=== PATIENT | female | born 1975 | race Caucasian/White ===

== ENCOUNTER 2018-07-02 19:15 | Emergency (ER) | payer MEDICAID, SELFPAY ==
[2018-07-02 19:15] VITALS: BP 89/65; PULSE 103; RESP 16; TEMP 36.8; O2SAT 99; BMI 27.4
[2018-07-02] MEDS: Ondansetron 4 MG/2 ML Vial IV (19:43)
[2018-07-02] MEDS: 0.9% Normal Saline 1,000 ML 1000 ML IV (19:43)
[2018-07-02] MEDS: Ketorolac 30 MG/ML Syringe IV (19:44)
[2018-07-02] MEDS: Dicyclomine 10 MG Capsule 20 MG PO (19:45)
[2018-07-02] MEDS: Fluconazole 100 MG Tablet 150 MG PO (19:46)
[2018-07-02 19:48] LABS: Absolute Lymphocyte Count 2.18 X10^3/ul (0.83-4.51); Absolute Neutrophil Count 13.1 X10^3/uL (2.0-7.7); Basophil# 0.05 X10^3/uL; Basophil% 0.3 % (0-1); Eosinophil# 0.97 X10^3/uL; Eosinophils% 5.5 % (0-5); Hemoglobin 12.2 g/dl (12.0-15.0); Lymphocyte # 2.18 X10^3/ul (4.0); Lymphocyte % 12.3 % (19-41); Mean Corp Hgb Conc 32.1 g/gl (32-36); Mean Corpuscular Hgb 29.7 pg (27.0-32.0); Mean Corpuscular Volume 92.5 fL (81-99); Mean Platelet Vol. 9.8 fl (6.2-12.0); Monocyte# 1.43 X10^3/uL; Monocyte% 8.1 % (0-10); Neutrophil # 13.09 X10^3/uL (2.7-7.7); Neutrophil % 73.6 % (47-70); POSITIVE COUNT NO; POSITIVE DIFFERENTIAL NO; POSITIVE MORPHOLOGY NO; Platelet Count 401 K/mm3 (150-450); RBC Distribution Width CV 14.9 % (11.6-14.6); RBC Distribution Width SD 50.6 fl (35.1-43.9); Red Blood Count 4.11 M/mm3 (4.2-5.4); White Blood Count 17.8 K/mm3 (4.4-11.0)
[2018-07-02 20:00] LABS: AST(SGOT) 16 U/L (15-37); Alanine Aminotransfer ALT/SGPT 25 U/L (13-56); Albumin, Serum 3.5 g/dL (3.2-5.0); Alkaline Phosphatase 103 U/L (45-117); Anion Gap 13 (5-15); BUN 8 mg/dL (7-18); BUN/Creat Ratio 8.2 RATIO (10-20); Bilirubin, Direct 0.12 mg/dL (0.00-0.30); Calcium,Total 8.5 mg/dL (8.5-10.1); Chloride 98 mmol/L (98-107); Creatinine, Serum 0.97 mg/dL (0.55-1.02); EST Glomerular Filtration Rate 67 mL/min (>60); Est Glom Filt Rate - Afr Amer 81 mL/min (>60); Globulin 3.6 g/dL (2.2-4.2); Glucose 85 mg/dL (74-106); Lipase 70 U/L (73-393); Potassium 3.5 mmol/L (3.5-5.1); Protein, Total 7.1 g/dL (6.4-8.2); Sodium Level 133 mmol/L (136-145)
[2018-07-02 20:20] LABS: Pregnancy, Serum, hCG Quali. NEGATIVE Negative (0-9 Nonpreg)
[2018-07-02 20:27] VITALS: BP 91/55; PULSE 86; RESP 18; O2SAT 99
[2018-07-02 20:41] VITALS: BP 108/85; PULSE 75; RESP 17; O2SAT 99
--- NOTE | 2018-07-02 20:48 | ED.VISSUMM ---
- ER Visit Summary Date of Service: 07/02/18 Chief Complaint: Abdominal pain History of Present Illness: The patient is a [address] Cohen and Vimal Tarango for pain management. She reports that she has had epigastric abdominal pain for approximately 1 year. States that it increased a week ago and is much worse since yesterday. Is a sharp pain is 10 out of 10 at worst a 10 currently. Is worsened by movement relieved by remaining still. She taken ibuprofen without relief. She has had nausea without vomiting. No diarrhea. Last bowel was yesterday. She has had no melena or hematochezia. No dysuria or frequency. Her last menstrual period was 1 week ago. Patient also reports that she has vaginal itching and believes that she has a yeast infection. She has not been on antibiotics recently. She does not douche. She denies any discharge. States that she has had these multiple times in the past. Physical Examination: Vitals: Stable. Afebrile. General: Well-nourished and well-developed. Head: Normocephalic atraumatic. Neck: Supple, no lymphadenopathy. No JVD. Nontender. Cardiovascular: Regular rate and rhythm. No murmurs. Respiratory: No respiratory distress. Clear to auscultation bilaterally. Abdominal: Soft, nontender, nondistended, normal bowel sounds. No guarding, rebound, or peritoneal signs. Back: Nontender. Extremities: Nontender, no edema. Skin: Normal color, no rash. Neurologic: Alert and oriented ?3. Cranial nerves II through XII are intact. Normal strength and sensation. Psych: Normal affect. Test Results: CBC is marked for a white count of 17.8 with 74 segmented neutrophils and 12 lymphocytes. Reviewing her labs she often has an elevated white count. Chem-7 is more for sodium 133. LFTs normal. Lipase negative. test is negative. Emergency Department Course and Treatment: Patient was treated with Bentyl, Toradol, Zofran, and Diflucan. She is resting comfortably. Treatment Plan: Patient be discharged instructions to follow-up with her primary care physician 1-2 days not improving. She believes that this is due to the mesh from a ventral hernia repair approximately 10 years ago. Return to the emergency department for any worsening symptoms. Disposition: To home in improved and stable condition. Impression: 1. Abdominal pain, uncertain cause. This note was generated with [employer] dictation software. It may contain incorrect words, spelling, and punctuation that were not noted in review of the chart prior to signing ED Disposition - Plan for ED Patient: Disposition: Home or Assisted Living Chief Complaint: Abd Pain Instructions: ED Abdominal Pain Unkn Cause Prescriptions: Ondansetron [Zofran Odt] 4 mg PO Q8H PRN PRN #10 tablet PRN Reason: Nausea Dicyclomine HCl [Bentyl] 20 mg PO TIDAC #20 capsule Referrals: Martinez Cohen MD [Primary Care Provider] - 1-2 Days if not improving
[2018-07-02 21:05] VITALS: BP 108/85; PULSE 75; RESP 17; O2SAT 99
== END 2018-07-02 21:06 | disposition home or self-care (01) ==
LOC: ED 19:46
PROVIDERS: Emergency Provider Emergency Medicine; Family Provider Family Medicine; PCP Family Medicine
DX: R10.13 Epigastric pain (principal); R11.0 Nausea; J44.9 Chronic obstructive pulmonary disease, unspecified; I10 Essential (primary) hypertension; E78.00 Pure hypercholesterolemia, unspecified; M54.9 Dorsalgia, unspecified; G89.29 Other chronic pain; F17.210 Nicotine dependence, cigarettes, uncomplicated; F32.9 Major depressive disorder, single episode, unspecified
CPT/HCPCS: 80048; 80076; 83690; 84703; 85025; 96361; 96374; 96375; 99284; J7030; A4216; J2405

== ENCOUNTER 2018-07-04 18:58 | Emergency (ER) | payer MEDICAID, SELFPAY ==
[2018-07-04 18:58] VITALS: BP 122/58; PULSE 100; RESP 16; TEMP 36.7; O2SAT 100; BMI 28.7
[2018-07-04 19:54] LABS: Bacteria 0 SEEN /hpf (None Seen); Mucous, Urine 0 SEEN /hpf (<or=2+)
[2018-07-04 19:57] LABS: Color, Urine Yellow (Yellow); Glucose, Dipstick Normal (Normal); Ketone-Dipstick Negative (Negative); Leukocyte Esterase-Dipstick 500 /ul (Negative); Nitrite-Dipstick Negative (Negative); Occult Blood-Urine 25 /ul (Negative); Protein-Dipstick Negative (Negative); Urine Bilirubin Dipstick Negative (Negative); Urine Urobilinogen Normal (Normal); Urine pH 6.5 (5.0 - 8.0)
[2018-07-04 20:02] LABS: Internal QC Validated? YES +Cl - CLEAR BKGD; Pregnancy, Urine Negative Negative
[2018-07-04 20:12] LABS: Red Blood Cells-Urine 0-5 SEEN /hpf (0-5); Squamous Epithelial Cells - UA 0-5 SEEN /hpf (5-10); White Blood Cells 5-10 SEEN /hpf (0-5)
[2018-07-04 20:13] LABS: Urine Clarity Sl Cldy (Clear)
[2018-07-04 21:24] LABS: Chlamydia Trachomatis by PCR Negative (Negative); Neisserai gonorrhoeae by PCR Negative (Negative); Probe Check PASS; Sample Adequacy Control PASS; Specimen Processing Control PASS
--- NOTE | 2018-07-04 21:33 | ED.RN ---
RESULT OF POSITIVE TRICHOMONAS REPORTED TO . VERBALIZED UNDERSTANDING
--- NOTE | 2018-07-04 21:35 | ED.VISSUMM ---
- ER Visit Summary Date of Service: 07/04/18 Chief Complaint: Vaginal discharge History of Present Illness: The patient is a 43 F who presents for vaginal discharge. She was seen in this emergency department several days ago and treated for presumed yeast infection. She said she has been taking topical medication and recently took Diflucan. Her symptoms have persisted. She is concerned for a sexually transmitted infection. She has a history of chlamydia. She also reports some abdominal cramping. Denies fever or systemic symptoms. Physical Examination: Patient is afebrile and vital signs are unremarkable. Nontoxic and in no acute distress. Abdomen soft and nontender. No guarding or rebound. Pelvic exam was chaperoned by the RN. She had a scant thin vaginal discharge. No bleeding or lesions noted. Test Results: Urinalysis showed elevated leukocytes and 5-10 white cells. No bacteria. test was negative. Urine culture pending. Gonorrhea and chlamydia pending. Patient did test positive for trichomonas. Emergency Department Course and Treatment: Patient will be treated with Flagyl to cover trichomonas. She also received Macrobid to cover for urinary tract infections. She has multiple antibiotic allergies including penicillins, cephalosporins, macrolides, and doxycycline. We will wait for the cultures to come back before adding additional antibiotic therapy. Patient voiced understanding and agreement with this plan. Safe sex practices discussed. Patient's partner will be treated as well. Treatment Plan: Above Disposition: Discharged Impression: 1. Vaginal discharge 2. Trichomoniasis This note was generated with [employer] dictation software. It may contain incorrect words, spelling, and punctuation that were not noted in review of the chart prior to signing ED Disposition - Plan for ED Patient: Chief Complaint: Complaint Referrals: Martinez Cohen MD [Primary Care Provider] -
[2018-07-04] MEDS: metroNIDAZOLE 500 MG Tablet 2000 MG PO (21:39)
[2018-07-04] MEDS: Nitrofurantoin Macrocrystals 100 MG Capsule PO (21:39)
--- NOTE | 2018-07-04 21:39 | ED.DEP ---
ED Disposition - Plan for ED Patient: Chief Complaint: Complaint Instructions: Vaginal Infection: Trichomoniasis Prescriptions: Nitrofurantoin Macrocrystals [Macrobid] 100 mg PO Q12 #10 cap Referrals: Martinez Cohen MD [Primary Care Provider] -
[2018-07-04 21:42] VITALS: RESP 16
== END 2018-07-04 21:42 | disposition home or self-care (01) ==
PROVIDERS: Emergency Provider Emergency Medicine; Family Provider Family Medicine; PCP Family Medicine
DX: N89.8 Other specified noninflammatory disorders of vagina (principal); A59.9 Trichomoniasis, unspecified; R30.0 Dysuria; Z72.0 Tobacco use
CPT/HCPCS: 81001; 81025; 87086; 87210; 87491; 87591; 99283

== ENCOUNTER 2018-11-20 18:27 | Emergency (ER) | payer MEDICAID, SELFPAY ==
[2018-11-20 18:28] VITALS: BP 104/72; PULSE 108; RESP 17; TEMP 36.8; O2SAT 98; BMI 25.4
[2018-11-20] MEDS: Acetaminophen 500 MG Tablet 1000 MG PO (20:11)
--- NOTE | 2018-11-20 20:24 | RAD_ITS ---
STUDY: X-RAY - LUMBAR SPINE REASON FOR EXAM: Female, 43 years old. Low back pain. TECHNIQUE: 2 view(s) of the lumbar spine were obtained. COMPARISON: 03/12/2015. FINDINGS: Normal lumbar lordosis. There is no substantial scoliosis. There is a normal alignment of the vertebrae. Normal vertebral bodies and endplates. Normal disc space heights. The soft tissue structures are unremarkable. RAD/Lumbar Spine 2 or 3 Views IMPRESSION: Normal x-ray examination of the lumbar spine. Electronically Signed: Camila Pineda MD at 21:20 EST Tel , Service support ,
--- NOTE | 2018-11-20 21:29 | ED.VISSUMM ---
- ER Visit Summary Date of Service: 11/20/18 Chief Complaint: Back pain History of Present Illness: The patient is a 43 F who presents with back pain that began yesterday. Patient states she had a fall recently and landed on her back. Patient states the pain is gradually gotten worse. Patient describes the pain as sharp, stabbing, and burning. Patient states the pain is worse with coughing. Patient states the pain does radiate to her right lower abdomen. Patient denies any nausea or vomiting. Patient denies any bowel or bladder changes. Patient denies any saddle anesthesia. Physical Examination: Vital signs are stable. Patient is afebrile. Patient is in no acute distress. Musculoskeletal exam reveals tenderness over the lumbar spine and paraspinal muscles. Range of motion was limited secondary to pain. Strength is 5/5 bilaterally upper and lower extremities. There are no sensory deficits noted. Deep tendon reflexes are 2+/4 bilaterally. Heart was regular rate and rhythm. Lungs are clear and equal bilateral. Abdomen is soft. Bowel sounds are normal. There is no tenderness. There is no guarding noted. Test Results: X-rays of the lumbar spine were obtained. There is no acute fracture or spondylolisthesis. Emergency Department Course and Treatment: Patient was given a dose of Flexeril here. She was given prescriptions for Naprosyn and Flexeril. Patient was instructed to follow-up with her primary care physician in 5-7 days. Patient understood and was agreeable with the plan. All questions were answered. Disposition: Discharge home Impression: Lumbar strain This note was generated with [employer] dictation software. It may contain incorrect words, spelling, and punctuation that were not noted in review of the chart prior to signing ED Disposition - Plan for ED Patient: Disposition: Home or Assisted Living Chief Complaint: Back Diagnosis: Lumbar strain Instructions: ED Sprain Strain Lumbar Prescriptions: Cyclobenzaprine [Flexeril] 10 mg PO QHS PRN PRN #10 tab PRN Reason: Muscle Spasm Naproxen [Naprosyn] 500 mg PO BID PRN #20 tab Referrals: Martinez Cohen MD [Primary Care Provider] -
[2018-11-20 22:08] VITALS: BP 120/88; PULSE 75; RESP 18; O2SAT 98
== END 2018-11-20 22:08 | disposition home or self-care (01) ==
PROVIDERS: Emergency Provider Emergency Medicine; Family Provider Family Medicine; PCP Family Medicine
DX: S39.012A Strain of muscle, fascia and tendon of lower back, initial encounter (principal); W19.XXXA Unspecified fall, initial encounter; Y93.9 Activity, unspecified; Y92.89 Other specified places as the place of occurrence of the external cause; Y99.9 Unspecified external cause status; I25.10 Atherosclerotic heart disease of native coronary artery without angina pectoris; F32.9 Major depressive disorder, single episode, unspecified; F17.210 Nicotine dependence, cigarettes, uncomplicated
CPT/HCPCS: 72100; 99283

== ENCOUNTER 2019-03-28 20:36 | Emergency (ER) | payer MEDICAID, SELFPAY ==
[2019-03-28 20:37] VITALS: BP 134/79; PULSE 80; RESP 16; TEMP 37.4; O2SAT 98; BMI 24.7
--- NOTE | 2019-03-28 20:42 | EKG12_ITS ---
Test Reason : CP Blood Pressure : / mmHG Vent. Rate : 087 BPM Atrial Rate : 087 BPM P-R Int : 132 ms QRS Dur : 090 ms QT Int : 368 ms P-R-T Axes : 050 026 051 degrees QTc Int : 442 ms Normal sinus rhythm Normal ECG Confirmed by RAJANI GREEN ([id number]), food editor SAMANTHA STORY ([id number]) on 04/05/2019 8:56:18 AM Referred By: ROCHELLE Confirmed By:RAJANI GREEN
--- NOTE | 2019-03-28 20:42 | RAD_ITS ---
STUDY: X-RAY CHEST REASON FOR EXAM: Female, 44 years old. Chest pain TECHNIQUE: Single AP portable view of the chest. COMPARISON: October 27, 2017 FINDINGS: The lungs are clear and expanded. There is no demonstrated pleural abnormality. Normal size heart. Normal mediastinum and filomena. Normal visualized pulmonary arteries. Normal visualized aortic arch and descending thoracic aorta. Normal visualized thoracic spine. Normal visualized ribs, clavicles, and shoulders. There is no demonstrated abnormality of the visualized soft tissue structures of the upper abdomen. RAD/Chest 1 View (Portable) IMPRESSION: Normal x-ray examination of the chest. Electronically Signed: Angel Luis Daley MD at 21:21 EDT , Service support ,
[2019-03-28 20:52] VITALS: O2SAT 100
[2019-03-28 21:08] LABS: Absolute Lymphocyte Count 4.11 X10^3/ul (0.83-4.51); Absolute Neutrophil Count 6.7 X10^3/uL (2.0-7.7); Basophil# 0.06 X10^3/uL; Basophil% 0.5 % (0-1); Eosinophil# 0.27 X10^3/uL; Eosinophils% 2.2 % (0-5); Hematocrit 37.9 % (37-47); Hemoglobin 12.4 g/dl (12.0-15.0); Lymphocyte # 4.11 X10^3/ul (4.0); Lymphocyte % 33.9 % (19-41); Mean Corp Hgb Conc 32.7 g/gl (32-36); Mean Corpuscular Hgb 27.7 pg (27.0-32.0); Mean Corpuscular Volume 84.6 fL (81-99); Mean Platelet Vol. 9.7 fl (6.2-12.0); Monocyte# 0.92 X10^3/uL; Monocyte% 7.6 % (0-10); Neutrophil # 6.74 X10^3/uL (2.7-7.7); Neutrophil % 55.6 % (47-70); Platelet Count 405 K/mm3 (150-450); RBC Distribution Width CV 16.1 % (11.6-14.6); RBC Distribution Width SD 49.6 fl (35.1-43.9); Red Blood Count 4.48 M/mm3 (4.2-5.4); White Blood Count 12.1 K/mm3 (4.4-11.0)
[2019-03-28 21:09] LABS: POSITIVE COUNT NO; POSITIVE DIFFERENTIAL NO; POSITIVE MORPHOLOGY NO
[2019-03-28 21:19] LABS: Anion Gap 5 (5-15); BUN 6 mg/dL (7-18); BUN/Creat Ratio 7.2 RATIO (10-20); Chloride 108 mmol/L (98-107); Creatinine, Serum 0.83 mg/dL (0.55-1.02); EST Glomerular Filtration Rate 80 mL/min (>60); Est Glom Filt Rate - Afr Amer 96 mL/min (>60); Estimated Creatinine Clearance 69.12 ml/min; Glucose 84 mg/dL (74-106); Potassium 3.6 mmol/L (3.5-5.1); Sodium Level 139 mmol/L (136-145)
[2019-03-28 21:40] VITALS: BP 145/117; PULSE 73; RESP 13; O2SAT 100
[2019-03-28 21:43] VITALS: BP 127/80
--- NOTE | 2019-03-28 21:43 | ED.VISSUMM ---
- ER Visit Summary Date of Service: 03/28/19 Chief Complaint: Chest pain History of Present Illness: The patient is a 44 F who presents with chest pain that began yesterday. Patient states the pain waxes and wanes. Patient states the pain radiates to the left side of her neck and into her left shoulder and to her left wrist. Patient states she has some shortness of breath with exertion. Patient admits to some palpitations and some nausea. Patient denies any vomiting. Patient denies any diaphoresis. Patient denies any fevers or chills. Patient has a history of hypertension, hypercholesterolemia, and a family history of coronary artery disease. Patient is a smoker. Patient has a history of pre-cervical cancer. Physical Examination: Vital signs are stable. Patient is afebrile. Patient is in no acute distress. Oral mucosa is pink and moist. Neck is supple. Trachea is midline. There is no JVD noted. Heart was regular rate and rhythm. Lungs are clear and equal bilateral. Abdomen is soft. Bowel sounds are normal. There is no tenderness. There is no guarding noted. Skin is warm dry. Cranial nerves II through XII are intact. There are no focal motor or sensory deficits noted. The remaining physical exam is within normal limits. Test Results: EKG showed normal sinus rhythm with a rate of 87. There are no acute ST or T wave changes. This is unchanged compared to previous EKG dated 10/27/2017. Portable chest x-ray does not show any acute cardiopulmonary process. CBC shows a mild leukocytosis of 12.1. Basic metabolic profile was normal. Troponin was normal. D-dimer was obtained and was normal. Emergency Department Course and Treatment: Patient was given aspirin. Patient has a HEART score of 3. Patient was advised that this is low risk for acute cardiac event. Patient was instructed to follow-up with her primary care physician in 5 to 7 days for further evaluation. Patient understood and was agreeable with the plan. All questions were answered. Disposition: Discharge home Impression: Chest pain This note was generated with [employer] dictation software. It may contain incorrect words, spelling, and punctuation that were not noted in review of the chart prior to signing ED Disposition - Plan for ED Patient: Disposition: Home or Assisted Living Diagnosis: Chest pain of uncertain etiology Instructions: ED Chest Pain Atypical Unkn Cause Referrals: Martinez Cohen MD [Primary Care Provider] - 5-7 Days
[2019-03-28 21:44] VITALS: BP 96/78; PULSE 82; RESP 16; O2SAT 100
[2019-03-28] MEDS: Aspirin 81 MG TAB.CHEW 324 MG PO (21:59)
[2019-03-28 22:16] LABS: D-Dimer Quantitative (DVT/PE) < 0.27 FEU/ug/m (0.27-0.49)
[2019-03-28 23:25] VITALS: BP 126/86; PULSE 80; RESP 12; O2SAT 99
== END 2019-03-28 23:27 | disposition home or self-care (01) ==
PROVIDERS: Emergency Provider Emergency Medicine; Family Provider Family Medicine; PCP Family Medicine
DX: R07.9 Chest pain, unspecified (principal); R51 Headache; M54.2 Cervicalgia; R05 Cough; R06.00 Dyspnea, unspecified; I10 Essential (primary) hypertension; E78.00 Pure hypercholesterolemia, unspecified; F17.210 Nicotine dependence, cigarettes, uncomplicated; Z82.49 Family history of ischemic heart disease and other diseases of the circulatory system
CPT/HCPCS: 71045; 80048; 84484; 85025; 85379; 93005; 99284; A4216

== ENCOUNTER 2019-04-12 06:53 | Day surgery (SDC) | payer MEDICAID, SELFPAY ==
--- NOTE | 2019-03-28 10:43 | HP.PCM_ITS ---
Problem List (1) Abnormal uterine bleeding (AUB) Status: Acute (2) Endometrium, polyp Status: Acute History and Physical Date of Admission: 04/12/19 Carla Win Physician [employer]ITOR H&P Signed Encounter Date: 03/28/2019 Expand All Collapse All Hide copied text Dinesh for details Bev Webb is a 44 year old female who presents for AUB. Pt was seen by Dr. Celis- w/u done for AUB- bleeding/spotting consistently. Found to have two large endometrial polyps. Pt would like to proceed with removal of polyps with Hysteroscopy, D&C with polypectomy using Symphion. Pt denies concerns today- denies CP, SOB, Dizziness. ? PAST?MEDICAL?HISTORY PAST MEDICAL HISTORY Diagnosis Date ? Abnormal mammogram, unspecified ? ? LEFT BREAST ? Abnormal Pap smear and cervical HPV (human papillomavirus) ? ? CAD (coronary artery disease) 2103 ? diffuse moderate CAD in the left main and RCA-40-50%, seeing Dr. Chase ? Chronic cholecystitis 08/24/07 ? Chronic depressive personality disorder ? ? Chronic gastric ulcer without mention of hemorrhage, perforation, without mention of obstruction ? ? Generalized anxiety disorder ? ? HTN (hypertension) ? ? Hyperlipidemia ? ? Incisional hernia without mention of obstruction or gangrene ? ? Irritable bowel syndrome ? ? Lumbago ? ? PONV (postoperative nausea and vomiting) ? ? Tobacco abuse ? ? PAST?SURGICAL?HISTORY PAST SURGICAL HISTORY Procedure Laterality Date ? APPENDECTOMY ? ? ? EGD W/O OR W/BRUSH/WASH ? 09/26/12 ? EGD ? ENDOMETRIAL BIOPSY ? 01/01/2009 ? Menorrhagia ? EXCIS BREAST LES W XRAY MARKER ? 08-29-09 ? left breast ? HEART CATHETERIZATION ? 2013 ? LAP CHOLECYSTECT/CHOLANGIOGRAPHY ? 08/24/07 ? LAPAROSCOPY, SURGICAL, APPENDECTOMY ? ? ? LIGATE FALLOPIAN TUBE ? ? ? PREOP PLACEMENT NEEDLE LOC ? 08-29-09 ? left breast ? REPAIR INCIS HERNIA W MESH ? 07/01/08 ? REPAIR INCISIONAL HERNIA,REDUCIBLE ? 07/01/08 ? REPAIR OF NASAL SEPTUM ? 2001 +/- ? Akhil ? STEREOTACTIC CORE BIOPSY ? 07/09/09 ? LEFT BREAST ? FAMILY?HISTORY FAMILY HISTORY Problem Relation Age of Onset ? Hypertension Mother ? ? Diabetes Mother ? ? Alcohol/Drug Father ? ? (cardiac issues from this) ? Diabetes Father ? ? Allergies Father ? ? Coronary Artery Disease Maternal Grandmother ? ? Diabetes Sister ? ? Diabetes Brother ? ? Colon Cancer Other ? ? mom with polyps ? SOCIAL?HISTORY Social History Socioeconomic History Marital status: Spouse name: Dariel Number of children: Stew Years of education: 12 Highest education level: Not on file Social Needs Financial resource strain: Not on file Food insecurity - worry: Not on file Food insecurity - inability: Not on file Transportation needs - medical: Not on file Transportation needs - non-medical: Not on file Occupational History Occupation: not employed Tobacco Use Smoking status: Current Every Day Smoker Packs/day: 1.00 Years: 15.00 Pack years: 15 Types: Cigarettes Smokeless tobacco: Never Used Tobacco comment: started age 16 Substance and Sexual Activity Alcohol use: No Drug use: Yes Types: Marijuana Sexual activity: Yes Partners: Male control/protection: Tubal Ligation Other Topics Concerns: Not on file Social History Narrative Not on file ? CURRENT?MEDICATIONS ? Current Outpatient Medications: norethindrone (AYGESTIN) 5 mg tablet Take 1 tablet by mouth three times daily. cyclobenzaprine (FLEXERIL) 10 mg tablet Take 1 tablet by mouth three times daily as needed. venlafaxine (EFFEXOR) 75 mg tablet TAKE ONE (1) TABLET IN THE MORNING AND TWO (2) TABLETS AT NIGHT potassium chloride ER (KLOR-CON M20) 20 mEq tablet Take 1 tablet by mouth once daily. amLODIPine (NORVASC) 5 mg tablet Take 1 tablet by mouth once daily. atorvastatin (LIPITOR) 40 mg tablet Take 1 tablet by mouth once daily. aspirin, enteric coated (ASPIRIN, ENTERIC COATED) 81 mg EC tablet Take 1 tablet by mouth once daily. nitroglycerin sublingual (NITROQUICK) 0.4 mg SL tablet Dissolve 1 tablet under the tongue every 5 minutes as needed for Chest Pain. albuterol HFA (VENTOLIN HFA) 90 mcg/actuation inhaler Inhale 2 Puffs as instructed every 4 hours as needed. For wheezing/shortness of breath. pantoprazole DR (PROTONIX) 40 mg tablet TAKE 1 TABLET BY MOUTH ON AN EMPTY STOMACH 1/2 HOUR BEFORE A MEAL TWICE DAILY cetirizine hcl(ZYRTEC 10 MG TAB) Take one(1) tablet daily. ibuprofen (MOTRIN) 600 mg tablet Take 1 tablet by mouth every 6 hours as needed. FOR PAIN. nicotine polacrilex (NICORETTE) 2 mg gum Take 1 Each by mouth every 2 hours as needed. 10-12 per day, max 24 / day busPIRone (BUSPAR) 10 mg tablet TAKE 1 TABLET BY MOUTH TWICE DAILY. ? No current facility-administered medications for this visit. Allergies As of Date: 03/28/2019 Allergen Noted Reaction DOXYCYCLINE 08/16/2006 ENTEX [PHENYLEPHRINE-GUAIFENESIN] 10/20/2006 ERYTHROMYCIN 08/16/2006 Shortness of Breath FLEXERIL [CYCLOBENZAPRINE HCL] 10/08/2011 Cough OMNICEF [CEFDINIR] 07/11/2014 GI Upset PENICILLIN G 08/16/2006 Intolerance RISPERDAL [RISPERIDONE] 08/16/2006 Swelling ULTRAM [TRAMADOL HCL] 08/16/2006 Swelling VALTREX [VALACYCLOVIR HCL] 08/16/2006 Rash ? Fully Assessed 03/28/2019 ? ? REVIEW OF SYSTEMS Abdomen: no pain Bladder: no dysuria.. Expanded ROS: GENERAL: Negative for fever Allergies and current medication updated:Yes ? EXAM: BP 100/60 Ht 5' 2.5 (1.59m) Wt 135 lb (61.2kg) LMP 03/23/2019 BMI 24.28 kg/(m^2). ? GENERAL: pleasant, female in no apparent distress HEENT: Normocephalic, atraumatic, mucus membranes moist and no lesions NECK: full range of motion DERMATOLOGY: Normal, without lesions, non-icteric and non-hirsute CARDIAC: regular rate and rhythm CHEST: Clear to auscultation Normal inspiratory effort NEURO: alert and oriented x3,exam grossly non-focal EXTREMITIES: normal ? Report Summary: Overall impression: uterus normal size. two small fibroids appreciated- 2.7 in greatest dimension appears to be posterior and subserosal, the other appears fundal and intramural measuring 3.2cm in greatest dimension. There are two endometrial polyps noted but appear at fundal aspect The endometrial thickness is 13.6mm. Right ovary has a simple cyst measuring 4.7mm in greatest dimension. Left ovary appears normal No free fluid in CDS. Recommendations / therapy: Consider hysteroscopic resection of polyps Simple cyst <5cm - unless she is symptomatic follow up is not necessary. Follow- up: F/u as clinically indicated. Indication: Abnormal Uterine Bleeding. History: Last menstrual period: 03/02/2019. 15th day of cycle. Gynecological Ultrasonography: Uterus: normal, anteverted. Size: Longitudinal 78 mm. Anterio- posterior 50 mm. Transverse 67 mm. Volume: 136.8 ml. Fibroids: Fibroid 1: Size: 32 mm x 26 mm x 27 mm. Type: anterior. Position: right fundus. Fibroid 2: Size: 27 mm x 21 mm x 24 mm. Type: posterior. Position: fundus. Endometrium: endometrium clearly visualized. Endometrium thickness total: 13.6 mm. Endometrial polyps: 2 polyps visualized. Polyp 1: 11 mm x 9 mm x 14 mm. Fundal. Polyp 2: 11 mm x 9 mm x 12 mm. Fundal. Right Ovary: normal. Visible. Morphology: normal morphology. Right Ovary size: 40 mm x 30 mm x 25 mm. Volume: 15.7 ml. Cysts Right Ovary: Cyst 1: Mean value: 29 mm. D1: 47 mm. D2: 20 mm. D3: 21 mm. Volume: 10 ml. Simple cyst. Left Ovary: normal. Visible. Morphology: normal morphology. Left Ovary size: 40 mm x 17 mm x 19 mm. Volume: 6.8 ml. Method: transvaginal ultrasound, color Doppler, 2 D, 3 D. Performed by:Krista Davila RDMS Read by:Carla Lacey MD ? ASSESSMENT AND PLAN: Encounter Diagnosis ? ? ICD-10-CM ? 1. Abnormal uterine bleeding (AUB) N93.9 ? 2. Endometrial polyp N84.0 ? ? 3. Consent obtained today for hysteroscopy, D&C, polypectomy with Symphion. Pt has been counseled on risks/benefits and alternatives of surgery including but not limited to anesthesia, bleeding, infection, injury to pelvic structures including bowel, bladder, ureters and vessels. Pt wishes to proceed with surgery at this time. 4. Motrin given for pain post op ? Carla Blanchard MD ?
[2019-04-12] VITALS (7 sets, daily range): BP systolic 120–134; BP diastolic 7–84; PULSE 60–71; RESP 14–18; TEMP 36.4–36.6; O2SAT 95–98; BMI 24.3
[2019-04-12 07:12] LABS: Internal QC Validated? YES +Cl - CLEAR BKGD; Pregnancy, Urine Negative Negative
--- NOTE | 2019-04-12 08:30 | EMB_PTH ---
PATIENT: IVAN JUDD LOC: [facility] U#:[id number] AGE/SX: 44/F ROOM: RE04/12/[address]: Dr. Carla Blanchard, MDDOB: 1975 BED: DIS: 04/12/2019 SPEC #: [id number] RECD: 04/12/19 10:48 STATUS: CLARK ANGEL #: [id number] HERIBERTO: 04/12/19 08:[address]: Carla Blanchard DEPT: SURGICAL PATHOLOGY RECD BY: Pablito Lindquist ENTERED: 04/12/19 13:33 SP TYPE: ENDOM BX/C OTHR DR: Dr. Martinez Cohen MD Tissues: Endometrium, NOS Procedures: Surgery Specimen Level IV HEADER OPERATION: Hysteroscopy, D&C Symphion, polypectomy PRE-OP DIAGNOSIS: Abnormal uterine bleeding, endometrial polyp TISSUE SUBMITTED: Endometrial curettings and polyp MICROSCOPIC DIAGNOSIS Endometrial curettings and polyp: Simple endometrial hyperplasia without atypia with focal glandular and stromal breakdown. RAFI:joo 04/13/19 MICROSCOPIC DESCRIPTION Slides are reviewed. GROSS DESCRIPTION Received in fixative is one container labeled with the patient's name and designated endometrial curettings and polyp. The specimen consists of multiple irregular fragments of light mo soft tissue that in aggregate measure 2.6 x 2.2 x 0.1 cm. The specimen is totally submitted in one cassette. / AM:joo 04/12/19 TC:5 CPT: 44013
--- NOTE | 2019-04-12 09:31 | PCM.OPRPT ---
Problem List (1) Abnormal uterine bleeding (AUB) Status: Acute (2) Endometrium, polyp Status: Acute Report of Operation Date of Procedure: 04/12/19 Pre-Operative Diagnosis: AUB, endometrial polyp Post-Operative Diagnosis: same Surgery/Procedure Performed:: Hysteroscopy, D&C, Polypectomy with Symphion Description of Surgical Findings:: Multiple small endometrial polyps noted. No other gross abnormalities of cavity. bilatera Tubal ostia visualized. Type of Anesthesia:: MAC Special Medications: none Specimen's removed: endometrial curettage, endometrial polyps Drains: none Estimated Blood Loss (mL): <5cc Fluids Replaced: 700 Description of Procedure: pt taken to OR - placed in supine positions. prepped and draped in normal sterile fashion. bladder drained 100cc urine expelled. weighted speculum placed in posterior fornix of vagina. anterior lip of cervix grasped with tenaculum. Uterus sounded to approximately 8cm. Gentle dilation was performed. was adequate dilatation was achieved the hysteroscope placed using normal saline as distention medium. upon inspection multiple small polyps noted- one at each aspect of cornua near ostia and one on left lateral aspect of uterine side wall. Gentle curettage performed using symhion device. No complications. procedure deemed complete and successful. cavity has no other gross abnormalities. Instrument and lap and count were correct x 2. no complications. I anticipate normal post op course. Grafts/Implants Used: none - Complications none - Admit VTE Documentation VTE Present on Admission: Yes VTE Mechan Device Prophylaxis: SCD's VTE Pharm Prophylaxis ordered?: No
--- NOTE | 2019-04-12 09:39 | DCINST_ITS ---
Discharge Diet: No Restrictions Discharge Activity: Return to Normal Activity, May Shower, May Take a Tub Bath - in 2 weeks. Allergies/Adverse Reactions: Allergies doxycycline Allergy (Verified 04/06/19 10:55) Unknown erythromycin base [Erythromycin Base] Allergy (Verified 04/06/19 10:55) Chest tightness Penicillins Allergy (Verified 04/06/19 10:55) Unknown tramadol HCl [From Ultram] Allergy (Verified 04/06/19 10:55) Swelling cefdinir [From Omnicef] Adverse Reaction (Verified 04/06/19 10:55) Other risperidone [From Risperdal] Adverse Reaction (Verified 04/06/19 10:55) Unknown valacyclovir HCl [From Valtrex] Adverse Reaction (Verified 04/06/19 10:55) Nausea Medications to take at Discharge Pantoprazole Sodium [Protonix] 40 mg PO BID 04/09/14 Venlafaxine HCl [Effexor] 75 mg PO TID 04/09/14 Aspirin [Aspirin EC] 81 mg PO DAILY 09/12/14 Potassium Cloride Effervescent [Potassium Cl 25 Meq Tab Eff] 25 meq PO DAILY #30 tablet.eff 03/06/17 cycloBENZAPRine HCl [Flexeril] 10 mg PO QHS PRN PRN #10 tab 11/20/18 Atorvastatin Calcium 40 mg PO QHS 03/28/19 Norethindrone Acetate 5 mg PO BID 03/28/19 Albuterol IH (ProAir) [Proair Hfa (SP)Vent Pts] 1 - 2 puff INHALATION Q6H PRN PRN 04/06/19 Amlodipine [Norvasc] 5 mg PO QHS 04/06/19 Naproxen [Naprosyn] 500 mg PO BID PRN PRN 04/06/19 Primary Care Physician: Martinez Cohen MD [Primary Care Provider] - Test Results: Test results from this visit will be discussed in further detail at your follow- up appointment, if applicable.
[2019-04-12] MEDS: HYDROcodone Bitartrate/Apap 5/325 Tablet PO (10:42)
== END 2019-04-12 11:10 | disposition home or self-care (01) ==
LOC: SDC 06:53 → AC 06:54
PROVIDERS: Anesthesiology; Family Provider Family Medicine; PCP Family Medicine; Referring Provider Obstetrics & Gynecology; Visit Provider Obstetrics & Gynecology
PROC: 0UB98ZZ Excision of Uterus, Via Natural or Artificial Opening Endoscopic (ICD-10-PCS; CPT 58558; principal; 2019-04-12 08:15)
DX: N85.01 Benign endometrial hyperplasia (principal); N93.9 Abnormal uterine and vaginal bleeding, unspecified; N84.0 Polyp of corpus uteri; F17.210 Nicotine dependence, cigarettes, uncomplicated; I10 Essential (primary) hypertension; E78.5 Hyperlipidemia, unspecified; I25.10 Atherosclerotic heart disease of native coronary artery without angina pectoris; F41.1 Generalized anxiety disorder; K58.9 Irritable bowel syndrome, unspecified; J44.9 Chronic obstructive pulmonary disease, unspecified
CPT/HCPCS: 58558; 81025; 88305; J7120

== ENCOUNTER 2019-09-05 11:39 | Emergency (ER) | payer OTHER, MEDICAID, SELFPAY ==
[2019-04-12 07:18] VITALS: BMI 24.3
[2019-09-05 11:39] VITALS: BP 145/79; PULSE 86; RESP 16; TEMP 36.6; O2SAT 98; BMI 25.0
--- NOTE | 2019-09-05 12:09 | ED.VISSUMM ---
- ER Visit Summary Date of Service: 09/05/19 Chief Complaint: Left small finger laceration History of Present Illness: The patient is a 44 F medical history of MIs and depression. Patient is right-hand dominant. She was using a box spring frame builder and lacerated the end of her left small finger on the palmar aspect within the last hour. Unsure of her last tetanus shot she thinks it may be up-to-date wants to check with her primary care physician's office. Denies other injuries. Physical Examination: Middle-aged female no acute distress. Vital signs are stable afebrile. H EENT exam unremarkable. Lungs clear to auscultation. Heart regular rhythm no murmur. Abdomen soft. Extremities moves all 4. Neurovascular intact. Palmar aspect distal end her left small finger there is a 2 and half centimeter laceration that needs repaired. It does gape. There is oozing of blood. No foreign body. No signs of infection. She has full flexion extension of left small finger. Normal touch sensation. No motor or sensory deficits. No bony deformity. Test Results: None Emergency Department Course and Treatment: Procedure note: Left small finger laceration with ER repair. Local anesthetic with lidocaine. Wound explored. Washed and irrigated. Closed using simple interrupted 5-0 Ethilon sutures. Proper hemostasis wound closure was obtained. Patient tolerated procedure well. I placed 4 simple interrupted 5-0 Ethilon sutures. Digital block was performed with good anesthesia. Treatment Plan: Wound care. Suture removal 7 to 10 days. Disposition: Discharge Impression: Left small finger laceration ER repair 2.5 cm. Worker's comp injury This note was generated with [employer] dictation software. It may contain incorrect words, spelling, and punctuation that were not noted in review of the chart prior to signing ED Disposition - Plan for ED Patient: Disposition: Home or Assisted Living Instructions: LACERATION, Hand Referrals: Martinez Cohen MD [Primary Care Provider] - 10 Day for suture removal Additional Instructions: Keep wound clean and dry. Apply antibiotic ointment daily. Watch for any signs of infection such as redness, streaks, swelling or pus. Is seen return. Suture removal in no less than 7 up to 10 days. Tylenol for pain.
--- NOTE | 2019-09-05 12:11 | ED.DEP ---
ED Disposition - Plan for ED Patient: Disposition: Home or Assisted Living Instructions: LACERATION, Hand Referrals: Martinez Cohen MD [Primary Care Provider] - 10 Day for suture removal Additional Instructions: Keep wound clean and dry. Apply antibiotic ointment daily. Watch for any signs of infection such as redness, streaks, swelling or pus. Is seen return. Suture removal in no less than 7 up to 10 days. Tylenol for pain.
[2019-09-05 12:41] VITALS: PULSE 84; RESP 17; O2SAT 97
== END 2019-09-05 12:52 | disposition home or self-care (01) ==
LOC: ED 12:50
PROVIDERS: Emergency Provider Emergency Medicine; Family Provider Family Medicine; PCP Family Medicine
DX: S61.217A Laceration without foreign body of left little finger without damage to nail, initial encounter (principal); W26.8XXA Contact with other sharp object(s), not elsewhere classified, initial encounter; Y93.9 Activity, unspecified; Y92.89 Other specified places as the place of occurrence of the external cause; Y99.0 Civilian activity done for income or pay; Z72.0 Tobacco use; I25.2 Old myocardial infarction; F32.9 Major depressive disorder, single episode, unspecified
CPT/HCPCS: 12001; 99284

== ENCOUNTER 2019-12-04 12:36 | Emergency (ER) | payer MEDICAID, SELFPAY ==
[2019-09-14 16:38] VITALS: BMI 25.0
[2019-12-04 12:37] VITALS: BP 173/105; PULSE 77; RESP 20; TEMP 36.6; O2SAT 100; BMI 25.6
--- NOTE | 2019-12-04 13:01 | CT_ITS ---
STUDY: CT ABDOMEN AND PELVIS WITHOUT CONTRAST REASON FOR EXAM: Female, 44 years old. RT SIDE ABD PAIN RADIATES INTO FLANK. H/O APPY, LUKE RADIATION DOSAGE (If Supplied By Facility): CTDIvol = ( 6.09 ) mGy, DLP = ( 290.73 ) mGycm TECHNIQUE: Transaxial images were obtained from the dome of the diaphragm to the symphysis pubis without oral contrast, and without intravenous contrast. Sagittal and coronal images were reconstructed. Individualized dose optimization techniques were used for this CT. COMPARISON: Comparison is made with prior study dated August 13, 2012. FINDINGS: The visualized lung bases are unremarkable. The visualized portions of the heart are within normal limits. Normal liver. The patient is status post cholecystectomy. Normal spleen. Normal pancreas. Normal bilateral adrenal glands. Normal right kidney. Normal left kidney. Normal visualized stomach. Normal small intestine. Normal colon. The patient is status post appendectomy. There is scattered atherosclerotic calcification of the abdominal aorta, without a demonstrated aneurysm. Normal inferior vena cava. Normal retroperitoneum. Normal urinary bladder. IUD is seen within the uterus. Bilateral tubal ligation clips are once again seen. Normal abdominal wall. Normal osseous structures. CT/Abdomen/Pelvis without Cont IMPRESSION: No acute abnormality is present. Electronically Signed: Vijay Varma, at 14:30 EST , Service support ,
[2019-12-04 13:12] LABS: Absolute Lymphocyte Count 2.65 X10^3/uL (0.83-4.51); Absolute Neutrophil Count 4.1 X10^3/uL (2.0-7.7); Basophil# 0.05 X10^3/uL; Basophil% 0.7 % (0-1); Eosinophil# 0.28 X10^3/uL; Eosinophils% 3.7 % (0-5); Hemoglobin 12.3 g/dL (12.0-15.0); Lymphocyte # 2.65 X10^3/ul (4.0); Lymphocyte % 34.8 % (19-41); Mean Corp Hgb Conc 31.5 g/dL (32-36); Mean Corpuscular Hgb 28.6 pg (27.0-32.0); Mean Corpuscular Volume 90.7 fL (81-99); Mean Platelet Vol. 8.9 fl (6.2-12.0); Monocyte% 6.6 % (0-10); NRBC Flagged by Analyzer 0 % (0-5); Neutrophil % 53.8 % (47-70); Platelet Count 440 K/mm3 (150-450); RBC Distribution Width CV 17.8 % (11.6-14.6); RBC Distribution Width SD 59.3 fl (35.1-43.9); White Blood Count 7.6 K/mm3 (4.4-11.0)
[2019-12-04 13:16] VITALS: BP 151/102; PULSE 71; RESP 16; O2SAT 99
[2019-12-04] MEDS: Ketorolac 30 MG/ML Syringe IV (13:20)
[2019-12-04] MEDS: Morphine 4 MG/ML Syringe IV (13:20)
[2019-12-04] MEDS: Ondansetron 4 MG/2 ML Vial IV (13:20)
[2019-12-04] MEDS: 0.9% Normal Saline 1,000 ML 999 ML IV (13:23)
[2019-12-04 13:29] LABS: ALB/GLOB Ratio 0.9 RATIO (0.9-2.4); AST(SGOT) 11 U/L (15-37); Alanine Aminotransfer ALT/SGPT 16 U/L (13-56); Albumin, Serum 3.1 g/dL (3.2-5.0); Alkaline Phosphatase 112 U/L (45-117); Anion Gap 5 (5-15); BUN 5 mg/dL (7-18); BUN/Creat Ratio 6.6 RATIO (10-20); Calcium,Total 8.7 mg/dL (8.5-10.1); Chloride 108 mmol/L (98-107); Creatinine, Serum 0.76 mg/dL (0.55-1.02); EST Glomerular Filtration Rate 89 mL/min (>60); Est Glom Filt Rate - Afr Amer 107 mL/min (>60); Estimated Creatinine Clearance 75.49 ml/min; Globulin 3.4 g/dL (2.2-4.2); Glucose 85 mg/dL (74-106); Potassium 3.6 mmol/L (3.5-5.1); Protein, Total 6.5 g/dL (6.4-8.2); Sodium Level 140 mmol/L (136-145); Total Bilirubin < 0.10 mg/dL (0.20-1.00)
[2019-12-04 13:58] LABS: Internal QC Validated? YES +Cl - CLEAR BKGD; Pregnancy, Serum, hCG Quali. NEGATIVE Negative
--- NOTE | 2019-12-04 16:15 | ED.VIS.GEN ---
History of Present Illness Chief Complaint: Abd Pain Informant: Patient Onset: Yesterday Timing: Continuous Narrative: Patient presents with right-sided abdominal pain it is pelvic. She has no vaginal bleeding no dyspareunia. She has no vaginal discharge. She has some flank pain associated with this. She has no dysuria or hematuria. Pain is mild to moderate. Past Medical History - Allergies and Home Meds Allergies/Adverse Reactions: Allergies doxycycline Allergy (Verified 12/04/19 12:40) Unknown erythromycin base [Erythromycin Base] Allergy (Verified 12/04/19 12:40) Chest tightness Penicillins Allergy (Verified 12/04/19 12:40) Unknown tramadol HCl [From Ultram] Allergy (Verified 12/04/19 12:40) Swelling cefdinir [From Omnicef] Adverse Reaction (Verified 12/04/19 12:40) Other risperidone [From Risperdal] Adverse Reaction (Verified 12/04/19 12:40) Unknown valacyclovir HCl [From Valtrex] Adverse Reaction (Verified 12/04/19 12:40) Nausea Primary Care Physician: Martinez Cohen MD [Primary Care Provider] - Prior records reviewed: No Surgical History: cholecystectomy, - Smoking Status: Current every day smoker Review of Systems All systems negative except as indicated General: Denies: Fever Cardiovascular: Denies: Chest pain Respiratory: Denies: Dyspnea, Cough Gastrointestinal: Reports: Abdominal pain. Denies: Nausea, Vomiting, Diarrhea, Constipation Genitourinary: Denies: Dysuria Musculoskeletal: Reports: Back pain. Denies: Myalgias Skin: Denies: Rash, Wounds Neurological: Denies: Weakness Psych: Denies: Depression Hematologic: Denies: Easy bruising Physical Exam Vital Signs/Narrative: Vital Signs Temp Pulse Resp BP Pulse Ox 12/04/19 13:16 71 16 151/102 H 99 12/04/19 12:37 97.8 F 77 20 H 173/105 H 100 General: Well nourished, Well developed, - - She appears in slight distress ENT: Moist mucous membranes, No rhinorrhea Neck: Supple, Nontender Cardiovascular: Regular rate, Regular rhythm Respiratory: No distress, CTA bilaterally, Chest nontender Abdomen: Soft, - - There is some flank pain, there is also some right lower abdominal pain. There is no guarding or rebound. Rectal: Deferred Back: Normal Inspection, CVA tenderness Extremities: Nontender, No edema Skin: Normal color Neurological: Alert, Oriented x3, Normal Sensation Psychological: Normal affect Diagnostic/Tx/Re-eval - Medical Decision Making CT of the abdomen pelvis, normal blood work, this may be pelvic in etiology she is to follow-up with her [employer] doctor. ED Disposition - Plan for ED Patient: Disposition: Home or Assisted Living Instructions: ABDOMINAL PAIN, Unknown Cause, (Female) Prescriptions: Naproxen [Naprosyn] 500 mg PO BID PRN #20 tab Prescription Printed Referrals: Martinez Cohen MD [Primary Care Provider] - 3-5 Days
[2019-12-04 16:16] LABS: Bacteria 0 SEEN /hpf (None Seen); Mucous, Urine 0 SEEN /hpf (<or=2+); White Blood Cells 0 SEEN /hpf (0-5)
[2019-12-04 16:20] LABS: Color, Urine Yellow (Yellow); Glucose, Dipstick Normal (Normal); Ketone-Dipstick Negative (Negative); Leukocyte Esterase-Dipstick Negative /ul (Negative); Nitrite-Dipstick Negative (Negative); Occult Blood-Urine 250 /ul (Negative); Protein-Dipstick Negative (Negative); Urine Bilirubin Dipstick Negative (Negative); Urine Clarity Sl. Cloudy (Clear); Urine Urobilinogen Normal (Normal)
[2019-12-04 16:29] LABS: Red Blood Cells-Urine 5-10 SEEN /hpf (0-5)
[2019-12-04 16:30] LABS: Squamous Epithelial Cells - UA 0-5 SEEN /hpf (5-10)
--- NOTE | 2019-12-04 16:35 | ED.DEP ---
ED Disposition - Plan for ED Patient: Disposition: Home or Assisted Living Instructions: ABDOMINAL PAIN, Unknown Cause, (Female) Prescriptions: Naproxen [Naprosyn] 500 mg PO BID PRN #20 tab Prescription Printed Hydrocodone Bitart/Apap 5-325 [[place] 5MG-325MG] 1 tab PO Q4H PRN PRN 2 Days #10 tab PRN Reason: Pain Prescription Printed Referrals: Martinez Cohen MD [Primary Care Provider] - 3-5 Days
[2019-12-04 16:54] VITALS: BP 154/84; PULSE 74; RESP 16; O2SAT 99
== END 2019-12-04 16:56 | disposition home or self-care (01) ==
PROVIDERS: Emergency Provider Emergency Medicine; PCP Family Medicine
DX: R10.9 Unspecified abdominal pain (principal); F17.200 Nicotine dependence, unspecified, uncomplicated; Z88.0 Allergy status to penicillin; Z88.1 Allergy status to other antibiotic agents; Z88.8 Allergy status to other drugs, medicaments and biological substances; Z90.49 Acquired absence of other specified parts of digestive tract
CPT/HCPCS: 74176; 80053; 81001; 84703; 85025; 96361; 96374; 96375; 99283; J7030; A4216; J2405

== ENCOUNTER 2020-04-14 13:13 | Emergency (ER) | payer MEDICAID, SELFPAY ==
[2020-04-14 13:13] VITALS: BP 154/109; PULSE 92; RESP 18; TEMP 36.7; O2SAT 97; BMI 23.6
[2020-04-14 13:39] VITALS: PULSE 78; RESP 15; O2SAT 99
--- NOTE | 2020-04-14 13:48 | EKG12_ITS ---
Test Reason : CP Blood Pressure : / mmHG Vent. Rate : 079 BPM Atrial Rate : 079 BPM P-R Int : 132 ms QRS Dur : 090 ms QT Int : 408 ms P-R-T Axes : 049 029 052 degrees QTc Int : 467 ms Normal sinus rhythm Normal ECG Confirmed by MIKE FERNANDO MD ([id number]), video effects editor AZEEM BRADLEY ([id number]) on 04/15/2020 10:03:44 AM Referred By: ROCHELLE Confirmed By:MIKE FERNANDO MD
[2020-04-14] MEDS: Acetaminophen 500 MG Tablet 1000 MG PO (14:00)
[2020-04-14] MEDS: Aspirin 81 MG TAB.CHEW 324 MG PO (14:00)
[2020-04-14] MEDS: hydrOXYzine PAM 25 MG Capsule PO (14:01)
[2020-04-14 14:05] LABS: Absolute Lymphocyte Count 2.83 X10^3/uL (0.83-4.51); Absolute Neutrophil Count 6.6 X10^3/uL (2.0-7.7); Basophil# 0.06 X10^3/uL; Basophil% 0.6 % (0-1); Eosinophil# 0.18 X10^3/uL; Eosinophils% 1.7 % (0-5); Hematocrit 42.5 % (37-47); Hemoglobin 13.6 g/dL (12.0-15.0); Lymphocyte # 2.83 X10^3/ul (4.0); Lymphocyte % 26.6 % (19-41); Mean Corpuscular Hgb 30.2 pg (27.0-32.0); Mean Corpuscular Volume 94.2 fL (81-99); Mean Platelet Vol. 9.1 fl (6.2-12.0); Monocyte# 0.94 X10^3/uL; Monocyte% 8.8 % (0-10); NRBC Flagged by Analyzer 0 % (0-5); Neutrophil # 6.57 X10^3/uL (2.7-7.7); Neutrophil % 61.8 % (47-70); POSITIVE MORPHOLOGY YES; Platelet Count 365 K/mm3 (150-450); RBC Distribution Width CV 19.1 % (11.6-14.6); RBC Distribution Width SD 65.4 fl (35.1-43.9); Red Blood Count 4.51 M/mm3 (4.2-5.4); White Blood Count 10.6 K/mm3 (4.4-11.0)
--- NOTE | 2020-04-14 14:10 | RAD_ITS ---
STUDY: X-RAY CHEST REASON FOR EXAM: Female, 45 years old. Chest pain x 2 weeks, Hx smoker TECHNIQUE: Single AP portable view of the chest. COMPARISON: Comparison is made with prior examination dated March 28, 2019. FINDINGS: EKG electrodes are seen. The lungs are clear and expanded. There is no demonstrated pleural abnormality. Normal size heart. Normal mediastinum and filomena. Normal visualized pulmonary arteries. Normal visualized aortic arch and descending thoracic aorta. Normal visualized thoracic spine. Normal visualized ribs, clavicles, and shoulders. There is no demonstrated abnormality of the visualized soft tissue structures of the upper abdomen. RAD/Chest 1 View (Portable) IMPRESSION: Normal x-ray examination of the chest. Electronically Signed: Vijay Varma, at 14:22 EDT , Service support ,
--- NOTE | 2020-04-14 14:14 | ED.VISSUMM ---
- ER Visit Summary Date of Service: 04/14/20 Chief Complaint: Chest pain History of Present Illness: The patient is a 45 F who presents with chest pain that is been intermittent over the past 2 weeks. Patient states the pain only last for a few seconds. Patient states the pain starts in her substernal area and radiates to her left upper chest and into her left arm. Patient states nothing makes it better or worse. Patient admits to some nausea but denies any vomiting. Patient admits to some reflux symptoms. Patient also admits to some palpitations. Patient denies any diaphoresis or shortness of breath. Patient denies any cough or fever. Patient denies any lightheadedness or dizziness. Patient also admits to some pain over her left ear and anterior to her left ear. Physical Examination: Vital signs are stable. Patient is afebrile. Patient is in no acute distress. Oral mucosa is pink and moist. Neck is supple. Trachea is midline. There is no JVD noted. Heart was regular rate and rhythm. Lungs are clear and equal bilaterally. Abdomen is soft. Bowel sounds are normal. There is no tenderness. There is no rebound or guarding noted. Skin is warm dry. Cranial nerves II through XII are intact. There are no focal motor or sensory deficits noted. Extremities are intact. There is no calf tenderness or edema. Test Results: EKG showed normal sinus rhythm with a rate of 79. There are no acute ST or T wave changes. Portable chest x-ray was obtained. There is no acute cardiopulmonary process. This was interpreted by the radiologist and myself. CBC was normal. Comprehensive metabolic profile showed a potassium of 2.8. Troponin was normal. Serum hCG was negative. Emergency Department Course and Treatment: Patient was given aspirin here. Patient was given potassium replacement both oral and IV. Patient was also given a dose of Vistaril and Tylenol. Patient was feeling better on reevaluation. Patient has a HEART score of 2. Patient was advised that this is low risk for acute cardiac event. Patient believes that her chest pain is all anxiety related. Patient was instructed to follow-up with her primary care physician in 5 to 7 days. Patient was instructed return if worse in any way. Patient understood and was agreeable with the plan. All questions were answered. Disposition: Discharge home Impression: 1. Chest pain This note was generated with [employer] software. It may contain incorrect words, spelling, and punctuation that were not noted in review of the chart prior to signing ED Disposition - Plan for ED Patient: Disposition: Home or Assisted Living Diagnosis: Chest pain Instructions: ED Chest Pain Atypical Unkn Cause Referrals: Martinez Cohen MD [Primary Care Provider] - 5-7 Days
[2020-04-14 14:20] LABS: AST(SGOT) 12 U/L (15-37); Alanine Aminotransfer ALT/SGPT 17 U/L (13-56); Albumin, Serum 3.5 g/dL (3.2-5.0); Alkaline Phosphatase 108 U/L (45-117); Anion Gap 4 (5-15); BUN 5 mg/dL (7-18); BUN/Creat Ratio 7.1 RATIO (10-20); Calcium,Total 8.8 mg/dL (8.5-10.1); Chloride 108 mmol/L (98-107); EST Glomerular Filtration Rate 96 mL/min (>60); Est Glom Filt Rate - Afr Amer 116 mL/min (>60); Estimated Creatinine Clearance 81.11 ml/min; Globulin 3.5 g/dL (2.2-4.2); Glucose 91 mg/dL (74-106); Potassium 2.8 mmol/L (3.5-5.1); Sodium Level 143 mmol/L (136-145)
[2020-04-14 14:27] LABS: Differential Indicated SCAN CRITERIA MET
[2020-04-14 14:30] LABS: Internal QC Validated? YES +Cl - CLEAR BKGD; Pregnancy, Serum, hCG Quali. NEGATIVE Negative
[2020-04-14] MEDS: Potassium Chloride 10mEq/100mL 10 MEQ/100 ML IV.SOLN. 100 MEQ IV BOLUS (14:38)
[2020-04-14 15:09] LABS: Anisocytosis 1+; Red Cell Morphology N CHROM NORMAL (NORM C&C)
[2020-04-14 15:51] VITALS: BP 164/99; PULSE 64; RESP 20; O2SAT 97
[2020-04-14 15:54] VITALS: BP 164/99; PULSE 64; RESP 20; O2SAT 97
== END 2020-04-14 16:00 | disposition home or self-care (01) ==
PROVIDERS: Emergency Provider Emergency Medicine; PCP Family Medicine
DX: R07.9 Chest pain, unspecified (principal); I10 Essential (primary) hypertension; E78.00 Pure hypercholesterolemia, unspecified; F32.9 Major depressive disorder, single episode, unspecified; Z72.0 Tobacco use; Z79.899 Other long term (current) drug therapy
CPT/HCPCS: 71045; 80053; 84484; 84703; 85025; 93005; 96360; 99285; J7030; A4216

== ENCOUNTER 2020-05-23 13:49 | Emergency (ER) | payer MEDICAID, SELFPAY ==
[2020-05-23 13:50] VITALS: BP 137/93; PULSE 80; RESP 16; TEMP 36.6; O2SAT 98; BMI 23.3
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
[2020-05-23] MEDS: Ketorolac 60 MG/2 ML Vial IM (14:17)
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
== END 2020-05-23 15:00 | disposition home or self-care (01) ==
LOC: ED 14:46
PROVIDERS: Emergency Provider Emergency Medicine; PCP Family Medicine
DX: M25.522 Pain in left elbow (principal); J44.9 Chronic obstructive pulmonary disease, unspecified; E78.00 Pure hypercholesterolemia, unspecified; F17.210 Nicotine dependence, cigarettes, uncomplicated; F32.9 Major depressive disorder, single episode, unspecified
CPT/HCPCS: 73080; 99283

== ENCOUNTER 2020-06-17 14:53 | Observation (INO) | payer MEDICAID, SELFPAY ==
[2020-06-17 14:54] VITALS: BP 147/85; PULSE 82; RESP 18; TEMP 37.2; O2SAT 98; BMI 24.5
--- NOTE | 2020-06-17 15:11 | ED.DCSUM_ITS ---
- ER Visit Summary Date of Service: 06/17/20 Chief Complaint: Weakness and fatigue History of Present Illness: The patient is a 45 F who presents with weakness and fatigue that began yesterday. Patient states she started having diarrhea yesterday. Patient states she woke up yesterday and was feeling weak and achy all over. Patient states it became worse today. Patient states this feels similar to prior episodes of dehydration and hypokalemia. Patient admits to muscle aches and body aches. Patient admits to subjective chills but denies any fevers. Patient denies any nausea or vomiting. Patient denies any melena or hematochezia. Patient admits to a cough but states she is a smoker. Physical Examination: Vital signs are stable. Patient is afebrile. Patient is in no acute distress. Oral mucosa is pink and moist. Neck is supple. Trachea is midline. There is no JVD noted. Heart was regular rate and rhythm. Lungs are clear and equal bilaterally. Abdomen is soft. Bowel sounds are normal. There is no tenderness. There is no rebound or guarding noted. Skin is warm dry. Cranial nerves II through XII are intact. There are no focal motor or sensory deficits noted. Extremities are intact. There is no calf tenderness or edema. Test Results: CBC shows a leukocytosis of 22.2. Comprehensive metabolic profile showed a potassium of 2.9. Lactate was normal. Lipase was normal. hCG was negative. Chest x-ray shows a left lower lobe infiltrate. This was interpreted by the radiologist and reviewed by myself. COVID swab was obtained and is negative. Cultures were obtained and are pending. Emergency Department Course and Treatment: Patient was given a dose of Toradol initially. Patient was given a dose of oral potassium. Patient was also given a dose of IV potassium. Patient was started on Levaquin due to her allergies to penicillin and cephalosporins. Patient was given a dose of Tylenol. Case was discussed with the hospitalist, Dr. Woodall. She will admit the patient to the C OVID unit. Disposition: Admit to hospital Impression: 1. Pneumonia 2. Sepsis 3. Hypokalemia 4. Leukocytosis This note was generated with [employer] software. It may contain incorrect words, spelling, and punctuation that were not noted in review of the chart prior to signing ED Disposition - Plan for ED Patient: Disposition: Acute Care Hospital [facility] Diagnosis: Pneumonia, Sepsis, Hypokalemia, Leukocytosis
[2020-06-17] MEDS: 0.9% Normal Saline 1,000 ML 1000 ML IV (15:30)
[2020-06-17 15:47] LABS: Absolute Lymphocyte Count 2.16 X10^3/uL (0.83-4.51); Absolute Neutrophil Count 18.6 X10^3/uL (2.0-7.7); Basophil# 0.07 X10^3/uL; Basophil% 0.3 % (0-1); Eosinophil# 0.23 X10^3/uL; Hematocrit 37.8 % (37-47); Hemoglobin 12.3 g/dL (12.0-15.0); Lymphocyte # 2.16 X10^3/ul (4.0); Lymphocyte % 9.7 % (19-41); Mean Corp Hgb Conc 32.5 g/dL (32-36); Mean Corpuscular Hgb 31.8 pg (27.0-32.0); Mean Corpuscular Volume 97.7 fL (81-99); Mean Platelet Vol. 9.7 fl (6.2-12.0); Monocyte# 1.01 X10^3/uL; Monocyte% 4.5 % (0-10); NRBC Flagged by Analyzer 0 % (0-5); Neutrophil # 18.59 X10^3/uL (2.7-7.7); Neutrophil % 83.9 % (47-70); Platelet Count 389 K/mm3 (150-450); RBC Distribution Width CV 16.9 % (11.6-14.6); Red Blood Count 3.87 M/mm3 (4.2-5.4); White Blood Count 22.2 K/mm3 (4.4-11.0)
[2020-06-17 16:01] LABS: ALB/GLOB Ratio 0.8 RATIO (0.9-2.4); AST(SGOT) 13 U/L (15-37); Alanine Aminotransfer ALT/SGPT 13 U/L (13-56); Albumin, Serum 2.9 g/dL (3.2-5.0); Alkaline Phosphatase 102 U/L (45-117); Anion Gap 5 (5-15); BUN 5 mg/dL (7-18); BUN/Creat Ratio 7.2 RATIO (10-20); Calcium,Total 8.7 mg/dL (8.5-10.1); Chloride 107 mmol/L (98-107); EST Glomerular Filtration Rate 97 mL/min (>60); Est Glom Filt Rate - Afr Amer 117 mL/min (>60); Estimated Creatinine Clearance 81.11 ml/min; Globulin 3.5 g/dL (2.2-4.2); Glucose 110 mg/dL (74-106); Lipase 35 U/L (73-393); Potassium 2.9 mmol/L (3.5-5.1); Protein, Total 6.4 g/dL (6.4-8.2); Sodium Level 141 mmol/L (136-145)
[2020-06-17 16:12] VITALS: BP 139/85; PULSE 88; RESP 20; TEMP 37.7; O2SAT 99
[2020-06-17 17:00] LABS: Internal QC Validated? YES +Cl - CLEAR BKGD; Pregnancy, Serum, hCG Quali. NEGATIVE Negative
--- NOTE | 2020-06-17 17:30 | RAD_ITS ---
STUDY: X-RAY CHEST REASON FOR EXAM: Female, 45 years old. WEAKNESS, ACHY TECHNIQUE: 2 AP portable view of the chest. COMPARISON: APRIL 14, 2020 FINDINGS: Mild consolidation is present in the left lower lobe. The remaining bilateral lung arshad are clear.. There is no demonstrated pleural abnormality. Normal size heart. Normal mediastinum and filomena. Normal visualized pulmonary arteries. Normal visualized aortic arch and descending thoracic aorta. Normal visualized thoracic spine. Normal visualized ribs, clavicles, and shoulders. There is no demonstrated abnormality of the visualized soft tissue structures of the upper abdomen. RAD/Chest 1 View (Portable) IMPRESSION: Mild left lower lobe pneumonic infiltrate Electronically Signed: Tramaine Dukes MD at 18:01 EDT , Service support ,
[2020-06-17] MEDS: Potassium Chloride 10mEq/100mL 10 MEQ/100 ML IV.SOLN. 100 MEQ IV BOLUS (18:23)
[2020-06-17 18:55] VITALS: BP 131/86; PULSE 69; RESP 14; O2SAT 98
[2020-06-17] MEDS: levoFLOXacin IV 750 MG/150 ML BAG 100 MG IV (18:57)
[2020-06-17] MEDS: Ketorolac 30 MG/ML Syringe IV (19:00)
[2020-06-17 19:46] LABS: Lactic Acid 0.9 mmol/L (0.4-1.9)
[2020-06-17] MEDS: Loperamide 2 MG Capsule PO (19:57)
[2020-06-17 20:00] VITALS: BP 176/88; PULSE 78; RESP 13; O2SAT 100
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
[2020-06-17] MEDS: Acetaminophen 500 MG Tablet 1000 MG PO (21:24)
[2020-06-17 22:00] VITALS: BP 145/89; PULSE 81; RESP 14; O2SAT 97
[2020-06-18] VITALS (10 sets, daily range): BP systolic 131–149; BP diastolic 66–93; PULSE 61–76; RESP 12–18; TEMP 36.4–36.9; O2SAT 97–100; BMI 24.3
[2020-06-18] MEDS: 0.9% Normal Saline 1,000 ML 999 ML IV (03:52)
[2020-06-18 04:00] LABS: Absolute Lymphocyte Count 3.37 X10^3/uL (0.83-4.51); Absolute Neutrophil Count 10.4 X10^3/uL (2.0-7.7); Basophil# 0.05 X10^3/uL; Basophil% 0.3 % (0-1); Eosinophil# 0.26 X10^3/uL; Eosinophils% 1.7 % (0-5); Hematocrit 36.2 % (37-47); Hemoglobin 11.6 g/dL (12.0-15.0); Lymphocyte # 3.37 X10^3/ul (4.0); Lymphocyte % 22.3 % (19-41); Mean Corpuscular Hgb 31.2 pg (27.0-32.0); Mean Corpuscular Volume 97.3 fL (81-99); Mean Platelet Vol. 9.6 fl (6.2-12.0); Monocyte# 0.95 X10^3/uL; Monocyte% 6.3 % (0-10); NRBC Flagged by Analyzer 0 % (0-5); Neutrophil # 10.42 X10^3/uL (2.7-7.7); Neutrophil % 68.9 % (47-70); Platelet Count 366 K/mm3 (150-450); RBC Distribution Width CV 16.9 % (11.6-14.6); RBC Distribution Width SD 61.2 fl (35.1-43.9); Red Blood Count 3.72 M/mm3 (4.2-5.4); White Blood Count 15.1 K/mm3 (4.4-11.0)
[2020-06-18 04:15] LABS: D-Dimer Quantitative (DVT/PE) 0.57 FEU/ug/m (0.27-0.49)
[2020-06-18 04:18] LABS: ALB/GLOB Ratio 0.7 RATIO (0.9-2.4); AST(SGOT) 11 U/L (15-37); Alanine Aminotransfer ALT/SGPT 13 U/L (13-56); Albumin, Serum 2.6 g/dL (3.2-5.0); Alkaline Phosphatase 97 U/L (45-117); Anion Gap 5 (5-15); BUN 5 mg/dL (7-18); BUN/Creat Ratio 8.6 RATIO (10-20); Calcium,Total 7.9 mg/dL (8.5-10.1); Chloride 110 mmol/L (98-107); Creatinine, Serum 0.58 mg/dL (0.55-1.02); EST Glomerular Filtration Rate 119 mL/min (>60); Est Glom Filt Rate - Afr Amer 144 mL/min (>60); Globulin 3.5 g/dL (2.2-4.2); Glucose 87 mg/dL (74-106); Potassium 3.6 mmol/L (3.5-5.1); Protein, Total 6.1 g/dL (6.4-8.2); Sodium Level 141 mmol/L (136-145)
[2020-06-18 04:19] LABS: Ferritin 39 ng/mL (8-252); LDH 189 U/L (84-246); Magnesium 1.8 mg/dL (1.6-2.6)
[2020-06-18 04:24] LABS: Procalcitonin 0.08 ng/mL (0.00-0.09)
[2020-06-18] MEDS: Gabapentin 400 MG Capsule PO ×3 (04:47→21:55)
[2020-06-18] MEDS: Ibuprofen 400 MG Tablet PO ×4 (04:47→22:22)
[2020-06-18] MEDS: busPIRone 15 MG TABLET PO ×3 (04:48→21:55)
[2020-06-18] MEDS: Pantoprazole Sodium 40 MG Tablet PO ×3 (04:48→21:55)
[2020-06-18] MEDS: 0.9% Normal Saline 1,000 ML 125 ML IV (04:50)
--- NOTE | 2020-06-18 04:57 | CT_ITS ---
STUDY: CTA CHEST REASON FOR EXAM: Female, 45 years old. DYSPNEA, SEPSIS, PNEUMONIA, DRY COUGH RADIATION DOSAGE (If Supplied By Facility): CTDIvol = ( 4.05 ) mGy, DLP = ( 170.22 ) mGycm TECHNIQUE: The examination was performed with the intravenous administration of IV 100mL Isovue-370. Post-processing of the angiographic images was performed, with multiplanar reformation and 3D reconstruction. Individualized dose optimization techniques were used for this CT. COMPARISON: None. FINDINGS: Normal enhancement of the main pulmonary artery and right and left pulmonary arteries. Normal enhancement of the bilateral peripheral pulmonary arteries. There is no demonstrated pulmonary embolism. Normal thoracic aorta and visualized great vessels. There is no demonstrated aortic dissection. Normal heart and pericardium. Normal mediastinum. Normal hilar regions. Normal visualized trachea and bronchi. The lungs are well expanded. Emphysematous changes. Focal groundglass appearance in the posterior aspect of the left upper lobe abutting the left major fissure. Mild degree of a groundglass appearance is also seen in the lingular segment of the left upper lobe as well is in the lower lobes slightly more prominent at the left lung base. No focal consolidation or mass lesion is seen. Normal pleura. Normal chest wall structures. Normal osseous structures. Normal visualized upper abdomen. CT/CTA Chest W/WO Contrast IMPRESSION: Mild degree of the groundglass appearance in the posterior aspect of left upper lobe as well as the lingular segment of the left upper lobe and bilateral lower lobes slightly worse on the left lung base. Radiographic follow-up is recommended. Electronically Signed: Vijay Varma, at 9:39 EDT , Service support ,
--- NOTE | 2020-06-18 07:17 | PN_ITS ---
Patient Problems: Active and Suspected Problems (Last Updated 09/14/19 @ 16:37 by Shannan Carson) Pneumonia (Acute) Sepsis (Acute) Hypokalemia (Acute) Leukocytosis (Acute) Suspected 2018 novel coronavirus infection (Acute) Subjective: Still with cough, SOB, diarrhea and general malaise. Upset that we are having to repeat her COVID tomorrow as she doesn't like the test. Transport here for CTA chest. Vitals/I&O's: Vital Signs Temp Pulse Resp BP Pulse Ox 98.4 F 61 18 131/66 H 99 06/18/20 03:35 06/18/20 03:35 06/18/20 03:35 06/18/20 03:35 06/18/20 03:35 Oxygen Delivery Method Room Air Weight: 60.2 kg Body Mass Index (BMI) 24.3 Intake and Output for Last 24 Hours 06/16/20 06/17/20 06/18/20 23:59 23:59 23:59 Intake Total 1100 / 1100 1345.7 / 1345.7 Balance 1100 / 1100 1345.7 / 1345.7 General: Alert, Oriented x3, Cooperative, No apparent distress, Well developed, Well nourished, - - WF, lying in bed, appears comfortable, non-toxic appearing HEENT: Atraumatic, PERRLA, EOMI, Normocephalic, EAC Clear Oral: Moist Mucosa, No Gingival or Mucosal Lesions/ Ulcerations, - - fair nutrition Neck: Supple, No JVD, No Nodes, No Nuchal Rigidity, Trachea Midline, Thyroid Normal Size and Texture Lungs: No rhonchi, No wheeze, No rales, Diminished - diffusely but worse at R, - - + cough Cardiovascular: Regular rate, Regular Rhythm, Normal S1, Normal S2, No murmurs, No Ectopic Activity, No rub noted, No Gallop Abdomen: Bowel Sounds Present, Soft, Non Tender, Non-Distended, No hernias noted Extremities: No clubbing, No cyanosis, No edema, Capillary Refill Less than 3 Seconds Skin: No rashes, No breakdown Musculoskeletal: No Tenderness to Palpation of Joints or Extremities, No Muscle Wasting Lymphatic: No Cervical, Supraclavicular, or Inguinal Adenopathy Neurological: Cranial nerves II-XII grossly intact, Neuro grossly intact, Muscle tone normal, Coordination normal Psych/Mental Status: Normal Affect, Appropriate, - - slightly agitated, Alert and oriented to time, place, person, mood and affect Microbiology Past 72 Hours 06/18/20 04:05 Stool C. difficile DNA Amplification - Final 06/18/20 03:21 Urine, Clean Catch Streptococcus pneumoniae Antigen (M - Final 06/18/20 03:21 Urine, Clean Catch Legionella Antigen - Final 06/17/20 19:26 Mucosa - Nasopharyngeal Respiratory Panel (PCR) - Final Laboratory Results 06/17/20 15:00: WBC 22.2 H, RBC 3.87 L, Hgb 12.3, Hct 37.8, MCV 97.7, MCH 31.8, MCHC 32.5, RDW Std Deviation 61.0 H, RDW Coeff of Clark 16.9 H, Plt Count 389, MPV 9.7, Immature Gran % (Auto) 0.600, Neut % (Auto) 83.9 H, Lymph % (Auto) 9.7 L, [place] % (Auto) 4.5, Eos % (Auto) 1.0, Baso % (Auto) 0.3, Absolute Neuts (auto) 18.6 H, Absolute Lymphs (auto) 2.16, Nucleated RBC % 0 06/17/20 15:00: Sodium 141, Potassium 2.9 L, Chloride 107, Carbon Dioxide 29.0, Anion Gap 5, BUN 5 L, Creatinine 0.70, Estim Creat Clear Calc 81.11, Est GFR (MDRD) Af Amer 117, Est GFR (MDRD) Non-Af 97, BUN/Creatinine Ratio 7.2 L, Glucose 110 H, Calcium 8.7, Total Bilirubin 0.30, AST 13 L, ALT 13, Alkaline Phosphatase 102, Total Protein 6.4, Albumin 2.9 L, Globulin 3.5, Albumin/Globulin Ratio 0.8 L, Lipase 35 L 06/17/20 15:00: Serum , Qual NEGATIVE 06/17/20 19:00: Lactic Acid 0.9 06/17/20 19:26: COVID-19 (ARNOLDO) Negative 06/18/20 03:21: D-Dimer Quant (PE/DVT) 0.57 H* 06/18/20 03:21: Magnesium 1.8, Ferritin 39, Lactate Dehydrogenase 189, C-React Prot Ext Range 74.70 H 06/18/20 03:21: Procalcitonin 0.08 06/18/20 03:21: WBC 15.1 H, RBC 3.72 L, Hgb 11.6 L, Hct 36.2 L, MCV 97.3, MCH 31.2, MCHC 32.0, RDW Std Deviation 61.2 H, RDW Coeff of Clark 16.9 H, Plt Count 366, MPV 9.6, Immature Gran % (Auto) 0.500, Neut % (Auto) 68.9, Lymph % (Auto) 22.3, [place] % (Auto) 6.3, Eos % (Auto) 1.7, Baso % (Auto) 0.3, Absolute Neuts (auto) 10.4 H, Absolute Lymphs (auto) 3.37, Nucleated RBC % 0 06/18/20 03:21: Sodium 141, Potassium 3.6, Chloride 110 H, Carbon Dioxide 26.0, Anion Gap 5, BUN 5 L, Creatinine 0.58, Estim Creat Clear Calc 97.90, Est GFR (MDRD) Af Amer 144, Est GFR (MDRD) Non-Af 119, BUN/Creatinine Ratio 8.6 L, Glucose 87, Calcium 7.9 L, Total Bilirubin 0.50, AST 11 L, ALT 13, Alkaline Phosphatase 97, Total Protein 6.1 L, Albumin 2.6 L, Globulin 3.5, Albumin/Globulin Ratio 0.7 L Current Medications Acetaminophen (Tylenol) 650 mg PO Q6H PRN PRN PRN Reason: Pain Score 1-10/Temp > 100.7 F Al Hydroxide/Mg Hydroxide (Mylanta Ii) 30 ml PO Q6H PRN PRN PRN Reason: Gastric Burning Albuterol Sulfate (Ventolin Aerosols) 2.5 mg INHALATION Q2H PRN PRN PRN Reason: Dyspnea, wheezing Albuterol/Ipratropium (Duoneb) 3 ml INHALATION Q4HWA.RT JOSE LUIS Atorvastatin Calcium (Lipitor) 40 mg PO DAILY@2200 [facility] Buspirone HCl (Buspar) [address] [facility] Last Admin: 06/18/20 04:48 Dose: 15 mg Documented by: Clonazepam (Klonopin) 0.5 mg PO BID PRN PRN PRN Reason: ANXIETY Enoxaparin Sodium (Lovenox) [address] [facility] Gabapentin (Neurontin) [address] [facility] Last Admin: 06/18/20 04:47 Dose: 400 mg Documented by: Guaifenesin (Robitussin) 20 ml PO Q4H PRN PRN PRN Reason: COUGH Hydralazine HCl (Apresoline Iv) 10 mg IV Q4H PRN PRN PRN Reason: SBP > 160 Sodium Chloride () 1,000 mls @ 125 mls/hr IV .Q8H [facility] Last Admin: 06/18/20 04:50 Dose: 125 mls/hr Documented by: Levofloxacin (Levaquin Iv) 750 mg in 150 mls @ 100 mls/hr IV Q24@2200 [facility] Sodium Chloride () 250 mls @ 15 mls/hr IV .[id number] PRN PRN Reason: Saline Flush Sodium Chloride () 250 mls @ 15 mls/hr IV .[id number] PRN PRN Reason: Additional IVPB Infusion Ibuprofen (Motrin) 400 mg PO Q4H PRN PRN PRN Reason: Pain Score 1-10/Temp > 100.7 F Last Admin: 06/18/20 04:47 Dose: 400 mg Documented by: Loratadine (Claritin) [address] [facility] Nutritional Formula (Lactose Free) (Ensure Enlive) 120 ml PO 4X/DAY [facility] Ondansetron HCl (Zofran) 4 mg IV Q8H PRN PRN PRN Reason: NAUSEA/VOMITING Pantoprazole Sodium (Protonix) [address] [facility] Last Admin: 06/18/20 04:48 Dose: 40 mg Documented by: Prochlorperazine Edisylate (Compazine Iv) 5 mg IV Q4H PRN PRN PRN Reason: Breakthrough nausea/vomiting Sodium Chloride () 10 - 40 ml IV UD PRN PRN Reason: SALINE FLUSH Temazepam (Restoril) 15 mg PO QHS PRN PRN PRN Reason: INSOMNIA Throat Lozenges (Cepacol Sore Throat Lozenge) 1 lozenge MUCOUS MEM Q2H PRN PRN PRN Reason: SORE THROAT Venlafaxine HCl (Effexor Xr) [address] [facility] STROKE Vital Signs/Narrative: Vital Signs Temp Pulse Resp BP Pulse Ox 06/18/20 03:35 98.4 F 61 18 131/66 H 99 Medical Necessity - Tobacco Use Smoking Status: Current every day smoker Tobacco Use: Cigarettes Assessment/Plan All Active Problems (Last Updated 09/14/19 @ 16:37 by Shannan Carson) Pneumonia (Acute) Sepsis (Acute) Hypokalemia (Acute) Leukocytosis (Acute) Suspected 2018 novel coronavirus infection (Acute) Laceration without foreign body of left little finger without damage to nail, initial encounter (Acute) Abnormal uterine bleeding (AUB) (Acute) Endometrium, polyp (Acute) Acute Sepsis 2/2 PNA/? Acute Viral Syndrome -sx are very concerning for COVID- -will repeat COVID in am initial collected at about 730 pm on 06/17 -repeat in am -pt remains on RA at this time -legionella and S.pneumo neg -Resp Viral panel is neg -Blood cx are pending -sputum ordered but no sputum produced -slight d-dimer elevation -CTA pending -will fully anticoagulate for now with elevated d-dimer until repeat COVID is done and neg -Continue Levaquin for now -white count has trended down -d/c IVF and monitor I&O -pulmonary toilet Hypokalemia -replaced and now WNL Diarrhea -c-diff neg -enteric panel pending -imodium prn HTN/HPL -statin -prn BP meds for SBP > 160 (hydralazine) Chronic Asthma/COPD -O2 as needed -prn nebs GERD -PPI Depression/Anxiety -continue BUspar/Klonopin/Effexor Tobacco Abuse -Cessation -nicotine patch ordered DVT prophylaxis -Lovenox -SCD's Code Status -Full Dispo -repeat COVID in am, if Blood cx neg pt may be able to d/c in am Inpatient E&M: 59114 Subs Hosp L2
[2020-06-18] MEDS: Ipratropium/Albuterol Sulfate 3 ML AMPUL.NEB INHALATION ×3 (07:52→19:20)
[2020-06-18] MEDS: Venlafaxine XR 150 MG Capsule PO (08:59)
[2020-06-18] MEDS: Loratadine 10 MG Tablet PO (08:59)
[2020-06-18] MEDS: Enoxaparin 60 MG/0.6 ML Syringe SC ×2 (08:59→21:55)
[2020-06-18] MEDS: 0.9% Saline Lock 10 ML Syringe IV ×2 (08:59→16:01)
--- NOTE | 2020-06-18 10:39 | CASEMGMT ---
RN CM Note. Attempted call to patient in room. No answer. Patient is in isolation currently. Isaac SALMERONN RN ACM
[2020-06-18] MEDS: Acetaminophen 325 MG Tablet 650 MG PO (11:40)
--- NOTE | 2020-06-18 12:12 | CASEMGMT ---
RN CM Assessment Note Chart reviewed. Patient did not answer phone and is not feeling well per nursing. Presentation: malaise, generalized body aches, diarrhea, headache. Temp Diagnosis: Pneumonia, sepsis, hx of COPD PCP: Dr. Cohen Insurance: [employer]iel[employer] monettbhargav Preferred Pharmacy: [facility] Prescription Benefit: yes LNOK: Mother, Caitlyn Alexander Living Arrangements: Lives independently. DME: none Patient DC Goals: Home DC Plan: anticipate Home. Pt is currently on room air, and nursing states pt is independent in room. Contact CM for any concerns/needs that may arise. Isaac SIMMONS RN ACM
[2020-06-18] MEDS: Ketorolac 15 MG/ML Vial IV (15:56)
[2020-06-18] MEDS: Atorvastatin Calcium 40 MG Tablet PO (21:55)
[2020-06-18] MEDS: levoFLOXacin IV 750 MG/150 ML BAG 100 MG IV (21:58)
[2020-06-18] MEDS: clonazePAM 0.5 MG Tablet PO (22:22)
[2020-06-19 02:00] VITALS: BP 136/91; PULSE 61; RESP 16; TEMP 36.3; O2SAT 98
[2020-06-19 04:00] VITALS: PULSE 61; RESP 16; O2SAT 98
[2020-06-19] MEDS: busPIRone 15 MG TABLET PO (05:31)
[2020-06-19] MEDS: Gabapentin 400 MG Capsule PO (05:31)
[2020-06-19 05:38] LABS: Absolute Lymphocyte Count 2.96 X10^3/uL (0.83-4.51); Absolute Neutrophil Count 6.4 X10^3/uL (2.0-7.7); Basophil# 0.05 X10^3/uL; Basophil% 0.5 % (0-1); Eosinophil# 0.27 X10^3/uL; Eosinophils% 2.6 % (0-5); Hematocrit 37.3 % (37-47); Hemoglobin 11.9 g/dL (12.0-15.0); Lymphocyte # 2.96 X10^3/ul (4.0); Lymphocyte % 28.4 % (19-41); Mean Corp Hgb Conc 31.9 g/dL (32-36); Mean Corpuscular Hgb 31.1 pg (27.0-32.0); Mean Corpuscular Volume 97.4 fL (81-99); Mean Platelet Vol. 9.6 fl (6.2-12.0); Monocyte% 6.7 % (0-10); NRBC Flagged by Analyzer 0 % (0-5); Neutrophil # 6.41 X10^3/uL (2.7-7.7); Neutrophil % 61.4 % (47-70); Platelet Count 420 K/mm3 (150-450); RBC Distribution Width SD 60.8 fl (35.1-43.9); Red Blood Count 3.83 M/mm3 (4.2-5.4); White Blood Count 10.4 K/mm3 (4.4-11.0)
[2020-06-19 05:55] LABS: Anion Gap 5 (5-15); BUN 7 mg/dL (7-18); BUN/Creat Ratio 11.5 RATIO (10-20); Calcium,Total 8.5 mg/dL (8.5-10.1); Chloride 107 mmol/L (98-107); Creatinine, Serum 0.61 mg/dL (0.55-1.02); EST Glomerular Filtration Rate 114 mL/min (>60); Est Glom Filt Rate - Afr Amer 138 mL/min (>60); Estimated Creatinine Clearance 93.08 ml/min; Glucose 89 mg/dL (74-106); Potassium 3.7 mmol/L (3.5-5.1); Sodium Level 140 mmol/L (136-145)
[2020-06-19] MEDS: Ipratropium/Albuterol Sulfate 3 ML AMPUL.NEB INHALATION (07:15)
[2020-06-19 07:16] VITALS: RESP 18
--- NOTE | 2020-06-19 07:18 | PN_ITS ---
Patient Problems: Active and Suspected Problems (Last Updated 09/14/19 @ 16:37 by Shannan Carson) Pneumonia (Acute) Sepsis (Acute) Hypokalemia (Acute) Leukocytosis (Acute) Suspected 2019 novel coronavirus infection (Acute) Vitals/I&O's: Vital Signs Temp Pulse Resp BP Pulse Ox 97.4 F L 61 18 136/91 H 98 06/19/20 02:00 06/19/20 04:00 06/19/20 07:16 06/19/20 02:00 06/19/20 04:00 Oxygen Delivery Method Room Air Weight: 60.2 kg Body Mass Index (BMI) 24.3 Intake and Output for Last 24 Hours 06/17/20 06/18/20 06/19/20 23:59 23:59 23:59 Intake Total 1100 / 1100 2221.53 / 2221.53 150 / 150 Output Total 750 / 750 Balance 1100 / 1100 2221.53 / 1871.53 -600 / -600 Microbiology Past 72 Hours 06/18/20 18:00 Sputum, Expectorated/Coughed Gram Stain - Preliminary 06/18/20 04:05 Stool Enteric Bacteriology - Final 06/18/20 04:05 Stool C. difficile DNA Amplification - Final 06/18/20 03:21 Urine, Clean Catch Streptococcus pneumoniae Antigen (M - Final 06/18/20 03:21 Urine, Clean Catch Legionella Antigen - Final 06/17/20 19:26 Mucosa - Nasopharyngeal Respiratory Panel (PCR) - Final Laboratory Results 06/19/20 05:20: COVID-19 (ARNOLDO) Pending 06/19/20 05:25: WBC 10.4, RBC 3.83 L, Hgb 11.9 L, Hct 37.3, MCV 97.4, MCH 31.1, MCHC 31.9 L, RDW Std Deviation 60.8 H, RDW Coeff of Clark 17.0 H, Plt Count 420, MPV 9.6, Immature Gran % (Auto) 0.400, Neut % (Auto) 61.4, Lymph % (Auto) 28.4, [place] % (Auto) 6.7, Eos % (Auto) 2.6, Baso % (Auto) 0.5, Absolute Neuts (auto) 6.4, Absolute Lymphs (auto) 2.96, Nucleated RBC % 0 06/19/20 05:25: Sodium 140, Potassium 3.7, Chloride 107, Carbon Dioxide 28.0, Anion Gap 5, BUN 7, Creatinine 0.61, Estim Creat Clear Calc 93.08, Est GFR (MDRD) Af Amer 138, Est GFR (MDRD) Non-Af 114, BUN/Creatinine Ratio 11.5, Glucose 89, Calcium 8.5 Current Medications Acetaminophen (Tylenol) 650 mg PO Q6H PRN PRN PRN Reason: Pain Score 1-10/Temp > 100.7 F Last Admin: 06/18/20 11:40 Dose: 650 mg Documented by: Al Hydroxide/Mg Hydroxide (Mylanta Ii) 30 ml PO Q6H PRN PRN PRN Reason: Gastric Burning Albuterol Sulfate (Ventolin Aerosols) 2.5 mg INHALATION Q2H PRN PRN PRN Reason: Dyspnea, wheezing Albuterol/Ipratropium (Duoneb) 3 ml INHALATION Q4HWA.RT [facility] Last Admin: 06/19/20 07:15 Dose: 3 ml Documented by: Atorvastatin Calcium (Lipitor) 40 mg PO DAILY@2200 [facility] Last Admin: 06/18/20 21:55 Dose: 40 mg Documented by: Buspirone HCl (Buspar) 15 mg PO TID [facility] Last Admin: 06/19/20 05:31 Dose: 15 mg Documented by: Clonazepam (Klonopin) 0.5 mg PO BID PRN PRN PRN Reason: ANXIETY Last Admin: 06/18/20 22:22 Dose: 0.5 mg Documented by: Enoxaparin Sodium (Lovenox) 60 mg SC Q12 [facility] Last Admin: 06/18/20 21:55 Dose: 60 mg Documented by: Gabapentin (Neurontin) 400 mg PO TID [facility] Last Admin: 06/19/20 05:31 Dose: 400 mg Documented by: Guaifenesin (Robitussin) 20 ml PO Q4H PRN PRN PRN Reason: COUGH Hydralazine HCl (Apresoline Iv) 10 mg IV Q4H PRN PRN PRN Reason: SBP > 160 Levofloxacin (Levaquin Iv) 750 mg in 150 mls @ 100 mls/hr IV Q24@2200 [facility] Last Infusion: 06/19/20 01:08 Dose: Infused Documented by: Sodium Chloride () 250 mls @ 15 mls/hr IV .[id number] PRN PRN Reason: Saline Flush Sodium Chloride () 250 mls @ 15 mls/hr IV .[id number] PRN PRN Reason: Additional IVPB Infusion Ibuprofen (Motrin) 400 mg PO Q4H PRN PRN PRN Reason: Pain Score 1-10/Temp > 100.7 F Last Admin: 06/18/20 22:22 Dose: 400 mg Documented by: Loperamide HCl (Imodium) 2 mg PO Q4H PRN PRN PRN Reason: Diarrhea Loratadine (Claritin) 10 mg PO DAILY [facility] Last Admin: 06/18/20 08:59 Dose: 10 mg Documented by: Nicotine (Nicoderm Cq (Pbkc)) 14 mg TRANSDERM. DAILY [facility] Last Admin: 06/18/20 09:00 Dose: Not Given Documented by: Nutritional Formula (Lactose Free) (Ensure Enlive) 120 ml PO 4X/DAY [facility] Last Admin: 06/18/20 21:55 Dose: 120 ml Documented by: Ondansetron HCl (Zofran) 4 mg IV Q8H PRN PRN PRN Reason: NAUSEA/VOMITING Pantoprazole Sodium (Protonix) 40 mg PO BID [facility] Last Admin: 06/18/20 21:55 Dose: 40 mg Documented by: Prochlorperazine Edisylate (Compazine Iv) 5 mg IV Q4H PRN PRN PRN Reason: Breakthrough nausea/vomiting Sodium Chloride () 10 - 40 ml IV UD PRN PRN Reason: SALINE FLUSH Last Admin: 06/18/20 16:01 Dose: 10 ml Documented by: Temazepam (Restoril) 15 mg PO QHS PRN PRN PRN Reason: INSOMNIA Throat Lozenges (Cepacol Sore Throat Lozenge) 1 lozenge MUCOUS MEM Q2H PRN PRN PRN Reason: SORE THROAT Venlafaxine HCl (Effexor Xr) 150 mg PO DAILY [facility] Last Admin: 06/18/20 08:59 Dose: 150 mg Documented by: STROKE Vital Signs/Narrative: Vital Signs Pulse Resp Pulse Ox 06/19/20 07:16 18 06/19/20 04:00 61 16 98 Medical Necessity - Tobacco Use Smoking Status: Current every day smoker Tobacco Use: Cigarettes Assessment/Plan All Active Problems (Last Updated 09/14/19 @ 16:37 by Shannan Carson) Pneumonia (Acute) Sepsis (Acute) Hypokalemia (Acute) Leukocytosis (Acute) Suspected 2019 novel coronavirus infection (Acute) Laceration without foreign body of left little finger without damage to nail, initial encounter (Acute) Abnormal uterine bleeding (AUB) (Acute) Endometrium, polyp (Acute)
[2020-06-19 08:00] VITALS: BP 144/98; PULSE 70; RESP 16; TEMP 36.4; O2SAT 100
--- NOTE | 2020-06-19 08:12 | DCINST_ITS ---
- Discharge Diagnoses Current Active Problems: Current Active and Chronic Problems (Last Updated 09/14/19 @ 16:37 by Shannan Carson) Pneumonia (Acute) Sepsis (Acute) Hypokalemia (Acute) Leukocytosis (Acute) Suspected 2019 novel coronavirus infection (Acute) Anxiety and depression (Chronic) COPD with asthma (Chronic) You will use the following diet at home:: No restrictions Discharge Activity: Return to Normal Activity Allergies/Adverse Reactions: Allergies doxycycline Allergy (Verified 06/17/20 15:31) Unknown erythromycin base [Erythromycin Base] Allergy (Verified 06/17/20 15:31) Chest tightness Penicillins Allergy (Verified 06/17/20 15:31) Unknown tramadol HCl [From Ultram] Allergy (Verified 06/17/20 15:31) Swelling cefdinir [From Omnicef] Adverse Reaction (Verified 06/17/20 15:31) Other risperidone [From Risperdal] Adverse Reaction (Verified 06/17/20 15:31) Unknown valacyclovir HCl [From Valtrex] Adverse Reaction (Verified 06/17/20 15:31) Nausea Medications to take at Discharge Pantoprazole Sodium [Protonix] 40 mg PO BID 04/09/14 Atorvastatin Calcium 40 mg PO DAILY 03/28/19 Albuterol IH (ProAir) [Proair Hfa] 1 - 2 puff INHALATION Q6H PRN PRN 04/06/19 Cetirizine HCl [Zyrtec] 10 mg PO DAILY 04/14/20 Acetaminophen [Tylenol] 1,000 mg PO DAILY PRN 06/17/20 Buspirone HCl 15 mg PO TID 06/17/20 Clonazepam [Klonopin] 0.5 mg PO BID PRN PRN 06/17/20 Gabapentin [Neurontin] 400 mg PO TID 06/17/20 Venlafaxine HCl [Venlafaxine HCl ER] 150 mg PO DAILY 06/17/20 Dexamethasone [Decadron] 6 mg PO DAILY 5 Days #5 tab 06/19/20 Guaifenesin [Mucinex] 1,200 mg PO BID #14 tbmp.12hr 06/19/20 Ibuprofen [Motrin] 400 mg PO Q4H PRN PRN tablet 06/19/20 levoFLOXacin tablet [Levaquin tablet] 750 mg PO DAILY #5 tab 06/19/20 The following prescriptions were given: Dexamethasone [Decadron] 6 mg PO DAILY 5 Days #5 tab Transmission Status: Pending to [facility]/pharmacy #[id number] levoFLOXacin tablet [Levaquin tablet] 750 mg PO DAILY #5 tab Transmission Status: Pending to [facility]/pharmacy #[id number] Guaifenesin [Mucinex] 1,200 mg PO BID #14 tbmp.12hr Transmission Status: Pending to [facility]/pharmacy #[id number] Primary Care Physician: Martinez Cohen MD [Primary Care Provider] - Please follow up with your Primary Care Physician in: IN 5 DAYS Test Results: Test results from this visit will be discussed in further detail at your follow- up appointment, if applicable. Proposed Discharge Date: 06/19/20
--- NOTE | 2020-06-19 08:14 | DS.PCM_ITS ---
Discharge Date and Diagnosis - Problem List Patient Problems: Active and Suspected Problems (Last Updated 09/14/19 @ 16:37 by Shannan Carson) Pneumonia (Acute) Sepsis (Acute) Hypokalemia (Acute) Leukocytosis (Acute) Suspected 2019 novel coronavirus infection (Acute) Date of Admission: 06/17/20 Date of Discharge: 06/19/20 - Primary Discharge Diagnosis Acute Problems: Active Problems (Last Updated 09/14/19 @ 16:37 by Shannan Carson) Pneumonia (Acute) Sepsis (Acute) Hypokalemia (Acute) Leukocytosis (Acute) Suspected 2019 novel coronavirus infection (Acute) - Secondary Discharge Diagnosis Chronic Problems: Chronic Problems (Last Updated 09/14/19 @ 16:37 by Shannan Carson) Anxiety and depression (Chronic) COPD with asthma (Chronic) HTN (hypertension) (Chronic) Tobacco abuse (Chronic) Hospital Course and Treatment Imaging Results: Clinical Impression(s) from Imaging Studies Chest X-Ray 06/17/20 17:30 IMPRESSION: Mild left lower lobe pneumonic infiltrate Electronically Signed: Tramaine Dukes MD at 18:01 EDT , Service support , Chest CTA 06/18/20 04:57 IMPRESSION: Mild degree of the groundglass appearance in the posterior aspect of left upper lobe as well as the lingular segment of the left upper lobe and bilateral lower lobes slightly worse on the left lung base. Radiographic follow-up is recommended. Electronically Signed: Vijay Varma, at 9:39 EDT , Service support , Operations: None Summary of Care Provided: The patient is a 45 year old F needed with shortness of breath 1, Sepsis secondary to pneumonia ?With suspected streptococcal pneumonia patient admitted to regular nursing floor placed in isolation whilst COVID-19 was ruled out. Cultures came back negative. Patient was placed on Levaquin did respond to treatment 2. COPD ?Managed with aerosol treatments as needed 3. GERD -patient on PPI 4. Tobacco dependence?counseled on cessation 5. Depression with anxiety ?Patient is on BuSpar Klonopin and Effexor did continue 6. DVT prophylaxis ?Lovenox Patient Problems: Active and Suspected Problems (Last Updated 09/14/19 @ 16:37 by Shannan Carson) Pneumonia (Acute) Sepsis (Acute) Hypokalemia (Acute) Leukocytosis (Acute) Suspected 2019 novel coronavirus infection (Acute) Objective: GENERAL: cooperative HEENT: Atraumatic; EYES; Anicteric, Normal Conjunctiva NECK; supple, normal thyroid, RESPIRATORY: Diminished to auscultation CARDIOVASCULAR: Regular S1 S2, GI: soft, normoactive bowel sounds, NEURO: Awake; no lateralizing signs. SKIN: No Rash PSYCH; Flat affect - Physical Exam Vitals/I&O's: Vital Signs Temp Pulse Resp BP Pulse Ox 97.4 F L 61 18 136/91 H 98 06/19/20 02:00 06/19/20 04:00 06/19/20 07:16 06/19/20 02:00 06/19/20 04:00 Oxygen Delivery Method Room Air Weight: 60.2 kg Body Mass Index (BMI) 24.3 Intake and Output for Last 24 Hours 06/17/20 06/18/20 06/19/20 23:59 23:59 23:59 Intake Total 1100 / 1100 2221.53 / 2221.53 150 / 150 Output Total 750 / 750 Balance 1100 / 1100 2221.53 / 1871.53 -600 / -600 Microbiology Past 72 Hours 06/18/20 18:00 Sputum, Expectorated/Coughed Gram Stain - Preliminary 06/18/20 04:05 Stool Enteric Bacteriology - Final 06/18/20 04:05 Stool C. difficile DNA Amplification - Final 06/18/20 03:21 Urine, Clean Catch Streptococcus pneumoniae Antigen (M - Final 06/18/20 03:21 Urine, Clean Catch Legionella Antigen - Final 06/17/20 19:26 Mucosa - Nasopharyngeal Respiratory Panel (PCR) - Final Laboratory Results 06/19/20 05:20: COVID-19 (ARNOLDO) Not Detected 06/19/20 05:25: WBC 10.4, RBC 3.83 L, Hgb 11.9 L, Hct 37.3, MCV 97.4, MCH 31.1, MCHC 31.9 L, RDW Std Deviation 60.8 H, RDW Coeff of Clark 17.0 H, Plt Count 420, MPV 9.6, Immature Gran % (Auto) 0.400, Neut % (Auto) 61.4, Lymph % (Auto) 28.4, [place] % (Auto) 6.7, Eos % (Auto) 2.6, Baso % (Auto) 0.5, Absolute Neuts (auto) 6.4, Absolute Lymphs (auto) 2.96, Nucleated RBC % 0 06/19/20 05:25: Sodium 140, Potassium 3.7, Chloride 107, Carbon Dioxide 28.0, Anion Gap 5, BUN 7, Creatinine 0.61, Estim Creat Clear Calc 93.08, Est GFR (MDRD) Af Amer 138, Est GFR (MDRD) Non-Af 114, BUN/Creatinine Ratio 11.5, Glucose 89, Calcium 8.5 Current Medications Acetaminophen (Tylenol) 650 mg PO Q6H PRN PRN PRN Reason: Pain Score 1-10/Temp > 100.7 F Last Admin: 06/18/20 11:40 Dose: 650 mg Documented by: Al Hydroxide/Mg Hydroxide (Mylanta Ii) 30 ml PO Q6H PRN PRN PRN Reason: Gastric Burning Albuterol Sulfate (Ventolin Aerosols) 2.5 mg INHALATION Q2H PRN PRN PRN Reason: Dyspnea, wheezing Albuterol/Ipratropium (Duoneb) 3 ml INHALATION Q4HWA.RT [facility] Last Admin: 06/19/20 07:15 Dose: 3 ml Documented by: Atorvastatin Calcium (Lipitor) 40 mg PO DAILY@2200 [facility] Last Admin: 06/18/20 21:55 Dose: 40 mg Documented by: Buspirone HCl (Buspar) 15 mg PO TID [facility] Last Admin: 06/19/20 05:31 Dose: 15 mg Documented by: Clonazepam (Klonopin) 0.5 mg PO BID PRN PRN PRN Reason: ANXIETY Last Admin: 06/18/20 22:22 Dose: 0.5 mg Documented by: Enoxaparin Sodium (Lovenox) 60 mg SC Q12 [facility] Last Admin: 06/18/20 21:55 Dose: 60 mg Documented by: Gabapentin (Neurontin) 400 mg PO TID [facility] Last Admin: 06/19/20 05:31 Dose: 400 mg Documented by: Guaifenesin (Robitussin) 20 ml PO Q4H PRN PRN PRN Reason: COUGH Hydralazine HCl (Apresoline Iv) 10 mg IV Q4H PRN PRN PRN Reason: SBP > 160 Levofloxacin (Levaquin Iv) 750 mg in 150 mls @ 100 mls/hr IV Q24@2200 [facility] Last Infusion: 06/19/20 01:08 Dose: Infused Documented by: Sodium Chloride () 250 mls @ 15 mls/hr IV .[id number] PRN PRN Reason: Saline Flush Sodium Chloride () 250 mls @ 15 mls/hr IV .[id number] PRN PRN Reason: Additional IVPB Infusion Ibuprofen (Motrin) 400 mg PO Q4H PRN PRN PRN Reason: Pain Score 1-10/Temp > 100.7 F Last Admin: 06/18/20 22:22 Dose: 400 mg Documented by: Loperamide HCl (Imodium) 2 mg PO Q4H PRN PRN PRN Reason: Diarrhea Loratadine (Claritin) 10 mg PO DAILY [facility] Last Admin: 06/18/20 08:59 Dose: 10 mg Documented by: Nicotine (Nicoderm Cq (Pbkc)) 14 mg TRANSDERM. DAILY [facility] Last Admin: 06/18/20 09:00 Dose: Not Given Documented by: Nutritional Formula (Lactose Free) (Ensure Enlive) 120 ml PO 4X/DAY [facility] Last Admin: 06/18/20 21:55 Dose: 120 ml Documented by: Ondansetron HCl (Zofran) 4 mg IV Q8H PRN PRN PRN Reason: NAUSEA/VOMITING Pantoprazole Sodium (Protonix) 40 mg PO BID [facility] Last Admin: 06/18/20 21:55 Dose: 40 mg Documented by: Prochlorperazine Edisylate (Compazine Iv) 5 mg IV Q4H PRN PRN PRN Reason: Breakthrough nausea/vomiting Sodium Chloride () 10 - 40 ml IV UD PRN PRN Reason: SALINE FLUSH Last Admin: 06/18/20 16:01 Dose: 10 ml Documented by: Temazepam (Restoril) 15 mg PO QHS PRN PRN PRN Reason: INSOMNIA Throat Lozenges (Cepacol Sore Throat Lozenge) 1 lozenge MUCOUS MEM Q2H PRN PRN PRN Reason: SORE THROAT Venlafaxine HCl (Effexor Xr) 150 mg PO DAILY [facility] Last Admin: 06/18/20 08:59 Dose: 150 mg Documented by: Discharge Diet: No Restrictions Discharge Activity: Return to Normal Activity Home Medications: Medications to take at Discharge Pantoprazole Sodium [Protonix] 40 mg PO BID 04/09/14 Atorvastatin Calcium 40 mg PO DAILY 03/28/19 Albuterol IH (ProAir) [Proair Hfa] 1 - 2 puff INHALATION Q6H PRN PRN 04/06/19 Cetirizine HCl [Zyrtec] 10 mg PO DAILY 04/14/20 Acetaminophen [Tylenol] 1,000 mg PO DAILY PRN 06/17/20 Buspirone HCl 15 mg PO TID 06/17/20 Clonazepam [Klonopin] 0.5 mg PO BID PRN PRN 06/17/20 Gabapentin [Neurontin] 400 mg PO TID 06/17/20 Venlafaxine HCl [Venlafaxine HCl ER] 150 mg PO DAILY 06/17/20 Dexamethasone [Decadron] 6 mg PO DAILY 5 Days #5 tab 06/19/20 Guaifenesin [Mucinex] 1,200 mg PO BID #14 tbmp.12hr 06/19/20 Ibuprofen [Motrin] 400 mg PO Q4H PRN PRN tablet 06/19/20 levoFLOXacin tablet [Levaquin tablet] 750 mg PO DAILY #5 tab 06/19/20 Following Prescriptions Were Given to Patient: Dexamethasone [Decadron] 6 mg PO DAILY 5 Days #5 tab Transmission Status: Pending to [facility]/pharmacy #[id number] levoFLOXacin tablet [Levaquin tablet] 750 mg PO DAILY #5 tab Transmission Status: Pending to [facility]/pharmacy #[id number] Guaifenesin [Mucinex] 1,200 mg PO BID #14 tbmp.12hr Transmission Status: Pending to [facility]/pharmacy #[id number] Primary Care Physician: Martinez Cohen MD [Primary Care Provider] - Please follow up with your Primary Care Physician in: IN 5 DAYS Disposition: Home Minutes spent on discharge:: 35 Patient Condition:: Stable Medical Necessity - Tobacco Use Smoking Status: Current every day smoker Tobacco Use: Cigarettes Meaningful Use Info Meaningful Use Diagnoses (Choose all that apply): None applicable Inpatient E&M: 33618 [facility]
[2020-06-19] MEDS: Venlafaxine XR 150 MG Capsule PO (09:09)
[2020-06-19] MEDS: Pantoprazole Sodium 40 MG Tablet PO (09:09)
--- NOTE | 2020-06-20 15:01 | CASEMGMT ---
DULCE SOTELO Discharge Follow-Up Phone Call. Irene: Elfego Strata: 3 Discharge Date: 06/19/20 Adm Dx: Sepsis, pneumonia. Call to pt to inquire about how she has been doing since being discharged from the hospital. Pt states, I'm still weak, but I'm getting better slowly. 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 She has made an appt w/[facility] for Dr Cohen for next Tue. She denies having any questions about the discharge instructions and denies needs or questions. DULCE SOTELO thanked pt for choosing [facility]. Carmine SIMMONS RN, CM
== END 2020-06-19 09:15 | disposition home or self-care (01) | DRG 720 ==
LOC: ED 21:42 → ICU 06-18 04:17
PROVIDERS: Internal Medicine; Admitting Provider Family Medicine; Emergency Provider Emergency Medicine; PCP Family Medicine; Visit Provider Internal Medicine
DX: A41.9 Sepsis, unspecified organism (principal); E87.6 Hypokalemia; J18.9 Pneumonia, unspecified organism; I10 Essential (primary) hypertension; J44.0 Chronic obstructive pulmonary disease with (acute) lower respiratory infection; R19.7 Diarrhea, unspecified; E78.5 Hyperlipidemia, unspecified; K21.9 Gastro-esophageal reflux disease without esophagitis; F41.8 Other specified anxiety disorders; M54.9 Dorsalgia, unspecified; G89.29 Other chronic pain; F17.210 Nicotine dependence, cigarettes, uncomplicated; Z90.49 Acquired absence of other specified parts of digestive tract; Z82.49 Family history of ischemic heart disease and other diseases of the circulatory system; Z83.3 Family history of diabetes mellitus; Z87.11 Personal history of peptic ulcer disease; Z88.0 Allergy status to penicillin; Z88.1 Allergy status to other antibiotic agents
CPT/HCPCS: 71045; 71275; 80048; 80053; 82728; 83605; 83615; 83690; 83735; 84145; 84703; 85025; 85379; 86140; 87040; 87070; 87205; 87449; 87493; 87506; 87633; 87635; 94640; 94799; 99218; 99251; 99283; 99406; J7030; Q9967; A4216; G0378; G0463; U0003

== ENCOUNTER 2020-10-14 19:17 | Emergency (ER) | payer MEDICAID, SELFPAY ==
[2020-06-18 03:25] VITALS: BMI 24.3
[2020-10-14 19:18] VITALS: BP 128/96; PULSE 97; RESP 20; TEMP 36.3; BMI 24.2
== END 2020-10-14 22:00 ==
LOC: ED 21:04
PROVIDERS: Emergency Provider Student in an Organized Health Care Education/Training Program; PCP Family Medicine
DX: R10.9 Unspecified abdominal pain (principal)

== ENCOUNTER → 2020-10-15 12:47 | Outpatient (CLI) | payer MEDICAID, SELFPAY ==
[2020-10-14 19:18] VITALS: BMI 24.2
[2020-10-15 13:04] LABS: Lipase 48 U/L (73-393)
== END ==
PROVIDERS: PCP Family Medicine; Referring Provider Nurse Practitioner Primary Care; Visit Provider Nurse Practitioner Primary Care
DX: R10.13 Epigastric pain (principal)
CPT/HCPCS: 83690

== ENCOUNTER → 2020-11-26 13:22 | Outpatient (CLI) | payer MEDICAID, SELFPAY ==
--- NOTE | 2020-11-26 13:25 | STEWCON_ITS ---
Reason For Study: CAD, history of angina. pre-op Stress Results Protocol: Ivan Protocol WITH DEFINITY Maximum Predicted HR: 176 bpm Target HR: 150 bpm % Maximum Predicted HR: 94 % DurationHeart Rate Stage (mm:ss) (bpm) BP Comment baseline 89 118/62no chest pain stage 1 3:00 120 134/70no chest pain stage 2 3:00 151 158/70no chest pain stage 3 3:00 166 174/90no chest pain. 4ml definity given total recovery 102 126/80no chest pain Stress Duration: 9:00 mm:ss Maximum Stress HR: 166 bpm METS: 10 Baseline Echocardiogram Findings Stress Echo Wall motion Data Resting WM Intermediate WM Stress WM Resting Wall Motion Wall Motion Stress All segments Normal. All segments Hyperkinetic. Ejection Fraction 60 %. Ejection Fraction 70 %. Stress Results Heart rate response: Appropriate Blood pressure: Normal resting blood pressure-appropriate response Arrhythmias: None Functional capacity: Good Stopped secondary to: Dyspnea. EKG Data Baseline ECG: Normal sinus rhythm. Exercise ECG: Somatic motion/artifact with no obvious ECG changes. Symptoms with Stress No complaint of chest discomfort during exercise or recovery. Interpretation Summary 1. Contrast injection performed 2. Negative (adequate) stress echocardiogram Ordering Physician: Delores Chowdhury Referring Physician: Devin Jolly MD Performed By: Grecia Hull, RDCS, RVT
== END ==
PROVIDERS: PCP Family Medicine; Referring Provider Physician Assistant; Visit Provider Physician Assistant
DX: I25.10 Atherosclerotic heart disease of native coronary artery without angina pectoris (principal); Z86.79 Personal history of other diseases of the circulatory system
CPT/HCPCS: 93017; 93350; Q9957; A4216; C8928

== ENCOUNTER 2021-03-15 18:07 | Observation (INO) | payer MEDICAID, SELFPAY ==
[2021-03-15] VITALS (8 sets, daily range): BP systolic 144–154; BP diastolic 85–105; PULSE 64–89; RESP 18–22; TEMP 36.1–37.1; O2SAT 95–100; BMI 24.3; BMI 23.8
--- NOTE | 2021-03-15 18:20 | EKG12_ITS ---
Test Reason : CP Blood Pressure : / mmHG Vent. Rate : 065 BPM Atrial Rate : 065 BPM P-R Int : 136 ms QRS Dur : 090 ms QT Int : 414 ms P-R-T Axes : 042 021 031 degrees QTc Int : 430 ms Normal sinus rhythm Normal ECG Confirmed by KASSIE MORENO, MIKE ([id number]), editor school photograph SAMANTHA STORY ([id number]) on 03/16/2021 1:06:54 PM Referred By: Confirmed By:MIKE FERNANDO MD
[2021-03-15] MEDS: Aspirin 81 MG TAB.CHEW 324 MG PO (18:33)
[2021-03-15] MEDS: Nitroglycerin SL (ED/IMG/CATH) 0.4 MG TABLET SL (18:45)
[2021-03-15 18:47] LABS: Absolute Lymphocyte Count 3.64 X10^3/uL (0.83-4.51); Absolute Neutrophil Count 6.2 X10^3/uL (2.0-7.7); Basophil# 0.12 X10^3/uL; Basophil% 1.1 % (0-1); Eosinophil# 0.27 X10^3/uL; Eosinophils% 2.4 % (0-5); Lymphocyte # 3.64 X10^3/ul (0.83-4.51); Lymphocyte % 32.5 % (19-41); Mean Corp Hgb Conc 31.6 g/dL (32-36); Mean Corpuscular Hgb 28.4 pg (27.0-32.0); Mean Corpuscular Volume 89.8 fL (81-99); Mean Platelet Vol. 9.4 fl (6.2-12.0); Monocyte# 0.98 X10^3/uL; Monocyte% 8.7 % (0-10); NRBC Flagged by Analyzer 0 % (0-5); Neutrophil # 6.17 X10^3/uL (2.7-7.7); Platelet Count 433 K/mm3 (150-450); RBC Distribution Width CV 14.6 % (11.6-14.6); RBC Distribution Width SD 48.2 fl (35.1-43.9); Red Blood Count 4.23 M/mm3 (4.2-5.4); White Blood Count 11.2 K/mm3 (4.4-11.0)
--- NOTE | 2021-03-15 18:57 | RAD_ITS ---
STUDY: X-RAY CHEST REASON FOR EXAM: Female, 46 years old. chest pain TECHNIQUE: AP COMPARISON: None. FINDINGS: EKG leads project over the chest. The lungs are clear and expanded. There is no demonstrated pleural abnormality. Normal size heart. Normal mediastinum and filomena. Normal visualized pulmonary arteries. Normal visualized aortic arch and descending thoracic aorta. Normal visualized thoracic spine. Normal visualized ribs, clavicles, and shoulders. There is no demonstrated abnormality of the visualized soft tissue structures of the upper abdomen. RAD/Chest 1 View (Portable) IMPRESSION: Nonacute portable x-ray examination of the chest. Electronically Signed: Bony Mercedes MD ([place]) at 19:24 EDT , Service support ,
--- NOTE | 2021-03-15 19:00 | EDS_ITS ---
HPI History of Present Illness Chief Complaint: Chest Pain Informant: patient Narrative Narrative: 46-year-old female presents with concern for chest pain. States is been present over the past 2 to 3 days. States is been constant but worsens until she takes her nitroglycerin and then resolves. States she does has a past medical history of vasospasm. States he has also been diagnosed with coronary artery disease. Admits to nausea without vomiting. Denies any shortness of breath or diaphoresis. Patient is a current heavy smoker. Denies any history of DVT or pulmonary embolism. Denies any recent long trips or hospitalizations Prior Similar Symptoms: Yes Recent Illness/Hospitalization: No CVD Risk Factors: Positive for Hypercholesterolemia and Smoking [facility] Medical History Arthritis child Heart disease Hemorrhoids HTN (hypertension) Lung disease Shoulder pain Stomach ulcer Home Medications pantoprazole 40 mg PO BID 04/09/14 [History Last Taken 06/17/20] atorvastatin 40 mg PO DAILY 03/28/19 [History Last Taken 06/17/20] cetirizine 10 mg PO DAILY 04/14/20 [History Last Taken 06/17/20] buspirone 15 mg PO TID 06/17/20 [History Last Taken 06/17/20] gabapentin 400 mg PO TID 06/17/20 [History Last Taken 06/17/20] venlafaxine 150 mg PO DAILY 06/17/20 [History Last Taken 06/17/20] Allergy/AdvReac Type Severity Reaction Status Date / Time doxycycline Allergy Unknown Verified 06/17/20 15:31 erythromycin base Allergy Chest Verified 06/17/20 15:31 [Erythromycin Base] tightness Penicillins Allergy Unknown Verified 06/17/20 15:31 tramadol HCl [From Ultram] Allergy Swelling Verified 06/17/20 15:31 cefdinir [From Omnicef] AdvReac Other Verified 06/17/20 15:31 risperidone [From Risperdal] AdvReac Unknown Verified 06/17/20 15:31 valacyclovir HCl AdvReac Nausea Verified 06/17/20 15:31 [From Valtrex] Family History Other Arthritis Cancer Diabetes Heart disease Stomach ulcer Surgical History History of ankle surgery Social History Smoking Status: Current every day smoker ROS ROS ED Constitutional Constitutional ED: Denies chills, fever(s) or sweats Eyes Eyes: Denies blurry vision, change in vision or diplopia ENT ENT ED: Denies rhinorrhea or sore throat Cardiovascular Cardiovascular: Reports chest pain; Denies orthopnea, palpitations or racing heartbeat Respiratory/Chest Respiratory/Chest: Denies cough, dyspnea, dyspnea on exertion, orthopnea or sputum Gastrointestinal Gastrointestinal: Reports nausea; Denies abdominal pain, constipation, diarrhea, melena or vomiting Genitourinary Genitourinary ED: Denies dysuria, hematuria or urinary frequency Musculoskeletal Musculoskeletal: Denies arthralgias, myalgias or neck pain Integumentary Denies rash Neurologic Neurologic: Denies headache(s), paresthesias or weakness Psychiatric Psychiatric: Denies anxiety or depression Hematologic/Lymphatic Hematologic/Lymphatic: Denies easy bleeding or easy bruising Allergic/Immunologic Allergic/Immunologic ED: Denies mouth swelling or tongue swelling EXAM Physical Exam Const Vital Signs: 03/15/21 18:07 03/15/21 18:10 03/15/21 18:38 Temperature 97 F L Temperature Source Temporal Pulse Rate 89 Respiratory Rate 22 H Respiratory Effort Normal Non-Labored Blood Pressure 144/85 H Blood Pressure Mean 104 Pulse Ox 100 100 Oxygen Delivery Method Room Air Room Air 03/15/21 18:45 Temperature Temperature Source Pulse Rate 77 Respiratory Rate Respiratory Effort Blood Pressure 148/95 H Blood Pressure Mean Pulse Ox Oxygen Delivery Method Positive well nourished and well developed General Appearance ED: well developed HEENT Reports TM's clear and moist mucous membranes normocephalic and atraumatic Tympanic Membrane ED: Yes TM's clear Eyes PERRL and EOMs intact bilaterally Neck no lymphadenopathy, supple and no JVD Chest Wall inspection of chest normal Resp normal respiratory effort and clear to auscultation bilaterally Cardio regular rate, S1 normal heart sound, S2 normal heart sound and no murmurs Peripheral Pulses: pulses 2+ throughout GI soft to palpation, non-tender and non-distended Back/Spine no CVA tenderness and no thoracic nor lumbar tenderness Extremity normal to inspection General Extremety ED: Negative for edema or tenderness General Extremity: Negative for edema Neuro oriented x3, CN's II-XII intact bilaterally and no sensory deficits noted Sensorium / Orientation: alert Motor Exam: strength 5/5 throughout Psych mental status grossly normal Skin no rashes or lesions noted Heart Score History: Highly Suspicious ECG: Normal Age: </= 45 years Risk Factors: >/= 3 Risk Factors or History of CAD Troponin: </= Normal Limit Score: 4 MDM MDM MDM Narrative Medical decision making narrative: Patient appears well nontoxic. Vital signs within normal limits. Chest x-ray interpreted by myself shows no acute abnormality. Radiology concurs. EKG nonischemic. Troponin negative. Patient given aspirin and nitroglycerin which did reduce her pain. Was having some continued right-sided shoulder pain and was given morphine as well as Zofran. Given the patient's history of coronary artery disease as well as resolution with nitroglycerin she will be admitted for further treatment and evaluation. Stable at time of admission. Lab Data Attestation: I reviewed the patient's lab results. Labs: Laboratory Results - last 24 hr 03/15/21 03/15/21 18:40 18:40 WBC 11.2 H RBC 4.23 Hgb 12.0 Hct 38.0 MCV 89.8 MCH 28.4 MCHC 31.6 L RDW Std Deviation 48.2 H RDW Coeff of [place] 14.6 Plt Count 433 MPV 9.4 Immature Gran % (Auto) 0.300 Neut % (Auto) 55.0 Lymph % (Auto) 32.5 [place] % (Auto) 8.7 Eos % (Auto) 2.4 Baso % (Auto) 1.1 H Absolute Neuts (auto) 6.2 Absolute Lymphs (auto) 3.64 Nucleated RBC % 0 Sodium 141 Potassium 3.1 L Chloride 103 Carbon Dioxide 29.0 Anion Gap 9 BUN 9 Creatinine 0.86 Estim Creat Clear Calc 65.34 Est GFR (MDRD) Af Amer 92 Est GFR (MDRD) Non-Af 76 BUN/Creatinine Ratio 10.5 Glucose 84 Calcium 8.9 Troponin I < 0.015 Radiography Chest X-Ray - ED: 1 View, Read by ED Physician, Read by Radiologist and Normal Rhythm Strip Rhythm Strip: Sinus Rhythm Rate: 65 Ectopy: None EKG Initial EKG: Attestation: I personally reviewed and interpreted this EKG as follows: Interpretation: Sinus Rhythm and No Acute Injury Pattern Comments: Normal sinus rhythm at 65 bpm. AL interval 136 ms. QTC of 430 ms. Discharge Plan Triage Chief Complaint: Chest Pain ED Provider: Cj Antony Dx/Rx/DC Orders Clinical Impression: Chest pain, Coronary artery disease Prescriptions: No Action pantoprazole 40 MG tablet 40 mg PO BID RF: 0 atorvastatin 40 MG tablet 40 mg PO DAILY RF: 0 cetirizine 10 MG tablet 10 mg PO DAILY RF: 0 gabapentin 400 MG capsule 400 mg PO TID RF: 0 buspirone 15 MG tablet 15 mg PO TID RF: 0 venlafaxine 150 MG tablet extended release 24hr 150 mg PO DAILY RF: 0 Primary Care Provider: Martinez Cohen Referrals: Martinze Cohen MD [Primary Care Provider] - 2 Days Disposition Disposition: Acute Care Hospital [facility]
[2021-03-15 19:06] LABS: Anion Gap 9 (5-15); BUN 9 mg/dL (7-18); BUN/Creat Ratio 10.5 RATIO (10-20); Calcium,Total 8.9 mg/dL (8.5-10.1); Chloride 103 mmol/L (98-107); Creatinine, Serum 0.86 mg/dL (0.55-1.02); EST Glomerular Filtration Rate 76 mL/min (>60); Est Glom Filt Rate - Afr Amer 92 mL/min (>60); Estimated Creatinine Clearance 65.34 ml/min; Glucose 84 mg/dL (74-106); Potassium 3.1 mmol/L (3.5-5.1); Sodium Level 141 mmol/L (136-145)
[2021-03-15] MEDS: Potassium Chloride Oral Tablet 20 MEQ 40 MEQ PO (19:18)
[2021-03-15] MEDS: Ondansetron 4 MG/2 ML Vial IV (20:03)
[2021-03-15] MEDS: Morphine 4 MG/ML Syringe IV ×2 (20:03→23:04)
--- NOTE | 2021-03-15 20:10 | ED.RN ---
THIS RN UNABLE TO CHART DISPO ADMIT. VITAL SIGNS BP 154/105, HR 73, SPO2 100% RA, 18 R. JEN THAYER PRIMARY VISITOR.
--- NOTE | 2021-03-15 20:15 | HP.PCM_ITS ---
Documented by User: SNEHA De Leon 03/15/21 20:34 HPI - General General Date of Admission: 03/15/21 HPI Narrative IVAN JUDD, is a 46 F who presents today with chest pain that has been gradually getting worse over the past 2 to 3 days. Patient states that when she takes nitro at home the pain subsides but always comes back. Patient reports pain is 8 out of 10 in her left midsternal chest and radiates up the left side of her neck into her jaw. Initial troponin is negative and EKG shows normal sinus rhythm. Patient also reports shortness of breath with exertion associated with chest pain. [facility] Medical History Arthritis child Heart disease Hemorrhoids HTN (hypertension) Lung disease Shoulder pain Stomach ulcer Home Medications pantoprazole 40 mg PO BID 04/09/14 [History Last Taken 06/17/20] atorvastatin 40 mg PO DAILY 03/28/19 [History Last Taken 06/17/20] cetirizine 10 mg PO DAILY 04/14/20 [History Last Taken 06/17/20] buspirone 15 mg PO TID 06/17/20 [History Last Taken 06/17/20] gabapentin 400 mg PO TID 06/17/20 [History Last Taken 06/17/20] venlafaxine 150 mg PO DAILY 06/17/20 [History Last Taken 06/17/20] Allergy/AdvReac Type Severity Reaction Status Date / Time doxycycline Allergy Unknown Verified 06/17/20 15:31 erythromycin base Allergy Chest Verified 06/17/20 15:31 [Erythromycin Base] tightness Penicillins Allergy Unknown Verified 06/17/20 15:31 tramadol HCl [From Ultram] Allergy Swelling Verified 06/17/20 15:31 cefdinir [From Omnicef] AdvReac Other Verified 06/17/20 15:31 risperidone [From Risperdal] AdvReac Unknown Verified 06/17/20 15:31 valacyclovir HCl AdvReac Nausea Verified 06/17/20 15:31 [From Valtrex] Family History Other Arthritis Cancer Diabetes Heart disease Stomach ulcer Surgical History History of ankle surgery Social History Smoking Status: Current every day smoker ROS Constitutional Constitutional: Denies chills, fatigue or malaise Cardiovascular Cardiovascular: Reports chest pain, dyspnea on exertion, nausea and radiating jaw, neck or arm pain Respiratory/Chest Respiratory/Chest: Denies cough, hemoptysis or wheezing Gastrointestinal Gastrointestinal: Reports nausea; Denies abdominal pain, constipation, diarrhea or vomiting Genitourinary Genitourinary: Denies dysuria or hematuria Musculoskeletal Musculoskeletal: Denies back pain, extremity pain or joint pain Integumentary Integumentary: Denies dry skin, rash or wounds Neurologic Neurologic: Denies abnormal gait or abnormal speech Psychiatric Psychiatric: Reports anxiety and depression Endocrine Endocrinology: Denies change in body appearance, cold intolerance or heat intolerance Hematologic/Lymphatic Hematologic/Lymphatic: Denies anemia, easy bleeding or easy bruising Vital Signs Vital Signs Vital Signs: 03/15/21 18:07 03/15/21 18:10 03/15/21 18:38 Temperature 97 F L Temperature Source Temporal Pulse Rate 89 Respiratory Rate 22 H Respiratory Effort Normal Non-Labored Blood Pressure 144/85 H Blood Pressure Mean 104 Pulse Ox 100 100 Oxygen Delivery Method Room Air Room Air 03/15/21 18:45 03/15/21 20:00 Temperature 98.7 F Temperature Source Oral Pulse Rate 77 73 Respiratory Rate 18 Respiratory Effort Blood Pressure 148/95 H 154/105 H Blood Pressure Mean 121 Pulse Ox 100 Oxygen Delivery Method Room Air Physical Exam Const alert and oriented x3 General Appearance: cooperative HEENT normocephalic and head/scalp atraumatic Eyes PERRL Neck supple, no JVD and thyroid normal General: trachea midline Lymph Lymphatic: no lymphadenopathy noted Resp normal respiratory effort, normal air movement and clear to auscultation bilaterally Cardio regular rate, regular rhythm, S1 normal heart sound and S2 normal heart sound GI normal to inspection, nondistended, normoactive bowel sounds, soft to palpation and non-tender Extremity normal capillary refill and no clubbing, cyanosis or edema Skin General Skin Exam: no breakdown and turgor normal Lesions: no lesions Rashes: no rashes Neuro CN's II-XII intact bilaterally Psych thought process normal, cooperative and affect normal Appearance: appropriate Lab / Micro Data Result Diagrams: 03/15/21 18:40 03/15/21 18:40 Labs: Laboratory Results - last 24 hr 03/15/21 03/15/21 18:40 18:40 WBC 11.2 H RBC 4.23 Hgb 12.0 Hct 38.0 MCV 89.8 MCH 28.4 MCHC 31.6 L RDW Std Deviation 48.2 H RDW Coeff of [place] 14.6 Plt Count 433 MPV 9.4 Immature Gran % (Auto) 0.300 Neut % (Auto) 55.0 Lymph % (Auto) 32.5 [place] % (Auto) 8.7 Eos % (Auto) 2.4 Baso % (Auto) 1.1 H Absolute Neuts (auto) 6.2 Absolute Lymphs (auto) 3.64 Nucleated RBC % 0 Sodium 141 Potassium 3.1 L Chloride 103 Carbon Dioxide 29.0 Anion Gap 9 BUN 9 Creatinine 0.86 Estim Creat Clear Calc 65.34 Est GFR (MDRD) Af Amer 92 Est GFR (MDRD) Non-Af 76 BUN/Creatinine Ratio 10.5 Glucose 84 Calcium 8.9 Troponin I < 0.015 Rhythm Strip Rhythm Strip: Sinus Rhythm Rate: 65 Ectopy: None Assessment & Plan Assessment/Plan (1) Chest pain: (2) Hypokalemia: (3) Coronary artery disease: (4) HTN (hypertension): QUALIFIERS: Hypertension type: essential hypertension Qualified Code(s): I10 - Essential (primary) hypertension (5) Anxiety and depression: (6) Tobacco abuse: (7) Marijuana use: PLAN: 1. Chest pain -Admit to PCU for cardiac monitoring, HEART4/ROMERO-3 -Trend cardiac enzymes -Patient recently had stress echo on 11/26/2020 which was normal -Consult cardiology due to known CAD, last heart cath 7 years ago -O2 per protocol, currently on room air -CBC CMP and lipid panel in a.m. 2. Hypokalemia -Patient received potassium chloride 40 MEQ in ER -Will repeat CMP in a.m. 3. Coronary artery disease -Patient not currently on antiplatelet therapy. 4. Hypertension -Patient not currently on medication therapy 5. Anxiety and depression -Continue venlafaxine, gabapentin, buspirone. 6. Tobacco abuse -Inpatient tobacco cessation ordered -NicoDerm patch ordered 7. Marijuana use -Smokes daily DVT Prophylaxis-not indicated, observation status This patient was seen by SNEHA De Leon under the supervision of Dr. Orozco. Documented by User: Dr. Rai Orozco MD 03/15/21 21:05 HPI - General General Date of Admission: 03/15/21 [facility] Medical History Arthritis child Heart disease Hemorrhoids HTN (hypertension) Lung disease Shoulder pain Stomach ulcer Home Medications pantoprazole 40 mg PO BID 04/09/14 [History Last Taken 06/17/20] atorvastatin 40 mg PO DAILY 03/28/19 [History Last Taken 06/17/20] cetirizine 10 mg PO DAILY 04/14/20 [History Last Taken 06/17/20] buspirone 15 mg PO TID 06/17/20 [History Last Taken 06/17/20] gabapentin 400 mg PO TID 06/17/20 [History Last Taken 06/17/20] venlafaxine 150 mg PO DAILY 06/17/20 [History Last Taken 06/17/20] Allergy/AdvReac Type Severity Reaction Status Date / Time doxycycline Allergy Unknown Verified 06/17/20 15:31 erythromycin base Allergy Chest Verified 06/17/20 15:31 [Erythromycin Base] tightness Penicillins Allergy Unknown Verified 06/17/20 15:31 tramadol HCl [From Ultram] Allergy Swelling Verified 06/17/20 15:31 cefdinir [From Omnicef] AdvReac Other Verified 06/17/20 15:31 risperidone [From Risperdal] AdvReac Unknown Verified 06/17/20 15:31 valacyclovir HCl AdvReac Nausea Verified 06/17/20 15:31 [From Valtrex] Family History Other Arthritis Cancer Diabetes Heart disease Stomach ulcer Surgical History History of ankle surgery Social History Smoking Status: Current every day smoker Lab / Micro Data Result Diagrams: 03/15/21 18:40 03/15/21 18:40 Addendum Addendum: Patient was independently observed. I agree with assessment and plan by Randi Ang. In summary, patient is a 46-year-old male with a significant history of CAD and Prinzmetal angina who presents emergency department with left-sided chest pain that started 2 days before presentation. The chest pain radiates to her left neck where it is more prominent. It also radiates to her left arm and left jaw. She described her chest pain as heaviness pressure and tightening. Initially the chest pain was intermittent but later on it became persistent. She took nitroglycerin at home and give her some relief. Also she was given morphine and nitroglycerin at the emergency department and it gave her some relief. She denies any aggravating factors to the pain. She reported that 7 years ago she had a coronary cath at our hospital ([facility]) because her vessels could not be very well visualized she was transferred to outside hospital where another cardiac cath was done. Reportedly at another hospital she was found to have a blockage but did not require any intervention. Also she was found to have vasospasms. Alert and oriented x3 Nontraumatic; normocephalic Lung clear to auscultate Heart sounds S1-S2. No murmur, gallop or rubs. Abdomen bowel sounds present soft, nontender nondistended Extremity without edema cyanosis or clubbing. Place on a monitored bed at progressive care unit Actual CXR image was independently visualized. Showed some hyper inflation with mild flattening of the diaphragm. No acute cardiopulmonary process was noted. Actual EKG tracing was independently visualized. EKG tracing showed sinus rhythm. ASA 81 mg p.o. daily ordered SL NTG 0.4 mg prn as needed for chest pain ordered Morphine as needed for pain ordered We will check lipid panel. Statin: High intensity statin continue Initial troponin was negative. Trend troponin. Stat EKG as needed for chest pain Review of records show that patient had cardiac catheterization on 04/09/2014 at our hospital. Discharge summary at that time showed coronary artery di sease?left main and right coronary artery?with preserved ejection fraction. Reportedly obstruction was 40 to 50%. An ejection fraction was 50%. Review of requested the patient had stress echo in May 2021 the stress echo was negative. At this time will consult cardiology. Hypertension As needed hydralazine IV ordered. Trend blood pressure and adjust blood pressure medications. Depression/anxiety Effexor continued. Hypokalemia Replace Trend BMP. Visit Charges OBSV E&M: 12902 Initial observation care L3
--- NOTE | 2021-03-15 20:36 | EKG12_ITS ---
Test Reason : CP ADMIT Blood Pressure : / mmHG Vent. Rate : 064 BPM Atrial Rate : 064 BPM P-R Int : 130 ms QRS Dur : 088 ms QT Int : 450 ms P-R-T Axes : 042 028 034 degrees QTc Int : 464 ms Normal sinus rhythm with sinus arrhythmia Normal ECG When compared with ECG of 15-MAR-2021 18:11, MANUAL COMPARISON REQUIRED, DATA IS UNCONFIRMED Confirmed by KASSIE MORENO, MIKE ([id number]), society editor SAMANTHA STORY ([id number]) on 03/17/2021 8:52:19 AM Referred By: XI Confirmed By:MIKE FERNANDO MD
[2021-03-15 20:41] LABS: Magnesium 1.7 mg/dL (1.6-2.6)
[2021-03-15] MEDS: busPIRone 15 MG TABLET PO (22:18)
[2021-03-15] MEDS: Atorvastatin Calcium 40 MG Tablet PO (22:18)
[2021-03-15] MEDS: Acetaminophen 325 MG Tablet 650 MG PO (22:18)
[2021-03-15] MEDS: Pantoprazole Sodium 40 MG Tablet PO (22:18)
[2021-03-15] MEDS: Gabapentin 400 MG Capsule PO (22:19)
[2021-03-16] VITALS (17 sets, daily range): BP systolic 131–170; BP diastolic 79–116; PULSE 59–74; RESP 12–18; TEMP 36.4–36.7; O2SAT 95–100
[2021-03-16] MEDS: Ondansetron 4 MG/2 ML Vial IV (04:59)
[2021-03-16] MEDS: busPIRone 15 MG TABLET PO ×2 (04:59→14:43)
[2021-03-16] MEDS: Gabapentin 400 MG Capsule PO ×2 (04:59→14:43)
[2021-03-16] MEDS: Morphine 4 MG/ML Syringe IV ×3 (04:59→16:09)
[2021-03-16 06:31] LABS: Absolute Lymphocyte Count 4.08 X10^3/uL (0.83-4.51); Absolute Neutrophil Count 4.5 X10^3/uL (2.0-7.7); Basophil# 0.12 X10^3/uL; Basophil% 1.2 % (0-1); Eosinophil# 0.41 X10^3/uL; Eosinophils% 4.2 % (0-5); Hematocrit 40.8 % (37-47); Hemoglobin 12.8 g/dL (12.0-15.0); Lymphocyte # 4.08 X10^3/ul (0.83-4.51); Lymphocyte % 41.4 % (19-41); Mean Corp Hgb Conc 31.4 g/dL (32-36); Mean Corpuscular Hgb 28.9 pg (27.0-32.0); Mean Corpuscular Volume 92.1 fL (81-99); Mean Platelet Vol. 9.5 fl (6.2-12.0); Monocyte# 0.75 X10^3/uL; Monocyte% 7.6 % (0-10); NRBC Flagged by Analyzer 0 % (0-5); Neutrophil # 4.48 X10^3/uL (2.7-7.7); Neutrophil % 45.4 % (47-70); Platelet Count 442 K/mm3 (150-450); RBC Distribution Width CV 14.5 % (11.6-14.6); RBC Distribution Width SD 49.2 fl (35.1-43.9); Red Blood Count 4.43 M/mm3 (4.2-5.4); White Blood Count 9.9 K/mm3 (4.4-11.0)
[2021-03-16 07:06] LABS: ALB/GLOB Ratio 0.9 RATIO (0.9-2.4); AST(SGOT) 14 U/L (15-37); Alanine Aminotransfer ALT/SGPT 20 U/L (13-56); Albumin, Serum 3.2 g/dL (3.2-5.0); Alkaline Phosphatase 97 U/L (45-117); Anion Gap 4 (5-15); BUN 9 mg/dL (7-18); BUN/Creat Ratio 11.2 RATIO (10-20); Calcium,Total 8.6 mg/dL (8.5-10.1); Chloride 106 mmol/L (98-107); Cholesterol 138 mg/dL (200); Creatinine, Serum 0.81 mg/dL (0.55-1.02); EST Glomerular Filtration Rate 82 mL/min (>60); Est Glom Filt Rate - Afr Amer 99 mL/min (>60); Estimated Creatinine Clearance 69.37 ml/min; Globulin 3.6 g/dL (2.2-4.2); Glucose 91 mg/dL (74-106); High Density Lipoprotein 48 mg/dL; Potassium 3.4 mmol/L (3.5-5.1); Protein, Total 6.8 g/dL (6.4-8.2); Sodium Level 139 mmol/L (136-145); Triglycerides 145 mg/dL; Very Low Density Lipoprotein 29 mg/dL (5-40)
[2021-03-16] MEDS: 0.9% Saline Lock 10 ML Syringe IV ×3 (09:08→16:10)
[2021-03-16 09:12] LABS: Internal QC Validated? YES +Cl - CLEAR BKGD; Pregnancy, Serum, hCG Quali. NEGATIVE Negative
--- NOTE | 2021-03-16 09:31 | PCM.CONS.C ---
Assessment & Plan Assessment/Plan (1) Chest pain: PLAN: The patient presents with recurrent chest discomfort. She did undergo a cardiac catheterization in 2013 which demonstrated nonobstructive coronary disease. She has undergone a stress test earlier this year which did not demonstrate any angina. She continues to present with chest discomfort. I would recommend at this point that we perform a left heart catheterization to definitively exclude obstructive coronary disease. Depending on the findings further recommendations will be made. I have explained the above to her, the risk benefits alternatives she understands and agrees to proceed. Addendum: Cardiac catheterization this afternoon demonstrated the following: Normal left main coronary artery. Left anterior descending artery with no significant disease. First diagonal vessel with 40 to 50% stenosis. Left circumflex artery with no high-grade stenosis. Dominant right coronary artery with 60% mid to distal stenosis. The patient underwent FFR of the above and it was determined to be insignificant. Aggressive medical therapy, smoking cessation, statins, and aspirin will be instituted. (2) HTN (hypertension): QUALIFIERS: Hypertension type: essential hypertension Qualified Code(s): I10 - Essential (primary) hypertension PLAN: BP under control at this particular time and I would not make any changes. Thank you for allowing me to participate in the care of your patient. Please don't hesitate to call if any issues arise. HPI Consult Data Date of Consult: 03/16/21 HPI Narrative HPI Narrative: IVAN JUDD, is a 46 F who presents with chest discomfort. She has presented repeatedly with chest discomfort this year. She underwent a stress echocardiogram which demonstrated no evidence of ischemia. She says that the chest pain is sharp and occasionally dull and radiates to her left side. It does not necessarily occur with exertion. There is no dizziness or diaphoresis no near syncope or syncope. She presented to the emergency room was admitted she ruled out for myocardial infarction. She had undergone a stress test earlier this year. Cardiology was therefore consulted for further evaluation and management. [facility] Medical History Arthritis child Heart disease Hemorrhoids HTN (hypertension) Lung disease Shoulder pain Stomach ulcer Home Medications pantoprazole 40 mg PO BID 04/09/14 [History Last Taken 06/17/20] atorvastatin 40 mg PO DAILY 03/28/19 [History Last Taken 06/17/20] cetirizine 10 mg PO DAILY 04/14/20 [History Last Taken 06/17/20] buspirone 15 mg PO TID 06/17/20 [History Last Taken 06/17/20] gabapentin 400 mg PO TID 06/17/20 [History Last Taken 06/17/20] venlafaxine 150 mg PO DAILY 06/17/20 [History Last Taken 06/17/20] Allergy/AdvReac Type Severity Reaction Status Date / Time doxycycline Allergy Unknown Verified 06/17/20 15:31 erythromycin base Allergy Chest Verified 06/17/20 15:31 [Erythromycin Base] tightness Penicillins Allergy Unknown Verified 06/17/20 15:31 tramadol HCl [From Ultram] Allergy Swelling Verified 06/17/20 15:31 cefdinir [From Omnicef] AdvReac Other Verified 06/17/20 15:31 risperidone [From Risperdal] AdvReac Unknown Verified 06/17/20 15:31 valacyclovir HCl AdvReac Nausea Verified 06/17/20 15:31 [From Valtrex] Family History Other Arthritis Cancer Diabetes Heart disease Stomach ulcer Surgical History History of ankle surgery Social History Smoking Status: Current every day smoker ROS Review of Systems ROS Unobtainable: Denies due to encephalopathy, due to endotracheal tube, due to mental condition, due to mental status or other Constitutional Constitutional: Reports systems reviewed and no addt'l complaints, except as documented Eyes Eyes: Reports as per HPI ENT HEENT: Reports as per HPI Cardiovascular Cardiovascular: Reports chest pain and chest pain at rest Respiratory/Chest Respiratory/Chest: Reports dyspnea Gastrointestinal Gastrointestinal: Reports as per HPI Genitourinary Genitourinary: Reports as per HPI Musculoskeletal Musculoskeletal: Reports as per HPI Integumentary Integumentary: Reports as per HPI Neurologic Neurologic: Reports as per HPI Psychiatric Psychiatric: Reports as per HPI Endocrine Endocrinology: Reports as per HPI Hematologic/Lymphatic Hematologic/Lymphatic: Reports as per HPI Physical Exam Const oriented x3 and healthy appearing Orientation / Consciousness: awake HEENT normocephalic Eyes PERRL and conjunctivae normal Neck supple, no JVD and no carotid bruits Chest inspection of chest normal Resp normal respiratory effort and clear to auscultation bilaterally Cardio Palpation: normal PMI Rate: regular rate Rhythm: regular rhythm Heart Sounds: S1 normal and S2 normal Peripheral Pulses: pulses 2+ throughout GI normal to inspection, nondistended, normoactive bowel sounds Extremity normal to inspection and no clubbing, cyanosis or edema Psych mental status grossly normal
[2021-03-16] MEDS: Potassium Chloride Oral Tablet 20 MEQ 40 MEQ PO (09:59)
[2021-03-16] MEDS: 0.9% Normal Saline 1,000 ML 15 ML IV (10:00)
--- NOTE | 2021-03-16 11:16 | PN.HOSP_ITS ---
Documented by User: Lindsay Casey NP, PERFORMING ARTS ROAD MANAGER-C 03/16/21 11:24 Subjective Subjective: Patient seen and examined. Reports continued mild chest discomfort which goes up into her left jaw. Denies shortness of breath. Plan for heart cath. Objective Data Objective Data Vital Signs: Vital Signs Temp Pulse Resp BP Pulse Ox 97.8 F 68 12 135/79 H 98 03/16/21 08:24 03/16/21 09:05 03/16/21 08:24 03/16/21 09:05 03/16/21 09:05 Oxygen Delivery Method Room Air Weight: 130 lb 8 oz Body Mass Index (BMI) 23.8 Intake & Output: Intake and Output for Last 24 Hours 03/14/21 03/15/21 03/16/21 23:59 23:59 23:59 Intake Total 480 / 480 0 / 0 Balance 480 / 480 0 / 0 Lab / Micro Data Result Diagrams: 03/16/21 06:18 03/16/21 06:18 Labs: Laboratory Results - last 24 hr 03/15/21 03/15/21 03/15/21 18:40 18:40 18:40 WBC 11.2 H RBC 4.23 Hgb 12.0 Hct 38.0 MCV 89.8 MCH 28.4 MCHC 31.6 L RDW Std Deviation 48.2 H RDW Coeff of Clark 14.6 Plt Count 433 MPV 9.4 Immature Gran % (Auto) 0.300 Neut % (Auto) 55.0 Lymph % (Auto) 32.5 [place] % (Auto) 8.7 Eos % (Auto) 2.4 Baso % (Auto) 1.1 H Absolute Neuts (auto) 6.2 Absolute Lymphs (auto) 3.64 Nucleated RBC % 0 Sodium 141 Potassium 3.1 L Chloride 103 Carbon Dioxide 29.0 Anion Gap 9 BUN 9 Creatinine 0.86 Estim Creat Clear Calc 65.34 Est GFR (MDRD) Af Amer 92 Est GFR (MDRD) Non-Af 76 BUN/Creatinine Ratio 10.5 Glucose 84 Calcium 8.9 Phosphorus Magnesium 1.7 Total Bilirubin AST ALT Alkaline Phosphatase Troponin I < 0.015 Total Protein Albumin Globulin Albumin/Globulin Ratio Triglycerides Cholesterol LDL Cholesterol VLDL Cholesterol HDL Cholesterol Serum , Qual 03/15/21 03/15/21 03/16/21 18:40 21:17 00:38 WBC RBC Hgb Hct MCV MCH MCHC RDW Std Deviation RDW Coeff of Clark Plt Count MPV Immature Gran % (Auto) Neut % (Auto) Lymph % (Auto) [place] % (Auto) Eos % (Auto) Baso % (Auto) Absolute Neuts (auto) Absolute Lymphs (auto) Nucleated RBC % Sodium Potassium Chloride Carbon Dioxide Anion Gap BUN Creatinine Estim Creat Clear Calc Est GFR (MDRD) Af Amer Est GFR (MDRD) Non-Af BUN/Creatinine Ratio Glucose Calcium Phosphorus Magnesium Total Bilirubin AST ALT Alkaline Phosphatase Troponin I < 0.015 < 0.015 Total Protein Albumin Globulin Albumin/Globulin Ratio Triglycerides Cholesterol LDL Cholesterol VLDL Cholesterol HDL Cholesterol Serum , Qual NEGATIVE 03/16/21 03/16/21 06:18 06:18 WBC 9.9 RBC 4.43 Hgb 12.8 Hct 40.8 MCV 92.1 MCH 28.9 MCHC 31.4 L RDW Std Deviation 49.2 H RDW Coeff of Clark 14.5 Plt Count 442 MPV 9.5 Immature Gran % (Auto) 0.200 Neut % (Auto) 45.4 L Lymph % (Auto) 41.4 H [place] % (Auto) 7.6 Eos % (Auto) 4.2 Baso % (Auto) 1.2 H Absolute Neuts (auto) 4.5 Absolute Lymphs (auto) 4.08 Nucleated RBC % 0 Sodium 139 Potassium 3.4 L Chloride 106 Carbon Dioxide 29.0 Anion Gap 4 L BUN 9 Creatinine 0.81 Estim Creat Clear Calc 69.37 Est GFR (MDRD) Af Amer 99 Est GFR (MDRD) Non-Af 82 BUN/Creatinine Ratio 11.2 Glucose 91 Calcium 8.6 Phosphorus 3.0 Magnesium Total Bilirubin 0.40 AST 14 L ALT 20 Alkaline Phosphatase 97 Troponin I Total Protein 6.8 Albumin 3.2 Globulin 3.6 Albumin/Globulin Ratio 0.9 Triglycerides 145 Cholesterol 138 LDL Cholesterol 61 VLDL Cholesterol 29 HDL Cholesterol 48 Serum , Qual Rhythm Strip Rhythm Strip: Sinus Rhythm Rate: 65 Ectopy: None Physical Exam Const alert, oriented x3 and no apparent distress Orientation / Consciousness: awake, oriented to person, oriented to place and oriented to time HEENT normocephalic and moist oral mucous membranes Eyes PERRL, EOMs intact bilaterally and conjunctivae normal Neck no lymphadenopathy Resp normal respiratory effort and clear to auscultation bilaterally Cardio regular rate, regular rhythm and no murmurs Peripheral Pulses: pulses 2+ throughout GI normal to inspection, nondistended, normoactive bowel sounds, non-tender and non-distended Extremity normal to inspection Skin no rashes or lesions noted Lesions: no lesions Rashes: no rashes Trauma: no lacerations or abrasions Neuro oriented x3 Sensorium / Orientation: awake and alert Psych affect normal Assessment & Plan Assessment/Plan (1) Chest pain: PLAN: 1. Chest pain-normal stress echo 11/26/2020. Cardiology consulted. Plan for heart cath. Continue aspirin, statin. 2. Hypertension-stable, not on regimen. 3. Hyperlipidemia-continue statin. 4. Anxiety/depression-on venlafaxine, buspirone. 5. Tobacco dependence-encouraged cessation. 6. Chronic COPD/asthma-no exacerbation. DVT prophylaxis-low risk, not indicated This patient was seen by Lindsay Casey NP-C under the supervision of Dr. Aguilera. Documented by User: Dr. Joanie Aguilera MD 03/16/21 21:24 Objective Data Lab / Micro Data Result Diagrams: 03/16/21 06:18 03/16/21 06:18 Addendum Addendum: This patient was seen in conjunction with Lindsay Casey PERFORMING ARTS RO[address] MANAGER. I have independently interviewed and examined the patient and reviewed pertinent historical, laboratory, and other data. Please refer to her note for patient's presentation, findings, and recommendations. Patient was seen and examined. No acute events overnight. See discharge summary.
--- NOTE | 2021-03-16 11:31 | CASEMGMT ---
According to the [facility] website, the following tertiary facilities are in network: [facility], [place], [facility], [facility], [facility], [facility], [facility] and .
--- NOTE | 2021-03-16 11:53 | NURSING ---
Report called to DULCE Slater mobile home laborer.
--- NOTE | 2021-03-16 13:22 | CL.D_ITS ---
Patient Name: IVAN JUDD Study Date: 03/16/2021 Performing: Kemar Chase MD Ht: 61.81 inches 157 cm : 1975 Wt: 130.07 lbs 59 kg Age: 46 Gender: female BSA: 1.59 PROCEDURE(S) PERFORMED [id number]/COR/LV [id number], CORONARY OR GRAFT, INITIAL VESSEL CLINICAL PROFILE AND INDICATIONS Indications: Suspected CAD Heart Failure: None Stress/Imaging Stress/Image Study Performed: No CAD Presentations: Stable angina. CONCLUSIONS Moderate right coronary artery disease noted in the mid to distal segment. Equivocal CAD found not significant by FFR RECOMMENDATIONS Staged for FFR DESCRIPTION OF PROCEDURE The patient arrived to the procedure lab. The risks and benefits of the procedure as well as a full d escription of our services here and current unavailability of surgical backup were fully explained to the patient and/or their significant other prior to the catheterization. The Timeout was completed, verifying the correct patient and procedure. The patient's procedural site was prepped and draped in the usual fashion. Local anesthetic was given subcutaneously to right radial region with Lidocaine 2% . Using a modified Seldinger technique, arterial access was obtained via the right radial artery, a 6 Fr sheath was inserted. Left Coronary Artery selective angiography was performed in multiple views u sing a 5 Fr. 4.0 Burke catheter. Right Coronary Artery selective angiography was then performed in mu ltiple views using a 5 Fr. 4.0 Burke catheter. Left Ventriculography was performed in ESCUDERO projection using a 5 Fr. Pigtail catheter. LV to AO pullback pressures were then recorded.The arterial sheath was pulled and a TR Band was applied for hemostasis w/ 12ml air CORONARY ANGIOGRAPHY DOMINANCE: Right Dominant LEFT HEART ASSESSMENT Left Ventricular Ejection Fraction: by LV Gram 45 % Anterior Hypokinesis - Mild Normal Left Ventricular systolic function LEFT MAIN: Angiographically normal LEFT ANTERIOR DESCENDING ARTERY: Mild luminal irregularities DIAGONAL 1: Ostial - 60 % Stenosis CIRCUMFLEX ARTERY: Mild luminal irregularities RIGHT CORONARY ARTERY: DISTAL RCA: 60 % Stenosis COMPLICATIONS No Complications PROCEDURE MEDICATIONS Versed 1 mg IV Fentanyl 50 mcg IV Versed 1 mg IV Versed 1 mg IV Fentanyl 25 mcg IV Oxygen: 2 L/min via nasal cannula Baby Aspirin (81mg) 1 Tabs PO 03/16/2021 12:14:19 Brilinta 180 mg PO @ 03/16/2021 12:45:11 Heparin diluted in 23cc Heparinized saline. Patient given 10cc IA of this solution. 03/16/2021 12:29: 24 Heparin 6000 unit(s) IV 03/16/2021 12:50:40 Verapamil 2.5mg, Ntg 100mcgs, 2000 units of Heparin diluted in 23cc Heparinized saline. Patient give n 10cc IA of this solution. 03/16/2021 12:29:24 SUMMARY OF HEMODYNAMIC DATA Time AIR REST ECG 12:11:51 AO 134/80 (104) SA 12:31:43 LV 145/0, 11 12:37:24 LV 148/1, 10 12:37:30 LV 145/6, 15 12:38:04 LVp 142/6, 18 12:38:08 AOp 141/76 (104) 12:38:13 Signed By Kemar Chase MD On 03/16/2021 1:21:52 PM Kemar Chase MD
--- NOTE | 2021-03-16 13:33 | PCI.CARDCATH ---
PCI Cardiac Cath Report PCI Report: Procedure: IFR of distal RCA Clinical history: 46-year-old patient underwent cardiac catheterization by primary admitting supervisor Current angiography findings reviewed and discussed, has distal RCA eccentric atherosclerosis of 60% Based on the findings we will proceed with IFR of the distal RCA to determine the significance of the atherosclerosis. Indication: Patient had history of CAD with a distal RCA eccentric atherosclerosis of 60% Stress/imaging: Patient been evaluated with stress test which is negative. CAD presentation: Patient had longstanding history of smoking and was on medical therapy and had symptoms of chest pain. Summary: IFR measured x3 in this case which revealed the following findings ( 0.98?0.99) normal IFR finding. GDMT-guideline directed medical therapy Procedure Details The risks, benefits, complications, treatment options, and expected outcomes were discussed with the patient. The patient and/or family concurred with the proposed plan, giving informed consent. Patient was brought to the laborer cook house after IV hydration . Patient was further sedated with IV conscious sedation. Subject was prepped and draped in the usual manner. Using the modified Seldinger access technique, a 6 Divehi sheath was placed in the right radial artery. Standard diagnostic catheters were used. Exchanges were performed over J-wire. At the end of the procedures, all catheters and sheaths were removed and bleeding was stopped with closure device using TR band Findings: Left ventriculogram: Preserved LV systolic function, please note dictation by Dr. Chase Moderate Sedation: Conscious sedation was administered under my supervision with cardiorespiratory monitoring performed by independent and qualified nursing personnel. Medications and dosages are recorded separately in the electronic medical record. Hemodynamics: LV function preserved Please note finding of cardiac catheterization by Intervention Lesion: Distal RCA eccentric atherosclerosis of 60% Guiding Catheter used JR4 Guide Wire used: IFR wire. Procedure in detail: Risk-benefit procedure explained in detail we will proceed with the guide catheter which is a 6 Divehi JR4 advanced ascending aorta, cannulated the right coronary ostium without difficulty, angiographic views were obtained, will proceed with the IFR wire across the lesion in the distal RCA and measures IFR x3 for accuracy Patient was given Brilinta and aspirin prior to the procedure, as well was given heparin 6000 units. Noted no significant obstructive atherosclerosis of the distal RCA and decision was made to treat with medical therapy Estimated Blood Loss: Less than 5ml Complications: No complication in the Certified Legal Investigator Disposition condition: Patient will be transferred to the PCU Conclusion; nonobstructive atherosclerosis of the distal RCA 60%, very large dominant vessel With measurement by IFR/physiological assessment of the lesion revealed normal IFR 0.9?0.99 Recommendation; GDMT-guideline directed medical therapy. Susanna Mcgee MD,FACC,[facility]
[2021-03-16] MEDS: 0.9% Normal Saline 1,000 ML 75 ML IV (14:41)
[2021-03-16] MEDS: Venlafaxine XR 150 MG Capsule PO (14:42)
[2021-03-16] MEDS: Pantoprazole Sodium 40 MG Tablet PO (14:43)
--- NOTE | 2021-03-16 14:52 | PCM.DC ---
Discharge Instructions Diet Discharge Diet: Low fat / Low cholesterol Activity Discharge Activity: Return to Normal Activity and - (Follow-up postop cath instructions.) Dressing / Incision Call your doctor if you observe: Shortness of breath, Dizziness and Chest pain Follow Up Care Test Results: Test results from this visit will be discussed in further detail at your follow-up appointment, if applicable. Discharge Plan Admission Admit Date/Time: 03/15/21 20:13 Attending Provider: Joanie Aguilera Primary Care Provider: Martinez Cohen Consulting Providers: Nani Whitehead ; Kemar Chase ; Sherif Vuong ; Rajesh Cuellar ; Irving Enrique ; Elier Mar ; Izabel Feliciano ; Devin Jolly ; Alfred Johnson ; Braydon Hull SALES OPERATIONS SPECIALIST ; Lise Mills PA Discharge Orders/Prescriptions Prescriptions: New clopidogrel 75 mg Tablet 75 mg PO DAILY 30 Days Qty: 30 RF: 0 aspirin 81 mg Tablet,Delayed Release (Dr/Ec) 81 mg PO DAILY@0800 Qty: 30 RF: 0 Continued pantoprazole 40 MG tablet 40 mg PO BID RF: 0 atorvastatin 40 MG tablet 40 mg PO DAILY RF: 0 cetirizine 10 MG tablet 10 mg PO DAILY RF: 0 gabapentin 400 MG capsule 400 mg PO TID RF: 0 buspirone 15 MG tablet 15 mg PO TID RF: 0 venlafaxine 150 MG tablet extended release 24hr 150 mg PO DAILY RF: 0 Referrals / Follow Up: Kemar Chase MD [STAFF PHYSICIAN] - Within 2 Weeks (May see SALES OPERATIONS SPECIALIST/PA) Martinez Cohen MD [Primary Care Provider] - In 1 Week Disposition Disposition (needs filled in before D/C Order can be placed): Home, self care
[2021-03-16] MEDS: Acetaminophen 325 MG Tablet 650 MG PO (15:26)
--- NOTE | 2021-03-16 16:08 | PCM.DC.SUM ---
Documented by User: Lindsay Casey NP, DIRECTOR COMMUNICATIONS-C 03/16/21 16:19 Providers Date of Admission: 03/15/21 Primary Care Physician: Dr. Martinez Cohen MD Consultations 03/15/21 20:36 Consult: Cardiology Routine Consulting Provider: [facility] Reason for Consult: Chest pain, HEART 4/ROMERO 3 EMERGENT Consult: No MD Notified: Yes Date Notified:: 03/16/21 Time Notified: 07:47 Method of Notification: Text Method of Consult:: In-Person Reason For Visit: CHEST PAIN Diagnosis Discharge Diagnosis (1) Chest pain: Status: Acute Code(s): R07.9 - Chest pain, unspecified (2) HTN (hypertension): Status: Deleted Code(s): I10 - Essential (primary) hypertension Qualifiers: Hypertension type: essential hypertension Qualified Code(s): I10 - Essential (primary) hypertension Medications at Discharge Home Medications pantoprazole 40 mg PO BID 04/09/14 atorvastatin 40 mg PO DAILY 03/28/19 cetirizine 10 mg PO DAILY 04/14/20 buspirone 15 mg PO TID 06/17/20 gabapentin 400 mg PO TID 06/17/20 venlafaxine 150 mg PO DAILY 06/17/20 aspirin 81 mg PO DAILY@0800 #30 tab 03/16/21 clopidogrel 75 mg PO DAILY 30 Days #30 tab 03/16/21 lisinopril 10 mg PO DAILY #30 tab 03/16/21 Hospital Course Operations None Procedures Cardiac catheterization Summary of Care Provided Minutes Spent on Discharge: 35 Hospital Course: Patient is a 46-year-old female admitted 03/15/2021 due to chest pain. 1. Chest pain, CAD-ACS ruled out. Normal stress echo 11/26/2020. Cardiology consulted during admission. Underwent heart cath 03/16/2021 which demonstrated nonobstructive atherosclerosis of the distal RCA 60%, very large dominant vessel with measurement by IFR. Continue medical management. Continue aspirin, Plavix, statin. Follow-up with PCP in 1 week. Follow-up with cardiology in 2 weeks. 2. Hypertension-elevated during admission, will begin lisinopril 10 mg daily with further outpatient follow-up. 3. Hyperlipidemia-continue statin. 4. Anxiety/depression-on venlafaxine, buspirone. 5. Tobacco dependence-encouraged cessation. 6. Chronic COPD/asthma-no exacerbation. Physical Exam Const alert, oriented x3 and no apparent distress Orientation / Consciousness: awake, oriented to person, oriented to place and oriented to time HEENT normocephalic and moist oral mucous membranes Eyes PERRL, EOMs intact bilaterally and conjunctivae normal Neck no lymphadenopathy Resp normal respiratory effort and clear to auscultation bilaterally Cardio regular rate, regular rhythm and no murmurs Peripheral Pulses: pulses 2+ throughout GI normal to inspection, nondistended, normoactive bowel sounds, non-tender and non-distended Extremity normal to inspection Skin no rashes or lesions noted Lesions: no lesions Rashes: no rashes Trauma: no lacerations or abrasions Neuro oriented x3 Sensorium / Orientation: awake and alert Psych affect normal Patient seen and examined prior to discharge. Physical assessment as noted above. Patient is stable for discharge with follow up recommendations as noted above. This patient was seen by SNEHA West under the supervision of Dr. Aguilera. ABG / Lab / Microbiology Data Result Diagrams: 03/16/21 06:18 03/16/21 06:18 Laboratory: Laboratory Results - last 24 hr 03/15/21 03/15/21 03/15/21 18:40 18:40 18:40 WBC 11.2 H RBC 4.23 Hgb 12.0 Hct 38.0 MCV 89.8 MCH 28.4 MCHC 31.6 L RDW Std Deviation 48.2 H RDW Coeff of Clark 14.6 Plt Count 433 MPV 9.4 Immature Gran % (Auto) 0.300 Neut % (Auto) 55.0 Lymph % (Auto) 32.5 [place] % (Auto) 8.7 Eos % (Auto) 2.4 Baso % (Auto) 1.1 H Absolute Neuts (auto) 6.2 Absolute Lymphs (auto) 3.64 Nucleated RBC % 0 Sodium 141 Potassium 3.1 L Chloride 103 Carbon Dioxide 29.0 Anion Gap 9 BUN 9 Creatinine 0.86 Estim Creat Clear Calc 65.34 Est GFR (MDRD) Af Amer 92 Est GFR (MDRD) Non-Af 76 BUN/Creatinine Ratio 10.5 Glucose 84 Calcium 8.9 Phosphorus Magnesium 1.7 Total Bilirubin AST ALT Alkaline Phosphatase Troponin I < 0.015 Total Protein Albumin Globulin Albumin/Globulin Ratio Triglycerides Cholesterol LDL Cholesterol VLDL Cholesterol HDL Cholesterol Serum , Qual 05/09/21 05/09/21 05/10/21 18:40 21:17 00:38 WBC RBC Hgb Hct MCV MCH MCHC RDW Std Deviation RDW Coeff of Clark Plt Count MPV Immature Gran % (Auto) Neut % (Auto) Lymph % (Auto) [place] % (Auto) Eos % (Auto) Baso % (Auto) Absolute Neuts (auto) Absolute Lymphs (auto) Nucleated RBC % Sodium Potassium Chloride Carbon Dioxide Anion Gap BUN Creatinine Estim Creat Clear Calc Est GFR (MDRD) Af Amer Est GFR (MDRD) Non-Af BUN/Creatinine Ratio Glucose Calcium Phosphorus Magnesium Total Bilirubin AST ALT Alkaline Phosphatase Troponin I < 0.015 < 0.015 Total Protein Albumin Globulin Albumin/Globulin Ratio Triglycerides Cholesterol LDL Cholesterol VLDL Cholesterol HDL Cholesterol Serum , Qual NEGATIVE 03/16/21 03/16/21 06:18 06:18 WBC 9.9 RBC 4.43 Hgb 12.8 Hct 40.8 MCV 92.1 MCH 28.9 MCHC 31.4 L RDW Std Deviation 49.2 H RDW Coeff of Clark 14.5 Plt Count 442 MPV 9.5 Immature Gran % (Auto) 0.200 Neut % (Auto) 45.4 L Lymph % (Auto) 41.4 H [place] % (Auto) 7.6 Eos % (Auto) 4.2 Baso % (Auto) 1.2 H Absolute Neuts (auto) 4.5 Absolute Lymphs (auto) 4.08 Nucleated RBC % 0 Sodium 139 Potassium 3.4 L Chloride 106 Carbon Dioxide 29.0 Anion Gap 4 L BUN 9 Creatinine 0.81 Estim Creat Clear Calc 69.37 Est GFR (MDRD) Af Amer 99 Est GFR (MDRD) Non-Af 82 BUN/Creatinine Ratio 11.2 Glucose 91 Calcium 8.6 Phosphorus 3.0 Magnesium Total Bilirubin 0.40 AST 14 L ALT 20 Alkaline Phosphatase 97 Troponin I Total Protein 6.8 Albumin 3.2 Globulin 3.6 Albumin/Globulin Ratio 0.9 Triglycerides 145 Cholesterol 138 LDL Cholesterol 61 VLDL Cholesterol 29 HDL Cholesterol 48 Serum , Qual D/C Instructions Discharge Diet: Low fat / Low cholesterol Discharge Activity: Return to Normal Activity and - (Follow-up postop cath instructions.) Call your doctor if you observe: Shortness of breath, Dizziness and Chest pain Meaningful Use Info Meaningful Use Diagnoses (Choose all that apply): None applicable Discharge Plan Admission Admit Date/Time: 03/15/21 20:13 Attending Provider: Joanie Aguilera Primary Care Provider: Martinez Cohen Consulting Providers: Nani Whitehead ; Kemar Chase ; Sherif Vuong ; Rajesh Cuellar ; Irving Enrique ; Elier Mar ; Izabel Feliciano ; Devin Jolly ; Alfred Johnson ; Braydon Hull DIRECTOR COMMUNICATIONS ; Lise Mills PA Discharge Orders/Prescriptions Prescriptions: New clopidogrel 75 mg Tablet 75 mg PO DAILY 30 Days Qty: 30 RF: 0 aspirin 81 mg Tablet,Delayed Release (Dr/Ec) 81 mg PO DAILY@0800 Qty: 30 RF: 0 lisinopril 10 mg tablet 10 mg PO DAILY Qty: 30 RF: 0 Continued pantoprazole 40 MG tablet 40 mg PO BID RF: 0 atorvastatin 40 MG tablet 40 mg PO DAILY RF: 0 cetirizine 10 MG tablet 10 mg PO DAILY RF: 0 gabapentin 400 MG capsule 400 mg PO TID RF: 0 buspirone 15 MG tablet 15 mg PO TID RF: 0 venlafaxine 150 MG tablet extended release 24hr 150 mg PO DAILY RF: 0 Referrals / Follow Up: Kemar Chase MD [STAFF PHYSICIAN] - Within 2 Weeks (May see DIRECTOR COMMUNICATIONS/PA) Martinez Cohen MD [Primary Care Provider] - In 1 Week Disposition Disposition (needs filled in before D/C Order can be placed): Home, self care Documented by User: Dr. Joanie Aguilera MD 03/17/21 08:49 Providers Date of Admission: 03/15/21 Reason For Visit: CHEST PAIN Medications at Discharge Home Medications pantoprazole 40 mg PO BID 04/09/14 atorvastatin 40 mg PO DAILY 03/28/19 cetirizine 10 mg PO DAILY 04/14/20 buspirone 15 mg PO TID 06/17/20 gabapentin 400 mg PO TID 06/17/20 venlafaxine 150 mg PO DAILY 06/17/20 aspirin 81 mg PO DAILY@0800 #30 tab 03/16/21 clopidogrel 75 mg PO DAILY 30 Days #30 tab 03/16/21 lisinopril 10 mg PO DAILY #30 tab 03/16/21 ABG / Lab / Microbiology Data Result Diagrams: 03/16/21 06:18 03/16/21 06:18 Discharge Plan Admission Admit Date/Time: 03/15/21 20:13 Attending Provider: Joanie Aguilera Primary Care Provider: Martinez Cohen Consulting Providers: Nani Whitehead ; Kemar Chase ; Sherif Vuong ; Rajesh Cuellar ; Irving Enrique ; Elier Mar ; Izabel Feliciano ; Devin Jolly ; Alfred Johnson ; Braydon Hull DIRECTOR COMMUNICATIONS ; Lise Mills PA Discharge Orders/Prescriptions Prescriptions: New clopidogrel 75 mg Tablet 75 mg PO DAILY 30 Days Qty: 30 RF: 0 aspirin 81 mg Tablet,Delayed Release (Dr/Ec) 81 mg PO DAILY@0800 Qty: 30 RF: 0 lisinopril 10 mg tablet 10 mg PO DAILY Qty: 30 RF: 0 Continued pantoprazole 40 MG tablet 40 mg PO BID RF: 0 atorvastatin 40 MG tablet 40 mg PO DAILY RF: 0 cetirizine 10 MG tablet 10 mg PO DAILY RF: 0 gabapentin 400 MG capsule 400 mg PO TID RF: 0 buspirone 15 MG tablet 15 mg PO TID RF: 0 venlafaxine 150 MG tablet extended release 24hr 150 mg PO DAILY RF: 0 Referrals / Follow Up: Kemar Chase MD [STAFF PHYSICIAN] - Within 2 Weeks (May see DIRECTOR COMMUNICATIONS/PA) Martinez Cohen MD [Primary Care Provider] - In 1 Week Disposition Disposition (needs filled in before D/C Order can be placed): Home, self care Addendum Addendum: This patient was seen in conjunction with Lindsay Casey NP. I have independently interviewed and examined the patient and reviewed pertinent historical, laboratory, and other data. Please refer to her note for patient's presentation, findings, and recommendations. 46-year-old female with multiple comorbidities who presented With complaints of chest pain ongoing for 2 to 3 days that was relieved with nitro. Chest pain was described as midsternal to left sided, radiates to her neck and jaw. Initial troponin and EKG were unremarkable. Patient was admitted to telemetry floor, her troponins were negative. Cardiology was consulted. She underwent cardiac cath On that showed nonobstructive atherosclerosis of the distal RCA, 60%. Medical management was recommended. Patient was continued on aspirin, Plavix and statin. She will follow-up with her PCP in 1 week as well as with her certified medicine aide within 2 weeks. On the day of discharge, there were no new complaints. No acute events overnight. Vitals were reviewed -stable Physical Exam: Gen:Comfortable, not pale, not jaundiced, alert oriented x3 CVS:HS I +II, regular, no murmurs RESP: CTA GI: BS present and normal, nontender, no palpable organs EXT:No edema Visit Charges OBSV E&M: 97822 Observation care discharge
[2021-03-16] MEDS: Lisinopril 10 MG Tablet PO (16:56)
== END 2021-03-16 16:04 | disposition home or self-care (01) ==
LOC: ED 19:55 → PCU 21:04
PROVIDERS: Internal Medicine Cardiovascular Disease; Nurse Practitioner Family; Admitting Provider Hospitalist; Emergency Provider Emergency Medicine; PCP Family Medicine; Visit Provider Internal Medicine
DX: R07.89 Other chest pain (principal); I10 Essential (primary) hypertension; I25.118 Atherosclerotic heart disease of native coronary artery with other forms of angina pectoris; F17.200 Nicotine dependence, unspecified, uncomplicated; M19.90 Unspecified osteoarthritis, unspecified site; Z79.899 Other long term (current) drug therapy; E87.6 Hypokalemia; F32.9 Major depressive disorder, single episode, unspecified; F41.9 Anxiety disorder, unspecified; F12.90 Cannabis use, unspecified, uncomplicated; J44.9 Chronic obstructive pulmonary disease, unspecified; E78.5 Hyperlipidemia, unspecified
CPT/HCPCS: 36415; 71045; 80048; 80053; 80061; 83735; 84100; 84484; 84703; 85025; 93005; 93458; 93571; 96361; 96374; 96375; 96376; 99152; 99153; 99218; 99283; J7030; Q9967; A4216; C1769; C1887; C1894; G0378; J2405

== ENCOUNTER 2022-05-05 00:57 | Emergency (ER) | payer MEDICAID, SELFPAY ==
[2022-05-05 00:58] VITALS: BP 143/95; PULSE 83; RESP 15; TEMP 36.8; O2SAT 99; BMI 27.1
--- NOTE | 2022-05-05 01:22 | CT_ITS ---
STUDY: CT ABDOMEN AND PELVIS WITHOUT CONTRAST REASON FOR EXAM: Female, 47 years old. Right flank pain and hematuria RADIATION DOSAGE (If Supplied By Facility): CTDIvol = ( 6.83 ) mGy, DLP = ( 332.74 ) mGycm TECHNIQUE: Transaxial images were obtained from the dome of the diaphragm to the symphysis pubis without oral contrast, and without intravenous contrast. Sagittal and coronal images were reconstructed. Individualized dose optimization techniques were used for this CT. COMPARISON: 12/04/2019 FINDINGS: Minimal bibasilar dependent atelectasis versus scar formation. The visualized portions of the heart are within normal limits. Normal liver. Gallbladder is absent. Normal biliary ducts. Normal spleen. Normal pancreas. Normal bilateral adrenal glands. Normal right kidney. Normal left kidney. Normal visualized stomach. Normal small intestine. Normal colon. The appendix is visualized and appears normal. Normal abdominal aorta. Normal inferior vena cava. Normal retroperitoneum. No free intraperitoneal air or fluid. Normal reproductive structures. Normal urinary bladder. Normal abdominal wall. Normal osseous structures. CT/Abdomen/Pelvis without Cont IMPRESSION: No acute intra-abdominal abnormality. Electronically Signed: Sunny Pool MD at 3:50 EDT ,
[2022-05-05] MEDS: Ketorolac 15 MG/ML Vial IV (02:10)
[2022-05-05] MEDS: Ondansetron 4 MG/2 ML Vial IV (02:10)
[2022-05-05] MEDS: 0.9% Normal Saline 1,000 ML 250 ML IV (02:10)
[2022-05-05] MEDS: Morphine 4 MG/ML Syringe IV (02:10)
--- NOTE | 2022-05-05 02:16 | EDS_ITS ---
HPI History of Present Illness Chief Complaint: Flank Pain Informant: patient Narrative Narrative: Patient is a 47-year-old female with history of coronary artery disease, anxiety and COPD presenting with right-sided flank pain. Patient states her symptoms started about a week and a half ago. She went to urgent care earlier today where it was told that she had blood in her urine. She was told she might have a kidney stone. She came to the emergency room. She has been taking ibuprofen and Tylenol does not have any recently. States the pain is constant but fluctuates in intensity between sharp and dull. States her kidney area feels swollen. She has nausea but no vomiting. Has had normal bowel movements. Has noticed some blood with wiping after urination. Was given appointment to see urologist on May 11 from the urgent care but does not think she can last that long. Does not have a history of kidney stones. Notes that she does drink a large amount of Pepsi. [facility] Medical History Arthritis Atherosclerotic heart disease of [place] coronary artery without angina pectoris Essential (primary) hypertension Heart disease Hemorrhoids Lung disease Shoulder pain Stomach ulcer Home Medications pantoprazole 40 mg tablet,delayed release 40 mg PO BID gerd 04/09/14 [History Last Taken 06/17/20] atorvastatin 40 mg tablet 40 mg PO DAILY cholesterol 03/28/19 [History Last Taken 06/17/20] cetirizine 10 mg tablet 10 mg PO DAILY allergies 04/14/20 [History Last Taken 06/17/20] buspirone 15 mg tablet 15 mg PO TID anxiety 06/17/20 [History Last Taken 06/17/20] gabapentin 400 mg capsule 400 mg PO TID nerve pain 06/17/20 [History Last Taken 06/17/20] venlafaxine 150 mg tablet,extended release 24 hr 150 mg PO DAILY depression 06/17/20 [History Last Taken 06/17/20] aspirin 81 mg tablet,delayed release 81 mg PO DAILY@0800 #30 tabs 03/16/21 [Rx Last Taken Unknown] lisinopril 10 mg tablet 10 mg PO DAILY #30 tabs 03/16/21 [Rx Last Taken Unknown] ondansetron HCl 4 mg tablet 4 mg PO Q6H PRN nausea and vomiting #14 tabs 05/05/22 [Rx Last Taken Unknown] Allergy/AdvReac Type Severity Reaction Status Date / Time doxycycline Allergy Unknown Verified 05/05/22 01:01 erythromycin base Allergy Chest Verified 05/05/22 01:01 [Erythromycin Base] tightness Penicillins Allergy Unknown Verified 05/05/22 01:01 tramadol HCl [From Ultram] Allergy Swelling Verified 05/05/22 01:01 cefdinir [From Omnicef] AdvReac Other Verified 05/05/22 01:01 risperidone [From Risperdal] AdvReac Unknown Verified 05/05/22 01:01 valacyclovir HCl AdvReac Nausea Verified 05/05/22 01:01 [From Valtrex] Family History Other Arthritis Cancer Diabetes Heart disease Stomach ulcer Surgical History History of ankle surgery History of left heart catheterization (03/16/21) Social History Smoking Status: Current every day smoker tobacco type: cigarettes ROS ROS ED Constitutional Constitutional ED: Reports sweats; Denies chills or fever(s) Eyes Eyes: Denies blurry vision ENT ENT ED: Denies rhinorrhea or sore throat Cardiovascular Cardiovascular: Denies chest pain Respiratory/Chest Respiratory/Chest: Denies cough Gastrointestinal Gastrointestinal: Reports abdominal pain and nausea; Denies constipation, diarrhea or vomiting Genitourinary Genitourinary ED: Reports hematuria; Denies dysuria Musculoskeletal Musculoskeletal: Reports back pain; Denies arthralgias Integumentary Denies rash Neurologic Neurologic: Denies headache(s) Psychiatric Psychiatric: Denies anxiety EXAM Physical Exam Const Vital Signs: 05/05/22 00:58 Temperature 98.2 F Temperature Source Temporal Pulse Rate 83 Respiratory Rate 15 Blood Pressure 143/95 H Blood Pressure Mean 111 Pulse Ox 99 Oxygen Delivery Method Room Air Positive well nourished and well developed General Appearance ED: well developed HEENT Reports moist mucous membranes Neck supple Chest Wall inspection of chest normal Resp normal respiratory effort and clear to auscultation bilaterally Cardio regular rate, regular rhythm and no murmurs GI normal to inspection, nondistended, normoactive bowel sounds, non-tender and non-distended Back/Spine no CVA tenderness Extremity normal to inspection Neuro oriented x3 Motor Exam: Negative for general weakness Skin no rashes or lesions noted and no wounds MDM MDM MDM Narrative Medical decision making narrative: Patient evaluated for a week and a half of right flank pain. She was diagnosed with hematuria at urgent care earlier today. Denies any history of kidney stones but notes she drinks a lot of Pepsi and does not really drink much water. Has associated nausea. Renal colic is high on the differential. Patient has a leukocytosis of 14.6 however chart review shows that patient has had significant leukocytosis in the past and this is nonspecific. She has a mild anemia of 10.9 which is new. Her hemoglobin 1 year ago was 12.8. Kidney function is normal. Urinalysis shows blood but is not really consistent with infection.CT of the abdomen pelvis without contrast obtained is essentially negative. No acute kidney stone is noted. Serum hCG is negative. Patient's had a history of a tubal ligation I do not suspect ectopic as a cause of her symptoms. Patient is given a dose of Toradol, morphine and Zofran as well as IV fluids in the emergency room. On repeat evaluation she is now resting comfortably. Her kidney function is normal. Potassium is mildly low at 3.3. Patient is informed of her anemia as well as her mild hypokalemia. She is informed that CT does not show stone however it is possible that she recently passed 1. She is encouraged to follow-up with her primary care doctor. She will given a prescription for Zofran and instructed alternate ibuprofen and Tylenol as needed for further discomfort. Patient is given return precautions. She is discharged home in improved and stable condition. Lab Data Attestation: I reviewed the patient's lab results. Labs: Laboratory Results - last 24 hr 05/05/22 05/05/22 05/05/22 02:05 02:05 02:05 WBC 14.6 H RBC 3.92 L Hgb 10.9 L Hct 35.2 L MCV 89.8 MCH 27.8 MCHC 31.0 L RDW Std Deviation 51.5 H RDW Coeff of Clark 15.6 H Plt Count 343 MPV 10.2 Immature Gran % (Auto) 0.400 Neut % (Auto) 70.6 H Lymph % (Auto) 18.7 L [place] % (Auto) 8.2 Eos % (Auto) 1.6 Baso % (Auto) 0.5 Absolute Neuts (auto) 10.3 H Absolute Lymphs (auto) 2.73 Nucleated RBC % 0 Sodium 141 Potassium 3.3 L Chloride 109 H Carbon Dioxide 27.0 Anion Gap 5 BUN 6 L Creatinine 0.79 Estim Creat Clear Calc 70.38 Est GFR (MDRD) Af Amer 101 Est GFR (MDRD) Non-Af 84 BUN/Creatinine Ratio 7.6 L Glucose 101 Calcium 8.7 Serum , Qual NEGATIVE Urine Color Urine Clarity Urine pH Ur Specific [place] Urine Protein Urine Glucose (UA) Urine Ketones Urine Occult Blood Urine Nitrite Urine Bilirubin Urine Urobilinogen Ur Leukocyte Esterase Urine RBC Urine WBC Ur Squamous Epith Cells Urine Bacteria Urine Mucus 05/05/22 02:16 WBC RBC Hgb Hct MCV MCH MCHC RDW Std Deviation RDW Coeff of [place] Plt Count MPV Immature Gran % (Auto) Neut % (Auto) Lymph % (Auto) [place] % (Auto) Eos % (Auto) Baso % (Auto) Absolute Neuts (auto) Absolute Lymphs (auto) Nucleated RBC % Sodium Potassium Chloride Carbon Dioxide Anion Gap BUN Creatinine Estim Creat Clear Calc Est GFR (MDRD) Af Amer Est GFR (MDRD) Non-Af BUN/Creatinine Ratio Glucose Calcium Serum , Qual Urine Color Yellow Urine Clarity Clear Urine pH 6.5 Ur Specific [place] 1.005 Urine Protein Negative Urine Glucose (UA) Normal Urine Ketones Negative Urine Occult Blood 25 H Urine Nitrite Negative Urine Bilirubin Negative Urine Urobilinogen Normal Ur Leukocyte Esterase Negative Urine RBC 0-5 SEEN Urine WBC 0 SEEN Ur Squamous Epith Cells 0-5 SEEN Urine Bacteria 1+ Urine Mucus 0 SEEN Radiography Diagnostic Testing: Clinical Impression(s) from Imaging Studies Abdomen/Pelvis CT 05/05/22 01:22 IMPRESSION: No acute intra-abdominal abnormality. Electronically Signed: Sunny Pool MD at 3:50 EDT , Discharge Plan Triage Chief Complaint: Flank Pain ED Provider: Azra Flores Dx/Rx/DC Orders Clinical Impression: Anemia, Hematuria, Acute right flank pain, Acute hypokalemia Instructions: ED Anemia, Type Not Specified (Adult), ED Flank Pain, Uncertain Cause, ED Hematuria, ED Hypokalemia Prescriptions: New ondansetron HCl 4 mg tablet 4 mg PO Q6H PRN (Reason: nausea and vomiting) Qty: 14 0RF No Action pantoprazole 40 MG tablet 40 mg PO BID Label Comments: ACID REFLUX/GERD atorvastatin 40 MG tablet 40 mg PO DAILY cetirizine 10 MG tablet 10 mg PO DAILY gabapentin 400 MG capsule 400 mg PO TID buspirone 15 MG tablet 15 mg PO TID venlafaxine 150 MG tablet extended release 24hr 150 mg PO DAILY aspirin 81 mg Tablet,Delayed Release (Dr/Ec) 81 mg PO DAILY@0800 Qty: 30 0RF lisinopril 10 mg tablet 10 mg PO DAILY Qty: 30 0RF Primary Care Provider: Martinez Cohen Referrals: Martinez Cohen MD [Primary Care Provider] - Activity Restrictions/Additional Instructions: No signs of kidney stone on your CT today. Is possibly already passed 1. Your lab work does show a mild anemia as well as mildly low potassium. Please follow-up with your primary care doctor about your anemia. Eat potassium rich foods to help with your potassium levels. Continue to alternate Tylenol and ibuprofen as needed for your pain. Disposition Disposition: Home, Self Care
[2022-05-05 02:28] LABS: Absolute Lymphocyte Count 2.73 X10^3/uL (0.83-4.51); Absolute Neutrophil Count 10.3 X10^3/uL (2.0-7.7); Basophil# 0.07 X10^3/uL; Basophil% 0.5 % (0-1); Eosinophil# 0.24 X10^3/uL; Eosinophils% 1.6 % (0-5); Hematocrit 35.2 % (37-47); Hemoglobin 10.9 g/dL (12.0-15.0); Lymphocyte # 2.73 X10^3/ul (0.83-4.51); Lymphocyte % 18.7 % (19-41); Mean Corpuscular Hgb 27.8 pg (27.0-32.0); Mean Corpuscular Volume 89.8 fL (81-99); Mean Platelet Vol. 10.2 fl (6.2-12.0); Monocyte# 1.19 X10^3/uL; Monocyte% 8.2 % (0-10); NRBC Flagged by Analyzer 0 % (0-5); Neutrophil % 70.6 % (47-70); Platelet Count 343 K/mm3 (150-450); RBC Distribution Width CV 15.6 % (11.6-14.6); RBC Distribution Width SD 51.5 fl (35.1-43.9); Red Blood Count 3.92 M/mm3 (4.2-5.4); White Blood Count 14.6 K/mm3 (4.4-11.0)
[2022-05-05 02:31] LABS: Mucous, Urine 0 SEEN /hpf (<or=2+); White Blood Cells 0 SEEN /hpf (0-5)
[2022-05-05 02:32] LABS: Color, Urine Yellow (Yellow); Glucose, Dipstick Normal (Normal); Ketone-Dipstick Negative (Negative); Leukocyte Esterase-Dipstick Negative /ul (Negative); Nitrite-Dipstick Negative (Negative); Occult Blood-Urine 25 /ul (Negative); Protein-Dipstick Negative (Negative); Specific Gravity, Urine 1.005 (1.002-1.030); Urine Bilirubin Dipstick Negative (Negative); Urine Clarity Clear (Clear); Urine Urobilinogen Normal (Normal); Urine pH 6.5 (5.0 - 8.0)
[2022-05-05 02:41] LABS: Anion Gap 5 (5-15); BUN 6 mg/dL (7-18); BUN/Creat Ratio 7.6 RATIO (10-20); Calcium,Total 8.7 mg/dL (8.5-10.1); Chloride 109 mmol/L (98-107); Creatinine, Serum 0.79 mg/dL (0.55-1.02); EST Glomerular Filtration Rate 84 mL/min (>60); Est Glom Filt Rate - Afr Amer 101 mL/min (>60); Estimated Creatinine Clearance 70.38 ml/min; Glucose 101 mg/dL (74-106); Internal QC Validated? YES +Cl - CLEAR BKGD; Potassium 3.3 mmol/L (3.5-5.1); Pregnancy, Serum, hCG Quali. NEGATIVE Negative; Sodium Level 141 mmol/L (136-145)
[2022-05-05 02:53] LABS: Bacteria 1+ /hpf (None Seen); Red Blood Cells-Urine 0-5 SEEN /hpf (0-5); Squamous Epithelial Cells - UA 0-5 SEEN /hpf (5-10)
[2022-05-05 05:09] VITALS: BP 130/74; PULSE 72; O2SAT 98
== END 2022-05-05 05:33 | disposition home or self-care (01) ==
PROVIDERS: Emergency Provider Emergency Medicine; PCP Family Medicine; Visit Provider Emergency Medicine
DX: D64.9 Anemia, unspecified (principal); J44.9 Chronic obstructive pulmonary disease, unspecified; E87.6 Hypokalemia; R31.9 Hematuria, unspecified; F41.9 Anxiety disorder, unspecified; F17.210 Nicotine dependence, cigarettes, uncomplicated; I25.10 Atherosclerotic heart disease of native coronary artery without angina pectoris; R11.0 Nausea; I10 Essential (primary) hypertension
CPT/HCPCS: 74176; 80048; 81001; 84703; 85025; 96361; 96374; 96375; 99284; J7030; A4216; J2405

== ENCOUNTER 2022-06-25 08:28 | Emergency (ER) | payer MEDICAID, SELFPAY ==
[2022-06-25 08:29] VITALS: BP 166/111; PULSE 97; RESP 18; TEMP 36.8; O2SAT 96; BMI 27.5
--- NOTE | 2022-06-25 08:50 | ED.VIS.BACK ---
HPI History of Present Illness Chief Complaint: Back Narrative Narrative: Patient presents with her friend because of pain in her lumbar spine and right paraspinal musculature that she has had since 10 PM last evening. She states that after work, her pain began last evening. She had problems with DJD and arthritis in her back previously. Pain is worse with movement and when she bends and twists. She denies any fevers or chills. She is slightly nauseated from the pain but denies any vomiting. No saddle anesthesias, no loss of bowel or bladder. She states that the pain radiates to her right hip and sometimes down her right leg. She has been taking Tylenol and ibuprofen without relief. She denies any injury to the area. No other symptoms. [facility] Medical History Arthritis Atherosclerotic heart disease of [place] coronary artery without angina pectoris Essential (primary) hypertension Heart disease Hemorrhoids Lung disease Shoulder pain Stomach ulcer Home Medications pantoprazole 40 mg tablet,delayed release 40 mg PO BID gerd 04/09/14 [History Last Taken 06/17/20] atorvastatin 40 mg tablet 40 mg PO DAILY cholesterol 03/28/19 [History Last Taken 06/17/20] cetirizine 10 mg tablet 10 mg PO DAILY allergies 04/14/20 [History Last Taken 06/17/20] buspirone 15 mg tablet 15 mg PO TID anxiety 06/17/20 [History Last Taken 06/17/20] gabapentin 400 mg capsule 400 mg PO TID nerve pain 06/17/20 [History Last Taken 06/17/20] venlafaxine 150 mg tablet,extended release 24 hr 150 mg PO DAILY depression 06/17/20 [History Last Taken 06/17/20] aspirin 81 mg tablet,delayed release 81 mg PO DAILY@0800 #30 tabs 03/16/21 [Rx Last Taken Unknown] lisinopril 10 mg tablet 10 mg PO DAILY #30 tabs 03/16/21 [Rx Last Taken Unknown] ondansetron HCl 4 mg tablet 4 mg PO Q6H PRN nausea and vomiting #14 tabs 05/05/22 [Rx Last Taken Unknown] cyclobenzaprine 10 mg tablet 10 mg PO TID PRN muscle spasm #20 tabs 06/25/22 [Rx Last Taken Unknown] naproxen 500 mg tablet (Naprosyn) 500 mg PO BID PRN pain #20 tabs 06/25/22 [Rx Last Taken Unknown] Allergy/AdvReac Type Severity Reaction Status Date / Time doxycycline Allergy Unknown Verified 06/25/22 08:29 erythromycin base Allergy Chest Verified 06/25/22 08:29 [Erythromycin Base] tightness Penicillins Allergy Unknown Verified 06/25/22 08:29 tramadol HCl [From Ultram] Allergy Swelling Verified 06/25/22 08:29 cefdinir [From Omnicef] AdvReac Other Verified 06/25/22 08:29 risperidone [From Risperdal] AdvReac Unknown Verified 06/25/22 08:29 valacyclovir HCl AdvReac Nausea Verified 06/25/22 08:29 [From Valtrex] Family History Other Arthritis Cancer Diabetes Heart disease Stomach ulcer Surgical History History of ankle surgery History of left heart catheterization (03/16/21) Social History Smoking Status: Current every day smoker tobacco type: cigarettes ROS ROS ED ROS Narrative Constitutional: No fever, no chills. HEENT: No sore throat. No neck pain. No loss of vision. No rhinorrhea. Cardiovascular: No chest pain. No palpitations. No pedal edema. Respiratory: No cough, no shortness of breath. Abdominal: No abdominal pain. No nausea. No vomiting. Genitourinary: No dysuria. No hematuria. Musculoskeletal: No myalgias. No arthralgias. Lumbar back pain along with right paraspinal pain worse with movement and transfer. Neurologic: No headaches. No dizziness. No lightheadedness. Skin: No rash. No change in color. Psychiatric: No depression. No anxiety. EXAM Physical Exam Narrative Exam Narrative: Afebrile. Vital signs noted. HEENT: Normocephalic. Atraumatic. PERRL, EOMI. Neck soft and supple. No point tenderness or step off. Cardiovascular: Regular rate and rhythm. No murmurs, rubs, or gallops appreciated. Respiratory: No tachypnea. Lungs clear to auscultation bilaterally. Gastrointestinal: Abdomen soft, nontender, with normoactive bowel sounds. No rebound or guarding. Neurological: Awake. Alert. Nonfocal, nonlateralizing. Skin: No rash. Normal color. No pallor. Musculoskeletal: No pedal edema. Full range of motion extremities. Mild tenderness to palpation right paraspinal musculature. No step-off of lumbar spine. Ambulatory in ED. Const Vital Signs: 06/25/22 08:29 06/25/22 09:31 Temperature 98.2 F Temperature Source Temporal Pulse Rate 97 Respiratory Rate 18 16 Blood Pressure 166/111 H Blood Pressure Mean 129 Pulse Ox 96 Oxygen Delivery Method Room Air MDM MDM MDM Narrative Medical decision making narrative: Patient was administered intramuscular Norflex and Toradol. She has had bilateral tubal ligation. X-rays were obtained of the lumbar spine interpreted by myself. I do see degenerative changes at L1-L2 and L2-L3. No acute fracture. At this point in time she was given a note to be off work today and tomorrow. She was told to introduce back exercises and perform her activities of daily living. I feel she be discharged safely home with follow-up. She will be given prescriptions for Flexeril and naproxen. Disposition is discharged home in stable condition. Return instructions were reviewed. Radiography Diagnostic Testing: Clinical Impression(s) from Imaging Studies Lumbar Spine X-Ray 06/25/22 09:10 IMPRESSION: Degenerative changes of the spine, as detailed above. Electronically Signed: Tramaine Dukes MD at 9:25 EDT Reading Location ID and State: [facility] / [place] , Service support , Discharge Plan Triage Chief Complaint: Back ED Provider: Ej Luther Dx/Rx/DC Orders Clinical Impression: Back pain, Lumbar radiculopathy, right Instructions: ED Back Pain (Acute or Chronic), ED Back Spasm, No Trauma, ED Sciatica Prescriptions: New cyclobenzaprine 10 mg tablet 10 mg PO TID PRN (Reason: muscle spasm) Qty: 20 0RF naproxen [Naprosyn] 500 mg tablet 500 mg PO BID PRN (Reason: pain) Qty: 20 0RF No Action pantoprazole 40 MG tablet 40 mg PO BID Label Comments: ACID REFLUX/GERD atorvastatin 40 MG tablet 40 mg PO DAILY cetirizine 10 MG tablet 10 mg PO DAILY gabapentin 400 MG capsule 400 mg PO TID buspirone 15 MG tablet 15 mg PO TID venlafaxine 150 MG tablet extended release 24hr 150 mg PO DAILY aspirin 81 mg Tablet,Delayed Release (Dr/Ec) 81 mg PO DAILY@0800 Qty: 30 0RF lisinopril 10 mg tablet 10 mg PO DAILY Qty: 30 0RF ondansetron HCl 4 mg tablet 4 mg PO Q6H PRN (Reason: nausea and vomiting) Qty: 14 0RF Stand Alone Forms: ED Work / School Excuse Primary Care Provider: Martinez Cohen Referrals: Martinez Cohen MD [Primary Care Provider] - 3-5 Days if not improving Disposition Disposition: Home, Self Care Discharge Date/Time: 06/25/22 09:44
[2022-06-25] MEDS: Orphenadrine 60 MG/2 ML Ampul IM (08:58)
[2022-06-25] MEDS: Ketorolac 60 MG/2 ML Vial IM (08:58)
--- NOTE | 2022-06-25 09:10 | RAD_ITS ---
STUDY: X-RAY - LUMBAR SPINE REASON FOR EXAM: Female, 47 years old. Pain TECHNIQUE: 2 view(s) of the lumbar spine were obtained. COMPARISON: Lumbar spine x-ray dated November 20, 2018 FINDINGS: There is straightening of the normal lumbar lordosis. There is no substantial scoliosis. There is a normal alignment of the vertebrae. There is multilevel endplate spondylosis of the lumbar vertebrae. Mild disc space narrowing is present at L1-L2 and L2-L3. The remaining disc spaces are preserved. No fracture or compression deformity is present. The soft tissue structures are unremarkable. RAD/Lumbar Spine 2 or 3 Views IMPRESSION: Degenerative changes of the spine, as detailed above. Electronically Signed: Tramaine Dukes MD at 9:25 EDT ,
[2022-06-25 09:31] VITALS: RESP 16
== END 2022-06-25 09:44 | disposition home or self-care (01) ==
PROVIDERS: Emergency Provider Emergency Medicine; PCP Family Medicine; Visit Provider Emergency Medicine
DX: M47.26 Other spondylosis with radiculopathy, lumbar region (principal); I10 Essential (primary) hypertension; I25.10 Atherosclerotic heart disease of native coronary artery without angina pectoris; R11.0 Nausea; F17.210 Nicotine dependence, cigarettes, uncomplicated
CPT/HCPCS: 72100; 96372; 99282

== ENCOUNTER 2022-10-08 11:22 | Emergency (ER) | payer MEDICAID, SELFPAY ==
[2022-10-08 11:23] VITALS: BP 92/64; PULSE 58; RESP 16; TEMP 36.6; O2SAT 100; BMI 26.6
[2022-10-08 11:28] VITALS: BP 92/64; PULSE 58; RESP 16; TEMP 36.6; O2SAT 100
[2022-10-08 11:31] VITALS: BP 108/62
--- NOTE | 2022-10-08 11:50 | EKG12_ITS ---
Test Reason : SYNCOPE Blood Pressure : / mmHG Vent. Rate : 065 BPM Atrial Rate : 065 BPM P-R Int : 144 ms QRS Dur : 088 ms QT Int : 406 ms P-R-T Axes : 057 038 072 degrees QTc Int : 422 ms Normal sinus rhythm Normal ECG Confirmed by KASSIE MORENO, MIKE ([id number]), tape editor SAMANTHA STORY ([id number]) on 10/12/2022 12:11:46 PM Referred By: Confirmed By:MIKE FERNANDO MD
--- NOTE | 2022-10-08 11:50 | EX.ED.DYSGE1 ---
HPI History of Present Illness Chief Complaint: Syncope Narrative Narrative: 47-year-old female presenting with a near syncopal event. She states she has had a cold for the last 4 days and complains of nasal congestion and rhinorrhea as well as a mild cough. She states she thought she had sinusitis and went to the urgent care today and she states she almost fainted. She did not faint. She denies any chest pain or shortness of breath. She does admit to a cough. She states the only medication she takes is something for high cholesterol. She denies having a fever but has had body aches and chills. She states she has been laying in bed for the last couple of days not feeling well. She reports decreased p.o. intake but is not having nausea or vomiting. She does admit to some diarrhea. He does not have abdominal pain. [facility] Medical History Arthritis Atherosclerotic heart disease of [place] coronary artery without angina pectoris Essential (primary) hypertension Heart disease Hemorrhoids Lung disease Shoulder pain Stomach ulcer Home Medications pantoprazole 40 mg tablet,delayed release 40 mg PO BID gerd 04/09/14 [History Last Taken 06/17/20] atorvastatin 40 mg tablet 40 mg PO DAILY cholesterol 03/28/19 [History Last Taken 06/17/20] cetirizine 10 mg tablet 10 mg PO DAILY allergies 04/14/20 [History Last Taken 06/17/20] buspirone 15 mg tablet 15 mg PO TID anxiety 06/17/20 [History Last Taken 06/17/20] gabapentin 400 mg capsule 400 mg PO TID nerve pain 06/17/20 [History Last Taken 06/17/20] venlafaxine 150 mg tablet,extended release 24 hr 150 mg PO DAILY depression 06/17/20 [History Last Taken 06/17/20] aspirin 81 mg tablet,delayed release 81 mg PO DAILY@0800 #30 tabs 03/16/21 [Rx Last Taken Unknown] lisinopril 10 mg tablet 10 mg PO DAILY #30 tabs 03/16/21 [Rx Last Taken Unknown] ondansetron HCl 4 mg tablet 4 mg PO Q6H PRN nausea and vomiting #14 tabs 05/05/22 [Rx Last Taken Unknown] cyclobenzaprine 10 mg tablet 10 mg PO TID PRN muscle spasm #20 tabs 06/25/22 [Rx Last Taken Unknown] naproxen 500 mg tablet (Naprosyn) 500 mg PO BID PRN pain #20 tabs 06/25/22 [Rx Last Taken Unknown] potassium chloride 20 mEq tablet,extended release 40 meq PO DAILY #2 tabs 10/08/22 [Rx Last Taken Unknown] Allergy/AdvReac Type Severity Reaction Status Date / Time doxycycline Allergy Unknown Verified 10/08/22 11:29 erythromycin base Allergy Chest Verified 10/08/22 11:29 [Erythromycin Base] tightness Penicillins Allergy Unknown Verified 10/08/22 11:29 tramadol HCl [From Ultram] Allergy Swelling Verified 10/08/22 11:29 cefdinir [From Omnicef] AdvReac Other Verified 10/08/22 11:29 risperidone [From Risperdal] AdvReac Unknown Verified 10/08/22 11:29 valacyclovir HCl AdvReac Nausea Verified 10/08/22 11:29 [From Valtrex] Family History Other Arthritis Cancer Diabetes Heart disease Stomach ulcer Surgical History History of ankle surgery History of left heart catheterization (03/16/21) Social History Smoking Status: Current every day smoker tobacco type: cigarettes ROS ROS ED Constitutional Constitutional ED: Reports chills and subjective Eyes Eyes: Denies change in vision ENT ENT ED: Reports other Details: Rhinorrhea, nasal congestion ; Denies rhinorrhea or sore throat Cardiovascular Cardiovascular: Denies chest pain or palpitations Respiratory/Chest Respiratory/Chest: Reports cough; Denies dyspnea Gastrointestinal Gastrointestinal: Denies abdominal pain Genitourinary Genitourinary ED: Denies dysuria or hematuria Musculoskeletal Musculoskeletal: Denies arthralgias or back pain Integumentary Denies abscess Neurologic Neurologic: Reports headache(s); Denies paresthesias Psychiatric Psychiatric: Denies anxiety or depression EXAM Physical Exam Const Vital Signs: 10/08/22 11:23 10/08/22 11:28 10/08/22 11:29 Temperature 97.9 F 97.9 F Temperature Source Oral Oral Pulse Rate 58 L 58 L Pulse Rate [Lying] Pulse Rate [Sitting (for 1 minute prior to obtaining)] Pulse Rate [Standing (for 1 minute prior to obtaining)] Respiratory Rate 16 16 Respiratory Effort Normal Non-Labored Respiratory Pattern Normal Blood Pressure 92/64 92/64 Blood Pressure [Lying] Blood Pressure [Sitting (for 1 minute prior to obtaining)] Blood Pressure [Standing (for 1 minute prior to obtaining)] Blood Pressure Mean 73 73 Blood Pressure Mean [Lying] Blood Pressure Mean [Sitting (for 1 minute prior to obtaining)] Blood Pressure Mean [Standing (for 1 minute prior to obtaining)] Pulse Ox 100 100 Oxygen Delivery Method Room Air Room Air 10/08/22 11:31 10/08/22 11:55 10/08/22 11:56 Temperature Temperature Source Pulse Rate Pulse Rate [Lying] 63 Pulse Rate [Sitting (for 1 minute prior to obtaining)] 63 Pulse Rate [Standing (for 1 minute prior to obtaining)] 79 Respiratory Rate Respiratory Effort Respiratory Pattern Blood Pressure 108/62 Blood Pressure [Lying] 105/63 Blood Pressure [Sitting (for 1 minute prior to obtaining)] 116/65 Blood Pressure [Standing (for 1 minute prior to obtaining)] 107/77 Blood Pressure Mean 77 Blood Pressure Mean [Lying] 77 Blood Pressure Mean [Sitting (for 1 minute prior to obtaining)] 82 Blood Pressure Mean [Standing (for 1 minute prior to obtaining)] 87 Pulse Ox Oxygen Delivery Method Room Air Positive well nourished General Appearance ED: NAD; Negative for pallor HEENT Reports moist mucous membranes normocephalic and atraumatic Nose: nasal discharge clear Mouth ED: Yes oral and palatal mucosa normal, Yes lips normal, Yes tongue normal and Yes salivary gland normal Mouth: oral and palatal mucosa normal, lips normal, tongue normal and salivary gland normal Eyes PERRL and EOMs intact bilaterally Resp normal respiratory effort and clear to auscultation bilaterally Auscultation: Negative for rales, rhonchi or wheezes Cardio regular rhythm Rate: bradycardia GI normal to inspection, nondistended, normoactive bowel sounds Neuro oriented x3 and CN's II-XII intact bilaterally Sensorium / Orientation: alert Motor Exam: strength 5/5 throughout Psych mental status grossly normal Skin General Skin Exam: Negative for jaundice or pallor MDM MDM MDM Narrative Medical decision making narrative: Patient with viral symptoms for the last 4 days presenting after an episode of near syncope. She denies any chest pain or shortness of breath. She has a mild cough, rhinorrhea. She has body aches and chills. She does not wish to be tested for any viral sources. Orthostatic vital signs are normal. CBC shows slight leukocytosis at 13.5. Does appear that her white blood cell count has been elevated in the past. Her hemoglobin is near baseline at 10.8. Platelets are normal at 432 renal function is normal. Potassium noted to be 2.8. This will be repleted orally with 40 milliequivalents ts in the ER. She is given another dose of 40 mill equivalents for tomorrow. Chest x-ray on my interpretation shows no acute cardiopulmonary process and the radiologist interprets this and agrees. EKG is sinus rhythm with a ventricular to 65 bpm without sign of ischemic change or dysrhythmia. High sensitive troponin is 7 and again the patient has not had any chest pain. I did not identify a cardiac source for her near syncopal episode. It is likely this could be because her potassium is low. Patient encouraged to follow-up with her PCP for follow-up lab work. Impression: 1. Viral syndrome 2. Hypokalemia 3. Leukocytosis 4. Near syncope 5. Anemia Lab Data Attestation: I reviewed the patient's lab results. Labs: Laboratory Results - last 24 hr 10/08/22 10/08/22 11:55 11:55 WBC 13.5 H RBC 4.01 L Hgb 10.8 L Hct 35.3 L MCV 88.0 MCH 26.9 L MCHC 30.6 L RDW Std Deviation 55.8 H RDW Coeff of [place] 17.4 H Plt Count 432 MPV 9.3 Immature Gran % (Auto) 0.700 Neut % (Auto) 72.8 H Lymph % (Auto) 17.7 L [place] % (Auto) 6.3 Eos % (Auto) 2.0 Baso % (Auto) 0.5 Absolute Neuts (auto) 9.8 H Absolute Lymphs (auto) 2.39 Nucleated RBC % 0 Sodium 141 Potassium 2.8 L Chloride 111 H Carbon Dioxide 26.0 Anion Gap 4 L BUN 9 Creatinine 0.77 Estim Creat Clear Calc 72.20 Est GFR (MDRD) Af Amer 103 Est GFR (MDRD) Non-Af 85 BUN/Creatinine Ratio 11.6 Glucose 112 H Calcium 8.8 Troponin I High Sens 7 Radiography Diagnostic Testing: Clinical Impression(s) from Imaging Studies Chest X-Ray 10/08/22 12:10 IMPRESSION: Normal x-ray examination of the chest. Electronically Signed: Vijay Varma MD at 12:28 EST , Discharge Plan Triage Chief Complaint: Syncope ED Provider: Eduardo Lu Dx/Rx/DC Orders Instructions: ED Hypokalemia, ED Potassium-Rich Foods, ED Near-Fainting, Uncertain Cause, ED Viral Syndrome (Adult) Prescriptions: New potassium chloride 20 mEq tablet extended release 40 meq PO DAILY Qty: 2 0RF No Action pantoprazole 40 MG tablet 40 mg PO BID Label Comments: ACID REFLUX/GERD atorvastatin 40 MG tablet 40 mg PO DAILY cetirizine 10 MG tablet 10 mg PO DAILY gabapentin 400 MG capsule 400 mg PO TID buspirone 15 MG tablet 15 mg PO TID venlafaxine 150 MG tablet extended release 24hr 150 mg PO DAILY aspirin 81 mg Tablet,Delayed Release (Dr/Ec) 81 mg PO DAILY@0800 Qty: 30 0RF lisinopril 10 mg tablet 10 mg PO DAILY Qty: 30 0RF ondansetron HCl 4 mg tablet 4 mg PO Q6H PRN (Reason: nausea and vomiting) Qty: 14 0RF cyclobenzaprine 10 mg tablet 10 mg PO TID PRN (Reason: muscle spasm) Qty: 20 0RF naproxen [Naprosyn] 500 mg tablet 500 mg PO BID PRN (Reason: pain) Qty: 20 0RF Primary Care Provider: Martinez Cohen Referrals: Martinez Cohen MD [Primary Care Provider] - Disposition Disposition: Home, Self Care
[2022-10-08 11:56] VITALS: BP 105/63; BP 107/77; BP 116/65; PULSE 63; PULSE 79
[2022-10-08 12:08] LABS: Absolute Lymphocyte Count 2.39 X10^3/uL (0.83-4.51); Absolute Neutrophil Count 9.8 X10^3/uL (2.0-7.7); Basophil# 0.07 X10^3/uL; Basophil% 0.5 % (0-1); Eosinophil# 0.27 X10^3/uL; Hematocrit 35.3 % (37-47); Hemoglobin 10.8 g/dL (12.0-15.0); Lymphocyte # 2.39 X10^3/ul (0.83-4.51); Lymphocyte % 17.7 % (19-41); Mean Corp Hgb Conc 30.6 g/dL (32-36); Mean Corpuscular Hgb 26.9 pg (27.0-32.0); Mean Platelet Vol. 9.3 fl (6.2-12.0); Monocyte# 0.85 X10^3/uL; Monocyte% 6.3 % (0-10); NRBC Flagged by Analyzer 0 % (0-5); Neutrophil # 9.83 X10^3/uL (2.7-7.7); Neutrophil % 72.8 % (47-70); Platelet Count 432 K/mm3 (150-450); RBC Distribution Width CV 17.4 % (11.6-14.6); RBC Distribution Width SD 55.8 fl (35.1-43.9); Red Blood Count 4.01 M/mm3 (4.2-5.4); White Blood Count 13.5 K/mm3 (4.4-11.0)
--- NOTE | 2022-10-08 12:10 | RAD_ITS ---
STUDY: X-RAY CHEST REASON FOR EXAM: Female, 47 years old. Chest pain TECHNIQUE: Single AP portable view of the chest. COMPARISON: Comparison is made with prior study of 03/15/2021. FINDINGS: EKG electrodes are seen. The lungs are clear and expanded. There is no demonstrated pleural abnormality. Normal size heart. Normal mediastinum and filomena. Normal visualized pulmonary arteries. Normal visualized aortic arch and descending thoracic aorta. Normal visualized thoracic spine. Normal visualized ribs, clavicles, and shoulders. There is no demonstrated abnormality of the visualized soft tissue structures of the upper abdomen. RAD/Chest 1 View (Portable) IMPRESSION: Normal x-ray examination of the chest. Electronically Signed: Vijay Varma MD at 12:28 EST ,
[2022-10-08 12:24] LABS: Anion Gap 4 (5-15); BUN 9 mg/dL (7-18); BUN/Creat Ratio 11.6 RATIO (10-20); Calcium,Total 8.8 mg/dL (8.5-10.1); Chloride 111 mmol/L (98-107); Creatinine, Serum 0.77 mg/dL (0.55-1.02); EST Glomerular Filtration Rate 85 mL/min (>60); Est Glom Filt Rate - Afr Amer 103 mL/min (>60); Glucose 112 mg/dL (74-106); Potassium 2.8 mmol/L (3.5-5.1); Sodium Level 141 mmol/L (136-145); Troponin-I HS (w/2H Reflex) 7 pg/mL (3.0-54.0)
[2022-10-08 13:08] VITALS: BP 115/68; PULSE 85; RESP 19; O2SAT 99
[2022-10-08] MEDS: Potassium Chloride Oral Tablet 20 MEQ 40 MEQ PO (13:09)
[2022-10-08 14:03] LABS: Reflex Troponin-HS? (from REC) Y
== END 2022-10-08 13:14 | disposition home or self-care (01) ==
PROVIDERS: Emergency Provider Student in an Organized Health Care Education/Training Program; PCP Family Medicine; Visit Provider Student in an Organized Health Care Education/Training Program
DX: R55 Syncope and collapse (principal); R19.7 Diarrhea, unspecified; D64.9 Anemia, unspecified; B34.9 Viral infection, unspecified; F17.210 Nicotine dependence, cigarettes, uncomplicated; I25.10 Atherosclerotic heart disease of native coronary artery without angina pectoris; I10 Essential (primary) hypertension; D72.829 Elevated white blood cell count, unspecified; E87.6 Hypokalemia
CPT/HCPCS: 71045; 80048; 84484; 85025; 93005; 99285

== ENCOUNTER 2022-11-24 01:10 | Emergency (ER) | payer MEDICAID, SELFPAY ==
--- NOTE | 2022-11-24 01:10 | EDS_ITS ---
DATE OF SERVICE 11/24/22 CHIEF COMPLAINT [Left hand painful and swelling after recent carpal tunnel surgery.] HISTORY OF PRESENT ILLNESS [47-year-old female recent left carpal tunnel surgery done on 11/10/[address] Gerard Hull. Patient states surgery went well. She had her stitches taken out on Tuesday. And in the last 12 hours she has noticed redness, swelling and pus coming out of the surgical wound where the stitches were removed. Complaining of some discomfort. Denies any fever or chills. She is right-hand dominant.] Past Medical History [COPD history] Social History [Smokes. Does not drink alcohol.] Review of Systems [Denies recent illness. Left hand pain and swelling in the last 12 hours.] PHYSICAL EXAMINATION [Well-appearing middle-aged female. Vital signs are stable and afebrile. H EENT exam unremarkable. Moist mucous membranes. Lungs are clear. Heart regular rhythm no murmur. Abdomen soft nontender. Left palm and wrist are tender and swollen. Significantly compared to the right. Surgical wound over the carpal tunnel has susu pus flowing from the wound. There is no lymphangitic streaking. The proximal forearm and upper arm are nontender. There is no axillary lymphadenopathy. There is redness and tenderness at the site. Hand is neurovascularly intact. This is obviously an infected wound. Other extremities are unremarkable. Neurologically she is awake and alert. She has touch sensation in her fingers.] EMERGENCY DEPARTMENT COURSE AND TREATMENT [Middle-aged female, recent left carpal tunnel surgery. Now has a postop infection with susu pus. I have her orthopedic surgeon Dr. Gerard Hernández on page. Screening labs are being obtained including a CBC and chemistry. Wound cultures. She will be started on IV Unasyn 3 g. Also treated with morphine IV 6 mg for pain and Zofran IV. Patient had some relief with morphine but was still having pain was given a half a milligram IV Dilaudid.] Lab results: CBC shows elevated white count of 21,000. Hemoglobin was 11.9. Hematocrit 37. Platelets 624. Chemistries were unremarkable other than potassium of 3.0. Gap of 7. Glucose 98. Normal BUN and creatinine. Repeat exam at 2:31 AM patient is doing well. Left hand remains neurovascularly intact. Still is attempting to get a hold of her orthopedic surgeon Dr. Gerard Hernández. Dr. Hernández call me back at 5:59 AM. He and I discussed patient's case. He will accept her back to [facility] in the [facility] system. She will go ER to ER. Patient family would prefer to go by private vehicle. If possible we will leave the IV in place. She will remain n.p.o. And when Dr. Hernández becomes available today he will take her to the OR to open this up and washout the postop infection. She will be sent with copies of her lab. Transfer forms been filled out. But [facility] emergency department does not really have space at this time for the patient. Dr. Hernández called me back. I gave the patient the option to wait in the emergency department here or to go home. She preferred to go home wait there. His office will call her he expects to get her in the OR today around 1 or 130. Patient understands the plan and will remain n.p.o. and go up to [facility] around noon to 1230 to be prepped for the OR to have this wound opened up and washed out. Impressions: 1. Postop wound infection at the left wrist and hand 2. status post left carpal tunnel surgery
[2022-11-24 05:48] LABS: Absolute Lymphocyte Count 4.56 X10^3/uL (0.83-4.51); Absolute Neutrophil Count 14.2 X10^3/uL (2.0-7.7); Basophil# 0.13 X10^3/uL; Basophil% 0.6 % (0-1); Eosinophil# 0.46 X10^3/uL; Eosinophils% 2.1 % (0-5); Hematocrit 37.6 % (37-47); Hemoglobin 11.9 g/dL (12.0-15.0); Lymphocyte # 4.56 X10^3/ul (0.83-4.51); Mean Corp Hgb Conc 31.6 g/dL (32-36); Mean Corpuscular Hgb 27.6 pg (27.0-32.0); Mean Corpuscular Volume 87.2 fL (81-99); Mean Platelet Vol. 9.6 fl (6.2-12.0); Monocyte# 2.23 X10^3/uL; Monocyte% 10.3 % (0-10); NRBC Flagged by Analyzer 0 % (0-5); Neutrophil # 14.21 X10^3/uL (2.7-7.7); Neutrophil % 65.6 % (47-70); POSITIVE DIFFERENTIAL YES; Platelet Count 624 K/mm3 (150-450); RBC Distribution Width CV 17.2 % (11.6-14.6); RBC Distribution Width SD 55.2 fl (35.1-43.9); Red Blood Count 4.31 M/mm3 (4.2-5.4); White Blood Count 21.7 K/mm3 (4.4-11.0)
[2022-11-24 05:57] LABS: Differential Indicated SCAN CRITERIA MET
[2022-11-24 06:06] LABS: Differential Comment SCANNED
[2022-11-24 08:03] LABS: Anion Gap 7 (5-15); BUN 14 mg/dL (7-18); BUN/Creat Ratio 18.7 RATIO (10-20); Calcium,Total 9.6 mg/dL (8.5-10.1); Chloride 104 mmol/L (98-107); Creatinine, Serum 0.75 mg/dL (0.55-1.02); EST Glomerular Filtration Rate 88 mL/min (>60); Est Glom Filt Rate - Afr Amer 107 mL/min (>60); Glucose 98 mg/dL (74-106); Sodium Level 138 mmol/L (136-145)
[2022-11-24 10:08] LABS: Pathologist Review Reviewed
== END 2022-11-24 06:40 | disposition home or self-care (01) ==
LOC: ED 04:28
PROVIDERS: Emergency Provider Emergency Medicine; PCP Family Medicine; Visit Provider Emergency Medicine
DX: T81.43XA Infection following a procedure, organ and space surgical site, initial encounter (principal); Y83.8 Other surgical procedures as the cause of abnormal reaction of the patient, or of later complication, without mention of misadventure at the time of the procedure; M79.89 Other specified soft tissue disorders
CPT/HCPCS: 36415; 80048; 85025; 87070; 87077; 87186; 87205; 96365; 96366; 96375; 96376; 99285; J7030; A4216; J0295; J2405

== ENCOUNTER 2023-06-14 21:43 | Emergency (ER) | payer MEDICAID, SELFPAY ==
[2023-06-14 21:44] VITALS: BP 150/101; PULSE 85; RESP 15; TEMP 36.6; O2SAT 98; BMI 26.3
[2023-06-14] MEDS: 0.9% Normal Saline 1,000 ML 999 ML IV (22:29)
[2023-06-14 22:32] LABS: Absolute Lymphocyte Count 3.15 X10^3/uL (0.83-4.51); Absolute Neutrophil Count 5.8 X10^3/uL (2.0-7.7); Basophil# 0.08 X10^3/uL; Basophil% 0.8 % (0-1); Eosinophil# 0.34 X10^3/uL; Eosinophils% 3.3 % (0-5); Hematocrit 35.3 % (37-47); Hemoglobin 10.6 g/dL (12.0-15.0); Lymphocyte # 3.15 X10^3/ul (0.83-4.51); Mean Corpuscular Hgb 25.5 pg (27.0-32.0); Mean Corpuscular Volume 84.9 fL (81-99); Monocyte# 0.79 X10^3/uL; Monocyte% 7.8 % (0-10); NRBC Flagged by Analyzer 0 % (0-5); Neutrophil # 5.78 X10^3/uL (2.7-7.7); Neutrophil % 56.8 % (47-70); Platelet Count 438 K/mm3 (150-450); RBC Distribution Width CV 17.2 % (11.6-14.6); RBC Distribution Width SD 52.9 fl (35.1-43.9); Red Blood Count 4.16 M/mm3 (4.2-5.4); White Blood Count 10.2 K/mm3 (4.4-11.0)
[2023-06-14 22:43] LABS: Partial Thromboplast Time 30.3 Seconds (24.1-36.2)
[2023-06-14 22:44] LABS: Anion Gap 5 (5-15); BUN 5 mg/dL (7-18); BUN/Creat Ratio 6.1 RATIO (10-20); Calcium,Total 8.5 mg/dL (8.5-10.1); Chloride 105 mmol/L (98-107); Creatinine, Serum 0.82 mg/dL (0.55-1.02); EST Glomerular Filtration Rate 79 mL/min (>60); Est Glom Filt Rate - Afr Amer 95 mL/min (>60); Estimated Creatinine Clearance 67.08 ml/min; Glucose 109 mg/dL (74-106); Potassium 3.5 mmol/L (3.5-5.1); Sodium Level 137 mmol/L (136-145)
[2023-06-14 22:56] LABS: Lactic Acid 1.7 mmol/L (0.4-1.9)
--- NOTE | 2023-06-14 23:36 | EDS_ITS ---
HPI History of Present Illness Chief Complaint: GI Bleed Informant: patient Narrative Narrative: Patient is a 48-year-old female with past medical history of anxiety as well as COPD and hypertension. She states that over the last 2 to 3 days she has had bouts of bright red blood with bowel movements. She states she takes a baby aspirin daily but denies any history of bleeding disorder or blood thinner use. She denies any lightheadedness dizziness or syncope but with the recurrent bleeding abdominal she was concerned and therefore comes in for evaluation. [facility] Medical History (Updated 06/15/23 @ 01:[address] Willy Webb, ) Arthritis Atherosclerotic heart disease of [place] coronary artery without angina pectoris Essential (primary) hypertension Heart disease Hemorrhoids Lung disease Shoulder pain Stomach ulcer Home Medications pantoprazole 40 mg tablet,delayed release 40 mg PO BID gerd 04/09/14 [History Last Taken 06/14/23] atorvastatin 40 mg tablet 40 mg PO DAILY cholesterol 03/28/19 [History Last Taken 06/17/20] cetirizine 10 mg tablet 10 mg PO DAILY allergies 04/14/20 [History Last Taken 06/14/23] buspirone 15 mg tablet 15 mg PO TID anxiety 06/17/20 [History Last Taken 06/14/23] gabapentin 400 mg capsule 400 mg PO TID nerve pain 06/17/20 [History Last Taken 06/17/20] venlafaxine 150 mg tablet,extended release 24 hr 150 mg PO DAILY depression 06/17/20 [History Last Taken 06/14/23] aspirin 81 mg tablet,delayed release 81 mg PO DAILY@0800 #30 tabs 03/16/21 [Rx Last Taken 06/13/23 21:56] Allergy/AdvReac Type Severity Reaction Status Date / Time doxycycline Allergy Unknown Verified 06/14/23 21:47 erythromycin base Allergy Chest Verified 06/14/23 21:47 [Erythromycin Base] tightness Penicillins Allergy Unknown Verified 06/14/23 21:47 tramadol HCl [From Ultram] Allergy Swelling Verified 06/14/23 21:47 cefdinir [From Omnicef] AdvReac Other Verified 06/14/23 21:47 risperidone [From Risperdal] AdvReac Unknown Verified 06/14/23 21:47 valacyclovir HCl AdvReac Nausea Verified 06/14/23 21:47 [From Valtrex] Family History Other Arthritis Cancer Diabetes Heart disease Stomach ulcer Surgical History (Updated 06/14/23 @ 21:52 by Stephanie Rueda) History of ankle surgery History of left heart catheterization (03/16/21) Hx of appendectomy Social History Smoking Status: Current every day smoker tobacco type: cigarettes ROS ROS ED Constitutional Constitutional ED: Denies chills or fever(s) Eyes Eyes: Denies change in vision ENT ENT ED: Denies sore throat Cardiovascular Cardiovascular: Denies chest pain Respiratory/Chest Respiratory/Chest: Denies cough or dyspnea Gastrointestinal Gastrointestinal: Reports other Details: Positive bright red blood per rectum ; Denies abdominal pain, diarrhea, nausea or vomiting Genitourinary Genitourinary ED: Denies dysuria or hematuria Musculoskeletal Musculoskeletal: Denies myalgias Integumentary Denies rash Neurologic Neurologic: Denies headache(s) Hematologic/Lymphatic Hematologic/Lymphatic: Denies easy bleeding or easy bruising EXAM Physical Exam Const Vital Signs: 06/14/23 21:44 06/14/23 23:38 Temperature 97.9 F Temperature Source Temporal Pulse Rate 85 88 Respiratory Rate 15 16 Blood Pressure 150/101 H 120/65 Blood Pressure Mean 117 Pulse Ox 98 99 Oxygen Delivery Method Room Air Positive well nourished and well developed General Appearance ED: well developed; Negative for pallor HEENT Reports moist mucous membranes Eyes PERRL and EOMs intact bilaterally General Eye ED: Negative for pale conjunctiva or scleral icterus Neck supple Resp normal respiratory effort and clear to auscultation bilaterally Cardio regular rate and regular rhythm Rate: other Other Details: Radial and carotid pulses are equal and symmetric GI normal to inspection, nondistended, normoactive bowel sounds, non-tender, non- distended and no masses GI Narrative: No voluntary guarding or rigidity no pulsatile mass or fluid wave Auscultation: normoactive bowel sounds Palpation: soft Narrative: External rectal exam shows no bleeding hemorrhoids or anal fissure. Rectal tone is normal. No obvious masses palpated internally. Stool is mucousy brown in color. Extremity normal to inspection Neuro oriented x3 and CN's II-XII intact bilaterally Sensorium / Orientation: alert Psych mental status grossly normal Skin no rashes or lesions noted General Skin Exam: Negative for jaundice or pallor MDM MDM MDM Narrative Medical decision making narrative: Patient presented to the ER complaining of bright red blood with bowel movement. Differential diagnosis is for external hemorrhoid versus anal fissure versus internal hemorrhoid versus diverticulosis versus upper GI bleed. Basic blood work was obtained and shows that the patient's blood volume is at her baseline at 10.6 and there is no need for blood transfusion. Her BUN is normal going against an upper GI bleed. She has normal platelets and bleeding times as well. Rectal exam does not show any type of external hemorrhoid or anal fissure but as the stool present on exam is mucousy brown and not overt blood as patient reported she most likely had intermittent bleeding from a ruptured internal hemorrhoid. At this time his vitals are stable and she is not requiring a blood transfusion I do not feel need for an emergent colonoscopy and therefore patient can be discharged home and follow-up with GI on an outpatient basis. History & Record Review Discussion w/independent historian: Patient Lab Data Attestation: I reviewed the patient's lab results. Labs: Laboratory Results - last 24 hr 06/14/23 22:15 WBC 10.2 RBC 4.16 L Hgb 10.6 L Hct 35.3 L MCV 84.9 MCH 25.5 L MCHC 30.0 L RDW Std Deviation 52.9 H RDW Coeff of [place] 17.2 H Plt Count 438 MPV 10.0 Immature Gran % (Auto) 0.300 Neut % (Auto) 56.8 Lymph % (Auto) 31.0 [place] % (Auto) 7.8 Eos % (Auto) 3.3 Baso % (Auto) 0.8 Absolute Neuts (auto) 5.8 Absolute Lymphs (auto) 3.15 Nucleated RBC % 0 PT 13.0 INR 1.0 APTT 30.3 Sodium 137 Potassium 3.5 Chloride 105 Carbon Dioxide 27.0 Anion Gap 5 BUN 5 L Creatinine 0.82 Estim Creat Clear Calc 67.08 Est GFR (MDRD) Af Amer 95 Est GFR (MDRD) Non-Af 79 BUN/Creatinine Ratio 6.1 L Glucose 109 H Lactic Acid 1.7 Calcium 8.5 Discharge Plan Triage Chief Complaint: GI Bleed ED Provider: Willy Webb Dx/Rx/DC Orders Clinical Impression: Internal hemorrhoid, Lower GI bleed, Essential (primary) hypertension, Tobacco abuse Instructions: ED Hemorrhoids, ED Lower GI Bleeding (Stable) Prescriptions: No Action pantoprazole 40 MG tablet 40 mg PO BID Patient Comments: ACID REFLUX/GERD atorvastatin 40 MG tablet 40 mg PO DAILY cetirizine 10 MG tablet 10 mg PO DAILY gabapentin 400 MG capsule 400 mg PO TID buspirone 15 MG tablet 15 mg PO TID venlafaxine 150 MG tablet extended release 24hr 150 mg PO DAILY aspirin 81 mg Tablet,Delayed Release (Dr/Ec) 81 mg PO DAILY@0800 Qty: 30 0RF Stand Alone Forms: ED Work / School Excuse Primary Care Provider: Martinez Cohen Referrals: Berny Bland DO [Med Staff - Active Staff] - Martinez Cohen MD [Primary Care Provider] - Activity Restrictions/Additional Instructions: Your exam indicates you do not need blood transfusion and that your bleeding was most likely from a ruptured internal hemorrhoid. Follow-up with GI to discuss need for colonoscopy and if you develop bouts of passing out or bleeding is persistent and not only with bowel movements and please return for repeat evaluation Disposition Disposition: Home, Self Care Discharge Date/Time: 06/14/23 23:50
[2023-06-14 23:38] VITALS: BP 120/65; PULSE 88; RESP 16; O2SAT 99
== END 2023-06-14 23:50 | disposition home or self-care (01) ==
PROVIDERS: Emergency Provider Emergency Medicine; PCP Family Medicine; Visit Provider Emergency Medicine
DX: K64.8 Other hemorrhoids (principal); J44.9 Chronic obstructive pulmonary disease, unspecified; K92.2 Gastrointestinal hemorrhage, unspecified; F41.9 Anxiety disorder, unspecified; I25.10 Atherosclerotic heart disease of native coronary artery without angina pectoris; I10 Essential (primary) hypertension; F17.210 Nicotine dependence, cigarettes, uncomplicated; Z79.82 Long term (current) use of aspirin; Z79.899 Other long term (current) drug therapy
CPT/HCPCS: 80048; 82274; 83605; 85025; 85610; 85730; 96360; 99283; J7030; A4216

== ENCOUNTER 2023-08-01 10:05 | Emergency (ER) | payer MEDICAID, SELFPAY ==
[2023-08-01 10:07] VITALS: BP 146/104; PULSE 100; RESP 14; TEMP 36.6; O2SAT 100; BMI 25.2
--- NOTE | 2023-08-01 10:39 | EX.ED.DYSGE1 ---
HPI History of Present Illness Chief Complaint: Dizziness Narrative Narrative: 48-year-old female past medical history of coronary artery disease, hypertension, but not on medication currently presents with generalized weakness and lightheadedness that she has had for the last few days. She had a regular menses over the last few months to a year. She states she had vaginal bleeding starting on Tuesday. The following day she felt lightheaded and near syncopal. She denies vertiginous type symptoms. While her vaginal bleeding has improved, and almost ceased, she still feels lightheaded and weak. She was told by her TRAVEL FREIGHT AND PASSENGER AGENT to come to the emergency department to help rule out ectopic . She denies any pelvic pain however. Her main concern is that she is lightheaded and tired, and she has been passing a large amount of large clots over the last few days. Her lightheadedness is not necessarily worse with standing or walking. She denies any chest pain or shortness of breath. [facility] Medical History Arthritis Atherosclerotic heart disease of [place] coronary artery without angina pectoris Essential (primary) hypertension Heart disease Hemorrhoids Lung disease Shoulder pain Stomach ulcer Home Medications pantoprazole 40 mg tablet,delayed release 40 mg PO BID gerd 04/09/14 [History Last Taken 06/14/23] atorvastatin 40 mg tablet 40 mg PO DAILY cholesterol 03/28/19 [History Last Taken 06/17/20] cetirizine 10 mg tablet 10 mg PO DAILY allergies 04/14/20 [History Last Taken 06/14/23] buspirone 15 mg tablet 15 mg PO TID anxiety 06/17/20 [History Last Taken 06/14/23] gabapentin 400 mg capsule 400 mg PO TID nerve pain 06/17/20 [History Last Taken 06/17/20] venlafaxine 150 mg tablet,extended release 24 hr 150 mg PO DAILY depression 06/17/20 [History Last Taken 06/14/23] aspirin 81 mg tablet,delayed release 81 mg PO DAILY@0800 #30 tabs 03/16/21 [Rx Last Taken 06/13/23 21:56] Allergy/AdvReac Type Severity Reaction Status Date / Time doxycycline Allergy Unknown Verified 08/01/23 10:06 erythromycin base Allergy Chest Verified 08/01/23 10:06 [Erythromycin Base] tightness Penicillins Allergy Unknown Verified 08/01/23 10:06 tramadol HCl [From Ultram] Allergy Swelling Verified 08/01/23 10:06 cefdinir [From Omnicef] AdvReac Other Verified 08/01/23 10:06 risperidone [From Risperdal] AdvReac Unknown Verified 08/01/23 10:06 valacyclovir HCl AdvReac Nausea Verified 08/01/23 10:06 [From Valtrex] Family History Other Arthritis Cancer Diabetes Heart disease Stomach ulcer Surgical History History of ankle surgery History of left heart catheterization (03/16/21) Hx of appendectomy Social History Smoking Status: Current every day smoker tobacco type: cigarettes ROS ROS ED ROS Narrative Constitutional: No fever, no chills. Generalized weakness, fatigue. Feels tired. HEENT: No sore throat. No neck pain. No loss of vision. No rhinorrhea. Cardiovascular: No chest pain. No palpitations. No pedal edema. Respiratory: No cough, no shortness of breath. Abdominal: No abdominal pain. No nausea. No vomiting. Genitourinary: No dysuria. No hematuria. Vaginal bleeding, passing large clots, improved, and essentially finished. Musculoskeletal: No myalgias. No arthralgias. Neurologic: No headaches. No dizziness. Positive lightheadedness and near syncope. Skin: No rash. No change in color. Psychiatric: No depression. No anxiety. EXAM Physical Exam Narrative Exam Narrative: Afebrile. Vital signs noted. HEENT: Normocephalic. Atraumatic. PERRL, EOMI. Neck soft and supple. No point tenderness or step off. Cardiovascular: Regular rate and rhythm. No murmurs, rubs, or gallops appreciated. Respiratory: No tachypnea. Lungs clear to auscultation bilaterally. Gastrointestinal: Abdomen soft, nontender, with normoactive bowel sounds. No rebound or guarding. Neurological: Awake. Alert. Nonfocal, nonlateralizing. Skin: No rash. Normal color. No pallor. Musculoskeletal: No pedal edema. Full range of motion extremities. Const Vital Signs: 08/01/23 10:07 08/01/23 11:09 Temperature 97.9 F Temperature Source Oral Pulse Rate 100 Pulse Rate [Lying] 78 Pulse Rate [Sitting (for 1 minute prior to obtaining)] 78 Pulse Rate [Standing (for 1 minute prior to obtaining)] 83 Respiratory Rate 14 Blood Pressure 146/104 H Blood Pressure [Lying] 135/74 H Blood Pressure [Sitting (for 1 minute prior to obtaining)] 136/84 H Blood Pressure [Standing (for 1 minute prior to obtaining)] 149/80 H Blood Pressure Mean 118 Blood Pressure Mean [Lying] 94 Blood Pressure Mean [Sitting (for 1 minute prior to obtaining)] 101 Blood Pressure Mean [Standing (for 1 minute prior to obtaining)] 103 Pulse Ox 100 Oxygen Delivery Method Room Air MDM MDM MDM Narrative Medical decision making narrative: Patient has not pallor on exam or tachycardic. She is at that borderline. She may be anemic from vaginal bleeding. I will check a CBC to make sure that she does not require transfusion. Also in the differential given her irregular menses and heavy bleeding that was reported, serum will be obtained to rule out ectopic . I do not feel emergent ultrasound is indicated at this time. Does not sound as if she is orthostatic but she will be bolused normal saline 1 L intravenously. I will check a urinalysis and a BMP as well. I do not feel any imaging is indicated right now. Given her history of coronary artery disease, EKG and troponin will be obtained. I reviewed her laboratory work, she has slightly elevated white count 13.1 which I think is nonspecific, hemoglobin stable at 11.3 with hematocrit 36.3, no profound anemia requiring transfusion. Platelet count is normal at 436. Her electrolyte panel shows chloride slightly elevated at 108 but a normal sodium of 139 and potassium normal at 3.8. Glucose is appropriately elevated at 87 with a normal anion gap of 5. Single high-sensitivity troponin is normal at 7. This has been ongoing for days, and I do not feel that she requires a serial enzyme. EKG obtained and interpreted by myself independently as normal sinus rhythm at 80 bpm without ectopy or acute ST changes. No STEMI. Urinalysis is negative for infection, while there is occult blood, I do feel this may be more of a contaminant as she states she is having menstrual cramping and vaginal bleeding. However, there are no WBCs or RBCs/within normal limits on her microscopic analysis. I do not feel antibiotics are indicated. Serum is negative, hence ruling out ectopic . At this point in time, I do feel she can be discharged safely home with follow-up to her TRAVEL [employer] AND PASSENGER AGENT as scheduled. She was given Toradol 15 mg intravenously prior to discharge for her menstrual cramping. I do not feel she requires admission at this time. Return instructions to the emergency department were reviewed. Disposition is discharged home in stable condition. History & Record Review Discussion w/independent historian: Patient Additional record(s) reviewed:: Prior ED visit and Prior labs Lab Data Attestation: I reviewed the patient's lab results. Labs: Laboratory Results - last 24 hr 08/01/23 10:45 WBC 13.1 H RBC 4.33 Hgb 11.3 L Hct 36.3 L MCV 83.8 MCH 26.1 L MCHC 31.1 L RDW Std Deviation 52.3 H RDW Coeff of [place] 17.1 H Plt Count 436 MPV 9.1 Immature Gran % (Auto) 0.200 Neut % (Auto) 65.1 Lymph % (Auto) 21.4 Republic % (Auto) 7.7 Eos % (Auto) 4.5 Baso % (Auto) 1.1 H Absolute Neuts (auto) 8.5 H Absolute Lymphs (auto) 2.80 Nucleated RBC % 0 Sodium 139 Potassium 3.8 Chloride 108 H Carbon Dioxide 26.0 Anion Gap 5 BUN 12 Creatinine 0.78 Estim Creat Clear Calc 73.76 Est GFR (MDRD) Af Amer 102 Est GFR (MDRD) Non-Af 84 BUN/Creatinine Ratio 15.4 Glucose 87 Calcium 8.9 Troponin I High Sens 7 Serum , Qual NEGATIVE Urine Color Yellow Urine Clarity Clear Urine pH 6.5 Ur Specific [place] 1.010 Urine Protein Negative Urine Glucose (UA) Normal Urine Ketones Negative Urine Occult Blood 150 H Urine Nitrite Negative Urine Bilirubin Negative Urine Urobilinogen Normal Ur Leukocyte Esterase Negative Urine RBC 0 SEEN Urine WBC 0 SEEN Ur Squamous Epith Cells 0-5 SEEN Urine Bacteria 0 SEEN Urine Mucus 0 SEEN Discharge Plan Triage Chief Complaint: Dizziness ED Provider: Ej Luther Dx/Rx/DC Orders Clinical Impression: Generalized weakness, Menstrual cramps, Near syncope Instructions: ED MENSTRUAL CRAMPING, ED Near-Fainting, Uncertain Cause, ED Weakness (Uncertain Cause) Prescriptions: No Action pantoprazole 40 MG tablet 40 mg PO BID Patient Comments: ACID REFLUX/GERD atorvastatin 40 MG tablet 40 mg PO DAILY cetirizine 10 MG tablet 10 mg PO DAILY gabapentin 400 MG capsule 400 mg PO TID buspirone 15 MG tablet 15 mg PO TID venlafaxine 150 MG tablet extended release 24hr 150 mg PO DAILY aspirin 81 mg Tablet,Delayed Release (Dr/Ec) 81 mg PO DAILY@0800 Qty: 30 0RF Primary Care Provider: Martinez Cohen Referrals: Martinez Cohen MD [Primary Care Provider] - As soon as possible Activity Restrictions/Additional Instructions: Follow-up with your TRAVEL FREIGHT AND PASSENGER AGENT as scheduled. Disposition Disposition: Home, Self Care
[2023-08-01] MEDS: 0.9% Normal Saline (1000mL) 1,000 ML 999 ML IV (10:52)
[2023-08-01 10:54] LABS: Bacteria 0 SEEN /hpf (None Seen); Mucous, Urine 0 SEEN /hpf (<or=2+); Red Blood Cells-Urine 0 SEEN /hpf (0-5); White Blood Cells 0 SEEN /hpf (0-5)
[2023-08-01 10:57] LABS: Color, Urine Yellow (Yellow); Glucose, Dipstick Normal (Normal); Ketone-Dipstick Negative (Negative); Leukocyte Esterase-Dipstick Negative /ul (Negative); Nitrite-Dipstick Negative (Negative); Occult Blood-Urine 150 /ul (Negative); Protein-Dipstick Negative (Negative); Urine Bilirubin Dipstick Negative (Negative); Urine Clarity Clear (Clear); Urine Urobilinogen Normal (Normal); Urine pH 6.5 (5.0 - 8.0)
[2023-08-01 10:58] LABS: Absolute Neutrophil Count 8.5 X10^3/uL (2.0-7.7); Basophil# 0.15 X10^3/uL; Basophil% 1.1 % (0-1); Eosinophil# 0.59 X10^3/uL; Eosinophils% 4.5 % (0-5); Hematocrit 36.3 % (37-47); Hemoglobin 11.3 g/dL (12.0-15.0); Lymphocyte % 21.4 % (19-41); Mean Corp Hgb Conc 31.1 g/dL (32-36); Mean Corpuscular Hgb 26.1 pg (27.0-32.0); Mean Corpuscular Volume 83.8 fL (81-99); Mean Platelet Vol. 9.1 fl (6.2-12.0); Monocyte# 1.01 X10^3/uL; Monocyte% 7.7 % (0-10); NRBC Flagged by Analyzer 0 % (0-5); Neutrophil # 8.48 X10^3/uL (2.7-7.7); Neutrophil % 65.1 % (47-70); Platelet Count 436 K/mm3 (150-450); RBC Distribution Width CV 17.1 % (11.6-14.6); RBC Distribution Width SD 52.3 fl (35.1-43.9); Red Blood Count 4.33 M/mm3 (4.2-5.4); White Blood Count 13.1 K/mm3 (4.4-11.0)
[2023-08-01 11:02] LABS: Squamous Epithelial Cells - UA 0-5 SEEN /hpf (5-10)
[2023-08-01 11:09] VITALS: BP 135/74; BP 136/84; BP 149/80; PULSE 78; PULSE 83
[2023-08-01 11:09] LABS: Internal QC Validated? YES +Cl - CLEAR BKGD; Pregnancy, Serum, hCG Quali. NEGATIVE Negative
[2023-08-01 11:12] LABS: Anion Gap 5 (5-15); BUN 12 mg/dL (7-18); BUN/Creat Ratio 15.4 RATIO (10-20); Calcium,Total 8.9 mg/dL (8.5-10.1); Chloride 108 mmol/L (98-107); Creatinine, Serum 0.78 mg/dL (0.55-1.02); EST Glomerular Filtration Rate 84 mL/min (>60); Est Glom Filt Rate - Afr Amer 102 mL/min (>60); Estimated Creatinine Clearance 73.76 ml/min; Glucose 87 mg/dL (74-106); Potassium 3.8 mmol/L (3.5-5.1); Sodium Level 139 mmol/L (136-145)
[2023-08-01 11:49] LABS: Troponin-I HS 7 pg/mL (3.0-54.0)
[2023-08-01] MEDS: Ketorolac 15 MG/ML Vial IV (12:17)
[2023-08-01 12:22] VITALS: BP 124/76; PULSE 68; RESP 16; O2SAT 99
[2023-08-01 12:23] VITALS: BP 124/78; PULSE 68; RESP 16; O2SAT 98
== END 2023-08-01 12:23 | disposition home or self-care (01) ==
PROVIDERS: Emergency Provider Emergency Medicine; PCP Family Medicine; Visit Provider Emergency Medicine
DX: R42 Dizziness and giddiness (principal); R53.1 Weakness; R55 Syncope and collapse; I25.10 Atherosclerotic heart disease of native coronary artery without angina pectoris; F17.210 Nicotine dependence, cigarettes, uncomplicated; I10 Essential (primary) hypertension; N94.6 Dysmenorrhea, unspecified; Z90.49 Acquired absence of other specified parts of digestive tract
CPT/HCPCS: 80048; 81001; 84484; 84703; 85025; 93005; 96361; 96374; 99283; J7030; A4216

== ENCOUNTER 2023-11-14 14:20 | Emergency (ER) | payer SELFPAY ==
[2023-11-14 14:21] VITALS: BP 180/116; PULSE 109; RESP 18; TEMP 36.1; O2SAT 98; BMI 24.7
[2023-11-14 15:04] LABS: Color, Urine Yellow (Yellow); Glucose, Dipstick Normal (Normal); Ketone-Dipstick 5 mg/dl (Negative); Leukocyte Esterase-Dipstick 500 /ul (Negative); Nitrite-Dipstick Negative (Negative); Occult Blood-Urine 50 /ul (Negative); Protein-Dipstick 30 mg/dl (Negative); Specific Gravity, Urine 1.025 (1.002-1.030); Urine Bilirubin Dipstick Negative (Negative); Urine Clarity Sl. Cloudy (Clear); Urine Urobilinogen Normal (Normal)
[2023-11-14 15:10] LABS: Bacteria 1+ /hpf (None Seen); Mucous, Urine 2+ /hpf (<or=2+); Red Blood Cells-Urine 0-5 SEEN /hpf (0-5); Squamous Epithelial Cells - UA 0-5 SEEN /hpf (5-10); White Blood Cells 25-50 SEEN /hpf (0-5)
[2023-11-14 15:11] LABS: Internal QC Validated? YES +Cl - CLEAR BKGD; Pregnancy, Urine Negative Negative; Record Kit Lot#,Urine Preg HCG0000667200
[2023-11-14] MEDS: Fluconazole 100 MG Tablet PO (16:00)
--- NOTE | 2023-11-14 16:18 | EDS_ITS ---
HPI HPI - Female History of Present Illness Chief Complaint: Female C/O Narrative Narrative: 48-year-old female presenting with vaginal burning. She states that it started a couple days after [place] when she had sex with her actions. This was the day after she had sex with her ex. She denies any discharge. She tried an [id number] yeast infection treatment without relief. She states she has not seen her PCP or drinking water technician. She denies dysuria or hematuria. She has significant pain she still not have any discharge. She states she is also had sex with somebody else earlier in the month a couple weeks ago and she states that she noticed he had a spot on his penis before they had sex. Patient is still states he did not use protection. She still did not have any symptoms until 2 weeks later. She still has not developed any discharge or pelvic pain. She still has a lot of burning in her vagina. [facility] Medical History Arthritis Atherosclerotic heart disease of [place] coronary artery without angina pectoris Essential (primary) hypertension Heart disease Hemorrhoids Lung disease Shoulder pain Stomach ulcer Home Medications pantoprazole 40 mg tablet,delayed release 40 mg PO BID gerd 04/09/14 [History Last Taken 06/14/23] atorvastatin 40 mg tablet 40 mg PO DAILY cholesterol 03/28/19 [History Last Taken 06/17/20] cetirizine 10 mg tablet 10 mg PO DAILY allergies 04/14/20 [History Last Taken 06/14/23] buspirone 15 mg tablet 15 mg PO TID anxiety 06/17/20 [History Last Taken 06/14/23] gabapentin 400 mg capsule 400 mg PO TID nerve pain 06/17/20 [History Last Taken 06/17/20] venlafaxine 150 mg tablet,extended release 24 hr 150 mg PO DAILY depression 06/17/20 [History Last Taken 06/14/23] aspirin 81 mg tablet,delayed release 81 mg PO DAILY@0800 #30 tabs 03/16/21 [Rx Last Taken 06/13/23 21:56] fluconazole 150 mg tablet 150 mg PO Q3D 1 dose #1 TAB 11/14/23 [Rx Last Taken Unknown] Allergy/AdvReac Type Severity Reaction Status Date / Time doxycycline Allergy Unknown Verified 08/01/23 10:06 erythromycin base Allergy Chest Verified 08/01/23 10:06 [Erythromycin Base] tightness Penicillins Allergy Unknown Verified 08/01/23 10:06 tramadol HCl [From Ultram] Allergy Swelling Verified 08/01/23 10:06 cefdinir [From Omnicef] AdvReac Other Verified 08/01/23 10:06 risperidone [From Risperdal] AdvReac Unknown Verified 08/01/23 10:06 valacyclovir HCl AdvReac Nausea Verified 08/01/23 10:06 [From Valtrex] Family History Other Arthritis Cancer Diabetes Heart disease Stomach ulcer Surgical History History of ankle surgery History of left heart catheterization (03/16/21) Hx of appendectomy Social History Smoking Status: Current every day smoker tobacco type: cigarettes ROS ROS ED Constitutional Constitutional ED: Denies chills, fever(s) or sweats Eyes Eyes: Denies blurry vision or change in vision ENT ENT ED: Denies ear pain or sore throat Cardiovascular Cardiovascular: Denies chest pain, palpitations or racing heartbeat Respiratory/Chest Respiratory/Chest: Denies cough, dyspnea or sputum Gastrointestinal Gastrointestinal: Denies abdominal pain, constipation, diarrhea, nausea or vo miting Genitourinary Genitourinary ED: Reports other Details: Vaginal burning ; Denies dysuria, hematuria or urinary frequency Musculoskeletal Musculoskeletal: Denies arthralgias, myalgias or neck pain Integumentary Denies abscess, Abrasions or rash Neurologic Neurologic: Denies headache(s), paresthesias or weakness Psychiatric Psychiatric: Denies anxiety, depression, suicidal ideation or suicidal thoughts Endocrine Endocrinology: Denies polydipsia or polyuria EXAM Physical Exam Const Vital Signs: 11/14/23 14:21 Temperature 97 F L Temperature Source Temporal Pulse Rate 109 H Respiratory Rate 18 Blood Pressure 180/116 H Blood Pressure Mean 137 Pulse Ox 98 Positive well nourished General Appearance ED: NAD HEENT Reports TM's clear and moist mucous membranes Tympanic Membrane ED: Yes TM's clear Eyes PERRL and EOMs intact bilaterally Cardio regular rate and regular rhythm GI normal to inspection, nondistended, normoactive bowel sounds GI Narrative: Deferred Back/Spine no CVA tenderness Neuro oriented x3 and CN's II-XII intact bilaterally Sensorium / Orientation: alert MDM MDM MDM Narrative Medical decision making narrative: Patient presenting with burning and her vaginal region. Denies dysuria or urinary symptoms. It does sound as if she has a yeast infection but she does have risk factors for STDs. She has not had any vaginal discharge and does not have any pain on examination of her abdomen pelvis. I did offer a pelvic exam and patient declines and states she is okay with being treated for yeast infection. She is given a dose of Diflucan here and a separate dose for 3 days from now. I did have her urine tested for GC and chlamydia which will come back at some point tonight. She was given paperwork on how to sign up for review of her lab work at hospital. Return precautions discussed. Lab work is followed up at 10:27 PM. GC chlamydia were negative. Impression: 1. Candidal vaginitis Lab Data Attestation: I reviewed the patient's lab results. Labs: Laboratory Results - last 24 hr 11/14/23 14:45 Urine Color Yellow Urine Clarity Sl. Cloudy Urine pH 6.0 Ur Specific [place] 1.025 Urine Protein 30 H Urine Glucose (UA) Normal Urine Ketones 5 H Urine Occult Blood 50 H Urine Nitrite Negative Urine Bilirubin Negative Urine Urobilinogen Normal Ur Leukocyte Esterase 500 H Urine RBC 0-5 SEEN Urine WBC 25-50 SEEN Ur Squamous Epith Cells 0-5 SEEN Urine Bacteria 1+ Urine Mucus 2+ Urine Test Negative Discharge Plan Triage Chief Complaint: Female C/O ED Provider: Eduardo Lu Dx/Rx/DC Orders Instructions: Candidiasis Vaginal Prescriptions: New fluconazole 150 mg tablet 150 mg PO Q3D Qty: 1 0RF No Action pantoprazole 40 MG tablet 40 mg PO BID Patient Comments: ACID REFLUX/GERD atorvastatin 40 MG tablet 40 mg PO DAILY cetirizine 10 MG tablet 10 mg PO DAILY gabapentin 400 MG capsule 400 mg PO TID buspirone 15 MG tablet 15 mg PO TID venlafaxine 150 MG tablet extended release 24hr 150 mg PO DAILY aspirin 81 mg Tablet,Delayed Release (Dr/Ec) 81 mg PO DAILY@0800 Qty: 30 0RF Primary Care Provider: Martinez Cohen Referrals: Martinez Cohen MD [Primary Care Provider] - Disposition Disposition: Home, Self Care Discharge Date/Time: 11/14/23 16:19
== END 2023-11-14 16:19 | disposition home or self-care (01) ==
PROVIDERS: Emergency Provider Student in an Organized Health Care Education/Training Program; PCP Family Medicine; Visit Provider Student in an Organized Health Care Education/Training Program
DX: B37.31 Acute candidiasis of vulva and vagina (principal); F17.210 Nicotine dependence, cigarettes, uncomplicated; I25.10 Atherosclerotic heart disease of native coronary artery without angina pectoris; I10 Essential (primary) hypertension; Z90.49 Acquired absence of other specified parts of digestive tract
CPT/HCPCS: 81001; 81025; 87491; 87591; 99283

== ENCOUNTER 2023-12-08 18:30 | Emergency (ER) | payer SELFPAY ==
[2023-12-08 18:31] VITALS: BP 141/96; PULSE 101; RESP 18; TEMP 36.6; O2SAT 100
--- NOTE | 2023-12-08 19:00 | ED.VIS.LOWEX ---
HPI History of Present Illness Chief Complaint: Lower Extremity Injury Informant: patient Narrative Narrative: Patient complains of bilateral knee pain. She went to urgent care who referred her here. Patient states she walked up the hill and then down a hill. It took about [address] Her knees were sore afterwards. Sometimes her knees get sore but no usually this much. She did not fall. She has no fevers or chills. No recent trauma. Patient does have some slight mottling of the skin and purplish discoloration and areas in the front of both knees. She states that is been there for a long time. He gets better and worse. But is not different today. She has no calf pain or thigh pain. No chest pain. No trouble breathing. [facility] Medical History Arthritis Atherosclerotic heart disease of [place] coronary artery without angina pectoris Essential (primary) hypertension Heart disease Hemorrhoids Lung disease Shoulder pain Stomach ulcer Home Medications pantoprazole 40 mg tablet,delayed release 40 mg PO BID gerd 04/09/14 [History Last Taken 06/14/23] atorvastatin 40 mg tablet 40 mg PO DAILY cholesterol 03/28/19 [History Last Taken 06/17/20] cetirizine 10 mg tablet 10 mg PO DAILY allergies 04/14/20 [History Last Taken 06/14/23] buspirone 15 mg tablet 15 mg PO TID anxiety 06/17/20 [History Last Taken 06/14/23] gabapentin 400 mg capsule 400 mg PO TID nerve pain 06/17/20 [History Last Taken 06/17/20] venlafaxine 150 mg tablet,extended release 24 hr 150 mg PO DAILY depression 06/17/20 [History Last Taken 06/14/23] aspirin 81 mg tablet,delayed release 81 mg PO DAILY@0800 #30 tabs 03/16/21 [Rx Last Taken 06/13/23 21:56] fluconazole 150 mg tablet 150 mg PO Q3D 1 dose #1 TAB 11/14/23 [Rx Last Taken Unknown] naproxen 500 mg tablet (Naprosyn) 500 mg PO BID PRN pain #20 tabs 12/08/23 [Rx Last Taken Unknown] Allergy/AdvReac Type Severity Reaction Status Date / Time doxycycline Allergy Unknown Verified 12/08/23 18:31 erythromycin base Allergy Chest Verified 12/08/23 18:31 [Erythromycin Base] tightness Penicillins Allergy Unknown Verified 12/08/23 18:31 tramadol HCl [From Ultram] Allergy Swelling Verified 12/08/23 18:31 cefdinir [From Omnicef] AdvReac Other Verified 12/08/23 18:31 risperidone [From Risperdal] AdvReac Unknown Verified 12/08/23 18:31 valacyclovir HCl AdvReac Nausea Verified 12/08/23 18:31 [From Valtrex] Family History Other Arthritis Cancer Diabetes Heart disease Stomach ulcer Surgical History History of ankle surgery History of left heart catheterization (03/16/21) Hx of appendectomy Social History Smoking Status: Current every day smoker tobacco type: cigarettes ROS ROS ED Constitutional Constitutional ED: Denies chills, fever(s) or sweats Eyes Eyes: Denies change in vision ENT ENT ED: Denies rhinorrhea or sore throat Cardiovascular Cardiovascular: Denies chest pain, palpitations or racing heartbeat Respiratory/Chest Respiratory/Chest: Denies cough or dyspnea Gastrointestinal Gastrointestinal: Denies abdominal pain, nausea or vomiting Musculoskeletal Musculoskeletal: Reports arthralgias; Denies back pain or neck pain Integumentary Reports rash; Denies abscess or Abrasions Neurologic Neurologic: Denies headache(s), paresthesias or weakness Hematologic/Lymphatic Hematologic/Lymphatic: Denies easy bleeding or easy bruising Allergic/Immunologic Allergic/Immunologic ED: Denies urticaria EXAM Physical Exam Narrative Exam Narrative: CONSTITUTIONAL: Patient is nontoxic in appearance. The patient looks comfortable. Work of breathing looks normal. HEENT: No notable trauma. EYES: No pallor. NECK:No JVD. No stridor. CARDIOVASCULAR: Regular rate. Regular rhythm. No notable murmur. No JVD. RESPIRATORY: No respiratory distress. Breathing is unlabored. No wheezes. GASTROINTESTINAL: Not distended. Bowel sounds are normal. No tenderness. GENITOURINARY: No tenderness over the bladder. No CVA tenderness. MUSCULOSKELETAL: Atraumatic. No peripheral edema. No cord. No tenderness along the deep venous system. No asymmetry. No distended veins. 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 But she has excellent distal pulses. Her legs are warm. The knees show no effusion whatsoever. She does have crepitance with motion around the patella consistent with patellofemoral syndrome and likely arthritic changes. There is no clinical indication whatsoever of infection. I think her knees are sore after doing walking up and down a hill and she also states she did a lot more walking today than is normal. I think rest is appropriate. Nonsteroidals are appropriate. NEUROLOGICAL: Patient is alert and appropriate. No focal deficit noted. SKIN: Livedo reticularis over both knees. PSYCHIATRIC: Patient is calm. Mood is appropriate. Const Vital Signs: 12/08/23 18:31 Temperature 98 F Temperature Source Temporal Pulse Rate 101 H Respiratory Rate 18 Blood Pressure 141/96 H Blood Pressure Mean 111 Pulse Ox 100 Oxygen Delivery Method Room Air Discharge Plan Triage Chief Complaint: Lower Extremity Injury ED Provider: José Miguel Arzola Dx/Rx/DC Orders Clinical Impression: Bilateral anterior knee pain, Livedo reticularis Instructions: ED Knee Pain of Uncertain Cause Prescriptions: New naproxen [Naprosyn] 500 mg tablet 500 mg PO BID PRN (Reason: pain) Qty: 20 0RF No Action pantoprazole 40 MG tablet 40 mg PO BID Patient Comments: ACID REFLUX/GERD atorvastatin 40 MG tablet 40 mg PO DAILY cetirizine 10 MG tablet 10 mg PO DAILY gabapentin 400 MG capsule 400 mg PO TID buspirone 15 MG tablet 15 mg PO TID venlafaxine 150 MG tablet extended release 24hr 150 mg PO DAILY aspirin 81 mg Tablet,Delayed Release (Dr/Ec) 81 mg PO DAILY@0800 Qty: 30 0RF fluconazole 150 mg tablet 150 mg PO Q3D Qty: 1 0RF Primary Care Provider: Martinez Cohen Referrals: Martinez Cohen MD [Primary Care Provider] - 3-5 Days Disposition Disposition: Home, Self Care
[2023-12-08] MEDS: Naproxen 500 MG Tablet PO (19:30)
[2023-12-08 19:31] VITALS: BMI 26.1
== END 2023-12-08 19:32 | disposition home or self-care (01) ==
PROVIDERS: Emergency Provider Emergency Medicine; PCP Family Medicine; Visit Provider Emergency Medicine
DX: M25.561 Pain in right knee (principal); F17.210 Nicotine dependence, cigarettes, uncomplicated; M25.562 Pain in left knee; R23.1 Pallor; X50.9XXA Other and unspecified overexertion or strenuous movements or postures, initial encounter; Y93.01 Activity, walking, marching and hiking; Y92.828 Other wilderness area as the place of occurrence of the external cause; I25.10 Atherosclerotic heart disease of native coronary artery without angina pectoris; I10 Essential (primary) hypertension; Z79.82 Long term (current) use of aspirin; Z90.49 Acquired absence of other specified parts of digestive tract
CPT/HCPCS: 99282

== ENCOUNTER 2024-04-11 00:32 | Emergency (ER) | payer SELFPAY ==
[2024-04-11 00:32] VITALS: BP 148/90; PULSE 98; RESP 14; TEMP 35.9; O2SAT 99; BMI 23.8
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
[2024-04-11] MEDS: Fluorescein 1 MG STRIP 1 STRIP LEFT EYE (01:46)
[2024-04-11] MEDS: Tetracaine 0.5% Ophthalmic Bottle 3 DRP LEFT EYE (01:46)
[2024-04-11] MEDS: Neomycin/Bacitracin/Polymyxin Opth. Ointment 1 APPLIC RIGHT EYE (03:46)
[2024-04-11 03:55] VITALS: BP 130/72; PULSE 67; RESP 16; TEMP 36.6; O2SAT 97
== END 2024-04-11 03:56 | disposition home or self-care (01) ==
PROVIDERS: Emergency Provider Emergency Medicine; PCP Family Medicine; Visit Provider Emergency Medicine
DX: S05.01XA Injury of conjunctiva and corneal abrasion without foreign body, right eye, initial encounter (principal); Z97.3 Presence of spectacles and contact lenses; F17.210 Nicotine dependence, cigarettes, uncomplicated; I25.10 Atherosclerotic heart disease of native coronary artery without angina pectoris; I10 Essential (primary) hypertension; X58.XXXA Exposure to other specified factors, initial encounter
CPT/HCPCS: 99284; A4216

== ENCOUNTER 2024-09-12 23:56 | Emergency (ER) | payer MEDICAID, SELFPAY ==
[2024-09-12 23:56] VITALS: BP 160/87; PULSE 93; RESP 16; TEMP 36.1; O2SAT 98; BMI 29.9
[2024-09-13 00:15] LABS: Bacteria 0 SEEN /hpf (None Seen); Mucous, Urine 0 SEEN /hpf (<or=2+)
[2024-09-13 00:17] LABS: Color, Urine Yellow (Yellow); Glucose, Dipstick Normal (Normal); Ketone-Dipstick Negative (Negative); Leukocyte Esterase-Dipstick 100 /ul (Negative); Nitrite-Dipstick Negative (Negative); Occult Blood-Urine 10 /ul (Negative); Protein-Dipstick Negative (Negative); Urine Bilirubin Dipstick Negative (Negative); Urine Clarity Clear (Clear); Urine Urobilinogen Normal (Normal)
[2024-09-13 00:26] LABS: Red Blood Cells-Urine 0-5 SEEN /hpf (0-5); Squamous Epithelial Cells - UA 5-10 SEEN /hpf (5-10); White Blood Cells 0-5 SEEN /hpf (0-5)
[2024-09-13 00:27] LABS: Internal QC Validated? YES +Cl - CLEAR BKGD; Pregnancy, Urine Negative Negative; Record Kit Lot#,Urine Preg 869294; Trichomonas 0-5 SEEN /hpf (None Seen)
[2024-09-13] MEDS: metroNIDAZOLE 500 MG Tablet 2000 MG PO (01:03)
== END 2024-09-13 01:04 | disposition home or self-care (01) ==
PROVIDERS: Emergency Provider Emergency Medicine; PCP Family Medicine; Visit Provider Emergency Medicine
DX: A59.01 Trichomonal vulvovaginitis (principal); I25.10 Atherosclerotic heart disease of native coronary artery without angina pectoris; I10 Essential (primary) hypertension; Z98.51 Tubal ligation status; Z90.49 Acquired absence of other specified parts of digestive tract; F17.210 Nicotine dependence, cigarettes, uncomplicated
CPT/HCPCS: 81001; 81025; 87491; 87591; 99282

== ENCOUNTER 2024-10-02 23:26 | Emergency (ER) | payer MEDICAID, SELFPAY ==
[2024-10-02 23:26] VITALS: BP 128/90; PULSE 85; RESP 17; TEMP 36.4; O2SAT 98; BMI 30.2
--- NOTE | 2024-10-02 23:52 | EDS_ITS ---
HPI History of Present Illness Chief Complaint: Chest Pain Informant: patient and spouse/S.O. Narrative Narrative: 49-year-old female presents with 2-3 episodes over the past 1 or 2 days of chest pressure, pain in her upper mid back, and the episode that she had just prior to arrival today it radiated up into her anterior neck and jaw. These episodes of all lasted few minutes each 1. Associated nausea no vomiting, no palpitations, near-syncope or syncope, diaphoresis, or other associated symptoms although she states she has a headache right now. She states last time this happened a couple years ago she ended up with abnormal troponin, a heart cath, and vasospasm. She has never used cocaine that she knows of then, nor recently. She has not tried taking any medications for the symptoms in the last day or 2 but concern because these are similar symptoms. She is a heavy smoker. [facility] Medical History Essential (primary) hypertension Atherosclerotic heart disease of [place] coronary artery without angina pectoris Stomach ulcer Heart disease Shoulder pain Hemorrhoids Lung disease Arthritis Home Medications ?Medication ?Instructions ?Recorded ?Last Taken ?Type pantoprazole 40 mg tablet,delayed 40 mg PO BID gerd 04/09/06/14/23 History release cetirizine 10 mg tablet 10 mg PO DAILY allergies 04/14/20 06/14/23 History gabapentin 400 mg capsule 400 mg PO TID nerve pain 06/17/20 06/17/20 History venlafaxine 150 mg tablet,extended 150 mg PO DAILY depression 06/17/20 06/14/23 History release 24 hr venlafaxine 37.5 mg 37.5 mg PO DAILY 09/12/24 Unknown History capsule,extended release 24 hr aspirin 81 mg capsule 81 mg PO DAILY #1 cap 10/03/24 Unknown Rx atorvastatin 40 mg tablet 40 mg PO QHS #30 tabs 10/03/24 Unknown Rx isosorbide mononitrate 30 mg 30 mg PO DAILY #30 tabs 10/03/24 Unknown Rx tablet,extended release 24 hr Allergy/AdvReac Type Severity Reaction Status Date / Time doxycycline Allergy Unknown Verified 10/02/24 23:26 erythromycin base Allergy Chest Verified 10/02/24 23:26 (Erythromycin Base) tightness Penicillins Allergy Unknown Verified 11/26/24 23:26 tramadol HCl (From Ultram) Allergy Swelling Verified 10/02/24 23:26 cefdinir (From Omnicef) AdvReac Other Verified 10/02/24 23:26 risperidone (From Risperdal) AdvReac Unknown Verified 10/02/24 23:26 valacyclovir HCl (From AdvReac Nausea Verified 10/02/24 23:26 Valtrex) Family History Other Arthritis Cancer Diabetes Heart disease Stomach ulcer Surgical History Hx of tubal ligation Hx of nasal septoplasty History of herniorrhaphy Hx of appendectomy History of left heart catheterization (03/16/21) History of ankle surgery Social History (Updated 10/02/24 @ 23:[address] Angel Luis Bellamy MD) Smoking Status: Current every day smoker tobacco type: cigarettes substance use type: marijuana and other details: Smokes marijuana, ingests CBD Gummies, but no other substance or IVDU ROS ROS ED Constitutional Constitutional ED: Denies chills or fever(s) Eyes Eyes: Denies change in vision or diplopia ENT ENT ED: Denies rhinorrhea or sore throat Cardiovascular Cardiovascular: Reports as per HPI, chest pain and radiating jaw, neck or arm pain; Denies palpitations Respiratory/Chest Respiratory/Chest: Denies cough or dyspnea Gastrointestinal Gastrointestinal: Reports nausea; Denies abdominal pain, diarrhea or vomiting Genitourinary Genitourinary ED: Denies dysuria or hematuria Musculoskeletal Musculoskeletal: Reports neck pain; Denies back pain Integumentary Denies abscess or rash Neurologic Neurologic: Reports headache(s); Denies paresthesias or weakness EXAM Physical Exam Const Vital Signs: 10/02/24 23:26 10/02/24 23:42 10/02/24 23:44 Temperature 97.6 F L Temperature Source Temporal Pulse Rate 85 Respiratory Rate 17 Respiratory Effort Normal Non-Labored Blood Pressure 128/90 H Blood Pressure Mean 102 Pulse Ox 98 Oxygen Delivery Method Room Air Room Air 10/03/24 00:19 10/03/24 01:00 10/03/24 02:00 Temperature Temperature Source Pulse Rate 90 72 72 Respiratory Rate 16 18 18 Respiratory Effort Blood Pressure 120/84 H 131/82 H 126/85 H Blood Pressure Mean 96 98 98 Pulse Ox 97 97 98 Oxygen Delivery Method Room Air Room Air Room Air Positive well nourished and well developed General Appearance ED: well developed and NAD HEENT Reports moist mucous membranes normocephalic and atraumatic Eyes PERRL and EOMs intact bilaterally Neck full ROM and supple Resp normal respiratory effort and clear to auscultation bilaterally Cardio regular rate, regular rhythm and no murmurs Peripheral Pulses: pulses 2+ throughout GI non-tender and non-distended Auscultation: normoactive bowel sounds Palpation: soft Back/Spine no CVA tenderness General Back: other FROM Extremity normal to inspection General Extremety ED: Negative for edema, pulses abnormal or tenderness General Extremity: Negative for edema or pulses abnormal Neuro oriented x3, CN's II-XII intact bilaterally and no sensory deficits noted Sensorium / Orientation: awake and alert Motor Exam: strength 5/5 throughout Psych mental status grossly normal Skin no rashes or lesions noted and no wounds Heart Score History: Moderately Suspicious ECG: Normal Age: >45 - <65 years Risk Factors: >/= 3 Risk Factors or History of CAD Troponin: </= Normal Limit Score: 4 MDM MDM MDM Narrative Medical decision making narrative: Patient does have a history of coronary disease in the first diagonal in the RCA see below. She states these symptoms were similar. However, her EKG is normal, and she had another episode while waiting for test results in the ED, it only lasted 2 or 3 minutes and the library circulation technician arrived to obtain EKG just after the symptoms stopped spontaneously, and on my interpretation that EKG is also normal and unchanged. She has a leukocytosis which is nonspecific, her initial troponin is normal at 13. 1 view chest x-ray on my interpretation is normal. Patient was observed for a second troponin which returned at 13 for a delta of 0. No further symptoms. Discussed this case with cardiology Dr. Santo. He agrees that esophageal spasm is in the differential diagnosis given all of this, and with the troponin measurements and EKGs, he advises discharging the patient home with close outpatient follow-up and to get scheduled for a stress test, patient advised to call the office tomorrow. Looking at her prior heart cath, medical management was suggested but looking at the patient's medication list, she is on no cardiac medical management right now. Therefore cardiology recommends that for now at least, she take a baby aspirin daily and atorvastatin 40 mg, I am giving her prescriptions for that, as well as Imdur 30 mg, as long as she tolerates it that may help the symptoms even if they are esophageal spasm in nature. She is comfortable with that overall plan. History & Record Review Additional record(s) reviewed:: Other (Prior heart cath 03/2021: Focal first diagonal ostial 60% stenosis and nonobstructive distal RCA 60%) Lab Data Attestation: I reviewed the patient's lab results. Labs: Laboratory Results - last 24 hr 10/02/24 10/03/24 23:38 01:30 WBC 15.4 H RBC 4.40 Hgb 12.4 Hct 38.8 MCV 88.2 MCH 28.2 MCHC 32.0 RDW Std Deviation 52.1 H RDW Coeff of [place] 16.0 H Plt Count 389 MPV 10.0 Immature Gran % (Auto) 0.700 Neut % (Auto) 55.0 Lymph % (Auto) 32.0 [place] % (Auto) 8.3 Eos % (Auto) 3.2 Baso % (Auto) 0.8 Absolute Neuts (auto) 8.5 H Absolute Lymphs (auto) 4.91 H Nucleated RBC % 0 Sodium 136 Potassium 3.8 Chloride 106 Carbon Dioxide 26.0 Anion Gap 5 BUN 13 Creatinine 0.80 Estim Creat Clear Calc 81.59 Est GFR (MDRD) Af Amer 99 Est GFR (MDRD) Non-Af 82 BUN/Creatinine Ratio 16.3 Glucose 113 H Calcium 8.6 Troponin I High Sens 13 13 Radiography Diagnostic Testing: Clinical Impression(s) from Imaging Studies Chest X-Ray 10/02/24 23:55 IMPRESSION: No radiographic evidence of acute cardiopulmonary disease. Electronically Signed: Lisa Worthington MD at 0:17 EST Reading Location ID and State: [facility] / [place] , Service support , Rhythm Strip Rhythm Strip: Sinus Rhythm Rate: 85 Ectopy: None EKG Initial EKG: Attestation: I personally reviewed and interpreted this EKG as follows: Interpretation: Sinus Rhythm and No Acute Injury Pattern Comments: Nml axis & intervals; nml EKG Follow-up EKG: Attestation: I personally reviewed and interpreted this EKG as follows: Interpretation: Sinus Rhythm and No Acute Injury Pattern Comments: Normal EKG, no changes compared with prior Management Discussion w/another healthcare provider: [employer] (Cardiology Dr. Santo) Discharge Plan Triage Chief Complaint: Chest Pain ED Provider: Angel Luis Bellamy Dx/Rx/DC Orders Clinical Impression: Intermittent chest pain, Coronary artery disease Instructions: ED Chest Pain, Uncertain Cause Prescriptions: New aspirin 81 mg capsule 81 mg PO DAILY Qty: 1 0RF atorvastatin 40 mg tablet 40 mg PO QHS Qty: 30 0RF isosorbide mononitrate 30 mg tablet extended release 24 hr 30 mg PO DAILY Qty: 30 0RF Continued pantoprazole 40 MG tablet 40 mg PO BID Patient Comments: ACID REFLUX/GERD cetirizine 10 MG tablet 10 mg PO DAILY gabapentin 400 MG capsule 400 mg PO TID venlafaxine 150 MG tablet extended release 24hr 150 mg PO DAILY venlafaxine 37.5 mg capsule,extended release 24hr 37.5 mg PO DAILY Primary Care Provider: Martinez Cohen Referrals: Sam Santo MD [Med Staff - Active Staff] - As soon as possible (Call in the morning for appointment 1st available brick paving checker) Martinez Cohen MD [Primary Care Provider] - Print Language: Malay Disposition Disposition: Home, Self Care
--- NOTE | 2024-10-02 23:55 | RAD_ITS ---
STUDY: X-RAY CHEST REASON FOR EXAM: Female, 49 years old patient with chest pain. TECHNIQUE: Single AP portable view of the chest. COMPARISON: Chest radiograph dated October 08, 2022. FINDINGS: Cardiac monitoring leads are present. The lungs are clear and expanded. There is no demonstrated pleural abnormality. Normal size heart. Normal mediastinum and filomena. Normal visualized pulmonary arteries. Normal visualized aortic arch and descending thoracic aorta. Normal visualized thoracic spine. Normal visualized ribs, clavicles, and shoulders. There is no demonstrated abnormality of the visualized soft tissue structures of the upper abdomen. RAD/Chest 1 View (Portable) IMPRESSION: No radiographic evidence of acute cardiopulmonary disease. Electronically Signed: Lisa Worthington MD at 0:17 EST ,
[2024-10-03 00:02] LABS: Absolute Lymphocyte Count 4.91 X10^3/uL (0.83-4.51); Absolute Neutrophil Count 8.5 X10^3/uL (2.0-7.7); Basophil# 0.12 X10^3/uL; Basophil% 0.8 % (0-1); Eosinophil# 0.49 X10^3/uL; Eosinophils% 3.2 % (0-5); Hematocrit 38.8 % (37-47); Hemoglobin 12.4 g/dL (12.0-15.0); Lymphocyte # 4.91 X10^3/ul (0.83-4.51); Mean Corpuscular Hgb 28.2 pg (27.0-32.0); Mean Corpuscular Volume 88.2 fL (81-99); Monocyte# 1.27 X10^3/uL; Monocyte% 8.3 % (0-10); NRBC Flagged by Analyzer 0 % (0-5); Neutrophil # 8.45 X10^3/uL (2.7-7.7); Platelet Count 389 K/mm3 (150-450); RBC Distribution Width SD 52.1 fl (35.1-43.9); White Blood Count 15.4 K/mm3 (4.4-11.0)
[2024-10-03] MEDS: Aspirin 81 MG TAB.CHEW 324 MG PO (00:17)
[2024-10-03] MEDS: Ondansetron 4 MG/2 ML Vial IV (00:17)
[2024-10-03 00:19] VITALS: BP 120/84; PULSE 90; RESP 16; O2SAT 97
[2024-10-03 00:37] LABS: Anion Gap 5 (5-15); BUN 13 mg/dL (7-18); BUN/Creat Ratio 16.3 RATIO (10-20); Calcium,Total 8.6 mg/dL (8.5-10.1); Chloride 106 mmol/L (98-107); EST Glomerular Filtration Rate 82 mL/min (>60); Est Glom Filt Rate - Afr Amer 99 mL/min (>60); Estimated Creatinine Clearance 81.59 ml/min; Glucose 113 mg/dL (74-106); Potassium 3.8 mmol/L (3.5-5.1); Sodium Level 136 mmol/L (136-145); Troponin-I HS (w/2H Reflex) 13 pg/mL (3.0-54.0)
[2024-10-03 01:00] VITALS: BP 131/82; PULSE 72; RESP 18; O2SAT 97
[2024-10-03 01:58] LABS: Reflex Troponin-HS? (from REC) Y
[2024-10-03 02:00] VITALS: BP 126/85; PULSE 72; RESP 18; O2SAT 98
[2024-10-03 02:40] LABS: Troponin-I HS 13 pg/mL (3.0-54.0)
[2024-10-03 03:05] VITALS: BP 128/82; PULSE 64; RESP 17; TEMP 36.6; O2SAT 99
== END 2024-10-03 03:05 | disposition home or self-care (01) ==
PROVIDERS: Emergency Provider Emergency Medicine; PCP Family Medicine; Visit Provider Emergency Medicine
DX: R07.9 Chest pain, unspecified (principal); I25.10 Atherosclerotic heart disease of native coronary artery without angina pectoris; R11.0 Nausea; F17.210 Nicotine dependence, cigarettes, uncomplicated; I10 Essential (primary) hypertension; Z79.82 Long term (current) use of aspirin; Z79.899 Other long term (current) drug therapy; R51.9 Headache, unspecified
CPT/HCPCS: 71045; 80048; 84484; 85025; 93005; 96374; 99284; A4216; J2405

== ENCOUNTER 2024-12-26 11:11 | Inpatient (IN) | payer MEDICAID, SELFPAY ==
[2024-12-26] VITALS (7 sets, daily range): BP systolic 107–154; BP diastolic 42–93; PULSE 58–98; RESP 16–20; TEMP 36.2–36.7; O2SAT 97–99; BMI 31.1; BMI 29.4
[2024-12-26 11:32] LABS: Absolute Lymphocyte Count 5.53 X10^3/uL (0.83-4.51); Absolute Neutrophil Count 5.7 X10^3/uL (2.0-7.7); Basophil# 0.07 X10^3/uL; Basophil% 0.5 % (0-1); Eosinophil# 0.42 X10^3/uL; Eosinophils% 3.2 % (0-5); Hematocrit 39.1 % (37-47); Lymphocyte # 5.53 X10^3/ul (0.83-4.51); Lymphocyte % 42.1 % (19-41); Mean Corp Hgb Conc 30.7 g/dL (32-36); Mean Corpuscular Hgb 27.1 pg (27.0-32.0); Mean Corpuscular Volume 88.5 fL (81-99); Mean Platelet Vol. 9.8 fl (6.2-12.0); Monocyte# 1.27 X10^3/uL; Monocyte% 9.7 % (0-10); NRBC Flagged by Analyzer 0 % (0-5); Neutrophil # 5.68 X10^3/uL (2.7-7.7); Neutrophil % 43.3 % (47-70); POSITIVE DIFFERENTIAL YES; Platelet Count 377 K/mm3 (150-450); RBC Distribution Width SD 58.4 fl (35.1-43.9); Red Blood Count 4.42 M/mm3 (4.2-5.4); White Blood Count 13.1 K/mm3 (4.4-11.0)
[2024-12-26 11:36] LABS: Differential Indicated SCAN CRITERIA MET
[2024-12-26] MEDS: Aspirin 81 MG TAB.CHEW 324 MG PO (11:43)
--- NOTE | 2024-12-26 11:43 | EX.ED.DYSGE1 ---
HPI History of Present Illness Chief Complaint: Flank Pain Informant: patient and spouse/S.O. Narrative Narrative: Patient is a 49-year-old female with history of COPD, coronary artery disease, tobacco use and hypertension presenting initially for flulike symptoms, lightheadedness/near syncope and right-sided flank pain. She states she has been having flulike symptoms for couple days and started having this flank pain. This morning she felt she was going to pass out which is what prompted her to come to the emergency room. While patient was being triaged she started to feel like she needed to lay down. The nurses tried to get vital signs and then patient went unresponsive. Initially nurse thought she was maybe having a syncopal episode but she did not feel any palpable pulses and lowered her to the ground and started chest compressions. Patient reportedly had agonal breathing. She had 5 to 10 seconds of chest compressions before waking up. RYANNE OXANA called in the emergency room. Patient come to by the time I arrived. Was taken from triage to ER room. Patient denied any chest pain. Is able to give me full HPI. [facility] Medical History Essential (primary) hypertension Atherosclerotic heart disease of [place] coronary artery without angina pectoris Stomach ulcer Heart disease Shoulder pain Hemorrhoids Lung disease Arthritis Home Medications ?Medication ?Instructions ?Recorded ?Last Taken ?Type pantoprazole 40 mg tablet,delayed 40 mg PO BID gerd 04/09/14 06/14/23 History release cetirizine 10 mg tablet 10 mg PO DAILY allergies 04/14/20 06/14/23 History gabapentin 400 mg capsule 400 mg PO TID nerve pain 06/17/20 06/17/20 History venlafaxine 150 mg tablet,extended 150 mg PO DAILY depression 06/17/20 06/14/23 History release 24 hr venlafaxine 37.5 mg 37.5 mg PO DAILY 09/12/24 Unknown History capsule,extended release 24 hr aspirin 81 mg capsule 81 mg PO DAILY #1 cap 10/03/24 Unknown Rx atorvastatin 40 mg tablet 40 mg PO QHS #30 tabs 10/03/24 Unknown Rx isosorbide mononitrate 30 mg 30 mg PO DAILY #30 tabs 10/03/24 Unknown Rx tablet,extended release 24 hr albuterol sulfate 90 mcg/actuation 2 puff inhalation Q4H PRN PRN 12/26/24 Unknown History aerosol inhaler wheezing Allergy/AdvReac Type Severity Reaction Status Date / Time doxycycline Allergy Unknown Verified 12/26/24 11:21 erythromycin base Allergy Chest Verified 12/26/24 11:21 (Erythromycin Base) tightness Penicillins Allergy Unknown Verified 12/26/24 11:21 tramadol HCl (From Ultram) Allergy Swelling Verified 12/26/24 11:21 cefdinir (From Omnicef) AdvReac Other Verified 12/26/24 11:21 risperidone (From Risperdal) AdvReac Unknown Verified 12/26/24 11:21 valacyclovir HCl (From AdvReac Nausea Verified 12/26/24 11:21 Valtrex) Family History Other Arthritis Cancer Diabetes Heart disease Stomach ulcer Surgical History Hx of tubal ligation Hx of nasal septoplasty History of herniorrhaphy Hx of appendectomy History of left heart catheterization (03/16/21) History of ankle surgery Social History Smoking Status: Current every day smoker tobacco type: cigarettes substance use type: marijuana and other details: Smokes marijuana, ingests CBD Gummies, but no other substance or IVDU ROS ROS ED Constitutional Constitutional ED: Reports chills Eyes Eyes: Denies blurry vision Cardiovascular Cardiovascular: Denies chest pain or palpitations Respiratory/Chest Respiratory/Chest: Reports cough and dyspnea Gastrointestinal Gastrointestinal: Reports abdominal pain Genitourinary Genitourinary ED: Denies dysuria or hematuria Musculoskeletal Musculoskeletal: Reports back pain and other Details: right flank pain Integumentary Denies rash Neurologic Neurologic: Reports weakness; Denies paresthesias EXAM Physical Exam Const Vital Signs: 12/26/24 11:15 12/26/24 11:20 12/26/24 11:46 Temperature 97.5 F L 97.2 F L Temperature Source Temporal Temporal Pulse Rate 58 L 68 Respiratory Rate 16 20 H Respiratory Effort Respiratory Pattern Blood Pressure 154/85 H 154/85 H Blood Pressure Mean 108 108 Pulse Ox 98 98 Oxygen Delivery Method Room Air Room Air Room Air 12/26/24 11:47 12/26/24 13:27 12/26/24 15:00 Temperature 97.8 F Temperature Source Temporal Pulse Rate 63 70 Respiratory Rate 18 18 Respiratory Effort Normal Non-Labored Respiratory Pattern Normal Blood Pressure 144/93 H 115/74 Blood Pressure Mean 110 87 Pulse Ox 98 97 Oxygen Delivery Method Room Air Room Air Positive well nourished and well developed Constitutional Narrative: Patient mildly ill-appearing General Appearance ED: well developed HEENT Reports TM's clear and moist mucous membranes HEENT Narrative: Nasal congestion present Tympanic Membrane ED: Yes TM's clear Neck supple and no JVD Chest Wall inspection of chest normal and palpation of chest normal Resp normal respiratory effort Resp Narrative: Mildly coarse breath sounds throughout Cardio regular rhythm and no murmurs Rate: bradycardia GI non-distended GI Narrative: No palpable mass appreciated. Inspection: Negative for abdominal distention Palpation: soft and tender RLQ and RUQ; Negative for guarding Back/Spine General Back: CVA tenderness right Extremity normal to inspection Extremity Narrative: 2+ radial DP pulses General Extremety ED: Negative for edema or tenderness General Extremity: Negative for edema Neuro oriented x3 Neuro Narrative: No focal deficits appreciated Sensorium / Orientation: alert Motor Exam: general weakness Psych mental status grossly normal Skin no rashes or lesions noted and no wounds MDM MDM MDM Narrative Medical decision making narrative: Patient presented to the ER for worsening left flank pain and flulike symptoms. She has had cough. She started to feel like she was going to pass out today which prompted her to come to the emergency room. In triage patient had an unresponsive episode with no palpable pulse lasting for at least 20 seconds. Chest compressions were started CODE BLUE was called. After a couple seconds of chest compressions patient awoke. Differential includes viral syndrome, vasovagal syncope, myocarditis, pericarditis, pneumonia, sepsis, urinary tract infection, pyelonephritis, aortic dissection, ACS, prolonged sinus pause, cardiac arrhythmia and pneumothorax. EKG shows sinus bradycardia. Patient CBC shows a mild leukocytosis of 13.1 with a left shift. Chart reviewed does show that patient does tend to have an elevated white blood cell count and she is near her baseline. High sensitive troponin normal at 7 and 8. EKG is nonischemic. CMP normal. Urinalysis not consistent with infection. CT of the chest abdomen pelvis obtained which does not show any acute process. Does show nodule at the left lung apex as well as emphysematous changes. On the ER patient is clean of headache. When she went unresponsive and pulseless nursing staff and her boyfriend lowered her from the chair to the ground and had to start chest compressions. The back of her head did strike the ground for about [address] of the brain is added on to ensure that there is an intracranial process. This was negative. Patient given fentanyl, Tylenol and aspirin in the emergency room. She is also given IV fluids. Patient has no further arrhythmia or unresponsive episodes. She remains hemodynamically stable. Given her presentation will be admitted for further cardiac evaluation. Patient is agreeable. Case discussed with hospitalist, Dr. Hernández. Lab Data Attestation: I reviewed the patient's lab results. Labs: Laboratory Results - last 24 hr 12/26/24 12/26/24 12/26/24 11:25 13:05 13:44 WBC 13.1 H RBC 4.42 Hgb 12.0 Hct 39.1 MCV 88.5 MCH 27.1 MCHC 30.7 L RDW Std Deviation 58.4 H RDW Coeff of Clark 18.0 H Plt Count 377 MPV 9.8 Immature Gran % (Auto) 1.200 H Neut % (Auto) 43.3 L Lymph % (Auto) 42.1 H [place] % (Auto) 9.7 Eos % (Auto) 3.2 Baso % (Auto) 0.5 Absolute Neuts (auto) 5.7 Absolute Lymphs (auto) 5.53 H Nucleated RBC % 0 Sodium 138 Potassium 3.5 Chloride 106 Carbon Dioxide 24.0 Anion Gap 8 BUN 12 Creatinine 0.90 Estim Creat Clear Calc 73.54 Est GFR (MDRD) Af Amer 85 Est GFR (MDRD) Non-Af 70 BUN/Creatinine Ratio 13.3 Glucose 116 H Calcium 8.9 Magnesium 1.8 Total Bilirubin 0.10 L Direct Bilirubin 0.07 AST 34 ALT 58 H Alkaline Phosphatase 160 H Troponin I High Sens 7 8 Total Protein 7.0 Albumin 3.0 L Globulin 4.0 TSH 0.738 Urine Color Yellow Urine Clarity Sl. Cloudy Urine pH 6.5 Ur Specific [place] 1.010 Urine Protein 15 H Urine Glucose (UA) Normal Urine Ketones Negative Urine Occult Blood 10 H Urine Nitrite Negative Urine Bilirubin Negative Urine Urobilinogen Normal Ur Leukocyte Esterase Negative Urine RBC 0-5 SEEN Urine WBC 0 SEEN Ur Squamous Epith Cells 0-5 SEEN Urine Bacteria 0 SEEN Urine Mucus 0 SEEN Radiography Diagnostic Testing: Clinical Impression(s) from Imaging Studies Chest/Abdomen/Pelvis CTA 12/26/24 11:51 IMPRESSION: 1.4 cm noncalcified nodule in the lateral aspect of the left lung apex. Emphysema with bullous formation worse in the right hemithorax. Hepatomegaly and diffuse fatty infiltration of the liver. Status post cholecystectomy. One or more dose reduction techniques were used (e.g., Automated exposure control, adjustment of the mA and/or kV according to patient size, use of iterative reconstruction technique). Reading Location: [facility]-[address] 12/26/24 14:47 IMPRESSION: 1. No acute intracranial findings. 2. Ethmoid, bilateral maxillary, and sphenoid sinus inflammation. Reading Location: [facility] Rhythm Strip Rhythm Strip: Sinus Rhythm Rate: 52 Ectopy: None EKG Initial EKG: Attestation: I personally reviewed and interpreted this EKG as follows: Interpretation: Sinus Bradycardia Comments: Sinus bradycardia rate of 52 bpm Normal axis Normal intervals Normal ST segments Prior EKG tracings: available for review Prior: Unchanged Management Discussion w/another healthcare provider: Hospitalist Discharge Plan Triage Chief Complaint: Flank Pain ED Provider: Azra Flores Dx/Rx/DC Orders Clinical Impression: Loss of consciousness, Headache, Acute right flank pain Primary Care Provider: Martinez Cohen Disposition Disposition: Acute Care Hospital [facility]
[2024-12-26] MEDS: 0.9% Normal Saline (1000mL) 1,000 ML 999 ML IV (11:44)
--- NOTE | 2024-12-26 11:51 | CT_ITS ---
PROCEDURE: CTA CHST, ABD, PEL W AND/OR WO REASON FOR EXAM: Flu-like symptoms. Syncopal episodes. CPR performed. TECHNIQUE: Chest, abdomen and pelvis CT with intravenous contrast. No oral contrast. CONTRAST: 100 cc of Isovue 370. COMPARISON: Comparison is made with prior CT scan of the abdomen and pelvis dated May 05, 2022. FINDINGS: CT CHEST: Hardware: None. Lymph nodes: No mediastinal hilar or axillary lymphadenopathy. Heart and Vasculature: Normal heart size. No pericardial effusion. Atherosclerotic calcifications of the thoracic aorta. Pulmonary arteries are unremarkable. Lungs and Airways: There is a 1.4 cm noncalcified nodule in the peripheral lateral aspect of the left lung apex. Bullous formation in both lung apices worse on the right side. Emphysematous changes worse in the right upper lobe. Pleura: No pleural effusion. No pneumothorax. Bones: Unremarkable. CT ABDOMEN/PELVIS: Liver: Diffuse fatty infiltration. Hepatomegaly. Gallbladder: Surgically absent. Spleen: Unremarkable. Pancreas: Unremarkable. Adrenals: Unremarkable. Kidneys: Unremarkable. Bladder: Unremarkable. Reproductive Organs: Unremarkable. Bowel: Unremarkable. Appendix: Normal. Lymph nodes: No suspicious lymph node enlargement. Vasculature: Mild atherosclerotic calcifications are noted. Peritoneum / Retroperitoneum: No ascites. No free air. Bones: Unremarkable. CT/CTA Chst, Abd, Pel W and/or WO IMPRESSION: 1.4 cm noncalcified nodule in the lateral aspect of the left lung apex. Emphys vivien with bullous formation worse in the right hemithorax. Hepatomegaly and diffuse fatty infiltration of the liver. Status post cholecystectomy. One or more dose reduction techniques were used (e.g., Automated exposure contr ol, adjustment of the mA and/or kV according to patient size, use of iterative reconstruction technique). Reading Location: [place] [id number]
[2024-12-26 11:59] LABS: AST(SGOT) 34 U/L (15-37); Alanine Aminotransfer ALT/SGPT 58 U/L (13-56); Alkaline Phosphatase 160 U/L (45-117); Anion Gap 8 (5-15); BUN 12 mg/dL (7-18); BUN/Creat Ratio 13.3 RATIO (10-20); Bilirubin, Direct 0.07 mg/dL (0.00-0.30); Calcium,Total 8.9 mg/dL (8.5-10.1); Chloride 106 mmol/L (98-107); EST Glomerular Filtration Rate 70 mL/min (>60); Est Glom Filt Rate - Afr Amer 85 mL/min (>60); Estimated Creatinine Clearance 73.54 ml/min; Glucose 116 mg/dL (74-106); Magnesium 1.8 mg/dL (1.6-2.6); Potassium 3.5 mmol/L (3.5-5.1); Sodium Level 138 mmol/L (136-145); Thyroid Stim Hormone (TSH) 0.738 uIU/mL (0.358-3.740); Troponin-I HS (w/2H Reflex) 7 pg/mL (3.0-54.0)
[2024-12-26 13:17] LABS: Bacteria 0 SEEN /hpf (None Seen); Mucous, Urine 0 SEEN /hpf (<or=2+); White Blood Cells 0 SEEN /hpf (0-5)
[2024-12-26 13:20] LABS: Color, Urine Yellow (Yellow); Glucose, Dipstick Normal (Normal); Ketone-Dipstick Negative (Negative); Leukocyte Esterase-Dipstick Negative /ul (Negative); Nitrite-Dipstick Negative (Negative); Occult Blood-Urine 10 /ul (Negative); Protein-Dipstick 15 mg/dl (Negative); Urine Bilirubin Dipstick Negative (Negative); Urine Clarity Sl. Cloudy (Clear); Urine Urobilinogen Normal (Normal); Urine pH 6.5 (5.0 - 8.0)
[2024-12-26 13:25] LABS: Red Blood Cells-Urine 0-5 SEEN /hpf (0-5); Squamous Epithelial Cells - UA 0-5 SEEN /hpf (5-10)
[2024-12-26 13:28] LABS: Reflex Troponin-HS? (from REC) Y
[2024-12-26] MEDS: fentaNYL 100 MCG/2 ML Ampul 50 MCG IV (13:28)
[2024-12-26 14:12] LABS: Troponin-I HS 8 pg/mL (3.0-54.0)
--- NOTE | 2024-12-26 14:47 | CT_ITS ---
EXAM: CT BRAIN WITHOUT CONTRAST CLINICAL HISTORY: HEADACHE. COMPARISON: NO RELEVANT PRIOR. TECHNIQUE: Contiguous axial scans of 3.75 mm slice thicknesses with sagittal and coronal reconstruction images. One or more dose reduction techniques were utilized (e.g., automated exposure control, adjustment of mA and/or kv according to patient size, use of iterative reconstruction technique). FINDINGS: No intraparenchymal hemorrhage. No abnormal areas of encephalomalacia. No mass effect or midline shift. [place]-white matter differentiation is normal. Ventricles and cisterns are appropriate size for patient's age. No extra-axial fluid collections. Cerebellum and posterior fossa unremarkable. Mucoperiosteal thickening involving the ethmoid, bilateral maxillary, and right side of the sphenoid sinuses. Mastoid air cells are normal. Calvarium unremarkable. Soft tissues unremarkable. CT/Brain/Head without Contrast IMPRESSION: 1. No acute intracranial findings. 2. Ethmoid, bilateral maxillary, and sphenoid sinus inflammation. Reading Location: [place]
[2024-12-26] MEDS: Acetaminophen 325 MG Tablet 650 MG PO ×2 (14:51→21:07)
--- NOTE | 2024-12-26 15:28 | PCM.HP.STD ---
[facility] - General General Date of Service: 12/26/24 Chief Complaint: flu like symptoms, syncope and collapse HPI Narrative IVAN JUDD, is a 49-year-old female with history of COPD, coronary artery disease, tobacco use, hypertension, GERD, depression who presented [facility] ED 12/26/2024 with flulike symptoms, right flank pain and lightheadedness/near syncope. She has been having flulike symptoms for a couple of days and started to have flank pain earlier. This morning she thought she was going to pass out which prompted her to come to the ED. In triage she started feeling she needed to lay down and when the nurse was attempting it vital she went unresponsive, initially nurse thought she may be having syncopal episode but did not feel a palpable pulse and later on the ground and started chest compressions, she had 5 to 10 seconds of chest compressions before waking up. Patient awoke by the time ED physician arrived and was taken from triage to ED room. Workup in ED unremarkable however given patient's presenting complaints and loss of consciousness, whether syncope or code, hospitalist contacted for admission. Patient evaluated bedside with significant other and reports that for around 3 days or so she has been feeling very ill with cough, fever, sinus congestion, achy with a little bit of increased shortness of breath but mostly just feels unwell, has some nausea but no diarrhea or abdominal pain. Reports that this morning she was lightheaded and has not been up and getting around very much because she just feels unwell. Over the past day or so did develop some right lower back pain that comes and goes and sometimes radiates towards the front but denies any other urinary symptoms at this time, denies any chest pain. Reports when she was in triage notes that she felt like she was get a pass out and then that is all she remembered. Currently has some headache but does report she also had headache before just a little bit worse now with pressure primarily behind her eyes. [facility] Medical History Essential (primary) hypertension Atherosclerotic heart disease of [place] coronary artery without angina pectoris Stomach ulcer Heart disease Shoulder pain Hemorrhoids Lung disease Arthritis Home Medications ?Medication ?Instructions ?Recorded ?Last Taken ?Type pantoprazole 40 mg tablet,delayed 40 mg PO BID gerd 06/03/14 08/08/23 History release cetirizine 10 mg tablet 10 mg PO DAILY allergies 04/14/20 06/14/23 History gabapentin 400 mg capsule 400 mg PO TID nerve pain 06/17/20 06/17/20 History venlafaxine 150 mg tablet,extended 150 mg PO DAILY depression 06/17/20 06/14/23 History release 24 hr venlafaxine 37.5 mg 37.5 mg PO DAILY 09/12/24 Unknown History capsule,extended release 24 hr aspirin 81 mg capsule 81 mg PO DAILY #1 cap 10/03/24 Unknown Rx atorvastatin 40 mg tablet 40 mg PO QHS #30 tabs 10/03/24 Unknown Rx isosorbide mononitrate 30 mg 30 mg PO DAILY #30 tabs 10/03/24 Unknown Rx tablet,extended release 24 hr albuterol sulfate 90 mcg/actuation 2 puff inhalation Q4H PRN PRN 12/26/24 Unknown History aerosol inhaler wheezing Allergy/AdvReac Type Severity Reaction Status Date / Time doxycycline Allergy Unknown Verified 12/26/24 11:21 erythromycin base Allergy Chest Verified 12/26/24 11:21 (Erythromycin Base) tightness Penicillins Allergy Unknown Verified 12/26/24 11:21 tramadol HCl (From Ultram) Allergy Swelling Verified 12/26/24 11:21 cefdinir (From Omnicef) AdvReac Other Verified 12/26/24 11:21 risperidone (From Risperdal) AdvReac Unknown Verified 12/26/24 11:21 valacyclovir HCl (From AdvReac Nausea Verified 12/26/24 11:21 Valtrex) Family History Other Arthritis Cancer Diabetes Heart disease Stomach ulcer Surgical History Hx of tubal ligation Hx of nasal septoplasty History of herniorrhaphy Hx of appendectomy History of left heart catheterization (03/16/21) History of ankle surgery Social History Smoking Status: Current every day smoker tobacco type: cigarettes substance use type: marijuana and other details: Smokes marijuana, ingests CBD Gummies, but no other substance or IVDU ROS ROS Narrative General: Some fevers at home HENT: Nasal congestion and head pressure EYES: Denies changes in vision Resp: Some increased shortness of breath but primarily cough Cardiac: Denies chest pain GI: Denies abdominal pain, denies changes in bowel, some nausea with no vomiting : Denies changes in urination Extremity: Denies swelling MSK: Denies weakness, does have some right lower back pain Neuro: Denies any numbness/tingling Heme: Denies any bleeding or bruising Skin: Denies rashes Psychiatric: No complaints voiced Vital Signs Vital Signs Vital Signs: 12/26/24 11:15 12/26/24 11:20 12/26/24 11:46 Temperature 97.5 F L 97.2 F L Temperature Source Temporal Temporal Pulse Rate 58 L 68 Respiratory Rate 16 20 H Respiratory Effort Respiratory Pattern Blood Pressure 154/85 H 154/85 H Blood Pressure Mean 108 108 Pulse Ox 98 98 Oxygen Delivery Method Room Air Room Air Room Air 12/26/24 11:47 12/26/24 13:27 12/26/24 15:00 Temperature 97.8 F Temperature Source Temporal Pulse Rate 63 70 Respiratory Rate 18 18 Respiratory Effort Normal Non-Labored Respiratory Pattern Normal Blood Pressure 144/93 H 115/74 Blood Pressure Mean 110 87 Pulse Ox 98 97 Oxygen Delivery Method Room Air Room Air Weight Weight: 77.2 kg Body Mass Index (BMI) 31.1 Physical Exam Narrative General: Alert, oriented HEENT: Atraumatic, normocephalic Eyes: Anicteric, normal conjunctiva, extraocular movements grossly intact Neck: Supple Respiratory: No significant wheezes or rhonchi, normal respiratory effort Cardiovascular: Regular rate and rhythm GI: Soft, nontender, nondistended Extremities: No edema Musculoskeletal: Moving all extremities Neuro: No overt focal neurological deficits Skin: No rashes appreciated Psych: Cooperative Results Lab / Micro Data 12/26/24 11:25 12/26/24 11:25 Labs: Laboratory Results - last 24 hr 12/26/24 11:25: WBC 13.1 H, RBC 4.42, Hgb 12.0, Hct 39.1, MCV 88.5, MCH 27.1, MCHC 30.7 L, RDW Std Deviation 58.4 H, RDW Coeff of Clark 18.0 H, Plt Count 377, MPV 9.8, Immature Gran % (Auto) 1.200 H, Neut % (Auto) 43.3 L, Lymph % (Auto) 42.1 H, [place] % (Auto) 9.7, Eos % (Auto) 3.2, Baso % (Auto) 0.5, Absolute Neuts (auto) 5.7, Absolute Lymphs (auto) 5.53 H, Nucleated RBC % 0, Sodium 138, Potassium 3.5, Chloride 106, Carbon Dioxide 24.0, Anion Gap 8, BUN 12, Creatinine 0.90, Estim Creat Clear Calc 73.54, Est GFR (MDRD) Af Amer 85, Est GFR (MDRD) Non-Af 70, BUN/Creatinine Ratio 13.3, Glucose 116 H, Calcium 8.9, Magnesium 1.8, Total Bilirubin 0.10 L, Direct Bilirubin 0.07, AST 34, ALT 58 H, Alkaline Phosphatase 160 H, Troponin I High Sens 7, Total Protein 7.0, Albumin 3.0 L, Globulin 4.0, TSH 0.738 12/26/24 13:05: Urine Color Yellow, Urine Clarity Sl. Cloudy, Urine pH 6.5, Ur Specific [place] 1.010, Urine Protein 15 H, Urine Glucose (UA) Normal, Urine Ketones Negative, Urine Occult Blood 10 H, Urine Nitrite Negative, Urine Bilirubin Negative, Urine Urobilinogen Normal, Ur Leukocyte Esterase Negative, Urine RBC 0-5 SEEN, Urine WBC 0 SEEN, Ur Squamous Epith Cells 0-5 SEEN, Urine Bacteria 0 SEEN, Urine Mucus 0 SEEN 12/26/24 13:44: Troponin I High Sens 8 Micro: Microbiology 12/26/24 11:35 Mucosa - Nose SARS-CoV-2, Influenza & RSV (PCR) - Final Imaging Radiology Impression Chest/Abdomen/Pelvis CTA 12/26/24 11:51 IMPRESSION: 1.4 cm noncalcified nodule in the lateral aspect of the left lung apex. Emphysema with bullous formation worse in the right hemithorax. Hepatomegaly and diffuse fatty infiltration of the liver. Status post cholecystectomy. One or more dose reduction techniques were used (e.g., Automated exposure control, adjustment of the mA and/or kV according to patient size, use of iterative reconstruction technique). Reading Location: [facility]-1 Assessment & Plan Assessment/Plan (1) Loss of consciousness: PLAN: Plan # Loss of consciousness -Patient had been intermittently lightheaded earlier today and has been sick with a flulike illness for several days and in the ED had an episode of loss of consciousness, nurse was unable to palpate pulse so code was called and she started chest compressions, after 10 to 15 seconds of compressions patient woke up, query if this was really vasovagal episode with hypotension making it difficult to palpate pulse, unclear if there was actually cardiac arrest especially given normal troponins x 2 -Will admit to telemetry -Given recent event we will hold off on Ortho stats at this time and give IV fluids -Will check echocardiogram, if any changes in LV would consult cardiology -No history of stents, previously had 60% RCA stenosis in 2020 but without need for stenting at that time -Patient with no chest pain, normal troponins, EKG similar to previous, heart rate 52, on telemetry has not been noted to have any kind of arrhythmias -Additionally CTA of the chest negative #Hx non obstructive CAD -Given aspirin in ED, continue Imdur and atorvastatin -Previously 60% stenosis of RCA in 2020 without any need for stenting -Troponins normal and patient does not nor did she ever have chest pain during any of this -If echo abnormal would consult cardiology, echo ordered -EKG with nonspecific T waves however this was similar to previous EKGs # Viral-like picture -Will obtain respiratory panel -Supportive care # Right sided back pain -May be musculoskeletal in nature as UA not infectious and CT abdomen negative #Depression/anxiety -Continue home medications #GERD -Continue PPI #Tobacco use -Advise cessation -Nicotine replacement available if desired #DVT ppx: SCDs Daphne Hernández MD Charges/Coding Visit Charges Inpatient E&M: 62165 Init Hosp L2
--- NOTE | 2024-12-26 15:44 | ECHOD_ITS ---
Reason For Study Reason For Study: Syncope Procedure This was a 2D Doppler, Color Flow transthoracic echocardiogram. Exam performed portable in ICU/CCU. Left Ventricle Normal LV size. Mild concentric left ventricular hypertrophy. Left ventricular systolic function is normal. The left ventricular ejection fraction is 60 %. Stage 1 diastolic dysfunction. Right Ventricle Normal right ventricle. Atria The left and right atria are normal. Mitral Valve Trivial mitral valve insufficiency. Tricuspid Valve Normal tricuspid valve. Aortic Valve Trisinus/trileaflet aortic valve. Pulmonic Valve The pulmonic valve is not well visualized. Great Vessels Normal sized aortic root. Pericardium/Pleural No pericardial effusion. MMode/2D Measurements & Calculations LVIDd: 4.2 cm IVSd: 1.2 cm Ao root diam: 2.7 cm LVIDs: 2.7 cm LVPWd: 1.2 cm RVDd: 3.3 cm FS: 35.1 % LAV(MOD-bp): 32.1 ml LVAd ap4: 23.8 cm2 LVAd ap2: 28.6 cm2 LAV(MOD-bp) Indexed: 18.0 ml/m2 LVLd ap4: 8.2 cm LVLd ap2: 8.3 cm LAV(MOD-sp2): 30.6 ml EDV(MOD-sp4): 56.6 ml EDV(MOD-sp2): 83.4 ml LAV(MOD-sp4): 33.8 ml EDV(sp4-el): 58.6 ml EDV(sp2-el): 83.4 ml LVAs ap4: 14.1 cm2 LVAs ap2: 17.3 cm2 LVLs ap4: 7.3 cm LVLs ap2: 7.4 cm ESV(MOD-sp4): 23.3 ml ESV(MOD-sp2): 35.2 ml ESV(sp4-el): 23.0 ml ESV(sp2-el): 34.3 ml EF(MOD-sp4): 58.8 % EF(MOD-sp2): 57.8 % EF(sp4-el): 60.7 % SV(MOD-sp4): 33.3 ml SV(MOD-sp2): 48.2 ml SV(sp4-el): 35.5 ml SI(MOD-sp4): 18.7 ml/m2 SI(MOD-sp2): 27.0 ml/m2 LA A4 area: 15.0 cm2 LA dimension(2D): 3.8 cm RA A4 area: 11.5 cm2 TAPSE: 1.8 cm Time Measurements MV dec time: 0.24 sec Doppler Measurements & Calculations MV E max tim: 78.2 cm/sec Lat Peak E' Tim: 11.2 cm/sec Med Peak E' Tim: 7.6 cm/sec MV A max tim: 81.4 cm/sec E/E' lat: 7.0 E/E' med: 10.3 MV E/A: 0.96 Ao V2 max: 139.0 cm/sec LV V1 max: 120.4 cm/sec MV dec slope: 321.2 cm/sec2 Ao max P.7 mmHg LV V1 max P.8 mmHg Ao V2 mean: 88.5 cm/sec LV V1 mean P.9 mmHg Ao mean P.7 mmHg LV V1 mean: 79.9 cm/sec Ao V2 VTI: 27.5 cm LV V1 VTI: 24.0 cm AV (velocity ratio): 0.87 PA V2 max: 85.4 cm/sec ECHO/Echo Complete Interpretation Summary Mild concentric left ventricular hypertrophy. The left ventricular ejection fraction is 60 %. Stage 1 diastolic dysfunction. Ordering Physician: Daphne Hernández Referring Physician: Martinez Cohen Performed By: Sharon Queen RDCS
[2024-12-26 16:35] LABS: Amphetamine Urine NEGATIVE (<1000 ng/mL); Barbiturate Urine VISTA NEGATIVE (< 200 ng/mL); Benzodiazepine Urine VISTA NEGATIVE (< 200 ng/mL); Cocaine Urine VISTA NEGATIVE (< 300 ng/mL); Ecstacy Urine VISTA NEGATIVE (< 500 ng/mL); Methadone Urine VISTA NEGATIVE (< 300 ng/mL); Opiates Urine NEGATIVE (< 300 ng/mL); PCP Urine NEGATIVE (< 25 ng/mL); THC Urine VISTA POSITIVE (< 50 ng/mL); Vista UDS pH Range 6
[2024-12-26] MEDS: 0.9% Normal Saline (1000mL) 1,000 ML 75 ML IV (19:41)
--- NOTE | 2024-12-26 20:22 | CM.ED ---
Social Work Reason for visit: Code Blue SW responded to code blue that was called in triage. Patients fiance was with patient, SW provided emotional support thru response. Patient was quickly revived and taken to ED room. No further needs identified at this time. Gaby Osuna, [employer], INFANTRY OFFICER
[2024-12-26] MEDS: Magnesium Sulfate 4gm/100mL 4 GM/100 ML IV.SOLN. IV (20:28)
[2024-12-26] MEDS: Atorvastatin Calcium 40 MG Tablet PO (21:08)
[2024-12-26] MEDS: Pantoprazole Sodium 40 MG Tablet PO (21:08)
[2024-12-26] MEDS: Gabapentin 400 MG Capsule PO (21:11)
[2024-12-26] MEDS: MELATONIN 3 MG TABLET PO (21:11)
[2024-12-27 00:16] VITALS: BP 129/67; PULSE 66; RESP 18; TEMP 36.6; O2SAT 97
[2024-12-27 00:26] VITALS: BP 131/71; PULSE 67; RESP 18; TEMP 36.8; O2SAT 97
[2024-12-27 04:16] VITALS: BP 134/67; PULSE 62; RESP 16; TEMP 36.6; O2SAT 98
[2024-12-27 04:55] VITALS: BMI 29.4
--- NOTE | 2024-12-27 07:41 | PN.HOSP_ITS ---
Reason for Visit Reason for Visit: Diagnoses Unspecified coma (12/26/24) Objective Data Objective Data Vital Signs: Vital Signs Temp Pulse Resp BP Pulse Ox O2 Del Method 97.9 F 62 16 134/67 H 98 Room Air 12/27/24 04:16 12/27/24 04:16 12/27/24 04:16 12/27/24 04:16 12/27/24 04:16 12/27/24 04:16 Oxygen Delivery Method Room Air Weight: 166 lb 3.657 oz Body Mass Index (BMI) 29.4 Intake & Output: Intake and Output for Last 24 Hours 12/25/24 12/26/24 12/27/24 23:59 23:59 23:59 Intake Total 1000 / 1240 340 / 340 Balance 1000 / 1240 340 / 340 Lab / Micro Data 12/27/24 06:49 12/27/24 06:49 Labs: Laboratory Results - last 24 hr 12/26/24 11:25: WBC 13.1 H, RBC 4.42, Hgb 12.0, Hct 39.1, MCV 88.5, MCH 27.1, M CHC 30.7 L, RDW Std Deviation 58.4 H, RDW Coeff of Clark 18.0 H, Plt Count 377, MPV 9.8, Immature Gran % (Auto) 1.200 H, Neut % (Auto) 43.3 L, Lymph % (Auto) 42.1 H, [place] % (Auto) 9.7, Eos % (Auto) 3.2, Baso % (Auto) 0.5, Absolute Neuts (auto) 5.7, Absolute Lymphs (auto) 5.53 H, Nucleated RBC % 0, Sodium 138, Potassium 3.5, Chloride 106, Carbon Dioxide 24.0, Anion Gap 8, BUN 12, Creatinine 0.90, Estim Creat Clear Calc 73.54, Est GFR (MDRD) Af Amer 85, Est GFR (MDRD) Non-Af 70, BUN/Creatinine Ratio 13.3, Glucose 116 H, Calcium 8.9, Magnesium 1.8, Total Bilirubin 0.10 L, Direct Bilirubin 0.07, AST 34, ALT 58 H, Alkaline Phosphatase 160 H, Troponin I High Sens 7, Total Protein 7.0, Albumin 3.0 L, Globulin 4.0, TSH 0.738 12/26/24 13:05: Urine Color Yellow, Urine Clarity Sl. Cloudy, Urine pH 6.5, Ur Specific [place] 1.010, Urine Protein 15 H, Urine Glucose (UA) Normal, Urine Ketones Negative, Urine Occult Blood 10 H, Urine Nitrite Negative, Urine Bilirubin Negative, Urine Urobilinogen Normal, Ur Leukocyte Esterase Negative, Urine RBC 0-5 SEEN, Urine WBC 0 SEEN, Ur Squamous Epith Cells 0-5 SEEN, Urine Bacteria 0 SEEN, Urine Mucus 0 SEEN 12/26/24 13:44: Troponin I High Sens 8 12/26/24 16:07: Urine Opiates Screen NEGATIVE, Urine Methadone Screen NEGATIVE, Ur Barbiturates Screen NEGATIVE, Ur Phencyclidine Scrn NEGATIVE, Ur Amphetamines Screen NEGATIVE, MDMA (Ecstasy) Screen NEGATIVE, U Benzodiazepines Scrn NEGATIVE, Urine Cocaine Screen NEGATIVE, U Cannabinoids Screen POSITIVE H, Ur Drug Screen Comment Micro: Microbiology 12/26/24 23:15 Mucosa - Nasopharyngeal Respiratory Panel (PCR) - Final 12/26/24 11:35 Mucosa - Nose SARS-CoV-2, Influenza & RSV (PCR) - Final Radiography Diagnostic Testing: Radiology Impression Chest/Abdomen/Pelvis CTA 12/26/24 11:51 IMPRESSION: 1.4 cm noncalcified nodule in the lateral aspect of the left lung apex. Emphysema with bullous formation worse in the right hemithorax. Hepatomegaly and diffuse fatty infiltration of the liver. Status post cholecystectomy. One or more dose reduction techniques were used (e.g., Automated exposure control, adjustment of the mA and/or kV according to patient size, use of iterative reconstruction technique). Reading Location: [facility] 12/26/24 14:47 IMPRESSION: 1. No acute intracranial findings. 2. Ethmoid, bilateral maxillary, and sphenoid sinus inflammation. Reading Location: [facility] Rhythm Strip Rhythm Strip: Sinus Rhythm Rate: 52 Ectopy: None Physical Exam Narrative Seen and examined Patient is stated that she passed out in the past when she was at the age of 16 when she was started on control pills. She also had 3 heart cath last 1 was in March 2021. Was reported distal RCA 60% stenosis, normal LV systolic function with mild anterior hypokinesis, EF 45% by LV gram Mild soreness over chest from chest compression Physical General: Alert, Oriented x3, Cooperative HEENT: Atraumatic, PERRLA, EOMI, Normocephalic Oral: No Gingival or Mucosal Lesions/ Ulcerations Neck: Supple, No JVD, Negative Carotid Bruits Chest wall/Lungs: Air entry diminished in bilateral lung bases. No crepitation/rhonchi Cardiovascular: Normal sinus rhythm, Normal S1, Normal S2, No M/G/R Abdomen: Bowel Sounds Present, Soft, Non Tender, Non-Distended : No dysuria. No renal angle tenderness. No suprapubic tenderness. Extremities: No edema, Capillary Refill Less than 3 Seconds Skin: No rashes, No breakdown Musculoskeletal: No Tenderness to Palpation of Joints or Extremities Neurological: Cranial nerves II-XII grossly intact, DTR 2+/4. No acute focal neurological deficit. Psych/Mental Status: Normal Affect, Appropriate. Assessment & Plan Assessment/Plan (1) Loss of consciousness: PLAN: Plan 49-year-old female was admitted with episode of unconsciousness and unresponsiveness initially. She was having flulike symptoms for couple days, flank pain and felt like lightheaded/going to pass out before coming to ED. When the nurse tried to get vitals in triage, she felt like laying down and then became unresponsive, did not feel pulse therefore started chest compression. She also had agonal breathing. After about 10 to 15 seconds of chest compressions she woke up. CODE BLUE was called. # Loss of consciousness -It is possible patient might have vasovagal episode with hypotension and bradycardia, with normal troponins x 2 -Will admit to telemetry -Given recent event we will hold off on Ortho stats at this time and give IV fluids -Will check echocardiogram, if any changes in LV would consult cardiology -No history of stents, previously had 60% RCA stenosis in 2020 but without need for stenting at that time -Patient with no chest pain, normal troponins, EKG similar to previous, heart rate 52, on telemetry has not been noted to have any kind of arrhythmias -Additionally CTA of the chest negative #Hx non obstructive CAD -Given aspirin in ED, continue Imdur and atorvastatin -Previously 60% stenosis of RCA in 2020 without any need for stenting -Troponins normal and patient does not nor did she ever have chest pain during any of this -If echo abnormal would consult cardiology, echo ordered -EKG with nonspecific T waves however this was similar to previous EKGs # Viral-like picture -Will obtain respiratory panel -Supportive care # Right sided back pain -May be musculoskeletal in nature as UA not infectious and CT abdomen negative #Depression/anxiety -Continue home medications #GERD -Continue PPI #Tobacco use -Advise cessation -Nicotine replacement available if desired #DVT ppx: SCDs Daphne Hernández MD
[2024-12-27 07:46] LABS: Absolute Lymphocyte Count 3.85 X10^3/uL (0.83-4.51); Absolute Neutrophil Count 4.8 X10^3/uL (2.0-7.7); Basophil# 0.07 X10^3/uL; Basophil% 0.7 % (0-1); Eosinophil# 0.39 X10^3/uL; Eosinophils% 3.9 % (0-5); Hematocrit 41.1 % (37-47); Hemoglobin 12.7 g/dL (12.0-15.0); Lymphocyte # 3.85 X10^3/ul (0.83-4.51); Lymphocyte % 38.8 % (19-41); Mean Corp Hgb Conc 30.9 g/dL (32-36); Mean Corpuscular Hgb 27.1 pg (27.0-32.0); Mean Corpuscular Volume 87.8 fL (81-99); Mean Platelet Vol. 10.2 fl (6.2-12.0); Monocyte# 0.74 X10^3/uL; Monocyte% 7.5 % (0-10); NRBC Flagged by Analyzer 0 % (0-5); Neutrophil # 4.76 X10^3/uL (2.7-7.7); Neutrophil % 48.1 % (47-70); Platelet Count 380 K/mm3 (150-450); RBC Distribution Width SD 57.9 fl (35.1-43.9); Red Blood Count 4.68 M/mm3 (4.2-5.4); White Blood Count 9.9 K/mm3 (4.4-11.0)
[2024-12-27 08:38] VITALS: BP 126/69; PULSE 66; RESP 14; TEMP 36.4; O2SAT 98
[2024-12-27 08:38] LABS: Anion Gap 4 (5-15); BUN 12 mg/dL (7-18); BUN/Creat Ratio 17.4 RATIO (10-20); Calcium,Total 8.6 mg/dL (8.5-10.1); Chloride 109 mmol/L (98-107); Creatinine, Serum 0.69 mg/dL (0.55-1.02); EST Glomerular Filtration Rate 96 mL/min (>60); Est Glom Filt Rate - Afr Amer 116 mL/min (>60); Estimated Creatinine Clearance 96.96 ml/min; Glucose 92 mg/dL (74-106); Potassium 4.1 mmol/L (3.5-5.1); Sodium Level 140 mmol/L (136-145); Thyroid Stim Hormone (TSH) 0.828 uIU/mL (0.358-3.740)
[2024-12-27] MEDS: Venlafaxine XR 37.5 MG Capsule PO (08:40)
[2024-12-27] MEDS: Loratadine 10 MG Tablet PO (08:40)
[2024-12-27] MEDS: Venlafaxine XR 150 MG Capsule PO (08:40)
[2024-12-27] MEDS: Aspirin 81 MG TAB.CHEW PO (08:40)
[2024-12-27] MEDS: Isosorbide Mononitrate 30 MG Tablet PO (08:40)
[2024-12-27] MEDS: Pantoprazole Sodium 40 MG Tablet PO (08:40)
[2024-12-27] MEDS: Acetaminophen 325 MG Tablet 650 MG PO (08:40)
--- NOTE | 2024-12-27 10:46 | CASEMGMT ---
DULCE SOTELO Assessment Face to Face with patient for initial transition planning/care coordination assessment. DULCE SOTELO introduced self and role at [facility], pt voices understanding. Pt is A&Ox4 and is resting comfortably in bed and is calm. Care providers, pharmacy, and demographics verified. Admitting dx: Collapse with suspected Syncope. See H&P. BARBARA Strata: 3 PCP: Martinez Cohen Specialists: Denies Preferred Pharmacy: [facility] Insurance: [employer] Prescription Benefit: Yes LNOK: Caitlyn Howard (Mom), Mau Cordero (Son), Pt also has a SO Living Arrangements: Pt states that she is currently living at [facility] in [place] with her SO and that it is on the ground level with a flat entrance ADLs/IADLs: Ind Transportation: Self, mother, denies concerns DME: Access to a cane, knee scooter, and BP Machine HHC/SNF: Denies Hx or needs Pt?s goal: Home Plan: Home with pt SO, no additional needs. 6-Click score is 24. Pt denies the need for OP Tx or CCN and states that she feels safe returning to [facility] with her SO once she is medically ready and denies further questions or concerns at this time. Radha Worthington RN, CM
[2024-12-27] MEDS: 0.9% Normal Saline (1000mL) 1,000 ML 75 ML IV (10:54)
--- NOTE | 2024-12-27 11:52 | PCM.DC ---
Discharge Instructions Diet Discharge Diet: No restrictions DC O2, CPAP, BIPAP needs Home O2 Discharge instructions: No Dressing / Incision Discharge Activity: Return to Normal Activity Weight Bearing Status: Weight bearing as tolerated Dressing / Incision Call your doctor if you observe: Fever of 101 or Higher, Coldness, Increased Pain, Numbness or Tingling, Change in Color, Inability to urinate, Inability to have a bowel movement, Shortness of breath, Dizziness, Fainting spells, Swelling in the ankles, Chest pain, Prolonged hiccupping, Increased palpitations (irregular heartbeat) and Calf discomfort Follow Up Care When: IN 2 WEEKS Test Results: Test results from this visit will be discussed in further detail at your follow-up appointment, if applicable. Discharge Plan Admission Admit Date/Time: 12/26/24 15:28 Primary Reason for Your Visit: Hypotension/syncope. Attending Provider: Singh Tenorio Primary Care Provider: Martinez Cohen Consulting Providers: Daphne Hernández Discharge Orders/Prescriptions Prescriptions: Continued pantoprazole 40 MG tablet 40 mg PO BID Patient Comments: ACID REFLUX/GERD cetirizine 10 MG tablet 10 mg PO DAILY gabapentin 400 MG capsule 400 mg PO TID venlafaxine 150 MG tablet extended release 24hr 150 mg PO DAILY albuterol sulfate 90 mcg/actuation HFA aerosol inhaler 2 puff INHALATION Q4H PRN PRN (Reason: wheezing) isosorbide mononitrate 30 mg tablet extended release 24 hr 30 mg PO DAILY Qty: 30 0RF Patient Comments: has not been taking regularly Rx Instructions: Hold for SBP less than 130 mmHg venlafaxine 37.5 mg capsule,extended release 24hr 37.5 mg PO DAILY aspirin 81 mg capsule 81 mg PO DAILY Qty: 1 0RF atorvastatin 40 mg tablet 40 mg PO QHS Qty: 30 0RF Referrals / Follow Up: Martinez Cohen MD [Primary Care Provider] - Within 2 Weeks Disposition Disposition (needs filled in before D/C Order can be placed): Home, Self Care
[2024-12-27 11:56] VITALS: BP 117/81; BP 121/85; BP 124/77; PULSE 56; PULSE 62; PULSE 64
--- NOTE | 2024-12-27 13:17 | DS.PCM_ITS ---
Providers Date of Admission: 12/26/24 Date of Discharge: 12/27/24 Primary Care Physician: Dr. Martinez Cohen MD Reason For Visit: COLLAPSE WITH SUSPECTED SYNCOMPE Diagnosis Discharge Diagnosis (1) Loss of consciousness: Status: Acute Code(s): R40.20 - Unspecified coma Plan 49-year-old female was admitted with episode of unconsciousness and unresponsiveness initially. She was having flulike symptoms for couple days, flank pain and felt like lightheaded/going to pass out before coming to ED. When the nurse tried to get vitals in triage, she felt like laying down and then became unresponsive, did not feel pulse therefore started chest compression. She also had agonal breathing. After about 10 to 15 seconds of chest compressions she woke up. CODE BLUE was called. # Loss of consciousness most likely due to vasovagal syncope from hypotension and bradycardia: Patient is being admitted in ICU as PCU status. Serial troponins negative therefore ACS ruled out -2D echo was reviewed. Mild concentric LVH, stage I diastolic dysfunction. EF 60%. Trivial MR but no significant valvular abnormality. Discussed with managing broker. Patient is being discharged. Orthostatic vitals were negative. Patient does not have chest pain or shortness of breath. EKG reviewed. No acute ST-T changes -Additionally CTA of the chest negative 2D echo 12/26/2024 Interpretation Summary Mild concentric left ventricular hypertrophy. The left ventricular ejection fraction is 60 %. Stage 1 diastolic dysfunction. #Hx non obstructive CAD -Given aspirin in ED, continue Imdur and atorvastatin -Previously 60% stenosis of RCA in 2020 without any need for stenting -Troponins normal and patient does not nor did she ever have chest pain during any of this -If echo abnormal would consult cardiology, echo ordered -EKG with nonspecific T waves however this was similar to previous EKGs Triple PCR for SARS-CoV-2, flu and RSV are negative. Respiratory panel negative., Common respiratory viral pathogens were ruled out. # Right sided back pain -May be musculoskeletal in nature as UA not infectious and CT abdomen negative #Depression/anxiety -Continue home medications #GERD -Continue PPI #Tobacco use -Advise cessation -Nicotine replacement available if desired #DVT ppx: SCDs Discharge medication reconciliation done. Discharge follow-up instructions completed. Discharge process discussed with the patient and all questions were answered to patient's satisfaction. Follow with PCP in 1 to 2 weeks Total time spent, exact 35 minutes on discharge meds reconciliation, examination, coordination of care with nurses and ancillary staff, review of imaging and blood test and discussion with the patient on follow-up instructions. Medications at Discharge Home Medications pantoprazole 40 mg tablet,delayed release 40 mg PO BID gerd 04/09/14 cetirizine 10 mg tablet 10 mg PO DAILY allergies 04/14/20 gabapentin 400 mg capsule 400 mg PO TID nerve pain 06/17/20 venlafaxine 150 mg tablet,extended release 24 hr 150 mg PO DAILY depression 06/17/20 venlafaxine 37.5 mg capsule,extended release 24 hr 37.5 mg PO DAILY 09/12/24 aspirin 81 mg capsule 81 mg PO DAILY #1 cap 10/03/24 atorvastatin 40 mg tablet 40 mg PO QHS #30 tabs 10/03/24 albuterol sulfate 90 mcg/actuation aerosol inhaler 2 puff inhalation Q4H PRN PRN wheezing 12/26/24 isosorbide mononitrate 30 mg tablet,extended release 24 hr 30 mg PO DAILY #30 tabs 12/27/24 Physical Exam Narrative Seen and examined Patient is stated that she passed out in the past when she was at the age of 16 when she was started on control pills. She also had 3 heart cath last 1 was in March 2021. Was reported distal RCA 60% stenosis, normal LV systolic function with mild anterior hypokinesis, EF 45% by LV gram Mild soreness over chest from chest compression Physical General: Alert, Oriented x3, Cooperative HEENT: Atraumatic, PERRLA, EOMI, Normocephalic Oral: No Gingival or Mucosal Lesions/ Ulcerations Neck: Supple, No JVD, Negative Carotid Bruits Chest wall/Lungs: Air entry diminished in bilateral lung bases. No crepitation/rhonchi Cardiovascular: Normal sinus rhythm, Normal S1, Normal S2, No M/G/R Abdomen: Bowel Sounds Present, Soft, Non Tender, Non-Distended : No dysuria. No renal angle tenderness. No suprapubic tenderness. Extremities: No edema, Capillary Refill Less than 3 Seconds Skin: No rashes, No breakdown Musculoskeletal: No Tenderness to Palpation of Joints or Extremities Neurological: Cranial nerves II-XII grossly intact, DTR 2+/4. No acute focal neurological deficit. Psych/Mental Status: Normal Affect, Appropriate. Weight / BMI Weight Weight: 166 lb 3.657 oz Body Mass Index (BMI) 29.4 ABG / Lab / Microbiology Data 12/27/24 06:49 12/27/24 06:49 Laboratory: Laboratory Results - last 24 hr 12/26/24 13:05: Urine Color Yellow, Urine Clarity Sl. Cloudy, Urine pH 6.5, Ur Specific [place] 1.010, Urine Protein 15 H, Urine Glucose (UA) Normal, Urine Ketones Negative, Urine Occult Blood 10 H, Urine Nitrite Negative, Urine Bilirubin Negative, Urine Urobilinogen Normal, Ur Leukocyte Esterase Negative, Urine RBC 0-5 SEEN, Urine WBC 0 SEEN, Ur Squamous Epith Cells 0-5 SEEN, Urine Bacteria 0 SEEN, Urine Mucus 0 SEEN 12/26/24 13:44: Troponin I High Sens 8 12/26/24 16:07: Urine Opiates Screen NEGATIVE, Urine Methadone Screen NEGATIVE, Ur Barbiturates Screen NEGATIVE, Ur Phencyclidine Scrn NEGATIVE, Ur Amphetamines Screen NEGATIVE, MDMA (Ecstasy) Screen NEGATIVE, U Benzodiazepines Scrn NEGATIVE, Urine Cocaine Screen NEGATIVE, U Cannabinoids Screen POSITIVE H, Ur Drug Screen Comment 12/27/24 06:49: WBC 9.9, RBC 4.68, Hgb 12.7, Hct 41.1, MCV 87.8, MCH 27.1, MCHC 30.9 L, RDW Std Deviation 57.9 H, RDW Coeff of [place] 18.0 H, Plt Count 380, MPV 10.2, Immature Gran % (Auto) 1.000 H, Neut % (Auto) 48.1, Lymph % (Auto) 38.8, [place] % (Auto) 7.5, Eos % (Auto) 3.9, Baso % (Auto) 0.7, Absolute Neuts (auto) 4.8, Absolute Lymphs (auto) 3.85, Nucleated RBC % 0, Sodium 140, Potassium 4.1, Chloride 109 H, Carbon Dioxide 27.0, Anion Gap 4 L, BUN 12, Creatinine 0.69, Estim Creat Clear Calc 96.96, Est GFR (MDRD) Af Amer 116, Est GFR (MDRD) Non-Af 96, BUN/Creatinine Ratio 17.4, Glucose 92, Calcium 8.6, TSH 0.828 Microbiology: Microbiology 12/26/24 23:15 Mucosa - Nasopharyngeal Respiratory Panel (PCR) - Final 12/26/24 11:35 Mucosa - Nose SARS-CoV-2, Influenza & RSV (PCR) - Final Radiography Diagnostic Testing: Radiology Impression Brain CT 12/26/24 14:47 IMPRESSION: 1. No acute intracranial findings. 2. Ethmoid, bilateral maxillary, and sphenoid sinus inflammation. Reading Location: [facility] Echocardiogram 12/26/24 15:44 Interpretation Summary Mild concentric left ventricular hypertrophy. The left ventricular ejection fraction is 60 %. Stage 1 diastolic dysfunction. Ordering Physician: Daphne Hernández Referring Physician: Martinez Cohen Performed By: Sharon Queen RDCS D/C Instructions Discharge Diet: No restrictions Weight Bearing Status: Weight bearing as tolerated Call your doctor if you observe: Fever of 101 or Higher, Coldness, Increased Pain, Numbness or Tingling, Change in Color, Inability to urinate, Inability to have a bowel movement, Shortness of breath, Dizziness, Fainting spells, Swelling in the ankles, Chest pain, Prolonged hiccupping, Increased palpitations (irregular heartbeat) and Calf discomfort DC O2, CPAP, BIPAP Needs Home O2 Discharge instructions: No When: IN 2 WEEKS Meaningful Use Info Meaningful Use Meaningful Use Diagnoses (Choose all that apply): None applicable Ischemic Stroke Statin Dosing Therapy Reference: STATIN DOSE THERAPY REFERENCE: * Patients > 75 years receive moderate or high dose statin therapy. * Patients 75 years or YOUNGER should receive HIGH intensity statin dose unless contraindicated. You will be required to document reason for non-treatment if statin daily dose does not meet guidelines. HIGH DOSE STATIN THERAPY DAILY Atorvastatin > than or = to 40 mg Rosuvastatin > than or = to 20 mg Amlodipine + Atorvastatin > than or = to 2.5/40 mg Ezetimibe + Simvastatin 10/80 mg Simvastatin 80mg Discharge Plan Admission Admit Date/Time: 12/26/24 15:28 Primary Reason for Your Visit: Hypotension/syncope. Attending Provider: Singh Tenorio Primary Care Provider: Martinez Cohen Consulting Providers: Daphne Hernández Discharge Orders/Prescriptions Prescriptions: Continued pantoprazole 40 MG tablet 40 mg PO BID Patient Comments: ACID REFLUX/GERD cetirizine 10 MG tablet 10 mg PO DAILY gabapentin 400 MG capsule 400 mg PO TID venlafaxine 150 MG tablet extended release 24hr 150 mg PO DAILY albuterol sulfate 90 mcg/actuation HFA aerosol inhaler 2 puff INHALATION Q4H PRN PRN (Reason: wheezing) isosorbide mononitrate 30 mg tablet extended release 24 hr 30 mg PO DAILY Qty: 30 0RF Patient Comments: has not been taking regularly Rx Instructions: Hold for SBP less than 130 mmHg venlafaxine 37.5 mg capsule,extended release 24hr 37.5 mg PO DAILY aspirin 81 mg capsule 81 mg PO DAILY Qty: 1 0RF atorvastatin 40 mg tablet 40 mg PO QHS Qty: 30 0RF Referrals / Follow Up: Martinez Cohen MD [Primary Care Provider] - Within 2 Weeks Disposition Disposition (needs filled in before D/C Order can be placed): Home, Self Care
== END 2024-12-27 13:37 | disposition home or self-care (01) | DRG 204 ==
LOC: ED 12:50 → ICU 17:30
PROVIDERS: Admitting Provider Internal Medicine; Emergency Provider Emergency Medicine; PCP Family Medicine; Visit Provider Internal Medicine
DX: R55 Syncope and collapse (principal); F12.90 Cannabis use, unspecified, uncomplicated; J44.9 Chronic obstructive pulmonary disease, unspecified; F32.A Depression, unspecified; I10 Essential (primary) hypertension; F17.210 Nicotine dependence, cigarettes, uncomplicated; I25.10 Atherosclerotic heart disease of native coronary artery without angina pectoris; K21.9 Gastro-esophageal reflux disease without esophagitis; M54.9 Dorsalgia, unspecified; F41.9 Anxiety disorder, unspecified; R00.1 Bradycardia, unspecified; I95.9 Hypotension, unspecified; Z98.51 Tubal ligation status
CPT/HCPCS: 36415; 70450; 71275; 74174; 80048; 80076; 80307; 81001; 83735; 84443; 84484; 85025; 87631; 87633; 93005; 93306; 99283; Q9967; A4216

== ENCOUNTER 2025-06-21 17:07 | Emergency (ER) | payer MEDICAID, SELFPAY ==
[2025-06-21] VITALS (7 sets, daily range): BP systolic 114–142; BP diastolic 59–80; PULSE 71–119; RESP 16–20; TEMP 36.7–37.2; O2SAT 96–100; BMI 29.3
[2025-06-21 18:53] LABS: Hematocrit 44.8 % (37-47); Hemoglobin 14.3 g/dL (12.0-15.0); Immature Granulocytes Count 0.100 X10^3/uL (0.0-0.0); Mean Corp Hgb Conc 31.9 g/dL (32-36); Mean Corpuscular Volume 90.9 fL (81-99); Mean Platelet Vol. 10.0 fl (6.2-12.0); NRBC Flagged by Analyzer 0 % (0-5); Platelet Count 447 K/mm3 (150-450); RBC Distribution Width CV 16.5 % (11.6-14.6); RBC Distribution Width SD 55.2 fl (35.1-43.9); Red Blood Count 4.93 M/mm3 (4.2-5.4); White Blood Count 13.4 K/mm3 (4.4-11.0)
--- NOTE | 2025-06-21 19:02 | CT_ITS ---
PROCEDURE: CT ABDOMEN/PELVIS W IV CONT ONLY 06/21/2025 REASON FOR EXAM: RIGHT-SIDED ABDOMINAL PAIN. PRIOR CHOLECYSTECTOMY TECHNIQUE: CT ABDOMEN/PELVIS W IV CONT ONLY. Coronal and Sagittal reconstruction series were provided. CONTRAST: Isovue 370 VOLUME: 94 mL One or more dose reduction techniques were used (e.g., Automated exposure control, adjustment of the mA and/or kV according to patient size, use of iterative reconstruction technique. RADIATION DOSE SUMMARY: DLP: 842.29 mGycm COMPARISON: Abdominal CT 12/26/2024. FINDINGS: Lung bases: Clear. Liver: No significant abnormality. Gallbladder: Surgically absent. Presumed postoperative prominence of the CBD and intrahepatic biliary ducts, stable from prior exams. No dilatation of the pancreatic duct. Spleen: Normal size and morphology. Small anterior splenule. Pancreas: Unremarkable. Adrenals: Unremarkable. Kidneys: Unremarkable. No urolithiasis or hydronephrosis. Bladder: Unremarkable. Reproductive Organs: Mildly lobulated uterus with multiple small presumed uterine fibroids. Small bilateral ovarian functional follicles/cysts. No adnexal mass. Bowel: No evidence of obstruction or active inflammatory process. Appendix is surgically absent. Lymph nodes: No enlarged abdominopelvic lymph nodes. Vasculature: Normal caliber abdominal aorta and IVC. Mild atherosclerotic calcifications. Peritoneum / Retroperitoneum: No ascites or free air. Bones: Unremarkable. CT/Abdomen/Pelvis W IV Cont ONLY IMPRESSION: 1. No acute or active inflammatory intra-abdominal pathology. 2. Multiple small presumed uterine fibroids. Reading Location: [id number]
[2025-06-21 19:03] LABS: Internal QC Validated? YES +Cl - CLEAR BKGD; Pregnancy, Serum, hCG Quali. NEGATIVE Negative; Record Kit Lot#, Serum Preg. 0000962302
--- NOTE | 2025-06-21 19:03 | ED.VIS.GI ---
HPI HPI - GI History of Present Illness Chief Complaint: Abd Pain Informant: patient Abdominal Pain/Flank Pain Onset: Days Context: Gradual Onset Timing: Intermittent Quality: Aching Location: RUQ and RLQ Current Severity: Moderate Maximum Severity: Moderate Worsened by: Nothing Relieved by: Nothing Nausea/Vomiting/Emesis GI Symptom: Negative for Nausea or Vomiting Diarrhea/Melena/Hematochezia GI Symptom: Positive for Diarrhea (Several days ago resolved.) Stool Quality: Positive for Watery Severity: Mild Associated Symptoms Associated Symptoms: Negative for Dysuria, Frequency, Hematuria or Urgency Narrative Narrative: 50-year-old female complaining of right-sided abdominal pain. States she had significant mount of diarrhea about 4 days ago and developed this pain. She has had a prior appendectomy and cholecystectomy, tubal ligation exploratory laparotomy. CT said pain like this before not quite as bad and never come up with a specific cause. Was seen by her primary care physician this week and has an appointment to see a [facility] general surgeon locally on Tuesday. Denies any fever. No dysuria. Prior similar symptoms: Yes Recent Illness/Hospitalization: No PFSH PFSH Medical History Anxiety Depression Smoker Emphysema lung Essential (primary) hypertension Atherosclerotic heart disease of knik coronary artery without angina pectoris Stomach ulcer Heart disease Shoulder pain Hemorrhoids Lung disease Arthritis Home Medications ?Medication ?Instructions ?Recorded ?Last Taken ?Type pantoprazole 40 mg tablet,delayed 40 mg PO BID gerd 04/09/14 06/14/23 History release cetirizine 10 mg tablet 10 mg PO DAILY allergies 04/14/20 06/14/23 History gabapentin 400 mg capsule 400 mg PO TID nerve pain 06/17/20 06/17/20 History venlafaxine 150 mg tablet,extended 150 mg PO DAILY depression 06/17/20 06/14/23 History release 24 hr venlafaxine 37.5 mg 50 mg PO DAILY 09/12/24 Unknown History capsule,extended release 24 hr albuterol sulfate 90 mcg/actuation 2 puff inhalation Q4H PRN PRN 12/26/24 Unknown History aerosol inhaler wheezing Allergy/AdvReac Type Severity Reaction Status Date / Time doxycycline Allergy Unknown Verified 06/21/25 17:11 erythromycin base Allergy Chest Verified 06/21/25 17:11 (Erythromycin Base) tightness Penicillins Allergy Unknown Verified 06/21/25 17:11 tramadol HCl (From Ultram) Allergy Swelling Verified 06/21/25 17:11 cefdinir (From Omnicef) AdvReac Other Verified 06/21/25 17:11 risperidone (From Risperdal) AdvReac Unknown Verified 06/21/25 17:11 valacyclovir HCl (From AdvReac Nausea Verified 06/21/25 17:11 Valtrex) Family History Other Arthritis Cancer Diabetes Heart disease Stomach ulcer Surgical History History of cholecystectomy Hx of tubal ligation Hx of nasal septoplasty History of herniorrhaphy Hx of appendectomy History of left heart catheterization (03/16/21) History of ankle surgery Social History Smoking Status: Heavy Smoker (>10/day) substance use type: marijuana and other details: Smokes marijuana, ingests CBD Gummies, but no other substance or IVDU ROS ROS ED ROS Narrative Abdominal pain. Recent diarrhea resolved. Constitutional Constitutional ED: Denies chills or fever(s) ENT ENT ED: Denies ear pain Cardiovascular Cardiovascular: Denies chest pain Respiratory/Chest Respiratory/Chest: Denies cough or dyspnea Gastrointestinal Gastrointestinal: Reports abdominal pain and diarrhea; Denies constipation, melena, nausea or vomiting Genitourinary Genitourinary ED: Denies dysuria or hematuria Musculoskeletal Musculoskeletal: Denies arthralgias Integumentary Denies abscess Neurologic Neurologic: Denies headache(s) Psychiatric Psychiatric: Denies anxiety Endocrine Endocrinology: Denies polydipsia Hematologic/Lymphatic Hematologic/Lymphatic: Denies easy bleeding Allergic/Immunologic Allergic/Immunologic ED: Denies mouth swelling, tongue swelling or urticaria EXAM Physical Exam Narrative Exam Narrative: 50-year-old female sitting upright in bed. Vital signs are stable afebrile. Patient does not look septic toxic she is in no acute distress. H EENT exam pupils round react to light. Moist mucous membranes. Neck nontender no lymphadenopathy. Lungs clear to auscultation bilaterally. Heart regular rhythm rate about 90 no murmur. Chest wall ribs nontender. Abdomen soft nondistended normal bowel sounds without peritoneal signs. No pulsatile mass. Right upper and right lower quadrant Tenderness is mild. There is no obstruction. No pulsatile mass. No signs of trauma. Left side of the abdomen upper and lower is nontender. Moving all 4 extremities. Nontender no edema. Back nontender. Neurologically she is awake and alert. Answering questions and following commands. Const Vital Signs: 06/21/25 17:08 06/21/25 17:11 06/21/25 18:56 Temperature 98.3 F 98.3 F 98.9 F Temperature Source Oral Oral Oral Pulse Rate 119 H 119 H 87 Respiratory Rate 18 20 H 18 Blood Pressure 129/72 H 129/72 H 114/80 Blood Pressure Mean 91 91 91 Pulse Ox 98 98 100 Oxygen Delivery Method Room Air Room Air Room Air 06/21/25 19:00 06/21/25 20:00 06/21/25 21:00 Temperature 98.9 F 98.6 F 98.6 F Temperature Source Oral Oral Oral Pulse Rate 71 76 80 Respiratory Rate 18 18 20 H Blood Pressure 134/80 H 142/80 H 117/63 Blood Pressure Mean 98 100 81 Pulse Ox 99 96 98 Oxygen Delivery Method Room Air Room Air Room Air Positive well nourished and well developed; Negative for cachectic, contractures or unkempt General Appearance ED: well developed and NAD; Negative for unkempt, cachectic, contractures or pallor Nutritional Appearance: Negative for cachectic HEENT Reports moist mucous membranes normocephalic and atraumatic Eyes PERRL and EOMs intact bilaterally Neck no lymphadenopathy, supple and no JVD General: Negative for tenderness Resp normal respiratory effort and clear to auscultation bilaterally Cardio regular rate, regular rhythm, S1 normal heart sound, S2 normal heart sound and no murmurs GI non-distended and no masses; Negative for non-tender GI Narrative: Mild tenderness right upper right lower quadrant. No hernia. No mass. No obstruction. No pulsatile mass. No peritoneal signs. Auscultation: normoactive bowel sounds Palpation: soft and tender; Negative for guarding, rigid, hepatomegaly, splenomegaly, hernia, mass, pulsatile mass or rebound tenderness present Back/Spine no CVA tenderness Extremity full ROM General Extremety ED: Negative for edema or tenderness General Extremity: Negative for edema Neuro CN's II-XII intact bilaterally and moves all extremities Sensorium / Orientation: alert, oriented to person, oriented to place and oriented to time; Negative for orientation impaired Motor Exam: strength 5/5 throughout Psych mental status grossly normal and thought process normal Appearance: Negative for unkempt Skin no wounds General Skin Exam: Negative for jaundice or pallor Lesions: no lesions Rashes: no rashes Trauma: Negative for abrasion MDM MDM MDM Narrative Medical decision making narrative: 50-year-old female prior cholecystectomy and appendectomy complaining of right-sided abdominal pain only mild tenderness show received morphine and Zofran and Toradol for pain. CAT scan and labs are pending. Repeat exam patient doing well at 8:45 PM. Abdomen is benign. She requested additional pain medication but she will be given 6 mg more morphine. We are awaiting her CAT scan results. Her labs are unremarkable. She and I went over her lab test. Patient is doing well on repeat exam at 10:04 PM. She will be discharged home with outpatient follow-up. Abdominal pain uncertain etiology. We went over her lab test and CAT scan. History & Record Review Discussion w/independent historian: Patient Additional record(s) reviewed:: Prior inpatient record, Prior outpatient record, Prior ED visit and Prior labs Lab Data Attestation: I reviewed the patient's lab results. Lab results narrative: CBC shows a white count 13.4. H&H 14 and 44. Platelets 447. Serum test negative. UA is negative. No nitrates. No white or red cells. No bacteria. Electrolytes unremarkable gap 12. Normal BUN, creatinine. Glucose 89. Liver enzymes unremarkable. Lipase is normal. Labs: Laboratory Results - last 24 hr 06/21/25 06/21/25 18:41 19:00 WBC 13.4 H RBC 4.93 Hgb 14.3 Hct 44.8 MCV 90.9 MCH 29.0 MCHC 31.9 L RDW Std Deviation 55.2 H RDW Coeff of [place] 16.5 H Plt Count 447 MPV 10.0 Immature Gran % (Auto) 0.700 Neut % (Auto) 59.5 Lymph % (Auto) 28.1 [place] % (Auto) 7.6 Eos % (Auto) 3.3 Baso % (Auto) 0.8 Absolute Neuts (auto) 8.0 H Absolute Lymphs (auto) 3.75 Nucleated RBC % 0 Sodium 137 Potassium 4.3 Chloride 103 Carbon Dioxide 21.8 Anion Gap 12 BUN 8 Creatinine 0.70 Estim Creat Clear Calc 94.45 Est GFR (MDRD) Non-Af 106 BUN/Creatinine Ratio 11.3 Glucose 89 Calcium 9.5 Total Bilirubin < 0.15 AST 15 ALT 13 Alkaline Phosphatase 141 H Total Protein 7.4 Albumin 4.1 Globulin 3.3 Albumin/Globulin Ratio 1.2 Lipase 19 Serum , Qual NEGATIVE Urine Color Straw Urine Clarity Clear Urine pH 6.0 Ur Specific [place] 1.010 Urine Protein Negative Urine Glucose (UA) Normal Urine Ketones Negative Urine Occult Blood 50 H Urine Nitrite Negative Urine Bilirubin Negative Urine Urobilinogen Normal Ur Leukocyte Esterase Negative Urine RBC 0 SEEN Urine WBC 0-5 SEEN Ur Squamous Epith Cells 5-10 SEEN Urine Bacteria 0 SEEN Urine Mucus 0 SEEN Urine Trichomonas 0-5 SEEN Radiography Diagnostic Testing: Clinical Impression(s) from Imaging Studies Abdomen/Pelvis CT 06/21/25 19:02 IMPRESSION: 1. No acute or active inflammatory intra-abdominal pathology. 2. Multiple small presumed uterine fibroids. Reading Location: [id number] Discharge Plan Triage Chief Complaint: Abd Pain ED Provider: Joseph Tomas Dx/Rx/DC Orders Clinical Impression: Abdominal pain Instructions: ED Abdominal Pain Unkn Cause Fem Prescriptions: No Action pantoprazole 40 MG tablet 40 mg PO BID Patient Comments: ACID REFLUX/GERD cetirizine 10 MG tablet 10 mg PO DAILY gabapentin 400 MG capsule 400 mg PO TID venlafaxine 150 MG tablet extended release 24hr 150 mg PO DAILY albuterol sulfate 90 mcg/actuation HFA aerosol inhaler 2 puff INHALATION Q4H PRN PRN (Reason: wheezing) venlafaxine 37.5 mg capsule,extended release 24hr 50 mg PO DAILY Primary Care Provider: Martinez Cohen Referrals: Martinez Cohen MD [Primary Care Provider] - 3-5 Days if not improving Activity Restrictions/Additional Instructions: No specific cause for your abdominal pain. Your labs and CAT scan look good. Follow-up with your doctor if not improving. Motrin and Tylenol for pain. Return if increasing pain or feeling worse. Print Language: Brazilian Disposition Disposition: Home, Self Care
[2025-06-21 19:06] LABS: Mucous, Urine 0 SEEN /hpf (<or=2+); Red Blood Cells-Urine 0 SEEN /hpf (0-5)
[2025-06-21 19:09] LABS: Lipase 19 U/L (13-75)
[2025-06-21] MEDS: Ketorolac 30 MG/ML Syringe IV (19:11)
[2025-06-21 19:35] LABS: Color, Urine Straw (Yellow); Glucose, Dipstick Normal (Normal); Ketone-Dipstick Negative (Negative); Leukocyte Esterase-Dipstick Negative /ul (Negative); Nitrite-Dipstick Negative (Negative); Occult Blood-Urine 50 /ul (Negative); Protein-Dipstick Negative (Negative); Specific Gravity, Urine 1.010 (1.002-1.030); Urine Bilirubin Dipstick Negative (Negative)
[2025-06-21 20:18] LABS: AST(SGOT) 15 U/L (<=31); Alanine Aminotransfer ALT/SGPT 13 U/L (<=34); Albumin, Serum 4.1 g/dL (3.5-5.0); Alkaline Phosphatase 141 U/L (35-104); Anion Gap 12 (5-15); BUN 8 mg/dL (4-19); BUN/Creat Ratio 11.3 RATIO (10-20); Calcium,Total 9.5 mg/dL (7.6-11.0); Carbon Dioxide 21.8 mmol/L (21.0-32.0); Chloride 103 mmol/L (98-108); Estimated Creatinine Clearance 94.45 ml/min (50-250); Globulin 3.3 g/dL (2.2-4.2); Glucose 89 mg/dL (70-99); Potassium 4.3 mmol/L (3.3-5.1)
--- OUTSIDE RECORDS SUMMARY | 2025-06-21 20:19 | XMS RPT_ITS | CCD ---
Author Organization [facility] Care Team Providers [employer] Instructor Name Role Phone PCP, Unknown Unavailable Unavailable Sunny Cha Unavailable Unavailable Afshan Glass Unavailable Unavailabl MARTINEZ Guevara Unavailable Unavailable John Tarango Unavailable Unavailable John Tarango Unavailable Unavailable Martinez Garcia Unavailable Unavailable John Tarango Unavailable Unavailable Martinez Garcia Unavailable Unavailable John Tarango Unavailable Unavailable Martinez Garcia Unavailable Unavailable John Tarango Unavailable Unavailable No Family Physician given Unavailable Lydia Lane Unavailable Unavailable No Family Physician given Unavailable Lydia Lane Unavailable Unavailable No Family Physician given Unavailable Martinez Quintanilla MD Primary Care Provider Martinez Garcia MD Primary Care Provider Martinez Garcia MD Primary Care Provider ANYI BULLOCK Unavailable MARTINEZ GARCIA Primary Care Unavailable PROVIDER, UNKNOWN Admitting Unavailable PROVIDER, UNKNOWN Attending Unavailable PROVIDER, UNKNOWN Attending Unavailable MARTINEZ GARCIA Primary Care Unavailable PROVIDER, UNKNOWN Admitting Unavailable Martinez Garcia MD Primary Care Provider Joana DIRECTOR OF CARDIAC REHABILITATION.Francy COURTNEY Unavailable Suppaicha DIRECTOR OF CARDIAC REHABILITATION.Ravi COURTNEYAmita A Unavailable Suppaicha DIRECTOR OF CARDIAC REHABILITATION.SHERWIN Amita A Unavailable Martinez Garcia Primary Care Unavailable Irving Byers Attending Unavailable Angel Luis Bellamy Attending Unavailable Martinez Garcia Primary Care Unavailable Cam Fitzgerald Attending Unavailable Martinez Garcia Referring Unavailable Martinez Garcia Primary Care Unavailable Daphne Hernández Admitting Unavailable Martinez Garcia Primary Care Unavailable Daphne Hernández Consulting Unavailable Singh Tenorio Attending Unavailable Jona, Singh Consulting Unavailable Edgar, Daphne Attending Unavailable Lisa Marley Attending Unavailable Radha, Martinez Primary Care Unavailable Daphne Hernández Admitting Unavailable Daphne Hernández Consulting Unavailable Singh Tenorio Attending Unavailable Radha, Martinez Primary Care Unavailable Tremont, Martinez Primary Care Unavailable Angel Luis Bellamy Attending Unavailable GI BAILEY Attending Unavailable RADHA, MARTINEZ J Primary Care Unavailable SUPPAN, AMITA A Attending Unavailable RADHA, MARTINEZ J Primary Care Unavailable RADHA, MARTINEZ J Primary Care Unavailable KIM KEBEDE Attending Unavailable SUPPAN, AMITA A Attending Unavailable RADHA, MARTINEZ J Primary Care Unavailable SUPPAN, AMITA A Referring Unavailable RADHA, MARTINEZ J Primary Care Unavailable SUPPAN, AMITA A Referring Unavailable RADHA, MARTINEZ J Primary Care Unavailable RADHA, MARTINEZ J Primary Care Unavailable SUPPAN, AMITA A Attending Unavailable RADHA, MARTINEZ Prosper Primary Care Unavailable SUPPAN, AMITA A Referring Unavailable RADHA, MARTINEZ J Primary Care Unavailable SUPPAN, AMITA A Attending Unavailable RADHA, MARTINEZ J Primary Care Unavailable SUPPAN, AMITA A Referring Unavailable RADHA, MARTINEZ J Primary Care Unavailable DEVIN DONALD Attending Unavailable SUPPAN, AMITA A Referring Unavailable RADHA, MARTINEZ Cheng Primary Care Unavailable DEVIN DONALD Referring Unavailable RADHA, MARTINEZ J Primary Care Unavailable Allergies Allergy Classification Reported Allergen(s) Allergy Type Date of Onset Reaction(s) Facility Cephalosporins (antibiotic) (1 source) cefdinir Drug Allergy 07-11-20 14 [facility] U[facility]et [place] cyclobenzaprine (1 source) cyclobenzaprine Drug Allergy 10-08-20 11 Cough [place] Work Phone: Doxycycline (1 source) Doxycycline Drug Allergy 08-16-20 06 [place] Work Phone: guaiFENesin / Phenylephrine (1 source) guaiFENesin / Phenylephrine Drug Allergy 10-20-20 06 [place] Work Phone: Macrolides (antibiotic) (1 source) Erythromycin Drug Allergy 08-16-20 06 Shortness of Breath [place] Work Phone: Opioid Agonists (1 source) traMADol Drug Allergy 08-16-20 06 Swelling [place] Penicillins (antibiotic) (1 source) Penicillin G Drug Allergy 08-16-20 06 Intolerance [place] Work Phone: risperiDONE (1 source) risperiDONE Drug Allergy 08-16-20 06 Swelling [place] valACYclovir (1 source) valACYclovir Drug Allergy 08-16-20 06 Rash [place] (1 source) azithromycin Drug Allergy 09-29-20 [facility] Rep[facility] (5 sources) doxycycline; Translations: [DOXYCYCLINE] Drug Allergy 08-16-20 [facility] Repository (4 sources) Penicillins Drug allergy (disorder) 09-29-20 [facility], Unknown [facility] Rep[facility] (1 source) traMADol Drug Allergy 09-29-20 [facility] valAC[facility]cl[facility] Drug Allergy 09-29-20 [facility] (20 sources) cefdinir; Translations: [CEFDINIR] Drug Allergy 07-11-20 14 [facility] U[facility]et [place] (20 sources) cyclobenzaprine; Translations: [CYCLOBENZAPRINE HCL] Drug Allergy 10-08-20 11 Cough [place] Work Phone: (20 sources) Doxycycline Drug Allergy 08-16-20 06 Unknown [place] Work Phone: (20 sources) Erythromycin; Translations: [ERYTHROMYCIN] Drug Allergy 08-16-20 06 Shortness of Breath [place] Work Phone: (20 sources) guaiFENesin / Phenylephrine; Translations: [PHENYLEPHRINE-GUA IFENESIN] Drug Allergy 10-20-20 06 [place] Work Phone: (20 sources) Penicillin G; Translations: [PENICILLIN G] Drug Allergy 08-16-20 06 Intolerance [place] Work Phone: (20 sources) risperiDONE; Translations: [RISPERIDONE] Drug Allergy 08-16-20 06 Swelling [place] Work Phone: (20 sources) traMADol; Translations: [TRAMADOL HCL] Drug Allergy 08-16-20 06 Swelling [place] Work Phone: (20 sources) valACYclovir; Translations: [VALACYCLOVIR HCL] Drug Allergy 08-16-20 06 Rash [place] Work Phone: (6 sources) Penicillins Allergy to substance 10-08-20 Unknown [facility] (1 source) cefdinir Drug Allergy 12-26-19 [facility] Repository (1 source) Erythromycin Drug Allergy 12-26-19 [facility] Repository (1 source) risperiDONE Drug Allergy 12-26-19 [facility] Rep[facility] (1 source) traMADol Drug Allergy 12-26-19 [facility] Repository (1 source) valACYclovir Drug Allergy 12-26-19 [facility] Repository Medications Current Medications Medication Drug Class(es) Dates Sig (Normalized) Sig (Original) acetaminophen 500 mg oral tablet (20 sources) Start: 11-29-2022 take 2 tablets by mouth every eight hours as needed acetaminophen (TYLENOL) 500 mg tablet Take 2 tablets by mouth every 8 hours as needed for pain. 50 tablet 11/29/2022 10:14 AM EST 11/29/2022 Active Comment on above: Take 2 tablets by mo [facility] every 8 hours as needed for pain. acetaminophen 325 mg / oxyCODONE hydrochloride 5 mg oral tablet (1 source) Opioid Agonist Start: 12-02-2022 End: 12-09-2022 take 1 tablet by mouth every eight hours as needed oxyCODONE-acetamin ophen (PERCOCET) 5-325 mg tablet Indications: Left hand pain Take 1 tablet by mouth every 8 hours as needed for up to 7 days. 15 tablet 0 12/02/2022 12/09/2022 Active Comment on above: Take 1 tablet [address] [facility] every 8 hours as needed for up to 7 days. [id number] 200 actuat albuterol 0.09 mg/actuat metered dose inhaler (20 sources) beta2-Adrenergic Agonist Start: 10-14-2021 End: 10-26-2024 take 2 puff(s) by inhalation every four hours as needed for wheezing albuterol HFA (VENTOLIN HFA) 90 mcg/actuation inhaler Inhale 2 Puffs as instructed every 4 hours as needed for wheezing/shortness of breath. 1 Each 1 10/26/2024 Active Comment on above: Inhale 2 Puffs as in structed every 4 hours as needed for wheezing/shortness of breath. 120 actuat albuterol 0.1 mg/actuat / ipratropium bromide 0.02 mg/actuat inhalation spray (20 sources) Anticholinergic, beta2-Adrenergic Agonist Start: 10-16-2021 take 20-100 ug by inhalation four times daily as needed COMBIVENT RESPIMAT 20-100 mcg/actuation inhaler INHALE 1 PUFF INSTRUCTED FOUR TIMES DAILY NEEDED. 20 g 5 10/16/2021 Active Comment on above: INHALE 1 PUFF INS TRUCTED FOUR TIMES DAILY NEEDED. atorvastatin 40 mg oral tablet (20 sources) HMG-CoA Reductase Inhibitor Start: 03-28-2019 End: 08-01-2023 take 1 tablet by mouth once daily atorvastatin (LIPITOR) 40 mg tablet Take 1 tablet by mouth once daily. 30 tablet 6 08/01/2023 Active Comment on above: [facility] azith[facility] 250 mg oral tablet (3 sources) Macrolide Antimicrobial Start: 06-07-2025 End: 06-12-2025 take 2 tablets by mouth once daily, then take 1 tablet by mouth once daily azithromycin (ZITHROMAX) 250 mg tablet Indications: URI, acute , Chronic obstructive pulmonary disease with acute exacerbation (HCC) Take 2 tablets by mouth once daily for 1 day, THEN 1 tablet once daily for 4 days. 6 tablet 06/07/2025 06/12/2025 Active Start: 12-17-2024 End: 12-22-2024 azithromycin (ZITHROMAX Z-PA K) 250 mg tablet Take 2 tablets day one, then, 1 tablet daily until gone. 6 tablet 12/17/2024 12/22/2024 Active Start: 08-10-2022 End: 08-15-2022 take 2 tablets by mouth once daily, then take 1 tablet by mouth once daily azithromycin (ZITHROMAX) 250 mg tablet Take 2 tablets by mouth once daily for 1 day, THEN 1 tablet once daily for 4 days. 6 tablet 0 08/10/2022 08/15/2022 Active Comment on above: Take 2 tablets by mo [facility] once daily for 1 day, THEN 1 tablet once daily for 4 days. carvedilol 3.125 mg oral tablet (1 source) alpha-Adrenergic Nette, beta-Adrenergic Nette Start: 2 End: 2 take 1 tablet by mouth twice daily carvedilol (COREG) 3.125 mg tablet TAKE 1 TABLET BY MOUTH TWICE A DAY 180 tablet 3 01/06/2022 01/27/2022 Discontinued (Other) Comment on above: TAKE 1 TABLET BY [facility] TWICE A DAY cetirizine hydrochloride 10 mg oral tablet (20 sources) Histamine-1 Receptor Antagonist Start: 5 take 1 tablet by mouth once daily cetirizine (ZYRTEC) 10 mg tablet Take 1 tablet by mouth once daily. 90 tablet 1 03/26/2025 Active Start: 09-01-2009 End: 10-26-2024 take 1 tablet by mouth once daily cetirizine (ZYRTEC) 10 mg tablet Take 1 tablet by mouth once daily. 90 tablet 1 10/26/2024 Active Comment on above: Take one(1) tablet d aily. ferrous sulfate 325 mg oral tablet (9 sources) Start: End: 5 take 1 tablet by mouth once daily ferrous sulfate 325 mg (65 mg iron) tablet Indications: Other iron deficiency anemia Take 1 tablet by mouth once daily. 90 tablet 1 01/29/2025 07/28/2025 Active fluconazole 100 mg oral tablet (5 sources) Azole Antifungal Start: End: 5 take 1 tablet by mouth once daily fluconazole (DIFLUCAN) 100 mg tablet Indications: Candidiasis , Other acute recurrent sinusitis Take 1 tablet by mouth once daily for 3 days. 3 tablet 01/14/2025 01/17/2025 Active Start: 11-14-2023 Fluconazole Ac tive 150 MG PO Every 3 Days November 14, 2023 12:00am gabapentin 400 mg oral capsule (20 sources) Anti-epileptic Agent Start: 06-17-2020 End: 09-22-2025 take 1 capsule by mouth three times daily gabapentin (NEURONTIN) 400 mg capsule Take 1 capsule by mouth three times a day for 180 days. 270 capsule 03/26/2025 09/22/2025 Active Comment on above: Take 1 capsule by mo [facility] three times daily for 90 days. Take 1 capsule by mo [facility] three times daily for 180 days. Take 1 capsule by mo [facility] three times a day for 180 days. levoFLOXacin 500 mg oral tablet (4 sources) Quinolone Antimicrobial Start: 12-29-2024 End: 01-04-2025 take 1 tablet by mouth once daily levoFLOXacin (LEVAQUIN) 500 mg tablet Take 1 tablet by mouth once daily for 6 days. 6 tablet 12/29/2024 01/04/2025 Active methylPREDNISolone (2 sources) Corticosteroid Start: 01-03-2025 End: 01-09-2025 methylPREDNISolone (MEDROL, ANTONY,) 4 mg Dose-Pack Indications: Respiratory infection Follow dosing instructions, take with food. 21 tablet 01/03/2025 01/09/2025 Active metroNIDAZOLE 0.0075 mg/mg topical gel (3 sources) Nitroimidazole Antimicrobial Start: 06-18-2025 End: 09-16-2025 metroNIDAZOLE (METROGEL) 0.75 % Topical Gel Indications: Rosacea Apply to affected area two times a day. 45 g 2 06/18/2025 09/16/2025 Active Start: 06-18-2025 End: 06-18-2025 metroNIDAZOLE (METROGEL) 1 % Topical Gel Indications: Rosacea Apply 1 application to affected area once daily. avoid contact w/ eyes- to face (0.5 Gm) 60 g 2 06/18/2025 06/18/2025 Discontinued (Clinical Decision) naproxen 500 mg oral tablet (16 sources) Nonsteroidal Anti-inflammatory Drug Start: 12-08-2023 take 1 tablet by mouth twice daily Naproxen (Naprosyn) 500 mg tablet Active 500 MG PO TWICE A DAY December 08, 2023 12:00am Start: 06-25-2022 End: 06-14-2023 take 1 tablet by mouth twice daily Naproxen (Naprosyn) 500 mg tablet Discontinued 500 MG PO TWICE A DAY June 24, 2022 11:00pm June 14, 2023 8:55pm Start: 11-20-2018 End: 04-06-2019 take 500 mg by mouth twice daily as needed Naproxen Discontinued 500 MG PO TWICE DAILY NEEDED November 20, 2018 12:00am April 06, 2019 9:56am nitroglycerin 0.4 mg sublingual tablet (20 sources) Nitrate Vasodilator Start: 08-30-2018 End: 01-25-2025 nitroglycerin sublingual (NITROQUICK) 0.4 mg SL tablet Dissolve 1 tablet under the tongue every 5 minutes as needed for chest pain. 50 tablet 03/27/2024 Active Comment on above: Dissolve 1 tablet un salomon the tongue every 5 minutes as needed for Chest Pain. oxyCODONE hydrochloride 5 mg oral tablet (1 source) Opioid Agonist Start: 11-29-2022 End: 12-04-2022 take 1 tablet by mouth every six hours as needed for pain oxyCODONE IR (ROXICODONE) 5 mg immediate release tablet Indications: Surgical site infection , Abscess of left hand , Post-operative pain Take 1 tablet by mouth every 6 hours as needed for pain for up to 5 days. 20 tablet 0 11/29/2022 12/04/2022 Active Comment on above: Take 1 tablet by harjit th every 6 hours as needed for pain for up to 5 days. pantoprazole 40 mg delayed release oral tablet (20 sources) Proton Pump Inhibitor Start: 04-09-2014 End: 10-26-2024 take 1 tablet by mouth twice daily before mealtime pantoprazole DR (PROTONIX) 40 mg tablet TAKE 1 TABLET BY MOUTH ON AN EMPTY STOMACH 1/2 HOUR BEFORE A MEAL TWICE DAILY 180 tablet 1 10/26/2024 Active Comment on above: TAKE 1 TABLET BY HARJIT TH ON AN EMPTY STOMACH 1/2 HOUR BEFORE A MEAL TWICE DAILY polyethylene glycol 3350 43032 mg powder for oral solution (2 sources) Osmotic Laxative Start: 11-29-2022 End: 12-13-2022 polyethylene glycol 3350 (MIRALAX) 17 gram/dose powder Take 17 g by mouth once daily as needed for constipation for up to 10 days. Dissolve dose in 4 - 8 ounces of liquid and take as directed. 238 g 0 11/29/2022 12/13/2022 Active Comment on above: Take 17 g by mouth o nce daily as needed for constipation for up to 10 days. Dissolve dose in 4 - 8 ounces of liquid and take as directed. predniSONE 20 mg oral tablet (3 sources) Start: 06-07-2025 End: 06-12-2025 take 2 tablets by mouth once daily predniSONE (DELTASONE) 20 mg tablet Indications: URI, acute , Chronic obstructive pulmonary disease with acute exacerbation (HCC) Take 2 tablets by mouth once daily for 5 days. 10 tablet 06/07/2025 06/12/2025 Active Start: 08-10-2022 End: 08-15-2022 take 1 tablet by mouth once daily predniSONE (DELTASONE) 20 mg tablet Take 1 tablet by mouth once daily for 5 days. 5 tablet 0 08/10/2022 08/15/2022 Active Start: 05-04-2022 End: 05-09-2022 take 2 tablets by mouth once daily predniSONE (DELTASONE) 20 mg tablet Take 2 tablets by mouth once daily for 5 days. 10 tablet 0 05/04/2022 05/09/2022 Active Comment on above: Take 2 tablets by mo [facility] once daily for 5 days. [facility] sulfamethoxazole 800 mg / trimethoprim 160 mg oral tablet (5 sources) Dihydrofolate Reductase Inhibitor Antibacterial, Sulfonamide Antimicrobial Start: 01-15-20 End: 01-29-20 take 1 tablet by mouth twice daily sulfamethoxazole-t rimethoprim (BACTRIM DS) 800-160 mg per tablet Indications: Candidiasis , Other acute recurrent sinusitis Take 1 tablet by mouth two times a day for 14 days. 28 tablet 01/14/2025 01/28/2025 Active Start: 11-29-2022 End: 12-03-2022 take 1 tablet by mouth every twelve hours sulfamethoxazole-trimethoprim (BACTRIM DS,SEPTRA DS) 800-160 mg per tablet Take 1 tablet by mouth every 12 hours for 4 days. 8 tablet 0 11/29/2022 12/03/2022 Active Comment on above: Take 1 tablet by [facility] every 12 hours for 4 days. tiZANidine 4 mg oral tablet (8 sources) Central alpha-2 Adrenergic Agonist Start: End: take 1 tablet by mouth every eight hours as needed for muscle spasms tiZANidine (ZANAFLEX) 4 mg tablet Indications: Chronic low back pain with sciatica, sciatica laterality unspecified, unspecified back pain laterality Take 1 tablet by mouth every 8 hours as needed (muscle spasms). 60 tablet 01/03/2025 02/02/2025 Active 24 hr venlafaxine 150 mg extended release oral capsule (20 sources) Serotonin and Norepinephrine Reuptake Inhibitor Start: End: take 1 tablet by mouth once daily venlafaxine (EFFEXOR) 50 mg tablet Take 1 tablet by mouth once daily. 90 tablet 1 01/03/2025 07/02/2025 Active Start: 04-19-2024 End: 04-24-2025 take 1 capsule by mouth once daily venlafaxine ER (EFFEXOR XR) 37.5 mg 24 hr capsule Take 1 capsule by mouth once daily. Add 37.5mg to current 150mg XL daily 90 capsule 1 10/26/2024 01/03/2025 Discontinued Start: 03-27-2024 End: 04-19-2024 take 1 tablet by mouth three times daily venlafaxine (EFFEXOR) 50 mg tablet Indications: Anxiety state Take 1 tablet by mouth three times a day. 30 tablet 2 03/27/2024 04/19/2024 Discontinued Start: 08-17-2022 End: 07-24-2025 take 1 capsule by mouth once daily venlafaxine ER (EFFEXOR XR) 150 mg 24 hr capsule Indications: Adjustment disorder with anxiety , Grief reaction with prolonged bereavement Take 1 capsule by mouth once daily. in addition to Venlafaxine 50 mg tablet daily 90 capsule 04/25/2025 07/24/2025 Active Start: 07-10-2021 End: 02-15-2022 take 1 capsule by mouth once daily venlafaxine ER (EFFEXOR XR) 150 mg 24 hr capsule Indications: Adjustment disorder with anxiety , Grief reaction with prolonged bereavement Take 1 capsule by mouth once daily. 30 capsule 5 07/10/2021 02/15/2022 Discontinued Start: 06-17-2020 take 150 mg by mouth once trish y Venlafaxine Active 150 MG PO DAILY June 16, 2020 11:00pm Comment on above: Take 1 capsule by [facility] once daily. Completed/Discontinued Medications Medication Drug Class(es) Dates Sig (Normalized) Sig (Original) acetaminophen 325 mg / HYDROcodone bitartrate 5 mg oral tablet (8 sources) Opioid Agonist Start: 12-04-2019 End: 12-06-2019 take 1 tablet by mouth every four hours as needed Hydrocodone-Acetam inophen Discontinued 1 TABLET PO EVERY 4 HOURS NEEDED 08 08December 04, 2019 December 06, 2019 12:08am aspirin 81 mg delayed release oral tablet (20 sources) Platelet Aggregation Inhibitor, Nonsteroidal Anti-inflammatory Drug Start: 03-25-2023 End: 01-25-2025 take 1 tablet by mouth once daily aspirin, enteric coated (ASPIRIN, ENTERIC COATED) 81 mg EC tablet TAKE 1 TABLET BY MOUTH EVERY DAY 30 tablet 11 03/25/2023 01/25/2025 Discontinued Start: 03-16-2021 End: 03-10-2022 take 1 tablet by mouth once daily aspirin, enteric coated (ECOTRIN LOW STRENGTH) 81 mg EC tablet Take 1 tablet by mouth once daily. 90 tablet 12/07/2021 03/10/2022 Discontinued Comment on above: Take 1 tablet by harjit th once daily. TAKE 1 TABLET BY HARJIT TH EVERY DAY benzonatate 100 mg oral capsule (10 sources) Non-narcotic Antitussive Start : 12-17 End: 01-25 take 1 capsule by mouth every eight hours as needed benzonatate (TESSALON PERLE) 100 mg capsule Take 1 capsule by mouth three times a day as needed for cough. 21 capsule 12/17/2024 01/25/2025 Discontinued busPIRone hydrochloride 15 mg oral tablet (20 sources) Start : 06-17 End: 03-27 take 1 tablet by mouth three times daily busPIRone (BUSPAR) 15 mg tablet Indications: Adjustment disorder with anxiety , Grief reaction with prolonged bereavement Take 1 tablet by mouth three times daily. 90 tablet 2 10/14/2021 02/25/2022 Discontinued Comment on above: Take 1 tablet by harjit th three times daily. Take 1 tablet by harjit th three times a day. cyclobenzaprine hydrochloride 10 mg oral tablet (7 sources) Muscle Relaxant Start : 06-25 End: 06-14 take 10 mg by mouth three times daily Cyclobenzaprine Discontinued 10 MG PO THREE TIMES A DAY June 24, 2022 11:00pm June 14, 2023 8:55pm docusate sodium 100 mg oral capsule (20 sources) Start : 11-29 End: 01-25 take 1 capsule by mouth every twelve hours as needed docusate sodium (COLACE) 100 mg capsule Take 1 capsule by mouth twice daily as needed for constipation. 60 capsule 11/29/2022 10:14 AM EST 11/29/2022 01/25/2025 Discontinued Comment on above: Take 1 capsule by mo [facility] twice daily as needed for constipation. 12 hr guaiFENesin 600 mg extended release oral tablet (7 sources) Start : 01-03 End: 02-02 take 2 tablets by mouth twice daily as needed guaiFENesin (MUCINEX) 600 mg 12 hr tablet Indications: Respiratory infection Take 2 tablets by mouth two times a day as needed for cold/allergy symptoms. 60 tablet 01/03/2025 01/25/2025 Discontinued hydroCHLOROthiazide 12.5 mg oral capsule (16 sources) Thiazide Diuretic Start : 04-09 End: 02-14 take 12.5 mg by mouth once daily Hydrochlorothiazide Discontinued 12.5 MG PO DAILY February 14, 2018 3:30pm February 14, 2018 3:32pm lisinopril 10 mg oral tablet (8 sources) Angiotensin Converting Enzyme Inhibitor Start : 03-16 End: 06-14 take 10 mg by mouth once daily Lisinopril Discontinued 10 MG PO DAILY March 15, 2021 11:00pm June 14, 2023 8:55pm magnesium oxide 400 mg oral tablet (16 sources) Start : 01-27 End: 11-03 take 1 tablet by mouth twice daily magnesium oxide 400 mg magnesium tab Take 1 tablet by mouth twice daily. 60 tablet 01/27/2022 11/03/2022 Discontinued Comment on above: Take 1 tablet by harjit twice daily. 24 hr metoprolol succinate 25 mg extended release oral tablet (16 sources) beta-Adrenergic Nette Start : 03-29 End: 01-25 take 0.5 tablet by mouth once daily metoprolol succinate ER (TOPROL XL) 25 mg 24 hr tablet Indications: 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) , Primary hypertension , Raynaud's phenomenon without gangrene Take 0.5 tablets by mouth once daily. 30 tablet 2 03/29/2024 01/25/2025 Discontinued omeprazole 20 mg delayed release oral capsule (6 sources) Proton Pump Inhibitor Start : 09-03 End: 03-02 take 1 capsule by mouth once daily before breakfast omeprazole (PRILOSEC) 20 mg capsule Take 1 capsule by mouth daily before breakfast. 1/2 hr before meal. 30 capsule 2 09/03/2021 03/02/2022 Discontinued Comment on above: Take 1 capsule by mo [facility] daily before breakfast. 1/2 hr before meal. ondansetron 4 mg oral tablet (10 sources) Serotonin-3 Receptor Antagonist Start : 05-05 End: 06-14 take 4 mg by mouth every six hours Ondansetron Hcl Discontinued 4 MG PO EVERY 6 HOURS May 04, 2022 11:00pm June 14, 2023 8:55pm Start: 07-06-2021 End: 01-27-2022 take 1 tablet by mouth every six hours as needed for nausea ondansetron orally disintegrating (ZOFRAN ODT) 4 mg disintegrating tablet Indications: Viral syndrome Take 1 tablet by mouth every 6 hours as needed for nausea/vomiting. 15 tablet 07/06/2021 01/27/2022 Discontinued (Other) Comment on above: Take 1 tablet by harjit every 6 hours as needed for nausea/vomiting. perflutren lipid microspheres 1.3 mL in NaCl (PF) 0.9% 10 mL injection (DEFINITY) (6 sources) Start: 11-24-19 End: 02-24-20 perflutren lipid microspheres 1.3 mL in NaCl (PF) 0.9% 10 mL injection (DEFINITY) potassium chloride 20 meq extended release oral tablet (6 sources) Start: 10-08-20 End: 06-14-20 take 40 mEq by mouth once daily Potassium Chloride Discontinued 40 MEQ PO DAILY October 08, 2022 12:00am June 14, 2023 8:55pm 125 ml sodium chloride 9 mg/ml prefilled syringe (6 sources) Start: 11-24-19 End: 02-24-20 sodium chloride 0.9 % (flush) 10 mL (BD POSIFLUSH) Problems Active Problems Problem Classification Problem Date Documented Da te Episodic/Chronic Adjustment disorders (20 sources) Grief finding; Translations: [Adjustment disorder with depressed mood] Onset: 6 05-21-2019 Chronic Anxiety disorders (20 sources) Anxiety state; Translations: [Generalized anxiety disorder] Onset: 6 09-27-2018 Chronic Asthma (20 sources) Mild intermittent asthma; Translations: [Mild intermittent asthma with (acute) exacerbation] Onset: 8 06-20-2018 Chronic Bacterial infection; unspecified site (1 source) Other specified bacterial agents as the cause of diseases classified elsewhere; Translations: [Acute bacterial rhinosinusitis] Onset: 5 Episodic Cardiac dysrhythmias (1 source) Palpitations; Translations: [Palpitations] Episodic Chronic obstructive pulmonary disease and bronchiectasis (20 sources) Emphysematous bronchitis; Translations: [Chronic obstructive pulmonary disease, unspecified] Onset: 5 07-21-2020 Chronic Chronic obstructive pulmonary disease and bronchiectasis (1 source) Chronic obstructive pulmonary disease and bronchiectasis; Translations: [COPD with chronic bronchitis (HCC)] Onset: 3 Coma; stupor; and brain damage (2 sources) Unspecified coma; Translations: [Unspecified coma] Onset: 5 Episodic Complications of surgical procedures or medical care (20 sources) Subcutaneous emphysema resulting from a procedure; Translations: [Emphysema (subcutaneous) resulting from a procedure, initial encounter] Onset: 3 07-21-2020 Episodic Coronary atherosclerosis and other heart disease (20 sources) Coronary arteriosclerosis; Translations: [Atherosclerotic heart disease of [place] coronary artery without angina pectoris] Onset: 4 09-03-2021 Chronic Deficiency and other anemia (9 sources) Anemia; Translations: [Anemia, unspecified] Episodic Deficiency and other anemia (1 source) Normocytic anemia; Translations: [Anemia, unspecified] 03-29-2024 Episodic Deficiency and other anemia (3 sources) Iron deficiency anemia; Translations: [Other iron deficiency anemias] 01-29-2025 Episodic Deficiency and other anemia (1 source) Iron deficiency anemia, unspecified; Translations: [Iron deficiency anemia, unspecified iron deficiency anemia type] Onset: 5 Episodic Diseases of white blood cells (16 sources) Leukocytosis; Translations: [Elevated white blood cell count, unspecified] Onset: 5 Chronic Disorders of lipid metabolism (20 sources) Hyperlipidemia; Translations: [Hyperlipidemia, unspecified] Onset: 4 Chronic Esophageal disorders (20 sources) Gastroesophageal reflux disease; Translations: [Gastro-esophageal reflux disease without esophagitis] Onset: 1 Chronic Essential hypertension (20 sources) Essential hypertension; Translations: [Essential (primary) hypertension] Onset: 8 Chronic Fluid and electrolyte disorders (18 sources) Hypokalemia; Translations: [Hypokalemia] Episodic Gastroduodenal ulcer (except hemorrhage) (20 sources) Peptic ulcer; Translations: [Peptic ulcer, site unspecified, unspecified as acute or chronic, without hemorrhage or perforation] Onset: 1 11-02-2021 Chronic Gastrointestinal hemorrhage (7 sources) Lower gastrointestinal hemorrhage; Translations: [Gastrointestinal hemorrhage, unspecified] Onset: 5 06-14-2023 Episodic Genitourinary symptoms and ill-defined conditions (9 sources) Abnormal urinalysis; Translations: [Unspecified abnormal findings in urine] Episodic Headache; including migraine (1 source) Sinus headache; Translations: [Sinus headache] Onset: 5 Episodic Hemorrhoids (4 sources) Internal hemorrhoids; Translations: [Other hemorrhoids] 06-14-2023 Episodic Immunizations and screening for infectious disease (8 sources) Suspected disease caused by 2019-nCoV; Translations: [Suspected 2019 novel coronavirus infection] 03-16-2021 Episodic Malaise and fatigue (4 sources) Fatigue; Translations: [Other fatigue] Episodic Menopausal disorders (2 sources) Menorrhagia; Translations: [Excessive bleeding in the premenopausal period] 08-04-2023 Chronic Menstrual disorders (7 sources) Menstrual cramp; Translations: [Dysmenorrhea, unspecified] 08-01-2023 Chronic Mood disorders (1 source) Moderate major depression ; Translations: [Major depressive disorder, single episode, moderate] 03-29-2024 Chronic Neoplasms of unspecified nature or uncertain behavior (1 source) Thrombocytosis; Translations: [Thrombocytosis] Onset: 5 Chronic Neoplasms of unspecified nature or uncertain behavior (1 source) Thrombocytosis; Translations: [Thrombocytosis] 01-25-2025 Episodic Open wounds of extremities (8 sources) Laceration of left little finger; Translations: [Laceration without foreign body of left little finger without damage to nail, initial encounter] 03-16-2021 Episodic Other circulatory disease (20 sources) Raynaud's phenomenon; Translations: [Raynaud's syndrome without gangrene] 07-21-2020 Chronic Other connective tissue disease (1 source) Pain in left arm; Translations: [Pain in left arm] Episodic Other connective tissue disease (1 source) Pain in bilateral lower legs; Translations: [Pain in right lower leg] 12-08-2023 Episodic Other connective tissue disease (3 sources) Pain in left thumb; Translations: [Pain in left finger(s)] 06-18-2025 Episodic Other connective tissue disease (1 source) Pain in left finger(s); Translations: [Thumb pain, left] Onset: 5 Episodic Other female genital disorders (20 sources) Simple endometrial glandular hyperplasia without atypia; Translations: [Benign endometrial hyperplasia] Onset: 9 04-27-2019 Chronic Other female genital disorders (8 sources) Abnormal uterine bleeding; Translations: [Abnormal uterine and vaginal bleeding, unspecified] 03-16-2021 Chronic Other female genital disorders (8 sources) Polyp of corpus uteri; Translations: [Polyp of corpus uteri] 03-16-2021 Episodic Other inflammatory condition of skin (1 source) Rosacea; Translations: [Rosacea, unspecified] 06-18-2025 Chronic Other inflammatory condition of skin (1 source) Rosacea, unspecified; Translations: [Rosacea] Onset: 5 Chronic Other lower respiratory disease (1 source) Dyspnea on exertion; Translations: [Other forms of dyspnea] Episodic Other lower respiratory disease (2 sources) Cough; Translations: [Acute cough] Episodic Other lower respiratory disease (2 sources) Respiratory tract infection; Translations: [Other specified respiratory disorders] 01-03-2025 Episodic Other nervous system disorders (4 sources) Carpal tunnel syndrome of left wrist; Translations: [Carpal tunnel syndrome, left upper limb] Chronic Other nervous system disorders (1 source) Carpal tunnel syndrome, left upper limb; Translations: [Carpal tunnel syndrome of left wrist] Onset: 3 Chronic Other nervous system disorders (1 source) Numbness of finger; Translations: [Anesthesia of skin] Episodic Other nervous system disorders (2 sources) Skin sensation disturbance; Translations: [Unspecified disturbances of skin sensation] Episodic Other nervous system disorders (1 source) Other acute postprocedural pain; Translations: [Post-operative pain] Onset: 3 Episodic Other non-traumatic joint disorders (4 sources) Pain in elbow; Translations: [Pain in left elbow] Episodic Other non-traumatic joint disorders (1 source) Anterior knee pain; Translations: [Pain in right knee] 12-08-2023 Episodic Other nutritional; endocrine; and metabolic disorders (2 sources) Hypomagnesemia; Translations: [Hypomagnesemia] Chronic Other nutritional; endocrine; and metabolic disorders (1 source) Hypomagnesemia; Translations: [Hypomagnesemia] Onset: 5 Chronic Other skin disorders (1 source) Finding of color of limb; Translations: [Disorder of pigmentation, unspecified] 12-08-2023 Episodic Other upper respiratory disease (1 source) Congestion of nasal sinus; Translations: [Nasal congestion] Episodic Other upper respiratory infections (4 sources) Acute sinusitis, unspecified; Translations: [Recurrent acute sinusitis] Onset: 5 01-14-2025 Episodic Otitis media and related conditions (1 source) Acute otitis media; Translations: [Otitis media, unspecified, unspecified ear] 12-17-2024 Episodic Pneumonia (except that caused by tuberculosis or sexually transmitted disease) (8 sources) Pneumonia; Translations: [Pneumonia, unspecified organism] 06-18-2020 Episodic Residual codes; unclassified (8 sources) Tobacco user; Translations: [Tobacco use] 04-12-2019 Episodic Residual codes; unclassified (1 source) Livedo reticularis; Translations: [Pallor] 12-08-2023 Episodic Septicemia (except in labor) (8 sources) Sepsis; Translations: [Sepsis, unspecified organism] 03-16-2021 Episodic Sprains and strains (8 sources) Low back strain; Translations: [Strain of muscle, fascia and tendon of lower back, initial encounter] 11-21-2018 Episodic Substance-related disorders (20 sources) Tobacco user; Translations: [Nicotine dependence, unspecified, uncomplicated] Onset: 6 08-30-2018 Chronic Syncope (4 sources) Syncope; Translations: [Syncope and collapse] Episodic Unclassified (1 source) Unknown / UNK(Unknown) Onset: 8 Past or Other Problems Problem Classification Problem Date Documented Da te Episodic/Chronic Abdominal pain (20 sources) Right flank pain; Translations: [Unspecified abdominal pain] Onset: 07-04-2008 Resolved: 08-09-2012 05-13-2022 Episodic Gastritis and duodenitis (20 sources) Gastritis; Translations: [Gastritis, unspecified, without bleeding] Onset: 08-16-2006 Resolved: 04-27-2017 04-27-2017 Episodic Lymphadenitis (20 sources) Lymphadenopathy; Translations: [Generalized enlarged lymph nodes] Onset: 06-06-2014 Resolved: 04-27-2017 04-27-2017 Episodic Mycoses (20 sources) Pityriasis versicolor; Translations: [Pityriasis versicolor] Onset: 01-29-2011 Resolved: 09-24-2014 09-24-2014 Episodic Nausea and vomiting (20 sources) Nausea; Translations: [Nausea] Onset: 10-08-2008 Resolved: 08-09-2012 08-09-2012 Episodic Nonspecific chest pain (20 sources) Chest pain; Translations: [Chest pain, unspecified] Onset: 08-30-2018 Resolved: 08-30-2018 03-29-2019 Episodic Other circulatory disease (3 sources) Elevated blood pressure; Translations: [Elevated blood-pressure reading, without diagnosis of hypertension] Onset: 08-30-2018 11-27-2022 Episodic Other infections; including parasitic (1 source) Trichomonal vulvovaginitis; Translations: [Trichomonal vulvovaginitis] Onset: 10-08-2024 Episodic Other inflammatory condition of skin (20 sources) Pruritus, unspecified; Translations: [Unspecified pruritic disorder] Onset: 01-29-2011 Resolved: 09-24-2014 09-24-2014 Episodic Other lower respiratory disease (1 source) Other specified respiratory disorders; Translations: [Respiratory infection] Onset: 01-03-2025 Episodic Other screening for suspected conditions (not mental disorders or infectious disease) (20 sources) Patient encounter status; Translations: [Encounter for screening mammogram for malignant neoplasm of breast] Onset: 10-08-2008 Resolved: 09-24-2014 Episodic Other skin disorders (20 sources) Post-inflammatory hyperpigmentation; Translations: [Postinflammatory hyperpigmentation] Onset: 01-29-2011 Resolved: 09-24-2014 09-24-2014 Episodic Other upper respiratory disease (20 sources) Allergic rhinitis; Translations: [Allergic rhinitis, unspecified] Onset: 08-16-2006 Resolved: 04-27-2017 04-27-2017 Chronic Residual codes; unclassified (20 sources) Abnormal body temperature; Translations: [Fever and other physiologic disturbances of temperature regulation] Onset: 07-04-2008 Resolved: 08-09-2012 08-09-2012 Episodic Skin and subcutaneous tissue infections (20 sources) Infected hand; Translations: [Local infection of the skin and subcutaneous tissue, unspecified] Onset: 09-17-2009 Resolved: 04-27-2017 Episodic Spondylosis; intervertebral disc disorders; other back problems (20 sources) Low back pain; Translations: [Lumbago] Onset: 08-16-2006 05-08-2018 Episodic Substance-related disorders (20 sources) Marijuana user; Translations: [Cannabis use, unspecified, uncomplicated] Onset: 06-08-2018 06-08-2018 Episodic Superficial injury; contusion (1 source) Injury of conjunctiva and corneal abrasion without foreign body, right eye, initial encounter; Translations: [Injury of conjunctiva and corneal abrasion without foreign body, right eye, initial encounter] Onset: 04-19-2024 Episodic Unclassified (1 source) Patient encounter status 02-12-2025 Viral infection (20 sources) Herpes simplex; Translations: [Herpesviral infection, unspecified] Onset: 03-18-2016 Resolved: 04-27-2017 04-27-2017 Episodic Results Test Name Value Interpretation Reference Range Facility CBC W Auto Differential pane l (Bld)on 06-18-2025 Basophils (Bld) [#/Vol] 0.08 10*3/uL [facility] Basophils/100 WBC (Bld) 0.6 % C [facility] Differential cell count method Nom (Bld) Auto [place] Eosinophils (Bld) [#/Vol] 0.45 10*3/uL [facility] Eosinophils/100 WBC (Bld) 3.4 % [place] Erythrocyte distribution width (RBC) [Ratio] 16.2 % High 11.5 - 15.0 % [place] Hematocrit (Bld) [Volume fraction] 44.7 % 36.0 - 46.0 % [place] Hemoglobin (Bld) [Mass/Vol] 14.0 g/dL 11.5 - 15.5 g/dL [place] Immature granulocytes (Bld) [#/Vol] 0.13 10*3/uL High [facility] Immature granulocytes/100 WBC (Bld) 1.0 % [place] Interpretation and review of laboratory results Abnormal [place] Lymphocytes (Bld) [#/Vol] 3.49 10*3/uL [place] Lymphocytes/100 WBC (Bld) 26.3 % [place] MCH (RBC) [Entitic mass] 28.9 pg 26. 0 - 34.0 pg [place] MCHC (RBC) [Mass/Vol] 31.3 g/dL 30.5 - 36.0 g/dL [place] MCV (RBC) [Entitic vol] 92.4 fL 80.0 - 100.0 fL [place] Monocytes (Bld) [#/Vol] 1.44 10*3/uL High [facility] Monocytes/100 WBC (Bld) 10.9 % C [facility] Neutrophils (Bld) [#/Vol] 7.67 10*3/uL High [place] Neutrophils/100 WBC (Bld) 57.8 % [place] Nucleated RBC (Bld) [#/Vol] [facility] Nucleated RBC/100 WBC (Bld) [Ratio] 0.0 % /100 WBC [place] Platelet mean volume (Bld) [Entitic vol] 11.0 fL 9.0 - 12.7 fL [place] Platelets (Bld) [#/Vol] 418 10*3/uL High [place] RBC (Bld) [#/Vol] 4.84 10*6/uL 3.90 - 5.2 0 m/uL [place] WBC (Bld) [#/Vol] 13.26 10*3/uL High [facility] Basophils (Bld) [#/Vol] 0.08 10*3/uL Normal <0.11 [facility] Comment on above: Order Comment: Speci men Type: BLOOD SPECIMENOrdering Facility: [facility] Address: [address] [place] [address] Performed By: #### 5 7021-8 ####[facility] LABCLIA [id number] [address] OF [facility] Basophils/100 WBC (Bld) 0.6 % Normal C [facility] Comment on above: Order Comment: Speci men Type: BLOOD SPECIMENOrdering Facility: [facility] Address: [address] [place] [address] Performed By: #### 5 7021-8 ####[facility] LABCLIA [id number] [place] [address] [place] Differential cell count method Nom (Bld) Auto Normal [facility] Comment on above: Order Comment: Speci men Type: BLOOD SPECIMENOrdering Facility: [facility] Address: [address] [place] [address] Performed By: #### 5 7021-8 ####[facility] LABCLIA [id number] [place] [address] [place] Eosinophils (Bld) [#/Vol] 0.45 10*3/uL Normal <0.46 [facility] Comment on above: Order Comment: Speci men Type: BLOOD SPECIMENOrdering Facility: [facility] Address: [address] [place] [address] Performed By: #### 5 7021-8 ####[facility] LABCLIA [id number] [place] [address] [place] Eosinophils/100 WBC (Bld) 3.4 % Normal [facility] Comment on above: Order Comment: Speci men Type: BLOOD SPECIMENOrdering Facility: [facility] Address: [address] [place] [address] Performed By: #### 5 7021-8 ####[facility] LABCLIA [id number] [place] [address] [place] Erythrocyte distribution width (RBC) [Ratio] 16.2 % High 11.5-15.0 [facility] Comment on above: Order Comment: Speci men Type: BLOOD SPECIMENOrdering Facility: [facility] Address: [address] [place] [address] Performed By: #### 5 7021-8 ####[facility] LABCLIA [id number] [place] [address] [place] Hematocrit (Bld) [Volume fraction] 44.7 % Normal 36.0-46.0 [facility] Comment on above: Order Comment: Speci men Type: BLOOD SPECIMENOrdering Facility: [facility] Address: [address] [place] [address] Performed By: #### 5 7021-8 ####[facility] LABIA [id number] [place] [address] [place] Hemoglobin (Bld) [Mass/Vol] 14.0 g/dL Normal 11.5-15.5 [facility] Comment on above: Order Comment: Speci men Type: BLOOD SPECIMENOrdering Facility: [facility] Address: [address] [place] [address] Performed By: #### 5 7021-8 ####[facility] LABIA [id number] [place] [address] [place] Immature granulocytes (Bld) [#/Vol] 0.13 10*3/uL High <0.10 [facility] Comment on above: Order Comment: Speci men Type: BLOOD SPECIMENOrdering Facility: [facility] Address: [address] [place] [address] Performed By: #### 5 7021-8 ####[facility] LABIA [id number] [place] [address] [place] Immature granulocytes/100 WBC (Bld) 1.0 % Normal [facility] Comment on above: Order Comment: Speci men Type: BLOOD SPECIMENOrdering Facility: [facility] Address: [address] [place] [address] Performed By: #### 5 7021-8 ####[facility] LABIA [id number] [place] [address] [place] Lymphocytes (Bld) [#/Vol] 3.49 10*3/uL Normal 1.00-4.00 [facility] Comment on above: Order Comment: Speci men Type: BLOOD SPECIMENOrdering Facility: [facility] Address: [address] [place] [address] Performed By: #### 5 7021-8 ####[facility] LABCLIA [id number] [place] [address] [place] Lymphocytes/100 WBC (Bld) 26.3 % Normal [facility] Comment on above: Order Comment: Speci men Type: BLOOD SPECIMENOrdering Facility: [facility] Address: [address] [place] [address] Performed By: #### 5 7021-8 ####[facility] LABIA [id number] [place] [address] [place] MCH (RBC) [Entitic mass] 28.9 pg Normal 26.0-34.0 [facility] Comment on above: Order Comment: Speci men Type: BLOOD SPECIMENOrdering Facility: [facility] Address: [address] [place] [address] Performed By: #### 5 7021-8 ####[facility] LABIA [id number] [place] [address] [place] MCHC (RBC) [Mass/Vol] 31.3 g/dL Normal 30.5-36.0 [facility] Comment on above: Order Comment: Speci men Type: BLOOD SPECIMENOrdering Facility: [facility] Address: [address] [place] [address] Performed By: #### 5 7021-8 ####[facility] LABIA [id number] [place] [address] [place] MCV (RBC) [Entitic vol] 92.4 fL Normal 80.0-100.0 C [facility] Comment on above: Order Comment: Speci men Type: BLOOD SPECIMENOrdering Facility: [facility] Address: [address] [place] [address] Performed By: #### 5 7021-8 ####[facility] LABCLIA [id number] [address] [place] [address] [place] Monocytes (Bld) [#/Vol] 1.44 10*3/uL High <0.87 [facility] Comment on above: Order Comment: Speci men Type: BLOOD SPECIMENOrdering Facility: [facility] Address: [address] [place] [address] Performed By: #### 5 7021-8 ####[facility] LABCLIA [id number] [place] [id number] [place] Monocytes/100 WBC (Bld) 10.9 % Normal [facility] Comment on above: Order Comment: Speci men Type: BLOOD SPECIMENOrdering Facility: [facility] Address: [address] [place] [address] Performed By: #### 5 7021-8 ####[facility] LABCLIA [id number] [place] [address] [place] Neutrophils (Bld) [#/Vol] 7.67 10*3/uL High 1.45-7.50 [facility] Comment on above: Order Comment: Speci men Type: BLOOD SPECIMENOrdering Facility: [facility] Address: [address] [place] [address] Performed By: #### 5 7021-8 ####[facility] LABCLIA [id number] [place] [id number] [place] Neutrophils/100 WBC (Bld) 57.8 % Normal [facility] Comment on above: Order Comment: Speci men Type: BLOOD SPECIMENOrdering Facility: [facility] Address: [address] [place] [address] Performed By: #### 5 7021-8 ####[facility] LABCLIA [id number] [place] [id number] [place] Nucleated RBC (Bld) [#/Vol] 10*3/uL Normal <0.01 [facility] Comment on above: Order Comment: Speci men Type: BLOOD SPECIMENOrdering Facility: [facility] Address: [address] [place] [address] Performed By: #### 5 7021-8 ####[facility] LABCLIA [id number] [place] [address] [place] Nucleated RBC/100 WBC (Bld) [Ratio] 0.0 /100 WBC Normal [facility] Comment on above: Order Comment: Speci men Type: BLOOD SPECIMENOrdering Facility: [facility] Address: [address] [place] [address] Performed By: #### 5 7021-8 ####[facility] LABIA [id number] [place] [address] [place] Platelet mean volume (Bld) [Entitic vol] 11.0 fL Normal 9.0-12.7 [facility] Comment on above: Order Comment: Speci men Type: BLOOD SPECIMENOrdering Facility: [facility] Address: [address] [place] [address] Performed By: #### 5 7021-8 ####[facility] LABIA [id number] [place] [address] [place] Platelets (Bld) [#/Vol] 418 10*3/uL High 150-400 [facility] Comment on above: Order Comment: Speci men Type: BLOOD SPECIMENOrdering Facility: [facility] Address: [address] [place] [address] Performed By: #### 5 7021-8 ####[facility] LABIA [id number] [place] [address] [place] RBC (Bld) [#/Vol] 4.84 10*6/uL Normal 3.90-5.20 [facility] Comment on above: Order Comment: Speci men Type: BLOOD SPECIMENOrdering Facility: [facility] Address: [address] [place] [id number] Performed By: #### 5 7021-8 ####[facility] [id number] [place] [id number] [place] WBC (Bld) [#/Vol] 13.26 10*3/uL High 3.70-11.00 [facility] Comment on above: Order Comment: Speci men Type: BLOOD SPECIMENOrdering Facility: [facility] Address: [address] [place] [id number] Performed By: #### 5 7021-8 ####[facility] [id number] [place] [id number] [facility] [place] CNOVon 06-18-2025 CNOV Office Visit (FAMPWS ) BEV WEBB ([id number]) 1975 F Date Time Provider Department 06/18/25 9:40 AM [facility] During your visit today, we recorded the following information about you: Temperature Pulse Blood pressure Weight 96.7 degrees 83/minute 122/86 74.8 kg Amita Pope APRN.[employer] FURNACE OPERATOR 06/18/2025 10:12 AM Addendum This is a 50 year old female who presents today with: Patient presents with: Rectal Bleeding Hemorrhoids HISTORY OF PRESENT ILLNESS: Bev Webb is a 50 year old female. Patient presents with: Rectal Bleeding Hemorrhoids Bev Webb is a 50-year-old female with a history of emphysema, anemia, IBS, and colitis, presenting for evaluation of hematochezia and abdominal pain. Hematochezia: - Bev noted significant hematochezia yesterday, described as more severe than previous episodes associated with hemorrhoids. - Bev observed a blood clot on toilet paper. - Bev reports rectal pain described as shoving a needle yesterday. - Bev has a known external hemorrhoid. - Bev denies recent dietary changes. Abdominal Pain: - Bev experienced cramping abdominal pain during the episode of hematochezia, described as everything just cramped. - Bev reports chronic right-sided abdominal pain. - Bev's history of exploratory surgery in her 20s revealed bowel adhesions to the stomach lining, which were but not re-evaluated since. - Bev denies current abdominal pain. Dysphagia: - Occasional dysphagia with slow and painful swallowing. - Bev has a history of hernia repair with associated epigastric discomfort. Nausea: - Chronic nausea, no emesis. Emphysema: - Chronic dyspnea, cough, and wheezing; no changes in symptoms. - Bev denies chest pain or palpitations. Anemia: - Bev reports fatigue. - Bev is adherent to iron supplementation. Weight Gain: - Recent weight gain attributed to inactivity. Joint Pain: - Chronic left hip pain x5 years. - Bev denies new joint pain or swelling. Menopause: - Bev is experiencing hot flashes and acne. - Bev reports emotional lability, stating I just like wanted to cry for no reason. Hx of MRSA infection in left carpal tunnel release- [facility] joint pain and swelling since then PAST MEDICAL HISTORY: PAST MEDICAL HISTORY Diagnosis Date Abnormal mammogram, unspecified LEFT BREAST Abnormal Pap smear and cervical HPV (human papillomavirus) CAD (coronary artery disease) 2103 diffuse moderate CAD in the left main and RCA-40-50%, seeing Dr. Chase Centrilobular emphysema (HCC) Chronic cholecystitis 08/24/07 Chronic depressive personality disorder Chronic gastric ulcer without mention of hemorrhage, perforation, without mention of obstruction COPD with chronic bronchitis (HCC) Generalized anxiety disorder HTN (hypertension) Hyperlipidemia Incisional hernia without mention of obstruction or gangrene Irritable bowel syndrome Lumbago PONV (postoperative nausea and vomiting) Raynaud's phenomenon (by history or observed) Tobacco use disorder, continuous Daily smoker since age 16. PAST SURGICAL HISTORY Procedure Laterality Date APPENDECTOMY ENDOMETRIAL BX W/WO ENDOCERVIX BX W/O DILAT SPX 01/01/2009 Menorrhagia ESOPHAGOGASTRODUODENO SCOPY TRANSORAL DIAGNOSTIC 09/26/2012 EGD EXC BREAST LES PREOP PLMT RAD MARKER OPEN 1 LES 08/29/2009 left breast HEART CATHETERIZATION 11/07/2013 IMPLANT MESH OPN HERNIA RPR/DEBRIDEMENT CLOSURE 07/01/2008 LAPAROSCOPIC APPENDECTOMY LAPS SURG CHOLECYSTECTOMY W/CHOLANGIOGRAPHY 08/24/2007 LIG/TRNSXJ FLP TUBE ABDL/VAG APPR UNI/BI PREOP PLACEMENT NEEDLE LOC 08/29/2009 left breast REP INIT INCI/ VENTRAL HERNIA 11/27/2020 REPAIR FIRST ABDOMINAL WALL HERNIA 07/01/2008 REVISE MEDIAN N/CARPAL TUNNEL SURG Left 11/10/2022 Left CTR SEPTOPLASTY/SUBMUCOUS RESECJ W/WO CARTILAGE GRF 2001 +/- TimAndre STEREOTACTIC CORE BIOPSY 07/09/2009 LEFT BREAST ALLERGIES Doxycycline, Entex [Phenylephrine-Guaife nesin], Erythromycin, Flexeril [Cyclobenzaprine Hcl], Omnicef [Cefdinir], Penicillin G, Risperdal [Risperidone], Ultram [Tramadol Hcl], and Valtrex [Valacyclovir Hcl] MEDICATIONS Current Outpatient Medications Medication Sig venlafaxine ER (EFFEXOR XR) 150 mg 24 hr capsule Take 1 capsule by mouth once daily. in addition to Venlafaxine 50 mg tablet daily cetirizine (ZYRTEC) 10 mg tablet Take 1 tablet by mouth once daily. gabapentin (NEURONTIN) 400 mg capsule Take 1 capsule by mouth three times a day for 180 days. ferrous sulfate 325 mg (65 mg iron) tablet Take 1 tablet by mouth once daily. venlafaxine (EFFEXOR) 50 mg tablet Take 1 tablet by mouth once daily. pantoprazole DR (PROTONIX) 40 mg tablet TAKE 1 TABLET BY MOUTH ON AN EMPTY STOMACH 1/2 HOUR BEFORE A MEAL TWICE DAILY albuterol HFA (VENTOLIN HFA) 90 mcg/actuation inhaler Inhale 2 Puffs as instructed (more content not included)... Normal [facility] Comprehensive metabolic 2000 panelon 06-18-2025 Albumin [Mass/Vol] 4.0 g/dL Normal 3.9-4.9 [facility] Comment on above: Order Comment: Speci men Type: BLOOD SPECIMENOrdering Facility: [facility] Address: [address] [place] [address] Performed By: #### 5 0190-8, 3016-3, LIPAMALIA, 38503-7 ####[facility] LABCLIA [id number] [place] [id number] [place] ALP [Catalytic activity/Vol] 117 U/L Normal 34-123 [facility] Comment on above: Order Comment: Speci men Type: BLOOD SPECIMENOrdering Facility: [facility] Address: [address] [place] [address] Performed By: #### 5 0190-8, 3016-3, LIPNF, 66130-1 ####[facility] LABCLIA [id number] [place] [address] [place] ALT [Catalytic activity/Vol] 16 U/L Normal 7-38 [facility] Comment on above: Order Comment: Speci men Type: BLOOD SPECIMENOrdering Facility: [facility] Address: [address] [place] [address] Performed By: #### 5 0190-8, 3016-3, LIPNF, 40984-1 ####[facility] LABIA [id number] [place] [address] [place] Anion gap [Moles/Vol] 14 mmol/L Normal 8-15 [facility] Comment on above: Order Comment: Speci men Type: BLOOD SPECIMENOrdering Facility: [facility] Address: [address] [place] [address] Performed By: #### 5 0190-8, 3016-3, LIPNF, 83392-3 ####[facility] LABCLIA [id number] [place] [address] [place] AST [Catalytic activity/Vol] 15 U/L Normal 13-35 [facility] Comment on above: Order Comment: Speci men Type: BLOOD SPECIMENOrdering Facility: [facility] Address: [address] [place] [address] Performed By: #### 5 0190-8, 3016-3, LIPNF, 45817-1 ####[facility] LABCLIA [id number] [address] [address] [place] Bilirubin [Mass/Vol] 0.2 mg/dL Normal 0.2-1.3 [facility] Comment on above: Order Comment: Speci men Type: BLOOD SPECIMENOrdering Facility: [facility] Address: [address] [place] [address] Performed By: #### 5 0190-8, 3016-3, LIPNF, 13715-3 ####[facility] LABCLIA [id number] [place] [address] [place] Calcium [Mass/Vol] 9.3 mg/dL Normal 8.5-10.2 [facility] Comment on above: Order Comment: Speci men Type: BLOOD SPECIMENOrdering Facility: [facility] Address: [address] [place] [address] Performed By: #### 5 0190-8, 6-3, LIPNF, 36270-7 ####[facility] LABCLIA [id number] [place] [address] [place] Chloride [Moles/Vol] 103 mmol/L Normal 98-107 [facility] Comment on above: Order Comment: Speci men Type: BLOOD SPECIMENOrdering Facility: [facility] Address: [address] [place] [address] Performed By: #### 5 0190-8, 301-3, LIPNF, 07014-0 ####[facility] LABCLIA [id number] [place] [address] [place] CO2 [Moles/Vol] 20 mmol/L Low 22-30 [facility] Comment on above: Order Comment: Speci men Type: BLOOD SPECIMENOrdering Facility: [facility] Address: [address] [place] [address] Performed By: #### 5 0190-8, 3016-3, LIPNF, 34119-1 ####[facility] LABCLIA [id number] [place] [address] [place] Creatinine [Mass/Vol] 0.76 mg/dL Normal 0.58-0.96 [facility] Comment on above: Order Comment: Samson morrow Type: BLOOD SPECIMENOrdering Facility: [facility] Address: [address] [place] [address] Performed By: #### 5 0190-8, 3016-3, [place], 75680-4 ####[facility] LABCLIA [id number] [place] [address] [place] eGFRcr SerPlBld CKD-EPI 2020 96 mL/min/1.73m??? Normal >=60 [facility] Comment on above: Order Comment: Samson morrow Type: BLOOD SPECIMENOrdering Facility: [facility] Address: [address] [place] [address] Result Comment: Betty mated Glomerular Filtration Rate (eGFR) is calculated using the 2020 CKD-EPI creatinine equation. This equation utilizes serum creatinine, sex, and age as parameters. The creatinine assay has traceable calibration to isotope dilution-mass spectrometry. Refer to KDIGO guidelines for clinical interpretation. In patients with unstable renal function, e.g. those with acute kidney injury, the eGFR may not accurately reflect actual GFR. Performed By: #### 5 0190-8, 3016-3, [place], 80045-8 ####[facility] LABCLIA [id number] [place] [id number] [place] Glucose [Mass/Vol] 65 mg/dL Low 74-99 [facility] Comment on above: Order Comment: Samson morrow Type: BLOOD SPECIMENOrdering Facility: [facility] Address: [address] [place] [address] Result Comment: The [place] Diabetes Association (ADA) provides guidance for cutoff values for fasting glucose and random glucose. The ADA defines fasting as no caloric intake for at least 8 hours. Fasting plasma glucose results between 100 to 125 mg/dL indicate increased risk for diabetes (prediabetes). Fasting plasma glucose results greater than or equal to 126 mg/dL meet the criteria for diagnosis of diabetes. In the absence of unequivocal hyperglycemia, results should be confirmed by repeat testing. In a patient with classic symptoms of hyperglycemia or hyperglycemic crisis, random plasma glucose results greater than or equal to 200 mg/dL meet the criteria for diagnosis of diabetes. Reference: Standards of Medical Care in Diabetes 2016, [place] Diabetes Association. Diabetes Care. 2016.39(Suppl 1). Performed By: #### 5 0190-8, 6-3, LIPNF, ####[facility] LABCLIA [id number] [address] [address] [place] Potassium [Moles/Vol] 4.4 mmol/L Normal 3.7-5.1 [facility] Comment on above: Order Comment: Speci men Type: BLOOD SPECIMENOrdering Facility: [facility] Address: [address] [place] [address] Performed By: #### 5 0190-8, 3015-3, LIPNF, ####[facility] LABCLIA [id number] [place] [id number] [place] Protein [Mass/Vol] 6.7 g/dL Normal 6.3-8.0 [facility] Comment on above: Order Comment: Speci men Type: BLOOD SPECIMENOrdering Facility: [facility] Address: [address] [place] [address] Performed By: #### 5 0190-8, 3015-3, LIPNF, ####[facility] LABCLIA [id number] [place] [id number] [place] Sodium [Moles/Vol] 137 mmol/L Normal 136-144 [facility] Comment on above: Order Comment: Speci men Type: BLOOD SPECIMENOrdering Facility: [facility] Address: [address] [place] [address] Performed By: #### 5 0190-8, 3015-3, LIPNF, 81682-3 ####[facility] LABCLIA [id number] [address] [address] [place] Urea nitrogen [Mass/Vol] 8 mg/dL Normal 7-21 [facility] Comment on above: Order Comment: Samson morrow Type: BLOOD SPECIMENOrdering Facility: [facility] Address: [address] [place] [address] Performed By: #### 5 0190-8, 3016-3, LIPNF, 70932-1 ####[facility] LABCLIA [id number] [place] [address] [place] HbA1c (Bld)on 06-18-2025 Average glucose Estimated from glycated hemoglobin (Bld) [Mass/Vol] 103 mg/dL [place] Comment on above: eAG: (Estimated aver age glucose) is a calculated value from HgbA1c and is environmental marketing representative of the average blood glucose level in the last 2-3 month period. HbA1c (Bld) [Mass fraction] 5.2 % 4.3 - 5.6 % [place] Comment on above: [place] Diabetes As sociation guidelines indicate that patients with HgbA1c in the range 5.7-6.4% are at increased risk for development of diabetes, and intervention by lifestyle modification may be beneficial. HgbA1c greater or equal to 6.5% is considered diagnostic of diabetes. [place] Average glucose Estimated from glycated hemoglobin (Bld) [Mass/Vol] 103 mg/dL Normal [facility] Comment on above: Order Comment: Samson morrow Type: BLOOD SPECIMENOrdering Facility: [facility] Address: [address] [place] [address] Result Comment: eAG: (Estimated average glucose) is a calculated value from HgbA1c and is environmental marketing representative of the average blood glucose level in the last 2-3 month period. Performed By: #### 5 5454-3 ####[facility] LABCLIA [id number] [facility] [place] [address] [place] HbA1c (Bld) [Mass fraction] 5.2 % Normal 4.3-5.6 [facility] Comment on above: Order Comment: Samson morrow Type: BLOOD SPECIMENOrdering Facility: [facility] Address: [address] [place] [address] Result Comment: [place] Diabetes Association guidelines indicate that patients with HgbA1c in the range 5.7-6.4% are at increased risk for development of diabetes, and intervention by lifestyle modification may be beneficial. HgbA1c greater or equal to 6.5% is considered diagnostic of diabetes. Performed By: #### 5 5454-3 ####[facility] LABCLIA [id number] [address] [address] [place] Iron and Iron binding capaci ty panelon 06-18-2025 Iron [Mass/Vol] 40 ug/dL Low 41-186 [facility] Comment on above: Order Comment: Speci men Type: BLOOD SPECIMENOrdering Facility: [facility] Address: [address] [place] [address] Performed By: #### 5 0190-8, 6-3, LIPAMALIA, 02434-2 ####[facility] LABIA [id number] [place] [address] [place] [facility] Iron binding capacity [Mass/Vol] 373 ug/dL Normal 232-386 [facility] Comment on above: Order Comment: Speci men Type: BLOOD SPECIMENOrdering Facility: [facility] Address: [address] [place] [address] Performed By: #### 5 0190-8, 6-3, LIPAMALIA, 11639-2 ####[facility] LABIA [id number] [place] [id number] [place] Iron/TIBC [Molar ratio] 10.7 % Low 15.0-57.0 C [facility] Comment on above: Order Comment: Speci men Type: BLOOD SPECIMENOrdering Facility: [facility] Address: [address] [place] [address] Performed By: #### 5 0190-8, 3015-3, LIPNF, ####[facility] LABIA [id number] [address] [address] [place] LIPID PANEL, NONFASTINGon Cholesterol [Mass/Vol] 276 mg/dL High <200 [facility] Comment on above: Order Comment: Speci men Type: BLOOD SPECIMENOrdering Facility: [facility] Address: [address] [place] [address] Result Comment: <200 mg/dL, Desirable 200-239 mg/dL, Borderline high >239 mg/dL, High Performed By: #### 5 0190-8, 3016-3, LIPNF, 53313-1 ####[facility] LABCLIA [id number] [facility] [id number] [place] [address] [place] HDL CHOLESTEROL, NF 42 mg/dL Normal >39 [facility] Comment on above: Order Comment: Speci men Type: BLOOD SPECIMENOrdering Facility: [facility] Address: [address] [place] [address] Result Comment: 40-5 9 mg/dL, Acceptable >59 mg/dL, High: Negative risk factor for coronary heart disease <40 mg/dL, Low: Positive risk factor for coronary heart disease Performed By: #### 5 0190-8, 6-3, LIPNF, ####[facility] LABCLIA [id number] [facility] [id number] [place] [address] [place] LDL CHOLESTEROL CALCULATED, NF 185 mg/dL High <100 [facility] Comment on above: Order Comment: Speci men Type: BLOOD SPECIMENOrdering Facility: [facility] Address: [address] [place] [address] Result Comment: <100 mg/dL, Optimal 100-129 mg/dL, Near optimal/above optimal 130-159 mg/dL, Borderline high 160-189 mg/dL, High >189 mg/dL, Very high Secondary prevention optimal LDL Cholesterol levels are recommended to be <70 mg/dL LDL cholesterol is calculated using the Quiñones-NIH equation. Performed By: #### 5 0190-8, 3016-3, LIPNF, 26169-7 ####[facility] LABCLIA [id number] [facility] [id number] [address] [place] LDL/HDL RATIO, NF 4.40 mg/dL High <2.54 [facility] Comment on above: Order Comment: Speci men Type: BLOOD SPECIMENOrdering Facility: [facility] Address: [address] [place] [address] Result Comment: Iris spann: 1. National Cholesterol Education Program ATP III Guideline At-A-Glance Quick Desk Reference: National Heart, Lung, and Blood [place]. National Institutes of Health. 2001: NIH Publication No. 01-3305. 2. An International Atherosclerosis Society position paper: global recommendations for the management of dyslipidemia: executive summary, Atherosclerosis. 2014: 232(2):410-413. Performed By: #### 5 0190-8, 3016-3, LIPNF, 26092-3 ####[facility] LABCLIA [id number] [address] [place] NON HDL CHOL, NF 234 mg/dL High <130 [facility] Comment on above: Order Comment: Tarani cristhian Type: BLOOD SPECIMENOrdering Facility: [facility] Address: [address] [place] [address] Result Comment: <130 mg/dL, Optimal 130-159 mg/dL, Near optimal/above optimal 160-189 mg/dL, Borderline high 190-219 mg/dL, High >219 mg/dL, Very high Secondary prevention optimal non HDL Cholesterol levels are recommended to be <100 mg/dL Performed By: #### 5 0190-8, 3016-3, LIPNF, 57300-0 ####[facility] LABCLIA [id number] [place] [address] [place] T CHOL/HDL RATIO NF 6.57 mg/dL High <5.10 [facility] Comment on above: Order Comment: Tarani cristhian Type: BLOOD SPECIMENOrdering Facility: [facility] Address: [address] [place] [address] Performed By: #### 5 0190-8, 3016-3, LIPNF, 27392-2 ####[facility] LABCLIA [id number] [place] [address] [place] TRIGLYCERIDES, NF 254 mg/dL High <150 [facility] Comment on above: Order Comment: Speci men Type: BLOOD SPECIMENOrdering Facility: [facility] Address: [address] [place] [address] Result Comment: <150 mg/dL, Normal 150-199 mg/dL, Borderline high 200-499 mg/dL, High >499 mg/dL, Very high Performed By: #### 5 0190-8, 3016-3, LIPNF, 68332-9 ####[facility] LABCLIA [id number] [place] [address] [place] VLDL CHOLESTEROL, NF 52 mg/dL High <30 [facility] Comment on above: Order Comment: Speci men Type: BLOOD SPECIMENOrdering Facility: [facility] Address: [address] [place] [address] Performed By: #### 5 0190-8, 3016-3, LIPNF, 62619-2 ####[facility] LABCLIA [id number] [place] [address] [place] TSH SerPl-aCncon 06-18-2025 TSH Qn 0.318 m[IU]/L Normal 0.270-4.200 [facility] Comment on above: Order Comment: Samson morrow Type: BLOOD SPECIMENOrdering Facility: [facility] Address: [address] [place] [address] Result Comment: If t he patient is , TSH reference range varies by gestational period: First Trimester (weeks 9-12): 0.180-2.990 mIU/L Second Trimester: 0.110-3.980 mIU/L Third Trimester: 0.480-4.710 mIU/L Mango Bernard et al. A Practical Approach for the Verifications and Determination of Site- and Trimester-Specific Reference Intervals for Thyroid Function tests in . Thyroid, 2019:29:3:412-420. Ernst Gerardo, et al. 2017 Guidelines of the [place] Thyroid Association for the Diagnosis and Management of Thyroid Disease during and the . Thyroid, 2017:27:3:315-389. Performed By: #### 5 0190-8, 3016-3, LIPNF, 75203-8 ####[facility] LABCLIA [id number] [place] [address] [place] Vit B12 SerPl-mCncon 12-2 025 Cobalamin (Vitamin B12) [Mass/Vol] 173 pg/mL Low 232-1245 [facility] Comment on above: Order Comment: Speci men Type: BLOOD SPECIMENOrdering Facility: [facility] Address: [address] [place] [address] Performed By: #### 2 132-9 ####[facility] LABCLIA [id number] [address] [place] CNOVon 06-07-2025 CNOV Office Visit ([facility]) CALLBEV ([id number]) 1975 F Date Time Provider Department 06/07/25 4:30 PM KIM KEBEDE During your visit today, we recorded the following information about you: Temperature Pulse Respiration Blood pressure 97.9 degrees 95/minute 18/minute 122/78 Weight 74 kg Kim Kebede MD 06/07/2025 4:42 PM Signed Cough You have been seen for your cough. There are many possible causes of cough. Most are not dangerous. Your doctor has determined that it is OK for you to go home today. Your doctor believes your cough was caused by bacteria. Your doctor prescribed an antibiotic that will fight the bacteria. The doctor may have prescribed some medicine to help with your cough. Use the medicine as directed. YOU SHOULD SEEK MEDICAL ATTENTION IMMEDIATELY, EITHER HERE OR AT THE NEAREST EMERGENCY DEPARTMENT, IF ANY OF THE FOLLOWING OCCURS: You wheeze or have trouble breathing. You cough up mucous or lose weight for no reason. You have a fever (temperature higher than 100.4?F / 38?C) that lasts more than 5 days. You have chest pain. Your symptoms get worse or do not get better in 2 or 3 days. You have any new problems or concerns. Kim Kebede MD 06/07/2025 4:47 PM Signed [facility] Vicente Webb is a 50 year old female. Patient presents with: Ear Pain: Bilateral ear pain, fever, cough, ST, and chest congestion x 2 days Pt is a current smoker and a hx of COPD now lasrt few days uri sx cough getting worse also c/o nasal congestion ear pain and a sT and bodyaches and fever and chills declines any form of testing here for a Z antony and prednisone Ear Pain Associated symptoms include chills, congestion, coughing, fatigue, a fever and a sore throat. Pertinent negatives include no headaches. Review of Systems Constitutional: Positive for chills, fatigue and fever. HENT: Positive for congestion, ear pain, rhinorrhea and sore throat. Respiratory: Positive for cough and wheezing. Negative for shortness of breath and stridor. Neurological: Negative for dizziness and headaches. Objective BP 122/78 Pulse 95 Temp 36.6 ?C (97.9 ?F) (Tympanic) Resp 18 Wt 74 kg (163 lb 2.3 oz) LMP 07/21/2023 (Within Days) SpO2 98% BMI 29.36 kg/m? Physical Exam Vitals and nursing note reviewed. Constitutional: Appearance: Normal appearance. She is not ill-appearing. HENT: Right Ear: Tympanic membrane and ear canal normal. Left Ear: Tympanic membrane and ear canal normal. Nose: Congestion and rhinorrhea present. Mouth/Throat: Mouth: Mucous membranes are moist. Pharynx: No oropharyngeal exudate or posterior oropharyngeal erythema. Cardiovascular: Rate and Rhythm: Normal rate and regular rhythm. Heart sounds: Normal heart sounds. Pulmonary: Effort: Pulmonary effort is normal. Breath sounds: Normal breath sounds. No stridor. No wheezing, rhonchi or rales. Musculoskeletal: Cervical back: Normal range of motion and neck supple. Lymphadenopathy: Cervical: No cervical adenopathy. Neurological: Mental Status: She is alert and oriented to person, place, and time. Psychiatric: Mood and Affect: Mood normal. Behavior: Behavior normal. {ASSESSMENT/PLAN: 1. URI, acute - ICD9: 465.9, ICD10: J06.9 (primary diagnosis) Discussed with pt chances are high of a viral uri but advised to hold z antony and start prednisone for now return here as needed - AZITHROMYCIN 250 MG TABLET - PREDNISONE 20 MG TABLET 2. Chronic obstructive pulmonary disease with acute exacerbation (HCC) - ICD9: 491.21, ICD10: J44.1 Advised pt to follow up with pulmonology since no visit recently in chart - AZITHROMYCIN 250 MG TABLET - PREDNISONE 20 MG TABLET Kim Kebede MD History and Record Review External record(s) reviewed: prior outpatient record. Systemic symptoms present included: Fever chills bodyaches Differential Diagnoses - uri is more likely for the following reason(s): suggested by HANDP - pneumonia is less likely for the following reason(s): noraml exam o2 sAT normal, HANDP not suggestive Disposition The patient was discharged. Procedures Allergies As of Date: 06/07/2025 Noted Allergy Reaction DOXYCYCLINE 08/16/2006 ENTEX (PHENYLEPHRINE-GUAIFE NESIN) 10/20/2006 ERYTHROMYCIN 08/16/2006 12 - Shortness of Breath Comments: Can take zpak FLEXERIL (CYCLOBENZAPRINE HCL) 10/08/2011 3 - Cough Comments: denies OMNICEF (CEFDINIR) 07/11/2014 8 - GI Upset PENICILLIN G 08/16/2006 5 - Intolerance Comments: unknown reaction during childhood RISPERDAL (RISPERIDONE) 08/16/2006 7 - Swelling ULTRAM (TRAMADOL HCL) 08/16/2006 7 - Swelling VALTREX (VALACYCLOVIR HCL) 08/16/2006 2 - Rash Date Reviewed: 06/07/2025 Reviewed by: Maria R Long LPN - Fully Assessed Reason for Visit: Ear Pain [817] Cmt: Bilateral ear pain, fever, cough, ST, and chest conge (more content not included)... Normal [facility] Stanley 02-04-2025 BRET Telephone (CURTIS) CALL,BEV Gerardo ([id number]) 1975 F Date Time Provider Department 02/04/25 DEVIN DONALD HEMAWS During your visit today, we recorded the following information about you: Devin Donald DO 02/04/2025 1:16 PM Signed Can let her know all the molecular testing was negative for any chronic form of leukemia or myeloproliferative disorder. Iron low. Recommend a trial of OTC ferrous sulfate 325 mg one tablet every other day. Since she is over the age of 45, recommend screening colonoscopy. She can follow-up with PCPs team in a couple months for a recheck of iron and CBC. DO Thuy Florez Melanie, LPN 02/04/2025 1:29 PM Signed Patient is aware of all information/instructi ons. She is aware to begin OTC ferrous sulfate 325 mg 1 tablet every other day. She will follow up with her PCP for labs and colonoscopy. Anne Olsen LPN Allergies As of Date: 02/04/2025 Noted Allergy Reaction DOXYCYCLINE 08/16/2006 ENTEX (PHENYLEPHRINE-GUAIFE NESIN) 10/20/2006 ERYTHROMYCIN 08/16/2006 12 - Shortness of Breath Comments: Can take zpak FLEXERIL (CYCLOBENZAPRINE HCL) 10/08/2011 3 - Cough Comments: denies OMNICEF (CEFDINIR) 07/11/2014 8 - GI Upset PENICILLIN G 08/16/2006 5 - Intolerance Comments: unknown reaction during childhood RISPERDAL (RISPERIDONE) 08/16/2006 7 - Swelling ULTRAM (TRAMADOL HCL) 08/16/2006 7 - Swelling VALTREX (VALACYCLOVIR HCL) 08/16/2006 2 - Rash Date Reviewed: 01/29/2025 Reviewed by: Amita Pope APRN.OXYGEN FURNACE OPERATOR - Fully Assessed Reason for Visit: Results [95] Prescriptions as of 02/04/2025 - ferrous sulfate 325 mg (65 mg iron) tablet Take 1 tablet by mouth once daily. - venlafaxine (EFFEXOR) 50 mg tablet Take 1 tablet by mouth once daily. - gabapentin (NEURONTIN) 400 mg capsule Take 1 capsule by mouth three times a day for 180 days. - venlafaxine ER (EFFEXOR XR) 150 mg 24 hr capsule Take 1 capsule by mouth once daily. - pantoprazole DR (PROTONIX) 40 mg tablet TAKE 1 TABLET BY MOUTH ON AN EMPTY STOMACH 1/2 HOUR BEFORE A MEAL TWICE DAILY - albuterol HFA (VENTOLIN HFA) 90 mcg/actuation inhaler Inhale 2 Puffs as instructed every 4 hours as needed for wheezing/shortness of breath. - cetirizine (ZYRTEC) 10 mg tablet Take 1 tablet by mouth once daily. - nitroglycerin sublingual (NITROQUICK) 0.4 mg SL tablet Dissolve 1 tablet under the tongue every 5 minutes as needed for chest pain. - atorvastatin (LIPITOR) 40 mg tablet Take 1 tablet by mouth once daily. - acetaminophen (TYLENOL) 500 mg tablet Take 2 tablets by mouth every 8 hours as needed for pain. - COMBIVENT RESPIMAT 20-100 mcg/actuation inhaler INHALE 1 PUFF INSTRUCTED FOUR TIMES DAILY NEEDED. Problem List As Of Date 02/04/2025 Noted Resolved Grief reaction [F43.21] 08/16/2006 Anxiety state [F41.1] 08/16/2006 Unspecified gastritis and gastroduodenitis with*08/16/2006 04/27/2017 Allergic rhinitis, cause unspecified [J30.9] 08/16/2006 04/27/2017 Lumbago [M54.50] 08/16/2006 Tobacco use disorder [F17.200] 08/16/2006 Fever and other physiologic disturbances of tem*07/04/2008 08/09/2012 PAIN ABDOMEN( Epigastric) [R10.13] 07/04/2008 08/09/2012 ABNORMAL XRAY ABDOMINAL [R93.5] 10/08/2008 09/24/2014 NAUSEA [R11.0] 10/08/2008 08/09/2012 ABDOMINAL PAIN( Periumbilical) [R10.33] 10/08/2008 08/09/2012 Cellulitis [L03.90] 09/17/2009 04/27/2017 Routine general medical examination at [facility]*01/15/2011 08/09/2012 Class: Chronic Routine gynecological examination [Z01.419] 01/15/2011 08/09/2012 Class: Chronic GERD (gastroesophageal reflux disease) [K21.9] 01/15/2011 PUD (peptic ulcer disease) [K27.9] 01/15/2011 Tinea versicolor [B36.0] 01/29/2011 09/24/2014 Post-inflammatory hyperpigmentation [L81.0] 01/29/2011 09/24/2014 Pruritus [L29.9] 01/29/2011 09/24/2014 Hyperlipidemia [E78.5] 05/22/2014 Coronary artery disease involving lower [place]*06/06/2014 Lymphadenopathy [R59.1] 06/06/2014 04/27/2017 Herpes simplex infection [B00.9] 03/18/2016 04/27/2017 Marijuana use [F12.90] 06/08/2018 Mild intermittent asthma with acute exacerbatio* 8 Chest pain [R07.9] 08/30/2018 08/30/2018 Polysubstance abuse (HCC) [F19.10] 08/30/2018 Primary hypertension [I10] 08/30/2018 Simple endometrial hyperplasia without atypia [*04/27/2019 Raynaud's phenomenon (by history or observed) [* COPD with chronic bronchitis (HCC) [J44.89] Emphysema (subcutaneous) (surgical) resulting f* Centrilobular emphysema (HCC) [J43.2] Tobacco use disorder, continuous [F17.209] Abscess of left hand [L02.512] 11/24/2022 Encounter Status:Closed by ANNE OLSEN on 02/04/[address] [facility] CNOVon 01-29-2025 CNOV Office Visit (FAMPWS ) CALLBEV ([id number]) 1975 F Date Time Provider Department 01/29/25 1:20 PM AMITA POPE FAMPWS During your visit today, we recorded the following information about you: Temperature Pulse Blood pressure Weight 97 degrees 90/minute 134/82 75.3 kg Amita Pope, DIRECTOR OF CARDIAC REHABILITATION.OXYGEN FURNACE OPERATOR 01/29/2025 1:25 PM Signed This is a 50 year old female who presents today with: Patient presents with: Follow Up HISTORY OF PRESENT ILLNESS: Bev Webb is a 50 year old female. Patient presents with: Follow Up Feeling a little better Some iron deficiency- saw Dr. Donald who is doing some further testing PAST MEDICAL HISTORY: PAST MEDICAL HISTORY Diagnosis Date Abnormal mammogram, unspecified LEFT BREAST Abnormal Pap smear and cervical HPV (human papillomavirus) CAD (coronary artery disease) 2103 diffuse moderate CAD in the left main and RCA-40-50%, seeing Dr. Chase Centrilobular emphysema (HCC) Chronic cholecystitis 08/24/07 Chronic depressive personality disorder Chronic gastric ulcer without mention of hemorrhage, perforation, without mention of obstruction COPD with chronic bronchitis (HCC) Generalized anxiety disorder HTN (hypertension) Hyperlipidemia Incisional hernia without mention of obstruction or gangrene Irritable bowel syndrome Lumbago PONV (postoperative nausea and vomiting) Raynaud's phenomenon (by history or observed) Tobacco use disorder, continuous Daily smoker since age 16. PAST SURGICAL HISTORY Procedure Laterality Date APPENDECTOMY ENDOMETRIAL BX W/WO ENDOCERVIX BX W/O DILAT SPX 01/01/2009 Menorrhagia ESOPHAGOGASTRODUODENO SCOPY TRANSORAL DIAGNOSTIC 09/26/2012 EGD EXC BREAST LES PREOP PLMT RAD MARKER OPEN 1 LES 08/29/2009 left breast HEART CATHETERIZATION 11/07/2013 IMPLANT MESH OPN HERNIA RPR/DEBRIDEMENT CLOSURE 07/01/2008 LAPAROSCOPIC APPENDECTOMY LAPS SURG CHOLECYSTECTOMY W/CHOLANGIOGRAPHY 08/24/2007 LIG/TRNSXJ FLP TUBE ABDL/VAG APPR UNI/BI PREOP PLACEMENT NEEDLE LOC 08/29/2009 left breast REP INIT INCI/ VENTRAL HERNIA 11/27/2020 REPAIR FIRST ABDOMINAL WALL HERNIA 07/01/2008 REVISE MEDIAN N/CARPAL TUNNEL SURG Left 11/10/2022 Left CTR SEPTOPLASTY/SUBMUCOUS RESECJ W/WO CARTILAGE GRF 2001 +/- Akhil STEREOTACTIC CORE BIOPSY 07/09/2009 LEFT BREAST ALLERGIES Doxycycline, Entex [Phenylephrine-Guaife nesin], Erythromycin, Flexeril [Cyclobenzaprine Hcl], Omnicef [Cefdinir], Penicillin G, Risperdal [Risperidone], Ultram [Tramadol Hcl], and Valtrex [Valacyclovir Hcl] MEDICATIONS Current Outpatient Medications Medication Sig tiZANidine (ZANAFLEX) 4 mg tablet Take 1 tablet by mouth every 8 hours as needed (muscle spasms). venlafaxine (EFFEXOR) 50 mg tablet Take 1 tablet by mouth once daily. gabapentin (NEURONTIN) 400 mg capsule Take 1 capsule by mouth three times a day for 180 days. venlafaxine ER (EFFEXOR XR) 150 mg 24 hr capsule Take 1 capsule by mouth once daily. pantoprazole DR (PROTONIX) 40 mg tablet TAKE 1 TABLET BY MOUTH ON AN EMPTY STOMACH 1/2 HOUR BEFORE A MEAL TWICE DAILY albuterol HFA (VENTOLIN HFA) 90 mcg/actuation inhaler Inhale 2 Puffs as instructed every 4 hours as needed for wheezing/shortness of breath. cetirizine (ZYRTEC) 10 mg tablet Take 1 tablet by mouth once daily. nitroglycerin sublingual (NITROQUICK) 0.4 mg SL tablet Dissolve 1 tablet under the tongue every 5 minutes as needed for chest pain. atorvastatin (LIPITOR) 40 mg tablet Take 1 tablet by mouth once daily. acetaminophen (TYLENOL) 500 mg tablet Take 2 tablets by mouth every 8 hours as needed for pain. COMBIVENT RESPIMAT 20-100 mcg/actuation inhaler INHALE 1 PUFF INSTRUCTED FOUR TIMES DAILY NEEDED. No current facility-administered medications for this visit. FAMILY HISTORY Problem Relation Age of Onset Hypertension Mother Diabetes Mother Systemic Lupus Erythematosus Mother Alcohol/Drug Father (cardiac issues from this) Diabetes Father Allergies Father Cancer Father Esophageal Diabetes Sister Diabetes Brother Coronary Artery Disease Maternal Grandmother Emphysema Paternal Grandfather Asthma Son Cancer Other All through my father's family. Social History Tobacco Use Smoking status: Every Day Current packs/day: 1.00 Average packs/day: 1 pack/day for 34.0 years (34.0 ttl pk-yrs) Types: Cigarettes Start date: 01/20/1991 Smokeless tobacco: Never Tobacco comments: Father smoked in childhood home, currently lives with a smoker who is willing to quit with patient. Vaping Use Vaping status: Never Used Substance Use Topics Alcohol use: No Drug use: Yes Types: Marijuana Comment: Smokes 2-3 times a week Tongue feeling better Sinus better No fever or chills Some body aches No headaches Ear pain is better EXAM: BP 144/80 Pulse 90 Temp 36.1 ?C (97 ?F) (Left Tympanic) (more content not included)... Normal [facility] BCR/ABL1 P190 NCN P210 % IS MR BLOODon 01-25-2025 BCR/ABL1 P190 NCN(%BCR/ABL1:ABL1) N/A Normal [facility] Comment on above: Order Comment: Speci men Type: BLOOD SPECIMENOrdering Facility: [facility] Address: [address] [place] [address] Performed By: #### I SMRNCNPB ####[facility] LABCLIA [id number] [facility] [place] [address] [place]#### [id number] ####[facility] LIMSCLIA [id number] [place] [address] [place] BCR/ABL1 P210 %IS N/A Normal [facility] Comment on above: Order Comment: Speci men Type: BLOOD SPECIMENOrdering Facility: [facility] Address: [address] [place] [address] Performed By: #### I SMRNCNPB ####[facility] LABCLIA [id number] [place] [address] [place]#### [id number] ####[facility] LIMSCLIA [id number] [place] [address] [place] BCR/ABL1 P210 MR N/A Normal [facility] Comment on above: Order Comment: Speci men Type: BLOOD SPECIMENOrdering Facility: [facility] Address: [address] [place] [address] Performed By: #### I SMRNCNPB ####[facility] LABCLIA [id number] [place] [address] [place]#### [id number] ####[facility] LIMSCLIA [id number] [place] [id number] [place] BCR/ABL1 P210 AND P190 DIAGN OSTIC PCR BLOODon 01-25-2025 BCR/ABL1 P210 AND P190 DIAGNOSTIC PCR BLOOD RESULT Normal [facility] Comment on above: Order Comment: Speci men Type: BLOOD SPECIMENOrdering Facility: [facility] Address: [address] [place] [address] Result Comment: BCR/ ABL1 p210 and p190 Diagnostic PCR Laboratory Accession Number: [id number] Sample Type: Peripheral Blood Result: NOT DETECTED; negative for BCR/ABL1 p210 and p190 fusion transcripts. P190 NCN: N/A P210 MR: N/A %IS: N/A Interpretation: RT-PCR studies are negative for BCR/ABL1 p210 and p190 fusion transcripts. Very rare fusion transcripts, such as those involving exon 3 of ABL1 and alternate BCR fusion sites including the micro- breakpoint cluster region (p230 transcript), are not detected by this test. If clinical suspicion persists despite a negative test, the possibility of these very rare fusions can be further evaluated. In these cases, a bone marrow biopsy with cytogenetic karyotyping may be performed, followed by other more specific testing as clinically warranted and in consultation with the case hematopathologist and/or Molecular Pathology sign-out Staff. Limitations: This test detects the most common fusion transcripts, p210 (e13a2, e14a2) and p190 (e1a2, e1a3), which combined account for about 98-99 percent of BCR/ABL1 positive chronic myeloid leukemia and B-acute lymphoblastic leukemia/lymphoma cases. Other very rare fusion transcripts, such as those involving exon 3 of ABL1 and alternate BCR fusion sites including the micro-breakpoint cluster region (p230 transcript), are not detected by this test. Methodology: RNA was extracted from this sample, and cDNA prepared by reverse dairy lab technician. Real time PCR was performed in two separate reactions, using primers for e13a2 and/or e14a2 BCR/ABL1 fusion transcripts and ABL1 transcripts for p210 detection and primers for e1a2 BCR/ABL1 fusion transcripts and ABL1 transcripts for p190 detection (QuantideX BCR/ABL IS assay, [employer], [place], [place]). This assay has a limit of quantification and limit of detection of 0.002 percent IS or MR4.7 for p210 fusion transcripts, and a limit of quantification of 0.0036 percent (LR4.4) and limit of detection of 0.0025 percent (LR4.6) for p190 transcripts. Levels detected above or below the assays' limits of quantitation are resulted as DETECTED and quantitation indicated as greater than or less than the limits of quantitation for the IS percent, MR level and NCN, respectively. Disclaimer: This test was developed and its performance characteristics determined by [facility]. It has not been cleared or approved by the FDA. [facility] is regulated under CLIA as certified to perform high-complexity testing. This test is used for clinical purposes. It should not be regarded as investigational or for research. Testing and interpretation performed at [facility], [address] [place] [address]. CLIA Number: [id number] As reviewed by Magnolia Christopher MD, PhD Performed By: #### I SMRNCNPB ####[facility] LABCLIA [id number] [place] [address] [place]#### BCRPB1 ####[facility] LIMSCLIA [id number] [address] [place] CBC W Ordered Manual Differe ntial panel (Bld)on 01-25-2025 Basophils (Bld) [#/Vol] 0.13 10*3/uL High <0.11 [facility] Comment on above: Order Comment: Speci men Type: BLOOD SPECIMENOrdering Facility: [facility] Address: [address] [place] [address] Performed By: #### S TFREV ####[facility] LABCLIA [id number] [place] [address] [place]#### 84910-6 ####[facility] [id number] [place] [address] [place] [facility] LABCLIA [id number] [address] Basophils/100 WBC (Bld) 1.1 % Normal C [facility] Comment on above: Order Comment: Speci men Type: BLOOD SPECIMENOrdering Facility: [facility] Address: [address] [place] [address] Performed By: #### S TFREV ####[facility] LABCLIA [id number] [place] [address] [place]#### 92177-2 ####[facility] [id number] [place] [address] [place] [facility] LABCLIA [id number] [place] [address] [place] Differential cell count method Nom (Bld) Auto Normal [facility] Comment on above: Order Comment: Speci men Type: BLOOD SPECIMENOrdering Facility: [facility] Address: [address] [place] [address] Performed By: #### S TFREV ####[facility] LABCLIA [id number] [place] [address] [place]#### 66341-2 ####[facility] [id number] [place] [address] [place] [facility] LABCLIA [id number] [place] [address] [place] Eosinophils (Bld) [#/Vol] 0.49 10*3/uL High <0.46 [facility] Comment on above: Order Comment: Speci men Type: BLOOD SPECIMENOrdering Facility: [facility] Address: [address] [place] [address] Performed By: #### S TFREV ####[facility] LABCLIA [id number] [place] [address] [place]#### 96555-7 ####[facility] MILLTOWNCLIA [id number] [place] [address] [place] [facility] LABCLIA [id number] [address] [address] [place] Eosinophils/100 WBC (Bld) 4.3 % Normal [facility] Comment on above: Order Comment: Speci men Type: BLOOD SPECIMENOrdering Facility: [facility] Address: [address] [place] [address] Performed By: #### S TFREV ####[facility] LABCLIA [id number] [place] [id number] [place]#### 98956-5 ####[facility] [id number] [address] STATES [facility] LABCLIA [id number] [place] [address] [place] Erythrocyte distribution width (RBC) [Ratio] 17.0 % High 11.5-15.0 [facility] Comment on above: Order Comment: Speci men Type: BLOOD SPECIMENOrdering Facility: [facility] Address: [address] [place] [address] Performed By: #### S TFREV ####[facility] LABCLIA [id number] [place] [address] [place]#### 90611-2 ####[facility] [id number] [address] STATES OF [facility] LABCLIA [id number] [address] [address] [place] Hematocrit (Bld) [Volume fraction] 42.4 % Normal 36.0-46.0 [facility] Comment on above: Order Comment: Speci men Type: BLOOD SPECIMENOrdering Facility: [facility] Address: [address] [place] [address] Performed By: #### S TFREV ####[facility] LABCLIA [id number] [facility] [address], [facility] [place]#### 12303-3 ####[facility]CL[facility] [id number] [address] STATES OF [facility] LABCLIA [id number] [facility] [address] [place] [address] [place] Hemoglobin (Bld) [Mass/Vol] 13.3 g/dL Normal 11.5-15.5 [facility] Comment on above: Order Comment: Speci men Type: BLOOD SPECIMENOrdering Facility: [facility] Address: [address] [place] [address] Performed By: #### S TFREV ####[facility] LABCLIA [id number] [place] [address] [place]#### 10181-3 ####[facility] [id number] [address] STATES [facility] LABCLIA [id number] [place] [address] [place] Immature granulocytes (Bld) [#/Vol] 0.05 10*3/uL Normal <0.10 [facility] Comment on above: Order Comment: Speci men Type: BLOOD SPECIMENOrdering Facility: [facility] Address: [address] [place] [address] Performed By: #### S TFREV ####[facility] LABCLIA [id number] [place] [id number] [place]#### 64580-2 ####[facility] [id number] [address] STATES OF [facility] LABCLIA [id number] [facility] [place] [address] [place] Immature granulocytes/100 WBC (Bld) 0.4 % Normal [facility] Comment on above: Order Comment: Speci men Type: BLOOD SPECIMENOrdering Facility: [facility] Address: [address] [place] [address] Performed By: #### S TFREV ####[facility] LABCLIA [id number] [place] [address] [place]#### 04937-2 ####[facility] [id number] [address] STATES [facility] LABCLIA [id number] [place] [address] [place] Lymphocytes (Bld) [#/Vol] 3.29 10*3/uL Normal 1.00-4.00 [facility] Comment on above: Order Comment: Speci men Type: BLOOD SPECIMENOrdering Facility: [facility] Address: [address] [place] [address] Performed By: #### S TFREV ####[facility] LABCLIA [id number] [place] [address] [place]#### 16743-8 ####[facility] [id number] [address] STATES OF [facility] LABCLIA [id number] [place] [address] [place] Lymphocytes/100 WBC (Bld) 28.7 % Normal [facility] Comment on above: Order Comment: Speci men Type: BLOOD SPECIMENOrdering Facility: [facility] Address: [address] [place] [address] Performed By: #### S TFREV ####[facility] LABCLIA [id number] [place] [address] [place]#### 35241-9 ####[facility] [id number] [address] STATES [facility] LABCLIA [id number] [place] [address] [place] MCH (RBC) [Entitic mass] 27.5 pg Normal 26.0-34.0 [facility] Comment on above: Order Comment: Speci men Type: BLOOD SPECIMENOrdering Facility: [facility] Address: [address] [place] [address] Performed By: #### S TFREV ####[facility] LABIA [id number] [place] [address] [place]#### 22250-8 ####[facility] [id number] [address] STATES [facility] LABIA [id number] [place] [address] [place] MCHC (RBC) [Mass/Vol] 31.4 g/dL Normal 30.5-36.0 [facility] Comment on above: Order Comment: Speci men Type: BLOOD SPECIMENOrdering Facility: [facility] Address: [address] [place] [address] Performed By: #### S TFREV ####[facility] LABIA [id number] [place] [address] [place]#### 05987-8 ####[facility] [id number] [address] STATES OF [facility] LABIA [id number] [place] [address] [place] MCV (RBC) [Entitic vol] 87.8 fL Normal 80.0-100.0 C [facility] Comment on above: Order Comment: Speci men Type: BLOOD SPECIMENOrdering Facility: [facility] Address: [address] [place] [address] Performed By: #### S TFREV ####[facility] LABCLIA [id number] [address], [place] [address] [place]#### 71070-5 ####[facility] [id number] [place] [address] [place] [facility] LABCLIA [id number] [place] [address] [place] Monocytes (Bld) [#/Vol] 0.81 10*3/uL Normal <0.87 [facility] Comment on above: Order Comment: Speci men Type: BLOOD SPECIMENOrdering Facility: [facility] Address: [address] [place] [address] Performed By: #### S TFREV ####[facility] LABCLIA [id number] [place] [address] [place]#### 60033-3 ####[facility] [id number] [address] LABCLIA [id number] [place] [address] [place] Monocytes/100 WBC (Bld) 7.1 % Normal C [facility] Comment on above: Order Comment: Speci men Type: BLOOD SPECIMENOrdering Facility: [facility] HOSPITAL Address: [address] [place] [address] Performed By: #### S TFREV ####[facility] LABCLIA [id number] [place] [address] [place]#### 03027-8 ####[facility] [id number] [place] [address] [place] [facility] LABCLIA [id number] [address] [address] [place] Neutrophils (Bld) [#/Vol] 6.69 10*3/uL Normal 1.45-7.50 [facility] Comment on above: Order Comment: Speci men Type: BLOOD SPECIMENOrdering Facility: [facility] Address: [address] [place] [address] Performed By: #### S TFREV ####[facility] LABCLIA [id number] [place] [address] [place]#### 21123-7 ####[facility] [id number] [address] LABCLIA [id number] [place] [address] [place] Neutrophils/100 WBC (Bld) 58.4 % Normal [facility] Comment on above: Order Comment: Speci men Type: BLOOD SPECIMENOrdering Facility: [facility] Address: [address] [place] [address] Performed By: #### S TFREV ####[facility] LABCLIA [id number] [place] [address] [place]#### 81696-4 ####[facility] [id number] [address] STATES OF [facility] LABCLIA [id number] [place] [address] [place] Nucleated RBC (Bld) [#/Vol] 10*3/uL Normal <0.01 [facility] Comment on above: Order Comment: Speci men Type: BLOOD SPECIMENOrdering Facility: [facility] Address: [address] [place] [address] Performed By: #### S TFREV ####[facility] LABCLIA [id number] [place] [address] [place]#### 56270-2 ####[facility] [id number] [place] [address] [place] [facility] LABCLIA [id number] [place] [address] [place] Nucleated RBC/100 WBC (Bld) [Ratio] 0.0 /100 WBC Normal [facility] Comment on above: Order Comment: Speci men Type: BLOOD SPECIMENOrdering Facility: [facility] Address: [address] [place] [address] Performed By: #### S TFREV ####[facility] LABCLIA [id number] [place] [address] [place]#### 19339-5 ####[facility] [id number] [address] STATES OF [facility] LABCLIA [id number] [place] [address] [place] Platelet mean volume (Bld) [Entitic vol] 9.4 fL Normal 9.0-12.7 [facility] Comment on above: Order Comment: Speci men Type: BLOOD SPECIMENOrdering Facility: [facility] Address: [address] [place] [address] Performed By: #### S TFREV ####[facility] LABCLIA [id number] [place] [address] [place]#### 08623-3 ####[facility] [id number] [place] [address] [place] [facility] LAB[facility] [id number] [place] [address] [place] Platelets (Bld) [#/Vol] 388 10*3/uL Normal 150-400 [facility] Comment on above: Order Comment: Speci men Type: BLOOD SPECIMENOrdering Facility: [facility] Address: [address] [place] [address] Performed By: #### S TFREV ####[facility] LABCLIA [id number] [place] [address] [place]#### 01122-6 ####[facility] [id number] [place] [address] [place] [facility] LABCLIA [id number] [place] [address] [place] RBC (Bld) [#/Vol] 4.83 10*6/uL Normal 3.90-5.20 [facility] Comment on above: Order Comment: Speci men Type: BLOOD SPECIMENOrdering Facility: [facility] Address: [address] [place] [address] Performed By: #### S TFREV ####[facility] LABCLIA [id number] [place] [address] [place]#### 82534-2 ####[facility] [id number] [place] [address] [place] [facility] LABCLIA [id number] [place] [address] [place] WBC (Bld) [#/Vol] 11.46 10*3/uL High 3.70-11.00 [facility] Comment on above: Order Comment: Speci men Type: BLOOD SPECIMENOrdering Facility: [facility] Address: [address] [place] [address] Performed By: #### S TFREV ####[facility] LABCLIA [id number] [place] [address] [place]#### 82472-0 ####[facility] [id number] [place] [id number] [place] [address] OF [facility] LABCLIA [id number] REJI [place] [id number] [facility] CNOVSPon 01-25-2025 CNOVSP Visit (SP) Office (HEMYANICK) CALL,BEV Gerardo ([id number]) 1975 F Date Time Provider Department 01/25/25 1:30 PM DEVIN DONALD During your visit today, we recorded the following information about you: Temperature Pulse Blood pressure Weight 98.5 degrees 119/minute 167/93 77.1 kg Height 1.588 m Devin Donald DO 01/25/2025 2:13 PM Signed Patient referred by Amita Pope APRN.CNP for leukocytosis. HPI: The patient is a 50-year-old female with a past medical history as outlined below. Chronic mild leukocytosis with neutrophilia and mild absolute monocytosis as well as thrombocytosis. Labs were reviewed dating back to at least October 2022. Fatigued quite a bit. No menses since 11/2024. Used to have heavy periods. Passed clots. No h/o blood donation. One child. One miscarriage. Smokes about 1 ppd. Occasional wheezing. Lives with mom--hears her snoring--patient can wake herself snoring. Upper and lower plates. Recent sinusitis. Several recent courses of antibiotics. Currently on Bactrim. Symptoms better. PAST MEDICAL HISTORY Diagnosis Date Abnormal mammogram, unspecified LEFT BREAST Abnormal Pap smear and cervical HPV (human papillomavirus) CAD (coronary artery disease) 2103 diffuse moderate CAD in the left main and RCA-40-50%, seeing Dr. Chase Centrilobular emphysema (HCC) Chronic cholecystitis 08/24/07 Chronic depressive personality disorder Chronic gastric ulcer without mention of hemorrhage, perforation, without mention of obstruction COPD with chronic bronchitis (HCC) Generalized anxiety disorder HTN (hypertension) Hyperlipidemia Incisional hernia without mention of obstruction or gangrene Irritable bowel syndrome Lumbago PONV (postoperative nausea and vomiting) Raynaud's phenomenon (by history or observed) Tobacco use disorder, continuous Daily smoker since age 16. PAST SURGICAL HISTORY Procedure Laterality Date APPENDECTOMY ENDOMETRIAL BX W/WO ENDOCERVIX BX W/O DILAT SPX 01/01/2009 Menorrhagia ESOPHAGOGASTRODUODENO SCOPY TRANSORAL DIAGNOSTIC 09/26/2012 EGD EXC BREAST LES PREOP PLMT RAD MARKER OPEN 1 LES 08/29/2009 left breast HEART CATHETERIZATION 11/07/2013 IMPLANT MESH OPN HERNIA RPR/DEBRIDEMENT CLOSURE 07/01/2008 LAPAROSCOPIC APPENDECTOMY LAPS SURG CHOLECYSTECTOMY W/CHOLANGIOGRAPHY 08/24/2007 LIG/TRNSXJ FLP TUBE ABDL/VAG APPR UNI/BI PREOP PLACEMENT NEEDLE LOC 08/29/2009 left breast REP INIT INCI/ VENTRAL HERNIA 11/27/2020 REPAIR FIRST ABDOMINAL WALL HERNIA 07/01/2008 REVISE MEDIAN N/CARPAL TUNNEL SURG Left 11/10/2022 Left CTR SEPTOPLASTY/SUBMUCOUS RESECJ W/WO CARTILAGE GRF 2001 +/- Akhil STEREOTACTIC CORE BIOPSY 07/09/2009 LEFT BREAST ALLERGIES Allergen Reactions Doxycycline Entex [Phenylephrin* Erythromycin Shortness of Breath Can take zpak Flexeril [Cyclobenz* Cough denies Omnicef [Cefdinir] GI Upset Penicillin G Intolerance unknown reaction during childhood Risperdal [Risperid* Swelling Ultram [Tramadol Hc* Swelling Valtrex [Valacyclov* Rash Social History Tobacco Use Smoking status: Every Day Current packs/day: 1.00 Average packs/day: 1 pack/day for 34.0 years (34.0 ttl pk-yrs) Types: Cigarettes Start date: 01/20/1991 Smokeless tobacco: Never Tobacco comments: Father smoked in childhood home, currently lives with a smoker who is willing to quit with patient. Vaping Use Vaping status: Never Used Substance Use Topics Alcohol use: No Drug use: Yes Types: Marijuana Comment: Smokes 2-3 times a week FAMILY HISTORY Problem Relation Age of Onset Hypertension Mother Diabetes Mother Systemic Lupus Erythematosus Mother Alcohol/Drug Father (cardiac issues from this) Diabetes Father Allergies Father Cancer Father Esophageal Coronary Artery Disease Maternal Grandmother Emphysema Paternal Grandfather Asthma Son Diabetes Sister Diabetes Brother Cancer Other All through my father's family. REVIEW OF SYSTEMS: Constitutional: No episodes of fever and night sweats. Normal appetite. Neuro: No BHAKTA, vertigo, dizziness and imbalance. No symptoms of neuropathy. HEENT: No recent change in voice, vision or hearing. Resp: No hemoptysis. No shortness of breath at rest. CVS: No exertional chest pain, PND, orthopnea and LE edema. GI: No reflux, n/v, change in bowel habits or abdominal pain. : No dysuria or gross hematuria. Endo: No hot flashes. No polyuria and polydipsia. No heat and cold intolerance. Musculoskeletal: No bone, back, joint and muscular pain. Derm: No current rash. No history of jaundice or diffuse pruritis. Heme: No unusual bleeding and unexplained bruising. Psych: Normal mood. PHYSICAL EXAM: Vitals: Blood pressure 167/93, pulse 119, temperature 36.9 ?C (98.5 ?F), temperature source Temporal, height 158.8 cm (5' 2.5), weight 77.1 (more content not included)... Normal [facility] Ferritin SerPl-mCncon 2024 Ferritin [Mass/Vol] 20.8 ng/mL Normal 14.7-205.1 [facility] Comment on above: Order Comment: Samson morrow Type: BLOOD SPECIMENOrdering Facility: [facility] Address: [address] [place] [address] Performed By: #### 2 276-4, 50121-5 ####[facility] LABCLIA [id number] [place] [address] [place] Iron and Iron binding capaci ty panelon 01-25-2025 Iron [Mass/Vol] 37 ug/dL Low 41-186 [facility] Comment on above: Order Comment: Tarani men Type: BLOOD SPECIMENOrdering Facility: [facility] Address: [address] [place] [address] Performed By: #### 2 276-4, 15005-4 ####[facility] LABCLIA [id number] [place] [id number] [place] Iron binding capacity [Mass/Vol] 477 ug/dL High 232-386 [facility] Comment on above: Order Comment: Specjuancarlos morrow Type: BLOOD SPECIMENOrdering Facility: [facility] Address: [address] [place] [address] Performed By: #### 2 276-4, 05782-5 ####[facility] LABIA [id number] [place] [id number] [place] Iron/TIBC [Molar ratio] 7.8 % Low 15.0-57.0 [facility] Comment on above: Order Comment: Samson morrow Type: BLOOD SPECIMENOrdering Facility: [facility] Address: [address] [place] [address] Performed By: #### 2 276-4, 31624-6 ####[facility] [id number] [address] OF [facility] MYELOPROLIFERATIVE NEOPLASM PANEL BLOODon 01-25-2025 MYELOPROLIFERATIVE NEOPLASM PNL PERIPHERAL BLOOD Normal [facility] Comment on above: Order Comment: Samson morrow Type: BLOOD SPECIMENOrdering Facility: [facility] Address: [address] [place] [address] Result Comment: Myel oproliferative Neoplasm Panel Laboratory Accession Number: [id number] Sample Type: Peripheral Blood Result: CALR - No variant detected (Reference sequence: [id number]). JAK2 - No variant detected (Reference sequence: [id number]). MPL - No variant detected (Reference sequence: [id number]). Interpretation: No variants were identified in CALR exon 9, JAK2 exons 12-16 or MPL exons 10 and 11. This result does not exclude the possibility of a myeloproliferative neoplasm. If clinically indicated, additional testing for a broader panel of myeloid neoplasm-associated mutations (i.e., Hematologic Neoplasms NGS panel) may be helpful to further assess for clonal hematopoiesis. Methodology: Genomic DNA extracted from blood or bone marrow was subject to an amplicon based method to enrich for CALR exon 9, JAK2 exons 12-16 and MPL exons 10 and 11, including the flanking canonical splicing sites. Pair-end DNA sequencing was performed on the Illumina instrument ([place], [place]). A customized bioinformatic pipeline was used to align the sequencing reads to the reference human genome (GRCh37/hg19). Benign common polymorphisms are not reported. Limitations: Sequence changes outside the analyzed regions, including intronic, noncoding, and splice-site variants, will not be identified by this test. The lower limit of detection of this assay is approximately 1% allele proportion for the JAK2 V617F, JAK2 exon 12, CALR Type 1 (p.M774Tyk87, c.1099_1150del) and Type 2 (p.R722Lba95, c.1154_1155insTTGTC), MPL W515 variants and approximately 5% allele proportion for all other variants. Variants below these limits of detection may be reported at the discretion of the molecular pathology professional staff if the technical quality of the sequencing is sufficient at that location and the call is unequivocal. Common germline polymorphisms are considered to represent wild type sequence and are not included in this report. The presence of nucleotide polymorphisms or variants at the annealing sites of the primers used in amplification and sequencing may cause allele drop-outs, hence a false negative result is possible. Disclaimer: This test was developed and its performance characteristics determined by [facility]. It has not been cleared or approved by the FDA. [facility] is regulated under CLIA as certified to perform high-complexity testing. This test is used for clinical purposes. It should not be regarded as investigational or for research. Testing and interpretation performed at [facility], [address] [place] [address]. CLIA Number: [id number] References: 1) Maria DA, Saman A, aHven R, Joon J, Heath MJ, Mary Siu MM, et al. The 2016 revision to the World Health Organization (WHO) classification of myeloid neoplasms and acute leukemia. Blood 2016;127: 2391-405. 2) NCCN Guidelines, Myeloproliferative Neoplasms, Version 2.2018. 3) Mariam K, Krishna WRIGHT. Genomics of Myeloproliferative Neoplasms. J Clin Oncol. 2017 Jan 20;35(9):947-954. As reviewed by Adrianna Soni, PhD, FACMG Performed By: #### M PNP ####[facility] LIMSCLIA [id number] [address] PATHOLOGIST INTERPRETATION C BC/DIFFon 01-25-2025 Floor Manager review Corey (Unsp spec) [Interp] No review performed. Normal [facility] Comment on above: Order Comment: Speci men Type: BLOOD SPECIMENOrdering Facility: [facility] Address: [address] [place] [address] Performed By: #### S TFREV ####[facility] LABCLIA [id number] [address] STATES [facility]#### 31084-1 ####[facility] [id number] [address] LABCLIA [id number] [address] STAFF REVIEW, CBCDIF Normal [facility] Comment on above: Order Comment: Speci men Type: BLOOD SPECIMENOrdering Facility: [facility] Address: [address] [place] [address] Result Comment: The Pathologist Interpretation on this sample was cancelled because the hematology analyzer did not flag any parameters as requiring manual review. If there is a specific clinical concern for which you would like a pathologist to review the blood smear, please call Lab Client Services within 28 days. Account Credited Performed By: #### S TFREV ####[facility] LABCLIA [id number] [place] [address] [place]#### 17026-3 ####[facility] [id number] [address] LABCLIA [id number] [address] [place] Stanley 01-15-2025 CNPN Telephone (HEMAWS) CALL,BEV Gerardo ([id number]) 1975 F Date Time Provider Department 01/15/25 JOSÉ PRESSLEY During your visit today, we recorded the following information about you: Abigail Horner Bety 01/15/2025 8:38 AM Signed Please review and advise CONSULT TO HEMATOLOGY Status: Needs Scheduling Requested appt date: Authorizing: Amita Pope APRN.OXYGEN FURNACE OPERATOR in [facility] Referral: [id number] (Authorized) Expires: 01/15/2026 Priority: Routine Diagnosis: Leukocytosis, unspecified type [D72.829] Comments Chronic leukocytosis. This has been going on for 2 years. Patient is returning with frequent viral infections. Maritza Ron LPN 01/15/2025 9:06 AM Signed Offer apt with first available. Printed recent ER, admission note, ct reports from [facility]. REZA Arcos Naomi 01/15/2025 9:33 AM Signed Spoke w pt and she is scheduled 01/25 available new pt. Elmira Paulino Allergies As of Date: 01/15/2025 Noted Allergy Reaction DOXYCYCLINE 08/16/2006 ENTEX (PHENYLEPHRINE-GUAIFE NESIN) 10/20/2006 ERYTHROMYCIN 08/16/2006 12 - Shortness of Breath Comments: Can take zpak FLEXERIL (CYCLOBENZAPRINE HCL) 10/08/2011 3 - Cough Comments: denies OMNICEF (CEFDINIR) 07/11/2014 8 - GI Upset PENICILLIN G 08/16/2006 5 - Intolerance Comments: unknown reaction during childhood RISPERDAL (RISPERIDONE) 08/16/2006 7 - Swelling ULTRAM (TRAMADOL HCL) 08/16/2006 7 - Swelling VALTREX (VALACYCLOVIR HCL) 08/16/2006 2 - Rash Date Reviewed: 01/14/2025 Reviewed by: Debbie Nichols MA - Fully Assessed Reason for Visit: New Patient [172] Prescriptions as of 01/15/2025 - fluconazole (DIFLUCAN) 100 mg tablet Take 1 tablet by mouth once daily for 3 days. - sulfamethoxazole-trim ethoprim (BACTRIM DS) 800-160 mg per tablet Take 1 tablet by mouth two times a day for 14 days. - tiZANidine (ZANAFLEX) 4 mg tablet Take 1 tablet by mouth every 8 hours as needed (muscle spasms). - venlafaxine (EFFEXOR) 50 mg tablet Take 1 tablet by mouth once daily. - guaiFENesin (MUCINEX) 600 mg 12 hr tablet Take 2 tablets by mouth two times a day as needed for cold/allergy symptoms. - gabapentin (NEURONTIN) 400 mg capsule Take 1 capsule by mouth three times a day for 180 days. - benzonatate (TESSALON PERLE) 100 mg capsule Take 1 capsule by mouth three times a day as needed for cough. - venlafaxine ER (EFFEXOR XR) 150 mg 24 hr capsule Take 1 capsule by mouth once daily. - pantoprazole DR (PROTONIX) 40 mg tablet TAKE 1 TABLET BY MOUTH ON AN EMPTY STOMACH 1/2 HOUR BEFORE A MEAL TWICE DAILY - albuterol HFA (VENTOLIN HFA) 90 mcg/actuation inhaler Inhale 2 Puffs as instructed every 4 hours as needed for wheezing/shortness of breath. - cetirizine (ZYRTEC) 10 mg tablet Take 1 tablet by mouth once daily. - metoprolol succinate ER (TOPROL XL) 25 mg 24 hr tablet Take 0.5 tablets by mouth once daily. - nitroglycerin sublingual (NITROQUICK) 0.4 mg SL tablet Dissolve 1 tablet under the tongue every 5 minutes as needed for chest pain. - atorvastatin (LIPITOR) 40 mg tablet Take 1 tablet by mouth once daily. - aspirin, enteric coated (ASPIRIN, ENTERIC COATED) 81 mg EC tablet TAKE 1 TABLET BY MOUTH EVERY DAY - docusate sodium (COLACE) 100 mg capsule Take 1 capsule by mouth twice daily as needed for constipation. - acetaminophen (TYLENOL) 500 mg tablet Take 2 tablets by mouth every 8 hours as needed for pain. - COMBIVENT RESPIMAT 20-100 mcg/actuation inhaler INHALE 1 PUFF INSTRUCTED FOUR TIMES DAILY NEEDED. - nitroglycerin sublingual (NITROQUICK) 0.4 mg SL tablet Dissolve 1 tablet under the tongue every 5 minutes as needed for Chest Pain. Problem List As Of Date 01/15/2025 Noted Resolved Grief reaction [F43.21] 08/16/2006 Anxiety state [F41.1] 08/16/2006 Unspecified gastritis and gastroduodenitis with*08/16/2006 04/27/2017 Allergic rhinitis, cause unspecified [J30.9] 08/16/2006 04/27/2017 Lumbago [M54.50] 08/16/2006 Tobacco use disorder [F17.200] 08/16/2006 Fever and other physiologic disturbances of tem*07/04/2008 08/09/2012 PAIN ABDOMEN( Epigastric) [R10.13] 07/04/2008 08/09/2012 ABNORMAL XRAY ABDOMINAL [R93.5] 10/08/2008 09/24/2014 NAUSEA [R11.0] 10/08/2008 08/09/2012 ABDOMINAL PAIN( Periumbilical) [R10.33] 10/08/2008 08/09/2012 Cellulitis [L03.90] 09/17/2009 04/27/2017 Routine general medical examination at [facility]*01/15/2011 08/09/2012 Class: Chronic Routine gynecological examination [Z01.419] 01/15/2011 08/09/2012 Class: Chronic GERD (gastroesophageal reflux disease) [K21.9] 01/15/2011 PUD (peptic ulcer disease) [K27.9] 01/15/2011 Tinea versicolor [B36.0] 01/29/2011 09/24/2014 Post-inflammatory hyperpigmentation [L81.0] 01/29/2011 09/24/2014 Pruritus [L29.9] 01/29/2011 09/24/2014 Hyperlipidemia [E78.5] 05/22/2014 Coronary artery disease involving lower [place]*06/06/2014 Lymphadenopath (more content not included)... Normal [facility] CBC W Auto Differential pane l (Bld)on 01-14-2025 Basophils (Bld) [#/Vol] 0.08 10*3/uL Normal <0.11 [facility] Comment on above: Order Comment: Speci men Type: BLOOD SPECIMENOrdering Facility: [facility] Address: [address] [place] [address] Performed By: #### 5 7021-8 ####[facility] LABCLIA [id number] [place] [address] [place] Basophils/100 WBC (Bld) 0.5 % Normal [facility] Comment on above: Order Comment: Speci men Type: BLOOD SPECIMENOrdering Facility: [facility] Address: [address] [place] [address] Performed By: #### 5 7021-8 ####[facility] LABCLIA [id number] [place] [address] [place] Differential cell count method Nom (Bld) Auto Normal [facility] Comment on above: Order Comment: Speci men Type: BLOOD SPECIMENOrdering Facility: [facility] Address: [address] [place] [address] Performed By: #### 5 7021-8 ####[facility] LABCLIA [id number] [place] [address] [place] Eosinophils (Bld) [#/Vol] 0.41 10*3/uL Normal <0.46 [facility] Comment on above: Order Comment: Speci men Type: BLOOD SPECIMENOrdering Facility: [facility] Address: [address] [place] [address] Performed By: #### 5 7021-8 ####[facility] LABCLIA [id number] [place] [address] [place] Eosinophils/100 WBC (Bld) 2.5 % Normal [facility] Comment on above: Order Comment: Speci men Type: BLOOD SPECIMENOrdering Facility: [facility] Address: [address] [place] [address] Performed By: #### 5 7021-8 ####[facility] LABCLIA [id number] [place] [address] [place] Erythrocyte distribution width (RBC) [Ratio] 17.9 % High 11.5-15.0 [facility] Comment on above: Order Comment: Speci men Type: BLOOD SPECIMENOrdering Facility: [facility] Address: [address] [place] [address] Performed By: #### 5 7021-8 ####[facility] LABCLIA [id number] [place] [address] [place] Hematocrit (Bld) [Volume fraction] 44.3 % Normal 36.0-46.0 [facility] Comment on above: Order Comment: Speci men Type: BLOOD SPECIMENOrdering Facility: [facility] Address: [address] [place] [address] Performed By: #### 5 7021-8 ####[facility] LABCLIA [id number] [place] [address] [place] Hemoglobin (Bld) [Mass/Vol] 13.8 g/dL Normal 11.5-15.5 [facility] Comment on above: Order Comment: Speci men Type: BLOOD SPECIMENOrdering Facility: [facility] Address: [address] [place] [address] Performed By: #### 5 7021-8 ####[facility] LABCLIA [id number] [place] [address] [place] Immature granulocytes (Bld) [#/Vol] 0.10 10*3/uL High <0.10 [facility] Comment on above: Order Comment: Speci men Type: BLOOD SPECIMENOrdering Facility: [facility] Address: [address] [place] [address] Performed By: #### 5 7021-8 ####[facility] LABCLIA [id number] [place] [place] [id number] [place] Immature granulocytes/100 WBC (Bld) 0.6 % Normal [facility] Comment on above: Order Comment: Speci men Type: BLOOD SPECIMENOrdering Facility: [facility] Address: [address] [place] [address] Performed By: #### 5 7021-8 ####[facility] LABCLIA [id number] [place] [address] [place] Lymphocytes (Bld) [#/Vol] 3.72 10*3/uL Normal 1.00-4.00 [facility] Comment on above: Order Comment: Speci men Type: BLOOD SPECIMENOrdering Facility: [facility] Address: [address] [place] [address] Performed By: #### 5 7021-8 ####[facility] LABIA [id number] [place] [address] [place] Lymphocytes/100 WBC (Bld) 23.0 % Normal [facility] Comment on above: Order Comment: Speci men Type: BLOOD SPECIMENOrdering Facility: [facility] Address: [address] [place] [address] Performed By: #### 5 7021-8 ####[facility] LABIA [id number] [place] [address] [place] MCH (RBC) [Entitic mass] 27.9 pg Normal 26.0-34.0 [facility] Comment on above: Order Comment: Speci men Type: BLOOD SPECIMENOrdering Facility: [facility] Address: [address] [place] [address] Performed By: #### 5 7021-8 ####[facility] LABIA [id number] [place] [id number] [place] MCHC (RBC) [Mass/Vol] 31.2 g/dL Normal 30.5-36.0 [facility] Comment on above: Order Comment: Speci men Type: BLOOD SPECIMENOrdering Facility: [facility] Address: [address] [place] [address] Performed By: #### 5 7021-8 ####[facility] LABCLIA [id number] [address] [place] [address] [place] MCV (RBC) [Entitic vol] 89.7 fL Normal 80.0-100.0 C [facility] Comment on above: Order Comment: Speci men Type: BLOOD SPECIMENOrdering Facility: [facility] Address: [address] [place] [address] Performed By: #### 5 7021-8 ####[facility] LABCLIA [id number] [address], [place] [address] [place] Monocytes (Bld) [#/Vol] 1.47 10*3/uL High <0.87 [facility] Comment on above: Order Comment: Speci men Type: BLOOD SPECIMENOrdering Facility: [facility] Address: [address] [place] [address] Performed By: #### 5 7021-8 ####[facility] LABCLIA [id number] [place] [address] [place] Monocytes/100 WBC (Bld) 9.1 % Normal C [facility] Comment on above: Order Comment: Speci men Type: BLOOD SPECIMENOrdering Facility: [facility] Address: [address] [place] [address] Performed By: #### 5 7021-8 ####[facility] LABCLIA [id number] [place] [address] [place] Neutrophils (Bld) [#/Vol] 10.36 10*3/uL High 1.45-7.50 [facility] Comment on above: Order Comment: Speci men Type: BLOOD SPECIMENOrdering Facility: [facility] Address: [address] [place] [address] Performed By: #### 5 7021-8 ####[facility] LABCLIA [id number] [place] [id number] [place] Neutrophils/100 WBC (Bld) 64.3 % Normal [facility] Comment on above: Order Comment: Speci men Type: BLOOD SPECIMENOrdering Facility: [facility] Address: [address] [place] [address] Performed By: #### 5 7021-8 ####[facility] LABCLIA [id number] [address] [place] [address] [place] Nucleated RBC (Bld) [#/Vol] 10*3/uL Normal <0.01 [facility] Comment on above: Order Comment: Speci men Type: BLOOD SPECIMENOrdering Facility: [facility] Address: [address] [place] [address] Performed By: #### 5 7021-8 ####[facility] LABIA [id number] [address], [facility] [place] Nucleated RBC/100 WBC (Bld) [Ratio] 0.0 /100 WBC Normal [facility] Comment on above: Order Comment: Speci men Type: BLOOD SPECIMENOrdering Facility: [facility] Address: [address] [place] [address] Performed By: #### 5 7021-8 ####[facility] LABIA [id number] [place] [id number] [place] Platelet mean volume (Bld) [Entitic vol] 10.7 fL Normal 9.0-12.7 [facility] Comment on above: Order Comment: Speci men Type: BLOOD SPECIMENOrdering Facility: [facility] Address: [address] [place] [address] Performed By: #### 5 7021-8 ####[facility] LABIA [id number] [place] [id number] [place] Platelets (Bld) [#/Vol] 441 10*3/uL High 150-400 [facility] Comment on above: Order Comment: Speci men Type: BLOOD SPECIMENOrdering Facility: [facility] Address: [address] [place] [address] Performed By: #### 5 7021-8 ####[facility] LABIA [id number] [place] [id number] [place] RBC (Bld) [#/Vol] 4.94 10*6/uL Normal 3.90-5.20 [facility] Comment on above: Order Comment: Speci men Type: BLOOD SPECIMENOrdering Facility: [facility] Address: [address] [place] [address] Performed By: #### 5 7021-8 ####[facility] LABIA [id number] [place] [id number] [place] WBC (Bld) [#/Vol] 16.14 10*3/uL High 3.70-11.00 [facility] Comment on above: Order Comment: Speci men Type: BLOOD SPECIMENOrdering Facility: [facility] Address: [address] [place] [address] Performed By: #### 5 7021-8 ####[facility] LABIA [id number] [place] [id number] [facility] CNOVon 01-14-2025 CNOV Office Visit (FAMPWS ) CALL,BEV Gerardo ([id number]) 1975 F Date Time Provider Department 01/14/25 2:40 PM AMITA POPE FAMPWS During your visit today, we recorded the following information about you: Temperature Pulse Blood pressure Weight 99.4 degrees 94/minute 138/92 76.2 kg Amita Pope APRN.OXYGEN FURNACE OPERATOR 01/14/2025 2:51 PM Signed This is a 49 year old female who presents today with: Patient presents with: Mouth/Lip Problem: Thrush Sinusitis HISTORY OF PRESENT ILLNESS: Bev Webb is a 49 year old female. Patient presents with: Mouth/Lip Problem: Thrush Sinusitis Sore tongue with white plaque. Sinusitis returning and feels bad. Whole body hurts Headache is back Eating taiwanese yogurt- doesn't like it but it helped Vaginal drainage- white curd-like vaginal drainage Coughing a little EAR PAIN Sore throat Headache PAST MEDICAL HISTORY: PAST MEDICAL HISTORY Diagnosis Date Abnormal mammogram, unspecified LEFT BREAST Abnormal Pap smear and cervical HPV (human papillomavirus) CAD (coronary artery disease) 2103 diffuse moderate CAD in the left main and RCA-40-50%, seeing Dr. Chase Centrilobular emphysema (HCC) Chronic cholecystitis 08/24/07 Chronic depressive personality disorder Chronic gastric ulcer without mention of hemorrhage, perforation, without mention of obstruction COPD with chronic bronchitis (HCC) Generalized anxiety disorder HTN (hypertension) Hyperlipidemia Incisional hernia without mention of obstruction or gangrene Irritable bowel syndrome Lumbago PONV (postoperative nausea and vomiting) Raynaud's phenomenon (by history or observed) Tobacco use disorder, continuous Daily smoker since age 16. PAST SURGICAL HISTORY Procedure Laterality Date APPENDECTOMY ENDOMETRIAL BX W/WO ENDOCERVIX BX W/O DILAT SPX 01/01/2009 Menorrhagia ESOPHAGOGASTRODUODENO SCOPY TRANSORAL DIAGNOSTIC 09/26/2012 EGD EXC BREAST LES PREOP PLMT RAD MARKER OPEN 1 LES 08/29/2009 left breast HEART CATHETERIZATION 11/07/2013 IMPLANT MESH OPN HERNIA RPR/DEBRIDEMENT CLOSURE 07/01/2008 LAPAROSCOPIC APPENDECTOMY LAPS SURG CHOLECYSTECTOMY W/CHOLANGIOGRAPHY 08/24/2007 LIG/TRNSXJ FLP TUBE ABDL/VAG APPR UNI/BI PREOP PLACEMENT NEEDLE LOC 08/29/2009 left breast REP INIT INCI/ VENTRAL HERNIA 11/27/2020 REPAIR FIRST ABDOMINAL WALL HERNIA 07/01/2008 REVISE MEDIAN N/CARPAL TUNNEL SURG Left 11/10/2022 Left CTR SEPTOPLASTY/SUBMUCOUS RESECJ W/WO CARTILAGE GRF 2001 +/- Akhil STEREOTACTIC CORE BIOPSY 07/09/2009 LEFT BREAST ALLERGIES Doxycycline, Entex [Phenylephrine-Guaife nesin], Erythromycin, Flexeril [Cyclobenzaprine Hcl], Omnicef [Cefdinir], Penicillin G, Risperdal [Risperidone], Ultram [Tramadol Hcl], and Valtrex [Valacyclovir Hcl] MEDICATIONS Current Outpatient Medications Medication Sig tiZANidine (ZANAFLEX) 4 mg tablet Take 1 tablet by mouth every 8 hours as needed (muscle spasms). venlafaxine (EFFEXOR) 50 mg tablet Take 1 tablet by mouth once daily. guaiFENesin (MUCINEX) 600 mg 12 hr tablet Take 2 tablets by mouth two times a day as needed for cold/allergy symptoms. gabapentin (NEURONTIN) 400 mg capsule Take 1 capsule by mouth three times a day for 180 days. benzonatate (TESSALON PERLE) 100 mg capsule Take 1 capsule by mouth three times a day as needed for cough. venlafaxine ER (EFFEXOR XR) 150 mg 24 hr capsule Take 1 capsule by mouth once daily. pantoprazole DR (PROTONIX) 40 mg tablet TAKE 1 TABLET BY MOUTH ON AN EMPTY STOMACH 1/2 HOUR BEFORE A MEAL TWICE DAILY albuterol HFA (VENTOLIN HFA) 90 mcg/actuation inhaler Inhale 2 Puffs as instructed every 4 hours as needed for wheezing/shortness of breath. cetirizine (ZYRTEC) 10 mg tablet Take 1 tablet by mouth once daily. metoprolol succinate ER (TOPROL XL) 25 mg 24 hr tablet Take 0.5 tablets by mouth once daily. atorvastatin (LIPITOR) 40 mg tablet Take 1 tablet by mouth once daily. aspirin, enteric coated (ASPIRIN, ENTERIC COATED) 81 mg EC tablet TAKE 1 TABLET BY MOUTH EVERY DAY docusate sodium (COLACE) 100 mg capsule Take 1 capsule by mouth twice daily as needed for constipation. acetaminophen (TYLENOL) 500 mg tablet Take 2 tablets by mouth every 8 hours as needed for pain. COMBIVENT RESPIMAT 20-100 mcg/actuation inhaler INHALE 1 PUFF INSTRUCTED FOUR TIMES DAILY NEEDED. nitroglycerin sublingual (NITROQUICK) 0.4 mg SL tablet Dissolve 1 tablet under the tongue every 5 minutes as needed for chest pain. nitroglycerin sublingual (NITROQUICK) 0.4 mg SL tablet Dissolve 1 tablet under the tongue every 5 minutes as needed for Chest Pain. No current facility-administered medications for this visit. FAMILY HISTORY Problem Relation Age of Onset Hypertension Mother Diabetes Mother Systemic Lupus Erythematosus Mother Alcohol/Drug Father (cardiac issues from this) Diabetes Father A (more content not included)... Normal [facility] CNPNon 01-14-2025 CNPN Telephone (FAMPWS) CALL,BEV Gerardo ([id number]) 1975 F Date Time Provider Department 01/14/25 AMITA POPEWS During your visit today, we recorded the following information about you: Monique Leong, RN 01/14/2025 8:20 AM Signed Pt called in and reports she saw Izabel Pope MARK UP DESIGNER on 01/03/25. She said she told her to come back if symptoms got worse. Pt reports she has thrush, her tongue is completely coated in white. Pt also reports her sinus infection symptoms are coming back. Pt scheduled today with Izabel Pope at 240 pm. Allergies As of Date: 01/14/2025 Noted Allergy Reaction DOXYCYCLINE 08/16/2006 ENTEX (PHENYLEPHRINE-GUAIFE NESIN) 10/20/2006 ERYTHROMYCIN 08/16/2006 12 - Shortness of Breath Comments: Can take zpak FLEXERIL (CYCLOBENZAPRINE HCL) 10/08/2011 3 - Cough Comments: denies OMNICEF (CEFDINIR) 07/11/2014 8 - GI Upset PENICILLIN G 08/16/2006 5 - Intolerance Comments: unknown reaction during childhood RISPERDAL (RISPERIDONE) 08/16/2006 7 - Swelling ULTRAM (TRAMADOL HCL) 08/16/2006 7 - Swelling VALTREX (VALACYCLOVIR HCL) 08/16/2006 2 - Rash Date Reviewed: 01/03/2025 Reviewed by: Debbie Nichols MA - Fully Assessed Reason for Visit: Patient Update [1234] Appointment [186] Prescriptions as of 01/14/2025 - tiZANidine (ZANAFLEX) 4 mg tablet Take 1 tablet by mouth every 8 hours as needed (muscle spasms). - venlafaxine (EFFEXOR) 50 mg tablet Take 1 tablet by mouth once daily. - guaiFENesin (MUCINEX) 600 mg 12 hr tablet Take 2 tablets by mouth two times a day as needed for cold/allergy symptoms. - gabapentin (NEURONTIN) 400 mg capsule Take 1 capsule by mouth three times a day for 180 days. - benzonatate (TESSALON PERLE) 100 mg capsule Take 1 capsule by mouth three times a day as needed for cough. - venlafaxine ER (EFFEXOR XR) 150 mg 24 hr capsule Take 1 capsule by mouth once daily. - pantoprazole DR (PROTONIX) 40 mg tablet TAKE 1 TABLET BY MOUTH ON AN EMPTY STOMACH 1/2 HOUR BEFORE A MEAL TWICE DAILY - albuterol HFA (VENTOLIN HFA) 90 mcg/actuation inhaler Inhale 2 Puffs as instructed every 4 hours as needed for wheezing/shortness of breath. - cetirizine (ZYRTEC) 10 mg tablet Take 1 tablet by mouth once daily. - metoprolol succinate ER (TOPROL XL) 25 mg 24 hr tablet Take 0.5 tablets by mouth once daily. - nitroglycerin sublingual (NITROQUICK) 0.4 mg SL tablet Dissolve 1 tablet under the tongue every 5 minutes as needed for chest pain. - atorvastatin (LIPITOR) 40 mg tablet Take 1 tablet by mouth once daily. - aspirin, enteric coated (ASPIRIN, ENTERIC COATED) 81 mg EC tablet TAKE 1 TABLET BY MOUTH EVERY DAY - docusate sodium (COLACE) 100 mg capsule Take 1 capsule by mouth twice daily as needed for constipation. - acetaminophen (TYLENOL) 500 mg tablet Take 2 tablets by mouth every 8 hours as needed for pain. - COMBIVENT RESPIMAT 20-100 mcg/actuation inhaler INHALE 1 PUFF INSTRUCTED FOUR TIMES DAILY NEEDED. - nitroglycerin sublingual (NITROQUICK) 0.4 mg SL tablet Dissolve 1 tablet under the tongue every 5 minutes as needed for Chest Pain. Problem List As Of Date 01/14/2025 Noted Resolved Grief reaction [F43.21] 08/16/2006 Anxiety state [F41.1] 08/16/2006 Unspecified gastritis and gastroduodenitis with*08/16/2006 04/27/2017 Allergic rhinitis, cause unspecified [J30.9] 08/16/2006 04/27/2017 Lumbago [M54.50] 08/16/2006 Tobacco use disorder [F17.200] 08/16/2006 Fever and other physiologic disturbances of tem*07/04/2008 08/09/2012 PAIN ABDOMEN( Epigastric) [R10.13] 07/04/2008 08/09/2012 ABNORMAL XRAY ABDOMINAL [R93.5] 10/08/2008 09/24/2014 NAUSEA [R11.0] 10/08/2008 08/09/2012 ABDOMINAL PAIN( Periumbilical) [R10.33] 10/08/2008 08/09/2012 Cellulitis [L03.90] 09/17/2009 04/27/2017 Routine general medical examination at [facility]*01/15/2011 08/09/2012 Class: Chronic Routine gynecological examination [Z01.419] 01/15/2011 08/09/2012 Class: Chronic GERD (gastroesophageal reflux disease) [K21.9] 01/15/2011 PUD (peptic ulcer disease) [K27.9] 01/15/2011 Tinea versicolor [B36.0] 01/29/2011 09/24/2014 Post-inflammatory hyperpigmentation [L81.0] 01/29/2011 09/24/2014 Pruritus [L29.9] 01/29/2011 09/24/2014 Hyperlipidemia [E78.5] 05/22/2014 Coronary artery disease involving [place]*06/06/2014 Lymphadenopathy [R59.1] 06/06/2014 04/27/2017 Herpes simplex infection [B00.9] 03/18/2016 04/27/2017 Marijuana use [F12.90] 06/08/2018 Mild intermittent asthma with acute exacerbatio* 8 Chest pain [R07.9] 08/30/2018 08/30/2018 Polysubstance abuse (HCC) [F19.10] 08/30/2018 Primary hypertension [I10] 08/30/2018 Simple endometrial hyperplasia without atypia [*04/27/2019 Raynaud's phenomenon (by history or observed) [* COPD with chronic bronchitis (HCC) [J44.89] Emphysema (subcutaneous) (surgical) resulting f* Centrilobular emphysema (HCC) [J43.2] (more content not included)... Normal [facility] Basic metabolic 2000 panelOr dered By: Nisa Lord on 01-03-2025 Anion gap [Moles/Vol] 13 mmol/L 8 - 15 mmol/L [place] Calcium [Mass/Vol] 9.1 mg/dL 8.5 - 10. 2 mg/dL [place] Chloride [Moles/Vol] 104 mmol/L 98 - 10 7 mmol/L [place] CO2 [Moles/Vol] 22 mmol/L 22 - 30 mmol/L [place] Creatinine [Mass/Vol] 1.26 mg/dL High 0.58 - 0.96 mg/dL [place] GFR/1.73 sq M.predicted among non-blacks MDRD (S/P/Bld) [Vol rate/Area] 53 mL/min/{1.73_m2} Low - PINF [place] Comment on above: Estimated Glomerular Filtration Rate (eGFR) is calculated using the 2020 CKD-EPI creatinine equation. This equation utilizes serum creatinine, sex, and age as parameters. The creatinine assay has traceable calibration to isotope dilution-mass spectrometry. Refer to KDIGO guidelines for clinical interpretation. In patients with unstable renal function, e.g. those with acute kidney injury, the eGFR may not accurately reflect actual GFR. Glucose [Mass/Vol] 93 mg/dL 74 - 99 mg/dL [place] Comment on above: The [place] Diab[employer] [place] Association (ADA) provides guidance for cutoff values for fasting glucose and random glucose. The ADA defines fasting as no caloric intake for at least 8 hours. Fasting plasma glucose results between 100 to 125 mg/dL indicate increased risk for diabetes (prediabetes). Fasting plasma glucose results greater than or equal to 126 mg/dL meet the criteria for diagnosis of diabetes. In the absence of unequivocal hyperglycemia, results should be confirmed by repeat testing. In a patient with classic symptoms of hyperglycemia or hyperglycemic crisis, random plasma glucose results greater than or equal to 200 mg/dL meet the criteria for diagnosis of diabetes. Reference: Standards of Medical Care in Diabetes 2016, [place] [employer] Association. Diabetes Care. 2016.39(Suppl 1). Interpretation and review of laboratory results Abnormal [place] Potassium [Moles/Vol] 4.2 mmol/L 3.7 - 5.1 mmol/L [place] Sodium [Moles/Vol] 139 mmol/L 136 - 144 mmol/L [place] Urea nitrogen [Mass/Vol] 9 mg/dL 7 - 21 mg/d [facility] Basic metabolic 2000 panelon 01-03-2025 Anion gap [Moles/Vol] 13 mmol/L Normal 8-15 [facility] Comment on above: Order Comment: Speci men Type: BLOOD SPECIMENOrdering Facility: [facility] Address: [address] [place] [address] Performed By: #### 1 9123-9, 07974-5 ####[facility] TONYA MILLJUANAWKYLELIA [id number] [place] [address] [place] Calcium [Mass/Vol] 9.1 mg/dL Normal 8.5-10.2 [facility] Comment on above: Order Comment: Speci men Type: BLOOD SPECIMENOrdering Facility: [facility] Address: [address] [place] [address] Performed By: #### 1 9123-9, 50541-1 ####[facility] H[facility]PITALDAVID [id number] [place] [address] [place] Chloride [Moles/Vol] 104 mmol/L Normal 98-107 [facility] Comment on above: Order Comment: Speci men Type: BLOOD SPECIMENOrdering Facility: [facility] Address: [address] [place] [address] Performed By: #### 1 9123-9, 61039-3 ####[facility] HOSPITALWKYLELIA [id number] [place] [address] [place] CO2 [Moles/Vol] 22 mmol/L Normal 22-30 [facility] Comment on above: Order Comment: Speci men Type: BLOOD SPECIMENOrdering Facility: [facility] Address: [address] [place] [address] Performed By: #### 1 9123-9, 20216-6 ####[facility] MILLGOSHENKYLELIA [id number] [place] [address] [place] Creatinine [Mass/Vol] 1.26 mg/dL High 0.58-0.96 [facility] Comment on above: Order Comment: Samson morrow Type: BLOOD SPECIMENOrdering Facility: [facility] Address: [address] [place] [address] Performed By: #### 1 9123-9, 14333-8 ####[facility] [id number] [place] [address] [place] Creatinine and Glomerular filtration rate.predicted panel (S/P/Bld) 53 mL/min/1.73m??? Low >=60 [facility] Comment on above: Order Comment: Samson morrow Type: BLOOD SPECIMENOrdering Facility: [facility] Address: [address] [place] [address] Result Comment: Betty mated Glomerular Filtration Rate (eGFR) is calculated using the 2020 CKD-EPI creatinine equation. This equation utilizes serum creatinine, sex, and age as parameters. The creatinine assay has traceable calibration to isotope dilution-mass spectrometry. Refer to KDIGO guidelines for clinical interpretation. In patients with unstable renal function, e.g. those with acute kidney injury, the eGFR may not accurately reflect actual GFR. Performed By: #### 1 9123-9, 55139-3 ####[facility] [id number] [place] [address] [place] Glucose [Mass/Vol] 93 mg/dL Normal 74-99 [facility] Comment on above: Order Comment: Samson morrow Type: BLOOD SPECIMENOrdering Facility: [facility] Address: [address] [place] [address] Result Comment: The [place] Diabetes Association (ADA) provides guidance for cutoff values for fasting glucose and random glucose. The ADA defines fasting as no caloric intake for at least 8 hours. Fasting plasma glucose results between 100 to 125 mg/dL indicate increased risk for diabetes (prediabetes). Fasting plasma glucose results greater than or equal to 126 mg/dL meet the criteria for diagnosis of diabetes. In the absence of unequivocal hyperglycemia, results should be confirmed by repeat testing. In a patient with classic symptoms of hyperglycemia or hyperglycemic crisis, random plasma glucose results greater than or equal to 200 mg/dL meet the criteria for diagnosis of diabetes. Reference: Standards of Medical Care in Diabetes 2016, [place] Diabetes Association. Diabetes Care. 2016.39(Suppl 1). Performed By: #### 1 9123-9, 95058-6 ####[facility] TONYA CORNELLJUANAEnedeliaKYLECASEY [id number] [place] [address] [place] Potassium [Moles/Vol] 4.2 mmol/L Normal 3.7-5.1 [facility] Comment on above: Order Comment: Speci men Type: BLOOD SPECIMENOrdering Facility: [facility] Address: [address] [place] [address] Performed By: #### 1 9123-9, 53734-4 ####[facility] CENTERDANIEA [id number] [place] [address] [place] Sodium [Moles/Vol] 139 mmol/L Normal 136-144 [facility] Comment on above: Order Comment: Speci cristhian Type: BLOOD SPECIMENOrdering Facility: [facility] Address: [address] [place] [address] Performed By: #### 1 9123-9, 73340-0 ####[facility] CENTERDANIEA [id number] [place] [address] [place] Urea nitrogen [Mass/Vol] 9 mg/dL Normal 7-21 [facility] Comment on above: Order Comment: Speci men Type: BLOOD SPECIMENOrdering Facility: [facility] Address: [address] [place] [address] Performed By: #### 1 9123-9, 84561-7 ####[facility] CENTERKYLELIA [id number] [place] [address] [place] CBC W Auto Differential pane l (Bld)on 01-03-2025 Basophils (Bld) [#/Vol] 0.09 10*3/uL [facility] Basophils/100 WBC (Bld) 0.6 % [facility] Differential cell count method Nom (Bld) Auto [place] Eosinophils (Bld) [#/Vol] 0.45 10*3/uL [facility] Eosinophils/100 WBC (Bld) 2.8 % [place] Erythrocyte distribution width (RBC) [Ratio] 17.8 % High 11.5 - 15.0 % [place] Hematocrit (Bld) [Volume fraction] 40.4 % 36.0 - 46.0 % [place] Hemoglobin (Bld) [Mass/Vol] 12.5 g/dL 11.5 - 15.5 g/dL [place] Immature granulocytes (Bld) [#/Vol] 0.08 10*3/uL [facility] Immature granulocytes/100 WBC (Bld) 0.5 % [place] Interpretation and review of laboratory results Abnormal [place] Lymphocytes (Bld) [#/Vol] 3.94 10*3/uL [place] Lymphocytes/100 WBC (Bld) 24.1 % [place] MCH (RBC) [Entitic mass] 27.4 pg 26. 0 - 34.0 pg [place] MCHC (RBC) [Mass/Vol] 30.9 g/dL 30.5 - 36.0 g/dL [place] MCV (RBC) [Entitic vol] 88.6 fL 80.0 - 100.0 fL [place] Monocytes (Bld) [#/Vol] 1.54 10*3/uL High [facility] Monocytes/100 WBC (Bld) 9.4 % C [facility] Neutrophils (Bld) [#/Vol] 10.24 10*3/uL High [place] Neutrophils/100 WBC (Bld) 62.6 % [place] Nucleated RBC (Bld) [#/Vol] [facility] Nucleated RBC/100 WBC (Bld) [Ratio] 0 % /100 WBC [place] Platelet mean volume (Bld) [Entitic vol] 10.3 fL 9.0 - 12.7 fL [place] Platelets (Bld) [#/Vol] 525 10*3/uL High [place] RBC (Bld) [#/Vol] 4.56 10*6/uL 3.90 - 5.2 0 m/uL [place] WBC (Bld) [#/Vol] 16.34 10*3/uL High [facility] Basophils (Bld) [#/Vol] 0.09 10*3/uL Normal <0.11 [facility] Comment on above: Order Comment: Speci men Type: BLOOD SPECIMENOrdering Facility: [facility] Address: [address] [place] [address] Performed By: #### 5 7021-8 ####[facility] TONYA MILLTOWNCLIA [id number] [place] [address] [place] Basophils/100 WBC (Bld) 0.6 % Normal [facility] Comment on above: Order Comment: Speci men Type: BLOOD SPECIMENOrdering Facility: [facility] Address: [address] [place] [address] Performed By: #### 5 7021-8 ####[facility] [id number] [place] [address] [place] Differential cell count method Nom (Bld) Auto Normal [facility] Comment on above: Order Comment: Speci men Type: BLOOD SPECIMENOrdering Facility: [facility] Address: [address] [place] [address] Performed By: #### 5 7021-8 ####[facility]IT[facility] [id number] [place] [address] [place] Eosinophils (Bld) [#/Vol] 0.45 10*3/uL Normal <0.46 [facility] Comment on above: Order Comment: Speci men Type: BLOOD SPECIMENOrdering Facility: [facility] Address: [address] [place] [address] Performed By: #### 5 7021-8 ####[facility] [id number] [place] [address] [place] Eosinophils/100 WBC (Bld) 2.8 % Normal [facility] Comment on above: Order Comment: Speci men Type: BLOOD SPECIMENOrdering Facility: [facility] Address: [address] [place] [address] Performed By: #### 5 7021-8 ####[facility] KRAIGGOSHENSVEN [id number] [place] [address] [place] Erythrocyte distribution width (RBC) [Ratio] 17.8 % High 11.5-15.0 [facility] Comment on above: Order Comment: Speci men Type: BLOOD SPECIMENOrdering Facility: [facility] Address: [address] [place] [address] Performed By: #### 5 7021-8 ####[facility] [id number] [place] [address] [place] Hematocrit (Bld) [Volume fraction] 40.4 % Normal 36.0-46.0 [facility] Comment on above: Order Comment: Speci men Type: BLOOD SPECIMENOrdering Facility: [facility] Address: [address] [place] [address] Performed By: #### 5 7021-8 ####[facility] [id number] [place] [address] [place] Hemoglobin (Bld) [Mass/Vol] 12.5 g/dL Normal 11.5-15.5 [facility] Comment on above: Order Comment: Speci men Type: BLOOD SPECIMENOrdering Facility: [facility] Address: [address] [place] [address] Performed By: #### 5 7021-8 ####[facility]CL[facility] [id number] [place] [address] [place] Immature granulocytes (Bld) [#/Vol] 0.08 10*3/uL Normal <0.10 [facility] Comment on above: Order Comment: Speci men Type: BLOOD SPECIMENOrdering Facility: [facility] Address: [address] [place] [address] Performed By: #### 5 7021-8 ####[facility] KRAIGGOSHENNCLIA [id number] [place] [address] [place] Immature granulocytes/100 WBC (Bld) 0.5 % Normal [facility] Comment on above: Order Comment: Speci men Type: BLOOD SPECIMENOrdering Facility: [facility] Address: [address] [place] [address] Performed By: #### 5 7021-8 ####[facility] CITYFrancesca [id number] [place] [address] [place] Lymphocytes (Bld) [#/Vol] 3.94 10*3/uL Normal 1.00-4.00 [facility] Comment on above: Order Comment: Speci men Type: BLOOD SPECIMENOrdering Facility: [facility] Address: [address] [place] [address] Performed By: #### 5 7021-8 ####[facility] [id number] [place] [address] [place] Lymphocytes/100 WBC (Bld) 24.1 % Normal [facility] Comment on above: Order Comment: Speci men Type: BLOOD SPECIMENOrdering Facility: [facility] Address: [address] [place] [address] Performed By: #### 5 7021-8 ####[facility]ENTERNCLIA [id number] [place] [address] [place] MCH (RBC) [Entitic mass] 27.4 pg Normal 26.0-34.0 [facility] Comment on above: Order Comment: Speci men Type: BLOOD SPECIMENOrdering Facility: [facility] Address: [address] [place] [address] Performed By: #### 5 7021-8 ####[facility]ENTERNCLIA [id number] [place] [address] [place] MCHC (RBC) [Mass/Vol] 30.9 g/dL Normal 30.5-36.0 [facility] Comment on above: Order Comment: Speci men Type: BLOOD SPECIMENOrdering Facility: [facility] Address: [address] [place] [address] Performed By: #### 5 7021-8 ####[facility] [id number] [place] [address] [place] MCV (RBC) [Entitic vol] 88.6 fL Normal 80.0-100.0 [facility] Comment on above: Order Comment: Speci men Type: BLOOD SPECIMENOrdering Facility: [facility] Address: [address] [place] [address] Performed By: #### 5 7021-8 ####[facility] [id number] [place] [address] [place] Monocytes (Bld) [#/Vol] 1.54 10*3/uL High <0.87 [facility] Comment on above: Order Comment: Speci men Type: BLOOD SPECIMENOrdering Facility: [facility] Address: [address] [place] [address] Performed By: #### 5 7021-8 ####[facility] [id number] [place] [address] [place] Monocytes/100 WBC (Bld) 9.4 % Normal [facility] Comment on above: Order Comment: Speci men Type: BLOOD SPECIMENOrdering Facility: [facility] Address: [address] [place] [address] Performed By: #### 5 7021-8 ####[facility] [id number] [place] [address] [place] Neutrophils (Bld) [#/Vol] 10.24 10*3/uL High 1.45-7.50 [facility] Comment on above: Order Comment: Speci men Type: BLOOD SPECIMENOrdering Facility: [facility] Address: [address] [place] [address] Performed By: #### 5 7021-8 ####[facility] KRAIGKYEA [id number] [place] [address] [place] Neutrophils/100 WBC (Bld) 62.6 % Normal [facility] Comment on above: Order Comment: Speci men Type: BLOOD SPECIMENOrdering Facility: [facility] Address: [address] [place] [address] Performed By: #### 5 7021-8 ####[facility] CENTERKYLEA [id number] [place] [address] [place] Nucleated RBC (Bld) [#/Vol] 10*3/uL Normal <0.01 [facility] Comment on above: Order Comment: Speci men Type: BLOOD SPECIMENOrdering Facility: [facility] Address: [address] [place] [address] Performed By: #### 5 7021-8 ####[facility] HOSPITALRICKYA [id number] [place] [address] [place] Nucleated RBC/100 WBC (Bld) [Ratio] 0.0 /100 WBC Normal [facility] Comment on above: Order Comment: Speci men Type: BLOOD SPECIMENOrdering Facility: [facility] Address: [address] [place] [address] Performed By: #### 5 7021-8 ####[facility] KRAIGGOSHENKYLELIA [id number] [place] [address] [place] Platelet mean volume (Bld) [Entitic vol] 10.3 fL Normal 9.0-12.7 [facility] Comment on above: Order Comment: Speci men Type: BLOOD SPECIMENOrdering Facility: [facility] Address: [address] [place] [address] Performed By: #### 5 7021-8 ####[facility]ENTERNCLIA [id number] [place] [address] [place] Platelets (Bld) [#/Vol] 525 10*3/uL High 150-400 [facility] Comment on above: Order Comment: Speci men Type: BLOOD SPECIMENOrdering Facility: [facility] Address: [address] [place] [address] Performed By: #### 5 7021-8 ####[facility]CLIA [id number] [place] [address] [place] RBC (Bld) [#/Vol] 4.56 10*6/uL Normal 3.90-5.20 [facility] Comment on above: Order Comment: Speci men Type: BLOOD SPECIMENOrdering Facility: [facility] Address: [address] [place] [address] Performed By: #### 5 7021-8 ####[facility]ENTERNCA [id number] [place] [address] [place] WBC (Bld) [#/Vol] 16.34 10*3/uL High 3.70-11.00 [facility] Comment on above: Order Comment: Speci men Type: BLOOD SPECIMENOrdering Facility: [facility] Address: [address] [place] [address] Performed By: #### 5 7021-8 ####[facility]ENTERNCLIA [id number] [place] [address] [place] CNOVon 01-03-2025 CNOV Office Visit (FAMPWS ) BEV WEBB ([id number]) 1975 F Date Time Provider Department 01/03/25 1:20 PM AMITA POPE During your visit today, we recorded the following information about you: Temperature Pulse Blood pressure Weight 99.5 degrees 115/minute 140/82 75.8 kg Amita Pope APRN.CNP 01/03/2025 2:06 PM Signed This is a 49 year old female who presents today with: Patient presents with: ER F/U: [facility] 12/26/24 [place] HISTORY OF PRESENT ILLNESS: Bev Gerardo Call is a 49 year old female. Patient presents with: ER F/U: [facility] 12/26/24 [facility] follow up 2 weeks ago, she was treated in Urgent care for URI with Zpak Got worse. Went to ER @ [facility]- passed out in ER. Told she there Couldn't find a pulse. They work up noted low magnesium. Son told her to go ER @ [facility]. WBC high. They treated with Levaquin. Only 1 day left. Now blowing out green mucus. PAST MEDICAL HISTORY: PAST MEDICAL HISTORY Diagnosis Date Abnormal mammogram, unspecified LEFT BREAST Abnormal Pap smear and cervical HPV (human papillomavirus) CAD (coronary artery disease) 2103 diffuse moderate CAD in the left main and RCA-40-50%, seeing Dr. Chase Centrilobular emphysema (HCC) Chronic cholecystitis 08/24/07 Chronic depressive personality disorder Chronic gastric ulcer without mention of hemorrhage, perforation, without mention of obstruction COPD with chronic bronchitis (HCC) Generalized anxiety disorder HTN (hypertension) Hyperlipidemia Incisional hernia without mention of obstruction or gangrene Irritable bowel syndrome Lumbago PONV (postoperative nausea and vomiting) Raynaud's phenomenon (by history or observed) Tobacco use disorder, continuous Daily smoker since age 16. PAST SURGICAL HISTORY Procedure Laterality Date APPENDECTOMY ENDOMETRIAL BX W/WO ENDOCERVIX BX W/O DILAT SPX 01/01/2009 Menorrhagia ESOPHAGOGASTRODUODENO SCOPY TRANSORAL DIAGNOSTIC 09/26/2012 EGD EXC BREAST LES PREOP PLMT RAD MARKER OPEN 1 LES 08/29/2009 left breast HEART CATHETERIZATION 11/07/2013 IMPLANT MESH OPN HERNIA RPR/DEBRIDEMENT CLOSURE 07/01/2008 LAPAROSCOPIC APPENDECTOMY LAPS SURG CHOLECYSTECTOMY W/CHOLANGIOGRAPHY 08/24/2007 LIG/TRNSXJ FLP TUBE ABDL/VAG APPR UNI/BI PREOP PLACEMENT NEEDLE LOC 08/29/2009 left breast REP INIT INCI/ VENTRAL HERNIA 11/27/2020 REPAIR FIRST ABDOMINAL WALL HERNIA 07/01/2008 REVISE MEDIAN N/CARPAL TUNNEL SURG Left 11/10/2022 Left CTR SEPTOPLASTY/SUBMUCOUS RESECJ W/WO CARTILAGE GRF 2001 +/- Akhil STEREOTACTIC CORE BIOPSY 07/09/2009 LEFT BREAST ALLERGIES Doxycycline, Entex [Phenylephrine-Guaife nesin], Erythromycin, Flexeril [Cyclobenzaprine Hcl], Omnicef [Cefdinir], Penicillin G, Risperdal [Risperidone], Ultram [Tramadol Hcl], and Valtrex [Valacyclovir Hcl] MEDICATIONS Current Outpatient Medications Medication Sig gabapentin (NEURONTIN) 400 mg capsule Take 1 capsule by mouth three times a day for 180 days. levoFLOXacin (LEVAQUIN) 500 mg tablet Take 1 tablet by mouth once daily for 6 days. benzonatate (TESSALON PERLE) 100 mg capsule Take 1 capsule by mouth three times a day as needed for cough. venlafaxine ER (EFFEXOR XR) 37.5 mg 24 hr capsule Take 1 capsule by mouth once daily. Add 37.5mg to current 150mg XL daily venlafaxine ER (EFFEXOR XR) 150 mg 24 hr capsule Take 1 capsule by mouth once daily. pantoprazole DR (PROTONIX) 40 mg tablet TAKE 1 TABLET BY MOUTH ON AN EMPTY STOMACH 1/2 HOUR BEFORE A MEAL TWICE DAILY albuterol HFA (VENTOLIN HFA) 90 mcg/actuation inhaler Inhale 2 Puffs as instructed every 4 hours as needed for wheezing/shortness of breath. cetirizine (ZYRTEC) 10 mg tablet Take 1 tablet by mouth once daily. metoprolol succinate ER (TOPROL XL) 25 mg 24 hr tablet Take 0.5 tablets by mouth once daily. nitroglycerin sublingual (NITROQUICK) 0.4 mg SL tablet Dissolve 1 tablet under the tongue every 5 minutes as needed for chest pain. atorvastatin (LIPITOR) 40 mg tablet Take 1 tablet by mouth once daily. aspirin, enteric coated (ASPIRIN, ENTERIC COATED) 81 mg EC tablet TAKE 1 TABLET BY MOUTH EVERY DAY docusate sodium (COLACE) 100 mg capsule Take 1 capsule by mouth twice daily as needed for constipation. acetaminophen (TYLENOL) 500 mg tablet Take 2 tablets by mouth every 8 hours as needed for pain. COMBIVENT RESPIMAT 20-100 mcg/actuation inhaler INHALE 1 PUFF INSTRUCTED FOUR TIMES DAILY NEEDED. nitroglycerin sublingual (NITROQUICK) 0.4 mg SL tablet Dissolve 1 tablet under the tongue every 5 minutes as needed for Chest Pain. No current facility-administered medications for this visit. FAMILY HISTORY Problem Relation Age of Onset Hypertension Mother Diabetes Mother Systemic Lupus Erythematosus Mother Alcohol/Drug Father (cardiac issues from this) Diabetes Father Allergies Father (more content not included)... Normal [facility] MAGNESIUMon 01-03-2025 Magnesium [Mass/Vol] 1.9 mg/dL 1.7 - 2 .3 mg/dL [place] Magnesium SerPl-mCncon 01-03 Magnesium [Mass/Vol] 1.9 mg/dL Normal 1.7-2.3 [facility] Comment on above: Order Comment: Speci men Type: BLOOD SPECIMENOrdering Facility: [facility] Address: [address] [place] [address] Performed By: #### 1 9123-9, 66660-1 ####[facility] [id number] [place] [id number] [place] Magnesium [Mass/Vol]on 01-03 Interpretation and review of laboratory results Normal [facility] 01-02-2025 BRET Telephone (LAST) CALL,BEV Gerardo ([id number]) 1975 F Date Time Provider Department 01/02/25 MARTINEZ GARCIA During your visit today, we recorded the following information about you: Hyun Coffman RN 01/02/2025 1:03 PM Signed Pt calling in to set up ER follow up appt. Pt states she was seen in [facility] on 12/17 and was given a Z pack. Pt did not get better and ended up going to [facility] ER on 12/26 where she proceeded to pass out and had no pulse and had to have chest compressions (records under scanned documents). She went in because she still felt so sick and felt like she was going to pass out and was very weak. Was admitted overnight. Then Tuesday the , pt went to [facility] ER for a second opinion. They found her WBC was elevated and put her on Levaquin. She is now having a productive cough of yellow phlegm and is coughing a lot. Pt had a lot of testing done at [facility]. ER follow up appt made for tomorrow at 120 pm with Amita Pope. Allergies As of Date: 01/02/2025 Noted Allergy Reaction DOXYCYCLINE 08/16/2006 ENTEX (PHENYLEPHRINE-GUAIFE NESIN) 10/20/2006 ERYTHROMYCIN 08/16/2006 12 - Shortness of Breath Comments: Can take zpak FLEXERIL (CYCLOBENZAPRINE HCL) 10/08/2011 3 - Cough Comments: denies OMNICEF (CEFDINIR) 07/11/2014 8 - GI Upset PENICILLIN G 08/16/2006 5 - Intolerance Comments: unknown reaction during childhood RISPERDAL (RISPERIDONE) 08/16/2006 7 - Swelling ULTRAM (TRAMADOL HCL) 08/16/2006 7 - Swelling VALTREX (VALACYCLOVIR HCL) 08/16/2006 2 - Rash Date Reviewed: 12/28/2024 Reviewed by: Meera Steele RN - Fully Assessed Reason for Visit: ER F/U [41] Prescriptions as of 01/02/2025 - gabapentin (NEURONTIN) 400 mg capsule Take 1 capsule by mouth three times a day for 180 days. - levoFLOXacin (LEVAQUIN) 500 mg tablet Take 1 tablet by mouth once daily for 6 days. - benzonatate (TESSALON PERLE) 100 mg capsule Take 1 capsule by mouth three times a day as needed for cough. - venlafaxine ER (EFFEXOR XR) 37.5 mg 24 hr capsule Take 1 capsule by mouth once daily. Add 37.5mg to current 150mg XL daily - venlafaxine ER (EFFEXOR XR) 150 mg 24 hr capsule Take 1 capsule by mouth once daily. - pantoprazole DR (PROTONIX) 40 mg tablet TAKE 1 TABLET BY MOUTH ON AN EMPTY STOMACH 1/2 HOUR BEFORE A MEAL TWICE DAILY - albuterol HFA (VENTOLIN HFA) 90 mcg/actuation inhaler Inhale 2 Puffs as instructed every 4 hours as needed for wheezing/shortness of breath. - cetirizine (ZYRTEC) 10 mg tablet Take 1 tablet by mouth once daily. - metoprolol succinate ER (TOPROL XL) 25 mg 24 hr tablet Take 0.5 tablets by mouth once daily. - nitroglycerin sublingual (NITROQUICK) 0.4 mg SL tablet Dissolve 1 tablet under the tongue every 5 minutes as needed for chest pain. - atorvastatin (LIPITOR) 40 mg tablet Take 1 tablet by mouth once daily. - aspirin, enteric coated (ASPIRIN, ENTERIC COATED) 81 mg EC tablet TAKE 1 TABLET BY MOUTH EVERY DAY - docusate sodium (COLACE) 100 mg capsule Take 1 capsule by mouth twice daily as needed for constipation. - acetaminophen (TYLENOL) 500 mg tablet Take 2 tablets by mouth every 8 hours as needed for pain. - COMBIVENT RESPIMAT 20-100 mcg/actuation inhaler INHALE 1 PUFF INSTRUCTED FOUR TIMES DAILY NEEDED. - nitroglycerin sublingual (NITROQUICK) 0.4 mg SL tablet Dissolve 1 tablet under the tongue every 5 minutes as needed for Chest Pain. Problem List As Of Date 01/02/2025 Noted Resolved Grief reaction [F43.21] 08/16/2006 Anxiety state [F41.1] 08/16/2006 Unspecified gastritis and gastroduodenitis with*08/16/2006 04/27/2017 Allergic rhinitis, cause unspecified [J30.9] 08/16/2006 04/27/2017 Lumbago [M54.50] 08/16/2006 Tobacco use disorder [F17.200] 08/16/2006 Fever and other physiologic disturbances of tem*07/04/2008 08/09/2012 PAIN ABDOMEN( Epigastric) [R10.13] 07/04/2008 08/09/2012 ABNORMAL XRAY ABDOMINAL [R93.5] 10/08/2008 09/24/2014 NAUSEA [R11.0] 10/08/2008 08/09/2012 ABDOMINAL PAIN( Periumbilical) [R10.33] 10/08/2008 08/09/2012 Cellulitis [L03.90] 09/17/2009 04/27/2017 Routine general medical examination at [facility]*01/15/2011 08/09/2012 Class: Chronic Routine gynecological examination [Z01.419] 01/15/2011 08/09/2012 Class: Chronic GERD (gastroesophageal reflux disease) [K21.9] 01/15/2011 PUD (peptic ulcer disease) [K27.9] 01/15/2011 Tinea versicolor [B36.0] 01/29/2011 09/24/2014 Post-inflammatory hyperpigmentation [L81.0] 01/29/2011 09/24/2014 Pruritus [L29.9] 01/29/2011 09/24/2014 Hyperlipidemia [E78.5] 05/22/2014 Coronary artery disease involving [place]*06/06/2014 Lymphadenopathy [R59.1] 06/06/2014 04/27/2017 Herpes simplex infection [B00.9] 03/18/2016 04/27/2017 Marijuana use [F12.90] 06/08/2018 Mild intermittent asthma with acute exacerbatio* 8 Chest pain [R07.9] 08/30/2018 08/30/2018 Polysubstance ab (more content not included)... Normal [facility] ED PROV NOTEon 12-29-2024 ED PROV NOTE HNO ID: [id number] Author: GI BAILEY MD Service: Emergency Medicine Author Type: Resident Type: ED Provider Notes Filed: 12/29/2024 17:33 Note Text: Attestation signed by Gi Bailey MD at 12/29/2024 5:33 PM Signature: Gi Bailey MD Date: 12/29/2024 Time: 5:33 PM ED CONTINUATION OF CARE NOTE Code Status: Full Code Assumed care from: Addis Gallardo MD Presentation / Findings / Interventions / Plan / Items to Follow Up: COVID RSV flu swab and chest x-ray Clinical Impressions as of 12/29/24 0148 Acute bacterial rhinosinusitis Sinus headache Medical Decision Making Patient's COVID RSV influenza swab resulted as negative. Chest x-ray additionally did not show any acute abnormalities. Patient had mild relief with previously given migraine/headache cocktail. Will plan to treat as outpatient bacterial rhinosinusitis with Levaquin given prior antibiotic exposure to azithromycin. Patient will be discharged home. SIGNATURE: Kevyn Love DO PATIENT NAME: Bev Gerardo Call DATE: December 29, 2024 TIME: 1:48 AM PAGER/CONTACT #: KEVYN LOVE 12/29/24 0150 GI BAILEY 12/29/24 8288 Normal [facility] XR CHEST 2V FRONTAL/LATon XR CHEST 2V FRONTAL/LAT * * *Final Repor t* * * DATE OF EXAM: Dec 29 2024 1:11AM AKX [id number] - XR CHEST 2V FRONTAL/LAT / PROCEDURE REASON: Cough * * * * Physician Interpretation * * * * CHEST RADIOGRAPH: PA and lateral views of the chest Exam Date/Time: 12/29/2024 1:11 AM Indication: Cough Comparison: Chest x-ray 11/14/2021 RESULTS: Lines, Tubes, and Devices: None Lungs and Pleura: The lungs are clear. No pleural effusion or pneumothorax. Cardiomediastinal silhouette: The mediastinal and cardiac silhouette are normal in size and contour. Other: The bones of the chest are unremarkable. IMPRESSION: No radiographic evidence of acute cardiopulmonary abnormality. Title I Teacher: BABAK Transcribe Date/Time: Dec 29 2024 3:48A Dictated by : SUSHMA GUILLAUME MD This examination was interpreted and the report reviewed and electronically signed by: SUSHMA GUILLAUME MD on Dec 29 2024 3:49AM EST [id number] Normal [facility] ALLIED HEALTHon 12-28-2024 ALLIED HEALTH HNO ID: [id number] Author: SALVADOR GALLARDO Tech Service: Radiology Author Type: Plant Protection Officer Type: Allied Health Filed: 12/28/2024 18:56 Note Text: Radiology Service Progress Note PATIENT NAME: Bev Webb DATE OF SERVICE: December 28, 2024 TIME: 6:56 PM PATIENT IDENTITY VERIFICATION COMPLETED USING TWO (2) IDENTIFIERS: Name and Date of confirmed by patient verbally and Name and Date of confirmed by identification band. FALL SCREENING: Has the patient had 2 falls in the last year or 1 fall with injury or currently using an Ambulatory Assistive Device (Walker, Cane, Wheelchair, Crutches, etc.)? Emergency Room Patient: Screened in ED PATIENT GENDER DATA: Assigned female at . status: : No status: NO. PATIENT RELEVANT IMPLANT DATA REVIEWED: Not Applicable PATIENT PRESENTS WITH AN IMPLANTABLE OR ATTACHED STUDENT LIFE ADVISOR: No RADIOLOGY DEPARTMENT: CT; Exam(s) Completed: Brain PERIPHERAL IV DATA: Not applicable SIGNED BY: Jg Mobley December 28, 2024 6:56 PM Normal [facility] CBC W Auto Differential pane l (Bld)on 12-28-2024 Basophils (Bld) [#/Vol] 0.06 10*3/uL Normal <0.11 [facility] Comment on above: Order Comment: Samson morrow Type: BLOOD SPECIMEN [facility] Facility[facility] Address: [address] [place] [address] Performed By: #### 5 7021-8 #### [facility] CLIA [id number] [address] [place] [address] [place] Basophils/100 WBC (Bld) 0.4 % Normal [facility] Comment on above: Order Comment: Specjuancarlos men Type: BLOOD SPECIMEN [facility] Facility: [facility] Address: [address] [place] [address] Performed By: #### 5 7021-8 #### [facility] CLIA [id number] [address] Differential cell count method Nom (Bld) Auto Normal [facility] Comment on above: Order Comment: Speci men Type: BLOOD SPECIMEN [facility] Facility: [facility] Address: [address] [place] [address] Performed By: #### 5 7021-8 #### [facility] CLIA [id number] [address] Eosinophils (Bld) [#/Vol] 0.40 10*3/uL Normal <0.46 [facility] Comment on above: Order Comment: Speci men Type: BLOOD SPECIMEN [facility] Address: [address] [place] [address] Performed By: #### 5 7021-8 #### [facility] CLIA [id number] [address] Eosinophils/100 WBC (Bld) 2.5 % Normal [facility] Comment on above: Order Comment: Speci men Type: BLOOD SPECIMEN Ordering Facility: [facility] Address: [address] [place] [address] Performed By: #### 5 7021-8 #### [facility] CLIA [id number] [address] Erythrocyte distribution width (RBC) [Ratio] 18.2 % High 11.5-15.0 [facility] Comment on above: Order Comment: Speci men Type: BLOOD SPECIMEN Ordering Facility: [facility] Address: [address] [place] [address] Performed By: #### 5 7021-8 #### [facility] CLIA [id number] [address] Hematocrit (Bld) [Volume fraction] 46.6 % High 36.0-46.0 [facility] Comment on above: Order Comment: Speci men Type: BLOOD SPECIMEN Ordering Facility: [facility] Address: [address] [place] [address] Performed By: #### 5 7021-8 #### [facility] CLIA [id number] [address] [place] Hemoglobin (Bld) [Mass/Vol] 14.5 g/dL Normal 11.5-15.5 [facility] Comment on above: Order Comment: Speci men Type: BLOOD SPECIMEN Ordering Facility: [facility] Address: [address] [place] [address] Performed By: #### 5 7021-8 #### [facility] CLIA [id number] [address] [place] Immature granulocytes (Bld) [#/Vol] 0.18 10*3/uL High <0.10 [facility] Comment on above: Order Comment: Speci men Type: BLOOD SPECIMEN Ordering Facility: [facility] Address: [address] [place] [address] Performed By: #### 5 7021-8 #### [facility] CLIA [id number] [address] [place] Immature granulocytes/100 WBC (Bld) 1.1 % Normal [facility] Comment on above: Order Comment: Speci men Type: BLOOD SPECIMEN Ordering Facility: [facility] Address: [address] [place] [address] Performed By: #### 5 7021-8 #### [facility] CLIA [id number] [address] [place] Lymphocytes (Bld) [#/Vol] 2.94 10*3/uL Normal 1.00-4.00 [facility] Comment on above: Order Comment: Speci men Type: BLOOD SPECIMEN Ordering Facility: [facility] Address: [address] [place] [address] Performed By: #### 5 7021-8 #### [facility] CLIA [id number] [address] [place] Lymphocytes/100 WBC (Bld) 18.5 % Normal [facility] Comment on above: Order Comment: Speci men Type: BLOOD SPECIMEN Ordering Facility: [facility] Address: [address] [place] [address] Performed By: #### 5 7021-8 #### [facility] CLIA [id number] [address] MCH (RBC) [Entitic mass] 27.6 pg Normal 26.0-34.0 [facility] Comment on above: Order Comment: Speci men Type: BLOOD SPECIMEN Ordering Facility: [facility] Address: [address] [place] [address] Performed By: #### 5 7021-8 #### [facility] CLIA [id number] [address] OF [facility] MCHC (RBC) [Mass/Vol] 31.1 g/dL Normal 30.5-36.0 [facility] Comment on above: Order Comment: Speci men Type: BLOOD SPECIMEN Ordering Facility: [facility] Address: [address] [place] [address] Performed By: #### 5 7021-8 #### [facility] CLIA [id number] [address] MCV (RBC) [Entitic vol] 88.6 fL Normal 80.0-100.0 [facility] Comment on above: Order Comment: Speci men Type: BLOOD SPECIMEN Ordering Facility: [facility] Address: [address] [place] [address] Performed By: #### 5 7021-8 #### [facility] CLIA [id number] [address] Monocytes (Bld) [#/Vol] 0.89 10*3/uL High <0.87 [facility] Comment on above: Order Comment: Speci men Type: BLOOD SPECIMEN Ordering Facility: [facility] Address: [address] [place] [address] Performed By: #### 5 7021-8 #### [facility] CLIA [id number] [address] Monocytes/100 WBC (Bld) 5.6 % Normal [facility] Comment on above: Order Comment: Speci men Type: BLOOD SPECIMEN Ordering Facility: [facility] Address: [address] [place] [address] Performed By: #### 5 7021-8 #### [facility] CLIA [id number] [address] [place] Neutrophils (Bld) [#/Vol] 11.46 10*3/uL High 1.45-7.50 [facility] Comment on above: Order Comment: Speci men Type: BLOOD SPECIMEN Ordering Facility: [facility] Address: [facility] [place] [address] Performed By: #### 5 7021-8 #### [facility] CLIA [id number] [address] [place] Neutrophils/100 WBC (Bld) 71.9 % Normal [facility] Comment on above: Order Comment: Speci men Type: BLOOD SPECIMEN Ordering Facility: [facility] Address: [address] [place] [address] Performed By: #### 5 7021-8 #### [facility] CLIA [id number] [address] [place] Nucleated RBC (Bld) [#/Vol] 10*3/uL Normal <0.01 [facility] Comment on above: Order Comment: Speci men Type: BLOOD SPECIMEN Ordering Facility: [facility] Address: [address] [place] [address] Performed By: #### 5 7021-8 #### [facility] CLIA [id number] [address] [place] Nucleated RBC/100 WBC (Bld) [Ratio] 0.0 /100 WBC Normal [facility] Comment on above: Order Comment: Speci men Type: BLOOD SPECIMEN Ordering Facility: [facility] Address: [address] [place] [address] Performed By: #### 5 7021-8 #### [facility] CLIA [id number] [address] [place] Platelet mean volume (Bld) [Entitic vol] 9.7 fL Normal 9.0-12.7 [facility] Comment on above: Order Comment: Speci men Type: BLOOD SPECIMEN Ordering Facility: [facility] Address: [address] [place] [address] Performed By: #### 5 7021-8 #### [facility] CLIA [id number] [address] OF [facility] Platelets (Bld) [#/Vol] 459 10*3/uL High 150-400 [facility] Comment on above: Order Comment: Speci men Type: BLOOD SPECIMEN Ordering Facility: [facility] Address: [address] [place] [address] Performed By: #### 5 7021-8 #### [facility] CLIA [id number] [address] RBC (Bld) [#/Vol] 5.26 10*6/uL High 3.90-5.20 [facility] Comment on above: Order Comment: Speci men Type: BLOOD SPECIMEN Ordering Facility: [facility] Address: [address] [place] [address] Performed By: #### 5 7021-8 #### [facility] CLIA [id number] [address] OF [facility] WBC (Bld) [#/Vol] 15.93 10*3/uL High 3.70-11.00 [facility] Comment on above: Order Comment: Speci men Type: BLOOD SPECIMEN Ordering Facility: [facility] Address: [address] [place] [address] Performed By: #### 5 7021-8 #### [facility] CLIA [id number] [address] OF [facility] CT BRAIN WO IVCONon 12-28-19 CT BRAIN WO IVCON * * *Final Report* * * DATE OF EXAM: Dec 28 2024 6:59PM [facility] 0504 - CT BRAIN WO IVCON / PROCEDURE REASON: Headache, sudden, severe * * * * Physician Interpretation * * * * EXAMINATION: CT BRAIN WO IVCON CLINICAL HISTORY: Headache, weakness TECHNIQUE: Serial axial images without IV contrast were obtained from the vertex to the foramen magnum. MQ: CTBWO_3 CT Radiation dose: Integrated Dose-Length Product (DLP) for this visit = 727 mGy*cm CT Dose Reduction Employed: Automated exposure control(AEC) and iterative recon COMPARISON: None. RESULT: Localizer images: Unremarkable. Post-operative change: None. Acute change: No evidence of an acute infarct or other acute parenchymal process. Hemorrhage: No evidence of acute intracranial hemorrhage. ECASS hemorrhagic transformation score: Not Applicable Mass Lesion / Mass Effect: There is no evidence of an intracranial mass or extraaxial fluid collection. No significant mass effect. Chronic change: None apparent. Parenchyma: There is no significant volume loss. The brain parenchyma is otherwise within normal limits for age. Ventricles: The ventricles are within normal limits of size and configuration for age. Paranasal sinuses and skull base: Extensive sinus mucosal thickening/opacificat ion. The skull base and imaged soft tissues are unremarkable. IMPRESSION: No acute intracranial process identified. Sinus mucosal thickening as can be seen with sinus inflammatory disease. Title I [facility] Transcribe Date/Time: Dec 28 2024 7:39P Dictated by : WARD SÁNCHEZ MD This examination was interpreted and the report reviewed and electronically signed by: WARD SÁNCHEZ MD on Dec 28 2024 7:40PM EST [id number] N Normal [facility] Comprehensive metabolic 2000 panelon 12-28-2024 Albumin [Mass/Vol] 4.4 g/dL Normal 3.9-4.9 [facility] Comment on above: Order Comment: Samson morrow Type: BLOOD SPECIMEN Ordering Facility: [facility] Address: [address] [place] [address] Performed By: #### 2 4323-8, 3039-3 #### [facility] CLIA [id number] 1 [place] [address] [place] ALP [Catalytic activity/Vol] 146 U/L High 34-123 [facility] Comment on above: Order Comment: Samson morrow Type: BLOOD SPECIMEN Ordering Facility: [facility] Address: [address] [place] [address] Performed By: #### 2 4323-8, 3040-3 #### [facility] CLIA [id number] 1 [place], [place] [id number] [place] [address] [place] ALT With P-5'-P [Catalytic activity/Vol] 40 U/L High 7-38 [facility] Comment on above: Order Comment: Speci men Type: BLOOD SPECIMEN Ordering Facility: [facility] Address: [address] [place] [address] Performed By: #### 2 4323-8, 3040-3 #### [facility] CLIA [id number] [address] [place] Anion gap [Moles/Vol] 13 mmol/L Normal 8-15 [facility] Comment on above: Order Comment: Speci men Type: BLOOD SPECIMEN Ordering Facility: [facility] Address: [address] [place] [address] Performed By: #### 2 43238, 0-3 #### [facility] CLIA [id number] [address] AST With P-5'-P [Catalytic activity/Vol] 21 U/L Normal 13-35 [facility] Comment on above: Order Comment: Speci men Type: BLOOD SPECIMEN Ordering Facility: [facility] Address: [address] [place] [address] Performed By: #### 2 4323-8, 0-3 #### [facility] CLIA [id number] [address] [place] Bilirubin [Mass/Vol] 0.2 mg/dL Normal 0.2-1.3 [facility] Comment on above: Order Comment: Speci men Type: BLOOD SPECIMEN Ordering Facility: [facility] Address: [address] [place] [address] Performed By: #### 2 4323-8, 3040-3 #### [facility] CLIA [id number] [address] [place] Calcium [Mass/Vol] 9.6 mg/dL Normal 8.5-10.2 [facility] Comment on above: Order Comment: Speci men Type: BLOOD SPECIMEN Ordering Facility: [facility] Address: [address] [place] [address] Performed By: #### 2 4323-8, 3040-3 #### [facility] CLIA [id number] 1 [place] [address] [place] Chloride [Moles/Vol] 99 mmol/L Normal 98-107 [facility] Comment on above: Order Comment: Speci men Type: BLOOD SPECIMEN Ordering Facility: [facility] Address: [address] [place] [address] Performed By: #### 2 4323-8, 3040-3 #### [facility] CLIA [id number] 1 [place] [address] [place] CO2 [Moles/Vol] 23 mmol/L Normal 22-30 [facility] Comment on above: Order Comment: Speci men Type: BLOOD SPECIMEN Ordering Facility: [facility] Address: [address] [place] [address] Performed By: #### 2 4323-8, 0-3 #### [facility] CLIA [id number] [address] [place] Creatinine [Mass/Vol] 0.88 mg/dL Normal 0.58-0.96 [facility] Comment on above: Order Comment: Speci men Type: BLOOD SPECIMEN Ordering Facility: [facility] Address: [address] [place] [address] Performed By: #### 2 4323-8, 3040-3 #### [facility] CLIA [id number] [address] [place] Creatinine and Glomerular filtration rate.predicted panel (S/P/Bld) 81 mL/min/1.73m??? Normal >=60 [facility] Comment on above: Order Comment: Speci men Type: BLOOD SPECIMEN Ordering Facility: [facility] Address: [address] [place] [address] Result Comment: Betty mated Glomerular Filtration Rate (eGFR) is calculated using the 2020 CKD-EPI creatinine equation. This equation utilizes serum creatinine, sex, and age as parameters. The creatinine assay has traceable calibration to isotope dilution-mass spectrometry. Refer to KDIGO guidelines for clinical interpretation. In patients with unstable renal function, e.g. those with acute kidney injury, the eGFR may not accurately reflect actual GFR. Performed By: #### 2 4323-8, 3040-3 #### [facility] CLIA [id number] 1 [place] [address] [place] Glucose [Mass/Vol] 106 mg/dL High 74-99 [facility] Comment on above: Order Comment: Samson morrow Type: BLOOD SPECIMEN Ordering Facility: [facility] Address: [address] [place] [id number] Result Comment: The [place] [employer] (ADA) provides guidance for cutoff values for fasting glucose and random glucose. The ADA defines fasting as no caloric intake for at least 8 hours. Fasting plasma glucose results between 100 to 125 mg/dL indicate increased risk for diabetes (prediabetes). Fasting plasma glucose results greater than or equal to 126 mg/dL meet the criteria for diagnosis of diabetes. In the absence of unequivocal hyperglycemia, results should be confirmed by repeat testing. In a patient with classic symptoms of hyperglycemia or hyperglycemic crisis, random plasma glucose results greater than or equal to 200 mg/dL meet the criteria for diagnosis of diabetes. Reference: Standards of Medical Care in Diabetes 2016, [place] [employer]. Diabetes Care. 2016.39(Suppl 1). Performed By: #### 2 4323-8, 0-3 #### [facility] CLIA [id number] 1 [place] [address] [place] Potassium [Moles/Vol] 4.4 mmol/L Normal 3.7-5.1 [facility] Comment on above: Order Comment: Samson morrow Type: BLOOD SPECIMEN Ordering Facility: [facility] Address: [address] [place] [address] Performed By: #### 2 4323-8, 3040-3 #### [facility] CLIA [id number] 1 [place] [address] [place] Protein [Mass/Vol] 7.9 g/dL Normal 6.3-8.0 [facility] Comment on above: Order Comment: Speci men Type: BLOOD SPECIMEN Ordering Facility: [facility] Address: [address] [place] [address] Performed By: #### 2 4323-8, 3040-3 #### [facility] CLIA [id number] [address] OF [facility] Sodium [Moles/Vol] 135 mmol/L Low 136-144 [facility] Comment on above: Order Comment: Speci men Type: BLOOD SPECIMEN Ordering Facility: [facility] Address: [address] [place] [address] Performed By: #### 2 4323-8, 3040-3 #### [facility] CLIA [id number] [address] [place] Urea nitrogen [Mass/Vol] 11 mg/dL Normal 7-21 [facility] Comment on above: Order Comment: Speci men Type: BLOOD SPECIMEN Ordering Facility: [facility] Address: [address] [place] [address] Performed By: #### 2 4323-8, 3040-3 #### [facility] CLIA [id number] [address] [place] ECG COMPLETEon 12-28-2024 ECG COMPLETE Ventricular Rate : 4 9 BPM Atrial Rate : 49 BPM P-R Interval : 132 ms QRS Duration : 84 ms Q-T Interval : 432 ms QTC Calculation(Bazett) : 390 ms Calculated P [place] : 36 degrees Calculated R [place] : 0 degrees Calculated T [place] : 78 degrees SINUS BRADYCARDIA MINIMAL VOLTAGE CRITERIA FOR LVH, MAY BE NORMAL VARIANT ( R in aVL ) NONSPECIFIC ST ABNORMALITY ABNORMAL ECG WHEN COMPARED WITH ECG OF 14-Sep-2017 19:37, NONSPECIFIC T WAVE ABNORMALITY NOW EVIDENT IN LATERAL LEADS Confirmed by MD ARTURO, DUC ([id number]) on 01/11/2025 11:00:12 PM NAME : BEV WEBB PID : [id number] : 1975 Gender : Female Race : ORD : [id number] Procedure Date : Dec 28 2024 17:47:45 Edit Date : Jan 11 2025 23:00:12 Diagnosis: SINUS BRADYCARDIA MINIMAL VOLTAGE CRITERIA FOR LVH, MAY BE NORMAL VARIANT ( R in aVL ) NONSPECIFIC ST ABNORMALITY ABNORMAL ECG WHEN COMPARED WITH ECG OF 14-Sep-2017 19:37, NONSPECIFIC T WAVE ABNORMALITY NOW EVIDENT IN LATERAL LEADS Confirmed by MD MORRIS THOMAS ([id number]) on 01/11/2025 11:00:12 PM Test Reason : Chest Pain Location : 4 : [facility] Overread By : MD MORRIS THOMAS Edited By : MD MORRIS THOMAS Referred By : , Acquired by : BI SAEED [facility] ED NOTEon 12-28-2024 ED NOTE HNO ID: [id number] Author: IVORY WALTON RN Service: Emergency Medicine Author Type: Registered Nurse Type: ED Notes Filed: 12/28/2024 22:52 Note Text: Son to pull this nurse to the side and state that pt also uses Kratom from the vape store. Unsure of when last use was and unsure of amount. notified. [facility] ED NOTE HNO ID: [id number] Author: IVORY WALTON RN Service: Emergency Medicine Author Type: Registered Nurse Type: ED Notes Filed: 12/28/2024 22:14 Note Text: Pt visitor to pull this nurse aside and state that pt has had an opioid addiction in the past and believes that pt is still occasionally using. Pt visitor states concerns of any pain medication that may be ordered for this pt. notified. [facility] ED NOTE HNO ID: [id number] Author: GI SHANNON RN Service: ? Author Type: Registered Nurse Type: ED Notes Filed: 12/28/2024 22:06 Note Text: Bed: 19-ED Expected date: Expected time: Means of arrival: Comments: TRIAGE [facility] ED NOTE HNO ID: [id number] Author: MEERA STEELE RN Service: ? Author Type: Registered Nurse Type: ED Notes Filed: 12/28/2024 17:56 Note Text: CT notified [facility] ED PROV NOTEon 12-28-2024 ED PROV NOTE HNO ID: [id number] Author: GI BAILEY MD Service: Emergency Medicine Author Type: Resident Type: ED Provider Notes Filed: 12/28/2024 23:31 Note Text: Attestation signed by Gi Bailey MD at 12/28/2024 11:31 PM Attending Attestation Note: Bustillos findings confirmed. I evaluated the patient in conjunction with the resident physician. I personally examined the patient. I discussed the patient with the resident physician. I reviewed the resident physician's note. I was present for bustillos portions of and personally supervised any/all procedures. I personally saw the patient and performed a substantive portion of the visit including all aspects of the medical decision making. Signature: Gi Bailey MD Date: 12/28/2024 Time: 11:30 PM ED Provider Note Patient Name: Bev Webb : 1975 SERVICE DATE: 12/28/24 History Patient presents with: Weakness: Pt arrives to triage c/o generalized weakness and fatigue. Denies CP, denies SOB This is a 49-year-old female who presents emergency department for generalized weakness and headache. History obtained from patient at the bedside. Patient states that 10 days ago she started to experience head congestion, was seen at urgent care, diagnosed with sinus infection and given Z-Antony. Patient states that she completed the course of antibiotics and actually felt worse. Given no improvement in symptoms she decided to go to [facility] this past Tuesday where she states that at one point she lost her pulse, CPR was initiated and she was subsequently admitted. Patient states that they did an extensive workup on her that ended up being negative. Patient presents today with worsening migraine headache, states Tylenol does not relieve symptoms. Patient has history of migraines, feels similar to previous migraines. She is also reporting sinus pressure, congestion. She denies fever sweats chills coughshortness of breath chest pain nausea vomiting abdominal pain urinary symptoms focal weakness constipation diarrhea melena hematochezia. She is well-appearing and in no acute distress upon my examination of her. Vital signs are within the normal limits. PAST MEDICAL HISTORY Diagnosis Date Abnormal mammogram, unspecified LEFT BREAST Abnormal Pap smear and cervical HPV (human papillomavirus) CAD (coronary artery disease) 2103 diffuse moderate CAD in the left main and RCA-40-50%, seeing Dr. Chase Centrilobular emphysema (HCC) Chronic cholecystitis 08/24/07 Chronic depressive personality disorder Chronic gastric ulcer without mention of hemorrhage, perforation, without mention of obstruction COPD with chronic bronchitis (HCC) Generalized anxiety disorder HTN (hypertension) Hyperlipidemia Incisional hernia without mention of obstruction or gangrene Irritable bowel syndrome Lumbago PONV (postoperative nausea and vomiting) Raynaud's phenomenon (by history or observed) Tobacco use disorder, continuous Daily smoker since age 16. PAST SURGICAL HISTORY Procedure Laterality Date APPENDECTOMY ENDOMETRIAL BX W/WO ENDOCERVIX BX W/O DILAT SPX 01/01/2009 Menorrhagia ESOPHAGOGASTRODUODENO SCOPY TRANSORAL DIAGNOSTIC 09/26/2012 EGD EXC BREAST LES PREOP PLMT RAD MARKER OPEN 1 LES 08/29/2009 left breast HEART CATHETERIZATION 11/07/2013 IMPLANT MESH OPN HERNIA RPR/DEBRIDEMENT CLOSURE 07/01/2008 LAPAROSCOPIC APPENDECTOMY LAPS SURG CHOLECYSTECTOMY W/CHOLANGIOGRAPHY 08/24/2007 LIG/TRNSXJ FLP TUBE ABDL/VAG APPR UNI/BI PREOP PLACEMENT NEEDLE LOC 08/29/2009 left breast REP INIT INCI/ VENTRAL HERNIA 11/27/2020 REPAIR FIRST ABDOMINAL WALL HERNIA 07/01/2008 REVISE MEDIAN N/CARPAL TUNNEL SURG Left 11/10/2022 Left CTR SEPTOPLASTY/SUBMUCOUS RESECJ W/WO CARTILAGE GRF 2001 +/- Akhil STEREOTACTIC CORE BIOPSY 07/09/2009 LEFT BREAST FAMILY HISTORY Problem Relation Age of Onset Hypertension Mother Diabetes Mother Systemic Lupus Erythematosus Mother Alcohol/Drug Father (cardiac issues from this) Diabetes Father Allergies Father Cancer Father Esophageal Coronary Artery Disease Maternal Grandmother Emphysema Paternal Grandfather Asthma Son Diabetes Sister Diabetes Brother Cancer Other All through my father's family. Social History Tobacco Use Smoking status: Every Day Current packs/day: 1.00 Average packs/day: 1 pack/day for 33.9 years (33.9 ttl pk-yrs) Types: Cigarettes Start date: 01/20/1991 Smokeless tobacco: Never Tobacco comments: Father smoked in childhood home, currently lives with a smoker who is willing to quit with patient. Vaping Use Vaping status: Never Used Substance and Sexual Activity Alcohol use: No Drug use: Yes Types: Marijuana Comment: Smokes 2-3 times a week Sexual acti (more content not included)... Normal [facility] ED Triage Noteon 12-28-2024 ED Triage Note HNO ID: [id number] Author: JOSE WALTON APRN.CNP Service: ? Author Type: Nurse Practitioner Type: ED Triage Notes Filed: 12/28/2024 17:49 Note Text: ED TRIAGE PROVIDER NOTE Patient Name: Bev Webb Service Date: 12/28/24 BRIEF HPI: This is a 49 year old female who presents to the ED with: multiple complaints. Having ear pressure lightheaded dizziness headache abdominal pain weakness and sob. She recently was on z pack for ear infection feels like she is still having pain and pressure. Was admitted to [facility] had a syncopal event and got chest compressions was admitted to icu and discharged after all came back negative concerned with her weakness. BRIEF EXAM: NAD Awake and Alert Non labored breathing No focal neurological deficits Hrrr Lungs clear No abdominal pain Throat non erythematous INITIAL WORKUP AND DECISION MAKING: Orders Placed This Encounter High Sensitivity Troponin T with Reflex for ED Chest Pain CBC + DIFF Urinalysis w Microscopic, reflex Culture COMP METABOLIC PANEL LIPASE BLD ECG COMPLETE SIGNATURE: Jose Walton APRN.CNP Normal [facility] HIGH SENSITIVITY TROPONIN T (INITIAL)on 12-28-2024 Troponin T.cardiac High sensitivity method [Mass/Vol] <6 Normal <12 [facility] Comment on above: Order Comment: Speci men Type: BLOOD SPECIMEN Ordering Facility: [facility] Address: [address] [place] [address] Performed By: #### L [id number] #### [facility] CLIA [id number] [address] [place] [address] HIGH SENSITIVITY TROPONIN T (SECOND)on 12-28-2024 Troponin T.cardiac High sensitivity method [Mass/Vol] <6 Normal <12 [facility] Comment on above: Order Comment: Speci men Type: BLOOD SPECIMEN Ordering Facility: [facility] Address: [address] [place] [address] Performed By: #### L [id number] #### [facility] CLIA [id number] [address] OF [facility] Lipase SerPl-cCncon 12-28-19 25 Lipase [Catalytic activity/Vol] 16 U/L Normal 16-61 [facility] Comment on above: Order Comment: Speci men Type: BLOOD SPECIMEN Ordering Facility: [facility] Address: [address] [place] [address] Performed By: #### 2 4323-8, 3040-3 #### [facility] CLIA [id number] [address] Urinalysis complete panel (U )on 12-28-2024 Bilirubin Ql (U) Negative Normal Negative [facility] Comment on above: Order Comment: Speci men Type: URINE SPECIMEN Ordering Facility: [facility] Address: [address] [place] [address] Performed By: #### 2 4356-8 #### [facility] CLIA [id number] [address] Clarity (Unsp spec) Turbid Abnormal Clear [facility] Comment on above: Order Comment: Speci men Type: URINE SPECIMEN Ordering Facility: [facility] Address: [address] [place] [address] Performed By: #### 2 4356-8 #### [facility] CLIA [id number] [address] Color (U) Yellow Normal yellow [facility] Comment on above: Order Comment: Speci men Type: URINE SPECIMEN Ordering Facility: [facility] Address: [address] [place] [address] Performed By: #### 2 4356-8 #### [facility] CLIA [id number] [address] Epithelial cells LM.HPF (Urine sed) [#/Area] Many Normal [facility] Comment on above: Order Comment: Speci men Type: URINE SPECIMEN Ordering Facility: [facility] Address: [address] [place] [address] Performed By: #### 2 4356-8 #### [facility] CLIA [id number] [address] Glucose Test strip (U) [Mass/Vol] Negative Normal Trace, Negative [facility] Comment on above: Order Comment: Speci men Type: URINE SPECIMEN Ordering Facility: [facility] Address: [address] [place] [address] Performed By: #### 2 4356-8 #### [facility] CLIA [id number] [address] Hemoglobin Ql (U) Trace Normal Negative, Trace [facility] Comment on above: Order Comment: Speci men Type: URINE SPECIMEN Ordering Facility: [facility] Address: [address] [place] [address] Performed By: #### 2 4356-8 #### [facility] CLIA [id number] [address] Ketones Ql (U) Negative Normal Negative, Trace [facility] Comment on above: Order Comment: Speci men Type: URINE SPECIMEN Ordering Facility: [facility] Address: [address] [place] [address] Performed By: #### 2 4356-8 #### [facility] CLIA [id number] [address] Leukocyte esterase Test strip Ql (U) 250 Cookie/uL Abnormal Negative, 25 Cookie/uL [facility] Comment on above: Order Comment: Speci men Type: URINE SPECIMEN Ordering Facility: [facility] Address: [address] [place] [address] Performed By: #### 2 4356-8 #### [facility] CLIA [id number] [address] [place] Nitrite Ql (U) Negative Normal Negative [facility] Comment on above: Order Comment: Speci men Type: URINE SPECIMEN Ordering Facility: [facility] Address: [address] [place] [address] Performed By: #### 2 4356-8 #### [facility] CLIA [id number] [address] [place] pH (U) 6.0 [pH] Normal 5.0-8.0 [facility] Comment on above: Order Comment: Speci men Type: URINE SPECIMEN Ordering Facility: [facility] Address: [address] [place] [address] Performed By: #### 2 4356-8 #### [facility] CLIA [id number] [address] [place] [facility] Protein (U) [Mass/Vol] Trace Normal Trace , Negative [facility] Comment on above: Order Comment: Speci men Type: URINE SPECIMEN Ordering Facility: [facility] Address: [address] [place] [address] Performed By: #### 2 4356-8 #### [facility] CLIA [id number] [address] RBC LM.HPF (Urine sed) [#/Area] 3-5 /HPF Abnormal 0-3 /HPF [facility] Comment on above: Order Comment: Speci men Type: URINE SPECIMEN Ordering Facility: [facility] Address: [address] [place] [address] Performed By: #### 2 4356-8 #### [facility] CLIA [id number] [address] [place] Specific gravity (U) [Rel density] 1.024 Normal 1.005-1.030 [facility] Comment on above: Order Comment: Speci men Type: URINE SPECIMEN Ordering Facility: [facility] Address: [address] [place] [address] Performed By: #### 2 4356-8 #### [facility] CLIA [id number] [address] Urobilinogen Ql (U) Normal Normal Normal [facility] Comment on above: Order Comment: Speci men Type: URINE SPECIMEN Ordering Facility: [facility] Address: [address] [place] [address] Performed By: #### 2 4356-8 #### [facility] CLIA [id number] [address] [place] WBC LM.HPF (Urine sed) [#/Area] 0-5 /HPF Normal 0-5 /HPF [facility] Comment on above: Order Comment: Speci men Type: URINE SPECIMEN Ordering Facility: [facility] Address: [address] [place] [address] Performed By: #### 2 4356-8 #### [facility] CLIA [id number] [address] Basic Metabolic Profile (BMP )on 12-27-2024 BUN/CRE 17.4 RATIO Normal -20 [facility] Comment on above: Performed By: #### L 500.2500, L100.0100, L501.9520 #### [facility] [address] [place], [address] CA,Total 8.6 mg/dL Normal 8.5-10.1 [facility] Comment on above: Performed By: #### L 500.2500, L100.0100, L501.9520 #### [facility] [address] [place], [address] Chloride [Moles/Vol] 109 mmol/L High 98-[address] [facility] Comment on above: Performed By: #### L 500.2500, L100.0100, L501.9520 #### [facility] [address] [place], [address] CO2 [Moles/Vol] 27.0 mmol/L Normal 21.0-32.0 [facility] Comment on above: Performed By: #### L 500.2500, L100.0100, L501.9520 #### [facility] [address] [place], [address] Creatinine [Mass/Vol] 0.69 mg/dL Normal 0.55-1.02 [facility] Comment on above: Result Comment: The validity of the calculated GFR GFRAA in patients over 70 years has not been determined. Clinical correlation is essential. Performed By: #### L 500.2500, L100.0100, L501.9520 #### [facility] [address] [place], [address] ECRCL 96.96 ml/min Normal [facility] Comment on above: Performed By: #### L 500.2500, L100.0100, L501.9520 #### [facility] [address] [place], [address] EST GFR - AA 116 mL/min Normal >60 [facility] Comment on above: Result Comment: Afri can Eritrean GFR Calc Performed By: #### L 500.2500, L100.0100, L501.9520 #### [facility] [address] [place], [address] GAP 4 Low 5-15 [facility] Comment on above: Performed By: #### L 500.2500, L100.0100, L501.9520 #### [facility] [address] [place], [address] GFR/1.73 sq M.predicted among non-blacks MDRD (S/P/Bld) [Vol rate/Area] 96 mL/min/{1.73_m2} Normal >60 [facility] Comment on above: Result Comment: Non- GFR Calc Performed By: #### L 500.2500, L100.0100, L501.9520 #### [facility] [address] [place], [address] Glucose [Mass/Vol] 92 mg/dL Normal 74-106 [facility] Comment on above: Performed By: #### L 500.2500, L100.0100, L501.9520 #### [facility] [address] [place], [address] Potassium [Moles/Vol] 4.1 mmol/L Normal 3.5-5.1 [facility] Comment on above: Performed By: #### L 500.2500, L100.0100, L501.9520 #### [facility] [address] [place], [address] Sodium [Moles/Vol] 140 mmol/L Normal 136-145 [facility] Comment on above: Performed By: #### L 500.2500, L100.0100, L501.9520 #### [facility] [address] [place], [address] Urea nitrogen [Mass/Vol] 12 mg/dL Normal 7-18 [facility] Comment on above: Performed By: #### L 500.2500, L100.0100, L501.9520 #### [facility] [address] [place], [address] CBC W/Diff, Automatedon 02-2 0-2025 Absolute Lymph 3.85 X10 3/uL Normal 0.83-4.51 [facility] Comment on above: Performed By: #### L 500.2500, L100.0100, L501.9520 #### [facility] [address] [place], [address] Absolute Neut 4.8 X10 3/uL Normal 2.0-7.7 [facility] Comment on above: Performed By: #### L 500.2500, L100.0100, L501.9520 #### [facility] [address] [place], [address] Basophils/100 WBC (Bld) 0.7 % Normal 0-1 [facility] Comment on above: Performed By: #### L 500.2500, L100.0100, L501.9520 #### [facility] [address] [place], [address] Eosinophils/100 WBC (Bld) 3.9 % Normal 0-5 [facility] Comment on above: Performed By: #### L 500.2500, L100.0100, L501.9520 #### [facility] [address] [place], [address] Erythrocyte distribution width (RBC) [Ratio] 18.0 % High 11.6-14.6 [facility] Comment on above: Performed By: #### L 500.2500, L100.0100, L501.9520 #### [facility] [address] [place], [address] Hematocrit (Bld) [Volume fraction] 41.1 % Normal 37-47 [facility] Comment on above: Performed By: #### L 500.2500, L100.0100, L501.9520 #### [facility] [address] [place], [address] Hemoglobin (Bld) [Mass/Vol] 12.7 g/dL Normal 12.0-15.0 [facility] Comment on above: Performed By: #### L 500.2500, L100.0100, L501.9520 #### [facility] [address] [place], [address] IG% 1.000 High 0.0-0.9 [facility] Comment on above: Result Comment: IG% - Immature Granulocytes (promyelocytes, myelocytes and metamyelocytes) > 1% indicates that a LEFT SHIFT is Present. Performed By: #### L 500.2500, L100.0100, L501.9520 #### [facility] [address] [place], [address] Lymphocytes/100 WBC (Bld) 38.8 % Normal 19-41 [facility] Comment on above: Performed By: #### L 500.2500, L100.0100, L501.9520 #### [facility] [address] [place], [address] MCH (RBC) [Entitic mass] 27.1 pg Normal 27.0-32.0 [facility] Comment on above: Performed By: #### L 500.2500, L100.0100, L501.9520 #### [facility] [address] [place], [address] MCHC (RBC) [Mass/Vol] 30.9 g/dL Low 32-36 [facility] Comment on above: Performed By: #### L 500.2500, L100.0100, L501.9520 #### [facility] [address] [place], [address] MCV (RBC) [Entitic vol] 87.8 fL Normal 81-99 [facility] Comment on above: Performed By: #### L 500.2500, L100.0100, L501.9520 #### [facility] [address] [place], [address] Monocytes/100 WBC (Bld) 7.5 % Normal 0-10 [facility] Comment on above: Performed By: #### L 500.2500, L100.0100, L501.9520 #### [facility] [address] [place], [address] Neutrophils/100 WBC (Bld) 48.1 % Normal 47-70 [facility] Comment on above: Performed By: #### L 500.2500, L100.0100, L501.9520 #### [facility] [address] [place], [address] Nucleated RBC (Bld) [#/Vol] 0 10*3/uL Normal 0-5 [facility] Comment on above: Performed By: #### L 500.2500, L100.0100, L501.9520 #### [facility] [address] [place], [address] Platelet mean volume (Bld) [Entitic vol] 10.2 fL Normal 6.2-12.0 [facility] Comment on above: Performed By: #### L 500.2500, L100.0100, L501.9520 #### [facility] [address] [place], [address] Platelets (Bld) [#/Vol] 380 10*3/uL Normal 150-450 [facility] Comment on above: Performed By: #### L 500.2500, L100.0100, L501.9520 #### [facility] [address] [place], [address] RBC (Bld) [#/Vol] 4.68 10*6/uL Normal 4.2-5.4 [facility] Comment on above: Performed By: #### L 500.2500, L100.0100, L501.9520 #### [facility] [address] [place], [address] RDW SD 57.9 fl High 35.1-43.9 [facility] Comment on above: Performed By: #### L 500.2500, L100.0100, L501.9520 #### [facility] [address] [place], [address] WBC (Bld) [#/Vol] 9.9 10*3/uL Normal 4.4-11.0 [facility] Comment on above: Performed By: #### L 500.2500, L100.0100, L501.9520 #### [facility] [address] [place], [address] Discharge Instructionon 12-09 Discharge Instruction [facility] Medical Records Department [address] [place] [address] Instructions for Home/Discharge Instructions 12/27/24 1152 MR#: [id number] Acct: [id number] Name: BEV WEBB Rep #: [id number] : 1975 49 From: Singh Tenorio MD PCP: Dr. Martinez Garcia MD Status:ADM IN Discharge Instructions Diet Discharge Diet: No restrictions DC O2, CPAP, BIPAP needs Home O2 Discharge instructions: No Dressing / Incision Discharge Activity: Return to Normal Activity Weight Bearing Status: Weight bearing as tolerated Dressing / Incision Call your doctor if you observe: Fever of 101 or Higher, Coldness, Increased Pain, Numbness or Tingling, Change in Color, Inability to urinate, Inability to have a bowel movement, Shortness of breath, Dizziness, Fainting spells, Swelling in the ankles, Chest pain, Prolonged hiccupping, Increased palpitations (irregular heartbeat) and Calf discomfort Follow Up Care When: IN 2 WEEKS Test Results: Test results from this visit will be discussed in further detail at your follow-up appointment, if applicable. Discharge Plan Admission Admit Date/Time: 12/26/24 15:28 Primary Reason for Your Visit: Hypotension/syncope. Attending Provider: Singh Tenorio Primary Care Provider: Martinez Garcia Consulting Providers: Daphne Hernández Discharge Orders/Prescriptions Prescriptions: Continued pantoprazole 40 MG tablet 40 mg PO BID Patient Comments: ACID REFLUX/GERD cetirizine 10 MG tablet 10 mg PO DAILY gabapentin 400 MG capsule 400 mg PO TID venlafaxine 150 MG tablet extended release 24hr 150 mg PO DAILY albuterol sulfate 90 mcg/actuation HFA aerosol inhaler 2 puff INHALATION Q4H PRN PRN (Reason: wheezing) isosorbide mononitrate 30 mg tablet extended release 24 hr 30 mg PO DAILY Qty: 30 0RF Patient Comments: has not been taking regularly Rx Instructions: Hold for SBP less than 130 mmHg venlafaxine 37.5 mg capsule,extended release 24hr 37.5 mg PO DAILY aspirin 81 mg capsule 81 mg PO DAILY Qty: 1 0RF atorvastatin 40 mg tablet 40 mg PO QHS Qty: 30 0RF Referrals / Follow Up: Martinez Garcia MD [Primary Care Provider] - Within 2 Weeks Disposition Disposition (needs filled in before D/C Order can be placed): Home, Self Care 12/27/24 1317 Singh Tenorio MD CC: Dr. Daphne Hernández MD; Dr. Martinez Garcia MD Signed Normal [facility] RESPIRATORY PANEL MOLECULARo n 12-27-2024 RP PANEL ADENOVIRUS Not Detected INFLUENZA A Not Detected INFLUENZA A (SUBTYPE H1) Not Detected INFLUENZA A (SUBTYPE H3) Not Detected INFLUENZA B Not Detected HUMAN METAPHNEUMO Not Detected PARAINFLUENZA 1 Not Detected PARAINFLUENZA 2 Not Detected PARAINFLUENZA 3 Not Detected PARAINFLUENZA 4 Not Detected RHINOVIRUS Not Detected RSV A Not Detected RSV B Not Detected Normal [facility] Comment on above: Performed By: #### M 100.638 #### [facility] [address] [place], [address] Thyroid Stim Hormone (TSH)on 12-27-2024 TSH 0.828 uIU/mL Normal 0.358-3.740 [facility] Comment on above: Performed By: #### L 500.2500, L100.0100, L501.9520 #### [facility] [address] [place], [address] Basic Metabolic Profile (BMP )on 12-26-2024 BUN/CRE 13.3 RATIO Normal 10-20 [facility] Comment on above: Performed By: #### L 500.3400, L501.5200, L501.9520, L501.5425, L100.0100, L500.2500 #### [facility] [address] [place], [address] CA,Total 8.9 mg/dL Normal 8.5-10.1 [facility] Comment on above: Performed By: #### L 500.3400, L501.5200, L501.9520, L501.5425, L100.0100, L500.2500 #### [facility] [address] [place], [address] Chloride [Moles/Vol] 106 mmol/L Normal 98-[address] [facility] Comment on above: Performed By: #### L 500.3400, L501.5200, L501.9520, L501.5425, L100.0100, L500.2500 #### [facility] [address] [place], [address] CO2 [Moles/Vol] 24.0 mmol/L Normal 21.0-32.0 [facility] Comment on above: Performed By: #### L 500.3400, L501.5200, L501.9520, L501.5425, L100.0100, L500.2500 #### [facility] [address] [place], [address] Creatinine [Mass/Vol] 0.90 mg/dL Normal 0.55-1.02 [facility] Comment on above: Result Comment: The validity of the calculated GFR GFRAA in patients over 70 years has not been determined. Clinical correlation is essential. Performed By: #### L 500.3400, L501.5200, L501.9520, L501.5425, L100.0100, L500.2500 #### [facility] [address] [place], [address] ECRCL 73.54 ml/min Normal [facility] Comment on above: Performed By: #### L 500.3400, L501.5200, L501.9520, L501.5425, L100.0100, L500.2500 #### [facility] [address] [place], [address] EST GFR - AA 85 mL/min Normal >60 [facility] Comment on above: Result Comment: Afri can Eritrean GFR Calc Performed By: #### L 500.3400, L501.5200, L501.9520, L501.5425, L100.0100, L500.2500 #### [facility] [address] [place], [address] GAP 8 Normal 5-15 [facility] Comment on above: Performed By: #### L 500.3400, L501.5200, L501.9520, L501.5425, L100.0100, L500.2500 #### [facility] [address] [place], [address] GFR/1.73 sq M.predicted among non-blacks MDRD (S/P/Bld) [Vol rate/Area] 70 mL/min/{1.73_m2} Normal >60 [facility] Comment on above: Result Comment: Non- GFR Calc Performed By: #### L 500.3400, L501.5200, L501.9520, L501.5425, L100.0100, L500.2500 #### [facility] [address] [place], [address] Glucose [Mass/Vol] 116 mg/dL High 74-106 [facility] Comment on above: Result Comment: Fast ing Glucose result from 100 to 125 mg/dL suggests IMPAIRED HOMEOSTASIS per A.D.A. criteria. Performed By: #### L 500.3400, L501.5200, L501.9520, L501.5425, L100.0100, L500.2500 #### [facility] [address] [place], [address] Potassium [Moles/Vol] 3.5 mmol/L Normal 3.5-5.1 [facility] Comment on above: Performed By: #### L 500.3400, L501.5200, L501.9520, L501.5425, L100.0100, L500.2500 #### [facility] [address] [place], [address] Sodium [Moles/Vol] 138 mmol/L Normal 136-145 [facility] Comment on above: Performed By: #### L 500.3400, L501.5200, L501.9520, L501.5425, L100.0100, L500.2500 #### [facility] [address] [place], [address] Urea nitrogen [Mass/Vol] 12 mg/dL Normal 7-18 [facility] Comment on above: Performed By: #### L 500.3400, L501.5200, L501.9520, L501.5425, L100.0100, L500.2500 #### [facility] [address] [place], [address] Brain/Head without Contrasto n 12-26-2024 Brain/Head without Contrast [facility] [address] [place] [address] Brain/Head without Contrast MR#: [id number] Acct: [id number] Name: BEV WEBB Rep #: [id number] : 1975 F 49 From: Irving Gutierrez MD PCP: Dr. Martinez Garcia MD Status: [facility] Study: Brain/Head without Contrast Date of Exam: 12/08 08/01 Exam# [id number] Ordering Dr: Azra Flores DO EXAM: CT BRAIN WITHOUT CONTRAST CLINICAL HISTORY: HEADACHE. COMPARISON: NO RELEVANT PRIOR. TECHNIQUE: Contiguous axial scans of 3.75 mm slice thicknesses with sagittal and coronal reconstruction images. One or more dose reduction techniques were utilized (e.g., automated exposure control, adjustment of mA and/or kv according to patient size, use of iterative reconstruction technique). FINDINGS: No intraparenchymal hemorrhage. No abnormal areas of encephalomalacia. No mass effect or midline shift. [place]-white matter differentiation is normal. Ventricles and cisterns are appropriate size for patient's age. No extra-axial fluid collections. Cerebellum and posterior fossa unremarkable. Mucoperiosteal thickening involving the ethmoid, bilateral maxillary, and right side of the sphenoid sinuses. Mastoid air cells are normal. Calvarium unremarkable. Soft tissues unremarkable. CT/Brain/Head without Contrast IMPRESSION: 1. No acute intracranial findings. 2. Ethmoid, bilateral maxillary, and sphenoid sinus inflammation. Reading Location: [place] CC: Dr. Azra Flores DO; Dr. Martinez Garcia MD Title I Teacher: Signed Normal [facility] CBC W/Diff, Automatedon 02- Absolute Lymph 5.53 X10 3/uL High 0.83-4.51 [facility] Comment on above: Performed By: #### L 500.3400, L501.5200, L501.9520, L501.5425, L100.0100, L500.2500 #### [facility] [address] [place], [address] Absolute Neut 5.7 X10 3/uL Normal 2.0-7.7 [facility] Comment on above: Performed By: #### L 500.3400, L501.5200, L501.9520, L501.5425, L100.0100, L500.2500 #### [facility] [address] [place], [address] Basophils/100 WBC (Bld) 0.5 % Normal 0-1 [facility] Comment on above: Performed By: #### L 500.3400, L501.5200, L501.9520, L501.5425, L100.0100, L500.2500 #### [facility] [address] [place], [address] Eosinophils/100 WBC (Bld) 3.2 % Normal 0-5 [facility] Comment on above: Performed By: #### L 500.3400, L501.5200, L501.9520, L501.5425, L100.0100, L500.2500 #### [facility] [address] [place], [address] Erythrocyte distribution width (RBC) [Ratio] 18.0 % High 11.6-14.6 [facility] Comment on above: Performed By: #### L 500.3400, L501.5200, L501.9520, L501.5425, L100.0100, L500.2500 #### [facility] [address] [place], [address] Hematocrit (Bld) [Volume fraction] 39.1 % Normal 37-47 [facility] Comment on above: Performed By: #### L 500.3400, L501.5200, L501.9520, L501.5425, L100.0100, L500.2500 #### [facility] [address] [place], [address] Hemoglobin (Bld) [Mass/Vol] 12.0 g/dL Normal 12.0-15.0 [facility] Comment on above: Performed By: #### L 500.3400, L501.5200, L501.9520, L501.5425, L100.0100, L500.2500 #### [facility] [address] [place], [address] IG% 1.200 High 0.0-0.9 [facility] Comment on above: Result Comment: IG% - Immature Granulocytes (promyelocytes, myelocytes and metamyelocytes) > 1% indicates that a LEFT SHIFT is Present. Performed By: #### L 500.3400, L501.5200, L501.9520, L501.5425, L100.0100, L500.2500 #### [facility] [address] [place], [address] Lymphocytes/100 WBC (Bld) 42.1 % High 19-41 [facility] Comment on above: Performed By: #### L 500.3400, L501.5200, L501.9520, L501.5425, L100.0100, L500.2500 #### [facility] [address] [place], [address] MCH (RBC) [Entitic mass] 27.1 pg Normal 27.0-32.0 [facility] Comment on above: Performed By: #### L 500.3400, L501.5200, L501.9520, L501.5425, L100.0100, L500.2500 #### [facility] [address] [place], [address] MCHC (RBC) [Mass/Vol] 30.7 g/dL Low 32-36 [facility] Comment on above: Performed By: #### L 500.3400, L501.5200, L501.9520, L501.5425, L100.0100, L500.2500 #### [facility] [address] [place], [address] MCV (RBC) [Entitic vol] 88.5 fL Normal 81-99 [facility] Comment on above: Performed By: #### L 500.3400, L501.5200, L501.9520, L501.5425, L100.0100, L500.2500 #### [facility] [address] [place], [address] Monocytes/100 WBC (Bld) 9.7 % Normal 0-10 [facility] Comment on above: Performed By: #### L 500.3400, L501.5200, L501.9520, L501.5425, L100.0100, L500.2500 #### [facility] [address] [place], [address] Neutrophils/100 WBC (Bld) 43.3 % Low 47-70 [facility] Comment on above: Performed By: #### L 500.3400, L501.5200, L501.9520, L501.5425, L100.0100, L500.2500 #### [facility] [address] [place], [address] Nucleated RBC (Bld) [#/Vol] 0 10*3/uL Normal 0-5 [facility] Comment on above: Performed By: #### L 500.3400, L501.5200, L501.9520, L501.5425, L100.0100, L500.2500 #### [facility] [address] [place], [address] Platelet mean volume (Bld) [Entitic vol] 9.8 fL Normal 6.2-12.0 [facility] Comment on above: Performed By: #### L 500.3400, L501.5200, L501.9520, L501.5425, L100.0100, L500.2500 #### [facility] [address] [place], [address] Platelets (Bld) [#/Vol] 377 10*3/uL Normal 150-450 [facility] Comment on above: Performed By: #### L 500.3400, L501.5200, L501.9520, L501.5425, L100.0100, L500.2500 #### [facility] [address] [place], [address] RBC (Bld) [#/Vol] 4.42 10*6/uL Normal 4.2-5.4 [facility] Comment on above: Performed By: #### L 500.3400, L501.5200, L501.9520, L501.5425, L100.0100, L500.2500 #### [facility] [address] [place], [address] RDW SD 58.4 fl High 35.1-43.9 [facility] Comment on above: Performed By: #### L 500.3400, L501.5200, L501.9520, L501.5425, L100.0100, L500.2500 #### [facility] [address] [place], [address] WBC (Bld) [#/Vol] 13.1 10*3/uL High 4.4-11.0 [facility] Comment on above: Performed By: #### L 500.3400, L501.5200, L501.7191, L501.3723, L100.0100, L500.2500 #### [facility] [address] [place], [address] CTA Chst, Abd, Pel W and/or WOon 12-26-2024 CTA Chst, Abd, Pel W and/or WO [facility] Imaging Services [address] [place] [address] CTA Chst, Abd, Pel W and/or WO MR#: [id number] Acct: [id number] Name: BEV WEBB Rep #: [id number] : 1975 F 49 From: Vijay garcia MD PCP: Dr. Martinez Garcia MD Status: PRE ER Study: CTA Chst, Abd, Pel W and/or WO Date of Exam: 0 12/26/24 Exam# [id number] Ordering Dr: Azra Flores DO PROCEDURE: CTA CHST, ABD, PEL W AND/OR WO REASON FOR EXAM: Flu-like symptoms. Syncopal episodes. CPR performed. TECHNIQUE: Chest, abdomen and pelvis CT with intravenous contrast. No oral contrast. CONTRAST: 100 cc of Isovue 370. COMPARISON: Comparison is made with prior CT scan of the abdomen and pelvis dated May 05, 2022. FINDINGS: CT CHEST: Hardware: None. Lymph nodes: No mediastinal hilar or axillary lymphadenopathy. Heart and Vasculature: Normal heart size. No pericardial effusion. Atherosclerotic calcifications of the thoracic aorta. Pulmonary arteries are unremarkable. Lungs and Airways: There is a 1.4 cm noncalcified nodule in the peripheral lateral aspect of the left lung apex. Bullous formation in both lung apices worse on the right side. Emphysematous changes worse in the right upper lobe. Pleura: No pleural effusion. No pneumothorax. Bones: Unremarkable. CT ABDOMEN/PELVIS: Liver: Diffuse fatty infiltration. Hepatomegaly. Gallbladder: Surgically absent. Spleen: Unremarkable. Pancreas: Unremarkable. Adrenals: Unremarkable. Kidneys: Unremarkable. Bladder: Unremarkable. Reproductive Organs: Unremarkable. Bowel: Unremarkable. Appendix: Normal. Lymph nodes: No suspicious lymph node enlargement. Vasculature: Mild atherosclerotic calcifications are noted. Peritoneum / Retroperitoneum: No ascites. No free air. Bones: Unremarkable. CT/CTA Chst, Abd, Pel W and/or WO IMPRESSION: 1.4 cm noncalcified nodule in the lateral aspect of the left lung apex. Emphysema with bullous formation worse in the right hemithorax. Hepatomegaly and diffuse fatty infiltration of the liver. Status post cholecystectomy. One or more dose reduction techniques were used (e.g., Automated exposure control, adjustment of the mA and/or kV according to patient size, use of iterative reconstruction technique). Reading Location: [place] [address] CC: Dr. Azra Flores DO; Dr. Martinez Garcia MD Title I Teacher: Signed Normal [facility] Echo Completeon 12-26-2024 Echo Complete [facility] [address] [place] [address] Echo Complete 12/27/24 0906 MR#: [id number] Acct: [id number] Name: BEV WEBB Rep #: [id number] : 1975 49 From: Lisa Marley MD Attending Dr: Dr. Singh Tenorio MD Status: ADM IN Ordering Dr: Daphne Hernández MD Date: 12/26/24 Location: ICU Sex: F C Admitted: 12/26/24 Reason For Study Reason For Study: Syncope Procedure This was a 2D Doppler, Color Flow transthoracic echocardiogram. Exam performed portable in ICU/CCU. Left Ventricle Normal LV size. Mild concentric left ventricular hypertrophy. Left ventricular systolic function is normal. The left ventricular ejection fraction is 60 %. Stage 1 diastolic dysfunction. Right Ventricle Normal right ventricle. Atria The left and right atria are normal. Mitral Valve Trivial mitral valve insufficiency. Tricuspid Valve Normal tricuspid valve. Aortic Valve Trisinus/trileaflet aortic valve. Pulmonic Valve The pulmonic valve is not well visualized. Great Vessels Normal sized aortic root. Pericardium/Pleural No pericardial effusion. MMode/2D Measurements Calculations LVIDd: 4.2 cm IVSd: 1.2 cm Ao root diam: 2.7 cm LVIDs: 2.7 cm LVPWd: 1.2 cm RVDd: 3.3 cm FS: 35.1 % LAV(MOD-bp): 32.1 ml LVAd ap4: 23.8 cm2 LVAd ap2: 28.6 cm2 LAV(MOD-bp) Indexed: 18.0 ml/m2 LVLd ap4: 8.2 cm LVLd ap2: 8.3 cm LAV(MOD-sp2): 30.6 ml EDV(MOD-sp4): 56.6 ml EDV(MOD-sp2): 83.4 ml LAV(MOD-sp4): 33.8 ml EDV(sp4-el): 58.6 ml EDV(sp2-el): 83.4 ml LVAs ap4: 14.1 cm2 LVAs ap2: 17.3 cm2 LVLs ap4: 7.3 cm LVLs ap2: 7.4 cm ESV(MOD-sp4): 23.3 ml ESV(MOD-sp2): 35.2 ml ESV(sp4-el): 23.0 ml ESV(sp2-el): 34.3 ml EF(MOD-sp4): 58.8 % EF(MOD-sp2): 57.8 % EF(sp4-el): 60.7 % SV(MOD-sp4): 33.3 ml SV(MOD-sp2): 48.2 ml SV(sp4-el): 35.5 ml SI(MOD-sp4): 18.7 ml/m2 SI(MOD-sp2): 27.0 ml/m2 LA A4 area: 15.0 cm2 LA dimension(2D): 3.8 cm RA A4 area: 11.5 cm2 TAPSE: 1.8 cm Time Measurements MV dec time: 0.24 sec Doppler Measurements Calculations MV E max ada: 78.2 cm/sec Lat Peak E' Ada: 11.2 cm/sec Med Peak E' Ada: 7.6 cm/sec MV A max ada: 81.4 cm/sec E/E' lat: 7.0 E/E' med: 10.3 MV E/A: 0.96 Ao V2 max: 139.0 cm/sec LV V1 max: 120.4 cm/sec MV dec slope: 321.2 cm/sec2 Ao max P.7 mmHg LV V1 max P.8 mmHg Ao V2 mean: 88.5 cm/sec LV V1 mean P.9 mmHg Ao mean P.7 mmHg LV V1 mean: 79.9 cm/sec Ao V2 VTI: 27.5 cm LV V1 VTI: 24.0 cm AV (velocity ratio): 0.87 PA V2 max: 85.4 cm/sec ECHO/Echo Complete Interpretation Summary Mild concentric left ventricular hypertrophy. The left ventricular ejection fraction is 60 %. Stage 1 diastolic dysfunction. Ordering Physician: Daphne Hernández Referring Physician: Martinez Garcia Performed By: Sharon Queen RDCS 12/27/24 1239 Date Lisa Marley MD CC: Dr. Daphne Hernández MD; Dr. Singh Tenorio MD; Dr. Martinez Garcia MD Date Dictated: 12/27/2406 Date Transcribed: 12/27/24 1239 Title I Teacher: Signed Normal [facility] Emergency Department Summary on 12-26-2024 Emergency Department Summary [facility] Medical Records Department [address] [place] [address] Emergency Department Summary 12/26/24 MR#: [id number] Acct: [id number] Name: BEV WEBB Rep #: [id number] : 1975 49 From: Azra Flores DO PCP: Dr. Martinez Garcia MD Status:ADM IN Location: ICU [id number] HPI History of Present Illness Chief Complaint: Flank Pain Informant: patient and spouse/S.O. Narrative Narrative: Patient is a 49-year-old female with history of COPD, coronary artery disease, tobacco use and hypertension presenting initially for flulike symptoms, lightheadedness/near syncope and right-sided flank pain. She states she has been having flulike symptoms for couple days and started having this flank pain. This morning she felt she was going to pass out which is what prompted her to come to the emergency room. While patient was being triaged she started to feel like she needed to lay down. The nurses tried to get vital signs and then patient went unresponsive. Initially nurse thought she was maybe having a syncopal episode but she did not feel any palpable pulses and lowered her to the ground and started chest compressions. Patient reportedly had agonal breathing. She had 5 to 10 seconds of chest compressions before waking up. RYANNE DAIGLE called in the emergency room. Patient come to by the time I arrived. Was taken from triage to ER room. Patient denied any chest pain. Is able to give me full HPI. [facility] Medical History Essential (primary) hypertension Atherosclerotic heart disease of [place] coronary artery without angina pectoris Stomach ulcer Heart disease Shoulder pain Hemorrhoids Lung disease Arthritis Home Medications ???Medication ???Instructions ???Recorded ???Last Taken ???Type pantoprazole 40 mg tablet,delayed 40 mg PO BID gerd 04/09/14 History release cetirizine 10 mg tablet 10 mg PO DAILY allergies 04/14/20 06/14/23 History gabapentin 400 mg capsule 400 mg PO TID nerve pain 06/17/20 06/17/20 History venlafaxine 150 mg tablet,extended 150 mg PO DAILY depression 06/1706/14/23 History release 24 hr venlafaxine 37.5 mg 37.5 mg PO DAILY 09/12/24 Unknown History capsule,extended release 24 hr aspirin 81 mg capsule 81 mg PO DAILY #1 cap 10/03/24 Unk nown Rx atorvastatin 40 mg tablet 40 mg PO QHS #30 tabs 10/03/24 Unk nown Rx isosorbide mononitrate 30 mg 30 mg PO DAILY #30 tabs 10/03/24 U nknown Rx tablet,extended release 24 hr albuterol sulfate 90 mcg/actuation 2 puff inhalation Q4H PRN PRN Unknown History aerosol inhaler wheezing Allergy/AdvReac Type Severity Reaction Status Date / Time doxycycline Allergy Unknown Verified 12/26/24 11:21 erythromycin base Allergy Chest Verified 12/26/24 11:21 (Erythromycin Base) tightness Penicillins Allergy Unknown Verified 12/26/24 11:21 tramadol HCl (From Ultram) Allergy Swelling Verified 12/26/24 11:21 cefdinir (From Omnicef) AdvReac Other Verified 12/26/24 11:21 risperidone (From Risperdal) AdvReac Unknown Verified 12/26/24 11:21 valacyclovir HCl (From AdvReac Nausea Verified 12/26/24 11:21 Valtrex) Family History Other Arthritis Cancer Diabetes Heart disease Stomach ulcer Surgical History Hx of tubal ligation Hx of nasal septoplasty History of herniorrhaphy Hx of appendectomy History of left heart catheterization (03/16/21) History of ankle surgery Social History Smoking Status: Current every day smoker tobacco type: cigarettes substance use type: marijuana and other details: Smokes marijuana, ingests CBD Gummies, but no other substance or IVDU ROS ROS ED Constitutional Constitutional ED: Reports chills Eyes Eyes: Denies blurry vision Cardiovascular Cardiovascular: Denies chest pain or palpitations Respiratory/Chest Respiratory/Chest: Reports cough and dyspnea Gastrointestinal Gastrointestinal: Reports abdominal pain Genitourinary Genitourinary ED: Denies dysuria or hematuria Musculoskeletal Musculoskeletal: Reports back pain and other Details: right flank pain Integumentary Denies rash Neurologic Neurologic: Reports weakness; Denies paresthesias EXAM Physical Exam Const Vital Signs: 12/26/24 11:15 12/26/24 11:20 12/26/24 11:46 Temperature 97.5 F L 97.2 F L Temperature Source Temporal Temporal Pulse Rate 58 L 68 Respiratory Rate 16 20 H Respiratory Effort Respiratory Pattern Blood Pressure 154/85 H 154/85 H Blood Pressure Mean 108 108 Pulse Ox 98 98 Oxygen Delivery Method Room Air Room Air Room Air (more content not included)... Normal [facility] H AND P Exam - Hospitaliston 12-26-2024 H&P Exam - Hospitalist [facility] Medical Records Department [address] [place] [address] H P Exam - Hospitalist 12/26/24 1528 MR#: [id number] Acct: [id number] Name: BEV WEBB Rep #: [id number] : 1975 49 From: Daphne Hernández MD PCP: Dr. Martinez Garcia MD Status:REG ER Location: ED HPI - General General Date of Service: 12/26/24 Chief Complaint: flu like symptoms, syncope and collapse HPI Narrative BEV WEBB, is a 49-year-old female with history of COPD, coronary artery disease, tobacco use, hypertension, GERD, depression who presented [facility] ED 12/26/2024 with flulike symptoms, right flank pain and lightheadedness/near syncope. She has been having flulike symptoms for a couple of days and started to have flank pain earlier. This morning she thought she was going to pass out which prompted her to come to the ED. In triage she started feeling she needed to lay down and when the nurse was attempting it vital she went unresponsive, initially nurse thought she may be having syncopal episode but did not feel a palpable pulse and later on the ground and started chest compressions, she had 5 to 10 seconds of chest compressions before waking up. Patient awoke by the time ED physician arrived and was taken from triage to ED room. Workup in ED unremarkable however given patient's presenting complaints and loss of consciousness, whether syncope or code, hospitalist contacted for admission. Patient evaluated bedside with significant other and reports that for around 3 days or so she has been feeling very ill with cough, fever, sinus congestion, achy with a little bit of increased shortness of breath but mostly just feels unwell, has some nausea but no diarrhea or abdominal pain. Reports that this morning she was lightheaded and has not been up and getting around very much because she just feels unwell. Over the past day or so did develop some right lower back pain that comes and goes and sometimes radiates towards the front but denies any other urinary symptoms at this time, denies any chest pain. Reports when she was in triage notes that she felt like she was get a pass out and then that is all she remembered. Currently has some headache but does report she also had headache before just a little bit worse now with pressure primarily behind her eyes. [facility] Medical History Essential (primary) hypertension Atherosclerotic heart disease of [place] coronary artery without angina pectoris Stomach ulcer Heart disease Shoulder pain Hemorrhoids Lung disease Arthritis Home Medications ???Medication ???Instructions ???Recorded ???Last Taken ???Type pantoprazole 40 mg tablet,delayed 40 mg PO BID gerd 04/09/14 History release cetirizine 10 mg tablet 10 mg PO DAILY allergies 04/14/20 06/14/23 History gabapentin 400 mg capsule 400 mg PO TID nerve pain 06/17/20 06/17/20 History venlafaxine 150 mg tablet,extended 150 mg PO DAILY depression 06/1706/14/23 History release 24 hr venlafaxine 37.5 mg 37.5 mg PO DAILY 09/12/24 Unknown History capsule,extended release 24 hr aspirin 81 mg capsule 81 mg PO DAILY #1 cap 10/03/24 Unk nown Rx atorvastatin 40 mg tablet 40 mg PO QHS #30 tabs 10/03/24 Unk nown Rx isosorbide mononitrate 30 mg 30 mg PO DAILY #30 tabs 10/03/24 U nknown Rx tablet,extended release 24 hr albuterol sulfate 90 mcg/actuation 2 puff inhalation Q4H PRN PRN Unknown History aerosol inhaler wheezing Allergy/AdvReac Type Severity Reaction Status Date / Time doxycycline Allergy Unknown Verified 12/26/24 11:21 erythromycin base Allergy Chest Verified 12/26/24 11:21 (Erythromycin Base) tightness Penicillins Allergy Unknown Verified 12/26/24 11:21 tramadol HCl (From Ultram) Allergy Swelling Verified 12/26/24 11:21 cefdinir (From Omnicef) AdvReac Other Verified 12/26/24 11:21 risperidone (From Risperdal) AdvReac Unknown Verified 12/26/24 11:21 valacyclovir HCl (From AdvReac Nausea Verified 12/26/24 11:21 Valtrex) Family History Other Arthritis Cancer Diabetes Heart disease Stomach ulcer Surgical History Hx of tubal ligation Hx of nasal septoplasty History of herniorrhaphy Hx of appendectomy History of left heart catheterization (03/16/21) History of ankle surgery Social History Smoking Status: Current every day smoker tobacco type: cigarettes substance use type: marijuana and other details: Smokes marijuana, ingests CBD Gummies, but no other substance or IVDU ROS ROS Narrative General: Some fevers at home HENT: Nasal congestion and head pressure EYES: Cordellies uvaldo (more content not included)... Normal [facility] L501.4020on 12-26-2024 TROPONIN-I HS 8 pg/mL Normal 3.0-54.0 [facility] Comment on above: Result Comment: Plea se Note: New Test Units and Gender Specific Reference Ranges. For more information see Policy Stat Procedure [place] High Sensitivity Troponin (TNIH) and attachments. Performed By: #### L 501.4020 #### [facility] [address] [place], [address] L501.5425on 12-26-2024 TROPONIN-I HS 7 pg/mL Normal 3.0-54.0 [facility] Comment on above: Order Comment: 1Y Result Comment: Plea se Note: New Test Units and Gender Specific Reference Ranges. For more information see Policy Stat Procedure [place] High Sensitivity Troponin (TNIH) and attachments. Performed By: #### L 500.3400, L501.5200, L501.9520, L501.5425, L100.0100, L500.2500 ####[facility] [address] [place], [address] Liver Profileon 12-26-2024 Albumin [Mass/Vol] 3.0 g/dL Low 3.2-5.0 [facility] Comment on above: Performed By: #### L 500.3400, L501.5200, L501.9520, L501.5425, L100.0100, L500.2500 ####[facility] [address] [place], [address] ALK P 160 U/L High 45-117 [facility] Comment on above: Performed By: #### L 500.3400, L501.5200, L501.9520, L501.5425, L100.0100, L500.2500 ####[facility] [address] [place], [address] ALT [Catalytic activity/Vol] 58 U/L High 13-56 [facility] Comment on above: Performed By: #### L 500.3400, L501.5200, L501.9520, L501.5425, L100.0100, L500.2500 ####[facility] [address] [place], [address] AST [Catalytic activity/Vol] 34 U/L Normal 15-37 [facility] Comment on above: Performed By: #### L 500.3400, L501.5200, L501.9520, L501.5425, L100.0100, L500.2500 ####[facility] [address] [place], [address] Bilirubin [Mass/Vol] 0.10 mg/dL Low 0.20-1.[address] [facility] Comment on above: Result Comment: For patients on eltrombopag therapy, use of Dimension [place] TBIL is not recommended. Performed By: #### L 500.3400, L501.5200, L501.9520, L501.5425, L100.0100, L500.2500 ####[facility] [address] [place], [address] Bilirubin.direct [Mass/Vol] 0.07 mg/dL Normal 0.00-0.30 [facility] Comment on above: Performed By: #### L 500.3400, L501.5200, L501.9520, L501.5425, L100.0100, L500.2500 ####[facility] [address] [place], [address] Globulin (S) [Mass/Vol] 4.0 g/dL Normal 2.2-4.2 [facility] Comment on above: Performed By: #### L 500.3400, L501.5200, L501.9520, L501.5425, L100.0100, L500.2500 ####[facility] [address] [place], [address] T PROT 7.0 g/dL Normal 6.4-8.2 [facility] Comment on above: Performed By: #### L 500.3400, L501.5200, L501.9520, L501.5425, L100.0100, L500.2500 ####[facility] [address] [place], [address] M100.678on 12-26-2024 M100.678 SARS-CoV-2 (COVID 19 ) Negative INFLUENZA A Negative INFLUENZA B Negative RSV PCR Negative Normal [facility] Comment on above: Performed By: #### M 100.638 #### [facility] [address] [place], [address] Magnesiumon 12-26-2024 Magnesium [Mass/Vol] 1.8 mg/dL Normal 1.6-2.[address] [facility] Comment on above: Performed By: #### L 500.3400, L501.5200, L501.9520, L501.5425, L100.0100, L500.2500 ####[facility] [address] [place], [address] Thyroid Stim Hormone (TSH)on 12-26-2024 TSH 0.738 uIU/mL Normal 0.358-3.740 [facility] Comment on above: Performed By: #### L 500.3400, L501.5200, L501.9520, L501.5425, L100.0100, L500.2500 ####[facility] [address] [place], [address] Urinalysis, Completeon 12-26 EPI,SQUAMOUS 0-5 SEEN Normal 5-10 [facility] Comment on above: Order Comment: CAROL CTOR TO SPECIFY Performed By: #### M 100.638 #### [facility] [address] [place], [address] RBC 0-5 SEEN Normal 0-5 [facility] Comment on above: Order Comment: CAROL CTOR TO SPECIFY Performed By: #### M 100.638 #### [facility] [address] [place], [address] BACTERIA 0 SEEN Normal None Seen [facility] Comment on above: Order Comment: CAROL CTOR TO SPECIFY Performed By: #### M 100.638 #### [facility] [address] [place], [address] Mucus Ql (Urine sed) 0 SEEN Normal [facility] Comment on above: Order Comment: CAROL CTOR TO SPECIFY Performed By: #### M 100.638 #### [facility] [address] [place], [address] WBC 0 SEEN Normal 0-5 [facility] Comment on above: Order Comment: CAROL CTOR TO SPECIFY Performed By: #### M 100.638 #### [facility] [address] [place], [address] Urine Drug Screen (VISTA)on 12-26-2024 AMPHETAMINES Negative Normal <1000 ng/mL [facility] Comment on above: Performed By: #### L 505.5000 ####[facility] [address] [place] [address] BARBITIURATES Negative Normal < 200 ng/mL [facility] Comment on above: Performed By: #### L 505.5000 ####[facility] [address] [place] [address] BENZODIAZIPINE Negative Normal < 200 ng/mL [facility] Comment on above: Performed By: #### L 505.5000 ####[facility] [address] [place] [address] COCAINE Negative Normal < 300 ng/mL [facility] Comment on above: Performed By: #### L 505.5000 ####[facility] [address] [place] [address] ECSTACY Negative Normal < 500 ng/mL [facility] Comment on above: Performed By: #### L 505.5000 ####[facility] [address] [place] [address] METHADONE Negative Normal < 300 ng/mL [facility] Comment on above: Performed By: #### L 505.5000 ####[facility] [address] [place] [address] OPIATES Negative Normal < 300 ng/mL [facility] Comment on above: Performed By: #### L 505.5000 ####[facility] [address] [place] [address] PCP Negative Normal < 25 ng/mL [facility] [facility] Comment on above: Performed By: #### L 505.5000 ####[facility] [address] [place] [address] THC Positive Abnormal < 50 ng/mL [facility] Comment on above: Performed By: #### L 505.5000 ####[facility] [address] [place], [address] VISTA UDS PH 6 Normal [facility] Comment on above: Performed By: #### L 505.5000 ####[facility] [address] 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 Her cough has become more productive with an increase in yellow/green sputum. She is a smoker and has a history of emphysema. She has decreased her smoking due to the cough. She has used Tylenol, Nyquil and Zyrtec with no change in symptoms. She has not needed to increase use of her inhalers. Denies chest pain or SOB Review of Systems Constitutional: Positive for appetite change, chills and fatigue. HENT: Positive for congestion, ear pain, postnasal drip, rhinorrhea and sneezing. Respiratory: Positive for cough. Negative for shortness of breath and wheezing. Cardiovascular: Negative for chest pain and palpitations. Gastrointestinal: Positive for diarrhea and nausea. Negative for abdominal pain. Musculoskeletal: Positive for myalgias. Allergic/Immunologic: Positive for environmental allergies. PAST MEDICAL HISTORY Diagnosis Date Abnormal mammogram, unspecified LEFT BREAST Abnormal Pap smear and cervical HPV (human papillomavirus) CAD (coronary artery disease) 2103 diffuse moderate CAD in the left main and RCA-40-50%, seeing Dr. Chase Centrilobular emphysema (HCC) Chronic cholecystitis 08/24/07 Chronic depressive personality disorder Chronic gastric ulcer without mention of hemorrhage, perforation, without mention of obstruction COPD with chronic bronchitis (HCC) Generalized anxiety disorder HTN (hypertension) Hyperlipidemia Incisional hernia without mention of obstruction or gangrene Irritable bowel syndrome Lumbago PONV (postoperative nausea and vomiting) Raynaud's phenomenon (by history or observed) Tobacco use disorder, continuous Daily smoker since age 16. PAST SURGICAL HISTORY Procedure Laterality Date APPENDECTOMY ENDOMETRIAL BX W/WO ENDOCERVIX BX W/O DILAT SPX 01/01/2009 Menorrhagia ESOPHAGOGASTRODUODENO SCOPY TRANSORAL DIAGNOSTIC 09/26/2012 EGD EXC BREAST LES PREOP PLMT RAD MARKER OPEN 1 LES 08/29/2009 left breast HEART CATHETERIZATION 11/07/2013 IMPLANT MESH OPN HERNIA RPR/DEBRIDEMENT CLOSURE 07/01/2008 LAPAROSCOPIC APPENDECTOMY LAPS SURG CHOLECYSTECTOMY W/CHOLANGIOGRAPHY 08/24/2007 LIG/TRNSXJ FLP TUBE ABDL/VAG APPR UNI/BI PREOP PLACEMENT NEEDLE LOC 08/29/2009 left breast REP INIT INCI/ VENTRAL HERNIA 11/27/2020 REPAIR FIRST ABDOMINAL WALL HERNIA 07/01/2008 REVISE MEDIAN N/CARPAL TUNNEL SURG Left 11/10/2022 Left CTR SEPTOPLASTY/SUBMUCOUS RESECJ W/WO CARTILAGE GRF 2001 +/- Akhil STEREOTACTIC CORE BIOPSY 07/09/2009 LEFT BREAST ALLERGIES Doxycycline, Entex [Phenylephrine-Guaife nesin], Erythromycin, Flexeril [Cyclobenzaprine Hcl], Omnicef [Cefdinir], Penicillin G, Risperdal [Risperidone], Ultram [Tramadol Hcl], and Valtrex [Valacyclovir Hcl] MEDICATIONS venlafaxine ER (EFFEXOR XR) 37.5 mg 24 hr capsule Take 1 capsule by mouth once daily. Add 37.5mg to current 150mg XL daily venlafaxine ER (EFFEXOR XR) 150 mg 24 hr capsule Take 1 capsule by mouth once daily. pantoprazole DR (PROTONIX) 40 mg tablet TAKE 1 TABLET BY MOUTH ON AN EMPTY STOMACH 1/2 HOUR BEFORE A MEAL TWICE DAILY albuterol HFA (VENTOLIN HFA) 90 mcg/actuation inhaler Inhale 2 Puffs as instructed every 4 hours as needed for wheezing/shortness of breath. cetirizine (ZYRTEC) 10 mg tablet Take 1 tablet by mouth once daily. gabapentin (NEURONTIN) 400 mg capsule Take 1 capsule by mouth three times a day for 180 days. metoprolol succinate ER (TOPROL XL) 25 mg 24 hr tablet Take 0.5 tablets by mouth once daily. nitroglycerin sublingual (NITROQUICK) 0.4 mg SL tablet Dissolve 1 tablet under the tongue every 5 minutes as needed for chest pain. atorvastatin (LIPITOR) 40 mg tablet Take 1 tablet by mouth once daily. aspirin, enteric coated (ASPIRIN, ENTERIC COATED) 81 mg EC tablet TAKE 1 TABLET BY MOUTH EVERY DAY docusate sodium (COLACE) 100 mg capsule Take 1 capsule by mouth twice daily as needed for constipation. acetaminophen (TYLENOL) 500 mg tablet Take 2 tablets by mouth every 8 hours as needed for pain. COMBIVENT RESPIMAT 20-100 mcg/actuation inhaler INHALE 1 PUFF INSTRUCTED FOUR TIMES DAILY NEEDED. nitroglycerin sublingual (NITROQUICK) 0.4 mg SL tablet Dissolve 1 tablet under the tongue every 5 minutes as needed fo (more content not included)... Normal [facility] Basic Metabolic Profile (BMP )on 10-03-2024 BUN/CRE 16.3 RATIO Normal 10-20 [facility] Comment on above: Order Comment: 1Y Performed By: #### L 501.5425, L100.0100, L500.2500 ####[facility] [address] [place], [address] CA,Total 8.6 mg/dL Normal 8.5-10.1 [facility] Comment on above: Order Comment: 1Y Performed By: #### L 501.5425, L100.0100, L500.2500 ####[facility] [address] [place], [address] Chloride [Moles/Vol] 106 mmol/L Normal 98-[address] [facility] Comment on above: Order Comment: 1Y Performed By: #### L 501.5425, L100.0100, L500.2500 ####[facility] [address] [place], [address] CO2 [Moles/Vol] 26.0 mmol/L Normal 21.0-32.0 [facility] Comment on above: Order Comment: 1Y Performed By: #### L 501.5425, L100.0100, L500.2500 ####[facility] [address] [place], [address] Creatinine [Mass/Vol] 0.80 mg/dL Normal 0.55-1.02 [facility] Comment on above: Order Comment: 1Y Result Comment: The validity of the calculated GFR GFRAA in patients over 70 years has not been determined. Clinical correlation is essential. Performed By: #### L 501.5425, L100.0100, L500.2500 ####[facility] [address] [place], [address] ECRCL 81.59 ml/min Normal [facility] Comment on above: Order Comment: 1Y Performed By: #### L 501.5425, L100.0100, L500.2500 ####[facility] [address] [place], [address] EST GFR - AA 99 mL/min Normal >60 [facility] Comment on above: Order Comment: 1Y Result Comment: Afri can Eritrean GFR Calc Performed By: #### L 501.5425, L100.0100, L500.2500 ####[facility] [address] [place], [address] GAP 5 Normal 5-15 [facility] Comment on above: Order Comment: 1Y Performed By: #### L 501.5425, L100.0100, L500.2500 ####[facility] [address] [place], [address] GFR/1.73 sq M.predicted among non-blacks MDRD (S/P/Bld) [Vol rate/Area] 82 mL/min/{1.73_m2} Normal >60 [facility] Comment on above: Order Comment: 1Y Result Comment: Non- GFR Calc Performed By: #### L 501.5425, L100.0100, L500.2500 ####[facility] [address] [place], [address] Glucose [Mass/Vol] 113 mg/dL High 74-106 [facility] Comment on above: Order Comment: 1Y Result Comment: Fast ing Glucose result from 100 to 125 mg/dL suggests IMPAIRED HOMEOSTASIS per A.D.A. criteria. Performed By: #### L 501.5425, L100.0100, L500.2500 ####[facility] [address] [place], [address] Potassium [Moles/Vol] 3.8 mmol/L Normal 3.5-5.1 [facility] Comment on above: Order Comment: 1Y Performed By: #### L 501.5425, L100.0100, L500.2500 ####[facility] [address] [place], [address] Sodium [Moles/Vol] 136 mmol/L Normal 136-145 [facility] Comment on above: Order Comment: 1Y Performed By: #### L 501.5425, L100.0100, L500.2500 ####[facility] [address] [place], [address] Urea nitrogen [Mass/Vol] 13 mg/dL Normal 7-18 [facility] Comment on above: Order Comment: 1Y Performed By: #### L 501.5425, L100.0100, L500.2500 ####[facility] [address] [place], [address] CBC W/Diff, Automatedon 11-2 -2023 Absolute Lymph 4.91 X10 3/uL High 0.83-4.51 [facility] Comment on above: Performed By: #### L 501.5425, L100.0100, L500.2500 ####[facility] [address] [place], [address] Absolute Neut 8.5 X10 3/uL High 2.0-7.7 [facility] Comment on above: Performed By: #### L 501.5425, L100.0100, L500.2500 ####[facility] [address] [place], [address] Basophils/100 WBC (Bld) 0.8 % Normal 0-1 [facility] Comment on above: Performed By: #### L 501.5425, L100.0100, L500.2500 ####[facility] [address] [place], [address] Eosinophils/100 WBC (Bld) 3.2 % Normal 0-5 [facility] Comment on above: Performed By: #### L 501.5425, L100.0100, L500.2500 ####[facility] [address] [place], [address] Erythrocyte distribution width (RBC) [Ratio] 16.0 % High 11.6-14.6 [facility] Comment on above: Performed By: #### L 501.5425, L100.0100, L500.2500 ####[facility] [address] [place], [address] Hematocrit (Bld) [Volume fraction] 38.8 % Normal 37-47 [facility] Comment on above: Performed By: #### L 501.5425, L100.0100, L500.2500 ####[facility] [address] [place], [address] Hemoglobin (Bld) [Mass/Vol] 12.4 g/dL Normal 12.0-15.0 [facility] Comment on above: Performed By: #### L 501.5425, L100.0100, L500.2500 ####[facility] [address] [place], [address] IG% 0.700 Normal 0.0-0.9 [facility] Comment on above: Result Comment: IG% - Immature Granulocytes (promyelocytes, myelocytes and metamyelocytes) > 1% indicates that a LEFT SHIFT is Present. Performed By: #### L 501.5425, L100.0100, L500.2500 ####[facility] [address] [place], [address] Lymphocytes/100 WBC (Bld) 32.0 % Normal 19-41 [facility] Comment on above: Performed By: #### L 501.5425, L100.0100, L500.2500 ####[facility] [address] [place], [address] MCH (RBC) [Entitic mass] 28.2 pg Normal 27.0-32.0 [facility] Comment on above: Performed By: #### L 501.5425, L100.0100, L500.2500 ####[facility] [address] [place], [address] MCHC (RBC) [Mass/Vol] 32.0 g/dL Normal 32-36 [facility] Comment on above: Performed By: #### L 501.5425, L100.0100, L500.2500 ####[facility] [address] [place], [address] MCV (RBC) [Entitic vol] 88.2 fL Normal 81-99 [facility] Comment on above: Performed By: #### L 501.5425, L100.0100, L500.2500 ####[facility] [address] [place], [address] Monocytes/100 WBC (Bld) 8.3 % Normal 0-10 [facility] Comment on above: Performed By: #### L 501.5425, L100.0100, L500.2500 ####[facility] [address] [place], [address] Neutrophils/100 WBC (Bld) 55.0 % Normal 47-70 [facility] Comment on above: Performed By: #### L 501.5425, L100.0100, L500.2500 ####[facility] [address] [place], [address] Nucleated RBC (Bld) [#/Vol] 0 10*3/uL Normal 0-5 [facility] Comment on above: Performed By: #### L 501.5425, L100.0100, L500.2500 ####[facility] [address] [place], [address] Platelet mean volume (Bld) [Entitic vol] 10.0 fL Normal 6.2-12.0 [facility] Comment on above: Performed By: #### L 501.5425, L100.0100, L500.2500 ####[facility] [address] [place], [address] Platelets (Bld) [#/Vol] 389 10*3/uL Normal 150-450 [facility] Comment on above: Performed By: #### L 501.5425, L100.0100, L500.2500 ####[facility] [address] [place], [address] RBC (Bld) [#/Vol] 4.40 10*6/uL Normal 4.2-5.4 [facility] Comment on above: Performed By: #### L 501.5425, L100.0100, L500.2500 ####[facility] [address] [place], [address] RDW SD 52.1 fl High 35.1-43.9 [facility] Comment on above: Performed By: #### L 501.5425, L100.0100, L500.2500 ####[facility] [address] [place], [address] WBC (Bld) [#/Vol] 15.4 10*3/uL High 4.4-11.0 [facility] Comment on above: Performed By: #### L 501.5425, L100.0100, L500.2500 ####[facility] [address] [place], [address] L501.4020on 10-03-2024 TROPONIN-I HS 13 pg/mL Normal 3.0-54.0 [facility] Comment on above: Result Comment: Plea se Note: New Test Units and Gender Specific Reference Ranges. For more information see Policy Stat Procedure [place] High Sensitivity Troponin (TNIH) and attachments. Performed By: #### L 501.4020 ####[facility] [address] [place], [address] L501.5425on 10-03-2024 TROPONIN-I HS 13 pg/mL Normal 3.0-54.0 [facility] Comment on above: Order Comment: 1Y Result Comment: Plea se Note: New Test Units and Gender Specific Reference Ranges. For more information see Policy Stat Procedure [place] High Sensitivity Troponin (TNIH) and attachments. Performed By: #### L 501.5425, L100.0100, L500.2500 ####[facility] [address] [place], [address] Chest 1 View (Portable)on Chest 1 View (Portable) [facility] Imaging Services [address] [place] [address] Chest 1 View (Portable) MR#: [id number] Acct: [id number] Name: BEV WEBB Rep #: [id number] : 1975 F 49 From: Lisa Worthington MD PCP: Dr. Martinez Garcia MD Status: REG ER Study: Chest 1 View (Portable) Date of Exam: 10/02/24 Exam# [id number] Ordering Dr: Angel Luis Bellamy MD [id number] STUDY: X-RAY CHEST REASON FOR EXAM: Female, 49 years old patient with chest pain. TECHNIQUE: Single AP portable view of the chest. COMPARISON: Chest radiograph dated October 08, 2022. FINDINGS: Cardiac monitoring leads are present. The lungs are clear and expanded. There is no demonstrated pleural abnormality. Normal size heart. Normal mediastinum and filomena. Normal visualized pulmonary arteries. Normal visualized aortic arch and descending thoracic aorta. Normal visualized thoracic spine. Normal visualized ribs, clavicles, and shoulders. There is no demonstrated abnormality of the visualized soft tissue structures of the upper abdomen. RAD/Chest 1 View (Portable) IMPRESSION: No radiographic evidence of acute cardiopulmonary disease. Electronically Signed: Lisa Worthington MD at 0:17 EST Reading Location ID and State: [facility] / [place] , Service support , CC: Dr. Angel Luis Bellamy MD; Dr. Martinez Garcia MD Title I Teacher: Signed Normal [facility] Emergency Department Summary on 10-02-2024 Emergency Department Summary [facility] Medical Records Department [address] [place] [address] Emergency Department Summary 10/02/24 MR#: [id number] Acct: [id number] Name: BEV WEBB Rep #: [id number] : 1975 49 From: Angel Luis Bellamy MD PCP: Dr. Martinez Garcia MD Status:REG ER Location: ED HPI History of Present Illness Chief Complaint: Chest Pain Informant: patient and spouse/S.O. Narrative Narrative: 49-year-old female presents with 2-3 episodes over the past 1 or 2 days of chest pressure, pain in her upper mid back, and the episode that she had just prior to arrival today it radiated up into her anterior neck and jaw. These episodes of all lasted few minutes each 1. Associated nausea no vomiting, no palpitations, near-syncope or syncope, diaphoresis, or other associated symptoms although she states she has a headache right now. She states last time this happened a couple years ago she ended up with abnormal troponin, a heart cath, and vasospasm. She has never used cocaine that she knows of then, nor recently. She has not tried taking any medications for the symptoms in the last day or 2 but concern because these are similar symptoms. She is a heavy smoker. [facility] Medical History Essential (primary) hypertension Atherosclerotic heart disease of [place] coronary artery without angina pectoris Stomach ulcer Heart disease Shoulder pain Hemorrhoids Lung disease Arthritis Home Medications ???Medication ???Instructions ???Recorded ???Last Taken ???Type pantoprazole 40 mg tablet,delayed 40 mg PO BID gerd 04/09/14 06/14/23 History release cetirizine 10 mg tablet 10 mg PO DAILY allergies 04/14/20 06/14/23 History gabapentin 400 mg capsule 400 mg PO TID nerve pain 06/17/20 06/17/20 History venlafaxine 150 mg tablet,extended 150 mg PO DAILY depression 06/17/20 06/14/23 History release 24 hr venlafaxine 37.5 mg 37.5 mg PO DAILY 09/12/24 Unknown History capsule,extended release 24 hr aspirin 81 mg capsule 81 mg PO DAILY #1 cap 10/03/24 Unknown Rx atorvastatin 40 mg tablet 40 mg PO QHS #30 tabs 10/03/24 Unknown Rx isosorbide mononitrate 30 mg 30 mg PO DAILY #30 tabs 10/03/24 Unknown Rx tablet,extended release 24 hr Allergy/AdvReac Type Severity Reaction Status Date / Time doxycycline Allergy Unknown Verified 10/02/24 23:26 erythromycin base Allergy Chest Verified 10/02/24 23:26 (Erythromycin Base) tightness Penicillins Allergy Unknown Verified 10/02/24 23:26 tramadol HCl (From Ultram) Allergy Swelling Verified 10/02/24 23:26 cefdinir (From Omnicef) AdvReac Other Verified 10/02/24 23:26 risperidone (From Risperdal) AdvReac Unknown Verified 10/02/24 23:26 valacyclovir HCl (From AdvReac Nausea Verified 10/02/24 23:26 Valtrex) Family History Other Arthritis Cancer Diabetes Heart disease Stomach ulcer Surgical History Hx of tubal ligation Hx of nasal septoplasty History of herniorrhaphy Hx of appendectomy History of left heart catheterization (03/16/21) History of ankle surgery Social History (Updated 10/02/24 @ 23:[address] Angel Luis Bellamy MD) Smoking Status: Current every day smoker tobacco type: cigarettes substance use type: marijuana and other details: Smokes marijuana, ingests CBD Gummies, but no other substance or IVDU ROS ROS ED Constitutional Constitutional ED: Denies chills or fever(s) Eyes Eyes: Denies change in vision or diplopia ENT ENT ED: Denies rhinorrhea or sore throat Cardiovascular Cardiovascular: Reports as per HPI, chest pain and radiating jaw, neck or arm pain; Denies palpitations Respiratory/Chest Respiratory/Chest: Denies cough or dyspnea Gastrointestinal Gastrointestinal: Reports nausea; Denies abdominal pain, diarrhea or vomiting Genitourinary Genitourinary ED: Denies dysuria or hematuria Musculoskeletal Musculoskeletal: Reports neck pain; Denies back pain Integumentary Denies abscess or rash Neurologic Neurologic: Reports headache(s); Denies paresthesias or weakness EXAM Physical Exam Const Vital Signs: 10/02/24 23:26 10/02/24 23:42 10/02/24 23:44 Temperature 97.6 F L Temperature Source Temporal Pulse Rate 85 Respiratory Rate 17 Respiratory Effort Normal Non-Labored Blood Pressure 128/90 H Blood Pressure Mean 102 Pulse Ox 98 Oxygen Delivery Method Room Air Room Air 10/03/24 00:19 10/03/24 01:00 10/03/24 02:00 Temperature Temperature Source Pulse Rate 90 72 72 Respiratory Rate 16 18 18 Respiratory Effort Blood Pressure 120/84 H 131/82 H 126/85 H Blood Pressure Mean 96 98 98 Pulse Ox 97 97 98 Oxygen Delivery Method Room Air Room Air (more content not included)... Normal [facility] Urgent Care Visit Reporton 1 11-20-2023 Urgent Care Visit Report [facility] [address], [address] [place] [address] OFFICE VISIT Date of Service: 09/20/24 MR#: [id number] Acct: [id number] Name: BEV WEBB Rep #: [id number] : 1975 Provider: KRISTOFER Edouard Age/Sex: 49/F Location: [facility] [place] Status: Signed Intake Vital Signs 09/12/24 23:56 09/20/24 14:20 Height 5 ft 2 in 5 ft 2 in Weight: 153 lb 4 oz BMI 28.0 BP 120/86 H Blood Pressure Location Lt brachial Position Sitting Respiration 18 Pulse 101 H Pulse Source Monitor Temp 98.4 F Temp Source Oral Pulse Oximetry (%) 98 Oxygen Delivery Method room air Intake Visit Reasons: CONCERN FOR SINUS INFECTION Chief 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: 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 Is patient in pain?: No Allergies doxycycline Allergy (Verified 09/20/24 14:23) Unknown erythromycin base (Erythromycin Base) Allergy (Verified 09/20/24 14:23) Chest tightness Penicillins Allergy (Verified 09/20/24 14:23) Unknown tramadol HCl (From Ultram) Allergy (Verified 09/20/24 14:23) Swelling cefdinir (From Omnicef) Adverse Reaction (Verified 09/20/24 14:23) Other risperidone (From Risperdal) Adverse Reaction (Verified 09/20/24 14:23) Unknown valacyclovir HCl (From Valtrex) Adverse Reaction (Verified 09/20/24 14:23) Nausea Medications ???Medication ???Instructions ???Recorded ???Confirmed ???Type pantoprazole 40 mg tablet,delayed 40 mg PO BID gerd 04/09/14 09/20/24 History release cetirizine 10 mg tablet 10 mg PO DAILY allergies 04/14/20 09/20/24 History gabapentin 400 mg capsule 400 mg PO TID nerve pain 06/17/20 09/20/24 History venlafaxine 150 mg tablet,extended 150 mg PO DAILY depression 06/17/20 09/20/24 History release 24 hr venlafaxine 37.5 mg 37.5 mg PO DAILY 09/12/24 09/20/24 History capsule,extended release 24 hr methylprednisolone 4 mg tablets in 4 mg PO PER PKG DIR 6 days #21 tabs 09/20/24 09/20/24 Rx a dose pack (Medrol (Antony)) sulfamethoxazole 800 1 tab PO Q12H 7 days #14 tabs 09/20/24 09/20/24 Rx mg-trimethoprim 160 mg tablet (Bactrim DS) Nurse's Note: Nasal congestion with thick yellow nasal drainage accompanied with headache and chills periodically. Symptoms present for approximately four days. PFSH Medical History Essential (primary) hypertension Atherosclerotic heart disease of [place] coronary artery without angina pectoris Stomach ulcer Heart disease Shoulder pain Hemorrhoids Lung disease Arthritis Surgical History Hx of tubal ligation Hx of nasal septoplasty History of herniorrhaphy Hx of appendectomy History of left heart catheterization (03/16/21) History of ankle surgery Family History Other Arthritis Cancer Diabetes Heart disease Stomach ulcer Social History Smoking Status: Current every day smoker tobacco type: cigarettes substance use type: marijuana HPI HPI Chief Complaint: Concern for sinus infection Details: BEV WEBB, is a 49 F who presents to the office today for complaint of sinus congestion/pressure and pain for the past week. She denies hemoptysis, shortness of breath or difficulty breathing. No nausea, vomiting or diarrhea. No loss of taste or smell. She has tried multiple ngpi-kje-oaoyrxy products with no relief. No other associated symptoms or alleviating/aggravati ng factors. ROS Const Constitutional: No other (6 system ROS completed with pertinent findings in the HPI otherwise normal.) Exam Const General: cooperative and healthy appearing [facility] Head: normal to inspection Ears: hearing grossly normal bilaterally, TM's normal bilaterally and EAC's normal Nose: nasal discharge purulent Face and sinus: sinus tenderness frontal and maxillary Mouth: oral mucosae normal Throat: abnormal tonsil bilaterally erythema and hypertrophy 1+ and postnasal drainage Resp Effort Inspection: normal respiratory effort Auscultation: Bilateral: Clear to Auscultation Cardio Palpation: normal PMI Rate: regular rate Rhythm: regular rhythm Neuro General: patient alert and CN's II-XI intact bilaterally Psych Appearance: grossly normal Mental Status: mental status grossly normal Coding Level of Care Code Off vis,new,level 3 Diagnoses Acute sinusitis J01.90 Assessment and Plan Assessment and Plan (1) Acute sinusitis: Status: Acute Plan: Bactrim and Medrol Dosepak as prescribed today. Encouraged to get plenty of rest, drink lots of clear liquids, and use Tylenol or Ibuprofen (unless contraindicated) for fever and comfort. Patient also educated on other symptomatic management techniques. To be seen in 7-10 (more content not included)... Normal [facility] Emergency Department Summary on 09-13-2024 Emergency Department Summary [facility] Medical Records Department [address] [place] [address] Emergency Department Summary 09/13/24 MR#: [id number] Acct: [id number] Name: BEV WEBB Rep #: [id number] : 1975 49 From: Irving Byers DO PCP: Dr. Martinez Garcia MD Status:DEP ER Location: ED HPI History of Present Illness Chief Complaint: Complaint Informant: patient Onset/Context/Timing Onset: Today Context: Sudden Onset Timing: Continuous Quality: Sharp Location: Lower abdomen Worsened by: Nothing Relieved by: Nothing Narrative Narrative: Patient presents with lower abdominal pain that began today. Patient states it began when she woke up this afternoon. Patient states it is mainly over her lower abdomen. Patient describes her pain as sharp. Patient states nothing makes it worse and nothing makes it better. Patient admits to some urinary frequency but denies any dysuria. Patient thinks she had a thick vaginal discharge recently. Patient denies any fevers or chills. Patient denies any nausea or vomiting. Patient denies any back pain. [facility] Medical History (Updated 09/13/24 @ 00:[address] Irving Byers DO) Essential (primary) hypertension Atherosclerotic heart disease of [place] coronary artery without angina pectoris Stomach ulcer Heart disease Shoulder pain Hemorrhoids Lung disease Arthritis Home Medications ???Medication ???Instructions ???Recorded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 cultures positive for MRSA Wound care Monitor temps and counts Ok to discharge on PO bactrim alone x 4 days more MEDICATIONS: reviewed. Current Facility-Administered Medications Medication Dose Route Frequency busPIRone (BUSPAR) tab(s) 15 mg 15 mg ORAL TID gabapentin 400 mg cap(s) (NEURONTIN) 400 mg ORAL TID atorvastatin 40 mg tab(s) (LIPITOR) 40 mg ORAL DAILY aspirin, enteric coated 81 mg tab(s) 81 mg ORAL DAILY pantoprazole DR 20 mg tab(s) (PROTONIX) 20 mg ORAL DAILY (6 AM) venlafaxine 75 mg tab(s) (EFFEXOR) 75 mg ORAL BID aluminum-magnesium hydroxide-simethicone 200-200-20 mg/5 mL 30 mL (MAALOX,MYLANTA,MAG-A L PLUS) 30 mL ORAL q 6 H PRN NaCl 0.9% iv flush bag 20 mL INTRAVENOUS PRN NaCl 0.45% iv infusion 5-30 mL/hr INTRAVENOUS CONTINUOUS docusate sodium 100 mg cap(s) (COLACE) 100 mg ORAL BID PRN oxyCODONE-acetaminoph en 5-325 mg 1-2 tablet (PERCOCET) 1-2 tablet ORAL q 4 H PRN acetaminophen 650 mg tab(s) (TYLENOL) 650 mg ORAL q 6 H PRN ipratropium-albuterol 3 mL nebulizer solution (DUONEB) 3 mL INHALATION QID PRN cetirizine 10 mg tab(s) (ZyrTEC) 10 mg ORAL DAILY HYDROmorphone 0.2 mg injection (DILAUDID) 0.2 mg INTRAVENOUS q 6 H PRN sulfamethoxazole-trim ethoprim 800-160 mg 1 tablet (BACTRIM DS,SEPTRA DS) 1 tablet ORAL q 12 H PHYSICAL EXAM: Vital signs: BP 125/73 Pulse 80 Temp 36.5 ?C (97.7 ?F) (Oral) Resp 18 Ht 160 cm (5' 3) Wt 66.9 kg (147 lb 7.8 oz) LMP 11/07/2021 SpO2 97% BMI 26.13 kg/m? Temp (24hrs), Av.9 ?C (98.4 ?F), Min:36.6 ?C (97.9 ?F), Max:37.1 ?C (98.8 ?F) General: alert, oriented, NAD Lungs: bilaterally clear to auscultation Heart: regular rate and rhythm Abdomen: soft, non tender, non distended, BS+ Extremities: L hand palmar aspect with open wound with scanty seropurulent drainage. Granulation tissue is forming. No rashes No joint inflammation Neck supple Lines ok No CVAT Lines, Drains, and Airways Line Duration Peripheral 11/25/22 2330 Right Forearm 22 Gauge 2 days Labs: Recent Labs 11/27/22 0446 11/26/22 0626 WBC 9.77 11.04* HB 9.4* 9.6* PLT 477* 441* NA 139 139 K 3.5* 3.2* CO2 28 25 BUN 16 13 CREAT 0.88 0.69 AST 7* 8* ALT 5* 6* TBILI <0.2* <0.2* ALKPHOS 101 95 VANCORA 11.4 -- Microbiology data: reviewed Imaging data: reviewed Anyi Bullock MD [phone] 11/28/2022 4:32 PM Normal [facility] CBC W Auto Differential pane l (Bld)on 11-27-2022 Basophils (Bld) [#/Vol] 0.12 10*3/uL High <0.11 [facility] Comment on above: Order Comment: Speci men Type: BLOOD SPECIMEN Ordering Facility: [facility] Address: [address] [address] Performed By: #### 2 4323-8 #### [facility] CLIA [id number] [address] [place] [address] [place] Basophils/100 WBC (Bld) 1.2 % Normal [facility] Comment on above: Order Comment: Speci men Type: BLOOD SPECIMEN Ordering Facility: [facility] Address: [address] [place] [address] Performed By: #### 2 4323-8 #### [facility] CLIA [id number] [address] [place] [address] [place] Differential cell count method Nom (Bld) Auto Normal [facility] Comment on above: Order Comment: Speci men Type: BLOOD SPECIMEN Ordering Facility: [facility] Address: [address] [place] [address] Performed By: #### 2 4323-8 #### [facility] CLIA [id number] [address] [place] [address] [place] Eosinophils (Bld) [#/Vol] 0.51 10*3/uL High <0.46 [facility] Comment on above: Order Comment: Speci men Type: BLOOD SPECIMEN Ordering Facility: [facility] Address: [address] [place] [address] Performed By: #### 2 4323-8 #### [facility] CLIA [id number] [address] [place] Eosinophils/100 WBC (Bld) 5.2 % Normal [facility] Comment on above: Order Comment: Speci men Type: BLOOD SPECIMEN Ordering Facility: [facility] Address: [address] [place] [address] Performed By: #### 2 4323-8 #### [facility] CLIA [id number] [address] [place] [address] [place] Erythrocyte distribution width (RBC) [Ratio] 17.2 % High 11.5-15.0 [facility] Comment on above: Order Comment: Speci men Type: BLOOD SPECIMEN Ordering Facility: [facility] Address: [address] [place] [address] Performed By: #### 2 4323-8 #### [facility] CLIA [id number] [address] Hematocrit (Bld) [Volume fraction] 30.7 % Low 36.0-46.0 [facility] Comment on above: Order Comment: Speci men Type: BLOOD SPECIMEN Ordering Facility: [facility] Address: [address] [place] [address] Performed By: #### 2 4323-8 #### [facility] CLIA [id number] [address] [place] Hemoglobin (Bld) [Mass/Vol] 9.4 g/dL Low 11.5-15.5 [facility] Comment on above: Order Comment: Speci men Type: BLOOD SPECIMEN Ordering Facility: [facility] Address: [address] [place] [address] Performed By: #### 2 4323-8 #### [facility] CLIA [id number] [address] [place] Immature granulocytes (Bld) [#/Vol] 0.05 10*3/uL Normal <0.10 [facility] Comment on above: Order Comment: Speci men Type: BLOOD SPECIMEN Ordering Facility: [facility] Address: [address] [place] [address] Performed By: #### 2 4323-8 #### [facility] CLIA [id number] [address] Immature granulocytes/100 WBC (Bld) 0.5 % Normal [facility] Comment on above: Order Comment: Speci men Type: BLOOD SPECIMEN Ordering Facility: [facility] Address: [address] [place] [address] Performed By: #### 2 4323-8 #### [facility] CLIA [id number] [address] OF [facility] Lymphocytes (Bld) [#/Vol] 3.63 10*3/uL Normal 1.00-4.00 [facility] Comment on above: Order Comment: Speci men Type: BLOOD SPECIMEN Ordering Facility: [facility] Address: [address] [address] Performed By: #### 2 4323-8 #### [facility] CLIA [id number] [address] Lymphocytes/100 WBC (Bld) 37.2 % Normal [facility] Comment on above: Order Comment: Speci men Type: BLOOD SPECIMEN Ordering Facility: [facility] Address: [address] [place] [address] Performed By: #### 2 4323-8 #### [facility] CLIA [id number] [address] MCH (RBC) [Entitic mass] 27.2 pg Normal 26.0-34.0 [facility] Comment on above: Order Comment: Speci men Type: BLOOD SPECIMEN Ordering Facility: [facility] Address: [address] [place] [address] Performed By: #### 2 4323-8 #### [facility] CLIA [id number] [address] MCHC (RBC) [Mass/Vol] 30.6 g/dL Normal 30.5-36.0 [facility] Comment on above: Order Comment: Speci men Type: BLOOD SPECIMEN Ordering Facility: [facility] Address: [address] [place] [address] Performed By: #### 2 4323-8 #### [facility] CLIA [id number] [address] MCV (RBC) [Entitic vol] 88.7 fL Normal 80.0-100.0 [facility] Comment on above: Order Comment: Speci men Type: BLOOD SPECIMEN Ordering Facility: [facility] Address: [address] [place] [address] Performed By: #### 2 4323-8 #### [facility] CLIA [id number] [address] Monocytes (Bld) [#/Vol] 0.99 10*3/uL High <0.87 [facility] Comment on above: Order Comment: Speci men Type: BLOOD SPECIMEN Ordering Facility: [facility] Address: [address] [address] Performed By: #### 2 4323-8 #### [facility] CLIA [id number] [address] [place] [address] [place] Monocytes/100 WBC (Bld) 10.1 % Normal [facility] Comment on above: Order Comment: Speci men Type: BLOOD SPECIMEN Ordering Facility: [facility] Address: [address] [address] Performed By: #### 2 4323-8 #### [facility] CLIA [id number] [address] [place] [address] [place] Neutrophils (Bld) [#/Vol] 4.47 10*3/uL Normal 1.45-7.50 [facility] Comment on above: Order Comment: Speci men Type: BLOOD SPECIMEN Ordering Facility: [facility] Address: [address] [address] Performed By: #### 2 4323-8 #### [facility] CLIA [id number] [address] [place] [address] [place] Neutrophils/100 WBC (Bld) 45.8 % Normal [facility] Comment on above: Order Comment: Speci men Type: BLOOD SPECIMEN Ordering Facility: [facility] Address: [address] [address] Performed By: #### 2 4323-8 #### [facility] CLIA [id number] [address] [place] [address] [place] Nucleated RBC (Bld) [#/Vol] 10*3/uL Normal <0.01 [facility] Comment on above: Order Comment: Speci men Type: BLOOD SPECIMEN Ordering Facility: [facility] Address: [address] [address] Performed By: #### 2 4323-8 #### [facility] CLIA [id number] [address] [place] [address] [place] Nucleated RBC/100 WBC (Bld) [Ratio] 0.0 /100 WBC Normal [facility] Comment on above: Order Comment: Speci men Type: BLOOD SPECIMEN Ordering Facility: [facility] Address: [address] [address] Performed By: #### 2 4323-8 #### [facility] CLIA [id number] [address] Platelet mean volume (Bld) [Entitic vol] 9.6 fL Normal 9.0-12.7 [facility] Comment on above: Order Comment: Speci men Type: BLOOD SPECIMEN Ordering Facility: [facility] Address: [address] [address] Performed By: #### 2 4323-8 #### [facility] CLIA [id number] [address] [place] Platelets (Bld) [#/Vol] 477 10*3/uL High 150-400 [facility] Comment on above: Order Comment: Speci men Type: BLOOD SPECIMEN Ordering Facility: [facility] Address: [address] [place] [address] Performed By: #### 2 4323-8 #### [facility] CLIA [id number] [address] [place] RBC (Bld) [#/Vol] 3.46 10*6/uL Low 3.90-5.20 [facility] Comment on above: Order Comment: Speci men Type: BLOOD SPECIMEN Ordering Facility: [facility] Address: [address] [address] Performed By: #### 2 4323-8 #### [facility] CLIA [id number] [address] [place] WBC (Bld) [#/Vol] 9.77 10*3/uL Normal 3.70-11.00 [facility] Comment on above: Order Comment: Speci men Type: BLOOD SPECIMEN Ordering Facility: [facility] Address: [address] [place] [address] Performed By: #### 2 4323-8 #### [facility] CLIA [id number] [address] CONSULT PROGon 11-27-2022 CONSULT PROG HNO ID: [id number] Author: Nila Arango RPh Service: Pharmacy Author Type: Pharmacist Type: Consult Progress Note Filed: 11/27/2022 2:40 PM Note Text: PHARMACY VANCOMYCIN DOSING NOTE Patient Name: Bev Webb Admission Date: 11/24/2022 Date of Consult: 11/27/2022 Time of Consult: 2:39 PM 1. Vancomycin therapy has been discontinued. Vancomycin level(s) have been discontinued: Not Applicable. Pharmacy vancomycin dosing service will sign off. Thank you for allowing us to participate in this patient's care. Please contact pharmacy if there are questions. We will follow patient renal function, vancomycin levels and doses with you during the course of therapy. Additional recommendations will appear in follow up notes. If you have any questions, please contact pharmacy at [phone]. Age: [age] year old Allergies: ALLERGIES Allergen Reactions Doxycycline Entex [Phenylephrin* Erythromycin Shortness of Breath Can take zpak Flexeril [Cyclobenz* Cough denies Omnicef [Cefdinir] GI Upset Penicillin G Intolerance unknown reaction during childhood Risperdal [Risperid* Swelling Ultram [Tramadol Hc* Swelling Valtrex [Valacyclov* Rash Last 3 Encounter Wt Readings: Date: Wt: 11/24/2022 66.9 kg (147 lb 7.8 oz) 11/03/2022 64 kg (141 lb) 10/28/2022 64 kg (141 lb) Last 1 Encounter Ht Readings: Date: Ht: 11/24/2022 160 cm (5' 3) CrCl: 73.4 mL/min Temp (24hrs), Av.8 ?C (98.3 ?F), Min:36.5 ?C (97.7 ?F), Max:37.1 ?C (98.8 ?F) - Current Temp: 36.8 ?C (98.2 ?F) Labs BUN (mg/dL) Date Value 11/27/2022 16 11/26/2022 13 11/25/2022 7 Creatinine (mg/dL) Date Value 11/27/2022 0.88 11/26/2022 0.69 11/25/2022 0.62 WBC (k/uL) Date Value 11/27/2022 9.77 11/26/2022 11.04 (H) 11/25/2022 12.47 (H) Vancomycin Levels: Vancomycin (ug/mL) Date/Time Value 11/27/2022 0446 11.4 Nila Arango [facility] CONSULT PROG HNO ID: [id number] Author: Anyi Bullock MD Service: Infectious Disease Author Type: Physician Type: Consult Progress Note Filed: 11/27/2022 2:37 PM Note Text: INFECTIOUS DISEASE PROGRESS NOTE Patient Name: Bev Webb INTERVAL HISTORY: No fevers. Pain is controlled. No new complaints. WBC receded within normal limits. ROS checked in details. All qs answered. Patient Active Hospital Problem List: Abscess of left hand (11/24/2022) GERD (gastroesophageal reflux disease) (01/15/2011) CAD (coronary artery disease) (06/06/2014) Elevated blood pressure reading (08/30/2018) COPD with chronic bronchitis (HCC) () ASSESSMENT: Abscess of left hand, post op SSI GERD (gastroesophageal reflux disease) PUD (peptic ulcer disease) CAD (coronary artery disease) Hyperlipidemia Hypertension COPD with chronic bronchitis Emphysema (subcutaneous) (surgical) resulting from a procedure Centrilobular emphysema Tobacco use disorder, continuous PLAN: Stop vancomycin Stop cefepime Start oral Bactrim Noted operative cultures positive for MRSA Wound care Monitor temps and counts Ok to discharge on PO bactrim alone x 5 days more MEDICATIONS: reviewed. Current Facility-Administered Medications Medication Dose Route Frequency busPIRone (BUSPAR) tab(s) 15 mg 15 mg ORAL TID gabapentin 400 mg cap(s) (NEURONTIN) 400 mg ORAL TID atorvastatin 40 mg tab(s) (LIPITOR) 40 mg ORAL DAILY aspirin, enteric coated 81 mg tab(s) 81 mg ORAL DAILY pantoprazole DR 20 mg tab(s) (PROTONIX) 20 mg ORAL DAILY (6 AM) venlafaxine 75 mg tab(s) (EFFEXOR) 75 mg ORAL BID aluminum-magnesium hydroxide-simethicone 200-200-20 mg/5 mL 30 mL (MAALOX,MYLANTA,MAG-A L PLUS) 30 mL ORAL q 6 H PRN NaCl 0.9% iv flush bag 20 mL INTRAVENOUS PRN NaCl 0.45% iv infusion 5-30 mL/hr INTRAVENOUS CONTINUOUS docusate sodium 100 mg cap(s) (COLACE) 100 mg ORAL BID PRN oxyCODONE-acetaminoph en 5-325 mg 1-2 tablet (PERCOCET) 1-2 tablet ORAL q 4 H PRN acetaminophen 650 mg tab(s) (TYLENOL) 650 mg ORAL q 6 H PRN ipratropium-albuterol 3 mL nebulizer solution (DUONEB) 3 mL INHALATION QID PRN cetirizine 10 mg tab(s) (ZyrTEC) 10 mg ORAL DAILY HYDROmorphone 0.2 mg injection (DILAUDID) 0.2 mg INTRAVENOUS q 6 H PRN vancomycin dosing and monitoring per pharmacy OTHER As Directed vancomycin iv piggyback 1 g in D5W 200 mL (VANCOCIN) 1 g INTRAVENOUS q 12 HR cefepime 2 g in D5W 100 mL Vial-Bag (MAXIPIME) 2 g INTRAVENOUS q 8 HR PHYSICAL EXAM: Vital signs: BP 150/90 Pulse 77 Temp 36.8 ?C (98.2 ?F) (Oral) Resp 16 Ht 160 cm (5' 3) Wt 66.9 kg (147 lb 7.8 oz) LMP 11/07/2021 SpO2 96% BMI 26.13 kg/m? Temp (24hrs), Av.9 ?C (98.4 ?F), Min:36.6 ?C (97.9 ?F), Max:37.1 ?C (98.8 ?F) General: alert, oriented, NAD Lungs: bilaterally clear to auscultation Heart: regular rate and rhythm Abdomen: soft, non tender, non distended, BS+ Extremities: L hand palmar aspect with open wound with scanty seropurulent drainage. Granulation tissue is forming. No rashes No joint inflammation Neck supple Lines ok No CVAT Lines, Drains, and Airways Line Duration Peripheral 11/25/22 2330 Right Forearm 22 Gauge 1 day Labs: Recent Labs 11/27/22 0446 11/26/22 0626 11/25/22 0345 WBC 9.77 11.04* 12.47* HB 9.4* 9.6* 10.1* PLT 477* 441* 474* NA 139 139 134* K 3.5* 3.2* 4.2 CO2 28 25 24 BUN 16 13 7 CREAT 0.88 0.69 0.62 AST 7* 8* 14 ALT 5* 6* 6* TBILI <0.2* <0.2* 0.2 ALKPHOS 101 95 97 VANCORA 11.4 -- -- Microbiology data: reviewed Imaging data: reviewed Anyi Bullock MD [phone] 11/27/2022 2:36 PM Normal [facility] CONSULT PROG HNO ID: [id number] Author: Denise Mcdermott DO Service: Hospital Medicine Author Type: Physician Type: Consult Progress Note Filed: 12/01/2022 7:47 AM Note Text: DEPARTMENT OF HOSPITAL MEDICINE CONSULT PROGRESS NOTE SERVICE DATE: 11/27/2022 SERVICE TIME: 1:18 PM Primary Care Physician: Martinez Garcia MD NIGHT AND WEEKEND COVERAGE: [place] COVERAGE: Days: [phone], please page attending physician. Nights: [phone], please page [place] [facility] Night coverage pager [phone]. Subjective INTERVAL HPI: feels well today. Still having a lot of pain but it is better than it was. No fever or chills. Denies CP, SOB abd pain, N/V MEDICATIONS: Reviewed Current Facility-Administered Medications Medication Dose Route Frequency busPIRone (BUSPAR) tab(s) 15 mg 15 mg ORAL TID gabapentin 400 mg cap(s) (NEURONTIN) 400 mg ORAL TID atorvastatin 40 mg tab(s) (LIPITOR) 40 mg ORAL DAILY aspirin, enteric coated 81 mg tab(s) 81 mg ORAL DAILY pantoprazole DR 20 mg tab(s) (PROTONIX) 20 mg ORAL DAILY (6 AM) venlafaxine 75 mg tab(s) (EFFEXOR) 75 mg ORAL BID aluminum-magnesium hydroxide-simethicone 200-200-20 mg/5 mL 30 mL (MAALOX,MYLANTA,MAG-A L PLUS) 30 mL ORAL q 6 H PRN NaCl 0.9% iv flush bag 20 mL INTRAVENOUS PRN NaCl 0.45% iv infusion 5-30 mL/hr INTRAVENOUS CONTINUOUS docusate sodium 100 mg cap(s) (COLACE) 100 mg ORAL BID PRN oxyCODONE-acetaminoph en 5-325 mg 1-2 tablet (PERCOCET) 1-2 tablet ORAL q 4 H PRN acetaminophen 650 mg tab(s) (TYLENOL) 650 mg ORAL q 6 H PRN ipratropium-albuterol 3 mL nebulizer solution (DUONEB) 3 mL INHALATION QID PRN cetirizine 10 mg tab(s) (ZyrTEC) 10 mg ORAL DAILY HYDROmorphone 0.2 mg injection (DILAUDID) 0.2 mg INTRAVENOUS q 6 H PRN hydrALAZINE 12.5 mg tab(s) (APRESOLINE) 12.5 mg ORAL q 8 H PRN vancomycin dosing and monitoring per pharmacy OTHER As Directed vancomycin iv piggyback 1 g in D5W 200 mL (VANCOCIN) 1 g INTRAVENOUS q 12 HR cefepime 2 g in D5W 100 mL Vial-Bag (MAXIPIME) 2 g INTRAVENOUS q 8 HR Objective PHYSICAL EXAM: BP 150/90 Pulse 77 Temp (Src) 98.2 (Oral) Resp 16 Ht 5' 3 (1.60m) Wt 147 lb 7.8 oz (66.9kg) SpO2 96% LMP 11/07/2021 BMI 26.13 kg/(m2). O2 Therapy: Room Air Physical Exam Performed: GENERAL: Alert, no distress, cooperative LUNGS: Lungs clear to auscultation, Good diaphragmatic excursion CARDIAC: Normal S1 and S2; no rubs, murmurs, or gallops ABDOMEN: Abdomen soft, non-tender, BS normal, No masses or organomegaly EXTREMITIES: Extremities normal, no deformities, edema, clubbing or skin discoloration. Left hand with no erythema. Wound is clean and no current drainage Lines, Drains, and Airways Line Duration Peripheral 11/25/22 2330 Right Forearm 22 Gauge 1 day DATA: Diagnostic tests reviewed for today's visit: Most recent labs and imaging results. Impression/Recommenda tions 47 year old female with a pmhx significatn for GERD, PUD, anxiety, CAD, HLD, HTN, COPD and tobacco who presents after she had left carpal tunnel release for Left carpal tunnel syndrome on 11/10/[address] Angel Luis Hernández. Sutures were removed on 11/22/22 Patient was admitted on 11/24/22 for post op infection of left hand Principal Problem: Abscess of left hand S/p IANDD with Dr. Hernández on 11/24/22 and tolerated procedure well Wound culture 11/24 with MRSA On vanco and cefepime ID following Pain control, wound care DVT prophylaxis and activity as per surgical team Elevated blood pressure reading BP now improved and in normal range. Suspect related to pain Patient advised to monitor her blood pressure at home and share results with her PCP COPD with chronic bronchitis (HCC) Stable continue duoneb GERD (gastroesophageal reflux disease) Stable continue protonix CAD (coronary artery disease) Stable continue atorvastatin and aspirin Anxiety Stable continue effexor, gabapentin and buspar Patient BP has been stable. No changes in home meds on discharge. Will follow as needed ADDENDUM 12/01/2022 7:47 AM Hypokalemia Repleted 11/[address] Thomas VTE PROPHYLAXIS: As per primary team Disposition: Home Plan of care discussed with: Provider, RN, Patient SIGNATURE: Denise Mcdermott DO PATIENT NAME: Bev Webb DATE: November 27, 2022 TIME: seen in am etx [id number] [facility] CONSULT PROG HNO ID: [id number] Author: Gloria Perez RPh Service: Pharmacy Author Type: Pharmacist Type: Consult Progress Note Filed: 11/27/2022 6:02 AM Note Text: PHARMACY VANCOMYCIN DOSING NOTE Patient Name: Bev Webb Admission Date: 11/24/2022 Date of Consult: 11/27/2022 Time of Consult: 5:58 AM Indication: Skin/Soft tissue infection Goal Range: 10-20 mcg/mL RECOMMENDATIONS/PLAN: Pharmacy consulted for vancomycin dosing for Bev Webb, a 47 year old, female who is being treated with vancomycin. 1. Patient is currently ordered Vancomycin 1 g IV q12h. Today is day 3 of therapy. 2. The most recent vancomycin level was 11.4 mcg/mL drawn at 0446 on 11/27/2022. This is a 11 hour level on the 3rd day of therapy. 3. The present dose of vancomycin is the recommended dosage for this patient at this time. Continue therapy as prescribed. 4. The next vancomycin level will be ordered for 12/04/2022 unless clinically indicated sooner. (Pharmacy will order) We will follow patient renal function, vancomycin levels and doses with you during the course of therapy. Additional recommendations will appear in follow up notes. If you have any questions, please contact pharmacy at [phone]. Age: [age] year old Allergies: ALLERGIES Allergen Reactions Doxycycline Entex [Phenylephrin* Erythromycin Shortness of Breath Can take zpak Flexeril [Cyclobenz* Cough denies Omnicef [Cefdinir] GI Upset Penicillin G Intolerance unknown reaction during childhood Risperdal [Risperid* Swelling Ultram [Tramadol Hc* Swelling Valtrex [Valacyclov* Rash Last 3 Encounter Wt Readings: Date: Wt: 11/24/2022 66.9 kg (147 lb 7.8 oz) 11/03/2022 64 kg (141 lb) 10/28/2022 64 kg (141 lb) Last 1 Encounter Ht Readings: Date: Ht: 11/24/2022 160 cm (5' 3) CrCl: 73.4 mL/min Temp (24hrs), Av.9 ?C (98.4 ?F), Min:36.5 ?C (97.7 ?F), Max:37.1 ?C (98.8 ?F) - Current Temp: 36.5 ?C (97.7 ?F) Labs BUN (mg/dL) Date Value 11/27/2022 16 11/26/2022 13 11/25/2022 7 Creatinine (mg/dL) Date Value 11/27/2022 0.88 11/26/2022 0.69 11/25/2022 0.62 WBC (k/uL) Date Value 11/27/2022 9.77 11/26/2022 11.04 (H) 11/25/2022 12.47 (H) Vancomycin Levels: Vancomycin (ug/mL) Date/Time Value 11/27/2022 0446 11.4 Gloria Perez [facility] Normal [facility] Comprehensive metabolic 2000 panelon 11-27-2022 Albumin [Mass/Vol] 3.5 g/dL Low 3.9-4.9 [facility] Comment on above: Order Comment: Specjuancarlos morrow Type: BLOOD SPECIMEN Ordering Facility: [facility] Address: [place] [address] Performed By: #### 2 4323-8 #### [facility] CLIA [id number] [address] [place] [address] [place] ALP [Catalytic activity/Vol] 101 U/L Normal 34-123 [facility] Comment on above: Order Comment: Speci men Type: BLOOD SPECIMEN Ordering Facility: [facility] Address: [address] [address] Performed By: #### 2 4323-8 #### [facility] CLIA [id number] [address] ALT [Catalytic activity/Vol] 5 U/L Low 7-38 [facility] Comment on above: Order Comment: Speci men Type: BLOOD SPECIMEN Ordering Facility: [facility] Address: [address] [address] Performed By: #### 2 4323-8 #### [facility] CLIA [id number] [address] [place] [address] [place] Anion gap [Moles/Vol] 7 mmol/L Low 9-18 [facility] Comment on above: Order Comment: Speci men Type: BLOOD SPECIMEN Ordering Facility: [facility] Address: [address] [place] [address] Performed By: #### 2 4323-8 #### [facility] CLIA [id number] [address] [place] [address] [place] AST [Catalytic activity/Vol] 7 U/L Low 13-35 [facility] Comment on above: Order Comment: Speci men Type: BLOOD SPECIMEN Ordering Facility: [facility] Address: [address] [place] [address] Performed By: #### 2 4323-8 #### [facility] CLIA [id number] [address] [place] [address] [place] Bilirubin [Mass/Vol] mg/dL Low 0.2-1.3 [facility] Comment on above: Order Comment: Speci men Type: BLOOD SPECIMEN Ordering Facility: [facility] Address: [address] [place] [address] Performed By: #### 2 4323-8 #### [facility] CLIA [id number] [address] [place] Calcium [Mass/Vol] 9.0 mg/dL Normal 8.5-10.2 [facility] Comment on above: Order Comment: Speci men Type: BLOOD SPECIMEN Ordering Facility: [facility] Address: [address] [address] Performed By: #### 2 4323-8 #### [facility] CLIA [id number] [address] Chloride [Moles/Vol] 104 mmol/L Normal 97-105 [facility] Comment on above: Order Comment: Speci men Type: BLOOD SPECIMEN Ordering Facility: [facility] Address: [address] [place] [address] Performed By: #### 2 4323-8 #### [facility] CLIA [id number] [address] [place] CO2 [Moles/Vol] 28 mmol/L Normal 22-30 [facility] Comment on above: Order Comment: Speci men Type: BLOOD SPECIMEN Ordering Facility: [facility] Address: [address] [place] [address] Performed By: #### 2 4323-8 #### [facility] CLIA [id number] [address] Creatinine [Mass/Vol] 0.88 mg/dL Normal 0.58-0.96 [facility] Comment on above: Order Comment: Speci men Type: BLOOD SPECIMEN Ordering Facility: [facility] Address: [address] [place] [address] Performed By: #### 2 4323-8 #### [facility] CLIA [id number] [address] ESTIMATED GLOMERULAR FILTRATION RATE 82 mL/min/1.73m??? Normal >=60 [facility] Comment on above: Order Comment: Speci men Type: BLOOD SPECIMEN Ordering Facility: [facility] Address: [address] [place] [address] Result Comment: Betty mated Glomerular Filtration Rate (eGFR) is calculated using the 2020 CKD-EPI creatinine equation. This equation utilizes serum creatinine, sex, and age as parameters. The creatinine assay has traceable calibration to isotope dilution-mass spectrometry. Refer to KDIGO guidelines for clinical interpretation. In patients with unstable renal function, e.g. those with acute kidney injury, the eGFR may not accurately reflect actual GFR. Performed By: #### 2 4323-8 #### [facility] CLIA [id number] [address] [place] [address] [place] Glucose [Mass/Vol] 94 mg/dL Normal 74-99 [facility] Comment on above: Order Comment: Samson morrow Type: BLOOD SPECIMEN Ordering Facility: [facility] Address: [address] [place] [address] Result Comment: The [place] Diabetes [employer] (ADA) provides guidance for cutoff values for fasting glucose and random glucose. The ADA defines fasting as no caloric intake for at least 8 hours. Fasting plasma glucose results between 100 to 125 mg/dL indicate increased risk for diabetes (prediabetes). Fasting plasma glucose results greater than or equal to 126 mg/dL meet the criteria for diagnosis of diabetes. In the absence of unequivocal hyperglycemia, results should be confirmed by repeat testing. In a patient with classic symptoms of hyperglycemia or hyperglycemic crisis, random plasma glucose results greater than or equal to 200 mg/dL meet the criteria for diagnosis of diabetes. Reference: Standards of Medical Care in Diabetes 2016, [place] [employer]. Diabetes Care. 2016.39(Suppl 1). Performed By: #### 2 4323-8 #### [facility] CLIA [id number] [address] [place] [address] [place] Potassium [Moles/Vol] 3.5 mmol/L Low 3.7-5.1 [facility] Comment on above: Order Comment: Samson morrow Type: BLOOD SPECIMEN Ordering Facility: [facility] Address: [address] [place] [address] Performed By: #### 2 4323-8 #### [facility] CLIA [id number] [address] [place] [address] [place] Protein [Mass/Vol] 5.9 g/dL Low 6.3-8.0 [facility] Comment on above: Order Comment: Samson morrow Type: BLOOD SPECIMEN Ordering Facility: [facility] Address: [address] [place] [address] Performed By: #### 2 4323-8 #### [facility] CLIA [id number] [address] [place] [address] [place] Sodium [Moles/Vol] 139 mmol/L Normal 136-144 [facility] Comment on above: Order Comment: Speci men Type: BLOOD SPECIMEN Ordering Facility: [facility] Address: [address] [address] Performed By: #### 2 4323-8 #### [facility] CLIA [id number] [address] STATES OF [facility] Urea nitrogen [Mass/Vol] 16 mg/dL Normal 7-21 [facility] Comment on above: Order Comment: Speci men Type: BLOOD SPECIMEN Ordering Facility: [facility] Address: [address] [address] Performed By: #### 2 4323-8 #### [facility] CLIA [id number] [address] [place] Vancomycin Bowler SerPl-mCncon 11-27-2022 Vancomycin random [Mass/Vol] 11.4 ug/mL Normal 10.0-20.0 [facility] Comment on above: Order Comment: Speci men Type: BLOOD SPECIMEN Ordering Facility: [facility] Address: [address] [place] [address] Result Comment: Refe rence ranges and high/low indicator flags are provided as general guidelines only. The treating physician must determine appropriate target levels/dosing based on the specific clinical situation. Performed By: #### 2 4323-8 #### [facility] CLIA [id number] [address] STATES OF [facility] CBC W Auto Differential pane l (Bld)on 11-26-2022 Basophils (Bld) [#/Vol] 0.10 10*3/uL Normal <0.11 [facility] Comment on above: Order Comment: Speci men Type: BLOOD SPECIMEN Ordering Facility: [facility] Address: [address] [address] Performed By: #### 2 4323-8 #### [facility] CLIA [id number] [address] Basophils/100 WBC (Bld) 0.9 % Normal [facility] Comment on above: Order Comment: Speci men Type: BLOOD SPECIMEN Ordering Facility: [facility] Address: [address] [address] Performed By: #### 2 4323-8 #### [facility] CLIA [id number] [address] [place] Differential cell count method Nom (Bld) Auto Normal [facility] Comment on above: Order Comment: Speci men Type: BLOOD SPECIMEN Ordering Facility: [facility] Address: [address] [address] Performed By: #### 2 4323-8 #### [facility] CLIA [id number] [address] [place] [address] [place] Eosinophils (Bld) [#/Vol] 0.42 10*3/uL Normal <0.46 [facility] Comment on above: Order Comment: Speci men Type: BLOOD SPECIMEN Ordering Facility: [facility] Address: [address] [address] Performed By: #### 2 4323-8 #### [facility] CLIA [id number] [address] Eosinophils/100 WBC (Bld) 3.8 % Normal [facility] Comment on above: Order Comment: Speci men Type: BLOOD SPECIMEN Ordering Facility: [facility] Address: [address] [address] Performed By: #### 2 4323-8 #### [facility] CLIA [id number] [address] [place] Erythrocyte distribution width (RBC) [Ratio] 17.4 % High 11.5-15.0 [facility] Comment on above: Order Comment: Speci men Type: BLOOD SPECIMEN Ordering Facility: [facility] Address: [address] [address] Performed By: #### 2 4323-8 #### [facility] CLIA [id number] [address] [place] Hematocrit (Bld) [Volume fraction] 30.9 % Low 36.0-46.0 [facility] Comment on above: Order Comment: Speci men Type: BLOOD SPECIMEN Ordering Facility: [facility] Address: [address] [address] Performed By: #### 2 4323-8 #### [facility] CLIA [id number] [address] [place] [address] [place] Hemoglobin (Bld) [Mass/Vol] 9.6 g/dL Low 11.5-15.5 [facility] Comment on above: Order Comment: Speci men Type: BLOOD SPECIMEN Ordering Facility: [facility] Address: [address] [place] [address] Performed By: #### 2 4323-8 #### [facility] CLIA [id number] [address] [place] [address] [place] Immature granulocytes (Bld) [#/Vol] 0.06 10*3/uL Normal <0.10 [facility] Comment on above: Order Comment: Speci men Type: BLOOD SPECIMEN Ordering Facility: [facility] Address: [address] [place] [address] Performed By: #### 2 4323-8 #### [facility] CLIA [id number] [address] [place] Immature granulocytes/100 WBC (Bld) 0.5 % Normal [facility] Comment on above: Order Comment: Speci men Type: BLOOD SPECIMEN Ordering Facility: [facility] Address: [address] [place] [address] Performed By: #### 2 4323-8 #### [facility] CLIA [id number] [address] [place] [address] [place] Lymphocytes (Bld) [#/Vol] 3.79 10*3/uL Normal 1.00-4.00 [facility] Comment on above: Order Comment: Speci men Type: BLOOD SPECIMEN Ordering Facility: [facility] Address: [address] [place] [address] Performed By: #### 2 4323-8 #### [facility] CLIA [id number] [address] Lymphocytes/100 WBC (Bld) 34.3 % Normal [facility] Comment on above: Order Comment: Speci men Type: BLOOD SPECIMEN Ordering Facility: [facility] Address: [address] [address] Performed By: #### 2 4323-8 #### [facility] CLIA [id number] [address] MCH (RBC) [Entitic mass] 27.3 pg Normal 26.0-34.0 [facility] Comment on above: Order Comment: Speci men Type: BLOOD SPECIMEN Ordering Facility: [facility] Address: [address] [place] [address] Performed By: #### 2 4323-8 #### [facility] CLIA [id number] [address] [place] MCHC (RBC) [Mass/Vol] 31.1 g/dL Normal 30.5-36.0 [facility] Comment on above: Order Comment: Speci men Type: BLOOD SPECIMEN Ordering Facility: [facility] Address: [address] [place] [address] Performed By: #### 2 4323-8 #### [facility] CLIA [id number] [address] MCV (RBC) [Entitic vol] 87.8 fL Normal 80.0-100.0 [facility] Comment on above: Order Comment: Speci men Type: BLOOD SPECIMEN Ordering Facility: [facility] Address: [address] [place] [address] Performed By: #### 2 4323-8 #### [facility] CLIA [id number] [address] [place] Monocytes (Bld) [#/Vol] 1.16 10*3/uL High <0.87 [facility] Comment on above: Order Comment: Speci men Type: BLOOD SPECIMEN Ordering Facility: [facility] Address: [address] [place] [address] Performed By: #### 2 4323-8 #### [facility] CLIA [id number] [address] Monocytes/100 WBC (Bld) 10.5 % Normal [facility] Comment on above: Order Comment: Speci men Type: BLOOD SPECIMEN Ordering Facility: [facility] Address: [address] [address] Performed By: #### 2 4323-8 #### [facility] CLIA [id number] [address] [place] [address] [place] Neutrophils (Bld) [#/Vol] 5.51 10*3/uL Normal 1.45-7.50 [facility] Comment on above: Order Comment: Speci men Type: BLOOD SPECIMEN Ordering Facility: [facility] Address: [address] [address] Performed By: #### 2 4323-8 #### [facility] CLIA [id number] [address] [place] Neutrophils/100 WBC (Bld) 50.0 % Normal [facility] Comment on above: Order Comment: Speci men Type: BLOOD SPECIMEN Ordering Facility: [facility] Address: [address] [place] [address] Performed By: #### 2 4323-8 #### [facility] CLIA [id number] [address] [place] [address] [place] Nucleated RBC (Bld) [#/Vol] 10*3/uL Normal <0.01 [facility] Comment on above: Order Comment: Speci men Type: BLOOD SPECIMEN Ordering Facility: [facility] Address: [address] [place] [address] Performed By: #### 2 4323-8 #### [facility] CLIA [id number] [address] [place] Nucleated RBC/100 WBC (Bld) [Ratio] 0.0 /100 WBC Normal [facility] Comment on above: Order Comment: Speci men Type: BLOOD SPECIMEN Ordering Facility: [facility] Address: [address] [place] [address] Performed By: #### 2 4323-8 #### [facility] CLIA [id number] [address] [place] Platelet mean volume (Bld) [Entitic vol] 9.7 fL Normal 9.0-12.7 [facility] Comment on above: Order Comment: Speci men Type: BLOOD SPECIMEN Ordering Facility: [facility] Address: [address] [address] Performed By: #### 2 4323-8 #### [facility] CLIA [id number] [address] Platelets (Bld) [#/Vol] 441 10*3/uL High 150-400 [facility] Comment on above: Order Comment: Speci men Type: BLOOD SPECIMEN Ordering Facility: [facility] Address: [address] [address] Performed By: #### 2 4323-8 #### [facility] CLIA [id number] [address] RBC (Bld) [#/Vol] 3.52 10*6/uL Low 3.90-5.20 [facility] Comment on above: Order Comment: Speci men Type: BLOOD SPECIMEN Ordering Facility: [facility] Address: [address] [address] Performed By: #### 2 4323-8 #### [facility] CLIA [id number] [address] WBC (Bld) [#/Vol] 11.04 10*3/uL High 3.70-11.00 [facility] Comment on above: Order Comment: Speci men Type: BLOOD SPECIMEN Ordering Facility: [facility] Address: [address] [place] [address] Performed By: #### 2 4323-8 #### [facility] CLIA [id number] [address] CNDSon 11-26-2022 [facility]DS HNO ID: [id number] Author: Sherif Lu PA-C Service: Orthopaedic Surgery Author Type: Physician Study Lead Type: Discharge Summary Filed: 11/29/2022 7:38 AM Note Text: Attestation signed by Angel Luis Hernández MD at 11/29/2022 8:10 AM Angel Luis Hernández MD DISCHARGE SUMMARY PATIENT NAME: Bev Webb ADMISSION DATE: 11/24/2022 DISCHARGE DATE: 11/29/2022 PATIENT DISCHARGE SUMMARY C O N F I D E N T I A L I N F O R M A T I O N The following is a brief overview of your hospitalization. Some of the information contained on this summary may be confidential. This information should be kept in your records and should be shared with your regular doctor. These instructions explain what you or your home care nurse need to do to continue your care at home or at another healthcare facility Please go over these instructions with your nurse and home care nurse. If you are not sure about something, please ask. Highest Readmission Risk Score: 13 The 30 day readmissions risk score is derived from an internally validated risk model which evaluates patient level characteristics, utilization history, medication orders and lab results up until the day of discharge. Patients with a score of 40 or above are considered highest risk for readmission. Specific patient level drivers will be listed at the bottom of the summary. The 30 day readmissions risk score is derived from an internally validated risk model which evaluates patient level characteristics, utilization history, medication orders and lab results up until the day of discharge. Patients with a score of 40 or above are considered highest risk for readmission. Where I Will be Going after Discharge: Home My Condition at Discharge: Stable PRINCIPAL DIAGNOSIS: (Reason after study for this admission): Procedure(s): INCISION AND DRAINAGE ABSCESS UPPER EXTREMITY, COMPLICATED OR MULTIPLE OTHER DIAGNOSES: Patient Active Hospital Problem List: Abscess of left hand (11/24/2022) GERD (gastroesophageal reflux disease) (01/15/2011) PUD (peptic ulcer disease) (01/15/2011) CAD (coronary artery disease) (06/06/2014) Hypertension (08/30/2018) COPD with chronic bronchitis (HCC) () Tobacco use disorder, continuous () OPERATIONS PERFORMED: Procedure(s): INCISION AND DRAINAGE ABSCESS UPPER EXTREMITY, COMPLICATED OR MULTIPLE My Doctors and Medical Team: My Main Hospital Doctor: Doctor Angel Luis Hernández MD PHYSICAL EXAM: See daily progress note Vitals: BP 125/68 Pulse 94 Temp 36.8 ?C (98.2 ?F) (Oral) Resp 18 Ht 160 cm (5' 3) Wt 66.9 kg (147 lb 7.8 oz) LMP 11/07/2021 SpO2 97% BMI 26.13 kg/m? SUMMARY OF WHAT HAPPENED WHILE PATIENT WAS IN THE HOSPITAL: The patient is status post left carpal tunnel release on 11/10/[address] Hernández. The patient was doing well initially but developed increased redness, pain and swelling at the surgical site on 11/23. It was determined the patient had a surgical site infection/abscess and would benefit from incision and drainage of her left hand surgical site. The procedure, its risks, benefits, and potential complications were discussed in detail prior to surgery. The patient conveyed understanding of all topics and consented to surgery. The patient underwent incision and drainage of the left hand surgical site on 11/24/[address] Hernández. The patient tolerated the procedure well and was returned to the Post Anesthesia Care Unit in stable condition. Vital signs per PACU protocol. VTE risk assessment performed. O2 therapy monitored by Respiratory Therapy to include incentive spirometry, ADL, wound and support per physician order set postop protocol. ID was consulted for antibiotic recommendations and management. Wound culture was positive for MRSA susceptible to Bactrim. Lab values and vital signs were monitored and remained stable. Patient was determined safe for discharge to home on 11/29/2022. TREATMENT / WOUND CARE: Take antibiotics as prescribed until they are gone. Continue twice daily hand soaks for 20 minutes in equal parts hibiclens and sterile saline Place a clean and dry dressing over the incision twice daily after hand soaks If you have any concerns about your wound, please contact the office. Keep wound and incision area clean and dry. If there is any drainage please contact the office You may not submerge the wound under standing water for at least 6 weeks time after surgery (i.e. no baths, no hot tubs, no swimming pools). Do not rub the wound, but rather pat dry. Observe the wound for signs of infection, including increased redness, swelling, or persistent drainage around the incision site. If (more content not included)... [facility] CONSULT PROGon 11-26-2022 CONSULT PROG HNO ID: [id number] Author: Ismael Ambrose RPh Service: Pharmacy Author Type: Pharmacist Type: Consult Progress Note Filed: 11/26/2022 11:32 AM Note Text: PHARMACY VANCOMYCIN DOSING NOTE Patient Name: Bev Webb Admission Date: 11/24/2022 Date of Consult: 11/26/2022 Time of Consult: 11:31 AM Indication: Skin/Soft tissue infection, abscess of left hand Goal Range: 15-20 mcg/mL RECOMMENDATIONS/PLAN: Pharmacy consulted for vancomycin dosing for Bev Webb, a 47 year old, female who is being treated with vancomycin. 1. Patient is currently ordered Vancomycin 1 g IV q12h. Today is day 2 of therapy. 2. No vancomycin level has been drawn for this dosing regimen. 3. The present dose of vancomycin is the recommended dosage for this patient at this time. Continue therapy as prescribed. 4. The next vancomycin level has been ordered for 11/27 (Completed) We will follow patient renal function, vancomycin levels and doses with you during the course of therapy. Additional recommendations will appear in follow up notes. If you have any questions, please contact pharmacy at [phone]. Age: [age] year old Allergies: ALLERGIES Allergen Reactions Doxycycline Entex [Phenylephrin* Erythromycin Shortness of Breath Can take zpak Flexeril [Cyclobenz* Cough denies Omnicef [Cefdinir] GI Upset Penicillin G Intolerance unknown reaction during childhood Risperdal [Risperid* Swelling Ultram [Tramadol Hc* Swelling Valtrex [Valacyclov* Rash Last 3 Encounter Wt Readings: Date: Wt: 11/24/2022 66.9 kg (147 lb 7.8 oz) 11/03/2022 64 kg (141 lb) 10/28/2022 64 kg (141 lb) Last 1 Encounter Ht Readings: Date: Ht: 11/24/2022 160 cm (5' 3) CrCl: 93.6 mL/min Temp (24hrs), Av.8 ?C (98.3 ?F), Min:36.6 ?C (97.9 ?F), Max:37.1 ?C (98.8 ?F) - Current Temp: 36.8 ?C (98.2 ?F) Labs BUN (mg/dL) Date Value 11/26/2022 13 11/25/2022 7 10/12/2022 10 Creatinine (mg/dL) Date Value 11/26/2022 0.69 11/25/2022 0.62 10/12/2022 1.00 (H) WBC (k/uL) Date Value 11/26/2022 11.04 (H) 11/25/2022 12.47 (H) 10/12/2022 14.02 (H) Vancomycin Levels: No results found for: KELLY Ambrose [facility] Normal [facility] CONSULT PROG HNO ID: [id number] Author: Conchis Thomas DO Service: Hospital Medicine Author Type: Physician Type: Consult Progress Note Filed: 11/26/2022 11:06 AM Note Text: DEPARTMENT OF HOSPITAL MEDICINE CONSULT PROGRESS NOTE SERVICE DATE: 11/26/2022 SERVICE TIME: 11:02 AM Primary Care Physician: Martinez Garcia MD NIGHT AND WEEKEND COVERAGE: [place] COVERAGE: Days: [phone], please page attending physician. Nights: [phone], please page [place] [facility] Night coverage pager [phone]. Subjective INTERVAL HPI: Patient states she had left carpal tunnel release for Left carpal tunnel syndrome on 11/10/[address] Angel Luis Hernández. Sutures were removed on 11/22/22 in office with wound well healed without signs of infection. Patient was admitted on 11/24/22 for post op infection of left hand. Denies any chest pain, shortness of breath, fever, chills, nausea, vomiting, abdominal pain or diarrhea. Denies any dizziness or lightheadedness. Denies any numbness, tingling, headache or blurry vision. Denies any dysuria or urinary frequency. Is the Patient Experiencing Pain: Yes post op pain MEDICATIONS: Reviewed Current Facility-Administered Medications Medication Dose Route Frequency busPIRone (BUSPAR) tab(s) 15 mg 15 mg ORAL TID gabapentin 400 mg cap(s) (NEURONTIN) 400 mg ORAL TID atorvastatin 40 mg tab(s) (LIPITOR) 40 mg ORAL DAILY aspirin, enteric coated 81 mg tab(s) 81 mg ORAL DAILY pantoprazole DR 20 mg tab(s) (PROTONIX) 20 mg ORAL DAILY (6 AM) venlafaxine 75 mg tab(s) (EFFEXOR) 75 mg ORAL BID aluminum-magnesium hydroxide-simethicone 200-200-20 mg/5 mL 30 mL (MAALOX,MYLANTA,MAG-A L PLUS) 30 mL ORAL q 6 H PRN NaCl 0.9% iv flush bag 20 mL INTRAVENOUS PRN NaCl 0.45% iv infusion 5-30 mL/hr INTRAVENOUS CONTINUOUS docusate sodium 100 mg cap(s) (COLACE) 100 mg ORAL BID PRN oxyCODONE-acetaminoph en 5-325 mg 1-2 tablet (PERCOCET) 1-2 tablet ORAL q 4 H PRN acetaminophen 650 mg tab(s) (TYLENOL) 650 mg ORAL q 6 H PRN ipratropium-albuterol 3 mL nebulizer solution (DUONEB) 3 mL INHALATION QID PRN cetirizine 10 mg tab(s) (ZyrTEC) 10 mg ORAL DAILY HYDROmorphone 0.2 mg injection (DILAUDID) 0.2 mg INTRAVENOUS q 6 H PRN hydrALAZINE 12.5 mg tab(s) (APRESOLINE) 12.5 mg ORAL q 8 H PRN vancomycin dosing and monitoring per pharmacy OTHER As Directed vancomycin iv piggyback 1 g in D5W 200 mL (VANCOCIN) 1 g INTRAVENOUS q 12 HR cefepime 2 g in D5W 100 mL Vial-Bag (MAXIPIME) 2 g INTRAVENOUS q 8 HR Objective PHYSICAL EXAM: BP 134/89 Pulse 76 Temp (Src) 98.4 (Oral) Resp 16 Ht 5' 3 (1.60m) Wt 147 lb 7.8 oz (66.9kg) SpO2 97% LMP 11/07/2021 BMI 26.13 kg/(m2). O2 Therapy: Room Air Physical Exam Performed: GENERAL: Alert, no distress, cooperative SKIN: Skin color, texture, turgor normal. No rashes or lesions. LUNGS: Lungs clear to auscultation, Good diaphragmatic excursion CARDIAC: Normal S1 and S2; no rubs, murmurs, or gallops ABDOMEN: Abdomen soft, non-tender, BS normal, No masses or organomegaly EXTREMITIES: 5/5 strength in bilateral lower extremities, dressing intact in left UE PULSES: 2+ posterial tibial, 2+ dorsalis pedis Lines, Drains, and Airways Line Duration Peripheral 11/25/22 2330 Right Forearm 22 Gauge <1 day DATA: Diagnostic tests reviewed for today's visit: Most recent labs Impression/Recommenda tions This is a 47 year old female with a pmhx significatn for GERD, PUD, anxiety, CAD, HLD, HTN, COPD and tobacco use who presents for a Left hand abscess s/p IANDD with orthopedics hospital medicine is consulted for Hospital medicine is being consulted for HTN, COPD, Post-Op Wound infection Patient states she had left carpal tunnel release for Left carpal tunnel syndrome on 11/10/[address] Angel Luis Hernández. Sutures were removed on 11/22/22 in office with wound well healed without signs of infection. Patient was admitted on 11/24/22 for post op infection of left hand. Denies any chest pain, shortness of breath, fever, chills, nausea, vomiting, abdominal pain or diarrhea. Denies any dizziness or lightheadedness. Denies any numbness, tingling, headache or blurry vision. Denies any dysuria or urinary frequency. Principal Problem: Abscess of left hand POA: Yes -s/p Left hand, I and D on 11/24/22 -pain control and VTE ppx per primary team -continue iv Cefepime and iv Vancomycin per ID -follow up with wound cx -ID has been consulted Leukocytosis POA: Yes --improving -due to abscess of left hand and reactive post op -monitor closely Active Problems: GERD (gastroesophageal reflux disease) POA: Yes PUD (peptic ulcer disease) POA: Yes -continue Protonix CAD (coronary artery disease) POA: Yes -denies any chest pain or shortness of breath -continue Aspirin, Lipitor Hyperlipidemia POA: Yes -continue Aspirin, Lipitor Hypertension POA: Yes -patient denies any history of HTN and not on any medications -patient states her BP is being takes from lower ex (more content not included)... [facility] CONSULT PROG HNO ID: [id number] Author: Anyi Bullock MD Service: Infectious Disease Author Type: Physician Type: Consult Progress Note Filed: 11/26/2022 10:13 AM Note Text: INFECTIOUS DISEASE PROGRESS NOTE Patient Name: Bev Webb INTERVAL HISTORY: No fevers. Pain is controlled. No new complaints. ROS checked in details. All qs answered. Patient Active Hospital Problem List: Abscess of left hand (11/24/2022) GERD (gastroesophageal reflux disease) (01/15/2011) PUD (peptic ulcer disease) (01/15/2011) CAD (coronary artery disease) (06/06/2014) Hypertension (08/30/2018) COPD with chronic bronchitis (HCC) () Tobacco use disorder, continuous () ASSESSMENT: Abscess of left hand, post op SSI GERD (gastroesophageal reflux disease) PUD (peptic ulcer disease) CAD (coronary artery disease) Hyperlipidemia Hypertension COPD with chronic bronchitis Emphysema (subcutaneous) (surgical) resulting from a procedure Centrilobular emphysema Tobacco use disorder, continuous PLAN: Vancomycin Cefepime Vanco T Follow operative cultures Wound care Monitor temps and counts Ok to discharge on PO bactrim and Levaquin x 5 days if cultures remain negative in evening today MEDICATIONS: reviewed. Current Facility-Administered Medications Medication Dose Route Frequency busPIRone (BUSPAR) tab(s) 15 mg 15 mg ORAL TID gabapentin 400 mg cap(s) (NEURONTIN) 400 mg ORAL TID atorvastatin 40 mg tab(s) (LIPITOR) 40 mg ORAL DAILY aspirin, enteric coated 81 mg tab(s) 81 mg ORAL DAILY pantoprazole DR 20 mg tab(s) (PROTONIX) 20 mg ORAL DAILY (6 AM) venlafaxine 75 mg tab(s) (EFFEXOR) 75 mg ORAL BID aluminum-magnesium hydroxide-simethicone 200-200-20 mg/5 mL 30 mL (MAALOX,MYLANTA,MAG-A L PLUS) 30 mL ORAL q 6 H PRN NaCl 0.9% iv flush bag 20 mL INTRAVENOUS PRN NaCl 0.45% iv infusion 5-30 mL/hr INTRAVENOUS CONTINUOUS docusate sodium 100 mg cap(s) (COLACE) 100 mg ORAL BID PRN oxyCODONE-acetaminoph en 5-325 mg 1-2 tablet (PERCOCET) 1-2 tablet ORAL q 4 H PRN acetaminophen 650 mg tab(s) (TYLENOL) 650 mg ORAL q 6 H PRN ipratropium-albuterol 3 mL nebulizer solution (DUONEB) 3 mL INHALATION QID PRN cetirizine 10 mg tab(s) (ZyrTEC) 10 mg ORAL DAILY HYDROmorphone 0.2 mg injection (DILAUDID) 0.2 mg INTRAVENOUS q 6 H PRN hydrALAZINE 12.5 mg tab(s) (APRESOLINE) 12.5 mg ORAL q 8 H PRN vancomycin dosing and monitoring per pharmacy OTHER As Directed vancomycin iv piggyback 1 g in D5W 200 mL (VANCOCIN) 1 g INTRAVENOUS q 12 HR cefepime 2 g in D5W 100 mL Vial-Bag (MAXIPIME) 2 g INTRAVENOUS q 8 HR potassium chloride ER 40 mEq tab(s) (K-DUR, KLOR-CON) 40 mEq ORAL ONCE PHYSICAL EXAM: Vital signs: BP 134/89 Pulse 76 Temp 36.9 ?C (98.4 ?F) (Oral) Resp 16 Ht 160 cm (5' 3) Wt 66.9 kg (147 lb 7.8 oz) LMP 11/07/2021 SpO2 97% BMI 26.13 kg/m? Temp (24hrs), Av.9 ?C (98.4 ?F), Min:36.6 ?C (97.9 ?F), Max:37.1 ?C (98.8 ?F) General: alert, oriented, NAD Lungs: bilaterally clear to auscultation Heart: regular rate and rhythm Abdomen: soft, non tender, non distended, BS+ Extremities: L hand w dressing No rashes No joint inflammation Neck supple Lines ok No CVAT Lines, Drains, and Airways Line Duration Peripheral 11/25/22 2330 Right Forearm 22 Gauge <1 day Labs: Recent Labs 11/26/22 0626 11/25/22 0345 WBC 11.04* 12.47* HB 9.6* 10.1* PLT 441* 474* NA 139 134* K 3.2* 4.2 CO2 25 24 BUN 13 7 CREAT 0.69 0.62 AST 8* 14 ALT 6* 6* TBILI <0.2* 0.2 ALKPHOS 95 97 Microbiology data: reviewed Imaging data: reviewed Anyi Bullock MD Pager: Date of service: 11/26/2022 Time of service: 10:10 AM This note is not final until Authenticated by responsible provider. Normal [facility] Comprehensive metabolic 2000 panelon 11-26-2022 Albumin [Mass/Vol] 3.3 g/dL Low 3.9-4.9 [facility] Comment on above: Order Comment: Speci men Type: BLOOD SPECIMEN Ordering Facility: [facility] Address: [address] [place] [address] Performed By: #### 2 4323-8 #### [facility] CLIA [id number] [address] ALP [Catalytic activity/Vol] 95 U/L Normal 34-123 [facility] Comment on above: Order Comment: Speci men Type: BLOOD SPECIMEN Ordering Facility: [facility] Address: [address] [address] Performed By: #### 2 432-8 #### [facility] CLIA [id number] [address] ALT [Catalytic activity/Vol] 6 U/L Low 7-38 [facility] Comment on above: Order Comment: Speci men Type: BLOOD SPECIMEN Ordering Facility: [facility] Address: [address] [address] Performed By: #### 2 4323-8 #### [facility] CLIA [id number] [address] Anion gap [Moles/Vol] 9 mmol/L Normal 9-18 [facility] Comment on above: Order Comment: Speci men Type: BLOOD SPECIMEN Ordering Facility: [facility] Address: [address] [address] Performed By: #### 2 3-8 #### [facility] CLIA [id number] [address] [place] [address] [place] AST [Catalytic activity/Vol] 8 U/L Low 13-35 [facility] Comment on above: Order Comment: Speci men Type: BLOOD SPECIMEN Ordering Facility: [facility] Address: [address] [address] Performed By: #### 2 4323-8 #### [facility] CLIA [id number] [address] [place] [address] [place] Bilirubin [Mass/Vol] mg/dL Low 0.2-1.3 [facility] Comment on above: Order Comment: Speci men Type: BLOOD SPECIMEN Ordering Facility: [facility] Address: [address] [place] [address] Performed By: #### 2 4323-8 #### [facility] CLIA [id number] [address] [place] Calcium [Mass/Vol] 8.9 mg/dL Normal 8.5-10.2 [facility] Comment on above: Order Comment: Speci men Type: BLOOD SPECIMEN Ordering Facility: [facility] Address: [address] [address] Performed By: #### 2 4323-8 #### [facility] CLIA [id number] [address] [place] Chloride [Moles/Vol] 105 mmol/L Normal 97-105 [facility] Comment on above: Order Comment: Speci men Type: BLOOD SPECIMEN Ordering Facility: [facility] Address: [address] [address] Performed By: #### 2 4323-8 #### [facility] CLIA [id number] [address] [place] [address] [place] CO2 [Moles/Vol] 25 mmol/L Normal 22-30 [facility] Comment on above: Order Comment: Speci men Type: BLOOD SPECIMEN Ordering Facility: [facility] Address: [address] [address] Performed By: #### 2 4323-8 #### [facility] CLIA [id number] [address] STATES OF [facility] Creatinine [Mass/Vol] 0.69 mg/dL Normal 0.58-0.96 [facility] Comment on above: Order Comment: Samson morrow Type: BLOOD SPECIMEN Ordering Facility: [facility] Address: [address] [place], [place] [address] Performed By: #### 2 4323-8 #### [facility] CLIA [id number] [address] OF [facility] ESTIMATED GLOMERULAR FILTRATION RATE 109 mL/min/1.73m??? Normal >=60 [facility] Comment on above: Order Comment: Samson morrow Type: BLOOD SPECIMEN Ordering Facility: [facility] Address: [address] [place] [address] Result Comment: Betty mated Glomerular Filtration Rate (eGFR) is calculated using the 2020 CKD-EPI creatinine equation. This equation utilizes serum creatinine, sex, and age as parameters. The creatinine assay has traceable calibration to isotope dilution-mass spectrometry. Refer to KDIGO guidelines for clinical interpretation. In patients with unstable renal function, e.g. those with acute kidney injury, the eGFR may not accurately reflect actual GFR. Performed By: #### 2 4323-8 #### [facility] CLIA [id number] [address] [place] Glucose [Mass/Vol] 103 mg/dL High 74-99 [facility] Comment on above: Order Comment: Samson morrow Type: BLOOD SPECIMEN Ordering Facility: [facility] Address: [address] [place] [address] Result Comment: The [place] Diabetes [employer] (ADA) provides guidance for cutoff values for fasting glucose and random glucose. The ADA defines fasting as no caloric intake for at least 8 hours. Fasting plasma glucose results between 100 to 125 mg/dL indicate increased risk for diabetes (prediabetes). Fasting plasma glucose results greater than or equal to 126 mg/dL meet the criteria for diagnosis of diabetes. In the absence of unequivocal hyperglycemia, results should be confirmed by repeat testing. In a patient with classic symptoms of hyperglycemia or hyperglycemic crisis, random plasma glucose results greater than or equal to 200 mg/dL meet the criteria for diagnosis of diabetes. Reference: Standards of Medical Care in Diabetes 2016, [place] [employer]. Diabetes Care. 2016.39(Suppl 1). Performed By: #### 2 4323-8 #### [facility] CLIA [id number] [address] Potassium [Moles/Vol] 3.2 mmol/L Low 3.7-5.1 [facility] Comment on above: Order Comment: Speci men Type: BLOOD SPECIMEN Ordering Facility: [facility] Address: [address] [place] [address] Performed By: #### 2 4323-8 #### [facility] CLIA [id number] [address] Protein [Mass/Vol] 5.7 g/dL Low 6.3-8.0 [facility] Comment on above: Order Comment: Speci men Type: BLOOD SPECIMEN Ordering Facility: [facility] Address: [address] [place] [address] Performed By: #### 2 4323-8 #### [facility] CLIA [id number] [address] Sodium [Moles/Vol] 139 mmol/L Normal 136-144 [facility] Comment on above: Order Comment: Speci men Type: BLOOD SPECIMEN Ordering Facility: [facility] Address: [address] [place] [address] Performed By: #### 2 4323-8 #### [facility] CLIA [id number] [address] Urea nitrogen [Mass/Vol] 13 mg/dL Normal 7-21 [facility] Comment on above: Order Comment: Speci men Type: BLOOD SPECIMEN Ordering Facility: [facility] Address: [address] [place] [address] Performed By: #### 2 4323-8 #### [facility] CLIA [id number] [address] OF [facility] CASE MGT INIT DEANjohn 2022 CASE MGT INIT DEAN HNO ID: [id number] Author: Macy Laguerre RN Service: ? Author Type: Registered Nurse Type: Care Mgt Initial Assessment Filed: 11/25/2022 9:28 AM Note Text: CARE MANAGEMENT: ASSESSMENT AND DISCHARGE PLAN SERVICE DATE: November 25, 2022 SERVICE TIME: 9:27 AM PRIMARY CARE PHYSICIAN: Martinez Garcia MD Primary Contact: Extended Emergency Contact Information Primary Emergency Contact: aCitlyn Alexander Address: [address] [place] [address] Relation: Mother ADMISSION STATUS: Observation Insurance Provider: [facility] MEDICAID NEEDS PRIOR TO DISCHARGE Needs Prior to Discharge: To Be Determined POTENTIAL TRANSITION PLANS To Be Determined Patient's perception of need for this admission: Elective surgery ADVANCE DIRECTIVES Current Advance Directive: None Produce Wrapper Attempted to Assist with AD Completion: Yes MS/BEHAVIOR Baseline Mental Status Prior to this Illness what was the patient's Baseline Mental Status?: Alert AND Oriented Prior to this illness, has anyone described the patient having any of the following behaviors?: Not Applicable Relationship of the informant to the patient:: Self READMISSION Last Discharge Date: 11/10/22 Is this Within the Past 30 days? From what level of care did patient present?: Home Last discharge within 30 days: No CAREGIVER ASSESSMENT Caregiver is ready, willing and able to meet the patient's needs as recommended by the inter-professional team:: No Caregiver needed Patient's transition needs and plan for meeting these needs: TBD Are you interested in bedside delivery of your medications? No ASSESSMENT AND PLAN: This patient has been screened for Care Management Transitional Planning Services. At this time, it does not appear this patient will require transition planning services. Should this change, and the patient require transition planning services during this admission, please contact the returned case inspector assigned to the floor. Thank you. SIGNATURE: Macy Laguerre RN PATIENT NAME: Bev Gerardo Call DATE: November 25, 2022 TIME: 9:27 AM CONTACT #: [phone] Normal [facility] CBC W Auto Differential pane l (Bld)on 11-25-2022 Basophils (Bld) [#/Vol] 0.03 10*3/uL Normal <0.11 [facility] Comment on above: Order Comment: Speci men Type: BLOOD SPECIMEN Ordering Facility: [facility] Address: [address] [place] [id number] Performed By: #### 5 7021-8 #### [facility] CLIA [id number] [address] [place] [address] [place] Basophils/100 WBC (Bld) 0.2 % Normal [facility] Comment on above: Order Comment: Speci men Type: BLOOD SPECIMEN Ordering Facility: [facility] Address: [address] [address] Performed By: #### 5 7021-8 #### [facility] CLIA [id number] [address] [place] [address] [place] Differential cell count method Nom (Bld) Auto Normal [facility] Comment on above: Order Comment: Speci men Type: BLOOD SPECIMEN Ordering Facility: [facility] Address: [address] [place] [address] Performed By: #### 5 7021-8 #### [facility] CLIA [id number] [address] [place] [address] [place] Eosinophils (Bld) [#/Vol] 10*3/uL Normal <0.46 [facility] Comment on above: Order Comment: Speci men Type: BLOOD SPECIMEN Ordering Facility: [facility] Address: [address] [place] [address] Performed By: #### 5 7021-8 #### [facility] CLIA [id number] [address] [place] Eosinophils/100 WBC (Bld) 0.0 % Normal [facility] Comment on above: Order Comment: Speci men Type: BLOOD SPECIMEN Ordering Facility: [facility] Address: [address] [address] Performed By: #### 5 7021-8 #### [facility] CLIA [id number] [address] [place] [address] [place] Erythrocyte distribution width (RBC) [Ratio] 17.2 % High 11.5-15.0 [facility] Comment on above: Order Comment: Speci men Type: BLOOD SPECIMEN Ordering Facility: [facility] Address: [address] [address] Performed By: #### 5 7021-8 #### [facility] CLIA [id number] [address] [place] Hematocrit (Bld) [Volume fraction] 33.0 % Low 36.0-46.0 [facility] Comment on above: Order Comment: Speci men Type: BLOOD SPECIMEN Ordering Facility: [facility] Address: [address] [address] Performed By: #### 5 7021-8 #### [facility] CLIA [id number] [address] [place] [address] [place] Hemoglobin (Bld) [Mass/Vol] 10.1 g/dL Low 11.5-15.5 [facility] Comment on above: Order Comment: Speci men Type: BLOOD SPECIMEN Ordering Facility: [facility] Address: [address] [address] Performed By: #### 5 7021-8 #### [facility] CLIA [id number] [address] [place] [address] [place] Immature granulocytes (Bld) [#/Vol] 0.04 10*3/uL Normal <0.10 [facility] Comment on above: Order Comment: Speci men Type: BLOOD SPECIMEN Ordering Facility: [facility] Address: [address] [address] Performed By: #### 5 7021-8 #### [facility] CLIA [id number] [address] [place] Immature granulocytes/100 WBC (Bld) 0.3 % Normal [facility] Comment on above: Order Comment: Speci men Type: BLOOD SPECIMEN Ordering Facility: [facility] Address: [address] [address] Performed By: #### 5 7021-8 #### [facility] CLIA [id number] [address] [place] [address] [place] Lymphocytes (Bld) [#/Vol] 1.13 10*3/uL Normal 1.00-4.00 [facility] Comment on above: Order Comment: Speci men Type: BLOOD SPECIMEN Ordering Facility: [facility] Address: [address] [address] Performed By: #### 5 7021-8 #### [facility] CLIA [id number] [address] [place] Lymphocytes/100 WBC (Bld) 9.1 % Normal [facility] Comment on above: Order Comment: Speci men Type: BLOOD SPECIMEN Ordering Facility: [facility] Address: [address] [address] Performed By: #### 5 7021-8 #### [facility] CLIA [id number] [address] MCH (RBC) [Entitic mass] 26.5 pg Normal 26.0-34.0 [facility] Comment on above: Order Comment: Speci men Type: BLOOD SPECIMEN Ordering Facility: [facility] Address: [address] [place] [address] Performed By: #### 5 7021-8 #### [facility] CLIA [id number] [address] [place] MCHC (RBC) [Mass/Vol] 30.6 g/dL Normal 30.5-36.0 [facility] Comment on above: Order Comment: Speci men Type: BLOOD SPECIMEN Ordering Facility: [facility] Address: [address] [place] [address] Performed By: #### 5 7021-8 #### [facility] CLIA [id number] [address] MCV (RBC) [Entitic vol] 86.6 fL Normal 80.0-100.0 [facility] Comment on above: Order Comment: Speci men Type: BLOOD SPECIMEN Ordering Facility: [facility] Address: [address] [address] Performed By: #### 5 7021-8 #### [facility] CLIA [id number] [address] Monocytes (Bld) [#/Vol] 0.40 10*3/uL Normal <0.87 [facility] Comment on above: Order Comment: Speci men Type: BLOOD SPECIMEN Ordering Facility: [facility] Address: [address] [place] [address] Performed By: #### 5 7021-8 #### [facility] CLIA [id number] [address] [place] [address] [place] Monocytes/100 WBC (Bld) 3.2 % Normal [facility] Comment on above: Order Comment: Speci men Type: BLOOD SPECIMEN Ordering Facility: [facility] Address: [address] [address] Performed By: #### 5 7021-8 #### [facility] CLIA [id number] [address] [place] [address] [place] Neutrophils (Bld) [#/Vol] 10.87 10*3/uL High 1.45-7.50 [facility] Comment on above: Order Comment: Speci men Type: BLOOD SPECIMEN Ordering Facility: [facility] Address: [address] [place] [address] Performed By: #### 5 7021-8 #### [facility] CLIA [id number] [address] [place] Neutrophils/100 WBC (Bld) 87.2 % Normal [facility] Comment on above: Order Comment: Speci men Type: BLOOD SPECIMEN Ordering Facility: [facility] Address: [address] [place] [address] Performed By: #### 5 7021-8 #### [facility] CLIA [id number] [address] [place] Nucleated RBC (Bld) [#/Vol] 10*3/uL Normal <0.01 [facility] Comment on above: Order Comment: Speci men Type: BLOOD SPECIMEN Ordering Facility: [facility] Address: [address] Performed By: #### 5 7021-8 #### [facility] CLIA [id number] [address] [place] Nucleated RBC/100 WBC (Bld) [Ratio] 0.0 /100 WBC Normal [facility] Comment on above: Order Comment: Speci men Type: BLOOD SPECIMEN Ordering Facility: [facility] Address: [address] [address] Performed By: #### 5 7021-8 #### [facility] CLIA [id number] [address] [place] [address] [place] Platelet mean volume (Bld) [Entitic vol] 9.7 fL Normal 9.0-12.7 [facility] Comment on above: Order Comment: Speci men Type: BLOOD SPECIMEN Ordering Facility: [facility] Address: [address] [place] [address] Performed By: #### 5 7021-8 #### [facility] CLIA [id number] [address] [place] [address] [place] Platelets (Bld) [#/Vol] 474 10*3/uL High 150-400 [facility] Comment on above: Order Comment: Speci men Type: BLOOD SPECIMEN Ordering Facility: [facility] Address: [address] [place] [address] Performed By: #### 5 7021-8 #### [facility] CLIA [id number] [address] [place] [address] [place] RBC (Bld) [#/Vol] 3.81 10*6/uL Low 3.90-5.20 [facility] Comment on above: Order Comment: Speci men Type: BLOOD SPECIMEN Ordering Facility: [facility] Address: [address] [place] [address] Performed By: #### 5 7021-8 #### [facility] CLIA [id number] [address] [place] [address] [place] WBC (Bld) [#/Vol] 12.47 10*3/uL High 3.70-11.00 [facility] Comment on above: Order Comment: Speci men Type: BLOOD SPECIMEN Ordering Facility: [facility] Address: [address] [place] [address] Performed By: #### 5 7021-8 #### [facility] CLIA [id number] [address] CONSULTon 11-25-2022 CONSULT HNO ID: [id number] Author: Anyi Bullock MD Service: Infectious Disease Author Type: Physician Type: Consults Filed: 11/25/2022 3:31 PM Note Text: INFECTIOUS DISEASE INITIAL CONSULT SERVICE DATE: 11/25/2022 SERVICE TIME: 10AM REASON FOR CONSULT: L hand abscess Subjective Patient is seen at the request of Dr Hernández. My final recommendations will be communicated back to the requesting physician by way of copy of this note or shared electronic medical record. HPI: Bev Webb who is a 47 year old female with a pmhx significatn for GERD, PUD, anxiety, CAD, HLD, HTN, COPD and tobacco use who presents for a Left hand abscess s/p IANDD today with orthopedics. Hospital medicine is being consulted for HTN, COPD, Post-Op Wound infection. Patient states that she is in pain from the surgery. Other then that she is doing well. She denies any fevers, chills, Chest pain, Shortness of breath, Abdominal pain, LE swelling. Underwent IANDD and cultures are pending PAST MEDICAL HISTORY Diagnosis Date Abnormal mammogram, unspecified LEFT BREAST Abnormal Pap smear and cervical HPV (human papillomavirus) CAD (coronary artery disease) 2103 diffuse moderate CAD in the left main and RCA-40-50%, seeing Dr. Chase Centrilobular emphysema (HCC) Chronic cholecystitis 08/24/07 Chronic depressive personality disorder Chronic gastric ulcer without mention of hemorrhage, perforation, without mention of obstruction COPD with chronic bronchitis (HCC) Generalized anxiety disorder HTN (hypertension) Hyperlipidemia Incisional hernia without mention of obstruction or gangrene Irritable bowel syndrome Lumbago PONV (postoperative nausea and vomiting) Raynaud's phenomenon (by history or observed) Tobacco use disorder, continuous Daily smoker since age 16. PAST SURGICAL HISTORY Procedure Laterality Date APPENDECTOMY ENDOMETRIAL BX W/WO ENDOCERVIX BX W/O DILAT SPX 01/01/2009 Menorrhagia ESOPHAGOGASTRODUODENO SCOPY TRANSORAL DIAGNOSTIC 09/26/2012 EGD EXC BREAST LES PREOP PLMT RAD MARKER OPEN 1 LES 08/29/2009 left breast HEART CATHETERIZATION 11/07/2013 IMPLANT MESH OPN HERNIA RPR/DEBRIDEMENT CLOSURE 07/01/2008 LAPAROSCOPIC APPENDECTOMY LAPS SURG CHOLECYSTECTOMY W/CHOLANGIOGRAPHY 08/24/2007 LIG/TRNSXJ FLP TUBE ABDL/VAG APPR UNI/BI PREOP PLACEMENT NEEDLE LOC 08/29/2009 left breast REP INIT INCI/ VENTRAL HERNIA 11/27/2020 REPAIR FIRST ABDOMINAL WALL HERNIA 07/01/2008 REVISE MEDIAN N/CARPAL TUNNEL SURG Left 11/10/2022 Left CTR SEPTOPLASTY/SUBMUCOUS RESECJ W/WO CARTILAGE GRF 2001 +/- Akhil STEREOTACTIC CORE BIOPSY 07/09/2009 LEFT BREAST Social History Tobacco Use Smoking status: Every Day Packs/day: 1.00 Years: 15.00 Pack years: 15.00 Types: Cigarettes Start date: 01/20/1991 Smokeless tobacco: Never Tobacco comments: Father smoked in childhood home, currently lives with a smoker who is willing to quit with patient. Vaping Use Vaping Use: Never used Substance Use Topics Alcohol use: No Drug use: Yes Types: Marijuana Comment: Smokes 2-3 times a week FAMILY HISTORY Problem Relation Age of Onset Hypertension Mother Diabetes Mother Systemic Lupus Erythematosus Mother Alcohol/Drug Father (cardiac issues from this) Diabetes Father Allergies Father Cancer Father Esophageal Coronary Artery Disease Maternal Grandmother Emphysema Paternal Grandfather Asthma Son Diabetes Sister Diabetes Brother Cancer Other All through my father's family. Immunization History Administered Date(s) Administered Hepatitis A Adult 11/10/2018 Pneumovax 04/10/2014 Current Facility-Administered Medications Medication Dose Route Frequency hydrALAZINE 12.5 mg tab(s) (APRESOLINE) 12.5 mg ORAL q 8 H PRN vancomycin dosing and monitoring per pharmacy OTHER As Directed ceFAZolin iv piggyback 1 g in D5W (iso-osmotic) 50 mL (ANCEF) 1 g INTRAVENOUS q 8 HR vancomycin iv piggyback 1 g in D5W 200 mL (VANCOCIN) 1 g INTRAVENOUS q 12 HR busPIRone (BUSPAR) tab(s) 15 mg 15 mg ORAL TID gabapentin 400 mg cap(s) (NEURONTIN) 400 mg ORAL TID atorvastatin 40 mg tab(s) (LIPITOR) 40 mg ORAL DAILY aspirin, enteric coated 81 mg tab(s) 81 mg ORAL DAILY pantoprazole DR 20 mg tab(s) (PROTONIX) 20 mg ORAL DAILY (6 AM) venlafaxine 75 mg tab(s) (EFFEXOR) 75 mg ORAL BID aluminum-magnesium hydroxide-simethicone 200-200-20 mg/5 mL 30 mL (MAALOX,MYLANTA,MAG-A L PLUS) 30 mL ORAL q 6 H PRN NaCl 0.9% iv flush bag 20 mL INTRAVENOUS PRN NaCl 0.45% iv infusion 5-30 mL/hr INTRAVENOUS CONTINUOUS docusate sodium 100 mg cap(s) (COLACE) 100 mg ORAL BID PRN oxyCODONE-acetaminoph en 5-325 mg 1-2 tablet (PERCOCET) 1-2 tablet ORAL q 4 H PRN acetaminophen 650 mg tab(s) (TYLENOL) 650 mg ORAL q 6 H PRN ipratropium-albuterol 3 mL nebulizer solution (DUONEB) 3 mL INHALATION QID PRN cetirizine 10 mg tab(s) (ZyrTEC) 10 mg ORAL DAILY HYDROmorphone 0.2 mg injection (DILAUDID) 0.2 m (more content not included)... Normal [facility] CONSULT HNO ID: [id number] Author: Harrison Edwards DO Service: Hospital Medicine Author Type: Physician Type: Consults Filed: 11/25/2022 12:23 AM Note Text: DEPARTMENT OF HOSPITAL MEDICINE INITIAL CONSULT SERVICE DATE: 11/25/2022 SERVICE TIME: 12:20 AM Primary Care Physician: Martinez Garcia MD NIGHT AND WEEKEND COVERAGE: [facility]: Days: [phone], please page attending physician. Nights: [phone], please page [place] [facility] Night coverage pager [phone]. REASON FOR CONSULT: Post-Op Management REQUESTING PHYSICIAN: Dr. Hernández Subjective CHIEF COMPLAINT: Left Hand Abscess s/p IANDD HPI: This is a 47 year old female with a pmhx significatn for GERD, PUD, anxiety, CAD, HLD, HTN, COPD and tobacco use who presents for a Left hand abscess s/p IANDD today with orthopedics. Hospital medicine is being consulted for HTN, COPD, Post-Op Wound infection. Patient states that she is in pain from the surgery. Other then that she is doing well. She denies any fevers, chills, Chest pain, Shortness of breath, Abdominal pain, LE swelling. Travel Screening Question Response In the last 10 days, have you been in contact with someone who was confirmed or suspected to have Coronavirus/COVID-19? -- Have you had a COVID-19 viral test in the last 10 days? -- Do you have any of the following new or worsening symptoms? -- Have you traveled internationally or domestically in the last month? No Travel History Travel since 10/24/22 No documented travel since 10/24/22 Additional Travel Screening/COVID-19 Questions: Flowsheet Row Water Soluable Preparation from 10/15/2020 in Cat Scan Has patient been tested for COVID-19 outside of [place]? No PAST MEDICAL HISTORY Diagnosis Date Abnormal mammogram, unspecified LEFT BREAST Abnormal Pap smear and cervical HPV (human papillomavirus) CAD (coronary artery disease) 2103 diffuse moderate CAD in the left main and RCA-40-50%, seeing Dr. Chase Centrilobular emphysema (HCC) Chronic cholecystitis 08/24/07 Chronic depressive personality disorder Chronic gastric ulcer without mention of hemorrhage, perforation, without mention of obstruction COPD with chronic bronchitis (HCC) Generalized anxiety disorder HTN (hypertension) Hyperlipidemia Incisional hernia without mention of obstruction or gangrene Irritable bowel syndrome Lumbago PONV (postoperative nausea and vomiting) Raynaud's phenomenon (by history or observed) Tobacco use disorder, continuous Daily smoker since age 16. PAST SURGICAL HISTORY Procedure Laterality Date APPENDECTOMY ENDOMETRIAL BX W/WO ENDOCERVIX BX W/O DILAT SPX 01/01/2009 Menorrhagia ESOPHAGOGASTRODUODENO SCOPY TRANSORAL DIAGNOSTIC 09/26/2012 EGD EXC BREAST LES PREOP PLMT RAD MARKER OPEN 1 LES 08/29/2009 left breast HEART CATHETERIZATION 11/07/2013 IMPLANT MESH OPN HERNIA RPR/DEBRIDEMENT CLOSURE 07/01/2008 LAPAROSCOPIC APPENDECTOMY LAPS SURG CHOLECYSTECTOMY W/CHOLANGIOGRAPHY 08/24/2007 LIG/TRNSXJ FLP TUBE ABDL/VAG APPR UNI/BI PREOP PLACEMENT NEEDLE LOC 08/29/2009 left breast REP INIT INCI/ VENTRAL HERNIA 11/27/2020 REPAIR FIRST ABDOMINAL WALL HERNIA 07/01/2008 REVISE MEDIAN N/CARPAL TUNNEL SURG Left 11/10/2022 Left CTR SEPTOPLASTY/SUBMUCOUS RESECJ W/WO CARTILAGE GRF 2001 +/- Akhil STEREOTACTIC CORE BIOPSY 07/09/2009 LEFT BREAST FAMILY HISTORY Problem Relation Age of Onset Hypertension Mother Diabetes Mother Systemic Lupus Erythematosus Mother Alcohol/Drug Father (cardiac issues from this) Diabetes Father Allergies Father Cancer Father Esophageal Coronary Artery Disease Maternal Grandmother Emphysema Paternal Grandfather Asthma Son Diabetes Sister Diabetes Brother Cancer Other All through my father's family. Social History Tobacco Use Smoking status: Every Day Packs/day: 1.00 Years: 15.00 Pack years: 15.00 Types: Cigarettes Start date: 01/20/1991 Smokeless tobacco: Never Tobacco comments: Father smoked in childhood home, currently lives with a smoker who is willing to quit with patient. Vaping Use Vaping Use: Never used Substance Use Topics Alcohol use: No Drug use: Yes Types: Marijuana Comment: Smokes 2-3 times a week PRIOR TO ADMISSION MEDICATIONS: venlafaxine ER (EFFEXOR XR) 150 mg 24 hr capsule, Take 1 capsule by mouth once daily., Disp: 30 capsule, Rfl: 5, 11/23/2022 busPIRone (BUSPAR) 15 mg tablet, Take 1 tablet by mouth three times daily., Disp: 90 tablet, Rfl: 2, 11/23/[address] (PROTONIX) 40 mg tablet, TAKE 1 TABLET BY MOUTH ON AN EMPTY STOMACH 1/2 HOUR BEFORE A MEAL TWICE DAILY, Disp: 180 tablet, Rfl: 3, 11/23/2022 atorvastatin (LIPITOR) 40 mg tablet, Take 1 tablet by mouth once daily., Disp: 30 tablet, Rfl: 6, 11/23/2022 at 0900 gabapentin (NEURONTIN) 400 mg capsule, Take 1 capsule by mouth three times daily for 180 days., Disp: 270 capsule, Rfl: 1, Past Week aspirin, enteric coated (more content not included)... Normal [facility] CONSULT PROGon 11-25-2022 CONSULT PROG HNO ID: [id number] Author: Conchis Thomas DO Service: Hospital Medicine Author Type: Physician Type: Consult Progress Note Filed: 11/25/2022 10:33 AM Note Text: DEPARTMENT OF HOSPITAL MEDICINE CONSULT PROGRESS NOTE SERVICE DATE: 11/25/2022 SERVICE TIME: 10:16 AM Primary Care Physician: Martinez Garcia MD NIGHT AND WEEKEND COVERAGE: [facility]: Days: [phone], please page attending physician. Nights: [phone], please page [place] [facility] Night coverage pager [phone]. Subjective INTERVAL HPI: Patient states she had left carpal tunnel release for Left carpal tunnel syndrome on 11/10/[address] Angel Luis Hernández. Sutures were removed on 11/22/22 in office with wound well healed without signs of infection. Patient was admitted on 11/24/22 for post op infection of left hand. Denies any chest pain, shortness of breath, fever, chills, nausea, vomiting, abdominal pain or diarrhea. Denies any dizziness or lightheadedness. Denies any numbness, tingling, headache or blurry vision. Denies any dysuria or urinary frequency. Is the Patient Experiencing Pain: Yes post op pain MEDICATIONS: Reviewed Current Facility-Administered Medications Medication Dose Route Frequency busPIRone (BUSPAR) tab(s) 15 mg 15 mg ORAL TID gabapentin 400 mg cap(s) (NEURONTIN) 400 mg ORAL TID atorvastatin 40 mg tab(s) (LIPITOR) 40 mg ORAL DAILY aspirin, enteric coated 81 mg tab(s) 81 mg ORAL DAILY pantoprazole DR 20 mg tab(s) (PROTONIX) 20 mg ORAL DAILY (6 AM) venlafaxine 75 mg tab(s) (EFFEXOR) 75 mg ORAL BID aluminum-magnesium hydroxide-simethicone 200-200-20 mg/5 mL 30 mL (MAALOX,MYLANTA,MAG-A L PLUS) 30 mL ORAL q 6 H PRN NaCl 0.9% iv flush bag 20 mL INTRAVENOUS PRN NaCl 0.45% iv infusion 5-30 mL/hr INTRAVENOUS CONTINUOUS docusate sodium 100 mg cap(s) (COLACE) 100 mg ORAL BID PRN oxyCODONE-acetaminoph en 5-325 mg 1-2 tablet (PERCOCET) 1-2 tablet ORAL q 4 H PRN acetaminophen 650 mg tab(s) (TYLENOL) 650 mg ORAL q 6 H PRN ipratropium-albuterol 3 mL nebulizer solution (DUONEB) 3 mL INHALATION QID PRN cetirizine 10 mg tab(s) (ZyrTEC) 10 mg ORAL DAILY HYDROmorphone 0.2 mg injection (DILAUDID) 0.2 mg INTRAVENOUS q 6 H PRN hydrALAZINE 12.5 mg tab(s) (APRESOLINE) 12.5 mg ORAL q 8 H PRN vancomycin dosing and monitoring per pharmacy OTHER As Directed ceFAZolin iv piggyback 1 g in D5W (iso-osmotic) 50 mL (ANCEF) 1 g INTRAVENOUS q 8 HR vancomycin iv piggyback 1 g in D5W 200 mL (VANCOCIN) 1 g INTRAVENOUS q 12 HR Objective PHYSICAL EXAM: BP 136/79 Pulse 82 Temp (Src) 98.1 (Oral) Resp 16 Ht 5' 3 (1.60m) Wt 147 lb 7.8 oz (66.9kg) SpO2 100% LMP 11/07/2021 BMI 26.13 kg/(m2). O2 Therapy: Room Air Physical Exam Performed: GENERAL: Alert, no distress, cooperative SKIN: Skin color, texture, turgor normal. No rashes or lesions. LUNGS: Lungs clear to auscultation, Good diaphragmatic excursion CARDIAC: Normal S1 and S2; no rubs, murmurs, or gallops ABDOMEN: Abdomen soft, non-tender, BS normal, No masses or organomegaly EXTREMITIES: 5/5 strength in bilateral lower extremities, dressing intact in left UE PULSES: 2+ posterial tibial, 2+ dorsalis pedis Lines, Drains, and Airways Line Duration Peripheral 11/24/22 1452 Right Wrist 20 Gauge <1 day DATA: Diagnostic tests reviewed for today's visit: Most recent labs Impression/Recommenda tions This is a 47 year old female with a pmhx significatn for GERD, PUD, anxiety, CAD, HLD, HTN, COPD and tobacco use who presents for a Left hand abscess s/p IANDD with orthopedics hospital medicine is consulted for Hospital medicine is being consulted for HTN, COPD, Post-Op Wound infection Patient states she had left carpal tunnel release for Left carpal tunnel syndrome on 11/10/[address] Angel Luis Hernández. Sutures were removed on 11/22/22 in office with wound well healed without signs of infection. Patient was admitted on 11/24/22 for post op infection of left hand. Denies any chest pain, shortness of breath, fever, chills, nausea, vomiting, abdominal pain or diarrhea. Denies any dizziness or lightheadedness. Denies any numbness, tingling, headache or blurry vision. Denies any dysuria or urinary frequency. Principal Problem: Abscess of left hand POA: Yes -s/p Left hand, I and D on 11/24/22 -pain control and VTE ppx per primary team -continue iv Cefazolin and iv Vancomycin -follow up with wound cx -ID has been consulted Leukocytosis POA: Yes -due to abscess of left hand and reactive post op -monitor closely Active Problems: GERD (gastroesophageal reflux disease) POA: Yes PUD (peptic ulcer disease) POA: Yes -continue Protonix CAD (coronary artery disease) POA: Yes -denies any chest pain or shortness of breath -continue Aspirin, Lipitor Hyperlipidemia POA: Yes -continue Aspirin, Lipitor Hypertension POA: Yes -patient denies any history of HTN and not on any medications -patient states her BP is being takes from lower extrem (more content not included)... [facility] CONSULT PROG HNO ID: [id number] Author: Kimberly Montaño [facility] Service: Pharmacy Author Type: Pharmacist Type: Consult Progress Note Filed: 11/25/2022 1:03 AM Note Text: PHARMACY VANCOMYCIN DOSING NOTE Patient Name: Bev Webb Admission Date: 11/24/2022 Date of Consult: 11/25/2022 Time of Consult: 1:00 AM Indication: Skin/Soft tissue infection Goal Range: 10-20 mcg/mL RECOMMENDATIONS/PLAN: Pharmacy consulted for vancomycin dosing for Bev Webb, a 47 year old, female who is being treated with vancomycin. 1. Patient is currently ordered Vancomycin 1 g IV q12h. Today is day 1 of therapy. 2. No vancomycin level has been drawn for this dosing regimen. 3. The present dose of vancomycin is the recommended dosage for this patient at this time. Continue therapy as prescribed. 4. The next vancomycin level will be ordered for 0100 on 11/27/22 unless clinically indicated sooner. (Pharmacy will order) We will follow patient renal function, vancomycin levels and doses with you during the course of therapy. Additional recommendations will appear in follow up notes. If you have any questions, please contact pharmacy at [phone]. Age: [age] year old Allergies: ALLERGIES Allergen Reactions Doxycycline Entex [Phenylephrin* Erythromycin Shortness of Breath Can take zpak Flexeril [Cyclobenz* Cough denies Omnicef [Cefdinir] GI Upset Penicillin G Intolerance unknown reaction during childhood Risperdal [Risperid* Swelling Ultram [Tramadol Hc* Swelling Valtrex [Valacyclov* Rash Last 3 Encounter Wt Readings: Date: Wt: 11/24/2022 66.9 kg (147 lb 7.8 oz) 11/03/2022 64 kg (141 lb) 10/28/2022 64 kg (141 lb) Last 1 Encounter Ht Readings: Date: Ht: 11/24/2022 160 cm (5' 3) CrCl: 73.57 mL/min per last Scr on 10/12/22 Temp (24hrs), Av.8 ?C (98.3 ?F), Min:36.5 ?C (97.7 ?F), Max:37.1 ?C (98.8 ?F) - Current Temp: 36.9 ?C (98.4 ?F) Labs BUN (mg/dL) Date Value 10/12/2022 10 03/03/2022 10 01/27/2022 7 Creatinine (mg/dL) Date Value 10/12/2022 1.00 (H) 03/03/2022 0.85 01/27/2022 0.86 WBC (k/uL) Date Value 10/12/2022 14.02 (H) 03/03/2022 9.15 01/27/2022 9.52 Vancomycin Levels: No results found for: KELLY Montaño [facility] Normal [facility] Comprehensive metabolic 2000 panelon 11-25-2022 Albumin [Mass/Vol] 3.6 g/dL Low 3.9-4.9 [facility] Comment on above: Order Comment: Speci men Type: BLOOD SPECIMEN Ordering Facility: [facility] Address: [address] [place] [address] Performed By: #### 2 4323-8 #### [facility] CLIA [id number] [address] ALP [Catalytic activity/Vol] 97 U/L Normal 34-123 [facility] Comment on above: Order Comment: Speci men Type: BLOOD SPECIMEN Ordering Facility: [facility] Address: [address] [place] [address] Performed By: #### 2 4323-8 #### [facility] CLIA [id number] [address] ALT [Catalytic activity/Vol] 6 U/L Low 7-38 [facility] Comment on above: Order Comment: Speci men Type: BLOOD SPECIMEN Ordering Facility: [facility] Address: [address] [place] [address] Performed By: #### 2 4323-8 #### [facility] CLIA [id number] [address] [place] [address] [place] Anion gap [Moles/Vol] 9 mmol/L Normal 9-18 [facility] Comment on above: Order Comment: Speci men Type: BLOOD SPECIMEN Ordering Facility: [facility] Address: [address] [address] Performed By: #### 2 4323-8 #### [facility] CLIA [id number] [address] [place] [address] [place] AST [Catalytic activity/Vol] 14 U/L Normal 13-35 [facility] Comment on above: Order Comment: Speci men Type: BLOOD SPECIMEN Ordering Facility: [facility] Address: [address] [address] Performed By: #### 2 4323-8 #### [facility] CLIA [id number] [address] [place] Bilirubin [Mass/Vol] 0.2 mg/dL Normal 0.2-1.3 [facility] Comment on above: Order Comment: Speci men Type: BLOOD SPECIMEN Ordering Facility: [facility] Address: [address] [place] [address] Performed By: #### 2 4323-8 #### [facility] CLIA [id number] [address] OF [facility] Calcium [Mass/Vol] 8.9 mg/dL Normal 8.5-10.2 [facility] Comment on above: Order Comment: Speci men Type: BLOOD SPECIMEN Ordering Facility: [facility] Address: [address] [address] Performed By: #### 2 4323-8 #### [facility] CLIA [id number] [address] [place] Chloride [Moles/Vol] 101 mmol/L Normal 97-105 [facility] Comment on above: Order Comment: Speci men Type: BLOOD SPECIMEN Ordering Facility: [facility] Address: [address] [address] Performed By: #### 2 4323-8 #### [facility] CLIA [id number] [address] [place] CO2 [Moles/Vol] 24 mmol/L Normal 22-30 [facility] Comment on above: Order Comment: Speci men Type: BLOOD SPECIMEN Ordering Facility: [facility] Address: [address] [place] [address] Performed By: #### 2 4323-8 #### [facility] CLIA [id number] [address] Creatinine [Mass/Vol] 0.62 mg/dL Normal 0.58-0.96 [facility] Comment on above: Order Comment: Samson men Type: BLOOD SPECIMEN Ordering Facility: [facility] Address: [address] [place] [address] Performed By: #### 2 4323-8 #### [facility] CLIA [id number] [address] ESTIMATED GLOMERULAR FILTRATION RATE 111 mL/min/1.73m??? Normal >=60 [facility] Comment on above: Order Comment: Speci men Type: BLOOD SPECIMEN Ordering Facility: [facility] Address: [address] [place] [address] Result Comment: Betty mated Glomerular Filtration Rate (eGFR) is calculated using the 2020 CKD-EPI creatinine equation. This equation utilizes serum creatinine, sex, and age as parameters. The creatinine assay has traceable calibration to isotope dilution-mass spectrometry. Refer to KDIGO guidelines for clinical interpretation. In patients with unstable renal function, e.g. those with acute kidney injury, the eGFR may not accurately reflect actual GFR. Performed By: #### 2 4323-8 #### [facility] CLIA [id number] [address] [place] Glucose [Mass/Vol] 138 mg/dL High 74-99 [facility] Comment on above: Order Comment: Samson morrow Type: BLOOD SPECIMEN Ordering Facility: [facility] Address: [address] [place] [address] Result Comment: The [place] [employer] (ADA) provides guidance for cutoff values for fasting glucose and random glucose. The ADA defines fasting as no caloric intake for at least 8 hours. Fasting plasma glucose results between 100 to 125 mg/dL indicate increased risk for diabetes (prediabetes). Fasting plasma glucose results greater than or equal to 126 mg/dL meet the criteria for diagnosis of diabetes. In the absence of unequivocal hyperglycemia, results should be confirmed by repeat testing. In a patient with classic symptoms of hyperglycemia or hyperglycemic crisis, random plasma glucose results greater than or equal to 200 mg/dL meet the criteria for diagnosis of diabetes. Reference: Standards of Medical Care in Diabetes 2016, [place] [employer]. Diabetes Care. 2016.39(Suppl 1). Performed By: #### 2 4323-8 #### [facility] CLIA [id number] [address] [place] Potassium [Moles/Vol] 4.2 mmol/L Normal 3.7-5.1 [facility] Comment on above: Order Comment: Samson morrow Type: BLOOD SPECIMEN Ordering Facility: [facility] Address: [address] [place] [address] Performed By: #### 2 4323-8 #### [facility] CLIA [id number] [address] [place] Protein [Mass/Vol] 6.4 g/dL Normal 6.3-8.0 [facility] Comment on above: Order Comment: Tarani cristhian Type: BLOOD SPECIMEN Ordering Facility: [facility] Address: [address] [place] [address] Performed By: #### 2 4323-8 #### [facility] CLIA [id number] [address] [place] [address] [place] Sodium [Moles/Vol] 134 mmol/L Low 136-144 [facility] Comment on above: Order Comment: Tarani men Type: BLOOD SPECIMEN Ordering Facility: [facility] Address: [address] [address] Performed By: #### 2 4323-8 #### [facility] CLIA [id number] [address] [place] Urea nitrogen [Mass/Vol] 7 mg/dL Normal 7-21 [facility] Comment on above: Order Comment: Speci men Type: BLOOD SPECIMEN Ordering Facility: [facility] Address: [address] [place] [address] Performed By: #### 2 4323-8 #### [facility] LABORATORY CLIA [id number] [address] [place] Magnesium SerPl-mCncon 11-25 Magnesium [Mass/Vol] 1.8 mg/dL Normal 1.7-2.3 [facility] Comment on above: Order Comment: Speci men Type: BLOOD SPECIMEN Ordering Facility: [facility] Address: [address] [place] [address] Performed By: #### 2 4323-8 #### [facility] CLIA [id number] [address] NURSING PROGon 11-25-2022 NURSING PROG HNO ID: [id number] Author: Nava Jean RN Service: Nursing Author Type: Registered Nurse Type: Nursing Progress Note Filed: 11/25/2022 2:43 AM Note Text: 2024: Received pt from PACU via bed. Pt denies pain at this time. Up to BR with steady gait. Back to bed without incident. Pt oriented to room and call craig. Call craig in reach. Family at bedside. [facility] SARS-CoV-2 RNA Resp Ql ARNOLDO+p robeon 11-25-2022 SARS-CoV-2 (COVID-19) RNA ARNOLDO+probe Ql (Resp) COVID 19 RESULT: SARS-CoV-2 (Agent of COVID-19) Not Detected by RT-PCR or equivalent method. This test has been authorized by FDA under an Emergency Use Authorization (EUA). Normal [facility] Comment on above: Performed By: #### 9 4500-6 ####[place] [facility] [id number] [address] [place] ANES POSTPROC EVALon 023 ANES POSTPROC EVAL HNO ID: [id number] Author: Kevyn Ivory MD Service: ? Author Type: Anesthesiologist Type: Anesthesia Postprocedure Evaluation Filed: 11/24/2022 7:39 PM Note Text: POST ANESTHESIA EVALUATION NOTE : 1975 Procedure Summary Date: 11/24/22 Room / Location: [place] OR02 / [place] Anesthesia Start: 1819 Anesthesia Stop: 1906 Procedure: INCISION AND DRAINAGE ABSCESS UPPER EXTREMITY, COMPLICATED OR MULTIPLE (Left: Hand) Diagnosis: Surgical site infection (Surgical site infection [T81.49XA]) Surgeons: Angel Luis Hernández MD Responsible Provider: Kevyn Ivory MD Anesthesia Type: MAC ASA Status: 3 - Emergent Anesthesia Type: MAC Last Vitals Vitals Value Taken Time BP 148/70 11/24/221929 Temp 36.7 ?C (98.1 ?F) 11/24/221904 Pulse 63 11/24/221936 Resp 17 11/24/221936 SpO2 99 % 11/24/221936 Vitals shown include unvalidated device data. Post Anesthesia Patient Status Patient Evaluation: bedside. Anticipated Disposition: phase 2 then home. Neurological Status: aware and responsive. Pulmonary Status: breathing comfortably on room air Airway Control: returned to baseline unsupported. Cardiovascular Status: stable. Pain Management: clinically adequate Postoperative Hydration: acceptable. Intraoperative Events: no significant anesthesia events Post Operative Nausea/Vomiting Status: no significant post operative nausea or vomiting Recommendation: continue current plan of care. Anesthesia Observations No Documentation SIGNATURE: Kevyn Ivory MD PATIENT NAME: Bev Gerardo Call DATE: November 24, 2022 TIME: 7:38 PM CSN: [id number] [facility] ANES PRE-OPon 11-24-2022 ANES PRE-OP HNO ID: [id number] Author: Janes Dutta MD Service: Anesthesiology Author Type: Anesthesiologist Type: Anesthesia Preprocedure Evaluation Filed: 11/24/2022 3:23 PM Note Text: ANESTHESIOLOGY DAY OF SURGERY NOTE : 1975 Procedure Information Date/Time: 11/24/22 1555 Procedure: INCISION AND DRAINAGE ABSCESS UPPER EXTREMITY, COMPLICATED OR MULTIPLE (Left: Hand) Location: [place] OR02 / [place] Surgeons: Angel Luis Hernández MD Estimated body mass index is 24.98 kg/m? as calculated from the following: Height as of 11/10/22: 160 cm (5' 3). Weight as of 11/10/22: 64 kg (141 lb). Most recent hematocrit and potassium results: Hematocrit 34.8 10/12/2022 Potassium 4.4 10/12/2022 Relevant Problems CARDIO (+) CAD (coronary artery disease) (+) Hypertension GI (+) GERD (gastroesophageal reflux disease) (+) PUD (peptic ulcer disease) PULMONARY (+) Centrilobular emphysema (HCC) (+) Mild intermittent asthma with acute exacerbation I - PHYSICAL EVALUATION AIRWAY Patient intubated: No. Tracheostomy tube not present Mallampati: I. TM distance: >3 FB. Neck ROM: full ROM without neurological symptoms. Mouth opening: adequate. Short neck: no. Thick neck: no Rodarte present: no DENTAL Dental findings: edentulous. Additional exam findings: no II - ANESTHESIA PLAN ASA Score: 3; emergent. Anesthetic Plan: MAC The patient is not a current smoker. NPO Status: adequate Beta Nette Monitoring Plan Monitoring plan: standard ASA. Post Procedure Analgesic Plan Postoperative analgesic plan: parenteral or oral opioids and multimodal analgesia. Informed Consent Anesthetic risks, benefits, alternatives, personnel and consent discussed: yes. Patient / Responsible Democrat agrees to proceed: yes Patient / Surrogate agrees to blood products: blood products not planned DNR status not reviewed with patient and/or family prior to surgery. Significant changes in the patient condition since the History and Physical, not otherwise documented in primary service progress note: no. Potential Anesthesia issues that may suggest increased risk of complications or contraindication to planned procedure: none. Vitals Value Taken Time BP 124/80 11/24/22 1449 Pulse Resp 16 11/24/22 1449 Temp 36.7 ?C (98.1 ?F) 11/24/22 1449 SpO2 100 % 11/24/22 1449 No current facility-administered medications on file as of 11/24/2022. Outpatient Medications as of 11/24/2022 Medication Sig - venlafaxine ER (EFFEXOR XR) 150 mg 24 hr capsule Take 1 capsule by mouth once daily. - busPIRone (BUSPAR) 15 mg tablet Take 1 tablet by mouth three times daily. - pantoprazole DR (PROTONIX) 40 mg tablet TAKE 1 TABLET BY MOUTH ON AN EMPTY STOMACH 1/2 HOUR BEFORE A MEAL TWICE DAILY - atorvastatin (LIPITOR) 40 mg tablet Take 1 tablet by mouth once daily. - gabapentin (NEURONTIN) 400 mg capsule Take 1 capsule by mouth three times daily for 180 days. - aspirin, enteric coated (ASPIRIN, ENTERIC COATED) 81 mg EC tablet TAKE 1 TABLET BY MOUTH EVERY DAY - COMBIVENT RESPIMAT 20-100 mcg/actuation inhaler INHALE 1 PUFF INSTRUCTED FOUR TIMES DAILY NEEDED. - cetirizine hcl(ZYRTEC 10 MG TAB) Take one(1) tablet daily. - albuterol HFA (VENTOLIN HFA) 90 mcg/actuation inhaler Inhale 2 Puffs as instructed every 4 hours as needed for wheezing/shortness of breath. - nitroglycerin sublingual (NITROQUICK) 0.4 mg SL tablet Dissolve 1 tablet under the tongue every 5 minutes as needed for Chest Pain. I have interviewed and examined the patient. I have reviewed the medical record and/or the pre-anesthesia evaluation, pertinent labs, and test results. This contains updated information obtained within 48 hours of Surgery/Procedure. SIGNATURE: Janes Dutta MD PATIENT NAME: Bev Gerardo Call DATE: November 24, 2022 TIME: 3:09 PM CSN: [id number] [facility] Absolute lymphocyte countOrd ered By: Dr. Tomas on 11-24-2022 Lymphocytes Auto (Unsp spec) [#/Vol] 4.56 10*3/uL 0.83-4.51 [facility] BRIEF OP NOTon 11-24-2022 BRIEF OP NOT HNO ID: [id number] Author: Angel Luis Hernández MD Service: Orthopaedic Surgery Author Type: Physician Type: Brief Op Note Filed: 11/24/2022 7:14 PM Note Text: BRIEF OPERATIVE / PROCEDURE NOTE LOG ID: [id number] SURGERY/PROCEDURE DATE: 11/24/2022 INCISION/PROCEDURE START TIME: 6:37 PM INCISION CLOSE/PROCEDURE END TIME: 6:57 PM SURGEON(S)/PROCEDURAL IST(S) AND SAMPLE TAKER OPERATOR(S): Surgeon(s) and Role: * Angel Luis Hernández MD - Primary Physician Study Lead: Marcie Rosenbaum PA-C SURGERY/PROCEDURE(S): Left hand, I and D. ANESTHESIA: Monitored Anesthesia Care FINDINGS: post op infection ESTIMATED BLOOD LOSS: 0 ml SPECIMENS: cultures sent COMPLICATIONS: None DRAINS: packing PRE-OP/PRE-PROCEDURE DIAGNOSIS: Left hand infection. POST-OP/POST-PROCEDUR E DIAGNOSIS: Same as Preop SIGNATURE: Angel Luis Hernández MD PATIENT NAME: Bev Gerardo Call DATE: November 24, 2022 TIME: 7:13 PM Normal [facility] Bacteria Spec Anaerobe Culto n 11-24-2022 Bacteria identified Anaer cx Nom (Unsp spec) Negative [facility] Comment on above: Performed By: #### 6 35-3, 6462-6, 57228-2 ####[facility] LABCLIA [id number] [address] STATES OF [facility] Bacteria Wnd Culton 11-24-19 23 Bacteria identified Cx Nom (Wound) ORGANISM ID: 1 Moderate Methicillin resistant Staphylococcus aureus GRAM STAIN: No organisms seen Rare Polymorphonuclear leukocytes ORGANISM ID: 1 (METHICILLIN RESISTANT STAPHYLOCOCCUS AUREUS) ------ ANTIBIOTIC INTERPRETATION MIRIAN STATUS REFERENCE RANGE ------ Oxacillin R >=4 F Susceptible <=2 , Resistant >2 Oxacillin resistant Staphylococci are resistant to all beta-lactam antibiotics (except new cephalosporins with anti-MRSA activity i.e. ceftaroline) Gentamicin S <=0.5 F Susceptible <=4 , Intermediate >4 , Resistant >8 Erythromycin S <=0.25 F Susceptible <=0.5 , Intermediate >.5 , Resistant >4 Clindamycin S 0.25 F Susceptible <=0.5 , Intermediate >.5 , Resistant >2 Trimeth sulfameth S <=10 F Susceptible <=40 , Resistant >40 Vancomycin S 1 F Susceptible <=2 , Intermediate >2 , Resistant >8 Daptomycin S 0.5 F Susceptible <=1 , Nonsusceptible >1 Linezolid S 2 F Susceptible <=4 , Resistant >4 Rifampin S <=0.5 F Susceptible <=1 , Intermediate >1 , Resistant >2 Rifampin should not be used alone for antimicrobial therapy. Levofloxacin R >=8 F Susceptible <=1 , Intermediate >1 , Resistant >2 Tetracycline S <=1 F Susceptible <=4 , Intermediate >4 , Resistant >8 Doxycycline S <=0.5 F Susceptible <=4 , Intermediate >4 , Resistant >8 Abnormal [facility] Comment on above: Performed By: #### 6 35-3, 6462-6, 54231-6 ####[facility] LABCLIA [id number] [place] [address] [place] Basophil percentageOrdered B y: Dr. Tomas on 11-24-2022 Basophils/100 WBC (Bld) 0.6 % 0-1 [facility] Chloride [Moles/Vol] 104 mmol/L 98-[address] [facility] Eosinophils/100 WBC (Bld) 2.1 % 0-5 [facility] Glucose [Mass/Vol] 98 mg/dL 74-106 [facility] Neutrophils (Bld) [#/Vol] 14.2 10*3/uL 2.0-7.7 [facility] Neutrophils/100 WBC (Bld) 65.6 % 47-70 [facility] Potassium [Moles/Vol] 3.0 mmol/L 3.5-5.1 [facility] Sodium [Moles/Vol] 138 mmol/L 136-145 [facility] WBC (Bld) [#/Vol] 21.7 10*3/uL 4.4-11.0 [facility] Blood erythrocytes count (nu mber/volume)Ordered By: Dr. Tomas on 11-24-2022 RBC (Bld) [#/Vol] 4.31 10*6/uL 4.2-5.4 [facility] Blood hemoglobin measurement (mass/volume)Ordered By: Dr. Tomas on 11-24-2022 Hemoglobin (Bld) [Mass/Vol] 11.9 g/dL 12.0-15.0 [facility] Blood lymphocytes/100 leukoc ytesOrdered By: Dr. Tomas on 11-24-2022 Lymphocytes/100 WBC (Bld) 21.0 % 19-41 [facility] Blood manual differential co mment interpretation (narrative result)Ordered By: Dr. Tomas on 11-24-2022 Manual differential comment Corey (Bld) [Interp] SCANNED [facility] Blood monocytes/100 leukocyt esOrdered By: Dr[address] Tomas on 11-24-2022 Monocytes/100 WBC (Bld) 10.3 % 0-10 [facility] Blood platelet mean volumeOr dered By: Dr. Tomas on 11-24-2022 Platelet mean volume (Bld) [Entitic vol] 9.6 fL 6.2-12.0 [facility] Determination of erythrocyte mean corpuscular volume (MCV)Ordered By: Dr. Tomas on 11-24-2022 MCV (RBC) [Entitic vol] 87.2 fL 81-99 [facility] Hematocrit Auto (Bld) [Volum e fraction]Ordered By: Dr. Tomas on 11-24-2022 Hematocrit (Bld) [Volume fraction] 37.6 % 37-47 [facility] Laboratory - Chemistry and C hemistry - challengeOrdered By: Dr. Tomas on 11-24-2022 CO2 [Moles/Vol] 27.0 mmol/L 21.0-32.0 [facility] Urea nitrogen/Creatinine [Mass ratio] 18.7 mg/mg 10-20 [facility] - Hematology and Cell countsOrdered By: Dr. Tomas on 11-24-2022 Erythrocyte distribution width (RBC) [Entitic vol] 55.2 fL 35.1-43.9 [facility] Erythrocyte distribution width (RBC) [Ratio] 17.2 % 11.6-14.6 [facility] Immature granulocytes/100 WBC (Bld) 0.400 % 0.0-0.9 [facility] Comment on above: IG% - Immature Granu locytes (promyelocytes, myelocytes and metamyelocytes) > 1% indicates that a LEFT SHIFT is Present. MCH (RBC) [Entitic mass] 27.6 pg 27.0-32.0 [facility] Nucleated RBC/100 WBC (Bld) [Ratio] 0 % 0-5 [facility] Auto (RBC) [Mass/Vol]Or dered By: Dr. Tomas on 11-24-2022 MCHC (RBC) [Mass/Vol] 31.6 g/dL 32-36 [facility] Microorganism Spec Culton Microorganism identified Cx Nom (Unsp spec) CULTURE, FUNGAL: No Fungus isolated after 28 days FUNGAL SMEAR: No fungus seen Normal [facility] Comment on above: Performed By: #### 6 35-3, 6462-6, 90766-9 ####[facility] LABCLIA [id number] [address] [place] No Panel InformationOrdered By: Dr. Tomas on 11-24-2022 Estimated GFR (MDRD) Amer 107 mL/min >60 [facility] Estimated GFR (MDRD) Non-Af Amer 88 mL/min >60 [facility] OPERATIVE NOon 11-24-2022 OPERATIVE NO HNO ID: [id number] Author: Angel Luis Hernández MD Service: Orthopaedic Surgery Author Type: Physician Type: Operative Report Filed: 11/29/2022 8:09 AM Note Text: OPERATIVE/PROCEDURE REPORT LOG ID: [id number] SURGERY/PROCEDURE DATE: 11/24/2022 INCISION/PROCEDURE START TIME: 6:37 PM INCISION CLOSE/PROCEDURE END TIME: 6:57 PM SURGEON(S)/PROCEDURAL IST(S) AND SAMPLE TAKER OPERATOR(S): Surgeon(s) and Role: * Angel Luis Hernández MD - Primary Physician Study Lead: Marcie Rosenbuam PA-C SURGERY/PROCEDURE(S): Incision and drainage/irrigation, left hand; surgical wound. modifier 78 This is a patient who had carpal tunnel release about 2 weeks ago. She was seen on Tuesday in the office for sutures out and she was doing quite well without any concerns whatsoever. The wound and healing nicely with improvement in her hand from preoperative symptoms. She would clinic planning on getting back to work in her sutures were taken off on Tuesday. She then presented to an outside emergency room with pain and swelling and redness and drainage in the early hours of the morning. I was able to touch base with the ER and she had been provided IV antibiotics at that time. Plan was to get her up to [place] for operative washout. I discussed with her the risks, benefits, alternatives and potential complications involving both operative and nonoperative treatment. Clearly would be taken cultures from the OR. She was clearly identified in the preoperative area marked accordingly on the left hand by myself. She was taken the operative suite and placed in a supine position with an armboard. She had perioperative antibiotics previously. Anesthesia assumed care of the head neck for remainder the case and began a MAC anesthetic. Some local anesthetic was provided 1% lidocaine plain and quarter percent Marcaine plain for total of 10 cc. And a timeout was conducted and all in the room were in agreement, signed consent forms on the chart. Incision was slightly extended in both directions. I bluntly dissected down and there was some purulence which was swabbed and sent. Fibrinous tissue was identified and this was excisionally removed. Copious amount of irrigation and suction and soft tissue rongeur for local debridement. Once this was completed, iodoform packing was placed. The wound was left open. Sterile 4 x 4's cotton padding and a Warner wrap for final bandage. There are no complications during the procedure. ANESTHESIA: Monitored Anesthesia Care PRE-OP/PRE-PROCEDURE DIAGNOSIS: Left hand, postop infection POST-OP/POST-PROCEDUR E DIAGNOSIS: Same as Preop ESTIMATED BLOOD LOSS: 10 mls SPECIMENS: Culture sent IMPLANTABLE DEVICES: NONE DRAINS: Packing placed COMPLICATIONS: None CLOSURE TECHNIQUE: Non-primary PARTICIPATION IN SURGERY/PROCEDURE: I/primary surgeon/proceduralist performed the entire procedure. SIGNATURE: Angel Luis Hernández MD PATIENT NAME: Bev Gerardo Call DATE: November 29, 2022 TIME: 7:59 AM Normal [facility] Platelets bldOrdered By: Dr. Tomas on 11-24-2022 Platelets (Bld) [#/Vol] 624 10*3/uL 150-450 [facility] Review by pathologistOrdered By: Dr. Tomas on 11-24-2022 Pathologist review Corey (Unsp spec) [Interp] March [facility] Serum or plasma calcium cornelio urement (mass/volume)Ordered By: Dr. Tomas on 11-24-2022 Calcium [Mass/Vol] 9.6 mg/dL 8.5-10.1 [facility] Serum or plasma creatinine m easurement (mass/volume)Ordered By: Dr. Tomas on 11-24-2022 Creatinine [Mass/Vol] 0.75 mg/dL 0.55-1.02 [facility] Comment on above: The validity of the calculated GFR & GFRAA in patients over 70 years has not been determined. Clinical correlation is essential. Serum or plasma urea nitroge n measurement (mass/volume)Ordered By: Dr. Tomas on 11-24-2022 Urea nitrogen [Mass/Vol] 14 mg/dL -18 [facility] Thin prep Papanicolaou smear with manual screeningOrdered By: Dr. Tomas on 11-24-2022 Thin prep Papanicolaou smear with manual screening 7 5-15 [facility] ANES POSTPROC EVALon 023 ANES POSTPROC EVAL HNO ID: [id number] Author: Janes Dutta MD Service: Anesthesiology Author Type: Anesthesiologist Type: Anesthesia Postprocedure Evaluation Filed: 11/10/2022 3:53 PM Note Text: POST ANESTHESIA EVALUATION NOTE : 1975 Procedure Summary Date: 11/10/22 Room / Location: [place] OR / [place] OR Anesthesia Start: 1503 Anesthesia Stop: 1541 Procedure: DECOMPRESSION NERVE MEDIAN CARPAL TUNNEL (Left: Wrist) Diagnosis: Carpal tunnel syndrome on left (Carpal tunnel syndrome on left [G56.02]) Surgeons: Angel Luis Hernández MD Responsible Provider: Janes Dutta MD Anesthesia Type: MAC ASA Status: 3 Anesthesia Type: MAC Last Vitals Vitals Value Taken Time BP 142/69 11/10/22 1545 Temp 36.7 ?C (98.1 ?F) 11/10/22 1545 Pulse 78 11/10/22 1551 Resp 33 11/10/22 1551 SpO2 97 % 11/10/22 1551 Vitals shown include unvalidated device data. Post Anesthesia Patient Status Patient Evaluation: bedside. Anticipated Disposition: phase 2 then home. Neurological Status: aware and responsive. Pulmonary Status: breathing comfortably on room air Airway Control: returned to baseline unsupported. Cardiovascular Status: stable. Pain Management: clinically adequate Postoperative Hydration: acceptable. Intraoperative Events: no significant anesthesia events Post Operative Nausea/Vomiting Status: no significant post operative nausea or vomiting Recommendation: continue current plan of care. Anesthesia Observations No Documentation SIGNATURE: Janes Dutta MD PATIENT NAME: Bev Gerardo Call DATE: November 10, 2022 TIME: 3:53 PM CSN: [id number] [facility] ANES PRE-OPon 11-10-2022 ANES PRE-OP HNO ID: [id number] Author: Janes Dutta MD Service: Anesthesiology Author Type: Anesthesiologist Type: Anesthesia Preprocedure Evaluation Filed: 11/10/2022 1:46 PM Note Text: ANESTHESIOLOGY DAY OF SURGERY NOTE : 1975 Procedure Information Date/Time: 11/10/22 1432 Procedure: DECOMPRESSION NERVE MEDIAN CARPAL TUNNEL (Left: Wrist) Location: [place] OR02 / [place] Surgeons: Angel Luis Hernández MD Estimated body mass index is 24.98 kg/m? as calculated from the following: Height as of this encounter: 160 cm (5' 3). Weight as of this encounter: 64 kg (141 lb). Most recent hematocrit and potassium results: Hematocrit 34.8 10/12/2022 Potassium 4.4 10/12/2022 Relevant Problems CARDIO (+) CAD (coronary artery disease) (+) Hypertension GI (+) GERD (gastroesophageal reflux disease) (+) PUD (peptic ulcer disease) PULMONARY (+) Centrilobular emphysema (HCC) (+) Mild intermittent asthma with acute exacerbation I - PHYSICAL EVALUATION AIRWAY Patient intubated: No. Tracheostomy tube not present Mallampati: I. TM distance: >3 FB. Neck ROM: full ROM without neurological symptoms. Mouth opening: adequate. Short neck: no. Thick neck: no Rodarte present: no DENTAL Dental findings: edentulous. Additional exam findings: no II - ANESTHESIA PLAN ASA Score: 3 Anesthetic Plan: MAC The patient is a current smoker. NPO Status: adequate Beta Nette Monitoring Plan Monitoring plan: standard ASA. Post Procedure Analgesic Plan Postoperative analgesic plan: parenteral or oral opioids and multimodal analgesia. Informed Consent Anesthetic risks, benefits, alternatives, personnel and consent discussed: yes. Patient / Responsible Democrat agrees to proceed: yes Patient / Surrogate agrees to blood products: blood products not planned DNR status not reviewed with patient and/or family prior to surgery. Significant changes in the patient condition since the History and Physical, not otherwise documented in primary service progress note: no. Potential Anesthesia issues that may suggest increased risk of complications or contraindication to planned procedure: none. Vitals Value Taken Time BP 161/97 11/10/22 1329 Pulse 79 11/10/22 1329 Resp 18 11/10/22 1329 Temp 36.3 ?C (97.3 ?F) 11/10/22 1329 SpO2 98 % 11/10/22 1329 Facility-Administered Medications as of 11/10/2022 Medication Dose Route Frequency - lidocaine (PF) 10 mg/mL (1 %) 1-2 mg injection (XYLOCAINE) 0.1-0.2 mL INTRADERMAL PRN - lactated ringers iv infusion 5-30 mL/hr INTRAVENOUS CONTINUOUS - NaCl 0.9% iv flush bag 20 mL INTRAVENOUS PRN - ceFAZolin iv piggyback 2 g in D5W (iso-osmotic) 100 mL (ANCEF) 2 g INTRAVENOUS Pre-Op Once Outpatient Medications as of 11/10/2022 Medication Sig - albuterol HFA (VENTOLIN HFA) 90 mcg/actuation inhaler Inhale 2 Puffs as instructed every 4 hours as needed for wheezing/shortness of breath. - venlafaxine ER (EFFEXOR XR) 150 mg 24 hr capsule Take 1 capsule by mouth once daily. - busPIRone (BUSPAR) 15 mg tablet Take 1 tablet by mouth three times daily. - pantoprazole DR (PROTONIX) 40 mg tablet TAKE 1 TABLET BY MOUTH ON AN EMPTY STOMACH 1/2 HOUR BEFORE A MEAL TWICE DAILY - atorvastatin (LIPITOR) 40 mg tablet Take 1 tablet by mouth once daily. - gabapentin (NEURONTIN) 400 mg capsule Take 1 capsule by mouth three times daily for 180 days. - aspirin, enteric coated (ASPIRIN, ENTERIC COATED) 81 mg EC tablet TAKE 1 TABLET BY MOUTH EVERY DAY - COMBIVENT RESPIMAT 20-100 mcg/actuation inhaler INHALE 1 PUFF INSTRUCTED FOUR TIMES DAILY NEEDED. - cetirizine hcl(ZYRTEC 10 MG TAB) Take one(1) tablet daily. - nitroglycerin sublingual (NITROQUICK) 0.4 mg SL tablet Dissolve 1 tablet under the tongue every 5 minutes as needed for Chest Pain. I have interviewed and examined the patient. I have reviewed the medical record and/or the pre-anesthesia evaluation, pertinent labs, and test results. This contains updated information obtained within 48 hours of Surgery/Procedure. SIGNATURE: Janes Dutta MD PATIENT NAME: Bev Gerardo Call DATE: November 10, 2022 TIME: 1:46 PM CSN: [id number] [facility] OPERATIVE NOon 11-10-2022 OPERATIVE NO HNO ID: [id number] Author: Angel Luis Hernández MD Service: Orthopaedic Surgery Author Type: Physician Type: Operative Report Filed: 11/10/2022 5:42 PM Note Text: OPERATIVE/PROCEDURE REPORT LOG ID: [id number] SURGERY/PROCEDURE DATE: 11/10/2022 INCISION/PROCEDURE START TIME: 3:16 PM INCISION CLOSE/PROCEDURE END TIME: 3:33 PM SURGEON(S)/PROCEDURAL IST(S) AND SAMPLE TAKER OPERATOR(S): Surgeon(s) and Role: * Angel Luis Hernández MD - Primary Physician Study Lead: Jamilah Santizo PA-C Registered Nurse Digital Marketing Project Manager: Caitlyn Renteria RN SURGERY/PROCEDURE(S): OPERATION: Left carpal tunnel release, open. ANESTHESIA: MAC with local. PREOPERATIVE DIAGNOSIS: Left carpal tunnel syndrome. POSTOPERATIVE DIAGNOSIS: Left carpal tunnel syndrome. OPERATIVE INDICATIONS: This is a pleasant 47 year old female who had worsening, numbness, and tingling. Her electrodiagnostic showed Mild carpal tunnel syndrome. She exhausted conservative management and in the office, we discussed the risks, benefits, alternatives, and potential complications involving carpal tunnel release and she wished to pursue surgical intervention. OPERATIVE FINDINGS: Consistent with postoperative diagnosis. OPERATIVE PROCEDURE: On November 10, 2022, the patient was clearly identified in the preoperative area and marked accordingly on the Left palm by myself. She was taken to the operative suite and placed in the supine position with an armboard on the Left. She received 2 g of Ancef in the IV within 1 hour of incision or tourniquet. Anesthesia assumed care of the head and neck for the remainder of the case and began a MAC anesthetic. All other bony landmarks were appropriately padded in standard fashion. The upper extremity had a well-padded upper brachium tourniquet applied with Webril padding and set at 250 mmHg, but not yet inflated. The arm was then sterilely prepped and draped in standard fashion. An appropriate time-out was conducted and all in the room were in agreement, signed consent form was on the chart. The upper extremity was exsanguinated with an Esmarch bandage and the tourniquet was applied at 250 mmHg. Local anesthetic was provided at the palm and wrist with 1% lidocaine plain and 0.25% Marcaine plain in a 1:1 ratio for total of 4 mL. A longitudinal incision was made with in line with the third web space from 1 cm distal of the wrist crease to Gates's cardinal line. I used Sydney Rakes to retract the soft tissues. Bipolar electrocautery was used for hemostasis. I bluntly dissected down with Littler scissors to distal edge of the transverse carpal ligament until a flash of fat was noted. I directly divided distal edge of the transverse carpal ligament with a #15 blade. Attention was then focused on the proximal portion and I used Littler scissors to bluntly dissect off the volar surface of the transverse carpal ligament. A carpal tunnel and median nerve protection guide was slid directly under the ligament for dilation and a second time for appropriate positioning, this was passed freely without any resistance. Subsequently, I selected a mini meniscotome Shinnecock blade and slid this in the protective guide, completely dividing the transverse carpal ligament. Sydney rakes were used to view up the wound to visualize for complete release and a [place] elevator was used to palpate for complete release. At this point, the tourniquet was taken down and hemostasis was observed. The wound was copiously irrigated with normal saline and I closed with 3-0 nylons in horizontal mattress fashion for a total of 3. Xeroform gauze, sterile 4 x 4 gauze, Webril padding, and a Bias roll was used for final bandage. There were no complications during the procedure. The patient was safely awoken and transferred to the Postanesthetic Care Unit in stable condition. ESTIMATED BLOOD LOSS: 0 ml SPECIMENS: None IMPLANTABLE DEVICES: NONE DRAINS: None COMPLICATIONS: None PARTICIPATION IN SURGERY/PROCEDURE: I/primary surgeon/proceduralist performed the entire procedure. SIGNATURE: Angel Luis Hernández MD PATIENT NAME: Bev Gerardo Call DATE: November 10, 2022 TIME: 5:38 PM [facility] Absolute lymphocyte countOrd ered By: Dr. Lu on 10-08-2022 Lymphocytes Auto (Unsp spec) [#/Vol] 2.39 10*3/uL 0.83-4.51 [facility] Basophil percentageOrdered B y: Dr. Lu on 10-08-2022 Basophils/100 WBC (Bld) 0.5 % 0-1 [facility] Chloride [Moles/Vol] 111 mmol/L 98-[address] [facility] Eosinophils/100 WBC (Bld) 2.0 % 0-5 [facility] Glucose [Mass/Vol] 112 mg/dL 74-106 [facility] Comment on above: Fasting Glucose resu lt from 100 to 125 mg/dL suggests IMPAIRED HOMEOSTASIS per A.D.A. criteria. Neutrophils (Bld) [#/Vol] 9.8 10*3/uL 2.0-7.7 [facility] Neutrophils/100 WBC (Bld) 72.8 % 47-70 [facility] Potassium [Moles/Vol] 2.8 mmol/L 3.5-5.1 [facility] Sodium [Moles/Vol] 141 mmol/L 136-145 [facility] WBC (Bld) [#/Vol] 13.5 10*3/uL 4.4-11.0 [facility] Blood erythrocytes count (nu mber/volume)Ordered By: Dr. Lu on 10-08-2022 RBC (Bld) [#/Vol] 4.01 10*6/uL 4.2-5.4 [facility] Blood hemoglobin measurement (mass/volume)Ordered By: Dr. Lu on 10-08-2022 Hemoglobin (Bld) [Mass/Vol] 10.8 g/dL 12.0-15.0 [facility] Blood lymphocytes/100 leukoc ytesOrdered By: Dr. Lu on 10-08-2022 Lymphocytes/100 WBC (Bld) 17.7 % 19-41 [facility] Blood monocytes/100 leukocyt esOrdered By: Dr. Lu on 10-08-2022 Monocytes/100 WBC (Bld) 6.3 % 0-10 [facility] Blood platelet mean volumeOr dered By: Dr. Lu on 10-08-2022 Platelet mean volume (Bld) [Entitic vol] 9.3 fL 6.2-12.0 [facility] Determination of erythrocyte mean corpuscular volume (MCV)Ordered By: Dr. Lu on 10-08-2022 MCV (RBC) [Entitic vol] 88.0 fL 81-99 [facility] Hematocrit Auto (Bld) [Volum e fraction]Ordered By: Dr. Lu on 10-08-2022 Hematocrit (Bld) [Volume fraction] 35.3 % 37-47 [facility] Laboratory - Chemistry and C hemistry - challengeOrdered By: Dr. Lu on 10-08-2022 CO2 [Moles/Vol] 26.0 mmol/L 21.0-32.0 [facility] Urea nitrogen/Creatinine [Mass ratio] 11.6 mg/mg 10-20 [facility] Laboratory - Hematology and Cell countsOrdered By: Dr. Lu on 10-08-2022 Erythrocyte distribution width (RBC) [Entitic vol] 55.8 fL 35.1-43.9 [facility] Erythrocyte distribution width (RBC) [Ratio] 17.4 % 11.6-14.6 [facility] Immature granulocytes/100 WBC (Bld) 0.700 % 0.0-0.9 [facility] Comment on above: IG% - Immature Granu locytes (promyelocytes, myelocytes and metamyelocytes) > 1% indicates that a LEFT SHIFT is Present. MCH (RBC) [Entitic mass] 26.9 pg 27.0-32.0 [facility] Nucleated RBC/100 WBC (Bld) [Ratio] 0 % 0-5 [facility] MCHC Auto (RBC) [Mass/Vol]Or dered By: Dr. Lu on 10-08-2022 MCHC (RBC) [Mass/Vol] 30.6 g/dL 32-36 [facility] No Panel InformationOrdered By: Dr. Lu on 10-08-2022 Estimated Creatinine Clearance Calc 72.20 ml/min [facility] Estimated GFR (MDRD) Amer 103 mL/min >60 [facility] Comment on above: GFR Calc Estimated GFR (MDRD) Non-Af Amer 85 mL/min >60 [facility] Comment on above: Non- GFR Calc Troponin I High Sensitivity 7 pg/mL 3.0-54.0 [facility] Comment on above: Please Note: [place] t Units and Gender Specific Reference Ranges. For more information see Policy Stat Procedure [place] High Sensitivity Troponin (TNIH) and attachments. Platelets bldOrdered By: Dr. Lu on 10-08-2022 Platelets (Bld) [#/Vol] 432 10*3/uL 150-450 [facility] Serum or plasma calcium cornelio urement (mass/volume)Ordered By: Dr. Lu on 10-08-2022 Calcium [Mass/Vol] 8.8 mg/dL 8.5-10.1 [facility] Serum or plasma creatinine m easurement (mass/volume)Ordered By: Dr. Lu on 10-08-2022 Creatinine [Mass/Vol] 0.77 mg/dL 0.55-1.02 [facility] Comment on above: The validity of the calculated GFR & GFRAA in patients over 70 years has not been determined. Clinical correlation is essential. Serum or plasma urea nitroge n measurement (mass/volume)Ordered By: Dr. Lu on 10-08-2022 Urea nitrogen [Mass/Vol] 9 mg/dL 7-18 [facility] Thin prep Papanicolaou smear with manual screeningOrdered By: Dr. Lu on 10-08-2022 Thin prep Papanicolaou smear with manual screening 4 5-15 [facility] Absolute lymphocyte counton 05-05-2022 Lymphocytes Auto (Unsp spec) [#/Vol] 2.73 10*3/uL 0.83-4.51 [facility] Work Phone: [phone] Basophil percentageon 2021 Basophil percentage 0 SEEN /hpf 0-[address] [facility] Work Phone: [phone] Basophils/100 WBC (Bld) 0.5 % 0-1 [facility] Work Phone: [phone] Chloride [Moles/Vol] 109 mmol/L 98-[address] [facility] Work Phone: [phone] Eosinophils/100 WBC (Bld) 1.6 % 0-5 [facility] Work Phone: [phone] Glucose [Mass/Vol] 101 mg/dL 74-106 [facility] Work Phone: [phone] Comment on above: Fasting Glucose resu lt from 100 to 125 mg/dL suggests IMPAIRED HOMEOSTASIS per A.D.A. criteria. Neutrophils (Bld) [#/Vol] 10.3 10*3/uL 2.0-7.7 [facility] Work Phone: Neutrophils/100 WBC (Bld) 70.6 % 47-70 [facility] Work Phone: Potassium [Moles/Vol] 3.3 mmol/L 3.5-5.1 [facility] Work Phone: Sodium [Moles/Vol] 141 mmol/L 136-145 [facility] Phone: WBC (Bld) [#/Vol] 14.6 10*3/uL 4.4-11.0 [facility] Work Phone: Beta hCG serum qualon 2021 Beta HCG ( test) Ql Negative [facility] Work Phone: Bilirubin Test strip Ql (U)o n 05-05-2022 Bilirubin Ql (U) Negative Negative [facility] Work Phone: Blood erythrocytes count (nu mber/volume)on 05-05-2022 RBC (Bld) [#/Vol] 3.92 10*6/uL 4.2-5.4 [facility] Work Phone: Blood hemoglobin measurement (mass/volume)on 05-05-2022 Hemoglobin (Bld) [Mass/Vol] 10.9 g/dL 12.0-15.0 [facility] Work Phone: Blood lymphocytes/100 leukoc yteson 05-05-2022 Lymphocytes/100 WBC (Bld) 18.7 % 19-41 [facility] Work Phone: Blood monocytes/100 leukocyt eson 05-05-2022 Monocytes/100 WBC (Bld) 8.2 % 0-10 [facility] Work Phone: Blood platelet mean volumeon 05-05-2022 Platelet mean volume (Bld) [Entitic vol] 10.2 fL 6.2-12.0 [facility] Work Phone: Determination of erythrocyte mean corpuscular volume (MCV)on 05-05-2022 MCV (RBC) [Entitic vol] 89.8 fL 81-99 [facility] Work Phone: Hematocrit Auto (Bld) [Volum e fraction]on 05-05-2022 Hematocrit (Bld) [Volume fraction] 35.2 % 37-47 [facility] Work Phone: Ketones Test strip Ql (U)on 05-05-2022 Ketones Ql (U) Negative Negative [facility] Work Phone: Laboratory - Chemistry and C hemistry - challengeon 05-05-2022 CO2 [Moles/Vol] 27.0 mmol/L 21.0-32.0 [facility] Work Phone: Urea nitrogen/Creatinine [Mass ratio] 7.6 mg/mg 10-20 [facility] Work Phone: Laboratory - Hematology and Cell countson 05-05-2022 Erythrocyte distribution width (RBC) [Entitic vol] 51.5 fL 35.1-43.9 [facility] Work Phone: Erythrocyte distribution width (RBC) [Ratio] 15.6 % 11.6-14.6 [facility] Work Phone: Immature granulocytes/100 WBC (Bld) 0.400 % 0.0-0.9 [facility] Work Phone: Comment on above: IG% - Immature Granu locytes (promyelocytes, myelocytes and metamyelocytes) > 1% indicates that a LEFT SHIFT is Present. MCH (RBC) [Entitic mass] 27.8 pg 27.0-32.0 [facility] Work Phone: Nucleated RBC/100 WBC (Bld) [Ratio] 0 % 0-5 [facility] Work Phone: MCHC Auto (RBC) [Mass/Vol]on 05-05-2022 MCHC (RBC) [Mass/Vol] 31.0 g/dL 32-36 [facility] Work Phone: Mucus LM Ql (Urine sed)on Mucus Ql (Urine sed) 0 SEEN /hpf [facility] Work Phone: Nitrite Test strip Ql (U)on 05-05-2022 Nitrite Ql (U) Negative Negative [facility] Work Phone: No Panel Informationon 05-05 Estimated Creatinine Clearance Calc 70.38 ml/min [facility] Work Phone: Estimated GFR (MDRD) Amer 101 mL/min >60 [facility] Work Phone: Comment on above: GFR Calc Estimated GFR (MDRD) Non-Af Amer 84 mL/min >60 [facility] Work Phone: Comment on above: Non- GFR Calc Platelets bldon 05-05-2022 Platelets (Bld) [#/Vol] 343 10*3/uL 150-450 [facility] Work Phone: Protein Test strip Ql (U)on 05-05-2022 Protein Ql (U) Negative Negative [facility] Work Phone: Serum or plasma calcium cornelio urement (mass/volume)on 05-05-2022 Calcium [Mass/Vol] 8.7 mg/dL 8.5-10.1 [facility] Work Phone: Serum or plasma creatinine m easurement (mass/volume)on 05-05-2022 Creatinine [Mass/Vol] 0.79 mg/dL 0.55-1.02 [facility] Work Phone: Comment on above: The validity of the calculated GFR & GFRAA in patients over 70 years has not been determined. Clinical correlation is essential. Serum or plasma urea nitroge n measurement (mass/volume)on 05-05-2022 Urea nitrogen [Mass/Vol] 6 mg/dL 7-18 [facility] Work Phone: Squamous epithelial cells de tection in urine sediment by light microscopyon 05-05-2022 Epithelial cells.squamous LM Ql (Urine sed) 0-5 SEEN /hpf 5-10 [facility] Work Phone: Thin prep Papanicolaou smear with manual screeningon 05-05-2022 Thin prep Papanicolaou smear with manual screening 5 5-15 [facility] Work Phone: Urine blood detectionon - RBC Ql (U) 25 /ul Negative [facility] Work Phone: RBC Ql (U) 0-5 SEEN /hpf 0-5 [facility] Work Phone: Urine clarityon 05-05-2022 Clarity (U) Clear Clear [facility] Work Phone: Urine color determinationon 05-05-2022 Color (U) Yellow Yellow [facility] Work Phone: Urine glucose detectionon Glucose Ql (U) Normal mg/dl Normal [facility] Work Phone: Urine leukocyte esterase det ection by dipstickon 05-05-2022 Leukocyte esterase Test strip Ql (U) Negative Negative [facility] Work Phone: Urine pHon 05-05-2022 pH (U) 6.5 [pH] 5.0 - 8.0 [facility] Work Phone: Urine sediment bacteria coun t by microscopy (number/high power field)on 05-05-2022 Bacteria LM.HPF (Urine sed) [#/Area] 1 /[HPF] None Seen [facility] Work Phone: Urine specific gravity measu rementon 05-05-2022 Specific gravity (U) [Rel density] 1.005 1.002-1.030 [facility] Work Phone: Urobilinogen Auto test strip Ql (U)on 05-05-2022 Urobilinogen Ql (U) Normal mg/dl Normal [facility] Work Phone: EMG(NEURO/NI)on 03-05-2022 [place] XR ELBOW SPECIAL VIEWS AP/LA T/OTHER LEFTon 02-01-2022 [place] XR Elbow - left AP and Later al and obliqueon 02-01-2022 IMPRESSION: No radiographic evidence of acute osseous abnormality Title I Teacher: [facility] Transcribe Date/Time: Feb 01 2022 9:23A Dictated by : ROGE OLSON MD This examination was interpreted and the report reviewed and electronically signed by: ROGE OLSON MD on Feb 01 2022 9:23AM EST DIVISION OF RADIOLOGY * * *Final Report* * * DATE OF EXAM: Feb 01 2022 9:19AM WOX 5324 - XR ELBOW 3V AP/LAT/OTHER LT / PROCEDURE REASON: Left elbow pain * * * * Physician Interpretation * * * * CLINICAL INDICATION: Elbow pain TECHNIQUE: 3 view radiographic study of the left elbow COMPARISON: Radiograph dated June 23, 2020 FINDINGS: No abnormal elevation of the anterior or posterior fat pad to suggest elbow joint effusion. No acute fracture or dislocation identified. Joint spaces preserved. DIVISION OF RADIOLOGY Provider, [facility] - 02/01/2022 * * *Final Report* * * DATE OF EXAM: Feb 01 2022 9:19AM WOX 5324 - XR ELBOW 3V AP/LAT/OTHER LT / PROCEDURE REASON: Left elbow pain * * * * Physician Interpretation * * * * CLINICAL INDICATION: Elbow pain TECHNIQUE: 3 view radiographic study of the left elbow COMPARISON: Radiograph dated June 23, 2020 FINDINGS: No abnormal elevation of the anterior or posterior fat pad to suggest elbow joint effusion. No acute fracture or dislocation identified. Joint spaces preserved. IMPRESSION IMPRESSION: No radiographic evidence of acute osseous abnormality Title I Teacher: [facility] Transcribe Date/Time: Feb 01 2022 9:23A Dictated by : ROGE OLSON MD This examination was interpreted and the report reviewed and electronically signed by: ROGE OLSON MD on Feb 01 2022 9:23AM EST [place] Radiology Study observation (narrative) [facility] XR Elbow - left AP and Later al and obliqueOrdered By: [facility] Provider on 02-01-2022 [place] XR Chest PA and Lateralon 01 -08-2022 IMPRESSION: Extensive upper lungs pulmonary emphysema with questionable changes of bronchitis in the lower lungs. A follow-up exam is recommended. Title I Teacher: [facility] Transcribe Date/Time: Nov 14 2021 9:46A Dictated by : AMANDA VILLEGAS MD This examination was interpreted and the report reviewed and electronically signed by: AMANDA VILLEGAS MD on Nov 14 2021 9:48AM [facility] DIVISION OF RADIOLOGY * * *Final Report* * * DATE OF EXAM: Nov 14 2021 9:33AM WOX 5291 - XR CHEST 2V FRONTAL/LAT / PROCEDURE REASON: Cough * * * * Physician Interpretation * * * * EXAMINATION: CHEST RADIOGRAPH (2 VIEW FRONTAL & LATERAL) CLINICAL HISTORY: Cough MQ: XC2_6 EXAM DATE/TIME: 11/14/2021 9:33 AM COMPARISON: 07/10/2020 RESULT: Lines, tubes, and devices: None. Lungs and pleura: There is extensive bilateral pulmonary emphysema seen predominantly in the upper lungs. There are increased bronchovascular markings in the lower lungs probably due to mild changes of bronchitis. No definite infiltrate to suggest pneumonia. No consolidation. No lung mass. No pleural effusion. No pneumothorax. Cardiomediastinal silhouette: Normal cardiomediastinal silhouette. Bones and soft tissues: Unremarkable. DIVISION OF RADIOLOGY Provider, [facility] - 11/14/2021 * * *Final Report* * * DATE OF EXAM: Nov 14 2021 9:33AM WOX 5291 - XR CHEST 2V FRONTAL/LAT / PROCEDURE REASON: Cough * * * * Physician Interpretation * * * * EXAMINATION: CHEST RADIOGRAPH (2 VIEW FRONTAL & LATERAL) CLINICAL HISTORY: Cough MQ: XC2_6 EXAM DATE/TIME: 11/14/2021 9:33 AM COMPARISON: 07/10/2020 RESULT: Lines, tubes, and devices: None. Lungs and pleura: There is extensive bilateral pulmonary emphysema seen predominantly in the upper lungs. There are increased bronchovascular markings in the lower lungs probably due to mild changes of bronchitis. No definite infiltrate to suggest pneumonia. No consolidation. No lung mass. No pleural effusion. No pneumothorax. Cardiomediastinal silhouette: Normal cardiomediastinal silhouette. Bones and soft tissues: Unremarkable. IMPRESSION IMPRESSION: Extensive upper lungs pulmonary emphysema with questionable changes of bronchitis in the lower lungs. A follow-up exam is recommended. Title I Teacher: [facility] Transcribe Date/Time: Nov 14 2021 9:46A Dictated by : AMANDA VILLEGAS MD This examination was interpreted and the report reviewed and electronically signed by: AMANDA VILLEGAS MD on Nov 14 2021 9:48AM EST [place] Radiology Study observation (narrative) Olga billings [facility] XR Chest PA and LateralOrder ed By: [facility] Provider on 11-14-2021 [place] UR DRUG ABUSEon 08-31-2018 UR AMPH Negative Normal Wsriho=1999 [place] Comment on above: Order Comment: Ilene s: M: STAT RESULTS TO PAIN MANAGEMENT Performed By: #### L 600.47220 ####[facility] [id number] [place], [place] [address]Pq# [phone] UR BRADY Negative Normal Swyoge=334 [facility] Comment on above: Order Comment: Ilene araya: M: STAT RESULTS TO PAIN MANAGEMENT Performed By: #### L 600.42330 ####[facility] [id number] [place], [place] [address]Hx# [phone] UR SELVIN Negative Normal Cvqgay=252 [facility] Comment on above: Order Comment: Ilene araya: M: STAT RESULTS TO PAIN MANAGEMENT Performed By: #### L 600.59082 ####[facility] [id number] [place], [place] [address]Jl# [phone] UR MARQUIS/THC Positive Normal Cutoff=50 [facility] Comment on above: Order Comment: Ilene araya: M: STAT RESULTS TO PAIN MANAGEMENT Performed By: #### L 600.94256 ####[facility] [id number] [place], [place] [address]Ac# [phone] UR CED Negative Normal Fkxkjc=665 [facility] Comment on above: Order Comment: Ilene araya: M: STAT RESULTS TO PAIN MANAGEMENT Performed By: #### L 600.31510 ####[facility] [id number] [place], [place] [address]Wh# [phone] UR OPIAT Negative Normal Pahllr=574 [facility] Comment on above: Order Comment: Ilene s: M: STAT RESULTS TO PAIN MANAGEMENT Performed By: #### L 600.71645 ####[facility] [id number] [place], [place] [address]Li# [phone] UR PCP Negative Normal Cutoff=25 [facility] Comment on above: Order Comment: Michaelu s: M: STAT RESULTS TO PAIN MANAGEMENT Performed By: #### L 600.18843 ####[facility] [id number] [place], [place] [address]Fc# [phone] DRAB COMMENT Normal [facility] Comment on above: Order Comment: Ilene s: M: STAT RESULTS TO PAIN MANAGEMENT Result Comment: [facility] [employer] results are qualitative, providing apreliminary analytical result. A positive result for anassay should be confirmed by another nonimmunological,reference method. A negative result indicates that theassay material is either not present, or present at levelsbelow the cutoff threshold for the analytical method range(AMR) validation. Performed By: #### L 600.93658 ####[facility] [id number] [place] [address]Cy# [phone] UR DRUG ABUSEon 08-03-2018 UR AMPH Negative Normal Vfcwwf=0328 [facility] Comment on above: Order Comment: Ilene s: M: STATE READ TO PAIN MGMT-MITCHEL PLEASE Performed By: #### L 600.92618 ####[facility] [id number] [place], [place] [address]Ak# [phone] UR BRADY Negative Normal Liunwu=575 [facility] Comment on above: Order Comment: Ilene s: M: STATE READ TO PAIN MGMT-MITCHEL PLEASE Performed By: #### L 600.38721 ####[facility] [id number] [place] [address]Vx# [phone] UR SELVIN Negative Normal Kgbgti=543 [facility] Comment on above: Order Comment: Michaelu s: M: STATE READ TO PAIN MGMT-MITCHEL PLEASE Performed By: #### L 600.87917 ####[facility] [id number] [place] [address]Ld# [phone] UR MARQUIS/THC Positive Normal Cutoff=50 [facility] Comment on above: Order Comment: Ilene s: M: STATE READ TO PAIN MGMT-MITCHEL PLEASE Performed By: #### L 600.42820 ####[facility] [id number] [place], [place] [address]Kk# [phone] UR CED Negative Normal Ojkgcs=920 [facility] Comment on above: Order Comment: Ilene s: M: STATE READ TO PAIN MGMT-MITCHEL PLEASE Performed By: #### L 600.36690 ####[facility] [id number] [place] [address]Hz# [phone] UR OPIAT Negative Normal Hbikpl=185 [facility] Comment on above: Order Comment: Ilene s: M: STATE READ TO PAIN MGMT-MITCHEL PLEASE Performed By: #### L 600.95412 ####[facility] [id number] [place], [place] [address]Ph# [phone] UR PCP Negative Normal Cutoff=25 [facility] Comment on above: Order Comment: Ilene s: M: STATE READ TO PAIN MGMT-MITCHEL PLEASE Performed By: #### L 600.94721 ####[facility] [id number] [place], [place] [address]Ph# [phone] DRAB COMMENT Normal [facility] Comment on above: Order Comment: Ilene s: M: STATE READ TO PAIN MGMT-MITCHEL PLEASE Result Comment: [facility] [employer] results are qualitative, providing apreliminary analytical result. A positive result for anassay should be confirmed by another nonimmunological,reference method. A negative result indicates that theassay material is either not present, or present at levelsbelow the cutoff threshold for the analytical method range(AMR) validation. Performed By: #### L 600.73267 ####[facility] [id number] [place] [address]Vf# [phone] URINE PREGNANCYon 08-03-2018 UR HCG QUAL Negative Normal NEGATIVE [facility] Comment on above: Order Comment: Ilene s: M: STATE READ TO PAIN MGMT-MITCHEL PLEASE Performed By: #### L 600.23893 ####[facility] [id number] [place], [place] [address]Pv# [phone] UR SPEC GRAV 1.008 Normal 1.005-1.030 [facility] [place] Comment on above: Order Comment: Ilene s: M: STATE READ TO PAIN MGMT-MITCHEL PLEASE Result Comment: URIN E HCG RESULT MAY BE FALSE NEGATIVE DUE TO LOW SPECIFICGRAVITY. SUGGEST SERUM TEST. Performed By: #### L 600.41417 ####[facility] [id number] [place] [address]Uj# [phone] UR DRUG ABUSEon 07-06-2018 UR AMPH Negative Normal Drkkjm=3420 [facility] Comment on above: Order Comment: Ilene s: M: STAT READ TO PAIN MANAGEMENT Performed By: #### L 600.31931 ####[facility] [id number] [place] [address]Rb# [phone] UR BRADY Negative Normal Xxdntf=308 [facility] Comment on above: Order Comment: Ilene s: M: STAT READ TO PAIN MANAGEMENT Performed By: #### L 600.09694 ####[facility] [id number] [place], [place] [address]Mg# [phone] UR SELVIN Negative Normal Xxraga=264 [facility] Comment on above: Order Comment: Ilene s: M: STAT READ TO PAIN MANAGEMENT Performed By: #### L 600.15457 ####[facility] [id number] [place], [place] [address]Mx# [phone] UR MARQUIS/THC Positive Normal Cutoff=50 [facility] Comment on above: Order Comment: Ilene s: M: STAT READ TO PAIN MANAGEMENT Performed By: #### L 600.37086 ####[facility] [id number] [place] [address]Qx# [phone] UR CED Negative Normal Bnmptf=251 [facility] Comment on above: Order Comment: Ilene s: M: STAT READ TO PAIN MANAGEMENT Performed By: #### L 600.10494 ####[facility] [id number] [place], [place] [address]Pn# [phone] UR OPIAT Negative Normal Jsnlra=587 [facility] Comment on above: Order Comment: Ilene s: M: STAT READ TO PAIN MANAGEMENT Performed By: #### L 600.21299 ####[facility] [id number] [place], [place] [address]So# [phone] UR PCP Negative Normal Cutoff=25 [facility] Comment on above: Order Comment: Ilene s: M: STAT READ TO PAIN MANAGEMENT Performed By: #### L 600.66673 ####[address] [address]Nk# [phone] DRAB COMMENT Normal [facility] Comment on above: Order Comment: Ilene s: M: STAT READ TO PAIN MANAGEMENT Result Comment: U[employer] Abuse results are qualitative, providing apreliminary analytical result. A positive result for anassay should be confirmed by another nonimmunological,reference method. A negative result indicates that theassay material is either not present, or present at levelsbelow the cutoff threshold for the analytical method range(AMR) validation. Performed By: #### L 600.70106 ####[facility] [id number] [place], [place] [address]Ns# [phone] UR DRUG ABUSEon 06-08-2018 UR AMPH Negative Normal Qxouiq=6644 [facility] Comment on above: Order Comment: Ilene araya: M: STAT READ FAXED TO PAIN MANAGEMENT EXT.2717, PLEASE Performed By: #### L 600.49785 ####[facility] [id number] [place], [place] [address]Dd# [phone] UR BRADY Negative Normal Webhbt=411 [facility] Comment on above: Order Comment: Ilene araya: M: STAT READ FAXED TO PAIN MANAGEMENT EXT.2717, PLEASE Performed By: #### L 600.41836 ####[facility] [id number] [place], [place] [address]Ph# [phone] UR SELVIN Negative Normal Ikavjy=695 [facility] Comment on above: Order Comment: Ilene s: M: STAT READ FAXED TO PAIN MANAGEMENT EXT.2717, PLEASE Performed By: #### L 600.39070 ####[facility] [id number] [place] [address]Pz# [phone] UR MARQUIS/THC Positive Normal Cutoff=50 [facility] Comment on above: Order Comment: Ilene s: M: STAT READ FAXED TO PAIN MANAGEMENT EXT.2717, PLEASE Performed By: #### L 600.91100 ####[address] [address]Ht# [phone] UR CED Negative Normal Vnzdmb=873 [facility] Comment on above: Order Comment: Ilene s: M: STAT READ FAXED TO PAIN MANAGEMENT EXT.2717, PLEASE Performed By: #### L 600.22777 ####[address] [address]Ru# [phone] UR OPIAT Negative Normal Iayniy=082 [facility] Comment on above: Order Comment: Ilene s: M: STAT READ FAXED TO PAIN MANAGEMENT EXT.2717, PLEASE Performed By: #### L 600.25185 ####[address] [address]Li# [phone] UR PCP Negative Normal Cutoff=25 [facility] Comment on above: Order Comment: Ilene s: M: STAT READ FAXED TO PAIN MANAGEMENT EXT.2717, PLEASE Performed By: #### L 600.64770 ####[address] [address]Dd# [phone] DRAB COMMENT Normal [facility] Comment on above: Order Comment: Ilene s: M: STAT READ FAXED TO PAIN MANAGEMENT EXT.2717, PLEASE Result Comment: [employer] results are qualitative, providing apreliminary analytical result. A positive result for anassay should be confirmed by another nonimmunological,reference method. A negative result indicates that theassay material is either not present, or present at levelsbelow the cutoff threshold for the analytical method range(AMR) validation. Performed By: #### L 600.90525 ####[facility] [id number] [place], [place] [address]Qd# [phone] UR DRUG ABUSEon 05-11-2018 UR AMPH Negative Normal Jmahao=7391 [facility] Comment on above: Performed By: #### L 600.38290 ####[facility] ISEVMFUBER[address] [place], [place] [address]Eq# [phone] UR BRADY Negative Normal Bufwmc=358 [facility] Comment on above: Performed By: #### L 600.05807 ####[facility] SSVSVNUUAK[address]2 [place], [place] [address]Ar# [phone] UR SELVIN Negative Normal Cjubno=147 [facility] Comment on above: Performed By: #### L 600.66451 ####[facility] [id number] [place] [address]Mv# [phone] UR MARQUIS/THC Positive Normal Cutoff=50 [facility] Comment on above: Performed By: #### L 600.76978 ####[facility] [id number] [place], [place] [address]Tl# [phone] UR CED Negative Normal Gwoeuy=487 [facility] Comment on above: Performed By: #### L 600.71329 ####[facility] [id number] [place], [place] [address]Qb# [phone] UR OPIAT Negative Normal Rcjvit=849 [facility] Comment on above: Performed By: #### L 600.23789 ####[facility] JFPFSVNOUC[address] [place], [place] [address]Rt# [phone] UR PCP Negative Normal Cutoff=25 [facility] Comment on above: Performed By: #### L 600.49203 ####[facility] [id number] [place], [place] [address]Vd# [phone] DRAB COMMENT Normal [facility] Comment on above: Result Comment: U[employer] results are qualitative, providing apreliminary analytical result. A positive result for anassay should be confirmed by another nonimmunological,reference method. A negative result indicates that theassay material is either not present, or present at levelsbelow the cutoff threshold for the analytical method range(AMR) validation. Performed By: #### L 600.92006 ####[facility] [id number] [place], [place] [address]Na# [phone] [facility] Note on 05-08-2018 [facility] Note Normal [facility] [place] Pat Eduon 05-08-2018 Pat Edu Normal [facility] [place] Patient Summary Documentson 05-08-2018 Patient Summary Documents Normal [facility] [place] CHEST 2 VIEWSon 09-14-2017 CHEST 2 VIEWS Performed at [facility] APPROVED BY: Nicola Mitchell MD EXAMINATION: CHEST RADIOGRAPH (2 VIEW FRONTAL & LATERAL) Clinical History: Cough x5 daysM: XC2_3Comparison: 10/27/2000 RESULT: Lines, tubes, and devices: None. Lungs and pleura: Opacification in the right middle lobe consistent with acute inflammatory infiltrative process Cardiomediastinal silhouette: Normal cardiomediastinal silhouette. Other: IMPRESSION: Right middle lobe inflammatory infiltrate Normal [facility] Vital Signs Date Time Vital Sign Value Performing Clinician Facility 06-18-2025 09:45-0400 Body mass index (BMI) [Ratio] 29.7 kg/m2 Amita Pope APRN.OXYGEN FURNACE OPERATOR Work Phone: [place] 06-18-2025 09:45-0400 Body temperature 96.69 [degF] Amita Pope APRN.OXYGEN FURNACE OPERATOR Work Phone: [place] 06-18-2025 09:45-0400 Body weight 74.84 kg Amita Pope APRN.CNP Work Phone: [place] 06-18-2025 09:45-0400 Diastolic blood pressure 86 mm[Hg] Amita Pope APRN.CNP Work Phone: [place] 06-18-2025 09:45-0400 Heart rate 83 /min Amita Suppan DIRECTOR OF CARDIAC REHABILITATION.OXYGEN FURNACE OPERATOR Work Phone: [place] 06-18-2025 09:45-0400 SaO2% (BldA) [Mass fraction] 99 % Amita Suppan DIRECTOR OF CARDIAC REHABILITATION.OXYGEN FURNACE OPERATOR Work Phone: [place] 06-18-2025 09:45-0400 Systolic blood pressure 122 mm[Hg] Amita Suppan DIRECTOR OF CARDIAC REHABILITATION.OXYGEN FURNACE OPERATOR Work Phone: [place] 06-07-2025 16:34-0400 Body mass index (BMI) [Ratio] 29.36 kg/m2 Kim Kebede MD Work Phone: [place] 06-07-2025 16:34-0400 Body temperature 97.9 [degF] Kim Kebede MD Work Phone: [place] 06-07-2025 16:34-0400 Body weight 74 kg Kim Kebede MD Work Phone: [place] 06-07-2025 16:34-0400 Diastolic blood pressure 78 mm[Hg] Kim Kebede MD Work Phone: [place] 06-07-2025 16:34-0400 Heart rate 95 /min Kim Kebede MD Work Phone: [place] 06-07-2025 16:34-0400 Respiratory rate 18 /min Kim Kebede MD Work Phone: [place] 06-07-2025 16:34-0400 SaO2% (BldA) [Mass fraction] 98 % Kim Kebede MD Work Phone: [place] 06-07-2025 16:34-0400 Systolic blood pressure 122 mm[Hg] Kim Kebede MD Work Phone: [place] 01-29-2025 13:19-0400 Diastolic blood pressure 82 mm[Hg] Amita Suppan DIRECTOR OF CARDIAC REHABILITATION.OXYGEN FURNACE OPERATOR Work Phone: [place] 01-29-2025 13:19-0400 Systolic blood pressure 134 mm[Hg] Amita Suppan DIRECTOR OF CARDIAC REHABILITATION.OXYGEN FURNACE OPERATOR Work Phone: [place] 01-29-2025 13:01-0400 Body mass index (BMI) [Ratio] 29.88 kg/m2 Amita Suppan DIRECTOR OF CARDIAC REHABILITATION.OXYGEN FURNACE OPERATOR Work Phone: [place] 01-29-2025 13:01-0400 Body temperature 97 [degF] Amita Suppan DIRECTOR OF CARDIAC REHABILITATION.OXYGEN FURNACE OPERATOR Work Phone: [place] 01-29-2025 13:01-0400 Body weight 75.3 kg Amita Suppan DIRECTOR OF CARDIAC REHABILITATION.OXYGEN FURNACE OPERATOR Work Phone: [place] 01-29-2025 13:01-0400 Heart rate 90 /min Amita Suppan DIRECTOR OF CARDIAC REHABILITATION.OXYGEN FURNACE OPERATOR Work Phone: [place] 01-29-2025 13:01-0400 SaO2% (BldA) [Mass fraction] 97 % Amita Suppan DIRECTOR OF CARDIAC REHABILITATION.OXYGEN FURNACE OPERATOR Work Phone: [place] 01-25-2025 13:27-0400 Body height 158.8 cm Devin Masci DO Work Phone: [place] 01-25-2025 13:27-0400 Body mass index (BMI) [Ratio] 30.6 kg/m2 Devin Masci DO Work Phone: [place] 01-25-2025 13:27-0400 Body temperature 98.49 [degF] Devin Masci DO Work Phone: [place] 01-25-2025 13:27-0400 Body weight 77.11 kg Devin Masci DO Work Phone: [place] 01-25-2025 13:27-0400 Diastolic blood pressure 93 mm[Hg] Devin Masci DO Work Phone: [place] 01-25-2025 13:27-0400 Heart rate 119 /min Devin Masci DO Work Phone: [place] 01-25-2025 13:27-0400 SaO2% (BldA) [Mass fraction] 96 % Devin Masci DO Work Phone: [place] 01-25-2025 13:27-0400 Systolic blood pressure 167 mm[Hg] Devin Donald DO Work Phone: [place] 01-14-2025 14:27-0400 Body mass index (BMI) [Ratio] 30.33 kg/m2 Amita Suppan DIRECTOR OF CARDIAC REHABILITATION.OXYGEN FURNACE OPERATOR Work Phone: [place] 01-14-2025 14:27-0400 Body temperature 99.39 [degF] Amita Suppan DIRECTOR OF CARDIAC REHABILITATION.OXYGEN FURNACE OPERATOR Work Phone: [place] 01-14-2025 14:27-0400 Body weight 76.2 kg Amita Suppan DIRECTOR OF CARDIAC REHABILITATION.OXYGEN FURNACE OPERATOR Work Phone: [place] 01-14-2025 14:27-0400 Diastolic blood pressure 92 mm[Hg] Amita Suppan DIRECTOR OF CARDIAC REHABILITATION.OXYGEN FURNACE OPERATOR Work Phone: [place] 01-14-2025 14:27-0400 Heart rate 94 /min Amita Suppan DIRECTOR OF CARDIAC REHABILITATION.OXYGEN FURNACE OPERATOR Work Phone: [place] 01-14-2025 14:27-0400 SaO2% (BldA) [Mass fraction] 97 % Amita Suppan DIRECTOR OF CARDIAC REHABILITATION.OXYGEN FURNACE OPERATOR Work Phone: [place] 01-14-2025 14:27-0400 Systolic blood pressure 138 mm[Hg] Amita Suppan DIRECTOR OF CARDIAC REHABILITATION.OXYGEN FURNACE OPERATOR Work Phone: [place] 01-03-2025 13:29-0500 Body mass index (BMI) [Ratio] 30.15 kg/m2 Amita Suppan DIRECTOR OF CARDIAC REHABILITATION.OXYGEN FURNACE OPERATOR Work Phone: [place] 01-03-2025 13:29-0500 Body temperature 99.5 [degF] Amita Suppan DIRECTOR OF CARDIAC REHABILITATION.OXYGEN FURNACE OPERATOR Work Phone: [place] 01-03-2025 13:29-0500 Body weight 75.75 kg Amita Suppan DIRECTOR OF CARDIAC REHABILITATION.OXYGEN FURNACE OPERATOR Work Phone: [place] 01-03-2025 13:29-0500 Diastolic blood pressure 82 mm[Hg] Amita Suppan DIRECTOR OF CARDIAC REHABILITATION.OXYGEN FURNACE OPERATOR Work Phone: [place] 01-03-2025 13:29-0500 Heart rate 115 /min Amita Suppan DIRECTOR OF CARDIAC REHABILITATION.OXYGEN FURNACE OPERATOR Work Phone: [place] 01-03-2025 13:29-0500 SaO2% (BldA) [Mass fraction] 97 % Aimta Suppan DIRECTOR OF CARDIAC REHABILITATION.OXYGEN FURNACE OPERATOR Work Phone: [place] 01-03-2025 13:29-0500 Systolic blood pressure 140 mm[Hg] Amita Suppan DIRECTOR OF CARDIAC REHABILITATION.OXYGEN FURNACE OPERATOR Work Phone: [place] 12-17-2024 13:06-0500 Body mass index (BMI) [Ratio] 28.18 kg/m2 Lindsay Ashley DIRECTOR OF CARDIAC REHABILITATION.OXYGEN FURNACE OPERATOR Work Phone: [place] 12-17-2024 13:06-0500 Body temperature 98.4 [degF] Lindsay Ashley DIRECTOR OF CARDIAC REHABILITATION.OXYGEN FURNACE OPERATOR Work Phone: [place] 12-17-2024 13:06-0500 Body weight 70.8 kg Lindsay Ashley DIRECTOR OF CARDIAC REHABILITATION.OXYGEN FURNACE OPERATOR Work Phone: [place] 12-17-2024 13:06-0500 Diastolic blood pressure 70 mm[Hg] Lindsay Ashley DIRECTOR OF CARDIAC REHABILITATION.OXYGEN FURNACE OPERATOR Work Phone: [place] 12-17-2024 13:06-0500 Heart rate 108 /min Lindsay Ashley DIRECTOR OF CARDIAC REHABILITATION.OXYGEN FURNACE OPERATOR Work Phone: [place] 12-17-2024 13:06-0500 Respiratory rate 18 /min Lindsay Ashley DIRECTOR OF CARDIAC REHABILITATION.OXYGEN FURNACE OPERATOR Work Phone: [place] 12-17-2024 13:06-0500 SaO2% (BldA) [Mass fraction] 98 % Lindsay Ashley DIRECTOR OF CARDIAC REHABILITATION.OXYGEN FURNACE OPERATOR Work Phone: [place] 12-17-2024 13:06-0500 Systolic blood pressure 110 mm[Hg] Lindsay Ashley DIRECTOR OF CARDIAC REHABILITATION.OXYGEN FURNACE OPERATOR Work Phone: [place] 03-27-2024 13:08-0400 Body height 158.5 cm NA Chowdhury PA-C Work Phone: [place] 03-27-2024 13:08-0400 Body mass index (BMI) [Ratio] 24.92 kg/m2 NA Chowdhury PA-C Work Phone: [place] 03-27-2024 13:08-0400 Body weight 62.6 kg NA Chowdhury PA-C Work Phone: [place] 03-27-2024 13:08-0400 Diastolic blood pressure 92 mm[Hg] NA Chowdhury PA-C Work Phone: [place] 03-27-2024 13:08-0400 Heart rate 105 /min NA Chowdhury PA-C Work Phone: [place] 03-27-2024 13:08-0400 Respiratory rate 16 /min NA Chowdhury PA-C Work Phone: [place] 03-27-2024 13:08-0400 SaO2% (BldA) [Mass fraction] 97 % NA Chowdhury PA-C Work Phone: [place] 03-27-2024 13:08-0400 Systolic blood pressure 133 mm[Hg] NA Chowdhury PA-C Work Phone: [place] 12-08-2023 19:31-0500 Body mass index (BMI) [Ratio] 26.1 kg/m2 [facility] 12-08-2023 19:31-0500 Body weight 64.7 kg [facility] 12-08-2023 18:31-0500 Body height 157.48 cm [facility] 12-08-2023 18:31-0500 Body temperature 98 [degF] [facility] 12-08-2023 18:31-0500 Diastolic blood pressure 96 mm[Hg] [facility] 12-08-2023 18:31-0500 Heart rate 101 /min [facility] 12-08-2023 18:31-0500 Respiratory rate 18 /min [facility] 12-08-2023 18:31-0500 SaO2% (BldA) [Mass fraction] 100 % [facility] 12-08-2023 18:31-0500 Systolic blood pressure 141 mm[Hg] [facility] 12-08-2023 17:59-0500 Body temperature 97.39 [degF] Nicci Praisler-Wood DIRECTOR OF CARDIAC REHABILITATION.OXYGEN FURNACE OPERATOR Work Phone: [place] 12-08-2023 17:59-0500 Body weight 63.87 kg Nicci Praisler-Wood DIRECTOR OF CARDIAC REHABILITATION.OXYGEN FURNACE OPERATOR Work Phone: [place] 12-08-2023 17:59-0500 Diastolic blood pressure 84 mm[Hg] Nicci Praisler-Wood DIRECTOR OF CARDIAC REHABILITATION.OXYGEN FURNACE OPERATOR Work Phone: [place] 12-08-2023 17:59-0500 Heart rate 107 /min Nicci Praisler-Wood DIRECTOR OF CARDIAC REHABILITATION.OXYGEN FURNACE OPERATOR Work Phone: [place] 12-08-2023 17:59-0500 Respiratory rate 20 /min Nicci Praisler-Wood DIRECTOR OF CARDIAC REHABILITATION.OXYGEN FURNACE OPERATOR Work Phone: [place] 12-08-2023 17:59-0500 SaO2% (BldA) [Mass fraction] 98 % Nicci Praisler-Wood DIRECTOR OF CARDIAC REHABILITATION.OXYGEN FURNACE OPERATOR Work Phone: [place] 12-08-2023 17:59-0500 Systolic blood pressure 142 mm[Hg] Nicci Praisler-Wood DIRECTOR OF CARDIAC REHABILITATION.OXYGEN FURNACE OPERATOR Work Phone: [place] 11-14-2023 14:21-0500 Body height 160.02 cm [facility] 11-14-2023 14:21-0500 Body mass index (BMI) [Ratio] 24.7 kg/m2 [facility] 11-14-2023 14:21-0500 Body temperature 97 [degF] [facility] 11-14-2023 14:21-0500 Body weight 63.5 kg [facility] 11-14-2023 14:21-0500 Diastolic blood pressure 116 mm[Hg] [facility] 11-14-2023 14:21-0500 Heart rate 109 /min [facility] 11-14-2023 14:21-0500 Respiratory rate 18 /min [facility] 11-14-2023 14:21-0500 SaO2% (BldA) [Mass fraction] 98 % [facility] 11-14-2023 14:21-0500 Systolic blood pressure 180 mm[Hg] [facility] 08-04-2023 14:03-0400 Body weight 62.6 kg Janelle Leahy DIRECTOR OF CARDIAC REHABILITATION.CNM Work Phone: [place] 08-04-2023 14:03-0400 Diastolic blood pressure 64 mm[Hg] Janelle Leahy DIRECTOR OF CARDIAC REHABILITATION.CNM Work Phone: [place] 08-04-2023 14:03-0400 Systolic blood pressure 110 mm[Hg] Janelle Leahy DIRECTOR OF CARDIAC REHABILITATION.CNM Work Phone: [place] 08-01-2023 12:23-0400 Diastolic blood pressure 78 mm[Hg] [facility] 08-01-2023 12:23-0400 Heart rate 68 /min [facility] 08-01-2023 12:23-0400 Respiratory rate 16 /min [facility] 08-01-2023 12:23-0400 SaO2% (BldA) [Mass fraction] 98 % [facility] 08-01-2023 12:23-0400 Systolic blood pressure 124 mm[Hg] [facility] 08-01-2023 10:07-0400 Body height 160.02 cm [facility] 08-01-2023 10:07-0400 Body mass index (BMI) [Ratio] 25.2 kg/m2 [facility] 08-01-2023 10:07-0400 Body temperature 97.9 [degF] [facility] 08-01-2023 10:07-0400 Body weight 64.54 kg [facility] 06-14-2023 23:38-0400 Diastolic blood pressure 65 mm[Hg] [facility] 06-14-2023 23:38-0400 Heart rate 88 /min [facility] 06-14-2023 23:38-0400 Respiratory rate 16 /min [facility] 06-14-2023 23:38-0400 SaO2% (BldA) [Mass fraction] 99 % [facility] 06-14-2023 23:38-0400 Systolic blood pressure 120 mm[Hg] [facility] 06-14-2023 21:44-0400 Body height 157.48 cm [facility] 06-14-2023 21:44-0400 Body mass index (BMI) [Ratio] 26.3 kg/m2 [facility] 06-14-2023 21:44-0400 Body temperature 97.9 [degF] [facility] 06-14-2023 21:44-0400 Body weight 65.31 kg [facility] 10-08-2022 13:08-0500 Diastolic blood pressure 68 mm[Hg] [facility] 10-08-2022 13:08-0500 Heart rate 85 /min [facility] 10-08-2022 13:08-0500 Respiratory rate 19 /min [facility] 10-08-2022 13:08-0500 SaO2% (BldA) [Mass fraction] 99 % [facility] 10-08-2022 13:08-0500 Systolic blood pressure 115 mm[Hg] [facility] 10-08-2022 11:28-0500 Body temperature 97.9 [degF] [facility] 10-08-2022 11:23-0500 Body height 157.48 cm [facility] 10-08-2022 11:23-0500 Body mass index (BMI) [Ratio] 26.6 kg/m2 [facility] 10-08-2022 11:23-0500 Body weight 66 kg [facility] 08-10-2022 11:42-0400 Body temperature 97.59 [degF] Traci Celis APRN.CNP Work Phone: [place] 08-10-2022 11:42-0400 Body weight 64.86 kg Traci Celis APRN.CNP Work Phone: [place] 08-10-2022 11:42-0400 Diastolic blood pressure 88 mm[Hg] Traci Celis APRN.OXYGEN FURNACE OPERATOR Work Phone: [place] 08-10-2022 11:42-0400 Heart rate 90 /min Traci Celis APRN.OXYGEN FURNACE OPERATOR Work Phone: [place] 08-10-2022 11:42-0400 Respiratory rate 16 /min Traci Celis APRN.OXYGEN FURNACE OPERATOR Work Phone: [place] 08-10-2022 11:42-0400 SaO2% (BldA) [Mass fraction] 99 % Traci Celis APRN.OXYGEN FURNACE OPERATOR Work Phone: [place] 08-10-2022 11:42-0400 Systolic blood pressure 152 mm[Hg] Traci Celis APRN.OXYGEN FURNACE OPERATOR Work Phone: [place] 06-25-2022 09:31-0400 Respiratory rate 16 /min [facility] Work Phone: 06-25-2022 08:29-0400 Body height 157.48 cm [facility] Work Phone: 06-25-2022 08:29-0400 Body mass index (BMI) [Ratio] 27.5 kg/m2 [facility] Work Phone: 06-25-2022 08:29-0400 Body temperature 98.2 [degF] [facility] Work Phone: 06-25-2022 08:29-0400 Body weight 68.3 kg [facility] Work Phone: 06-25-2022 08:29-0400 Diastolic blood pressure 111 mm[Hg] [facility] Work Phone: 06-25-2022 08:29-0400 Heart rate 97 /min [facility] Work Phone: 06-25-2022 08:29-0400 SaO2% (BldA) [Mass fraction] 96 % [facility] Work Phone: 06-25-2022 08:29-0400 Systolic blood pressure 166 mm[Hg] [facility] Work Phone: 06-07-2022 08:31-0400 Body weight 67.13 kg Lindsay Jose APRN.OXYGEN FURNACE OPERATOR Work Phone: [place] 06-07-2022 08:31-0400 Diastolic blood pressure 84 mm[Hg] Lindsay Jose APRN.OXYGEN FURNACE OPERATOR Work Phone: [place] 06-07-2022 08:31-0400 Heart rate 92 /min Lindsay Jose APRN.OXYGEN FURNACE OPERATOR Work Phone: [place] 06-07-2022 08:31-0400 SaO2% (BldA) [Mass fraction] 98 % Lindsay Jose APRN.OXYGEN FURNACE OPERATOR Work Phone: [place] 06-07-2022 08:31-0400 Systolic blood pressure 131 mm[Hg] Lindsay Jose APRN.OXYGEN FURNACE OPERATOR Work Phone: [place] 05-05-2022 05:09-0400 Diastolic blood pressure 74 mm[Hg] [facility] Work Phone: 05-05-2022 05:09-0400 Heart rate 72 /min [facility] Work Phone: 05-05-2022 05:09-0400 SaO2% (BldA) [Mass fraction] 98 % [facility] Work Phone: 05-05-2022 05:09-0400 Systolic blood pressure 130 mm[Hg] [facility] Work Phone: 05-05-2022 00:58-0400 Body height 157.48 cm [facility] Work Phone: 05-05-2022 00:58-0400 Body mass index (BMI) [Ratio] 27.1 kg/m2 [facility] Work Phone: 05-05-2022 00:58-0400 Body temperature 98.2 [degF] [facility] Work Phone: 05-05-2022 00:58-0400 Body weight 67.13 kg [facility] Work Phone: 05-05-2022 00:58-0400 Respiratory rate 15 /min [facility] Work Phone: 03-03-2022 11:23-0400 Body weight 67.41 kg Francy Haagen DIRECTOR OF CARDIAC REHABILITATION.OXYGEN FURNACE OPERATOR Work Phone: [place] 03-03-2022 11:23-0400 Diastolic blood pressure 86 mm[Hg] Francy Haagen DIRECTOR OF CARDIAC REHABILITATION.OXYGEN FURNACE OPERATOR Work Phone: [place] 03-03-2022 11:23-0400 Heart rate 82 /min Francy Haagen DIRECTOR OF CARDIAC REHABILITATION.OXYGEN FURNACE OPERATOR Work Phone: [place] 03-03-2022 11:23-0400 Respiratory rate 16 /min Francy Haagen DIRECTOR OF CARDIAC REHABILITATION.OXYGEN FURNACE OPERATOR Work Phone: [place] 03-03-2022 11:23-0400 SaO2% (BldA) [Mass fraction] 99 % Francy Haagen DIRECTOR OF CARDIAC REHABILITATION.OXYGEN FURNACE OPERATOR Work Phone: [place] 03-03-2022 11:23-0400 Systolic blood pressure 136 mm[Hg] Francy Haagen DIRECTOR OF CARDIAC REHABILITATION.OXYGEN FURNACE OPERATOR Work Phone: [place] 02-01-2022 08:51-0400 Body temperature 97.3 [degF] Wm Rayo MD Work Phone: [place] 02-01-2022 08:51-0400 Body weight 69.85 kg Wm Rayo MD Work Phone: [place] 02-01-2022 08:51-0400 Diastolic blood pressure 86 mm[Hg] Wm Rayo MD Work Phone: [place] 02-01-2022 08:51-0400 Heart rate 87 /min Wm Rayo MD Work Phone: [place] 02-01-2022 08:51-0400 Respiratory rate 20 /min Wm Rayo MD Work Phone: [place] 02-01-2022 08:51-0400 SaO2% (BldA) [Mass fraction] 100 % Wm Rayo MD Work Phone: [place] 02-01-2022 08:51-0400 Systolic blood pressure 122 mm[Hg] Wm Rayo MD Work Phone: [place] 01-27-2022 07:48-0400 Body weight 60.33 kg Francy Haagen DIRECTOR OF CARDIAC REHABILITATION.OXYGEN FURNACE OPERATOR Work Phone: [place] 01-27-2022 07:48-0400 Diastolic blood pressure 78 mm[Hg] Francy Haagen DIRECTOR OF CARDIAC REHABILITATION.OXYGEN FURNACE OPERATOR Work Phone: [place] 01-27-2022 07:48-0400 Heart rate 107 /min Francy Bhaktaagen DIRECTOR OF CARDIAC REHABILITATION.OXYGEN FURNACE OPERATOR Work Phone: [place] 01-27-2022 07:48-0400 Respiratory rate 16 /min Francy Bhaktaagen DIRECTOR OF CARDIAC REHABILITATION.OXYGEN FURNACE OPERATOR Work Phone: [place] 01-27-2022 07:48-0400 SaO2% (BldA) [Mass fraction] 96 % Francy Bernard DIRECTOR OF CARDIAC REHABILITATION.OXYGEN FURNACE OPERATOR Work Phone: [place] 01-27-2022 07:48-0400 Systolic blood pressure 120 mm[Hg] Francy Haagen DIRECTOR OF CARDIAC REHABILITATION.OXYGEN FURNACE OPERATOR Work Phone: [place] Encounters Encounter Date Encounter Type Care Provider Facility Start: 06-20-2025 End: 06-20-2025 Follow-up encounter Amita Pope DIRECTOR OF CARDIAC REHABILITATION.OXYGEN FURNACE OPERATOR Work Phone: [facility] [place] Start: 06-18-2025 End: 06-18-2025 Subsequent hospital visit by physician [facility] [place] Work Phone: Radiology Comment on above: Thumb pain, left [M7 9.311] Start: 06-18-2025 End: 06-18-2025 Office outpatient visit 25 minutes Amita Pope DIRECTOR OF CARDIAC REHABILITATION.OXYGEN FURNACE OPERATOR Work Phone: [facility] [place] Comment on above: Iron deficiency anem ia, unspecified iron deficiency anemia type (Primary Dx); Rectal bleeding; Rosacea; Mixed hyperlipidemia; 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; Primary hypertension; COPD with chronic bronchitis (HCC); Screening for diabetes mellitus; Thumb pain, left Start: 06-18-2025 End: 06-18-2025 ambulatory AMITA A TOSHIA Facility:[facility] Start: 06-17-2025 End: 06-17-2025 ambulatory Martinez Garcia MD Work Phone: [facility] [place] Comment on above: Rectal Bleeding Start: 06-07-2025 End: 06-07-2025 Office outpatient visit 25 minutes Kim Kebede MD Work Phone: [facility] [place] Comment on above: URI, acute (Primary Dx); Chronic obstructive pulmonary disease with acute exacerbation (HCC) Start: 06-07-2025 End: 06-07-2025 ambulatory MARTINEZ GARCIA Facility:[facility] Start: 04-25-2025 End: 04-25-2025 Refill Martinez Garcia MD Work Phone: [facility] [place] Comment on above: requesting medicatio n that is (Venlafaxine ER 150 mg 24 hr tablet); Refill Request Start: 02-12-2025 End: 03-15-2025 ambulatory Martinez Garcia MD Work Phone: [facility] [place] Start: 02-04-2025 End: 02-04-2025 Telephone encounter Devin Donald DO Work Phone: Hematology/Oncology Comment on above: Results Start: 01-29-2025 End: 01-29-2025 ambulatory AMITA A SUPPAICHA Facility:[facility] Start: 01-29-2025 End: 01-29-2025 Office outpatient visit 15 minutes Amita Pope DIRECTOR OF CARDIAC REHABILITATION.OXYGEN FURNACE OPERATOR Work Phone: [facility] [place] Comment on above: Other iron deficienc y anemia (Primary Dx); Candidiasis; Respiratory infection; Primary hypertension Start: 01-25-2025 End: 01-25-2025 ambulatory Devin Donald DO Work Phone: Hematology/Oncology Comment on above: Leukocytosis, unspec ified type (Primary Dx); Thrombocytosis Start: 01-25-2025 End: 01-25-2025 Patient encounter procedure Devin Donald DO Work Phone: Hematology/Oncology Start: 01-15-2025 End: 01-15-2025 Follow-up encounter Amita A Suppan DIRECTOR OF CARDIAC REHABILITATION.OXYGEN FURNACE OPERATOR Work Phone: [facility] [place] Comment on above: Leukocytosis, unspec ified type (Primary Dx) Start: 01-15-2025 End: 01-15-2025 Telephone encounter José Pressley MD Work Phone: Hematology/Oncology Comment on above: New Patient Start: 01-14-2025 End: 01-14-2025 ambulatory AMITA A SUPPAN Facility:[facility] Start: 01-14-2025 End: 01-14-2025 Office outpatient visit 15 minutes Amita A Suppan DIRECTOR OF CARDIAC REHABILITATION.OXYGEN FURNACE OPERATOR Work Phone: [facility] [place] Comment on above: Candidiasis (Primary Dx); Other acute recurrent sinusitis Start: 01-14-2025 End: 01-14-2025 Telephone encounter Amita A Suppan DIRECTOR OF CARDIAC REHABILITATION.OXYGEN FURNACE OPERATOR Work Phone: [facility] [place] Comment on above: Patient Update; Appo intment Start: 01-03-2025 End: 01-04-2025 Follow-up encounter Amita A Suppan DIRECTOR OF CARDIAC REHABILITATION.OXYGEN FURNACE OPERATOR Work Phone: [facility] [place] Comment on above: Leukocytosis, unspec ified type (Primary Dx) Start: 01-03-2025 End: 01-03-2025 ambulatory AMITA A SUPPAN Facility:[facility] Start: 01-03-2025 End: 01-03-2025 Office outpatient visit 25 minutes Amita A Suppan DIRECTOR OF CARDIAC REHABILITATION.OXYGEN FURNACE OPERATOR Work Phone: [facility] [place] Comment on above: Chronic low back alexandra n with sciatica, sciatica laterality unspecified, unspecified back pain laterality (Primary Dx); Respiratory infection; Hypomagnesemia Start: 01-02-2025 End: 01-02-2025 Telephone encounter Martinez Garcia MD Work Phone: [facility] Comment on above: ER F/U Start: 12-31-2024 End: 12-31-2024 Refill Martinez Garcia MD Work Phone: [facility] Comment on above: Refill Request Start: 12-28-2024 End: 12-29-2024 Emergency department patient visit GI BAILEY Facility:[facility] Start: 12-27-2024 ambulatory Lisa Plasenciaan [facility] Start: 12-26-2024 ambulatory Daphne Hernández [facility] Start: 12-26-2024 End: 12-27-2024 Evaluation and management of inpatient Daphne Hernández Facility:[facility] Start: 12-17-2024 End: 12-17-2024 ambulatory MARTINEZ GARCIA Facility:[facility] Start: 12-17-2024 End: 12-17-2024 Patient encounter procedure Lindsay Ashley APRN.CNP Work Phone: [facility] Comment on above: Acute otitis media, unspecified otitis media type (Primary Dx); COPD with exacerbation (HCC) Start: 10-26-2024 End: 11-13-2024 Refill Martinez Garcia MD Work Phone: [facility] [place] Comment on above: Refill Request Start: 10-02-2024 End: 10-03-2024 Emergency department patient visit Angel Luis Bellamy Facility:[facility] Start: 09-20-2024 End: 09-20-2024 ambulatory Cam MINER Facility:[facility] Start: 09-12-2024 End: 09-13-2024 Emergency department patient visit Martinez Tremont Facility:[facility] Start: 08-03-2024 End: 08-03-2024 Refill Martinez Garcia MD Work Phone: [facility] Comment on above: Refill Request Start: 07-13-2024 End: 07-13-2024 Refill Martinez Garcia MD Work Phone: [facility] [place] Comment on above: Refill Request Start: 04-19-2024 Telephone encounter Martinez Garcia MD Work Phone: [facility] Comment on above: Patient Question Start: 04-11-2024 End: 04-11-2024 Emergency department patient visit Martinez Garcia Facility:[facility] Start: 04-03-2024 Telephone encounter Martinez Garcia MD Work Phone: [facility] Comment on above: Orders Start: 03-27-2024 End: 03-27-2024 Patient encounter procedure Delores Chowdhury PA-C Work Phone: [facility] Comment on above: Coronary artery dise ase involving lower [place] coronary artery of [place] heart with angina pectoris (HCC) (Primary Dx); Mixed hyperlipidemia; Primary hypertension; Raynaud's phenomenon without gangrene; Centrilobular emphysema (HCC); COPD with chronic bronchitis ([facility]); Mild intermittent asthma with acute exacerbation; Subcutaneous emphysema resulting from a procedure, sequela; Tobacco use disorder; Marijuana use; Polysubstance abuse ([facility]); Gastroesophageal reflux disease, unspecified whether esophagitis present; PUD (peptic ulcer disease); Moderate major depression ([facility]); Anxiety state; Simple endometrial hyperplasia without atypia; Normocytic anemia; Dysmenorrhea; Metrorrhagia Start: 03-14-2024 ambulatory Martinez Garcia MD Work Phone: Internal Medicine [facility] Start: 03-14-2024 Telephone encounter Martinez Garcia MD Work Phone: [facility] Comment on above: Refill Request; Futu re Appointment Start: 12-19-2023 Refill Martinez Garcia MD Work Phone: [facility] Comment on above: Refill Request Start: 12-08-2023 End: 12-08-2023 Emergency department patient visit [facility] Work Phone: Start: 12-08-2023 End: 12-08-2023 Patient encounter procedure Nicci Neal APRN.CNP Work Phone: [facility] Comment on above: Pain in both lower l egs (Primary Dx); Discoloration of skin of lower leg Start: 11-14-2023 End: 11-14-2023 Emergency department patient visit [facility] Work Phone: Start: 08-11-2023 End: 08-11-2023 Subsequent hospital visit by physician [facility] Work Phone: Radiology Comment on above: Dysmenorrhea [N94.6] Start: 08-04-2023 End: 08-04-2023 Patient encounter procedure Janelle Leahy DIRECTOR OF CARDIAC REHABILITATION.CNM Work Phone: OB/Gynecology Comment on above: Dysmenorrhea (Primar y Dx); Menorrhagia, premenopausal; Pelvic pain in female Start: 08-01-2023 Refill Martinez Garcia MD Work Phone: [facility] [place] Comment on above: Refill Request Start: 08-01-2023 End: 08-01-2023 [facility] Start: 06-14-2023 End: 06-14-2023 [facility] Start: 02-18-2023 Refill Martinez Garcia MD Work Phone: [facility] Comment on above: Refill Request Start: 12-02-2022 Telephone encounter Angel Luis hawley MD Work Phone: Orthopaedics Comment on above: Patient Question Start: 11-30-2022 Patient Outreach Macy Guerrero RN Work Phone: Family Psychologist Management Comment on above: Transition Of Care ( TCM Initial Hospital Discharge 11/29/2022) Start: 11-24-2022 End: 11-29-2022 Evaluation and management of inpatient ANYI BULLOCK Facility:[facility] Start: 11-24-2022 Orders Only Angel Luis Hernández MD Work Phone: Orthopaedics Comment on above: Infection of hand (P rimary Dx) Start: 11-24-2022 End: 11-24-2022 [facility] Start: 11-22-2022 End: 11-22-2022 Patient encounter procedure Angel Luis Hernández MD Work Phone: Orthopaedics Comment on above: Carpal tunnel syndro me of left wrist (Primary Dx) Start: 11-10-2022 End: 11-10-2022 ambulatory UNKNOWN PROVIDER Facility:[facility] Start: 10-28-2022 Telephone encounter Angel Luis hawley MD Work Phone: Orthopaedics Comment on above: Schedule Surgery Start: 10-28-2022 End: 10-28-2022 Patient encounter procedure Angel Luis Hernández MD Work Phone: Orthopaedics Comment on above: Carpal tunnel syndro me, left Start: 10-13-2022 Telephone encounter Francy mejia APRN.OXYGEN FURNACE OPERATOR Work Phone: [facility] Comment on above: Results Start: 10-08-2022 End: 10-08-2022 [facility] Start: 10-08-2022 End: 10-08-2022 Patient encounter procedure Kelley Ramos PA-C Work Phone: [place] [facility] Comment on above: Syncope, unspecified syncope type (Primary Dx) Start: 08-10-2022 End: 08-10-2022 Patient encounter procedure Traci Celis APRN.OXYGEN FURNACE OPERATOR Work Phone: [place] [facility] Comment on above: Sinus congestion (Pr imary Dx); Acute cough Start: 06-25-2022 End: 06-25-2022 [facility] Start: 06-07-2022 End: 06-07-2022 Patient encounter procedure Lindsay Jose DIRECTOR OF CARDIAC REHABILITATION.OXYGEN FURNACE OPERATOR Work Phone: Cardiology Comment on above: Coronary artery dise ase involving lower [place] coronary artery of [place] heart without angina pectoris (Primary Dx); Primary hypertension; Hyperlipidemia, unspecified hyperlipidemia type; Palpitations; Tobacco use disorder, continuous; CARDOZA (dyspnea on exertion) Start: 05-05-2022 ambulatory Martinez Garcia MD Work Phone: Internal [facility] [place] Start: 05-05-2022 Telephone encounter Tyron may APRN.OXYGEN FURNACE OPERATOR Work Phone: [place] [facility] Comment on above: Results Start: 05-05-2022 End: 05-05-2022 [facility] Start: 03-10-2022 Refill Lindsay singleton APRN.OXYGEN FURNACE OPERATOR Work Phone: Cardiology Comment on above: Refill Request Start: 03-05-2022 Telephone encounter Francy mejia APRN.CNP Work Phone: [facility] Comment on above: Results Start: 03-05-2022 End: 03-05-2022 ambulatory Emg 850) Neurology Comment on above: EMG Start: 03-05-2022 End: 03-05-2022 Patient encounter procedure Emg 1 Neur Tim (Max Weight: 850) TIM [facility] Start: 03-03-2022 End: 03-03-2022 Patient encounter procedure Francy Bernard APRN.OXYGEN FURNACE OPERATOR Work Phone: [facility] Comment on above: Left elbow pain (Timoteo benton Dx); Skin sensation disturbance Start: 02-15-2022 Refill Martinez Garcia MD Work Phone: [facility] Comment on above: Refill Request Start: 02-01-2022 End: 02-01-2022 Subsequent hospital visit by physician [facility] Work Phone: Radiology Comment on above: Left elbow pain [M25 .522] Start: 02-01-2022 End: 02-01-2022 Patient encounter procedure Wm Rayo MD Work Phone: [facility] Comment on above: Left elbow pain (Timoteo benton Dx); Numbness of fingers Start: 01-27-2022 Telephone encounter Francy mejia APRN.OXYGEN FURNACE OPERATOR Work Phone: [facility] Comment on above: Results Start: 01-27-2022 End: 01-27-2022 Patient encounter procedure Francy Bernard APRN.OXYGEN FURNACE OPERATOR Work Phone: [facility] Comment on above: Fatigue, unspecified type (Primary Dx); Leukocytosis, unspecified type; Hypokalemia; Primary hypertension; Hyperlipidemia, unspecified hyperlipidemia type; Gastroesophageal reflux disease, unspecified whether esophagitis present Start: 11-14-2021 End: 11-14-2021 Subsequent hospital visit by physician Shan [facility] [place] Work Phone: Radiology Comment on above: Cough [R05.9] Start: 08-31-2018 Patient encounter procedure Lydia Jennings Facility: Start: 08-03-2018 Patient encounter procedure Lydia Jennings Facility: Start: 07-06-2018 Patient encounter procedure John Tarango Facility: Start: 06-08-2018 Patient encounter procedure John Tarango Facility: Start: 05-11-2018 Patient encounter procedure John Tarango Facility: Start: 05-08-2018 End: 05-08-2018 Emergency department patient visit Afshan Akin Glass Facility:[facility] Start: 05-03-2018 Patient encounter procedure John Tarango Facility: Start: 11-15-2017 Patient encounter procedure John Tarango Facility: Start: 09-29-2017 Emergency department patient visit Unknown PCP Facility:[facility] Start: 01-15-2011 End: 08-09-2012 Patient encounter status Martinez Garcia MD Work Phone: [place] Procedures Date Procedure Procedure Detail Performing Clinician Start: 06-18-2025 Lipid 1996 panel - S weston or Plasma Amita Pope DIRECTOR OF CARDIAC REHABILITATION.OXYGEN FURNACE OPERATOR Work Phone: Start: 03-27-2024 Adult depression scr eening assessment Martinez Garcia MD Work Phone: Start: 11-14-2023 Bacterial nucleic ac id assay Start: 11-14-2023 Chlamydia trachomati s (PCR) Start: 08-11-2023 Us transvaginal Megha Leahy DIRECTOR OF CARDIAC REHABILITATION.CNM Work Phone: Start: 06-14-2023 Measurement of occul t blood in stool specimen using immunoassay Start: 10-08-2022 Plain chest X-ray Start: 06-25-2022 X-ray of lumbar spin e, two or three views Start: 05-05-2022 CT of abdomen and pe lvis without contrast Start: 03-05-2022 Nerve conduction paris dies 5-6 studies Francy Bernard DIRECTOR OF CARDIAC REHABILITATION.OXYGEN FURNACE OPERATOR Work Phone: Start: 02-01-2022 Radex elbow complete minimum 3 views Wm Rayo MD Work Phone: Start: 01-27-2022 Lipid 1996 panel - S weston or Plasma Martinez Garcia MD Work Phone: Start: 11-14-2021 Radiologic exam ches t 2 views Traci Celis DIRECTOR OF CARDIAC REHABILITATION.OXYGEN FURNACE OPERATOR Work Phone: Start: 09-03-2021 Adult depression scr eening assessment Francy Bernard DIRECTOR OF CARDIAC REHABILITATION.OXYGEN FURNACE OPERATOR Work Phone: Start: 11-15-2017 Follow-up visit FOLLOW UP Serena Tarango Start: 03-18-2016 Mammography Francy mejia DIRECTOR OF CARDIAC REHABILITATION.OXYGEN FURNACE OPERATOR Work Phone: Plan of Treatment Date Care Activity Detail Author Start: 06-18-2030 Lipid panel Lipid Screening [place] Start: 06-18-2028 Diabetes Screening Diabetes Screening [place] Start: 01-03-2028 Diabetes Screening Diabetes Screening [place] Start: 12-28-2027 Diabetes Screening Diabetes Screening [place] Start: 01-27-2027 Lipid 1996 panel - Serum or Plasma Lipid Screening [place] Start: 01-27-2027 Lipid panel Lipid Screening [place] Start: 01-27-2027 LIPID SCREEN LIPID SCREEN [place] Start: 06-18-2026 Annual PCP Team Chronic Disease Visit Annual PCP Team Chronic Disease Visit [place] Start: 06-18-2026 Hepatitis B surface antibody level LDL Cholesterol [place] Start: 01-29-2026 Annual PCP Team Chronic Disease Visit Annual PCP Team Chronic Disease Visit [place] Start: 01-29-2026 Pneumococcal vaccination Pneumococcal Vaccine (2 of 2 - PCV) [place] Comment on above: Postponed from 04/10/2015 (Declined at t his time) Start: 01-29-2026 Screening for malignant neoplasm of colon Colorectal Cancer Screening [place] Comment on above: Postponed from 01/20/2021 (Declined at t his time) Start: 01-14-2026 Annual PCP Team Chronic Disease Visit Annual PCP Team Chronic Disease Visit [place] Start: 01-03-2026 Annual PCP Team Chronic Disease Visit Annual PCP Team Chronic Disease Visit [place] Start: 12-17-2025 BP Controlled (<130/80) BP Controlled (<130/80) [facility] in Start: 11-27-2025 DIABETES SCREEN DIABETES SCREEN [place] Start: 11-27-2025 Diabetes Screening Diabetes Screening [place] Start: 10-12-2025 DIABETES SCREEN DIABETES SCREEN [place] Start: 07-08-2025 Influenza vaccination [place] Start: 07-03-2025 End: 07-03-2025 Patient encounter procedure [facility] Comment on above: 6 month f/u 6 month f/u-med refi lls Start: 06-24-2025 End: 06-24-2025 Patient encounter procedure 06/24/2025 2:30 PM EDT Office Visit General Surgery [address] [place] [address] Beata Lundberg MD [address] [place] [id number] matthieu deficiency anemia, unspecified iron deficiency anemia type [D50.9]; Rectal bleeding [K62.5] General Surgery Comment on above: matthieu deficiency anemia, unspecified iron deficiency anemia type [D50.9]; Rectal bleeding [K62.5] Start: 06-23-2025 LIPID SCREEN LIPID SCREEN [place] Start: 06-18-2025 End: 09-16-2025 Cobalamin (Vitamin B12) [Mass/volume] in Serum or Plasma [place] Comment on above: Expected: 06/18/2025, Expires: Start: 06-18-2025 End: 09-16-2025 Comprehensive metabolic 2000 panel - Serum or Plasma [facility] Work Phone: Comment on above: Expected: 06/18/2025, Expires: Start: 06-18-2025 End: 09-16-2025 Iron and Iron binding capacity panel - Serum or Plasma [place] Comment on above: Expected: 06/18/2025, Expires: Start: 06-18-2025 End: 09-16-2025 LIPID PANEL, NONFASTING [place] Comment on above: Expected: 06/18/2025, Expires: 5 Start: 06-18-2025 End: 09-16-2025 Thyrotropin [Units/volume] in Serum or Plasma [place] Comment on above: Expected: 06/18/2025, Expires: 5 Start: 06-18-2025 End: 07-18-2026 XR Hand - left PA and Lateral and Oblique [place] Comment on above: Expected: 06/18/2025, Expires: 6 Start: 06-18-2025 End: 06-18-2025 Patient encounter procedure 06/18/2025 9:40 AM EDT Office Visit [facility] [place] [address] [facility] [place] [phone] Amita Pope APRN.OXYGEN FURNACE OPERATOR [address] [facility] [place] [phone] Rectal Bleeding; See Nurse Triage Note [facility] [place] Comment on above: Rectal Bleeding; See Nurse Triage Note Start: 05-06-2025 Influenza [facility] Comment on above: Postponed from 07/08/2024 (Declined at t his time) Start: 03-27-2025 Annual PCP Team Chronic Disease Visit Annual PCP Team Chronic Disease Visit [place] Start: 03-27-2025 Depression Screening Depression Screening [place] Start: 03-03-2025 DIABETES SCREEN DIABETES SCREEN [place] Start: 01-29-2025 End: 01-29-2025 Patient encounter procedure 01/29/2025 1:20 PM EDT Office Visit [facility] [place] [address] [place] [address] Amita Pope, DIRECTOR OF CARDIAC REHABILITATION.OXYGEN FURNACE OPERATOR [address] [facility] [place] [id number] 2 week f/u [facility] [place] Comment on above: 2 week f/u Start: 01-27-2025 DIABETES SCREEN DIABETES SCREEN [place] Start: 01-25-2025 End: 04-26-2025 BCR/ABL1 P210 AND P190 DIAGNOSTIC PCR BLOOD [place] Comment on above: Expected: 01/25/2025, Expires: Start: 01-25-2025 End: 04-26-2025 Ferritin [Mass/volume] in Serum or Plasma [place] Comment on above: Expected: 01/25/2025, Expires: Start: 01-25-2025 End: 04-26-2025 Iron and Iron binding capacity panel - Serum or Plasma [place] Comment on above: Expected: 01/25/2025, Expires: Start: 01-25-2025 End: 04-26-2025 MYELOPROLIFERATIVE NEOPLASM PANEL BLOOD [facility] Work Phone: Comment on above: Expected: 01/25/2025, Expires: Start: 01-25-2025 End: 01-25-2025 ambulatory 01/25/2025 1:30 PM EDT Visit (SP) Office Hematology/Oncology [address], [place] [phone] Devin Donald DO [address] [place] [address] 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 See TE 01/14/25 Family [facility] [place] Comment on above: Thrush and feels like Sinus Infection is coming back. See TE 01/14/25 Start: 01-10-2025 End: 04-11-2025 CBC W Auto Differential panel - Blood COMPLETE BLOOD COUNT AND DIFFERENTIAL Lab Routine Leukocytosis, unspecified type Expected: 01/10/2025, Expires: 04/11/2025 [facility] Work Phone: Comment on above: Expected: 01/10/2025, Expires: Start: 01-03-2025 End: 01-03-2025 Patient encounter procedure 01/03/2025 1:20 PM EST Office Visit [facility] [place] [address] [facility], [place] [phone] Amita Pope APRN.OXYGEN FURNACE OPERATOR [address] [place] [address] ER f/u for weakness, syncope, cough-[facility] ER 12/26/24 and [facility] on 12/28/24 (see phone encounter 01/02) [facility] [place] Comment on above: ER f/u for weakness, syncope, cough-[facility] ER 12/26/24 and [facility] on 12/28/24 (see phone encounter 01/02) Start: 08-04-2024 BP Controlled (<130/80) BP Controlled (<130/80) [facility] Start: 07-08-2024 Influenza vaccination [place] Start: 05-24-2024 End: 05-24-2024 Patient encounter procedure 05/24/2024 3:30 PM EDT Office Visit Vasculary Surgery [address] [place], [place] [phone] Raynaud's phenomenon without gangrene [I73.00] Vasculary Surgery Comment on above: Raynaud's phenomenon without gangrene [I 73.00] Start: 04-30-2024 End: 04-30-2024 Patient encounter procedure 04/30/2024 2:20 PM EDT Office Visit Family Medicine Tonya [address] [place], [place] [id number] Delores Chowdhury PA-C [address] [place] [address] 4 week follow up Family Medicine Tonya Comment on above: 4 week follow up Start: 04-24-2024 End: 04-24-2024 Patient encounter procedure 04/24/2024 3:30 PM EDT Office Visit OB/Gynecology [address] [place] [address] Lisandra Velazquez APRN.OXYGEN FURNACE OPERATOR [address] [place] [address] annual OB/Gynecology Comment on above: annual Start: 04-19-2024 End: 04-19-2024 Patient encounter procedure Vasculary Wiggins rgery Comment on above: Raynaud's phenomenon without gangrene [I 73.00] Start: 03-29-2024 End: 06-28-2024 Cobalamin (Vitamin B12) [Mass/volume] in Serum or Plasma VITAMIN B12 Lab Routine Normocytic anemia Dysmenorrhea Metrorrhagia Expected: 03/29/2024, Expires: 06/28/2024 [place] Comment on above: Expected: 03/29/2024, Expires: 4 Start: 03-29-2024 End: 06-28-2024 Ferritin [Mass/volume] in Serum or Plasma FERRITIN Lab Routine PUD (peptic ulcer disease) Normocytic anemia Dysmenorrhea Metrorrhagia Expected: 03/29/2024, Expires: 06/28/2024 [place] Comment on above: Expected: 03/29/2024, Expires: 4 Start: 03-29-2024 End: 06-28-2024 Folate [Mass/volume] in Serum or Plasma FOLATE, SERUM Lab Routine Normocytic anemia Dysmenorrhea Metrorrhagia Expected: 03/29/2024, Expires: 06/28/2024 [place] Comment on above: Expected: 03/29/2024, Expires: Start: 03-29-2024 End: 06-28-2024 Iron and Iron binding capacity panel - Serum or Plasma IRON AND TIBC Lab Routine PUD (peptic ulcer disease) Normocytic anemia Dysmenorrhea Metrorrhagia Expected: 03/29/2024, Expires: 06/28/2024 [place] Comment on above: Expected: 03/29/2024, Expires: Start: 03-29-2024 End: 06-28-2024 Thyrotropin [Units/volume] in Serum or Plasma THYROID STIMULATING HORMONE Lab Routine Normocytic anemia Dysmenorrhea Metrorrhagia Expected: 03/29/2024, Expires: 06/28/2024 [place] Comment on above: Expected: 03/29/2024, Expires: Start: 03-27-2024 End: 06-26-2024 CBC W Auto Differential panel - Blood COMPLETE BLOOD COUNT AND DIFFERENTIAL Lab Routine 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) Primary hypertension Anxiety state Expected: 03/27/2024, Expires: 06/26/2024 [place] Comment on above: Expected: 03/27/2024, Expires: Start: 03-27-2024 End: 06-26-2024 Comprehensive metabolic 2000 panel - Serum or Plasma COMPREHENSIVE METABOLIC PANEL Lab Routine 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) Primary hypertension Anxiety state Expected: 03/27/2024, Expires: 06/26/2024 [place] Comment on above: Expected: 03/27/2024, Expires: Start: 03-27-2024 End: 06-26-2024 Lipid 1996 panel - Serum or Plasma LIPID PANEL BASIC Lab Routine 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) Mixed hyperlipidemia Expected: 03/27/2024, Expires: 06/26/2024 [place] Comment on above: Expected: 03/27/2024, Expires: Start: 03-27-2024 End: 06-26-2024 Magnesium [Mass/volume] in Serum or Plasma MAGNESIUM Lab Routine 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) Gastroesophageal reflux disease, unspecified whether esophagitis present Expected: 03/27/2024, Expires: 06/26/2024 [place] Comment on above: Expected: 03/27/2024, Expires: 4 Start: 03-27-2024 End: 03-27-2024 Patient encounter procedure 03/27/2024 1:00 PM EDT Office Visit Family Medicine Tonya [address] [place] [address] Delores Chowdhury PA-C [address] [place] [address] yearly physical Family [facility] [place] Comment on above: yearly physical Start: 03-13-2024 HPV TESTING HPV TESTING [place] Start: 03-13-2024 PAP TESTING PAP TESTING [place] Start: 03-13-2024 Screening for malignant neoplasm of cervix [place] Start: 12-08-2023 [facility] Start: 11-14-2023 End: 11-14-2023 [facility] Start: 11-14-2023 Chlamydia trachomatis (PCR) Chlamydia trachomatis (PCR) [facility] Start: 11-14-2023 Neisseria gonorrhoeae (PCR) Neisseria gonorrhoeae (PCR) [facility] Start: 11-07-2023 Behavioral Health Screening Behavioral Health Screening [place] Start: 11-07-2023 Depression Assessment Depression Assessment [place] Start: 10-15-2023 DIABETES SCREEN DIABETES SCREEN [place] Start: 10-12-2023 ANNUAL PCP TEAM CHRONIC DISEASE VISIT ANNUAL PCP TEAM CHRONIC DISEASE VISIT [place] Start: 07-08-2023 Covid-19 Vaccine ( season) Covid-19 Vaccine () [place] Start: 07-08-2023 Influenza vaccination [place] Start: 03-03-2023 ANNUAL PCP TEAM CHRONIC DISEASE VISIT ANNUAL PCP TEAM CHRONIC DISEASE VISIT [place] Start: 01-27-2023 ANNUAL PCP TEAM CHRONIC DISEASE VISIT ANNUAL PCP TEAM CHRONIC DISEASE VISIT [place] Start: 01-27-2023 BP CONTROLLED (<130/80) BP CONTROLLED (<130/80) [facility] in Start: 01-27-2023 Hepatitis B surface antibody level LDL CHOLESTEROL [place] Start: 11-24-2022 [facility] Start: 11-07-2022 DEPRESSION ASSESSMENT DEPRESSION ASSESSMENT [place] Start: 10-13-2022 End: 12-13-2022 CBC W Auto Differential panel - Blood CBC + DIFF Lab Routine Leukocytosis, unspecified type Expected: 10/13/2022, Expires: 12/13/2022 [facility] Work Phone: Comment on above: Expected: 10/13/2022, Expires: 3 Start: 10-08-2022 Blood chemistry [facility] Work Phone: Start: 10-08-2022 End: 10-08-2022 [facility] Start: 09-03-2022 Adult depression screening assessment DEPRESSION SCREENING [place] Start: 09-03-2022 COVID-19 VACCINE (#1) COVID-19 VACCINE (#1) [place] Comment on above: Postponed from 01/20/1981 (Declined at t his time) Postponed from 07/23 (Declined at this time) Start: 09-03-2022 COVID-19 VACCINE (1) COVID-19 VACCINE (1) [place] Comment on above: Postponed from 01/20/1981 (Declined at t his time) Start: 07-08-2022 Influenza vaccination [place] Start: 05-06-2022 Influenza vaccination INFLUENZA (#1) [place] Comment on above: Postponed from 07/08/2021 (Declined at t his time) Start: 03-05-2022 End: 03-05-2023 CBC W Auto Differential panel - Blood CBC + DIFF Lab Routine Anemia, unspecified type Expected: 03/05/2022, Expires: 03/05/2023 [facility] Work Phone: Comment on above: Expected: 03/05/2022, Expires: 3 Start: 03-05-2022 End: 03-05-2023 FERRITIN BLD FERRITIN BLD Lab Routine Anemia, unspecified type Expected: 03/05/2022, Expires: 03/05/2023 [facility] Work Phone: Comment on above: Expected: 03/05/2022, Expires: 3 Start: 03-05-2022 End: 03-05-2023 Folate [Mass/volume] in Serum or Plasma FOLATE SERUM Lab Routine Anemia, unspecified type Expected: 03/05/2022, Expires: 03/05/2023 [facility] Work Phone: Comment on above: Expected: 03/05/2022, Expires: 3 Start: 03-05-2022 End: 03-05-2023 Hemoglobin.gastrointestinal .lower [Presence] in Stool by Immunoassay FECAL OCCULT BLOOD TEST Lab Routine Anemia, unspecified type Expected: 03/05/2022, Expires: 03/05/2023 [facility] Work Phone: Comment on above: Expected: 03/05/2022, Expires: 3 Start: 03-05-2022 End: 03-05-2023 IRON + TIBC IRON + TIBC Lab Routine Anemia, unspecified type Expected: 03/05/2022, Expires: 03/05/2023 [facility] Work Phone: Comment on above: Expected: 03/05/2022, Expires: 3 Start: 03-05-2022 End: 03-05-2023 VITAMIN B12 BLOOD VITAMIN B12 BLOOD Lab Routine Anemia, unspecified type Expected: 03/05/2022, Expires: 03/05/2023 [facility] Work Phone: Comment on above: Expected: 03/05/2022, Expires: 3 Start: 01-27-2022 End: 03-29-2022 Bacteria identified in Urine by Culture URINE CULTURE Microbiology Routine Abnormal urinalysis Expected: 01/27/2022, Expires: 03/29/2022 [facility] Work Phone: Comment on above: Expected: 01/27/2022, Expires: 2 Start: 01-27-2022 End: 03-29-2022 Basic metabolic 2000 panel - Serum or Plasma BASIC METABOLIC PNL Lab Routine Hypokalemia Expected: 01/27/2022, Expires: 03/29/2022 [facility] Work Phone: Comment on above: Expected: 01/27/2022, Expires: 2 Start: 01-27-2022 End: 03-29-2022 CBC W Auto Differential panel - Blood [facility] Work Phone: Comment on above: Expected: 01/27/2022, Expires: 2 Start: 01-27-2022 End: 03-29-2022 Comprehensive metabolic 2000 panel - Serum or Plasma [facility] Work Phone: Comment on above: Expected: 01/27/2022, Expires: 2 Start: 01-27-2022 End: 03-29-2022 LIPID PANEL, NONFASTING [facility] Work Phone: Comment on above: Expected: 01/27/2022, Expires: 2 Start: 01-27-2022 End: 03-29-2022 Magnesium [Mass/volume] in Serum or Plasma [facility] Work Phone: Comment on above: Expected: 01/27/2022, Expires: 2 Start: 01-27-2022 End: 03-29-2022 T4 FREE/FREE THYROX [facility] Work Phone: Comment on above: Expected: 01/27/2022, Expires: 2 Start: 01-27-2022 End: 03-29-2022 Thyrotropin [Units/volume] in Serum or Plasma [facility] Work Phone: Comment on above: Expected: 01/27/2022, Expires: 2 Start: 01-27-2022 End: 03-29-2022 Urinalysis complete panel - Urine [facility] Work Phone: Comment on above: Expected: 01/27/2022, Expires: 2 Start: 11-07-2021 DEPRESSION ASSESSMENT DEPRESSION ASSESSMENT [place] Start: 06-23-2021 Hepatitis B surface antibody level LDL CHOLESTEROL [place] Start: 01-20-2021 COLOGUARD (FIT-DNA) COLOGUARD (FIT-DNA) [place] Start: 01-20-2021 Colonoscopy COLONOSCOPY [place] Start: 01-20-2021 COLORECTAL CANCER SCREENING COLORECTAL CANCER SCREENING [place] Start: 01-20-[address] COLONOGRAPHY [place] Start: 03-16-2021 FECAL OCCULT BLOOD FECAL OCCULT BLOOD [place] Start: 01-20-2021 Screening for malignant neoplasm of colon [place] Start: 01-20-2021 SIGMOIDOSCOPY SIGMOIDOSCOPY [place] Start: 03-18-2017 Mammography [place] Start: 03-18-2017 Screening for malignant neoplasm of breast Mammogram Screening [place] Start: 04-10-2015 PNEUMOCOCCAL (2 - PCV) PNEUMOCOCCAL (2 - PCV) [facility] Start: 04-10-2015 Pneumococcal vaccination [facility] Start: 01-20-2006 Zoledronic acid therapy ALPHA-1 ANTITRYPSIN DEFICIENCY SCREENING [place] Start: 01-20-1995 Hepatitis B Vaccine (1 of 3 - 19+ 3-dose series) Hepatitis B Vaccine (1 of 3 - 19+ 3-dose series) [place] Start: 01-20-1995 [facility] Start: 01-20-1994 BP CONTROLLED (<130/80) BP CONTROLLED (<130/80) [facility] Start: 01-20-1994 Depression Screening Depression Screening [place] Start: 1975 COVID-19 VACCINE (#1) COVID-19 VACCINE (#1) [place] Start: 1975 HEPATITIS B (1 of 3 - 3-dose series) HEPATITIS B (1 of 3 - 3-dose series) [place] Start: 1976 Hepatitis B Vaccine (1 of 3 - 3-dose series) Hepatitis B Vaccine (1 of 3 - 3-dose series) [place] CBC W Ordered Manual Differential panel - Blood PATHOLOGIST INTERPRETATION WITH CBC AND DIFF Lab Routine Leukocytosis, unspecified type Thrombocytosis 01/25/2025 2:11 PM EDT [place] Chlamydia trachomatis [facility] End: 03-14-2026 DBT Breast - bilateral screening ROB SCREENING [facility] Radiology Routine Encounter for screening mammogram for breast cancer 1 Occurrences starting 02/12/2025 until 03/14/2026 [facility] Work Phone: Comment on above: 1 Occurrences starting 02/12/2025 until 03/14/2026 End: 03-03-2023 EMG(NEURO/NI) EMG(NEURO/NI) EMG Routine Left elbow pain Skin sensation disturbance 1 Occurrences starting 03/03/2022 until 03/03/2023 [facility] Work Phone: Comment on above: 1 Occurrences starting 03/03/2022 until 03/03/2023 End: 04-13-2025 MG Breast Screening ROB SCREENING Radiology Routine Encounter for screening mammogram for breast cancer 1 Occurrences starting 03/14/2024 until 04/13/2025 [facility] Work Phone: Comment on above: 1 Occurrences starting 03/14/2024 until 04/13/2025 Microscopic observat ion [Identifier] in Unspecified specimen by Gram stain Gram Stain [facility] Neisseria gonorrhoea e DNA [Presence] in Genital specimen by ARNOLDO with probe detection [facility] Patient Education [facility] Work Phone: Patient referral [facility] Work Phone: End: 06-04-2023 Screening mammography bi 2-view breast inc cad ROB SCREENING Radiology Routine Encounter for screening mammogram for breast cancer 1 Occurrences starting 05/05/2022 until 06/04/2023 [facility] Work Phone: Comment on above: 1 Occurrences starting 05/05/2022 until 06/04/2023 End: 03-27-2025 US Lower extremity artery - bilateral PVR LEG [facility] V[facility] Lab Routine Raynaud's phenomenon without gangrene 1 Occurrences starting 03/27/2024 until 03/27/2025 [facility] Work Phone: Comment on above: 1 Occurrences starting 03/27/2024 until 03/27/2025 End: 09-03-2024 Us transvaginal US FEMALE PELVIS TRANSVAG Radiology Routine Dysmenorrhea Menorrhagia, premenopausal 1 Occurrences starting 08/04/2023 until 09/03/2024 [facility] Work Phone: Comment on above: 1 Occurrences starting 08/04/2023 until 09/03/2024 End: 03-27-2025 US.doppler Extremity arteries - bilateral for physiologic artery study PVR ANK PRESS [facility] Vascular Lab Routine Raynaud's phenomenon without gangrene 1 Occurrences starting 03/27/2024 until 03/27/2025 [place] Comment on above: 1 Occurrences starting 03/27/2024 until 03/27/2025 Wound Culture Wound Culture [facility] c Immunizations Immunization Date Immunization Notes Care Provider Zaida robledo 11-10-2018 hepatitis A vaccine, adult dosage Francy Bernard DIRECTOR OF CARDIAC REHABILITATION.OXYGEN FURNACE OPERATOR Work Phone: [place] 09-27-2018 influenza virus vacc ine, unspecified formulation Martinez Garcia MD Work Phone: [place] 04-10-2014 pneumococcal Conjuga te, unspecified formulation Martinez Garcia MD Work Phone: [place] 04-10-2014 pneumococcal polysaccharide vaccine, 23 valent Francy Bernard DIRECTOR OF CARDIAC REHABILITATION.OXYGEN FURNACE OPERATOR Work Phone: [place] 04-10-2014 [facility]: 04-10-2014 pneumococcal vaccine , unspecified formulation [facility] Payers Date Payer Category Payer Unknown [employer] [id number] 2024-Present [phone] [address] [place] [address] Other [id number] 2024 Self-pay [id number] 2015 Medicaid [id number] 2015 Medicaid [employer] [id number] 2015-Present [phone] [address] [place] [address] Medicaid [id number] 2015 Medicaid [id number] 2015 Unknown [id number] Unknown [id number] Unknown [id number] Unknown [id number] Unknown [id number] Unknown [id number] Unknown [id number] Unknown [id number] Unknown [id number] Unknown [id number] Unknown [id number] Unknown [id number] Unknown [id number] Unknown [id number] Unknown [id number] Unknown [id number] Unknown [id number] Social History Date Type Detail Facility Start: 01-20-1991 End: 01-14-2025 Tobacco smoking status MNIS Smokes tobacco daily [place] Work Phone: Start: 01-20-1991 History of tobacco use Cigarette Smo ker [place] Work Phone: Start: 12-07-2021 End: 06-18-2025 Alcohol intake Current non-drinker of alcohol (finding) [place] Start: 05-05-2020 End: 09-17-2020 History SDOH Alcohol Frequency 1 [place] Start: 09-17-2020 History SDOH Alcohol Std Drinks 98 [place] Start: 05-05-2020 End: 06-17-2020 History SDOH Social Connections Phone 2 [place] Start: 05-05-2020 History SDOH Social Connections Living 5 [place] Start: 05-05-2020 End: 06-17-2020 History SDOH Physical Activity DPW 3 [place] Start: 05-05-2020 History SDOH Housing Places Lived 4 [place] Start: 05-05-2020 Education 21 [place] Start: 07-21-2020 End: 09-17-2022 Tobacco Comment Father smoked in childhood home, currently lives with a smoker who is willing to quit with patient. [place] Start: 1975 Sex Assigned At Not on file C [facility] Start: 10-15-2021 End: 10-08-2022 Exposure to SARS-CoV-2 (event) Not sure [place] Start: 05-05-2022 End: 12-08-2023 Tobacco smoking status NHIS Unknown if ever smoked [facility] Start: 06-18-2020 None [facility] Start: 06-18-2020 Spouse/ Signif icant Other [facility] Start: 03-15-2021 Cigarettes [facility] Start: 1975 Sex Assigned At Female [facility] Start: 07-21-2020 End: 06-18-2025 Cigarettes smoked current (pack per day) - Reported 1 [place] Start: 07-21-2020 End: 01-14-2025 Tobacco use and exposure Smokeless tobacco non-user [place] Work Phone: Start: 05-05-2020 End: 06-18-2025 Social connection and isolation panel [place] Do you belong to any clubs or organizations such as bahai groups, unions, fraternal or athletic groups, or school groups? No [place] Are you now , , , , never or living with a partner? [place] How often to you hav e a drink containing alcohol? Never [place] Work Phone: Start: 10-08-2012 How many standard drinks containing alcohol do you have on a typical day? Patient refused [place] Work Phone: How hard is it for y ou to pay for the very basics like food, housing, medical care, and heating Somewhat hard [place] Do you feel stress - tense, restless, nervous, or anxious, or unable to sleep at night because your mind is troubled all the time - these days [OSQ] Very much [facility] (I/We) worried wheth er (my/our) food would run out before (I/we) got money to buy more. Sometimes true [place] In the past 12 month s, was there a time when you were not able to pay the mortgage or rent on time? Yes [place] How hard is it for y ou to pay for the very basics like food, housing, medical care, and heating Very hard [place] (I/We) worried wheth er (my/our) food would run out before (I/we) got money to buy more. Often true [place] NEGATED: Highlighted row [facility] Functional Status Date Assessment Result Facility 11-29-2022 Are you deaf, or do you have serious difficulty hearing No 11/29/2022 9:41 AM Leon Nascimento, DULCE No [place] 11-29-2022 Are you blind, or do you have serious difficulty seeing, even when wearing glasses No 11/29/2022 9:41 AM Leon Nascimento, DULCE No [place] 11-29-2022 Do you have serious difficulty walking or climbing stairs Yes 11/29/2022 9:41 AM Leon Nascimento, DULCE Yes [place] 11-29-2022 Do you have difficul ty dressing or bathing No 11/29/2022 9:41 AM Leon Nascimento, RN No [place] 11-29-2022 Because of a physica l, mental, or emotional condition, do you have difficulty doing errands alone such as visiting a physician's office or shopping No 11/29/2022 9:41 AM Leon Nascimento, DULCE No [place] Mental Status Date Assessment Result Facility 08-01-2023 Cognitive function Level Of Cons ciousness Awake;Alert;Appropriate [facility] Work Phone: 11-29-2022 Because of a physica l, mental, or emotional condition, do you have serious difficulty concentrating, remembering, or making decisions No 11/29/2022 9:41 AM Leon Nascimento RN No [place] 10-08-2022 Cognitive function Level Of Cons ciousness Awake;Alert;Appropriate;Fol lows Commands [facility] Work Phone: Clinical Notes 08-30-2018 to 06-20-2025 Telephone Encounter - Arabella Reyes MA - 06/20/2025 1:58 PM EDTTelephone Encounter - Arabella Reyes MA - 06/20/2025 1:58 PM EDTTelephone Encounter - Debbie Nichols MA - 06/20/2025 1:34 PM EDT Note Date & Type Note Facility 06-20-2025 Telephone encounter Note Letter mailed to pt home of results. Arabella Reyes MA [place] 06-20-2025 Miscellaneous Notes Letter mailed to pt home of results. Arabella Reyes MA Attempted to contact patient, no answer, mailbox is full. Debbie Nichols MA June 20, 2025 1:35 PM ----- Message from Amita Pope sent at 06/20/2025 8:34 AM EDT ----- Please let patient know that LDL, bad cholesterol, is very high at 185. Big jump from 85 to 185. Watch the saturated fats in your diet by eliminating fried foods and choosing only lean meat/skim dairy products. Your HDL, good cholesterol, is a little low. Try to add into your diet whole grains, purple grape juice, nuts or peanut butter, and soy. That will raise your protection against heart disease. Also, continue atorvastatin. Blood counts are high. Iron level improved some. B12 is very low at 173, should be over 350. Please consider 1000 mcg of B12 daily. You can purchase this [id number]. It is widely available in most stores and inexpensive. No diabetes, thyroid normal, glucose is actually on the lower side. Kidney function improved. ----- Message ----- From: Lab, Background User Sent: 06/18/2025 4:31 PM EDT To: Amita Pope APRN.OXYGEN FURNACE OPERATOR Please let patient know that LDL, bad cholesterol, is very high at 185. Big jump from 85 to 185. Watch the saturated fats in your diet by eliminating fried foods and choosing only lean meat/skim dairy products. Your HDL, good cholesterol, is a little low. Try to add into your diet whole grains, purple grape juice, nuts or peanut butter, and soy. That will raise your protection against heart disease. Also, continue atorvastatin. Blood counts are high. Iron level improved some. B12 is very low at 173, should be over 350. Please consider 1000 mcg of B12 daily. You can purchase this [id number]. It is widely available in most stores and inexpensive. No diabetes, thyroid normal, glucose is actually on the lower side. Kidney function improved. documented in this encounter [place] 06-20-2025 Telephone encounter Note Attempted to contact patient, no answer, mailbox is full. Debbie Nichols MA June 20, 2025 1:35 PM [place] 06-20-2025 Telephone encounter Note ----- Message from Amita Pope sent at 06/20/2025 8:34 AM EDT ----- Please let patient know that LDL, bad cholesterol, is very high at 185. Big jump from 85 to 185. Watch the saturated fats in your diet by eliminating fried foods and choosing only lean meat/skim dairy products. Your HDL, good cholesterol, is a little low. Try to add into your diet whole grains, purple grape juice, nuts or peanut butter, and soy. That will raise your protection against heart disease. Also, continue atorvastatin. Blood counts are high. Iron level improved some. B12 is very low at 173, should be over 350. Please consider 1000 mcg of B12 daily. You can purchase this [id number]. It is widely available in most stores and inexpensive. No diabetes, thyroid normal, glucose is actually on the lower side. Kidney function improved. ----- Message ----- From: Lab, Background User Sent: 06/18/2025 4:31 PM EDT To: Amita Pope APRN.OXYGEN FURNACE OPERATOR [place] 06-20-2025 Progress note Formatting of t his note might be different from the original. Please let patient know that LDL, bad cholesterol, is very high at 185. Big jump from 85 to 185. Watch the saturated fats in your diet by eliminating fried foods and choosing only lean meat/skim dairy products. Your HDL, good cholesterol, is a little low. Try to add into your diet whole grains, purple grape juice, nuts or peanut butter, and soy. That will raise your protection against heart disease. Also, continue atorvastatin. Blood counts are high. Iron level improved some. B12 is very low at 173, should be over 350. Please consider 1000 mcg of B12 daily. You can purchase this [id number]. It is widely available in most stores and inexpensive. No diabetes, thyroid normal, glucose is actually on the lower side. Kidney function improved. [place] 06-18-2025 History of Present illness Narrative Radiology Service Progress Note PATIENT NAME: Bev Webb DATE OF SERVICE: June 18, 2025 TIME: 10:31 AM PATIENT IDENTITY VERIFICATION COMPLETED USING TWO (2) IDENTIFIERS: Name and Date of confirmed by patient verbally. FALL SCREENING: Has the patient had 2 falls in the last year or 1 fall with injury or currently using an Ambulatory Assistive Device (Walker, Cane, Wheelchair, Crutches, etc.)? No PATIENT GENDER DATA: Assigned female at . status: : No status: NO. PATIENT RELEVANT IMPLANT DATA REVIEWED: Yes PATIENT PRESENTS WITH AN IMPLANTABLE OR ATTACHED STUDENT LIFE ADVISOR: No RADIOLOGY DEPARTMENT: General X-ray: Exam(s) Completed: Upper Extremity X-Ray(s): Hand, left PERIPHERAL IV DATA: Not applicable SIGNED BY: RT Josy(R) June 18, 2025 10:31 AM documented in this encounter [place] 06-18-2025 Note HNO ID: [id number] Author: ADRIANNA CONNELLY RT(Joey) Service: ? Author Type: Plant Protection Officer Type: Progress Notes Filed: 06/18/2025 10:38 Note Text: Radiology Service Progress Note PATIENT NAME: Bev Webb DATE OF SERVICE: June 18, 2025 TIME: 10:31 AM PATIENT IDENTITY VERIFICATION COMPLETED USING TWO (2) IDENTIFIERS: Name and Date of confirmed by patient verbally. FALL SCREENING: Has the patient had 2 falls in the last year or 1 fall with injury or currently using an Ambulatory Assistive Device (Walker, Cane, Wheelchair, Crutches, etc.)? No PATIENT GENDER DATA: Assigned female at . status: : No status: NO. PATIENT RELEVANT IMPLANT DATA REVIEWED: Yes PATIENT PRESENTS WITH AN IMPLANTABLE OR ATTACHED STUDENT LIFE ADVISOR: No RADIOLOGY DEPARTMENT: General X-ray: Exam(s) Completed: Upper Extremity X-Ray(s): Hand, left PERIPHERAL IV DATA: Not applicable SIGNED BY: RT Josy(R) June 18, 2025 10:31 AM [facility] 06-18-2025 Note Addended by: AMITA POPE on: 06/18/2025 10:12 AM Modules accepted: Orders [place] 06-18-2025 Miscellaneous Notes Addended by: AMITA POPE on: 06/18/2025 10:12 AM Modules accepted: Orders documented in this encounter [place] 06-18-2025 Instructions Amita Pope APRN.CNP - 06/18/2025 10:07 AM EDT - Have a blood draw today for a complete blood count (CBC), kidney panel, and routine screening labs. - Be referred to general surgery for both an upper endoscopy and a colonoscopy to evaluate your bleeding and any scar tissue. - Apply the prescribed metronidazole gel to your facial acne once a day. - Continue taking your iron tablet as you have been. documented in this encounter [place] 06-18-2025 Note HNO ID: [id number] Author: AMITA POPE APRN.CNP Service: ? Author Type: Nurse Practitioner Type: Progress Notes Filed: 06/18/2025 10:12 Note Text: This is a 50 year old female who presents today with: Patient presents with: Rectal Bleeding Hemorrhoids HISTORY OF PRESENT ILLNESS: Bev Webb is a 50 year old female. Patient presents with: Rectal Bleeding Hemorrhoids Bev Webb is a 50-year-old female with a history of emphysema, anemia, IBS, and colitis, presenting for evaluation of hematochezia and abdominal pain. Hematochezia: - Bev noted significant hematochezia yesterday, described as more severe than previous episodes associated with hemorrhoids. - Bev observed a blood clot on toilet paper. - Bev reports rectal pain described as shoving a needle yesterday. - Bev has a known external hemorrhoid. - Bev denies recent dietary changes. Abdominal Pain: - Bev experienced cramping abdominal pain during the episode of hematochezia, described as everything just cramped. - Bev reports chronic right-sided abdominal pain. - Bev's history of exploratory surgery in her 20s revealed bowel adhesions to the stomach lining, which were but not re-evaluated since. - Bev denies current abdominal pain. Dysphagia: - Occasional dysphagia with slow and painful swallowing. - Bev has a history of hernia repair with associated epigastric discomfort. Nausea: - Chronic nausea, no emesis. Emphysema: - Chronic dyspnea, cough, and wheezing; no changes in symptoms. - Bev denies chest pain or palpitations. Anemia: - Bev reports fatigue. - Bev is adherent to iron supplementation. Weight Gain: - Recent weight gain attributed to inactivity. Joint Pain: - Chronic left hip pain x5 years. - Bev denies new joint pain or swelling. Menopause: - Bev is experiencing hot flashes and acne. - Bev reports emotional lability, stating I just like wanted to cry for no reason. Hx of MRSA infection in left carpal tunnel release- CMC joint pain and swelling since then PAST MEDICAL HISTORY: PAST MEDICAL HISTORY Diagnosis Date Abnormal mammogram, unspecified LEFT BREAST Abnormal Pap smear and cervical HPV (human papillomavirus) CAD (coronary artery disease) 2103 diffuse moderate CAD in the left main and RCA-40-50%, seeing Dr. Chase Centrilobular emphysema (HCC) Chronic cholecystitis 08/24/07 Chronic depressive personality disorder Chronic gastric ulcer without mention of hemorrhage, perforation, without mention of obstruction COPD with chronic bronchitis (HCC) Generalized anxiety disorder HTN (hypertension) Hyperlipidemia Incisional hernia without mention of obstruction or gangrene Irritable bowel syndrome Lumbago PONV (postoperative nausea and vomiting) Raynaud's phenomenon (by history or observed) Tobacco use disorder, continuous Daily smoker since age 16. PAST SURGICAL HISTORY Procedure Laterality Date APPENDECTOMY ENDOMETRIAL BX W/WO ENDOCERVIX BX W/O DILAT SPX 01/01/2009 Menorrhagia ESOPHAGOGASTRODUODENOSCOPY TRANSORAL DIAGNOSTIC 09/26/2012 EGD EXC BREAST LES PREOP PLMT RAD MARKER OPEN 1 LES 08/29/2009 left breast HEART CATHETERIZATION 11/07/2013 IMPLANT MESH OPN HERNIA RPR/DEBRIDEMENT CLOSURE 07/01/2008 LAPAROSCOPIC APPENDECTOMY LAPS SURG CHOLECYSTECTOMY W/CHOLANGIOGRAPHY 08/24/2007 LIG/TRNSXJ FLP TUBE ABDL/VAG APPR UNI/BI PREOP PLACEMENT NEEDLE LOC 08/29/2009 left breast REP INIT INCI/ VENTRAL HERNIA 11/27/2020 REPAIR FIRST ABDOMINAL WALL HERNIA 07/01/2008 REVISE MEDIAN N/CARPAL TUNNEL SURG Left 11/10/2022 Left CTR SEPTOPLASTY/SUBMUCOUS RESECJ W/WO CARTILAGE GRF 2001 +/- Tim-Andre STEREOTACTIC CORE BIOPSY 07/09/2009 LEFT BREAST ALLERGIES Doxycycline, Entex [Phenylephrine-Guaifenesin], Erythromycin, Flexeril [Cyclobenzaprine Hcl], Omnicef [Cefdinir], Penicillin G, Risperdal [Risperidone], Ultram [Tramadol Hcl], and Valtrex [Valacyclovir Hcl] MEDICATIONS Current Outpatient Medications Medication Sig venlafaxine ER (EFFEXOR XR) 150 mg 24 hr capsule Take 1 capsule by mouth once daily. in addition to Venlafaxine 50 mg tablet daily cetirizine (ZYRTEC) 10 mg tablet Take 1 tablet by mouth once daily. gabapentin (NEURONTIN) 400 mg capsule Take 1 capsule by mouth three times a day for 180 days. ferrous sulfate 325 mg (65 mg iron) tablet Take 1 tablet by mouth once daily. venlafaxine (EFFEXOR) 50 mg tablet Take 1 tablet by mouth once daily. pantoprazole DR (PROTONIX) 40 mg tablet TAKE 1 TABLET BY MOUTH ON AN EMPTY STOMACH 1/2 HOUR BEFORE A MEAL TWICE DAILY albuterol HFA (VENTOLIN HFA) 90 mcg/actuation inhaler Inhale 2 Puffs as instructed every 4 hours as needed for wheezing/shortness of breath. nitroglycerin sublingual (NITROQUICK) 0.4 mg SL tablet Dissolve 1 tablet under the tongue every 5 minutes as needed for chest pain. atorvastatin (LIPITOR) 40 mg tablet Take 1 tablet by mouth once daily. ac (more content not included)... [facility] 06-18-2025 History of Present illness Narrative This is a 50 year old female who presents today with: Patient presents with: Rectal Bleeding Hemorrhoids HISTORY OF PRESENT ILLNESS: Bev Webb is a 50 year old female. Patient presents with: Rectal Bleeding Hemorrhoids Bev Webb is a 50-year-old female with a history of emphysema, anemia, IBS, and colitis, presenting for evaluation of hematochezia and abdominal pain. Hematochezia: - Bev noted significant hematochezia yesterday, described as more severe than previous episodes associated with hemorrhoids. - Bev observed a blood clot on toilet paper. - Bev reports rectal pain described as shoving a needle yesterday. - Bev has a known external hemorrhoid. - Bev denies recent dietary changes. Abdominal Pain: - Bev experienced cramping abdominal pain during the episode of hematochezia, described as everything just cramped. - Bev reports chronic right-sided abdominal pain. - Bev's history of exploratory surgery in her 20s revealed bowel adhesions to the stomach lining, which were but not re-evaluated since. - Bev denies current abdominal pain. Dysphagia: - Occasional dysphagia with slow and painful swallowing. - Bev has a history of hernia repair with associated epigastric discomfort. Nausea: - Chronic nausea, no emesis. Emphysema: - Chronic dyspnea, cough, and wheezing; no changes in symptoms. - Bev denies chest pain or palpitations. Anemia: - Bev reports fatigue. - Bev is adherent to iron supplementation. Weight Gain: - Recent weight gain attributed to inactivity. Joint Pain: - Chronic left hip pain x5 years. - Bev denies new joint pain or swelling. Menopause: - Bev is experiencing hot flashes and acne. - Bev reports emotional lability, stating I just like wanted to cry for no reason. Hx of MRSA infection in left carpal tunnel release- CMC joint pain and swelling since then PAST MEDICAL HISTORY: PAST MEDICAL HISTORY Diagnosis Date Abnormal mammogram, unspecified LEFT BREAST Abnormal Pap smear and cervical HPV (human papillomavirus) CAD (coronary artery disease) 2103 diffuse moderate CAD in the left main and RCA-40-50%, seeing Dr. Chase Centrilobular emphysema (HCC) Chronic cholecystitis 08/24/07 Chronic depressive personality disorder Chronic gastric ulcer without mention of hemorrhage, perforation, without mention of obstruction COPD with chronic bronchitis (HCC) Generalized anxiety disorder HTN (hypertension) Hyperlipidemia Incisional hernia without mention of obstruction or gangrene Irritable bowel syndrome Lumbago PONV (postoperative nausea and vomiting) Raynaud's phenomenon (by history or observed) Tobacco use disorder, continuous Daily smoker since age 16. PAST SURGICAL HISTORY Procedure Laterality Date APPENDECTOMY ENDOMETRIAL BX W/WO ENDOCERVIX BX W/O DILAT SPX 01/01/2009 Menorrhagia ESOPHAGOGASTRODUODENOSCOPY TRANSORAL DIAGNOSTIC 09/26/2012 EGD EXC BREAST LES PREOP PLMT RAD MARKER OPEN 1 LES 08/29/2009 left breast HEART CATHETERIZATION 11/07/2013 IMPLANT MESH OPN HERNIA RPR/DEBRIDEMENT CLOSURE 07/01/2008 LAPAROSCOPIC APPENDECTOMY LAPS SURG CHOLECYSTECTOMY W/CHOLANGIOGRAPHY 08/24/2007 LIG/TRNSXJ FLP TUBE ABDL/VAG APPR UNI/BI PREOP PLACEMENT NEEDLE LOC 08/29/2009 left breast REP INIT INCI/ VENTRAL HERNIA 11/27/2020 REPAIR FIRST ABDOMINAL WALL HERNIA 07/01/2008 REVISE MEDIAN N/CARPAL TUNNEL SURG Left 11/10/2022 Left CTR SEPTOPLASTY/SUBMUCOUS RESECJ W/WO CARTILAGE GRF 2001 +/- Akhil STEREOTACTIC CORE BIOPSY 07/09/2009 LEFT BREAST ALLERGIES Doxycycline, Entex [Phenylephrine-Guaifenesin], Erythromycin, Flexeril [Cyclobenzaprine Hcl], Omnicef [Cefdinir], Penicillin G, Risperdal [Risperidone], Ultram [Tramadol Hcl], and Valtrex [Valacyclovir Hcl] MEDICATIONS Current Outpatient Medications Medication Sig venlafaxine ER (EFFEXOR XR) 150 mg 24 hr capsule Take 1 capsule by mouth once daily. in addition to Venlafaxine 50 mg tablet daily cetirizine (ZYRTEC) 10 mg tablet Take 1 tablet by mouth once daily. gabapentin (NEURONTIN) 400 mg capsule Take 1 capsule by mouth three times a day for 180 days. ferrous sulfate 325 mg (65 mg iron) tablet Take 1 tablet by mouth once daily. venlafaxine (EFFEXOR) 50 mg tablet Take 1 tablet by mouth once daily. pantoprazole DR (PROTONIX) 40 mg tablet TAKE 1 TABLET BY MOUTH ON AN EMPTY STOMACH 1/2 HOUR BEFORE A MEAL TWICE DAILY albuterol HFA (VENTOLIN HFA) 90 mcg/actuation inhaler Inhale 2 Puffs as instructed every 4 hours as needed for wheezing/shortness of breath. nitroglycerin sublingual (NITROQUICK) 0.4 mg SL tablet Dissolve 1 tablet under the tongue every 5 minutes as needed for chest pain. atorvastatin (LIPITOR) 40 mg tablet Take 1 tablet by mouth once daily. acetaminophen (TYLENOL) 500 mg tablet Take 2 tablets by mouth every 8 hours as needed for pain. COMBIVENT RESPIMAT 20-100 mcg/actuation inhaler INHALE 1 PUFF INSTRUCTED FOUR TIMES DAILY NEEDED. No current facility-administered medications for this visit. FAMILY HISTORY Problem Relation Age of Onset Hypertension Mother Diabetes Mother Systemic Lupus Erythematosus Mother Alcohol/Drug Father (cardiac issues from this) Diabetes Father Allergies Father Cancer Father Esophageal Diabetes Sister Diabetes Brother Coronary Artery Disease Maternal Grandmother Emphysema Paternal Grandfather Asthma Son Cancer Other All through my father's family. SOCIAL HISTORY[1] REVIEW OF SYSTEMS Constitutional: (+) weight gain, (+) fatigue, (-) fever, (-) chills Cardiovascular: (-) palpitations, (-) chest pain, (-) leg swelling Respiratory: (+) dyspnea Gastrointestinal: (+) hematochezia, (+) right-sided abdominal pain, (+) nausea, (+) dysphagia, (+) rectal pain, (-) vomiting Genitourinary: (-) dysuria, (-) hematuria Musculoskeletal: (+) left hip pain, (+) left CMC joint pain and swelling Skin: (+) acne, (+) dry skin Psychiatric: (+) tearfulness Endocrine: (+) hot flashes EXAM: BP 122/86 Pulse 83 Temp (!) 35.9 C (96.7 F) (Right Tympanic) Wt 74.8 kg (165 lb) LMP 07/21/2023 (Within Days) SpO2 99% BMI 29.70 kg/m PHYSICAL EXAM: GENERAL: NAD, alert and oriented. SKIN: Dry skin and acne over nose and cheeks- longstanding HEAD: Normocephalic. NECK: Supple, no lymphadenopathy, normal thyroid, no carotid bruits. LUNGS: Clear to auscultation bilaterally, no wheezes/rhonchi/rales. HEART: Regular rate and rhythm, no murmurs. No ectopy. ABDOMEN: Soft, non-tender. No hepatosplenomegaly noted. Bowel sounds normal. EXTREMITIES: Left CMC joint pain and swelling- some heat noted but not red NEURO: Awake, alert and oriented x3, cranial nerves II-XII grossly intact, normal gait, no involuntary motions. LABS: Check labs ASSESSMENT/PLAN: 1. Iron deficiency anemia, unspecified iron deficiency anemia type - ICD9: 280.9, ICD10: D50.9 (primary diagnosis) Check labs, refer to GEN SURGERY for Cscope and possible EGD - COMPLETE BLOOD COUNT AND DIFFERENTIAL - THYROID STIMULATING HORMONE - VITAMIN B12 - IRON AND TIBC - CONSULT TO GENERAL SURGERY 2. Rectal bleeding - ICD9: 569.3, ICD10: K62.5 Acute- see #1 - COMPLETE BLOOD COUNT AND DIFFERENTIAL - THYROID STIMULATING HORMONE - IRON AND TIBC - CONSULT TO GENERAL SURGERY 3. Rosacea - ICD9: 695.3, ICD10: L71.9 Chronic - METRONIDAZOLE 1 % TOPICAL GEL 4. Mixed hyperlipidemia - ICD9: 272.2, ICD10: E78.2 - Control undetermined, due for labs - Counseled on healthy diet and regular exercise - LIPID PANEL, NONFASTING 5. 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 - ICD9: 414.01, 413.9, ICD10: I25.119 Check labs - LIPID PANEL, NONFASTING 6. Primary hypertension - ICD9: 401.9, ICD10: I10 - Controlled - Recommend home blood pressure monitoring, to bring results to next visit - Encouraged sodium restriction, DASH or Mediterranean diet - Recommend regular aerobic exercise - COMPREHENSIVE METABOLIC PANEL 7. COPD with chronic bronchitis (HCC) - ICD9: 491.20, ICD10: J44.89 - Symptoms controlled - Continue current medications 8. Screening for diabetes mellitus - ICD9: V77.1, ICD10: Z13.1 Check labs - HEMOGLOBIN A1C 9. Thumb pain, left - ICD9: 729.5, ICD10: M79.645 Chronic X 2 years- get Xray and use diclofenac gel 2 x day- may need referral to hand specialist - XR HAND GENERAL 3V PA/LAT/OBL LEFT Amita Pope APRN.OXYGEN FURNACE OPERATOR Discussed treatment plan and patient voices understanding. Patient's questions answered appropriately. Medications and potential side effects were discussed and patient voices understanding. Return to the office as scheduled or as needed for worsening/no improvement. Amita Pope APRN.OXYGEN FURNACE OPERATOR [1] Social History Tobacco Use Smoking status: Every Day Current packs/day: 1.00 Average packs/day: 1 pack/day for 34.4 years (34.4 ttl pk-yrs) Types: Cigarettes Start date: 01/20/1991 Smokeless tobacco: Never Tobacco comments: Father smoked in childhood home, currently lives with a smoker who is willing to quit with patient. Vaping Use Vaping status: Never Used Substance Use Topics Alcohol use: No Drug use: Yes Types: Marijuana Comment: Smokes 2-3 times a week documented in this encounter [place] 06-17-2025 Telephone encounter Note Patient call in for rectal bleeding x 1. Patient had multiple episodes of diarrhea yesterday and the had blood out of rectum with no bowel movement. Nurse Triage assessment completed with protocol recommending for disposition of see PCP in 24 hours. Patient scheduled to see Izabel tomorrow morning at 9:40. Care advice reviewed with patient, patient stated understanding. Patient advised to contact office or seek evaluation in urgent care or ER if symptoms persist or gets worse. [place] 06-17-2025 Miscellaneous Notes Patient call in for rectal bleeding x 1. Patient had multiple episodes of diarrhea yesterday and the had blood out of rectum with no bowel movement. Nurse Triage assessment completed with protocol recommending for disposition of see PCP in 24 hours. Patient scheduled to see Izabel tomorrow morning at 9:40. Care advice reviewed with patient, patient stated understanding. Patient advised to contact office or seek evaluation in urgent care or ER if symptoms persist or gets worse. documented in this encounter [place] 06-07-2025 Note HNO ID: [id number] Author: KIM KEBEDE MD Service: ? Author Type: Physician Type: Progress Notes Filed: 06/07/2025 16:47 Note Text: [facility] Gerardo Call is a 50 year old female. Patient presents with: Ear Pain: Bilateral ear pain, fever, cough, ST, and chest congestion x 2 days Pt is a current smoker and a hx of COPD now lasrt few days uri sx cough getting worse also c/o nasal congestion ear pain and a sT and bodyaches and fever and chills declines any form of testing here for a Z antony and prednisone Ear Pain Associated symptoms include chills, congestion, coughing, fatigue, a fever and a sore throat. Pertinent negatives include no headaches. Review of Systems Constitutional: Positive for chills, fatigue and fever. HENT: Positive for congestion, ear pain, rhinorrhea and sore throat. Respiratory: Positive for cough and wheezing. Negative for shortness of breath and stridor. Neurological: Negative for dizziness and headaches. Objective BP 122/78 Pulse 95 Temp 36.6 ?C (97.9 ?F) (Tympanic) Resp 18 Wt 74 kg (163 lb 2.3 oz) LMP 07/21/2023 (Within Days) SpO2 98% BMI 29.36 kg/m? Physical Exam Vitals and nursing note reviewed. Constitutional: Appearance: Normal appearance. She is not ill-appearing. HENT: Right Ear: Tympanic membrane and ear canal normal. Left Ear: Tympanic membrane and ear canal normal. Nose: Congestion and rhinorrhea present. Mouth/Throat: Mouth: Mucous membranes are moist. Pharynx: No oropharyngeal exudate or posterior oropharyngeal erythema. Cardiovascular: Rate and Rhythm: Normal rate and regular rhythm. Heart sounds: Normal heart sounds. Pulmonary: Effort: Pulmonary effort is normal. Breath sounds: Normal breath sounds. No stridor. No wheezing, rhonchi or rales. Musculoskeletal: Cervical back: Normal range of motion and neck supple. Lymphadenopathy: Cervical: No cervical adenopathy. Neurological: Mental Status: She is alert and oriented to person, place, and time. Psychiatric: Mood and Affect: Mood normal. Behavior: Behavior normal. {ASSESSMENT/PLAN: 1. URI, acute - ICD9: 465.9, ICD10: J06.9 (primary diagnosis) Discussed with pt chances are high of a viral uri but advised to hold z antony and start prednisone for now return here as needed - AZITHROMYCIN 250 MG TABLET - PREDNISONE 20 MG TABLET 2. Chronic obstructive pulmonary disease with acute exacerbation (HCC) - ICD9: 491.21, ICD10: J44.1 Advised pt to follow up with pulmonology since no visit recently in chart - AZITHROMYCIN 250 MG TABLET - PREDNISONE 20 MG TABLET Kim Kebede MD History and Record Review External record(s) reviewed: prior outpatient record. Systemic symptoms present included: Fever chills bodyaches Differential Diagnoses - uri is more likely for the following reason(s): suggested by HANDP - pneumonia is less likely for the following reason(s): noraml exam o2 sAT normal, HANDP not suggestive Disposition The patient was discharged. Procedures [facility] 06-07-2025 History of Present illness Narrative [facility] Webb is a 50 year old female. Patient presents with: Ear Pain: Bilateral ear pain, fever, cough, ST, and chest congestion x 2 days Pt is a current smoker and a hx of COPD now lasrt few days uri sx cough getting worse also c/o nasal congestion ear pain and a sT and bodyaches and fever and chills declines any form of testing here for a Z antony and prednisone Ear Pain Associated symptoms include chills, congestion, coughing, fatigue, a fever and a sore throat. Pertinent negatives include no headaches. Review of Systems Constitutional: Positive for chills, fatigue and fever. HENT: Positive for congestion, ear pain, rhinorrhea and sore throat. Respiratory: Positive for cough and wheezing. Negative for shortness of breath and stridor. Neurological: Negative for dizziness and headaches. Objective BP 122/78 Pulse 95 Temp 36.6 C (97.9 F) (Tympanic) Resp 18 Wt 74 kg (163 lb 2.3 oz) LMP 07/21/2023 (Within Days) SpO2 98% BMI 29.36 kg/m Physical Exam Vitals and nursing note reviewed. Constitutional: Appearance: Normal appearance. She is not ill-appearing. HENT: Right Ear: Tympanic membrane and ear canal normal. Left Ear: Tympanic membrane and ear canal normal. Nose: Congestion and rhinorrhea present. Mouth/Throat: Mouth: Mucous membranes are moist. Pharynx: No oropharyngeal exudate or posterior oropharyngeal erythema. Cardiovascular: Rate and Rhythm: Normal rate and regular rhythm. Heart sounds: Normal heart sounds. Pulmonary: Effort: Pulmonary effort is normal. Breath sounds: Normal breath sounds. No stridor. No wheezing, rhonchi or rales. Musculoskeletal: Cervical back: Normal range of motion and neck supple. Lymphadenopathy: Cervical: No cervical adenopathy. Neurological: Mental Status: She is alert and oriented to person, place, and time. Psychiatric: Mood and Affect: Mood normal. Behavior: Behavior normal. {ASSESSMENT/PLAN: 1. URI, acute - ICD9: 465.9, ICD10: J06.9 (primary diagnosis) Discussed with pt chances are high of a viral uri but advised to hold z antony and start prednisone for now return here as needed - AZITHROMYCIN 250 MG TABLET - PREDNISONE 20 MG TABLET 2. Chronic obstructive pulmonary disease with acute exacerbation (HCC) - ICD9: 491.21, ICD10: J44.1 Advised pt to follow up with pulmonology since no visit recently in chart - AZITHROMYCIN 250 MG TABLET - PREDNISONE 20 MG TABLET Kim Kebede MD History and Record Review External record(s) reviewed: prior outpatient record. Systemic symptoms present included: Fever chills bodyaches Differential Diagnoses - uri is more likely for the following reason(s): suggested by H&P - pneumonia is less likely for the following reason(s): noraml exam o2 sAT normal, H&P not suggestive Disposition The patient was discharged. Procedures documented in this encounter [place] 06-07-2025 Instructions Kim Kebede MD - 06/07/2025 4:42 PM EDT Cough You have been seen for your cough. There are many possible causes of cough. Most are not dangerous. Your doctor has determined that it is OK for you to go home today. Your doctor believes your cough was caused by bacteria. Your doctor prescribed an antibiotic that will fight the bacteria. The doctor may have prescribed some medicine to help with your cough. Use the medicine as directed. YOU SHOULD SEEK MEDICAL ATTENTION IMMEDIATELY, EITHER HERE OR AT THE NEAREST EMERGENCY DEPARTMENT, IF ANY OF THE FOLLOWING OCCURS: You wheeze or have trouble breathing. You cough up mucous or lose weight for no reason. You have a fever (temperature higher than 100.4 F / 38 C) that lasts more than 5 days. You have chest pain. Your symptoms get worse or do not get better in 2 or 3 days. You have any new problems or concerns. documented in this encounter [place] 04-25-2025 Telephone encounter Note Called and spoke with pt and confirmed that pt takes Venlafaxine ER 150 mg 24 hr capsule in addition to Venlafaxine 50 mg tablet daily. Next appt is 07/03/[address] Garcia. [place] 04-25-2025 Miscellaneous Notes Called and spoke with pt and confirmed that pt takes Venlafaxine ER 150 mg 24 hr capsule in addition to Venlafaxine 50 mg tablet daily. Next appt is 07/03/[address] Garcia. Patient requesting the following medication venlafaxine XR (EFFEXOR XR) 150 mg ORAL Cp24 Patient last seen 01-03-25 Future appointment scheduled: yes PHARMACY: [facility]. documented in this encounter [place] 04-25-2025 Telephone encounter Note Patient requesting the following medication venlafaxine XR (EFFEXOR XR) 150 mg ORAL Cp24 Patient last seen 01-03-25 Future appointment scheduled: yes PHARMACY: [facility]. [place] 02-12-2025 Note Patient Outreach (ZAIDA MPWS) CALLBEV ([id number]) 1975 F Date Time Provider Department 02/12/25 MARTINEZ GARCIA During your visit today, we recorded the following information about you: Allergies As of Date: 02/12/2025 Noted Allergy Reaction DOXYCYCLINE 08/16/2006 ENTEX (PHENYLEPHRINE-GUAIFENESIN) 10/20/2006 ERYTHROMYCIN 08/16/2006 12 - Shortness of Breath Comments: Can take zpak FLEXERIL (CYCLOBENZAPRINE HCL) 10/08/2011 3 - Cough Comments: denies OMNICEF (CEFDINIR) 07/11/2014 8 - GI Upset PENICILLIN G 08/16/2006 5 - Intolerance Comments: unknown reaction during childhood RISPERDAL (RISPERIDONE) 08/16/2006 7 - Swelling ULTRAM (TRAMADOL HCL) 08/16/2006 7 - Swelling VALTREX (VALACYCLOVIR HCL) 08/16/2006 2 - Rash Date Reviewed: 01/29/2025 Reviewed by: Amita Pope APRN.OXYGEN FURNACE OPERATOR - Fully Assessed Visit Diagnosis:Encounter for screening mammogram for breast cancer [Z12.31] Order(s):[facility] SCREENING [facility] [[id number]] Order #: [id number] FUTURE Prescriptions as of 03/15/2025 - ferrous sulfate 325 mg (65 mg iron) tablet Take 1 tablet by mouth once daily. - venlafaxine (EFFEXOR) 50 mg tablet Take 1 tablet by mouth once daily. - gabapentin (NEURONTIN) 400 mg capsule Take 1 capsule by mouth three times a day for 180 days. - venlafaxine ER (EFFEXOR XR) 150 mg 24 hr capsule Take 1 capsule by mouth once daily. - pantoprazole DR (PROTONIX) 40 mg tablet TAKE 1 TABLET BY MOUTH ON AN EMPTY STOMACH 1/2 HOUR BEFORE A MEAL TWICE DAILY - albuterol HFA (VENTOLIN HFA) 90 mcg/actuation inhaler Inhale 2 Puffs as instructed every 4 hours as needed for wheezing/shortness of breath. - cetirizine (ZYRTEC) 10 mg tablet Take 1 tablet by mouth once daily. - nitroglycerin sublingual (NITROQUICK) 0.4 mg SL tablet Dissolve 1 tablet under the tongue every 5 minutes as needed for chest pain. - atorvastatin (LIPITOR) 40 mg tablet Take 1 tablet by mouth once daily. - acetaminophen (TYLENOL) 500 mg tablet Take 2 tablets by mouth every 8 hours as needed for pain. - COMBIVENT RESPIMAT 20-100 mcg/actuation inhaler INHALE 1 PUFF INSTRUCTED FOUR TIMES DAILY NEEDED. Problem List As Of Date 02/12/2025 Noted Resolved Grief reaction [F43.20] 08/16/2006 Anxiety state [F41.1] 08/16/2006 Unspecified gastritis and gastroduodenitis with*08/16/2006 04/27/2017 Allergic rhinitis, cause unspecified [J30.9] 08/16/2006 04/27/2017 Lumbago [M54.50] 08/16/2006 Tobacco use disorder [F17.200] 08/16/2006 Fever and other physiologic disturbances of tem*07/04/2008 08/09/2012 PAIN ABDOMEN( Epigastric) [R10.13] 07/04/2008 08/09/2012 ABNORMAL XRAY ABDOMINAL [R93.5] 10/08/2008 09/24/2014 NAUSEA [R11.0] 10/08/2008 08/09/2012 ABDOMINAL PAIN( Periumbilical) [R10.33] 10/08/2008 08/09/2012 Cellulitis [L03.90] 09/17/2009 04/27/2017 Routine general medical examination at [facility]*01/15/2011 08/09/2012 Class: Chronic Routine gynecological examination [Z01.419] 01/15/2011 08/09/2012 Class: Chronic GERD (gastroesophageal reflux disease) [K21.9] 01/15/2011 PUD (peptic ulcer disease) [K27.9] 01/15/2011 Tinea versicolor [B36.0] 01/29/2011 09/24/2014 Post-inflammatory hyperpigmentation [L81.0] 01/29/2011 09/24/2014 Pruritus [L29.9] 01/29/2011 09/24/2014 Hyperlipidemia [E78.5] 05/22/2014 Coronary artery disease involving [place]*06/06/2014 Lymphadenopathy [R59.1] 06/06/2014 04/27/2017 Herpes simplex infection [B00.9] 03/18/2016 04/27/2017 Marijuana use [F12.90] 06/08/2018 Mild intermittent asthma with acute exacerbatio*06/20/2018 Chest pain [R07.9] 08/30/2018 08/30/2018 Polysubstance abuse (HCC) [F19.10] 08/30/2018 Primary hypertension [I10] 08/30/2018 Simple endometrial hyperplasia without atypia [*04/27/2019 Raynaud's phenomenon (by history or observed) [* COPD with chronic bronchitis (HCC) [J44.89] Emphysema (subcutaneous) (surgical) resulting f* Centrilobular emphysema (HCC) [J43.2] Tobacco use disorder, continuous [F17.209] Abscess of left hand [L02.512] 11/24/2022 Encounter Status:Closed by [employer] on 03/15/25 [facility] 02-04-2025 Telephone encounter Note Patient is aware of all information/instructions. She is aware to begin OTC ferrous sulfate 325 mg 1 tablet every other day. She will follow up with her PCP for labs and colonoscopy. Anne Olsen LPN [place] 02-04-2025 Miscellaneous Notes Patient is aware of all information/instructions. She is aware to begin OTC ferrous sulfate 325 mg 1 tablet every other day. She will follow up with her PCP for labs and colonoscopy. Anne Olsen LPN Can let her know all the molecular testing was negative for any chronic form of leukemia or myeloproliferative disorder. Iron low. Recommend a trial of OTC ferrous sulfate 325 mg one tablet every other day. Since she is over the age of 45, recommend screening colonoscopy. She can follow-up with PCPs team in a couple months for a recheck of iron and CBC. Devin Donald DO documented in this encounter [place] 02-04-2025 Telephone encounter Note Can let her know all the molecular testing was negative for any chronic form of leukemia or myeloproliferative disorder. Iron low. Recommend a trial of OTC ferrous sulfate 325 mg one tablet every other day. Since she is over the age of 46, recommend screening colonoscopy. She can follow-up with PCPs team in a couple months for a recheck of iron and CBC. Devin Donald DO [place] Work Phone: 01-29-2025 Instructions Amita Pope APRN.CNP - 01/29/2025 1:25 PM EDT 1) See Dr. Garcia in June 2) Start ferrous sulfate 325 mg daily- take with something rich in Vit C documented in this encounter [place] 01-29-2025 Note HNO ID: [id number] Author: AMITA POPE APRN.CNP Service: ? Author Type: Nurse Practitioner Type: Progress Notes Filed: 01/29/2025 13:25 Note Text: This is a 50 year old female who presents today with: Patient presents with: Follow Up HISTORY OF PRESENT ILLNESS: Bev Webb is a 50 year old female. Patient presents with: Follow Up Feeling a little better Some iron deficiency- saw Dr. Donald who is doing some further testing PAST MEDICAL HISTORY: PAST MEDICAL HISTORY Diagnosis Date Abnormal mammogram, unspecified LEFT BREAST Abnormal Pap smear and cervical HPV (human papillomavirus) CAD (coronary artery disease) 2103 diffuse moderate CAD in the left main and RCA-40-50%, seeing Dr. Chase Centrilobular emphysema (HCC) Chronic cholecystitis 08/24/07 Chronic depressive personality disorder Chronic gastric ulcer without mention of hemorrhage, perforation, without mention of obstruction COPD with chronic bronchitis (HCC) Generalized anxiety disorder HTN (hypertension) Hyperlipidemia Incisional hernia without mention of obstruction or gangrene Irritable bowel syndrome Lumbago PONV (postoperative nausea and vomiting) Raynaud's phenomenon (by history or observed) Tobacco use disorder, continuous Daily smoker since age 16. PAST SURGICAL HISTORY Procedure Laterality Date APPENDECTOMY ENDOMETRIAL BX W/WO ENDOCERVIX BX W/O DILAT SPX 01/01/2009 Menorrhagia ESOPHAGOGASTRODUODENOSCOPY TRANSORAL DIAGNOSTIC 09/26/2012 EGD EXC BREAST LES PREOP PLMT RAD MARKER OPEN 1 LES 08/29/2009 left breast HEART CATHETERIZATION 11/07/2013 IMPLANT MESH OPN HERNIA RPR/DEBRIDEMENT CLOSURE 07/01/2008 LAPAROSCOPIC APPENDECTOMY LAPS SURG CHOLECYSTECTOMY W/CHOLANGIOGRAPHY 08/24/2007 LIG/TRNSXJ FLP TUBE ABDL/VAG APPR UNI/BI PREOP PLACEMENT NEEDLE LOC 08/29/2009 left breast REP INIT INCI/ VENTRAL HERNIA 11/27/2020 REPAIR FIRST ABDOMINAL WALL HERNIA 07/01/2008 REVISE MEDIAN N/CARPAL TUNNEL SURG Left 11/10/2022 Left CTR SEPTOPLASTY/SUBMUCOUS RESECJ W/WO CARTILAGE GRF 2001 +/- Tim-Andre STEREOTACTIC CORE BIOPSY 07/09/2009 LEFT BREAST ALLERGIES Doxycycline, Entex [Phenylephrine-Guaifenesin], Erythromycin, Flexeril [Cyclobenzaprine Hcl], Omnicef [Cefdinir], Penicillin G, Risperdal [Risperidone], Ultram [Tramadol Hcl], and Valtrex [Valacyclovir Hcl] MEDICATIONS Current Outpatient Medications Medication Sig tiZANidine (ZANAFLEX) 4 mg tablet Take 1 tablet by mouth every 8 hours as needed (muscle spasms). venlafaxine (EFFEXOR) 50 mg tablet Take 1 tablet by mouth once daily. gabapentin (NEURONTIN) 400 mg capsule Take 1 capsule by mouth three times a day for 180 days. venlafaxine ER (EFFEXOR XR) 150 mg 24 hr capsule Take 1 capsule by mouth once daily. pantoprazole DR (PROTONIX) 40 mg tablet TAKE 1 TABLET BY MOUTH ON AN EMPTY STOMACH 1/2 HOUR BEFORE A MEAL TWICE DAILY albuterol HFA (VENTOLIN HFA) 90 mcg/actuation inhaler Inhale 2 Puffs as instructed every 4 hours as needed for wheezing/shortness of breath. cetirizine (ZYRTEC) 10 mg tablet Take 1 tablet by mouth once daily. nitroglycerin sublingual (NITROQUICK) 0.4 mg SL tablet Dissolve 1 tablet under the tongue every 5 minutes as needed for chest pain. atorvastatin (LIPITOR) 40 mg tablet Take 1 tablet by mouth once daily. acetaminophen (TYLENOL) 500 mg tablet Take 2 tablets by mouth every 8 hours as needed for pain. COMBIVENT RESPIMAT 20-100 mcg/actuation inhaler INHALE 1 PUFF INSTRUCTED FOUR TIMES DAILY NEEDED. No current facility-administered medications for this visit. FAMILY HISTORY Problem Relation Age of Onset Hypertension Mother Diabetes Mother Systemic Lupus Erythematosus Mother Alcohol/Drug Father (cardiac issues from this) Diabetes Father Allergies Father Cancer Father Esophageal Diabetes Sister Diabetes Brother Coronary Artery Disease Maternal Grandmother Emphysema Paternal Grandfather Asthma Son Cancer Other All through my father's family. Social History Tobacco Use Smoking status: Every Day Current packs/day: 1.00 Average packs/day: 1 pack/day for 34.0 years (34.0 ttl pk-yrs) Types: Cigarettes Start date: 01/20/1991 Smokeless tobacco: Never Tobacco comments: Father smoked in childhood home, currently lives with a smoker who is willing to quit with patient. Vaping Use Vaping status: Never Used Substance Use Topics Alcohol use: No Drug use: Yes Types: Marijuana Comment: Smokes 2-3 times a week Tongue feeling better Sinus better No fever or chills Some body aches No headaches Ear pain is better EXAM: BP 144/80 Pulse 90 Temp 36.1 ?C (97 ?F) (Left Tympanic) Wt 75.3 kg (166 lb) LMP 07/21/2023 (Within Days) SpO2 97% BMI 29.88 kg/m? PHYSICAL EXAM: Physical Exam Vitals reviewed. Constitutional: Appearance: Normal appearance. HENT: Head: Normocephalic. Right Ear: Tympanic membrane, ear canal and ext (more content not included)... [facility] 01-29-2025 History of Present illness Narrative This is a 50 year old female who presents today with: Patient presents with: Follow Up HISTORY OF PRESENT ILLNESS: Bev Webb is a 50 year old female. Patient presents with: Follow Up Feeling a little better Some iron deficiency- saw Dr. Donald who is doing some further testing PAST MEDICAL HISTORY: PAST MEDICAL HISTORY Diagnosis Date Abnormal mammogram, unspecified LEFT BREAST Abnormal Pap smear and cervical HPV (human papillomavirus) CAD (coronary artery disease) 2103 diffuse moderate CAD in the left main and RCA-40-50%, seeing Dr. Chase Centrilobular emphysema (HCC) Chronic cholecystitis 08/24/07 Chronic depressive personality disorder Chronic gastric ulcer without mention of hemorrhage, perforation, without mention of obstruction COPD with chronic bronchitis (HCC) Generalized anxiety disorder HTN (hypertension) Hyperlipidemia Incisional hernia without mention of obstruction or gangrene Irritable bowel syndrome Lumbago PONV (postoperative nausea and vomiting) Raynaud's phenomenon (by history or observed) Tobacco use disorder, continuous Daily smoker since age 16. PAST SURGICAL HISTORY Procedure Laterality Date APPENDECTOMY ENDOMETRIAL BX W/WO ENDOCERVIX BX W/O DILAT SPX 01/01/2009 Menorrhagia ESOPHAGOGASTRODUODENOSCOPY TRANSORAL DIAGNOSTIC 09/26/2012 EGD EXC BREAST LES PREOP PLMT RAD MARKER OPEN 1 LES 08/29/2009 left breast HEART CATHETERIZATION 11/07/2013 IMPLANT MESH OPN HERNIA RPR/DEBRIDEMENT CLOSURE 07/01/2008 LAPAROSCOPIC APPENDECTOMY LAPS SURG CHOLECYSTECTOMY W/CHOLANGIOGRAPHY 08/24/2007 LIG/TRNSXJ FLP TUBE ABDL/VAG APPR UNI/BI PREOP PLACEMENT NEEDLE LOC 08/29/2009 left breast REP INIT INCI/ VENTRAL HERNIA 11/27/2020 REPAIR FIRST ABDOMINAL WALL HERNIA 07/01/2008 REVISE MEDIAN N/CARPAL TUNNEL SURG Left 11/10/2022 Left CTR SEPTOPLASTY/SUBMUCOUS RESECJ W/WO CARTILAGE GRF 2001 +/- Tim-Andre STEREOTACTIC CORE BIOPSY 07/09/2009 LEFT BREAST ALLERGIES Doxycycline, Entex [Phenylephrine-Guaifenesin], Erythromycin, Flexeril [Cyclobenzaprine Hcl], Omnicef [Cefdinir], Penicillin G, Risperdal [Risperidone], Ultram [Tramadol Hcl], and Valtrex [Valacyclovir Hcl] MEDICATIONS Current Outpatient Medications Medication Sig tiZANidine (ZANAFLEX) 4 mg tablet Take 1 tablet by mouth every 8 hours as needed (muscle spasms). venlafaxine (EFFEXOR) 50 mg tablet Take 1 tablet by mouth once daily. gabapentin (NEURONTIN) 400 mg capsule Take 1 capsule by mouth three times a day for 180 days. venlafaxine ER (EFFEXOR XR) 150 mg 24 hr capsule Take 1 capsule by mouth once daily. pantoprazole DR (PROTONIX) 40 mg tablet TAKE 1 TABLET BY MOUTH ON AN EMPTY STOMACH 1/2 HOUR BEFORE A MEAL TWICE DAILY albuterol HFA (VENTOLIN HFA) 90 mcg/actuation inhaler Inhale 2 Puffs as instructed every 4 hours as needed for wheezing/shortness of breath. cetirizine (ZYRTEC) 10 mg tablet Take 1 tablet by mouth once daily. nitroglycerin sublingual (NITROQUICK) 0.4 mg SL tablet Dissolve 1 tablet under the tongue every 5 minutes as needed for chest pain. atorvastatin (LIPITOR) 40 mg tablet Take 1 tablet by mouth once daily. acetaminophen (TYLENOL) 500 mg tablet Take 2 tablets by mouth every 8 hours as needed for pain. COMBIVENT RESPIMAT 20-100 mcg/actuation inhaler INHALE 1 PUFF INSTRUCTED FOUR TIMES DAILY NEEDED. No current facility-administered medications for this visit. FAMILY HISTORY Problem Relation Age of Onset Hypertension Mother Diabetes Mother Systemic Lupus Erythematosus Mother Alcohol/Drug Father (cardiac issues from this) Diabetes Father Allergies Father Cancer Father Esophageal Diabetes Sister Diabetes Brother Coronary Artery Disease Maternal Grandmother Emphysema Paternal Grandfather Asthma Son Cancer Other All through my father's family. Social History Tobacco Use Smoking status: Every Day Current packs/day: 1.00 Average packs/day: 1 pack/day for 34.0 years (34.0 ttl pk-yrs) Types: Cigarettes Start date: 01/20/1991 Smokeless tobacco: Never Tobacco comments: Father smoked in childhood home, currently lives with a smoker who is willing to quit with patient. Vaping Use Vaping status: Never Used Substance Use Topics Alcohol use: No Drug use: Yes Types: Marijuana Comment: Smokes 2-3 times a week Tongue feeling better Sinus better No fever or chills Some body aches No headaches Ear pain is better EXAM: BP 144/80 Pulse 90 Temp 36.1 C (97 F) (Left Tympanic) Wt 75.3 kg (166 lb) LMP 07/21/2023 (Within Days) SpO2 97% BMI 29.88 kg/m PHYSICAL EXAM: Physical Exam Vitals reviewed. Constitutional: Appearance: Normal appearance. HENT: Head: Normocephalic. Right Ear: Tympanic membrane, ear canal and external ear normal. There is no impacted cerumen. Left Ear: Tympanic membrane, ear canal and external ear normal. There is no impacted cerumen. Nose: Rhinorrhea present. No congestion. Mouth/Throat: Pharynx: No oropharyngeal exudate or posterior oropharyngeal erythema. Comments: No white patches on tongue Neck: Vascular: No carotid bruit. Cardiovascular: Rate and Rhythm: Normal rate and regular rhythm. Pulses: Normal pulses. Heart sounds: Normal heart sounds. Pulmonary: Effort: Pulmonary effort is normal. Breath sounds: Normal breath sounds. Musculoskeletal: General: Normal range of motion. Right lower leg: No edema. Left lower leg: No edema. Comments: Moves all ext., walks w/o assistive device Lymphadenopathy: Cervical: No cervical adenopathy. Skin: General: Skin is warm and dry. Neurological: Mental Status: She is alert and oriented to person, place, and time. LABS: ASSESSMENT/PLAN: 1. Other iron deficiency anemia - ICD9: 280.8, ICD10: D50.8 (primary diagnosis) Start ferrous sulfate daily with something rich in vit. C - FERROUS SULFATE 325 MG (65 MG IRON) TABLET 2. Candidiasis - ICD9: 112.9, ICD10: B37.9 Resolved 3. Respiratory infection - ICD9: 519.8, ICD10: J98.8 Resolved 4. Primary hypertension - ICD9: 401.9, ICD10: I10 - Controlled - Recommend home blood pressure monitoring, to bring results to next visit - Encouraged sodium restriction, DASH or Mediterranean diet - Recommend regular aerobic exercise Discussed treatment plan and patient voices understanding. Patient's questions answered appropriately. Medications and potential side effects were discussed and patient voices understanding. Return to the office as scheduled or as needed for worsening/no improvement. Amita Pope APRN.CNP documented in this encounter [place] 01-25-2025 History of Present illness Narrative Patient referred by Amita Pope APRN.CNP for leukocytosis. HPI: The patient is a 50-year-old female with a past medical history as outlined below. Chronic mild leukocytosis with neutrophilia and mild absolute monocytosis as well as thrombocytosis. Labs were reviewed dating back to at least October 2022. Fatigued quite a bit. No menses since 11/2024. Used to have heavy periods. Passed clots. No h/o blood donation. One child. One miscarriage. Smokes about 1 ppd. Occasional wheezing. Lives with mom--hears her snoring--patient can wake herself snoring. Upper and lower plates. Recent sinusitis. Several recent courses of antibiotics. Currently on Bactrim. Symptoms better. PAST MEDICAL HISTORY Diagnosis Date Abnormal mammogram, unspecified LEFT BREAST Abnormal Pap smear and cervical HPV (human papillomavirus) CAD (coronary artery disease) 2103 diffuse moderate CAD in the left main and RCA-40-50%, seeing Dr. Chase Centrilobular emphysema (HCC) Chronic cholecystitis 08/24/07 Chronic depressive personality disorder Chronic gastric ulcer without mention of hemorrhage, perforation, without mention of obstruction COPD with chronic bronchitis (HCC) Generalized anxiety disorder HTN (hypertension) Hyperlipidemia Incisional hernia without mention of obstruction or gangrene Irritable bowel syndrome Lumbago PONV (postoperative nausea and vomiting) Raynaud's phenomenon (by history or observed) Tobacco use disorder, continuous Daily smoker since age 16. PAST SURGICAL HISTORY Procedure Laterality Date APPENDECTOMY ENDOMETRIAL BX W/WO ENDOCERVIX BX W/O DILAT SPX 01/01/2009 Menorrhagia ESOPHAGOGASTRODUODENOSCOPY TRANSORAL DIAGNOSTIC 09/26/2012 EGD EXC BREAST LES PREOP PLMT RAD MARKER OPEN 1 LES 08/29/2009 left breast HEART CATHETERIZATION 11/07/2013 IMPLANT MESH OPN HERNIA RPR/DEBRIDEMENT CLOSURE 07/01/2008 LAPAROSCOPIC APPENDECTOMY LAPS SURG CHOLECYSTECTOMY W/CHOLANGIOGRAPHY 08/24/2007 LIG/TRNSXJ FLP TUBE ABDL/VAG APPR UNI/BI PREOP PLACEMENT NEEDLE LOC 08/29/2009 left breast REP INIT INCI/ VENTRAL HERNIA 11/27/2020 REPAIR FIRST ABDOMINAL WALL HERNIA 07/01/2008 REVISE MEDIAN N/CARPAL TUNNEL SURG Left 11/10/2022 Left CTR SEPTOPLASTY/SUBMUCOUS RESECJ W/WO CARTILAGE GRF 2001 +/- Tim-Andre STEREOTACTIC CORE BIOPSY 07/09/2009 LEFT BREAST ALLERGIES Allergen Reactions Doxycycline Entex [Phenylephrin* Erythromycin Shortness of Breath Can take zpak Flexeril [Cyclobenz* Cough denies Omnicef [Cefdinir] GI Upset Penicillin G Intolerance unknown reaction during childhood Risperdal [Risperid* Swelling Ultram [Tramadol Hc* Swelling Valtrex [Valacyclov* Rash Social History Tobacco Use Smoking status: Every Day Current packs/day: 1.00 Average packs/day: 1 pack/day for 34.0 years (34.0 ttl pk-yrs) Types: Cigarettes Start date: 01/20/1991 Smokeless tobacco: Never Tobacco comments: Father smoked in childhood home, currently lives with a smoker who is willing to quit with patient. Vaping Use Vaping status: Never Used Substance Use Topics Alcohol use: No Drug use: Yes Types: Marijuana Comment: Smokes 2-3 times a week FAMILY HISTORY Problem Relation Age of Onset Hypertension Mother Diabetes Mother Systemic Lupus Erythematosus Mother Alcohol/Drug Father (cardiac issues from this) Diabetes Father Allergies Father Cancer Father Esophageal Coronary Artery Disease Maternal Grandmother Emphysema Paternal Grandfather Asthma Son Diabetes Sister Diabetes Brother Cancer Other All through my father's family. REVIEW OF SYSTEMS: Constitutional: No episodes of fever and night sweats. Normal appetite. Neuro: No BHAKTA, vertigo, dizziness and imbalance. No symptoms of neuropathy. HEENT: No recent change in voice, vision or hearing. Resp: No hemoptysis. No shortness of breath at rest. CVS: No exertional chest pain, PND, orthopnea and LE edema. GI: No reflux, n/v, change in bowel habits or abdominal pain. : No dysuria or gross hematuria. Endo: No hot flashes. No polyuria and polydipsia. No heat and cold intolerance. Musculoskeletal: No bone, back, joint and muscular pain. Derm: No current rash. No history of jaundice or diffuse pruritis. Heme: No unusual bleeding and unexplained bruising. Psych: Normal mood. PHYSICAL EXAM: Vitals: Blood pressure 167/93, pulse 119, temperature 36.9 C (98.5 F), temperature source Temporal, height 158.8 cm (5' 2.5), weight 77.1 kg (170 lb), last menstrual period 07/21/2023, SpO2 96%. Well-appearing and in no acute distress. EYES: Sclerae are anicteric bilaterally. LYMPHATIC: There is no palpable adenopathy. RESPIRATORY: Inspiratory breath sounds are of normal intensity in all arshad. No rales, wheezes or rhonchi. CARDIOVASCULAR: Rhythm is regular. ABDOMEN: The abdomen is nondistended. No splenomegaly or hepatomegaly. SKIN: No jaundice. LABS: ASSESSMENT/PLAN: (O36.776) Leukocytosis, unspecified type (primary encounter diagnosis) (D75.939) Thrombocytosis Assessment: -Patient is a 50-year-old female with a chronic history of intermittent leukocytosis primarily neutrophilia with mild absolute monocytosis. She also has longstanding thrombocytosis. -I discussed the broad differential with her and her mother. Given the chronicity likely has underlying iron deficiency. Leukocytosis likely secondary to smoking and emphysema possible obstructive sleep apnea. However because of leukocytosis and thrombocytosis prudent to rule out underlying MPN and CML. Plan: -CBC, iron studies, MPN panel, PCR for BCR/ABL. -She will be contacted with the results and any further workup as indicated. I spent a total of 45 minutes on the date of the service which included preparing to see the patient, [id number] patient care, completing clinical documentation, obtaining and/or reviewing separately obtained history, performing a medically appropriate examination, counseling and educating the patient/family/caregiver, ordering medications, tests, or procedures, communicating with other HCPs (not separately reported), and communicating results to the patient/family/caregiver. Devin Donald DO documented in this encounter [place] 01-25-2025 Note HNO ID: [id number] Author: DEVIN DONALD DO Service: ? Author Type: Physician Type: Progress Notes Filed: 01/25/2025 14:13 Note Text: Patient referred by Amita Pope APRN.CNP for leukocytosis. HPI: The patient is a 50-year-old female with a past medical history as outlined below. Chronic mild leukocytosis with neutrophilia and mild absolute monocytosis as well as thrombocytosis. Labs were reviewed dating back to at least October 2022. Fatigued quite a bit. No menses since 11/2024. Used to have heavy periods. Passed clots. No h/o blood donation. One child. One miscarriage. Smokes about 1 ppd. Occasional wheezing. Lives with mom--hears her snoring--patient can wake herself snoring. Upper and lower plates. Recent sinusitis. Several recent courses of antibiotics. Currently on Bactrim. Symptoms better. PAST MEDICAL HISTORY Diagnosis Date Abnormal mammogram, unspecified LEFT BREAST Abnormal Pap smear and cervical HPV (human papillomavirus) CAD (coronary artery disease) 2103 diffuse moderate CAD in the left main and RCA-40-50%, seeing Dr. Chase Centrilobular emphysema (HCC) Chronic cholecystitis 08/24/07 Chronic depressive personality disorder Chronic gastric ulcer without mention of hemorrhage, perforation, without mention of obstruction COPD with chronic bronchitis (HCC) Generalized anxiety disorder HTN (hypertension) Hyperlipidemia Incisional hernia without mention of obstruction or gangrene Irritable bowel syndrome Lumbago PONV (postoperative nausea and vomiting) Raynaud's phenomenon (by history or observed) Tobacco use disorder, continuous Daily smoker since age 16. PAST SURGICAL HISTORY Procedure Laterality Date APPENDECTOMY ENDOMETRIAL BX W/WO ENDOCERVIX BX W/O DILAT SPX 01/01/2009 Menorrhagia ESOPHAGOGASTRODUODENOSCOPY TRANSORAL DIAGNOSTIC 09/26/2012 EGD EXC BREAST LES PREOP PLMT RAD MARKER OPEN 1 LES 08/29/2009 left breast HEART CATHETERIZATION 11/07/2013 IMPLANT MESH OPN HERNIA RPR/DEBRIDEMENT CLOSURE 07/01/2008 LAPAROSCOPIC APPENDECTOMY LAPS SURG CHOLECYSTECTOMY W/CHOLANGIOGRAPHY 08/24/2007 LIG/TRNSXJ FLP TUBE ABDL/VAG APPR UNI/BI PREOP PLACEMENT NEEDLE LOC 08/29/2009 left breast REP INIT INCI/ VENTRAL HERNIA 11/27/2020 REPAIR FIRST ABDOMINAL WALL HERNIA 07/01/2008 REVISE MEDIAN N/CARPAL TUNNEL SURG Left 11/10/2022 Left CTR SEPTOPLASTY/SUBMUCOUS RESECJ W/WO CARTILAGE GRF 2001 +/- Akhil STEREOTACTIC CORE BIOPSY 07/09/2009 LEFT BREAST ALLERGIES Allergen Reactions Doxycycline Entex [Phenylephrin* Erythromycin Shortness of Breath Can take zpak Flexeril [Cyclobenz* Cough denies Omnicef [Cefdinir] GI Upset Penicillin G Intolerance unknown reaction during childhood Risperdal [Risperid* Swelling Ultram [Tramadol Hc* Swelling Valtrex [Valacyclov* Rash Social History Tobacco Use Smoking status: Every Day Current packs/day: 1.00 Average packs/day: 1 pack/day for 34.0 years (34.0 ttl pk-yrs) Types: Cigarettes Start date: 01/20/1991 Smokeless tobacco: Never Tobacco comments: Father smoked in childhood home, currently lives with a smoker who is willing to quit with patient. Vaping Use Vaping status: Never Used Substance Use Topics Alcohol use: No Drug use: Yes Types: Marijuana Comment: Smokes 2-3 times a week FAMILY HISTORY Problem Relation Age of Onset Hypertension Mother Diabetes Mother Systemic Lupus Erythematosus Mother Alcohol/Drug Father (cardiac issues from this) Diabetes Father Allergies Father Cancer Father Esophageal Coronary Artery Disease Maternal Grandmother Emphysema Paternal Grandfather Asthma Son Diabetes Sister Diabetes Brother Cancer Other All through my father's family. REVIEW OF SYSTEMS: Constitutional: No episodes of fever and night sweats. Normal appetite. Neuro: No BHAKTA, vertigo, dizziness and imbalance. No symptoms of neuropathy. HEENT: No recent change in voice, vision or hearing. Resp: No hemoptysis. No shortness of breath at rest. CVS: No exertional chest pain, PND, orthopnea and LE edema. GI: No reflux, n/v, change in bowel habits or abdominal pain. : No dysuria or gross hematuria. Endo: No hot flashes. No polyuria and polydipsia. No heat and cold intolerance. Musculoskeletal: No bone, back, joint and muscular pain. Derm: No current rash. No history of jaundice or diffuse pruritis. Heme: No unusual bleeding and unexplained bruising. Psych: Normal mood. PHYSICAL EXAM: Vitals: Blood pressure 167/93, pulse 119, temperature 36.9 ?C (98.5 ?F), temperature source Temporal, height 158.8 cm (5' 2.5), weight 77.1 kg (170 lb), last menstrual period 07/21/2023, SpO2 96%. Well-appearing and in no acute distress. EYES: Sclerae are anicteric bilaterally. LYMPHATIC: There is no palpable adenopathy. RESPIRATORY: Inspiratory breath sounds are of normal intensity in all arshad. No rales, wheezes or (more content not included)... [facility] 01-15-2025 Telephone encounter Note Pt notified. Scheduled with Hem/Onc. Set up 2 week f/u with Jacki. Arabella Reyes MA [place] 01-15-2025 Miscellaneous Notes Pt notified. Scheduled with Hem/Onc. Set up 2 week f/u with Jacki. Arabella Reyes MA ----- Message from Amita Pope sent at 01/15/2025 7:58 AM EDT ----- Please let patient know that her white blood cell count continues to be elevated. I am going to refer her to hematology to determine why. This has been longstanding. I also want to see her in 2 weeks to make sure that she is getting better and do some of her preventative care. Please let patient know that her white blood cell count continues to be elevated. I am going to refer her to hematology to determine why. This has been longstanding. I also want to see her in 2 weeks to make sure that she is getting better and do some of her preventative care. documented in this encounter [place] 01-15-2025 Telephone encounter Note ----- Message from Amita Pope sent at 01/15/2025 7:58 AM EDT ----- Please let patient know that her white blood cell count continues to be elevated. I am going to refer her to hematology to determine why. This has been longstanding. I also want to see her in 2 weeks to make sure that she is getting better and do some of her preventative care. [place] 01-15-2025 Telephone encounter Note Spoke w pt and she is scheduled 01/25 available new pt. Elmira Paulino [place] 01-15-2025 Miscellaneous Notes Spoke w pt and she is scheduled 01/25 available new pt. Elmira Paulino Offer apt with first available. Printed recent ER, admission note, ct reports from [facility]. Maritza Ron LPN Please review and advise CONSULT TO HEMATOLOGY Status: Needs Scheduling Requested appt date: Authorizing: Amita Pope APRN.[employer]YGEN FURNACE OPERATOR in [facility] Referral: [id number] (Authorized) Expires: 01/15/2026 Priority: Routine Diagnosis: Leukocytosis, unspecified type [D72.829] Comments Chronic leukocytosis. This has been going on for 2 years. Patient is returning with frequent viral infections. documented in this encounter [place] 01-15-2025 Telephone encounter Note Offer apt with first available. Printed recent ER, admission note, ct reports from [facility]. Maritza Ron LPN [place] 01-15-2025 Telephone encounter Note Please review and advise CONSULT TO HEMATOLOGY Status: Needs Scheduling Requested appt date: Authorizing: Amita Pope APRN.OXYGEN FURNACE OPERATOR in [facility] Referral: [id number] (Authorized) Expires: 01/15/2026 Priority: Routine Diagnosis: Leukocytosis, unspecified type [D72.829] Comments Chronic leukocytosis. This has been going on for 2 years. Patient is returning with frequent viral infections. [place] Work Phone: 01-15-2025 Progress note Formatting of t his note might be different from the original. Please let patient know that her white blood cell count continues to be elevated. I am going to refer her to hematology to determine why. This has been longstanding. I also want to see her in 2 weeks to make sure that she is getting better and do some of her preventative care. [place] 01-14-2025 Instructions Amita Pope APRN.CNP - 01/14/2025 2:50 PM EDT - FLUCONAZOLE 100 MG TABLET daily for 3 days - SULFAMETHOXAZOLE 800 MG-TRIMETHOPRIM 160 MG TABLET 2 x day for 14 days documented in this encounter [place] 01-14-2025 Note HNO ID: [id number] Author: AMITA POPE APRN.CNP Service: ? Author Type: Nurse Practitioner Type: Progress Notes Filed: 01/14/2025 14:51 Note Text: This is a 49 year old female who presents today with: Patient presents with: Mouth/Lip Problem: Thrush Sinusitis HISTORY OF PRESENT ILLNESS: Bev Webb is a 49 year old female. Patient presents with: Mouth/Lip Problem: Thrush Sinusitis Sore tongue with white plaque. Sinusitis returning and feels bad. Whole body hurts Headache is back Eating taiwanese yogurt- doesn't like it but it helped Vaginal drainage- white curd-like vaginal drainage Coughing a little EAR PAIN Sore throat Headache PAST MEDICAL HISTORY: PAST MEDICAL HISTORY Diagnosis Date Abnormal mammogram, unspecified LEFT BREAST Abnormal Pap smear and cervical HPV (human papillomavirus) CAD (coronary artery disease) 2103 diffuse moderate CAD in the left main and RCA-40-50%, seeing Dr. Chase Centrilobular emphysema (HCC) Chronic cholecystitis 08/24/07 Chronic depressive personality disorder Chronic gastric ulcer without mention of hemorrhage, perforation, without mention of obstruction COPD with chronic bronchitis (HCC) Generalized anxiety disorder HTN (hypertension) Hyperlipidemia Incisional hernia without mention of obstruction or gangrene Irritable bowel syndrome Lumbago PONV (postoperative nausea and vomiting) Raynaud's phenomenon (by history or observed) Tobacco use disorder, continuous Daily smoker since age 16. PAST SURGICAL HISTORY Procedure Laterality Date APPENDECTOMY ENDOMETRIAL BX W/WO ENDOCERVIX BX W/O DILAT SPX 01/01/2009 Menorrhagia ESOPHAGOGASTRODUODENOSCOPY TRANSORAL DIAGNOSTIC 09/26/2012 EGD EXC BREAST LES PREOP PLMT RAD MARKER OPEN 1 LES 08/29/2009 left breast HEART CATHETERIZATION 11/07/2013 IMPLANT MESH OPN HERNIA RPR/DEBRIDEMENT CLOSURE 07/01/2008 LAPAROSCOPIC APPENDECTOMY LAPS SURG CHOLECYSTECTOMY W/CHOLANGIOGRAPHY 08/24/2007 LIG/TRNSXJ FLP TUBE ABDL/VAG APPR UNI/BI PREOP PLACEMENT NEEDLE LOC 08/29/2009 left breast REP INIT INCI/ VENTRAL HERNIA 11/27/2020 REPAIR FIRST ABDOMINAL WALL HERNIA 07/01/2008 REVISE MEDIAN N/CARPAL TUNNEL SURG Left 11/10/2022 Left CTR SEPTOPLASTY/SUBMUCOUS RESECJ W/WO CARTILAGE GRF 2001 +/- Tim-Andre STEREOTACTIC CORE BIOPSY 07/09/2009 LEFT BREAST ALLERGIES Doxycycline, Entex [Phenylephrine-Guaifenesin], Erythromycin, Flexeril [Cyclobenzaprine Hcl], Omnicef [Cefdinir], Penicillin G, Risperdal [Risperidone], Ultram [Tramadol Hcl], and Valtrex [Valacyclovir Hcl] MEDICATIONS Current Outpatient Medications Medication Sig tiZANidine (ZANAFLEX) 4 mg tablet Take 1 tablet by mouth every 8 hours as needed (muscle spasms). venlafaxine (EFFEXOR) 50 mg tablet Take 1 tablet by mouth once daily. guaiFENesin (MUCINEX) 600 mg 12 hr tablet Take 2 tablets by mouth two times a day as needed for cold/allergy symptoms. gabapentin (NEURONTIN) 400 mg capsule Take 1 capsule by mouth three times a day for 180 days. benzonatate (TESSALON PERLE) 100 mg capsule Take 1 capsule by mouth three times a day as needed for cough. venlafaxine ER (EFFEXOR XR) 150 mg 24 hr capsule Take 1 capsule by mouth once daily. pantoprazole DR (PROTONIX) 40 mg tablet TAKE 1 TABLET BY MOUTH ON AN EMPTY STOMACH 1/2 HOUR BEFORE A MEAL TWICE DAILY albuterol HFA (VENTOLIN HFA) 90 mcg/actuation inhaler Inhale 2 Puffs as instructed every 4 hours as needed for wheezing/shortness of breath. cetirizine (ZYRTEC) 10 mg tablet Take 1 tablet by mouth once daily. metoprolol succinate ER (TOPROL XL) 25 mg 24 hr tablet Take 0.5 tablets by mouth once daily. atorvastatin (LIPITOR) 40 mg tablet Take 1 tablet by mouth once daily. aspirin, enteric coated (ASPIRIN, ENTERIC COATED) 81 mg EC tablet TAKE 1 TABLET BY MOUTH EVERY DAY docusate sodium (COLACE) 100 mg capsule Take 1 capsule by mouth twice daily as needed for constipation. acetaminophen (TYLENOL) 500 mg tablet Take 2 tablets by mouth every 8 hours as needed for pain. COMBIVENT RESPIMAT 20-100 mcg/actuation inhaler INHALE 1 PUFF INSTRUCTED FOUR TIMES DAILY NEEDED. nitroglycerin sublingual (NITROQUICK) 0.4 mg SL tablet Dissolve 1 tablet under the tongue every 5 minutes as needed for chest pain. nitroglycerin sublingual (NITROQUICK) 0.4 mg SL tablet Dissolve 1 tablet under the tongue every 5 minutes as needed for Chest Pain. No current facility-administered medications for this visit. FAMILY HISTORY Problem Relation Age of Onset Hypertension Mother Diabetes Mother Systemic Lupus Erythematosus Mother Alcohol/Drug Father (cardiac issues from this) Diabetes Father Allergies Father Cancer Father Esophageal Coronary Artery Disease Maternal Grandmother Emphysema Paternal Grandfather Asthma Son Diabetes Sister Diabetes Brother Cancer Other All through my father's family. Social History Tobacco Use Smoking s (more content not included)... [facility] 01-14-2025 History of Present illness Narrative This is a 49 year old female who presents today with: Patient presents with: Mouth/Lip Problem: Thrush Sinusitis HISTORY OF PRESENT ILLNESS: Bev Webb is a 49 year old female. Patient presents with: Mouth/Lip Problem: Thrush Sinusitis Sore tongue with white plaque. Sinusitis returning and feels bad. Whole body hurts Headache is back Eating taiwanese yogurt- doesn't like it but it helped Vaginal drainage- white curd-like vaginal drainage Coughing a little EAR PAIN Sore throat Headache PAST MEDICAL HISTORY: PAST MEDICAL HISTORY Diagnosis Date Abnormal mammogram, unspecified LEFT BREAST Abnormal Pap smear and cervical HPV (human papillomavirus) CAD (coronary artery disease) 2103 diffuse moderate CAD in the left main and RCA-40-50%, seeing Dr. Chase Centrilobular emphysema (HCC) Chronic cholecystitis 08/24/07 Chronic depressive personality disorder Chronic gastric ulcer without mention of hemorrhage, perforation, without mention of obstruction COPD with chronic bronchitis (HCC) Generalized anxiety disorder HTN (hypertension) Hyperlipidemia Incisional hernia without mention of obstruction or gangrene Irritable bowel syndrome Lumbago PONV (postoperative nausea and vomiting) Raynaud's phenomenon (by history or observed) Tobacco use disorder, continuous Daily smoker since age 16. PAST SURGICAL HISTORY Procedure Laterality Date APPENDECTOMY ENDOMETRIAL BX W/WO ENDOCERVIX BX W/O DILAT SPX 01/01/2009 Menorrhagia ESOPHAGOGASTRODUODENOSCOPY TRANSORAL DIAGNOSTIC 09/26/2012 EGD EXC BREAST LES PREOP PLMT RAD MARKER OPEN 1 LES 08/29/2009 left breast HEART CATHETERIZATION 11/07/2013 IMPLANT MESH OPN HERNIA RPR/DEBRIDEMENT CLOSURE 07/01/2008 LAPAROSCOPIC APPENDECTOMY LAPS SURG CHOLECYSTECTOMY W/CHOLANGIOGRAPHY 08/24/2007 LIG/TRNSXJ FLP TUBE ABDL/VAG APPR UNI/BI PREOP PLACEMENT NEEDLE LOC 08/29/2009 left breast REP INIT INCI/ VENTRAL HERNIA 11/27/2020 REPAIR FIRST ABDOMINAL WALL HERNIA 07/01/2008 REVISE MEDIAN N/CARPAL TUNNEL SURG Left 11/10/2022 Left CTR SEPTOPLASTY/SUBMUCOUS RESECJ W/WO CARTILAGE GRF 2001 +/- Tim-Andre STEREOTACTIC CORE BIOPSY 07/09/2009 LEFT BREAST ALLERGIES Doxycycline, Entex [Phenylephrine-Guaifenesin], Erythromycin, Flexeril [Cyclobenzaprine Hcl], Omnicef [Cefdinir], Penicillin G, Risperdal [Risperidone], Ultram [Tramadol Hcl], and Valtrex [Valacyclovir Hcl] MEDICATIONS Current Outpatient Medications Medication Sig tiZANidine (ZANAFLEX) 4 mg tablet Take 1 tablet by mouth every 8 hours as needed (muscle spasms). venlafaxine (EFFEXOR) 50 mg tablet Take 1 tablet by mouth once daily. guaiFENesin (MUCINEX) 600 mg 12 hr tablet Take 2 tablets by mouth two times a day as needed for cold/allergy symptoms. gabapentin (NEURONTIN) 400 mg capsule Take 1 capsule by mouth three times a day for 180 days. benzonatate (TESSALON PERLE) 100 mg capsule Take 1 capsule by mouth three times a day as needed for cough. venlafaxine ER (EFFEXOR XR) 150 mg 24 hr capsule Take 1 capsule by mouth once daily. pantoprazole DR (PROTONIX) 40 mg tablet TAKE 1 TABLET BY MOUTH ON AN EMPTY STOMACH 1/2 HOUR BEFORE A MEAL TWICE DAILY albuterol HFA (VENTOLIN HFA) 90 mcg/actuation inhaler Inhale 2 Puffs as instructed every 4 hours as needed for wheezing/shortness of breath. cetirizine (ZYRTEC) 10 mg tablet Take 1 tablet by mouth once daily. metoprolol succinate ER (TOPROL XL) 25 mg 24 hr tablet Take 0.5 tablets by mouth once daily. atorvastatin (LIPITOR) 40 mg tablet Take 1 tablet by mouth once daily. aspirin, enteric coated (ASPIRIN, ENTERIC COATED) 81 mg EC tablet TAKE 1 TABLET BY MOUTH EVERY DAY docusate sodium (COLACE) 100 mg capsule Take 1 capsule by mouth twice daily as needed for constipation. acetaminophen (TYLENOL) 500 mg tablet Take 2 tablets by mouth every 8 hours as needed for pain. COMBIVENT RESPIMAT 20-100 mcg/actuation inhaler INHALE 1 PUFF INSTRUCTED FOUR TIMES DAILY NEEDED. nitroglycerin sublingual (NITROQUICK) 0.4 mg SL tablet Dissolve 1 tablet under the tongue every 5 minutes as needed for chest pain. nitroglycerin sublingual (NITROQUICK) 0.4 mg SL tablet Dissolve 1 tablet under the tongue every 5 minutes as needed for Chest Pain. No current facility-administered medications for this visit. FAMILY HISTORY Problem Relation Age of Onset Hypertension Mother Diabetes Mother Systemic Lupus Erythematosus Mother Alcohol/Drug Father (cardiac issues from this) Diabetes Father Allergies Father Cancer Father Esophageal Coronary Artery Disease Maternal Grandmother Emphysema Paternal Grandfather Asthma Son Diabetes Sister Diabetes Brother Cancer Other All through my father's family. Social History Tobacco Use Smoking status: Every Day Current packs/day: 1.00 Average packs/day: 1 pack/day for 34.0 years (34.0 ttl pk-yrs) Types: Cigarettes Start date: 01/20/1991 Smokeless tobacco: Never Tobacco comments: Father smoked in childhood home, currently lives with a smoker who is willing to quit with patient. Vaping Use Vaping status: Never Used Substance Use Topics Alcohol use: No Drug use: Yes Types: Marijuana Comment: Smokes 2-3 times a week EXAM: BP 138/92 Pulse 94 Temp 37.4 C (99.4 F) (Left Tympanic) Wt 76.2 kg (168 lb) LMP 07/21/2023 (Within Days) SpO2 97% BMI 30.33 kg/m PHYSICAL EXAM: Physical Exam Vitals reviewed. Constitutional: Appearance: Normal appearance. HENT: Head: Normocephalic. Right Ear: Tympanic membrane, ear canal and external ear normal. There is no impacted cerumen. Left Ear: Tympanic membrane, ear canal and external ear normal. There is no impacted cerumen. Nose: No congestion or rhinorrhea. Mouth/Throat: Pharynx: Oropharyngeal exudate and posterior oropharyngeal erythema present. Cardiovascular: Rate and Rhythm: Normal rate and regular rhythm. Pulses: Normal pulses. Heart sounds: Normal heart sounds. Pulmonary: Effort: Pulmonary effort is normal. Breath sounds: Normal breath sounds. Musculoskeletal: General: Normal range of motion. Comments: Moves all ext. Without difficulty, generalized weakness Skin: General: Skin is warm and dry. Neurological: Mental Status: She is alert and oriented to person, place, and time. LABS: ASSESSMENT/PLAN: 1. Candidiasis - ICD9: 112.9, ICD10: B37.9 (primary diagnosis) Vaginal and thrush - FLUCONAZOLE 100 MG TABLET daily for 3 days - SULFAMETHOXAZOLE 800 MG-TRIMETHOPRIM 160 MG TABLET 2 x day for 14 days 2. Other acute recurrent sinusitis - ICD9: 461.9, ICD10: J01.81 - Will begin treatment with Bactrim DS BID 14 days - FLUCONAZOLE 100 MG TABLET - SULFAMETHOXAZOLE 800 MG-TRIMETHOPRIM 160 MG TABLET Discussed treatment plan and patient voices understanding. Patient's questions answered appropriately. Medications and potential side effects were discussed and patient voices understanding. Return to the office as scheduled or as needed for worsening/no improvement. Amita Pope APRN.CNP documented in this encounter [place] 01-14-2025 Telephone encounter Note Pt called in and reports she saw Izabel Pope MARK UP DESIGNER on 01/03/25. She said she told her to come back if symptoms got worse. Pt reports she has thrush, her tongue is completely coated in white. Pt also reports her sinus infection symptoms are coming back. Pt scheduled today with Izabel Pope at 240 pm. [place] 01-14-2025 Miscellaneous Notes Pt called in and reports she saw Izabel Pope MARK UP DESIGNER on 01/03/25. She said she told her to come back if symptoms got worse. Pt reports she has thrush, her tongue is completely coated in white. Pt also reports her sinus infection symptoms are coming back. Pt scheduled today with Izabel Pope at 240 pm. documented in this encounter [place] 01-04-2025 Telephone encounter Note Left a message for pt to call the office and ask to speak to a nurse. Camila Herzog LPN [place] 01-04-2025 Miscellaneous Notes Left a message for pt to call the office and ask to speak to a nurse. Camila Herzog LPN ----- Message from Amita Francesca Tosiha sent at 01/03/2025 5:44 PM EST ----- Please let patient know that she still has an elevated white blood count. Her kidney function is slightly weak. Make certain to drink 64 ounces or more of water daily. Please recheck her blood count in 1 week so I can make sure that is trending down. If she gets worse instead of better, call us, I will repeat an antibiotic. Her exam today looked. Okay. She should know if they gave her any steroids, that will increase her white blood count also. Please let patient know that she still has an elevated white blood count. Her kidney function is slightly weak. Make certain to drink 64 ounces or more of water daily. Please recheck her blood count in 1 week so I can make sure that is trending down. If she gets worse instead of better, call us, I will repeat an antibiotic. Her exam today looked. Okay. She should know if they gave her any steroids, that will increase her white blood count also. documented in this encounter [place] 01-04-2025 Telephone encounter Note ----- Message from Amita Pope sent at 01/03/2025 5:44 PM EST ----- Please let patient know that she still has an elevated white blood count. Her kidney function is slightly weak. Make certain to drink 64 ounces or more of water daily. Please recheck her blood count in 1 week so I can make sure that is trending down. If she gets worse instead of better, call us, I will repeat an antibiotic. Her exam today looked. Okay. She should know if they gave her any steroids, that will increase her white blood count also. [place] 01-03-2025 Progress note Formatting of t his note might be different from the original. Please let patient know that she still has an elevated white blood count. Her kidney function is slightly weak. Make certain to drink 64 ounces or more of water daily. Please recheck her blood count in 1 week so I can make sure that is trending down. If she gets worse instead of better, call us, I will repeat an antibiotic. Her exam today looked. Okay. She should know if they gave her any steroids, that will increase her white blood count also. [place] 01-03-2025 Instructions Amita Pope APRN.CNP - 01/03/2025 2:05 PM EST - Medrol dose pack - TIZANIDINE 4 MG TABLET - Get labs work today - GUAIFENESIN ER 600 MG TABLET, EXTENDED RELEASE 12 HR documented in this encounter [place] 01-03-2025 Note HNO ID: [id number] Author: AMITA POPE APRN.CNP Service: ? Author Type: Nurse Practitioner Type: Progress Notes Filed: 01/03/2025 14:06 Note Text: This is a 49 year old female who presents today with: Patient presents with: ER F/U: [facility] 12/26/24 [place] HISTORY OF PRESENT ILLNESS: Bev Webb is a 49 year old female. Patient presents with: ER F/U: [facility] 12/26/24 [facility] follow up 2 weeks ago, she was treated in Urgent care for URI with Zpak Got worse. Went to ER @ [facility]- passed out in ER. Told she there Couldn't find a pulse. They work up noted low magnesium. Son told her to go ER @ [facility]. WBC high. They treated with Levaquin. Only 1 day left. Now blowing out green mucus. PAST MEDICAL HISTORY: PAST MEDICAL HISTORY Diagnosis Date Abnormal mammogram, unspecified LEFT BREAST Abnormal Pap smear and cervical HPV (human papillomavirus) CAD (coronary artery disease) 2103 diffuse moderate CAD in the left main and RCA-40-50%, seeing Dr. Chase Centrilobular emphysema (HCC) Chronic cholecystitis 08/24/07 Chronic depressive personality disorder Chronic gastric ulcer without mention of hemorrhage, perforation, without mention of obstruction COPD with chronic bronchitis (HCC) Generalized anxiety disorder HTN (hypertension) Hyperlipidemia Incisional hernia without mention of obstruction or gangrene Irritable bowel syndrome Lumbago PONV (postoperative nausea and vomiting) Raynaud's phenomenon (by history or observed) Tobacco use disorder, continuous Daily smoker since age 16. PAST SURGICAL HISTORY Procedure Laterality Date APPENDECTOMY ENDOMETRIAL BX W/WO ENDOCERVIX BX W/O DILAT SPX 01/01/2009 Menorrhagia ESOPHAGOGASTRODUODENOSCOPY TRANSORAL DIAGNOSTIC 09/26/2012 EGD EXC BREAST LES PREOP PLMT RAD MARKER OPEN 1 LES 08/29/2009 left breast HEART CATHETERIZATION 11/07/2013 IMPLANT MESH OPN HERNIA RPR/DEBRIDEMENT CLOSURE 07/01/2008 LAPAROSCOPIC APPENDECTOMY LAPS SURG CHOLECYSTECTOMY W/CHOLANGIOGRAPHY 08/24/2007 LIG/TRNSXJ FLP TUBE ABDL/VAG APPR UNI/BI PREOP PLACEMENT NEEDLE LOC 08/29/2009 left breast REP INIT INCI/ VENTRAL HERNIA 11/27/2020 REPAIR FIRST ABDOMINAL WALL HERNIA 07/01/2008 REVISE MEDIAN N/CARPAL TUNNEL SURG Left 11/10/2022 Left CTR SEPTOPLASTY/SUBMUCOUS RESECJ W/WO CARTILAGE GRF 2001 +/- Akhil STEREOTACTIC CORE BIOPSY 07/09/2009 LEFT BREAST ALLERGIES Doxycycline, Entex [Phenylephrine-Guaifenesin], Erythromycin, Flexeril [Cyclobenzaprine Hcl], Omnicef [Cefdinir], Penicillin G, Risperdal [Risperidone], Ultram [Tramadol Hcl], and Valtrex [Valacyclovir Hcl] MEDICATIONS Current Outpatient Medications Medication Sig gabapentin (NEURONTIN) 400 mg capsule Take 1 capsule by mouth three times a day for 180 days. levoFLOXacin (LEVAQUIN) 500 mg tablet Take 1 tablet by mouth once daily for 6 days. benzonatate (TESSALON PERLE) 100 mg capsule Take 1 capsule by mouth three times a day as needed for cough. venlafaxine ER (EFFEXOR XR) 37.5 mg 24 hr capsule Take 1 capsule by mouth once daily. Add 37.5mg to current 150mg XL daily venlafaxine ER (EFFEXOR XR) 150 mg 24 hr capsule Take 1 capsule by mouth once daily. pantoprazole DR (PROTONIX) 40 mg tablet TAKE 1 TABLET BY MOUTH ON AN EMPTY STOMACH 1/2 HOUR BEFORE A MEAL TWICE DAILY albuterol HFA (VENTOLIN HFA) 90 mcg/actuation inhaler Inhale 2 Puffs as instructed every 4 hours as needed for wheezing/shortness of breath. cetirizine (ZYRTEC) 10 mg tablet Take 1 tablet by mouth once daily. metoprolol succinate ER (TOPROL XL) 25 mg 24 hr tablet Take 0.5 tablets by mouth once daily. nitroglycerin sublingual (NITROQUICK) 0.4 mg SL tablet Dissolve 1 tablet under the tongue every 5 minutes as needed for chest pain. atorvastatin (LIPITOR) 40 mg tablet Take 1 tablet by mouth once daily. aspirin, enteric coated (ASPIRIN, ENTERIC COATED) 81 mg EC tablet TAKE 1 TABLET BY MOUTH EVERY DAY docusate sodium (COLACE) 100 mg capsule Take 1 capsule by mouth twice daily as needed for constipation. acetaminophen (TYLENOL) 500 mg tablet Take 2 tablets by mouth every 8 hours as needed for pain. COMBIVENT RESPIMAT 20-100 mcg/actuation inhaler INHALE 1 PUFF INSTRUCTED FOUR TIMES DAILY NEEDED. nitroglycerin sublingual (NITROQUICK) 0.4 mg SL tablet Dissolve 1 tablet under the tongue every 5 minutes as needed for Chest Pain. No current facility-administered medications for this visit. FAMILY HISTORY Problem Relation Age of Onset Hypertension Mother Diabetes Mother Systemic Lupus Erythematosus Mother Alcohol/Drug Father (cardiac issues from this) Diabetes Father Allergies Father Cancer Father Esophageal Coronary Artery Disease Maternal Grandmother Emphysema Paternal Grandfather Asthma Son Diabetes Sister Diabetes Brother Cancer Other All through my father's family. Social History Tobacco Use Smoking status: Every Day (more content not included)... [facility] 01-03-2025 History of Present illness Narrative This is a 49 year old female who presents today with: Patient presents with: ER F/U: [facility] 12/26/24 [place] HISTORY OF PRESENT ILLNESS: Bev Webb is a 49 year old female. Patient presents with: ER F/U: [facility] 12/26/24 [facility] follow up 2 weeks ago, she was treated in Urgent care for URI with Zpak Got worse. Went to ER @ [facility]- passed out in ER. Told she there Couldn't find a pulse. They work up noted low magnesium. Son told her to go ER @ [facility]. WBC high. They treated with Levaquin. Only 1 day left. Now blowing out green mucus. PAST MEDICAL HISTORY: PAST MEDICAL HISTORY Diagnosis Date Abnormal mammogram, unspecified LEFT BREAST Abnormal Pap smear and cervical HPV (human papillomavirus) CAD (coronary artery disease) 2103 diffuse moderate CAD in the left main and RCA-40-50%, seeing Dr. Chase Centrilobular emphysema (HCC) Chronic cholecystitis 08/24/07 Chronic depressive personality disorder Chronic gastric ulcer without mention of hemorrhage, perforation, without mention of obstruction COPD with chronic bronchitis (HCC) Generalized anxiety disorder HTN (hypertension) Hyperlipidemia Incisional hernia without mention of obstruction or gangrene Irritable bowel syndrome Lumbago PONV (postoperative nausea and vomiting) Raynaud's phenomenon (by history or observed) Tobacco use disorder, continuous Daily smoker since age 16. PAST SURGICAL HISTORY Procedure Laterality Date APPENDECTOMY ENDOMETRIAL BX W/WO ENDOCERVIX BX W/O DILAT SPX 01/01/2009 Menorrhagia ESOPHAGOGASTRODUODENOSCOPY TRANSORAL DIAGNOSTIC 09/26/2012 EGD EXC BREAST LES PREOP PLMT RAD MARKER OPEN 1 LES 08/29/2009 left breast HEART CATHETERIZATION 11/07/2013 IMPLANT MESH OPN HERNIA RPR/DEBRIDEMENT CLOSURE 07/01/2008 LAPAROSCOPIC APPENDECTOMY LAPS SURG CHOLECYSTECTOMY W/CHOLANGIOGRAPHY 08/24/2007 LIG/TRNSXJ FLP TUBE ABDL/VAG APPR UNI/BI PREOP PLACEMENT NEEDLE LOC 08/29/2009 left breast REP INIT INCI/ VENTRAL HERNIA 11/27/2020 REPAIR FIRST ABDOMINAL WALL HERNIA 07/01/2008 REVISE MEDIAN N/CARPAL TUNNEL SURG Left 11/10/2022 Left CTR SEPTOPLASTY/SUBMUCOUS RESECJ W/WO CARTILAGE GRF 2001 +/- Akhil STEREOTACTIC CORE BIOPSY 07/09/2009 LEFT BREAST ALLERGIES Doxycycline, Entex [Phenylephrine-Guaifenesin], Erythromycin, Flexeril [Cyclobenzaprine Hcl], Omnicef [Cefdinir], Penicillin G, Risperdal [Risperidone], Ultram [Tramadol Hcl], and Valtrex [Valacyclovir Hcl] MEDICATIONS Current Outpatient Medications Medication Sig gabapentin (NEURONTIN) 400 mg capsule Take 1 capsule by mouth three times a day for 180 days. levoFLOXacin (LEVAQUIN) 500 mg tablet Take 1 tablet by mouth once daily for 6 days. benzonatate (TESSALON PERLE) 100 mg capsule Take 1 capsule by mouth three times a day as needed for cough. venlafaxine ER (EFFEXOR XR) 37.5 mg 24 hr capsule Take 1 capsule by mouth once daily. Add 37.5mg to current 150mg XL daily venlafaxine ER (EFFEXOR XR) 150 mg 24 hr capsule Take 1 capsule by mouth once daily. pantoprazole DR (PROTONIX) 40 mg tablet TAKE 1 TABLET BY MOUTH ON AN EMPTY STOMACH 1/2 HOUR BEFORE A MEAL TWICE DAILY albuterol HFA (VENTOLIN HFA) 90 mcg/actuation inhaler Inhale 2 Puffs as instructed every 4 hours as needed for wheezing/shortness of breath. cetirizine (ZYRTEC) 10 mg tablet Take 1 tablet by mouth once daily. metoprolol succinate ER (TOPROL XL) 25 mg 24 hr tablet Take 0.5 tablets by mouth once daily. nitroglycerin sublingual (NITROQUICK) 0.4 mg SL tablet Dissolve 1 tablet under the tongue every 5 minutes as needed for chest pain. atorvastatin (LIPITOR) 40 mg tablet Take 1 tablet by mouth once daily. aspirin, enteric coated (ASPIRIN, ENTERIC COATED) 81 mg EC tablet TAKE 1 TABLET BY MOUTH EVERY DAY docusate sodium (COLACE) 100 mg capsule Take 1 capsule by mouth twice daily as needed for constipation. acetaminophen (TYLENOL) 500 mg tablet Take 2 tablets by mouth every 8 hours as needed for pain. COMBIVENT RESPIMAT 20-100 mcg/actuation inhaler INHALE 1 PUFF INSTRUCTED FOUR TIMES DAILY NEEDED. nitroglycerin sublingual (NITROQUICK) 0.4 mg SL tablet Dissolve 1 tablet under the tongue every 5 minutes as needed for Chest Pain. No current facility-administered medications for this visit. FAMILY HISTORY Problem Relation Age of Onset Hypertension Mother Diabetes Mother Systemic Lupus Erythematosus Mother Alcohol/Drug Father (cardiac issues from this) Diabetes Father Allergies Father Cancer Father Esophageal Coronary Artery Disease Maternal Grandmother Emphysema Paternal Grandfather Asthma Son Diabetes Sister Diabetes Brother Cancer Other All through my father's family. Social History Tobacco Use Smoking status: Every Day Current packs/day: 1.00 Average packs/day: 1 pack/day for 34.0 years (34.0 ttl pk-yrs) Types: Cigarettes Start date: 01/20/1991 Smokeless tobacco: Never Tobacco comments: Father smoked in childhood home, currently lives with a smoker who is willing to quit with patient. Vaping Use Vaping status: Never Used Substance Use Topics Alcohol use: No Drug use: Yes Types: Marijuana Comment: Smokes 2-3 times a week + H/A- had + Head congestion + ear pain- had + Sore throat + Chest congestion + Fatigue + a few body aches + fever and chills Some wheezing and dyspnea Smoker + nausea- had Never vomited No rash Had diarrhea Eating, drinking only Pepsi Low back hurting really bad EXAM: BP 140/82 Pulse 115 Temp 37.5 C (99.5 F) (Left Tympanic) Wt 75.8 kg (167 lb) LMP 07/21/2023 (Within Days) SpO2 97% BMI 30.15 kg/m PHYSICAL EXAM: Physical Exam Vitals reviewed. Constitutional: Appearance: Normal appearance. HENT: Head: Normocephalic. Right Ear: Tympanic membrane, ear canal and external ear normal. There is no impacted cerumen. Left Ear: Tympanic membrane, ear canal and external ear normal. There is no impacted cerumen. Nose: Congestion and rhinorrhea present. Mouth/Throat: Pharynx: No oropharyngeal exudate or posterior oropharyngeal erythema. Cardiovascular: Rate and Rhythm: Normal rate and regular rhythm. Pulses: Normal pulses. Heart sounds: Normal heart sounds. Pulmonary: Effort: Pulmonary effort is normal. Breath sounds: Normal breath sounds. Comments: Negative egophony Abdominal: General: Bowel sounds are normal. Palpations: Abdomen is soft. Tenderness: There is no abdominal tenderness. There is no guarding or rebound. Musculoskeletal: Right lower leg: No edema. Left lower leg: No edema. Comments: Generalized weakness Palpable tenderness at L3 that wraps around right side Skin: General: Skin is warm and dry. Neurological: Mental Status: She is alert and oriented to person, place, and time. Psychiatric: Mood and Affect: Mood normal. Behavior: Behavior normal. LABS: ASSESSMENT/PLAN: 1. Chronic low back pain with sciatica, sciatica laterality unspecified, unspecified back pain laterality - ICD9: 724.2, 724.3, 338.29, ICD10: M54.40, G89.29 (primary diagnosis) Chronic low back pain - Medrol dose pack - TIZANIDINE 4 MG TABLET 2. Respiratory infection - ICD9: 519.8, ICD10: J98.8 Complete Levaquin - Medrol taper - Mucinex 2 x day - GUAIFENESIN ER 600 MG TABLET, EXTENDED RELEASE 12 HR - BASIC METABOLIC PANEL - MAGNESIUM - COMPLETE BLOOD COUNT AND DIFFERENTIAL 3. Hypomagnesemia - ICD9: 275.2, ICD10: E83.42 Check level - BASIC METABOLIC PANEL - MAGNESIUM Discussed treatment plan and patient voices understanding. Patient's questions answered appropriately. Medications and potential side effects were discussed and patient voices understanding. Return to the office as scheduled or as needed for worsening/no improvement. Amita Pope APRN.SHERWIN documented in this encounter [place] 01-02-2025 Telephone encounter Note Pt calling in to set up ER follow up appt. Pt states she was seen in on 12/17 and was given a Z pack. Pt did not get better and ended up going to [facility] ER on 12/26 where she proceeded to pass out and had no pulse and had to have chest compressions (records under scanned documents). She went in because she still felt so sick and felt like she was going to pass out and was very weak. Was admitted overnight. Then Tuesday, pt went to [facility] ER for a second opinion. They found her WBC was elevated and put her on Levaquin. She is now having a productive cough of yellow phlegm and is coughing a lot. Pt had a lot of testing done at [facility]. ER follow up appt made for tomorrow at 120 pm with Amita Pope. [place] 01-02-2025 Miscellaneous Notes Pt calling in to set up ER follow up appt. Pt states she was seen in on 12/17 and was given a Z pack. Pt did not get better and ended up going to [facility] ER on 12/26 where she proceeded to pass out and had no pulse and had to have chest compressions (records under scanned documents). She went in because she still felt so sick and felt like she was going to pass out and was very weak. Was admitted overnight. Then Tuesday, pt went to [facility] ER for a second opinion. They found her WBC was elevated and put her on Levaquin. She is now having a productive cough of yellow phlegm and is coughing a lot. Pt had a lot of testing done at [facility]. ER follow up appt made for tomorrow at 120 pm with Amita Pope. documented in this encounter [place] 12-31-2024 Telephone encounter Note PATIENT TREATED AT ED ON 12/28/24. SHE IS WANTING TO CALL BACK TO [facility] PCP ER F/U AFTER SHE CONFIRMS TRANSPORTATION. Prescription Refill Information The patient has been identified by name and date of : Yes Caregiver verified no other encounters exist for this prescription request: Yes Caregiver confirmed with patient/requestor that no other refills are due, in the near future, with this provider at this time: Yes The last office visit in the department: 03/27/24 Does the patient have a future office visit with this provider/department: NO Requested Prescriptions Pending Prescriptions Disp Refills gabapentin (NEURONTIN) 400 mg capsule 270 capsule 1 Sig: Take 1 capsule by mouth three times a day for 180 days. Janene Rizvi December 31, 2024 8:49 AM [place] 12-31-2024 Miscellaneous Notes PATIENT TREATED AT ED ON 12/28/24. SHE IS WANTING TO CALL BACK TO [facility] PCP ER F/U AFTER SHE CONFIRMS TRANSPORTATION. Prescription Refill Information The patient has been identified by name and date of : Yes Caregiver verified no other encounters exist for this prescription request: Yes Caregiver confirmed with patient/requestor that no other refills are due, in the near future, with this provider at this time: Yes The last office visit in the department: 03/27/24 Does the patient have a future office visit with this provider/department: NO Requested Prescriptions Pending Prescriptions Disp Refills gabapentin (NEURONTIN) 400 mg capsule 270 capsule 1 Sig: Take 1 capsule by mouth three times a day for 180 days. Janene Rizvi December 31, 2024 8:49 AM documented in this encounter [place] 12-28-2024 Note SARS-COV-2 (AGENT OF COVID-19) RNA: Not detected INFLUENZA A RNA: Not detected INFLUENZA B RNA: Not detected RESPIRATORY SYNCYTIAL VIRUS (RSV) RNA: Not detected [facility] Comment on above: Performed By: #### [id number] ####[facility] LABORATORYCLIA [id number] [place] [address] [place] 12-27-2024 Note [facility] Medical Records Department [address] [place] [id number] Discharge Summary 12/27/24 1317 MR#: [id number] Acct: [id number] Name: BEV WEBB Rep #: [id number] : 1975 49 From: Singh Tenorio MD PCP: Dr. Martinez Garcia MD Status:ADM IN Location: ICU [id number] Providers Date of Admission: 12/26/24 Date of Discharge: 12/27/24 Primary Care Physician: Dr. Martinez Garcia MD Reason For Visit: COLLAPSE WITH SUSPECTED SYNCOMPE Diagnosis Discharge Diagnosis (1) Loss of consciousness: Status: Acute Code(s): R40.20 - Unspecified coma Plan 49-year-old female was admitted with episode of unconsciousness and unresponsiveness initially. She was having flulike symptoms for couple days, flank pain and felt like lightheaded/going to pass out before coming to ED. When the nurse tried to get vitals in triage, she felt like laying down and then became unresponsive, did not feel pulse therefore started chest compression. She also had agonal breathing. After about 10 to 15 seconds of chest compressions she woke up. CODE OXANA was called. # Loss of consciousness most likely due to vasovagal syncope from hypotension and bradycardia: Patient is being admitted in ICU as PCU status. Serial troponins negative therefore ACS ruled out -2D echo was reviewed. Mild concentric LVH, stage I diastolic dysfunction. EF 60%. Trivial MR but no significant valvular abnormality. Discussed with antique furniture repairer. Patient is being discharged. Orthostatic vitals were negative. Patient does not have chest pain or shortness of breath. EKG reviewed. No acute ST-T changes -Additionally CTA of the chest negative 2D echo 12/26/2024 Interpretation Summary Mild concentric left ventricular hypertrophy. The left ventricular ejection fraction is 60 %. Stage 1 diastolic dysfunction. #Hx non obstructive CAD -Given aspirin in ED, continue Imdur and atorvastatin -Previously 60% stenosis of RCA in 2020 without any need for stenting -Troponins normal and patient does not nor did she ever have chest pain during any of this -If echo abnormal would consult cardiology, echo ordered -EKG with nonspecific T waves however this was similar to previous EKGs Triple PCR for SARS-CoV-2, flu and RSV are negative. Respiratory panel negative., Common respiratory viral pathogens were ruled out. # Right sided back pain -May be musculoskeletal in nature as UA not infectious and CT abdomen negative #Depression/anxiety -Continue home medications #GERD -Continue PPI #Tobacco use -Advise cessation -Nicotine replacement available if desired #DVT ppx: SCDs Discharge medication reconciliation done. Discharge follow-up instructions completed. Discharge process discussed with the patient and all questions were answered to patient's satisfaction. Follow with PCP in 1 to 2 weeks Total time spent, exact 35 minutes on discharge meds reconciliation, examination, coordination of care with nurses and ancillary staff, review of imaging and blood test and discussion with the patient on follow-up instructions. Medications at Discharge Home Medications pantoprazole 40 mg tablet,delayed release 40 mg PO BID gerd 04/09/14 cetirizine 10 mg tablet 10 mg PO DAILY allergies 04/14/20 gabapentin 400 mg capsule 400 mg PO TID nerve pain 06/17/20 venlafaxine 150 mg tablet,extended release 24 hr 150 mg PO DAILY depression 06/17/20 venlafaxine 37.5 mg capsule,extended release 24 hr 37.5 mg PO DAILY 09/12/24 aspirin 81 mg capsule 81 mg PO DAILY #1 cap 10/03/24 atorvastatin 40 mg tablet 40 mg PO QHS #30 tabs 10/03/24 albuterol sulfate 90 mcg/actuation aerosol inhaler 2 puff inhalation Q4H PRN PRN wheezing 12/26/24 isosorbide mononitrate 30 mg tablet,extended release 24 hr 30 mg PO DAILY #30 tabs 12/27/24 Physical Exam Narrative Seen and examined Patient is stated that she passed out in the past when she was at the age of 16 when she was started on control pills. She also had 3 heart cath last 1 was in March 2021. Was reported distal RCA 60% stenosis, normal LV systolic function with mild anterior hypokinesis, EF 45% by LV gram Mild soreness over chest from chest compression Physical General: Alert, Oriented x3, Cooperative HEENT: Atraumatic, PERRLA, EOMI, Normocephalic Oral: No Gingival or Mucosal Lesions/ Ulcerations Neck: Supple, No JVD, Negative Carotid Bruits Chest wall/Lungs: Air entry diminished in bilateral lung bases. No crepitation/rhonchi Cardiovascular: Normal sinus rhythm, Normal S1, Normal S2, No M/G/R Abdomen: Bowel Sounds Present, Soft, Non Tender, Non-Distended : No dysuria. No renal angle tenderness. No suprapubic tenderness. Extremities: No edema, Capillary Refill Less than 3 Seconds Skin: No rashes, No breakdown Musculoskeletal: No Tenderness to Palpation of Joints or Extremities Neurological: Cranial nerves II-XII (more content not included)... [facility] 12-17-2024 Note HNO ID: [id number] Author: LINDSAY ASHLEY APRN.OXYGEN FURNACE OPERATOR Service: ? Author Type: Nurse Practitioner Type: Progress Notes Filed: 12/17/2024 14:56 Note Text: CC: Patient presents with: Sinus Problem: sinus pressure, drainage, ear pain, gi upset x 3 days HPI Bev Webb is a 49 year old female who presents today for 2-3 days of bilateral intermittent ear pain-right worse, sinus pressure, productive cough, sneezing, chills, nausea and diarrhea x 2. Her cough has become more productive with an increase in yellow/green sputum. She is a smoker and has a history of emphysema. She has decreased her smoking due to the cough. She has used Tylenol, Nyquil and Zyrtec with no change in symptoms. She has not needed to increase use of her inhalers. Denies chest pain or SOB Review of Systems Constitutional: Positive for appetite change, chills and fatigue. HENT: Positive for congestion, ear pain, postnasal drip, rhinorrhea and sneezing. Respiratory: Positive for cough. Negative for shortness of breath and wheezing. Cardiovascular: Negative for chest pain and palpitations. Gastrointestinal: Positive for diarrhea and nausea. Negative for abdominal pain. Musculoskeletal: Positive for myalgias. Allergic/Immunologic: Positive for environmental allergies. PAST MEDICAL HISTORY Diagnosis Date Abnormal mammogram, unspecified LEFT BREAST Abnormal Pap smear and cervical HPV (human papillomavirus) CAD (coronary artery disease) 2103 diffuse moderate CAD in the left main and RCA-40-50%, seeing Dr. Chase Centrilobular emphysema (HCC) Chronic cholecystitis 08/24/07 Chronic depressive personality disorder Chronic gastric ulcer without mention of hemorrhage, perforation, without mention of obstruction COPD with chronic bronchitis (HCC) Generalized anxiety disorder HTN (hypertension) Hyperlipidemia Incisional hernia without mention of obstruction or gangrene Irritable bowel syndrome Lumbago PONV (postoperative nausea and vomiting) Raynaud's phenomenon (by history or observed) Tobacco use disorder, continuous Daily smoker since age 16. PAST SURGICAL HISTORY Procedure Laterality Date APPENDECTOMY ENDOMETRIAL BX W/WO ENDOCERVIX BX W/O DILAT SPX 01/01/2009 Menorrhagia ESOPHAGOGASTRODUODENOSCOPY TRANSORAL DIAGNOSTIC 09/26/2012 EGD EXC BREAST LES PREOP PLMT RAD MARKER OPEN 1 LES 08/29/2009 left breast HEART CATHETERIZATION 11/07/2013 IMPLANT MESH OPN HERNIA RPR/DEBRIDEMENT CLOSURE 07/01/2008 LAPAROSCOPIC APPENDECTOMY LAPS SURG CHOLECYSTECTOMY W/CHOLANGIOGRAPHY 08/24/2007 LIG/TRNSXJ FLP TUBE ABDL/VAG APPR UNI/BI PREOP PLACEMENT NEEDLE LOC 08/29/2009 left breast REP INIT INCI/ VENTRAL HERNIA 11/27/2020 REPAIR FIRST ABDOMINAL WALL HERNIA 07/01/2008 REVISE MEDIAN N/CARPAL TUNNEL SURG Left 11/10/2022 Left CTR SEPTOPLASTY/SUBMUCOUS RESECJ W/WO CARTILAGE GRF 2001 +/- Tim-Andre STEREOTACTIC CORE BIOPSY 07/09/2009 LEFT BREAST ALLERGIES Doxycycline, Entex [Phenylephrine-Guaifenesin], Erythromycin, Flexeril [Cyclobenzaprine Hcl], Omnicef [Cefdinir], Penicillin G, Risperdal [Risperidone], Ultram [Tramadol Hcl], and Valtrex [Valacyclovir Hcl] MEDICATIONS venlafaxine ER (EFFEXOR XR) 37.5 mg 24 hr capsule Take 1 capsule by mouth once daily. Add 37.5mg to current 150mg XL daily venlafaxine ER (EFFEXOR XR) 150 mg 24 hr capsule Take 1 capsule by mouth once daily. pantoprazole DR (PROTONIX) 40 mg tablet TAKE 1 TABLET BY MOUTH ON AN EMPTY STOMACH 1/2 HOUR BEFORE A MEAL TWICE DAILY albuterol HFA (VENTOLIN HFA) 90 mcg/actuation inhaler Inhale 2 Puffs as instructed every 4 hours as needed for wheezing/shortness of breath. cetirizine (ZYRTEC) 10 mg tablet Take 1 tablet by mouth once daily. gabapentin (NEURONTIN) 400 mg capsule Take 1 capsule by mouth three times a day for 180 days. metoprolol succinate ER (TOPROL XL) 25 mg 24 hr tablet Take 0.5 tablets by mouth once daily. nitroglycerin sublingual (NITROQUICK) 0.4 mg SL tablet Dissolve 1 tablet under the tongue every 5 minutes as needed for chest pain. atorvastatin (LIPITOR) 40 mg tablet Take 1 tablet by mouth once daily. aspirin, enteric coated (ASPIRIN, ENTERIC COATED) 81 mg EC tablet TAKE 1 TABLET BY MOUTH EVERY DAY docusate sodium (COLACE) 100 mg capsule Take 1 capsule by mouth twice daily as needed for constipation. acetaminophen (TYLENOL) 500 mg tablet Take 2 tablets by mouth every 8 hours as needed for pain. COMBIVENT RESPIMAT 20-100 mcg/actuation inhaler INHALE 1 PUFF INSTRUCTED FOUR TIMES DAILY NEEDED. nitroglycerin sublingual (NITROQUICK) 0.4 mg SL tablet Dissolve 1 tablet under the tongue every 5 minutes as needed for Chest Pain. FAMILY HISTORY Problem Relation Age of Onset Hypertension Mother Diabetes Mother Systemic Lupus Erythematosus Mother Alcohol/Drug Father (cardiac issues from this) Diabetes Father Allergies Father Cancer Father Esophageal Coronary Artery Disease Mater (more content not included)... [facility] 12-17-2024 History of Present illness Narrative CC: Patient presents with: Sinus Problem: sinus pressure, drainage, ear pain, gi upset x 3 days HPI Bev Webb is a 49 year old female who presents today for 2-3 days of bilateral intermittent ear pain-right worse, sinus pressure, productive cough, sneezing, chills, nausea and diarrhea x 2. Her cough has become more productive with an increase in yellow/green sputum. She is a smoker and has a history of emphysema. She has decreased her smoking due to the cough. She has used Tylenol, Nyquil and Zyrtec with no change in symptoms. She has not needed to increase use of her inhalers. Denies chest pain or SOB Review of Systems Constitutional: Positive for appetite change, chills and fatigue. HENT: Positive for congestion, ear pain, postnasal drip, rhinorrhea and sneezing. Respiratory: Positive for cough. Negative for shortness of breath and wheezing. Cardiovascular: Negative for chest pain and palpitations. Gastrointestinal: Positive for diarrhea and nausea. Negative for abdominal pain. Musculoskeletal: Positive for myalgias. Allergic/Immunologic: Positive for environmental allergies. PAST MEDICAL HISTORY Diagnosis Date Abnormal mammogram, unspecified LEFT BREAST Abnormal Pap smear and cervical HPV (human papillomavirus) CAD (coronary artery disease) 2103 diffuse moderate CAD in the left main and RCA-40-50%, seeing Dr. Chase Centrilobular emphysema (HCC) Chronic cholecystitis 08/24/07 Chronic depressive personality disorder Chronic gastric ulcer without mention of hemorrhage, perforation, without mention of obstruction COPD with chronic bronchitis (HCC) Generalized anxiety disorder HTN (hypertension) Hyperlipidemia Incisional hernia without mention of obstruction or gangrene Irritable bowel syndrome Lumbago PONV (postoperative nausea and vomiting) Raynaud's phenomenon (by history or observed) Tobacco use disorder, continuous Daily smoker since age 16. PAST SURGICAL HISTORY Procedure Laterality Date APPENDECTOMY ENDOMETRIAL BX W/WO ENDOCERVIX BX W/O DILAT SPX 01/01/2009 Menorrhagia ESOPHAGOGASTRODUODENOSCOPY TRANSORAL DIAGNOSTIC 09/26/2012 EGD EXC BREAST LES PREOP PLMT RAD MARKER OPEN 1 LES 08/29/2009 left breast HEART CATHETERIZATION 11/07/2013 IMPLANT MESH OPN HERNIA RPR/DEBRIDEMENT CLOSURE 07/01/2008 LAPAROSCOPIC APPENDECTOMY LAPS SURG CHOLECYSTECTOMY W/CHOLANGIOGRAPHY 08/24/2007 LIG/TRNSXJ FLP TUBE ABDL/VAG APPR UNI/BI PREOP PLACEMENT NEEDLE LOC 08/29/2009 left breast REP INIT INCI/ VENTRAL HERNIA 11/27/2020 REPAIR FIRST ABDOMINAL WALL HERNIA 07/01/2008 REVISE MEDIAN N/CARPAL TUNNEL SURG Left 11/10/2022 Left CTR SEPTOPLASTY/SUBMUCOUS RESECJ W/WO CARTILAGE GRF 2001 +/- Akhil STEREOTACTIC CORE BIOPSY 07/09/2009 LEFT BREAST ALLERGIES Doxycycline, Entex [Phenylephrine-Guaifenesin], Erythromycin, Flexeril [Cyclobenzaprine Hcl], Omnicef [Cefdinir], Penicillin G, Risperdal [Risperidone], Ultram [Tramadol Hcl], and Valtrex [Valacyclovir Hcl] MEDICATIONS venlafaxine ER (EFFEXOR XR) 37.5 mg 24 hr capsule Take 1 capsule by mouth once daily. Add 37.5mg to current 150mg XL daily venlafaxine ER (EFFEXOR XR) 150 mg 24 hr capsule Take 1 capsule by mouth once daily. pantoprazole DR (PROTONIX) 40 mg tablet TAKE 1 TABLET BY MOUTH ON AN EMPTY STOMACH 1/2 HOUR BEFORE A MEAL TWICE DAILY albuterol HFA (VENTOLIN HFA) 90 mcg/actuation inhaler Inhale 2 Puffs as instructed every 4 hours as needed for wheezing/shortness of breath. cetirizine (ZYRTEC) 10 mg tablet Take 1 tablet by mouth once daily. gabapentin (NEURONTIN) 400 mg capsule Take 1 capsule by mouth three times a day for 180 days. metoprolol succinate ER (TOPROL XL) 25 mg 24 hr tablet Take 0.5 tablets by mouth once daily. nitroglycerin sublingual (NITROQUICK) 0.4 mg SL tablet Dissolve 1 tablet under the tongue every 5 minutes as needed for chest pain. atorvastatin (LIPITOR) 40 mg tablet Take 1 tablet by mouth once daily. aspirin, enteric coated (ASPIRIN, ENTERIC COATED) 81 mg EC tablet TAKE 1 TABLET BY MOUTH EVERY DAY docusate sodium (COLACE) 100 mg capsule Take 1 capsule by mouth twice daily as needed for constipation. acetaminophen (TYLENOL) 500 mg tablet Take 2 tablets by mouth every 8 hours as needed for pain. COMBIVENT RESPIMAT 20-100 mcg/actuation inhaler INHALE 1 PUFF INSTRUCTED FOUR TIMES DAILY NEEDED. nitroglycerin sublingual (NITROQUICK) 0.4 mg SL tablet Dissolve 1 tablet under the tongue every 5 minutes as needed for Chest Pain. FAMILY HISTORY Problem Relation Age of Onset Hypertension Mother Diabetes Mother Systemic Lupus Erythematosus Mother Alcohol/Drug Father (cardiac issues from this) Diabetes Father Allergies Father Cancer Father Esophageal Coronary Artery Disease Maternal Grandmother Emphysema Paternal Grandfather Asthma Son Diabetes Sister Diabetes Brother Cancer Other All through my father's family. Social History Tobacco Use Smoking status: Every Day Current packs/day: 1.00 Average packs/day: 1 pack/day for 33.9 years (33.9 ttl pk-yrs) Types: Cigarettes Start date: 01/20/1991 Smokeless tobacco: Never Tobacco comments: Father smoked in childhood home, currently lives with a smoker who is willing to quit with patient. Vaping Use Vaping status: Never Used Substance Use Topics Alcohol use: No Drug use: Yes Types: Marijuana Comment: Smokes 2-3 times a week BP 110/70 Pulse 108 Temp 36.9 C (98.4 F) Resp 18 Wt 70.8 kg (156 lb 1.4 oz) LMP 07/21/2023 (Within Days) SpO2 98% BMI 28.18 kg/m Physical Exam HENT: Right Ear: Tenderness present. No drainage. Tympanic membrane is erythematous. Left Ear: Tenderness present. No drainage. Nose: Rhinorrhea present. Rhinorrhea is clear. Right Turbinates: Swollen. Left Turbinates: Swollen. Right Sinus: Frontal sinus tenderness present. Left Sinus: Frontal sinus tenderness present. Mouth/Throat: Lips: [place]. Mouth: Mucous membranes are moist. Pharynx: Oropharynx is clear. Uvula midline. Postnasal drip present. No oropharyngeal exudate or uvula swelling. Eyes: General: Lids are normal. Conjunctiva/sclera: Conjunctivae normal. Cardiovascular: Rate and Rhythm: Normal rate. Heart sounds: Normal heart sounds, S1 normal and S2 normal. No murmur heard. Pulmonary: Effort: Pulmonary effort is normal. Breath sounds: Normal breath sounds. No wheezing. Abdominal: General: Bowel sounds are normal. Palpations: Abdomen is soft. Tenderness: There is no abdominal tenderness. Lymphadenopathy: Head: Right side of head: Tonsillar adenopathy present. Left side of head: Tonsillar adenopathy present. Skin: General: Skin is warm and dry. Neurological: Mental Status: She is alert. Psychiatric: Behavior: Behavior is cooperative. Health maintenance reviewed with patient: BP Controlled (<130/80) Never done DTaP,Tdap,Td Vaccine(1 - Tdap) Never done Hepatitis B Vaccine(1 of 3 - 19+ 3-dose series) Never done Alpha-1 Antitrypsin Deficiency Screening Never done Pneumococcal Vaccine(2 of 2 - PCV) due on 04/10/2015 Mammogram Screening due on 03/18/2017 Colorectal Cancer Screening Never done LDL Cholesterol due on 01/27/2023 Cervical Cancer Screening due on 03/13/2024 Influenza Vaccine(1) due on 07/08/2024 Annual PCP Team Chronic Disease Visit due on 03/27/2025 Depression Screening due on 03/27/2025 Diabetes Screening due on 11/27/2025 Lipid Screening due on 01/27/2027 Spirometry Completed Hepatitis C Screening Completed HIV Screening Completed Covid-19 Vaccine Discontinued ASSESSMENT/PLAN: 1. Acute otitis media, unspecified otitis media type - ICD9: 382.9, ICD10: H66.90 (primary diagnosis) Bilateral intermittent ear pain x 3 days. Right worse. Tenderness bilateral. Erythema present right ear. - Will begin treatment with Zithromax pack as directed given history of allergies - Supportive care with plenty of fluids, rest, and analgesia prn. - Follow up in 3-5 days if symptoms persist or worsen. 2. COPD with exacerbation (HCC) - ICD9: 491.21, ICD10: J44.1 Increased cough and sputum production x 2-3 days with a decrease in smoking. Denies dyspnea, SOB or chest pain. Low suspicion of pneumonia. - Discussed probable viral etiology. - Continue routine medications and inhalers - Smoking cessation discussed - Red flag symptoms discussed - Prescription sent to pharmacy - BENZONATATE CAPS Prescription instructions reviewed with patient as applicable. Potential red flag symptoms discussed with the patient. Reviewed appropriate action plan to take if red flag symptoms occur. Patient agreeable to treatment plan. Shahnaz Pastrana TEACHING PROVIDER (Physician/PA/DIRECTOR OF CARDIAC REHABILITATION) NOTE OF PERSONAL INVOLVEMENT IN CARE: I have personally seen and examined the patient and performed the medical decision-making components. I have reviewed the Advanced Practice Registered Nurse (DIRECTOR OF CARDIAC REHABILITATION) Student's documentation and verified the findings in the note as written. Any additions or changes are noted in bold/italics. Signature: Lindsay Ashley Date: 12/17/2024 Time: 2:54 PM documented in this encounter [place] 10-26-2024 Telephone encounter Note Needs follow up. [facility] 10-26-2024 Miscellaneous Notes Needs follow up. Patient requesting the following refills. Also requesting a script for Zyrtec if provider agreeable. This has been pended as well. No call back needed to patient. The patient has been identified by name and date of : Yes Caregiver verified no other encounters exist for this prescription request: Yes Caregiver confirmed with patient/requestor that no other refills are due, in the near future, with this provider at this time: Yes The last office visit in the department: 03/27/2024 Does the patient have a future office visit with this provider/department: Yes 10/26/2024 Requested Prescriptions Pending Prescriptions Disp Refills venlafaxine ER (EFFEXOR XR) 37.5 mg 24 hr capsule 90 capsule Sig: Take 1 capsule by mouth once daily. Add 37.5mg to current 150mg XL daily venlafaxine ER (EFFEXOR XR) 150 mg 24 hr capsule 90 capsule Sig: Take 1 capsule by mouth once daily. pantoprazole DR (PROTONIX) 40 mg tablet 180 tablet 3 Sig: TAKE 1 TABLET BY MOUTH ON AN EMPTY STOMACH 1/2 HOUR BEFORE A MEAL TWICE DAILY albuterol HFA (VENTOLIN HFA) 90 mcg/actuation inhaler 1 Each 5 Sig: Inhale 2 Puffs as instructed every 4 hours as needed for wheezing/shortness of breath. cetirizine (ZYRTEC) 10 mg tablet Sig: Take 1 tablet by mouth once daily. Kat Cuba RN documented in this encounter [place] 10-26-2024 Telephone encounter Note Patient requesting the following refills. Also requesting a script for Zyrtec if provider agreeable. This has been pended as well. No call back needed to patient. The patient has been identified by name and date of : Yes Caregiver verified no other encounters exist for this prescription request: Yes Caregiver confirmed with patient/requestor that no other refills are due, in the near future, with this provider at this time: Yes The last office visit in the department: 03/27/2024 Does the patient have a future office visit with this provider/department: Yes 10/26/2024 Requested Prescriptions Pending Prescriptions Disp Refills venlafaxine ER (EFFEXOR XR) 37.5 mg 24 hr capsule 90 capsule Sig: Take 1 capsule by mouth once daily. Add 37.5mg to current 150mg XL daily venlafaxine ER (EFFEXOR XR) 150 mg 24 hr capsule 90 capsule Sig: Take 1 capsule by mouth once daily. pantoprazole DR (PROTONIX) 40 mg tablet 180 tablet 3 Sig: TAKE 1 TABLET BY MOUTH ON AN EMPTY STOMACH 1/2 HOUR BEFORE A MEAL TWICE DAILY albuterol HFA (VENTOLIN HFA) 90 mcg/actuation inhaler 1 Each 5 Sig: Inhale 2 Puffs as instructed every 4 hours as needed for wheezing/shortness of breath. cetirizine (ZYRTEC) 10 mg tablet Sig: Take 1 tablet by mouth once daily. Kat Cuba RN [facility] 08-03-2024 Telephone encounter Note Prescription Refill Information The patient has been identified by name and date of : Yes Caregiver verified no other encounters exist for this prescription request: Yes Caregiver confirmed with patient/requestor that no other refills are due, in the near future, with this provider at this time: Yes The last office visit in the department: 03-27-24 Does the patient have a future office visit with this provider/department: no Requested Prescriptions Pending Prescriptions Disp Refills venlafaxine ER (EFFEXOR XR) 150 mg 24 hr capsule 90 capsule 1 Sig: Take 1 capsule by mouth once daily. venlafaxine ER (EFFEXOR XR) 37.5 mg 24 hr capsule 90 capsule 0 Sig: Take 1 capsule by mouth once daily. Add 37.5mg to current 150mg XL daily pantoprazole DR (PROTONIX) 40 mg tablet 180 tablet 3 Sig: TAKE 1 TABLET BY MOUTH ON AN EMPTY STOMACH 1/2 HOUR BEFORE A MEAL TWICE DAILY Sheeba Horner August 03, 2024 9:46 AM [facility] 08-03-2024 Miscellaneous Notes Prescription Refill Information The patient has been identified by name and date of : Yes Caregiver verified no other encounters exist for this prescription request: Yes Caregiver confirmed with patient/requestor that no other refills are due, in the near future, with this provider at this time: Yes The last office visit in the department: 03-27-24 Does the patient have a future office visit with this provider/department: no Requested Prescriptions Pending Prescriptions Disp Refills venlafaxine ER (EFFEXOR XR) 150 mg 24 hr capsule 90 capsule 1 Sig: Take 1 capsule by mouth once daily. venlafaxine ER (EFFEXOR XR) 37.5 mg 24 hr capsule 90 capsule 0 Sig: Take 1 capsule by mouth once daily. Add 37.5mg to current 150mg XL daily pantoprazole DR (PROTONIX) 40 mg tablet 180 tablet 3 Sig: TAKE 1 TABLET BY MOUTH ON AN EMPTY STOMACH 1/2 HOUR BEFORE A MEAL TWICE DAILY Sheeba Horner August 03, 2024 9:46 AM documented in this encounter [place] 07-13-2024 Telephone encounter Note Patient has been identified by name and date of : Yes, Patient phones for refill(s): Requested Prescriptions Pending Prescriptions Disp Refills gabapentin (NEURONTIN) 400 mg capsule 270 capsule 1 Sig: Take 1 capsule by mouth three times a day for 180 days. Date of last office visit in primary care: 03/27/2024 Date of next office visit in primary care: Visit date not found Please advise. Thank you. Nisa Chavez. [place] 07-13-2024 Miscellaneous Notes Patient has been identified by name and date of : Yes, Patient phones for refill(s): Requested Prescriptions Pending Prescriptions Disp Refills gabapentin (NEURONTIN) 400 mg capsule 270 capsule 1 Sig: Take 1 capsule by mouth three times a day for 180 days. Date of last office visit in primary care: 03/27/2024 Date of next office visit in primary care: Visit date not found Please advise. Thank you. Nisa Chavez. documented in this encounter [place] 04-19-2024 Telephone encounter Note The following approved medication requests have been transmitted electronically. Requested Prescriptions Signed Prescriptions Disp Refills venlafaxine ER (EFFEXOR XR) 37.5 mg 24 hr capsule 90 capsule 0 Sig: Take 1 capsule by mouth once daily. Add 37.5mg to current 150mg XL daily Authorizing Provider: Delores CHOWDHURY venlafaxine ER (EFFEXOR XR) 150 mg 24 hr capsule 90 capsule 1 Sig: Take 1 capsule by mouth once daily. Authorizing Provider: Delores CHOWDHURY PA-C [place] 04-19-2024 Miscellaneous Notes The following approved medication requests have been transmitted electronically. Requested Prescriptions Signed Prescriptions Disp Refills venlafaxine ER (EFFEXOR XR) 37.5 mg 24 hr capsule 90 capsule 0 Sig: Take 1 capsule by mouth once daily. Add 37.5mg to current 150mg XL daily Authorizing Provider: Delores CHOWDHURY venlafaxine ER (EFFEXOR XR) 150 mg 24 hr capsule 90 capsule 1 Sig: Take 1 capsule by mouth once daily. Authorizing Provider: Delores CHOWDHURY PA-C Patient informed and verbalized understanding. Needs refills on the 150 mg also. Pended please send. Krista Guerrero MA We discussed at visit that there is no additional dose with XL formulation from 150mg XL. Equivalent 50mg three times a day to 50 XL formula. I d/c'd 50mg and will add Effexor 37.5mg XL instead. Take with 150mg XK daily Review at next visit The following approved medication requests have been transmitted electronically. Requested Prescriptions Signed Prescriptions Disp Refills venlafaxine ER (EFFEXOR XR) 37.5 mg 24 hr capsule 90 capsule 0 Sig: Take 1 capsule by mouth once daily. Add 37.5mg to current 150mg XL daily Authorizing Provider: Delores CHOWDHURY PA-C Patient calls and is asking if provider can take a look at medications. At appointment buspirone was discontinued. Patient was previously on venlafaxine ER 150 mg 24 hour capsule. Patient states that she was told that her venlafaxine would be increased. Order for venlafaxine 50 mg, take 1 tablet by mouth three times a day was sent to pharmacy. Prescription was only sent in for 30 tablets which equals 10 days. Patient asking if prescription was right with dosage as well as quantity of pills? Please review and advise, Addis García RN documented in this encounter [place] 04-19-2024 Telephone encounter Note Patient informed and verbalized understanding. Needs refills on the 150 mg also. Pended please send. Krista Guerrero MA [place] 04-19-2024 Telephone encounter Note We discussed at visit that there is no additional dose with XL formulation from 150mg XL. Equivalent 50mg three times a day to 50 XL formula. I d/c'd 50mg and will add Effexor 37.5mg XL instead. Take with 150mg XK daily Review at next visit The following approved medication requests have been transmitted electronically. Requested Prescriptions Signed Prescriptions Disp Refills venlafaxine ER (EFFEXOR XR) 37.5 mg 24 hr capsule 90 capsule 0 Sig: Take 1 capsule by mouth once daily. Add 37.5mg to current 150mg XL daily Authorizing Provider: Delores CHOWDHURY PA-C [place] 04-19-2024 Telephone encounter Note Patient calls and is asking if provider can take a look at medications. At appointment buspirone was discontinued. Patient was previously on venlafaxine ER 150 mg 24 hour capsule. Patient states that she was told that her venlafaxine would be increased. Order for venlafaxine 50 mg, take 1 tablet by mouth three times a day was sent to pharmacy. Prescription was only sent in for 30 tablets which equals 10 days. Patient asking if prescription was right with dosage as well as quantity of pills? Please review and advise, Addis García RN [place] 04-03-2024 Telephone encounter Note Patient notified. Verbalized understanding. [place] 04-03-2024 Miscellaneous Notes Patient notified. Verbalized understanding. Images from the original note were not included. Delores Chowdhury PA-C P James Gar Please advise I added additional labwork due to anemia, pleas have her complete it in next 4 weeks Danyel Diamond PA-C documented in this encounter [place] 04-03-2024 Telephone encounter Note Images from the original note were not included. Delores Chowdhury PA-C P James Gar Please advise I added additional labwork due to anemia, pleas have her complete it in next 4 weeks Danyel Diamond PA-C [place] 03-27-2024 Instructions Delores Chowdhury PA-C - 03/27/2024 2:03 PM EDT Please schedule follow up with [facility] for follow up Increased venlafaxine to 150 mg by adding 50mg to 150mg F/u 4 weeks on progress documented in this encounter [place] 03-27-2024 History of Present illness Narrative 49 year old female with c/o annual physical, wellness check 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 Emergency Department Summary 12/08/23 MR#: [id number] Acct: [id number] Name: BEV WEBB Rep #:[id number] : 1975 48 From: Sushma Arzola MD PCP: Dr. Martinez Garcia MD Status:REG E R Location: ED HPI History of Present Illness Chief Complaint: Lower Extremity Injury Informant: patient Narrative Narrative: Patient complains of bilateral knee pain. She went to urgent care who referred her here. Patient states she walked up the hill and then down a hill. It took about [address] Her knees were sore afterwards. Sometimes her knees get sore but no usually this much. She did not fall. She has no fevers or chills. No recent trauma. Patient does have some slight mottling of the skin and purplish discoloration and areas in the front of both knees. She states that is been there for a long time. He gets better and worse. But is not different today. She has no calf pain or thigh pain. No chest pain. No trouble breathing. [facility] Medical History Arthritis Atherosclerotic heart disease of [place] coronary artery without angina pectoris Essential (primary) hypertension Heart disease Hemorrhoids Lung disease Shoulder pain Stomach ulcer Home Medications pantoprazole 40 mg tablet,delayed release 40 mg PO BID gerd 04/09/14 [History Last Taken 06/14/23] atorvastatin 40 mg tablet 40 mg PO DAILY cholesterol 03/28/19 [History Last Taken 06/17/20] cetirizine 10 mg tablet 10 mg PO DAILY allergies 04/14/20 [History Last Taken 06/14/23] buspirone 15 mg tablet 15 mg PO TID anxiety 06/17/20 [History Last Taken 06/14/23] gabapentin 400 mg capsule 400 mg PO TID nerve pain 06/17/20 [History Last Taken 06/17/20] venlafaxine 150 mg tablet,extended release 24 hr 150 mg PO DAILY depression 06/17/20 [History Last Taken 06/14/23] aspirin 81 mg tablet,delayed release 81 mg PO DAILY@0800 #30 tabs 03/16/21 [Rx Last Taken 06/13/23 21:56] fluconazole 150 mg tablet 150 mg PO Q3D 1 dose #1 TAB 11/14/23 [Rx Last Taken Unknown] naproxen 500 mg tablet (Naprosyn) 500 mg PO BID PRN pain #20 tabs 12/08/23 [Rx Last Taken Unknown] Allergy/AdvReac Type Severity Reaction Status Date / Time doxycycline Allergy Unknown Verified 12/08/23 18:31 erythromycin base Allergy Chest Verified 12/08/23 18:31 [Erythromycin Base] tightness Penicillins Allergy Unknown Verified 12/08/23 18:31 tramadol HCl [From Ultram] Allergy Swelling Verified 12/08/23 18:31 cefdinir [From Omnicef] AdvReac Other Verified 12/08/23 18:31 risperidone [From Risperdal] AdvReac Unknown Verified 12/08/23 18:31 valacyclovir HCl AdvReac Nausea Verified 12/08/23 18:31 [From Valtrex] Family History Other Arthritis Cancer Diabetes Heart disease Stomach ulcer Surgical History History of ankle surgery History of left heart catheterization (03/16/21) Hx of appendectomy Social History Smoking Status: Current every day smoker tobacco type: cigarettes ROS ROS ED Constitutional Constitutional ED: Denies chills, fever(s) or sweats Eyes Eyes: Denies change in vision ENT ENT ED: Denies rhinorrhea or sore throat Cardiovascular Cardiovascular: Denies chest pain, palpitations or racing heartbeat Respiratory/Chest Respiratory/Chest: Denies cough or dyspnea Gastrointestinal Gastrointestinal: Denies abdominal pain, nausea or vomiting Musculoskeletal Musculoskeletal: Reports arthralgias; Denies back pain or neck pain Integumentary Reports rash; Denies abscess or Abrasions Neurologic Neurologic: Denies headache(s), paresthesias or weakness Hematologic/Lymphatic Hematologic/Lymphatic: Denies easy bleeding or easy bruising Allergic/Immunologic Allergic/Immunologic ED: Denies urticaria EXAM Physical Exam Narrative Exam Narrative: CONSTITUTIONAL: Patient is nontoxic in appearance. The patient looks comfortable. Work of breathing looks normal. HEENT: No notable trauma. EYES: No pallor. NECK:No JVD. No stridor. CARDIOVASCULAR: Regular rate. Regular rhythm. No notable murmur. No JVD. RESPIRATORY: No respiratory distress. Breathing is unlabored. No wheezes. GASTROINTESTINAL: Not distended. Bowel sounds are normal. No tenderness. GENITOURINARY: No tenderness over the bladder. No CVA tenderness. MUSCULOSKELETAL: Atraumatic. No peripheral edema. No cord. No tenderness along the deep venous system. No asymmetry. No distended veins. She does have livedoreticularis over both knees. But she has excellent distal pulses. Her legs arewarm. The knees show no effusion whatsoever. She does have crepitance with motion around the patella consistent with patellofemoral syndrome and likely arthritic changes. There is no clinical indication whatsoever of infection. I think her knees are sore after doing walking up and down a hill and she also states she did a lot more walking today than is normal. I think rest is appropriate. Nonsteroidals are appropriate. NEUROLOGICAL: Patient is alert and appropriate. No focal deficit noted. SKIN: Livedo reticularis over both knees. PSYCHIATRIC: Patient is calm. Mood is appropriate. Const Vital Signs: 12/08/23 18:31 Temperature 98 F Temperature Source Temporal Pulse Rate 101 H Respiratory Rate 18 Blood Pressure 141/96 H Blood Pressure Mean 111 Pulse Ox 100 Oxygen Delivery Method Room Air Discharge Plan Triage Chief Complaint: Lower Extremity Injury ED Provider: Sushma Arzola Dx/Rx/DC Orders Clinical Impression: Bilateral anterior knee pain, Livedo reticularis Instructions: ED Knee Pain of Uncertain Cause Prescriptions: New naproxen [Naprosyn] 500 mg tablet 500 mg PO BID PRN (Reason: pain) Qty: 20 0RF No Action pantoprazole 40 MG tablet 40 mg PO BID Patient Comments: ACID REFLUX/GERD atorvastatin 40 MG tablet 40 mg PO DAILY cetirizine 10 MG tablet 10 mg PO DAILY gabapentin 400 MG capsule 400 mg PO TID buspirone 15 MG tablet 15 mg PO TID venlafaxine 150 MG tablet extended release 24hr 150 mg PO DAILY aspirin 81 mg Tablet,Delayed Release (Dr/Ec) 81 mg PO DAILY@0800 Qty: 30 0RF fluconazole 150 mg tablet 150 mg PO Q3D Qty: 1 0RF Primary Care Provider: Martinez Garcia Referrals: Martinez Garcia MD [Primary Care Provider] - 3-5 Days Disposition Disposition: Home, Self Care What to do if you have Problems For any increased pain, shortness of breath, bleeding, nausea or vomiting, chestpain, or any unexpected problems, contact your Primary Care Provider. Call [facility] ([phone]) or report to the closest Emergency Room. Call 911 if necessary. 12/08/23 190 <Electronically signed by Sushma Arzola MD> Cosigner Signature (if applicable): CC: Dr. Martinez Garcia MD ~ Signed [facility] Work Phone: [phone]) 599-856410-05-2023 History of Present illness Narrative* Mable Reilly RDMA - 08/11/2023 9:15 AM EDT Radiology Service Progress Note PATIENT NAME: Bev Webb DATE OF SERVICE: August 11, 2023 TIME: 9:48 AM PATIENT IDENTITY VERIFICATION COMPLETED USING TWO (2) IDENTIFIERS: Name and Date of confirmedby patient verbally. FALL SCREENING: Has the patient had 2 falls in the last year or 1 fall with injury or currently using an Ambulatory Assistive Device (Walker, Cane, Wheelchair, Crutches, etc.)? No PATIENT GENDER DATA: Female. status: : No status: NO. PATIENT RELEVANT IMPLANT DATA REVIEWED: Not Applicable RADIOLOGY DEPARTMENT: Ultrasound PERIPHERAL IV DATA: Not applicable SIGNED BY: Mable Reilly RDMS August 11, 2023 9:48 AM documented in this encounterCenterville09-28-2023 History of Present illness Narrative* Janelle Leahy APRN.CNM - 08/04/2023 1:59 PM EDT Bev Webb is a 48 year old female who presents for problem visit of painful periods. HPI- Patient reports having regular periods every 25-30 days that last 5-7 days. Describes periods as heavy. Wearing pads and changes every couple of hours. Started period last and reportspassing several large blood clots. When asked about size, patient reports like golf ball size. She was having so much pain and cramping that she went to ED. Stated nothing was done there and she was sent home. No pelvic ultrasound completed. She is not currently bleeding but still feeling pelvic pain. Patient not seen in office since 06/04/2020 at which time she had IUD removed (after 10 months) because she did not want a foreign object in her body. She has a history of simple endometrial hyperplasia and had hysteroscopy D&C, and polypectomy on 04/12/19. OB History T1 L1 SAB1 IAB0 Ectopic0 Multiple0 Live Births0 Comment: 1 vaginal delivery Pattern Illustrator History LMP: 07/21/2023 (Within Days), Having periods Age at Menarche: Age at First : Age at Menopause: Pattern Illustrator History Comments: Sexual Activity: Yes; Male Contraception: Tubal Ligation PAST MEDICAL HISTORY Diagnosis Date Abnormal mammogram, unspecified LEFT BREAST Abnormal Pap smear and cervical HPV (human papillomavirus) CAD (coronary artery disease) 2103 diffuse moderate CAD in the left main and RCA-40-50%, seeing Dr. Chase Centrilobular emphysema (HCC) Chronic cholecystitis 08/24/07 Chronic depressive personality disorder Chronic gastric ulcer without mention of hemorrhage, perforation, without mention of obstruction COPD with chronic bronchitis (HCC) Generalized anxiety disorder HTN (hypertension) Hyperlipidemia Incisional hernia without mention of obstruction or gangrene Irritable bowel syndrome Lumbago PONV (postoperative nausea and vomiting) Raynaud's phenomenon (by history or observed) Tobacco use disorder, continuous Daily smoker since age 16. PAST SURGICAL HISTORY Procedure Laterality Date APPENDECTOMY ENDOMETRIAL BX W/WO ENDOCERVIX BX W/O DILAT SPX 01/01/2009 Menorrhagia ESOPHAGOGASTRODUODENOSCOPY TRANSORAL DIAGNOSTIC 09/26/2012 EGD EXC BREAST LES PREOP PLMT RAD MARKER OPEN 1 LES 08/29/2009 left breast HEART CATHETERIZATION 11/07/2013 IMPLANT MESH OPN HERNIA RPR/DEBRIDEMENT CLOSURE 07/01/2008 LAPAROSCOPIC APPENDECTOMY LAPS SURG CHOLECYSTECTOMY W/CHOLANGIOGRAPHY 08/24/2007 LIG/TRNSXJ FLP TUBE ABDL/VAG APPR UNI/BI PREOP PLACEMENT NEEDLE LOC 08/29/2009 left breast REP INIT INCI/ VENTRAL HERNIA 11/27/2020 REPAIR FIRST ABDOMINAL WALL HERNIA 07/01/2008 REVISE MEDIAN N/CARPAL TUNNEL SURG Left 11/10/2022 Left CTR SEPTOPLASTY/SUBMUCOUS RESECJ W/WO CARTILAGE GRF 2001 +/- Akhil STEREOTACTIC CORE BIOPSY 07/09/2009 LEFT BREAST FAMILY HISTORY Problem Relation Age of Onset Hypertension Mother Diabetes Mother Systemic Lupus Erythematosus Mother Alcohol/Drug Father (cardiac issues from this) Diabetes Father Allergies Father Cancer Father Esophageal Coronary Artery Disease Maternal Grandmother Emphysema Paternal Grandfather Asthma Son Diabetes Sister Diabetes Brother Cancer Other All through my father's family. Social History Tobacco Use Smoking status: Every Day Packs/day: 1.00 Years: 15.00 Additional pack years: 0.00 Total pack years: 15.00 Types: Cigarettes Start date: 01/20/1991 Smokeless tobacco: Never Tobacco comments: Father smoked in childhood home, currently lives with a smoker who is willing to quit with patient. Vaping Use Vaping Use: Never used Substance Use Topics Alcohol use: No Drug use: Yes Types: Marijuana Comment: Smokes 2-3 times a week Current Outpatient Medications Medication Sig atorvastatin (LIPITOR) 40 mg tablet Take 1 tablet by mouth once daily. busPIRone (BUSPAR) 15 mg tablet Take 1 tablet by mouth three times daily. albuterol HFA (VENTOLIN HFA) 90 mcg/actuation inhaler Inhale 2 Puffs as instructed every 4 hours asneeded for wheezing/shortness of breath. aspirin, enteric coated (ASPIRIN, ENTERIC COATED) 81 mg EC tablet TAKE 1 TABLET BY MOUTH EVERY DAY gabapentin (NEURONTIN) 400 mg capsule Take 1 capsule by mouth three times daily for 180 days. venlafaxine ER (EFFEXOR XR) 150 mg 24 hr capsule Take 1 capsule by mouth once daily. acetaminophen (TYLENOL) 500 mg tablet Take 2 tablets by mouth every 8 hours as needed for pain. pantoprazole DR (PROTONIX) 40 mg tablet TAKE 1 TABLET BY MOUTH ON AN EMPTY STOMACH 1/2 HOUR BEFORE A MEAL TWICE DAILY COMBIVENT RESPIMAT 20-100 mcg/actuation inhaler INHALE 1 PUFF INSTRUCTED FOUR TIMES DAILY NEEDED. cetirizine hcl(ZYRTEC 10 MG TAB) Take one(1) tablet daily. docusate sodium (COLACE) 100 mg capsule Take 1 capsule by mouth twice daily as needed for constipation. (Patient not taking: Reported on 08/04/2023) nitroglycerin sublingual (NITROQUICK) 0.4 mg SL tablet Dissolve 1 tablet under the tongue every 5 minutes as needed for Chest Pain. (Patient not taking: Reported on 11/24/2022) No current facility-administered medications for this visit. Allergies As of Date: 08/04/2023 Allergen Noted Reaction DOXYCYCLINE 08/16/2006 ENTEX [PHENYLEPHRINE-GUAIFENESIN] 10/20/2006 ERYTHROMYCIN 08/16/2006 Shortness of Breath FLEXERIL [CYCLOBENZAPRINE HCL] 10/08/2011 Cough OMNICEF [CEFDINIR] 07/11/2014 GI Upset PENICILLIN G 08/16/2006 Intolerance RISPERDAL [RISPERIDONE] 08/16/2006 Swelling ULTRAM [TRAMADOL HCL] 08/16/2006 Swelling VALTREX [VALACYCLOVIR HCL] 08/16/2006 Rash Fully Assessed 08/04/2023 REVIEW OF SYSTEMS Abdomen: No bloating, early satiety, indigestion, or increased flatulence. No abdominal pain, nausea, vomiting, diarrhea, or constipation. Bladder: No dysuria, gross hematuria, urinary frequency, urinary urgency, or incontinence. Breast: No breast lumps, nipple d/c, overlying skin changes, redness or skin retraction. 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 Period stopped on Tuesday. NEURO: alert and oriented x3,exam grossly non-focal EXTREMITIES: normal ASSESSMENT/PLAN: 1. Dysmenorrhea - ICD9: 625.3, ICD10: N94.6 (primary diagnosis) - US FEMALE PELVIS TRANSVAG 2. Menorrhagia, premenopausal - ICD9: 627.0, ICD10: N92.4 - Reviewed bleeding precautions with patient - Reported amount of bleeding at this is not abnormal- reassurance provided 3. Pelvic pain in female - ICD9: 625.9, ICD10: R10.2 - Reviewed perimenopausal and changes with cycles - Will reevaluate plan of care after pelvic ultrasound results - Bleeding precautions reviewed and when to go to ED - Declines offer of Mirena IUD replacement - Will need to return for annual with PAP Janelle Leahy APRN.CNM documented in this encounterCenterville09-25-2023 Miscellaneous Notes* Telephone Encounter - Grecia Donato MA - 08/01/2023 2:46 PM EDT JOSE E 10/12/22 NOV none scheduled. Grecia Donato MA * Telephone Encounter - Denise Talbot - 08/01/2023 2:42 PM EDT Patient has been identified by name and date of : Yes Last office visit in this department: 10/12/2022 RX INSTRUCTIONS: Patient aware RX will be sent to pharmacy. No need to notify patient. Patient phones requesting refills as follows: Requested Prescriptions Pending Prescriptions Disp Refills atorvastatin (LIPITOR) 40 mg tablet 30 tablet 6 Sig: Take 1 tablet by mouth once daily. busPIRone (BUSPAR) 15 mg tablet 90 tablet 2 Sig: Take 1 tablet by mouth three times daily. albuterol HFA (VENTOLIN HFA) 90 mcg/actuation inhaler 1 Each 5 Sig: Inhale 2 Puffs as instructed every 4 hours as needed for wheezing/shortness of breath. Please review and advise. Denise Talbot documented in this encounterCenterville04-14-2023 Miscellaneous Notes* Telephone Encounter - Zahira Renteria MA - 02/18/2023 10:59 AM EDT JOSE E: 10/12/22 with [facility] NOV: No future FM appt scheduled at this time Last refill: Buspirone 08/17/22 With 90 and 2 refills Venlafaxine 08/17/22 With 30 and 5 refills Zahira Renteria MA * Telephone Encounter - Lorrie Suresh - 02/18/2023 10:39 AM EDT Patient has been identified by name and date of : Yes Requested Prescriptions Pending Prescriptions Disp Refills venlafaxine ER (EFFEXOR XR) 150 mg 24 hr capsule 30 capsule 5 Sig: Take 1 capsule by mouth once daily. busPIRone (BUSPAR) 15 mg tablet 90 tablet 2 Sig: Take 1 tablet by mouth three times daily. RX INSTRUCTIONS: Patient aware RX will be sent to pharmacy. No need to notify patient. Lorrie Suresh documented in this encounterCenterville01-31-2023 Miscellaneous Notes* Telephone Encounter - Bev Frey Ma - 12/07/2022 1:09 PM EST I called and spoke with patient. Message from Jamilah given and patient verbalized understanding. * Telephone Encounter - Jamilah Santizo PA-C - 12/07/2022 12:50 PM EST She should remain off work for now, we will reevaluate at her visit on 12/09/22. * Telephone Encounter - Camryn Mundo COBB - 12/02/2022 4:34 PM EST Patient called. Verified name and date of . Patient had appointment today and is to be off of work 10-14 days. Her employer is asking if it is possible that she returns to work with hand covered or any other measures in order for her to returnto work but safety in mind as well. Please review and advise. Camryn Mundo COBB documented in this encounterCenterville01-25-2023 History of Present illness Narrative* Macy Guerrero RN - 12/01/2022 11:05 AM EST TRANSITIONAL CARE MANAGEMENT (TCM) COMMUNITY MONITORING PROGRAM Provider Action/FYI: Patient is TCM eligible through Second Attempt: Second attempt to outreach patient for initial hospital discharge. No answer. Left message to return call at [phone] Left message with appointment reminder with PCP today PCP 12/01/2022 Ortho 12/02/2022 SUMMARY: Pt discharged from [facility] on 11/29/2022. Admitted for: abcess left hand Contact made with patient: No - 2nd unsuccessful attempt - end outreach and close encounter Outreach ended Ana COX, vocational school teacher Environmental Sustainability Manager [phone] * Macy Guerrero RN - 11/30/2022 10:50 AM EST TRANSITIONAL CARE MANAGEMENT (TCM) COMMUNITY MONITORING PROGRAM Provider Action/FYI: Patient is TCM eligible through 12/13/2022 Attempted outreach to patient for hospital discharge initial outreach. No answer, left a voicemail to return my call at [phone]. Will attempt to outreach to patient again later today or tomorrrow if no return call from patient. SUMMARY: Pt discharged from [facility] on 11/29/2022. Admitted for: abcess left hand Contact made with patient: No - next outreach attempt will be on next business day Outreach ended Ana COX, vocational school teacher Environmental Sustainability Manager [phone] TCM Home Visit Referral Source of Stratification: [facility] Hospital Admission Status: Discharged Readmission Risk Score: 15 TIMOTEO Score: 2 Patient meets program referral criteria: No Patient does not qualify for High Risk TCM Home Visit program due to: Discharged home, does not meet program criteria Macy Guerrero RN November 30, 2022 10:50 AM documented in this encounterCenterville01-23-2023 NoteHNO ID: [id number] Author: Sherif Lu PA-C Service: Orthopaedic Surgery Author Type: Physician Study Lead Type: Progress Notes Filed: 11/29/2022 7:35 AM Note Text: POSTOP NOTE ORTHOPAEDIC SURGERY SERVICE DATE: 11/29/2022 SERVICE TIME: 7:30 AM IMPRESSION/PLAN: Left hand surgical site infection S/P Procedure(s) (LRB): INCISION AND DRAINAGE ABSCESS UPPER EXTREMITY, COMPLICATED OR MULTIPLE (Left) on 11/24/[address] Hernández Pain control Continue hand soaks and dressing changes BID Wound culture: positive for MRSA susceptible to bactrim Antibiotics: oral bactrim x 4 days per ID Discharge home today F/u scheduled this week for wound check Plan of care discussed with: Provider, RN, Patient. POST OPERATIVE COMPLICATIONS: Complicated by uneventful/none SUBJECTIVE: No overnight issues. Well Controlled left hand pain. Denies new complaints. OBJECTIVE: VITAL SIGNS: BP 125/68 Pulse 94 Temp 36.8 ?C (98.2 ?F) (Oral) Resp 18 Ht 160 cm (5' 3) Wt 66.9 kg (147 lb 7.8 oz) LMP 11/07/2021 SpO2 97% BMI 26.13 kg/m? INTAKE AND OUTPUT: Intake/Output Summary (Last 24 hours) at 11/29/2022 0730 Last data filed at 11/29/2022 0534 Gross per 24 hour Intake 687 ml Output -- Net 687 ml LABS: Hemoglobin Date Value Ref Range Status 11/27/2022 9.4 (L) 11.5 - 15.5 g/dL Final 11/26/2022 9.6 (L) 11.5 - 15.5 g/dL Final Hematocrit Date Value Ref Range Status 11/27/2022 30.7 (L) 36.0 - 46.0 % Final 11/26/2022 30.9 (L) 36.0 - 46.0 % Final Platelet Count Date Value Ref Range Status 11/27/2022 477 (H) 150 - 400 k/uL Final 11/26/2022 441 (H) 150 - 400 k/uL Final WBC Date Value Ref Range Status 11/27/2022 9.77 3.70 - 11.00 k/uL Final 11/26/2022 11.04 (H) 3.70 - 11.00 k/uL Final Creatinine Date Value Ref Range Status 11/27/2022 0.88 0.58 - 0.96 mg/dL Final 11/26/2022 0.69 0.58 - 0.96 mg/dL Final Potassium Date Value Ref Range Status 11/27/2022 3.5 (L) 3.7 - 5.1 mmol/L Final 11/26/2022 3.2 (L) 3.7 - 5.1 mmol/L Final VTE Prophylaxis: Active VTE Risk Category Order: 11/24/222029 VTE RISK CATEGORY: SURGICAL MODERATE RISK ([place]) Active VTE Medication Orders: Anticoagulant AND Antiplatelet Medications (From admission, onward) Start Dose Route Frequency Last Action Ordered Stop 11/25/22 0900 aspirin, enteric coated 81 mg tab(s) 81 mg ORAL DAILY Given, 11/28 0838 11/24/222019 -- Active VTE Prophylaxis Orders: 11/24/222029 VTE CURRENT ANTICOAG THERAPY ([place]) 11/24/222029 ACTIVITY - MOBILIZE PATIENT ([place]) PHYSICAL EXAMINATION: Left hand: Dressing clean, dry, and intact Granulation tissue visible. No erythema or purulence. Neurovascularly intact Positive median, ulna, and radial nerve function Radial pulse 2+, fingers warm and well-perfused, and cap refill <2sec Motor intact, able to make a fist, flex/extend all fingers Sensory: SILT to M/R/U distributions Problem Review and Assessment: Skin and Abdominal Wall: Patient monitored, no new events overnight Cardiovascular and Vascular: Patient monitored, no new events overnight Respiratory: Patient monitored, no new events overnight Endocrine and Metabolic: Patient monitored, no new events overnight Gastrointestinal: Patient monitored, no new events overnight Genitourinary and Nephrology: Patient monitored, no new events overnight Behavioral, Cerebrovascular and Nervous: Patient monitored, no new events overnight Infectious: Patient monitored, no new events overnight DATA: Diagnostic tests reviewed for today's visit: Most recent labs and imaging results. SIGNATURE: Sherif Lu PA-C PATIENT NAME: Bev Gerardo Call DATE: November 29, 2022 TIME: 7:30 AMK[facility] [id number] NoteHNO ID: [id number] Author: Ernst Jones MD Service: Orthopaedic Surgery Author Type: Physician Type: Progress Notes Filed: 11/28/2022 6:42 AM Note Text: POSTOP NOTE ORTHOPAEDIC SURGERY SERVICE DATE: 11/28/2022 SERVICE TIME: 6:41 AM IMPRESSION/PLAN: Left hand surgical site infection S/P Procedure(s) (LRB): INCISION AND DRAINAGE ABSCESS UPPER EXTREMITY, COMPLICATED OR MULTIPLE (Left) on 11/24/2022 Pain control Continue hand soaks and dressing changes BID Wound culture: NGTD Antibiotics: vancomycin and cefepime per ID Case Management for discharge planning. Awaiting final ABC recs Not ready for discharge yet. Continue soaks. And BID dressing changes. WTD gauze. Plan of care discussed with: Provider, RN, Patient. POST OPERATIVE COMPLICATIONS: Complicated by uneventful/none SUBJECTIVE: No overnight issues. Well Controlled left hand pain. Denies new complaints. Painful this morning. Wanting more pain medication. OBJECTIVE: VITAL SIGNS: BP 136/69 Pulse 81 Temp 36.9 ?C (98.4 ?F) (Oral) Resp 14 Ht 160 cm (5' 3) Wt 66.9 kg (147 lb 7.8 oz) LMP 11/07/2021 SpO2 94% BMI 26.13 kg/m? INTAKE AND OUTPUT: Intake/Output Summary (Last 24 hours) at 11/28/2022 0641 Last data filed at 11/28/2022 0639 Gross per 24 hour Intake 2310 ml Output -- Net 2310 ml LABS: Hemoglobin Date Value Ref Range Status 11/27/2022 9.4 (L) 11.5 - 15.5 g/dL Final 11/26/2022 9.6 (L) 11.5 - 15.5 g/dL Final Hematocrit Date Value Ref Range Status 11/27/2022 30.7 (L) 36.0 - 46.0 % Final 11/26/2022 30.9 (L) 36.0 - 46.0 % Final Platelet Count Date Value Ref Range Status 11/27/2022 477 (H) 150 - 400 k/uL Final 11/26/2022 441 (H) 150 - 400 k/uL Final WBC Date Value Ref Range Status 11/27/2022 9.77 3.70 - 11.00 k/uL Final 11/26/2022 11.04 (H) 3.70 - 11.00 k/uL Final Creatinine Date Value Ref Range Status 11/27/2022 0.88 0.58 - 0.96 mg/dL Final 11/26/2022 0.69 0.58 - 0.96 mg/dL Final Potassium Date Value Ref Range Status 11/27/2022 3.5 (L) 3.7 - 5.1 mmol/L Final 11/26/2022 3.2 (L) 3.7 - 5.1 mmol/L Final VTE Prophylaxis: Active VTE Risk Category Order: 11/24/222029 VTE RISK CATEGORY: SURGICAL MODERATE RISK ([place]) Active VTE Medication Orders: Anticoagulant AND Antiplatelet Medications (From admission, onward) Start Dose Route Frequency Last Action Ordered Stop 11/25/22 0900 aspirin, enteric coated 81 mg tab(s) 81 mg ORAL DAILY Given, 11/27 0847 11/24/222019 -- Active VTE Prophylaxis Orders: 11/24/222029 VTE CURRENT ANTICOAG THERAPY ([place]) 11/24/222029 ACTIVITY - MOBILIZE PATIENT ([place]) PHYSICAL EXAMINATION: Left Hand Dressing clean, dry, and intact [place] granulation tissue visible. No erythema or purulence. No erythema Granulation tissue forming. Neurovascularly intact Positive median, ulna, and radial nerve function Radial pulse 2+, fingers warm and well-perfused, and cap refill <2sec Motor intact, able to flex/extend all fingers Sensory: SILT to M/R/U distributions Problem Review and Assessment: Skin and Abdominal Wall: Patient monitored, no new events overnight Cardiovascular and Vascular: Patient monitored, no new events overnight Respiratory: Patient monitored, no new events overnight Endocrine and Metabolic: Patient monitored, no new events overnight Gastrointestinal: Patient monitored, no new events overnight Genitourinary and Nephrology: Patient monitored, no new events overnight Behavioral, Cerebrovascular and Nervous: Patient monitored, no new events overnight Infectious: Patient monitored, no new events overnight DATA: Diagnostic tests reviewed for today's visit: Most recent labs and imaging results. Ernst Jones [facility] [id number] NoteHNO ID: [id number] Author: Ernst Jones MD Service: Orthopaedic Surgery Author Type: Physician Type: Progress Notes Filed: 11/27/2022 6:58 AM Note Text: POSTOP NOTE ORTHOPAEDIC SURGERY SERVICE DATE: 11/27/2022 SERVICE TIME: 6:57 AM IMPRESSION/PLAN: Left hand surgical site infection S/P Procedure(s) (LRB): INCISION AND DRAINAGE ABSCESS UPPER EXTREMITY, COMPLICATED OR MULTIPLE (Left) on 11/24/2022 Pain control Continue hand soaks and dressing changes BID Wound culture: NGTD Antibiotics: vancomycin and cefepime per ID Case Management for discharge planning. Awaiting final ABC recs Not ready for discharge yet. Continue soaks. Plan of care discussed with: Provider, RN, Patient. POST OPERATIVE COMPLICATIONS: Complicated by uneventful/none SUBJECTIVE: No overnight issues. Well Controlled left hand pain. Denies new complaints. Anxious to go home OBJECTIVE: VITAL SIGNS: BP 124/61 Pulse 76 Temp 36.5 ?C (97.7 ?F) (Oral) Resp 18 Ht 160 cm (5' 3) Wt 66.9 kg (147 lb 7.8 oz) LMP 11/07/2021 SpO2 97% BMI 26.13 kg/m? INTAKE AND OUTPUT: Intake/Output Summary (Last 24 hours) at 11/27/2022 0656 Last data filed at 11/26/2022 1800 Gross per 24 hour Intake 1440 ml Output -- Net 1440 ml LABS: Hemoglobin Date Value Ref Range Status 11/27/2022 9.4 (L) 11.5 - 15.5 g/dL Final 11/26/2022 9.6 (L) 11.5 - 15.5 g/dL Final Hematocrit Date Value Ref Range Status 11/27/2022 30.7 (L) 36.0 - 46.0 % Final 11/26/2022 30.9 (L) 36.0 - 46.0 % Final Platelet Count Date Value Ref Range Status 11/27/2022 477 (H) 150 - 400 k/uL Final 11/26/2022 441 (H) 150 - 400 k/uL Final WBC Date Value Ref Range Status 11/27/2022 9.77 3.70 - 11.00 k/uL Final 11/26/2022 11.04 (H) 3.70 - 11.00 k/uL Final Creatinine Date Value Ref Range Status 11/27/2022 0.88 0.58 - 0.96 mg/dL Final 11/26/2022 0.69 0.58 - 0.96 mg/dL Final Potassium Date Value Ref Range Status 11/27/2022 3.5 (L) 3.7 - 5.1 mmol/L Final 11/26/2022 3.2 (L) 3.7 - 5.1 mmol/L Final VTE Prophylaxis: Active VTE Risk Category Order: 11/24/222029 VTE RISK CATEGORY: SURGICAL MODERATE RISK ([place]) Active VTE Medication Orders: Anticoagulant AND Antiplatelet Medications (From admission, onward) Start Dose Route Frequency Last Action Ordered Stop 11/25/22 0900 aspirin, enteric coated 81 mg tab(s) 81 mg ORAL DAILY Given, 11/26 0811/24/222019 -- Active VTE Prophylaxis Orders: 11/24/222029 VTE CURRENT ANTICOAG THERAPY ([place], [place]) 11/24/222029 ACTIVITY - MOBILIZE PATIENT ([place], [place]) PHYSICAL EXAMINATION: Left Hand Dressing clean, dry, and intact Incision open with small amount of purulent drainage. No erythema Granulation tissue forming. Neurovascularly intact Positive median, ulna, and radial nerve function Radial pulse 2+, fingers warm and well-perfused, and cap refill <2sec Motor intact, able to flex/extend all fingers Sensory: SILT to M/R/U distributions Problem Review and Assessment: Skin and Abdominal Wall: Patient monitored, no new events overnight Cardiovascular and Vascular: Patient monitored, no new events overnight Respiratory: Patient monitored, no new events overnight Endocrine and Metabolic: Patient monitored, no new events overnight Gastrointestinal: Patient monitored, no new events overnight Genitourinary and Nephrology: Patient monitored, no new events overnight Behavioral, Cerebrovascular and Nervous: Patient monitored, no new events overnight Infectious: Patient monitored, no new events overnight DATA: Diagnostic tests reviewed for today's visit: Most recent labs and imaging results. Ernst [facility]Tri[facility]23 NoteHNO ID: [id number] Author: Sherif Lu PA-C Service: Orthopaedic Surgery Author Type: Physician Study Lead Type: Progress Notes Filed: 11/26/2022 8:43 AM Note Text: POSTOP NOTE ORTHOPAEDIC SURGERY SERVICE DATE: 11/26/2022 SERVICE TIME: 8:40 AM IMPRESSION/PLAN: Left hand surgical site infection S/P Procedure(s) (LRB): INCISION AND DRAINAGE ABSCESS UPPER EXTREMITY, COMPLICATED OR MULTIPLE (Left) on 11/24/2022 Pain control Continue hand soaks and dressing changes BID Wound culture: NGTD Antibiotics: vancomycin and cefepime per ID Case Management for discharge planning. Awaiting final ABC recs Plan of care discussed with: Provider, RN, Patient. POST OPERATIVE COMPLICATIONS: Complicated by uneventful/none SUBJECTIVE: No overnight issues. Well Controlled left hand pain. Denies new complaints. OBJECTIVE: VITAL SIGNS: BP 134/89 Pulse 76 Temp 36.9 ?C (98.4 ?F) (Oral) Resp 16 Ht 160 cm (5' 3) Wt 66.9 kg (147 lb 7.8 oz) LMP 11/07/2021 SpO2 97% BMI 26.13 kg/m? INTAKE AND OUTPUT: Intake/Output Summary (Last 24 hours) at 11/26/2022 0840 Last data filed at 11/25/2022 1800 Gross per 24 hour Intake 120 ml Output -- Net 120 ml LABS: Hemoglobin Date Value Ref Range Status 11/26/2022 9.6 (L) 11.5 - 15.5 g/dL Final 11/25/2022 10.1 (L) 11.5 - 15.5 g/dL Final Hematocrit Date Value Ref Range Status 11/26/2022 30.9 (L) 36.0 - 46.0 % Final 11/25/2022 33.0 (L) 36.0 - 46.0 % Final Platelet Count Date Value Ref Range Status 11/26/2022 441 (H) 150 - 400 k/uL Final 11/25/2022 474 (H) 150 - 400 k/uL Final WBC Date Value Ref Range Status 11/26/2022 11.04 (H) 3.70 - 11.00 k/uL Final 11/25/2022 12.47 (H) 3.70 - 11.00 k/uL Final Creatinine Date Value Ref Range Status 11/26/2022 0.69 0.58 - 0.96 mg/dL Final 11/25/2022 0.62 0.58 - 0.96 mg/dL Final Potassium Date Value Ref Range Status 11/26/2022 3.2 (L) 3.7 - 5.1 mmol/L Final 11/25/2022 4.2 3.7 - 5.1 mmol/L Final VTE Prophylaxis: Active VTE Risk Category Order: 11/24/222029 VTE RISK CATEGORY: SURGICAL MODERATE RIS[place] ([place]) Active VTE Medication Orders: Anticoagulant AND Antiplatelet Medications (From admission, onward) Start Dose Route Frequency Last Action Ordered Stop 11/25/22 0900 aspirin, enteric coated 81 mg tab(s) 81 mg ORAL DAILY Given, 11/26 0811/24/222019 -- Active VTE Prophylaxis Orders: 11/24/222029 VTE CURRENT ANTICOAG THERAPY ([place]) 11/24/222029 ACTIVITY - MOBILIZE PATIENT ([place], [place]) PHYSICAL EXAMINATION: Left Hand Dressing clean, dry, and intact No drainage Neurovascularly intact Positive median, ulna, and radial nerve function Radial pulse 2+, fingers warm and well-perfused, and cap refill <2sec Motor intact, able to flex/extend all fingers Sensory: SILT to M/R/U distributions Problem Review and Assessment: Skin and Abdominal Wall: Patient monitored, no new events overnight Cardiovascular and Vascular: Patient monitored, no new events overnight Respiratory: Patient monitored, no new events overnight Endocrine and Metabolic: Patient monitored, no new events overnight Gastrointestinal: Patient monitored, no new events overnight Genitourinary and Nephrology: Patient monitored, no new events overnight Behavioral, Cerebrovascular and Nervous: Patient monitored, no new events overnight Infectious: Patient monitored, no new events overnight DATA: Diagnostic tests reviewed for today's visit: Most recent labs and imaging results. SIGNATURE: Sherif Lu PA-C PATIENT NAME: Bev Gerardo Call DATE: November 26, 2022 TIME: 8:40 [id number] NoteHNO ID: [id number] Author: Sherif Lu PA-C Service: Orthopaedic Surgery Author Type: Physician Study Lead Type: Progress Notes Filed: 11/25/2022 10:17 AM Note Text: POSTOP NOTE ORTHOPAEDIC SURGERY SERVICE DATE: 11/25/2022 SERVICE TIME: 6:50 AM IMPRESSION/PLAN: Left hand surgical site infection S/P Procedure(s) (LRB): INCISION AND DRAINAGE ABSCESS UPPER EXTREMITY, COMPLICATED OR MULTIPLE (Left) on 11/24/2022 Pain control Hand soaks BID Wound culture: NGTD Antibiotics: vancomycin and cefazolin , ID consult Case Management for discharge planning Plan of care discussed with: Provider, RN, Patient. POST OPERATIVE COMPLICATIONS: Complicated by uneventful/none SUBJECTIVE: Patient states that they are comfortable Well Controlled left hand pain. Denies incisional pain. OBJECTIVE: VITAL SIGNS: BP (!) 115/45 Pulse 68 Temp 36.8 ?C (98.2 ?F) (Oral) Resp 20 Ht 160 cm (5' 3) Wt 66.9 kg (147 lb 7.8 oz) LMP 11/07/2021 SpO2 98% BMI 26.13 kg/m? INTAKE AND OUTPUT: Intake/Output Summary (Last 24 hours) at 11/25/2022 0650 Last data filed at 11/25/2022 0607 Gross per 24 hour Intake 1288 ml Output -- Net 1288 ml LABS: Hemoglobin Date Value Ref Range Status 11/25/2022 10.1 (L) 11.5 - 15.5 g/dL Final 10/12/2022 10.9 (L) 11.5 - 15.5 g/dL Final Hematocrit Date Value Ref Range Status 11/25/2022 33.0 (L) 36.0 - 46.0 % Final 10/12/2022 34.8 (L) 36.0 - 46.0 % Final Platelet Count Date Value Ref Range Status 11/25/2022 474 (H) 150 - 400 k/uL Final 10/12/2022 514 (H) 150 - 400 k/uL Final WBC Date Value Ref Range Status 11/25/2022 12.47 (H) 3.70 - 11.00 k/uL Final 10/12/2022 14.02 (H) 3.70 - 11.00 k/uL Final Creatinine Date Value Ref Range Status 11/25/2022 0.62 0.58 - 0.96 mg/dL Final 10/12/2022 1.00 (H) 0.58 - 0.96 mg/dL Final Potassium Date Value Ref Range Status 11/25/2022 4.2 3.7 - 5.1 mmol/L Final 10/12/2022 4.4 3.7 - 5.1 mmol/L Final VTE Prophylaxis: Active VTE Risk Category Order: 11/24/222029 VTE RISK CATEGORY: SURGICAL MODERATE RISK ([place], [place]) Active VTE Medication Orders: Anticoagulant AND Antiplatelet Medications (From admission, onward) Start Dose Route Frequency Last Action Ordered Stop 11/25/22 0900 aspirin, enteric coated 81 mg tab(s) 81 mg ORAL DAILY Ordered 11/24/222019 -- Active VTE Prophylaxis Orders: 11/24/222029 VTE CURRENT ANTICOAG THERAPY ([place], [place]) 11/24/222029 ACTIVITY - MOBILIZE PATIENT ([place]) PHYSICAL EXAMINATION: Left Upper Extremity Dressing clean, dry, and intact No drainage Neurovascularly intact Positive median, ulna, and radial nerve function Radial pulse 2+, fingers warm and well-perfused, and cap refill <2sec Motor intact, able to flex/extend all fingers Sensory: SILT to M/R/U distributions Problem Review and Assessment: Skin and Abdominal Wall: Patient monitored, no new events overnight Cardiovascular and Vascular: Patient monitored, no new events overnight Respiratory: Patient monitored, no new events overnight Endocrine and Metabolic: Patient monitored, no new events overnight Gastrointestinal: Patient monitored, no new events overnight Genitourinary and Nephrology: Patient monitored, no new events overnight Behavioral, Cerebrovascular and Nervous: Patient monitored, no new events overnight Infectious: Patient monitored, no new events overnight DATA: Diagnostic tests reviewed for today's visit: Most recent labs and imaging results. SIGNATURE: Sherif Lu PA-C PATIENT NAME: Bev Gerardo Call DATE: November 25, 2022 TIME: 6:50 [id number] History of Present illness Narrative* Beata Carnes Ma - 11/22/2022 8:[address] Hernández, patient presents for suture removal. The wound is well healed without signs of infection. The sutures are removed. Patient tolerated well. Patient scheduled for 6 week post op on 2/13/23. PT ASSESSMENT - CASTING ROOM Bev presents for Application of brace. Applied Marianela and Ortega Gel wrist brace to Left hand. Patient tolerated well. Patient has been instructed in Care and proper application of brace. Patient verbalized understanding. Beata Carnes Ma * Angel Luis Hernández MD - 11/22/2022 7:53 AM EST Angel Luis Hernández MD Department of Orthopaedics Orthopaedics [address] [facility] [address] Dept: [phone] Dept November 22, 2022 CHIEF COMPLAINT: Post Op of the Left Wrist and 1 week 5 days post op Left CTR. HPI Patient here for post op left CTR. Sutures intact. No redness or drainage. Taking Tylenol for the pain and does not help. ASSESSMENT: G56.02 Carpal tunnel syndrome of left wrist (primary encounter diagnosis) SUMMARY/PLAN: Looks good. She is going to take it easy at work and use a Gel Brace. Exam: Healed incision. Good motion. Supporting Information Below: Medications: Current Outpatient Medications Medication Sig albuterol HFA (VENTOLIN HFA) 90 mcg/actuation inhaler Inhale 2 Puffs as instructed every 4 hours asneeded for wheezing/shortness of breath. venlafaxine ER (EFFEXOR XR) 150 mg 24 hr capsule Take 1 capsule by mouth once daily. busPIRone (BUSPAR) 15 mg tablet Take 1 tablet by mouth three times daily. pantoprazole DR (PROTONIX) 40 mg tablet TAKE 1 TABLET BY MOUTH ON AN EMPTY STOMACH 1/2 HOUR BEFORE A MEAL TWICE DAILY atorvastatin (LIPITOR) 40 mg tablet Take 1 tablet by mouth once daily. gabapentin (NEURONTIN) 400 mg capsule Take 1 capsule by mouth three times daily for 180 days. aspirin, enteric coated (ASPIRIN, ENTERIC COATED) 81 mg EC tablet TAKE 1 TABLET BY MOUTH EVERY DAY COMBIVENT RESPIMAT 20-100 mcg/actuation inhaler INHALE 1 PUFF INSTRUCTED FOUR TIMES DAILY NEEDED. nitroglycerin sublingual (NITROQUICK) 0.4 mg SL tablet Dissolve 1 tablet under the tongue every 5 minutes as needed for Chest Pain. cetirizine hcl(ZYRTEC 10 MG TAB) Take one(1) tablet daily. No current facility-administered medications for this visit. Allergies: Doxycycline, Entex [Phenylephrine-Guaifenesin], Erythromycin, Flexeril [Cyclobenzaprine Hcl], Omnicef [Cefdinir], Penicillin G, Risperdal [Risperidone], Ultram [Tramadol Hcl], and Valtrex [Valacyclovir Hcl] Angel Luis Hernández MD documented in this encounterCenterville12-23-2022 Miscellaneous Notes* Telephone Encounter - Bev Frey Ma - 10/29/2022 8:17 AM EST Surgery has been scheduled as requested. * Telephone Encounter - Bev Frey Ma - 10/28/2022 1:52 PM EST Surgical request completed for left CTR at [facility] on 11/10/2022. Post op appointments have been scheduled and mailed to patient. documented in this encounterCenterville12-22-2022 History of Present illness Narrative* Angel Luis Hernández MD - 10/28/2022 1:05 PM EST Angel Luis Hernández MD Department of Orthopaedics Orthopaedics [address] [place] [address] Dept: [phone] Dept October 28, 2022 CHIEF COMPLAINT: New and Numbness of the Left Hand HPI Patient here today for left hand numbness and tingling. She reports this has gotten worse over the last year. She has been wearing a cock up brace that she bought at the drug store. 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 ASSESSMENT: G56.02 Carpal tunnel syndrome, left PLAN: History, clinical exam and electrodiagnostics consistent with carpal tunnel. She does have some symptoms further up the arm but this may very well be some referred pain. She also has what I suspect is some mild arthritis of the basal joint of the thumb, again separate from her carpal tunnel symptoms. We reviewed the risks, benefits, alternatives and potential complications involving both operative and nonoperative care. She would like to proceed with carpal tunnel release under MAC. FOLLOW UP INSTRUCTIONS: We will get her scheduled at her convenience Ms. Bev Webb was advised as to contrast therapies and/or to take analgesics/anti-inflammatories as needed and all contraindications were reviewed. OBJECTIVE: Ms. Bev Webb is a pleasant 47 year old in no apparent distress. Gen:LMP 11/07/2021 nl development, non obese, no deformities ENT: Normocephalic, normal hearing, moist mucosa CV: Pulses:Radial= 2+ and symmetric, capillary refill < 2 secs, no peripheral edema/varicosities Skin: no rash, bruising or lesions. Good turgor. Psych: cooperative and appropriate, alert and oriented x 3, good mood and affect. Musculoskeletal: Cervical spine has supple range of motion and no tenderness to palpation, Spurling's sign negative.Shoulders and elbows have full range of motion. Negative Tinel's over the cubital tunnel, no subluxation of ulnar nerve at the elbow with flexion. Negative Tinel's over Guyon's canal. Inspection reveals no thenar atrophy. Mild diminished sensation to light touch in the radial 3 digits. Sensation intact in the ulnar 2 digits with out intrinsic atrophy/weakness. Positive Tinel's at the wrist, positive carpal tunnel compression testing on the left. No locking or catching of the digits. No tenderness to palpation or masses noted in the forearm or hand. IMAGING: Nerve testing suggests mild carpal tunnel on the left. Supporting Subjective Information Below: Past Medical History: PAST MEDICAL HISTORY Diagnosis Date Abnormal mammogram, unspecified LEFT BREAST Abnormal Pap smear and cervical HPV (human papillomavirus) CAD (coronary artery disease) 2103 diffuse moderate CAD in the left main and RCA-40-50%, seeing Dr. Chase Centrilobular emphysema (HCC) Chronic cholecystitis 08/24/07 Chronic depressive personality disorder Chronic gastric ulcer without mention of hemorrhage, perforation, without mention of obstruction COPD with chronic bronchitis (HCC) Generalized anxiety disorder HTN (hypertension) Hyperlipidemia Incisional hernia without mention of obstruction or gangrene Irritable bowel syndrome Lumbago PONV (postoperative nausea and vomiting) Raynaud's phenomenon (by history or observed) Tobacco use disorder, continuous Daily smoker since age 16. Past Surgical History: PAST SURGICAL HISTORY Procedure Laterality Date APPENDECTOMY ENDOMETRIAL BX W/WO ENDOCERVIX BX W/O DILAT SPX 01/01/2009 Menorrhagia ESOPHAGOGASTRODUODENOSCOPY TRANSORAL DIAGNOSTIC 09/26/2012 EGD EXC BREAST LES PREOP PLMT RAD MARKER OPEN 1 LES 08/29/2009 left breast HEART CATHETERIZATION 11/07/2013 IMPLANT MESH OPN HERNIA RPR/DEBRIDEMENT CLOSURE 07/01/2008 LAPAROSCOPIC APPENDECTOMY LAPS SURG CHOLECYSTECTOMY W/CHOLANGIOGRAPHY 08/24/2007 LIG/TRNSXJ FLP TUBE ABDL/VAG APPR UNI/BI PREOP PLACEMENT NEEDLE LOC 08/29/2009 left breast REP INIT INCI/ VENTRAL HERNIA 11/27/2020 REPAIR FIRST ABDOMINAL WALL HERNIA 07/01/2008 SEPTOPLASTY/SUBMUCOUS RESECJ W/WO CARTILAGE GRF 2001 +/- Akhil STEREOTACTIC CORE BIOPSY 07/09/2009 LEFT BREAST Family History: FAMILY HISTORY Problem Relation Age of Onset Hypertension Mother Diabetes Mother Systemic Lupus Erythematosus Mother Alcohol/Drug Father (cardiac issues from this) Diabetes Father Allergies Father Cancer Father Esophageal Coronary Artery Disease Maternal Grandmother Emphysema Paternal Grandfather Asthma Son Diabetes Sister Diabetes Brother Cancer Other All through my father's family. Social History: Social History Tobacco Use Smoking status: Every Day Packs/day: 1.00 Years: 15.00 Pack years: 15.00 Types: Cigarettes Start date: 01/20/1991 Smokeless tobacco: Never Tobacco comments: Father smoked in childhood home, currently lives with a smoker who is willing to quit with patient. Vaping Use Vaping Use: Never used Substance Use Topics Alcohol use: No Drug use: Yes Types: Marijuana Comment: Smokes 2-3 times a week Medications: Current Outpatient Medications Medication Sig albuterol HFA (VENTOLIN HFA) 90 mcg/actuation inhaler Inhale 2 Puffs as instructed every 4 hours asneeded for wheezing/shortness of breath. venlafaxine ER (EFFEXOR XR) 150 mg 24 hr capsule Take 1 capsule by mouth once daily. busPIRone (BUSPAR) 15 mg tablet Take 1 tablet by mouth three times daily. pantoprazole DR (PROTONIX) 40 mg tablet TAKE 1 TABLET BY MOUTH ON AN EMPTY STOMACH 1/2 HOUR BEFORE A MEAL TWICE DAILY atorvastatin (LIPITOR) 40 mg tablet Take 1 tablet by mouth once daily. gabapentin (NEURONTIN) 400 mg capsule Take 1 capsule by mouth three times daily for 180 days. aspirin, enteric coated (ASPIRIN, ENTERIC COATED) 81 mg EC tablet TAKE 1 TABLET BY MOUTH EVERY DAY COMBIVENT RESPIMAT 20-100 mcg/actuation inhaler INHALE 1 PUFF INSTRUCTED FOUR TIMES DAILY NEEDED. cetirizine hcl(ZYRTEC 10 MG TAB) Take one(1) tablet daily. magnesium oxide 400 mg magnesium tab Take 1 tablet by mouth twice daily. (Patient not taking: Reported on 10/28/2022) nitroglycerin sublingual (NITROQUICK) 0.4 mg SL tablet Dissolve 1 tablet under the tongue every 5 minutes as needed for Chest Pain. No current facility-administered medications for this visit. Allergies: Doxycycline, Entex [Phenylephrine-Guaifenesin], Erythromycin, Flexeril [Cyclobenzaprine Hcl], Omnicef [Cefdinir], Penicillin G, Risperdal [Risperidone], Ultram [Tramadol Hcl], and Valtrex [Valacyclovir Hcl] ROS: General (negative for fatigue, malaise, weight loss/gain) HEENT (negative for headache, earache, recent vision changes, sinus pain, sore throat) Respiratory (no recent shortness of breath, hemoptysis) CV (negative for chest tightness, palpitations) Musculoskeletal (see HPI) Psych (no depression, anxiety) REFERRING PHYSICIAN: Consultation requested by Francy Bernard for an opinion regarding left carpal tunnel. My final recommendations will be communicated back to the requesting physician by way of shared Medical record orletter to requesting physician via US mail. Francy Bernard [address] [facility] [address] Martinez Garcia MD [address] [facility] [address] Angel Luis Hernández MD documented in this encounterCenterville12-07-2022 Miscellaneous Notes* Telephone Encounter - Hyun Haas LPN - 10/13/2022 6:31 PM EST Patient notified of results, verbalizes understanding of instructions. Hyun Haas LPN * Telephone Encounter - Francy Bernard APRN.CNP - 10/13/2022 5:22 PM EST Can please let patient know that I received her labs. Her potassium and magnesium were okay. Her white count was still a little elevated and she was just a little anemic. I would like to have her repeat these labs in 1-2 weeks to ensure they have normalized. The order is in. Francy Bernard APRN.SHERWIN documented in this encounterCenterville12-02-2022 History of Present illness Narrative* Kelley Ramos PA-C - 10/08/2022 10:58 AM EST Patient presents to [facility] triage with a chief complaint of diarrhea, congestion, lightheadedness. She had a brief syncopal episode in the waiting room in the chair as well. She feels dizzy still when she came to. She has been having a lot of diarrhea and does not think she is been drinking mu ch.Recommended patient be evaluated in the ED. Squad called for transport. documented in this encounterCenterville10-04-2022 History of Present illness Narrative* Traci Celis APRN.CNP - 08/10/2022 12:01 PM EDT CC: Patient presents with: Sinus Problem: Sinus pressure and congestion and left ear pain and pressure x 1 week HPI: Bev Webb is a 47 year old female who presents to the office with complaint of head congestion, cough, nonproductive, and sinus symptoms for a week. Symptoms are worsening Associated symptoms includes nasal congestion and facial pain/pressure. Denies fever, nausea, vomiting , and diarrhea. Treatments tried include nothing so far. with no relief of symptoms. Sick contacts: unknown. History of asthma, frequent episodes of bronchitis, chronic bronchitis, bronchiectasis or COPD: No Smoker: No Seasonal/environmental allergies: No The ROS is otherwise negative. The patient's pmh, medications, allergies, and past visits are reviewed. PHYSICAL EXAM: BP 152/88 Pulse 90 Temp 36.4 C (97.6 F) (Tympanic) Resp 16 Wt 64.9 kg (143 lb) LMP 11/07/2021 SpO2 99% BMI 26.32 kg/m General appearance: alert, cooperative, pleasant, in no acute distress Head: Normocephalic Eyes: EOM's intact, conjunctiva pink and moist, no icterus, sclera white, non-injected Ears: Right ear: External ear/canal- Normal, TM - clear with good landmarks. Left ear: External ear/canal- Normal, TM - clear with good landmarks Oropharynx:no erythema, without exudates present Heart: Negative. RRR without obvious murmur, gallop, or rubs. No ectopy. Lungs: clear to auscultation, without rales or wheeze, good air exchange PAST MEDICAL HISTORY Diagnosis Date Abnormal mammogram, unspecified LEFT BREAST Abnormal Pap smear and cervical HPV (human papillomavirus) CAD (coronary artery disease) 2103 diffuse moderate CAD in the left main and RCA-40-50%, seeing Dr. Chase Centrilobular emphysema (HCC) Chronic cholecystitis 08/24/07 Chronic depressive personality disorder Chronic gastric ulcer without mention of hemorrhage, perforation, without mention of obstruction COPD with chronic bronchitis (HCC) Generalized anxiety disorder HTN (hypertension) Hyperlipidemia Incisional hernia without mention of obstruction or gangrene Irritable bowel syndrome Lumbago PONV (postoperative nausea and vomiting) Raynaud's phenomenon (by history or observed) Tobacco use disorder, continuous Daily smoker since age 16. PAST SURGICAL HISTORY Procedure Laterality Date APPENDECTOMY ENDOMETRIAL BX W/WO ENDOCERVIX BX W/O DILAT SPX 01/01/2009 Menorrhagia ESOPHAGOGASTRODUODENOSCOPY TRANSORAL DIAGNOSTIC 09/26/2012 EGD EXC BREAST LES PREOP PLMT RAD MARKER OPEN 1 LES 08/29/2009 left breast HEART CATHETERIZATION 11/07/2013 IMPLANT MESH OPN HERNIA RPR/DEBRIDEMENT CLOSURE 07/01/2008 LAPAROSCOPIC APPENDECTOMY LAPS SURG CHOLECYSTECTOMY W/CHOLANGIOGRAPHY 08/24/2007 LIG/TRNSXJ FLP TUBE ABDL/VAG APPR UNI/BI PREOP PLACEMENT NEEDLE LOC 08/29/2009 left breast REP INIT INCI/ VENTRAL HERNIA 11/27/2020 REPAIR FIRST ABDOMINAL WALL HERNIA 07/01/2008 SEPTOPLASTY/SUBMUCOUS RESECJ W/WO CARTILAGE GRF 2001 +/- Akhil STEREOTACTIC CORE BIOPSY 07/09/2009 LEFT BREAST ALLERGIES Doxycycline, Entex [Phenylephrine-Guaifenesin], Erythromycin, Flexeril [Cyclobenzaprine Hcl], Omnicef [Cefdinir], Penicillin G, Risperdal [Risperidone], Ultram [Tramadol Hcl], and Valtrex [Valacyclovir Hcl] MEDICATIONS gabapentin (NEURONTIN) 400 mg capsule Take 1 capsule by mouth three times daily for 180 days. aspirin, enteric coated (ASPIRIN, ENTERIC COATED) 81 mg EC tablet TAKE 1 TABLET BY MOUTH EVERY DAY atorvastatin (LIPITOR) 40 mg tablet Take 1 tablet by mouth once daily. busPIRone (BUSPAR) 15 mg tablet Take 1 tablet by mouth three times daily. venlafaxine ER (EFFEXOR XR) 150 mg 24 hr capsule Take 1 capsule by mouth once daily. magnesium oxide 400 mg magnesium tab Take 1 tablet by mouth twice daily. COMBIVENT RESPIMAT 20-100 mcg/actuation inhaler INHALE 1 PUFF INSTRUCTED FOUR TIMES DAILY NEEDED. albuterol HFA (VENTOLIN HFA) 90 mcg/actuation inhaler Inhale 2 Puffs as instructed every 4 hours asneeded for wheezing/shortness of breath. pantoprazole DR (PROTONIX) 40 mg tablet TAKE 1 TABLET BY MOUTH ON AN EMPTY STOMACH 1/2 HOUR BEFORE A MEAL TWICE DAILY nitroglycerin sublingual (NITROQUICK) 0.4 mg SL tablet Dissolve 1 tablet under the tongue every 5 minutes as needed for Chest Pain. cetirizine hcl(ZYRTEC 10 MG TAB) Take one(1) tablet daily. azithromycin (ZITHROMAX) 250 mg tablet Take 2 tablets by mouth once daily for 1 day, THEN 1 tablet once daily for 4 days. predniSONE (DELTASONE) 20 mg tablet Take 1 tablet by mouth once daily for 5 days. FAMILY HISTORY Problem Relation Age of Onset Hypertension Mother Diabetes Mother Systemic Lupus Erythematosus Mother Alcohol/Drug Father (cardiac issues from this) Diabetes Father Allergies Father Cancer Father Esophageal Coronary Artery Disease Maternal Grandmother Emphysema Paternal Grandfather Asthma Son Diabetes Sister Diabetes Brother Cancer Other All through my father's family. Social History Tobacco Use Smoking status: Every Day Packs/day: 1.00 Years: 15.00 Pack years: 15.00 Types: Cigarettes Start date: 01/20/1991 Smokeless tobacco: Never Tobacco comments: Father smoked in childhood home, currently lives with a smoker who is willing to quit with patient. Vaping Use Vaping Use: Never used Substance Use Topics Alcohol use: No Drug use: Yes Types: Marijuana Comment: Smokes 2-3 times a week ASSESSMENT/PLAN: 1. Sinus congestion - ICD9: 478.19, ICD10: R09.81 (primary diagnosis) 2. Acute cough - ICD9: 786.2, ICD10: R05.1 Z-Antony and prednisone a day for 5 days prescribed. Prescription instructions reviewed with patient as applicable. Potential red flag symptoms discussed with the patient. Reviewed appropriate action plan to take if red flag symptoms occur. Patient agreeable to treatment plan. Traci Celis APRN.SHERWIN documented in this encounterCenterville08-01-2022 Instructions* Patient Instructions* Lindsay Jose APRN.CNP - 06/07/2022 8:52 AM EDT Images from the original note were not included. CORONARY ARTERY DISEASE View image View image WHAT IS CORONARY ARTERY DISEASE? Coronary artery disease (CAD) is a type of heart disease caused by a problem with the blood vesselsthat bring blood and oxygen to the heart muscle. These arteries are called the coronary arteries. This disease increases your risk for heart attack and sudden . WHAT IS THE CAUSE? Fatty deposits called plaque may build up in blood vessels and make them narrower. The narrowing decreases the amount of blood flow to the heart. Plaque also increases the chance that blood clots mayform and block a blood vessel, which can cause a heart attack or stroke. Your risk for CAD may be higher if you: Have a family history of coronary artery disease at an early age Smoke Have high blood pressure Have diabetes Are very overweight Don t get enough exercise Have high levels of blood fat--for example, high cholesterol WHAT ARE THE SYMPTOMS? Coronary artery disease may not cause any symptoms. When there are symptoms, the most common one ischest pain, called angina. You may feel: A feeling of tightness or heaviness in the chest Squeezing, pressure, or burning in the chest Angina symptoms usually: Last for 5 minutes or less and go away with rest or medicine such as nitroglycerin. Happen when the heart has to work harder, such as after a heavy meal or during physical activity oremotional stress. Angina may also happen when you are resting. Call 911 for emergency help right away if you have symptoms of a heart attack. The most common symptoms include: Chest pain or pressure, squeezing, or fullness in the center of your chest that lasts more than a few minutes, or goes away and comes back (may feel like indigestion or heartburn) Pain or discomfort in one or both arms or shoulders, or in your back, neck, jaw, or stomach Trouble breathing Breaking out in a cold sweat for no known reason If your provider has prescribed nitroglycerin for angina, pain that does not go away after taking your nitroglycerin as directed Along with these symptoms, you may also feel very tired, faint, or be sick to your stomach. HOW IS IT DIAGNOSED? Your healthcare provider will ask about your symptoms and medical history and examine you. Tests may include: Blood tests An ECG (also called an EKG or electrocardiogram), which measures and records your heartbeat. An exercise treadmill test to see how your heart works when you exercise An echocardiogram, which uses sound waves (ultrasound) to see how well your heart is pumping Angiogram, which is a series of X-rays taken after your healthcare provider injects a special dye into your blood vessels to show the huertas of the arteries and any blockage CT scan, which uses X-rays and a computer to show detailed pictures of the arteries HOW IS IT TREATED? Your treatment depends on many factors, such as your age, heart muscle function, and other health problems. At first, treatment may include diet changes and an exercise program. Your healthcare provider may prescribe medicine. Many people need to take 2 or more medicines to help prevent a heart attack or stroke. It may take several weeks or months to find the best treatment for you. Your provider may also prescribe other types of medicine to lower blood pressure, help stop chest pain, control an irregular heartbeat, help prevent blood clots, or lower blood fat (cholesterol). Your provider may recommend a daily low dose of aspirin. Taking an aspirin every day may lower yourrisk for a heart attack or stroke. Not everyone should take aspirin. Daily use of aspirin can causeproblems, such as stomach irritation, bleeding, and hearing loss. Ask your healthcare provider if you should take aspirin and if so, how much to take. If your coronary arteries are badly blocked, you may need balloon angioplasty or bypass surgery. A balloon angioplasty opens blocked blood vessels and improves blood flow. A metal mesh device called a stent is usually left in the blood vessels to help keep them open. Bypass surgery uses blood vessels from other parts of the body, or manmade material, to make a new path around a blocked area. HOW CAN I TAKE CARE OF MYSELF? CC If you have coronary artery disease, there are things you can do to take care of yourself now and prevent problems in the future. Follow your provider's advice about activity, exercise, medicine, and follow-up visits. Lower the amount of salt, saturated and trans fats, and cholesterol in your diet. Work with your healthcare provider to control diabetes, blood pressure, or other health problems you may have. Try to keep a healthy weight. If you are overweight, talk to your provider about ways to lose weight. If you smoke, try to quit. Talk to your healthcare provider about ways to quit smoking. Ask your healthcare provider: o How and when you will hear your test results o How long it will take to recover o What activities you should avoid and when you can return to your normal activities o How to take care of yourself at home o What symptoms or problems you should watch for and what to do if you have them Make sure you know when you should come back for a checkup. HOW CAN I HELP PREVENT CORONARY ARTERY DISEASE? You can prevent this disease with a heart-healthy lifestyle: Eat a healthy diet and keep a healthy weight. Stay fit with the right kind of exercise for you. Find ways to manage stress. Don t smoke. Limit your use of alcohol. Talk to your healthcare provider about your personal and family medical history and your lifestyle habits. This will help you know what you can do to lower your risk for coronary artery disease. If you have a strong family history of CAD, a healthy lifestyle may slow the start of the disease and maybe even keep you from getting it. However, you must have regular checkups to keep a close watch on the health of your heart. Developed by [employer]. Published by [employer]. Copyright 2014 [employer] and/or one of its subsidiaries. All rights reserved. documented in this encounterCenterville08-01-2022 History of Present illness Narrative* Lindsaycolt Jose APRN.CNP - 06/07/2022 8:24 AM EDT Images from the original note were not included. Chief Complaint Patient presents with: Follow Up History of Present Illness: Bev Webb is a 47 year old female who presents for routine follow-up. She has a past medical history of CAD (60% moderate CAD to D1 and RCA 03/2021), coronary vasospasms (seen on heart cath 10 years ago), HTN, HLD, Tobacco use. Most recent ischemic evaluation with a [facility] 03/2021 found to have moderate disease with negative FFR, recommended medical management. She was last seen by myself in office on December 07, 2021. She states she has been doing well since she was seen last. She does mention shehad COVID about a month ago. She had significant fatigue and shortness of breath but did not require hospitalization and is now recovered. She has chronic shortness of breath from her pulmonary status and ongoing smoking. She also continues to have occasional palpitations she may relate to anxiety or stress. She was not able to tolerate Coreg started at last office visit. She denies chest pain, chest pain with activity, dizziness, syncope, orthopnea, LE swelling. She has a membership at [employer] and wants to start exercising. 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 We reviewed cardiac risk factors and modifications. She would like to quit smoking. She reports taking medications as prescribed and requests no refills at this time. PAST MEDICAL HISTORY Diagnosis Date Abnormal mammogram, unspecified LEFT BREAST Abnormal Pap smear and cervical HPV (human papillomavirus) CAD (coronary artery disease) 2103 diffuse moderate CAD in the left main and RCA-40-50%, seeing Dr. Chase Centrilobular emphysema (HCC) Chronic cholecystitis 08/24/07 Chronic depressive personality disorder Chronic gastric ulcer without mention of hemorrhage, perforation, without mention of obstruction COPD with chronic bronchitis (HCC) Generalized anxiety disorder HTN (hypertension) Hyperlipidemia Incisional hernia without mention of obstruction or gangrene Irritable bowel syndrome Lumbago PONV (postoperative nausea and vomiting) Raynaud's phenomenon (by history or observed) Tobacco use disorder, continuous Daily smoker since age 16. PAST SURGICAL HISTORY Procedure Laterality Date APPENDECTOMY ENDOMETRIAL BX W/WO ENDOCERVIX BX W/O DILAT SPX 01/01/2009 Menorrhagia ESOPHAGOGASTRODUODENOSCOPY TRANSORAL DIAGNOSTIC 09/26/2012 EGD EXC BREAST LES PREOP PLMT RAD MARKER OPEN 1 LES 08/29/2009 left breast HEART CATHETERIZATION 11/07/2013 IMPLANT MESH OPN HERNIA RPR/DEBRIDEMENT CLOSURE 07/01/2008 LAPAROSCOPIC APPENDECTOMY LAPS SURG CHOLECYSTECTOMY W/CHOLANGIOGRAPHY 08/24/2007 LIG/TRNSXJ FLP TUBE ABDL/VAG APPR UNI/BI PREOP PLACEMENT NEEDLE LOC 08/29/2009 left breast REP INIT INCI/ VENTRAL HERNIA 11/27/2020 REPAIR FIRST ABDOMINAL WALL HERNIA 07/01/2008 SEPTOPLASTY/SUBMUCOUS RESECJ W/WO CARTILAGE GRF 2001 +/- Akhil STEREOTACTIC CORE BIOPSY 07/09/2009 LEFT BREAST FAMILY HISTORY Problem Relation Age of Onset Hypertension Mother Diabetes Mother Systemic Lupus Erythematosus Mother Alcohol/Drug Father (cardiac issues from this) Diabetes Father Allergies Father Cancer Father Esophageal Coronary Artery Disease Maternal Grandmother Emphysema Paternal Grandfather Asthma Son Diabetes Sister Diabetes Brother Cancer Other All through my father's family. Social History Tobacco Use Smoking status: Current Every Day Smoker Packs/day: 1.00 Years: 15.00 Pack years: 15.00 Types: Cigarettes Start date: 01/20/1991 Smokeless tobacco: Never Used Tobacco comment: Father smoked in childhood home, currently lives with a smoker who is willing to quit with patient. Vaping Use Vaping Use: Never used Substance Use Topics Alcohol use: No Drug use: Yes Types: Marijuana Comment: Smokes 2-3 times a week ALLERGIES Allergen Reactions Doxycycline Entex [Phenylephrin* Erythromycin Shortness of Breath Can take zpak Flexeril [Cyclobenz* Cough denies Omnicef [Cefdinir] GI Upset Penicillin G Intolerance unknown reaction during childhood Risperdal [Risperid* Swelling Ultram [Tramadol Hc* Swelling Valtrex [Valacyclov* Rash Medications: Current Outpatient Medications Medication Sig Dispense Refill gabapentin (NEURONTIN) 400 mg capsule Take 1 capsule by mouth three times daily for 180 days. 270 capsule 1 aspirin, enteric coated (ASPIRIN, ENTERIC COATED) 81 mg EC tablet TAKE 1 TABLET BY MOUTH EVERY DAY 90 tablet 3 atorvastatin (LIPITOR) 40 mg tablet Take 1 tablet by mouth once daily. 30 tablet 6 busPIRone (BUSPAR) 15 mg tablet Take 1 tablet by mouth three times daily. 90 tablet 2 venlafaxine ER (EFFEXOR XR) 150 mg 24 hr capsule Take 1 capsule by mouth once daily. 30 capsule 5 COMBIVENT RESPIMAT 20-100 mcg/actuation inhaler INHALE 1 PUFF INSTRUCTED FOUR TIMES DAILY NEEDED. 20 g 5 albuterol HFA (VENTOLIN HFA) 90 mcg/actuation inhaler Inhale 2 Puffs as instructed every 4 hours asneeded for wheezing/shortness of breath. [address] (PROTONIX) 40 mg tablet TAKE 1 TABLET BY MOUTH ON AN EMPTY STOMACH 1/2 HOUR BEFORE A MEAL TWICE DAILY 180 tablet 3 nitroglycerin sublingual (NITROQUICK) 0.4 mg SL tablet Dissolve 1 tablet under the tongue every 5 minutes as needed for Chest Pain. 25 tablet 0 cetirizine hcl(ZYRTEC 10 MG TAB) Take one(1) tablet daily. 0 magnesium oxide 400 mg magnesium tab Take 1 tablet by mouth twice daily. (Patient not taking: Reported on 06/07/2022 ) 60 tablet 0 No current facility-administered medications for this visit. Review of Systems Constitutional: Negative for chills, diaphoresis, fever, malaise/fatigue and weight loss. HENT: Negative for congestion, ear pain, nosebleeds, sinus pain and sore throat. Eyes: Negative for pain. Respiratory: Positive for shortness of breath. Negative for cough and wheezing. Cardiovascular: Positive for palpitations. Negative for chest pain, orthopnea, claudication, leg swelling and PND. Gastrointestinal: Negative for abdominal pain, blood in stool and melena. Genitourinary: Negative for hematuria. Musculoskeletal: Negative for falls. Neurological: Negative for dizziness, tingling, sensory change, speech change, focal weakness, lossof consciousness, weakness and headaches. Endo/Heme/Allergies: Does not bruise/bleed easily. Psychiatric/Behavioral: Negative for depression, memory loss and suicidal ideas. The patient is notnervous/anxious and does not have insomnia. Physical Examination: Vitals:BP 131/84 Pulse 92 Wt 148 lb (67.1kg) SpO2 98% LMP 11/07/2021 Last 2 Encounter Wt Readings: Date: Wt: 05/04/2022 148 lb 3.2 oz (67.2 kg) 03/03/2022 148 lb 9.6 oz (67.4 kg) Physical Exam HENT: Head: Normocephalic. Eyes: Pupils: Pupils are equal, round, and reactive to light. Cardiovascular: Rate and Rhythm: Normal rate and regular rhythm. Pulses: Radial pulses are 2+ on the right side and 2+ on the left side. Dorsalis pedis pulses are 2+ on the right side and 2+ on the left side. Heart sounds: Normal heart sounds, S1 normal and S2 normal. Pulmonary: Effort: Pulmonary effort is normal. No accessory muscle usage or respiratory distress. Breath sounds: Normal breath sounds. Abdominal: General: Bowel sounds are normal. Palpations: Abdomen is soft. Musculoskeletal: General: Normal range of motion. Cervical back: Normal range of motion. Right lower leg: No edema. Left lower leg: No edema. Skin: General: Skin is warm and dry. Neurological: Mental Status: She is alert and oriented to person, place, and time. Gait: Gait is intact. Psychiatric: Mood and Affect: Affect normal. Cognition and Memory: Memory normal. Judgment: Judgment normal. Most Recent Cardiac Testing Assessment and Plan: CAD -moderate with 60% to D1 and RCA on recent heart cath 03/2021 -without symptoms concerning for angina -EF 60% -continue ASA, statin, not able to tolerate bb -encouraged routine activity and heart healthy diet for risk factor modification Dyspnea on exertion -given recent C with non obstructive likely 2/2 to pulmonary status -stress echocardiogram with normal LV function no mention of significant valve disease Palpitations -symptoms related to anxiety/stress -stress echocardiogram with normal LV function no mention of significant valve disease -not able to tolerate bb -recommended conservative measures: stay hydrated, limit stimulants/caffiene, limit stress HTN -131/84 -Continue current medication(s) -Encouraged dietary sodium restriction/DASH diet -Recommended regular aerobic exercise. -Recommend home blood pressure monitoring, to bring results in on next visit -Goal of BP <130/80 HLD -lipid panel 01/2022 LDL 85 -continue Lipitor 40 mg Tobacco use -Encouraged cessation -Physiologic and physical aspects of tobacco addiction as well as strategies for quitting were discussed. -Counseling was given focusing on the harmful effects of this addiction especially given the patient's medical condition(s) which will be worsened because of the chemicals in tobacco. Follow up in 1 year. Patient to call with any issues or concerns prior to then. Some elements were copied from my note dated 12/07/2021, which have been updated where appropriate, and all reflect current medical decision making from today Electronically signed by Lindsay Jose APRN.CNP on June 07, 2022, 8:24 AM documented in this encounterCenterville06-29-2022 Miscellaneous Notes* Telephone Encounter - Bety Noriega - 05/05/2022 11:33 AM EDT Patient given results and verbalized understanding of instructions given. Bety Noriega * Telephone Encounter - Tyron Ivory APRN.CNP - 05/05/2022 11:27 AM EDT You tested positive for COVID-19 Follow the CDC guidelines for isolation: 1. Everyone, regardless of vaccination status, should stay home for 5 days. 2. If you have no symptoms or your symptoms are resolving after 5 days, you can leave your house. 3. Continue to wear a mask around others for 5 additional days. If you have a fever, continue to stay home until your fever resolves, even if it is longer than 5 days. Please monitor your symptoms, and for any worrisome symptoms, call your primary care provider or schedule a visit with [facility]. A test is not recommended to return to work/school when meeting the above criteria. documented in this encounterCenterville05-04-2022 Miscellaneous Notes* Telephone Encounter - Teagan Desai MA - 03/10/2022 9:03 AM EDT Patient's request for medication is as follows: Pending Prescriptions Disp Refills ASPIRIN 81 MG TABLET,DELAYED RELEASE 90 tablet 3 Sig: TAKE 1 TABLET BY MOUTH EVERY DAY LUKAS: Yes Last seen by Lindsay Jose CNP 12/07/21 Next appt 06/07/2022 Prescription(s) as above. Please process accordingly. Teagan Desai MA documented in this encounterCenterville05-02-2022 Miscellaneous Notes* Telephone Encounter - Wayne Solorio LPN - 03/08/2022 11:34 AM EDT TC to pt, spoke /c pt mother, notified of results/provider instructions. Pt mother verbalized understanding. Wayne Solorio LPN * Telephone Encounter - Hyun Haas LPN - 03/05/2022 3:09 PM EDT TC to Pt. Unable to LM due to the mailbox is full. Will try again later. Hyun Haas LPN * Telephone Encounter - Francy Bernard APRN.CNP - 03/05/2022 1:16 PM EDT Can please let patient know that I received her lab results. Everything looks okay except that she is now a little bit anemic. She needs some additional lab work. I went ahead and put the orders in. She also needs an ifob completed. documented in this encounterCenterville04-29-2022 Miscellaneous Notes* Telephone Encounter - CISCO Montaño - 03/05/2022 1:10 PM EDT TC to patient who verbalizes understanding of providers message. CISCO Montaño * Telephone Encounter - Francy Bernard APRN.SHERWIN - 03/05/2022 1:06 PM EDT Can please let patient know that I received her EMG results. The results are consistent with carpaltunnel. Recommend to follow-up with Ortho, as scheduled. Francy Bernard APRN.CNP documented in this encounterCenterville04-29-2022 History of Present illness Narrative* Ward Bernard DO - 03/05/2022 8:53 AM EDT UNIVERSAL PROTOCOL / SAFETY CHECKLIST Procedure to be Performed: EMG Sign In: A Moment of CARE was completed. Personnel directly involved with the procedure wore the appropriate PPE (Personal Protective Equipment). Patient/Surrogate Stated/Verified: PATIENT VERIFIED(optional for EMERGENT procedures): Patient name, Date of , Relevant allergies and The intended procedure Time Out Communication: Intended patient and procedure match the source documents. Correct side/site marked and visible. Sign Out: SIGN OUT (optional for EMERGENT procedures): Post-procedure follow-up management communicated and Plan of Care Visit completed when applicable. Ryann Bernard DO documented in this [facility]04-27-2022 Instructions* Patient Instructions* Francy Bernard APRN.CNP - 03/03/2022 11:51 AM EDT 1. Schedule w/ general surg (scope). 2. Schedule w/ ortho for the elbow. 3. Schedule the EMG (nerve conduction). Francy Bernard APRN.CNP documented in this encounterCenterville04-27-2022 History of Present illness Narrative* Francy Bernard APRN.CNP - 03/03/2022 11:36 AM EDT This is a 47 year old female who presents today with: Patient presents with: Pain (Elbow Pain): LEFT elbow x 1 month HISTORY OF PRESENT ILLNESS: Bev Webb is a 47 year old female. Patient presents with: Pain (Elbow Pain): LEFT elbow x 1 month Patient presents today with complaints of left elbow pain x1 month. No known injury. Will noticed some puffiness over the elbow. No redness. Has had left lateral epicondyl injected in the past several times. . Will get some n/t in the entire arm. Painful to rest elbow against a hard surface. Also with chronic neck pain for the past several years. She was seen in urgent care approximately a month ago. She had a normal xray at that time. PAST MEDICAL HISTORY: PAST MEDICAL HISTORY Diagnosis Date Abnormal mammogram, unspecified LEFT BREAST Abnormal Pap smear and cervical HPV (human papillomavirus) CAD (coronary artery disease) 2103 diffuse moderate CAD in the left main and RCA-40-50%, seeing Dr. Chase Centrilobular emphysema (HCC) Chronic cholecystitis 08/24/07 Chronic depressive personality disorder Chronic gastric ulcer without mention of hemorrhage, perforation, without mention of obstruction COPD with chronic bronchitis (HCC) Generalized anxiety disorder HTN (hypertension) Hyperlipidemia Incisional hernia without mention of obstruction or gangrene Irritable bowel syndrome Lumbago PONV (postoperative nausea and vomiting) Raynaud's phenomenon (by history or observed) Tobacco use disorder, continuous Daily smoker since age 16. PAST SURGICAL HISTORY Procedure Laterality Date APPENDECTOMY ENDOMETRIAL BX W/WO ENDOCERVIX BX W/O DILAT SPX 01/01/2009 Menorrhagia ESOPHAGOGASTRODUODENOSCOPY TRANSORAL DIAGNOSTIC 09/26/2012 EGD EXC BREAST LES PREOP PLMT RAD MARKER OPEN 1 LES 08/29/2009 left breast HEART CATHETERIZATION 11/07/2013 IMPLANT MESH OPN HERNIA RPR/DEBRIDEMENT CLOSURE 07/01/2008 LAPAROSCOPIC APPENDECTOMY LAPS SURG CHOLECYSTECTOMY W/CHOLANGIOGRAPHY 08/24/2007 LIG/TRNSXJ FLP TUBE ABDL/VAG APPR UNI/BI PREOP PLACEMENT NEEDLE LOC 08/29/2009 left breast REP INIT INCI/ VENTRAL HERNIA 11/27/2020 REPAIR FIRST ABDOMINAL WALL HERNIA 07/01/2008 SEPTOPLASTY/SUBMUCOUS RESECJ W/WO CARTILAGE GRF 2001 +/- Tim-Andre STEREOTACTIC CORE BIOPSY 07/09/2009 LEFT BREAST ALLERGIES Doxycycline, Entex [Phenylephrine-Guaifenesin], Erythromycin, Flexeril [Cyclobenzaprine Hcl], Omnicef [Cefdinir], Penicillin G, Risperdal [Risperidone], Ultram [Tramadol Hcl], and Valtrex [Valacyclovir Hcl] MEDICATIONS Current Outpatient Medications Medication Sig atorvastatin (LIPITOR) 40 mg tablet Take 1 tablet by mouth once daily. busPIRone (BUSPAR) 15 mg tablet Take 1 tablet by mouth three times daily. gabapentin (NEURONTIN) 400 mg capsule Take 1 capsule by mouth three times daily for 90 days. venlafaxine ER (EFFEXOR XR) 150 mg 24 hr capsule Take 1 capsule by mouth once daily. magnesium oxide 400 mg magnesium tab Take 1 tablet by mouth twice daily. aspirin, enteric coated (ECOTRIN LOW STRENGTH) 81 mg EC tablet Take 1 tablet by mouth once daily. COMBIVENT RESPIMAT 20-100 mcg/actuation inhaler INHALE 1 PUFF INSTRUCTED FOUR TIMES DAILY NEEDED. albuterol HFA (VENTOLIN HFA) 90 mcg/actuation inhaler Inhale 2 Puffs as instructed every 4 hours asneeded for wheezing/shortness of breath. pantoprazole DR (PROTONIX) 40 mg tablet TAKE 1 TABLET BY MOUTH ON AN EMPTY STOMACH 1/2 HOUR BEFORE A MEAL TWICE DAILY nitroglycerin sublingual (NITROQUICK) 0.4 mg SL tablet Dissolve 1 tablet under the tongue every 5 minutes as needed for Chest Pain. cetirizine hcl(ZYRTEC 10 MG TAB) Take one(1) tablet daily. No current facility-administered medications for this visit. FAMILY HISTORY Problem Relation Age of Onset Hypertension Mother Diabetes Mother Systemic Lupus Erythematosus Mother Alcohol/Drug Father (cardiac issues from this) Diabetes Father Allergies Father Cancer Father Esophageal Coronary Artery Disease Maternal Grandmother Emphysema Paternal Grandfather Asthma Son Diabetes Sister Diabetes Brother Cancer Other All through my father's family. Social History Tobacco Use Smoking status: Current Every Day Smoker Packs/day: 1.00 Years: 15.00 Pack years: 15.00 Types: Cigarettes Start date: 01/20/1991 Smokeless tobacco: Never Used Tobacco comment: Father smoked in childhood home, currently lives with a smoker who is willing to quit with patient. Vaping Use Vaping Use: Never used Substance Use Topics Alcohol use: No Drug use: Yes Types: Marijuana Comment: Smokes 2-3 times a week EXAM: BP 136/86 Pulse 82 Resp 16 Wt 67.4 kg (148 lb 9.6 oz) LMP 11/07/2021 SpO2 99% BMI 27.35kg/m PHYSICAL EXAM: General Appearance: Well appearing, alert, in no acute distress, well-hydrated, well nourished.. Skin: Skin color, texture, turgor normal, no suspicious rashes or lesions. Head: Normocephalic, no masses, lesions, tenderness or abnormalities. Eyes: Anicteric sclera. Extraocular movements are intact. . Neck: Supple, no adenopathy. ROM limited. Lungs: Lungs clear to auscultation. No wheezing, rhonchi, rales.. Heart: RRR without murmur, gallop, or rubs. No ectopy. Extremities: No deformities, edema, skin discoloration, clubbing or cyanosis. Good capillary refill. = strength. Some mild tenderness over the lateral epicondyl. She also has discomfort over the olecranon process. Neurologic: Gait normal. ASSESSMENT/PLAN: 1. Left elbow pain - ICD9: 719.42, ICD10: M25.522 (primary diagnosis) We will go ahead and get an EMG. We will also refer to Ortho. She has had previous injections into the lateral epicondyle area. Question if needing an injection into the actual elbow/bursa. Continue to protect/pad the area. - EMG(NEURO/NI) - CONSULT TO ORTHOPAEDICS 2. Skin sensation disturbance - ICD9: 782.0, ICD10: R20.9 - EMG(NEURO/NI) ? If this is actually coming from the neck. She had an MRI in the past. Will get EMG. Discussed treatment plan and patient voices understanding. Patient's questions answered appropriately. Medications and potential side effects were discussed and patient voices understanding. Return to the office as scheduled or as needed for worsening/no improvement. Francy Bernard APRN.SHERWIN This note was partially generated using WakeMate voice recognition system. Note was reviewed for accuracy. There may be minor misspellings or grammar miscues with WakeMate voice recognition. documented in this encounterCenterville04-11-2022 Miscellaneous Notes* Telephone Encounter - Addis García RN - 02/15/2022 8:05 AM EDT Patient has been identified by name and date of : Yes Patient phones for refill(s): Pending Prescriptions Disp Refills VENLAFAXINE ER 150 MG CAPSULE,EXTENDED RELEASE 24 HR 30 capsule 5 Sig: Take 1 capsule by mouth once daily. LUKAS: No Date of last office visit in primary care: 01/27/2022 Last 2 Encounter Wt Readings: Date: Wt: 02/01/2022 69.9 kg (154 lb) 01/27/2022 60.3 kg (133 lb) Previous labs/tests for medication: Blood Pressure: BUN (mg/dL) Date Value 01/27/2022 7 10/15/2020 10 Sodium (mmol/L) Date Value 01/27/2022 137 10/15/2020 139 Last 1 Encounter BP Readings: Date: BP: 02/01/2022 122/86 Liver Function: ALT (U/L) Date Value 01/27/2022 11 10/15/2020 10 AST (U/L) Date Value 01/27/2022 11 10/15/2020 10 Please advise. Thank you. Addis García RN documented in this encounterCenterville03-28-2022 History of Present illness Narrative* Rhea Pardo RT(R) - 02/01/2022 9:20 AM EDT Radiology Service Progress Note PATIENT NAME: Bev Webb DATE OF SERVICE: February 01, 2022 TIME: 9:14 AM PATIENT IDENTITY VERIFICATION COMPLETED USING TWO (2) IDENTIFIERS: Name and Date of confirmedby patient verbally. FALL SCREENING: Has the patient had 2 falls in the last year or 1 fall with injury or currently using an Ambulatory Assistive Device (Walker, Cane, Wheelchair, Crutches, etc.)? No PATIENT GENDER DATA: Female. status: : No status: NO. PATIENT RELEVANT IMPLANT DATA REVIEWED: Not Applicable RADIOLOGY DEPARTMENT: General X-ray: Exam(s) Completed: Upper Extremity X- Ray(s): Elbow, left PERIPHERAL IV DATA: Not applicable SIGNED BY: RT Sushant(R) February 01, 2022 9:14 AM documented in this encounterCenterville03-28-2022 History of Present illness Narrative* Wm Rayo MD - 02/01/2022 8:55 AM EDT Patient presents with: Pain (Elbow Pain): L elbow x1 week, no known cause HPI: Left elbow pain: Duration: 6 days Location: Left elbow Character: Cold, burn, sharp Radiation: Down the ulna to the medial fingers Aggravating: Resting elbow on surfaces, sometimes moving Relieving: None. Tried heat Pain relievers: Naproxen, tylenol, iburofen Associated: Swelling?, tingling in fingers, recent illness, chronic left neck pain Pertinent negatives: Denies known injury, fever Had ER follow up last week for illness. Completed cipro and potassium. On Mg. Did not take prednisone. PAST MEDICAL HISTORY Diagnosis Date Abnormal mammogram, unspecified LEFT BREAST Abnormal Pap smear and cervical HPV (human papillomavirus) CAD (coronary artery disease) 2103 diffuse moderate CAD in the left main and RCA-40-50%, seeing Dr. Chase Centrilobular emphysema (HCC) Chronic cholecystitis 08/24/07 Chronic depressive personality disorder Chronic gastric ulcer without mention of hemorrhage, perforation, without mention of obstruction COPD with chronic bronchitis (HCC) Generalized anxiety disorder HTN (hypertension) Hyperlipidemia Incisional hernia without mention of obstruction or gangrene Irritable bowel syndrome Lumbago PONV (postoperative nausea and vomiting) Raynaud's phenomenon (by history or observed) Tobacco use disorder, continuous Daily smoker since age 16. MEDICATIONS: magnesium oxide 400 mg magnesium tab Take 1 tablet by mouth twice daily. aspirin, enteric coated (ECOTRIN LOW STRENGTH) 81 mg EC tablet Take 1 tablet by mouth once daily. COMBIVENT RESPIMAT 20-100 mcg/actuation inhaler INHALE 1 PUFF INSTRUCTED FOUR TIMES DAILY NEEDED. busPIRone (BUSPAR) 15 mg tablet Take 1 tablet by mouth three times daily. albuterol HFA (VENTOLIN HFA) 90 mcg/actuation inhaler Inhale 2 Puffs as instructed every 4 hours asneeded for wheezing/shortness of breath. omeprazole (PRILOSEC) 20 mg capsule Take 1 capsule by mouth daily before breakfast. 1/2 hr before meal. atorvastatin (LIPITOR) 40 mg tablet Take 1 tablet by mouth once daily. pantoprazole DR (PROTONIX) 40 mg tablet TAKE 1 TABLET BY MOUTH ON AN EMPTY STOMACH 1/2 HOUR BEFORE A MEAL TWICE DAILY venlafaxine ER (EFFEXOR XR) 150 mg 24 hr capsule Take 1 capsule by mouth once daily. nitroglycerin sublingual (NITROQUICK) 0.4 mg SL tablet Dissolve 1 tablet under the tongue every 5 minutes as needed for Chest Pain. cetirizine hcl(ZYRTEC 10 MG TAB) Take one(1) tablet daily. gabapentin (NEURONTIN) 400 mg capsule Take 1 capsule by mouth three times daily for 90 days. ALLERGIES: ALLERGIES Allergen Reactions Doxycycline Entex [Phenylephrin* Erythromycin Shortness of Breath Can take zpak Flexeril [Cyclobenz* Cough denies Omnicef [Cefdinir] GI Upset Penicillin G Intolerance unknown reaction during childhood Risperdal [Risperid* Swelling Ultram [Tramadol Hc* Swelling Valtrex [Valacyclov* Rash VITALS: BP 122/86 Pulse 87 Temp 36.3 C (97.3 F) Resp 20 Wt 69.9 kg (154 lb) LMP 11/07/2021 [id number]% BMI 28.34 kg/m PHYSICAL EXAM: GEN: pleasant, no acute distress, alert HEENT: PERRL, EOMI, MMM NECK: supple, no lymphadenopathy, no thyromegaly, no midline spinous tenderness, left paraspinal/trapezius tenderness ROM: full ROM with neck discomfort on left lateral extension and rotation. HEART: regular rate, regular rhythm, no murmurs LUNGS: clear to auscultation, no wheezes or crackles, no increased WOB ABD: soft, non-distended, no masses palpated, non-tender EXT: no clubbing, no cyanosis, no edema ELBOW. No erythema, edema, ecchymosis, or deformity. Full ROM without pain. Tender olecranon process. Non-tender epicondyles. Ulnar tunnel tap does not induce symptoms. HAND: Normal strength in hand pump erector, pincer grasp, and finger abduction. 2+/4 radial pulses. ASSESSMENT/PLAN: 1. Left elbow pain - ICD9: 719.42, ICD10: M25.522 (primary diagnosis) 2. Numbness of fingers - ICD9: 782.0, ICD10: R20.0 - XR ELBOW SPECIAL VIEWS AP/LAT/OTHER LEFT - negative She has signs and symptoms of olecranon musculoskeletal tenderness and ulnar nerve neuropathy. Differential also includes cipro associated tendonitis/bursitis/neuropathy and cervical impingement. Begin conservative treatment with elbow padding. Nerve conduction testing if hand numbness persists. Wm Rayo MD documented in this encounterCenterville03-23-2022 Miscellaneous Notes* Telephone Encounter - Wayne Solorio LPN - 01/27/2022 5:00 PM EDT TC to pt, notified of results/provider response. She verbalized understanding. Wayne Solorio LPN * Telephone Encounter - Francy Bernard APRN.CNP - 01/27/2022 4:54 PM EDT Can please let patient know that I received her lab results. Her white count is much better. Her potassium is stable. Her magnesium is low. Lets have her start magnesium one tablet twice daily. I sent this into the pharmacy. Her urine does also look like it may have an infection. The cipro she is taking should treat that. Lets have her return next week to repeat the labwork and give another urine. The orders are in. documented in this encounterCenterville03-23-2022 Instructions* Patient Instructions* Francy Bernard APRN.CNP - 01/27/2022 8:10 AM EDT 1. Continue the same medications. 2. Go get your labwork. documented in this encounterCenterville03-23-2022 History of Present illness Narrative* Francy Bernard MARYBETH.OXYGEN FURNACE OPERATOR - 01/27/2022 7:47 AM EDT This is a 47 year old female who presents today with: Patient presents with: Follow Up: ER HISTORY OF PRESENT ILLNESS: Bev Webb is a 47 year old female. Patient presents with: Follow Up: ER Pt presents today for ER follow-up. She was at [facility] on 01/23/22. Refers that she hadn't been feeling well for several days. Myalgia, sore throat, felt feverish, coughing. Was nauseated, no vomited. She had diarrhea, but that is improved -- had had for about three days. In the ER, she was found to have an elevated white count of 17. She was given prednisone -- which she didn't start yet. Potassium replacement. Cipro -- for possible bronchitis. She was taking potassium 20 kaylah -- two tablets twice daily for 2 days. She is taking cipro BID . Refers that she feels improved, but still feels tired and sluggish. Refers that she has pretty much been in bed since she got back to the area on Tuesday. Just tired and no energy. REVIEW OF SYSTEMS RESPIRATORY: + cough. COPD symptoms usually controlled with albuterol and combivent. + smoker. CARDIOVASCULAR: Negative for chest pain, leg swelling, orthopnea, or palpitations GI: No nausea, vomiting, or diarrhea/constipation. No hematochezia/melena. Heartburn or reflux controlled w/ PPI. : No history of dysuria, frequency or incontinence MUSCULOSKELETAL: myalgias improved. PAST MEDICAL HISTORY: PAST MEDICAL HISTORY Diagnosis Date Abnormal mammogram, unspecified LEFT BREAST Abnormal Pap smear and cervical HPV (human papillomavirus) CAD (coronary artery disease) 2103 diffuse moderate CAD in the left main and RCA-40-50%, seeing Dr. Chase Centrilobular emphysema (HCC) Chronic cholecystitis 08/24/07 Chronic depressive personality disorder Chronic gastric ulcer without mention of hemorrhage, perforation, without mention of obstruction COPD with chronic bronchitis (HCC) Generalized anxiety disorder HTN (hypertension) Hyperlipidemia Incisional hernia without mention of obstruction or gangrene Irritable bowel syndrome Lumbago PONV (postoperative nausea and vomiting) Raynaud's phenomenon (by history or observed) Tobacco use disorder, continuous Daily smoker since age 16. PAST SURGICAL HISTORY Procedure Laterality Date APPENDECTOMY ENDOMETRIAL BX W/WO ENDOCERVIX BX W/O DILAT SPX 01/01/2009 Menorrhagia ESOPHAGOGASTRODUODENOSCOPY TRANSORAL DIAGNOSTIC 09/26/2012 EGD EXC BREAST LES PREOP PLMT RAD MARKER OPEN 1 LES 08/29/2009 left breast HEART CATHETERIZATION 11/07/2013 IMPLANT MESH OPN HERNIA RPR/DEBRIDEMENT CLOSURE 07/01/2008 LAPAROSCOPIC APPENDECTOMY LAPS SURG CHOLECYSTECTOMY W/CHOLANGIOGRAPHY 08/24/2007 LIG/TRNSXJ FLP TUBE ABDL/VAG APPR UNI/BI PREOP PLACEMENT NEEDLE LOC 08/29/2009 left breast REP INIT INCI/ VENTRAL HERNIA 11/27/2020 REPAIR FIRST ABDOMINAL WALL HERNIA 07/01/2008 SEPTOPLASTY/SUBMUCOUS RESECJ W/WO CARTILAGE GRF 2001 +/- Tim-Andre STEREOTACTIC CORE BIOPSY 07/09/2009 LEFT BREAST ALLERGIES Doxycycline, Entex [Phenylephrine-Guaifenesin], Erythromycin, Flexeril [Cyclobenzaprine Hcl], Omnicef [Cefdinir], Penicillin G, Risperdal [Risperidone], Ultram [Tramadol Hcl], and Valtrex [Valacyclovir Hcl] MEDICATIONS Current Outpatient Medications Medication Sig carvedilol (COREG) 3.125 mg tablet TAKE 1 TABLET BY MOUTH TWICE A DAY aspirin, enteric coated (ECOTRIN LOW STRENGTH) 81 mg EC tablet Take 1 tablet by mouth once daily. gabapentin (NEURONTIN) 400 mg capsule Take 1 capsule by mouth three times daily for 90 days. COMBIVENT RESPIMAT 20-100 mcg/actuation inhaler INHALE 1 PUFF INSTRUCTED FOUR TIMES DAILY NEEDED. busPIRone (BUSPAR) 15 mg tablet Take 1 tablet by mouth three times daily. albuterol HFA (VENTOLIN HFA) 90 mcg/actuation inhaler Inhale 2 Puffs as instructed every 4 hours asneeded for wheezing/shortness of breath. omeprazole (PRILOSEC) 20 mg capsule Take 1 capsule by mouth daily before breakfast. 1/2 hr before meal. atorvastatin (LIPITOR) 40 mg tablet Take 1 tablet by mouth once daily. pantoprazole DR (PROTONIX) 40 mg tablet TAKE 1 TABLET BY MOUTH ON AN EMPTY STOMACH 1/2 HOUR BEFORE A MEAL TWICE DAILY venlafaxine ER (EFFEXOR XR) 150 mg 24 hr capsule Take 1 capsule by mouth once daily. ondansetron orally disintegrating (ZOFRAN ODT) 4 mg disintegrating tablet Take 1 tablet by mouth every 6 hours as needed for nausea/vomiting. nitroglycerin sublingual (NITROQUICK) 0.4 mg SL tablet Dissolve 1 tablet under the tongue every 5 minutes as needed for Chest Pain. cetirizine hcl(ZYRTEC 10 MG TAB) Take one(1) tablet daily. Current Facility-Administered Medications Medication Dose Route Frequency perflutren lipid microspheres 1.3 mL in NaCl (PF) 0.9% 10 mL injection (DEFINITY) INTRAVENOUS DIRECTED PRN sodium chloride 0.9 % (flush) 10 mL (BD POSIFLUSH) 10 mL INTRAVENOUS DIRECTED PRN FAMILY HISTORY Problem Relation Age of Onset Hypertension Mother Diabetes Mother Systemic Lupus Erythematosus Mother Alcohol/Drug Father (cardiac issues from this) Diabetes Father Allergies Father Cancer Father Esophageal Coronary Artery Disease Maternal Grandmother Emphysema Paternal Grandfather Asthma Son Diabetes Sister Diabetes Brother Cancer Other All through my father's family. Social History Tobacco Use Smoking status: Current Every Day Smoker Packs/day: 1.00 Years: 15.00 Pack years: 15.00 Types: Cigarettes Start date: 01/20/1991 Smokeless tobacco: Never Used Tobacco comment: Father smoked in childhood home, currently lives with a smoker who is willing to quit with patient. Vaping Use Vaping Use: Never used Substance Use Topics Alcohol use: No Drug use: Yes Types: Marijuana Comment: Smokes 2-3 times a week EXAM: BP 120/78 Pulse 107 Resp 16 Wt 60.3 kg (133 lb) LMP 11/07/2021 SpO2 96% BMI 24.48 kg/m PHYSICAL EXAM: General Appearance: Well appearing, alert, in no acute distress, well-hydrated, well nourished.. Skin: Skin color, texture, turgor normal, no suspicious rashes or lesions. Head: Normocephalic, no masses, lesions, tenderness or abnormalities. Eyes: Anicteric sclera. Pupils are equally round and reactive to light. Extraocular movements are intact. . Ears: External ears normal, canals clear, Normal TMs bilaterally. Oropharynx: Lips, mucosa, and tongue normal, teeth and gums normal, oropharynx normal. Neck: Supple, no adenopathy; thyroid symmetric, normal size, no bruits. Lungs: Lungs clear to auscultation. No wheezing, rhonchi, rales.. Heart: RRR without murmur, gallop, or rubs. No ectopy. Abdomen: Abdomen soft, non-tender. Bowel sounds normal. No masses, organomegaly. Extremities: No deformities, edema, skin discoloration, clubbing or cyanosis. Good capillary refill. . Neurologic: Gait normal. ASSESSMENT/PLAN: 1. Fatigue, unspecified type - ICD9: 780.79, ICD10: R53.83 (primary diagnosis) Still fatigued. - CBC + DIFF - T4 FREE/FREE THYROX - TSH BLD 2. Leukocytosis, unspecified type - ICD9: 288.60, ICD10: D72.829 - URINALYSIS, WITH MICROSCOPIC Repeat CBC 3. Hypokalemia - ICD9: 276.8, ICD10: E87.6 May have been related to diarrhea. This is resolved now. Finished the potassium given to her in the ER. - COMP METABOLIC PANEL 4. Primary hypertension - ICD9: 401.9, ICD10: I10 - good control - Continue current medication(s) - Recommended regular aerobic exercise. - Recommend home blood pressure monitoring, to bring results in on next visit - Goal of BP <130/80 - COMP METABOLIC PANEL 5. Hyperlipidemia, unspecified hyperlipidemia type - ICD9: 272.4, ICD10: E78.5 - to be determined upon return of lab results - Continue current medication. - LIPID PANEL, NONFASTING 6. Gastroesophageal reflux disease, unspecified whether esophagitis present - ICD9: 530.81, ICD10: K21.9 Controlled w/ PPI - MAGNESIUM BLD Discussed treatment plan and patient voices understanding. Patient's questions answered appropriately. Medications and potential side effects were discussed and patient voices understanding. Return to the office as scheduled or as needed for worsening/no improvement. Francy Bernard APRN.SHERWIN documented in this encounterCenterville01-08-2022 History of Present illness Narrative* Mariella Worthington, RT(R) - 11/14/2021 9:30 AM EST Radiology Service Progress Note PATIENT NAME: Bev Webb DATE OF SERVICE: November 14, 2021 TIME: 9:23 AM PATIENT IDENTITY VERIFICATION COMPLETED USING TWO (2) IDENTIFIERS: Name and Date of confirmedby patient verbally. FALL SCREENING: Has the patient had 2 falls in the last year or 1 fall with injury or currently using an Ambulatory Assistive Device (Walker, Cane, Wheelchair, Crutches, etc.)? No PATIENT GENDER DATA: Female. status: : No status: NO. PATIENT RELEVANT IMPLANT DATA REVIEWED: Not Applicable RADIOLOGY DEPARTMENT: General X-ray: Exam(s) Completed: Chest X-Ray PERIPHERAL IV DATA: Not applicable SIGNED BY: RT Lucero(R) November 14, 2021 9:23 AM documented in this encounterCenterville10-24-2018 History of Past illness Narrative* Problem Noted Date Resolved Date Chest pain 08/30/2018 08/30/2018 Overview: 2 days of L sided chest pain radiating to L arm and L neck. Similar in quality as in 2013 when she reportedly had elevated enzymes, positive stress test, and found to have coronary vasopasms on LHC. Hx of anxiety, significant social stressors. Stopped taking her BP meds 3 days ago due to feeling like her BP was low. - cycle CE - continue home medications - amlodipine, imdur - cardiology consult - tele Last Assessment & Plan: Assessment: Patient presented with L sided chest pain with radiation to the L arm and neck. Hx of CAD, had positive stress test in 2013 with subsequent LHC showing 50% stenosis of LAD and 40-50% stenosis of RCA Patient also notes hx of anxiety and recent stressors (father recently diagnosed with cancer, kicked out her drug addict boyfriend) Hx of polysubstance abuse, follows with pain management Dr. Tarango where she receives Vivitrol injections monthly Telemetry showed no acute events overnight HST negative in ED, additional troponin negative CXR unremarkable EKG shows NSR, no ischemic changes Urine tox screen positive for PCP, amphetamines, THC Chest pain free this morning PLAN: Patient remains hypotensive-possibly related to tox screen results Morning BP meds held, nitro patch removed IVF Cardiology consult Herpes simplex infection 03/18/2016 017 Lymphadenopathy 06/06/2014 04/27/2017 Tinea versicolor 01/29/2011 09/24/2014 Post-inflammatory hyperpigmentation 01/29/2011 09/24/2014 Pruritus 01/29/2011 09/24/2014 Routine general medical exam ination at a health care facility 01/15/2011 08/09/2012 Overview: 01/15/2011, from Dr. Alicia Routine gynecological examination 01/15/2011 08/09/2012 Overview: [facility], [facility] Tonya Cellulitis 09/17/2009 04/27/2017 ABNORMAL XRAY ABDOMINAL 10/08/2008 09/24/20 14 NAUSEA 10/08/2008 08/09/2012 ABDOMINAL PAIN( Periumbilical) 10/08/2008 1 Fever and other physiologic disturbances of temperature regulation 07/04/2008 08/09/2012 PAIN ABDOMEN( Epigastric) 07/04/20082011 Unspecified gastritis and ga stroduodenitis without mention of hemorrhage 08/16/2006 04/27/2017 Allergic rhinitis, cause unspecified 08/16/2006 04/27/2017 documented as of this encounter (statuses as of 01/27/2022) [place]10-24-2018 History of Past illness Narrative* Problem Noted Date Resolved Date Chest pain 08/30/2018 08/30/2018 Overview: 2 days of L sided chest pain radiating to L arm and L neck. Similar in quality as in 2013 when she reportedly had elevated enzymes, positive stress test, and found to have coronary vasopasms on LHC. Hx of anxiety, significant social stressors. Stopped taking her BP meds 3 days ago due to feeling like her BP was low. - cycle CE - continue home medications - amlodipine, imdur - cardiology consult - tele Last Assessment & Plan: Assessment: Patient presented with L sided chest pain with radiation to the L arm and neck. Hx of CAD, had positive stress test in 2013 with subsequent LHC showing 50% stenosis of LAD and 40-50% stenosis of RCA Patient also notes hx of anxiety and recent stressors (father recently diagnosed with cancer, kicked out her drug addict boyfriend) Hx of polysubstance abuse, follows with pain management Dr. Tarango where she receives Vivitrol injections monthly Telemetry showed no acute events overnight HST negative in ED, additional troponin negative CXR unremarkable EKG shows NSR, no ischemic changes Urine tox screen positive for PCP, amphetamines, THC Chest pain free this morning PLAN: Patient remains hypotensive-possibly related to tox screen results Morning BP meds held, nitro patch removed IVF Cardiology consult Herpes simplex infection 03/18/2016 017 Lymphadenopathy 06/06/2014 04/27/2017 Tinea versicolor 01/29/2011 09/24/2014 Post-inflammatory hyperpigmentation 01/29/2011 09/24/2014 Pruritus 01/29/2011 09/24/2014 Routine general medical exam ination at a health care facility 01/15/2011 08/09/2012 Overview: 01/15/2011, from Dr. Alicia Routine gynecological examination 01/15/2011 08/09/2012 Overview: [facility], [facility] Tonya Cellulitis 09/17/2009 04/27/2017 ABNORMAL XRAY ABDOMINAL 10/08/2008 09/24/20 14 NAUSEA 10/08/2008 08/09/2012 ABDOMINAL PAIN( Periumbilical) 10/08/2008 1 Fever and other physiologic disturbances of temperature regulation 07/04/2008 08/09/2012 PAIN ABDOMEN( Epigastric) 07/04/20082011 Unspecified gastritis and ga stroduodenitis without mention of hemorrhage 08/16/2006 04/27/2017 Allergic rhinitis, cause unspecified 08/16/2006 04/27/2017 documented as of this encounter (statuses as of 01/27/2022) [place]10-24-2018 History of Past illness Narrative* Problem Noted Date Resolved Date Chest pain 08/30/2018 08/30/2018 Overview: 2 days of L sided chest pain radiating to L arm and L neck. Similar in quality as in 2013 when she reportedly had elevated enzymes, positive stress test, and found to have coronary vasopasms on LHC. Hx of anxiety, significant social stressors. Stopped taking her BP meds 3 days ago due to feeling like her BP was low. - cycle CE - continue home medications - amlodipine, imdur - cardiology consult - tele Last Assessment & Plan: Assessment: Patient presented with L sided chest pain with radiation to the L arm and neck. Hx of CAD, had positive stress test in 2013 with subsequent LHC showing 50% stenosis of LAD and 40-50% stenosis of RCA Patient also notes hx of anxiety and recent stressors (father recently diagnosed with cancer, kicked out her drug addict boyfriend) Hx of polysubstance abuse, follows with pain management Dr. Tarango where she receives Vivitrol injections monthly Telemetry showed no acute events overnight HST negative in ED, additional troponin negative CXR unremarkable EKG shows NSR, no ischemic changes Urine tox screen positive for PCP, amphetamines, THC Chest pain free this morning PLAN: Patient remains hypotensive-possibly related to tox screen results Morning BP meds held, nitro patch removed IVF Cardiology consult Herpes simplex infection 03/18/2016 017 Lymphadenopathy 06/06/2014 04/27/2017 Tinea versicolor 01/29/2011 09/24/2014 Post-inflammatory hyperpigmentation 01/29/2011 09/24/2014 Pruritus 01/29/2011 09/24/2014 Routine general medical exam ination at a health care facility 01/15/2011 08/09/2012 Overview: 01/15/2011, from Dr. Alicia Routine gynecological examination 01/15/2011 08/09/2012 Overview: [facility], [facility] [place] Cellulitis 09/17/2009 04/27/2017 ABNORMAL XRAY ABDOMINAL 10/08/2008 09/24/20 14 NAUSEA 10/08/2008 08/09/2012 ABDOMINAL PAIN( Periumbilical) 10/08/2008 1 Fever and other physiologic disturbances of temperature regulation 07/04/2008 08/09/2012 PAIN ABDOMEN( Epigastric) 07/04/20082011 Unspecified gastritis and ga stroduodenitis without mention of hemorrhage 08/16/2006 04/27/2017 Allergic rhinitis, cause unspecified 08/16/2006 04/27/2017 documented as of this encounter (statuses as of 02/01/2022) [place]10-24-2018 History of Past illness Narrative* Problem Noted Date Resolved Date Chest pain 08/30/2018 08/30/2018 Overview: 2 days of L sided chest pain radiating to L arm and L neck. Similar in quality as in 2013 when she reportedly had elevated enzymes, positive stress test, and found to have coronary vasopasms on LHC. Hx of anxiety, significant social stressors. Stopped taking her BP meds 3 days ago due to feeling like her BP was low. - cycle CE - continue home medications - amlodipine, imdur - cardiology consult - tele Last Assessment & Plan: Assessment: Patient presented with L sided chest pain with radiation to the L arm and neck. Hx of CAD, had positive stress test in 2013 with subsequent LHC showing 50% stenosis of LAD and 40-50% stenosis of RCA Patient also notes hx of anxiety and recent stressors (father recently diagnosed with cancer, kicked out her drug addict boyfriend) Hx of polysubstance abuse, follows with pain management Dr. Tarango where she receives Vivitrol injections monthly Telemetry showed no acute events overnight HST negative in ED, additional troponin negative CXR unremarkable EKG shows NSR, no ischemic changes Urine tox screen positive for PCP, amphetamines, THC Chest pain free this morning PLAN: Patient remains hypotensive-possibly related to tox screen results Morning BP meds held, nitro patch removed IVF Cardiology consult Herpes simplex infection 03/18/2016 017 Lymphadenopathy 06/06/2014 04/27/2017 Tinea versicolor 01/29/2011 09/24/2014 Post-inflammatory hyperpigmentation 01/29/2011 09/24/2014 Pruritus 01/29/2011 09/24/2014 Routine general medical exam ination at a health care facility 01/15/2011 08/09/2012 Overview: 01/15/2011, from Dr. Alicia Routine gynecological examination 01/15/2011 08/09/2012 Overview: [facility], [facility] [place] Cellulitis 09/17/2009 04/27/2017 ABNORMAL XRAY ABDOMINAL 10/08/2008 09/24/20 14 NAUSEA 10/08/2008 08/09/2012 ABDOMINAL PAIN( Periumbilical) 10/08/2008 1 Fever and other physiologic disturbances of temperature regulation 07/04/2008 08/09/2012 PAIN ABDOMEN( Epigastric) 07/04/20082011 Unspecified gastritis and ga stroduodenitis without mention of hemorrhage 08/16/2006 04/27/2017 Allergic rhinitis, cause unspecified 08/16/2006 04/27/2017 documented as of this encounter (statuses as of 02/15/2022) [place]10-24-2018 History of Past illness Narrative* Problem Noted Date Resolved Date Chest pain 08/30/2018 08/30/2018 Overview: 2 days of L sided chest pain radiating to L arm and L neck. Similar in quality as in 2013 when she reportedly had elevated enzymes, positive stress test, and found to have coronary vasopasms on LHC. Hx of anxiety, significant social stressors. Stopped taking her BP meds 3 days ago due to feeling like her BP was low. - cycle CE - continue home medications - amlodipine, imdur - cardiology consult - tele Last Assessment & Plan: Assessment: Patient presented with L sided chest pain with radiation to the L arm and neck. Hx of CAD, had positive stress test in 2013 with subsequent LHC showing 50% stenosis of LAD and 40-50% stenosis of RCA Patient also notes hx of anxiety and recent stressors (father recently diagnosed with cancer, kicked out her drug addict boyfriend) Hx of polysubstance abuse, follows with pain management Dr. Tarango where she receives Vivitrol injections monthly Telemetry showed no acute events overnight HST negative in ED, additional troponin negative CXR unremarkable EKG shows NSR, no ischemic changes Urine tox screen positive for PCP, amphetamines, THC Chest pain free this morning PLAN: Patient remains hypotensive-possibly related to tox screen results Morning BP meds held, nitro patch removed IVF Cardiology consult Herpes simplex infection 03/18/2016 017 Lymphadenopathy 06/06/2014 04/27/2017 Tinea versicolor 01/29/2011 09/24/2014 Post-inflammatory hyperpigmentation 01/29/2011 09/24/2014 Pruritus 01/29/2011 09/24/2014 Routine general medical exam ination at a health care facility 01/15/2011 08/09/2012 Overview: 01/15/2011, from Dr. Alicia Routine gynecological examination 01/15/2011 08/09/2012 Overview: [facility], [facility] [place] Cellulitis 09/17/2009 04/27/2017 ABNORMAL XRAY ABDOMINAL 10/08/2008 09/24/20 14 NAUSEA 10/08/2008 08/09/2012 ABDOMINAL PAIN( Periumbilical) 10/08/2008 1 Fever and other physiologic disturbances of temperature regulation 07/04/2008 08/09/2012 PAIN ABDOMEN( Epigastric) 07/04/20082011 Unspecified gastritis and ga stroduodenitis without mention of hemorrhage 08/16/2006 04/27/2017 Allergic rhinitis, cause unspecified 08/16/2006 04/27/2017 documented as of this encounter (statuses as of 03/03/2022) [place]10-24-2018 History of Past illness Narrative* Problem Noted Date Resolved Date Chest pain 08/30/2018 08/30/2018 Overview: 2 days of L sided chest pain radiating to L arm and L neck. Similar in quality as in 2013 when she reportedly had elevated enzymes, positive stress test, and found to have coronary vasopasms on LHC. Hx of anxiety, significant social stressors. Stopped taking her BP meds 3 days ago due to feeling like her BP was low. - cycle CE - continue home medications - amlodipine, imdur - cardiology consult - tele Last Assessment & Plan: Assessment: Patient presented with L sided chest pain with radiation to the L arm and neck. Hx of CAD, had positive stress test in 2013 with subsequent LHC showing 50% stenosis of LAD and 40-50% stenosis of RCA Patient also notes hx of anxiety and recent stressors (father recently diagnosed with cancer, kicked out her drug addict boyfriend) Hx of polysubstance abuse, follows with pain management Dr. Tarango where she receives Vivitrol injections monthly Telemetry showed no acute events overnight HST negative in ED, additional troponin negative CXR unremarkable EKG shows NSR, no ischemic changes Urine tox screen positive for PCP, amphetamines, THC Chest pain free this morning PLAN: Patient remains hypotensive-possibly related to tox screen results Morning BP meds held, nitro patch removed IVF Cardiology consult Herpes simplex infection 03/18/2016 017 Lymphadenopathy 06/06/2014 04/27/2017 Tinea versicolor 01/29/2011 09/24/2014 Post-inflammatory hyperpigmentation 01/29/2011 09/24/2014 Pruritus 01/29/2011 09/24/2014 Routine general medical exam ination at a health care facility 01/15/2011 08/09/2012 Overview: 01/15/2011, from Dr. Alicia Routine gynecological examination 01/15/2011 08/09/2012 Overview: [facility], [facility] [place] Cellulitis 09/17/2009 04/27/2017 ABNORMAL XRAY ABDOMINAL 10/08/2008 09/24/20 14 NAUSEA 10/08/2008 08/09/2012 ABDOMINAL PAIN( Periumbilical) 10/08/2008 1 Fever and other physiologic disturbances of temperature regulation 07/04/2008 08/09/2012 PAIN ABDOMEN( Epigastric) 07/04/20082011 Unspecified gastritis and ga stroduodenitis without mention of hemorrhage 08/16/2006 04/27/2017 Allergic rhinitis, cause unspecified 08/16/2006 04/27/2017 documented as of this encounter (statuses as of 03/05/2022) [place]10-24-2018 History of Past illness Narrative* Problem Noted Date Resolved Date Chest pain 08/30/2018 08/30/2018 Overview: 2 days of L sided chest pain radiating to L arm and L neck. Similar in quality as in 2013 when she reportedly had elevated enzymes, positive stress test, and found to have coronary vasopasms on [facility]. Hx of anxiety, significant social stressors. Stopped taking her BP meds 3 days ago due to feeling like her BP was low. - cycle CE - continue home medications - amlodipine, imdur - cardiology consult - tele Last Assessment & Plan: Assessment: Patient presented with L sided chest pain with radiation to the L arm and neck. Hx of CAD, had positive stress test in 2013 with subsequent LHC showing 50% stenosis of LAD and 40-50% stenosis of RCA Patient also notes hx of anxiety and recent stressors (father recently diagnosed with cancer, kicked out her drug addict boyfriend) Hx of polysubstance abuse, follows with pain management Dr. Tarango where she receives Vivitrol injections monthly Telemetry showed no acute events overnight HST negative in ED, additional troponin negative CXR unremarkable EKG shows NSR, no ischemic changes Urine tox screen positive for PCP, amphetamines, THC Chest pain free this morning PLAN: Patient remains hypotensive-possibly related to tox screen results Morning BP meds held, nitro patch removed IVF Cardiology consult Herpes simplex infection 03/18/2016 017 Lymphadenopathy 06/06/2014 04/27/2017 Tinea versicolor 01/29/2011 09/24/2014 Post-inflammatory hyperpigmentation 01/29/2011 09/24/2014 Pruritus 01/29/2011 09/24/2014 Routine general medical exam ination at a health care facility 01/15/2011 08/09/2012 Overview: 01/15/2011, from Dr. Alicia Routine gynecological examination 01/15/2011 08/09/2012 [facility]: [facility] [place] Cellulitis 09/17/2009 04/27/2017 ABNORMAL XRAY ABDOMINAL 10/08/2008 09/24/20 14 NAUSEA 10/08/2008 08/09/2012 ABDOMINAL PAIN( Periumbilical) 10/08/2008 1 Fever and other physiologic disturbances of temperature regulation 07/04/2008 08/09/2012 PAIN ABDOMEN( Epigastric) 07/04/20082011 Unspecified gastritis and ga stroduodenitis without mention of hemorrhage 08/16/2006 04/27/2017 Allergic rhinitis, cause unspecified 08/16/2006 04/27/2017 documented as of this encounter (statuses as of 03/05/2022) [place]10-24-2018 History of Past illness Narrative* Problem Noted Date Resolved Date Chest pain 08/30/2018 08/30/2018 Overview: 2 days of L sided chest pain radiating to L arm and L neck. Similar in quality as in 2013 when she reportedly had elevated enzymes, positive stress test, and found to have coronary vasopasms on LHC. Hx of anxiety, significant social stressors. Stopped taking her BP meds 3 days ago due to feeling like her BP was low. - cycle CE - continue home medications - amlodipine, imdur - cardiology consult - tele Last Assessment & Plan: Assessment: Patient presented with L sided chest pain with radiation to the L arm and neck. Hx of CAD, had positive stress test in 2013 with subsequent LHC showing 50% stenosis of LAD and 40-50% stenosis of RCA Patient also notes hx of anxiety and recent stressors (father recently diagnosed with cancer, kicked out her drug addict boyfriend) Hx of polysubstance abuse, follows with pain management Dr. Tarango where she receives Vivitrol injections monthly Telemetry showed no acute events overnight HST negative in ED, additional troponin negative CXR unremarkable EKG shows NSR, no ischemic changes Urine tox screen positive for PCP, amphetamines, THC Chest pain free this morning PLAN: Patient remains hypotensive-possibly related to tox screen results Morning BP meds held, nitro patch removed IVF Cardiology consult Herpes simplex infection 03/18/2016 017 Lymphadenopathy 06/06/2014 04/27/2017 Tinea versicolor 01/29/2011 09/24/2014 Post-inflammatory hyperpigmentation 01/29/2011 09/24/2014 Pruritus 01/29/2011 09/24/2014 Routine general medical exam ination at a health care facility 01/15/2011 08/09/2012 Overview: 01/15/2011, from Dr. Alicia Routine gynecological examination 01/15/2011 08/09/2012 Overview: [facility], [facility] [place] Cellulitis 09/17/2009 04/27/2017 ABNORMAL XRAY ABDOMINAL 10/08/2008 09/24/20 14 NAUSEA 10/08/2008 08/09/2012 ABDOMINAL PAIN( Periumbilical) 10/08/2008 1 Fever and other physiologic disturbances of temperature regulation 07/04/2008 08/09/2012 PAIN ABDOMEN( Epigastric) 07/04/20082011 Unspecified gastritis and ga stroduodenitis without mention of hemorrhage 08/16/2006 04/27/2017 Allergic rhinitis, cause unspecified 08/16/2006 04/27/2017 documented as of this encounter (statuses as of 03/08/2022) [place]10-24-2018 History of Past illness Narrative* Problem Noted Date Resolved Date Chest pain 08/30/2018 08/30/2018 Overview: 2 days of L sided chest pain radiating to L arm and L neck. Similar in quality as in 2013 when she reportedly had elevated enzymes, positive stress test, and found to have coronary vasopasms on LHC. Hx of anxiety, significant social stressors. Stopped taking her BP meds 3 days ago due to feeling like her BP was low. - cycle CE - continue home medications - amlodipine, imdur - cardiology consult - tele Last Assessment & Plan: Assessment: Patient presented with L sided chest pain with radiation to the L arm and neck. Hx of CAD, had positive stress test in 2013 with subsequent LHC showing 50% stenosis of LAD and 40-50% stenosis of RCA Patient also notes hx of anxiety and recent stressors (father recently diagnosed with cancer, kicked out her drug addict boyfriend) Hx of polysubstance abuse, follows with pain management Dr. Tarango where she receives Vivitrol injections monthly Telemetry showed no acute events overnight HST negative in ED, additional troponin negative CXR unremarkable EKG shows NSR, no ischemic changes Urine tox screen positive for PCP, amphetamines, THC Chest pain free this morning PLAN: Patient remains hypotensive-possibly related to tox screen results Morning BP meds held, nitro patch removed IVF Cardiology consult Herpes simplex infection 03/18/2016 017 Lymphadenopathy 06/06/2014 04/27/2017 Tinea versicolor 01/29/2011 09/24/2014 Post-inflammatory hyperpigmentation 01/29/2011 09/24/2014 Pruritus 01/29/2011 09/24/2014 Routine general medical exam ination at a health care facility 01/15/2011 08/09/2012 Overview: 01/15/2011, from Dr. Alicia Routine gynecological examination 01/15/2011 08/09/2012 Overview: [facility], [facility] [place] Cellulitis 09/17/2009 04/27/2017 ABNORMAL XRAY ABDOMINAL 10/08/2008 09/24/20 14 NAUSEA 10/08/2008 08/09/2012 ABDOMINAL PAIN( Periumbilical) 10/08/2008 1 Fever and other physiologic disturbances of temperature regulation 07/04/2008 08/09/2012 PAIN ABDOMEN( Epigastric) 07/04/20082011 Unspecified gastritis and ga stroduodenitis without mention of hemorrhage 08/16/2006 04/27/2017 Allergic rhinitis, cause unspecified 08/16/2006 04/27/2017 documented as of this encounter (statuses as of 03/10/2022) [place]10-24-2018 History of Past illness Narrative* Problem Noted Date Resolved Date Chest pain 08/30/2018 08/30/2018 Overview: 2 days of L sided chest pain radiating to L arm and L neck. Similar in quality as in 2013 when she reportedly had elevated enzymes, positive stress test, and found to have coronary vasopasms on C. Hx of anxiety, significant social stressors. Stopped taking her BP meds 3 days ago due to feeling like her BP was low. - cycle CE - continue home medications - amlodipine, imdur - cardiology consult - tele Last Assessment & Plan: Assessment: Patient presented with L sided chest pain with radiation to the L arm and neck. Hx of CAD, had positive stress test in 2013 with subsequent LHC showing 50% stenosis of LAD and 40-50% stenosis of RCA Patient also notes hx of anxiety and recent stressors (father recently diagnosed with cancer, kicked out her drug addict boyfriend) Hx of polysubstance abuse, follows with pain management Dr. Tarango where she receives Vivitrol injections monthly Telemetry showed no acute events overnight HST negative in ED, additional troponin negative CXR unremarkable EKG shows NSR, no ischemic changes Urine tox screen positive for PCP, amphetamines, THC Chest pain free this morning PLAN: Patient remains hypotensive-possibly related to tox screen results Morning BP meds held, nitro patch removed IVF Cardiology consult Herpes simplex infection 03/18/2016 017 Lymphadenopathy 06/06/2014 04/27/2017 Tinea versicolor 01/29/2011 09/24/2014 Post-inflammatory hyperpigmentation 01/29/2011 09/24/2014 Pruritus 01/29/2011 09/24/2014 Routine general medical exam ination at a health care facility 01/15/2011 08/09/2012 Overview: 01/15/2011, from Dr. Alicia Routine gynecological examination 01/15/2011 08/09/2012 Overview: [facility], [facility] [place] Cellulitis 09/17/2009 04/27/2017 ABNORMAL XRAY ABDOMINAL 10/08/2008 09/24/20 14 NAUSEA 10/08/2008 08/09/2012 ABDOMINAL PAIN( Periumbilical) 10/08/2008 1 Fever and other physiologic disturbances of temperature regulation 07/04/2008 08/09/2012 PAIN ABDOMEN( Epigastric) 07/04/20082011 Unspecified gastritis and ga stroduodenitis without mention of hemorrhage 08/16/2006 04/27/2017 Allergic rhinitis, cause unspecified 08/16/2006 04/27/2017 documented as of this encounter (statuses as of 05/05/2022) [place]10-24-2018 History of Past illness Narrative* Problem Noted Date Resolved Date Chest pain 08/30/2018 08/30/2018 Overview: 2 days of L sided chest pain radiating to L arm and L neck. Similar in quality as in 2013 when she reportedly had elevated enzymes, positive stress test, and found to have coronary vasopasms on [facility]. Hx of anxiety, significant social stressors. Stopped taking her BP meds 3 days ago due to feeling like her BP was low. - cycle CE - continue home medications - amlodipine, imdur - cardiology consult - tele Last Assessment & Plan: Assessment: Patient presented with L sided chest pain with radiation to the L arm and neck. Hx of CAD, had positive stress test in 2013 with subsequent LHC showing 50% stenosis of LAD and 40-50% stenosis of RCA Patient also notes hx of anxiety and recent stressors (father recently diagnosed with cancer, kicked out her drug addict boyfriend) Hx of polysubstance abuse, follows with pain management Dr. Tarango where she receives Vivitrol injections monthly Telemetry showed no acute events overnight HST negative in ED, additional troponin negative CXR unremarkable EKG shows NSR, no ischemic changes Urine tox screen positive for PCP, amphetamines, THC Chest pain free this morning PLAN: Patient remains hypotensive-possibly related to tox screen results Morning BP meds held, nitro patch removed IVF Cardiology consult Herpes simplex infection 03/18/2016 017 Lymphadenopathy 06/06/2014 04/27/2017 Tinea versicolor 01/29/2011 09/24/2014 Post-inflammatory hyperpigmentation 01/29/2011 09/24/2014 Pruritus 01/29/2011 09/24/2014 Routine general medical exam ination at a health care facility 01/15/2011 08/09/2012 Overview: 01/15/2011, from Dr. Alicia Routine gynecological examination 01/15/2011 08/09/2012 Overview: [facility], [facility] [place] Cellulitis 09/17/2009 04/27/2017 ABNORMAL XRAY ABDOMINAL 10/08/2008 09/24/20 14 NAUSEA 10/08/2008 08/09/2012 ABDOMINAL PAIN( Periumbilical) 10/08/2008 1 Fever and other physiologic disturbances of temperature regulation 07/04/2008 08/09/2012 PAIN ABDOMEN( Epigastric) 07/04/20082011 Unspecified gastritis and ga stroduodenitis without mention of hemorrhage 08/16/2006 04/27/2017 Allergic rhinitis, cause unspecified 08/16/2006 04/27/2017 documented as of this encounter (statuses as of 05/10/2022) [place]10-24-2018 History of Past illness Narrative* Problem Noted Date Resolved Date Chest pain 08/30/2018 08/30/2018 Overview: 2 days of L sided chest pain radiating to L arm and L neck. Similar in quality as in 2013 when she reportedly had elevated enzymes, positive stress test, and found to have coronary vasopasms on LHC. Hx of anxiety, significant social stressors. Stopped taking her BP meds 3 days ago due to feeling like her BP was low. - cycle CE - continue home medications - amlodipine, imdur - cardiology consult - tele Last Assessment & Plan: Assessment: Patient presented with L sided chest pain with radiation to the L arm and neck. Hx of CAD, had positive stress test in 2013 with subsequent LHC showing 50% stenosis of LAD and 40-50% stenosis of RCA Patient also notes hx of anxiety and recent stressors (father recently diagnosed with cancer, kicked out her drug addict boyfriend) Hx of polysubstance abuse, follows with pain management Dr. Tarango where she receives Vivitrol injections monthly Telemetry showed no acute events overnight HST negative in ED, additional troponin negative CXR unremarkable EKG shows NSR, no ischemic changes Urine tox screen positive for PCP, amphetamines, THC Chest pain free this morning PLAN: Patient remains hypotensive-possibly related to tox screen results Morning BP meds held, nitro patch removed IVF Cardiology consult Herpes simplex infection 03/18/2016 017 Lymphadenopathy 06/06/2014 04/27/2017 Tinea versicolor 01/29/2011 09/24/2014 Post-inflammatory hyperpigmentation 01/29/2011 09/24/2014 Pruritus 01/29/2011 09/24/2014 Routine general medical exam ination at a health care facility 01/15/2011 08/09/2012 Overview: 01/15/2011, from Dr. Alicia Routine gynecological examination 01/15/2011 08/09/2012 Overview: [facility], [facility] [place] Cellulitis 09/17/2009 04/27/2017 ABNORMAL XRAY ABDOMINAL 10/08/2008 09/24/20 14 NAUSEA 10/08/2008 08/09/2012 ABDOMINAL PAIN( Periumbilical) 10/08/2008 1 Fever and other physiologic disturbances of temperature regulation 07/04/2008 08/09/2012 PAIN ABDOMEN( Epigastric) 07/04/20082011 Unspecified gastritis and ga stroduodenitis without mention of hemorrhage 08/16/2006 04/27/2017 Allergic rhinitis, cause unspecified 08/16/2006 04/27/2017 documented as of this encounter (statuses as of 06/07/2022) [place]10-24-2018 History of Past illness Narrative* Problem Noted Date Resolved Date Chest pain 08/30/2018 08/30/2018 Overview: 2 days of L sided chest pain radiating to L arm and L neck. Similar in quality as in 2013 when she reportedly had elevated enzymes, positive stress test, and found to have coronary vasopasms on LHC. Hx of anxiety, significant social stressors. Stopped taking her BP meds 3 days ago due to feeling like her BP was low. - cycle CE - continue home medications - amlodipine, imdur - cardiology consult - tele Last Assessment & Plan: Assessment: Patient presented with L sided chest pain with radiation to the L arm and neck. Hx of CAD, had positive stress test in 2013 with subsequent LHC showing 50% stenosis of LAD and 40-50% stenosis of RCA Patient also notes hx of anxiety and recent stressors (father recently diagnosed with cancer, kicked out her drug addict boyfriend) Hx of polysubstance abuse, follows with pain management Dr. Tarango where she receives Vivitrol injections monthly Telemetry showed no acute events overnight HST negative in ED, additional troponin negative CXR unremarkable EKG shows NSR, no ischemic changes Urine tox screen positive for PCP, amphetamines, THC Chest pain free this morning PLAN: Patient remains hypotensive-possibly related to tox screen results Morning BP meds held, nitro patch removed IVF Cardiology consult Herpes simplex infection 03/18/2016 017 Lymphadenopathy 06/06/2014 04/27/2017 Tinea versicolor 01/29/2011 09/24/2014 Post-inflammatory hyperpigmentation 01/29/2011 09/24/2014 Pruritus 01/29/2011 09/24/2014 Routine general medical exam ination at a health care facility 01/15/2011 08/09/2012 Overview: 01/15/2011, from Dr. Alicia Routine gynecological examination 01/15/2011 08/09/2012 Overview: [facility], [place] Cellulitis 09/17/2009 04/27/2017 ABNORMAL XRAY ABDOMINAL 10/08/2008 09/24/20 14 NAUSEA 10/08/2008 08/09/2012 ABDOMINAL PAIN( Periumbilical) 10/08/2008 1 Fever and other physiologic disturbances of temperature regulation 07/04/2008 08/09/2012 PAIN ABDOMEN( Epigastric) 07/04/20082011 Unspecified gastritis and ga stroduodenitis without mention of hemorrhage 08/16/2006 04/27/2017 Allergic rhinitis, cause unspecified 08/16/2006 04/27/2017 documented as of this encounter (statuses as of 08/10/2022) [place]10-24-2018 History of Past illness Narrative* Problem Noted Date Resolved Date Chest pain 08/30/2018 08/30/2018 Overview: 2 days of L sided chest pain radiating to L arm and L neck. Similar in quality as in 2013 when she reportedly had elevated enzymes, positive stress test, and found to have coronary vasopasms on C. Hx of anxiety, significant social stressors. Stopped taking her BP meds 3 days ago due to feeling like her BP was low. - cycle CE - continue home medications - amlodipine, imdur - cardiology consult - tele Last Assessment & Plan: Assessment: Patient presented with L sided chest pain with radiation to the L arm and neck. Hx of CAD, had positive stress test in 2013 with subsequent LHC showing 50% stenosis of LAD and 40-50% stenosis of RCA Patient also notes hx of anxiety and recent stressors (father recently diagnosed with cancer, kicked out her drug addict boyfriend) Hx of polysubstance abuse, follows with pain management Dr. Tarango where she receives Vivitrol injections monthly Telemetry showed no acute events overnight HST negative in ED, additional troponin negative CXR unremarkable EKG shows NSR, no ischemic changes Urine tox screen positive for PCP, amphetamines, THC Chest pain free this morning PLAN: Patient remains hypotensive-possibly related to tox screen results Morning BP meds held, nitro patch removed IVF Cardiology consult Herpes simplex infection 03/18/2016 017 Lymphadenopathy 06/06/2014 04/27/2017 Tinea versicolor 01/29/2011 09/24/2014 Post-inflammatory hyperpigmentation 01/29/2011 09/24/2014 Pruritus 01/29/2011 09/24/2014 Routine general medical exam ination at a health care facility 01/15/2011 08/09/2012 Overview: 01/15/2011, from Dr. Alicia Routine gynecological examination 01/15/2011 08/09/2012 Overview: [facility], [facility] [place] Cellulitis 09/17/2009 04/27/2017 ABNORMAL XRAY ABDOMINAL 10/08/2008 09/24/20 14 NAUSEA 10/08/2008 08/09/2012 ABDOMINAL PAIN( Periumbilical) 10/08/2008 1 Fever and other physiologic disturbances of temperature regulation 07/04/2008 08/09/2012 PAIN ABDOMEN( Epigastric) 07/04/20082011 Unspecified gastritis and ga stroduodenitis without mention of hemorrhage 08/16/2006 04/27/2017 Allergic rhinitis, cause unspecified 08/16/2006 04/27/2017 documented as of this encounter (statuses as of 10/08/2022) [place]10-24-2018 History of Past illness Narrative* Problem Noted Date Resolved Date Chest pain 08/30/2018 08/30/2018 Overview: 2 days of L sided chest pain radiating to L arm and L neck. Similar in quality as in 2013 when she reportedly had elevated enzymes, positive stress test, and found to have coronary vasopasms on [facility]. Hx of anxiety, significant social stressors. Stopped taking her BP meds 3 days ago due to feeling like her BP was low. - cycle CE - continue home medications - amlodipine, imdur - cardiology consult - tele Last Assessment & Plan: Assessment: Patient presented with L sided chest pain with radiation to the L arm and neck. Hx of CAD, had positive stress test in 2013 with subsequent LHC showing 50% stenosis of LAD and 40-50% stenosis of RCA Patient also notes hx of anxiety and recent stressors (father recently diagnosed with cancer, kicked out her drug addict boyfriend) Hx of polysubstance abuse, follows with pain management Dr. Tarango where she receives Vivitrol injections monthly Telemetry showed no acute events overnight HST negative in ED, additional troponin negative CXR unremarkable EKG shows NSR, no ischemic changes Urine tox screen positive for PCP, amphetamines, THC Chest pain free this morning PLAN: Patient remains hypotensive-possibly related to tox screen results Morning BP meds held, nitro patch removed IVF Cardiology consult Herpes simplex infection 03/18/2016 017 Lymphadenopathy 06/06/2014 04/27/2017 Tinea versicolor 01/29/2011 09/24/2014 Post-inflammatory hyperpigmentation 01/29/2011 09/24/2014 Pruritus 01/29/2011 09/24/2014 Routine general medical exam ination at a health care facility 01/15/2011 08/09/2012 Overview: 01/15/2011, from Dr. Alicia Routine gynecological examination 01/15/2011 08/09/2012 Overview: [facility], [facility] [place] Cellulitis 09/17/2009 04/27/2017 ABNORMAL XRAY ABDOMINAL 10/08/2008 09/24/20 14 NAUSEA 10/08/2008 08/09/2012 ABDOMINAL PAIN( Periumbilical) 10/08/2008 1 Fever and other physiologic disturbances of temperature regulation 07/04/2008 08/09/2012 PAIN ABDOMEN( Epigastric) 07/04/20082011 Unspecified gastritis and ga stroduodenitis without mention of hemorrhage 08/16/2006 04/27/2017 Allergic rhinitis, cause unspecified 08/16/2006 04/27/2017 documented as of this encounter (statuses as of 10/29/2022) [place]10-24-2018 History of Past illness Narrative* Problem Noted Date Resolved Date Chest pain 08/30/2018 08/30/2018 Overview: 2 days of L sided chest pain radiating to L arm and L neck. Similar in quality as in 2014 when she reportedly had elevated enzymes, positive stress test, and found to have coronary vasopasms on LHC. Hx of anxiety, significant social stressors. Stopped taking her BP meds 3 days ago due to feeling like her BP was low. - cycle CE - continue home medications - amlodipine, imdur - cardiology consult - tele Last Assessment & Plan: Assessment: Patient presented with L sided chest pain with radiation to the L arm and neck. Hx of CAD, had positive stress test in 2013 with subsequent LHC showing 50% stenosis of LAD and 40-50% stenosis of RCA Patient also notes hx of anxiety and recent stressors (father recently diagnosed with cancer, kicked out her drug addict boyfriend) Hx of polysubstance abuse, follows with pain management Dr. Tarango where she receives Vivitrol injections monthly Telemetry showed no acute events overnight HST negative in ED, additional troponin negative CXR unremarkable EKG shows NSR, no ischemic changes Urine tox screen positive for PCP, amphetamines, THC Chest pain free this morning PLAN: Patient remains hypotensive-possibly related to tox screen results Morning BP meds held, nitro patch removed IVF Cardiology consult Herpes simplex infection 03/18/2016 017 Lymphadenopathy 06/06/2014 04/27/2017 Tinea versicolor 01/29/2011 09/24/2014 Post-inflammatory hyperpigmentation 01/29/2011 09/24/2014 Pruritus 01/29/2011 09/24/2014 Routine general medical exam ination at a health care facility 01/15/2011 08/09/2012 Overview: 01/15/2011, from Dr. Alicia Routine gynecological examination 01/15/2011 08/09/2012 Overview: [facility], [facility] [place] Cellulitis 09/17/2009 04/27/2017 ABNORMAL XRAY ABDOMINAL 10/08/2008 09/24/20 14 NAUSEA 10/08/2008 08/09/2012 ABDOMINAL PAIN( Periumbilical) 10/08/2008 1 Fever and other physiologic disturbances of temperature regulation 07/04/2008 08/09/2012 PAIN ABDOMEN( Epigastric) 07/04/20082011 Unspecified gastritis and ga stroduodenitis without mention of hemorrhage 08/16/2006 04/27/2017 Allergic rhinitis, cause unspecified 08/16/2006 04/27/2017 documented as of this encounter (statuses as of 10/30/2022) [place]10-24-2018 History of Past illness Narrative* Problem Noted Date Resolved Date Chest pain 08/30/2018 08/30/2018 Overview: 2 days of L sided chest pain radiating to L arm and L neck. Similar in quality as in 2013 when she reportedly had elevated enzymes, positive stress test, and found to have coronary vasopasms on LHC. Hx of anxiety, significant social stressors. Stopped taking her BP meds 3 days ago due to feeling like her BP was low. - cycle CE - continue home medications - amlodipine, imdur - cardiology consult - tele Last Assessment & Plan: Assessment: Patient presented with L sided chest pain with radiation to the L arm and neck. Hx of CAD, had positive stress test in 2013 with subsequent LHC showing 50% stenosis of LAD and 40-50% stenosis of RCA Patient also notes hx of anxiety and recent stressors (father recently diagnosed with cancer, kicked out her drug addict boyfriend) Hx of polysubstance abuse, follows with pain management Dr. Tarango where she receives Vivitrol injections monthly Telemetry showed no acute events overnight HST negative in ED, additional troponin negative CXR unremarkable EKG shows NSR, no ischemic changes Urine tox screen positive for PCP, amphetamines, THC Chest pain free this morning PLAN: Patient remains hypotensive-possibly related to tox screen results Morning BP meds held, nitro patch removed IVF Cardiology consult Herpes simplex infection 03/18/2016 017 Lymphadenopathy 06/06/2014 04/27/2017 Tinea versicolor 01/29/2011 09/24/2014 Post-inflammatory hyperpigmentation 01/29/2011 09/24/2014 Pruritus 01/29/2011 09/24/2014 Routine general medical exam ination at a health care facility 01/15/2011 08/09/2012 Overview: 01/15/2011, from Dr. Alicia Routine gynecological examination 01/15/2011 08/09/2012 Overview: [facility] [place] Cellulitis 09/17/2009 04/27/2017 ABNORMAL XRAY ABDOMINAL 10/08/2008 09/24/20 14 NAUSEA 10/08/2008 08/09/2012 ABDOMINAL PAIN( Periumbilical) 10/08/2008 1 Fever and other physiologic disturbances of temperature regulation 07/04/2008 08/09/2012 PAIN ABDOMEN( Epigastric) 07/04/20082011 Unspecified gastritis and ga stroduodenitis without mention of hemorrhage 08/16/2006 04/27/2017 Allergic rhinitis, cause unspecified 08/16/2006 04/27/2017 documented as of this encounter (statuses as of 11/10/2022) [place]10-24-2018 History of Past illness Narrative* Problem Noted Date Resolved Date Chest pain 08/30/2018 08/30/2018 Overview: 2 days of L sided chest pain radiating to L arm and L neck. Similar in quality as in 2013 when she reportedly had elevated enzymes, positive stress test, and found to have coronary vasopasms on LHC. Hx of anxiety, significant social stressors. Stopped taking her BP meds 3 days ago due to feeling like her BP was low. - cycle CE - continue home medications - amlodipine, imdur - cardiology consult - tele Last Assessment & Plan: Assessment: Patient presented with L sided chest pain with radiation to the L arm and neck. Hx of CAD, had positive stress test in 2013 with subsequent LHC showing 50% stenosis of LAD and 40-50% stenosis of RCA Patient also notes hx of anxiety and recent stressors (father recently diagnosed with cancer, kicked out her drug addict boyfriend) Hx of polysubstance abuse, follows with pain management Dr. Tarango where she receives Vivitrol injections monthly Telemetry showed no acute events overnight HST negative in ED, additional troponin negative CXR unremarkable EKG shows NSR, no ischemic changes Urine tox screen positive for PCP, amphetamines, THC Chest pain free this morning PLAN: Patient remains hypotensive-possibly related to tox screen results Morning BP meds held, nitro patch removed IVF Cardiology consult Herpes simplex infection 03/18/2016 017 Lymphadenopathy 06/06/2014 04/27/2017 Tinea versicolor 01/29/2011 09/24/2014 Post-inflammatory hyperpigmentation 01/29/2011 09/24/2014 Pruritus 01/29/2011 09/24/2014 Routine general medical exam ination at a health care facility 01/15/2011 08/09/2012 Overview: 01/15/2011, from Dr. Alicia Routine gynecological examination 01/15/2011 08/09/2012 Overview: [facility], [facility] [place] Cellulitis 09/17/2009 04/27/2017 ABNORMAL XRAY ABDOMINAL 10/08/2008 09/24/20 14 NAUSEA 10/08/2008 08/09/2012 ABDOMINAL PAIN( Periumbilical) 10/08/2008 1 Fever and other physiologic disturbances of temperature regulation 07/04/2008 08/09/2012 PAIN ABDOMEN( Epigastric) 07/04/20082011 Unspecified gastritis and ga stroduodenitis without mention of hemorrhage 08/16/2006 04/27/2017 Allergic rhinitis, cause unspecified 08/16/2006 04/27/2017 documented as of this encounter (statuses as of 11/22/2022) [place]10-24-2018 History of Past illness Narrative* Problem Noted Date Resolved Date Chest pain 08/30/2018 08/30/2018 Overview: 2 days of L sided chest pain radiating to L arm and L neck. Similar in quality as in 2013 when she reportedly had elevated enzymes, positive stress test, and found to have coronary vasopasms on LHC. Hx of anxiety, significant social stressors. Stopped taking her BP meds 3 days ago due to feeling like her BP was low. - cycle CE - continue home medications - amlodipine, imdur - cardiology consult - tele Last Assessment & Plan: Assessment: Patient presented with L sided chest pain with radiation to the L arm and neck. Hx of CAD, had positive stress test in 2013 with subsequent LHC showing 50% stenosis of LAD and 40-50% stenosis of RCA Patient also notes hx of anxiety and recent stressors (father recently diagnosed with cancer, kicked out her drug addict boyfriend) Hx of polysubstance abuse, follows with pain management Dr. Tarango where she receives Vivitrol injections monthly Telemetry showed no acute events overnight HST negative in ED, additional troponin negative CXR unremarkable EKG shows NSR, no ischemic changes Urine tox screen positive for PCP, amphetamines, THC Chest pain free this morning PLAN: Patient remains hypotensive-possibly related to tox screen results Morning BP meds held, nitro patch removed IVF Cardiology consult Herpes simplex infection 03/18/2016 017 Lymphadenopathy 06/06/2014 04/27/2017 Tinea versicolor 01/29/2011 09/24/2014 Post-inflammatory hyperpigmentation 01/29/2011 09/24/2014 Pruritus 01/29/2011 09/24/2014 Routine general medical exam ination at a health care facility 01/15/2011 08/09/2012 Overview: 01/15/2011, from Dr. Alicia Routine gynecological examination 01/15/2011 08/09/2012 Overview: [facility], [facility] [place] Cellulitis 09/17/2009 04/27/2017 ABNORMAL XRAY ABDOMINAL 10/08/2008 09/24/20 14 NAUSEA 10/08/2008 08/09/2012 ABDOMINAL PAIN( Periumbilical) 10/08/2008 1 Fever and other physiologic disturbances of temperature regulation 07/04/2008 08/09/2012 PAIN ABDOMEN( Epigastric) 07/04/20082011 Unspecified gastritis and ga stroduodenitis without mention of hemorrhage 08/16/2006 04/27/2017 Allergic rhinitis, cause unspecified 08/16/2006 04/27/2017 documented as of this encounter (statuses as of 11/24/2022) [place]10-24-2018 History of Past illness Narrative* Problem Noted Date Resolved Date Chest pain 08/30/2018 08/30/2018 Overview: 2 days of L sided chest pain radiating to L arm and L neck. Similar in quality as in 2013 when she reportedly had elevated enzymes, positive stress test, and found to have coronary vasopasms on LHC. Hx of anxiety, significant social stressors. Stopped taking her BP meds 3 days ago due to feeling like her BP was low. - cycle CE - continue home medications - amlodipine, imdur - cardiology consult - tele Last Assessment & Plan: Assessment: Patient presented with L sided chest pain with radiation to the L arm and neck. Hx of CAD, had positive stress test in 2013 with subsequent LHC showing 50% stenosis of LAD and 40-50% stenosis of RCA Patient also notes hx of anxiety and recent stressors (father recently diagnosed with cancer, kicked out her drug addict boyfriend) Hx of polysubstance abuse, follows with pain management Dr. Tarango where she receives Vivitrol injections monthly Telemetry showed no acute events overnight HST negative in ED, additional troponin negative CXR unremarkable EKG shows NSR, no ischemic changes Urine tox screen positive for PCP, amphetamines, THC Chest pain free this morning PLAN: Patient remains hypotensive-possibly related to tox screen results Morning BP meds held, nitro patch removed IVF Cardiology consult Herpes simplex infection 03/18/2016 017 Lymphadenopathy 06/06/2014 04/27/2017 Tinea versicolor 01/29/2011 09/24/2014 Post-inflammatory hyperpigmentation 01/29/2011 09/24/2014 Pruritus 01/29/2011 09/24/2014 Routine general medical exam ination at a health care facility 01/15/2011 08/09/2012 Overview: 01/15/2011, from Dr. Alicia Routine gynecological examination 01/15/2011 08/09/2012 Overview: [facility], [facility] [place] Cellulitis 09/17/2009 04/27/2017 ABNORMAL XRAY ABDOMINAL 10/08/2008 09/24/20 14 NAUSEA 10/08/2008 08/09/2012 ABDOMINAL PAIN( Periumbilical) 10/08/2008 1 Fever and other physiologic disturbances of temperature regulation 07/04/2008 08/09/2012 PAIN ABDOMEN( Epigastric) 07/04/20082011 Unspecified gastritis and ga stroduodenitis without mention of hemorrhage 08/16/2006 04/27/2017 Allergic rhinitis, cause unspecified 08/16/2006 04/27/2017 documented as of this encounter (statuses as of 12/01/2022) [place]10-24-2018 History of Past illness Narrative* Problem Noted Date Resolved Date Chest pain 08/30/2018 08/30/2018 Overview: 2 days of L sided chest pain radiating to L arm and L neck. Similar in quality as in 2013 when she reportedly had elevated enzymes, positive stress test, and found to have coronary vasopasms on LHC. Hx of anxiety, significant social stressors. Stopped taking her BP meds 3 days ago due to feeling like her BP was low. - cycle CE - continue home medications - amlodipine, imdur - cardiology consult - tele Last Assessment & Plan: Assessment: Patient presented with L sided chest pain with radiation to the L arm and neck. Hx of CAD, had positive stress test in 2013 with subsequent LHC showing 50% stenosis of LAD and 40-50% stenosis of RCA Patient also notes hx of anxiety and recent stressors (father recently diagnosed with cancer, kicked out her drug addict boyfriend) Hx of polysubstance abuse, follows with pain management Dr. Tarango where she receives Vivitrol injections monthly Telemetry showed no acute events overnight HST negative in ED, additional troponin negative CXR unremarkable EKG shows NSR, no ischemic changes Urine tox screen positive for PCP, amphetamines, THC Chest pain free this morning PLAN: Patient remains hypotensive-possibly related to tox screen results Morning BP meds held, nitro patch removed IVF Cardiology consult Herpes simplex infection 03/18/2016 017 Lymphadenopathy 06/06/2014 04/27/2017 Tinea versicolor 01/29/2011 09/24/2014 Post-inflammatory hyperpigmentation 01/29/2011 09/24/2014 Pruritus 01/29/2011 09/24/2014 Routine general medical exam ination at a health care facility 01/15/2011 08/09/2012 Overview: 01/15/2011, from Dr. Alicia Routine gynecological examination 01/15/2011 08/09/2012 Overview: [facility] [place] Cellulitis 09/17/2009 04/27/2017 ABNORMAL XRAY ABDOMINAL 10/08/2008 09/24/20 14 NAUSEA 10/08/2008 08/09/2012 ABDOMINAL PAIN( Periumbilical) 10/08/2008 1 Fever and other physiologic disturbances of temperature regulation 07/04/2008 08/09/2012 PAIN ABDOMEN( Epigastric) 07/04/20082011 Unspecified gastritis and ga stroduodenitis without mention of hemorrhage 08/16/2006 04/27/2017 Allergic rhinitis, cause unspecified 08/16/2006 04/27/2017 documented as of this encounter (statuses as of 12/07/2022) [place]10-24-2018 History of Past illness Narrative* Problem Noted Date Resolved Date Chest pain 08/30/2018 08/30/2018 Overview: 2 days of L sided chest pain radiating to L arm and L neck. Similar in quality as in 2013 when she reportedly had elevated enzymes, positive stress test, and found to have coronary vasopasms on LHC. Hx of anxiety, significant social stressors. Stopped taking her BP meds 3 days ago due to feeling like her BP was low. - cycle CE - continue home medications - amlodipine, imdur - cardiology consult - tele Last Assessment & Plan: Assessment: Patient presented with L sided chest pain with radiation to the L arm and neck. Hx of CAD, had positive stress test in 2013 with subsequent LHC showing 50% stenosis of LAD and 40-50% stenosis of RCA Patient also notes hx of anxiety and recent stressors (father recently diagnosed with cancer, kicked out her drug addict boyfriend) Hx of polysubstance abuse, follows with pain management Dr. Tarango where she receives Vivitrol injections monthly Telemetry showed no acute events overnight HST negative in ED, additional troponin negative CXR unremarkable EKG shows NSR, no ischemic changes Urine tox screen positive for PCP, amphetamines, THC Chest pain free this morning PLAN: Patient remains hypotensive-possibly related to tox screen results Morning BP meds held, nitro patch removed IVF Cardiology consult Herpes simplex infection 03/18/2016 017 Lymphadenopathy 06/06/2014 04/27/2017 Tinea versicolor 01/29/2011 09/24/2014 Post-inflammatory hyperpigmentation 01/29/2011 09/24/2014 Pruritus 01/29/2011 09/24/2014 Routine general medical exam ination at a health care facility 01/15/2011 08/09/2012 Overview: 01/15/2011, from Dr. Alicia Routine gynecological examination 01/15/2011 08/09/2012 Overview: [facility], [facility] [place] Cellulitis 09/17/2009 04/27/2017 ABNORMAL XRAY ABDOMINAL 10/08/2008 09/24/20 14 NAUSEA 10/08/2008 08/09/2012 ABDOMINAL PAIN( Periumbilical) 10/08/2008 1 Fever and other physiologic disturbances of temperature regulation 07/04/2008 08/09/2012 PAIN ABDOMEN( Epigastric) 07/04/20082011 Unspecified gastritis and ga stroduodenitis without mention of hemorrhage 08/16/2006 04/27/2017 Allergic rhinitis, cause unspecified 08/16/2006 04/27/2017 documented as of this encounter (statuses as of 02/19/2023) [place]10-24-2018 History of Past illness Narrative* Problem Noted Date Diagnosed Date Resolved Date Chest pain 08/30/2018 08/30/2018 Overview: 2 days of L sided chest pain radiating to L arm and L neck. Similar in quality as in 2013 when she reportedly had elevated enzymes, positive stress test, and found to have coronary vasopasms on C. Hx of anxiety, significant social stressors. Stopped taking her BP meds 3 days ago due to feeling like her BP was low. - cycle CE - continue home medications - amlodipine, imdur - cardiology consult - tele Last Assessment & Plan: Assessment: Patient presented with L sided chest pain with radiation to the L arm and neck. Hx of CAD, had positive stress test in 2013 with subsequent LHC showing 50% stenosis of LAD and 40-50% stenosis of RCA Patient also notes hx of anxiety and recent stressors (father recently diagnosed with cancer, kicked out her drug addict boyfriend) Hx of polysubstance abuse, follows with pain management Dr. Tarango where she receives Vivitrol injections monthly Telemetry showed no acute events overnight HST negative in ED, additional troponin negative CXR unremarkable EKG shows NSR, no ischemic changes Urine tox screen positive for PCP, amphetamines, THC Chest pain free this morning PLAN: Patient remains hypotensive-possibly related to tox screen results Morning BP meds held, nitro patch removed IVF Cardiology consult Herpes simplex infection 03/18/2016 Lymphadenopathy 06/06/2014 04/27/2017 Tinea versicolor 01/29/2011 09/24/2014 Post-inflammatory hyperpigmentation 01/29/2011 09/24/2014 Pruritus 01/29/2011 09/24/2014 Routine general medical exam ination at a health care facility 01/15/2011 08/09/2012 Overview: 01/15/2011, from Dr. Alicia Routine gynecological examination 01/15/2011 08/09/2012 Overview: [facility], [facility] [place] Cellulitis 09/17/2009 04/27/2017 ABNORMAL XRAY ABDOMINAL 10/08/200809/07 NAUSEA 10/08/2008 08/09/2012 ABDOMINAL PAIN( Periumbilical) 10/08/2008 08/09/2012 Fever and other physiologic disturbances of temperature regulation 07/04/2008 08/09/2012 PAIN ABDOMEN( Epigastric) 07/04/2008 Unspecified gastritis and ga stroduodenitis without mention of hemorrhage 08/16/2006 04/27/2017 Allergic rhinitis, cause unspecified 08/16/2006 04/27/2017 documented as of this encounter (statuses as of 08/02/2023) [place]10-24-2018 History of Past illness Narrative* Problem Noted Date Diagnosed Date Resolved Date Chest pain 08/30/2018 08/30/2018 Overview: 2 days of L sided chest pain radiating to L arm and L neck. Similar in quality as in 2013 when she reportedly had elevated enzymes, positive stress test, and found to have coronary vasopasms on [facility]. Hx of anxiety, significant social stressors. Stopped taking her BP meds 3 days ago due to feeling like her BP was low. - cycle CE - continue home medications - amlodipine, imdur - cardiology consult - tele Last Assessment & Plan: Assessment: Patient presented with L sided chest pain with radiation to the L arm and neck. Hx of CAD, had positive stress test in 2013 with subsequent LHC showing 50% stenosis of LAD and 40-50% stenosis of RCA Patient also notes hx of anxiety and recent stressors (father recently diagnosed with cancer, kicked out her drug addict boyfriend) Hx of polysubstance abuse, follows with pain management Dr. Tarango where she receives Vivitrol injections monthly Telemetry showed no acute events overnight HST negative in ED, additional troponin negative CXR unremarkable EKG shows NSR, no ischemic changes Urine tox screen positive for PCP, amphetamines, THC Chest pain free this morning PLAN: Patient remains hypotensive-possibly related to tox screen results Morning BP meds held, nitro patch removed IVF Cardiology consult Herpes simplex infection 03/18/2016 Lymphadenopathy 06/06/2014 04/27/2017 Tinea versicolor 01/29/2011 09/24/2014 Post-inflammatory hyperpigmentation 01/29/2011 09/24/2014 Pruritus 01/29/2011 09/24/2014 Routine general medical exam ination at a health care facility 01/15/2011 08/09/2012 Overview: 01/15/2011, from Dr. Alicia Routine gynecological examination 01/15/2011 08/09/2012 Overview: [facility], [facility] [place] Cellulitis 09/17/2009 04/27/2017 ABNORMAL XRAY ABDOMINAL 10/08/200809/07 NAUSEA 10/08/2008 08/09/2012 ABDOMINAL PAIN( Periumbilical) 10/08/2008 08/09/2012 Fever and other physiologic disturbances of temperature regulation 07/04/2008 08/09/2012 PAIN ABDOMEN( Epigastric) 07/04/2008 Unspecified gastritis and ga stroduodenitis without mention of hemorrhage 08/16/2006 04/27/2017 Allergic rhinitis, cause unspecified 08/16/2006 04/27/2017 documented as of this encounter (statuses as of 08/05/2023) [place]10-24-2018 History of Past illness Narrative* Problem Noted Date Diagnosed Date Resolved Date Chest pain 08/30/2018 08/30/2018 Overview: 2 days of L sided chest pain radiating to L arm and L neck. Similar in quality as in 2013 when she reportedly had elevated enzymes, positive stress test, and found to have coronary vasopasms on [facility]. Hx of anxiety, significant social stressors. Stopped taking her BP meds 3 days ago due to feeling like her BP was low. - cycle CE - continue home medications - amlodipine, imdur - cardiology consult - tele Last Assessment & Plan: Assessment: Patient presented with L sided chest pain with radiation to the L arm and neck. Hx of CAD, had positive stress test in 2013 with subsequent LHC showing 50% stenosis of LAD and 40-50% stenosis of RCA Patient also notes hx of anxiety and recent stressors (father recently diagnosed with cancer, kicked out her drug addict boyfriend) Hx of polysubstance abuse, follows with pain management Dr. Tarango where she receives Vivitrol injections monthly Telemetry showed no acute events overnight HST negative in ED, additional troponin negative CXR unremarkable EKG shows NSR, no ischemic changes Urine tox screen positive for PCP, amphetamines, THC Chest pain free this morning PLAN: Patient remains hypotensive-possibly related to tox screen results Morning BP meds held, nitro patch removed IVF Cardiology consult Herpes simplex infection 03/18/2016 Lymphadenopathy 06/06/2014 04/27/2017 Tinea versicolor 01/29/2011 09/24/2014 Post-inflammatory hyperpigmentation 01/29/2011 09/24/2014 Pruritus 01/29/2011 09/24/2014 Routine general medical exam ination at a health care facility 01/15/2011 08/09/2012 Overview: 01/15/2011, from Dr. Alicia Routine gynecological examination 01/15/2011 08/09/2012 Overview: [facility], [facility] [place] Cellulitis 09/17/2009 04/27/2017 ABNORMAL XRAY ABDOMINAL 10/08/200809/07 NAUSEA 10/08/2008 08/09/2012 ABDOMINAL PAIN( Periumbilical) 10/08/2008 08/09/2012 Fever and other physiologic disturbances of temperature regulation 07/04/2008 08/09/2012 PAIN ABDOMEN( Epigastric) 07/04/2008 Unspecified gastritis and ga stroduodenitis without mention of hemorrhage 08/16/2006 04/27/2017 Allergic rhinitis, cause unspecified 08/16/2006 04/27/2017 documented as of this encounter (statuses as of 09/11/2023) [place]10-24-2018 History of Past illness Narrative* Problem Noted Date Diagnosed Date Resolved Date Chest pain 08/30/2018 08/30/2018 Overview: 2 days of L sided chest pain radiating to L arm and L neck. Similar in quality as in 2013 when she reportedly had elevated enzymes, positive stress test, and found to have coronary vasopasms on LHC. Hx of anxiety, significant social stressors. Stopped taking her BP meds 3 days ago due to feeling like her BP was low. - cycle CE - continue home medications - amlodipine, imdur - cardiology consult - tele Last Assessment & Plan: Assessment: Patient presented with L sided chest pain with radiation to the L arm and neck. Hx of CAD, had positive stress test in 2013 with subsequent LHC showing 50% stenosis of LAD and 40-50% stenosis of RCA Patient also notes hx of anxiety and recent stressors (father recently diagnosed with cancer, kicked out her drug addict boyfriend) Hx of polysubstance abuse, follows with pain management Dr. Tarango where she receives Vivitrol injections monthly Telemetry showed no acute events overnight HST negative in ED, additional troponin negative CXR unremarkable EKG shows NSR, no ischemic changes Urine tox screen positive for PCP, amphetamines, THC Chest pain free this morning PLAN: Patient remains hypotensive-possibly related to tox screen results Morning BP meds held, nitro patch removed IVF Cardiology consult Herpes simplex infection 03/18/2016 Lymphadenopathy 06/06/2014 04/27/2017 Tinea versicolor 01/29/2011 09/24/2014 Post-inflammatory hyperpigmentation 01/29/2011 09/24/2014 Pruritus 01/29/2011 09/24/2014 Routine general medical exam ination at a health care facility 01/15/2011 08/09/2012 Overview: 01/15/2011, from Dr. Alicia Routine gynecological examination 01/15/2011 08/09/2012 Overview: [facility], [facility] [place] Cellulitis 09/17/2009 04/27/2017 ABNORMAL XRAY ABDOMINAL 10/08/200809/07 NAUSEA 10/08/2008 08/09/2012 ABDOMINAL PAIN( Periumbilical) 10/08/2008 08/09/2012 Fever and other physiologic disturbances of temperature regulation 07/04/2008 08/09/2012 PAIN ABDOMEN( Epigastric) 07/04/2008 Unspecified gastritis and ga stroduodenitis without mention of hemorrhage 08/16/2006 04/27/2017 Allergic rhinitis, cause unspecified 08/16/2006 04/27/2017 documented as of this encounter (statuses as of 12/09/2023) [place]10-24-2018 History of Past illness Narrative* Problem Noted Date Diagnosed Date Resolved Date Chest pain 08/30/2018 08/30/2018 Overview: 2 days of L sided chest pain radiating to L arm and L neck. Similar in quality as in 2013 when she reportedly had elevated enzymes, positive stress test, and found to have coronary vasopasms on [facility]. Hx of anxiety, significant social stressors. Stopped taking her BP meds 3 days ago due to feeling like her BP was low. - cycle CE - continue home medications - amlodipine, imdur - cardiology consult - tele Last Assessment & Plan: Assessment: Patient presented with L sided chest pain with radiation to the L arm and neck. Hx of CAD, had positive stress test in 2013 with subsequent LHC showing 50% stenosis of LAD and 40-50% stenosis of RCA Patient also notes hx of anxiety and recent stressors (father recently diagnosed with cancer, kicked out her drug addict boyfriend) Hx of polysubstance abuse, follows with pain management Dr. Tarango where she receives Vivitrol injections monthly Telemetry showed no acute events overnight HST negative in ED, additional troponin negative CXR unremarkable EKG shows NSR, no ischemic changes Urine tox screen positive for PCP, amphetamines, THC Chest pain free this morning PLAN: Patient remains hypotensive-possibly related to tox screen results Morning BP meds held, nitro patch removed IVF Cardiology consult Herpes simplex infection 03/18/2016 Lymphadenopathy 06/06/2014 04/27/2017 Tinea versicolor 01/29/2011 09/24/2014 Post-inflammatory hyperpigmentation 01/29/2011 09/24/2014 Pruritus 01/29/2011 09/24/2014 Routine general medical exam ination at a health care facility 01/15/2011 08/09/2012 Overview: 01/15/2011, from Dr. Alicia Routine gynecological examination 01/15/2011 08/09/2012 Overview: [facility], [facility] Cellulitis 09/17/2009 04/27/2017 ABNORMAL XRAY ABDOMINAL 10/08/200809/07 NAUSEA 10/08/2008 08/09/2012 ABDOMINAL PAIN( Periumbilical) 10/08/2008 08/09/2012 Fever and other physiologic disturbances of temperature regulation 07/04/2008 08/09/2012 PAIN ABDOMEN( Epigastric) 07/04/2008 Unspecified gastritis and ga stroduodenitis without mention of hemorrhage 08/16/2006 04/27/2017 Allergic rhinitis, cause unspecified 08/16/2006 04/27/2017 documented as of this encounter (statuses as of 12/19/2023) [place] Author Ej Luther [facility] August 01, 2023 12:05pm Note Date/Time August 01, 2023 10:39am [facility] Medical Records Department [address] [place] [address] Emergency Department Summary 08/01/23 MR#: [id number] Acct: [id number] Name: BEV WEBB Rep #:[id number] : 1975 48 From: Ej Luther MD PCP: Dr. Martinez Garcia MD Status:REG E R Location: ED HPI History of Present Illness Chief Complaint: Dizziness Narrative Narrative: 48-year-old female past medical history of coronary artery disease, hypertension, but not on medication currently presents with generalized weaknessand lightheadedness that she has had for the last few days. She had a regular menses over the last few months to a year. She states she had vaginal bleeding starting on Tuesday. The following day she felt lightheaded and near syncopal. She denies vertiginous type symptoms. While her vaginal bleeding hasimproved, and almost ceased, she still feels lightheaded and weak. She was toldby her [employer] UP PERSON to come to the emergency department to help rule out ectopic . She denies any pelvic pain however. Her main concern is that she islightheaded and tired, and she has been passing a large amount of large clots over the last few days. Her lightheadedness is not necessarily worse with standing or walking. She denies any chest pain or shortness of breath. [facility] Medical History Arthritis Atherosclerotic heart disease of [place] coronary artery without angina pectoris Essential (primary) hypertension Heart disease Hemorrhoids Lung disease Shoulder pain Stomach ulcer Home Medications pantoprazole 40 mg tablet,delayed release 40 mg PO BID gerd 04/09/14 [History Last Taken 06/14/23] atorvastatin 40 mg tablet 40 mg PO DAILY cholesterol 03/28/19 [History Last Taken 06/17/20] cetirizine 10 mg tablet 10 mg PO DAILY allergies 04/14/20 [History Last Taken 06/14/23] buspirone 15 mg tablet 15 mg PO TID anxiety 06/17/20 [History Last Taken 06/14/23] gabapentin 400 mg capsule 400 mg PO TID nerve pain 06/17/20 [History Last Taken 06/17/20] venlafaxine 150 mg tablet,extended release 24 hr 150 mg PO DAILY depression 06/17/20 [History Last Taken 06/14/23] aspirin 81 mg tablet,delayed release 81 mg PO DAILY@0800 #30 tabs 03/16/21 [Rx Last Taken 06/13/23 21:56] Allergy/AdvReac Type Severity Reaction Status Date / Time doxycycline Allergy Unknown Verified 08/01/23 10:06 erythromycin base Allergy Chest Verified 08/01/23 10:06 [Erythromycin Base] tightness Penicillins Allergy Unknown Verified 08/01/23 10:06 tramadol HCl [From Ultram] Allergy Swelling Verified 08/01/23 10:06 cefdinir [From Omnicef] AdvReac Other Verified 08/01/23 10:06 risperidone [From Risperdal] AdvReac Unknown Verified 08/01/23 10:06 valacyclovir HCl AdvReac Nausea Verified 08/01/23 10:06 [From Valtrex] Family History Other Arthritis Cancer Diabetes Heart disease Stomach ulcer Surgical History History of ankle surgery History of left heart catheterization (03/16/21) Hx of appendectomy Social History Smoking Status: Current every day smoker tobacco type: cigarettes ROS ROS ED ROS Narrative Constitutional: No fever, no chills. Generalized weakness, fatigue. Feels tired. HEENT: No sore throat. No neck pain. No loss of vision. No rhinorrhea. Cardiovascular: No chest pain. No palpitations. No pedal edema. Respiratory: No cough, no shortness of breath. Abdominal: No abdominal pain. No nausea. No vomiting. Genitourinary: No dysuria. No hematuria. Vaginal bleeding, passing large clots, improved, and essentially finished. Musculoskeletal: No myalgias. No arthralgias. Neurologic: No headaches. No dizziness. Positive lightheadedness and near syncope. Skin: No rash. No change in color. Psychiatric: No depression. No anxiety. EXAM Physical Exam Narrative Exam Narrative: Afebrile. Vital signs noted. HEENT: Normocephalic. Atraumatic. PERRL, EOMI. Neck soft and supple. No pointtenderness or step off. Cardiovascular: Regular rate and rhythm. No murmurs, rubs, or gallops appreciated. Respiratory: No tachypnea. Lungs clear to auscultation bilaterally. Gastrointestinal: Abdomen soft, nontender, with normoactive bowel sounds. No rebound or guarding. Neurological: Awake. Alert. Nonfocal, nonlateralizing. Skin: No rash. Normal color. No pallor. Musculoskeletal: No pedal edema. Full range of motion extremities. Const Vital Signs: 08/01/23 10:07 08/01/23 11:09 Temperature 97.9 F Temperature Source Oral Pulse Rate 100 Pulse Rate [Lying] 78 Pulse Rate [Sitting (for 1 minute prior to obtaining)] 78 Pulse Rate [Standing (for 1 minute prior to obtaining)] 83 Respiratory Rate 14 Blood Pressure 146/104 H Blood Pressure [Lying] 135/74 H Blood Pressure [Sitting (for 1 minute prior to obtaining)] 136/84 H Blood Pressure [Standing (for 1 minute prior to obtaining)] 149/80 H Blood Pressure Mean 118 Blood Pressure Mean [Lying] 94 Blood Pressure Mean [Sitting (for 1 minute prior to obtaining)] 101 Blood Pressure Mean [Standing (for 1 minute prior to obtaining)] 103 Pulse Ox 100 Oxygen Delivery Method Room Air MDM MDM MDM Narrative Medical decision making narrative: Patient has not pallor on exam or tachycardic. She is at that borderline. She may be anemic from vaginal bleeding. I will check a CBC to make sure that she does not require transfusion. Also in the differential given her irregular menses and heavy bleeding that was reported, serum will be obtained torule out ectopic . I do not feel emergent ultrasound is indicated at this time. Does not sound as if she is orthostatic but she will be bolused normal saline 1 L intravenously. I will check a urinalysis and a BMP as well. I do not feel any imaging is indicated right now. Given her history of coronaryartery disease, EKG and troponin will be obtained. I reviewed her laboratory work, she has slightly elevated white count 13.1 whichI think is nonspecific, hemoglobin stable at 11.3 with hematocrit 36.3, no profound anemia requiring transfusion. Platelet count is normal at 436. Her electrolyte panel shows chloride slightly elevated at 108 but a normal sodium of139 and potassium normal at 3.8. Glucose is appropriately elevated at 87 with anormal anion gap of 5. Single high-sensitivity troponin is normal at 7. This has been ongoing for days, and I do not feel that she requires a serial enzyme. EKG obtained and interpreted by myself independently as normal sinus rhythm at 80 bpm without ectopy or acute ST changes. No STEMI. Urinalysis is negative for infection, while there is occult blood, I do feel this may be more of a contaminant as she states she is having menstrual cramping and vaginal bleeding. However, there are no WBCs or RBCs/within normal limits on her microscopic analysis. I do not feel antibiotics are indicated. Serum is negative, hence ruling out ectopic . At this point in time, I do feel she can be discharged safely home with follow- up to her [employer] PERSON as scheduled. She was given Toradol 15 mg intravenously prior to discharge for her menstrual cramping. I do not feel she requires admission at this time. Return instructions to the emergency department were reviewed. Disposition is discharged home in stable condition. History & Record Review Discussion w/independent historian: Patient Additional record(s) reviewed:: Prior ED visit and Prior labs Lab Data Attestation: I reviewed the patient's lab results. Labs: Laboratory Results - last 24 hr 08/01/23 10:45 WBC 13.1 H RBC 4.33 Hgb 11.3 L Hct 36.3 L MCV 83.8 MCH 26.1 L MCHC 31.1 L RDW Std Deviation 52.3 H RDW Coeff of Clark 17.1 H Plt Count 436 MPV 9.1 Immature Gran % (Auto) 0.200 Neut % (Auto) 65.1 Lymph % (Auto) 21.4 Mitchell % (Auto) 7.7 Eos % (Auto) 4.5 Baso % (Auto) 1.1 H Absolute Neuts (auto) 8.5 H Absolute Lymphs (auto) 2.80 Nucleated RBC % 0 Sodium 139 Potassium 3.8 Chloride 108 H Carbon Dioxide 26.0 Anion Gap 5 BUN 12 Creatinine 0.78 Estim Creat Clear Calc 73.76 Est GFR (MDRD) Af Amer 102 Est GFR (MDRD) Non-Af 84 BUN/Creatinine Ratio 15.4 Glucose 87 Calcium 8.9 Troponin I High Sens 7 Serum , Qual NEGATIVE Urine Color Yellow Urine Clarity Clear Urine pH 6.5 Ur Specific Winters 1.010 Urine Protein Negative Urine Glucose (UA) Normal Urine Ketones Negative Urine Occult Blood 150 H Urine Nitrite Negative Urine Bilirubin Negative Urine Urobilinogen Normal Ur Leukocyte Esterase Negative Urine RBC 0 SEEN Urine WBC 0 SEEN Ur Squamous Epith Cells 0-5 SEEN Urine Bacteria 0 SEEN Urine Mucus 0 SEEN Discharge Plan Triage Chief Complaint: Dizziness ED Provider: Ej Luther Dx/Rx/DC Orders Clinical Impression: Generalized weakness, Menstrual cramps, Near syncope Instructions: ED MENSTRUAL CRAMPING, ED Near-Fainting, Uncertain Cause, ED Weakness (Uncertain Cause) Prescriptions: No Action pantoprazole 40 MG tablet 40 mg PO BID Patient Comments: ACID REFLUX/GERD atorvastatin 40 MG tablet 40 mg PO DAILY cetirizine 10 MG tablet 10 mg PO DAILY gabapentin 400 MG capsule 400 mg PO TID buspirone 15 MG tablet 15 mg PO TID venlafaxine 150 MG tablet extended release 24hr 150 mg PO DAILY aspirin 81 mg Tablet,Delayed Release (Dr/Ec) 81 mg PO DAILY@0800 Qty: 30 0RF Primary Care Provider: Martinez Garcia Referrals: Martinez Garcia MD [Primary Care Provider] - As soon as possible Activity Restrictions/Additional Instructions: Follow-up with your [employer] PERSON as scheduled. Disposition Disposition: Home, Self Care What to do if you have Problems For any increased pain, shortness of breath, bleeding, nausea or vomiting, chestpain, or any unexpected problems, contact your Primary Care Provider. Call [facility] ([phone]) or report to the closest Emergency Room. Call 911 if necessary. 08/01/23 1205 <Electronically signed by Ej Luther MD> Cosigner Signature (if applicable): CC: Dr. Martinez Garcia MD ~ Signed [facility] Work Phone: Evaluation note* Diagnosis Fatigue, unspecified type- Primary Leukocytosis, unspecified type Hypokalemia Hypopotassemia Primary hypertension Unspecified essential hypertension Hyperlipidemia, unspecified hyperlipidemia type Gastroesophageal reflux disease, unspecified whether esophagitis present documented in this encounter [facility] note* Diagnosis Leukocytosis, unspecified type- Primary Hypokalemia Hypopotassemia Hypomagnesemia Disorders of magnesium metabolism Abnormal urinalysis Other nonspecific finding on examination of urine documented in this encounter [place]* Diagnosis Left elbow pain- Primary Pain in joint, upper arm Numbness of fingers Disturbance of skin sensation [facility] Diagnosis Adjustment disorder with anxiety Grief reaction with prolonged bereavement documented in this encounter [place]* Diagnosis Left elbow pain- Primary Pain in joint, upper arm Skin sensation disturbance Disturbance of skin sensation [facility] Diagnosis Left elbow pain Pain in joint, upper arm Skin sensation disturbance Disturbance of skin sensation Carpal tunnel syndrome, left upper limb Pain in left arm [facility]* Diagnosis Anemia, unspecified type- Primary documented in this encounter [facility] noteNo assessment information availableWBerger [facility] Work Phone: Evaluation note* Diagnosis Encounter for screening mammogram for breast cancer documented in this encounter [facility] note* Diagnosis Coronary artery disease involving [place] coronary artery of [place] heart without angina pectoris- Primary Primary hypertension Unspecified essential hypertension Hyperlipidemia, unspecified hyperlipidemia type Palpitations Tobacco use disorder, continuous Tobacco use disorder CARDOZA (dyspnea on exertion) Other dyspnea and respiratory abnormality documented in this encounter [facility] note* Diagnosis Sinus congestion- Primary Other diseases of nasal cavity and sinuses Acute cough documented in this encounter [facility] note* Diagnosis Syncope, unspecified syncope type- Primary documented in this encounter [facility] note* Diagnosis Carpal tunnel syndrome, left Carpal tunnel syndrome Carpal tunnel syndrome on left Carpal tunnel syndrome documented in this encounter [facility] note* Diagnosis Carpal tunnel syndrome on left- Primary Carpal tunnel syndrome Carpal tunnel syndrome on left Carpal tunnel syndrome [facility]* Diagnosis Leukocytosis, unspecified type- Primary documented in this encounter [facility] note* Diagnosis Carpal tunnel syndrome of left wrist- Primary Carpal tunnel syndrome documented in this encounter [facility] note* Diagnosis Infection of hand- Primary Unspecified local infection of skin and subcutaneous tissue documented in this encounter [facility] note* Diagnosis Adjustment disorder with anxiety Grief reaction with prolonged bereavement documented in this encounter [facility] note* Diagnosis Adjustment disorder with anxiety Grief reaction with prolonged bereavement [facility]* Diagnosis Dysmenorrhea- Primary Menorrhagia, premenopausal Premenopausal menorrhagia Pelvic pain in female Unspecified symptom associated with female genital organs documented in this encounter [facility] note* Diagnosis Dysmenorrhea Menorrhagia, premenopausal Premenopausal menorrhagia documented [facility]* Diagnosis Pain in both lower legs- Primary Discoloration of skin of lower leg Dyschromia, unspecified documented in this encounter [facility] note* Diagnosis Adjustment disorder with anxiety Grief reaction with prolonged bereavement documented in this encounter [facility] note* Diagnosis Adjustment disorder with anxiety Grief reaction with prolonged bereavement documented in this encounter [facility] note* Diagnosis Encounter for screening mammogram for breast cancer documented in this encounter [facility] note* Diagnosis 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)- Primary Mixed hyperlipidemia Primary hypertension Unspecified essential hypertension Raynaud's phenomenon without gangrene Centrilobular emphysema (HCC) Other emphysema COPD with chronic bronchitis (HCC) Obstructive chronic bronchitis without exacerbation Mild intermittent asthma with acute exacerbation Unspecified asthma, with exacerbation Subcutaneous emphysema resulting from a procedure, sequela Tobacco use disorder Marijuana use Cannabis abuse, unspecified Polysubstance abuse (HCC) Other, mixed, or unspecified nondependent drug abuse, unspecified Gastroesophageal reflux disease, unspecified whether esophagitis present PUD (peptic ulcer disease) Peptic ulcer, unspecified site, unspecified as acute or chronic, without mention of hemorrhage, perforation, or obstruction Moderate major depression (HCC) Major depressive disorder, single episode, moderate Anxiety state Anxiety state, unspecified Simple endometrial hyperplasia without atypia Normocytic anemia Anemia, unspecified Dysmenorrhea Metrorrhagia documented in this encounter [facility] note* Diagnosis Adjustment disorder with anxiety Grief reaction with prolonged bereavement documented in this encounter [facility] note* Diagnosis Chest pain, unspecified type- Primary Dyspnea, unspecified type Hypokalemia Hypopotassemia Leukocytosis, unspecified type Chest pain Chest pain, unspecified Tobacco use disorder Polysubstance abuse (HCC) Other, mixed, or unspecified nondependent drug abuse, unspecified Pre-operative examination- Primary Preoperative examination, unspecified Coronary artery disease involving lower [place] heart without angina pectoris, unspecified vessel or lesion type Gastroesophageal reflux disease, unspecified whether esophagitis present Anxiety state Anxiety state, unspecified Polysubstance abuse (HCC) Other, mixed, or unspecified nondependent drug abuse, unspecified Hyperlipidemia, unspecified hyperlipidemia type Tobacco use disorder Subcutaneous emphysema resulting from a procedure, sequela Primary hypertension Unspecified essential hypertension Adjustment disorder with anxiety Grief reaction with prolonged bereavement documented in this encounter [facility] note* Diagnosis Chest pain, unspecified type- Primary Dyspnea, unspecified type Hypokalemia Hypopotassemia Leukocytosis, unspecified type Chest pain Chest pain, unspecified Tobacco use disorder Hyperlipidemia Other and unspecified hyperlipidemia Polysubstance abuse (HCC) Other, mixed, or unspecified nondependent drug abuse, unspecified Hypertension Unspecified essential hypertension Left elbow pain Pain in joint, upper arm Pre-operative examination- Primary Preoperative examination, unspecified Coronary artery disease involving lower [place] heart without angina pectoris, unspecified vessel or lesion type Gastroesophageal reflux disease, unspecified whether esophagitis present Anxiety state Anxiety state, unspecified Polysubstance abuse (HCC) Other, mixed, or unspecified nondependent drug abuse, unspecified Hyperlipidemia, unspecified hyperlipidemia type Tobacco use disorder Subcutaneous emphysema resulting from a procedure, sequela Primary hypertension Unspecified essential hypertension documented in this encounter [facility] note* Diagnosis Chest pain, unspecified type- Primary Dyspnea, unspecified type Hypokalemia Hypopotassemia Leukocytosis, unspecified type Chest pain Chest pain, unspecified Tobacco use disorder Hyperlipidemia Other and unspecified hyperlipidemia Polysubstance abuse (HCC) Other, mixed, or unspecified nondependent drug abuse, unspecified Hypertension Unspecified essential hypertension Cough Pre-operative examination- Primary Preoperative examination, unspecified Coronary artery disease involving lower [place] heart without angina pectoris, unspecified vessel or lesion type Gastroesophageal reflux disease, unspecified whether esophagitis present Anxiety state Anxiety state, unspecified Polysubstance abuse (HCC) Other, mixed, or unspecified nondependent drug abuse, unspecified Hyperlipidemia, unspecified hyperlipidemia type Tobacco use disorder Subcutaneous emphysema resulting from a procedure, sequela Primary hypertension Unspecified essential hypertension documented in this encounter [facility] note* Diagnosis Chest pain, unspecified type- Primary Dyspnea, unspecified type Hypokalemia Hypopotassemia Leukocytosis, unspecified type Chest pain Chest pain, unspecified Tobacco use disorder Polysubstance abuse (HCC) Other, mixed, or unspecified nondependent drug abuse, unspecified Pre-operative examination- Primary Preoperative examination, unspecified Coronary artery disease involving lower [place] heart without angina pectoris, unspecified vessel or lesion type Gastroesophageal reflux disease, unspecified whether esophagitis present Anxiety state Anxiety state, unspecified Polysubstance abuse (HCC) Other, mixed, or unspecified nondependent drug abuse, unspecified Hyperlipidemia, unspecified hyperlipidemia type Tobacco use disorder Subcutaneous emphysema resulting from a procedure, sequela Primary hypertension Unspecified essential hypertension Adjustment disorder with anxiety Grief reaction with prolonged bereavement [facility]* Diagnosis Chest pain, unspecified type- Primary Dyspnea, unspecified type Hypokalemia Hypopotassemia Leukocytosis, unspecified type Chest pain Chest pain, unspecified Tobacco use disorder Polysubstance abuse (HCC) Other, mixed, or unspecified nondependent drug abuse, unspecified Pre-operative examination- Primary Preoperative examination, unspecified Coronary artery disease involving lower [place] heart without angina pectoris, unspecified vessel or lesion type Gastroesophageal reflux disease, unspecified whether esophagitis present Anxiety state Anxiety state, unspecified Polysubstance abuse (HCC) Other, mixed, or unspecified nondependent drug abuse, unspecified Hyperlipidemia, unspecified hyperlipidemia type Tobacco use disorder Subcutaneous emphysema resulting from a procedure, sequela Primary hypertension Unspecified essential hypertension Acute otitis media, unspecified otitis media type- Primary COPD with exacerbation (HCC) Obstructive chronic bronchitis with exacerbation documented in this encounter [facility] note* Diagnosis Chest pain, unspecified type- Primary Dyspnea, unspecified type Hypokalemia Hypopotassemia Leukocytosis, unspecified type Chest pain Chest pain, unspecified Tobacco use disorder Polysubstance abuse (HCC) Other, mixed, or unspecified nondependent drug abuse, unspecified Pre-operative examination- Primary Preoperative examination, unspecified Coronary artery disease involving lower [place] heart without angina pectoris, unspecified vessel or lesion type Gastroesophageal reflux disease, unspecified whether esophagitis present Anxiety state Anxiety state, unspecified Polysubstance abuse (HCC) Other, mixed, or unspecified nondependent drug abuse, unspecified Hyperlipidemia, unspecified hyperlipidemia type Tobacco use disorder Subcutaneous emphysema resulting from a procedure, sequela Primary hypertension Unspecified essential hypertension Chronic low back pain with sciatica, sciatica laterality unspecified, unspecified back pain laterality- Primary Respiratory infection Other diseases of respiratory system, not elsewhere classified Hypomagnesemia Disorders of magnesium metabolism documented in this encounter [facility] note* Diagnosis Chest pain, unspecified type- Primary Dyspnea, unspecified type Hypokalemia Hypopotassemia Leukocytosis, unspecified type Chest pain Chest pain, unspecified Tobacco use disorder Polysubstance abuse (HCC) Other, mixed, or unspecified nondependent drug abuse, unspecified Pre-operative examination- Primary Preoperative examination, unspecified Coronary artery disease involving lower [place] heart without angina pectoris, unspecified vessel or lesion type Gastroesophageal reflux disease, unspecified whether esophagitis present Anxiety state Anxiety state, unspecified Polysubstance abuse (HCC) Other, mixed, or unspecified nondependent drug abuse, unspecified Hyperlipidemia, unspecified hyperlipidemia type Tobacco use disorder Subcutaneous emphysema resulting from a procedure, sequela Primary hypertension Unspecified essential hypertension Leukocytosis, unspecified type- Primary documented in this encounter [facility] note* Diagnosis Chest pain, unspecified type- Primary Dyspnea, unspecified type Hypokalemia Hypopotassemia Leukocytosis, unspecified type Chest pain Chest pain, unspecified Tobacco use disorder Polysubstance abuse (HCC) Other, mixed, or unspecified nondependent drug abuse, unspecified Pre-operative examination- Primary Preoperative examination, unspecified Coronary artery disease involving lower [place] heart without angina pectoris, unspecified vessel or lesion type Gastroesophageal reflux disease, unspecified whether esophagitis present Anxiety state Anxiety state, unspecified Polysubstance abuse (HCC) Other, mixed, or unspecified nondependent drug abuse, unspecified Hyperlipidemia, unspecified hyperlipidemia type Tobacco use disorder Subcutaneous emphysema resulting from a procedure, sequela Primary hypertension Unspecified essential hypertension Candidiasis- Primary Candidiasis of unspecified site Other acute recurrent sinusitis documented in this encounter [facility] note* Diagnosis Chest pain, unspecified type- Primary Dyspnea, unspecified type Hypokalemia Hypopotassemia Leukocytosis, unspecified type Chest pain Chest pain, unspecified Tobacco use disorder Polysubstance abuse (HCC) Other, mixed, or unspecified nondependent drug abuse, unspecified Pre-operative examination- Primary Preoperative examination, unspecified Coronary artery disease involving lower [place] heart without angina pectoris, unspecified vessel or lesion type Gastroesophageal reflux disease, unspecified whether esophagitis present Anxiety state Anxiety state, unspecified Polysubstance abuse (HCC) Other, mixed, or unspecified nondependent drug abuse, unspecified Hyperlipidemia, unspecified hyperlipidemia type Tobacco use disorder Subcutaneous emphysema resulting from a procedure, sequela Primary hypertension Unspecified essential hypertension Leukocytosis, unspecified type- Primary documented in this encounter [facility] note* Diagnosis Chest pain, unspecified type- Primary Dyspnea, unspecified type Hypokalemia Hypopotassemia Leukocytosis, unspecified type Chest pain Chest pain, unspecified Tobacco use disorder Polysubstance abuse (HCC) Other, mixed, or unspecified nondependent drug abuse, unspecified Pre-operative examination- Primary Preoperative examination, unspecified Coronary artery disease involving lower [place] heart without angina pectoris, unspecified vessel or lesion type Gastroesophageal reflux disease, unspecified whether esophagitis present Anxiety state Anxiety state, unspecified Polysubstance abuse (HCC) Other, mixed, or unspecified nondependent drug abuse, unspecified Hyperlipidemia, unspecified hyperlipidemia type Tobacco use disorder Subcutaneous emphysema resulting from a procedure, sequela Primary hypertension Unspecified essential hypertension Leukocytosis, unspecified type- Primary Thrombocytosis Essential thrombocythemia documented in this encounter [facility] note* Diagnosis Chest pain, unspecified type- Primary Dyspnea, unspecified type Hypokalemia Hypopotassemia Leukocytosis, unspecified type Chest pain Chest pain, unspecified Tobacco use disorder Polysubstance abuse (HCC) Other, mixed, or unspecified nondependent drug abuse, unspecified Pre-operative examination- Primary Preoperative examination, unspecified Coronary artery disease involving lower [place] heart without angina pectoris, unspecified vessel or lesion type Gastroesophageal reflux disease, unspecified whether esophagitis present Anxiety state Anxiety state, unspecified Polysubstance abuse (HCC) Other, mixed, or unspecified nondependent drug abuse, unspecified Hyperlipidemia, unspecified hyperlipidemia type Tobacco use disorder Subcutaneous emphysema resulting from a procedure, sequela Primary hypertension Unspecified essential hypertension Other iron deficiency anemia- Primary Candidiasis Candidiasis of unspecified site Respiratory infection Other diseases of respiratory system, not elsewhere classified Primary hypertension Unspecified essential hypertension documented in this encounter [facility] note* Diagnosis Chest pain, unspecified type- Primary Dyspnea, unspecified type Hypokalemia Hypopotassemia Leukocytosis, unspecified type Chest pain Chest pain, unspecified Tobacco use disorder Polysubstance abuse (HCC) Other, mixed, or unspecified nondependent drug abuse, unspecified Pre-operative examination- Primary Preoperative examination, unspecified Coronary artery disease involving lower [place] heart without angina pectoris, unspecified vessel or lesion type Gastroesophageal reflux disease, unspecified whether esophagitis present Anxiety state Anxiety state, unspecified Polysubstance abuse (HCC) Other, mixed, or unspecified nondependent drug abuse, unspecified Hyperlipidemia, unspecified hyperlipidemia type Tobacco use disorder Subcutaneous emphysema resulting from a procedure, sequela Primary hypertension Unspecified essential hypertension Encounter for screening mammogram for breast cancer documented in this encounter [facility] note* Diagnosis Chest pain, unspecified type- Primary Dyspnea, unspecified type Hypokalemia Hypopotassemia Leukocytosis, unspecified type Chest pain Chest pain, unspecified Tobacco use disorder Polysubstance abuse (HCC) Other, mixed, or unspecified nondependent drug abuse, unspecified Pre-operative examination- Primary Preoperative examination, unspecified Coronary artery disease involving lower [place] heart without angina pectoris, unspecified vessel or lesion type Gastroesophageal reflux disease, unspecified whether esophagitis present Anxiety state Anxiety state, unspecified Polysubstance abuse (HCC) Other, mixed, or unspecified nondependent drug abuse, unspecified Hyperlipidemia, unspecified hyperlipidemia type Tobacco use disorder Subcutaneous emphysema resulting from a procedure, sequela Primary hypertension Unspecified essential hypertension Adjustment disorder with anxiety Grief reaction with prolonged bereavement documented in this encounter [facility] note* Diagnosis Chest pain, unspecified type- Primary Dyspnea, unspecified type Hypokalemia Hypopotassemia Leukocytosis, unspecified type Chest pain Chest pain, unspecified Tobacco use disorder Polysubstance abuse (HCC) Other, mixed, or unspecified nondependent drug abuse, unspecified Pre-operative examination- Primary Preoperative examination, unspecified Coronary artery disease involving lower [place] heart without angina pectoris, unspecified vessel or lesion type Gastroesophageal reflux disease, unspecified whether esophagitis present Anxiety state Anxiety state, unspecified Polysubstance abuse (HCC) Other, mixed, or unspecified nondependent drug abuse, unspecified Hyperlipidemia, unspecified hyperlipidemia type Tobacco use disorder Subcutaneous emphysema resulting from a procedure, sequela Primary hypertension Unspecified essential hypertension URI, acute- Primary Acute upper respiratory infections of unspecified site Chronic obstructive pulmonary disease with acute exacerbation (HCC) Obstructive chronic bronchitis with exacerbation documented in this encounter [facility] note* Diagnosis Chest pain, unspecified type- Primary Dyspnea, unspecified type Hypokalemia Hypopotassemia Leukocytosis, unspecified type Chest pain Chest pain, unspecified Tobacco use disorder Polysubstance abuse (HCC) Other, mixed, or unspecified nondependent drug abuse, unspecified Pre-operative examination- Primary Preoperative examination, unspecified Coronary artery disease involving lower [place] heart without angina pectoris, unspecified vessel or lesion type Gastroesophageal reflux disease, unspecified whether esophagitis present Anxiety state Anxiety state, unspecified Polysubstance abuse (HCC) Other, mixed, or unspecified nondependent drug abuse, unspecified Hyperlipidemia, unspecified hyperlipidemia type Tobacco use disorder Subcutaneous emphysema resulting from a procedure, sequela Primary hypertension Unspecified essential hypertension Iron deficiency anemia, unspecified iron deficiency anemia type- Primary Rectal bleeding Hemorrhage of rectum and anus Rosacea Mixed hyperlipidemia 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 Primary hypertension Unspecified essential hypertension COPD with chronic bronchitis (HCC) Obstructive chronic bronchitis without exacerbation Screening for diabetes mellitus Thumb pain, left [facility]* Diagnosis Chest pain, unspecified type- Primary Dyspnea, unspecified type Hypokalemia Hypopotassemia Leukocytosis, unspecified type Chest pain Chest pain, unspecified Tobacco use disorder Polysubstance abuse (HCC) Other, mixed, or unspecified nondependent drug abuse, unspecified Pre-operative examination- Primary Preoperative examination, unspecified Coronary artery disease involving lower [place] heart without angina pectoris, unspecified vessel or lesion type Gastroesophageal reflux disease, unspecified whether esophagitis present Anxiety state Anxiety state, unspecified Polysubstance abuse (HCC) Other, mixed, or unspecified nondependent drug abuse, unspecified Hyperlipidemia, unspecified hyperlipidemia type Tobacco use disorder Subcutaneous emphysema resulting from a procedure, sequela Primary hypertension Unspecified essential hypertension Thumb pain, left [facility] Additional Instructions No signs of kidney stone on your CT today. Is possibly already passed 1. Your lab work does show a mild anemia as well as mildly low potassium. Please follow-up with your primary care doctor about your anemia. Eat potassium rich foods to help with your potassium levels. Continue to alternate Tylenol and ibuprofen as needed for your pain.[facility] Work Phone: [facility] Hospital Discharge instructions Additional Instructions Your exam indicates you do not need blood transfusion and that your bleeding was most likely from a ruptured internal hemorrhoid. Follow-up with GI to discuss need for colonoscopy and if you develop bouts of passing out or bleeding is persistent and not only with bowel movements and please [facility] Work Phone: Hospital Discharge instructions Additional Instructions Follow-up with your [employer] as scheduled.[facility] Work Phone: Reason for referral (narrative)* Diagnostic Procedure Only (Urgent) - Closed Specialty Diagnoses / Procedures Referred By Contac t Referred To Contact XR IMAGING Diagnoses Left elbow pain Procedures XR ELBOW SPECIAL VIEWS AP/LAT/OTHER LEFT RADEX ELBOW COMPLETE MINIMUM 3 VIEWS Wm Rayo MD [address] [place] [address] Xr Imaging Referral ID Status Reason Start Date Expiration Date V isits Requested Visits Authorized [id number] Closed Auto-Generate d Referral 02/01/2022 03/03/2023 1 1 [facility] for referral (narrative)* Diagnostic Procedure Only (Routine) - Pending Review Specialty Diagnoses / Procedures Referred By Contac t Referred To Contact BR IMAGING Diagnoses Encounter for screening mammogram for breast cancer Procedures ROB SCREENING SCREENING MAMMOGRAPHY BI 2-VIEW BREAST INC CAD Martinez Garcia MD [address] [place] [address] Br Imaging [address] [place] [address] Referral ID Status Reason Start Date Expiration Date Visits Requested Visits Authorized [id number] Pending Review Auto-Generat ed Referral 05/05/2022 06/04/2023 1 1 T [facility] for referral (narrative)* Diagnostic Procedure Only (Routine) - Authorized Specialty Diagnoses / Procedures Referred By Contac t Referred To Contact US IMAGING Diagnoses Dysmenorrhea Menorrhagia, premenopausal Procedures US FEMALE PELVIS TRANSVAG US TRANSVAGINAL Janelle Leahy APRN.CNM [address] [address] [place] [address] Referral ID Status Reason Start Date Expiration Date Visits Requested Visits Authorized [id number] Authorized Auto-Generat ed Referral 08/04/2023 09/02/2024 1 1 [facility] for referral (narrative)* Diagnostic Procedure Only (Routine) - Closed Specialty Diagnoses / Procedures Referred By Contac t Referred To Contact US IMAGING Diagnoses Dysmenorrhea Menorrhagia, premenopausal Procedures US FEMALE PELVIS TRANSVAG US TRANSVAGINAL Janelle Leahy APRN.CNM [address] [place] [address] [place] [address] Referral ID Status Reason Start Date Expiration Date V isits Requested Visits Authorized [id number] Closed Auto-Generate d Referral 08/04/2023 09/02/2024 1 1 [facility] for referral (narrative)* Diagnostic Procedure Only (Routine) - Pending Review Specialty Diagnoses / Procedures [facility] To Contact BR [facility] Diagnoses Encounter for screening mammogram for breast cancer Procedures ROB SCREENING SCREENING MAMMOGRAPHY BI 2-VIEW BREAST INC CAD Martinez Garcia MD [address] [place] [address] [facility] [address] [place] [address] Referral ID Status Reason Start Date Expiration Date Visits Requested Visits Authorized [id number] Pending Review Auto-Generat ed Referral 03/14/2024 04/13/2025 1 1 T [facility] for referral (narrative)* Diagnostic Procedure Only (Urgent) - Closed Specialty Diagnoses / Procedures [facility] Referred To Contact XR IMAGING Diagnoses Left elbow pain Procedures XR ELBOW SPECIAL VIEWS AP/LAT/OTHER LEFT RADEX ELBOW COMPLETE MINIMUM 3 VIEWS Wm Rayo MD [address] [place] [address] [place] [address] Referral ID Status Reason Start Date Expiration Date V isits Requested Visits Authorized [id number] Closed Auto-Generate d Referral 02/01/2022 03/03/2023 1 1 T [facility] for visit Narrative* Diagnostic Procedure Only (Urgent) - Closed Specialty Diagnoses / Procedures Referred By Contac t Referred To Contact XR IMAGING Diagnoses Left elbow pain Procedures XR ELBOW SPECIAL VIEWS AP/LAT/OTHER LEFT RADEX ELBOW COMPLETE MINIMUM 3 VIEWS Wm Rayo MD [address] [place] [address] [place] [address] Referral ID Status Reason Start Date Expiration Date V isits Requested Visits Authorized [id number] Closed Auto-Generate d Referral 02/01/2022 03/03/2023 1 1 [facility] for visit Narrative* Diagnostic Procedure Only (Routine) - Closed Specialty Diagnoses / Procedures Referred By Contac t Referred To Contact XR IMAGING Diagnoses Thumb pain, left Procedures XR HAND GENERAL 3V PA/LAT/OBL LEFT RADEX HAND MINIMUM 3 VIEWS Amita Pope APRN.CNP [address] [place] [address] Phone: tel: fax: [place] [address] Referral ID Status Reason Start Date Expiration Date V isits Requested Visits Authorized [id number] Closed Auto-Generate d Referral 06/18/2025 07/18/2026 1 1 [place] Summary Purpose Family History Relationship Condition Age at Onset Recorded Date/T radha Not Specified Diabetes mellitus Unknown Arthritis Unknown Cardiac disease Unknown Gastric ulcer Unknown Malignant neoplasm Unknown Advance Directives Documents on File Type Date 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 Advance Directive(s) 11/27/2020 10:53 AM Advance Directive(s) 08/29/2018 9:31 PM Advance Directive(s) 09/14/2017 8:13 PM Documents on File Type Date 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 Advance Directive(s) 11/27/2020 10:53 AM Advance Directive(s) 08/29/2018 9:31 PM Advance Directive(s) 09/14/2017 8:13 PM Advance Directive Response Recorded Date/ Time Advance Directives No October 8:01pm Living Will No May 05, 2022 1:02am Power of Lockstitch Cup Setter No May 05 1:02am Advance Directive Response Recorded Date/ Time Advance Directives No October 8:01pm Living Will No June 25 8:37am Power of Lockstitch Cup Setter No June 25 8:37am Advance Directive Response Recorded Date/ Time Advance Directives No October 7:01pm Living Will No October 08 11:29am Power of Lockstitch Cup Setter No October 08, 2022 11:29am Advance Directive Response Recorded Date/ Time Advance Directives No October 8:01pm Living Will No June 14, 2023 9:50pm Power of Lockstitch Cup Setter No June 14 9:50pm Advance Directive Response Recorded Date/ Time Advance Directives No October 8:01pm Living Will No August 01, 2023 10:24am Power of Lockstitch Cup Setter No July 10:24am Advance Directive Response Recorded Date/ Time Advance Directives No October 7:01pm Living Will No November 14 2:57pm Power of Lockstitch Cup Setter No November 14 2:57pm Advance Directive Response Recorded Date/ Time Advance Directives No October 7:01pm Living Will No December 08 6:47pm Power of Lockstitch Cup Setter No December 08, 2023 6:47pm Reason for Referral Specialty Diagnoses / Procedures Referred By Binta roberts Referred To Contact Orthopedics Diagnoses Left elbow pain Procedures CONSULT TO ORTHOPAEDICS OFFICE/OUTPATIENT [facility] [place] 60-74 MINUTES Francy Bernard, DIRECTOR OF CARDIAC REHABILITATION.OXYGEN FURNACE OPERATOR [address] [place] [address] Referral ID Status Reason Start Date Expiration Date Visits Requested Visits Authorized [id number] Authorized PCP Requested Referral 03/03/2022 03/03/2023 1 1 Specialty Diagnoses / Procedures Referred By Binta roberts Referred [facility] Diagnoses Left elbow pain Skin sensation disturbance Procedures EMG(NEURO/NI) NERVE CONDUCTION STUDIES 9-10 STUDIES Francy Bernard, DIRECTOR OF CARDIAC REHABILITATION.OXYGEN FURNACE OPERATOR [address] [place] [address] Neurological [facility] [address] [place] [address] Referral ID Status Reason Start Date Expiration Date Visits Requested Visits Authorized [id number] Pending Review Auto-Generat ed Referral 03/03/2022 03/03/2023 1 1 Specialty Diagnoses / Procedures Referred By Binta roberts [facility] Diagnoses Raynaud's phenomenon without gangrene Procedures PVR ANK PRESS [facility] NON-INVAS PHYSIOLOGIC STD EXTREMITY ART 2 LEVEL Delores Chowdhury PA-C [address] [place] [address] [facility] [address] [place] [id number] Referral ID Status Reason Start Date Expiration Date Visits Requested Visits Authorized [id number] Authorized Financial Clearance Required - Self Pay Patient Cleared - Qualified 100% FAS 03/27/2024 06/12/2024 1 1 Specialty Diagnoses / Procedures Referred By Contac t Referred To Contact [facility] [place] Diagnoses Raynaud's phenomenon without gangrene Procedures PVR LEG [facility] NON-INVASIVE PHYSIOLOGIC STUDY EXTREMITY 3 LEVLS Delores Chowdhury PA-C [address] [place] [address] [facility] [id number] [place] [address] Referral ID Status Reason Start Date Expiration Date Visits Requested Visits Authorized [id number] Authorized Financial Clearance Required - Self Pay Patient Cleared - Qualified 100% FAS 03/27/2024 06/12/2024 1 1 Chief Complaint and Reason for Visit Chief Complaint FLANK PAIN Chief Complaint FLANK PAIN back pain Chief Complaint back pain near syncope Chief Complaint near syncope Chief Complaint BLOODY STOOL Chief Complaint BLOODY STOOL LIGHT HEADED Chief Complaint LIGHT HEADED FEMALE C/O Chief Complaint FEMALE C/O b/l knee pain Health Concerns Infection Onset Date Last Indicated Resolved Time COVID-19 Confirmed 05/04/2022 05/04/2022 Infection Onset Date Last Indicated Resolved Time COVID-19 Confirmed 05/04/2022 05/04/2022 Additional Source Comments INFORMATION SOURCE (unrecogn ized section and content) DATE CREATED AUTHOR 05/02/2018 [facility] DATE CREATED AUTHOR AUTHOR'S ORGANIZ ATION 05/02/2018 [facility] DATE CREATED AUTHOR AUTHOR'S ORGANIZ ATION 05/08/2018 [facility] ([place]) DATE CREATED AUTHOR AUTHOR'S ORGANIZ ATION 10/16/2018 [facility] DATE CREATED AUTHOR AUTHOR'S ORGANIZ ATION 12/24/2022 [facility] DATE CREATED AUTHOR AUTHOR'S ORGANIZ ATION 01/08/2025 [facility] DATE CREATED AUTHOR AUTHOR'S ORGANIZ ATION 01/14/2025 [facility] DATE CREATED AUTHOR AUTHOR'S ORGANIZ ATION 06/19/2025 [facility] Source Comments (unrecognize d section and content) In the event this informatio n is protected by the Federal Confidentiality of Alcohol and Drug Abuse Patient Records regulations: The Federal rules restrict any use of the information to criminally investigate or prosecute any alcohol or drug abuse patient.[place] the event this information is protected by the Federal Confidentiality of Alcohol and Drug Abuse Patient Records regulations: The Federal rules restrict any use of the information to criminally investigate or prosecute any alcohol or drug abuse patient.[place]In the event this information is protected by the Federal Confidentiality of Alcohol and Drug Abuse Patient Records regulations: The Federal rules restrict any use of the information to criminally investigate or prosecute any alcohol or drug abuse patient.[place]In the event this information is protected by the Federal Confidentiality of Alcohol and Drug Abuse Patient Records regulations: The Federal rules restrict any use of the information to criminally investigate or prosecute any alcohol or drug abuse patient.[place]In the event this information is protected by the Federal Confidentiality of Alcohol and Drug Abuse Patient Records regulations: The Federal rules restrict any use of the information to criminally investigate or prosecute any alcohol or drug abuse patient.[place]In the event this information is protected by the Federal Confidentiality of Alcohol and Drug Abuse Patient Records regulations: The Federal rules restrict any use of the information to criminally investigate or prosecute any alcohol or drug abuse patient.[place]In the event this information is protected by the Federal Confidentiality of Alcohol and Drug Abuse Patient Records regulations: The Federal rules restrict any use of the information to criminally investigate or prosecute any alcohol or drug abuse patient.[place]In the event this information is protected by the Federal Confidentiality of Alcohol and Drug Abuse Patient Records regulations: The Federal rules restrict any use of the information to criminally investigate or prosecute any alcohol or drug abuse patient.[place]In the event this information is protected by the Federal Confidentiality of Alcohol and Drug Abuse Patient Records regulations: The Federal rules restrict any use of the information to criminally investigate or prosecute any alcohol or drug abuse patient.[place]In the event this information is protected by the Federal Confidentiality of Alcohol and Drug Abuse Patient Records regulations: The Federal rules restrict any use of the information to criminally investigate or prosecute any alcohol or drug abuse patient.[place]In the event this information is protected by the Federal Confidentiality of Alcohol and Drug Abuse Patient Records regulations: The Federal rules restrict any use of the information to criminally investigate or prosecute any alcohol or drug abuse patient.[place]In the event this information is protected by the Federal Confidentiality of Alcohol and Drug Abuse Patient Records regulations: The Federal rules restrict any use of the information to criminally investigate or prosecute any alcohol or drug abuse patient.[place]In the event this information is protected by the Federal Confidentiality of Alcohol and Drug Abuse Patient Records regulations: The Federal rules restrict any use of the information to criminally investigate or prosecute any alcohol or drug abuse patient.[place]In the event this information is protected by the Federal Confidentiality of Alcohol and Drug Abuse Patient Records regulations: The Federal rules restrict any use of the information to criminally investigate or prosecute any alcohol or drug abuse patient.[place]In the event this information is protected by the Federal Confidentiality of Alcohol and Drug Abuse Patient Records regulations: The Federal rules restrict any use of the information to criminally investigate or prosecute any alcohol or drug abuse patient.[place]In the event this information is protected by the Federal Confidentiality of Alcohol and Drug Abuse Patient Records regulations: The Federal rules restrict any use of the information to criminally investigate or prosecute any alcohol or drug abuse patient.[place]In the event this information is protected by the Federal Confidentiality of Alcohol and Drug Abuse Patient Records regulations: The Federal rules restrict any use of the information to criminally investigate or prosecute any alcohol or drug abuse patient.[place]In the event this information is protected by the Federal Confidentiality of Alcohol and Drug Abuse Patient Records regulations: The Federal rules restrict any use of the information to criminally investigate or prosecute any alcohol or drug abuse patient.[place]In the event this information is protected by the Federal Confidentiality of Alcohol and Drug Abuse Patient Records regulations: The Federal rules restrict any use of the information to criminally investigate or prosecute any alcohol or drug abuse patient.[place]In the event this information is protected by the Federal Confidentiality of Alcohol and Drug Abuse Patient Records regulations: The Federal rules restrict any use of the information to criminally investigate or prosecute any alcohol or drug abuse patient.[place]In the event this information is protected by the Federal Confidentiality of Alcohol and Drug Abuse Patient Records regulations: The Federal rules restrict any use of the information to criminally investigate or prosecute any alcohol or drug abuse patient.[place]In the event this information is protected by the Federal Confidentiality of Alcohol and Drug Abuse Patient Records regulations: The Federal rules restrict any use of the information to criminally investigate or prosecute any alcohol or drug abuse patient.[place]In the event this information is protected by the Federal Confidentiality of Alcohol and Drug Abuse Patient Records regulations: The Federal rules restrict any use of the information to criminally investigate or prosecute any alcohol or drug abuse patient.[place]In the event this information is protected by the Federal Confidentiality of Alcohol and Drug Abuse Patient Records regulations: The Federal rules restrict any use of the information to criminally investigate or prosecute any alcohol or drug abuse patient.[place]In the event this information is protected by the Federal Confidentiality of Alcohol and Drug Abuse Patient Records regulations: The Federal rules restrict any use of the information to criminally investigate or prosecute any alcohol or drug abuse patient.[place]In the event this information is protected by the Federal Confidentiality of Alcohol and Drug Abuse Patient Records regulations: The Federal rules restrict any use of the information to criminally investigate or prosecute any alcohol or drug abuse patient.[place]In the event this information is protected by the Federal Confidentiality of Alcohol and Drug Abuse Patient Records regulations: The Federal rules restrict any use of the information to criminally investigate or prosecute any alcohol or drug abuse patient.[place]In the event this information is protected by the Federal Confidentiality of Alcohol and Drug Abuse Patient Records regulations: The Federal rules restrict any use of the information to criminally investigate or prosecute any alcohol or drug abuse patient.[place]In the event this information is protected by the Federal Confidentiality of Alcohol and Drug Abuse Patient Records regulations: The Federal rules restrict any use of the information to criminally investigate or prosecute any alcohol or drug abuse patient.[place]In the event this information is protected by the Federal Confidentiality of Alcohol and Drug Abuse Patient Records regulations: The Federal rules restrict any use of the information to criminally investigate or prosecute any alcohol or drug abuse patient.[place]In the event this information is protected by the Federal Confidentiality of Alcohol and Drug Abuse Patient Records regulations: The Federal rules restrict any use of the information to criminally investigate or prosecute any alcohol or drug abuse patient.[place]In the event this information is protected by the Federal Confidentiality of Alcohol and Drug Abuse Patient Records regulations: The Federal rules restrict any use of the information to criminally investigate or prosecute any alcohol or drug abuse patient.[place]In the event this information is protected by the Federal Confidentiality of Alcohol and Drug Abuse Patient Records regulations: The Federal rules restrict any use of the information to criminally investigate or prosecute any alcohol or drug abuse patient.[place]In the event this information is protected by the Federal Confidentiality of Alcohol and Drug Abuse Patient Records regulations: The Federal rules restrict any use of the information to criminally investigate or prosecute any alcohol or drug abuse patient.[place]In the event this information is protected by the Federal Confidentiality of Alcohol and Drug Abuse Patient Records regulations: The Federal rules restrict any use of the information to criminally investigate or prosecute any alcohol or drug abuse patient.[place]In the event this information is protected by the Federal Confidentiality of Alcohol and Drug Abuse Patient Records regulations: The Federal rules restrict any use of the information to criminally investigate or prosecute any alcohol or drug abuse patient.[place]In the event this information is protected by the Federal Confidentiality of Alcohol and Drug Abuse Patient Records regulations: The Federal rules restrict any use of the information to criminally investigate or prosecute any alcohol or drug abuse patient.[place]In the event this information is protected by the Federal Confidentiality of Alcohol and Drug Abuse Patient Records regulations: The Federal rules restrict any use of the information to criminally investigate or prosecute any alcohol or drug abuse patient.[place]In the event this information is protected by the Federal Confidentiality of Alcohol and Drug Abuse Patient Records regulations: The Federal rules restrict any use of the information to criminally investigate or prosecute any alcohol or drug abuse patient.[place]In the event this information is protected by the Federal Confidentiality of Alcohol and Drug Abuse Patient Records regulations: The Federal rules restrict any use of the information to criminally investigate or prosecute any alcohol or drug abuse patient.[place]In the event this information is protected by the Federal Confidentiality of Alcohol and Drug Abuse Patient Records regulations: The Federal rules restrict any use of the information to criminally investigate or prosecute any alcohol or drug abuse patient.[place]In the event this information is protected by the Federal Confidentiality of Alcohol and Drug Abuse Patient Records regulations: The Federal rules restrict any use of the information to criminally investigate or prosecute any alcohol or drug abuse patient.[place]In the event this information is protected by the Federal Confidentiality of Alcohol and Drug Abuse Patient Records regulations: The Federal rules restrict any use of the information to criminally investigate or prosecute any alcohol or drug abuse patient.[place]In the event this information is protected by the Federal Confidentiality of Alcohol and Drug Abuse Patient Records regulations: The Federal rules restrict any use of the information to criminally investigate or prosecute any alcohol or drug abuse patient.[place]In the event this information is protected by the Federal Confidentiality of Alcohol and Drug Abuse Patient Records regulations: The Federal rules restrict any use of the information to criminally investigate or prosecute any alcohol or drug abuse patient.[place]In the event this information is protected by the Federal Confidentiality of Alcohol and Drug Abuse Patient Records regulations: The Federal rules restrict any use of the information to criminally investigate or prosecute any alcohol or drug abuse patient.[place]In the event this information is protected by the Federal Confidentiality of Alcohol and Drug Abuse Patient Records regulations: The Federal rules restrict any use of the information to criminally investigate or prosecute any alcohol or drug abuse patient.[place]In the event this information is protected by the Federal Confidentiality of Alcohol and Drug Abuse Patient Records regulations: The Federal rules restrict any use of the information to criminally investigate or prosecute any alcohol or drug abuse patient.[place]In the event this information is protected by the Federal Confidentiality of Alcohol and Drug Abuse Patient Records regulations: The Federal rules restrict any use of the information to criminally investigate or prosecute any alcohol or drug abuse patient.[place]In the event this information is protected by the Federal Confidentiality of Alcohol and Drug Abuse Patient Records regulations: The Federal rules restrict any use of the information to criminally investigate or prosecute any alcohol or drug abuse patient.[place]In the event this information is protected by the Federal Confidentiality of Alcohol and Drug Abuse Patient Records regulations: The Federal rules restrict any use of the information to criminally investigate or prosecute any alcohol or drug abuse patient.[place]In the event this information is protected by the Federal Confidentiality of Alcohol and Drug Abuse Patient Records regulations: The Federal rules restrict any use of the information to criminally investigate or prosecute any alcohol or drug abuse patient.[place]In the event this information is protected by the Federal Confidentiality of Alcohol and Drug Abuse Patient Records regulations: The Federal rules restrict any use of the information to criminally investigate or prosecute any alcohol or drug abuse patient.[place]In the event this information is protected by the Federal Confidentiality of Alcohol and Drug Abuse Patient Records regulations: The Federal rules restrict any use of the information to criminally investigate or prosecute any alcohol or drug abuse patient.[place]In the event this information is protected by the Federal Confidentiality of Alcohol and Drug Abuse Patient Records regulations: The Federal rules restrict any use of the information to criminally investigate or prosecute any alcohol or drug abuse patient.[place]In the event this information is protected by the Federal Confidentiality of Alcohol and Drug Abuse Patient Records regulations: The Federal rules restrict any use of the information to criminally investigate or prosecute any alcohol or drug abuse patient.[place] Reason for Visit (unrecogniz ed section and content) Reason Comments Follow Up ER Reason Comments Results Reason Comments Pain (Elbow Pain) L elbow x1 week, no known cause Reason Onset Date Comments Refill Request 02/15/2022 Reason Comments Pain (Elbow Pain) LEFT elbow x 1 month Reason Onset Date Comments EMG 03/05/2022 Specialty Diagnoses / Procedures Referred By Binta roberts Referred To Contact [facility] Diagnoses Left elbow pain Skin sensation disturbance Procedures EMG(NEURO/NI) NERVE CONDUCTION STUDIES 9-10 STUDIES Francy Bernard APRN.OXYGEN FURNACE OPERATOR [address] [place] [address] Neurological [facility] [address] [place] [address] Referral ID Status Reason Start Date Expiration Date V isits Requested Visits Authorized [id number] Closed Auto-Generate d Referral 03/04/2022 11/06/2022 1 1 Reason Comments Refill Request Reason Comments Follow Up Reason Comments Sinus Problem Sinus pressure and c ongestion and left ear pain and pressure x 1 week Reason Comments New Numbness Specialty Diagnoses / Procedures Referred By Contac t Referred To Contact Orthopedics Diagnoses Carpal tunnel syndrome, left Procedures CONSULT TO ORTHOPAEDICS OFFICE/OUTPATIENT NEW HIGH MDM 60-74 MINUTES Francy Bernard, DIRECTOR OF CARDIAC REHABILITATION.OXYGEN FURNACE OPERATOR [address] [place] [address] Referral ID Status Reason Start Date Expiration Date V isits Requested Visits Authorized [id number] Closed PCP Requested Referral 10/12/2022 10/12/2023 1 1 Reason Comments Schedule Surgery Reason Comments Post Op 1 week 5 days post op Left CTR Reason Onset Date Comments Transition Of Care 11/30/2022 TCM Initial H ospital Discharge 11/29/2022 Reason Comments Patient Question Reason Onset Date Comments Refill Request 02/18/2023 Reason Comments Menstrual Problem Heavy bleeding, clot s, cramping Reason Comments Radiology US Specialty Diagnoses / Procedures Referred By Contac t Referred To Contact US IMAGING Diagnoses Dysmenorrhea Menorrhagia, premenopausal Procedures US FEMALE PELVIS TRANSVAG US TRANSVAGINAL Janelle Leahy, DIRECTOR OF CARDIAC REHABILITATION.CNM [address] [place] [address] Us Imaging [id number] Referral ID Status Reason Start Date Expiration Date V isits Requested Visits Authorized [id number] Closed Auto-Generate d Referral 08/04/2023 09/02/2024 1 1 Reason Comments Bilateral Knee Pain X 2 days-cannot reca ll an injury Reason Onset Date Comments Refill Request 12/19/2023 Reason Comments Refill Request Future Appointment Reason Comments Yearly Exam Reason Comments Orders Reason Onset Date Comments Refill Request 07/13/2024 Reason Onset Date Comments Refill Request 08/03/2024 Reason Onset Date Comments Refill Request 10/26/2024 Reason Comments Sinus Problem sinus pressure, drai nage, ear pain, gi upset x 3 days Reason Onset Date Comments Refill Request 12/31/2024 Reason Comments ER F/U Reason Comments ER F/U [facility] 12/26/24 [place] 27/03 Reason Comments Patient Update Appointment Reason Comments Mouth/Lip Problem Thrush Sinusitis Reason Comments New Patient Reason Onset Date Comments Results 01/15/2025 Reason Comments New Patient Evaluation Specialty Diagnoses / Procedures Referred By Contac t Referred To Contact Hematology Diagnoses Leukocytosis, unspecified type Procedures CONSULT TO HEMATOLOGY OFFICE/OUTPATIENT NEW HIGH MDM 60 MINUTES Amita Pope APRN.OXYGEN FURNACE OPERATOR [address] [place] [address] Phone: tel: fax: Referral ID Status Reason Start Date Expiration Date V isits Requested Visits Authorized [id number] Closed PCP Requested Referral 01/15/2025 01/15/2026 1 1 Reason Onset Date Comments requesting medication that is 04/25/2025 Venlafaxine ER 150 mg 24 hr tablet Refill Request Reason Comments Ear Pain Bilateral ear pain, fever, cough, ST, and chest congestion x 2 days Reason Comments Rectal Bleeding Reason Comments Rectal Bleeding Hemorrhoids Care Teams (unrecognized sec tion and content) Ground Services Instructor Relationship Specialty Start Date End Date Martinez Garcia MD [address] [place] [address] PCP - General Family Practice 08/09/12 Ground Services Instructor Relationship Specialty Start Date End Date Martinez Garcia MD [address] [place] [address] PCP - General Family Practice 08/09/12 Ground Services Instructor Relationship Specialty Start Date End Date Martinez Garcia MD [address] [place] [address] PCP - General Family Practice 08/09/12 Ground Services Instructor Relationship Specialty Start Date End Date Martinez Garcia MD [address] [place] [address] PCP - General Family Practice 08/09/12 Ground Services Instructor Relationship Specialty Start Date End Date Martinez Garcia MD [address] [place] [address] PCP - General Family Practice 08/09/12 Ground Services Instructor Relationship Specialty Start Date End Date Martinez Garcia MD [address] [place] [address] PCP - General Family Practice 08/09/12 Ground Services Instructor Relationship Specialty Start Date End Date Martinez Garcia MD [address] [place] [address] PCP - General Family Practice 08/09/12 Ground Services Instructor Relationship Specialty Start Date End Date Martinez Garcia MD [address] [place] [address] PCP - General Family Practice 08/09/12 Ground Services Instructor Relationship Specialty Start Date End Date Martinez Garcia MD [address] [place] [address] PCP - General Family Medicine 08/09/12 Ground Services Instructor Relationship Specialty Start Date End Date Martinez Garcia MD [address] [place] [address] PCP - General Family Medicine 08/09/12 Ground Services Instructor Relationship Specialty Start Date End Date Martinez Garcia MD [address] [place] [address] PCP - General Family Medicine 08/09/12 Ground Services Instructor Relationship Specialty Start Date End Date Martinez Garcia MD [address] [place] [address] PCP - General Family Medicine 08/09/12 Ground Services Instructor Relationship Specialty Start Date End Date Martinez Garcia MD [address] [place] [address] PCP - General Family Medicine 08/09/12 Ground Services Instructor Relationship Specialty Start Date End Date Martinez Garcia MD [address] [place] [address] PCP - General Family Medicine 08/09/12 Team Status: Active Member Role Status Dates Dr. Martinez Garcia MD Family Provider Active Dr. Martinez Garcia MD Primary Care Provider Active Team Status: Inactive Member Role Status Dates Dr. Martinez Garcia MD Primary Care Provider Active Dr. Eduardo Lu DO Attending Provider, Emergency Provider Active Team Status: Inactive Member Role Status Dates Dr. Martinez Garcia MD Primary Care Provider Active Dr. Joseph Tomas MD Emergency Provider Active Ground Services Instructor Relationship Specialty Start Date End Date Martinez Garcia MD [address] [place] [address] PCP - General Family Medicine 08/09/12 Team Status: Inactive Member Role Status Dates Dr. Martinez Garcia MD Primary Care Provider Active Dr. Willy Webb DO Emergency Provider Active Team Status: Inactive Member Role Status Dates Dr. Martinez Garcia MD Primary Care Provider Active Dr. Willy Webb DO Attending Provider, Emergency Pr ovider Active Team Status: Inactive Member Role Status Dates Dr. Martinez Garcia MD Primary Care Provider Active Ej Luther MD Emergency Provider Active Ground Services Instructor Relationship Specialty Start Date End Date Martinez Garcia MD [address] [place] [address] PCP - General Family Medicine 08/09/12 Ground Services Instructor Relationship Specialty Start Date End Date Martinez Garcia MD [address] [place] [address] PCP - General Family Medicine 08/09/12 Ground Services Instructor Relationship Specialty Start Date End Date Martinez Garcia MD [address] [place] [address] PCP - General Family Medicine 08/09/12 Team Status: Inactive Member Role Status Dates Dr. Martinez Garcia MD Primary Care Provider Active Ej Luther MD Attending Provider, Emergency Provid er Active Team Status: Inactive Member Role Status Dates Dr. Martinez Garcia MD Primary Care Provider Active Dr. Eduardo Lu DO Emergency Provider Active Ground Services Instructor Relationship Specialty Start Date End Date Martinez Garcia MD [address] [place] [address] PCP - General Family Medicine 08/09/12 Team Status: Inactive Member Role Status Dates Dr. Martinez Garcia MD Primary Care Provider Active Dr. Sushma Arzola MD Emergency Provider Active Ground Services Instructor Relationship Specialty Start Date End Date Martinez Garcia MD [address] [place] [address] PCP - General Family Medicine 08/09/12 Ground Services Instructor Relationship Specialty Start Date End Date Martinez Garcia MD [address] [place] [address] PCP - General Family Medicine 08/09/12 Ground Services Instructor Relationship Specialty Start Date End Date Martinez Garcia MD [address] [place] [address] PCP - General Family Medicine 08/09/12 Ground Services Instructor Relationship Specialty Start Date End Date Martinez Garcia MD [address] [place] [address] PCP - General Family Medicine 08/09/12 Ground Services Instructor Relationship Specialty Start Date End Date Martinez Garcia MD [address] [place] [address] PCP - General Family Medicine 08/09/12 Ground Services Instructor Relationship Specialty Start Date End Date Martinez Garcia MD [address] [place] [address] PCP - General Family Medicine 08/09/12 Ground Services Instructor Relationship Specialty Start Date End Date Martinez Garcia MD [address] [place], [place] [address] PCP - General Family Medicine 08/09/12 Ground Services Instructor Relationship Specialty Start Date End Date Martinez Garcia MD [address] [place], [place] [address] PCP - General Family Medicine 08/09/12 Ground Services Instructor Relationship Specialty Start Date End Date Martinez Garcia MD [address] [place], [place] [address] PCP - General Family Medicine 08/09/12 Ground Services Instructor Relationship Specialty Start Date End Date Martinez Garcia MD [address] [place] [address] PCP - General Family Medicine 08/09/12 Francy Bernard, DIRECTOR OF CARDIAC REHABILITATION.OXYGEN FURNACE OPERATOR [address] [place] [address] Web Coordinator Family Medicine 10/15/24 Amita Pope DIRECTOR OF CARDIAC REHABILITATION.OXYGEN FURNACE OPERATOR [address] [place], [place] [address] Web Coordinator Family Medicine 10/15/24 Ground Services Instructor Relationship Specialty Start Date End Date Martinez Garcia MD [address] [place], [place] [address] PCP - General Family Medicine 08/09/12 Francy Bernard, DIRECTOR OF CARDIAC REHABILITATION.OXYGEN FURNACE OPERATOR [address] [place] [address] Web Coordinator Family Medicine 10/15/24 Amita Pope APRN.OXYGEN FURNACE OPERATOR [address] [facility] [place] [address] [facility] 10/15/24 Ground Services Instructor Relationship Specialty Start Date End Date Martinez Garcia MD [address] [facility] [place] [address] PCP - General Family Medicine 08/09/12 Francy Bernard APRN.OXYGEN FURNACE OPERATOR [address] [facility] [place] [address] [facility] 10/15/24 Amita Pope APRN.OXYGEN FURNACE OPERATOR [address] [facility] [place] [address] [facility] 10/15/24 Ground Services Instructor Relationship Specialty Start Date End Date Martinez Garcia MD [address] [facility] [place] [address] PCP - General Family Medicine 08/09/12 Francy Bernard APRN.OXYGEN FURNACE OPERATOR [address] [place] [address] [facility] 10/15/24 Amita Pope DIRECTOR OF CARDIAC REHABILITATION.OXYGEN FURNACE OPERATOR [address] [place] [address] [facility] 10/15/24 Ground Services Instructor Relationship Specialty Start Date End Date Martinez Garcia MD [address] [facility] [place] [address] PCP - General Family Medicine 08/09/12 Francy Bernard APRN.OXYGEN FURNACE OPERATOR [address] [facility] [place] [address] [facility] 10/15/24 Amita Pope APRN.OXYGEN FURNACE OPERATOR [address] [facility] [place] [address] [facility] 10/15/24 Ground Services Instructor Relationship Specialty Start Date End Date Martinez Garcia MD [address] [facility] [place] [address] PCP - General Family Medicine 08/09/12 Francy Bernard APRN.OXYGEN FURNACE OPERATOR [address] [facility] [place] [address] [facility] 10/15/24 Amita Pope APRN.OXYGEN FURNACE OPERATOR [address] [facility] [place] [address] [facility] 10/15/24 Ground Services Instructor Relationship Specialty Start Date End Date Martinez Garcia MD [address] [facility] [place] [address] PCP - General Family Medicine 08/09/12 Francy Bernard APRN.OXYGEN FURNACE OPERATOR [address] [facility] [place] [address] [facility] 10/15/24 Amita Pope APRN.OXYGEN FURNACE OPERATOR [address] [facility] [place] [address] [facility] 10/15/24 Ground Services Instructor Relationship Specialty Start Date End Date Martinez Garcia MD [address] [place] [address] PCP - General Family Medicine 08/09/12 Francy Bernard APRN.OXYGEN FURNACE OPERATOR [address] [facility] [place] [address] Web Coordinator Family Medicine 10/15/24 Amita Pope APRN.OXYGEN FURNACE OPERATOR [address] [place] [address] [facility] 10/15/24 Ground Services Instructor Relationship Specialty Start Date End Date Martinez Garcia MD [address] [place] [address] PCP - General Family Medicine 08/09/12 Francy Bernard APRN.OXYGEN FURNACE OPERATOR [address] [place] [address] [facility] 10/15/24 Amita Pope APRN.OXYGEN FURNACE OPERATOR [address] [place] [address] [facility] 10/15/24 Ground Services Instructor Relationship Specialty Start Date End Date Martinez Garcia MD [address] [place] [address] PCP - General Family Medicine 08/09/12 Francy Bernard APRN.OXYGEN FURNACE OPERATOR [address] [place] [address] Web Coordinator [facility] 10/15/24 Amita Pope APRN.OXYGEN FURNACE OPERATOR [address] [place] [address] [facility] 10/15/24 Ground Services Instructor Relationship Specialty Start Date End Date Martinez Garcia MD [address] [facility] [place] [address] PCP - General Family Medicine 08/09/12 Francy Bernard, DIRECTOR OF CARDIAC REHABILITATION.OXYGEN FURNACE OPERATOR [address] [place] [address] [facility] 10/15/24 Amita Pope DIRECTOR OF CARDIAC REHABILITATION.OXYGEN FURNACE OPERATOR [address] [facility] [place] [address] [facility] 10/15/24 Ground Services Instructor Relationship Specialty Start Date End Date Martinez Garcia MD [address] [place] [address] PCP - General Family Medicine 08/09/12 Francy Bernard, DIRECTOR OF CARDIAC REHABILITATION.OXYGEN FURNACE OPERATOR [address] [place] [address] [facility] Medicine 10/15/24 Amita Pope DIRECTOR OF CARDIAC REHABILITATION.OXYGEN FURNACE OPERATOR [address] [facility] [place] [address] [facility] Medicine 10/15/24 Ground Services Instructor Relationship Specialty Start Date End Date Martinez Garcia MD [address] [facility] [place] [address] PCP - General Family Medicine 08/09/12 Francy Bernard, DIRECTOR OF CARDIAC REHABILITATION.OXYGEN FURNACE OPERATOR [address] [facility] [place] [address] Web Coordinator Family Medicine 10/15/24 Amita Pope APRN.OXYGEN FURNACE OPERATOR [address] [place] [address] [facility] 10/15/24 Ground Services Instructor Relationship Specialty Start Date End Date Martinez Garcia MD [address] [place] [address] PCP - General Family Medicine 08/09/12 Francy Bernard DIRECTOR OF CARDIAC REHABILITATION.OXYGEN FURNACE OPERATOR [address] [facility] [place] [address] Web Coordinator Family Medicine 10/15/24 Amita Pope DIRECTOR OF CARDIAC REHABILITATION.OXYGEN FURNACE OPERATOR [address] [place] [address] [facility] 10/15/24 Ground Services Instructor Relationship Specialty Start Date End Date Martinez Garcia MD [address] [place] [address] PCP - General Family Medicine 08/09/12 Francy Bernard, DIRECTOR OF CARDIAC REHABILITATION.OXYGEN FURNACE OPERATOR [address] [facility] [address] Web Coordinator Family Medicine 10/15/24 Amita Pope DIRECTOR OF CARDIAC REHABILITATION.OXYGEN FURNACE OPERATOR [address] [place] [address] Web Coordinator Family Medicine 10/15/24 Ground Services Instructor Relationship Specialty Start Date End Date Martinez Garcia MD [address] [place] [address] PCP - General Family Medicine 08/09/12 Francy Bernard, DIRECTOR OF CARDIAC REHABILITATION.OXYGEN FURNACE OPERATOR [address] [place] [address] [facility] 10/15/24 Amita Pope APRN.OXYGEN FURNACE OPERATOR [address] [facility] [place] [address] [facility] 10/15/24 Goals (unrecognized section and content) Goals may be documented in a n alternate sectionGoals may be documented in an alternate sectionGoals may be documented in an alternate sectionGoals may be documented in an alternate sectionGoals may be documented in an alternate sectionGoals may be documented in an alternate sectionGoals may be documented in an alternate sectionGoals may be documented in an alternate section FOR RECORDS PERTAINING TO PATIENTS WHO ARE OR HAVE BEEN ENROLLED IN A CHEMICAL DEPENDENCY/SUBSTANCEABUSE PROGRAM, SOME INFORMATION MAY BE OMITTED. This clinical summary was aggregated from multiple sources. Caution should be exercised in using it in the provision of clinical care. This summary normalizes information from multiple sources, and as a consequence, information in this document may materially change the coding, format and clinical context of patient data. In addition, data may be omitted in some cases. CLINICAL DECISIONS SHOULD BE BASED ON THE PRIMARY CLINICAL RECORDS. [facility]. provides no warranty or guarantee of the accuracy or completeness of information in this document.
[2025-06-21 21:08] LABS: Squamous Epithelial Cells - UA 5-10 SEEN /hpf (5-10)
[2025-06-21 21:09] LABS: Trichomonas 0-5 SEEN /hpf (None Seen)
== END 2025-06-21 22:16 | disposition home or self-care (01) ==
PROVIDERS: Emergency Provider Emergency Medicine; PCP Family Medicine; Visit Provider Emergency Medicine
DX: R10.11 Right upper quadrant pain (principal); R10.31 Right lower quadrant pain; F17.200 Nicotine dependence, unspecified, uncomplicated
CPT/HCPCS: 74177; 80053; 81001; 83690; 84703; 85025; 96374; 96375; 96376; 99283; Q9967; A4216; J2405

== ENCOUNTER 2025-10-25 17:26 | Emergency (ER) | payer MEDICAID, SELFPAY ==
[2025-10-25 17:26] VITALS: BP 127/99; PULSE 91; RESP 18; TEMP 36.2; O2SAT 95; BMI 28.7
--- NOTE | 2025-10-25 17:59 | EX.ED.UPPERE ---
HPI History of Present Illness Chief Complaint: Upper Extremity Injury Informant: patient Narrative Narrative: Patient is a 50-year-old female presenting with right hand pain following an injury caused by her dog. - Incident occurred when her dog, a bullmastiff, jerked the leash wrapped around her R hand, causing her hand to be pulled forcefully. - Reports pain primarily in the right hand and wrist, with the most significant discomfort along the second metacarpal. - Able to bend her wrist and turn her palm up, but experiences difficulty and pain when curling her fingers inward. - Denies pain in the thumb. [facility] Medical History Anxiety Depression Smoker Emphysema lung Essential (primary) hypertension Atherosclerotic heart disease of [place] coronary artery without angina pectoris Stomach ulcer Heart disease Shoulder pain Hemorrhoids Lung disease Arthritis Home Medications ?Medication ?Instructions ?Recorded ?Last Taken ?Type pantoprazole 40 mg tablet,delayed 40 mg PO BID gerd 04/09/14 06/14/23 History release cetirizine 10 mg tablet 10 mg PO DAILY allergies 04/14/20 06/14/23 History gabapentin 400 mg capsule 400 mg PO TID nerve pain 06/17/20 06/17/20 History venlafaxine 150 mg tablet,extended 150 mg PO DAILY depression 06/17/20 06/14/23 History release 24 hr venlafaxine 37.5 mg 50 mg PO DAILY 09/12/24 Unknown History capsule,extended release 24 hr albuterol sulfate 90 mcg/actuation 2 puff inhalation Q4H PRN PRN 12/26/24 Unknown History aerosol inhaler wheezing Allergy/AdvReac Type Severity Reaction Status Date / Time doxycycline Allergy Unknown Verified 10/25/25 17:26 erythromycin base Allergy Chest Verified 10/25/25 17:26 (Erythromycin Base) tightness Penicillins Allergy Unknown Verified 10/25/25 17:26 tramadol HCl (From Ultram) Allergy Swelling Verified 10/25/25 17:26 cefdinir (From Omnicef) AdvReac Other Verified 10/25/25 17:26 risperidone (From Risperdal) AdvReac Unknown Verified 10/25/25 17:26 valacyclovir HCl (From AdvReac Nausea Verified 10/25/25 17:26 Valtrex) Family History Other Arthritis Cancer Diabetes Heart disease Stomach ulcer Surgical History History of cholecystectomy Hx of tubal ligation Hx of nasal septoplasty History of herniorrhaphy Hx of appendectomy History of left heart catheterization (03/16/21) History of ankle surgery Social History Smoking Status: Heavy Smoker (>10/day) substance use type: marijuana and other details: Smokes marijuana, ingests CBD Gummies, but no other substance or IVDU ROS ROS ED Constitutional Constitutional ED: Denies chills or fever(s) Musculoskeletal Musculoskeletal: Reports extremity pain; Denies neck pain Integumentary Denies Abrasions, rash or wounds Neurologic Neurologic: Denies paresthesias or weakness EXAM Physical Exam Const Vital Signs: 10/25/25 17:26 Temperature 97.1 F L Temperature Source Temporal Pulse Rate 91 Respiratory Rate 18 Blood Pressure 127/99 H Blood Pressure Mean 108 Pulse Ox 95 Oxygen Delivery Method Room Air Positive well nourished and well developed General Appearance ED: well developed and NAD Neck full ROM and supple Back/Spine normal ROM and normal to inspection Extremity Extremity Narrative: Right hand: Inspection: No deformities. Limited range of motion of fingers due to pain but able to flex, FDS, FDP and extensors intact every digit. Palpation: Tenderness over second metacarpal and metacarpal head. ROM: Able to flex/extend wrist; able to supinate forearm. Neuro oriented x3, no focal motor deficits and no sensory deficits noted Sensorium / Orientation: alert Psych mental status grossly normal and thought process normal Skin no wounds Rashes: no rashes MDM MDM MDM Narrative Medical decision making narrative: Assessment: The patient is a 50-year-old female presenting for right hand pain after a dog leash jerk injury. Exam reveals focal tenderness over the second metacarpal and metacarpal head without deformity. Three-view right-hand x-ray is normal, ruling out acute fracture or dislocation. The presentation is most consistent with a soft-tissue contusion of the right hand. Plan: - Applied soft wrap to right hand for comfort - Administered single dose NSAID in ED - Provided routine contusion care instructions and reassurance Diagnostics: - Three-view x-ray series of the right hand: normal study; no acute fracture or dislocation. Independently interpreted by me, Angel Luis Bellamy; radiology in agreement. Portions of this note were generated using voice recognition software ([employer]). I have reviewed the contents and every effort has been made to ensure accuracy; however, inadvertent errors in grammar, spelling, punctuation, or word choice may occur, that were not noted before signing the document and should not alter the intended clinical meaning. Discharge Plan Triage Chief Complaint: Upper Extremity Injury ED Provider: Angel Luis Bellamy Dx/Rx/DC Orders Clinical Impression: Contusion of hand, right Instructions: ED Hand Contusion Prescriptions: No Action pantoprazole 40 MG tablet 40 mg PO BID Patient Comments: ACID REFLUX/GERD cetirizine 10 MG tablet 10 mg PO DAILY gabapentin 400 MG capsule 400 mg PO TID venlafaxine 150 MG tablet extended release 24hr 150 mg PO DAILY albuterol sulfate 90 mcg/actuation HFA aerosol inhaler 2 puff INHALATION Q4H PRN PRN (Reason: wheezing) venlafaxine 37.5 mg capsule,extended release 24hr 50 mg PO DAILY Primary Care Provider: Martinez Cohen Referrals: Martinez Cohen MD [Primary Care Provider, Medical] - As Needed Print Language: Croatian Disposition Disposition: Home, Self Care
--- NOTE | 2025-10-25 18:10 | RAD_ITS ---
PROCEDURE: RIGHT HAND MIN 3 VIEWS 10/25/2025 REASON FOR EXAM: INJURY TECHNIQUE: Procedure Code: HORACE Modality: DX Procedure: HAND MIN 3 VIEWS COMPARISON: None. FINDINGS: No acute fracture or dislocation. Alignment is anatomic. Preserved joint spaces. No aggressive osseous lesion. No marked soft tissue swelling or radiopaque foreign body. RAD/Hand Min 3 Views IMPRESSION: No acute fracture or dislocation. Reading Location: [id number]
--- OUTSIDE RECORDS SUMMARY | 2025-10-25 18:11 | XMS RPT_ITS | CCD ---
Author Organization [facility] Care Team Providers Care Manager Visual Name Role Phone PCP, Unknown Unavailable Unavailable Sunny Cha Unavailable Unavailable Afshan Glass Unavailable UnavailMARTINEZ Sanchez Unavailable Unavailable John Tarango Unavailable Unavailable John [...] Provider Martinez Garcia MD Primary Care Provider [phone] ANYI BULLOCK Consulting Unavailable MARTINEZ GARCIA Primary Care Unavailable PROVIDER, UNKNOWN Admitting Unavailable PROVIDER, UNKNOWN Attending Unavailable PROVIDER, UNKNOWN Attending Unavailable MARTINEZ GARCIA Primary Care Unavailable PROVIDER, UNKNOWN Admitting Unavailable Martinez Garcia MD Primary Care Provider Haagen THERAPEUTIC SALES SPECIALIST.Francy COURTNEY Unavailable Suppaicha THERAPEUTIC SALES SPECIALIST.SHERWIN Amita A Unavailable Suppaicha THERAPEUTIC SALES SPECIALIST.SHERWIN, Amita A Unavailable GI BAILEY Attending Unavailable MARTINEZ GARCIA Primary Care Unavailable Dr. Martinez Garcia MD Primary Care Provider Dr. Joseph Tomas MD Emergency Provider [phone] Angel Luis Bellamy Attending Unavailable Rossford, Martinez Primary Care Unavailable Daphne Hernández Admitting Unavailable Daphne Hernández Consulting Unavailable Jona, Singh Attending Unavailable Radha, Martinez Primary Care Unavailable Lisa Marley Attending Unavailable Rossford, Martinez Primary Care Unavailable Daphne Hernández Attending Unavailable Radha, Martinez Primary Care Unavailable Edgar, Daphne Admitting Unavailable Daphne Hernández Consulting Unavailable Jona, Singh Attending Unavailable Jona, Singh Consulting Unavailable Cam Fitzgerald Attending Unavailable Radha, Martinez Primary Care Unavailable Rossford, Martinez Referring Unavailable Radha, Martinez Primary Care Unavailable Joseph Tomas Attending Unavailable Radha, Martinez Primary Care Unavailable Irving Byers Attending Unavailable RADHA, MARTINEZ J Primary Care Unavailable RADHA, MARTINEZ J Referring Unavailable LINDSAY PARKS Attending Unavailable RADHA, MARTINEZ J Attending Unavailable RADHA, MARTINEZ J Primary Care Unavailable RADHA, MARTINEZ J Primary Care Unavailable SUPPAN, AMITA A Referring Unavailable RADHA, MARTINEZ J Primary Care Unavailable SUPPAICHA, AMITA A Referring Unavailable SUPPAICHA, AMITA A Attending Unavailable RADHA, MARTINEZ J Primary Care Unavailable RADHA, MARTINEZ J Primary Care Unavailable SUPPAN, AMITA A Attending Unavailable RADHA, MARTINEZ J Primary Care Unavailable SUPPAN, AMITA A Referring Unavailable RADHA, MARTINEZ J Primary Care Unavailable ALBIN, DEVIN A Referring Unavailable RADHA, MARTINEZ J Primary Care Unavailable SUPPAN, AMITA A Attending Unavailable RADHA, MARTINEZ J Primary Care Unavailable KIM KEBEDE Attending Unavailable RADHA, MARTINEZ J Primary Care Unavailable SUPPAN, AMITA A Referring Unavailable MASCPrakash, DEVIN A Attending Unavailable RADHA, MARTINEZ J Primary Care Unavailable SUPPAN, AMITA A Referring Unavailable RADHA, MARTINEZ J Referring Unavailable RADHA, MARTINEZ J Primary Care Unavailable RADHA, MARTINEZ J Primary Care Unavailable SUPPAN, AMITA A Attending Unavailable RADHA, MARTINEZ J Primary Care Unavailable RADHA, MARTINEZ J Primary Care Unavailable JANELLE LEAHY Attending Unavailable Allergies Allergy Classification Reported Allergen(s) Allergy Type Date of Onset Reaction(s) Facility Cephalosporins (antibiotic) (1 source) cefdinir Drug Allergy 07-11-20 14 GI Upset [facility] cyclobenzaprine (1 source) cyclobenzaprine Drug Allergy 10-08-20 11 Cough [facility] Work Phone: Doxycycline (1 source) Doxycycline Drug Allergy 08-16-20 06 [facility] Work Phone: guaiFENesin / Phenylephrine (1 source) guaiFENesin / Phenylephrine Drug Allergy 10-20-20 06 [facility] Work Phone: Macrolides (antibiotic) (1 source) Erythromycin Drug Allergy 08-16-20 06 Shortness of Breath [facility] Work Phone: Opioid Agonists (1 source) traMADol Drug Allergy 08-16-20 06 Swelling [facility] Penicillins (antibiotic) (1 source) Penicillin G Drug Allergy 08-16-20 06 Intolerance [facility] Work Phone: risperiDONE (1 source) risperiDONE Drug Allergy 08-16-20 06 Swelling [facility] valACYclovir (1 source) valACYclovir Drug Allergy 08-16-20 06 Rash [facility] (1 source) azithromycin Drug Allergy 09-29-20 17 [facility] (5 sources) doxycycline; Translations: [DOXYCYCLINE] [facility] Penicillins Drug allergy (disorder) 09-29-20 17 [facility], Unknown [facility] (1 source) traMADol Drug Allergy 09-29-20 17 [facility] (1 source) valACYclovir Drug Allergy 09-29-20 17 [facility] (20 sources) cefdinir; Translations: [CEFDINIR] Drug Allergy 07-11-20 14 GI Upset [facility] (20 sources) cyclobenzaprine; Translations: [CYCLOBENZAPRINE HCL] Drug Allergy 10-08-20 11 Cough [facility] Work Phone: (20 sources) Doxycycline Drug Allergy 08-16-20 06 Unknown [facility] Work Phone: (20 sources) Erythromycin; Translations: [ERYTHROMYCIN] Drug Allergy 08-16-20 06 Shortness of Breath [facility] Work Phone: (20 sources) guaiFENesin / Phenylephrine; Translations: [PHENYLEPHRINE-GUA IFENESIN] Drug Allergy 10-20-20 06 [facility] Work Phone: (20 sources) Penicillin G; Translations: [PENICILLIN G] Drug Allergy 08-16-20 06 Intolerance [facility] Work Phone: (20 sources) risperiDONE; Translations: [RISPERIDONE] Drug Allergy 08-16-20 06 Swelling [facility] Work Phone: (20 sources) traMADol; Translations: [TRAMADOL HCL] Drug Allergy 08-16-20 06 Swelling [facility] Work Phone: (20 sources) valACYclovir; Translations: [VALACYCLOVIR HCL] Drug Allergy 08-16-20 06 Rash [facility] Work Phone: (7 sources) Penicillins Allergy to substance 10-08-20 Unknown [facility] (1 source) cefdinir Drug Allergy 06-21-20 [facility] (1 source) Erythromycin Drug Allergy 06-21-20 [facility] (1 source) risperiDONE Drug Allergy 06-21-20 [facility] (1 source) traMADol Drug Allergy 06-21-20 [facility] (1 source) valACYclovir Drug Allergy 06-21-20 [facility] Medications Current Medications Medication Drug [...] on above: Take 2 tablets by mo [facility] every 8 hours as needed for pain. acetaminophen 325 mg / oxyCODONE hydrochloride 5 mg oral tablet (1 source) Opioid Agonist Start: 12-02-2022 End: 12-09-2022 take 1 tablet by mouth every eight hours as needed oxyCODONE-acetamino phen (PERCOCET) 5-325 mg tablet Indications: Left hand pain Take 1 tablet by mouth every 8 hours as needed for up to 7 days. 15 tablet 0 12/02/2022 12/09/2022 Active Comment on above: [facility] hours as needed for up to 7 days. [id number] 200 actuat albuterol 0.09 mg/actuat metered dose inhaler (20 sources) beta2-Adrenergic Agonist Start: 12-26-2024 Albuterol Sulfate 90 mcg/actuation HFA aerosol inhaler Active 2 NMA INHALATION EVERY 4 HOURS NEEDED as needed for wheezing December 26, 2024 1:00am Start: 10-14-2021 End: 10-26-2024 take 2 puff(s) [...] spray (20 sources) Anticholinergic, beta2-Adrenergic Agonist Start: take 20-100 ug by inhalation four times daily as needed COMBIVENT RESPIMAT 20-100 mcg/actuation inhaler INHALE 1 PUFF INSTRUCTED FOUR TIMES DAILY NEEDED. 20 g 5 10/16/2021 Active Comment on above: INHALE 1 PUFF INS TRUCTED FOUR TIMES DAILY NEEDED. atorvastatin 40 mg oral tablet (20 sources) HMG-CoA Reductase Inhibitor Start: 019 End: 026 take 1 tablet by mouth once daily atorvastatin (LIPITOR) 40 mg tablet Take 1 tablet by mouth once daily. 90 tablet 3 07/03/2025 07/03/2026 Active Comment on above: Take 1 tablet by [facility] once daily. azithromycin 250 mg oral tablet (3 sources) Macrolide Antimicrobial Start: 025 End: 025 take 2 tablets by mouth once daily, [...] on above: Take 2 tablets by mo [facility] once daily for 1 day, THEN 1 tablet once daily for 4 days. carvedilol 3.125 mg oral tablet (1 source) alpha-Adrenergic Nette, beta-Adrenergic Nette Start: 2 End: 2 take 1 tablet by mouth twice daily carvedilol (COREG) 3.125 mg tablet TAKE 1 TABLET BY MOUTH TWICE A DAY 180 tablet 3 01/06/2022 01/27/2022 Discontinued (Other) Comment on above: TAKE 1 TABLET BY [facility] TWICE A DAY cetirizine hydrochloride [...] once daily. 90 tablet 1 03/26/2025 Active Comment on above: Take one(1) tablet d aily. ferrous sulfate 325 mg oral tablet (16 sources) Start: 2024 End: 2024 take 1 tablet by mouth once daily ferrous sulfate 325 mg (65 mg iron) tablet Indications: Other iron deficiency anemia Take 1 tablet by mouth once daily. 90 tablet 1 01/29/2025 07/28/2025 Active gabapentin 400 mg oral capsule (20 sources) Anti-epileptic Agent Start: 2019 End: 2025 take 1 capsule by mouth three times daily gabapentin (NEURONTIN) 400 mg capsule Take 1 capsule by mouth three times a day for 180 days. 270 capsule 1 06/27/2025 12/24/2025 Active Comment on above: Take 1 capsule by mo [facility] three times daily for 90 days. Take 1 capsule by mo ut three times daily for 180 days. Take 1 capsule by mo ut three times a day for 180 days. levoFLOXacin 500 mg oral tablet (4 sources) Quinolone Antimicrobial Start: 2024 End: 2024 take 1 tablet by mouth once daily levoFLOXacin (LEVAQUIN) 500 mg tablet Take 1 tablet by mouth once daily for 6 days. 6 tablet 12/29/2024 01/04/2025 Active methylPREDNISolone (3 sources) Corticosteroid Start: 2024 End: 2024 methylPREDNISolone (MEDROL, ANTONY,) 4 mg Dose-Pack Indications: Respiratory infection Follow dosing instructions, take with food. 21 tablet 01/03/2025 01/09/2025 Active Start: 09-20-2024 End: 09-26-2024 take 1 tablet by mouth once Methylprednisolone (Medrol (Antony)) 4 mg tablets,dose pack Discontinued 4 mg PO per package directions 21 6 0 September 20, 2024 1:00am September 25, 2024 1:00am September 26, 2024 1:17am metroNIDAZOLE 500 mg oral tablet (15 sources) Nitroimidazole Antimicrobial Start: 07-09-2025 End: 07-16-2025 take 1 tablet by mouth twice daily metroNIDAZOLE (FLAGYL) 500 mg tablet Take 1 tablet by mouth two times a day for 7 days. 14 tablet 07/09/2025 07/16/2025 Active Start: 06-18-2025 End: 09-16-2025 metroNIDAZOLE (METROGEL) 0.7 5 % Topical Gel Indications: Rosacea Apply to affected area two times a day. 45 g 2 06/18/2025 09/16/2025 Active Start: 06-18-2025 End: 06-18-2025 metroNIDAZOLE (METROGEL) 1 % Topical Gel Indications: Rosacea Apply 1 application to affected area once daily. avoid contact w/ eyes- to face (0.5 Gm) 60 g 2 06/18/2025 06/18/2025 Discontinued (Clinical Decision) nitroglycerin 0.4 mg sublingual tablet (20 sources) [...] sources) Proton Pump Inhibitor Start: 04-09-2014 End: 06-26-2025 take 1 tablet by mouth twice daily before mealtime pantoprazole DR (PROTONIX) 40 mg tablet TAKE 1 TABLET BY MOUTH ON AN EMPTY STOMACH 1/2 HOUR BEFORE A MEAL TWICE DAILY 180 tablet 1 06/27/2025 Active Comment on above: TAKE 1 TABLET BY HARJIT TH ON AN EMPTY STOMACH 1/2 HOUR BEFORE A MEAL TWICE DAILY polyethylene glycol [id number] [id number] mg powder for oral solution (2 sources) [...] on above: Take 2 tablets by mo [facility] once daily for 5 days. Take 1 tablet by harjit once daily for 5 days. sulfamethoxazole 800 mg / trimethoprim 160 mg oral tablet (6 sources) Dihydrofolate Reductase Inhibitor Antibacterial, Sulfonamide Antimicrobial Start: 01-15-20 End: 01-29-20 take 1 tablet by mouth twice daily sulfamethoxazole-t rimethoprim (BACTRIM DS) 800-160 mg per tablet Indications: Candidiasis , Other acute recurrent sinusitis Take 1 tablet by mouth two times a day for 14 days. 28 tablet 01/14/2025 01/28/2025 Active Start: 09-20-2024 End: 09-27-2024 Sulfamethoxazole-Trimethopri m (Bactrim Ds) 800-160 mg tablet Discontinued 1 {tbl} PO Q12H 14 7 0 September 20, 2024 1:00am September 26, 2024 1:00am September 27, 2024 1:09am Start: 11-29-2022 End: 12-03-2022 take 1 tablet by mouth every twelve hours sulfamethoxazole-trimethoprim (BACTRIM DS,SEPTRA DS) 800-160 mg per tablet Take 1 tablet by mouth every 12 hours for 4 days. 8 tablet 0 11/29/2022 12/03/2022 Active Comment on above: Take 1 tablet by harjit every 12 hours for 4 days. tiZANidine [...] by mouth once daily. 90 tablet 1 06/27/2025 12/24/2025 Active Start: 04-19-2024 End: 04-24-2025 take 1 capsule by mouth once daily Venlafaxine 37.5 mg capsule,extended release 24hr Active 50 mg PO DAILY September 12, 2024 1:00am Start: 03-27-2024 End: 04-19-2024 take 1 tablet by mouth three times daily venlafaxine (EFFEXOR) 50 mg tablet Indications: Anxiety state Take 1 tablet by mouth three times a day. 30 tablet 2 03/27/2024 04/19/2024 Discontinued Start: 08-17-2022 End: 09-25-2025 take 1 capsule by mouth once daily venlafaxine ER (EFFEXOR XR) 150 mg 24 hr capsule Indications: Adjustment disorder with anxiety , Grief reaction with prolonged bereavement Take 1 capsule by mouth once daily. in addition to Venlafaxine 50 mg tablet daily 90 capsule 1 06/27/2025 09/25/2025 Active Start: 07-10-2021 End: 02-15-2022 take 1 capsule by mouth once daily venlafaxine ER (EFFEXOR XR) 150 mg 24 hr capsule Indications: Adjustment disorder with anxiety , Grief reaction with prolonged bereavement Take 1 capsule by mouth once daily. 30 capsule 5 07/10/2021 02/15/2022 Discontinued Start: 06-17-2020 take 1 tablet by harjit once daily Venlafaxine 150 MG tablet extended release 24hr Active 150 mg PO DAILY June 17, 2020 12:00am depression Comment on above: Take 1 capsule by mo [facility] once daily. Completed/Discontinued Medications Medication Drug Class(es) Dates Sig (Normalized) Sig (Original) acetaminophen 325 mg / HYDROcodone bitartrate 5 mg oral tablet (9 sources) Opioid Agonist Start: 12-04-2019 End: 12-06-2019 Hydrocodone-Acetami nophen 1 TABLET tablet Discontinued 1 {tbl} PO EVERY 4 HOURS NEEDED as needed for Pain 10 2 0 December 04, 2019 December 05, 2019 1:00am December 06, 2019 1:08am Abdominal pain Unspecified abdominal pain Start: 12-04-2019 End: 12-06-2019 take 1 tablet by mouth every four hours as needed Hydrocodone-Acetaminophen Discontinued 1 TABLET PO EVERY 4 HOURS NEEDED 10 2 December 04, 2019 December 06, 2019 12:08am aspirin 81 mg oral tablet (20 sources) Platelet Aggregation Inhibitor, Nonsteroidal Anti-inflammatory Drug Start: 10-03-2024 End: 06-21-2025 take 1 capsule by mouth once daily Aspirin 81 mg capsule Discontinued 81 mg PO DAILY 1 0 October 03, 2024 1:00am June 21, 2025 7:15pm Start: 03-16-2021 End: 01-25-2025 take 1 tablet by mouth once daily aspirin, enteric coated (ASPIRIN, ENTERIC COATED) 81 mg EC tablet TAKE 1 TABLET BY MOUTH EVERY DAY 30 tablet 11 03/25/2023 01/25/2025 Discontinued Comment on above: Take 1 tablet by harjit th once daily. TAKE 1 TABLET BY HARJIT TH EVERY DAY benzonatate 100 mg oral capsule (10 sources) Non-narcotic Antitussive Start: 025 End: take 1 capsule by mouth every eight hours as needed benzonatate (TESSALON PERLE) 100 mg capsule Take 1 capsule by mouth three times a day as needed for cough. 21 capsule 12/17/2024 01/25/2025 Discontinued busPIRone hydrochloride 15 mg oral tablet (20 sources) Start: 020 End: take 1 tablet by mouth three times daily Buspirone 15 MG tablet Discontinued 15 mg PO THREE TIMES A DAY June 17, 2020 12:00am April 11, 2024 12:35am anxiety Comment on above: Take 1 tablet by harjit th three times daily. Take 1 tablet by harjit th three times a day. cyclobenzaprine hydrochloride 10 mg oral tablet (8 sources) Muscle Relaxant Start: 022 End: 08-08-2 023 take 1 tablet by mouth three times daily as needed for muscle spasms Cyclobenzaprine 10 mg tablet Discontinued 10 mg PO THREE TIMES A DAY as needed for muscle spasm June 25, 2022 12:00am June 14, 2023 9:55pm docusate sodium 100 mg oral capsule (20 sources) Start: End: take 1 capsule by mouth every twelve hours as needed docusate sodium (COLACE) 100 mg capsule Take 1 capsule by mouth twice daily as needed for constipation. 60 capsule 11/29/2022 10:14 AM EST 11/29/2022 01/25/2025 Discontinued Comment on above: Take 1 capsule by mo [facility] twice daily as needed for constipation. fluconazole 150 mg oral tablet (8 sources) Azole Antifungal Start: End: take 1 tablet by mouth once fluconazole (DIFLUCAN) 150 mg tablet Take 1 tablet by mouth one time only for 1 dose. 1 tablet 07/09/2025 07/09/2025 Start: 01-14-2025 End: 01-17-2025 take 1 tablet by mouth once daily fluconazole (DIFLUCAN) 100 mg tablet Indications: Candidiasis , Other acute recurrent sinusitis Take 1 tablet by mouth once daily for 3 days. 3 tablet 01/14/2025 01/17/2025 Active Start: 11-14-2023 End: 04-11-2024 Fluconazole 150 mg tablet Discontinued 150 mg PO Every 3 Days 1 November 14, 2023 1:00am April 11, 2024 12:35am 12 hr guaiFENesin 600 mg extended release oral tablet (7 sources) Start: 01-03-2025 End: 02-02-2025 take 2 tablets by mouth twice daily as needed guaiFENesin (MUCINEX) 600 mg 12 hr tablet Indications: Respiratory infection Take 2 tablets by mouth two times a day as needed for cold/allergy symptoms. 60 tablet 01/03/2025 01/25/2025 Discontinued hydroCHLOROthiazide 12.5 mg oral capsule (18 sources) Thiazide Diuretic Start: 04-09-2014 End: 02-14-2018 take 1 capsule by mouth once daily Hydrochlorothiazide 12.5 mg capsule Discontinued 12.5 mg PO DAILY 30 February 14, 2018 4:30pm February 14, 2018 4:32pm 24 hr isosorbide mononitrate 30 mg extended release oral tablet (2 sources) Nitrate Vasodilator Start: 12-27-2024 End: 06-21-2025 Isosorbide Mononitrate 30 mg tablet extended release 24 hr Discontinued 30 mg PO DAILY 30 December 27, 2024 2:16pm June 21, 2025 7:15pm Hold for SBP less than 130 mmHg Start: 10-03-2024 End: 12-27-2024 take 1 tablet by mouth once daily, then take 1 tablet by mouth every twenty-four hours Isosorbide Mononitrate 30 mg tablet extended release 24 hr Discontinued 30 mg PO DAILY 30 October 03, 2024 1:00am December 27, 2024 2:16pm lisinopril 10 mg oral tablet (9 sources) Angiotensin Converting Enzyme Inhibitor Start: 03-16-2021 End: 06-14-2023 take 1 tablet by mouth once daily Lisinopril 10 mg tablet Discontinued 10 mg PO DAILY March 16, 2021 12:00am June 14, 2023 9:55pm magnesium oxide 400 mg oral tablet (16 sources) Start: 01-27-2022 End: 11-03-2022 take 1 tablet by mouth twice daily magnesium oxide 400 mg magnesium tab Take 1 tablet by mouth twice daily. 60 tablet 01/27/2022 11/03/2022 Discontinued Comment on above: Take 1 tablet by harjit th twice daily. 24 hr metoprolol succinate 25 mg extended release oral tablet (16 sources) beta-Adrenergic Nette Start: 03-29-2024 End: 01-25-2025 take 0.5 tablet by mouth once daily metoprolol succinate ER (TOPROL XL) 25 mg 24 hr tablet Indications: Coronary artery disease involving [place] coronary artery of [place] heart with angina pectoris (HCC) , Primary hypertension , Raynaud's phenomenon without gangrene Take 0.5 tablets by mouth once daily. 30 tablet 2 03/29/2024 01/25/2025 Discontinued naproxen 500 mg oral tablet (19 sources) Nonsteroidal Anti-inflammatory Drug Start: 12-08-2023 End: 09-12-2024 take 1 tablet by mouth twice daily as needed for pain Naproxen (Naprosyn) 500 mg tablet Discontinued 500 mg PO TWICE A DAY as needed for pain December 08, 2023 1:00am September 13, 2024 12:57am Start: 06-25-2022 End: 06-14-2023 take 1 tablet by mouth twice daily as needed for pain Naproxen (Naprosyn) 500 mg tablet Discontinued 500 mg PO TWICE A DAY as needed for pain June 25, 2022 12:00am June 14, 2023 9:55pm Start: 11-20-2018 End: 04-06-2019 take 1 tablet by mouth twice daily as needed Naproxen 500 MG tablet Discontinued 500 mg PO TWICE DAILY NEEDED November 20, 2018 1:00am April 06, 2019 10:56am omeprazole 20 mg delayed release oral capsule (6 sources) Proton Pump Inhibitor Start: 09-03-2021 End: 03-02-2022 take 1 capsule by mouth once daily before breakfast omeprazole (PRILOSEC) 20 mg capsule Take 1 capsule by mouth daily before breakfast. 1/2 hr before meal. 30 capsule 2 09/03/2021 03/02/2022 Discontinued Comment on above: Take 1 capsule by mo [facility] daily before breakfast. 1/2 hr before meal. ondansetron 4 mg oral tablet (11 sources) Serotonin-3 Receptor Antagonist Start: 05-05-2022 End: 06-14-2023 take 1 tablet by mouth every six hours as needed for nausea and vomiting Ondansetron Hcl 4 mg tablet Discontinued 4 mg PO EVERY 6 HOURS as needed for nausea and vomiting May 05, 2022 12:00am June 14, 2023 9:55pm Start: 07-06-2021 End: 01-27-2022 take 1 tablet [...] chloride 20 meq extended release oral tablet (7 sources) Start: 10-08-20 End: 06-14-20 take 2 tablets by mouth once daily Potassium Chloride 20 mEq tablet extended release Discontinued 40 meq PO DAILY 2 October 08, 2022 1:00am June 14, 2023 9:55pm Start: 10-08-2022 End: 06-14-2023 take 40 mEq by mouth once daily Potassium Chloride Discontinued 40 MEQ PO DAILY October 08, 2022 12:00am June 14, 2023 8:55pm 125 ml sodium chloride 9 mg/ ml prefilled syringe (6 sources) Start: 11-24-2020 End: 02-23-2022 sodium chloride 0.9 % (flush ) 10 mL (BD POSIFLUSH) Problems Active Problems Problem Classification Problem Date Documented Da te Episodic/Chronic Abdominal pain (20 sources) Right flank pain; Translations: [Unspecified abdominal pain] Onset: 8 Resolved: 2 05-13-2022 Episodic Adjustment disorders (20 sources) Grief finding; Translations: [...] Translations: [Chronic obstructive pulmonary disease, unspecified] Onset: 3 07-21-2020 Chronic Chronic obstructive pulmonary disease and bronchiectasis (1 source) Chronic obstructive pulmonary disease and bronchiectasis; Translations: [COPD with chronic bronchitis (HCC)] Onset: 3 Complications of surgical procedures or medical care (20 sources) Subcutaneous emphysema resulting from a procedure; Translations: [Emphysema (subcutaneous) resulting from a procedure, initial encounter] Onset: 3 07-21-2020 Episodic Coronary atherosclerosis and other heart disease (20 sources) Coronary arteriosclerosis; Translations: [Atherosclerotic heart disease of [place] coronary artery without angina pectoris] Onset: 4 09-03-2021 Chronic Deficiency and other anemia (10 sources) Anemia; Translations: [Anemia, unspecified] Episodic Deficiency and other anemia (1 source) Normocytic anemia; Translations: [Anemia, unspecified] 03-29-2024 Episodic Deficiency and other anemia (3 sources) Iron deficiency anemia; Translations: [Other iron deficiency anemias] 01-29-2025 Episodic Deficiency and other anemia (1 source) Iron deficiency anemia, unspecified; Translations: [Iron deficiency anemia, unspecified iron deficiency anemia type] Onset: 5 Episodic Diseases of white blood cells (18 sources) Leukocytosis; Translations: [Elevated white blood cell count, unspecified] Onset: 5 Chronic Disorders of lipid metabolism (20 sources) Hyperlipidemia; Translations: [Hyperlipidemia, unspecified] Onset: 4 Chronic Esophageal disorders (20 sources) Gastroesophageal reflux disease; Translations: [Gastro-esophageal reflux disease without esophagitis] Onset: 1 Chronic Essential hypertension (20 sources) Essential hypertension; Translations: [Essential (primary) hypertension] Onset: 8 Chronic Fluid and electrolyte disorders (20 sources) Hypokalemia; Translations: [Hypokalemia] Episodic Gastroduodenal ulcer (except hemorrhage) (20 sources) Peptic ulcer; Translations: [Peptic ulcer, site unspecified, unspecified as acute or chronic, without hemorrhage or perforation] Onset: 1 11-02-2021 Chronic Gastrointestinal hemorrhage (8 sources) Lower gastrointestinal hemorrhage; Translations: [Gastrointestinal hemorrhage, unspecified] Onset: 5 06-14-2023 Episodic Genitourinary symptoms and ill-defined conditions (10 sources) Abnormal urinalysis; Translations: [Unspecified abnormal findings in urine] Episodic Headache; including migraine (2 sources) Sinus headache; Translations: [Headache] Onset: 5 12-26-2024 Episodic Hemorrhoids (5 sources) Internal hemorrhoids; Translations: [Other hemorrhoids] 06-14-2023 Episodic Immunizations and screening for infectious disease (13 sources) Suspected disease caused by 2019-nCoV; Translations: [Suspected 2019 novel coronavirus infection] Onset: 5 03-16-2021 Episodic Malaise and fatigue (5 sources) Fatigue; Translations: [Other fatigue] Episodic Menopausal disorders (3 sources) Menorrhagia; Translations: [Excessive bleeding in the premenopausal period] Onset: 5 08-04-2023 Chronic Menstrual disorders (8 sources) Menstrual cramp; Translations: [Dysmenorrhea, unspecified] 08-01-2023 Chronic Mood disorders (8 sources) Moderate major depression ; Translations: [Major depressive disorder, single episode, moderate] Onset: 5 03-29-2024 Chronic Mood disorders (1 source) Emotional lability; Translations: [Mood changes] Onset: 5 Episodic Neoplasms of unspecified nature or uncertain behavior (1 source) Thrombocytosis; Translations: [Thrombocytosis] Onset: 5 Chronic Neoplasms of unspecified nature or uncertain behavior (2 sources) Thrombocytosis; Translations: [Thrombocytosis] 01-25-2025 Episodic Nutritional deficiencies (4 sources) Serum iron low; Translations: [Iron deficiency] Onset: 5 07-03-2025 Episodic Open wounds of extremities (9 sources) Laceration of left little finger; Translations: [Laceration without foreign body of left little finger without damage to nail, initial encounter] 03-16-2021 Episodic Other circulatory disease (20 sources) Raynaud's phenomenon; Translations: [Raynaud's syndrome without gangrene] 07-21-2020 Chronic Other circulatory disease (1 source) Raynaud's syndrome without gangrene; Translations: [Raynaud's phenomenon without gangrene] Onset: 0 Chronic Other connective tissue disease (1 source) [...] 9 04-27-2019 Chronic Other female genital disorders (9 sources) Abnormal uterine bleeding; Translations: [Abnormal uterine and vaginal bleeding, unspecified] 03-16-2021 Chronic Other female genital disorders (1 source) Benign endometrial hyperplasia; Translations: [Simple endometrial hyperplasia without atypia] Onset: 9 Chronic Other female genital disorders (9 sources) Polyp of corpus uteri; Translations: [Polyp of corpus uteri] 03-16-2021 Episodic Other female genital disorders (1 source) Vaginal discharge; Translations: [Other specified noninflammatory disorders of vagina] 07-05-2025 Episodic Other female genital disorders (2 sources) Other specified noninflammatory disorders of vagina; Translations: [Vaginal dryness] Onset: 5 Episodic Other infections; including parasitic (1 source) Urogenital infection by Trichomonas vaginalis; Translations: [Urogenital trichomoniasis, unspecified] 09-21-2024 Episodic Other infections; including parasitic (1 source) Infection by Trichomonas; Translations: [Trichomoniasis, unspecified] 07-09-2025 Episodic Other inflammatory condition of skin (2 sources) Rosacea; Translations: [Rosacea, unspecified] 06-18-2025 Chronic Other inflammatory condition of skin (1 source) Rosacea, unspecified; Translations: [Rosacea] Onset: Chronic Other lower respiratory disease (1 source) [...] left elbow] Episodic Other non-traumatic joint disorders (2 sources) Anterior knee pain; Translations: [Pain in right knee] 12-08-2023 Episodic Other nutritional; endocrine; and metabolic disorders (2 sources) Hypomagnesemia; Translations: [Hypomagnesemia] Chronic Other nutritional; endocrine; and metabolic disorders (1 source) Hypomagnesemia; Translations: [Hypomagnesemia] Onset: 5 Chronic Other screening for suspected conditions (not mental disorders or infectious disease) (20 sources) Patient encounter status; Translations: [Encounter for screening mammogram for malignant neoplasm of breast] Onset: 8 Resolved: 4 Episodic Other skin disorders (1 source) Finding of color of limb; Translations: [Disorder of pigmentation, unspecified] 12-08-2023 Episodic Other skin disorders (1 source) Generalized hyperhidrosis; Translations: [Chronic night sweats] Onset: 5 Episodic Other upper respiratory disease (1 source) Congestion of nasal sinus; Translations: [Nasal congestion] Episodic Other upper respiratory infections (6 sources) Acute sinusitis, unspecified; Translations: [Recurrent acute sinusitis] Onset: 5 01-14-2025 Episodic Otitis media and related conditions (1 source) Acute otitis media; Translations: [Otitis media, unspecified, unspecified ear] 12-17-2024 Episodic Pneumonia (except that caused by tuberculosis or sexually transmitted disease) (9 sources) Pneumonia; Translations: [Pneumonia, unspecified organism] 06-18-2020 Episodic Residual codes; unclassified (9 sources) Tobacco user; Translations: [Tobacco use] 04-12-2019 Episodic Residual codes; unclassified (2 sources) Livedo reticularis; Translations: [Pallor] 12-08-2023 Episodic Residual codes; unclassified (1 source) Flushing; Translations: [Hot flashes] Onset: 5 Episodic Screening and history of mental health and substance abuse codes (1 source) Encounter for screening for depression; Translations: [Screening for depression] Onset: 5 Episodic Septicemia (except in labor) (9 sources) Sepsis; Translations: [Sepsis, unspecified organism] 03-16-2021 Episodic Sprains and strains (9 sources) Low back strain; Translations: [Strain of muscle, fascia and tendon of lower back, initial encounter] 11-21-2018 Episodic Substance-related disorders (20 sources) Tobacco user; Translations: [Nicotine dependence, unspecified, uncomplicated] Onset: 6 Resolved: 5 08-30-2018 Chronic Superficial injury; contusion (1 source) Abrasion of cornea of right eye; Translations: [Injury of conjunctiva and corneal abrasion without foreign body, right eye, initial encounter] 04-19-2024 Episodic Syncope (8 sources) Syncope; Translations: [Syncope and collapse] Onset: 5 Episodic Unclassified (1 source) Unknown / UNK(Unknown) Onset: 8 Past or Other Problems Problem Classification Problem Date Documented Da te Episodic/Chronic Coma; stupor; and brain damage (3 sources) Loss of consciousness; Translations: [Unspecified coma] Onset: 12-27-2024 01-04-2025 Episodic Gastritis and duodenitis (20 sources) Gastritis; [...] Translations: [Respiratory infection] Onset: 01-03-2025 Episodic Other skin disorders (20 sources) Post-inflammatory [...] use, unspecified, uncomplicated] Onset: 06-08-2018 06-08-2018 Episodic Unclassified (1 source) Patient encounter status 02-12-2025 Viral infection (20 sources) Herpes simplex; Translations: [Herpesviral infection, unspecified] Onset: 03-18-2016 Resolved: 04-27-2017 04-27-2017 Episodic Results Test Name Value Interpretation Reference Range Facility BACTERIAL VAGINOSIS NAATon 1 Lactobacillus crispatus+gasseri+goldstein ii + Gardnerella vaginalis + Atopobium vaginae rRNA ARNOLDO+probe Ql (Vag fld) Detected Abnormal Not detected [facility] Comment on above: Order Comment: Speci men Type: SWAB Ordering Facility: [facility] Address: [address] [place] [address] Performed By: #### 3 6902-5, BVAMP #### [facility] CLIA [id number] [address] [place] [address] [place] C. trachomatis+N. gonorrhoea e DNA ARNOLDO+probe Ql (Unsp spec)on 08-30-2025 C. trachomatis rRNA ARNOLDO+probe Ql (Unsp spec) Not detected Normal Not detected [facility] Comment on above: Order Comment: Speci men Type: SWAB Ordering Facility: [facility] Address: [address] [place] [address] Performed By: #### 3 6902-5, BVAMP #### [facility] CLIA [id number] [address] [place] [address] [place] N. gonorrhoeae rRNA ARNOLDO+probe Ql (Unsp spec) Not detected Normal Not detected [facility] Comment on above: Order Comment: Speci men Type: SWAB Ordering Facility: [facility] Address: [address] [place] [address] Performed By: #### 3 6902-5, BVAMP #### [facility] CLIA [id number] [address] [place] [address] [place] CRISTIANO/TRICHOMONAS NAATon 1 C. glabrata RNA ARNOLDO+probe Ql (Vag fld) Detected Abnormal Not detected [facility] Comment on above: Order Comment: Speci men Type: SWABOrdering Facility: [facility] Address: [address] [place] [address] Performed By: #### C VTV ####[facility] [id number] [place] [address] [place] Cristiano sp DNA ARNOLDO+probe Ql (Vag fld) Detected Abnormal Not detected [facility] Comment on above: Order Comment: Speci men Type: SWABOrdering Facility: [facility] Address: [address] [place] [address] Result Comment: The Cristiano species group target includes C. albicans, C. tropicalis, C. parapsilosis, and C. dubliniensis. Performed By: #### C VTV ####[facility] [id number] [address] T. vaginalis DNA ARNOLDO+probe Ql (Unsp spec) Not detected Normal Not detected [facility] Comment on above: Order Comment: Speci men Type: SWABOrdering Facility: [facility] Address: [address] [place] [address] Performed By: #### C VTV ####[facility] [id number] [address] CNOVon 08-30-2025 CNOV Office Visit (OBGYWM ) BEV WEBB ([id number]) 1975 F Date Time Provider Department 08/30/25 11:30 AM JANELLE LEAHY OBGYWM During your visit today, we recorded the following information about you: Blood pressure Weight Height Last Period 138/92 74.8 kg 1.56 m 01/10/25 Janelle Leahy APRN.CNM 08/30/2025 12:32 PM Signed Treater Helper offered: Patient declines. Pablo is a 50 year old who presents for an annual gynecologic exam with complaints, menopausal symptoms. Still get period: No Last period was January 2025 Menopause symptoms: Hot flashes; Night sweats; Vaginal dryness- mood changes Time with current partner: 3yrs Number of lifetime partners: 15 control frequency: Never HPV vaccine: Unsure; HPV:N/A Last pap smear: 03/20/2020 History of abnormal pap: Yes, history of abnormal PAP smears Bothersome pelvic pain: Yes Last mammogram: 2015 - next schedule today after annual exam Patient concerns for STD exposure: Yes: Recent +Trich- treated and needs CAT[facility] OB History Gravida2 Para1 Term1 Preterm0 AB1 Living1 SAB1 IAB0 Ectopic0 Multiple0 Live Births0 Comment: 1 vaginal delivery [place] History LMP: 01/10/2025, Having periods Age at Menarche: 14 Age at First : Age at Menopause: [place] History Comments: Sexual Activity: Yes; Male Contraception: Tubal Ligation, None PAST MEDICAL HISTORY Diagnosis Date Abnormal mammogram, unspecified LEFT BREAST Abnormal Pap smear and cervical HPV (human papillomavirus) CAD (coronary artery disease) 2103 diffuse moderate CAD in the left main and RCA-40-50%, seeing Dr. Chase Centrilobular emphysema (HCC) Chlamydia 1994 Chronic cholecystitis 08/24/2007 Chronic depressive personality disorder Chronic gastric ulcer without mention of hemorrhage, perforation, without mention of obstruction Coitus painful for female 2022 COPD with chronic bronchitis (HCC) Coronary artery disease involving [place] coronary artery of [place] heart with angina pectoris Endometriosis 1998 Generalized anxiety disorder Hemorrhoids History of methicillin resistant staphylococcus aureus (MRSA) HTN (hypertension) Hyperlipidemia Incisional hernia without mention of obstruction or gangrene Iron deficiency anemia, unspecified iron deficiency anemia type Irritable bowel syndrome Lumbago Mixed hyperlipidemia Ovarian cyst 1998 PONV (postoperative nausea and vomiting) Raynaud's phenomenon (by history or observed) Tobacco use disorder, continuous Daily smoker since age 16. Urogenital trichomoniasis 2024 PAST SURGICAL HISTORY Procedure Laterality Date APPENDECTOMY CERVIX UTERI CONIZA LP ELCTRO EXCI 1996 COLPOSCOPY CERVIX VAG LOOP ELTRD BX CERVIX 2019 ENDOMETRIAL BX W/WO ENDOCERVIX BX W/O DILAT [...] Other All through my father's family. SOCIAL HISTORY Social History Tobacco Use Smoking status: Every Day Current packs/day: 1.00 Average packs/day: 1 pack/day for 34.6 years (34.6 ttl pk-yrs) Types: Cigarettes Start date: 01/20/1991 Smokeless tobacco: Never Tobacco comments: Father smoked in childhood home, currently lives with a smoker who is willing to quit with patient. Vaping Use Vaping status: Never Used Substance Use Topics Alcohol use: No Drug use: Yes Types: Marijuana Comment: Smokes 2-3 times a week REVIEW OF SYSTEMS Abdomen: No abdominal pain, nausea, vomiting, diarrhea, or constipation. Positive for bloating and stomach upset all the time. Bladder: No dysuria, gross hematuria, urinary frequency, urinary urgency, or incontinence. Breast: No breast lumps, nipple d/c, overlying skin changes, redness or skin retraction and Positive for soreness. Allergies and current medication updated:Yes SENSITIVE EXAM: The sensitive examination (more content not included)... Normal [facility] HIGH RISK HUMAN PAPILLOMA ADARSH (HPV), PCR FOR DETECTION AND GENOTYPINGon 08-30-2025 HPV 16 Ag Ql (Unsp spec) Not detected Normal Not detec [facility] Comment on above: Order Comment: Speci men Type: FLUID SPECIMEN Ordering Facility: [facility] Address: [address] [place] [address] Performed By: #### H PVHRT #### [facility] CLIA [id number] [address] [place] [address] [place] HPV 18 Ag Ql (Unsp spec) Not detected Normal Not detec jamal [facility] Comment on above: Order Comment: Speci men Type: FLUID SPECIMEN Ordering Facility: [facility] Address: [address] [place] [address] Performed By: #### H PVHRT #### [facility] CLIA [id number] [address] [place] [address] [place] HPV 31+33+35+39+45+51+52+56+ 58+59+66+68 DNA ARNOLDO+probe Ql (Cvx) Not detected Normal Not detected [facility] Comment on above: Order Comment: Speci men Type: FLUID SPECIMEN Ordering Facility: [facility] Address: [address] [place] [address] Result Comment: High Risk HPV Other Type includes HPV types 31, 33, 35, 39, 45, 51, 52, 56, 58, 59, 66 and 68. Performed By: #### H PVHRT #### [facility] CLIA [id number] [address] [place] [address] [place] ROB SCREENING W TOMOon 08-30 ROB SCREENING W [place] * * *Final Report* * * DATE OF EXAM: Aug 30 2025 1:39PM [facility] 0582 - ROB SCREENING W [place] / PROCEDURE REASON: Encounter for screening mammogram for breast cancer * * * * Physician Interpretation * * * * RESULT: [place] [address] [place] [address] #[id number] - ROB SCREENING W [place] HISTORY: 50 year-old patient presents for screening. No current complaints. Patient states no personal history of breast cancer. COMPARISON STUDIES: The present examination has been compared to prior imaging studies dated 03/18/2016 (mammogram), 04/06/2016 (mammogram) and 09/28/2016 (mammogram). MAMMOGRAM TECHNIQUE: The study was acquired using full field digital technology and interpreted from soft copy. Digital Breast Tomosynthesis (DBT) images were obtained and used to assist in the interpretation of this examination. MAMMOGRAM FINDINGS: There are scattered areas of fibroglandular density. No suspicious masses, calcifications or other abnormalities are seen in either breast. There are no significant interval changes. IMPRESSION: There is no mammographic evidence of malignancy in either breast. Routine screening mammogram is recommended. Annual mammogram will be due in 1 year. BI-RADS Category 1: Negative RISK: Based on the Tyrer-Cuzick (TC) risk assessment model, this patient has a 6.0% lifetime risk of developing breast cancer, meaning they are at average risk for developing breast cancer. However, this is only an estimate based on available history provided on the patient's questionnaire. We encourage all patients to talk with their providers about these results, further recommendations for managing breast health, and appropriate supplemental screening options if the patient has dense breast tissue. Interpreting Radiologist: Hero Sharif M.D. Electronically signed on: 08/31/2025 Stage Set Up Worker: STEPHANIE Transcribe Date/Time: Aug 30 2025 12:40P Dictated by: HERO SHARIF MD This examination was interpreted and the report reviewed and electronically signed by: HERO SHARIF MD on Aug 31 2025 9:20AM EST [id number] Normal [facility] PAP TESTon 08-30-2025 ADEQUACY Normal [facility] Comment on above: Order Comment: Speci men Type: SWAB Ordering Facility: [facility] Address: [address] [place] [address] Result Comment: Sati sfactory for interpretation. Transformation zone present Performed By: #### 3 6902-5, BVAMP #### [facility] CLIA [id number] [address] [place] [address] [place] CASE REPORT Normal [facility] Comment on above: Order Comment: Speci men Type: SWAB Ordering Facility: [facility] Address: [address] [place] [address] Result Comment: Gyne cologic Cytology Report Case: [id number] Authorizing Provider: Janelle Leahy APRN.CNM Collected: 08/30/2025 12:13 PM Ordering Location: OB/Gynecology Received: 08/30/2025 04:44 PM First Screen: [place], [place], [place], ASCP Specimen: Pap Test, ThinPrep, Cervix Performed By: #### 3 6902-5, BVAMP #### [facility] CLIA [id number] [address] [place] [address] [place] CLINICAL HISTORY, CYTOLOGY, STORAGE AND BACKUP ADMINISTRATOR Routine Exam Normal [facility] Comment on above: Order Comment: Speci men Type: SWAB Ordering Facility: [facility] Address: [address] [place] [address] Performed By: #### 3 6902-5, BVAMP #### [facility] CLIA [id number] [address] [place] [address] [place] FINAL PERFORMING LAB Normal [facility] Comment on above: Order Comment: Speci men Type: SWAB Ordering Facility: [facility] Address: [address] [place] [address] Result Comment: Tech nical component, salesperson yard goods screening performed at: [facility], [address] [place] [address], [address], [place] [address] CLIA: [id number] Diagnostic interpretation performed at: [facility], [address] [place] [address], [address], [place] [address] CLIA# [id number] Microcomputer Technician: Jose Colon MD Performed By: #### 3 6902-5, BVAMP #### [facility] CLIA [id number] [address] [place] [address] [place] INTERPRETATION, CYTOLOGY, STORAGE AND BACKUP ADMINISTRATOR Normal [facility] Comment on above: Order Comment: Speci men Type: SWAB Ordering Facility: [facility] Address: [address] [place] [address] Result Comment: Nega tive for intraepithelial lesion or malignancy. at 1229 EDT Performed By: #### 3 6902-5, BVAMP #### [facility] CLIA [id number] [address] [place] [address] [place] LMP 01/10/2025 Normal [facility] Comment on above: Order Comment: Speci men Type: SWAB Ordering Facility: [facility] Address: [address] [place] [address] Performed By: #### 3 6902-5, BVAMP #### [facility] CLIA [id number] [address] [place] [address] [place] PAP DISCLAIMER COMMENT The Pap Smear is a screening test for cervical cancer. False negative results occur with all screening tests, emphasizing the need for rescreening at recommended intervals, and clinical correlation. Normal [facility] Comment on above: Order Comment: Speci men Type: SWAB Ordering Facility: [facility] Address: [address] [place] [address] Performed By: #### 3 6902-5, BVAMP #### [facility] CLIA [id number] [address] [place] [address] [place] PAP BANQUET DIRECTOR COMMENT This specimen has been analyzed by the FDA-approved Football Meister System, which uses digital imaging and an enhanced artificial intelligence image analysis algorithm to identify arshad of interest on the microscopic slide, to assist the airborne electronics analyst and pathologist in evaluating cells on ThinPrep Pap tests. Following analysis, arshad of interest on the microscopic slide selected by the algorithm are reviewed by a airborne electronics analyst. If a sample requires hierarchical review, the pathologist will review the same arshad of interest selected by the algorithm prior to final interpretation. Normal [facility] Comment on above: Order Comment: Speci men Type: SWAB Ordering Facility: [facility] Address: [address] [place] [address] Performed By: #### 3 6902-5, BVAMP #### [facility] CLIA [id number] [address] [place] [address] OF [place] CNPSarah 07-09-2025 CNPN Telephone (OBGYWM) CALLBEV ([id number]) 1975 F Date Time Provider Department 07/09/25 ANA LUISA JIMENES OBGYWM During your visit today, we recorded the following information about you: Harmeet Kingsley RN 07/09/2025 11:44 AM Signed Pt was seen in office on 07/05/25. Pt calling as she saw she was + for Trichomonas. Advised Pt that message would be sent to provider for review and we would be in contact with her. Pt uses [facility] in [place]. Cristiano glabrata RNA Not detected Detected Abnormal Trichomonas vaginalis RNA Not detected Detected Abnormal Please advise. DULCE Dickinson Jessica, APRN.CNM 07/09/2025 1:09 PM Signed Mychart message sent and Rx. Lindsay Parks APRN.CNM Allergies As of Date: 07/09/2025 Noted Allergy Reaction DOXYCYCLINE 08/16/2006 ENTEX (PHENYLEPHRINE-GUAIFE [...] HCL) 08/16/2006 2 - Rash Date Reviewed: 07/05/2025 Reviewed by: Ale Anderson MA - Fully Assessed Reason for Visit: Results [95] Prescriptions as of 07/09/2025 - metroNIDAZOLE (FLAGYL) 500 mg tablet Take 1 tablet by mouth two times a day for 7 days. - fluconazole (DIFLUCAN) 150 mg tablet Take 1 tablet by mouth one time only for 1 dose. - metroNIDAZOLE (FLAGYL) 500 mg tablet Take 1 tablet by mouth two times a day for 7 days. - atorvastatin (LIPITOR) 40 mg tablet Take 1 tablet by mouth once daily. - pantoprazole DR (PROTONIX) 40 mg tablet TAKE 1 TABLET BY MOUTH ON AN EMPTY STOMACH 1/2 HOUR BEFORE A MEAL TWICE DAILY - venlafaxine (EFFEXOR) 50 mg tablet Take 1 tablet by mouth once daily. - venlafaxine ER (EFFEXOR XR) 150 mg 24 hr capsule Take 1 capsule by mouth once daily. in addition to Venlafaxine 50 mg tablet daily - gabapentin (NEURONTIN) 400 mg capsule Take 1 capsule by mouth three times a day for 180 days. - metroNIDAZOLE (METROGEL) 0.75 % Topical Gel Apply to affected area two times a day. - cetirizine (ZYRTEC) 10 mg tablet Take 1 tablet by mouth once daily. - ferrous sulfate 325 mg (65 mg iron) tablet Take 1 tablet by mouth once daily. - albuterol HFA (VENTOLIN HFA) 90 mcg/actuation inhaler Inhale 2 Puffs as instructed every 4 hours as needed for wheezing/shortness of breath. - nitroglycerin sublingual (NITROQUICK) 0.4 mg SL tablet Dissolve 1 tablet under the tongue every 5 minutes as needed for chest pain. - acetaminophen (TYLENOL) 500 mg tablet Take 2 tablets by mouth every 8 hours as needed for pain. - COMBIVENT RESPIMAT 20-100 mcg/actuation inhaler INHALE 1 PUFF INSTRUCTED FOUR TIMES DAILY NEEDED. Problem List As Of Date 07/09/2025 Noted Resolved Grief reaction [F43.20] 08/16/2006 Anxiety [...] 09/17/2009 04/27/2017 [facility]*01/15/2011 08/09/2012 Class: Chronic Routine gynecological examination [Z01.419] 01/15/2011 08/09/2012 Class: Chronic GERD (gastroesophageal reflux disease) [K21.9] 01/15/2011 PUD (peptic ulcer disease) [K27.9] 01/15/2011 Tinea versicolor [B36.0] 01/29/2011 09/24/2014 Post-inflammatory hyperpigmentation [L81.0] 01/29/2011 09/24/2014 Pruritus [L29.9] 01/29/2011 09/24/2014 Hyperlipidemia [E78.5] 05/22/2014 Coronary artery disease involving [place] benoit*06/06/2014 Lymphadenopathy [R59.1] 06/06/2014 04/27/2017 Herpes simplex infection [B00.9] 03/18/2016 04/27/2017 Marijuana use [F12.90] 06/08/2018 Mild intermittent asthma with acute exacerbatio* 8 Chest pain [R07.9] 08/30/2018 08/30/2018 Polysubstance abuse (HCC) [F19.10] 08/30/2018 07/03/2025 Primary hypertension [I10] 08/30/2018 Simple endometrial hyperplasia without atypia [*04/27/2019 Raynaud's phenomenon (by history or observed) [* COPD with chronic bronchitis (HCC) [J44.89] Emphysema (subcutaneous) (surgical) resulting f* Centrilobular emphysema (HCC) [J43.2] Tobacco use disorder, continuous [F17.209] Abscess of left hand [L02.512] 11/24/2022 Severe depression (HCC) [F32.2] 07/03/2025 History of s (more content not included)... Normal [facility] BACTERIAL VAGINOSIS NAATon 0 07-06-2025 Interpretation and review of laboratory results Abnormal [facility] Lactobacillus crispatus+gasseri+goldstein ii + Gardnerella vaginalis + Atopobium vaginae rRNA ARNOLDO+probe Ql (Vag fld) Detected Abnormal Not detected [facility] C. trachomatis+N. gonorrhoea e DNA ARNOLDO+probe Ql (Unsp spec)on 07-06-2025 C. trachomatis rRNA ARNOLDO+probe Ql (Unsp spec) Not detected Not detected [facility] Interpretation and review of laboratory results Normal [facility] N. gonorrhoeae rRNA ARNOLDO+probe Ql (Unsp spec) Not detected Not detected [facility] This FDA-approved assay has been modified to accept rectal swabs self-collected in a healthcare setting. For self-collected rectal swabs, the test was developed and its performance characteristics determined by the [facility] [place] ([facility]). It has not been cleared or approved by the FDA. [facility] is regulated under CLIA as qualified to perform high-complexity testing. This test is used for clinical purposes. It should not be regarded as investigational or for research. [facility] CRISTIANO/TRICHOMONAS NAATon 0 07-06-2025 C. glabrata RNA ARNOLDO+probe Ql (Vag fld) Detected Abnormal Not detected [facility] Cristiano sp DNA ARNOLDO+probe Ql (Vag fld) Not detected Not detected [facility] Comment on above: The Cristiano species group target includes C. albicans, C. tropicalis, C. parapsilosis, and C. dubliniensis. Interpretation and review of laboratory results Abnormal [facility] T. vaginalis DNA ARNOLDO+probe Ql (Unsp spec) Detected Abnormal Not detected [facility] BACTERIAL VAGINOSIS NAATon 0 07-05-2025 Lactobacillus crispatus+gasseri+goldstein ii + Gardnerella vaginalis + Atopobium vaginae rRNA ARNOLDO+probe Ql (Vag fld) Detected Abnormal Not detected [facility] Comment on above: Order Comment: Speci men Type: SWABOrdering Facility: [facility] Address: [address] [place] [address] Performed By: #### 3 6902-5, BVAMP ####[facility] LABCLIA [id number] [place] [address] [place] C. trachomatis+N. gonorrhoea e DNA ARNOLDO+probe Ql (Unsp spec)on 07-05-2025 C. trachomatis rRNA ARNOLDO+probe Ql (Unsp spec) Not detected Normal Not detected [facility] Comment on above: Order Comment: Speci men Type: SWABOrdering Facility: [facility] Address: [address] [place] [address] Performed By: #### 3 6902-5, BVAMP ####[facility] LABCLIA [id number] [place] [address] [place] N. gonorrhoeae rRNA ARNOLDO+probe Ql (Unsp spec) Not detected Normal Not detected [facility] Comment on above: Order Comment: Speci men Type: SWABOrdering Facility: [facility] Address: [address] [place] [address] Performed By: #### 3 6902-5, BVAMP ####[facility] LABCLIA [id number] [place] [address] [place] CRISTIANO/TRICHOMONAS NAATon 0 07-05-2025 C. glabrata RNA ARNOLDO+probe Ql (Vag fld) Detected Abnormal Not detected [facility] Comment on above: Order Comment: Speci men Type: SWABOrdering Facility: [facility] Address: [address] [place] [address] Performed By: #### C VTV ####[facility] LABIA [id number] [place] [address] [place] Cristiano sp DNA ARNOLDO+probe Ql (Vag fld) Not detected Normal Not detected [facility] Comment on above: Order Comment: Speci men Type: SWABOrdering Facility: [facility] Address: [address] [place] [address] Result Comment: The Cristiano species group target includes C. albicans, C. tropicalis, C. parapsilosis, and C. dubliniensis. Performed By: #### C VTV ####[facility] LABCLIA [id number] [place] [address] [place] T. vaginalis DNA ARNOLDO+probe Ql (Unsp spec) Detected Abnormal Not detected [facility] Comment on above: Order Comment: Speci men Type: SWABOrdering Facility: [facility] Address: [address] [place] [address] Performed By: #### C VTV ####[facility] OZ [id number] [facility] [place] [id number] [place] CNOVon 07-05-2025 CNOV Office Visit (OBGYWM ) BEV WEBB ([id number]) 1975 F Date Time Provider Department 07/05/25 2:30 PM LINDSAY PARKS OBGYWM During your visit today, we recorded the following information about you: Blood pressure Weight 148/84 75.8 kg Lindsay Parks APRN.CNM 07/09/2025 9:31 AM Signed Treater Helper offered: Patient declines. Bev Webb is a 50 year old female who presents for problem visit for vaginal discharge HPI: Presents today with concerns of vaginal discharge and wondering if she has an infection. Also concerned about STDs and would like vaginal testings. 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 Chase Centrilobular emphysema (HCC) Chronic cholecystitis 08/24/2007 Chronic depressive personality disorder Chronic gastric ulcer without mention of hemorrhage, perforation, without mention of obstruction COPD with chronic bronchitis (HCC) Coronary artery disease involving [place] coronary artery of [place] heart with angina pectoris Generalized anxiety disorder Hemorrhoids History of methicillin resistant staphylococcus aureus (MRSA) HTN (hypertension) Hyperlipidemia Incisional hernia without mention of obstruction or gangrene Iron deficiency anemia, unspecified iron deficiency anemia type Irritable bowel syndrome Lumbago Mixed hyperlipidemia PONV (postoperative nausea and vomiting) Raynaud's phenomenon [...] All through my father's family. SOCIAL HISTORY[1] Current Outpatient Medications Medication Sig atorvastatin (LIPITOR) 40 mg tablet Take 1 tablet by mouth once daily. pantoprazole DR (PROTONIX) 40 mg tablet TAKE 1 TABLET BY MOUTH ON AN EMPTY STOMACH 1/2 HOUR BEFORE A MEAL TWICE DAILY venlafaxine (EFFEXOR) 50 mg tablet Take 1 tablet by mouth once daily. venlafaxine ER (EFFEXOR XR) 150 mg 24 hr capsule Take 1 capsule by mouth once daily. in addition to Venlafaxine 50 mg tablet daily gabapentin (NEURONTIN) 400 mg capsule Take 1 capsule by mouth three times a day for 180 days. metroNIDAZOLE (METROGEL) 0.75 % Topical Gel Apply to affected area two times a day. cetirizine (ZYRTEC) 10 mg tablet Take 1 tablet by mouth once daily. ferrous sulfate 325 mg (65 mg iron) tablet Take 1 tablet by mouth once daily. albuterol HFA (VENTOLIN HFA) 90 mcg/actuation inhaler Inhale 2 Puffs as instructed every 4 hours as needed for wheezing/shortness of breath. nitroglycerin sublingual (NITROQUICK) 0.4 mg SL tablet Dissolve 1 tablet under the tongue every 5 minutes as needed for chest pain. acetaminophen (TYLENOL) 500 mg tablet Take 2 tablets by mouth every 8 hours as needed for pain. COMBIVENT RESPIMAT 20-100 mcg/actuation inhaler INHALE 1 PUFF INSTRUCTED FOUR TIMES DAILY NEEDED. No current facility-administered medications for this visit. Allergies As of Date: 07/05/2025 Allergen Noted Reaction DOXYCYCLINE 08/16/2006 ENTEX [PHENYLEPHRINE-GUAIFE NESIN] 10/20/2006 ERYTHROMYCIN 08/16/2006 Shortness of Breath FLEXERIL [CYCLOBENZAPRINE HCL] 10/08/2011 Cough OMNICEF [CEFDINIR] 07/11/2014 GI Upset (more content not included)... Normal [facility]BE[employer]WM[facility] CALL,BEV Gerardo ([id number]) 1975 F Date Time Provider Department 07/04/25 LYDIA GODOY During your visit today, we recorded the following information about you: Harmeet Kingsley RN 07/04/2025 2:42 PM Signed Pt calls c/o Itching AND very thick white discharge. Used 3 day monistat AND 1 day monistat back to back days and did not help. Was on Z-Antony and prednisone, finished last week before starting Monistat. Last seen in office 08/04/23. Advised Pt she needs appt. Appt scheduled tomorrow with CP. Harmeet Kingsley RN Allergies As of Date: 07/04/2025 Noted Allergy Reaction DOXYCYCLINE 08/16/2006 ENTEX (PHENYLEPHRINE-GUAIFE [...] HCL) 08/16/2006 2 - Rash Date Reviewed: 07/03/2025 Reviewed by: Harmeet Soto LPN - Fully Assessed Prescriptions as of 07/04/2025 - atorvastatin (LIPITOR) 40 mg tablet Take 1 tablet by mouth once daily. - pantoprazole DR (PROTONIX) 40 mg tablet TAKE 1 TABLET BY MOUTH ON AN EMPTY STOMACH 1/2 HOUR BEFORE A MEAL TWICE DAILY - venlafaxine (EFFEXOR) 50 mg tablet Take 1 tablet by mouth once daily. - venlafaxine ER (EFFEXOR XR) 150 mg 24 hr capsule Take 1 capsule by mouth once daily. in addition to Venlafaxine 50 mg tablet daily - gabapentin (NEURONTIN) 400 mg capsule Take 1 capsule by mouth three times a day for 180 days. - metroNIDAZOLE (METROGEL) 0.75 % Topical Gel Apply to affected area two times a day. - cetirizine (ZYRTEC) 10 mg tablet Take 1 tablet by mouth once daily. - ferrous sulfate 325 mg (65 mg iron) tablet Take 1 tablet by mouth once daily. - albuterol HFA (VENTOLIN HFA) 90 mcg/actuation inhaler Inhale 2 Puffs as instructed every 4 hours as needed for wheezing/shortness of breath. - nitroglycerin sublingual (NITROQUICK) 0.4 mg SL tablet Dissolve 1 tablet under the tongue every 5 minutes as needed for chest pain. - acetaminophen (TYLENOL) 500 mg tablet Take 2 tablets by mouth every 8 hours as needed for pain. - COMBIVENT RESPIMAT 20-100 mcg/actuation inhaler INHALE 1 PUFF INSTRUCTED FOUR TIMES DAILY NEEDED. Problem List As Of Date 07/04/2025 Noted Resolved Grief reaction [F43.20] 08/16/2006 Anxiety [...] 09/17/2009 04/27/2017 [facility]01/15/2011 08/09/2012 Class: Chronic Routine gynecological examination [Z01.419] 01/15/2011 08/09/2012 Class: Chronic GERD (gastroesophageal reflux disease) [K21.9] 01/15/2011 PUD (peptic ulcer disease) [K27.9] 01/15/2011 Tinea versicolor [B36.0] 01/29/2011 09/24/2014 Post-inflammatory hyperpigmentation [L81.0] 01/29/2011 09/24/2014 Pruritus [L29.9] 01/29/2011 09/24/2014 Hyperlipidemia [E78.5] 05/22/2014 Coronary artery disease involving [place] benoit*06/06/2014 Lymphadenopathy [R59.1] 06/06/2014 04/27/2017 Herpes simplex infection [B00.9] 03/18/2016 04/27/2017 Marijuana use [F12.90] 06/08/2018 Mild intermittent asthma with acute exacerbatio* 8 Chest pain [R07.9] 08/30/2018 08/30/2018 Polysubstance abuse (HCC) [F19.10] 08/30/2018 07/03/2025 Primary hypertension [I10] 08/30/2018 Simple endometrial hyperplasia without atypia [*04/27/2019 Raynaud's phenomenon (by history or observed) [* COPD with chronic bronchitis (HCC) [J44.89] Emphysema (subcutaneous) (surgical) resulting f* Centrilobular emphysema (HCC) [J43.2] Tobacco use disorder, continuous [F17.209] Abscess of left hand [L02.512] 11/24/2022 Severe depression (HCC) [F32.2] 07/03/2025 History of substance abuse (HCC) [F19.11] 07/03/2025 Encounter Status:Closed by HARMEET KINGSLEY on 07/04/[address] [facility] CNOVon 07-03-2025 CNOV Office Visit (FAMPWS ) CALL,BEV Gerardo ([id number]) 1975 F Date Time Provider Department 07/03/25 1:40 PM MARTINEZ GARCIA FAMPWS During your visit today, we recorded the following information about you: Temperature Pulse Blood pressure Weight 96 degrees 75/minute 128/84 74.8 kg Martinez Garcia MD 07/03/2025 2:13 PM Signed - Restart atorvastatin (Lipitor) to help lower your cholesterol; your refill will be sent to the pharmacy. - Continue taking the prescription iron supplement for your low iron levels. - Keep using your husm-tru-idtzrxz B12 supplement as before. - Continue Effexor at your current dose for mood support. - Use your prescribed inhalers as directed for emphysema. - Take snqp-tyc-vhqrxvc cold and flu medicine at night as needed for throat and chest symptoms. - Drink plenty of fluids and rest to support recovery from your viral illness. - Return in 6 weeks for blood tests (CBC, liver function tests, and lipid panel) to monitor your response to atorvastatin and overall health. - A nasal swab for COVID-19, RSV, and influenza was performed today; we will contact you with results and discuss antiviral treatment if needed. - If your breathing worsens, you develop significant shortness of breath, or you see no improvement within one week, contact our office. - Attend your GI appointment on July [address] Lundberg for evaluation and potential scopes. - Schedule a cardiology follow-up (preferably with Dr. Chase or another manufacturing chief engineer) to review your syncopal episode and heart health. - Keep your gynecology appointment in August to address menopause symptoms and endometrial hyperplasia. - Consider reducing smoking to help improve your blood counts and lung function. - You may consider updating your tetanus booster if it?s been 10 years and the hepatitis B vaccine series when convenient. Martinez Garcia MD 07/03/2025 5:38 PM Signed The patient is a 50-year-old female with emphysema, IBS, and colitis, presenting for evaluation of acute sore throat, cough, and congestion. HPI Upper Respiratory Infection Symptoms: - Onset of symptoms began on Tuesday, 5 days ago. - Sore throat, cough, ear pain, congestion, and mild dyspnea. - Bev denies wheezing. - No fevers or body aches until yesterday. - No known exposure to illness, but attended a family gathering on Tuesday. - Using OTC cold and flu medication at night. - Bev denies performing a home COVID test. - Continues to smoke. Abdominal Pain: - Chronic abdominal pain for years, worsening recently. - Pain described as steady, located from the epigastric region to the right upper quadrant. - Severe pain under the rib cage, sometimes requiring manual support. - History of cholecystectomy. - Chronic diarrhea, longstanding. - Diagnosed with IBS and colitis. - Recent blood work showed low iron and B12 levels; currently taking supplements. - No recent changes in bowel habits. Hyperlipidemia: - Recent lab work showed elevated cholesterol levels: total cholesterol 276 mg/dL, triglycerides 254 mg/dL, LDL 185 mg/dL, HDL 42 mg/dL. - Bev is non-adherent to atorvastatin; unsure of last dose. - No current cardiology follow-up; last seen by Dr. Chase. Depression: - Managed with Effexor; reports medication is effective. - Experiences anxiety, sadness, and periods of social withdrawal. - Bev denies suicidal ideation. - Chronic insomnia, difficulty falling asleep. Emphysema: - Continues to use inhalers. - No new cough or wheezing outside of current URI symptoms. - Reports occasional difficulty breathing. - No current pulmonary follow-up. MEDICATIONS: Current Outpatient Medications Medication Sig pantoprazole DR (PROTONIX) 40 mg tablet TAKE 1 TABLET BY MOUTH ON AN EMPTY STOMACH 1/2 HOUR BEFORE A MEAL TWICE DAILY venlafaxine (EFFEXOR) 50 mg tablet Take 1 tablet by mouth once daily. venlafaxine ER (EFFEXOR XR) 150 mg 24 hr capsule Take 1 capsule by mouth once daily. in addition to Venlafaxine 50 mg tablet daily gabapentin (NEURONTIN) 400 mg capsule Take 1 capsule by mouth three times a day for 180 days. metroNIDAZOLE (METROGEL) 0.75 % Topical Gel Apply to affected area two times a day. cetirizine (ZYRTEC) 10 mg tablet Take 1 tablet by mouth once daily. ferrous sulfate 325 mg (65 mg iron) tablet Take 1 tablet by mouth once daily. albuterol HFA (VENTOLIN HFA) 90 mcg/actuation inhaler Inhale 2 Puffs as instructed every 4 hours as needed for wheezing/shortness of breath. COMBIVENT RESPIMAT 20-100 mcg/actuation inhaler INHALE 1 PUFF INSTRUCTED FOUR TIMES DAILY NEEDED. atorvastatin (LIPITOR) 40 mg tablet Take 1 tablet by mouth once daily. nitroglycerin sublingual (NITROQUICK) 0.4 mg SL tablet Dissolve 1 tablet under the tongue every 5 minutes as needed for chest pain. acetaminophen (TYLENOL) 500 mg tablet Take 2 tabl (more content not included)... Normal [facility] COVID & INFLUENZA A/B & RSV PCR, ROUTINEon 07-03-2025 FLUAV RNA ARNOLDO+probe Ql (Unsp spec) Not detected Not Detected [facility] FLUBV RNA ARNOLDO+probe Ql (Unsp spec) Not detected Not Detected [facility] Interpretation and review of laboratory results Normal [facility] RSV A RNA ARNOLDO+probe Ql (Unsp spec) Not detected Not Detected [facility] SARS-CoV-2 (COVID-19) RNA ARNOLDO+probe Ql (Unsp spec) Not detected See comment [facility] Reference Range (the expected result in uninfected individuals): Not detected [facility] Abdomen/Pelvis W IV Cont ONL Yon 06-21-2025 Abdomen/Pelvis W IV Cont ONLY [facility] Imaging Services [address] [place], [place] [id number] Abdomen/Pelvis W IV Cont ONLY MR#: [id number] Acct: [id number] Name: BEV WEBB Rep #: [id number] : 1975 F 50 From: Javier Abernathy MD PCP: Dr. Martinez Garcia MD Status: REG ER Study: Abdomen/Pelvis W IV Cont ONLY Date of Exam: Exam# [id number] Ordering Dr: Joseph Tomas MD PROCEDURE: CT ABDOMEN/PELVIS W IV CONT ONLY 06/21/2025 REASON FOR EXAM: RIGHT-SIDED ABDOMINAL PAIN. PRIOR CHOLECYSTECTOMY TECHNIQUE: CT ABDOMEN/PELVIS W IV CONT ONLY. Coronal and Sagittal reconstruction series were provided. CONTRAST: Isovue 370 VOLUME: 94 mL One or more dose reduction techniques were used (e.g., Automated exposure control, adjustment of the mA and/or kV according to patient size, use of iterative reconstruction technique. RADIATION DOSE SUMMARY: DLP: 842.29 mGycm COMPARISON: Abdominal CT 12/26/2024. FINDINGS: Lung bases: Clear. Liver: No significant abnormality. Gallbladder: Surgically absent. Presumed postoperative prominence of the CBD and intrahepatic biliary ducts, stable from prior exams. No dilatation of the pancreatic duct. Spleen: Normal size and morphology. Small anterior splenule. Pancreas: Unremarkable. Adrenals: Unremarkable. Kidneys: Unremarkable. No urolithiasis or hydronephrosis. Bladder: Unremarkable. Reproductive Organs: Mildly lobulated uterus with multiple small presumed uterine fibroids. Small bilateral ovarian functional follicles/cysts. No adnexal mass. Bowel: No evidence of obstruction or active inflammatory process. Appendix is surgically absent. Lymph nodes: No enlarged abdominopelvic lymph nodes. Vasculature: Normal caliber abdominal aorta and IVC. Mild atherosclerotic calcifications. Peritoneum / Retroperitoneum: No ascites or free air. Bones: Unremarkable. CT/Abdomen/Pelvis W IV Cont ONLY IMPRESSION: 1. No acute or active inflammatory intra-abdominal pathology. 2. Multiple small presumed uterine fibroids. Reading Location: [facility] CC: Dr. Joseph Tomas MD; Dr. Martinez Garcia MD Stage Set Up Worker: Signed Normal [facility] Absolute lymphocyte countOrd ered By: ED PROVIDER on 06-21-2025 Lymphocytes Auto (Unsp spec) [#/Vol] 3.75 10*3/uL 0.83-4.51 [facility] Absolute neutrophil countOrd ered By: ED PROVIDER on 06-21-2025 Neutrophils (Bld) [#/Vol] 8.0 10*3/uL High 2.0-7.7 [facility] Anion gap in Serum or Plasma Ordered By: Joseph Tomas on 06-21-2025 Anion gap [Moles/Vol] 12 mmol/L 03-21 [facility] Automated lymphocyte count a s percentage of total leukocytesOrdered By: ED PROVIDER on 06-21-2025 Lymphocytes/100 WBC Auto (Unsp spec) 28.1 % [facility] BUN/creatinine ratioOrdered By: Joseph Tomas on 06-21-2025 Urea nitrogen/Creatinine [Mass ratio] 11.3 mg/mg - [facility] Basophil percentageOrdered B y: ED PROVIDER on 06-21-2025 Basophils/100 WBC (Bld) 0.8 % 0-1 [facility] Bilirubin Test strip Ql (U)O rdered By: Joseph Tomas on 06-21-2025 Bilirubin Ql (U) Negative Negative [facility] Bilirubin, totalOrdered By: Joseph Tomas on 06-21-2025 Bilirubin [Mass/Vol] mg/dL 0.00-1.30 [facility] CBC W/Diff, Automatedon 06-07 Absolute Lymph 3.75 X10 3/uL Normal 0.83-4.51 [facility] Comment on above: Performed By: #### Delores 8200.2203 #### [facility] [address] [place], [place], [id number] Absolute Neut 8.0 X10 3/uL High 2.0-7.7 [facility] Comment on above: Performed By: #### Delores 8200.2203 #### [facility] [address] [place], [address] Basophils/100 WBC (Bld) 0.8 % Normal 0-1 [facility] Comment on above: Performed By: #### Delores 8200.2203 #### [facility] [address] [place], [address] Eosinophils/100 WBC (Bld) 3.3 % Normal 0-5 [facility] Comment on above: Performed By: #### 8200.220 #### [facility] [address] [place], [address] Erythrocyte distribution width (RBC) [Ratio] 16.5 % High 11.6-14.6 [facility] Comment on above: Performed By: #### 8200.220 #### [facility] [address] [place], [address] Hematocrit (Bld) [Volume fraction] 44.8 % Normal 37-47 [facility] Comment on above: Performed By: #### 8200.220 #### [facility] [address] [place], [address] Hemoglobin (Bld) [Mass/Vol] 14.3 g/dL Normal 12.0-15.0 [facility] Comment on above: Performed By: #### 8200.2203 #### [facility] [address] [place], [address] IG% 0.700 Normal 0.0-0.9 [facility] Comment on above: Result Comment: IG% - Immature Granulocytes (promyelocytes, myelocytes and metamyelocytes) > 1% indicates that a LEFT SHIFT is Present. Performed By: #### 8200.3 #### [facility] [address] [place], [address] Lymphocytes/100 WBC (Bld) 28.1 % Normal 19-41 [facility] Comment on above: Performed By: #### M 8200.2203 #### [facility] [address] [place], [address] MCH (RBC) [Entitic mass] 29.0 pg Normal 27.0-32.0 [facility] Comment on above: Performed By: #### 8200.220 #### [facility] [address] [place], [address] MCHC (RBC) [Mass/Vol] 31.9 g/dL Low 32-36 [facility] Comment on above: Performed By: #### M 8200.2202 #### [facility] [address] [place], [address] MCV (RBC) [Entitic vol] 90.9 fL Normal 81-99 [facility] Comment on above: Performed By: #### Delores 8200.2202 #### [facility] [address] [place], [address] Monocytes/100 WBC (Bld) 7.6 % Normal 0-10 [facility] Comment on above: Performed By: #### Delores 8200.2202 #### [facility] [address] [place], [address] Neutrophils/100 WBC (Bld) 59.5 % Normal 47-70 [facility] Comment on above: Performed By: #### Delores 8200.2202 #### [facility] [address] [place], [address] Nucleated RBC (Bld) [#/Vol] 0 10*3/uL Normal 0-5 [facility] Comment on above: Performed By: #### Delores 8200.2202 #### [facility] [address] [place], [address] Platelet mean volume (Bld) [Entitic vol] 10.0 fL Normal 6.2-12.0 [facility] Comment on above: Performed By: #### M 8200.2202 #### [facility] [address] [place], [address] Platelets (Bld) [#/Vol] 447 10*3/uL Normal 150-450 [facility] Comment on above: Performed By: #### M 8200.2202 #### [facility] [address] [place], [address] RBC (Bld) [#/Vol] 4.93 10*6/uL Normal 4.2-5.4 [facility] Comment on above: Performed By: #### M 8200.2203 #### [facility] [address] [place], [address] RDW SD 55.2 fl High 35.1-43.9 [facility] Comment on above: Performed By: #### M 8200.2202 #### [facility] [address] [place], [address] WBC (Bld) [#/Vol] 13.4 10*3/uL High 4.4-11.0 [facility] Comment on above: Performed By: #### M 8200.2202 #### [facility] [address] [place], [address] Carbon dioxide, total [Moles /volume] in Central venous bloodOrdered By: Joseph Tomas on 06-21-2025 CO2 [Moles/Vol] 21.8 mmol/L 21.0-32.0 [facility] Chloride assayOrdered By: Wayne Tomas on 06-21-2025 Chloride [Moles/Vol] 103 mmol/L 98-108 [facility] Comprehensive Metabolic Prof ilon 06-21-2025 Albumin [Mass/Vol] 4.1 g/dL Normal 3.5-5.0 [facility] Comment on above: Performed By: #### L 501.4020 #### [facility] [address] [place], [address] Albumin/Globulin [Mass ratio] 1.2 {ratio} Normal 0.9-2.4 [facility] Comment on above: Performed By: #### L [id number] #### [facility] [address] [place], [address] ALK PHOS 141 U/L High 35-104 [facility] Comment on above: Performed By: #### L [id number] #### [facility] [address] [place], [address] ALT [Catalytic activity/Vol] 13 U/L Normal <=34 [facility] Comment on above: Performed By: #### L [id number] #### [facility] [address] [place], [address] AST [Catalytic activity/Vol] 15 U/L Normal <=31 [facility] Comment on above: Performed By: #### L [id number] #### [facility] [address] [place], [address] BUN/CRE 11.3 RATIO Normal 10-20 [facility] Comment on above: Performed By: #### L [id number] #### [facility] [address] [place], [address] Calcium [Mass/Vol] 9.5 mg/dL Normal 7.6-11.0 [facility] Comment on above: Performed By: #### L [id number] #### [facility] [address] [place], [address] Chloride [Moles/Vol] 103 mmol/L Normal 98-108 [facility] Comment on above: Performed By: #### L [id number] #### [facility] [address] [place], [address] CO2 [Moles/Vol] 21.8 mmol/L Normal 21.0-32.0 [facility] Comment on above: Performed By: #### L [id number] #### [facility] [address] [place], [address] Creatinine [Mass/Vol] 0.70 mg/dL Normal 0.70-1.20 [facility] Comment on above: Performed By: #### L [id number] #### [facility] [address] [place], [address] ECRCL 94.45 ml/min Normal 50-250 [facility] Comment on above: Performed By: #### L [id number] #### [facility] [address] [place], [address] GAP 12 Normal 5-15 [facility] Comment on above: Performed By: #### L [id number] #### [facility] [address] [place], [address] GFR/1.73 sq M.predicted among non-blacks MDRD (S/P/Bld) [Vol rate/Area] 106 mL/min/{1.73_m2} Normal >60 [facility] Comment on above: Result Comment: mL/m in/1.73m2 CKD-EPI Creatinine Equation (2020) Performed By: #### L [id number] #### [facility] [address] [place], [address] Globulin (S) [Mass/Vol] 3.3 g/dL Normal 2.2-4.2 [facility] Comment on above: Performed By: #### L [id number] #### [facility] [address] [place], [address] Glucose [Mass/Vol] 89 mg/dL Normal 70-99 [facility] Comment on above: Performed By: #### L [id number] #### [facility] [address] [place], [address] Potassium [Moles/Vol] 4.3 mmol/L Normal 3.3-5.1 [facility] Comment on above: Performed By: #### L [id number] #### [facility] [address] [place], [address] Sodium [Moles/Vol] 137 mmol/L Normal 133-145 [facility] Comment on above: Performed By: #### L [id number] #### [facility] [address] [place], [address] T BILI < 0.15 Normal 0.00-1.30 [facility] Comment on above: Performed By: #### L [id number] #### [facility] [address] [place], [address] T PROT 7.4 g/dL Normal 5.9-8.4 [facility] Comment on above: Performed By: #### L [id number] #### [facility] [address] [place], [place], [address] Urea nitrogen [Mass/Vol] 8 mg/dL Normal 4-19 [facility] Comment on above: Performed By: #### L [id number] #### [facility] [address] [place], [address] Emergency Department Summary on 06-21-2025 Emergency Department Summary [facility] Medical Records Department [address] [place] [address] Emergency Department Summary 06/21/25 MR#: [id number] Acct: [id number] Name: BEV WEBB Rep #: [id number] : 1975 50 From: Joseph Tomas MD PCP: Dr. Martinez Garcia MD Status:DEP ER Location: ED HPI HPI - GI History of Present Illness Chief Complaint: Abd Pain Informant: patient Abdominal Pain/Flank Pain Onset: Days Context: Gradual Onset Timing: Intermittent Quality: Aching Location: RUQ and RLQ Current Severity: Moderate Maximum Severity: Moderate Worsened by: Nothing Relieved by: Nothing Nausea/Vomiting/Emesi s GI Symptom: Negative for Nausea or Vomiting Diarrhea/Melena/Hemat ochezia GI Symptom: Positive for Diarrhea (Several days ago resolved.) Stool Quality: Positive for Watery Severity: Mild Associated Symptoms Associated Symptoms: Negative for Dysuria, Frequency, Hematuria or Urgency Narrative Narrative: 50-year-old female complaining of right-sided abdominal pain. States she had significant mount of diarrhea about 4 days ago and developed this pain. She has had a prior appendectomy and cholecystectomy, tubal ligation exploratory laparotomy. CT said pain like this before not quite as bad and never come up with a specific cause. Was seen by her primary care physician this week and has an appointment to see a [facility] general surgeon locally on Tuesday. Denies any fever. No dysuria. Prior similar symptoms: Yes Recent Illness/Hospitalizati on: No PFSH PFSH Medical History Anxiety Depression Smoker Emphysema lung Essential (primary) hypertension Atherosclerotic heart disease of [place] coronary artery without angina pectoris Stomach ulcer [...] History release 24 hr venlafaxine 37.5 mg 50 mg PO DAILY 09/12/24 Unknown Hi story capsule,extended release 24 hr albuterol sulfate 90 mcg/actuation 2 puff inhalation Q4H PRN PRN Unknown History aerosol inhaler wheezing Allergy/AdvReac Type Severity Reaction Status Date / Time doxycycline Allergy Unknown Verified 06/21/25 17:11 erythromycin base Allergy Chest Verified 06/21/25 17:11 (Erythromycin Base) tightness Penicillins Allergy Unknown Verified 06/21/25 17:11 tramadol HCl (From Ultram) Allergy Swelling Verified 06/21/25 17:11 cefdinir (From Omnicef) AdvReac Other Verified 06/21/25 17:11 risperidone (From Risperdal) AdvReac Unknown Verified 06/21/25 17:11 valacyclovir HCl (From AdvReac Nausea Verified 06/21/25 17:11 Valtrex) Family History Other Arthritis Cancer Diabetes Heart disease Stomach ulcer Surgical History History of cholecystectomy Hx of tubal ligation Hx of nasal septoplasty History of herniorrhaphy Hx of appendectomy History of left heart catheterization (03/16/21) History of ankle surgery Social History Smoking Status: Heavy Smoker (>10/day) substance use type: marijuana and other details: Smokes marijuana, ingests CBD Gummies, but no other substance or IVDU ROS ROS ED ROS Narrative Abdominal pain. Recent diarrhea resolved. Constitutional Constitutional ED: Denies chills or fever(s) ENT ENT ED: Denies ear pain Cardiovascular Cardiovascular: Denies chest pain Respiratory/Chest Respiratory/Chest: Denies cough or dyspnea Gastrointestinal Gastrointestinal: Reports abdominal pain and diarrhea; Denies constipation, melena, nausea or vomiting Genitourinary Genitourinary ED: Denies dysuria or hematuria Musculoskeletal Musculoskeletal: Denies arthralgias Integumentary Denies abscess Neurologic Neurologic: Denies headache(s) Psychiatric Psychiatric: Denies anxiety Endocrine Endocrinology: Denies polydipsia Hematologic/Lymphatic Hematologic/Lymphatic : Denies easy bleeding Allergic/Immunologic Allergic/Immunologic ED: Denies mouth swelling, tongue swelling or urticaria EXAM Physical Exam Narrative Exam Narrative: 50-year-old female sitting upright in bed. Vital signs are stable afebrile. Patient does not look septic toxic she is in no acute distress. H EENT exam pupils round react to light. Moist mucous membranes. (more content not included)... Normal [facility] Eosinophil percentageOrdered By: ED PROVIDER on 06-21-2025 Eosinophils/100 WBC (Bld) 3.3 % 0-5 [facility] Erythrocyte distribution wid th ratioOrdered By: ED PROVIDER on 06-21-2025 Erythrocyte distribution width (RBC) [Ratio] 16.5 % High 11.6-14.6 [facility] Erythrocyte distribution wid th standard deviationOrdered By: ED PROVIDER on 06-21-2025 Erythrocyte distribution width (RBC) [Ratio] 55.2 fl High 35.1-43.9 [facility] Glomerular filtration rate ( GFR) estimation/1.73 sq m using serum, plasma, or whole bOrdered By: Joseph Tomas on 06-21-2025 GFR/1.73 sq M.predicted among non-blacks MDRD (S/P/Bld) [Vol rate/Area] 106 mL/min/{1.73_m2} >60 [facility] Comment on above: mL/min/1.73m2 CKD-EP I Creatinine Equation (2020) Hematocrit Auto (Bld) [Volum e fraction]Ordered By: ED PROVIDER on 06-21-2025 Hematocrit (Bld) [Volume fraction] 44.8 % 37-47 [facility] Hemoglobin measurementOrdere d By: ED PROVIDER on 06-21-2025 Hemoglobin (Bld) [Mass/Vol] 14.3 g/dL 12.0-15.0 [facility] Immature granulocytes/100 WB C Auto (Bld)Ordered By: ED PROVIDER on 06-21-2025 Immature granulocytes/100 WBC (Bld) 0.700 % 0.0-0.9 [facility] Comment on above: IG% - Immature Granu locytes (promyelocytes, myelocytes and metamyelocytes) > 1% indicates that a LEFT SHIFT is Present. Ketones Test strip Ql (U)Ord ered By: Joseph Tomas on 06-21-2025 Ketones Ql (U) Negative Negative [facility] - Chemistry and C hemistry - challengeOrdered By: Joseph Tomas on 06-21-2025 AST [Catalytic activity/Vol] 15 U/L <32 [facility] Lipaseon 06-21-2025 Lipase [Catalytic activity/Vol] 19 U/L Normal 13-75 [facility] Comment on above: Result Comment: Plea note: LIPASE revised reference range effective 23. New Lipase methodology. Expected to produce lower values than the previous assay method. NEW Reference Range: 13 - 75 U/L Performed By: #### M 8200.2203 #### [facility] [address] [place], [address] Lipase measurementOrdered By : Joseph Tomas on 06-21-2025 Lipase [Catalytic activity/Vol] 19 U/L 13-75 [facility] Comment on above: Please note:LIPASE r evised reference range effective 23. New Lipase methodology. Expected to produce lower values than the previous assay method. NEW Reference Range: 13 - 75 U/L MCV (mean corpuscular volume ) determinationOrdered By: ED PROVIDER on 06-21-2025 MCV (RBC) [Entitic vol] 90.9 fL 81-99 [facility] Mean corpuscular hemoglobin (MCH) determinationOrdered By: ED PROVIDER on 06-21-2025 MCH (RBC) [Entitic mass] 29.0 pg 27.0-32.0 [facility] Mean corpuscular hemoglobin concentration (MCHC) determinationOrdered By: ED PROVIDER on 06-21-2025 MCHC (RBC) [Mass/Vol] 31.9 g/dL Low 32-36 [facility] Mean platelet volume determi nationOrdered By: ED PROVIDER on 06-21-2025 Platelet mean volume (Bld) [Entitic vol] 10.0 fL 6.2-12.0 [facility] Microscopic analysis of urin e for red blood cells (RBC)Ordered By: Joseph Tomas on 06-21-2025 Microscopic analysis of urine for red blood cells (RBC) 0 SEEN /hpf 0-5 [facility] Monocyte percentageOrdered B y: ED PROVIDER on 06-21-2025 Monocytes/100 WBC (Bld) 7.6 % 0-10 [facility] Mucus LM Ql (Urine sed)Order ed By: Joseph Tomas on 06-21-2025 Mucus Ql (Urine sed) 0 SEEN /hpf [facility] Neutrophil percentageOrdered By: ED PROVIDER on 06-21-2025 Neutrophils/100 WBC (Bld) 59.5 % 47-70 [facility] Nitrite Test strip Ql (U)Ord ered By: Joseph Tomas on 06-21-2025 Nitrite Ql (U) Negative Negative [facility] Nucleated red blood cell per centageOrdered By: ED PROVIDER on 06-21-2025 Nucleated RBC/100 WBC (Bld) [Ratio] 0 % 0-5 [facility] Platelet countOrdered By: ED PROVIDER on 06-21-2025 Platelets (Bld) [#/Vol] 447 10*3/uL 150-450 [facility] Potassium measurement (mass/ volume)Ordered By: Joseph Tomas on 06-21-2025 Potassium (Unsp spec) [Mass/Vol] 4.3 mmol/L 3.3-5.1 [facility] ,Serum,hCG Quali.on 06-21-2025 HCG, SERUM QUAL Negative Normal [facility] Comment on above: Performed By: #### M 8200.2203 #### [facility] [address] [place], [address] Protein Test strip Ql (U)Ord ered By: Joseph Tomas on 06-21-2025 Protein Ql (U) Negative Negative [facility] RBC Auto (Bld) [#/Vol]Ordere d By: ED PROVIDER on 06-21-2025 RBC (Bld) [#/Vol] 4.93 10*6/uL 4.2-5.4 [facility] Serum beta-hCG test, qualita tiveOrdered By: Joseph Tomas on 06-21-2025 Beta HCG ( test) Ql Negative [facility] Serum creatinine measurement (mass/volume)Ordered By: Joseph Tomas on 06-21-2025 Creatinine [Mass/Vol] 0.70 mg/dL 0.70-1.20 [facility] Serum globulin measurementOr dered By: Joseph Tomas on 06-21-2025 Globulin (S) [Mass/Vol] 3.3 g/dL 2.2-4.2 [facility] Serum glucose measurement (m ass/volume)Ordered By: Joseph Tomas on 06-21-2025 Glucose [Mass/Vol] 89 mg/dL 70-99 [facility] Serum or plasma alanine caceres otransferase (ALT) measurementOrdered By: Joseph Tomas on 06-21-2025 ALT [Catalytic activity/Vol] 13 U/L <35 [facility] Serum or plasma albumin cornelio urement (mass/volume)Ordered By: Joseph Tomas on 06-21-2025 Albumin [Mass/Vol] 4.1 g/dL 3.5-5.0 [facility] Serum or plasma albumin/glob ulin mass ratioOrdered By: Joseph Tomas on 06-21-2025 Albumin/Globulin [Mass ratio] 1.2 {ratio} 0.9-2.4 [facility] Serum or plasma alkaline derrick sphatase measurementOrdered By: Joseph Tomas on 06-21-2025 ALP [Catalytic activity/Vol] 141 U/L High 35-104 [facility] Serum or plasma calcium cornelio urement (mass/volume)Ordered By: Joseph Tomas on 06-21-2025 Calcium [Mass/Vol] 9.5 mg/dL 7.6-11.0 [facility] Serum or plasma urea nitroge n measurement (mass/volume)Ordered By: Joseph Tomas on 06-21-2025 Urea nitrogen [Mass/Vol] 8 mg/dL 4-19 [facility] Sodium levelOrdered By: Joseph Tomas on 06-21-2025 Sodium [Moles/Vol] 137 mmol/L 133-145 [facility] Squamous epithelial cells de tection in urine sediment by light microscopyOrdered By: Joseph Tomas on 06-21-2025 Epithelial cells.squamous LM Ql (Urine sed) 5-10 SEEN /hpf - [facility] Total proteinOrdered By: Tate Tomas on 06-21-2025 Protein [Mass/Vol] 7.4 g/dL 5.9-8.4 [facility] Urinalysis, Completeon 06-21 TRICHOMONAS 0-5 SEEN Normal None Seen [facility] Comment on above: Order Comment: CLEAN CATCH Performed By: #### L 400.0001 #### [facility] [address] [place], [place], [id number] EPI,SQUAMOUS 5-10 SEEN Normal 5-10 [facility] Comment on above: Order Comment: CLEAN CATCH Performed By: #### L 400.0001 #### [facility] [address] [place], [address] WBC 0-5 SEEN Normal 0-5 [facility] Comment on above: Order Comment: CLEAN CATCH Performed By: #### L 400.0001 #### [facility] [address] [place], [address] BACTERIA 0 SEEN Normal None Seen [facility] Comment on above: Order Comment: CLEAN CATCH Performed By: #### L 400.0001 #### [facility] [address] [place], [address] Mucus Ql (Urine sed) 0 SEEN Normal [facility] Comment on above: Order Comment: CLEAN CATCH Performed By: #### L 400.0001 #### [facility] [address] [place], [place], [id number] RBC 0 SEEN Normal 0-5 [facility] Comment on above: Order Comment: CLEAN CATCH Performed By: #### L 400.0001 #### [facility] [address] [place], [place], [id number] Urine clarityOrdered By: aTte Tomas on 06-21-2025 Clarity (U) Clear Clear [facility] Urine color determinationOrd ered By: Joseph Tomas on 06-21-2025 Color (U) Straw Yellow [facility] Urine glucose detectionOrder ed By: Joseph Tomas on 06-21-2025 Glucose Ql (U) Normal mg/dl Normal [facility] Urine leukocyte esterase det ection by dipstickOrdered By: Joseph Tomas on 06-21-2025 Leukocyte esterase Test strip Ql (U) Negative Negative [facility] Urine pHOrdered By: Joseph fountain on 06-21-2025 pH (U) 6.0 [pH] 5.0 - 8.0 [facility] Urine sediment Trichomonas s pecies count by microscopy (number/low power field)Ordered By: Joseph Tomas on 06-21-2025 Trichomonas sp LM.LPF (Urine sed) [#/Area] 0-5 SEEN /hpf None Seen [facility] Urine sediment bacteria coun t by microscopy (number/high power field)Ordered By: Joseph Tomas on 06-21-2025 Bacteria LM.HPF (Urine sed) [#/Area] 0 /[HPF] None Seen [facility] Urine specific gravity measu rementOrdered By: Joseph Tomas on 06-21-2025 Specific gravity (U) [Rel density] 1.010 1.002-1.030 [facility] Urine urobilinogen measureme ntOrdered By: Joseph Tomas on 06-21-2025 Urobilinogen Ql (U) Normal mg/dl Normal [facility] White blood cell (WBC) count Ordered By: ED PROVIDER on 06-21-2025 WBC (Bld) [#/Vol] 13.4 10*3/uL High 4.4-11.0 [facility] White blood cell countOrdere d By: Joseph Tomas on 06-21-2025 White blood cell count 0-5 SEEN /hpf 0-5 [facility] CBC W Auto Differential pane l (Bld)on 06-18-2025 Basophils (Bld) [#/Vol] 0.08 10*3/uL [facility] Basophils/100 WBC (Bld) 0.6 % [facility] Differential cell count method Nom (Bld) Auto [facility] Eosinophils (Bld) [#/Vol] 0.45 10*3/uL [facility] Eosinophils/100 WBC (Bld) 3.4 % [facility] Erythrocyte distribution width (RBC) [Ratio] 16.2 % High 11.5 - 15.0 % [facility] Hematocrit (Bld) [Volume fraction] 44.7 % 36.0 - 46.0 % [facility] Hemoglobin (Bld) [Mass/Vol] 14.0 g/dL 11.5 - 15.5 g/dL [facility] Immature granulocytes (Bld) [#/Vol] 0.13 10*3/uL High [facility] Immature granulocytes/100 WBC (Bld) 1.0 % [facility] Interpretation and review of laboratory results Abnormal [facility] Lymphocytes (Bld) [#/Vol] 3.49 10*3/uL [facility] Lymphocytes/100 WBC (Bld) 26.3 % [facility] MCH (RBC) [Entitic mass] 28.9 pg 26. 0 - 34.0 pg [facility] MCHC (RBC) [Mass/Vol] 31.3 g/dL 30.5 - 36.0 g/dL [facility] MCV (RBC) [Entitic vol] 92.4 fL 80.0 - 100.0 fL [facility] Monocytes (Bld) [#/Vol] 1.44 10*3/uL High [facility] Monocytes/100 WBC (Bld) 10.9 % [facility] Neutrophils (Bld) [#/Vol] 7.67 10*3/uL High [facility] Neutrophils/100 WBC (Bld) 57.8 % [facility] Nucleated RBC (Bld) [#/Vol] [facility] Nucleated RBC/100 WBC (Bld) [Ratio] 0.0 % /100 WBC [facility] Platelet mean volume (Bld) [Entitic vol] 11.0 fL 9.0 - 12.7 fL [facility] Platelets (Bld) [#/Vol] 418 10*3/uL High [facility] RBC (Bld) [#/Vol] 4.84 10*6/uL 3.90 - 5.2 0 m/uL [facility] WBC (Bld) [#/Vol] 13.26 10*3/uL High [facility] Basophils (Bld) [#/Vol] 0.08 10*3/uL Normal <0.11 [facility] Comment on above: Order Comment: Speci men Type: BLOOD SPECIMENOrdering Facility: [facility] Address: [address] [place] [address] Performed By: #### 5 7021-8 ####[facility] [id number] [place] [address] [place] Basophils/100 WBC (Bld) 0.6 % Normal [facility] Comment on above: Order Comment: Speci men Type: BLOOD SPECIMENOrdering Facility: [facility] Address: [address] [place] [address] Performed By: #### 5 7021-8 ####[facility] [id number] [place] [address] [place] Differential cell count method Nom (Bld) Auto Normal [facility] Comment on above: Order Comment: Speci men Type: BLOOD SPECIMENOrdering Facility: [facility] Address: [address] [place] [address] Performed By: #### 5 7021-8 ####[facility] [id number] [place] [address] [place] Eosinophils (Bld) [#/Vol] 0.45 10*3/uL Normal <0.46 [facility] Comment on above: Order Comment: Speci men Type: BLOOD SPECIMENOrdering Facility: [facility] Address: [address] [place] [address] Performed By: #### 5 7021-8 ####[facility] [id number] [place] [address] [place] Eosinophils/100 WBC (Bld) 3.4 % Normal [facility] Comment on above: Order Comment: Speci men Type: BLOOD SPECIMENOrdering Facility: [facility] Address: [address] [place] [address] Performed By: #### 5 7021-8 ####[facility] [id number] [place] [address] [place] Erythrocyte distribution width (RBC) [Ratio] 16.2 % High 11.5-15.0 [facility] Comment on above: Order Comment: Speci men Type: BLOOD SPECIMENOrdering Facility: [facility] Address: [address] [place] [address] Performed By: #### 5 7021-8 ####[facility] [id number] [place] [address] [place] Hematocrit (Bld) [Volume fraction] 44.7 % Normal 36.0-46.0 [facility] Comment on above: Order Comment: Speci men Type: BLOOD SPECIMENOrdering Facility: [facility] Address: [address] [place] [address] Performed By: #### 5 7021-8 ####[facility] [id number] [place] [address] [place] Hemoglobin (Bld) [Mass/Vol] 14.0 g/dL Normal 11.5-15.5 [facility] Comment on above: Order Comment: Speci men Type: BLOOD SPECIMENOrdering Facility: [facility] Address: [address] [place] [address] Performed By: #### 5 7021-8 ####[facility] [id number] [place] [address] [place] Immature granulocytes (Bld) [#/Vol] 0.13 10*3/uL High <0.10 [facility] Comment on above: Order Comment: Speci men Type: BLOOD SPECIMENOrdering Facility: [facility] Address: [address] [place] [address] Performed By: #### 5 7021-8 ####[facility] [id number] [place] [address] [place] Immature granulocytes/100 WBC (Bld) 1.0 % Normal [facility] Comment on above: Order Comment: Speci men Type: BLOOD SPECIMENOrdering Facility: [facility] Address: [address] [place] [address] Performed By: #### 5 7021-8 ####[facility] [id number] [place] [address] [place] Lymphocytes (Bld) [#/Vol] 3.49 10*3/uL Normal 1.00-4.00 [facility] Comment on above: Order Comment: Speci men Type: BLOOD SPECIMENOrdering Facility: [facility] Address: [address] [place] [address] Performed By: #### 5 7021-8 ####[facility] [id number] [place] [address] [place] Lymphocytes/100 WBC (Bld) 26.3 % Normal [facility] Comment on above: Order Comment: Speci men Type: BLOOD SPECIMENOrdering Facility: [facility] Address: [address] [place] [address] Performed By: #### 5 7021-8 ####[facility] [id number] [place] [address] [place] MCH (RBC) [Entitic mass] 28.9 pg Normal 26.0-34.0 [facility] Comment on above: Order Comment: Speci men Type: BLOOD SPECIMENOrdering Facility: [facility] Address: [address] [place] [address] Performed By: #### 5 7021-8 ####[facility] [id number] [address], [facility]95 [place] MCHC (RBC) [Mass/Vol] 31.3 g/dL Normal 30.5-36.0 [facility] Comment on above: Order Comment: Speci men Type: BLOOD SPECIMENOrdering Facility: [facility] Address: [address] [place] [address] Performed By: #### 5 7021-8 ####[facility] [id number] [address], [place] [address] [place] MCV (RBC) [Entitic vol] 92.4 fL Normal 80.0-100.0 [facility] Comment on above: Order Comment: Speci men Type: BLOOD SPECIMENOrdering Facility: [facility] Address: [address] [place] [address] Performed By: #### 5 7021-8 ####[facility] [id number] [address], [place] [address] [place] Monocytes (Bld) [#/Vol] 1.44 10*3/uL High <0.87 [facility] Comment on above: Order Comment: Speci men Type: BLOOD SPECIMENOrdering Facility: [facility] Address: [address] [place] [address] Performed By: #### 5 7021-8 ####[facility] [id number] [facility] [place] [id number] [place] Monocytes/100 WBC (Bld) 10.9 % Normal [facility] Comment on above: Order Comment: Speci men Type: BLOOD SPECIMENOrdering Facility: [facility] Address: [address] [place] [address] Performed By: #### 5 7021-8 ####[facility] [id number] [place] [id number] [place] Neutrophils (Bld) [#/Vol] 7.67 10*3/uL High 1.45-7.50 [facility] Comment on above: Order Comment: Speci men Type: BLOOD SPECIMENOrdering Facility: [facility] Address: [address] [place] [address] Performed By: #### 5 7021-8 ####[facility] [id number] [facility] [place] [address] [place] Neutrophils/100 WBC (Bld) 57.8 % Normal [facility] Comment on above: Order Comment: Speci men Type: BLOOD SPECIMENOrdering Facility: [facility] Address: [address] [place] [address] Performed By: #### 5 7021-8 ####[facility] [id number] [place] [address] [place] Nucleated RBC (Bld) [#/Vol] 10*3/uL Normal <0.01 [facility] Comment on above: Order Comment: Speci men Type: BLOOD SPECIMENOrdering Facility: [facility] Address: [address] [place] [address] Performed By: #### 5 7021-8 ####[facility] [id number] [place] [address] [place] Nucleated RBC/100 WBC (Bld) [Ratio] 0.0 /100 WBC Normal [facility] Comment on above: Order Comment: Speci men Type: BLOOD SPECIMENOrdering Facility: [facility] Address: [address] [place] [address] Performed By: #### 5 7021-8 ####[facility] [id number] [place] [address] [place] Platelet mean volume (Bld) [Entitic vol] 11.0 fL Normal 9.0-12.7 [facility] Comment on above: Order Comment: Speci men Type: BLOOD SPECIMENOrdering Facility: [facility] Address: [address] [place] [address] Performed By: #### 5 7021-8 ####[facility] [id number] [place] [address] [place] Platelets (Bld) [#/Vol] 418 10*3/uL High 150-400 [facility] Comment on above: Order Comment: Speci men Type: BLOOD SPECIMENOrdering Facility: [facility] Address: [address] [place] [address] Performed By: #### 5 7021-8 ####[facility] [id number] [place] [address] [place] RBC (Bld) [#/Vol] 4.84 10*6/uL Normal 3.90-5.[address] [facility] Comment on above: Order Comment: Speci men Type: BLOOD SPECIMENOrdering Facility: [facility] Address: [address] [place] [address] Performed By: #### 5 7021-8 ####[facility] [id number] [place] [address] [place] WBC (Bld) [#/Vol] 13.26 10*3/uL High 3.70-11.00 [facility] Comment on above: Order Comment: Speci men Type: BLOOD SPECIMENOrdering Facility: [facility] Address: [address] [place] [address] Performed By: #### 5 7021-8 ####[facility] [id number] [place] [id number] [facility] [place] CNOVon 06-18-2025 CNOV Office Visit (FAMPWS ) CALLBEV ([id number]) 1975 F Date Time Provider Department 06/18/25 9:40 AM AMITA POPE During your visit today, we recorded the following information about you: Temperature Pulse Blood pressure Weight 96.7 degrees 83/minute 122/86 74.8 kg Amita Ppoe APRN.[facility] 06/18/2025 10:12 AM Addendum This is a [...] as instructed (more content not included)... Normal [facility] 06-18-2025 [facility] Telephone (FAMPWS) CALL,BEV Gerardo ([id number]) 1975 F Date Time Provider Department 06/18/25 AMITA POPE [facility] During your visit today, we recorded the following information about you: Harmeet Soto LPN 06/18/2025 2:09 PM Signed [facility] sends fax with suggested alternatives for Metro get 1% that was ordered. Metro topical 0.75% gel Metro 0.75% cream Metro 0.75% lotion Amita Pope APRN.[facility] 06/18/2025 2:57 PM Signed Did the gel 2 x day- please let pt. know Debbie Nichols MA 06/18/2025 4:07 PM Signed No answer, no voicemail. Debbie Nichols MA June 18, 2025 4:07 PM Debbie Nichols MA 06/25/2025 10:46 AM Signed Attempted to call pt, no answer, voicemail full. Dbebie Nichols MA June 25, 2025 10:46 AM Allergies As of Date: 06/18/2025 Noted Allergy Reaction DOXYCYCLINE 08/16/2006 ENTEX (PHENYLEPHRINE-GUAIFE [...] HCL) 08/16/2006 2 - Rash Date Reviewed: 06/18/2025 Reviewed by: Debbie Nichols MA - Fully Assessed Reason for Visit: Insurance Authorization [[id number]] Cmt: Metronidazole Primary Visit Diagnosis:Rosacea [L71.9] Order(s):metroNIDAZOL E (METROGEL) 0.75 % Topical GelApply to affected area two times a day.Disp: 45 gRfl: 2 Prescriptions as of 06/28/2025 - pantoprazole DR (PROTONIX) 40 mg tablet TAKE 1 TABLET BY MOUTH ON AN EMPTY STOMACH 1/2 HOUR BEFORE A MEAL TWICE DAILY - venlafaxine (EFFEXOR) 50 mg tablet Take 1 tablet by mouth once daily. - venlafaxine ER (EFFEXOR XR) 150 mg 24 hr capsule Take 1 capsule by mouth once daily. in addition to Venlafaxine 50 mg tablet daily - gabapentin (NEURONTIN) 400 mg capsule Take 1 capsule by mouth three times a day for 180 days. - metroNIDAZOLE (METROGEL) 0.75 % Topical Gel Apply to affected area two times a day. - cetirizine (ZYRTEC) 10 mg tablet Take 1 tablet by mouth once daily. - ferrous sulfate 325 mg (65 mg iron) tablet Take 1 tablet by mouth once daily. - albuterol HFA (VENTOLIN HFA) 90 [...] DAILY NEEDED. Problem List As Of Date 06/18/2025 Noted Resolved Grief reaction [F43.20] 08/16/2006 Anxiety [...] 09/17/2009 04/27/2017 [facility]*01/15/2011 08/09/2012 Class: Chronic Routine gynecological examination [Z01.419] 01/15/2011 08/09/2012 Class: Chronic GERD (gastroesophageal reflux disease) [K21.9] 01/15/2011 PUD (peptic ulcer disease) [K27.9] 01/15/2011 Tinea versicolor [B36.0] 01/29/2011 09/24/2014 Post-inflammatory hyperpigmentation [L81.0] 01/29/2011 09/24/2014 Pruritus [L29.9] 01/29/2011 09/24/2014 Hyperlipidemia [E78.5] 05/22/2014 Coronary artery disease involving [place] benoit*06/06/2014 Lymphadenopathy [R59.1] 06/06/2014 04/27/2017 Herpes simplex [...] [F17.209] Abscess of left hand [L02.512] 11/24/2022 Prescriptions ordered this encounter Disp Refills Start End METRONIDAZOLE 0.75 % TOPICAL GEL 45 g 2 06/18/2025 09/16/2025 Cmt: 0.5 (more content not included)... Normal [facility] Comprehensive metabolic 2000 panelon 06-18-2025 Albumin [Mass/Vol] 4.0 g/dL Normal 3.9-4.9 [facility] Comment on above: Order Comment: Speci men Type: BLOOD SPECIMENOrdering Facility: [facility] Address: [address] [place] [address] Performed By: #### L IPNF, 19891-2, 3015-3, 35429-4 ####[facility] [id number] [place] [address] [place] ALP [Catalytic activity/Vol] 117 U/L Normal 34-123 [facility] Comment on above: Order Comment: Speci men Type: BLOOD SPECIMENOrdering Facility: [facility] Address: [address] [place] [address] Performed By: #### L IPNF, 31626-0, 301-3, 01327-3 ####[facility] [id number] [address] [address] [place] ALT [Catalytic activity/Vol] 16 U/L Normal 7-38 [facility] Comment on above: Order Comment: Speci men Type: BLOOD SPECIMENOrdering Facility: [facility] Address: [address] [place] [address] Performed By: #### L IPNF, 60363-3, 3016-3, 19939-0 ####[facility] [id number] [address] [address] [place] Anion gap [Moles/Vol] 14 mmol/L Normal 8-15 [facility] Comment on above: Order Comment: Speci men Type: BLOOD SPECIMENOrdering Facility: [facility] Address: [address] [place] [address] Performed By: #### L IPNF, 68379-6, 3, ####[facility] [id number] [address] [address] [place] AST [Catalytic activity/Vol] 15 U/L Normal 13-35 [facility] Comment on above: Order Comment: Speci men Type: BLOOD SPECIMENOrdering Facility: [facility] Address: [address] [place] [address] Performed By: #### L IPNF, 70982-2, 3, ####[facility] [id number] [address] [address] [place] Bilirubin [Mass/Vol] 0.2 mg/dL Normal 0.2-1.3 [facility] Comment on above: Order Comment: Speci men Type: BLOOD SPECIMENOrdering Facility: [facility] Address: [address] [place] [address] Performed By: #### L IPNF, 65629-8, 3, ####[facility] [id number] [address] [address] [place] Calcium [Mass/Vol] 9.3 mg/dL Normal 8.5-10.2 [facility] Comment on above: Order Comment: Speci men Type: BLOOD SPECIMENOrdering Facility: [facility] Address: [address] [place], [place] [address] Performed By: #### L IPNF, 32957-1, 3, 92824-2 ####[facility] [id number] [address] [address] [place] Chloride [Moles/Vol] 103 mmol/L Normal 98-107 [facility] Comment on above: Order Comment: Speci men Type: BLOOD SPECIMENOrdering Facility: [facility] Address: [address] [place] [address] Performed By: #### L IPNF, 67429-5, 6-3, 69254-5 ####[facility] [id number] [address] [address] [place] CO2 [Moles/Vol] 20 mmol/L Low 22-30 [facility] Comment on above: Order Comment: Speci men Type: BLOOD SPECIMENOrdering Facility: [facility] Address: [address] [place] [address] Performed By: #### L IPNF, 21923-1, 3015-3, 31914-2 ####[facility] [id number] [place] [address] [place] Creatinine [Mass/Vol] 0.76 mg/dL Normal 0.58-0.96 [facility] Comment on above: Order Comment: Speci men Type: BLOOD SPECIMENOrdering Facility: [facility] Address: [address] [place] [address] Performed By: #### L IPNF, 37619-4, 3015-3, 64228-3 ####[facility] [id number] [place] [id number] [place] eGFRcr SerPlBld CKD-EPI 2020 96 mL/min/1.73m??? Normal >=60 [facility] Comment on above: Order Comment: Speci men Type: BLOOD SPECIMENOrdering Facility: [facility] Address: [address] [place] [address] Result Comment: Betty mated Glomerular Filtration Rate [...] accurately reflect actual GFR. Performed By: #### L IPNF, 40799-3, 3015-3, ####[facility] [id number] [address] [address] [place] Glucose [Mass/Vol] 65 mg/dL Low 74-99 [facility] Comment on above: Order Comment: Samson morrow Type: BLOOD SPECIMENOrdering Facility: [facility] Address: [address] [place] [address] Result Comment: The [place] Diabetes Association (ADA) provides guidance for cutoff [...] Standards of Medical Care in Diabetes 2016, [place] Diabetes Association. Diabetes Care. 2016.39(Suppl 1). Performed By: #### L IPAMALIA, 65256-8, 3016-01, ####[facility] [id number] [address] [address] [place] Potassium [Moles/Vol] 4.4 mmol/L Normal 3.7-5.1 [facility] Comment on above: Order Comment: Samson morrow Type: BLOOD SPECIMENOrdering Facility: [facility] Address: [address] [place] [address] Performed By: #### L IPNF, 86314-9, 3016-01, ####[facility] [id number] [address] [address] [place] Protein [Mass/Vol] 6.7 g/dL Normal 6.3-8.0 [facility] Comment on above: Order Comment: Speci men Type: BLOOD SPECIMENOrdering Facility: [facility] Address: [address] [place] [address] Performed By: #### L IPNF, 86838-9, 3016-3, 27351-2 ####[facility] [id number] [place] [id number] [place] Sodium [Moles/Vol] 137 mmol/L Normal 136-144 [facility] Comment on above: Order Comment: Speci men Type: BLOOD SPECIMENOrdering Facility: [facility] Address: [address] [place] [address] Performed By: #### L IPNF, 69147-1, 3015-3, 50991-4 ####[facility] [id number] [place] [address] [place] Urea nitrogen [Mass/Vol] 8 mg/dL Normal 7-21 [facility] Comment on above: Order Comment: Speci men Type: BLOOD SPECIMENOrdering Facility: [facility] Address: [address] [place] [address] Performed By: #### L IPNF, 10302-1, 3015-3, 42642-9 ####[facility] [id number] [place] [id number] [place] HbA1c (Bld)on 06-18-2025 Average glucose Estimated from glycated hemoglobin (Bld) [Mass/Vol] 103 mg/dL [facility] Comment on above: eAG: (Estimated aver age glucose) is a calculated value from HgbA1c and is patient care representative of the average blood glucose level in the last 2-3 month period. HbA1c (Bld) [Mass fraction] 5.2 % 4.3 - 5.6 % [facility] Comment on above: [place] Diabetes As sociation guidelines indicate that patients with HgbA1c in the range 5.7-6.4% are at increased risk for development of diabetes, and intervention by lifestyle modification may be beneficial. HgbA1c greater or equal to 6.5% is considered diagnostic of diabetes. [facility] Average glucose Estimated from glycated hemoglobin (Bld) [Mass/Vol] 103 mg/dL Normal [facility] Comment on above: Order Comment: Samson morrow Type: BLOOD SPECIMENOrdering Facility: [facility] Address: [address] [place] [address] Result Comment: eAG: (Estimated average glucose) is a calculated value from HgbA1c and is patient care representative of the average blood glucose level in the last 2-3 month period. Performed By: #### 5 5454-3 ####[facility] [id number] [address] [place] OF [facility] HbA1c (Bld) [Mass fraction] 5.2 % Normal 4.3-5.6 [facility] Comment on above: Order Comment: Samson morrow Type: BLOOD SPECIMENOrdering Facility: [facility] Address: [address] [place] [address] Result Comment: [place] Diabetes Association guidelines indicate that patients with HgbA1c in the range 5.7-6.4% are at increased risk for development of diabetes, and intervention by lifestyle modification may be beneficial. HgbA1c greater or equal to 6.5% is considered diagnostic of diabetes. Performed By: #### 5 5454-3 ####[facility] [id number] [place] [address] [place] Iron and Iron binding capaci ty panelon 06-18-2025 Iron [Mass/Vol] 40 ug/dL Low 41-186 [facility] Comment on above: Order Comment: Samson morrow Type: BLOOD SPECIMENOrdering Facility: [facility] Address: [address] [place] [address] Performed By: #### L IPNF, 02374-6, 3016-3, 66191-8 ####[facility] [id number] [address] [place] Iron binding capacity [Mass/Vol] 373 ug/dL Normal 232-386 [facility] Comment on above: Order Comment: Speci men Type: BLOOD SPECIMENOrdering Facility: [facility] Address: [address] [place] [address] Performed By: #### L IPNF, 03559-3, 3016-3, 62405-9 ####[facility] [id number] [place] [address] [place] Iron/TIBC [Molar ratio] 10.7 % Low 15.0-57.0 [facility] Comment on above: Order Comment: Speci men Type: BLOOD SPECIMENOrdering Facility: [facility] Address: [address] [place] [address] Performed By: #### L IPNF, 14483-5, 3016-3, 19725-9 ####[facility] [id number] [place] [address] [place] LIPID PANEL, NONFASTINGon Cholesterol [Mass/Vol] 276 mg/dL High <200 [facility] Comment on above: Order Comment: Speci men Type: BLOOD SPECIMENOrdering Facility: [facility] Address: [address] [place] [address] Result Comment: <200 mg/dL, Desirable 200-239 mg/dL, Borderline high >239 mg/dL, High Performed By: #### L IPNF, 35358-9, 3016-3, 09980-7 ####[facility] [id number] [place] [id number] [place] HDL CHOLESTEROL, NF 42 mg/dL Normal >[address] [facility] Comment on above: Order Comment: Speci men Type: BLOOD SPECIMENOrdering Facility: [facility] Address: [address] [place] [address] Result Comment: 40-5 9 mg/dL, Acceptable >59 mg/dL, High: Negative risk factor for coronary heart disease <40 mg/dL, Low: Positive risk factor for coronary heart disease Performed By: #### L IPAMALIA, 91993-2, 3, ####[facility] [id number] [address] LDL CHOLESTEROL CALCULATED, NF 185 mg/dL High <100 [facility] Comment on above: Order Comment: Speci men Type: BLOOD SPECIMENOrdering Facility: [facility] Address: [address] [place] [address] Result Comment: <100 mg/dL, Optimal 100-129 mg/dL, Near optimal/above optimal 130-159 mg/dL, Borderline high 160-189 mg/dL, High >189 mg/dL, Very high Secondary prevention optimal LDL Cholesterol levels are recommended to be <70 mg/dL LDL cholesterol is calculated using the Quiñones-NIH equation. Performed By: #### L ZEFERINO, 81700-8, 3016-01, ####[facility] [id number] [address] LDL/HDL RATIO, NF 4.40 mg/dL High <2.54 [facility] Comment on above: Order Comment: Samson morrow Type: BLOOD SPECIMENOrdering Facility: [facility] Address: [address] [place] [address] Result Comment: Refe rence: 1. National Cholesterol Education Program ATP III Guideline At-A-Glance Quick Desk Reference: National Heart, Lung, and Blood Palmer. National Institutes of Health. 2001: NIH Publication No. 01-3305. 2. An International Atherosclerosis Society position paper: global recommendations for the management of dyslipidemia: executive summary, Atherosclerosis. 2014: 232(2):410-413. Performed By: #### L ZEFERINO, 96017-5, 3015-, ####[facility] [id number] [place] [id number] [place] NON HDL CHOL, NF 234 mg/dL High <130 [facility] Comment on above: Order Comment: Speci men Type: BLOOD SPECIMENOrdering Facility: [facility] Address: [address] [place], [place] [address] Result Comment: <130 mg/dL, Optimal 130-159 mg/dL, Near optimal/above optimal 160-189 mg/dL, Borderline high 190-219 mg/dL, High >219 mg/dL, Very high Secondary prevention optimal non HDL Cholesterol levels are recommended to be <100 mg/dL Performed By: #### L IPNF, 03064-2, 3016-3, 95738-8 ####[facility] [id number] [address] [address] [place] T CHOL/HDL RATIO NF 6.57 mg/dL High <5.[address] [facility] Comment on above: Order Comment: Speci men Type: BLOOD SPECIMENOrdering Facility: [facility] Address: [address] [place] [address] Performed By: #### L IPNF, 04153-0, 3015-3, 72762-8 ####[facility] [id number] [address] [address] [place] TRIGLYCERIDES, NF 254 mg/dL High <150 [facility] Comment on above: Order Comment: Speci men Type: BLOOD SPECIMENOrdering Facility: [facility] Address: [address] [place] [address] Result Comment: <150 mg/dL, Normal 150-199 mg/dL, Borderline high 200-499 mg/dL, High >499 mg/dL, Very high Performed By: #### L IPNF, 09496-3, 3015-3, 66189-1 ####[facility] [id number] [address] [address] [place] VLDL CHOLESTEROL, NF 52 mg/dL High <30 [facility] Comment on above: Order Comment: Speci men Type: BLOOD SPECIMENOrdering Facility: [facility] Address: [address] [place] [address] Performed By: #### L IPNF, 60638-0, 3016-3, 42813-1 ####[facility] [id number] [place] [id number] [place] TSH SerPl-aCncon 06-18-2025 TSH Qn 0.318 m[IU]/L Normal 0.270-4.200 [facility] Comment on above: Order Comment: Speci men Type: BLOOD SPECIMENOrdering Facility: [facility] Address: [address] [place] [address] Result Comment: If t he patient is , TSH reference range varies by gestational period: First Trimester (weeks 9-12): 0.180-2.990 mIU/L Second Trimester: 0.110-3.980 mIU/L Third Trimester: 0.480-4.710 mIU/L Mango Bernard et al. A Practical Approach for the Verifications and Determination of Site- and Trimester-Specific Reference Intervals for Thyroid Function tests in . Thyroid, 2019:29:3:412-420. Ernst Gerardo, et al. 2017 Guidelines of the [place] [employer] for the Diagnosis and Management of Thyroid Disease during and the . Thyroid, 2017:27:3:315-389. Performed By: #### L IPNF, 42554-2, 3016-3, 32344-3 ####[facility] [id number] [place] [id number] [place] Vit B12 SerPl-mCncon 025 Cobalamin (Vitamin B12) [Mass/Vol] 173 pg/mL Low 232-1245 [facility] Comment on above: Order Comment: Speci men Type: BLOOD SPECIMENOrdering Facility: [facility] Address: [address] [place] [address] Performed By: #### 2 132-9 ####[facility] [id number] [place] [id number] [place] XR HAND 3V PA/LAT/OBL LTon 0 06-18-2025 XR HAND 3V PA/LAT/OBL LT * * *Final Repo rt* * * DATE OF EXAM: Jun 18 2025 10:39AM WOX [id number] - XR HAND 3V PA/LAT/OBL LT / PROCEDURE REASON: Thumb pain, left * * * * Physician Interpretation * * * * HISTORY: Thumb pain, left . Chronic pain in MCP of left thumb, hx of carpal tunnel surgery. TECHNIQUE: XR HAND 3V PA/LAT/OBL LT Laterality: LEFT Number of different views (projections): 3 COMPARISON: None RESULT: No acute fracture or dislocation. Moderate to severe first CMC narrowing with sclerosis, osteophytes, and subchondral cysts including prominent subchondral cysts involving the radial aspect of the first metacarpal base measuring up to 0.9 cm. Moderate lateral subluxation of the first metacarpal base at the first CMC joint. No visualized erosion. Soft tissues are unremarkable. IMPRESSION: Marked first CMC osteoarthritis with prominent subchondral cystlike lucency of the first metacarpal base and moderate subluxation. Stage Set Up Worker: BABAK Transcribe Date/Time: Jun 24 2025 6:35P Dictated by : DOMINIQUE OSWALD MD This examination was interpreted and the report reviewed and electronically signed by: DOMINIQUE OSAWLD MD on Jun 24 2025 6:37PM EST [id number] Normal [facility] CNOVon 06-07-2025 CNOV Office Visit (WOUCA) CALLBEV ([id number]) 1975 F Date Time Provider Department 06/07/25 [...] MD 06/07/2025 4:47 PM Signed [facility] Vicente Webb is a 50 year old [...] chest conge (more content not included)... [facility] Telephone (HEMAWS) CALL,BEV Gerardo ([id number]) 1975 F Date Time Provider Department 02/04/25 DEVIN DONALD During your visit today, we [...] Date Reviewed: 01/29/2025 Reviewed by: Amita Pope APRN.INTERNATIONAL PROJECT MANAGER - Fully Assessed Reason for Visit: Results [...] 09/17/2009 04/27/2017 [facility]*01/15/2011 08/09/2012 Class: Chronic Routine gynecological examination [Z01.419] 01/15/2011 08/09/2012 Class: Chronic GERD (gastroesophageal reflux disease) [K21.9] 01/15/2011 PUD (peptic ulcer disease) [K27.9] 01/15/2011 Tinea versicolor [B36.0] 01/29/2011 09/24/2014 Post-inflammatory hyperpigmentation [L81.0] 01/29/2011 09/24/2014 Pruritus [L29.9] 01/29/2011 09/24/2014 Hyperlipidemia [E78.5] 05/22/2014 Coronary artery disease involving shaktoolik benoit*06/06/2014 Lymphadenopathy [R59.1] 06/06/2014 04/27/2017 Herpes simplex [...] ANNE OLSEN on 02/04/[address] [facility] CNOVon 01-29-2025 CNOV Office Visit (FAMPWS ) CALL,BEV Gerardo ([id number]) 1975 F Date Time Provider Department 01/29/25 1:20 PM AMITA POPE During your visit today, we recorded the following information about you: Temperature Pulse Blood pressure Weight 97 degrees 90/minute 134/82 75.3 kg Amita Pope APRN.CNP 01/29/2025 1:25 PM Signed This is a 50 year old female who presents today with: Patient presents with: Follow Up HISTORY OF PRESENT ILLNESS: Bev Gerardo Call is a 50 year old [...] SEPTOPLASTY/SUBMUCOUS RESECJ W/WO CARTILAGE GRF [facility] 07/09/2009 LEFT BREAST ALLERGIES [...] (Left Tympanic) (more content not included)... Normal [facility] BCR/ABL1 P190 NCN P210 % IS BLOODon 01-25-2025 BCR/ABL1 P190 NCN(%BCR/ABL1:ABL1) N/A Normal [facility] Comment on above: Order Comment: Speci men Type: BLOOD SPECIMENOrdering Facility: [facility] Address: [address] [place] [address] Performed By: #### I SMRNCNPB ####[facility] [id number] [place] [address] [place]#### BCRPB1 ####[facility] LIMSCLIA [id number] [place] [address] [place] BCR/ABL1 P210 %IS N/A Normal [facility] Comment on above: Order Comment: Speci men Type: BLOOD SPECIMENOrdering Facility: [facility] Address: [address] [place] [address] Performed By: #### I SMRNCNPB ####[facility] LABCLIA [id number] [place] [address] [place]#### BCRPB1 ####[facility] LIMSCLIA [id number] [place] [address] [place] BCR/ABL1 P210 MR N/A Normal [facility] Comment on above: Order Comment: Speci men Type: BLOOD SPECIMENOrdering Facility: [facility] Address: [address] [place] [address] Performed By: #### I SMRNCNPB ####[facility] LABCLIA [id number] [place] [address] [place]#### BCRPB1 ####[facility] LIMSCLIA [id number] [facility] [place] [id number] [place] BCR/ABL1 P210 AND P190 DIAGN OSTIC PCR BLOODon 01-25-2025 BCR/ABL1 P210 AND P190 DIAGNOSTIC PCR BLOOD RESULT Normal [facility] Comment on above: Order Comment: Speci men Type: BLOOD SPECIMENOrdering Facility: [facility] Address: [facility] [place] [address] Result Comment: BCR/ ABL1 p210 and p190 Diagnostic PCR Laboratory Accession Number: [id number] Sample Type: Peripheral Blood Result: NOT DETECTED; [...] this sample, and cDNA prepared by reverse microbiological lab technician. Real time PCR was performed in two separate reactions, using primers for e13a2 and/or e14a2 BCR/ABL1 fusion transcripts and ABL1 transcripts for p210 detection and primers for e1a2 BCR/ABL1 fusion transcripts and ABL1 transcripts for p190 detection (QuantideX BCR/ABL IS assay, [employer], [place], [place]). This assay has a limit [...] developed and its performance characteristics determined by [facility]'s Pathology and Laboratory Medicine Department. It has not been cleared or approved by the FDA. [facility] Pathology and Laboratory Medicine Department is regulated under CLIA as certified to perform high-complexity testing. This test is used for clinical purposes. It should not be regarded as investigational or for research. Testing and interpretation performed at [facility], [address] [place] [address]. CLIA Number: [id number] As reviewed by Magnolia Christopher MD, PhD Performed By: #### I SMRNCNPB ####[facility] [id number] [place] [address] [place]#### BCRPB1 ####[facility] LIMSCLIA [id number] [place] [address] [place] CBC W Ordered Manual Differe ntial panel (Bld)on 01-25-2025 Basophils (Bld) [#/Vol] 0.13 10*3/uL High <0.11 [facility] Comment on above: Order Comment: Speci men Type: BLOOD SPECIMENOrdering Facility: [facility] Address: [address] [place] [address] Performed By: #### S TFREV ####[facility] [id number] [place] [address] [place]#### 18608-2 ####[facility] [place] MILLTOWNCLIA [id number] [place] [address] [place] [facility] LABCL[facility] [id number] [place] [address] [place] Basophils/100 WBC (Bld) 1.1 % Normal [facility] Comment on above: Order Comment: Speci men Type: BLOOD SPECIMENOrdering Facility: [facility] Address: [address] [place] [address] Performed By: #### S TFREV ####[facility] LABCLIA [id number] [place] [address] [place]#### 53215-0 ####[facility] [id number] [place] [address] [place] [facility] LABCLIA [id number] [place] [address] [place] Differential cell count method Nom (Bld) Auto Normal [facility] Comment on above: Order Comment: Speci men Type: BLOOD SPECIMENOrdering Facility: [facility] Address: [address] [place] [address] Performed By: #### S TFREV ####[facility] LABCLIA [id number] [place] [address] [place]#### 76528-2 ####[facility] [id number] [place] [address] [place] [facility] LABCLIA [id number] [place] [address] [place] Eosinophils (Bld) [#/Vol] 0.49 10*3/uL High <0.46 [facility] Comment on above: Order Comment: Speci men Type: BLOOD SPECIMENOrdering Facility: [facility] Address: [address] [place] [address] Performed By: #### S TFREV ####[facility] LABCLIA [id number] [address], [place] [address] [place]#### 71194-6 ####[facility] [id number] [place] [address] [place] [facility] LABCLIA [id number] [address], [place] [address] [place] Eosinophils/100 WBC (Bld) 4.3 % Normal [facility] Comment on above: Order Comment: Speci men Type: BLOOD SPECIMENOrdering Facility: [facility] Address: [address] [place] [address] Performed By: #### S TFREV ####[facility] LABCLIA [id number] [place] [address] [place]#### 76436-0 ####[facility] [id number] [place] [address] [place] [facility] LABCLIA [id number] [place] [address] [place] Erythrocyte distribution width (RBC) [Ratio] 17.0 % High 11.5-15.0 [facility] Comment on above: Order Comment: Speci men Type: BLOOD SPECIMENOrdering Facility: [facility] Address: [address] [place] [address] Performed By: #### S TFREV ####[facility] LABCLIA [id number] [place] [address] [place]#### 71456-5 ####[facility]ENTERLIA [id number] [place] [address] [place] [facility] LABCLIA [id number] [place] [address] [place] Hematocrit (Bld) [Volume fraction] 42.4 % Normal 36.0-46.0 [facility] Comment on above: Order Comment: Speci men Type: BLOOD SPECIMENOrdering Facility: [facility] Address: [address] [place] [address] Performed By: #### S TFREV ####[facility] LABCLIA [id number] [place] [address] [place]#### 37734-1 ####[facility] [id number] [address] LABCLIA [id number] [address] [place] Hemoglobin (Bld) [Mass/Vol] 13.3 g/dL Normal 11.5-15.5 [facility] Comment on above: Order Comment: Speci men Type: BLOOD SPECIMENOrdering Facility: [facility] Address: [address] [place] [address] Performed By: #### S TFREV ####[facility] [id number] [place] [address] [place]#### 28639-6 ####[facility] [id number] [address] LABCLIA [id number] [address] [place] Immature granulocytes (Bld) [#/Vol] 0.05 10*3/uL Normal <0.10 [facility] Comment on above: Order Comment: Speci men Type: BLOOD SPECIMENOrdering Facility: [facility] Address: [address] [place] [address] Performed By: #### S TFREV ####[facility] LABCLIA [id number] [address] [place]#### 57761-5 ####[facility] MILLTOWNCLIA [id number] [place] [address] [place] [facility] LABCLIA [id number] [facility] [place] [id number] [place] Immature granulocytes/100 WBC (Bld) 0.4 % Normal [facility] Comment on above: Order Comment: Speci men Type: BLOOD SPECIMENOrdering Facility: [facility] Address: [address] [place] [address] Performed By: #### S TFREV ####[facility] LABCLIA [id number] [place] [address] [place]#### 66427-3 ####[facility]ITAL[facility]CL[facility] [id number] [place] [address] [place] [facility] LABCLIA [id number] [place] [address] [place] Lymphocytes (Bld) [#/Vol] 3.29 10*3/uL Normal 1.00-4.00 [facility] Comment on above: Order Comment: Speci men Type: BLOOD SPECIMENOrdering Facility: [facility] Address: [address] [place] [address] Performed By: #### S TFREV ####[facility] LABCLIA [id number] [place] [address] [place]#### 86208-3 ####[facility] MILLWNCLIA [id number] [place] [address] [place] [facility] LABCLIA [id number] [facility] [place] [id number] [place] Lymphocytes/100 WBC (Bld) 28.7 % Normal [facility] Comment on above: Order Comment: Speci men Type: BLOOD SPECIMENOrdering Facility: [facility] Address: [address] [place] [address] Performed By: #### S TFREV ####[facility] LABCLIA [id number] [place] [address] [place]#### 19458-2 ####[facility] MILLWNCLIA [id number] [place] [address] [place] [facility] LABCLIA [id number] [place] [id number] [place] MCH (RBC) [Entitic mass] 27.5 pg Normal 26.0-34.0 [facility] Comment on above: Order Comment: Speci men Type: BLOOD SPECIMENOrdering Facility: [facility] Address: [address] [place] [address] Performed By: #### S TFREV ####[facility] LABCLIA [id number] [place] [address] [place]#### 56613-4 ####[facility]ENTERLIA [id number] [place] [address] [place] [facility] LABCLIA [id number] [place] [id number] [place] MCHC (RBC) [Mass/Vol] 31.4 g/dL Normal 30.5-36.0 [facility] Comment on above: Order Comment: Speci men Type: BLOOD SPECIMENOrdering Facility: [facility] Address: [address] [place] [address] Performed By: #### S TFREV ####[facility] LABCLIA [id number] [place] [id number] [place]#### 95907-4 ####[facility] MILLWNCLIA [id number] [place] [address] [place] [facility] LABCLIA [id number] [place] [address] [place] MCV (RBC) [Entitic vol] 87.8 fL Normal 80.0-100.0 [facility] Comment on above: Order Comment: Speci men Type: BLOOD SPECIMENOrdering Facility: [facility] Address: [address] [place] [address] Performed By: #### S TFREV ####[facility] LABCLIA [id number] [place] [address] [place]#### 81554-6 ####[facility] [id number] [place] [address] [place] [facility] LABCLIA [id number] [place] [address] [place] Monocytes (Bld) [#/Vol] 0.81 10*3/uL Normal <0.87 [facility] Comment on above: Order Comment: Speci men Type: BLOOD SPECIMENOrdering Facility: [facility] Address: [address] [place] [address] Performed By: #### S TFREV ####[facility] LABCLIA [id number] [place] [address] [place]#### 54051-0 ####[facility]ITAL[facility]CL[facility] [id number] [address] STATES OF [facility] LABCLIA [id number] [place] [address] [place] Monocytes/100 WBC (Bld) 7.1 % Normal [facility] Comment on above: Order Comment: Speci men Type: BLOOD SPECIMENOrdering Facility: [facility] Address: [address] [place] [address] Performed By: #### S TFREV ####[facility] LABCLIA [id number] [address], [facility]95 [place]#### 18088-0 ####[facility] MILLTOWNCLIA [id number] [place] [address] [place] [facility] LABCLIA [id number] [address] [place] [address] [place] Neutrophils (Bld) [#/Vol] 6.69 10*3/uL Normal 1.45-7.50 [facility] Comment on above: Order Comment: Speci men Type: BLOOD SPECIMENOrdering Facility: [facility] Address: [address] [place] [address] Performed By: #### S TFREV ####[facility] LABCLIA [id number] [place] [address] [place]#### 14612-0 ####[facility]ITAL[facility]CLIA [id number] [place] [address] [place] [facility] LABCLIA [id number] [place] [address] [place] Neutrophils/100 WBC (Bld) 58.4 % Normal [facility] Comment on above: Order Comment: Speci men Type: BLOOD SPECIMENOrdering Facility: [facility] Address: [address] [place] [address] Performed By: #### S TFREV ####[facility] LABCLIA [id number] [address], [facility]95 [place]#### 39490-2 ####[facility]ITALWNCLIA [id number] [place] [address] [place] [facility] LABCLIA [id number] [place] [id number] [place] [facility] Nucleated RBC (Bld) [#/Vol] 10*3/uL Normal <0.01 [facility] Comment on above: Order Comment: Speci men Type: BLOOD SPECIMENOrdering Facility: [facility] Address: [address] [place] [address] Performed By: #### S TFREV ####[facility] LABCLIA [id number] [place] [address] [place]#### 00265-7 ####[facility] [id number] [address] STATES [facility] LABCLIA [id number] [place] [address] [place] Nucleated RBC/100 WBC (Bld) [Ratio] 0.0 /100 WBC Normal [facility] Comment on above: Order Comment: Speci men Type: BLOOD SPECIMENOrdering Facility: [facility] Address: [address] [place] [address] Performed By: #### S TFREV ####[facility] LABCLIA [id number] [place] [address] [place]#### 49552-2 ####[facility] [id number] [address] STATES OF [facility] LABCLIA [id number] [place] [address] [place] Platelet mean volume (Bld) [Entitic vol] 9.4 fL Normal 9.0-12.7 [facility] Comment on above: Order Comment: Speci men Type: BLOOD SPECIMENOrdering Facility: [facility] Address: [address] [place] [address] Performed By: #### S TFREV ####[facility] LABCLIA [id number] [place] [address] [place]#### 85724-2 ####[facility] MILLWNCLIA [id number] [address] LABCLIA [id number] [address] [address] [place] Platelets (Bld) [#/Vol] 388 10*3/uL Normal 150-400 [facility] Comment on above: Order Comment: Speci men Type: BLOOD SPECIMENOrdering Facility: [facility] Address: [address] [place] [address] Performed By: #### S TFREV ####[facility] LABCLIA [id number] [place] [address] [place]#### 81739-3 ####[facility]ENTERLIA [id number] [address] LABCLIA [id number] [place] [address] [place] RBC (Bld) [#/Vol] 4.83 10*6/uL Normal 3.90-5.[address] [facility] Comment on above: Order Comment: Speci men Type: BLOOD SPECIMENOrdering Facility: [facility] Address: [address] [place] [address] Performed By: #### S TFREV ####[facility] LABCLIA [id number] [place] [id number] [place]#### 46517-6 ####[facility] [id number] [address] STATES OF [facility] LABCLIA [id number] [address] [address] [place] WBC (Bld) [#/Vol] 11.46 10*3/uL High 3.70-11.00 [facility] Comment on above: Order Comment: Speci men Type: BLOOD SPECIMENOrdering Facility: [facility] Address: [address] [place] [address] Performed By: #### S TFREV ####[facility] LABCLIA [id number] [address] OF [facility]#### 77872-6 ####[facility]ILL[facility] HOSPITALLIA [id number] [place] [address] [place] [facility] LABCLIA [id number] [address] CNOVSPon 01-25-2025 CNOVSP Visit (SP) Office (HEMAWS) CALLBEV ([id number]) 1975 F Date Time Provider Department 01/25/25 [...] and night sweats. Normal appetite. Neuro: No LEBLANC, vertigo, dizziness and imbalance. No symptoms of [...] weight 77.1 (more content not included)... Normal [facility] Ferritin SerPl-ncon 2024 Ferritin [Mass/Vol] 20.8 ng/mL Normal 14.7-205.[address] [facility] Comment on above: Order Comment: Speci men Type: BLOOD SPECIMENOrdering Facility: [facility] Address: [address] [place] [address] Performed By: #### 2 276-4, 01684-7 ####[facility] LABCLIA [id number] [address] [place] Iron and Iron binding capaci ty panelon 01-25-2025 Iron [Mass/Vol] 37 ug/dL Low 41-186 [facility] Comment on above: Order Comment: Speci men Type: BLOOD SPECIMENOrdering Facility: [facility] Address: [address] [place] [address] Performed By: #### 2 276-4, 92708-3 ####[facility] [id number] [address] Iron binding capacity [Mass/Vol] 477 ug/dL High 232-386 [facility] Comment on above: Order Comment: Speci men Type: BLOOD SPECIMENOrdering Facility: [facility] Address: [address] [place] [address] Performed By: #### 2 276-4, 68673-8 ####[facility] [id number] [address] Iron/TIBC [Molar ratio] 7.8 % Low 15.0-57.0 [facility] Comment on above: Order Comment: Speci men Type: BLOOD SPECIMENOrdering Facility: [facility] Address: [address] [place] [address] Performed By: #### 2 276-4, 73722-0 ####[facility] [id number] [address] OF [facility] MYELOPROLIFERATIVE NEOPLASM PANEL BLOODon 01-25-2025 MYELOPROLIFERATIVE NEOPLASM PNL PERIPHERAL BLOOD Normal [facility] Comment on above: Order Comment: Speci men Type: BLOOD SPECIMENOrdering Facility: [facility] Address: [address] [place] [address] Result Comment: Myel oproliferative Neoplasm Panel Laboratory Accession Number: [id number] Sample Type: Peripheral Blood Result: CALR - [...] sequencing was performed on the Illumina instrument ([place], [place]). A customized bioinformatic pipeline was used [...] V617F, JAK2 exon 12, CALR Type 1 (p.Q102Gxu79, c.1099_1150del) and Type 2 (p.B208Ayy58, c.1154_1155insTTGTC), MPL W515 variants and approximately 5% [...] developed and its performance characteristics determined by [facility]'s Pathology and Laboratory Medicine Department. It has not been cleared or approved by the FDA. [facility]'s Pathology and Laboratory Medicine Department is regulated under CLIA as certified to perform high-complexity testing. This test is used for clinical purposes. It should not be regarded as investigational or for research. Testing and interpretation performed at [facility], [address] [place], [place] [id number]. CLIA Number: [id number] References: 1) Maria MICHEL, Saman Ma, Haven Cook, Joon J, Borsonia MJ, Mary Siu MM, et al. The 2016 revision to the World Health Organization (WHO) classification of myeloid neoplasms and acute leukemia. Blood 2016;127: 2391-405. 2) NCCN Guidelines, Myeloproliferative Neoplasms, Version 2.2018. 3) Mariam Fuentes, Krishna WRIGHT. Genomics of Myeloproliferative Neoplasms. J Clin Oncol. 2017 Jan 24;35(9):947-954. As reviewed by Adrianna Soni, PhD, FACMG Performed By: #### M PNP ####[facility]ERSCLIA [id number] PATHOLOGIST INTERPRETATION C BC/DIFFon 01-25-2025 Drawer In Jacquard Loom review Corey (Unsp spec) [Interp] No review performed. Normal [facility] Comment on above: Order Comment: Speci men Type: BLOOD SPECIMENOrdering Facility: [facility] Address: [address] [place] [address] Performed By: #### S TFREV ####[facility] LABCLIA [id number] [address] [place]#### [address]-4 ####[facility] [id number] [place], [place] [address] [place] [address] LABCLIA [id number] [address] OF [facility] STAFF REVIEW, CBCDIF Normal [facility] Comment on above: Order Comment: Speci men Type: BLOOD SPECIMENOrdering Facility: [facility] Address: [address] [place] [address] Result Comment: The Pathologist Interpretation on this sample was cancelled because the hematology analyzer did not flag any parameters as requiring manual review. If there is a specific clinical concern for which you would like a pathologist to review the blood smear, please call Lab Client Services within 28 days. Account Credited Performed By: #### S TFREV ####[facility] LABCLIA [id number] [place] [address] [place]#### [address]-9 ####[facility]OH[facility] [id number] [place] [address] [place] [facility] LABCLIA [id number] [place] [address] [facility] [place] Stanley 01-15-2025 SHERWINN Telephone (HEMAWS) CALL,BEV Gerardo ([id number]) 1975 F Date Time Provider Department 01/15/25 JOSÉ PRESSLEY During your visit today, we recorded the following information about you: Bety Gasca 01/15/2025 8:38 AM Signed Please review and advise CONSULT TO HEMATOLOGY Status: Needs Scheduling Requested appt date: Authorizing: Amita Pope APRN.CNP in [facility] Referral: [id number] (Authorized) Expires: 01/15/2026 Priority: Routine Diagnosis: Leukocytosis, unspecified type [D72.829] Comments Chronic leukocytosis. This has been going on for 2 years. Patient is returning with frequent viral infections. Maritza Ron LPN 01/15/2025 9:06 AM Signed Offer apt with first available. Printed recent ER, admission note, ct reports from [facility]. REZA Arcos Naomi 01/15/2025 9:33 AM Signed Spoke w pt and she is scheduled 01/25 available new pt. Elmira Paulino Allergies As of Date: 01/15/2025 Noted Allergy Reaction DOXYCYCLINE 08/16/2006 ENTEX (PHENYLEPHRINE-GUAIFE NESIN) 10/20/2006 ERYTHROMYCIN 08/16/2006 12 - Shortness of Breath Comments: Can take zpak FLEXERIL (CYCLOBENZAPRINE HCL) 10/08/2011 3 - Cough Comments: dandre OMNICEF (CEFDINIR) 07/11/2014 8 - GI Upset [...] 09/17/2009 04/27/2017 [facility]01/15/2011 08/09/2012 Class: Chronic Routine gynecological examination [Z01.419] 01/15/2011 08/09/2012 Class: Chronic GERD (gastroesophageal reflux disease) [K21.9] 01/15/2011 PUD (peptic ulcer disease) [K27.9] 01/15/2011 Tinea versicolor [B36.0] 01/29/2011 09/24/2014 Post-inflammatory hyperpigmentation [L81.0] 01/29/2011 09/24/2014 Pruritus [L29.9] 01/29/2011 09/24/2014 Hyperlipidemia [E78.5] 05/22/2014 Coronary artery disease involving shaktoolik benoit*06/06/2014 Lymphadenopath (more content not included)... Normal [facility] CBC W Auto Differential pane l (Bld)on 01-14-2025 Basophils (Bld) [#/Vol] 0.08 10*3/uL Normal <0.11 [facility] Comment on above: Order Comment: Speci men Type: BLOOD SPECIMENOrdering Facility: [facility] Address: [address] [place] [address] Performed By: #### 5 7021-8 ####[facility] LABCLIA [id number] [place] [address] [place] Basophils/100 WBC (Bld) 0.5 % Normal [facility] Comment on above: Order Comment: Speci men Type: BLOOD SPECIMENOrdering Facility: [facility] Address: [address] [place] [address] Performed By: #### 5 7021-8 ####[facility] LABCLIA [id number] [place] [address] [place] Differential cell count method Nom (Bld) Auto Normal [facility] Comment on above: Order Comment: Speci men Type: BLOOD SPECIMENOrdering Facility: [facility] Address: [address] [place] [address] Performed By: #### 5 7021-8 ####[facility] LABCLIA [id number] [place] [address] [place] Eosinophils (Bld) [#/Vol] 0.41 10*3/uL Normal <0.46 [facility] Comment on above: Order Comment: Speci men Type: BLOOD SPECIMENOrdering Facility: [facility] Address: [address] [place] [address] Performed By: #### 5 7021-8 ####[facility] LABCLIA [id number] [id number], [place] [address] [place] Eosinophils/100 WBC (Bld) 2.5 % Normal [facility] Comment on above: Order Comment: Speci men Type: BLOOD SPECIMENOrdering Facility: [facility] Address: [address] [place] [address] Performed By: #### 5 7021-8 ####[facility] LABCLIA [id number] [place] [address] [place] Erythrocyte distribution width (RBC) [Ratio] 17.9 % High 11.5-15.0 [facility] Comment on above: Order Comment: Speci men Type: BLOOD SPECIMENOrdering Facility: [facility] Address: [address] [place] [address] Performed By: #### 5 7021-8 ####[facility] LABCLIA [id number] [place] [address] [place] Hematocrit (Bld) [Volume fraction] 44.3 % Normal 36.0-46.0 [facility] Comment on above: Order Comment: Speci men Type: BLOOD SPECIMENOrdering Facility: [facility] Address: [address] [place] [address] Performed By: #### 5 7021-8 ####[facility] LABCLIA [id number] [place] [address] [place] Hemoglobin (Bld) [Mass/Vol] 13.8 g/dL Normal 11.5-15.5 [facility] Comment on above: Order Comment: Speci men Type: BLOOD SPECIMENOrdering Facility: [facility] Address: [address] [place] [address] Performed By: #### 5 7021-8 ####[facility] LABCLIA [id number] [place] [address] [place] Immature granulocytes (Bld) [#/Vol] 0.10 10*3/uL High <0.10 [facility] Comment on above: Order Comment: Speci men Type: BLOOD SPECIMENOrdering Facility: [facility] Address: [address] [place] [address] Performed By: #### 5 7021-8 ####[facility] LABCLIA [id number] [address] STATES [facility] Immature granulocytes/100 WBC (Bld) 0.6 % Normal [facility] Comment on above: Order Comment: Speci men Type: BLOOD SPECIMENOrdering Facility: [facility] Address: [address] [place] [address] Performed By: #### 5 7021-8 ####[facility] LABIA [id number] [place] [address] [place] Lymphocytes (Bld) [#/Vol] 3.72 10*3/uL Normal 1.00-4.00 [facility] Comment on above: Order Comment: Speci men Type: BLOOD SPECIMENOrdering Facility: [facility] Address: [address] [place] [address] Performed By: #### 5 7021-8 ####[facility] LABIA [id number] [place] [address] [place] Lymphocytes/100 WBC (Bld) 23.0 % Normal [facility] Comment on above: Order Comment: Speci men Type: BLOOD SPECIMENOrdering Facility: [facility] Address: [address] [place] [address] Performed By: #### 5 7021-8 ####[facility] LABCLIA [id number] [place] [address] [place] MCH (RBC) [Entitic mass] 27.9 pg Normal 26.0-34.0 [facility] Comment on above: Order Comment: Speci men Type: BLOOD SPECIMENOrdering Facility: [facility] Address: [address] [place] [address] Performed By: #### 5 7021-8 ####[facility] LABCLIA [id number] [place] [address] [place] MCHC (RBC) [Mass/Vol] 31.2 g/dL Normal 30.5-36.0 [facility] Comment on above: Order Comment: Speci men Type: BLOOD SPECIMENOrdering Facility: [facility] Address: [address] [place] [address] Performed By: #### 5 7021-8 ####[facility] LABIA [id number] [place] [address] [place] MCV (RBC) [Entitic vol] 89.7 fL Normal 80.0-100.0 [facility] Comment on above: Order Comment: Speci men Type: BLOOD SPECIMENOrdering Facility: [facility] Address: [address] [place] [address] Performed By: #### 5 7021-8 ####[facility] LABIA [id number] [place] [address] [place] Monocytes (Bld) [#/Vol] 1.47 10*3/uL High <0.87 [facility] Comment on above: Order Comment: Speci men Type: BLOOD SPECIMENOrdering Facility: [facility] Address: [address] [place] [address] Performed By: #### 5 7021-8 ####[facility] LABIA [id number] [place] [address] [place] Monocytes/100 WBC (Bld) 9.1 % Normal [facility] Comment on above: Order Comment: Speci men Type: BLOOD SPECIMENOrdering Facility: [facility] Address: [address] [place] [address] Performed By: #### 5 7021-8 ####[facility] LABCLIA [id number] [place] [address] [place] Neutrophils (Bld) [#/Vol] 10.36 10*3/uL High 1.45-7.50 [facility] Comment on above: Order Comment: Speci men Type: BLOOD SPECIMENOrdering Facility: [facility] Address: [address] [place] [address] Performed By: #### 5 7021-8 ####[facility] LABCLIA [id number] [address] [place] Neutrophils/100 WBC (Bld) 64.3 % Normal [facility] Comment on above: Order Comment: Speci men Type: BLOOD SPECIMENOrdering Facility: [facility] Address: [address] [place] [address] Performed By: #### 5 7021-8 ####[facility] LABCLIA [id number] [place] [address] [place] Nucleated RBC (Bld) [#/Vol] 10*3/uL Normal <0.01 [facility] Comment on above: Order Comment: Speci men Type: BLOOD SPECIMENOrdering Facility: [facility] Address: [address] [place] [address] Performed By: #### 5 7021-8 ####[facility] LABCLIA [id number] [place] [address] [place] Nucleated RBC/100 WBC (Bld) [Ratio] 0.0 /100 WBC Normal [facility] Comment on above: Order Comment: Speci men Type: BLOOD SPECIMENOrdering Facility: [facility] Address: [address] [place] [address] Performed By: #### 5 7021-8 ####[facility] LABCLIA [id number] [place] [id number] [place] Platelet mean volume (Bld) [Entitic vol] 10.7 fL Normal 9.0-12.7 [facility] Comment on above: Order Comment: Speci men Type: BLOOD SPECIMENOrdering Facility: [facility] Address: [address] [place] [address] Performed By: #### 5 7021-8 ####[facility] LABCLIA [id number] [place] [address] [place] Platelets (Bld) [#/Vol] 441 10*3/uL High 150-400 [facility] Comment on above: Order Comment: Speci men Type: BLOOD SPECIMENOrdering Facility: [facility] Address: [address] [place] [address] Performed By: #### 5 7021-8 ####[facility] [id number] [place] [address] [place] RBC (Bld) [#/Vol] 4.94 10*6/uL Normal 3.90-5.[address] [facility] Comment on above: Order Comment: Speci men Type: BLOOD SPECIMENOrdering Facility: [facility] Address: [address] [place] [address] Performed By: #### 5 7021-8 ####[facility] [id number] [place] [address] [place] WBC (Bld) [#/Vol] 16.14 10*3/uL High 3.70-11.00 [facility] Comment on above: Order Comment: Speci men Type: BLOOD SPECIMENOrdering Facility: [facility] Address: [address] [place] [address] Performed By: #### 5 7021-8 ####[facility] [id number] [place] [id number] [place] CNOVon 01-14-2025 CNOV Office Visit (FAMPWS ) CALLBEV ([id number]) 1975 F Date Time Provider Department 01/14/25 2:40 PM AMITA POPE During your visit today, we recorded the following information about you: Temperature Pulse Blood pressure Weight 99.4 degrees 94/minute 138/92 76.2 kg Amita Pope APRN.CNP 01/14/2025 2:51 PM Signed This is a 49 year old female who presents today with: Patient presents with: Mouth/Lip Problem: Thrush Sinusitis HISTORY OF PRESENT ILLNESS: Bev Webb is a 49 year old female. Patient presents with: Mouth/Lip Problem: Thrush Sinusitis Sore tongue with white plaque. Sinusitis returning and feels bad. Whole body hurts Headache is back Eating [place] yogurt- doesn't like it but it helped [...] Father A (more content not included)... Normal [facility] 01-14-2025 CNPN Telephone (FAMPWS) CALL,BEV Gerardo ([id number]) 1975 F Date Time Provider Department 01/14/25 [facility] During your visit today, we recorded the following information about you: Monique Leong, DULCE 01/14/2025 8:20 AM Signed Pt called in and reports she saw Izabel Pope ANESTHESIOLOGY FELLOW on 01/03/25. She said she told her [...] 09/17/2009 04/27/2017 [facility]*01/15/2011 08/09/2012 Class: Chronic Routine gynecological examination [Z01.419] 01/15/2011 08/09/2012 Class: Chronic GERD (gastroesophageal reflux disease) [K21.9] 01/15/2011 PUD (peptic ulcer disease) [K27.9] 01/15/2011 Tinea versicolor [B36.0] 01/29/2011 09/24/2014 Post-inflammatory hyperpigmentation [L81.0] 01/29/2011 09/24/2014 Pruritus [L29.9] 01/29/2011 09/24/2014 Hyperlipidemia [E78.5] 05/22/2014 Coronary artery disease involving [place] benoit*06/06/2014 Lymphadenopathy [R59.1] 06/06/2014 04/27/2017 Herpes simplex [...] (HCC) [J43.2] (more content not included)... Normal [facility] Basic metabolic 2000 panelOr dered By: Nisa Lord on 01-03-2025 Anion gap [Moles/Vol] 13 mmol/L 8 - 15 mmol/L [facility] Calcium [Mass/Vol] 9.1 mg/dL 8.5 - 10. 2 mg/dL [facility] Chloride [Moles/Vol] 104 mmol/L 98 - 10 7 mmol/L [facility] CO2 [Moles/Vol] 22 mmol/L 22 - 30 mmol/L [facility] Creatinine [Mass/Vol] 1.26 mg/dL High 0.58 - 0.96 mg/dL [facility] GFR/1.73 sq M.predicted among non-blacks MDRD (S/P/Bld) [Vol rate/Area] 53 mL/min/{1.73_m2} Low - PINF [facility] Comment on above: Estimated Glomerular Filtration Rate [...] [Mass/Vol] 93 mg/dL 74 - 99 mg/dL [facility] Comment on above: The [place] Diabete s Association (ADA) provides guidance for [...] Standards of Medical Care in Diabetes 2016, [place] Diabetes Association. Diabetes Care. 2016.39(Suppl 1). Interpretation and review of laboratory results Abnormal [facility] Potassium [Moles/Vol] 4.2 mmol/L 3.7 - 5.1 mmol/L [facility] Sodium [Moles/Vol] 139 mmol/L 136 - 144 mmol/L [facility] Urea nitrogen [Mass/Vol] 9 mg/dL 7 - 21 mg/d L [facility] Basic metabolic 2000 panelon 01-03-2025 Anion gap [Moles/Vol] 13 mmol/L Normal 8-15 [facility] Comment on above: Order Comment: Speci men Type: BLOOD SPECIMENOrdering Facility: [facility] Address: [address] [place] [address] Performed By: #### 2 4321-2, 44316-2 ####[facility] [id number] [place] [address] [place] Calcium [Mass/Vol] 9.1 mg/dL Normal 8.5-10.2 [facility] Comment on above: Order Comment: Speci men Type: BLOOD SPECIMENOrdering Facility: [facility] Address: [address] [place] [address] Performed By: #### 2 4321-2, 43209-9 ####[facility] [id number] [place] [address] [place] Chloride [Moles/Vol] 104 mmol/L Normal 98-107 [facility] Comment on above: Order Comment: Speci men Type: BLOOD SPECIMENOrdering Facility: [facility] Address: [address] [place], [place] [address] Performed By: #### 2 4321-2, ####[facility] [id number] [place] [address] [place] CO2 [Moles/Vol] 22 mmol/L Normal 22-30 [facility] Comment on above: Order Comment: Speci men Type: BLOOD SPECIMENOrdering Facility: [facility] Address: [address] [place] [address] Performed By: #### 2 4321-2, ####[facility]SN[facility] [id number] [place] [address] [place] Creatinine [Mass/Vol] 1.26 mg/dL High 0.58-0.96 [facility] Comment on above: Order Comment: Speci men Type: BLOOD SPECIMENOrdering Facility: [facility] Address: [address] [place] [address] Performed By: #### 2 4321-2, ####[facility] [id number] [place] [address] [place] Creatinine and Glomerular filtration rate.predicted panel (S/P/Bld) 53 mL/min/1.73m??? Low >=60 [facility] Comment on above: Order Comment: Tarani men Type: BLOOD SPECIMENOrdering Facility: [facility] Address: [address] [place] [address] Result Comment: Betty mated Glomerular Filtration Rate [...] reflect actual GFR. Performed By: #### 2 4321-, ####[facility] [id number] [place] [address] [place] Glucose [Mass/Vol] 93 mg/dL Normal 74-99 [facility] Comment on above: Order Comment: Samson men Type: BLOOD SPECIMENOrdering Facility: [facility] Address: [address] [place] [address] Result Comment: The [place] Diabetes Association (ADA) provides guidance for cutoff [...] Standards of Medical Care in Diabetes 2016, [place] Diabetes Association. Diabetes Care. 2016.39(Suppl 1). Performed By: #### 2 4320-12, ####[facility] MILLTOWNCLIA [id number] [place] [address] [place] Potassium [Moles/Vol] 4.2 mmol/L Normal 3.7-5.1 [facility] Comment on above: Order Comment: Speci men Type: BLOOD SPECIMENOrdering Facility: [facility] Address: [address] [place] [address] Performed By: #### 2 4320-12, ####[facility]ENTER[facility]IA [id number] [place] [address] [place] Sodium [Moles/Vol] 139 mmol/L Normal 136-144 [facility] Comment on above: Order Comment: Speci men Type: BLOOD SPECIMENOrdering Facility: [facility] Address: [address] [place] [address] Performed By: #### 2 4320-12, ####[facility] MILLWNCLIA [id number] [place] [address] [place] Urea nitrogen [Mass/Vol] 9 mg/dL Normal 7-21 [facility] Comment on above: Order Comment: Speci men Type: BLOOD SPECIMENOrdering Facility: [facility] Address: [address] [place] [address] Performed By: #### 2 4320-12, ####[facility] [id number] [place] [address] [place] CBC W Auto Differential pane l (Bld)on 01-03-2025 Basophils (Bld) [#/Vol] 0.09 10*3/uL [facility] Basophils/100 WBC (Bld) 0.6 % C [facility] Differential cell count method Nom (Bld) Auto [facility] Eosinophils (Bld) [#/Vol] 0.45 10*3/uL [facility] Eosinophils/100 WBC (Bld) 2.8 % [facility] Erythrocyte distribution width (RBC) [Ratio] 17.8 % High 11.5 - 15.0 % [facility] Hematocrit (Bld) [Volume fraction] 40.4 % 36.0 - 46.0 % [facility] Hemoglobin (Bld) [Mass/Vol] 12.5 g/dL 11.5 - 15.5 g/dL [facility] Immature granulocytes (Bld) [#/Vol] 0.08 10*3/uL [facility] Immature granulocytes/100 WBC (Bld) 0.5 % [facility] Interpretation and review of laboratory results Abnormal [facility] Lymphocytes (Bld) [#/Vol] 3.94 10*3/uL [facility] Lymphocytes/100 WBC (Bld) 24.1 % [facility] MCH (RBC) [Entitic mass] 27.4 pg 26. 0 - 34.0 pg [facility] MCHC (RBC) [Mass/Vol] 30.9 g/dL 30.5 - 36.0 g/dL [facility] MCV (RBC) [Entitic vol] 88.6 fL 80.0 - 100.0 fL [facility] Monocytes (Bld) [#/Vol] 1.54 10*3/uL High [facility] Monocytes/100 WBC (Bld) 9.4 % [facility] Neutrophils (Bld) [#/Vol] 10.24 10*3/uL High [facility] Neutrophils/100 WBC (Bld) 62.6 % [facility] Nucleated RBC (Bld) [#/Vol] [facility] Nucleated RBC/100 WBC (Bld) [Ratio] 0 % /100 WBC [facility] Platelet mean volume (Bld) [Entitic vol] 10.3 fL 9.0 - 12.7 fL [facility] Platelets (Bld) [#/Vol] 525 10*3/uL High [facility] RBC (Bld) [#/Vol] 4.56 10*6/uL 3.90 - 5.2 0 m/uL [facility] WBC (Bld) [#/Vol] 16.34 10*3/uL High [facility] Basophils (Bld) [#/Vol] 0.09 10*3/uL Normal <0.11 [facility] Comment on above: Order Comment: Speci men Type: BLOOD SPECIMENOrdering Facility: [facility] Address: [address] [place] [address] Performed By: #### 5 7021-8 ####[facility] [id number] [place] [address] [place] Basophils/100 WBC (Bld) 0.6 % Normal [facility] Comment on above: Order Comment: Speci men Type: BLOOD SPECIMENOrdering Facility: [facility] Address: [address] [place] [address] Performed By: #### 5 7021-8 ####[facility] [id number] [place] [address] [place] Differential cell count method Nom (Bld) Auto Normal [facility] Comment on above: Order Comment: Speci men Type: BLOOD SPECIMENOrdering Facility: [facility] Address: [address] [place] [address] Performed By: #### 5 7021-8 ####[facility] [id number] [place] [address] [place] Eosinophils (Bld) [#/Vol] 0.45 10*3/uL Normal <0.46 [facility] Comment on above: Order Comment: Speci men Type: BLOOD SPECIMENOrdering Facility: [facility] Address: [address] [place] [address] Performed By: #### 5 7021-8 ####[facility] MILLWNCLIA [id number] [place] [address] [place] Eosinophils/100 WBC (Bld) 2.8 % Normal [facility] Comment on above: Order Comment: Speci men Type: BLOOD SPECIMENOrdering Facility: [facility] Address: [address] [place] [address] Performed By: #### 5 7021-8 ####[facility]OSPITALKYLELIA [id number] [place] [address] [place] Erythrocyte distribution width (RBC) [Ratio] 17.8 % High 11.5-15.0 [facility] Comment on above: Order Comment: Speci men Type: BLOOD SPECIMENOrdering Facility: [facility] Address: [address] [place] [address] Performed By: #### 5 7021-8 ####[facility] CENTERLIA [id number] [place] [address] [place] Hematocrit (Bld) [Volume fraction] 40.4 % Normal 36.0-46.0 [facility] Comment on above: Order Comment: Speci men Type: BLOOD SPECIMENOrdering Facility: [facility] Address: [address] [place] [address] Performed By: #### 5 7021-8 ####[facility]OSPITALKYLELIA [id number] [place] [address] [place] Hemoglobin (Bld) [Mass/Vol] 12.5 g/dL Normal 11.5-15.5 [facility] Comment on above: Order Comment: Speci men Type: BLOOD SPECIMENOrdering Facility: [facility] Address: [address] [place] [address] Performed By: #### 5 7021-8 ####[facility]ITALNCLIA [id number] [place] [address] [place] Immature granulocytes (Bld) [#/Vol] 0.08 10*3/uL Normal <0.10 [facility] Comment on above: Order Comment: Speci men Type: BLOOD SPECIMENOrdering Facility: [facility] Address: [address] [place] [address] Performed By: #### 5 7021-8 ####[facility] [id number] [place] [address] [place] Immature granulocytes/100 WBC (Bld) 0.5 % Normal [facility] Comment on above: Order Comment: Speci men Type: BLOOD SPECIMENOrdering Facility: [facility] Address: [address] [place] [address] Performed By: #### 5 7021-8 ####[facility] [id number] [place] [address] [place] Lymphocytes (Bld) [#/Vol] 3.94 10*3/uL Normal 1.00-4.00 [facility] Comment on above: Order Comment: Speci men Type: BLOOD SPECIMENOrdering Facility: [facility] Address: [address] [place] [address] Performed By: #### 5 7021-8 ####[facility] [id number] [place] [address] [place] Lymphocytes/100 WBC (Bld) 24.1 % Normal [facility] Comment on above: Order Comment: Speci men Type: BLOOD SPECIMENOrdering Facility: [facility] Address: [address] [place] [address] Performed By: #### 5 7021-8 ####[facility] [id number] [place] [address] [place] MCH (RBC) [Entitic mass] 27.4 pg Normal 26.0-34.0 [facility] Comment on above: Order Comment: Speci men Type: BLOOD SPECIMENOrdering Facility: [facility] Address: [address] [place] [address] Performed By: #### 5 7021-8 ####[facility] [id number] [place] [address] [place] MCHC (RBC) [Mass/Vol] 30.9 g/dL Normal 30.5-36.0 [facility] Comment on above: Order Comment: Speci men Type: BLOOD SPECIMENOrdering Facility: [facility] Address: [address] [place] [address] Performed By: #### 5 7021-8 ####[facility] JULIOKYLERICKYFrancesca [id number] [place] [address] [place] MCV (RBC) [Entitic vol] 88.6 fL Normal 80.0-100.0 [facility] Comment on above: Order Comment: Speci men Type: BLOOD SPECIMENOrdering Facility: [facility] Address: [address] [place] [address] Performed By: #### 5 7021-8 ####[facility] HOSPITALKYLECASEY [id number] [place] [address] [place] Monocytes (Bld) [#/Vol] 1.54 10*3/uL High <0.87 [facility] Comment on above: Order Comment: Speci men Type: BLOOD SPECIMENOrdering Facility: [facility] Address: [address] [place] [address] Performed By: #### 5 7021-8 ####[facility]OSPITALKYLELIA [id number] [place] [address] [place] Monocytes/100 WBC (Bld) 9.4 % Normal [facility] Comment on above: Order Comment: Speci men Type: BLOOD SPECIMENOrdering Facility: [facility] Address: [address] [place] [address] Performed By: #### 5 7021-8 ####[facility] MILLTOWNCLIA [id number] [place] [address] [place] Neutrophils (Bld) [#/Vol] 10.24 10*3/uL High 1.45-7.50 [facility] Comment on above: Order Comment: Speci men Type: BLOOD SPECIMENOrdering Facility: [facility] Address: [address] [place] [address] Performed By: #### 5 7021-8 ####[facility] CENTERLIA [id number] [place] [address] [place] Neutrophils/100 WBC (Bld) 62.6 % Normal [facility] Comment on above: Order Comment: Speci men Type: BLOOD SPECIMENOrdering Facility: [facility] Address: [address] [place] [address] Performed By: #### 5 7021-8 ####[facility] CENTERLIA [id number] [place] [address] [place] Nucleated RBC (Bld) [#/Vol] 10*3/uL Normal <0.01 [facility] Comment on above: Order Comment: Speci men Type: BLOOD SPECIMENOrdering Facility: [facility] Address: [address] [place] [address] Performed By: #### 5 7021-8 ####[facility] CENTERLIA [id number] [place] [address] [place] Nucleated RBC/100 WBC (Bld) [Ratio] 0.0 /100 WBC Normal [facility] Comment on above: Order Comment: Speci men Type: BLOOD SPECIMENOrdering Facility: [facility] Address: [address] [place] [address] Performed By: #### 5 7021-8 ####[facility]OSPITALNCLIA [id number] [place] [address] [place] Platelet mean volume (Bld) [Entitic vol] 10.3 fL Normal 9.0-12.7 [facility] Comment on above: Order Comment: Speci men Type: BLOOD SPECIMENOrdering Facility: [facility] Address: [address] [place] [address] Performed By: #### 5 7021-8 ####[facility] HOSPITALNCRICKYA [id number] [place] [address] [place] Platelets (Bld) [#/Vol] 525 10*3/uL High 150-400 [facility] Comment on above: Order Comment: Speci men Type: BLOOD SPECIMENOrdering Facility: [facility] Address: [address] [place] [address] Performed By: #### 5 7021-8 ####[facility]PITALNCLIA [id number] [place] [address] [place] RBC (Bld) [#/Vol] 4.56 10*6/uL Normal 3.90-5.[address] [facility] Comment on above: Order Comment: Speci men Type: BLOOD SPECIMENOrdering Facility: [facility] Address: [address] [place] [address] Performed By: #### 5 7021-8 ####[facility]ITALNCLIA [id number] [place] [address] [place] WBC (Bld) [#/Vol] 16.34 10*3/uL High 3.70-11.00 [facility] Comment on above: Order Comment: Speci men Type: BLOOD SPECIMENOrdering Facility: [facility] Address: [address] [place] [address] Performed By: #### 5 7021-8 ####[facility]OSPITALNCLIA [id number] [place] [address] [place] CNOVon 01-03-2025 CNOV Office Visit (FAMPWS ) BEV WEBB ([id number]) 1975 F Date Time Provider Department 01/03/25 1:20 PM [facility] During your visit today, we recorded the following information about you: Temperature Pulse Blood pressure Weight 99.5 degrees 115/minute 140/82 75.8 kg Amita Pope, [facility] 01/03/2025 2:06 PM Signed This is a 49 year old female who presents today with: Patient presents with: ER F/U: [facility] 12/26/24 [place] HISTORY OF PRESENT ILLNESS: Bev Webb is a 49 year old female. Patient presents with: ER F/U: [facility] 12/26/24 [place] [facility] follow up 2 weeks ago, she was treated in Urgent care for URI with Zpak Got worse. Went to ER @ [facility]- passed out in ER. Told she there Couldn't find a pulse. They work up noted low magnesium. Son told her to go ER @ [facility]. WBC high. They treated with Levaquin. Only [...] Allergies Father (more content not included)... Normal [facility] MAGNESIUMon 01-03-2025 Magnesium [Mass/Vol] 1.9 mg/dL 1.7 - 2 .3 mg/dL [facility] Magnesium SerPl-mCncon 01-03 Magnesium [Mass/Vol] 1.9 mg/dL Normal 1.7-2.3 [facility] Comment on above: Order Comment: Speci men Type: BLOOD SPECIMENOrdering Facility: [facility] Address: [address] [place] [address] Performed By: #### 2 4321-2, 87856-4 ####[facility] [id number] [place] [address] [place] Magnesium [Mass/Vol]on 01-03 Interpretation and review of laboratory results Normal [facility] CNPNon [facility]-02-20[facility],BEV Gerardo ([id number]) 1975 F Date Time Provider Department 01/02/25 MARTINEZ GARCIA During your visit today, we recorded the following information about you: Hyun Coffman RN 01/02/2025 1:03 PM Signed Pt calling in to set up ER follow up appt. Pt states she was seen in [facility] on 12/17 and was given a Z pack. Pt did not get better and ended up going to [facility] ER on 12/26 where she proceeded to pass out and had no pulse and had to have chest compressions (records under scanned documents). She went in because she still felt so sick and felt like she was going to pass out and was very weak. Was admitted overnight. Then Tuesday the , pt went to [facility] ER for a second opinion. They found her WBC was elevated and put her on Levaquin. She is now having a productive cough of yellow phlegm and is coughing a lot. Pt had a lot of testing done at [facility]. ER follow up appt made for [...] Rash Date Reviewed: 12/28/2024 Reviewed by: Meera Steele, DULCE - Fully Assessed Reason for Visit: ER [...] 09/17/2009 04/27/2017 [facility]*01/15/2011 08/09/2012 Class: Chronic Routine gynecological examination [Z01.419] 01/15/2011 08/09/2012 Class: Chronic GERD (gastroesophageal reflux disease) [K21.9] 01/15/2011 PUD (peptic ulcer disease) [K27.9] 01/15/2011 Tinea versicolor [B36.0] 01/29/2011 09/24/2014 Post-inflammatory hyperpigmentation [L81.0] 01/29/2011 09/24/2014 Pruritus [L29.9] 01/29/2011 09/24/2014 Hyperlipidemia [E78.5] 05/22/2014 Coronary artery disease involving [place] benoit*06/06/2014 Lymphadenopathy [R59.1] 06/06/2014 04/27/2017 Herpes simplex infection [B00.9] 03/18/2016 04/27/2017 Marijuana use [F12.90] 06/08/2018 Mild intermittent asthma with acute exacerbatio* 8 Chest pain [R07.9] 08/30/2018 08/30/2018 Polysubstance ab (more content not included)... Normal [facility] ED PROV NOTEon 12-29-2024 ED PROV NOTE HNO ID: [id number] Author: GI BAILEY MD Service: Emergency Medicine [...] KEVYN LOVE 12/29/24 0150 GI BAILEY 12/29/24 1730 Normal [facility] XR CHEST 2V FRONTAL/LATon XR CHEST 2V [...] No radiographic evidence of acute cardiopulmonary abnormality. Stage Set Up Worker: BABAK Transcribe Date/Time: Dec 29 2024 3:48A Dictated by : SUSHMA GUILLAUME MD This examination was interpreted and the report reviewed and electronically signed by: SUSHMA GUILLAUME MD on Dec 29 2024 3:49AM EST [id number] N Normal [facility] ALLIED HEALTHon 12-28-2024 ALLIED HEALTH HNO ID: [id number] Author: SALVADOR GALLARDO Tech Service: Radiology Author Type: Checkout Supervisor Type: Allied Health Filed: 12/28/2024 18:56 Note [...] PATIENT PRESENTS WITH AN IMPLANTABLE OR ATTACHED CLERICAL ADVISER: No RADIOLOGY DEPARTMENT: CT; Exam(s) Completed: Brain PERIPHERAL IV DATA: Not applicable SIGNED BY: Jg Mobley December 28, 2024 6:56 PM Normal [facility] CBC W Auto Differential pane l (Bld)on 12-28-2024 Basophils (Bld) [#/Vol] 0.06 10*3/uL Normal <0.11 [facility] Comment on above: Order Comment: Speci men Type: BLOOD SPECIMEN [facility] Address: [address] [place] [address] Performed By: #### 5 7021-8 #### [facility] CLIA [id number] [address] Basophils/100 WBC (Bld) 0.4 % Normal A [facility] Comment on above: Order Comment: Speci men Type: BLOOD SPECIMEN [facility] Address: [address] [place] [address] Performed By: #### 5 7021-8 #### [facility] CLIA [id number] [address] Differential cell count method Nom (Bld) Auto Normal [facility] Comment on above: Order Comment: Speci men Type: BLOOD SPECIMEN [facility] Address: [address] [place] [address] Performed By: #### 5 7021-8 #### [facility] CLIA [id number] [address] Eosinophils (Bld) [#/Vol] 0.40 10*3/uL Normal <0.46 [facility] Comment on above: Order Comment: Speci men Type: BLOOD SPECIMEN [facility] Address: [address] [place] [address] Performed By: #### 5 7021-8 #### [facility] CLIA [id number] [address] Eosinophils/100 WBC (Bld) 2.5 % Normal [facility] Comment on above: Order Comment: Speci men Type: BLOOD SPECIMEN [facility] Address: [address] [place] [address] Performed By: #### 5 7021-8 #### [facility] CLIA [id number] [address] [place] Erythrocyte distribution width (RBC) [Ratio] 18.2 % High 11.5-15.0 [facility] Comment on above: Order Comment: Speci men Type: BLOOD SPECIMEN [facility] Address: [address] [place] [address] Performed By: #### 5 7021-8 #### [facility] CLIA [id number] [address] [place] Hematocrit (Bld) [Volume fraction] 46.6 % High 36.0-46.0 [facility] Comment on above: Order Comment: Speci men Type: BLOOD SPECIMEN [facility] Address: [address] [place] [address] Performed By: #### 5 7021-8 #### [facility] CLIA [id number] [address] [place] Hemoglobin (Bld) [Mass/Vol] 14.5 g/dL Normal 11.5-15.5 [facility] Comment on above: Order Comment: Speci men Type: BLOOD SPECIMEN [facility] Address: [address] [place] [address] Performed By: #### 5 7021-8 #### [facility] CLIA [id number] [address] [place] Immature granulocytes (Bld) [#/Vol] 0.18 10*3/uL High <0.10 [facility] Comment on above: Order Comment: Speci men Type: BLOOD SPECIMEN [facility] Address: [address] [place] [address] Performed By: #### 5 7021-8 #### [facility] CLIA [id number] [address] [place] Immature granulocytes/100 WBC (Bld) 1.1 % Normal [facility] Comment on above: Order Comment: Speci men Type: BLOOD SPECIMEN [facility] Address: [address] [place] [address] Performed By: #### 5 7021-8 #### [facility] CLIA [id number] [address] [place] Lymphocytes (Bld) [#/Vol] 2.94 10*3/uL Normal 1.00-4.00 [facility] Comment on above: Order Comment: Speci men Type: BLOOD SPECIMEN [facility] Address: [address] [place] [address] Performed By: #### 5 7021-8 #### [facility] CLIA [id number] [address] Lymphocytes/100 WBC (Bld) 18.5 % Normal [facility] Comment on above: Order Comment: Speci men Type: BLOOD SPECIMEN [facility] Address: [address] [place] [address] Performed By: #### 5 7021-8 #### [facility] CLIA [id number] [address] MCH (RBC) [Entitic mass] 27.6 pg Normal 26.0-34.0 [facility] Comment on above: Order Comment: Speci men Type: BLOOD SPECIMEN [facility] Address: [address] [place] [address] Performed By: #### 5 7021-8 #### [facility] CLIA [id number] [address] MCHC (RBC) [Mass/Vol] 31.1 g/dL Normal 30.5-36.0 [facility] Comment on above: Order Comment: Speci men Type: BLOOD SPECIMEN [facility] Address: [address] [place] [address] Performed By: #### 5 7021-8 #### [facility] CLIA [id number] [address] MCV (RBC) [Entitic vol] 88.6 fL Normal 80.0-100.0 [facility] Comment on above: Order Comment: Speci men Type: BLOOD SPECIMEN [facility] Address: [address] [place] [address] Performed By: #### 5 7021-8 #### [facility] CLIA [id number] [address] Monocytes (Bld) [#/Vol] 0.89 10*3/uL High <0.87 [facility] Comment on above: Order Comment: Speci men Type: BLOOD SPECIMEN [facility] Address: [address] [place] [address] Performed By: #### 5 7021-8 #### [facility] CLIA [id number] [address] [place] Monocytes/100 WBC (Bld) 5.6 % Normal A [facility] Comment on above: Order Comment: Speci men Type: BLOOD SPECIMEN [facility]: [facility] Address: [address] [place] [address] Performed By: #### 5 7021-8 #### [facility] CLIA [id number] [address] [place] Neutrophils (Bld) [#/Vol] 11.46 10*3/uL High 1.45-7.50 [facility] Comment on above: Order Comment: Speci men Type: BLOOD SPECIMEN [facility]: [facility] Address: [address] [place] [address] Performed By: #### 5 7021-8 #### [facility] CLIA [id number] [address] [place] Neutrophils/100 WBC (Bld) 71.9 % Normal [facility] Comment on above: Order Comment: Speci men Type: BLOOD SPECIMEN [facility]: [facility] Address: [address] [place] [address] Performed By: #### 5 7021-8 #### [facility] CLIA [id number] [address] [place] Nucleated RBC (Bld) [#/Vol] 10*3/uL Normal <0.01 [facility] Comment on above: Order Comment: Speci men Type: BLOOD SPECIMEN [facility]ing [facility] Address: [facility] [place] [address] Performed By: #### 5 7021-8 #### [facility] CLIA [id number] [address] [place] Nucleated RBC/100 WBC (Bld) [Ratio] 0.0 /100 WBC Normal [facility] Comment on above: Order Comment: Speci men Type: BLOOD SPECIMEN [facility] Address: [address] [place] [address] Performed By: #### 5 7021-8 #### [facility] CLIA [id number] [address] [place] Platelet mean volume (Bld) [Entitic vol] 9.7 fL Normal 9.0-12.7 [facility] Comment on above: Order Comment: Speci men Type: BLOOD SPECIMEN [facility]ing [facility]: [facility] Address: [address] [place] [address] Performed By: #### 5 7021-8 #### [facility] CLIA [id number] [address] [place] Platelets (Bld) [#/Vol] 459 10*3/uL High 150-400 [facility] Comment on above: Order Comment: Speci men Type: BLOOD SPECIMEN [facility]: [facility] Address: [address] [place] [address] Performed By: #### 5 7021-8 #### [facility] CLIA [id number] [address] [place] RBC (Bld) [#/Vol] 5.26 10*6/uL High 3.90-5.20 [facility] Comment on above: Order Comment: Speci men Type: BLOOD SPECIMEN [facility]ing [facility]: [facility] Address: [address] [place] [address] Performed By: #### 5 7021-8 #### [facility] CLIA [id number] [address] [place] WBC (Bld) [#/Vol] 15.93 10*3/uL High 3.70-11.00 [facility] Comment on above: Order Comment: Speci men Type: BLOOD SPECIMEN [facility] Address: [address] [place] [address] Performed By: #### 5 7021-8 #### [facility] CLIA [id number] [place] [address] [facility] CT BRAIN WO IVCONon 12-28-19 CT BRAIN WO IVCON * * *Final Report* * * DATE OF EXAM: Dec 28 2024 6:59PM [facility] 0504 - CT BRAIN WO IVCON / [...] can be seen with sinus inflammatory disease. Stage Set Up Worker: BABAK Transcribe Date/Time: Dec 28 2024 7:39P Dictated by : WARD SÁNCHEZ MD This examination was interpreted and the report reviewed and electronically signed by: WARD SÁNCHEZ MD on Dec 28 2024 7:40PM EST [id number] N Normal [facility] Comprehensive metabolic 2000 panelon 12-28-2024 Albumin [Mass/Vol] 4.4 g/dL Normal 3.9-4.9 [facility] Comment on above: Order Comment: Speci men Type: BLOOD SPECIMEN [facility]ing [facility]: [facility] Address: [address] [place] [address] Performed By: #### 2 4323-8, 3040-3 #### [facility] CLIA [id number] [address] [place] ALP [Catalytic activity/Vol] 146 U/L High 34-123 [facility] Comment on above: Order Comment: Speci men Type: BLOOD SPECIMEN [facility]ing [facility] Address: [address] [place] [address] Performed By: #### 2 4323-8, 3040-3 #### [facility] CLIA [id number] [address] [place] ALT With P-5'-P [Catalytic activity/Vol] 40 U/L High 7-38 [facility] Comment on above: Order Comment: Speci men Type: BLOOD SPECIMEN [facility]ing [facility] Address: [address] [place] [address] Performed By: #### 2 4323-8, 3040-3 #### [facility] CLIA [id number] [address] [facility] Anion gap [Moles/Vol] 13 mmol/L Normal 8-15 [facility] Comment on above: Order Comment: Speci men Type: BLOOD SPECIMEN Ordering [facility]: [facility] Address: [address] [place] [address] Performed By: #### 2 4323-8, 3040-3 #### [facility] CLIA [id number] [address] AST With P-5'-P [Catalytic activity/Vol] 21 U/L Normal 13-35 [facility] Comment on above: Order Comment: Speci men Type: BLOOD SPECIMEN Ordering Facility: [facility] Address: [address] [place] [address] Performed By: #### 2 4323-8, 3040-3 #### [facility] CLIA [id number] [address] [place] Bilirubin [Mass/Vol] 0.2 mg/dL Normal 0.2-1.3 [facility] Comment on above: Order Comment: Speci men Type: BLOOD SPECIMEN [facility] [facility] Address: [address] [place] [address] Performed By: #### 2 4323-8, 3040-3 #### [facility] CLIA [id number] [address] [place] [address] [place] Calcium [Mass/Vol] 9.6 mg/dL Normal 8.5-10.2 [facility] Comment on above: Order Comment: Speci men Type: BLOOD SPECIMEN Ordering Facility: [facility] Address: [address] [place] [address] Performed By: #### 2 4323-8, 0-3 #### [facility] CLIA [id number] [address] [place] [address] [place] Chloride [Moles/Vol] 99 mmol/L Normal 98-107 [facility] Comment on above: Order Comment: Speci men Type: BLOOD SPECIMEN Ordering Facility: [facility] Address: [address] [place] [address] Performed By: #### 2 4323-8, 0-3 #### [facility] CLIA [id number] [address] [place] [address] [place] CO2 [Moles/Vol] 23 mmol/L Normal 22-30 [facility] Comment on above: Order Comment: Speci men Type: BLOOD SPECIMEN Ordering Facility: [facility] Address: [address] [place] [address] Performed By: #### 2 4323-8, 0-3 #### [facility] CLIA [id number] [address] [place] [address] [place] Creatinine [Mass/Vol] 0.88 mg/dL Normal 0.58-0.96 [facility] Comment on above: Order Comment: Speci men Type: BLOOD SPECIMEN Ordering Facility: [facility] Address: [address] [place] [address] Performed By: #### 2 4323-8, 0-3 #### [facility] CLIA [id number] [address] [place] [address] [place] Creatinine and Glomerular filtration rate.predicted panel (S/P/Bld) 81 mL/min/1.73m??? Normal >=60 [facility] Comment on above: Order Comment: Samson morrow Type: BLOOD SPECIMEN Ordering Facility: [facility] Address: [address] [place] [address] Result Comment: Betty mated Glomerular Filtration Rate [...] Performed By: #### 2 4323-8, 3040-3 #### [facility] CLIA [id number] [address] [place] [address] [place] Glucose [Mass/Vol] 106 mg/dL High 74-99 [facility] Comment on above: Order Comment: Samson morrow Type: BLOOD SPECIMEN Ordering Facility: [facility] Address: [address] [place] [address] Result Comment: The [place] Diabetes Association (ADA) provides guidance for cutoff [...] Standards of Medical Care in Diabetes 2016, [place] [employer]. Diabetes Care. 2016.39(Suppl 1). Performed By: #### 2 4323-8, 3040-3 #### [facility] CLIA [id number] [address] [place] [address] [place] Potassium [Moles/Vol] 4.4 mmol/L Normal 3.7-5.1 [facility] Comment on above: Order Comment: Speci men Type: BLOOD SPECIMEN Ordering Facility: [facility] Address: [address] [place] [address] Performed By: #### 2 4323-8, 3040-3 #### [facility] CLIA [id number] [address] [place] Protein [Mass/Vol] 7.9 g/dL Normal 6.3-8.0 [facility] Comment on above: Order Comment: Speci men Type: BLOOD SPECIMEN Ordering Facility: [facility] Address: [address] [place] [address] Performed By: #### 2 4323-8, 3040-3 #### [facility] CLIA [id number] [address] [place] Sodium [Moles/Vol] 135 mmol/L Low 136-144 [facility] Comment on above: Order Comment: Speci men Type: BLOOD SPECIMEN Ordering Facility: [facility] Address: [address] [place] [address] Performed By: #### 2 4323-8, 3040-3 #### [facility] CLIA [id number] [address] [place] Urea nitrogen [Mass/Vol] 11 mg/dL Normal 7-21 [facility] Comment on above: Order Comment: Speci men Type: BLOOD SPECIMEN Ordering Facility: [facility] Address: [address] [place] [address] Performed By: #### 2 4323-8, 3040-3 #### [facility] CLIA [id number] [address] [place] ECG COMPLETEon 12-28-2024 ECG COMPLETE Ventricular Rate : 4 9 BPM Atrial Rate : 49 BPM P-R Interval : 132 ms QRS Duration : 84 ms Q-T Interval : 432 ms QTC Calculation(Bazett) : 390 ms Calculated P [place] : 36 degrees Calculated R [place] : 0 degrees Calculated T [place] : 78 degrees SINUS BRADYCARDIA MINIMAL VOLTAGE CRITERIA FOR LVH, MAY BE NORMAL VARIANT ( R in aVL ) NONSPECIFIC ST ABNORMALITY ABNORMAL ECG WHEN COMPARED WITH ECG OF 14-Sep-2017 19:37, NONSPECIFIC T WAVE ABNORMALITY NOW EVIDENT IN LATERAL LEADS Confirmed by MD MORRIS THOMAS ([id number]) on 01/11/2025 11:00:12 PM NAME : BEV WEBB PID : [id number] : 1975 Gender : Female Race : ORD : [id number] Procedure Date : Dec 28 2024 17:47:45 Edit Date : Jan 11 2025 23:00:12 Diagnosis: SINUS BRADYCARDIA MINIMAL VOLTAGE CRITERIA FOR LVH, MAY BE NORMAL VARIANT ( R in aVL ) NONSPECIFIC ST ABNORMALITY ABNORMAL ECG WHEN COMPARED WITH ECG OF 14-Sep-2017 19:37, NONSPECIFIC T WAVE ABNORMALITY NOW EVIDENT IN LATERAL LEADS Confirmed by MD MORRIS THOMAS ([id number]) on 01/11/2025 11:00:12 PM Test Reason : Chest Pain Location : 4 : [facility] Overread By : MD MORRIS THOMAS Edited By : MD MORRIS THOMAS Referred By : , Acquired by : BI SAEED [facility] ED NOTEon 12-28-2024 ED NOTE HNO ID: [id number] Author: IVORY WALTON RN Service: Emergency Medicine Author Type: Registered Nurse Type: ED Notes Filed: 12/28/2024 22:52 Note Text: Son to pull this nurse to the side and state that pt also uses Kratom from the vape store. Unsure of when last use was and unsure of amount. notified. [facility] ED NOTE HNO ID: [id number] Author: IVORY WALTON RN Service: Emergency Medicine Author Type: Registered Nurse Type: ED Notes Filed: 12/28/2024 22:14 Note Text: Pt visitor to pull this nurse aside and state that pt has had an opioid addiction in the past and believes that pt is still occasionally using. Pt visitor states concerns of any pain medication that may be ordered for this pt. notified. [facility] ED NOTE HNO ID: [id number] Author: GI SHANNON RN Service: ? Author Type: Registered Nurse Type: ED Notes Filed: 12/28/2024 22:06 Note Text: Bed: 19-ED Expected date: Expected time: Means of arrival: Comments: TRIAGE [facility] ED NOTE HNO ID: [id number] Author: MEERA STEELE RN Service: ? Author Type: Registered Nurse Type: ED Notes Filed: 12/28/2024 17:56 Note Text: CT notified Normal [facility] ED PROV NOTEon 12-28-2024 ED PROV NOTE HNO ID: [id number] Author: GI BAILEY MD Service: Emergency Medicine [...] in symptoms she decided to go to [facility] this past Tuesday where she states [...] Sexual acti (more content not included)... Normal [facility] ED Triage Noteon 12-28-2024 ED Triage Note HNO ID: [id number] Author: JOSE WALTON APRN.INTERNATIONAL PROJECT MANAGER Service: ? Author Type: Nurse Practitioner Type: [...] having pain and pressure. Was admitted to [place] had a syncopal event and got chest [...] ECG COMPLETE SIGNATURE: Jose Walton APRN.CNP Normal [facility] HIGH SENSITIVITY TROPONIN T (INITIAL)on 12-28-2024 Troponin T.cardiac High sensitivity method [Mass/Vol] <6 Normal <12 [facility] Comment on above: Order Comment: Speci men Type: BLOOD SPECIMEN Ordering Facility: [facility] Address: [address] [place] [address] Performed By: #### L [id number] #### [facility] CLIA [id number] [address] HIGH SENSITIVITY TROPONIN T (SECOND)on 12-28-2024 Troponin T.cardiac High sensitivity method [Mass/Vol] <6 Normal <12 [facility] Comment on above: Order Comment: Speci men Type: BLOOD SPECIMEN Ordering Facility: [facility] Address: [address] [place] [address] Performed By: #### L [id number] #### [facility] CLIA [id number] [address] [place] Lipase SerPl-cCncon 12-28-19 25 Lipase [Catalytic activity/Vol] 16 U/L Normal 16-61 [facility] Comment on above: Order Comment: Speci men Type: BLOOD SPECIMEN Ordering Facility: [facility] Address: [address] [place] [address] Performed By: #### 2 4323-8, 3040-3 #### [facility] CLIA [id number] [address] [place] Urinalysis complete panel (U )on 12-28-2024 Bilirubin Ql (U) Negative Normal Negative [facility] Comment on above: Order Comment: Speci men Type: URINE SPECIMEN Ordering Facility: [facility] Address: [address] [place] [address] Performed By: #### 2 4356-8 #### [facility] CLIA [id number] [address] [place] Clarity (Unsp spec) Turbid Abnormal Clear [facility] Comment on above: Order Comment: Speci men Type: URINE SPECIMEN Ordering Facility: [facility] Address: [address] [place] [address] Performed By: #### 2 4356-8 #### [facility] CLIA [id number] [address] [place] Color (U) Yellow Normal yellow [facility] Comment on above: Order Comment: Speci men Type: URINE SPECIMEN Ordering Facility: [facility] Address: [address] [place] [address] Performed By: #### 2 4356-8 #### [facility] CLIA [id number] [address] [place] Epithelial cells LM.HPF (Urine sed) [#/Area] Many Normal [facility] Comment on above: Order Comment: Speci men Type: URINE SPECIMEN Ordering Facility: [facility] Address: [facility] [place] [address] Performed By: #### 2 4356-8 #### [facility] CLIA [id number] [address] [place] Glucose Test strip (U) [Mass/Vol] Negative Normal Trace, Negative [facility] Comment on above: Order Comment: Speci men Type: URINE SPECIMEN Ordering Facility: [facility] Address: [address] [place] [address] Performed By: #### 2 4356-8 #### [facility] CLIA [id number] [address] [place] Hemoglobin Ql (U) Trace Normal Negative, Trace [facility] Comment on above: Order Comment: Speci men Type: URINE SPECIMEN Ordering Facility: [facility] Address: [address] [place] [address] Performed By: #### 2 4356-8 #### [facility] CLIA [id number] [address] [place] Ketones Ql (U) Negative Normal Negative, Trace [facility] Comment on above: Order Comment: Speci men Type: URINE SPECIMEN Ordering Facility: [facility] Address: [address] [place] [address] Performed By: #### 2 4356-8 #### [facility] CLIA [id number] [address] Leukocyte esterase Test strip Ql (U) 250 Cookie/uL Abnormal Negative, 25 Cookie/uL [facility] Comment on above: Order Comment: Speci men Type: URINE SPECIMEN Ordering Facility: [facility] Address: [address] [place] [address] Performed By: #### 2 4356-8 #### [facility] CLIA [id number] [address] [place] Nitrite Ql (U) Negative Normal Negative [facility] Comment on above: Order Comment: Speci men Type: URINE SPECIMEN Ordering Facility: [facility] Address: [address] [place] [address] Performed By: #### 2 4356-8 #### [facility] CLIA [id number] [address] [place] pH (U) 6.0 [pH] Normal 5.0-8.0 [facility] Comment on above: Order Comment: Speci men Type: URINE SPECIMEN Ordering Facility: [facility] Address: [address] [place] [address] Performed By: #### 2 4356-8 #### [facility] CLIA [id number] [address] Protein (U) [Mass/Vol] Trace Normal Trace , Negative [facility] Comment on above: Order Comment: Speci men Type: URINE SPECIMEN Ordering Facility: [facility] Address: [address] [place] [address] Performed By: #### 2 4356-8 #### [facility] CLIA [id number] [address] [place] RBC LM.HPF (Urine sed) [#/Area] 3-5 /HPF Abnormal 0-3 /HPF [facility] Comment on above: Order Comment: Speci men Type: URINE SPECIMEN Ordering Facility: [facility] Address: [address] [place] [address] Performed By: #### 2 4356-8 #### [facility] CLIA [id number] [address] Specific gravity (U) [Rel density] 1.024 Normal 1.005-1.030 [facility] Comment on above: Order Comment: Speci men Type: URINE SPECIMEN Ordering Facility: [facility] Address: [address] [place] [address] Performed By: #### 2 4356-8 #### [facility] CLIA [id number] [address] [place] Urobilinogen Ql (U) Normal Normal Normal [facility] Comment on above: Order Comment: Speci men Type: URINE SPECIMEN Ordering Facility: [facility] Address: [address] [place] [address] Performed By: #### 2 4356-8 #### [facility] CLIA [id number] [address] WBC LM.HPF (Urine sed) [#/Area] 0-5 /HPF Normal 0-5 /HPF [facility] Comment on above: Order Comment: Speci men Type: URINE SPECIMEN Ordering Facility: [facility] Address: [address] [place] [address] Performed By: #### 2 4356-8 #### [facility] CLIA [id number] [address] Basic Metabolic Profile (BMP )on 12-27-2024 BUN/CRE 17.4 RATIO Normal 10-20 [facility] Comment on above: Performed By: #### L 501.9520, L500.2500, L100.0100 #### [facility] [address] [place], [address] CA,Total 8.6 mg/dL Normal 8.5-10.1 [facility] Comment on above: Performed By: #### L 501.9520, L500.2500, L100.0100 #### [facility] [address] [place], [address] Chloride [Moles/Vol] 109 mmol/L High 98-107 [facility] Comment on above: Performed By: #### L 501.9520, L500.2500, L100.0100 #### [facility] [address] [place], [address] CO2 [Moles/Vol] 27.0 mmol/L Normal 21.0-32.0 [facility] Comment on above: Performed By: #### L 501.9520, L500.2500, L100.0100 #### [facility] [address] [place], [address] Creatinine [Mass/Vol] 0.69 mg/dL Normal 0.55-1.02 [facility] Comment on above: Result Comment: The validity of the calculated GFR GFRAA in patients over 70 years has not been determined. Clinical correlation is essential. Performed By: #### L 501.9520, L500.2500, L100.0100 #### [facility] [address] [place], [address] ECRCL 96.96 ml/min Normal [facility] Comment on above: Performed By: #### L 501.9520, L500.2500, L100.0100 #### [facility] [address] [place], [address] EST GFR - AA 116 mL/min Normal >60 [facility] Comment on above: Result Comment: Afri can [place] GFR Calc Performed By: #### L 501.9520, L500.2500, L100.0100 #### [facility] [address] [place], [address] GAP 4 Low 5-15 [facility] Comment on above: Performed By: #### L 501.9520, L500.2500, L100.0100 #### [facility] [address] [place], [address] GFR/1.73 sq M.predicted among non-blacks MDRD (S/P/Bld) [Vol rate/Area] 96 mL/min/{1.73_m2} Normal >60 [facility] Comment on above: Result Comment: Non- GFR Calc Performed By: #### L 501.9520, L500.2500, L100.0100 #### [facility] [address] [place], [address] Glucose [Mass/Vol] 92 mg/dL Normal 74-106 [facility] Comment on above: Performed By: #### L 501.9520, L500.2500, L100.0100 #### [facility] [address] [place], [address] Potassium [Moles/Vol] 4.1 mmol/L Normal 3.5-5.1 [facility] Comment on above: Performed By: #### L 501.9520, L500.2500, L100.0100 #### [facility] [address] [place], [address] Sodium [Moles/Vol] 140 mmol/L Normal 136-145 [facility] Comment on above: Performed By: #### L 501.9520, L500.2500, L100.0100 #### [facility] [address] [place], [address] Urea nitrogen [Mass/Vol] 12 mg/dL Normal 7-18 [facility] Comment on above: Performed By: #### L 501.9520, L500.2500, L100.0100 #### [facility] [address] [place], [address] CBC W/Diff, Automatedon 12-09 Absolute Lymph 3.85 X10 3/uL Normal 0.83-4.51 [facility] Comment on above: Performed By: #### L 501.9520, L500.2500, L100.0100 #### [facility] [address] [place], [address] Absolute Neut 4.8 X10 3/uL Normal 2.0-7.7 [facility] Comment on above: Performed By: #### L 501.9520, L500.2500, L100.0100 #### [facility] [address] [place], [address] Basophils/100 WBC (Bld) 0.7 % Normal 0-1 [facility] Comment on above: Performed By: #### L 501.9520, L500.2500, L100.0100 #### [facility] [address] [place], [address] Eosinophils/100 WBC (Bld) 3.9 % Normal 0-5 [facility] Comment on above: Performed By: #### L 501.9520, L500.2500, L100.0100 #### [facility] [address] [place], [address] Erythrocyte distribution width (RBC) [Ratio] 18.0 % High 11.6-14.6 [facility] Comment on above: Performed By: #### L 501.9520, L500.2500, L100.0100 #### [facility] [address] [place], [address] Hematocrit (Bld) [Volume fraction] 41.1 % Normal 37-47 [facility] Comment on above: Performed By: #### L 501.9520, L500.2500, L100.0100 #### [facility] [address] [place], [address] Hemoglobin (Bld) [Mass/Vol] 12.7 g/dL Normal 12.0-15.0 [facility] Comment on above: Performed By: #### L 501.9520, L500.2500, L100.0100 #### [facility] [address] [place], [address] IG% 1.000 High 0.0-0.9 [facility] Comment on above: Result Comment: IG% - Immature Granulocytes (promyelocytes, myelocytes and metamyelocytes) > 1% indicates that a LEFT SHIFT is Present. Performed By: #### L 501.9520, L500.2500, L100.0100 #### [facility] [address] [place], [address] Lymphocytes/100 WBC (Bld) 38.8 % Normal 19-41 [facility] Comment on above: Performed By: #### L 501.9520, L500.2500, L100.0100 #### [facility] [address] [place], [address] MCH (RBC) [Entitic mass] 27.1 pg Normal 27.0-32.0 [facility] Comment on above: Performed By: #### L 501.9520, L500.2500, L100.0100 #### [facility] [address] [place], [address] MCHC (RBC) [Mass/Vol] 30.9 g/dL Low 32-36 [facility] Comment on above: Performed By: #### L 501.9520, L500.2500, L100.0100 #### [facility] [address] [place], [address] MCV (RBC) [Entitic vol] 87.8 fL Normal 81-99 [facility] Comment on above: Performed By: #### L 501.9520, L500.2500, L100.0100 #### [facility] [address] [place], [address] Monocytes/100 WBC (Bld) 7.5 % Normal 0-10 [facility] Comment on above: Performed By: #### L 501.9520, L500.2500, L100.0100 #### [facility] [address] [place], [address] Neutrophils/100 WBC (Bld) 48.1 % Normal 47-70 [facility] Comment on above: Performed By: #### L 501.9520, L500.2500, L100.0100 #### [facility] [address] [place], [address] Nucleated RBC (Bld) [#/Vol] 0 10*3/uL Normal 0-5 [facility] Comment on above: Performed By: #### L 501.9520, L500.2500, L100.0100 #### [facility] [address] [place], [address] Platelet mean volume (Bld) [Entitic vol] 10.2 fL Normal 6.2-12.0 [facility] Comment on above: Performed By: #### L 501.9520, L500.2500, L100.0100 #### [facility] [address] [place], [address] Platelets (Bld) [#/Vol] 380 10*3/uL Normal 150-450 [facility] Comment on above: Performed By: #### L 501.9520, L500.2500, L100.0100 #### [facility] [address] [place], [address] RBC (Bld) [#/Vol] 4.68 10*6/uL Normal 4.2-5.4 [facility] Comment on above: Performed By: #### L 501.9520, L500.2500, L100.0100 #### [facility] [address] [place], [address] RDW SD 57.9 fl High 35.1-43.9 [facility] Comment on above: Performed By: #### L 501.9520, L500.2500, L100.0100 #### [facility] [address] [place], [address] WBC (Bld) [#/Vol] 9.9 10*3/uL Normal 4.4-11.0 [facility] Comment on above: Performed By: #### L 501.9520, L500.2500, L100.0100 #### [facility] [address] [place], [address] Discharge Instructionon 12-09 Discharge Instruction [facility] Medical Records Department [address] [place] [address] Instructions for Home/Discharge Instructions 12/27/24 1152 MR#: [id number] Acct: [id number] Name: BEV WEBB Rep #: [id number] : 1975 49 From: Singh Tenorio MD [...] can be placed): Home, Self Care 12/27/24 0737 Singh Tenorio MD CC: Dr. Daphne Hernández MD; Dr. Martinez Garcia MD Signed Normal [facility] RESPIRATORY PANEL MOLECULARo n 12-27-2024 RP PANEL ADENOVIRUS Not Detected INFLUENZA A Not Detected INFLUENZA A (SUBTYPE H1) Not Detected INFLUENZA A (SUBTYPE H3) Not Detected INFLUENZA B Not Detected HUMAN METAPHNEUMO Not Detected PARAINFLUENZA 1 Not Detected PARAINFLUENZA 2 Not Detected PARAINFLUENZA 3 Not Detected PARAINFLUENZA 4 Not Detected RHINOVIRUS Not Detected RSV A Not Detected RSV B Not Detected Normal [facility] Comment on above: Performed By: #### M 100.638 #### [facility] [address] [facility] [place], [address] Thyroid Stim Hormone (TSH)on 12-27-2024 TSH 0.828 uIU/mL Normal 0.358-3.740 [facility] Comment on above: Performed By: #### L 501.9520, L500.2500, L100.0100 #### [facility] [address] [place], [address] Basic Metabolic Profile (BMP )on 12-26-2024 BUN/CRE 13.3 RATIO Normal - [facility] Comment on above: Performed By: #### L 500.3400, L501.5200, L501.9520, L501.5425, L100.0100, L500.2500 #### [facility] [address] [place], [address] CA,Total 8.9 mg/dL Normal 8.5-10.1 [facility] Comment on above: Performed By: #### L 500.3400, L501.5200, L501.9520, L501.5425, L100.0100, L500.2500 #### [facility] [address] [place], [address] Chloride [Moles/Vol] 106 mmol/L Normal 98-107 [facility] Comment on above: Performed By: #### L 500.3400, L501.5200, L501.9520, L501.5425, L100.0100, L500.2500 #### [facility] [address] [place], [address] CO2 [Moles/Vol] 24.0 mmol/L Normal 21.0-32.0 [facility] Comment on above: Performed By: #### L 500.3400, L501.5200, L501.9520, L501.5425, L100.0100, L500.2500 #### [facility] [address] [place], [address] Creatinine [Mass/Vol] 0.90 mg/dL Normal 0.55-1.02 [facility] Comment on above: Result Comment: The validity of the calculated GFR GFRAA in patients over 70 years has not been determined. Clinical correlation is essential. Performed By: #### L 500.3400, L501.5200, L501.9520, L501.5425, L100.0100, L500.2500 #### [facility] [address] [place], [address] ECRCL 73.54 ml/min Normal [facility] Comment on above: Performed By: #### L 500.3400, L501.5200, L501.9520, L501.5425, L100.0100, L500.2500 #### [facility] [address] [place] [place], [address] EST GFR - AA 85 mL/min Normal >60 [facility] Comment on above: Result Comment: Afri can [place] GFR Calc Performed By: #### L 500.3400, L501.5200, L501.9520, L501.5425, L100.0100, L500.2500 #### [facility] [address] [place], [address] GAP 8 Normal 5-15 [facility] Comment on above: Performed By: #### L 500.3400, L501.5200, L501.9520, L501.5425, L100.0100, L500.2500 #### [facility] [address] [place], [address] GFR/1.73 sq M.predicted among non-blacks MDRD (S/P/Bld) [Vol rate/Area] 70 mL/min/{1.73_m2} Normal >60 [facility] Comment on above: Result Comment: Non- GFR Calc Performed By: #### L 500.3400, L501.5200, L501.9520, L501.5425, L100.0100, L500.2500 #### [facility] [address] [place], [address] Glucose [Mass/Vol] 116 mg/dL High 74-106 [facility] Comment on above: Result Comment: Fast ing Glucose result from 100 to 125 mg/dL suggests IMPAIRED HOMEOSTASIS per A.D.A. criteria. Performed By: #### L 500.3400, L501.5200, L501.9520, L501.5425, L100.0100, L500.2500 #### [facility] [address] [place], [address] Potassium [Moles/Vol] 3.5 mmol/L Normal 3.5-5.1 [facility] Comment on above: Performed By: #### L 500.3400, L501.5200, L501.9520, L501.5425, L100.0100, L500.2500 #### [facility] [address] [place], [address] Sodium [Moles/Vol] 138 mmol/L Normal 136-145 [facility] Comment on above: Performed By: #### L 500.3400, L501.5200, L501.9520, L501.5425, L100.0100, L500.2500 #### [facility] [address] [place], [address] Urea nitrogen [Mass/Vol] 12 mg/dL Normal 7-18 [facility] Comment on above: Performed By: #### L 500.3400, L501.5200, L501.9520, L501.5425, L100.0100, L500.2500 #### [facility] [address] [place], [address] Brain/Head without Contrasto n 12-26-2024 Brain/Head without Contrast [facility] Imaging Services [address] [place] [address] Brain/Head without Contrast MR#: [id number] Acct: [id number] Name: BEV WEBB Rep #: [id number] : 1975 F 49 From: Irving Gutierrez MD PCP: Dr. Martinez Garcia MD Status: [facility] Study: Brain/Head without Contrast Date of Exam: 12/08 08/01 Exam# [id number] Ordering Dr: Azra Flores DO EXAM: CT [...] inflammation. Reading Location: [facility] CC: Dr. Azra Flores, DO; Dr. Martinez Garcia MD Stage Set Up Worker: Signed Normal [facility] CBC W/Diff, Automatedon 12-08 Absolute Lymph 5.53 X10 3/uL High 0.83-4.51 [facility] Comment on above: Performed By: #### L 500.3400, L501.5200, L501.9520, L501.5425, L100.0100, L500.2500 #### [facility] [address] [place], [address] Absolute Neut 5.7 X10 3/uL Normal 2.0-7.7 [facility] Comment on above: Performed By: #### L 500.3400, L501.5200, L501.9520, L501.5425, L100.0100, L500.2500 #### [facility] [address] [place], [address] Basophils/100 WBC (Bld) 0.5 % Normal 0-1 [facility] Comment on above: Performed By: #### L 500.3400, L501.5200, L501.9520, L501.5425, L100.0100, L500.2500 #### [facility] [address] [place], [address] Eosinophils/100 WBC (Bld) 3.2 % Normal 0-5 [facility] Comment on above: Performed By: #### L 500.3400, L501.5200, L501.9520, L501.5425, L100.0100, L500.2500 #### [facility] [address] [place], [address] Erythrocyte distribution width (RBC) [Ratio] 18.0 % High 11.6-14.6 [facility] Comment on above: Performed By: #### L 500.3400, L501.5200, L501.9520, L501.5425, L100.0100, L500.2500 #### [facility] [address] [place], [address] Hematocrit (Bld) [Volume fraction] 39.1 % Normal 37-47 [facility] Comment on above: Performed By: #### L 500.3400, L501.5200, L501.9520, L501.5425, L100.0100, L500.2500 #### [facility] [address] [place], [address] Hemoglobin (Bld) [Mass/Vol] 12.0 g/dL Normal 12.0-15.0 [facility] Comment on above: Performed By: #### L 500.3400, L501.5200, L501.9520, L501.5425, L100.0100, L500.2500 #### [facility] [address] [place], [address] IG% 1.200 High 0.0-0.9 [facility] Comment on above: Result Comment: IG% - Immature Granulocytes (promyelocytes, myelocytes and metamyelocytes) > 1% indicates that a LEFT SHIFT is Present. Performed By: #### L 500.3400, L501.5200, L501.9520, L501.5425, L100.0100, L500.2500 #### [facility] [address] [place], [address] Lymphocytes/100 WBC (Bld) 42.1 % High 19-41 [facility] Comment on above: Performed By: #### L 500.3400, L501.5200, L501.9520, L501.5425, L100.0100, L500.2500 #### [facility] [address] [place], [address] MCH (RBC) [Entitic mass] 27.1 pg Normal 27.0-32.0 [facility] Comment on above: Performed By: #### L 500.3400, L501.5200, L501.9520, L501.5425, L100.0100, L500.2500 #### [facility] [address] [place], [address] MCHC (RBC) [Mass/Vol] 30.7 g/dL Low 32-36 [facility] Comment on above: Performed By: #### L 500.3400, L501.5200, L501.9520, L501.5425, L100.0100, L500.2500 #### [facility] [address] [place], [address] MCV (RBC) [Entitic vol] 88.5 fL Normal 81-99 [facility] Comment on above: Performed By: #### L 500.3400, L501.5200, L501.9520, L501.5425, L100.0100, L500.2500 #### [facility] [address] [place], [address] Monocytes/100 WBC (Bld) 9.7 % Normal 0-10 [facility] Comment on above: Performed By: #### L 500.3400, L501.5200, L501.9520, L501.5425, L100.0100, L500.2500 #### [facility] [address] [place], [address] Neutrophils/100 WBC (Bld) 43.3 % Low 47-70 [facility] Comment on above: Performed By: #### L 500.3400, L501.5200, L501.9520, L501.5425, L100.0100, L500.2500 #### [facility] [address] [place], [address] Nucleated RBC (Bld) [#/Vol] 0 10*3/uL Normal 0-5 [facility] Comment on above: Performed By: #### L 500.3400, L501.5200, L501.9520, L501.5425, L100.0100, L500.2500 #### [facility] [address] [place], [address] Platelet mean volume (Bld) [Entitic vol] 9.8 fL Normal 6.2-12.0 [facility] Comment on above: Performed By: #### L 500.3400, L501.5200, L501.9520, L501.5425, L100.0100, L500.2500 #### [facility] [address] [place], [address] Platelets (Bld) [#/Vol] 377 10*3/uL Normal 150-450 [facility] Comment on above: Performed By: #### L 500.3400, L501.5200, L501.9520, L501.5425, L100.0100, L500.2500 #### [facility] [address] [place], [address] RBC (Bld) [#/Vol] 4.42 10*6/uL Normal 4.2-5.4 [facility] Comment on above: Performed By: #### L 500.3400, L501.5200, L501.9520, L501.5425, L100.0100, L500.2500 #### [facility] [address] [place], [address] RDW SD 58.4 fl High 35.1-43.9 [facility] Comment on above: Performed By: #### L 500.3400, L501.5200, L501.9520, L501.5425, L100.0100, L500.2500 #### [facility] [address] [place], [address] WBC (Bld) [#/Vol] 13.1 10*3/uL High 4.4-11.0 [facility] Comment on above: Performed By: #### L 500.3400, L501.5200, L501.9520, L501.5425, L100.0100, L500.2500 #### [facility] [address] [place], [place], [address] CTA Chst, Abd, Pel W and/or WOon 12-26-2024 CTA Chst, Abd, Pel W and/or WO [facility] Imaging Services [address] [place], [place] [address] CTA Chst, Abd, Pel W and/or WO MR#: [id number] Acct: [id number] Name: BEV WEBB Rep #: [id number] : 1975 F 49 From: Vijay garcia MD PCP: Dr. Martinez Garcia MD Status: PRE ER Study: CTA Chst, Abd, Pel W and/or WO Date of Exam: 0 12/26/24 Exam# [id number] Ordering Dr: Azra Flores DO PROCEDURE: CTA [...] use of iterative reconstruction technique). Reading Location: [facility] CC: Dr. Azra Flores DO; Dr. Martinez Garcia MD Stage Set Up Worker: Signed Normal [facility] Echo Completeon 12-26-2024 Echo Complete [facility]ovascular Services [address] [place] [address] Echo Complete 12/27/24 0906 MR#: [id number] Acct: [id number] Name: BEV WEBB Rep #: [id number] : 1975 49 From: Lisa Marley MD [...] MD; Dr. Martinez Garcia MD Date Dictated: 12/27/24905 Date Transcribed: 12/27/24 1239 Stage Set Up Worker: Signed Normal [facility] Emergency Department Summary on 12-26-2024 Emergency Department Summary [facility] Medical Records Department [address] [place] [address] Emergency Department Summary 12/26/24 MR#: [id number] Acct: [id number] Name: BEV WEBB Rep #: [id number] : 1975 49 From: Azra Flores DO PCP: Dr. Martinez Garcia MD Status:ADM IN Location: ICU [id number] HPI History of Present Illness Chief Complaint: [...] of chest compressions before waking up. RYANNE OXANA called in the emergency room. Patient come to by the time I arrived. Was taken from triage to ER room. Patient denied any chest pain. Is able to give me full HPI. [facility] Medical History Essential (primary) hypertension Atherosclerotic heart disease of [place] coronary artery without angina pectoris Stomach ulcer [...] Room Air (more content not included)... Normal [facility] H AND P Exam - Hospitaliston 12-26-2024 H&P Exam - Hospitalist [facility] Medical Records Department [address] [place] [address] H P Exam - Hospitalist 12/26/24 1528 MR#: [id number] Acct: [id number] Name: BEV WEBB Rep #: [id number] : 1975 49 From: Daphne Hernández MD PCP: Dr. Martinez Garcia MD Status:REG ER Location: ED HPI - General General Date of Service: 12/26/24 Chief Complaint: flu like symptoms, syncope and collapse HPI Narrative BEV WEBB, is a 49-year-old female with history of COPD, coronary artery disease, tobacco use, hypertension, GERD, depression who presented [facility] ED 12/26/2024 with flulike symptoms, right [...] now with pressure primarily behind her eyes. [facility] Medical History Essential (primary) hypertension Atherosclerotic heart disease of [place] coronary artery without angina pectoris Stomach ulcer [...] HENT: Nasal congestion and head pressure EYES: Denies bailon (more content not included)... Normal [facility] L501.4020on 12-26-2024 TROPONIN-I HS 8 pg/mL Normal 3.0-54.0 [facility] Comment on above: Result Comment: Anton brunner Note: New Test Units and Gender Specific Reference Ranges. For more information see Policy Stat Procedure Coleman High Sensitivity Troponin (TNIH) and attachments. Performed By: #### L 501.4020 #### [facility] [address] [place], [address] L501.5425on 12-26-2024 TROPONIN-I HS 7 pg/mL Normal 3.0-54.0 [facility] Comment on above: Order Comment: 1Y Result Comment: Plea se Note: New Test Units and Gender Specific Reference Ranges. For more information see Policy Stat Procedure Coleman High Sensitivity Troponin (TNIH) and attachments. Performed By: #### M 8200.2203 #### [facility] [address] [place], [address] Liver Profileon 12-26-2024 Albumin [Mass/Vol] 3.0 g/dL Low 3.2-5.0 [facility] Comment on above: Performed By: #### L 500.3400, L501.5200, L501.9520, L501.5425, L100.0100, L500.2500 #### [facility] [address] [place], [address] ALK P 160 U/L High 45-117 [facility] Comment on above: Performed By: #### L 500.3400, L501.5200, L501.9520, L501.5425, L100.0100, L500.2500 #### [facility] [address] [place], [address] ALT [Catalytic activity/Vol] 58 U/L High 13-56 [facility] Comment on above: Performed By: #### L 500.3400, L501.5200, L501.9520, L501.5425, L100.0100, L500.2500 #### [facility] [address] [place], [address] AST [Catalytic activity/Vol] 34 U/L Normal 15-37 [facility] Comment on above: Performed By: #### L 500.3400, L501.5200, L501.9520, L501.5425, L100.0100, L500.2500 #### [facility] [address] [place], [address] Bilirubin [Mass/Vol] 0.10 mg/dL Low 0.20-1.00 [facility] Comment on above: Result Comment: For patients on eltrombopag therapy, use of Dimension Coleman TBIL is not recommended. Performed By: #### L 500.3400, L501.5200, L501.9520, L501.5425, L100.0100, L500.2500 #### [facility] [address] [place], [address] Bilirubin.direct [Mass/Vol] 0.07 mg/dL Normal 0.00-0.30 [facility] Comment on above: Performed By: #### L 500.3400, L501.5200, L501.9520, L501.5425, L100.0100, L500.2500 #### [facility] [address] [place], [address] Globulin (S) [Mass/Vol] 4.0 g/dL Normal 2.2-4.2 [facility] Comment on above: Performed By: #### L 500.3400, L501.5200, L501.9520, L501.5425, L100.0100, L500.2500 #### [facility] [address] [place], [address] T PROT 7.0 g/dL Normal 6.4-8.2 [facility] Comment on above: Performed By: #### L 500.3400, L501.5200, L501.9520, L501.5425, L100.0100, L500.2500 #### [facility] [address] [place], [address] M100.678on 12-26-2024 M100.678 SARS-CoV-2 (COVID 19 ) Negative INFLUENZA A Negative INFLUENZA B Negative RSV PCR Negative Normal [facility] Comment on above: Performed By: #### L 501.4020 #### [facility] [address] [place], [address] Magnesiumon 12-26-2024 Magnesium [Mass/Vol] 1.8 mg/dL Normal 1.6-2.6 [facility] Comment on above: Performed By: #### M 8200.2203 #### [facility] [address] [place], [address] Thyroid Stim Hormone (TSH)on 12-26-2024 TSH 0.738 uIU/mL Normal 0.358-3.740 [facility] Comment on above: Performed By: #### M 8200.2203 #### [facility] [address] [place], [address] Urinalysis, Completeon 12-26 EPI,SQUAMOUS 0-5 SEEN Normal 5-10 [facility] Comment on above: Order Comment: CAROL CTOR TO SPECIFY Performed By: #### L 501.4020 #### [facility] [address] [place], [address] RBC 0-5 SEEN Normal 0-5 [facility] Comment on above: Order Comment: CAROL CTOR TO SPECIFY Performed By: #### L 501.4020 #### [facility] [address] [place], [address] BACTERIA 0 SEEN Normal None Seen [facility] Comment on above: Order Comment: COLLE CTOR TO SPECIFY Performed By: #### L 501.4020 #### [facility] [address] [place], [address] Mucus Ql (Urine sed) 0 SEEN Normal [facility] Comment on above: Order Comment: CAROL CTOR TO SPECIFY Performed By: #### L 501.4020 #### [facility] [address] [place], [address] WBC 0 SEEN Normal 0-5 [facility] Comment on above: Order Comment: COLLE CTOR TO SPECIFY Performed By: #### L 501.4020 #### [facility] [address] [place], [address] Urine Drug Screen (VISTA)on 12-26-2024 AMPHETAMINES Negative Normal <1000 ng/mL [facility] Comment on above: Performed By: #### L 501.4020 #### [facility] [address] [place], [address] BARBITIURATES Negative Normal < 200 ng/mL [facility] Comment on above: Performed By: #### L 501.4020 #### [facility] [address] [place], [address] BENZODIAZIPINE Negative Normal < 200 ng/mL [facility] Comment on above: Performed By: #### L 501.4020 #### [facility] [address] [place], [address] COCAINE Negative Normal < 300 ng/mL [facility] Comment on above: Performed By: #### L 501.4020 #### [facility] [address] [place], [address] ECSTACY Negative Normal < 500 ng/mL [facility] Comment on above: Performed By: #### L 501.4020 #### [facility] [address] [place], [address] METHADONE Negative Normal < 300 ng/mL [facility] Comment on above: Performed By: #### L 501.4020 #### [facility] [address] [place], [address] OPIATES Negative Normal < 300 ng/mL [facility] Comment on above: Performed By: #### L 501.4020 #### [facility] [address] [place], [address] PCP Negative Normal < 25 ng/mL [facility] Comment on above: Performed By: #### L 501.4020 #### [facility] [address] [place], [address] THC Positive Abnormal < 50 ng/mL [facility] Comment on above: Performed By: #### L 501.4020 #### [facility] [address] [place], [address] VISTA UDS PH 6 Normal [facility] Comment on above: Performed By: #### L 501.4020 #### [facility] [address] [place], [address] CNOVon 12-17-2024 CNOV Office Visit (UCWSTR ) BEV WEBB ([id number]) 1975 F Date Time Provider Department 12/17/24 1:30 PM LINDSAY ASHLEY [facility] During your visit today, we recorded the following information about you: Temperature Pulse Respiration Blood pressure 98.4 degrees 108/minute 18/minute 110/70 Weight 70.8 kg Lindsay Ashley APRN.INTERNATIONAL PROJECT MANAGER 12/17/2024 2:56 PM Signed CC: Patient presents [...] needed fo (more content not included)... Normal [facility] Basic Metabolic Profile (BMP )on 10-03-2024 BUN/CRE 16.3 RATIO Normal - [facility] Comment on above: Order Comment: 1Y Performed By: #### M 8200.2203 #### [facility] [address] [place], [address] CA,Total 8.6 mg/dL Normal 8.5-10.1 [facility] Comment on above: Order Comment: 1Y Performed By: #### M 8200.2203 #### [facility] [address] [place], [address] Chloride [Moles/Vol] 106 mmol/L Normal 98-107 [facility] Comment on above: Order Comment: 1Y Performed By: #### M 8200.2203 #### [facility] [address] [place], [address] CO2 [Moles/Vol] 26.0 mmol/L Normal 21.0-32.0 [facility] Comment on above: Order Comment: 1Y Performed By: #### M 8200.2203 #### [facility] [address] [place], [address] Creatinine [Mass/Vol] 0.80 mg/dL Normal 0.55-1.02 [facility] Comment on above: Order Comment: 1Y Result Comment: The validity of the calculated GFR GFRAA in patients over 70 years has not been determined. Clinical correlation is essential. Performed By: #### M 8200.3 #### [facility] [address] [place], [address] ECRCL 81.59 ml/min Normal [facility] Comment on above: Order Comment: 1Y Performed By: #### M 8200.2203 #### [facility] [address] [place], [address] EST GFR - AA 99 mL/min Normal >60 [facility] Comment on above: Order Comment: 1Y Result Comment: Afri can [place] GFR Calc Performed By: #### M 8200.2203 #### [facility] [address] [place], [address] GAP 5 Normal 5-15 [facility] Comment on above: Order Comment: 1Y Performed By: #### M 8200.2203 #### [facility] [address] [place], [address] GFR/1.73 sq M.predicted among non-blacks MDRD (S/P/Bld) [Vol rate/Area] 82 mL/min/{1.73_m2} Normal >60 [facility] Comment on above: Order Comment: 1Y Result Comment: Non- GFR Calc Performed By: #### Delores 8200.220 #### [facility] [address] [place], [address] Glucose [Mass/Vol] 113 mg/dL High 74-106 [facility] Comment on above: Order Comment: 1Y Result Comment: Fast ing Glucose result from 100 to 125 mg/dL suggests IMPAIRED HOMEOSTASIS per A.D.A. criteria. Performed By: #### Delores 8200.220 #### [facility] [address] [place], [address] Potassium [Moles/Vol] 3.8 mmol/L Normal 3.5-5.1 [facility] Comment on above: Order Comment: 1Y Performed By: #### Delores 8200.2202 #### [facility] [address] [place], [address] Sodium [Moles/Vol] 136 mmol/L Normal 136-145 [facility] Comment on above: Order Comment: 1Y Performed By: #### Delores 8200.2202 #### [facility] [address] [place], [address] Urea nitrogen [Mass/Vol] 13 mg/dL Normal 7-18 [facility] Comment on above: Order Comment: 1Y Performed By: #### Delores 8200.2202 #### [facility] [address] [place], [address] CBC W/Diff, Automatedon 11-2 Absolute Lymph 4.91 X10 3/uL High 0.83-4.51 [facility] Comment on above: Performed By: #### M 8200.2203 #### [facility] [address] [place], [address] Absolute Neut 8.5 X10 3/uL High 2.0-7.7 [facility] Comment on above: Performed By: #### 8200.2203 #### [facility] [address] [place], [address] Basophils/100 WBC (Bld) 0.8 % Normal 0-1 [facility] Comment on above: Performed By: #### 8200.2203 #### [facility] [address] [place], [address] Eosinophils/100 WBC (Bld) 3.2 % Normal 0-5 [facility] Comment on above: Performed By: #### 8200.220 #### [facility] [address] [place], [address] Erythrocyte distribution width (RBC) [Ratio] 16.0 % High 11.6-14.6 [facility] Comment on above: Performed By: #### 8200.2203 #### [facility] [address] [place], [address] Hematocrit (Bld) [Volume fraction] 38.8 % Normal 37-47 [facility] Comment on above: Performed By: #### 8200.2203 #### [facility] [address] [place], [address] Hemoglobin (Bld) [Mass/Vol] 12.4 g/dL Normal 12.0-15.0 [facility] Comment on above: Performed By: #### 8200.2203 #### [facility] [address] [place], [address] IG% 0.700 Normal 0.0-0.9 [facility] Comment on above: Result Comment: IG% - Immature Granulocytes (promyelocytes, myelocytes and metamyelocytes) > 1% indicates that a LEFT SHIFT is Present. Performed By: #### M 8200.2203 #### [facility] [address] [place], [address] Lymphocytes/100 WBC (Bld) 32.0 % Normal 19-41 [facility] Comment on above: Performed By: #### 8200.2203 #### [facility] [address] [place], [address] MCH (RBC) [Entitic mass] 28.2 pg Normal 27.0-32.0 [facility] Comment on above: Performed By: #### 8200.220 #### [facility] [address] [place], [address] MCHC (RBC) [Mass/Vol] 32.0 g/dL Normal 32-36 [facility] Comment on above: Performed By: #### 8200.220 #### [facility] [address] [place], [address] MCV (RBC) [Entitic vol] 88.2 fL Normal 81-99 [facility] Comment on above: Performed By: #### 8200.220 #### [facility] [address] [place], [address] Monocytes/100 WBC (Bld) 8.3 % Normal 0-10 [facility] Comment on above: Performed By: #### M 8200.220 #### [facility] [address] [place], [address] Neutrophils/100 WBC (Bld) 55.0 % Normal 47-70 [facility] Comment on above: Performed By: #### M 8200.2203 #### [facility] [address] [place], [address] Nucleated RBC (Bld) [#/Vol] 0 10*3/uL Normal 0-5 [facility] Comment on above: Performed By: #### M 8200.220 #### [facility] [address] [place], [address] Platelet mean volume (Bld) [Entitic vol] 10.0 fL Normal 6.2-12.0 [facility] Comment on above: Performed By: #### M 8200.3 #### [facility] [address] [place], [address] Platelets (Bld) [#/Vol] 389 10*3/uL Normal 150-450 [facility] Comment on above: Performed By: #### 8200.2202 #### [facility] [address] [place], [address] RBC (Bld) [#/Vol] 4.40 10*6/uL Normal 4.2-5.4 [facility] Comment on above: Performed By: #### 8200.2202 #### [facility] [address] [place], [address] RDW SD 52.1 fl High 35.1-43.9 [facility] Comment on above: Performed By: #### 8200.2202 #### [facility] [address] [place], [address] WBC (Bld) [#/Vol] 15.4 10*3/uL High 4.4-11.0 [facility] Comment on above: Performed By: #### 8200.2202 #### [facility] [address] [place], [address] L501.4020on 10-03-2024 TROPONIN-I HS 13 pg/mL Normal 3.0-54.0 [facility] Comment on above: Result Comment: Plea se Note: New Test Units and Gender Specific Reference Ranges. For more information see Policy Stat Procedure Coleman High Sensitivity Troponin (TNIH) and attachments. Performed By: #### M 8200.2202 #### [facility] [address] [place], [address] L501.5425on 10-03-2024 TROPONIN-I HS 13 pg/mL Normal 3.0-54.0 [facility] Comment on above: Order Comment: 1Y Result Comment: Anton brunner Note: New Test Units and Gender Specific Reference Ranges. For more information see Policy Stat Procedure Coleman High Sensitivity Troponin (TNIH) and attachments. Performed By: #### M 8200.2203 #### [facility] [address] [place], [place], [address] Chest 1 View (Portable)on Chest 1 View (Portable) [facility] Services [address] [place], [place] [address] Chest 1 View (Portable) MR#: [id number] Acct: [id number] Name: BEV WEBB Rep #: [id number] : 1975 F 49 From: Lisa Worthington MD PCP: Dr. Martinez Garcia MD Status: REG ER Study: Chest 1 View (Portable) Date of Exam: 10/02/24 Exam# [id number] Ordering Dr: Angel Luis Bellamy MD [id number] STUDY: X-RAY CHEST REASON FOR EXAM: Female, [...] 0:17 EST Reading Location ID and State: [address] [facility] , Service support , CC: Dr. Angel Luis Bellamy MD; Dr. Martinez Garcia MD Stage Set Up Worker: Signed Normal [facility] Emergency Department Summary on 10-02-2024 Emergency Department Summary [facility] Medical Records Department [address] [place] [address] Emergency Department Summary 10/02/24 MR#: [id number] Acct: [id number] Name: BEV WEBB Rep #: [id number] : 1975 49 From: Angel Luis Bellamy [...] similar symptoms. She is a heavy smoker. [facility] Medical History Essential (primary) hypertension Atherosclerotic heart disease of [place] coronary artery without angina pectoris Stomach ulcer Heart disease Shoulder pain Hemorrhoids Lung disease Arthritis Home Medications ???Medication ???Instructions ???Recorded ???Last Taken ???Type pantoprazole 40 mg tablet,delayed 40 mg PO BID gerd 14 06/14/23 History release cetirizine 10 mg tablet [...] Room Air (more content not included)... Normal [facility] Visit Reporton 11-20-2023 Urgent Care Visit Report [facility] [address] [place] [address] OFFICE VISIT Date of Service: 09/20/24 MR#: [id number] Acct: [id number] Name: BEV WEBB Rep #: [id number] : 1975 Provider: KRISTOFER Edouard Age/Sex: 49/F [...] INFECTION Chief Complaint: Concern for sinus infection Quartz Mounter Required: No Is patient in pain?: No [...] Essential (primary) hypertension Atherosclerotic heart disease of [place] coronary artery without angina pectoris Stomach ulcer [...] Complaint: Concern for sinus infection Details: BEV WEBB is a 49 F who presents to the office today for complaint of sinus congestion/pressure and pain for the past week. She denies hemoptysis, shortness of breath or difficulty breathing. No nausea, vomiting or diarrhea. No loss of taste or smell. She has tried multiple lunb-wac-eflumwc products with no relief. No other associated symptoms or alleviating/aggravati ng factors. ROS Const Constitutional: No other (6 system ROS completed with pertinent findings in the HPI otherwise normal.) Exam Const General: cooperative and healthy appearing HENMT Head: normal to inspection Ears: hearing grossly [...] in 7-10 (more content not included)... Normal [facility] Emergency Department Summary on 09-13-2024 Emergency Department Summary [facility] Medical Records Department [address] [place] [address] Emergency Department Summary 09/13/24 MR#: [id number] Acct: [id number] Name: BEV WEBB Rep #: [id number] : 1975 49 From: Irving Byers DO [...] or vomiting. Patient denies any back pain. [facility] Medical History (Updated 09/13/24 @ 00:[address] Irving Byers, DO) Essential (primary) hypertension Atherosclerotic heart disease of [place] coronary artery without angina pectoris Stomach ulcer [...] . Lab Data (more content not included)... [facility] M8200.2203on 09-13-2024 M8200.2203 Pending Chlamydia Trachomatis PCR NEGATIVE for Chlamydia trachomatis N. gonorrhoeae PCR Negative for N. gonorrhoeae [facility] Comment on above: Performed By: #### M 8200.2203 #### [facility] [address] [place], [address] ,Urineon 09-13-2024 Beta HCG ( test) Ql (U) Negative Normal [facility] Comment on above: Order Comment: CLEAN CATCH Result Comment: Very dilute urine specimens, as indicated by a low specific gravity, may not contain patient care representative levels of hCG. If is still suspected, a first morning urine specimen should be collected 48 hours later and tested. Performed By: #### L 501.4020 #### [facility] [address] [place], [address] Urinalysis, Completeon 09-13 TRICHOMONAS 0-5 SEEN Normal None Seen [facility] Comment on above: Order Comment: CLEAN CATCH Performed By: #### L 501.4020 #### [facility] [address] [place], [address] EPI,SQUAMOUS 5-10 SEEN Normal 5-10 [facility] Comment on above: Order Comment: CLEAN CATCH Performed By: #### L 501.4020 #### [facility] [address] [place], [address] RBC 0-5 SEEN Normal 0-5 [facility] Comment on above: Order Comment: CLEAN CATCH Performed By: #### L 501.4020 #### [facility] [address] [place], [address] WBC 0-5 SEEN Normal 0-5 [facility] Comment on above: Order Comment: CLEAN CATCH Performed By: #### L 501.4020 #### [facility] [address] [place], [address] BACTERIA 0 SEEN Normal None Seen [facility] Comment on above: Order Comment: CLEAN CATCH Performed By: #### L 501.4020 #### [facility] [address] [place], [address] Mucus Ql (Urine sed) 0 SEEN Normal [facility] Comment on above: Order Comment: CLEAN CATCH Performed By: #### L 501.4020 #### [facility] [place], [address] Basophil percentageOrdered B y: Eduardo Lu on 11-14-2023 Basophil percentage 25-50 SEEN /hpf 0-5 [facility] Bilirubin Test strip Ql (U)O rdered By: Eduardo Lu on 11-14-2023 Bilirubin Ql (U) Negative Negative [facility] Ketones Test strip Ql (U)Ord ered By: Eduardo Lu on 11-14-2023 Ketones Ql (U) 5 mg/dl Negative [facility] - Chemistry and C hemistry - challengeOrdered By: Eduardo Lu on 11-14-2023 HCG ( test) Ql (U) Negative [facility] Comment on above: Very dilute urine sp ecimens, as indicated by a low specificgravity, may not contain patient care representative levels of hCG. If is still suspected, a first morning urinespecimen should be collected 48 hours later and tested. Mucus LM Ql (Urine sed)Order ed By: Eduardo Lu on 11-14-2023 Mucus Ql (Urine sed) 2+ /hpf [facility] Neisseria gonorrhoeae genita l PCROrdered By: Eduardo Lu on 11-14-2023 N. gonorrhoeae DNA ARNOLDO+probe Ql (Genital specimen) [facility] Nitrite Test strip Ql (U)Ord ered By: Eduardo Lu on 11-14-2023 Nitrite Ql (U) Negative Negative [facility] No Panel InformationOrdered By: Eduardo Lu on 11-14-2023 Chlamydia trachomatis (PCR) [facility] Protein Test strip Ql (U)Ord ered By: Eduardo Lu on 11-14-2023 Protein Ql (U) 30 mg/dl Negative [facility] Squamous epithelial cells de tection in urine sediment by light microscopyOrdered By: Eduardo Lu on 11-14-2023 Epithelial cells.squamous LM Ql (Urine sed) 0-5 SEEN /hpf 5-10 [facility] Urine blood detectionOrdered By: Eduardo Lu on 11-14-2023 RBC Ql (U) 50 /ul Negative [facility] RBC Ql (U) 0-5 SEEN /hpf 0-5 [facility] Urine clarityOrdered By: Julio César Lu on 11-14-2023 Clarity (U) Sl. Cloudy Clear [facility] Urine color determinationOrd ered By: Eduardo Lu on 11-14-2023 Color (U) Yellow Yellow [facility] Urine glucose detectionOrder ed By: Eduardo Lu on 11-14-2023 Glucose Ql (U) Normal mg/dl Normal [facility] Urine leukocyte esterase det ection by dipstickOrdered By: Eduardo Lu on 11-14-2023 Leukocyte esterase Test strip Ql (U) 500 /ul Negative [facility] Urine pHOrdered By: Eduardo marion on 11-14-2023 pH (U) 6.0 [pH] 5.0 - 8.0 [facility] Urine sediment bacteria coun t by microscopy (number/high power field)Ordered By: Eduardo Lu on 11-14-2023 Bacteria LM.HPF (Urine sed) [#/Area] 1 /[HPF] None Seen [facility] Urine specific gravity measu rementOrdered By: Eduardo Lu on 11-14-2023 Specific gravity (U) [Rel density] 1.025 1.002-1.030 [facility] Urobilinogen Auto test strip Ql (U)Ordered By: Eduardo Lu on 11-14-2023 Urobilinogen Ql (U) Normal mg/dl Normal [facility] US FEMALE PELVIS TRANSVAGon 08-11-2023 [facility] Absolute lymphocyte countOrd ered By: Ej Luther on 08-01-2023 Lymphocytes Auto (Unsp spec) [#/Vol] 2.80 10*3/uL 0.83-4.51 [facility] Basophil percentageOrdered B y: Ej Luther on 08-01-2023 Basophil percentage 0 SEEN /hpf 0-5 [facility] Basophils/100 WBC (Bld) 1.1 % 0-1 [facility] Chloride [Moles/Vol] 108 mmol/L 98-107 [facility] Eosinophils/100 WBC (Bld) 4.5 % 0-5 [facility] Glucose [Mass/Vol] 87 mg/dL 74-106 [facility] Neutrophils (Bld) [#/Vol] 8.5 10*3/uL 2.0-7.7 [facility] Neutrophils/100 WBC (Bld) 65.1 % 47-70 [facility] Potassium [Moles/Vol] 3.8 mmol/L 3.5-5.1 [facility] Sodium [Moles/Vol] 139 mmol/L 136-145 [facility] WBC (Bld) [#/Vol] 13.1 10*3/uL 4.4-11.0 [facility] Beta hCG serum qualOrdered B y: Ej Luther on 08-01-2023 Beta HCG ( test) Ql Negative [facility] Bilirubin Test strip Ql (U)O rdered By: Ej Luther on 08-01-2023 Bilirubin Ql (U) Negative Negative [facility] Blood erythrocytes count (nu mber/volume)Ordered By: Ej Luther on 08-01-2023 RBC (Bld) [#/Vol] 4.33 10*6/uL 4.2-5.4 [facility] Blood hemoglobin measurement (mass/volume)Ordered By: Ej Luther on 08-01-2023 Hemoglobin (Bld) [Mass/Vol] 11.3 g/dL 12.0-15.0 [facility] Blood lymphocytes/100 leukoc ytesOrdered By: Ej Luther on 08-01-2023 Lymphocytes/100 WBC (Bld) 21.4 % 19-41 [facility] Blood monocytes/100 leukocyt esOrdered By: Ej Luther on 08-01-2023 Monocytes/100 WBC (Bld) 7.7 % 0-10 [facility] Blood platelet mean volumeOr dered By: Ej Luther on 08-01-2023 Platelet mean volume (Bld) [Entitic vol] 9.1 fL 6.2-12.0 [facility] Determination of erythrocyte mean corpuscular volume (MCV)Ordered By: Ej Luther on 08-01-2023 MCV (RBC) [Entitic vol] 83.8 fL 81-99 [facility] Hematocrit Auto (Bld) [Volum e fraction]Ordered By: Ej Luther on 08-01-2023 Hematocrit (Bld) [Volume fraction] 36.3 % 37-47 [facility] Ketones Test strip Ql (U)Ord ered By: Ej Luther on 08-01-2023 Ketones Ql (U) Negative Negative [facility] - Chemistry and C hemistry - challengeOrdered By: Ej Luther on 08-01-2023 CO2 [Moles/Vol] 26.0 mmol/L 21.0-32.0 [facility] Urea nitrogen/Creatinine [Mass ratio] 15.4 mg/mg 10-20 [facility] - Hematology and Cell countsOrdered By: Ej Luther on 08-01-2023 Erythrocyte distribution width (RBC) [Entitic vol] 52.3 fL 35.1-43.9 [facility] Erythrocyte distribution width (RBC) [Ratio] 17.1 % 11.6-14.6 [facility] Immature granulocytes/100 WBC (Bld) 0.200 % 0.0-0.9 [facility] Comment on above: IG% - Immature Granu locytes (promyelocytes, myelocytes and metamyelocytes) > 1% indicates that a LEFT SHIFT is Present. MCH (RBC) [Entitic mass] 26.1 pg 27.0-32.0 [facility] Nucleated RBC/100 WBC (Bld) [Ratio] 0 % 0-5 [facility] MCHC Auto (RBC) [Mass/Vol]Or dered By: Ej Luther on 08-01-2023 MCHC (RBC) [Mass/Vol] 31.1 g/dL 32-36 [facility] Mucus LM Ql (Urine sed)Order ed By: Ej Luther on 08-01-2023 Mucus Ql (Urine sed) 0 SEEN /hpf [facility] Nitrite Test strip Ql (U)Ord ered By: Ej Luther on 08-01-2023 Nitrite Ql (U) Negative Negative [facility] No Panel InformationOrdered By: Ej Luther on 08-01-2023 Estimated Creatinine Clearance Calc 73.76 ml/min [facility] Estimated GFR (MDRD) Amer 102 mL/min >60 [facility] Comment on above: GFR Calc Estimated GFR (MDRD) Non-Af Amer 84 mL/min >60 [facility] Comment on above: Non- GFR Calc Troponin I High Sensitivity 7 pg/mL 3.0-54.0 [facility] Comment on above: Please Note: New Peace t Units and Gender Specific Reference Ranges. For more information see Policy Stat Procedure Coleman High Sensitivity Troponin (TNIH) and attachments. Platelets bldOrdered By: Corazon Luther on 08-01-2023 Platelets (Bld) [#/Vol] 436 10*3/uL 150-450 [facility] Protein Test strip Ql (U)Ord ered By: Ej Luther on 08-01-2023 Protein Ql (U) Negative Negative [facility] Serum or plasma calcium cornelio urement (mass/volume)Ordered By: Ej Luther on 08-01-2023 Calcium [Mass/Vol] 8.9 mg/dL 8.5-10.1 [facility] Serum or plasma creatinine m easurement (mass/volume)Ordered By: Ej Luther on 08-01-2023 Creatinine [Mass/Vol] 0.78 mg/dL 0.55-1.02 [facility] Comment on above: The validity of the calculated GFR & GFRAA in patients over 70 years has not been determined. Clinical correlation is essential. Serum or plasma urea nitroge n measurement (mass/volume)Ordered By: Ej Luther on 08-01-2023 Urea nitrogen [Mass/Vol] 12 mg/dL 7-18 [facility] Squamous epithelial cells de tection in urine sediment by light microscopyOrdered By: Ej Luther on 08-01-2023 Epithelial cells.squamous LM Ql (Urine sed) 0-5 SEEN /hpf 5-10 [facility] Thin prep Papanicolaou smear with manual screeningOrdered By: Ej Luther on 08-01-2023 Thin prep Papanicolaou smear with manual screening 5 5-15 [facility] Urine blood detectionOrdered By: Ej Luther on 08-01-2023 RBC Ql (U) 150 /ul Negative [facility] RBC Ql (U) 0 SEEN /hpf 0-5 [facility] Urine clarityOrdered By: Corazon Luther on 08-01-2023 Clarity (U) Clear Clear [facility] Urine color determinationOrd ered By: Ej Luther on 08-01-2023 Color (U) Yellow Yellow [facility] Urine glucose detectionOrder ed By: Ej Luther on 08-01-2023 Glucose Ql (U) Normal mg/dl Normal [facility] Urine leukocyte esterase det ection by dipstickOrdered By: Ej Luther on 08-01-2023 Leukocyte esterase Test strip Ql (U) Negative Negative [facility] Urine pHOrdered By: Ej donnelly on 08-01-2023 pH (U) 6.5 [pH] 5.0 - 8.0 [facility] Urine sediment bacteria coun t by microscopy (number/high power field)Ordered By: Ej Luther on 08-01-2023 Bacteria LM.HPF (Urine sed) [#/Area] 0 /[HPF] None Seen [facility] Urine specific gravity measu rementOrdered By: Ej Luther on 08-01-2023 Specific gravity (U) [Rel density] 1.010 1.002-1.030 [facility] Urobilinogen Auto test strip Ql (U)Ordered By: Ej Luther on 08-01-2023 Urobilinogen Ql (U) Normal mg/dl Normal [facility] Absolute lymphocyte countOrd ered By: Willy Webb on 06-14-2023 Lymphocytes Auto (Unsp spec) [#/Vol] 3.15 10*3/uL 0.83-4.51 [facility] Basophil percentageOrdered B y: Willy Webb on 06-14-2023 Basophils/100 WBC (Bld) 0.8 % 0-1 [facility] Chloride [Moles/Vol] 105 mmol/L 98-107 [facility] Eosinophils/100 WBC (Bld) 3.3 % 0-5 [facility] Glucose [Mass/Vol] 109 mg/dL 74-106 [facility] Comment on above: Fasting Glucose resu lt from 100 to 125 mg/dL suggests IMPAIRED HOMEOSTASIS per A.D.A. criteria. Lactate [Moles/Vol] 1.7 mmol/L 0.4-2.0 [facility] Neutrophils (Bld) [#/Vol] 5.8 10*3/uL 2.0-7.7 [facility] Neutrophils/100 WBC (Bld) 56.8 % 47-70 [facility] Potassium [Moles/Vol] 3.5 mmol/L 3.5-5.1 [facility] Comment on above: Slight Hemolysis, Re sult may be falsely increased. Sodium [Moles/Vol] 137 mmol/L 136-145 [facility] WBC (Bld) [#/Vol] 10.2 10*3/uL 4.4-11.0 [facility] Blood erythrocytes count (nu mber/volume)Ordered By: Willy Webb on 06-14-2023 RBC (Bld) [#/Vol] 4.16 10*6/uL 4.2-5.4 [facility] Blood hemoglobin measurement (mass/volume)Ordered By: Willy Webb on 06-14-2023 Hemoglobin (Bld) [Mass/Vol] 10.6 g/dL 12.0-15.0 [facility] Blood lymphocytes/100 leukoc ytesOrdered By: Willy Webb on 06-14-2023 Lymphocytes/100 WBC (Bld) 31.0 % 19-41 [facility] Blood monocytes/100 leukocyt esOrdered By: Willy Webb on 06-14-2023 Monocytes/100 WBC (Bld) 7.8 % 0-10 [facility] Blood platelet mean volumeOr dered By: Willy Webb on 06-14-2023 Platelet mean volume (Bld) [Entitic vol] 10.0 fL 6.2-12.0 [facility] Determination of erythrocyte mean corpuscular volume (MCV)Ordered By: Willy Webb on 06-14-2023 MCV (RBC) [Entitic vol] 84.9 fL 81-99 [facility] Hematocrit Auto (Bld) [Volum e fraction]Ordered By: Willy Webb on 06-14-2023 Hematocrit (Bld) [Volume fraction] 35.3 % 37-47 [facility] INR in Blood by Coagulation assayOrdered By: Willy Webb on 06-14-2023 INR Coag (Bld) [Relative time] 1.0 {INR} [facility] - Chemistry and C hemistry - challengeOrdered By: Willy Webb on 06-14-2023 CO2 [Moles/Vol] 27.0 mmol/L 21.0-32.0 [facility] Urea nitrogen/Creatinine [Mass ratio] 6.1 mg/mg 10-20 [facility] - CoagulationOrde red By: Willy Webb on 06-14-2023 aPTT Coag (Bld) [Time] 30.3 s 24.1-36.2 [facility] PT Coag (PPP) [Time] 13.0 s 11.7-14.9 [facility] - Hematology and Cell countsOrdered By: Willy Webb on 06-14-2023 Erythrocyte distribution width (RBC) [Entitic vol] 52.9 fL 35.1-43.9 [facility] Erythrocyte distribution width (RBC) [Ratio] 17.2 % 11.6-14.6 [facility] Immature granulocytes/100 WBC (Bld) 0.300 % 0.0-0.9 [facility] Comment on above: IG% - Immature Granu locytes (promyelocytes, myelocytes and metamyelocytes) > 1% indicates that a LEFT SHIFT is Present. MCH (RBC) [Entitic mass] 25.5 pg 27.0-32.0 [facility] Nucleated RBC/100 WBC (Bld) [Ratio] 0 % 0-5 [facility] Lower GI hemoglobin IA Ql (S tl)Ordered By: Willy Webb on 06-14-2023 Stool Occult Blood (MIRIAN) Positive [facility] MCHC Auto (RBC) [Mass/Vol]Or dered By: Willy Webb on 06-14-2023 MCHC (RBC) [Mass/Vol] 30.0 g/dL 32-36 [facility] No Panel InformationOrdered By: Willy Webb on 06-14-2023 Estimated Creatinine Clearance Calc 67.08 ml/min [facility] Estimated GFR (MDRD) Amer 95 mL/min >60 [facility] Comment on above: GFR Calc Estimated GFR (MDRD) Non-Af Amer 79 mL/min >60 [facility] Comment on above: Non- GFR Calc Platelets bldOrdered By: Nabil Webb on 06-14-2023 Platelets (Bld) [#/Vol] 438 10*3/uL 150-450 [facility] Serum or plasma calcium cornelio urement (mass/volume)Ordered By: Willy Webb on 06-14-2023 Calcium [Mass/Vol] 8.5 mg/dL 8.5-10.1 [facility] Serum or plasma creatinine m easurement (mass/volume)Ordered By: Willy Webb on 06-14-2023 Creatinine [Mass/Vol] 0.82 mg/dL 0.55-1.02 [facility] Comment on above: The validity of the calculated GFR & GFRAA in patients over 70 years has not been determined. Clinical correlation is essential. Serum or plasma urea nitroge n measurement (mass/volume)Ordered By: Willy Webb on 06-14-2023 Urea nitrogen [Mass/Vol] 5 mg/dL 7-18 [facility] Thin prep Papanicolaou smear with manual screeningOrdered By: Willy Webb on 06-14-2023 Thin prep Papanicolaou smear with manual screening 5 5-15 [facility] CASE MANAGEMon 11-29-2022 CASE MANAGEM HNO ID: [id number] Author: Divya Guzmán RN Service: ? Author [...] 29, 2022 TIME: 9:13 AM PAGER/CONTACT #: [phone] [facility] CONSULT PROGon 11-28-2022 CONSULT PROG HNO ID: [id number] Author: Anyi Bullock MD Service: Infectious Disease [...] reviewed Imaging data: reviewed Anyi Bullock MD [phone] 11/28/2022 4:32 PM [facility] CBC W Auto Differential pane l (Bld)on 11-27-2022 Basophils (Bld) [#/Vol] 0.12 10*3/uL High <0.11 [facility] Comment on above: Order Comment: Speci men Type: BLOOD SPECIMEN Ordering Facility: [facility] Address: [address] [place] [address] Performed By: #### 2 4323-8 #### [facility] CLIA [id number] [address] [place] [address] [place] Basophils/100 WBC (Bld) 1.2 % Normal [facility] Comment on above: Order Comment: Speci men Type: BLOOD SPECIMEN Ordering Facility: [facility] Address: [address] [address] Performed By: #### 2 4323-8 #### [facility] CLIA [id number] [address] [place] [address] [place] Differential cell count method Nom (Bld) Auto Normal [facility] Comment on above: Order Comment: Speci men Type: BLOOD SPECIMEN Ordering Facility: [facility] Address: [address] [place] [address] Performed By: #### 2 4323-8 #### [facility] CLIA [id number] [address] [place] [address] [place] Eosinophils (Bld) [#/Vol] 0.51 10*3/uL High <0.46 [facility] Comment on above: Order Comment: Speci men Type: BLOOD SPECIMEN Ordering Facility: [facility] Address: [address] [address] Performed By: #### 2 4323-8 #### [facility] CLIA [id number] [address] [place] [address] [place] Eosinophils/100 WBC (Bld) 5.2 % Normal [facility] Comment on above: Order Comment: Speci men Type: BLOOD SPECIMEN Ordering Facility: [facility] Address: [address] [place] [address] Performed By: #### 2 4323-8 #### [facility] CLIA [id number] [address] [place] [address] [place] Erythrocyte distribution width (RBC) [Ratio] 17.2 % High 11.5-15.0 [facility] Comment on above: Order Comment: Speci men Type: BLOOD SPECIMEN Ordering Facility: [facility] Address: [address] [place] [address] Performed By: #### 2 4323-8 #### [facility] CLIA [id number] [address] [place] Hematocrit (Bld) [Volume fraction] 30.7 % Low 36.0-46.0 [facility] Comment on above: Order Comment: Speci men Type: BLOOD SPECIMEN Ordering Facility: [facility] Address: [address] [address] Performed By: #### 2 4323-8 #### [facility] CLIA [id number] [address] [place] [address] [place] Hemoglobin (Bld) [Mass/Vol] 9.4 g/dL Low 11.5-15.5 [facility] Comment on above: Order Comment: Speci men Type: BLOOD SPECIMEN Ordering Facility: [facility] Address: [address] [address] Performed By: #### 2 4323-8 #### [facility] CLIA [id number] [address] [place] Immature granulocytes (Bld) [#/Vol] 0.05 10*3/uL Normal <0.10 [facility] Comment on above: Order Comment: Speci men Type: BLOOD SPECIMEN Ordering Facility: [facility] Address: [address] [address] Performed By: #### 2 4323-8 #### [facility] CLIA [id number] [address] [place] Immature granulocytes/100 WBC (Bld) 0.5 % Normal [facility] Comment on above: Order Comment: Speci men Type: BLOOD SPECIMEN Ordering Facility: [facility] Address: [address] [place] [address] Performed By: #### 2 4323-8 #### [facility] CLIA [id number] 1000 [place] [address] [facility] [place] Lymphocytes (Bld) [#/Vol] 3.63 10*3/uL Normal 1.00-4.00 [facility] Comment on above: Order Comment: Speci men Type: BLOOD SPECIMEN Ordering Facility: [facility] Address: [address] [place] [address] Performed By: #### 2 4323-8 #### [facility] CLIA [id number] [address] Lymphocytes/100 WBC (Bld) 37.2 % Normal [facility] Comment on above: Order Comment: Speci men Type: BLOOD SPECIMEN Ordering Facility: [facility] Address: [address] [address] Performed By: #### 2 4323-8 #### [facility] CLIA [id number] [address] MCH (RBC) [Entitic mass] 27.2 pg Normal 26.0-34.0 [facility] Comment on above: Order Comment: Speci men Type: BLOOD SPECIMEN Ordering Facility: [facility] Address: [address] [place] [address] Performed By: #### 2 4323-8 #### [facility] CLIA [id number] [address] MCHC (RBC) [Mass/Vol] 30.6 g/dL Normal 30.5-36.0 [facility] Comment on above: Order Comment: Speci men Type: BLOOD SPECIMEN Ordering Facility: [facility] Address: [address] [place] [address] Performed By: #### 2 4323-8 #### [facility] CLIA [id number] [address] MCV (RBC) [Entitic vol] 88.7 fL Normal 80.0-100.0 [facility] Comment on above: Order Comment: Speci men Type: BLOOD SPECIMEN Ordering Facility: [facility] Address: [address] [place] [address] Performed By: #### 2 4323-8 #### [facility] CLIA [id number] [address] [place] Monocytes (Bld) [#/Vol] 0.99 10*3/uL High <0.87 [facility] Comment on above: Order Comment: Speci men Type: BLOOD SPECIMEN Ordering Facility: [facility] Address: [address] [address] Performed By: #### 2 4323-8 #### [facility] CLIA [id number] [address] [place] [address] [place] Monocytes/100 WBC (Bld) 10.1 % Normal [facility] Comment on above: Order Comment: Speci men Type: BLOOD SPECIMEN Ordering Facility: [facility] Address: [address] [address] Performed By: #### 2 4323-8 #### [facility] CLIA [id number] [address] [place] [address] [place] Neutrophils (Bld) [#/Vol] 4.47 10*3/uL Normal 1.45-7.50 [facility] Comment on above: Order Comment: Speci men Type: BLOOD SPECIMEN Ordering Facility: [facility] Address: [address] [address] Performed By: #### 2 4323-8 #### [facility] CLIA [id number] [address] [place] [address] [place] Neutrophils/100 WBC (Bld) 45.8 % Normal [facility] Comment on above: Order Comment: Speci men Type: BLOOD SPECIMEN Ordering Facility: [facility] Address: [address] [address] Performed By: #### 2 4323-8 #### [facility] CLIA [id number] [address] [place] [address] [place] Nucleated RBC (Bld) [#/Vol] 10*3/uL Normal <0.01 [facility] Comment on above: Order Comment: Speci men Type: BLOOD SPECIMEN Ordering Facility: [facility] Address: [address] [address] Performed By: #### 2 4323-8 #### [facility] CLIA [id number] [address] [place] [address] [place] Nucleated RBC/100 WBC (Bld) [Ratio] 0.0 /100 WBC Normal [facility] Comment on above: Order Comment: Speci men Type: BLOOD SPECIMEN Ordering Facility: [facility] Address: [address] [address] Performed By: #### 2 4323-8 #### [facility] CLIA [id number] [address] [place] [address] [place] Platelet mean volume (Bld) [Entitic vol] 9.6 fL Normal 9.0-12.7 [facility] Comment on above: Order Comment: Speci men Type: BLOOD SPECIMEN Ordering Facility: [facility] Address: [address] [place] [address] Performed By: #### 2 4323-8 #### [facility] CLIA [id number] [address] [place] [address] [place] Platelets (Bld) [#/Vol] 477 10*3/uL High 150-400 [facility] Comment on above: Order Comment: Speci men Type: BLOOD SPECIMEN Ordering Facility: [facility] Address: [address] [address] Performed By: #### 2 4323-8 #### [facility] CLIA [id number] [address] [place] [address] [place] RBC (Bld) [#/Vol] 3.46 10*6/uL Low 3.90-5.[address] [facility] Comment on above: Order Comment: Speci men Type: BLOOD SPECIMEN Ordering Facility: [facility] Address: [address] [address] Performed By: #### 2 4323-8 #### [facility] CLIA [id number] [address] [place] [address] [place] WBC (Bld) [#/Vol] 9.77 10*3/uL Normal 3.70-11.[address] [facility] Comment on above: Order Comment: Speci men Type: BLOOD SPECIMEN Ordering Facility: [facility] Address: [address] [place] [address] Performed By: #### 2 4323-8 #### [facility] CLIA [id number] [address] [place] [address] [place] CONSULT PROGon 11-27-2022 CONSULT PROG HNO ID: [id number] Author: Nila Arango RPh Service: Pharmacy Author [...] have any questions, please contact pharmacy at [phone]. Age: [age] year old Allergies: ALLERGIES Allergen [...] Date/Time Value 11/27/2022 0446 11.4 Nila Arango [facility] CONSULT PROG HNO ID: [id number] Author: Anyi Bullock MD Service: Infectious Disease [...] reviewed Imaging data: reviewed Anyi Bullock MD [phone] 11/27/2022 2:36 PM Normal [facility] CONSULT PROG HNO ID: [id number] Author: Denise Mcdermott DO Service: Hospital Medicine Author Type: Physician Type: Consult Progress Note Filed: 12/01/2022 7:47 AM Note Text: DEPARTMENT OF HOSPITAL MEDICINE CONSULT PROGRESS NOTE SERVICE DATE: 11/27/2022 SERVICE TIME: 1:18 PM Primary Care Physician: Martinez Garcia MD NIGHT AND WEEKEND COVERAGE: [place] COVERAGE: Days: [phone], please page attending physician. Nights: [phone], please page [place] [facility] Night coverage pager [phone]. Subjective INTERVAL HPI: feels well today. Still [...] 27, 2022 TIME: seen in am etx [id number] [facility] CONSULT PROG HNO ID: [id number] Author: Gloria Perez RPh Service: Pharmacy Author [...] have any questions, please contact pharmacy at [phone]. Age: [age] year old Allergies: ALLERGIES Allergen [...] Date/Time Value 11/27/2022 0446 11.4 Gloria Perez [facility] Normal [facility] Comprehensive metabolic 2000 panelon 11-27-2022 Albumin [Mass/Vol] 3.5 g/dL Low 3.9-4.9 [facility] Comment on above: Order Comment: Speci men Type: BLOOD SPECIMEN Ordering Facility: [facility] Address: [address] [place] [id number] Performed By: #### 2 4323-8 #### [facility] CLIA [id number] [address] [place] [address] [place] ALP [Catalytic activity/Vol] 101 U/L Normal 34-123 [facility] Comment on above: Order Comment: Speci men Type: BLOOD SPECIMEN Ordering Facility: [facility] Address: [address] [place] [address] Performed By: #### 2 4323-8 #### [facility] CLIA [id number] [address] [place] [address] [place] ALT [Catalytic activity/Vol] 5 U/L Low 7-38 [facility] Comment on above: Order Comment: Speci men Type: BLOOD SPECIMEN Ordering Facility: [facility] Address: [address] [place] [address] Performed By: #### 2 4323-8 #### [facility] CLIA [id number] [address] [place] [address] [place] Anion gap [Moles/Vol] 7 mmol/L Low 9-18 [facility] Comment on above: Order Comment: Speci men Type: BLOOD SPECIMEN Ordering Facility: [facility] Address: [address] [place] [address] Performed By: #### 2 4323-8 #### [facility] CLIA [id number] [address] [place] AST [Catalytic activity/Vol] 7 U/L Low 13-35 [facility] Comment on above: Order Comment: Speci men Type: BLOOD SPECIMEN Ordering Facility: [facility] Address: [address] [place] [address] Performed By: #### 2 4323-8 #### [facility] CLIA [id number] [address] [place] [address] [place] Bilirubin [Mass/Vol] mg/dL Low 0.2-1.3 [facility] Comment on above: Order Comment: Speci men Type: BLOOD SPECIMEN Ordering Facility: [facility] Address: [address] [place] [address] Performed By: #### 2 4323-8 #### [facility] CLIA [id number] [address] [place] [address] [place] Calcium [Mass/Vol] 9.0 mg/dL Normal 8.5-10.2 [facility] Comment on above: Order Comment: Speci men Type: BLOOD SPECIMEN Ordering Facility: [facility] Address: [address] [place] [address] Performed By: #### 2 4323-8 #### [facility] CLIA [id number] [address] [place] Chloride [Moles/Vol] 104 mmol/L Normal 97-105 [facility] Comment on above: Order Comment: Speci men Type: BLOOD SPECIMEN Ordering Facility: [facility] Address: [address] [place] [address] Performed By: #### 2 4323-8 #### [facility] CLIA [id number] [address] [place] CO2 [Moles/Vol] 28 mmol/L Normal 22-30 [facility] Comment on above: Order Comment: Speci men Type: BLOOD SPECIMEN Ordering Facility: [facility] Address: [address] [place] [address] Performed By: #### 2 4323-8 #### [facility] CLIA [id number] [address] [place] Creatinine [Mass/Vol] 0.88 mg/dL Normal 0.58-0.96 [facility] Comment on above: Order Comment: Speci men Type: BLOOD SPECIMEN Ordering Facility: [facility] Address: [address] [place] [address] Performed By: #### 2 4323-8 #### [facility] CLIA [id number] [address] OF [facility] ESTIMATED GLOMERULAR FILTRATION RATE 82 mL/min/1.73m??? Normal >=60 [facility] Comment on above: Order Comment: Speci men Type: BLOOD SPECIMEN Ordering Facility: [facility] Address: [address] [place] [address] Result Comment: Betty mated Glomerular Filtration Rate [...] GFR. Performed By: #### 2 4323-8 #### [facility] CLIA [id number] [address] [place] [address] [place] Glucose [Mass/Vol] 94 mg/dL Normal 74-99 [facility] Comment on above: Order Comment: Samson morrow Type: BLOOD SPECIMEN Ordering Facility: [facility] Address: [address] [place] [address] Result Comment: The [place] [employer] (ADA) provides guidance for cutoff [...] Standards of Medical Care in Diabetes 2016, [place] [employer]. Diabetes Care. 2016.39(Suppl 1). Performed By: #### 2 4323-8 #### [facility] CLIA [id number] [address] [place] [address] [place] Potassium [Moles/Vol] 3.5 mmol/L Low 3.7-5.1 [facility] Comment on above: Order Comment: Samson morrow Type: BLOOD SPECIMEN Ordering Facility: [facility] Address: [address] [address] Performed By: #### 2 4323-8 #### [facility] CLIA [id number] [address] [place] [address] [place] Protein [Mass/Vol] 5.9 g/dL Low 6.3-8.0 [facility] Comment on above: Order Comment: Samson morrow Type: BLOOD SPECIMEN Ordering Facility: [facility] Address: [address] [place] [address] Performed By: #### 2 4323-8 #### [facility] CLIA [id number] [address] [place] [facility] Sodium [Moles/Vol] 139 mmol/L Normal 136-144 [facility] Comment on above: Order Comment: Speci men Type: BLOOD SPECIMEN Ordering Facility: [facility] Address: [address] [address] Performed By: #### 2 4323-8 #### [facility] CLIA [id number] [address] STATES OF [facility] Urea nitrogen [Mass/Vol] 16 mg/dL Normal 7- [facility] Comment on above: Order Comment: Speci men Type: BLOOD SPECIMEN Ordering Facility: [facility] Address: [address] [place] [address] Performed By: #### 2 4323-8 #### [facility] CLIA [id number] [address] Vancomycin [place] SerPl-mCncon 11-27-2022 Vancomycin random [Mass/Vol] 11.4 ug/mL Normal 10.0-20.0 [facility] Comment on above: Order Comment: Speci men Type: BLOOD SPECIMEN Ordering Facility: [facility] Address: [address] [place] [address] Result Comment: Refe rence ranges and high/low indicator flags are provided as general guidelines only. The treating physician must determine appropriate target levels/dosing based on the specific clinical situation. Performed By: #### 2 4323-8 #### [facility] CLIA [id number] [address] CBC W Auto Differential pane l (Bld)on 11-26-2022 Basophils (Bld) [#/Vol] 0.10 10*3/uL Normal <0.11 [facility] Comment on above: Order Comment: Speci men Type: BLOOD SPECIMEN Ordering Facility: [facility] Address: [address] [place] [address] Performed By: #### 2 4323-8 #### [facility] CLIA [id number] [address] Basophils/100 WBC (Bld) 0.9 % Normal [facility] Comment on above: Order Comment: Speci men Type: BLOOD SPECIMEN Ordering Facility: [facility] Address: [address] [place] [address] Performed By: #### 2 4323-8 #### [facility] CLIA [id number] [address] [place] Differential cell count method Nom (Bld) Auto Normal [facility] Comment on above: Order Comment: Speci men Type: BLOOD SPECIMEN Ordering Facility: [facility] Address: [address] [place] [address] Performed By: #### 2 3-8 #### [facility] CLIA [id number] [address] [place] Eosinophils (Bld) [#/Vol] 0.42 10*3/uL Normal <0.46 [facility] Comment on above: Order Comment: Speci men Type: BLOOD SPECIMEN Ordering Facility: [facility] Address: [address] [place] [address] Performed By: #### 2 3-8 #### [facility] CLIA [id number] [address] Eosinophils/100 WBC (Bld) 3.8 % Normal [facility] Comment on above: Order Comment: Speci men Type: BLOOD SPECIMEN Ordering Facility: [facility] Address: [address] [place] [address] Performed By: #### 2 4323-8 #### [facility] CLIA [id number] [address] Erythrocyte distribution width (RBC) [Ratio] 17.4 % High 11.5-15.0 [facility] Comment on above: Order Comment: Speci men Type: BLOOD SPECIMEN Ordering Facility: [facility] Address: [address] [place] [address] Performed By: #### 2 4323-8 #### [facility] CLIA [id number] [address] [place] Hematocrit (Bld) [Volume fraction] 30.9 % Low 36.0-46.0 [facility] Comment on above: Order Comment: Speci men Type: BLOOD SPECIMEN Ordering Facility: [facility] Address: [address] [place] [address] Performed By: #### 2 4323-8 #### [facility] CLIA [id number] [address] [place] Hemoglobin (Bld) [Mass/Vol] 9.6 g/dL Low 11.5-15.5 [facility] Comment on above: Order Comment: Speci men Type: BLOOD SPECIMEN Ordering Facility: [facility] Address: [address] [place] [address] Performed By: #### 2 4323-8 #### [facility] CLIA [id number] [address] [place] Immature granulocytes (Bld) [#/Vol] 0.06 10*3/uL Normal <0.10 [facility] Comment on above: Order Comment: Speci men Type: BLOOD SPECIMEN Ordering Facility: [facility] Address: [address] [place] [address] Performed By: #### 2 4323-8 #### [facility] CLIA [id number] [address] Immature granulocytes/100 WBC (Bld) 0.5 % Normal [facility] Comment on above: Order Comment: Speci men Type: BLOOD SPECIMEN Ordering Facility: [facility] Address: [address] [place] [address] Performed By: #### 2 4323-8 #### [facility] CLIA [id number] [address] [place] Lymphocytes (Bld) [#/Vol] 3.79 10*3/uL Normal 1.00-4.00 [facility] Comment on above: Order Comment: Speci men Type: BLOOD SPECIMEN Ordering Facility: [facility] Address: [address] [place] [address] Performed By: #### 2 4323-8 #### [facility] CLIA [id number] [address] [place] Lymphocytes/100 WBC (Bld) 34.3 % Normal [facility] Comment on above: Order Comment: Speci men Type: BLOOD SPECIMEN Ordering Facility: [facility] Address: [address] [place] [address] Performed By: #### 2 4323-8 #### [facility] CLIA [id number] [address] MCH (RBC) [Entitic mass] 27.3 pg Normal 26.0-34.0 [facility] Comment on above: Order Comment: Speci men Type: BLOOD SPECIMEN Ordering Facility: [facility] Address: [address] [address] Performed By: #### 2 3-8 #### [facility] CLIA [id number] [address] MCHC (RBC) [Mass/Vol] 31.1 g/dL Normal 30.5-36.0 [facility] Comment on above: Order Comment: Speci men Type: BLOOD SPECIMEN Ordering Facility: [facility] Address: [address] [address] Performed By: #### 2 3-8 #### [facility] CLIA [id number] [address] MCV (RBC) [Entitic vol] 87.8 fL Normal 80.0-100.0 [facility] Comment on above: Order Comment: Speci men Type: BLOOD SPECIMEN Ordering Facility: [facility] Address: [address] [address] Performed By: #### 2 4322-8 #### [facility] CLIA [id number] [address] Monocytes (Bld) [#/Vol] 1.16 10*3/uL High <0.87 [facility] Comment on above: Order Comment: Speci men Type: BLOOD SPECIMEN Ordering Facility: [facility] Address: [address] [address] Performed By: #### 2 4323-8 #### [facility] CLIA [id number] [address] Monocytes/100 WBC (Bld) 10.5 % Normal [facility] Comment on above: Order Comment: Speci men Type: BLOOD SPECIMEN Ordering Facility: [facility] Address: [address] [address] Performed By: #### 2 4323-8 #### [facility] CLIA [id number] [address] [place] Neutrophils (Bld) [#/Vol] 5.51 10*3/uL Normal 1.45-7.50 [facility] Comment on above: Order Comment: Speci men Type: BLOOD SPECIMEN Ordering Facility: [facility] Address: [address] [address] Performed By: #### 2 432-8 #### [facility] CLIA [id number] [address] Neutrophils/100 WBC (Bld) 50.0 % Normal [facility] Comment on above: Order Comment: Speci men Type: BLOOD SPECIMEN Ordering Facility: [facility] Address: [address] [address] Performed By: #### 2 4323-8 #### [facility] CLIA [id number] [address] [place] Nucleated RBC (Bld) [#/Vol] 10*3/uL Normal <0.01 [facility] Comment on above: Order Comment: Speci men Type: BLOOD SPECIMEN Ordering Facility: [facility] Address: [address] [address] Performed By: #### 2 4323-8 #### [facility] CLIA [id number] [address] Nucleated RBC/100 WBC (Bld) [Ratio] 0.0 /100 WBC Normal [facility] Comment on above: Order Comment: Speci men Type: BLOOD SPECIMEN Ordering Facility: [facility] Address: [address] [address] Performed By: #### 2 4323-8 #### [facility] CLIA [id number] [address] [place] Platelet mean volume (Bld) [Entitic vol] 9.7 fL Normal 9.0-12.7 [facility] Comment on above: Order Comment: Samson morrow Type: BLOOD SPECIMEN Ordering Facility: [facility] Address: [address] [place] [address] Performed By: #### 2 4323-8 #### [facility] CLIA [id number] [address] [place] Platelets (Bld) [#/Vol] 441 10*3/uL High 150-400 [facility] Comment on above: Order Comment: Samson morrow Type: BLOOD SPECIMEN Ordering Facility: [facility] Address: [address] [place] [address] Performed By: #### 2 4323-8 #### [facility] CLIA [id number] [address] RBC (Bld) [#/Vol] 3.52 10*6/uL Low 3.90-5.[address] [facility] Comment on above: Order Comment: Samson morrow Type: BLOOD SPECIMEN Ordering Facility: [facility] Address: [address] [place] [address] Performed By: #### 2 4323-8 #### [facility] CLIA [id number] [address] WBC (Bld) [#/Vol] 11.04 10*3/uL High 3.70-11.00 [facility] Comment on above: Order Comment: Samson morrow Type: BLOOD SPECIMEN Ordering Facility: [facility] Address: [address] [place] [address] Performed By: #### 2 4323-8 #### [facility] CLIA [id number] [address] CNDSon 11-26-2022 CNDS HNO ID: [id number] Author: Sherif Lu PA-C Service: Orthopaedic Surgery Author Type: Physician Tracer Bullet Section Supervisor Type: Discharge Summary Filed: 11/29/2022 7:38 AM [...] These instructions explain what you or your child care sitter need to do to continue your care at home or at another healthcare facility Please go over these instructions with your nurse and child care sitter. If you are not sure about something, [...] incision site. If (more content not included)... [facility] CONSULT PROGon 11-26-2022 CONSULT PROG HNO ID: [id number] Author: Ismael Ambrose RPh Service: Pharmacy Author [...] have any questions, please contact pharmacy at [phone]. Age: [age] year old Allergies: ALLERGIES Allergen [...] Levels: No results found for: KELLY Ambrose [facility] CONSULT PROG HNO ID: [id number] Author: Conchis Thomas DO Service: Hospital Medicine Author Type: Physician Type: Consult Progress Note Filed: 11/26/2022 11:06 AM Note Text: DEPARTMENT OF HOSPITAL MEDICINE CONSULT PROGRESS NOTE SERVICE DATE: 11/26/2022 SERVICE TIME: 11:02 AM Primary Care Physician: Martinez Garcia MD NIGHT AND WEEKEND COVERAGE: [place] COVERAGE: Days: [phone], please page attending physician. Nights: [phone], please page [facility] Night coverage pager [phone]. Subjective INTERVAL HPI: Patient states she had [...] from lower ex (more content not included)... [facility] CONSULT PROG HNO ID: [id number] Author: Anyi Bullock MD Service: Infectious Disease [...] Wt 66.9 kg (147 lb 7.8 oz) [facility] 11/07/2021 SpO2 97% BMI 26.13 kg/m? Temp [...] final until Authenticated by responsible provider. Normal [facility] Comprehensive metabolic 2000 panelon 11-26-2022 Albumin [Mass/Vol] 3.3 g/dL Low 3.9-4.9 [facility] Comment on above: Order Comment: Speci men Type: BLOOD SPECIMEN Ordering Facility: [facility] Address: [address] [place] [address] Performed By: #### 2 4323-8 #### [facility] CLIA [id number] [address] ALP [Catalytic activity/Vol] 95 U/L Normal 34-123 [facility] Comment on above: Order Comment: Speci men Type: BLOOD SPECIMEN Ordering Facility: [facility] Address: [address] [place] [address] Performed By: #### 2 4323-8 #### [facility] CLIA [id number] [address] ALT [Catalytic activity/Vol] 6 U/L Low 7-38 [facility] Comment on above: Order Comment: Speci men Type: BLOOD SPECIMEN Ordering Facility: [facility] Address: [address] [place] [address] Performed By: #### 2 4323-8 #### [facility] CLIA [id number] [address] Anion gap [Moles/Vol] 9 mmol/L Normal 9-18 [facility] Comment on above: Order Comment: Speci men Type: BLOOD SPECIMEN Ordering Facility: [facility] Address: [address] [address] Performed By: #### 2 4323-8 #### [facility] CLIA [id number] [address] [place] AST [Catalytic activity/Vol] 8 U/L Low 13-35 [facility] Comment on above: Order Comment: Speci men Type: BLOOD SPECIMEN Ordering Facility: [facility] Address: [address] [address] Performed By: #### 2 4323-8 #### [facility] CLIA [id number] [address] [place] [address] [place] Bilirubin [Mass/Vol] mg/dL Low 0.2-1.3 [facility] Comment on above: Order Comment: Speci men Type: BLOOD SPECIMEN Ordering Facility: [facility] Address: [address] [place] [address] Performed By: #### 2 4323-8 #### [facility] CLIA [id number] [address] [place] [address] [place] Calcium [Mass/Vol] 8.9 mg/dL Normal 8.5-10.2 [facility] Comment on above: Order Comment: Speci men Type: BLOOD SPECIMEN Ordering Facility: [facility] Address: [address] [place] [address] Performed By: #### 2 4323-8 #### [facility] CLIA [id number] [address] [place] [address] [place] Chloride [Moles/Vol] 105 mmol/L Normal 97-105 [facility] Comment on above: Order Comment: Speci men Type: BLOOD SPECIMEN Ordering Facility: [facility] Address: [address] [address] Performed By: #### 2 4323-8 #### [facility] CLIA [id number] [address] [place] [address] [place] CO2 [Moles/Vol] 25 mmol/L Normal 22-30 [facility] Comment on above: Order Comment: Speci men Type: BLOOD SPECIMEN Ordering Facility: [facility] Address: [address] [address] Performed By: #### 2 4323-8 #### [facility] CLIA [id number] [address] STATES OF [facility] Creatinine [Mass/Vol] 0.69 mg/dL Normal 0.58-0.96 [facility] Comment on above: Order Comment: Samson morrow Type: BLOOD SPECIMEN Ordering Facility: [facility] Address: [address] [address] Performed By: #### 2 4323-8 #### [facility] CLIA [id number] [address] [place] ESTIMATED GLOMERULAR FILTRATION RATE 109 mL/min/1.73m??? Normal >=60 [facility] Comment on above: Order Comment: Samson morrow Type: BLOOD SPECIMEN Ordering Facility: [facility] Address: [address] [place] [address] Result Comment: Betty mated Glomerular Filtration Rate [...] GFR. Performed By: #### 2 4323-8 #### [facility] CLIA [id number] [address] [place] Glucose [Mass/Vol] 103 mg/dL High 74-99 [facility] Comment on above: Order Comment: Samson morrow Type: BLOOD SPECIMEN Ordering Facility: [facility] Address: [address] [address] Result Comment: The [place] Diabetes [employer] (ADA) provides guidance for cutoff [...] Standards of Medical Care in Diabetes 2016, [place] [employer]. Diabetes Care. 2016.39(Suppl 1). Performed By: #### 2 4323-8 #### [facility] CLIA [id number] [address] [place] [address] [place] Potassium [Moles/Vol] 3.2 mmol/L Low 3.7-5.1 [facility] Comment on above: Order Comment: Speci men Type: BLOOD SPECIMEN Ordering Facility: [facility] Address: [address] [address] Performed By: #### 2 4323-8 #### [facility] CLIA [id number] [address] [place] Protein [Mass/Vol] 5.7 g/dL Low 6.3-8.0 [facility] Comment on above: Order Comment: Speci men Type: BLOOD SPECIMEN Ordering Facility: [facility] Address: [address] [address] Performed By: #### 2 4323-8 #### [facility] CLIA [id number] [address] STATES [facility] Sodium [Moles/Vol] 139 mmol/L Normal 136-144 [facility] Comment on above: Order Comment: Speci men Type: BLOOD SPECIMEN Ordering Facility: [facility] Address: [address] [address] Performed By: #### 2 4323-8 #### [facility] CLIA [id number] [address] [place] [address] [place] Urea nitrogen [Mass/Vol] 13 mg/dL Normal 7-21 [facility] Comment on above: Order Comment: Speci men Type: BLOOD SPECIMEN Ordering Facility: [facility] Address: [address] [address] Performed By: #### 2 4323-8 #### [facility] CLIA [id number] [address] [place] [address] [place] CASE MGT INIT ASSESon 2022 CASE MGT INIT ASSES HNO ID: [id number] Author: Macy Laguerre RN Service: ? Author Type: Registered Nurse Type: Care Mgt Initial Assessment Filed: 11/25/2022 9:28 AM Note Text: CARE MANAGEMENT: ASSESSMENT AND DISCHARGE PLAN SERVICE DATE: November 25, 2022 SERVICE TIME: 9:27 AM PRIMARY CARE PHYSICIAN: Martinez Garcia MD Primary Contact: Extended Emergency Contact Information Primary Emergency Contact: Caitlyn Alexander Address: [address] [place] [address] Relation: Mother ADMISSION STATUS: Observation Insurance Provider: [facility] MEDICAID NEEDS PRIOR TO DISCHARGE Needs Prior to Discharge: To Be Determined POTENTIAL TRANSITION PLANS To Be Determined Patient's perception of need for this admission: Elective surgery ADVANCE DIRECTIVES Current Advance Directive: None 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 Thank you. SIGNATURE: Macy Laguerre RN PATIENT NAME: Bev Gerardo Call DATE: November 25, 2022 TIME: 9:27 AM CONTACT #: [phone] Normal [facility] CBC W Auto Differential pane l (Bld)on 11-25-2022 Basophils (Bld) [#/Vol] 0.03 10*3/uL Normal <0.11 [facility] Comment on above: Order Comment: Speci men Type: BLOOD SPECIMEN Ordering Facility: [facility] Address: [address] [address] Performed By: #### 5 7021-8 #### [facility] CLIA [id number] [address] [place] [address] [place] Basophils/100 WBC (Bld) 0.2 % Normal [facility] Comment on above: Order Comment: Speci men Type: BLOOD SPECIMEN Ordering Facility: [facility] Address: [address] [address] Performed By: #### 5 7021-8 #### [facility] CLIA [id number] [address] [place] [address] [place] Differential cell count method Nom (Bld) Auto [facility] Comment on above: Order Comment: Speci men Type: BLOOD SPECIMEN Ordering Facility: [facility] Address: [address] [place] [address] Performed By: #### 5 7021-8 #### [facility] CLIA [id number] [address] [place] [address] [place] Eosinophils (Bld) [#/Vol] 10*3/uL Normal <0.46 [facility] Comment on above: Order Comment: Speci men Type: BLOOD SPECIMEN Ordering Facility: [facility] Address: [address] [place] [address] Performed By: #### 5 7021-8 #### [facility] CLIA [id number] [address] [place] Eosinophils/100 WBC (Bld) 0.0 % Normal [facility] Comment on above: Order Comment: Speci men Type: BLOOD SPECIMEN Ordering Facility: [facility] Address: [address] [place] [address] Performed By: #### 5 7021-8 #### [facility] CLIA [id number] [address] [place] Erythrocyte distribution width (RBC) [Ratio] 17.2 % High 11.5-15.0 [facility] Comment on above: Order Comment: Speci men Type: BLOOD SPECIMEN Ordering Facility: [facility] Address: [address] [place] [address] Performed By: #### 5 7021-8 #### [facility] CLIA [id number] [address] [place] Hematocrit (Bld) [Volume fraction] 33.0 % Low 36.0-46.0 [facility] Comment on above: Order Comment: Speci men Type: BLOOD SPECIMEN Ordering Facility: [facility] Address: [address] [place] [address] Performed By: #### 5 7021-8 #### [facility] CLIA [id number] [address] [place] [address] [place] Hemoglobin (Bld) [Mass/Vol] 10.1 g/dL Low 11.5-15.5 [facility] Comment on above: Order Comment: Speci men Type: BLOOD SPECIMEN Ordering Facility: [facility] Address: [address] [place] [address] Performed By: #### 5 7021-8 #### [facility] CLIA [id number] [address] [place] [address] [place] Immature granulocytes (Bld) [#/Vol] 0.04 10*3/uL Normal <0.10 [facility] Comment on above: Order Comment: Speci men Type: BLOOD SPECIMEN Ordering Facility: [facility] Address: [address] [place] [address] Performed By: #### 5 7021-8 #### [facility] CLIA [id number] [address] [place] Immature granulocytes/100 WBC (Bld) 0.3 % Normal [facility] Comment on above: Order Comment: Speci men Type: BLOOD SPECIMEN Ordering Facility: [facility] Address: [address] [place] [address] Performed By: #### 5 7021-8 #### [facility] CLIA [id number] [address] [place] Lymphocytes (Bld) [#/Vol] 1.13 10*3/uL Normal 1.00-4.00 [facility] Comment on above: Order Comment: Speci men Type: BLOOD SPECIMEN Ordering Facility: [facility] Address: [address] [address] Performed By: #### 5 7021-8 #### [facility] CLIA [id number] [address] Lymphocytes/100 WBC (Bld) 9.1 % Normal [facility] Comment on above: Order Comment: Speci men Type: BLOOD SPECIMEN Ordering Facility: [facility] Address: [address] [address] Performed By: #### 5 7021-8 #### [facility] CLIA [id number] [address] MCH (RBC) [Entitic mass] 26.5 pg Normal 26.0-34.0 [facility] Comment on above: Order Comment: Speci men Type: BLOOD SPECIMEN Ordering Facility: [facility] Address: [address] [place] [address] Performed By: #### 5 7021-8 #### [facility] CLIA [id number] [address] MCHC (RBC) [Mass/Vol] 30.6 g/dL Normal 30.5-36.0 [facility] Comment on above: Order Comment: Speci men Type: BLOOD SPECIMEN Ordering Facility: [facility] Address: [address] [address] Performed By: #### 5 7021-8 #### [facility] CLIA [id number] [address] MCV (RBC) [Entitic vol] 86.6 fL Normal 80.0-100.0 [facility] Comment on above: Order Comment: Speci men Type: BLOOD SPECIMEN Ordering Facility: [facility] Address: [address] [place] [address] Performed By: #### 5 7021-8 #### [facility] CLIA [id number] [address] Monocytes (Bld) [#/Vol] 0.40 10*3/uL Normal <0.87 [facility] Comment on above: Order Comment: Speci men Type: BLOOD SPECIMEN Ordering Facility: [facility] Address: [address] [address] Performed By: #### 5 7021-8 #### [facility] CLIA [id number] [address] [place] Monocytes/100 WBC (Bld) 3.2 % Normal [facility] Comment on above: Order Comment: Speci men Type: BLOOD SPECIMEN Ordering Facility: [facility] Address: [address] [address] Performed By: #### 5 7021-8 #### [facility] CLIA [id number] [address] [place] Neutrophils (Bld) [#/Vol] 10.87 10*3/uL High 1.45-7.50 [facility] Comment on above: Order Comment: Speci men Type: BLOOD SPECIMEN Ordering Facility: [facility] Address: [address] [address] Performed By: #### 5 7021-8 #### [facility] CLIA [id number] [address] [place] Neutrophils/100 WBC (Bld) 87.2 % Normal [facility] Comment on above: Order Comment: Speci men Type: BLOOD SPECIMEN Ordering Facility: [facility] Address: [address] [address] Performed By: #### 5 7021-8 #### [facility] CLIA [id number] [address] [place] [address] [place] Nucleated RBC (Bld) [#/Vol] 10*3/uL Normal <0.01 [facility] Comment on above: Order Comment: Speci men Type: BLOOD SPECIMEN Ordering Facility: [facility] Address: [address] [address] Performed By: #### 5 7021-8 #### [facility] CLIA [id number] [address] [place] Nucleated RBC/100 WBC (Bld) [Ratio] 0.0 /100 WBC Normal [facility] Comment on above: Order Comment: Speci men Type: BLOOD SPECIMEN Ordering Facility: [facility] Address: [address] [address] Performed By: #### 5 7021-8 #### [facility] CLIA [id number] [address] [place] Platelet mean volume (Bld) [Entitic vol] 9.7 fL Normal 9.0-12.7 [facility] Comment on above: Order Comment: Speci men Type: BLOOD SPECIMEN Ordering Facility: [facility] Address: [address] [address] Performed By: #### 5 7021-8 #### [facility] CLIA [id number] [address] [place] [address] [place] Platelets (Bld) [#/Vol] 474 10*3/uL High 150-400 [facility] Comment on above: Order Comment: Speci men Type: BLOOD SPECIMEN Ordering Facility: [facility] Address: [address] [place] [address] Performed By: #### 5 7021-8 #### [facility] CLIA [id number] [address] [place] [address] [place] RBC (Bld) [#/Vol] 3.81 10*6/uL Low 3.90-5.[address] [facility] Comment on above: Order Comment: Speci men Type: BLOOD SPECIMEN Ordering Facility: [facility] Address: [address] [address] Performed By: #### 5 7021-8 #### [facility] CLIA [id number] [address] [place] [address] [place] WBC (Bld) [#/Vol] 12.47 10*3/uL High 3.70-11.00 [facility] Comment on above: Order Comment: Speci men Type: BLOOD SPECIMEN Ordering Facility: [facility] Address: [address] [place] [address] Performed By: #### 5 7021-8 #### [facility] CLIA [id number] [address] [place] CONSULTon 11-25-2022 CONSULT HNO ID: [id number] Author: Anyi Bullock MD Service: Infectious Disease [...] 0.2 m (more content not included)... Normal [facility] CONSULT HNO ID: [id number] Author: Harrison Edwards DO Service: Hospital Medicine Author Type: Physician Type: Consults Filed: 11/25/2022 12:23 AM Note Text: DEPARTMENT OF HOSPITAL MEDICINE INITIAL CONSULT SERVICE DATE: 11/25/2022 SERVICE TIME: 12:20 AM Primary Care Physician: Martinez Garcia MD NIGHT AND WEEKEND COVERAGE: [facility]: Days: [phone], please page attending physician. Nights: [phone], please page [facility] Night coverage pager [phone]. REASON FOR CONSULT: Post-Op Management REQUESTING PHYSICIAN: [...] patient been tested for COVID-19 outside of [facility]? No PAST MEDICAL HISTORY Diagnosis Date Abnormal [...] enteric coated (more content not included)... Normal [facility] CONSULT PROGon 11-25-2022 CONSULT PROG HNO ID: [id number] Author: Conchis Thomas DO Service: Hospital Medicine Author Type: Physician Type: Consult Progress Note Filed: 11/25/2022 10:33 AM Note Text: DEPARTMENT OF HOSPITAL MEDICINE CONSULT PROGRESS NOTE SERVICE DATE: 11/25/2022 SERVICE TIME: 10:16 AM Primary Care Physician: Martinez Garcia MD NIGHT AND WEEKEND COVERAGE: [facility]: Days: [phone], please page attending physician. Nights: [phone], please page [facility] Night coverage pager [phone]. Subjective INTERVAL HPI: Patient states she had [...] from lower extrem (more content not included)... [facility] CONSULT PROG HNO ID: [id number] Author: Kimberly Montaño RPh Service: Pharmacy Author Type: Pharmacist Type: [...] have any questions, please contact pharmacy at [phone]. Age: [age] year old Allergies: ALLERGIES Allergen [...] Levels: No results found for: KELLY Montaño [facility] Normal [facility] Comprehensive metabolic 2000 panelon 11-25-2022 Albumin [Mass/Vol] 3.6 g/dL Low 3.9-4.9 [facility] Comment on above: Order Comment: Speci men Type: BLOOD SPECIMEN Ordering Facility: [facility] Address: [address] [address] Performed By: #### 2 4323-8 #### [facility] CLIA [id number] [address] ALP [Catalytic activity/Vol] 97 U/L Normal 34-123 [facility] Comment on above: Order Comment: Speci men Type: BLOOD SPECIMEN Ordering Facility: [facility] Address: [address] [address] Performed By: #### 2 4323-8 #### [facility] CLIA [id number] [address] ALT [Catalytic activity/Vol] 6 U/L Low 7-38 [facility] Comment on above: Order Comment: Speci men Type: BLOOD SPECIMEN Ordering Facility: [facility] Address: [address] [place] [address] Performed By: #### 2 4323-8 #### [facility] CLIA [id number] [address] STATES OF [facility] Anion gap [Moles/Vol] 9 mmol/L Normal 9-18 [facility] Comment on above: Order Comment: Speci men Type: BLOOD SPECIMEN Ordering Facility: [facility] Address: [address] [address] Performed By: #### 2 4323-8 #### [facility] CLIA [id number] [address] [place] AST [Catalytic activity/Vol] 14 U/L Normal 13-35 [facility] Comment on above: Order Comment: Speci men Type: BLOOD SPECIMEN Ordering Facility: [facility] Address: [address] [place] [address] Performed By: #### 2 4323-8 #### [facility] CLIA [id number] [address] [place] [address] [place] Bilirubin [Mass/Vol] 0.2 mg/dL Normal 0.2-1.3 [facility] Comment on above: Order Comment: Speci men Type: BLOOD SPECIMEN Ordering Facility: [facility] Address: [address] [place] [address] Performed By: #### 2 4323-8 #### [facility] CLIA [id number] [address] STATES OF [facility] Calcium [Mass/Vol] 8.9 mg/dL Normal 8.5-10.2 [facility] Comment on above: Order Comment: Speci men Type: BLOOD SPECIMEN Ordering Facility: [facility] Address: [address] [place] [address] Performed By: #### 2 4323-8 #### [facility] CLIA [id number] [address] [place] Chloride [Moles/Vol] 101 mmol/L Normal 97-105 [facility] Comment on above: Order Comment: Samson morrow Type: BLOOD SPECIMEN Ordering Facility: [facility] Address: [address] [place] [address] Performed By: #### 2 4323-8 #### [facility] CLIA [id number] [address] [place] [address] [place] CO2 [Moles/Vol] 24 mmol/L Normal 22-30 [facility] Comment on above: Order Comment: Tarani men Type: BLOOD SPECIMEN Ordering Facility: [facility] Address: [address] [place] [address] Performed By: #### 2 4323-8 #### [facility] CLIA [id number] [address] [place] Creatinine [Mass/Vol] 0.62 mg/dL Normal 0.58-0.96 [facility] Comment on above: Order Comment: Samson men Type: BLOOD SPECIMEN Ordering Facility: [facility] Address: [address] [place] [address] Performed By: #### 2 4323-8 #### [facility] CLIA [id number] [address] [place] ESTIMATED GLOMERULAR FILTRATION RATE 111 mL/min/1.73m??? Normal >=60 [facility] Comment on above: Order Comment: Samson morrow Type: BLOOD SPECIMEN Ordering Facility: [facility] Address: [address] [place] [address] Result Comment: Betty mated Glomerular Filtration Rate [...] GFR. Performed By: #### 2 4323-8 #### [facility] CLIA [id number] [address] [place] [address] [place] Glucose [Mass/Vol] 138 mg/dL High 74-99 [facility] Comment on above: Order Comment: Samson men Type: BLOOD SPECIMEN Ordering Facility: [facility] Address: [address] [address] Result Comment: The [place] [employer] (ADA) provides guidance for cutoff [...] Standards of Medical Care in Diabetes 2016, [place] [employer]. Diabetes Care. 2016.39(Suppl 1). Performed By: #### 2 4323-8 #### [facility] CLIA [id number] [address] [place] Potassium [Moles/Vol] 4.2 mmol/L Normal 3.7-5.1 [facility] Comment on above: Order Comment: Speci men Type: BLOOD SPECIMEN Ordering Facility: [facility] Address: [address] [address] Performed By: #### 2 4323-8 #### [facility] CLIA [id number] [address] STATES OF [facility] Protein [Mass/Vol] 6.4 g/dL Normal 6.3-8.0 [facility] Comment on above: Order Comment: Samson morrow Type: BLOOD SPECIMEN Ordering Facility: [facility] Address: [address] [address] Performed By: #### 2 4323-8 #### [facility] CLIA [id number] [address] [place] [address] [place] Sodium [Moles/Vol] 134 mmol/L Low 136-144 [facility] Comment on above: Order Comment: Samson men Type: BLOOD SPECIMEN Ordering Facility: [facility] Address: [address] [address] Performed By: #### 2 4323-8 #### [facility] CLIA [id number] [address] [facility] Urea nitrogen [Mass/Vol] 7 mg/dL Normal 7-21 [facility] Comment on above: Order Comment: Speci men Type: BLOOD SPECIMEN Ordering Facility: [facility] Address: [address] [place] [address] Performed By: #### 2 4323-8 #### [facility] CLIA [id number] [address] [place] Magnesium SerPl-mCncon 11-25 Magnesium [Mass/Vol] 1.8 mg/dL Normal 1.7-2.3 [facility] Comment on above: Order Comment: Speci men Type: BLOOD SPECIMEN Ordering Facility: [facility] Address: [address] [place] [address] Performed By: #### 2 4323-8 #### [facility] CLIA [id number] [address] NURSING PROGon 11-25-2022 NURSING PROG HNO ID: [id number] Author: Nava Jean RN Service: Nursing Author Type: Registered Nurse Type: Nursing Progress Note Filed: 11/25/2022 2:43 AM Note Text: 2024: Received pt from PACU via bed. Pt denies pain at this time. Up to BR with steady gait. Back to bed without incident. Pt oriented to room and call craig. Call craig in reach. Family at bedside. Normal [facility] SARS-CoV-2 RNA Resp Ql ARNOLDO+p robeon 11-25-2022 SARS-CoV-2 (COVID-19) RNA ARNOLDO+probe Ql (Resp) COVID 19 RESULT: SARS-CoV-2 (Agent of COVID-19) Not Detected by RT-PCR or equivalent method. This test has been authorized by FDA under an Emergency Use Authorization (EUA). Normal [facility] Comment on above: Performed By: #### 9 4500-6 ####[facility] [id number] [address] [place] ANES POSTPROC EVALon 023 ANES POSTPROC EVAL HNO ID: [id number] Author: Kevyn Ivory MD Service: ? Author Type: Anesthesiologist Type: Anesthesia Postprocedure Evaluation Filed: 11/24/2022 7:39 PM Note Text: POST ANESTHESIA EVALUATION NOTE : 1975 Procedure Summary Date: 11/24/22 Room / Location: IN OR02 / ME OR Anesthesia Start: 1819 Anesthesia Stop: 1906 Procedure: INCISION AND DRAINAGE ABSCESS UPPER EXTREMITY, COMPLICATED OR MULTIPLE (Left: Hand) Diagnosis: Surgical site infection (Surgical site infection [T81.49XA]) Surgeons: Angel uLis Hernández MD Responsible Provider: Kevyn Ivory MD [...] November 24, 2022 TIME: 7:38 PM CSN: [id number] [facility] ANES PRE-OPon 11-24-2022 ANES PRE-OP HNO ID: [id number] Author: Janse Dutta MD Service: Anesthesiology Author Type: Anesthesiologist Type: Anesthesia Preprocedure Evaluation Filed: 11/24/2022 3:23 PM Note Text: ANESTHESIOLOGY DAY OF SURGERY NOTE : 1975 Procedure Information Date/Time: 11/24/22 1555 Procedure: INCISION AND DRAINAGE ABSCESS UPPER EXTREMITY, COMPLICATED OR MULTIPLE (Left: Hand) Location: [facility] / IN OR Surgeons: Angel Luis Hernández MD Estimated [...] and consent discussed: yes. Patient / Responsible [employer] agrees to proceed: yes Patient / Surrogate [...] November 24, 2022 TIME: 3:09 PM CSN: [id number] [facility] Absolute lymphocyte countOrd ered By: Dr. Tomas on 11-24-2022 Lymphocytes Auto (Unsp spec) [#/Vol] 4.56 10*3/uL 0.83-4.51 [facility] BRIEF OP NOTon 11-24-2022 BRIEF OP NOT HNO ID: [id number] Author: Angel Luis Hernández MD Service: Orthopaedic Surgery Author Type: Physician Type: Brief Op Note Filed: 11/24/2022 7:14 PM Note Text: BRIEF OPERATIVE / PROCEDURE NOTE LOG ID: [id number] SURGERY/PROCEDURE DATE: 11/24/2022 INCISION/PROCEDURE START TIME: 6:37 PM INCISION CLOSE/PROCEDURE END TIME: 6:57 PM SURGEON(S)/PROCEDURAL IST(S) AND CREW CALLER(S): Surgeon(s) and Role: * Angel Luis Hernández MD - Primary Physician Tracer Bullet Section Supervisor: Marcie Rosenbaum PA-C SURGERY/PROCEDURE(S): Left hand, I and D. ANESTHESIA: Monitored Anesthesia Care FINDINGS: post op infection ESTIMATED BLOOD LOSS: 0 ml SPECIMENS: cultures sent COMPLICATIONS: None DRAINS: packing PRE-OP/PRE-PROCEDURE DIAGNOSIS: Left hand infection. POST-OP/POST-PROCEDUR E DIAGNOSIS: Same as Preop SIGNATURE: Angel Luis Hernández MD PATIENT NAME: Bev Gerardo Call DATE: November 24, 2022 TIME: 7:13 PM [facility] Bacteria Spec Anaerobe Culto n 11-24-2022 Bacteria identified Anaer cx Nom (Unsp spec) Negative [facility] Comment on above: Performed By: #### 6 35-3, 6462-6, 56096-8 ####[facility] [id number] [address] [place] Bacteria Wnd Culton 11-24-19 Bacteria identified Cx Nom (Wound) ORGANISM ID: [...] , Intermediate >4 , Resistant >8 Abnormal [facility] Comment on above: Performed By: #### 6 35-3, 6462-6, 64239-3 ####[facility] [id number] [place] [address] [place] Basophil percentageOrdered B y: Dr. Tomas on 11-24-2022 Basophils/100 WBC (Bld) 0.6 % 0-1 [facility] Chloride [Moles/Vol] 104 mmol/L 98-107 [facility] Eosinophils/100 WBC (Bld) 2.1 % 0-5 [facility] Glucose [Mass/Vol] 98 mg/dL 74-106 [facility] Neutrophils (Bld) [#/Vol] 14.2 10*3/uL 2.0-7.7 [facility] Neutrophils/100 WBC (Bld) 65.6 % 47-70 [facility] Potassium [Moles/Vol] 3.0 mmol/L 3.5-5.1 [facility] Sodium [Moles/Vol] 138 mmol/L 136-145 [facility] WBC (Bld) [#/Vol] 21.7 10*3/uL 4.4-11.0 [facility] Blood erythrocytes count (nu mber/volume)Ordered By: Dr. Tomas on 11-24-2022 RBC (Bld) [#/Vol] 4.31 10*6/uL 4.2-5.4 [facility] Blood hemoglobin measurement (mass/volume)Ordered By: Dr. Tomas on 11-24-2022 Hemoglobin (Bld) [Mass/Vol] 11.9 g/dL 12.0-15.0 [facility] Blood lymphocytes/100 leukoc ytesOrdered By: Dr. Tomas on 11-24-2022 Lymphocytes/100 WBC (Bld) 21.0 % 19-41 [facility] Blood manual differential co mment interpretation (narrative result)Ordered By: Dr. Tomas on 11-24-2022 Manual differential comment Corey (Bld) [Interp] SCANNED [facility] Blood monocytes/100 leukocyt esOrdered By: [address] Tomas on 11-24-2022 Monocytes/100 WBC (Bld) 10.3 % 0-10 [facility] Blood platelet mean volumeOr dered By: Dr. Tomas on 11-24-2022 Platelet mean volume (Bld) [Entitic vol] 9.6 fL 6.2-12.0 [facility] Determination of erythrocyte mean corpuscular volume (MCV)Ordered By: Dr. Tomas on 11-24-2022 MCV (RBC) [Entitic vol] 87.2 fL 81-99 [facility] Hematocrit Auto (Bld) [Volum e fraction]Ordered By: Dr. Tomas on 11-24-2022 Hematocrit (Bld) [Volume fraction] 37.6 % 37-47 [facility] - Chemistry and C hemistry - challengeOrdered By: Dr. Tomas on 11-24-2022 CO2 [Moles/Vol] 27.0 mmol/L 21.0-32.0 [facility] Urea nitrogen/Creatinine [Mass ratio] 18.7 mg/mg 10-20 [facility] - Hematology and Cell countsOrdered By: Dr. Tomas on 11-24-2022 Erythrocyte distribution width (RBC) [Entitic vol] 55.2 fL 35.1-43.9 [facility] Erythrocyte distribution width (RBC) [Ratio] 17.2 % 11.6-14.6 [facility] Immature granulocytes/100 WBC (Bld) 0.400 % 0.0-0.9 [facility] Comment on above: IG% - Immature Granu locytes (promyelocytes, myelocytes and metamyelocytes) > 1% indicates that a LEFT SHIFT is Present. MCH (RBC) [Entitic mass] 27.6 pg 27.0-32.0 [facility] Nucleated RBC/100 WBC (Bld) [Ratio] 0 % 0-5 [facility] MCHC Auto (RBC) [Mass/Vol]Or dered By: Dr. Tomas on 11-24-2022 MCHC (RBC) [Mass/Vol] 31.6 g/dL 32-36 [facility] Microorganism Spec Culton Microorganism identified Cx Nom (Unsp spec) CULTURE, FUNGAL: No Fungus isolated after 28 days FUNGAL SMEAR: No fungus seen Normal [facility] Comment on above: Performed By: #### 6 35-3, 6462-6, 23994-9 ####[facility] [id number] [place] [address] [place] No Panel InformationOrdered By: Dr. Tomas on 11-24-2022 Estimated GFR (MDRD) Amer 107 mL/min >60 [facility] Estimated GFR (MDRD) Non-Af Amer 88 mL/min >60 [facility] OPERATIVE NOon 11-24-2022 OPERATIVE NO HNO ID: [id number] Author: Angel Luis Hernández MD Service: Orthopaedic Surgery Author Type: Physician Type: Operative Report Filed: 11/29/2022 8:09 AM Note Text: OPERATIVE/PROCEDURE REPORT LOG ID: [id number] SURGERY/PROCEDURE DATE: 11/24/2022 INCISION/PROCEDURE START TIME: 6:37 PM INCISION CLOSE/PROCEDURE END TIME: 6:57 PM SURGEON(S)/PROCEDURAL IST(S) AND CREW CALLER(S): Surgeon(s) and Role: * Angel Luis Hernández MD - Primary Physician Tracer Bullet Section Supervisor: Marcie Rosenbaum PA-C SURGERY/PROCEDURE(S): Incision and drainage/irrigation, left hand; [...] Plan was to get her up to [place] for operative washout. I discussed with her [...] November 29, 2022 TIME: 7:59 AM Normal [facility] Platelets bldOrdered By: Dr. Tomas on 11-24-2022 Platelets (Bld) [#/Vol] 624 10*3/uL 150-450 [facility] Review by pathologistOrdered By: Dr. Tomas on 11-24-2022 Pathologist review Corey (Unsp spec) [Interp] March [facility] Serum or plasma calcium cornelio urement (mass/volume)Ordered By: Dr. Tomas on 01-18-2023 Calcium [Mass/Vol] 9.6 mg/dL 8.5-10.1 [facility] Serum or plasma creatinine m easurement (mass/volume)Ordered By: Dr. Tomas on 11-24-2022 Creatinine [Mass/Vol] 0.75 mg/dL 0.55-1.02 [facility] Comment on above: The validity of the calculated GFR & GFRAA in patients over 70 years has not been determined. Clinical correlation is essential. Serum or plasma urea nitroge n measurement (mass/volume)Ordered By: Dr. Tomas on 11-24-2022 Urea nitrogen [Mass/Vol] 14 mg/dL 05-24 [facility] Thin prep Papanicolaou smear with manual screeningOrdered By: Dr. Tomas on 11-24-2022 Thin prep Papanicolaou smear with manual screening 03-21 [facility] ANES POSTPROC EVALon 023 ANES POSTPROC EVAL HNO ID: [id number] Author: Janes Dutta MD Service: Anesthesiology Author Type: Anesthesiologist Type: Anesthesia Postprocedure Evaluation Filed: 11/10/2022 3:53 PM Note Text: POST ANESTHESIA EVALUATION NOTE : 1975 Procedure Summary Date: 11/10/22 Room / Location: IN OR / IN OR Anesthesia Start: 1503 Anesthesia Stop: 154 Procedure: DECOMPRESSION NERVE MEDIAN CARPAL TUNNEL (Left: [...] November 10, 2022 TIME: 3:53 PM CSN: [id number] [facility] ANES PRE-OPon 11-10-2022 ANES PRE-OP HNO ID: [id number] Author: Janes Dutta MD Service: Anesthesiology Author Type: Anesthesiologist Type: Anesthesia Preprocedure Evaluation Filed: 11/10/2022 1:46 PM Note Text: ANESTHESIOLOGY DAY OF SURGERY NOTE : 1975 Procedure Information Date/Time: 11/10/221431 Procedure: DECOMPRESSION NERVE MEDIAN CARPAL TUNNEL (Left: Wrist) Location: IN OR02 / IN OR Surgeons: Angel Luis Hernández MD Estimated [...] and consent discussed: yes. Patient / Responsible [employer] agrees to proceed: yes Patient / Surrogate [...] November 10, 2022 TIME: 1:46 PM CSN: [id number] [facility] OPERATIVE NOon 11-10-2022 OPERATIVE NO HNO ID: [id number] Author: Angel Luis Hernández MD Service: Orthopaedic Surgery Author Type: Physician Type: Operative Report Filed: 11/10/2022 5:42 PM Note Text: OPERATIVE/PROCEDURE REPORT LOG ID: [id number] SURGERY/PROCEDURE DATE: 11/10/2022 INCISION/PROCEDURE START TIME: 3:16 PM INCISION CLOSE/PROCEDURE END TIME: 3:33 PM SURGEON(S)/PROCEDURAL IST(S) AND CREW CALLER(S): Surgeon(s) and Role: * Angel Luis Hernández MD - Primary Physician Tracer Bullet Section Supervisor: Jamilah Santizo PA-C Registered Nurse Envelope Addresser: Caitlyn Renteria RN SURGERY/PROCEDURE(S): OPERATION: Left carpal [...] resistance. Subsequently, I selected a mini meniscotome [place] blade and slid this in the protective guide, completely dividing the transverse carpal ligament. Sydney rakes were used to view up the wound to visualize for complete release and a Brick elevator was used to palpate for complete [...] DATE: November 10, 2022 TIME: 5:38 PM [facility] Absolute lymphocyte countOrd ered By: Dr. Lu on 10-08-2022 Lymphocytes Auto (Unsp spec) [#/Vol] 2.39 10*3/uL 0.83-4.51 [facility] Basophil percentageOrdered B y: Dr. Lu on 10-08-2022 Basophils/100 WBC (Bld) 0.5 % 0-1 [facility] Chloride [Moles/Vol] 111 mmol/L 98-107 [facility] Eosinophils/100 WBC (Bld) 2.0 % 0-5 [facility] Glucose [Mass/Vol] 112 mg/dL 74-106 [facility] Comment on above: Fasting Glucose resu lt from 100 to 125 mg/dL suggests IMPAIRED HOMEOSTASIS per A.D.A. criteria. Neutrophils (Bld) [#/Vol] 9.8 10*3/uL 2.0-7.7 [facility] Neutrophils/100 WBC (Bld) 72.8 % 47-70 [facility] Potassium [Moles/Vol] 2.8 mmol/L 3.5-5.1 [facility] Sodium [Moles/Vol] 141 mmol/L 136-145 [facility] WBC (Bld) [#/Vol] 13.5 10*3/uL 4.4-11.0 [facility] Blood erythrocytes count (nu mber/volume)Ordered By: Dr. uL on 10-08-2022 RBC (Bld) [#/Vol] 4.01 10*6/uL 4.2-5.4 [facility] Blood hemoglobin measurement (mass/volume)Ordered By: Dr. Lu on 10-08-2022 Hemoglobin (Bld) [Mass/Vol] 10.8 g/dL 12.0-15.0 [facility] Blood lymphocytes/100 leukoc ytesOrdered By: Dr. Lu on 10-08-2022 Lymphocytes/100 WBC (Bld) 17.7 % 19-41 [facility] Blood monocytes/100 leukocyt esOrdered By: Dr. Lu on 10-08-2022 Monocytes/100 WBC (Bld) 6.3 % 0-10 [facility] Blood platelet mean volumeOr dered By: Dr. Lu on 10-08-2022 Platelet mean volume (Bld) [Entitic vol] 9.3 fL 6.2-12.0 [facility] Determination of erythrocyte mean corpuscular volume (MCV)Ordered By: Dr. Lu on 10-08-2022 MCV (RBC) [Entitic vol] 88.0 fL 81-99 [facility] Hematocrit Auto (Bld) [Volum e fraction]Ordered By: Dr. Lu on 10-08-2022 Hematocrit (Bld) [Volume fraction] 35.3 % 37-47 [facility] - Chemistry and C hemistry - challengeOrdered By: Dr. Lu on 10-08-2022 CO2 [Moles/Vol] 26.0 mmol/L 21.0-32.0 [facility] Urea nitrogen/Creatinine [Mass ratio] 11.6 mg/mg 10-20 [facility] - Hematology and Cell countsOrdered By: Dr. Lu on 10-08-2022 Erythrocyte distribution width (RBC) [Entitic vol] 55.8 fL 35.1-43.9 [facility] Erythrocyte distribution width (RBC) [Ratio] 17.4 % 11.6-14.6 [facility] Immature granulocytes/100 WBC (Bld) 0.700 % 0.0-0.9 [facility] Comment on above: IG% - Immature Granu locytes (promyelocytes, myelocytes and metamyelocytes) > 1% indicates that a LEFT SHIFT is Present. MCH (RBC) [Entitic mass] 26.9 pg 27.0-32.0 [facility] Nucleated RBC/100 WBC (Bld) [Ratio] 0 % 0-5 [facility] MCHC Auto (RBC) [Mass/Vol]Or dered By: Dr. Lu on 10-08-2022 MCHC (RBC) [Mass/Vol] 30.6 g/dL 32-36 [facility] No Panel InformationOrdered By: Dr. Lu on 10-08-2022 Estimated Creatinine Clearance Calc 72.20 ml/min [facility] Estimated GFR (MDRD) Amer 103 mL/min >60 [facility] Comment on above: GFR Calc Estimated GFR (MDRD) Non-Af Amer 85 mL/min >60 [facility] Comment on above: Non- GFR Calc Troponin I High Sensitivity 7 pg/mL 3.0-54.0 [facility] Comment on above: Please Note: [place] t Units and Gender Specific Reference Ranges. For more information see Policy Stat Procedure [place] High Sensitivity Troponin (TNIH) and attachments. Platelets bldOrdered By: Dr. Lu on 10-08-2022 Platelets (Bld) [#/Vol] 432 10*3/uL 150-450 [facility] Serum or plasma calcium cornelio urement (mass/volume)Ordered By: Dr. Lu on 10-08-2022 Calcium [Mass/Vol] 8.8 mg/dL 8.5-10.1 [facility] Serum or plasma creatinine m easurement (mass/volume)Ordered By: Dr. Lu on 10-08-2022 Creatinine [Mass/Vol] 0.77 mg/dL 0.55-1.02 [facility] Comment on above: The validity of the calculated GFR & GFRAA in patients over 70 years has not been determined. Clinical correlation is essential. Serum or plasma urea nitroge n measurement (mass/volume)Ordered By: Dr. Lu on 10-08-2022 Urea nitrogen [Mass/Vol] 9 mg/dL 7-18 [facility] Thin prep Papanicolaou smear with manual screeningOrdered By: Dr. Lu on 10-08-2022 Thin prep Papanicolaou smear with manual screening 4 5-15 [facility] Absolute lymphocyte counton 05-05-2022 Lymphocytes Auto (Unsp spec) [#/Vol] 2.73 10*3/uL 0.83-4.51 [facility] Work Phone: Basophil percentageon 2021 Basophil percentage 0 SEEN /hpf 0-5 [facility] Work Phone: Basophils/100 WBC (Bld) 0.5 % 0-1 [facility] Work Phone: [phone] Chloride [Moles/Vol] 109 mmol/L 98-107 [facility] Work Phone: Eosinophils/100 WBC (Bld) 1.6 % 0-5 [facility] Work Phone: Glucose [Mass/Vol] 101 mg/dL 74-106 [facility] Work Phone: Comment on above: Fasting Glucose resu lt from 100 to 125 mg/dL suggests IMPAIRED HOMEOSTASIS per A.D.A. criteria. Neutrophils (Bld) [#/Vol] 10.3 10*3/uL 2.0-7.7 [facility] Work Phone: Neutrophils/100 WBC (Bld) 70.6 % 47-70 [facility] Work Phone: Potassium [Moles/Vol] 3.3 mmol/L 3.5-5.1 [facility] Work Phone: Sodium [Moles/Vol] 141 mmol/L 136-145 [facility] Work Phone: WBC (Bld) [#/Vol] 14.6 10*3/uL 4.4-11.0 [facility] Work Phone: Beta hCG serum qualon 2021 Beta HCG ( test) Ql Negative [facility] Work Phone: Bilirubin Test strip Ql (U)o n 05-05-2022 Bilirubin Ql (U) Negative Negative [facility] Work Phone: Blood erythrocytes count (nu mber/volume)on 05-05-2022 RBC (Bld) [#/Vol] 3.92 10*6/uL 4.2-5.4 [facility] Work Phone: Blood hemoglobin measurement (mass/volume)on 05-05-2022 Hemoglobin (Bld) [Mass/Vol] 10.9 g/dL 12.0-15.0 [facility] Work Phone: Blood lymphocytes/100 leukoc yteson 05-05-2022 Lymphocytes/100 WBC (Bld) 18.7 % 19-41 [facility] Work Phone: Blood monocytes/100 leukocyt eson 05-05-2022 Monocytes/100 WBC (Bld) 8.2 % 0-10 [facility] Work Phone: Blood platelet mean volumeon 05-05-2022 Platelet mean volume (Bld) [Entitic vol] 10.2 fL 6.2-12.0 [facility] Work Phone: Determination of erythrocyte mean corpuscular volume (MCV)on 05-05-2022 MCV (RBC) [Entitic vol] 89.8 fL 81-99 [facility] Work Phone: Hematocrit Auto (Bld) [Volum e fraction]on 05-05-2022 Hematocrit (Bld) [Volume fraction] 35.2 % 37-47 [facility] Work Phone: Ketones Test strip Ql (U)on 05-05-2022 Ketones Ql (U) Negative Negative [facility] Work Phone: Laboratory - Chemistry and C hemistry - challengeon 05-05-2022 CO2 [Moles/Vol] 27.0 mmol/L 21.0-32.0 [facility] Work Phone: Urea nitrogen/Creatinine [Mass ratio] 7.6 mg/mg 10-20 [facility] Work Phone: Laboratory - Hematology and Cell countson 05-05-2022 Erythrocyte distribution width (RBC) [Entitic vol] 51.5 fL 35.1-43.9 [facility] Work Phone: Erythrocyte distribution width (RBC) [Ratio] 15.6 % 11.6-14.6 [facility] Work Phone: Immature granulocytes/100 WBC (Bld) 0.400 % 0.0-0.9 [facility] Work Phone: Comment on above: IG% - Immature Granu locytes (promyelocytes, myelocytes and metamyelocytes) > 1% indicates that a LEFT SHIFT is Present. MCH (RBC) [Entitic mass] 27.8 pg 27.0-32.0 [facility] Work Phone: Nucleated RBC/100 WBC (Bld) [Ratio] 0 % 0-5 [facility] Work Phone: MCHC Auto (RBC) [Mass/Vol]on 05-05-2022 MCHC (RBC) [Mass/Vol] 31.0 g/dL 32-36 [facility] Work Phone: Mucus LM Ql (Urine sed)on Mucus Ql (Urine sed) 0 SEEN /hpf [facility] Work Phone: Nitrite Test strip Ql (U)on 05-05-2022 Nitrite Ql (U) Negative Negative [facility] Work Phone: No Panel Informationon 05-05 Estimated Creatinine Clearance Calc 70.38 ml/min [facility] Work Phone: Estimated GFR (MDRD) Amer 101 mL/min >60 [facility] Work Phone: Comment on above: GFR Calc Estimated GFR (MDRD) Non-Af Amer 84 mL/min >60 [facility] Work Phone: Comment on above: Non- GFR Calc Platelets bldon 05-05-2022 Platelets (Bld) [#/Vol] 343 10*3/uL 150-450 [facility] Work Phone: Protein Test strip Ql (U)on 05-05-2022 Protein Ql (U) Negative Negative [facility] Work Phone: Serum or plasma calcium cornelio urement (mass/volume)on 05-05-2022 Calcium [Mass/Vol] 8.7 mg/dL 8.5-10.1 [facility] Work Phone: Serum or plasma creatinine m easurement (mass/volume)on 05-05-2022 Creatinine [Mass/Vol] 0.79 mg/dL 0.55-1.02 [facility] Work Phone: Comment on above: The validity of the calculated GFR & GFRAA in patients over 70 years has not been determined. Clinical correlation is essential. Serum or plasma urea nitroge n measurement (mass/volume)on 05-05-2022 Urea nitrogen [Mass/Vol] 6 mg/dL 7-18 [facility] Work Phone: Squamous epithelial cells de tection in urine sediment by light microscopyon 05-05-2022 Epithelial cells.squamous LM Ql (Urine sed) 0-5 SEEN /hpf 5-10 [facility] Work Phone: Thin prep Papanicolaou smear with manual screeningon 05-05-2022 Thin prep Papanicolaou smear with manual screening 5 5-15 [facility] Work Phone: Urine blood detectionon - RBC Ql (U) 25 /ul Negative [facility] Work Phone: RBC Ql (U) 0-5 SEEN /hpf 0-5 [facility] Work Phone: Urine clarityon 05-05-2022 Clarity (U) Clear Clear [facility] Work Phone: Urine color determinationon 05-05-2022 Color (U) Yellow Yellow [facility] Work Phone: Urine glucose detectionon Glucose Ql (U) Normal mg/dl Normal [facility] Work Phone: Urine leukocyte esterase det ection by dipstickon 05-05-2022 Leukocyte esterase Test strip Ql (U) Negative Negative [facility] Work Phone: Urine pHon 05-05-2022 pH (U) 6.5 [pH] 5.0 - 8.0 [facility] Work Phone: Urine sediment bacteria coun t by microscopy (number/high power field)on 05-05-2022 Bacteria LM.HPF (Urine sed) [#/Area] 1 /[HPF] None Seen [facility] Work Phone: Urine specific gravity measu rementon 05-05-2022 Specific gravity (U) [Rel density] 1.005 1.002-1.030 [facility] Work Phone: Urobilinogen Auto test strip Ql (U)on 05-05-2022 Urobilinogen Ql (U) Normal mg/dl Normal [facility] Work Phone: EMG(NEURO/NI)on 03-05-2022 [facility] XR ELBOW SPECIAL VIEWS AP/LA T/OTHER LEFTon 02-01-2022 [facility] XR Elbow - left AP and Later al and obliqueon 02-01-2022 IMPRESSION: No radiographic evidence of acute osseous abnormality Stage Set Up Worker: [facility] Transcribe Date/Time: Feb 01 2022 9:23A [...] Joint spaces preserved. DIVISION OF RADIOLOGY [facility] * * *Final Report* * [...] No radiographic evidence of acute osseous abnormality Stage Set Up Worker: [facility] Transcribe Date/Time: Feb 01 2022 9:23A Dictated by : ROGE OLSON MD This examination was interpreted and the report reviewed and electronically signed by: ROGE OLSON MD on Feb 01 2022 9:23AM EST [facility] Rad[facility]ative[facility] Elbow - left AP and Later al and obliqueOrdered By: [facility] Provider on 02-01-2022 [facility] XR Chest PA and Lateralon IMPRESSION: Extensive upper lungs pulmonary emphysema with questionable changes of bronchitis in the lower lungs. A follow-up exam is recommended. Stage Set Up Worker: [facility] Transcribe Date/Time: Nov 14 2021 9:46A Dictated by : AMANDA VILLEGAS MD This examination was interpreted and the report reviewed and electronically signed by: AMANDA VILLEGAS MD on Nov 14 2021 9:48AM [facility] DIVISION OF RADIOLOGY * * *Final Report* [...] soft tissues: Unremarkable. DIVISION OF RADIOLOGY Provider, [facility] - 11/14/2021 * * *Final Report* * [...] lower lungs. A follow-up exam is recommended. Stage Set Up Worker: [facility] Transcribe Date/Time: Nov 14 2021 9:46A Dictated by : AMANDA VILLEGAS MD This examination was interpreted and the report reviewed and electronically signed by: AMANDA VILLEGAS MD on Nov 14 2021 9:48AM EST [facility] Radiology Study observation (narrative) [facility] XR Chest PA and LateralOrder ed By: Ccf Provider on 11-14-2021 [facility] UR DRUG ABUSEon 08-31-2018 UR AMPH Negative Normal Wuelzn=0967 [facility] Meherrin Comment on above: Order Comment: Ilene s: M: STAT RESULTS TO PAIN MANAGEMENT Performed By: #### L 600.49743 ####[facility] [id number] [place] [address]Xk# [phone] UR BRADY Negative Normal Oeklkz=973 [facility] Meherrin Comment on above: Order Comment: Ileen s: M: STAT RESULTS TO PAIN MANAGEMENT Performed By: #### L 600.14379 ####[facility] [id number] [place], [place] [address]Tz# [phone] UR SELVIN Negative Normal Ddxaid=944 [facility] Comment on above: Order Comment: Ilene s: M: STAT RESULTS TO PAIN MANAGEMENT Performed By: #### L 600.62622 ####[facility] [id number] [place], [place] [address]Kl# [phone] UR MARQUIS/THC Positive Normal Cutoff=50 [facility] Meherrin Comment on above: Order Comment: Ilene s: M: STAT RESULTS TO PAIN MANAGEMENT Performed By: #### L 600.77957 ####[facility] [id number] [place], [place] [address]Cl# [phone] UR CED Negative Normal Mkjgvz=449 [facility] Meherrin Comment on above: Order Comment: Ilene s: M: STAT RESULTS TO PAIN MANAGEMENT Performed By: #### L 600.35555 ####[facility] [id number] [place], [place] [address]Fk# [phone] UR OPIAT Negative Normal Nznqyl=643 [facility] Comment on above: Order Comment: Ilene s: M: STAT RESULTS TO PAIN MANAGEMENT Performed By: #### L 600.98011 ####[facility] [id number] [place], [place] [address]Oh# [phone] UR PCP Negative Normal Cutoff=25 [facility] Comment on above: Order Comment: Ilene s: M: STAT RESULTS TO PAIN MANAGEMENT Performed By: #### L 600.59353 ####[facility] [id number] [place], [place] [address]Nn# [phone] DRAB COMMENT Normal [facility] Comment on above: Order Comment: Ilene araya: M: STAT RESULTS TO PAIN MANAGEMENT Result Comment: [facility] [employer] results are qualitative, providing apreliminary analytical result. A positive result for anassay should be confirmed by another nonimmunological,reference method. A negative result indicates that theassay material is either not present, or present at levelsbelow the cutoff threshold for the analytical method range(AMR) validation. Performed By: #### L 600.20740 ####[facility] [id number] [place], [place] [address]Sa# [phone] UR DRUG ABUSEon 08-03-2018 UR AMPH Negative Normal Mnypfr=3150 [facility] Comment on above: Order Comment: Ilene s: M: STATE READ TO PAIN MGMT-MITCHEL PLEASE Performed By: #### L 600.88466 ####[facility] [id number] [place], [place] [address]Bu# [phone] UR BRADY Negative Normal Vfpsel=883 [facility] Comment on above: Order Comment: Ilene s: M: STATE READ TO PAIN MGMT-MITCHEL PLEASE Performed By: #### L 600.88572 ####[facility] [id number] [place], [place] [address]Lu# [phone] UR SELVIN Negative Normal Eioyxb=004 [facility] Comment on above: Order Comment: Campu s: M: STATE READ TO PAIN MGMT-MITCHEL PLEASE Performed By: #### L 600.26101 ####[facility] [id number] [place], [place] [address]Gn# [phone] UR MARQUIS/THC Positive Normal Cutoff=50 [facility] Comment on above: Order Comment: Michaelu s: M: STATE READ TO PAIN MGMT-MITCHEL PLEASE Performed By: #### L 600.99737 ####[facility] [id number] [place], [place] [address]Za# [phone] UR CED Negative Normal Yeljnp=813 [facility] Comment on above: Order Comment: Michaelu s: M: STATE READ TO PAIN MGMT-MITCHEL PLEASE Performed By: #### L 600.46361 ####[facility] [id number] [place], [place] [address]Eo# [phone] UR OPIAT Negative Normal Hemzbo=921 [facility] Comment on above: Order Comment: Michaelu s: M: STATE READ TO PAIN MGMT-MITCHEL PLEASE Performed By: #### L 600.27876 ####[facility] [id number] [place], [place] [address]Cc# [phone] UR PCP Negative Normal Cutoff=25 [facility] Comment on above: Order Comment: Michaelu s: M: STATE READ TO PAIN MGMT-MITCHEL PLEASE Performed By: #### L 600.07007 ####[facility] [id number] [place], [place] [address]Ce# [phone] DRAB COMMENT Normal [facility] Comment on above: Order Comment: [...] method range(AMR) validation. Performed By: #### L 600.08837 ####[facility] [id number] [place], [place] [address]Mn# [phone] URINE PREGNANCYon 08-03-2018 UR HCG QUAL Negative Normal NEGATIVE [facility] Comment on above: Order Comment: Ilene araya: M: STATE READ TO PAIN MGMT-MITCHEL PLEASE Performed By: #### L 600.98892 ####[facility] [id number] [place], [place] [address]Km# [phone] UR SPEC GRAV 1.008 Normal 1.005-1.030 [facility] Meherrin Comment on above: Order Comment: Ilene s: M: STATE READ TO PAIN MGMT-MITCHEL PLEASE Result Comment: URIN E HCG RESULT MAY BE FALSE NEGATIVE DUE TO LOW SPECIFICGRAVITY. SUGGEST SERUM TEST. Performed By: #### L 600.60405 ####[facility] [id number] [place], [place] [address]Hs# [phone] UR DRUG ABUSEon 07-06-2018 UR AMPH Negative Normal Phkpcv=4880 [facility] Comment on above: Order Comment: Ilene araya: M: STAT READ TO PAIN MANAGEMENT Performed By: #### L 600.27642 ####[facility] [id number] [place], [place] [address]Ix# [phone] UR BRADY Negative Normal Hsucqi=526 [facility] Comment on above: Order Comment: Ilene araya: M: STAT READ TO PAIN MANAGEMENT Performed By: #### L 600.08886 ####[facility] [id number] [place], [place] [address]Mg# [phone] UR SELVIN Negative Normal Dzquoc=907 [facility] Comment on above: Order Comment: Ilene s: M: STAT READ TO PAIN MANAGEMENT Performed By: #### L 600.46580 ####[facility] [id number] [place], [place] [address]Eq# [phone] UR MARQUIS/THC Positive Normal Cutoff=50 [facility] Comment on above: Order Comment: Ilene araya: M: STAT READ TO PAIN MANAGEMENT Performed By: #### L 600.09924 ####[facility] [id number] [place], [place] [address]Lq# [phone] UR CED Negative Normal Gzypxu=733 [facility] Comment on above: Order Comment: Ilene s: M: STAT READ TO PAIN MANAGEMENT Performed By: #### L 600.44353 ####[facility] [id number] [place], [place] [address]If# [phone] UR OPIAT Negative Normal Hmyihi=097 [facility] Comment on above: Order Comment: Ilene s: M: STAT READ TO PAIN MANAGEMENT Performed By: #### L 600.97276 ####[address] [address]Tq# [phone] UR PCP Negative Normal Cutoff=25 [facility] Comment on above: Order Comment: Ilene s: M: STAT READ TO PAIN MANAGEMENT Performed By: #### L 600.88859 ####[address] [address]Mf# [phone] DRAB COMMENT Normal [facility] Comment on above: Order Comment: [...] method range(AMR) validation. Performed By: #### L 600.86504 ####[address] [address]Rx# [phone] UR DRUG ABUSEon 06-08-2018 UR AMPH Negative Normal Uujqud=3178 [facility] Comment on above: Order Comment: Ilene s: M: STAT READ FAXED TO PAIN MANAGEMENT EXT.2717, PLEASE Performed By: #### L 600.30100 ####[facility] [id number] [place] [address]Um# [phone] UR BRADY Negative Normal Hkodxt=201 [facility] Comment on above: Order Comment: Ilene s: M: STAT READ FAXED TO PAIN MANAGEMENT EXT.2717, PLEASE Performed By: #### L 600.44096 ####[facility] [id number] [place], [place] [address]Sb# [phone] UR SELVIN Negative Normal Uwzefj=930 [facility] Comment on above: Order Comment: Ilene s: M: STAT READ FAXED TO PAIN MANAGEMENT EXT.2717, PLEASE Performed By: #### L 600.05582 ####[facility] [id number] [place], [place] [address]Rj# [phone] UR MARQUIS/THC Positive Normal Cutoff=50 [facility] Comment on above: Order Comment: Ilene s: M: STAT READ FAXED TO PAIN MANAGEMENT EXT.2717, PLEASE Performed By: #### L 600.52027 ####[facility] [id number] [place] [address]Sv# [phone] UR CED Negative Normal Pfsmbo=012 [facility] Comment on above: Order Comment: Ilene araya: M: STAT READ FAXED TO PAIN MANAGEMENT EXT.2717, PLEASE Performed By: #### L 600.99778 ####[facility] [id number] [place], [place] [address]Fk# [phone] UR OPIAT Negative Normal Xdbhze=200 [facility] Comment on above: Order Comment: Ilene araya: M: STAT READ FAXED TO PAIN MANAGEMENT EXT.2717, PLEASE Performed By: #### L 600.16355 ####[facility] [id number] [place], [place] [address]Fh# [phone] UR PCP Negative Normal Cutoff=25 [facility] Comment on above: Order Comment: Ilene s: M: STAT READ FAXED TO PAIN MANAGEMENT EXT.2717, PLEASE Performed By: #### L 600.48113 ####[facility] [id number] [place] [address]As# [phone] DRAB COMMENT Normal [facility] Comment on above: Order Comment: [...] method range(AMR) validation. Performed By: #### L 600.24369 ####[address] [address]Xh# [phone] UR DRUG ABUSEon 05-11-2018 UR AMPH Negative Normal Psogew=4287 [facility] Comment on above: Performed By: #### L 600.38645 ####[address] [address]Wm# [phone] UR BRADY Negative Normal Mfakuc=713 [facility] Comment on above: Performed By: #### L 600.14385 ####[address] [address]Yl# [phone] UR SELVIN Negative Normal Qrcauw=547 [facility] Comment on above: Performed By: #### L 600.81062 ####[address] [address]Jr# [phone] UR MARQUIS/THC Positive Normal Cutoff=50 [facility] Comment on above: Performed By: #### L 600.17669 ####[facility] [id number] [place] [address]Eu# [phone] UR CED Negative Normal Vyyiac=667 [facility] Comment on above: Performed By: #### L 600.76612 ####[facility] [id number] [place] [address]Ty# [phone] UR OPIAT Negative Normal Avezlg=549 [facility] Comment on above: Performed By: #### L 600.83964 ####[facility] [id number] [place] [address]Fg# [phone] UR PCP Negative Normal Cutoff=25 [facility] Comment on above: Performed By: #### L 600.40335 ####[facility] [id number] [place], [place] [address]Ph# [phone] DRAB COMMENT Normal [facility] Meherrin Comment on above: Result Comment: [facility] [employer] results are qualitative, providing apreliminary analytical result. A positive result for anassay should be confirmed by another nonimmunological,reference method. A negative result indicates that theassay material is either not present, or present at levelsbelow the cutoff threshold for the analytical method range(AMR) validation. Performed By: #### L 600.20465 ####[facility] [id number] [place], [place] [address]Vt# [phone] [facility] Note on 05-08-2018 [facility] Note Normal [facility] ([place] Pat Eduon 05-08-2018 Pat Edu Normal [facility] [place]) Patient Summary Documentson 05-08-2018 Patient Summary Documents Normal [facility] ([place] CHEST 2 VIEWSon 09-14-2017 CHEST 2 VIEWS Performed at [facility] APPROVED BY: Nicola Mitchell MD EXAMINATION: CHEST RADIOGRAPH (2 VIEW FRONTAL & LATERAL) Clinical History: Cough x5 daysM: XC2_3Comparison: 10/27/2000 RESULT: Lines, tubes, and devices: None. Lungs and pleura: Opacification in the right middle lobe consistent with acute inflammatory infiltrative process Cardiomediastinal silhouette: Normal cardiomediastinal silhouette. Other: IMPRESSION: Right middle lobe inflammatory infiltrate Normal [facility] Vital Signs Date Time Vital Sign Value Performing Clinician Facility 07-05-2025 14:40-0400 Body mass index (BMI) [Ratio] 30.06 kg/m2 Lindsay Parks APRN.CNM Work Phone: [facility] 07-05-2025 14:40-0400 Body weight 75.75 kg Lindsay Parks APRN.CNM Work Phone: [facility] 07-05-2025 14:40-0400 Diastolic blood pressure 84 mm[Hg] Lindsay Parks APRN.CNM Work Phone: [facility] 07-05-2025 14:40-0400 Systolic blood pressure 148 mm[Hg] Lindsay Parks APRN.CNM Work Phone: [facility] 07-03-2025 13:29-0400 Body mass index (BMI) [Ratio] 29.7 kg/m2 Martinez Garcia MD Work Phone: [facility] 07-03-2025 13:29-0400 Body temperature 96.01 [degF] Martinez Garcia MD Work Phone: [facility] 07-03-2025 13:29-0400 Body weight 74.84 kg Martinez Garcia MD Work Phone: [facility] 07-03-2025 13:29-0400 Diastolic blood pressure 84 mm[Hg] Martinez Garcia MD Work Phone: [facility] 07-03-2025 13:29-0400 Heart rate 75 /min Martinez Garcia MD Work Phone: [facility] 07-03-2025 13:29-0400 SaO2% (BldA) [Mass fraction] 97 % Martinez Garcia MD Work Phone: [facility] 07-03-2025 13:29-0400 Systolic blood pressure 128 mm[Hg] Martinez Garcia MD Work Phone: [facility] 06-21-2025 22:00-0400 Body temperature 98.1 [degF] Dr. Martinez Garcia MD Work Phone: [facility] 06-21-2025 22:00-0400 Diastolic blood pressure 59 mm[Hg] Dr. Martinez Garcia MD Work Phone: [facility] 06-21-2025 22:00-0400 Heart rate 81 /min Dr. Martinez Garcia MD Work Phone: [facility] 06-21-2025 22:00-0400 Respiratory rate 16 /min Dr. Martinez Garcia MD Work Phone: [facility] 06-21-2025 22:00-0400 SaO2% (BldA) [Mass fraction] 99 % Dr. Martinez Garcia MD Work Phone: [facility] 06-21-2025 22:00-0400 Systolic blood pressure 126 mm[Hg] Dr. Martinez Garcia MD Work Phone: [facility] 06-21-2025 17:08-0400 Body height 160.[address] Martinez Garcia MD Work Phone: [facility] 06-21-2025 17:08-0400 Body mass index (BMI) [Ratio] 29.3 kg/m2 Dr. Martinez Garcia MD Work Phone: [facility] 06-21-2025 17:08-0400 Body weight 75.[address] Martinez Garcia MD Work Phone: [facility] 06-18-2025 09:45-0400 Body mass index (BMI) [Ratio] 29.7 kg/m2 Amita Suppan THERAPEUTIC SALES SPECIALIST.INTERNATIONAL PROJECT MANAGER Work Phone: [facility] 06-18-2025 09:45-0400 Body temperature 96.69 [degF] Amita Suppan THERAPEUTIC SALES SPECIALIST.INTERNATIONAL PROJECT MANAGER Work Phone: [facility] 06-18-2025 09:45-0400 Body weight 74.84 kg Amita Suppan THERAPEUTIC SALES SPECIALIST.INTERNATIONAL PROJECT MANAGER Work Phone: [facility] 06-18-2025 09:45-0400 Diastolic blood pressure 86 mm[Hg] Amita Suppan THERAPEUTIC SALES SPECIALIST.INTERNATIONAL PROJECT MANAGER Work Phone: [facility] 06-18-2025 09:45-0400 Heart rate 83 /min Amita Suppan THERAPEUTIC SALES SPECIALIST.INTERNATIONAL PROJECT MANAGER Work Phone: [facility] 06-18-2025 09:45-0400 SaO2% (BldA) [Mass fraction] 99 % Amita Suppan THERAPEUTIC SALES SPECIALIST.INTERNATIONAL PROJECT MANAGER Work Phone: [facility] 06-18-2025 09:45-0400 Systolic blood pressure 122 mm[Hg] Amita Suppan THERAPEUTIC SALES SPECIALIST.INTERNATIONAL PROJECT MANAGER Work Phone: [facility] 06-07-2025 16:34-0400 Body mass index (BMI) [Ratio] 29.36 kg/m2 Kim Kebede MD Work Phone: [facility] 06-07-2025 16:34-0400 Body temperature 97.9 [degF] Kim Kebede MD Work Phone: [facility] 06-07-2025 16:34-0400 Body weight 74 kg Kim Kebede MD Work Phone: [facility] 06-07-2025 16:34-0400 Diastolic blood pressure 78 mm[Hg] Kim Kebede MD Work Phone: [facility] 06-07-2025 16:34-0400 Heart rate 95 /min Kim Kebede MD Work Phone: [facility] 06-07-2025 16:34-0400 Respiratory rate 18 /min Kim Kebede MD Work Phone: [facility] 06-07-2025 16:34-0400 SaO2% (BldA) [Mass fraction] 98 % Kim Kebede MD Work Phone: [facility] 06-07-2025 16:34-0400 Systolic blood pressure 122 mm[Hg] Kim Kebede MD Work Phone: [facility] 01-29-2025 13:19-0400 Diastolic blood pressure 82 mm[Hg] Amita Pope THERAPEUTIC SALES SPECIALIST.INTERNATIONAL PROJECT MANAGER Work Phone: [facility] 01-29-2025 13:19-0400 Systolic blood pressure 134 mm[Hg] Amita Suppan THERAPEUTIC SALES SPECIALIST.INTERNATIONAL PROJECT MANAGER Work Phone: [facility] 01-29-2025 13:01-0400 Body mass index (BMI) [Ratio] 29.88 kg/m2 Amita Suppan THERAPEUTIC SALES SPECIALIST.INTERNATIONAL PROJECT MANAGER Work Phone: [facility] 01-29-2025 13:01-0400 Body temperature 97 [degF] Amita Suppan THERAPEUTIC SALES SPECIALIST.INTERNATIONAL PROJECT MANAGER Work Phone: [facility] 01-29-2025 13:01-0400 Body weight 75.3 kg Amita Suppan THERAPEUTIC SALES SPECIALIST.INTERNATIONAL PROJECT MANAGER Work Phone: [facility] 01-29-2025 13:01-0400 Heart rate 90 /min Amita Pope THERAPEUTIC SALES SPECIALIST.INTERNATIONAL PROJECT MANAGER Work Phone: [facility] 01-29-2025 13:01-0400 SaO2% (BldA) [Mass fraction] 97 % Amita Pope THERAPEUTIC SALES SPECIALIST.INTERNATIONAL PROJECT MANAGER Work Phone: [facility] 01-25-2025 13:27-0400 Body height 158.8 cm Devin Masci DO Work Phone: [facility] 01-25-2025 13:27-0400 Body mass index (BMI) [Ratio] 30.6 kg/m2 Devin Masci DO Work Phone: [facility] 01-25-2025 13:27-0400 Body temperature 98.49 [degF] Devin Masci DO Work Phone: [facility] 01-25-2025 13:27-0400 Body weight 77.11 kg Devin Masci DO Work Phone: [facility] 01-25-2025 13:27-0400 Diastolic blood pressure 93 mm[Hg] Devin Masci DO Work Phone: [facility] 01-25-2025 13:27-0400 Heart rate 119 /min Devin Masci DO Work Phone: [facility] 01-25-2025 13:27-0400 SaO2% (BldA) [Mass fraction] 96 % Devin Masci DO Work Phone: [facility] 01-25-2025 13:27-0400 Systolic blood pressure 167 mm[Hg] Devin Masci DO Work Phone: [facility] 01-14-2025 14:27-0400 Body mass index (BMI) [Ratio] 30.33 kg/m2 Amita Pope THERAPEUTIC SALES SPECIALIST.INTERNATIONAL PROJECT MANAGER Work Phone: [facility] 01-14-2025 14:27-0400 Body temperature 99.39 [degF] Amita Pope THERAPEUTIC SALES SPECIALIST.INTERNATIONAL PROJECT MANAGER Work Phone: [facility] 01-14-2025 14:27-0400 Body weight 76.2 kg Amita Suppan THERAPEUTIC SALES SPECIALIST.INTERNATIONAL PROJECT MANAGER Work Phone: [facility] 01-14-2025 14:27-0400 Diastolic blood pressure 92 mm[Hg] Amita Suppan THERAPEUTIC SALES SPECIALIST.INTERNATIONAL PROJECT MANAGER Work Phone: [facility] 01-14-2025 14:27-0400 Heart rate 94 /min Amita Suppan THERAPEUTIC SALES SPECIALIST.INTERNATIONAL PROJECT MANAGER Work Phone: [facility] 01-14-2025 14:27-0400 SaO2% (BldA) [Mass fraction] 97 % Amita Suppan THERAPEUTIC SALES SPECIALIST.INTERNATIONAL PROJECT MANAGER Work Phone: [facility] 01-14-2025 14:27-0400 Systolic blood pressure 138 mm[Hg] Amita Suppan THERAPEUTIC SALES SPECIALIST.INTERNATIONAL PROJECT MANAGER Work Phone: [facility] 01-03-2025 13:29-0500 Body mass index (BMI) [Ratio] 30.15 kg/m2 Amita Suppan THERAPEUTIC SALES SPECIALIST.INTERNATIONAL PROJECT MANAGER Work Phone: [facility] 01-03-2025 13:29-0500 Body temperature 99.5 [degF] Amita Suppan THERAPEUTIC SALES SPECIALIST.INTERNATIONAL PROJECT MANAGER Work Phone: [facility] 01-03-2025 13:29-0500 Body weight 75.75 kg Amita Suppan THERAPEUTIC SALES SPECIALIST.INTERNATIONAL PROJECT MANAGER Work Phone: [facility] 01-03-2025 13:29-0500 Diastolic blood pressure 82 mm[Hg] Amita Suppan THERAPEUTIC SALES SPECIALIST.INTERNATIONAL PROJECT MANAGER Work Phone: [facility] 01-03-2025 13:29-0500 Heart rate 115 /min Amita Suppan THERAPEUTIC SALES SPECIALIST.INTERNATIONAL PROJECT MANAGER Work Phone: [facility] 01-03-2025 13:29-0500 SaO2% (BldA) [Mass fraction] 97 % Amita Suppan THERAPEUTIC SALES SPECIALIST.INTERNATIONAL PROJECT MANAGER Work Phone: [facility] 01-03-2025 13:29-0500 Systolic blood pressure 140 mm[Hg] Amita Suppan THERAPEUTIC SALES SPECIALIST.INTERNATIONAL PROJECT MANAGER Work Phone: [facility] 12-17-2024 13:06-0500 Body mass index (BMI) [Ratio] 28.18 kg/m2 Lindsay Ashley THERAPEUTIC SALES SPECIALIST.INTERNATIONAL PROJECT MANAGER Work Phone: [facility] 12-17-2024 13:06-0500 Body temperature 98.4 [degF] Lindsay Ashley THERAPEUTIC SALES SPECIALIST.INTERNATIONAL PROJECT MANAGER Work Phone: [facility] 12-17-2024 13:06-0500 Body weight 70.8 kg Lindsay Ashley THERAPEUTIC SALES SPECIALIST.INTERNATIONAL PROJECT MANAGER Work Phone: [facility] 12-17-2024 13:06-0500 Diastolic blood pressure 70 mm[Hg] Lindsay Ashley THERAPEUTIC SALES SPECIALIST.INTERNATIONAL PROJECT MANAGER Work Phone: [facility] 12-17-2024 13:06-0500 Heart rate 108 /min Lindsay Ashley THERAPEUTIC SALES SPECIALIST.INTERNATIONAL PROJECT MANAGER Work Phone: [facility] 12-17-2024 13:06-0500 Respiratory rate 18 /min Lindsay Ashley THERAPEUTIC SALES SPECIALIST.INTERNATIONAL PROJECT MANAGER Work Phone: [facility] 12-17-2024 13:06-0500 SaO2% (BldA) [Mass fraction] 98 % Lindsay Ashley THERAPEUTIC SALES SPECIALIST.INTERNATIONAL PROJECT MANAGER Work Phone: [facility] 12-17-2024 13:06-0500 Systolic blood pressure 110 mm[Hg] Lindsay Ashley THERAPEUTIC SALES SPECIALIST.INTERNATIONAL PROJECT MANAGER Work Phone: [facility] 03-27-2024 13:08-0400 Body height 158.5 cm NA Chowdhury PA-C Work Phone: [facility] 03-27-2024 13:08-0400 Body mass index (BMI) [Ratio] 24.92 kg/m2 NA Chowdhury PA-C Work Phone: [facility] 03-27-2024 13:08-0400 Body weight 62.6 kg NA Chowdhury PA-C Work Phone: [facility] 03-27-2024 13:08-0400 Diastolic blood pressure 92 mm[Hg] NA Chowdhury PA-C Work Phone: [facility] 03-27-2024 13:08-0400 Heart rate 105 /min NA Chowdhury PA-C Work Phone: [facility] 03-27-2024 13:08-0400 Respiratory rate 16 /min NA Chowdhury PA-C Work Phone: [facility] 03-27-2024 13:08-0400 SaO2% (BldA) [Mass fraction] 97 % NA Chowdhury PA-C Work Phone: [facility] 03-27-2024 13:08-0400 Systolic blood pressure 133 mm[Hg] NA Chowdhury PA-C Work Phone: [facility] 12-08-2023 19:31-0500 Body mass index (BMI) [Ratio] 26.1 kg/m2 [facility] 12-08-2023 19:31-0500 Body weight 64.7 kg [facility] 12-08-2023 18:31-0500 Body height 157.48 cm [facility] 12-08-2023 18:31-0500 Body temperature 98 [degF] [facility] [facility] 12-08-2023 18:31-0500 Diastolic blood pressure 96 mm[Hg] [facility] 12-08-2023 18:31-0500 Heart rate 101 /min [facility] 12-08-2023 18:31-0500 Respiratory rate 18 /min [facility] 12-08-2023 18:31-0500 SaO2% (BldA) [Mass fraction] 100 % [facility] 12-08-2023 18:31-0500 Systolic blood pressure 141 mm[Hg] [facility] 12-08-2023 17:59-0500 Body temperature 97.39 [degF] Nicci Neal APRN.INTERNATIONAL PROJECT MANAGER Work Phone: [facility] 12-08-2023 17:59-0500 Body weight 63.87 kg Nicci Neal APRN.INTERNATIONAL PROJECT MANAGER Work Phone: [facility] 12-08-2023 17:59-0500 Diastolic blood pressure 84 mm[Hg] Nicci Praisler-Wood THERAPEUTIC SALES SPECIALIST.INTERNATIONAL PROJECT MANAGER Work Phone: [facility] 12-08-2023 17:59-0500 Heart rate 107 /min Nicci Praisler-Wood THERAPEUTIC SALES SPECIALIST.INTERNATIONAL PROJECT MANAGER Work Phone: [facility] 12-08-2023 17:59-0500 Respiratory rate 20 /min Nicci Praisler-Wood THERAPEUTIC SALES SPECIALIST.INTERNATIONAL PROJECT MANAGER Work Phone: [facility] 12-08-2023 17:59-0500 SaO2% (BldA) [Mass fraction] 98 % Nicci Praisler-Wood THERAPEUTIC SALES SPECIALIST.INTERNATIONAL PROJECT MANAGER Work Phone: [facility] 12-08-2023 17:59-0500 Systolic blood pressure 142 mm[Hg] Nicci Praisler-Wood THERAPEUTIC SALES SPECIALIST.INTERNATIONAL PROJECT MANAGER Work Phone: [facility] 11-14-2023 14:21-0500 Body height 160.02 cm [facility] 11-14-2023 14:21-0500 Body mass index (BMI) [Ratio] 24.7 kg/m2 [facility] 11-14-2023 14:21-0500 Body temperature 97 [degF] [facility] 11-14-2023 14:21-0500 Body weight 63.5 kg [facility] 11-14-2023 14:21-0500 Diastolic blood pressure 116 mm[Hg] [facility] 11-14-2023 14:21-0500 Heart rate 109 /min [facility] 11-14-2023 14:21-0500 Respiratory rate 18 /min [facility] 11-14-2023 14:21-0500 SaO2% (BldA) [Mass fraction] 98 % [facility] 11-14-2023 14:21-0500 Systolic blood pressure 180 mm[Hg] [facility] 08-04-2023 14:03-0400 Body weight 62.6 kg Janelle Leahy THERAPEUTIC SALES SPECIALIST.CNM Work Phone: [facility] 09-28-2023 14:03-0400 Diastolic blood pressure 64 mm[Hg] Janelle Leahy THERAPEUTIC SALES SPECIALIST.CNM Work Phone: [facility] 08-04-2023 14:03-0400 Systolic blood pressure 110 mm[Hg] Janelle Leahy THERAPEUTIC SALES SPECIALIST.CNM Work Phone: [facility] 08-01-2023 12:23-0400 Diastolic blood pressure 78 mm[Hg] [facility] 08-01-2023 12:23-0400 Heart rate 68 /min [facility] 08-01-2023 12:23-0400 Respiratory rate 16 /min [facility] 08-01-2023 12:23-0400 SaO2% (BldA) [Mass fraction] 98 % [facility] 08-01-2023 12:23-0400 Systolic blood pressure 124 mm[Hg] [facility] 08-01-2023 10:07-0400 Body height 160.02 cm [facility] 08-01-2023 10:07-0400 Body mass index (BMI) [Ratio] 25.2 kg/m2 [facility] 08-01-2023 10:07-0400 Body temperature 97.9 [degF] [facility] 08-01-2023 10:07-0400 Body weight 64.54 kg [facility] 06-14-2023 23:38-0400 Diastolic blood pressure 65 mm[Hg] [facility] 06-14-2023 23:38-0400 Heart rate 88 /min [facility] 06-14-2023 23:38-0400 Respiratory rate 16 /min [facility] 06-14-2023 23:38-0400 SaO2% (BldA) [Mass fraction] 99 % [facility] 06-14-2023 23:38-0400 Systolic blood pressure 120 mm[Hg] [facility] 06-14-2023 21:44-0400 Body height 157.48 cm [facility] 06-14-2023 21:44-0400 Body mass index (BMI) [Ratio] 26.3 kg/m2 [facility] 06-14-2023 21:44-0400 Body temperature 97.9 [degF] [facility] 06-14-2023 21:44-0400 Body weight 65.31 kg [facility] 10-08-2022 13:08-0500 Diastolic blood pressure 68 mm[Hg] [facility] 10-08-2022 13:08-0500 Heart rate 85 /min [facility] 10-08-2022 13:08-0500 Respiratory rate 19 /min [facility] 10-08-2022 13:08-0500 SaO2% (BldA) [Mass fraction] 99 % [facility] 10-08-2022 13:08-0500 Systolic blood pressure 115 mm[Hg] [facility] 10-08-2022 11:28-0500 Body temperature 97.9 [degF] [facility] 10-08-2022 11:23-0500 Body height 157.48 cm [facility] 10-08-2022 11:23-0500 Body mass index (BMI) [Ratio] 26.6 kg/m2 [facility] 10-08-2022 11:23-0500 Body weight 66 kg [facility] 08-10-2022 11:42-0400 Body temperature 97.59 [degF] Traci Celis APRN.INTERNATIONAL PROJECT MANAGER Work Phone: [facility] 08-10-2022 11:42-0400 Body weight 64.86 kg Traci Celis APRN.INTERNATIONAL PROJECT MANAGER Work Phone: [facility] 08-10-2022 11:42-0400 Diastolic blood pressure 88 mm[Hg] Traci Celis APRN.INTERNATIONAL PROJECT MANAGER Work Phone: [facility] 08-10-2022 11:42-0400 Heart rate 90 /min Traci Celis APRN.INTERNATIONAL PROJECT MANAGER Work Phone: [facility] 08-10-2022 11:42-0400 Respiratory rate 16 /min Traci Celis APRN.INTERNATIONAL PROJECT MANAGER Work Phone: [facility] 08-10-2022 11:42-0400 SaO2% (BldA) [Mass fraction] 99 % Traci Celis APRN.INTERNATIONAL PROJECT MANAGER Work Phone: [facility] 08-10-2022 11:42-0400 Systolic blood pressure 152 mm[Hg] Traci Celis APRN.INTERNATIONAL PROJECT MANAGER Work Phone: [facility] 06-25-2022 09:31-0400 Respiratory rate 16 /min [facility] Work Phone: 06-25-2022 08:29-0400 Body height 157.48 cm [facility] Work Phone: 06-25-2022 08:29-0400 Body mass index (BMI) [Ratio] 27.5 kg/m2 [facility] Work Phone: 06-25-2022 08:29-0400 Body temperature 98.2 [degF] [facility] Work Phone: 06-25-2022 08:29-0400 Body weight 68.3 kg [facility] Work Phone: 06-25-2022 08:29-0400 Diastolic blood pressure 111 mm[Hg] [facility] Work Phone: 06-25-2022 08:29-0400 Heart rate 97 /min [facility] Work Phone: 06-25-2022 08:29-0400 SaO2% (BldA) [Mass fraction] 96 % [facility] Work Phone: 06-25-2022 08:29-0400 Systolic blood pressure 166 mm[Hg] [facility] Work Phone: 06-07-2022 08:31-0400 Body weight 67.13 kg Lindsay Jose APRN.INTERNATIONAL PROJECT MANAGER Work Phone: [facility] 06-07-2022 08:31-0400 Diastolic blood pressure 84 mm[Hg] Lindsay Jose APRN.INTERNATIONAL PROJECT MANAGER Work Phone: [facility] 06-07-2022 08:31-0400 Heart rate 92 /min Lindsay Jose APRN.INTERNATIONAL PROJECT MANAGER Work Phone: [facility] 06-07-2022 08:31-0400 SaO2% (BldA) [Mass fraction] 98 % Lindsay Jose THERAPEUTIC SALES SPECIALIST.INTERNATIONAL PROJECT MANAGER Work Phone: [facility] 06-07-2022 08:31-0400 Systolic blood pressure 131 mm[Hg] Lindsay Jose THERAPEUTIC SALES SPECIALIST.INTERNATIONAL PROJECT MANAGER Work Phone: [facility] 05-05-2022 05:09-0400 Diastolic blood pressure 74 mm[Hg] [facility] Work Phone: 05-05-2022 05:09-0400 Heart rate 72 /min [facility] Work Phone: 05-05-2022 05:09-0400 SaO2% (BldA) [Mass fraction] 98 % [facility] Work Phone: 05-05-2022 05:09-0400 Systolic blood pressure 130 mm[Hg] [facility] Work Phone: 05-05-2022 00:58-0400 Body height 157.48 cm [facility] Work Phone: 05-05-2022 00:58-0400 Body mass index (BMI) [Ratio] 27.1 kg/m2 [facility] Work Phone: 05-05-2022 00:58-0400 Body temperature 98.2 [degF] [facility] Work Phone: 05-05-2022 00:58-0400 Body weight 67.13 kg [facility] Work Phone: 05-05-2022 00:58-0400 Respiratory rate 15 /min [facility] Work Phone: 03-03-2022 11:23-0400 Body weight 67.41 kg Francy Bernard APRN.INTERNATIONAL PROJECT MANAGER Work Phone: [facility] 03-03-2022 11:23-0400 Diastolic blood pressure 86 mm[Hg] Francy Brenard APRN.INTERNATIONAL PROJECT MANAGER Work Phone: [facility] 03-03-2022 11:23-0400 Heart rate 82 /min Francy Haagen THERAPEUTIC SALES SPECIALIST.INTERNATIONAL PROJECT MANAGER Work Phone: [facility] 03-03-2022 11:23-0400 Respiratory rate 16 /min Francy Haagen THERAPEUTIC SALES SPECIALIST.INTERNATIONAL PROJECT MANAGER Work Phone: [facility] 03-03-2022 11:23-0400 SaO2% (BldA) [Mass fraction] 99 % Francy Haagen THERAPEUTIC SALES SPECIALIST.INTERNATIONAL PROJECT MANAGER Work Phone: [facility] 03-03-2022 11:23-0400 Systolic blood pressure 136 mm[Hg] Francy Haagen THERAPEUTIC SALES SPECIALIST.INTERNATIONAL PROJECT MANAGER Work Phone: [facility] 02-01-2022 08:51-0400 Body temperature 97.3 [degF] Wm Rayo MD Work Phone: [facility] 02-01-2022 08:51-0400 Body weight 69.85 kg Wm Rayo MD Work Phone: [facility] 02-01-2022 08:51-0400 Diastolic blood pressure 86 mm[Hg] Wm Rayo MD Work Phone: [facility] 02-01-2022 08:51-0400 Heart rate 87 /min Wm Rayo MD Work Phone: [facility] 02-01-2022 08:51-0400 Respiratory rate 20 /min Wm Rayo MD Work Phone: [facility] 02-01-2022 08:51-0400 SaO2% (BldA) [Mass fraction] 100 % Wm Rayo MD Work Phone: [facility] 02-01-2022 08:51-0400 Systolic blood pressure 122 mm[Hg] Wm Rayo MD Work Phone: [facility] 01-27-2022 07:48-0400 Body weight 60.33 kg Francy Haagen THERAPEUTIC SALES SPECIALIST.INTERNATIONAL PROJECT MANAGER Work Phone: [facility] 01-27-2022 07:48-0400 Diastolic blood pressure 78 mm[Hg] Francy Bernard THERAPEUTIC SALES SPECIALIST.INTERNATIONAL PROJECT MANAGER Work Phone: [facility] 01-27-2022 07:48-0400 Heart rate 107 /min Francy Bernard THERAPEUTIC SALES SPECIALIST.INTERNATIONAL PROJECT MANAGER Work Phone: [facility] 01-27-2022 07:48-0400 Respiratory rate 16 /min Francy Bernard THERAPEUTIC SALES SPECIALIST.INTERNATIONAL PROJECT MANAGER Work Phone: [facility] 01-27-2022 07:48-0400 SaO2% (BldA) [Mass fraction] 96 % Francy Bernard THERAPEUTIC SALES SPECIALIST.INTERNATIONAL PROJECT MANAGER Work Phone: [facility] 01-27-2022 07:48-0400 Systolic blood pressure 120 mm[Hg] Francy Bernard THERAPEUTIC SALES SPECIALIST.INTERNATIONAL PROJECT MANAGER Work Phone: [facility] Encounters Encounter Date Encounter Type Care Provider Facility Start: 08-30-2025 End: 08-30-2025 ambulatory [facility] Facility:[facility] Start: 08-30-2025 Encounter for gynecological examination (general) (routine) without abnormal findings JANELLE BERMUDEZAURELIA [facility] Start: 07-09-2025 End: 07-09-2025 Follow-up encounter Lindsay Parks APRN.CNM Work Phone: OB/Gynecology Start: 07-09-2025 End: 07-09-2025 Telephone encounter Ana Luisa Jimenes MD Work Phone: OB/Gynecology Comment on above: Results Start: 07-05-2025 End: 07-05-2025 Patient encounter procedure Lindsay Parks APRN.CNDelores Work Phone: OB/Gynecology Comment on above: Vaginal discharge (P rimary Dx); Screen for STD (sexually transmitted disease) Start: 07-05-2025 End: 07-05-2025 ambulatory [facility] Facility:[facility] Start: 07-04-2025 End: 07-04-2025 Telephone encounter Lydia Godoy MD Work Phone: OB/Gynecology Start: 07-03-2025 End: 07-03-2025 Patient encounter procedure Martinez Garcia MD Work Phone: [facility] [place] Comment on above: URI, acute (Primary Dx); Screening for depression; Severe depression (HCC); Primary hypertension; Mixed hyperlipidemia; Coronary artery disease involving [place] coronary artery of [place] heart with angina pectoris; Raynaud's phenomenon without gangrene; COPD with chronic bronchitis (HCC); Centrilobular emphysema (HCC); Mild intermittent asthma with acute exacerbation (HCC); Gastroesophageal reflux disease, unspecified whether esophagitis present; History of substance abuse (HCC); Generalized abdominal pain; Syncope, unspecified syncope type; Simple endometrial hyperplasia without atypia; Thrombocytosis; Leukocytosis, unspecified type; Low iron; Vitamin B12 deficiency Start: 07-03-2025 End: 07-03-2025 ambulatory MARTINEZ GARCIA Facility:[facility] Start: 06-26-2025 End: 06-27-2025 Refill Martinez Garcia MD Work Phone: [facility] Comment on above: Refill Request Start: 06-21-2025 End: 06-21-2025 Emergency department patient visit Dr. Martinez Garcia MD Work Phone: -Emergency Department Work Phone: Start: 06-20-2025 End: 06-20-2025 Follow-up encounter Amita Pope APRN.CNP Work Phone: [facility] [place] Start: 06-18-2025 End: 06-28-2025 Telephone encounter Amita Pope APRN.CNP Work Phone: [facility] [place] Comment on above: Insurance Authorizat ion (Metronidazole) Start: 06-18-2025 End: 06-18-2025 Subsequent hospital visit by physician Xr [facility] [place] Work Phone: Radiology Comment on above: Thumb pain, left [M7 9.645] Start: 06-18-2025 End: 06-18-2025 Office outpatient visit 25 minutes Amita Pope APRN.CNP Work Phone: [facility] [place] Comment on above: Iron deficiency anem ia, unspecified iron deficiency anemia type (Primary Dx); Rectal bleeding; Rosacea; Mixed hyperlipidemia; Coronary artery disease involving [place] coronary artery of [place] heart with angina pectoris; Primary hypertension; COPD with chronic bronchitis (HCC); Screening for diabetes mellitus; Thumb pain, left Start: 06-18-2025 End: 06-18-2025 ambulatory MARTINEZ GARCIA Facility:[facility] Start: 06-17-2025 End: 06-17-2025 ambulatory Martinez Garcia MD Work Phone: Family [facility] [place] Comment on above: Rectal Bleeding Start: 06-07-2025 End: 06-07-2025 Office outpatient visit 25 minutes Kim Kebede MD Work Phone: [facility] [place] Comment on above: URI, acute (Primary Dx); Chronic obstructive pulmonary disease with acute exacerbation (HCC) Start: 06-07-2025 End: 06-07-2025 ambulatory MARTINEZ GARCIA Facility:[facility] Start: 04-25-2025 End: 04-25-2025 Refill Martinez Garcia MD Work Phone: [facility] [place] Comment on above: requesting medicatio n that is (Venlafaxine ER 150 mg 24 hr tablet); Refill Request Start: 02-12-2025 End: 03-15-2025 ambulatory Martinez Garcia MD Work Phone: [facility] [place] Start: 02-04-2025 End: 02-04-2025 Telephone encounter Devin Donald DO Work Phone: Hematology/Oncology Comment on above: Results Start: 01-29-2025 End: 01-29-2025 ambulatory AMITA POPE Facility:[facility] Start: 01-29-2025 End: 01-29-2025 Office outpatient visit 15 minutes Amita Pope THERAPEUTIC SALES SPECIALIST.INTERNATIONAL PROJECT MANAGER Work Phone: Family [facility] [place] Comment on above: Other iron deficienc y anemia (Primary Dx); Candidiasis; Respiratory infection; Primary hypertension Start: 01-25-2025 End: 01-25-2025 ambulatory Devin Donald DO Work Phone: Hematology/Oncology Comment on above: Leukocytosis, unspec ified type (Primary Dx); Thrombocytosis Start: 01-25-2025 End: 01-25-2025 Patient encounter procedure Devin Donald DO Work Phone: Hematology/Oncology Start: 01-15-2025 End: 01-15-2025 Follow-up encounter Amita Pope THERAPEUTIC SALES SPECIALIST.INTERNATIONAL PROJECT MANAGER Work Phone: [facility] [place] Comment on above: Leukocytosis, unspec ified type (Primary Dx) Start: 01-15-2025 End: 01-15-2025 Telephone encounter José Pressley MD Work Phone: Hematology/Oncology Comment on above: New Patient Start: 01-14-2025 End: 01-14-2025 ambulatory [facility] Facility:[facility] Start: 01-14-2025 End: 01-14-2025 Office outpatient visit 15 minutes Amita Pengan THERAPEUTIC SALES SPECIALIST.INTERNATIONAL PROJECT MANAGER Work Phone: [facility] [place] Comment on above: Candidiasis (Primary Dx); Other acute recurrent sinusitis Start: 01-14-2025 End: 01-14-2025 Telephone encounter Amita Pope THERAPEUTIC SALES SPECIALIST.INTERNATIONAL PROJECT MANAGER Work Phone: [facility] [place] Comment on above: Patient Update; Appo intment Start: 01-03-2025 End: 01-04-2025 Follow-up encounter Amita Pope THERAPEUTIC SALES SPECIALIST.INTERNATIONAL PROJECT MANAGER Work Phone: [facility] [place] Comment on above: Leukocytosis, unspec ified type (Primary Dx) Start: 01-03-2025 End: 01-03-2025 ambulatory [facility] Facility:[facility] Start: 01-03-2025 End: 01-03-2025 Office outpatient visit 25 minutes Amita A Suppan THERAPEUTIC SALES SPECIALIST.INTERNATIONAL PROJECT MANAGER Work Phone: [facility] [place] Comment on above: Chronic low back alexandra n with sciatica, sciatica laterality unspecified, unspecified back pain laterality (Primary Dx); Respiratory infection; Hypomagnesemia Start: 01-02-2025 End: 01-02-2025 Telephone encounter Martinez Garcia MD Work Phone: [facility] [place] Comment on above: ER F/U Start: 12-31-2024 End: 12-31-2024 Refill Martinez Garcia MD Work Phone: [facility] Comment on above: Refill Request Start: 12-28-2024 End: 12-29-2024 Emergency department patient visit GI BAILEY Facility:[facility] Start: 12-27-2024 ambulatory Lisa Plasenciaan [facility] Start: 12-26-2024 ambulatory Daphne Hernández [facility] Start: 12-26-2024 End: 12-27-2024 Evaluation and management of inpatient Daphne Hernández Facility:[facility] Start: 12-17-2024 End: 12-17-2024 ambulatory MARTINEZ GARCIA Facility:[facility] Start: 12-17-2024 End: 12-17-2024 Patient encounter procedure Lindsay Ashley APRN.CNP Work Phone: [facility] Comment on above: Acute otitis media, unspecified otitis media type (Primary Dx); COPD with exacerbation (HCC) Start: 10-26-2024 End: 11-13-2024 Refill Martinez Garcia MD Work Phone: [facility] Comment on above: Refill Request Start: 10-02-2024 End: 10-03-2024 Emergency department patient visit Angel Luis Bellamy Facility:[facility] Start: 09-20-2024 End: 09-20-2024 ambulatory Cam Jamaal MINER Facility:[facility] [place] Start: 09-12-2024 End: 09-13-2024 Emergency department patient visit Martinez Garcia Facility:[facility] Start: 08-03-2024 End: 08-03-2024 Refill Martinez Garcia MD Work Phone: [facility] Comment on above: Refill Request Start: 07-13-2024 End: 07-13-2024 Refill Martinez Garcia MD Work Phone: [facility] Comment on above: Refill Request Start: 04-19-2024 Telephone encounter Martinez Garcia MD Work Phone: [facility] Comment on above: Patient Question Start: 04-03-2024 Telephone encounter Martinez Garcia MD Work Phone: [facility] Comment on above: Orders Start: 03-27-2024 End: 03-27-2024 Patient encounter procedure Delores Chowdhury PA-C Work Phone: [facility] Comment on above: Coronary artery dise ase involving [place] coronary artery of [place] heart with angina pectoris (HCC) (Primary Dx); Mixed hyperlipidemia; Primary hypertension; Raynaud's phenomenon without gangrene; Centrilobular emphysema (HCC); COPD with chronic bronchitis (HCC); Mild intermittent asthma with acute exacerbation; Subcutaneous emphysema resulting from a procedure, sequela; Tobacco use disorder; Marijuana use; Polysubstance abuse (HCC); Gastroesophageal reflux disease, unspecified whether esophagitis present; PUD (peptic ulcer disease); Moderate major depression ([facility]); Anxiety state; Simple endometrial hyperplasia without atypia; Normocytic anemia; Dysmenorrhea; Metrorrhagia Start: 03-14-2024 ambulatory Martinez Garcia MD Work Phone: Internal Medicine [facility] Start: 03-14-2024 Telephone encounter Martinez Garcia MD Work Phone: [facility] Comment on above: Refill Request; Futu re Appointment Start: 12-19-2023 Refill Martinez Garcia MD Work Phone: [facility] Comment on above: Refill Request Start: 12-08-2023 End: 12-08-2023 Emergency department patient visit [facility] Work Phone: Start: 12-08-2023 End: 12-08-2023 Patient encounter procedure Nicci Neal APRN.CNP Work Phone: [facility] Comment on above: Pain in both lower l egs (Primary Dx); Discoloration of skin of lower leg Start: 11-14-2023 End: 11-14-2023 Emergency department patient visit [facility] Work Phone: Start: 08-11-2023 End: 08-11-2023 Subsequent hospital visit by physician [facility] Work Phone: Radiology Comment on above: Dysmenorrhea [N94.6] Start: 08-04-2023 End: 08-04-2023 Patient encounter procedure Janelle Leahy THERAPEUTIC SALES SPECIALIST.CNM Work Phone: OB/Gynecology Comment on above: Dysmenorrhea (Primar y Dx); Menorrhagia, premenopausal; Pelvic pain in female Start: 08-01-2023 Refill Martinez Garcia MD Work Phone: [facility] Comment on above: Refill Request Start: 08-01-2023 End: 08-01-2023 Emergency department patient visit [facility] Work Phone: Start: 06-14-2023 End: 06-14-2023 Emergency department patient visit [facility] Work Phone: Start: 02-18-2023 Refill Martinez Garcia MD Work Phone: [facility] Comment on above: Refill Request Start: 12-02-2022 Telephone encounter Angel Luis hawley MD Work Phone: Orthopaedics Comment on above: Patient Question Start: 11-30-2022 Patient Outreach Macy Guerrero RN Work Phone: [employer] Comment on above: Transition Of Care ( TCM Initial Hospital Discharge 11/29/2022) Start: 11-24-2022 End: 11-29-2022 Evaluation and management of inpatient ANYI ARA Facility:[facility] Start: 11-24-2022 Orders Only Angel Luis Hernández MD Work Phone: Orthopaedics Comment on above: Infection of hand (P rimary Dx) Start: 11-24-2022 End: 11-24-2022 Emergency department patient visit [facility] Start: 11-22-2022 End: 11-22-2022 Patient encounter procedure Angel Luis Hernández MD Work Phone: Orthopaedics Comment on above: Carpal tunnel syndro me of left wrist (Primary Dx) Start: 11-10-2022 End: 11-10-2022 ambulatory UNKNOWN PROVIDER Facility:[facility] Start: 10-28-2022 Telephone encounter Angel Luis hawley MD Work Phone: Orthopaedics Comment on above: Schedule Surgery Start: 10-28-2022 End: 10-28-2022 Patient encounter procedure Angel Luis Hernández MD Work Phone: Orthopaedics Comment on above: Carpal tunnel syndro me, left Start: 10-13-2022 Telephone encounter Francy mejia APRN.INTERNATIONAL PROJECT MANAGER Work Phone: [facility] [place] Comment on above: Results Start: 10-08-2022 End: 10-08-2022 [facility] Start: 10-08-2022 End: 10-08-2022 Patient encounter procedure Kelley Ramos PA-C Work Phone: [facility] Comment on above: Syncope, unspecified syncope type (Primary Dx) Start: 08-10-2022 End: 08-10-2022 Patient encounter procedure Traci Celis APRN.INTERNATIONAL PROJECT MANAGER Work Phone: [facility] Comment on above: Sinus congestion (Pr imary Dx); Acute cough Start: 06-25-2022 End: 06-25-2022 [facility] Start: 06-07-2022 End: 06-07-2022 Patient encounter procedure Lindsay Jose APRN.INTERNATIONAL PROJECT MANAGER Work Phone: Cardiology Comment on above: Coronary artery dise ase involving [place] coronary artery of [place] heart without angina pectoris (Primary Dx); Primary hypertension; Hyperlipidemia, unspecified hyperlipidemia type; Palpitations; Tobacco use disorder, continuous; CARDOZA (dyspnea on exertion) Start: 05-05-2022 ambulatory Martinez Garcia MD Work Phone: [facility] [place] Start: 05-05-2022 Telephone encounter Tyron may APRN.INTERNATIONAL PROJECT MANAGER Work Phone: [facility] Comment on above: Results Start: 05-05-2022 End: 05-05-2022 [facility] Start: 03-10-2022 Refill Lindsay singleton APRN.INTERNATIONAL PROJECT MANAGER Work Phone: Cardiology Comment on above: Refill Request Start: 03-05-2022 Telephone encounter Francy mejia APRN.INTERNATIONAL PROJECT MANAGER Work Phone: [facility] [place] Comment on above: Results Start: 03-05-2022 End: 03-05-2022 ambulatory Emg 850) Neurology Comment on above: EMG Start: 03-05-2022 End: 03-05-2022 Patient encounter procedure Emg 1 Neur Tim (Max Weight: 850) TIM [facility] Start: 03-03-2022 End: 03-03-2022 Patient encounter procedure Francy Bernard APRN.INTERNATIONAL PROJECT MANAGER Work Phone: [facility] [place] Comment on above: Left elbow pain (Timoteo benton Dx); Skin sensation disturbance Start: 02-15-2022 Refill Martinez Garcia MD Work Phone: [facility] [place] Comment on above: Refill Request Start: 02-01-2022 End: 02-01-2022 Subsequent hospital visit by physician Xr [facility] [place] Work Phone: Radiology Comment on above: Left elbow pain [M25 .522] Start: 02-01-2022 End: 02-01-2022 Patient encounter procedure Wm Rayo MD Work Phone: [facility] Comment on above: Left elbow pain (Timoteo benton Dx); Numbness of fingers Start: 01-27-2022 Telephone encounter Francy mejia APRN.INTERNATIONAL PROJECT MANAGER Work Phone: [facility] [place] Comment on above: Results Start: 01-27-2022 End: 01-27-2022 Patient encounter procedure Francy Bernard APRN.INTERNATIONAL PROJECT MANAGER Work Phone: [facility] [place] Comment on above: Fatigue, unspecified type (Primary Dx); Leukocytosis, unspecified type; Hypokalemia; Primary hypertension; Hyperlipidemia, unspecified hyperlipidemia type; Gastroesophageal reflux disease, unspecified whether esophagitis present Start: 11-14-2021 End: 11-14-2021 Subsequent hospital visit by physician Shan [facility] [place] Work Phone: Radiology Comment on above: Cough [R05.9] Start: 08-31-2018 Patient encounter procedure Lydia Jennings Facility:[facility] Start: 08-03-2018 Patient encounter procedure Lydia Jennings Facility:[facility] Start: 07-06-2018 Patient encounter procedure John Tarango Facility:[facility] Start: 06-08-2018 Patient encounter procedure John Tarango Facility:[facility] Start: 05-11-2018 Patient encounter procedure John Tarango Facility:[facility] Start: 05-08-2018 End: 05-08-2018 Emergency department patient visit Afshan Akin [facility] Facility:[facility] Start: 05-03-2018 Patient encounter procedure John Tarango Facility:[facility] Start: 11-15-2017 Patient encounter procedure John Tarango Facility:[facility] Start: 09-29-2017 Emergency department patient visit Unknown PCP Facility:[facility] Start: 01-15-2011 End: 08-09-2012 Patient encounter status Martinez Garcia MD Work Phone: [facility] Procedures Date Procedure Procedure Detail Performing Clinician Start: 07-05-2025 BACTERIAL VAGINOSIS NAAT Lindsay Parks APRN.CNM Work Phone: Start: 07-05-2025 Iadna chlamydia trachomatis amplified probe tq Lindsay Parks APRN.CNM Work Phone: Start: 07-03-2025 COVID & INFLUENZA A/ B & RSV PCR, ROUTINE Martinez Garcia MD Work Phone: Start: 06-21-2025 Computed tomography of abdomen and pelvis with intravenous contrast Dr. Martinez Garcia MD Work Phone: Start: 06-21-2025 Urnls dip stick/tabl et reagent auto microscopy Dr. Martinez Garcia MD Work Phone: Start: 06-21-[address] Martinez Garcia MD Work Phone: Start: 06-18-2025 Lipid 1996 panel - S weston or Plasma Amita Pope THERAPEUTIC SALES SPECIALIST.INTERNATIONAL PROJECT MANAGER Work Phone: Start: 03-27-2024 Adult depression scr eening assessment Mratinez Garcia MD Work Phone: Start: 11-14-2023 Bacterial nucleic ac id assay Start: 11-14-2023 Chlamydia trachomati s (PCR) Start: 08-11-2023 Us transvaginal Megha Leahy THERAPEUTIC SALES SPECIALIST.CNM Work Phone: Start: 06-14-2023 Measurement of occul t blood in stool specimen using immunoassay Start: 10-08-2022 Plain chest X-ray Start: 06-25-2022 X-ray of lumbar spin e, two or three views Start: 05-05-2022 CT of abdomen and pe lvis without contrast Start: 03-05-2022 Nerve conduction paris dies 5-6 studies Francy Bernard THERAPEUTIC SALES SPECIALIST.INTERNATIONAL PROJECT MANAGER Work Phone: Start: 02-01-2022 Radex elbow complete minimum 3 views Wm Rayo MD Work Phone: Start: 01-27-2022 Lipid 1996 panel - S weston or Plasma Martinez Garcia MD Work Phone: Start: 11-14-2021 Radiologic exam ches t 2 views Traci Celis APRN.INTERNATIONAL PROJECT MANAGER Work Phone: Start: 09-03-2021 Adult depression scr eening assessment Francy Bernard APRN.INTERNATIONAL PROJECT MANAGER Work Phone: Start: 11-15-2017 Follow-up visit FOLLOW UP Serena Tarango Start: 03-18-2016 Mammography Francy mejia APRN.INTERNATIONAL PROJECT MANAGER Work Phone: Plan of Treatment Date Care Activity Detail Author Start: 06-18-2030 Lipid panel Lipid Screening [facility] Start: 06-18-2028 Diabetes Screening Diabetes Screening [facility] Start: 01-03-2028 Diabetes Screening Diabetes Screening [facility] Start: 12-28-2027 Diabetes Screening Diabetes Screening [facility] Start: 01-27-2027 Lipid 1996 panel - Serum or Plasma Lipid Screening [facility] Start: 01-27-2027 Lipid panel Lipid Screening [facility] Start: 01-27-2027 LIPID SCREEN LIPID SCREEN [facility] Start: 07-03-2026 Annual PCP Team Chronic Disease Visit Annual PCP Team Chronic Disease Visit [facility] Start: 07-03-2026 Hepatitis B Vaccine (1 of 3 - 19+ 3-dose series) Hepatitis B Vaccine (1 of 3 - 19+ 3-dose series) [facility] Comment on above: Postponed from 01/20/1995 (Declined at t his time) Start: 07-03-2026 Urine microalbumin profile DTaP,Tdap,Td Vaccine (1 - Tdap) [facility] Comment on above: Postponed from 01/20/1995 (Declined at t his time) Start: 06-18-2026 Annual PCP Team Chronic Disease Visit Annual PCP Team Chronic Disease Visit [facility] Start: 06-18-2026 Hepatitis B surface antibody level LDL Cholesterol [facility] Start: 01-29-2026 Annual PCP Team Chronic Disease Visit Annual PCP Team Chronic Disease Visit [facility] Start: 01-29-2026 Pneumococcal vaccination Pneumococcal Vaccine (2 of 2 - PCV) [facility] Comment on above: Postponed from 04/10/2015 (Declined at t his time) Start: 01-29-2026 Screening for malignant neoplasm of colon Colorectal Cancer Screening [facility] Comment on above: Postponed from 01/20/2021 (Declined at t his time) Start: 01-14-2026 Annual PCP Team Chronic Disease Visit Annual PCP Team Chronic Disease Visit [facility] Start: 01-03-2026 Annual PCP Team Chronic Disease Visit Annual PCP Team Chronic Disease Visit [facility] Start: 12-17-2025 BP Controlled (<130/80) BP Controlled (<130/80) [facility] Start: 11-27-2025 DIABETES SCREEN DIABETES SCREEN [facility] Start: 11-27-2025 Diabetes Screening Diabetes Screening [facility] Start: 10-12-2025 DIABETES SCREEN DIABETES SCREEN [facility] Start: 10-02-2025 End: 10-02-2025 Patient encounter procedure 10/02/2025 1:45 PM EST Office Visit General Surgery [address] [place] [address] Anaya Capellan, DO [address] [place] [address] Fixing or helping with the pain in my thumb General Surgery Comment on above: Fixing or helping with the pain in my th umb Start: 09-06-2025 End: 09-06-2025 Patient encounter procedure 09/06/2025 11:30 AM EDT Office Visit OB/Gynecology [address] [place] [address] Janelle Leahy APRN.CNM [address] [place] [address] annual exam and ?menopause OB/Gynecology Comment on above: annual exam and ?menopause Start: 08-30-2025 End: 08-30-2025 Patient encounter procedure 08/30/2025 11:30 AM EDT Office Visit OB/Gynecology [address] [place] [address] Janelle Leahy APRN.CNM [address] [place] [address] annual exam OB/Gynecology Comment on above: annual exam Start: 08-14-2025 End: 11-13-2025 CBC W Auto Differential panel - Blood COMPLETE BLOOD COUNT AND DIFFERENTIAL Lab Routine Thrombocytosis Leukocytosis, unspecified type Expected: 08/14/2025, Expires: 11/13/2025 [facility] Work Phone: Comment on above: Expected: 08/14/2025, Expires: Start: 08-14-2025 End: 11-13-2025 Cobalamin (Vitamin B12) [Mass/volume] in Serum or Plasma VITAMIN B12 Lab Routine Vitamin B12 deficiency Expected: 08/14/2025, Expires: 11/13/2025 [facility] Comment on above: Expected: 08/14/2025, Expires: Start: 08-14-2025 End: 11-13-2025 Hepatic function 2000 panel - Serum or Plasma HEPATIC FUNCTION PNL Lab Routine Mixed hyperlipidemia Expected: 08/14/2025, Expires: 11/13/2025 [facility] Comment on above: Expected: 08/14/2025, Expires: Start: 08-14-2025 End: 11-13-2025 Lipid 1996 panel - Serum or Plasma LIPID PANEL, FASTING Lab Routine Mixed hyperlipidemia Expected: 08/14/2025, Expires: 11/13/2025 [facility] Comment on above: Expected: 08/14/2025, Expires: Start: 07-15-2025 End: 07-15-2025 Patient encounter procedure General Surg [place] Comment on above: CONSULT: Iron deficiency anemia, unspeci fied iron deficiency anemia type [D50.9]; Rectal bleeding; hemorrhoids. No previous colonoscopy. 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 Start: 07-08-2025 Influenza vaccination [facility] Start: 07-05-2025 End: 07-05-2025 Patient encounter procedure Mammogram Comment on above: Yeast infection Start: 07-03-2025 End: 07-03-2025 Patient encounter procedure [facility] [place] Comment on above: 6 month f/u 6 month f/u-med refi lls Start: 06-24-2025 End: 06-24-2025 Patient encounter procedure 06/24/2025 2:30 PM EDT Office Visit General Surgery [address] [place], [place] [id number] Beata Lundberg MD [address] [place] [phone] matthieu deficiency anemia, unspecified iron deficiency anemia type [D50.9]; Rectal bleeding [K62.5] General Surgery Comment on above: matthieu deficiency anemia, unspecified iron deficiency anemia type [D50.9]; Rectal bleeding [K62.5] Start: 06-23-2025 LIPID SCREEN LIPID SCREEN [facility] Start: 06-21-2025 [facility] Start: 06-18-2025 End: 09-16-2025 Cobalamin (Vitamin B12) [Mass/volume] in Serum or Plasma [facility] Comment on above: Expected: 06/18/2025, Expires: Start: 06-18-2025 End: 09-16-2025 Comprehensive metabolic 2000 panel - Serum or Plasma [facility] Work Phone: Comment on above: Expected: 06/18/2025, Expires: Start: 06-18-2025 End: 09-16-2025 Iron and Iron binding capacity panel - Serum or Plasma [facility] Comment on above: Expected: 06/18/2025, Expires: Start: 06-18-2025 End: 09-16-2025 LIPID PANEL, NONFASTING [facility] Comment on above: Expected: 06/18/2025, Expires: 5 Start: 06-18-2025 End: 09-16-2025 Thyrotropin [Units/volume] in Serum or Plasma [facility] Comment on above: Expected: 06/18/2025, Expires: 5 Start: 06-18-2025 End: 07-18-2026 XR Hand - left PA and Lateral and Oblique [facility] Comment on above: Expected: 06/18/2025, Expires: 6 Start: 06-18-2025 End: 06-18-2025 Patient encounter procedure 06/18/2025 9:40 AM EDT Office Visit [facility] [address] [place], [place] [id number] Amita Pope THERAPEUTIC SALES SPECIALIST.INTERNATIONAL PROJECT MANAGER [address] [place], [place] [id number] Rectal Bleeding; See Nurse Triage Note [facility] Comment on above: Rectal Bleeding; See Nurse Triage Note Start: 05-06-2025 Influenza vaccination Influenza Vaccine (#1) Bob White Jomar rendon Comment on above: Postponed from 07/08/2024 (Declined at t his time) Start: 03-27-2025 Annual PCP Team Chronic Disease Visit Annual PCP Team Chronic Disease Visit [facility] Start: 03-27-2025 Depression Screening Depression Screening [facility] Start: 03-03-2025 DIABETES SCREEN DIABETES SCREEN [facility] Start: 01-29-2025 End: 01-29-2025 Patient encounter procedure 01/29/2025 1:20 PM EDT Office Visit [facility] [address] [facility], [place] [id number] Amita Pope, THERAPEUTIC SALES SPECIALIST.INTERNATIONAL PROJECT MANAGER [address] [place], [place] [id number] 2 week f/u [facility] [place] Comment on above: 2 week f/u Start: 01-27-2025 DIABETES SCREEN DIABETES SCREEN [facility] Start: 01-25-2025 End: 04-26-2025 BCR/ABL1 P210 AND P190 DIAGNOSTIC PCR BLOOD [facility] Comment on above: Expected: 01/25/2025, Expires: Start: 01-25-2025 End: 04-26-2025 Ferritin [Mass/volume] in Serum or Plasma [facility] Comment on above: Expected: 01/25/2025, Expires: Start: 01-25-2025 End: 04-26-2025 Iron and Iron binding capacity panel - Serum or Plasma [facility] Comment on above: Expected: 01/25/2025, Expires: Start: 01-25-2025 End: 04-26-2025 MYELOPROLIFERATIVE NEOPLASM PANEL BLOOD [facility] Work Phone: Comment on above: Expected: 01/25/2025, Expires: Start: 01-25-2025 End: 01-25-2025 ambulatory 01/25/2025 1:30 PM EDT Visit (SP) Office Hematology/Oncology [address] [place] [address] Devin Donald DO [address] [place] [address] ANESTHESIOLOGY FELLOW/Leukocytosis, unspecified type [D72.829] REFERRED BY NIK/1ST AVAILANLE* Hematology/Oncolog y Comment on above: ANESTHESIOLOGY FELLOW/Leukocytosis, unspecified type [D72.8 29] REFERRED BY NIK/1ST AVAILANLE* Start: 01-14-2025 End: 01-14-2025 Patient encounter procedure 01/14/2025 2:40 PM EDT Office Visit Family [facility] [address] [place] [address] Amita Pope APRN.INTERNATIONAL PROJECT MANAGER [address] [place] [address] Thrush and feels like Sinus Infection is coming back. See TE 01/14/25 [facility] [place] Comment on above: Thrush and feels like Sinus Infection is coming back. See TE 01/14/25 Start: 01-10-2025 End: 04-11-2025 CBC W Auto Differential panel - Blood COMPLETE BLOOD COUNT AND DIFFERENTIAL Lab Routine Leukocytosis, unspecified type Expected: 01/10/2025, Expires: 04/11/2025 [facility] Work Phone: Comment on above: Expected: 01/10/2025, Expires: Start: 01-03-2025 End: 01-03-2025 Patient encounter procedure 01/03/2025 1:20 PM EST Office Visit [facility] [address] [place] [address] Amita Pope APRN.INTERNATIONAL PROJECT MANAGER [address] [place] [address] ER f/u for weakness, syncope, cough-[facility] ER 12/26/24 and [facility] on 12/28/24 (see phone encounter 01/02) [facility] [place] Comment on above: ER f/u for weakness, syncope, cough-[facility] ER 12/26/24 and [facility] on 12/28/24 (see phone encounter 01/02) Start: 08-04-2024 BP Controlled (<130/80) BP Controlled (<130/80) [facility] Start: 07-08-2024 Influenza vaccination [facility] Start: 05-24-2024 End: 05-24-2024 Patient encounter procedure 05/24/2024 3:30 PM EDT Office Visit Vasculary Surgery [address] [facility] [place] [address] Raynaud's phenomenon without gangrene [I73.00] Vasculary Surgery Comment on above: Raynaud's phenomenon without gangrene [I 73.00] Start: 04-30-2024 End: 04-30-2024 Patient encounter procedure 04/30/2024 2:20 PM EDT Office Visit [facility] [place] [address] [place] [address] Delores Chowdhury PA-C [address] [place] [address] 4 week follow up [facility] [place] Comment on above: 4 week follow up Start: 04-24-2024 End: 04-24-2024 Patient encounter procedure 04/24/2024 3:30 PM EDT Office Visit OB/Gynecology [address] [place] [address] Lisandra Velazquez APRN.INTERNATIONAL PROJECT MANAGER [address] [place] [address] annual OB/Gynecology Comment on above: annual Start: 04-19-2024 End: 04-19-2024 Patient encounter procedure Vasculary [facility] Comment on above: Raynaud's phenomenon without gangrene [I 73.00] Start: 03-29-2024 End: 06-28-2024 Cobalamin (Vitamin B12) [Mass/volume] in Serum or Plasma VITAMIN B12 Lab Routine Normocytic anemia Dysmenorrhea Metrorrhagia Expected: 03/29/2024, Expires: 06/28/2024 [facility] Comment on above: Expected: 03/29/2024, Expires: Start: 03-29-2024 End: 06-28-2024 Ferritin [Mass/volume] in Serum or Plasma FERRITIN Lab Routine PUD (peptic ulcer disease) Normocytic anemia Dysmenorrhea Metrorrhagia Expected: 03/29/2024, Expires: 06/28/2024 [facility] Comment on above: Expected: 03/29/2024, Expires: Start: 03-29-2024 End: 06-28-2024 Folate [Mass/volume] in Serum or Plasma FOLATE, SERUM Lab Routine Normocytic anemia Dysmenorrhea Metrorrhagia Expected: 03/29/2024, Expires: 06/28/2024 [facility] Comment on above: Expected: 03/29/2024, Expires: 4 Start: 03-29-2024 End: 06-28-2024 Iron and Iron binding capacity panel - Serum or Plasma IRON AND TIBC Lab Routine PUD (peptic ulcer disease) Normocytic anemia Dysmenorrhea Metrorrhagia Expected: 03/29/2024, Expires: 06/28/2024 [facility] Comment on above: Expected: 03/29/2024, Expires: Start: 03-29-2024 End: 06-28-2024 Thyrotropin [Units/volume] in Serum or Plasma THYROID STIMULATING HORMONE Lab Routine Normocytic anemia Dysmenorrhea Metrorrhagia Expected: 03/29/2024, Expires: 06/28/2024 [facility] Comment on above: Expected: 03/29/2024, Expires: Start: 03-27-2024 End: 06-26-2024 CBC W Auto Differential panel - Blood COMPLETE BLOOD COUNT AND DIFFERENTIAL Lab Routine Coronary artery disease involving [place] coronary artery of [place] heart with angina pectoris (HCC) Primary hypertension Anxiety state Expected: 03/27/2024, Expires: 06/26/2024 [facility] Comment on above: Expected: 03/27/2024, Expires: Start: 03-27-2024 End: 06-26-2024 Comprehensive metabolic 2000 panel - Serum or Plasma COMPREHENSIVE METABOLIC PANEL Lab Routine Coronary artery disease involving [place] coronary artery of [place] heart with angina pectoris (HCC) Primary hypertension Anxiety state Expected: 03/27/2024, Expires: 06/26/2024 [facility] Comment on above: Expected: 03/27/2024, Expires: 4 Start: 03-27-2024 End: 06-26-2024 Lipid 1996 panel - Serum or Plasma LIPID PANEL BASIC Lab Routine Coronary artery disease involving [place] coronary artery of [place] heart with angina pectoris (HCC) Mixed hyperlipidemia Expected: 03/27/2024, Expires: 06/26/2024 [facility] Comment on above: Expected: 03/27/2024, Expires: Start: 03-27-2024 End: 06-26-2024 Magnesium [Mass/volume] in Serum or Plasma MAGNESIUM Lab Routine Coronary artery disease involving [place] coronary artery of [place] heart with angina pectoris (HCC) Gastroesophageal reflux disease, unspecified whether esophagitis present Expected: 03/27/2024, Expires: 06/26/2024 [facility] Comment on above: Expected: 03/27/2024, Expires: Start: 03-27-2024 End: 03-27-2024 Patient encounter procedure 03/27/2024 1:00 PM EDT Office Visit [facility] [place] [address] [place] [address] Delores Chowdhury PA-C [address] [place] [address] yearly physical [facility] Comment on above: yearly physical Start: 03-13-2024 HPV TESTING HPV TESTING [facility] Start: 03-13-2024 PAP TESTING PAP TESTING [facility] Start: 03-13-2024 Screening for malignant neoplasm of cervix [facility] Start: 12-08-2023 [facility] Start: 11-14-2023 End: 11-14-2023 [facility] Start: 11-14-2023 Chlamydia trachomatis (PCR) Chlamydia trachomatis (PCR) [facility] Start: 11-14-2023 Neisseria gonorrhoeae (PCR) Neisseria gonorrhoeae (PCR) [facility] Start: 11-07-2023 Behavioral Health Screening Behavioral Health Screening [facility] Start: 11-07-2023 Depression Assessment Depression Assessment [facility] Start: 10-15-2023 DIABETES SCREEN DIABETES SCREEN [facility] Start: 10-12-2023 ANNUAL PCP TEAM CHRONIC DISEASE VISIT ANNUAL PCP TEAM CHRONIC DISEASE VISIT [facility] Start: 07-08-2023 Covid-19 Vaccine ( season) Covid-19 Vaccine () [facility] Start: 07-08-2023 Influenza vaccination [facility] Start: 03-03-2023 ANNUAL PCP TEAM CHRONIC DISEASE VISIT ANNUAL PCP TEAM CHRONIC DISEASE VISIT [facility] Start: 01-27-2023 ANNUAL PCP TEAM CHRONIC DISEASE VISIT ANNUAL PCP TEAM CHRONIC DISEASE VISIT [facility] Start: 01-27-2023 BP CONTROLLED (<130/80) BP CONTROLLED (<130/80) [facility] in Start: 01-27-2023 Hepatitis B surface antibody level LDL CHOLESTEROL [facility] Start: 11-24-2022 [facility] Start: 11-07-2022 DEPRESSION ASSESSMENT DEPRESSION ASSESSMENT [facility] Start: 10-13-2022 End: 12-13-2022 CBC W Auto Differential panel - Blood CBC + DIFF Lab Routine Leukocytosis, unspecified type Expected: 10/13/2022, Expires: 12/13/2022 [facility] Work Phone: Comment on above: Expected: 10/13/2022, Expires: 3 Start: 10-08-2022 Blood chemistry [facility] Work Phone: Start: 10-08-2022 End: 10-08-2022 [facility] Start: 09-03-2022 Adult depression screening assessment DEPRESSION SCREENING [facility] Start: 09-03-2022 COVID-19 VACCINE (#1) COVID-19 VACCINE (#1) [facility] Comment on above: Postponed from 01/20/1981 (Declined at t his time) Postponed from 07/23 (Declined at this time) Start: 09-03-2022 COVID-19 VACCINE (1) COVID-19 VACCINE (1) [facility] Comment on above: Postponed from 01/20/1981 (Declined at t his time) Start: 07-08-2022 Influenza vaccination [facility] Start: 05-06-2022 Influenza vaccination INFLUENZA (#1) [facility] Comment on above: Postponed from 07/08/2021 (Declined at t his time) Start: 03-05-2022 End: 03-05-2023 CBC W Auto Differential panel - Blood CBC + DIFF Lab Routine Anemia, unspecified type Expected: 03/05/2022, Expires: 03/05/2023 [facility] Work Phone: Comment on above: Expected: 03/05/2022, Expires: 3 Start: 03-05-2022 End: 03-05-2023 FERRITIN BLD FERRITIN BLD Lab Routine Anemia, unspecified type Expected: 03/05/2022, Expires: 03/05/2023 [facility] Work Phone: Comment on above: Expected: 03/05/2022, Expires: 3 Start: 03-05-2022 End: 03-05-2023 Folate [Mass/volume] in Serum or Plasma FOLATE SERUM Lab Routine Anemia, unspecified type Expected: 03/05/2022, Expires: 03/05/2023 [facility] Work Phone: Comment on above: Expected: 03/05/2022, Expires: 3 Start: 03-05-2022 End: 03-05-2023 Hemoglobin.gastrointestinal .lower [Presence] in Stool by Immunoassay FECAL OCCULT BLOOD TEST Lab Routine Anemia, unspecified type Expected: 03/05/2022, Expires: 03/05/2023 [facility] Work Phone: Comment on above: Expected: 03/05/2022, Expires: 3 Start: 03-05-2022 End: 03-05-2023 IRON + TIBC IRON + TIBC Lab Routine Anemia, unspecified type Expected: 03/05/2022, Expires: 03/05/2023 [facility] Work Phone: Comment on above: Expected: 03/05/2022, Expires: 3 Start: 03-05-2022 End: 03-05-2023 VITAMIN B12 BLOOD VITAMIN B12 BLOOD Lab Routine Anemia, unspecified type Expected: 03/05/2022, Expires: 03/05/2023 [facility] Work Phone: Comment on above: Expected: 03/05/2022, Expires: 3 Start: 01-27-2022 End: 03-29-2022 Bacteria identified in Urine by Culture URINE CULTURE Microbiology Routine Abnormal urinalysis Expected: 01/27/2022, Expires: 03/29/2022 [facility] Work Phone: Comment on above: Expected: 01/27/2022, Expires: 2 Start: 01-27-2022 End: 03-29-2022 Basic metabolic 2000 panel - Serum or Plasma BASIC METABOLIC PNL Lab Routine Hypokalemia Expected: 01/27/2022, Expires: 03/29/2022 [facility] Work Phone: Comment on above: Expected: 01/27/2022, Expires: 2 Start: 01-27-2022 End: 03-29-2022 CBC W Auto Differential panel - Blood [facility] Work Phone: Comment on above: Expected: 01/27/2022, Expires: 2 Start: 01-27-2022 End: 03-29-2022 Comprehensive metabolic 2000 panel - Serum or Plasma [facility] Work Phone: Comment on above: Expected: 01/27/2022, Expires: 2 Start: 01-27-2022 End: 03-29-2022 LIPID PANEL, NONFASTING [facility] Work Phone: Comment on above: Expected: 01/27/2022, Expires: 2 Start: 01-27-2022 End: 03-29-2022 Magnesium [Mass/volume] in Serum or Plasma [facility] Work Phone: Comment on above: Expected: 01/27/2022, Expires: 2 Start: 01-27-2022 End: 03-29-2022 T4 FREE/FREE THYROX [facility] Work Phone: Comment on above: Expected: 01/27/2022, Expires: 2 Start: 01-27-2022 End: 03-29-2022 Thyrotropin [Units/volume] in Serum or Plasma [facility] Work Phone: Comment on above: Expected: 01/27/2022, Expires: 2 Start: 01-27-2022 End: 03-29-2022 Urinalysis complete panel - Urine [facility] Work Phone: Comment on above: Expected: 01/27/2022, Expires: 2 Start: 11-07-2021 DEPRESSION ASSESSMENT DEPRESSION ASSESSMENT [facility] Start: 06-23-2021 Hepatitis B surface antibody level LDL CHOLESTEROL [facility] Start: 03-16-2021 COLOGUARD (FIT-DNA) COLOGUARD (FIT-DNA) [facility] Start: 01-20-2021 Colonoscopy COLONOSCOPY [facility] Start: 01-20-2021 COLORECTAL CANCER SCREENING COLORECTAL CANCER SCREENING [facility] Start: 01-20-[address] COLONOGRAPHY [facility] Start: 01-20-2021 FECAL OCCULT BLOOD FECAL OCCULT BLOOD [facility] Start: 01-20-2021 Screening for malignant neoplasm of colon [facility] Start: 01-20-2021 SIGMOIDOSCOPY SIGMOIDOSCOPY [facility] Start: 03-18-2017 Mammography [facility] Start: 03-18-2017 Screening for malignant neoplasm of breast Mammogram Screening [facility] Start: 04-10-2015 PNEUMOCOCCAL (2 - PCV) PNEUMOCOCCAL (2 - PCV) [facility] Start: 04-10-2015 [facility] Start: 01-20-2006 Zoledronic acid therapy ALPHA-1 ANTITRYPSIN DEFICIENCY SCREENING [facility] Start: 01-20-1995 Hepatitis B Vaccine (1 of 3 - 19+ 3-dose series) Hepatitis B Vaccine (1 of 3 - 19+ 3-dose series) [facility] Start: 01-20-1995 Urine microalbumin profile [facility] Start: 01-20-1994 BP CONTROLLED (<130/80) BP CONTROLLED (<130/80) [facility] Start: 01-20-1994 Depression Screening Depression Screening [facility] Start: 1975 COVID-19 VACCINE (#1) COVID-19 VACCINE (#1) [facility] Start: 1975 HEPATITIS B (1 of 3 - 3-dose series) HEPATITIS B (1 of 3 - 3-dose series) [facility] Start: 1975 Hepatitis B Vaccine (1 of 3 - 3-dose series) Hepatitis B Vaccine (1 of 3 - 3-dose series) [facility] CBC W Ordered Manual Differential panel - Blood PATHOLOGIST INTERPRETATION WITH CBC AND DIFF Lab Routine Leukocytosis, unspecified type Thrombocytosis 01/25/2025 2:11 PM EDT [facility] Chlamydia trachomatis [place] Replaced by [facility] End: 03-14-2026 DBT Breast - bilateral screening ROB SCREENING [facility] Radiology Routine Encounter for screening mammogram for breast cancer 1 Occurrences starting 02/12/2025 until 03/14/2026 [facility] Work Phone: Comment on above: 1 Occurrences starting 02/12/2025 until 03/14/2026 End: 03-03-2023 EMG(NEURO/NI) EMG(NEURO/NI) EMG Routine Left elbow pain Skin sensation disturbance 1 Occurrences starting 03/03/2022 until 03/03/2023 [facility] Work Phone: Comment on above: 1 Occurrences starting 03/03/2022 until 03/03/2023 End: 04-13-2025 MG Breast Screening ROB SCREENING Radiology Routine Encounter for screening mammogram for breast cancer 1 Occurrences starting 03/14/2024 until 04/13/2025 [facility] Work Phone: Comment on above: 1 Occurrences starting 03/14/2024 until 04/13/2025 Microscopic observat ion [Identifier] in Unspecified specimen by Gram stain Gram Stain [facility] Neisseria gonorrhoea e DNA [Presence] in Genital specimen by ARNOLDO with probe detection [facility] Patient Education [facility] Work Phone: Patient referral [facility] Work Phone: End: 06-04-2023 Screening mammography bi 2-view breast inc cad ROB SCREENING Radiology Routine Encounter for screening mammogram for breast cancer 1 Occurrences starting 05/05/2022 until 06/04/2023 [facility] Work Phone: Comment on above: 1 Occurrences starting 05/05/2022 until 06/04/2023 End: 03-27-2025 US Lower extremity artery - bilateral PVR LEG [facility] Vascular Lab Routine Raynaud's phenomenon without gangrene 1 Occurrences starting 03/27/2024 until 03/27/2025 [facility] Work Phone: Comment on above: 1 Occurrences starting 03/27/2024 until 03/27/2025 End: 09-03-2024 Us transvaginal US FEMALE PELVIS TRANSVAG Radiology Routine Dysmenorrhea Menorrhagia, premenopausal 1 Occurrences starting 08/04/2023 until 09/03/2024 [facility] Work Phone: Comment on above: 1 Occurrences starting 08/04/2023 until 09/03/2024 End: 03-27-2025 US.doppler Extremity arteries - bilateral for physiologic artery study PVR ANK PRESS [facility] Vascular Lab Routine Raynaud's phenomenon without gangrene 1 Occurrences starting 03/27/2024 until 03/27/2025 [facility] Comment on above: 1 Occurrences starting 03/27/2024 until 03/27/2025 Wound Culture Wound Culture [facility] Immunizations Immunization Date Immunization Notes Care Provider Fa cility 11-10-2018 hepatitis A vaccine, adult dosage Francy Bernard THERAPEUTIC SALES SPECIALIST.INTERNATIONAL PROJECT MANAGER Work Phone: [facility] 09-27-2018 influenza virus vacc ine, unspecified formulation Martinez Garcia MD Work Phone: [facility] 04-10-2014 pneumococcal Conjuga te, unspecified formulation Martinez Garcia MD Work Phone: [facility] 04-10-2014 pneumococcal polysaccharide vaccine, 23 valent Francy Bernard THERAPEUTIC SALES SPECIALIST.INTERNATIONAL PROJECT MANAGER Work Phone: [facility] 04-10-2014 [facility]: 04-10-2014 pneumococcal vaccine , unspecified formulation [facility] Payers Date Payer Category Payer Self-pay [id number] 2024 Unknown [employer] [id number] 2024-Present [phone] [address] [place] [address] Other [id number] 2015 Medicaid [id number] 2015 Medicaid [employer] [id number] 2015-Present [phone] [address] [place] [address] Medicaid [id number] 2015 Medicaid [id number] 2015 Unknown [id number] Unknown [id number] Unknown [id number] Unknown [id number] Unknown [id number] Unknown [id number] Unknown [id number] Unknown [id number] Unknown [id number] Unknown [id number] Unknown [id number] Unknown [id number] Unknown [id number] Unknown [id number] Unknown [id number] Unknown [id number] Unknown [id number] Social History Date Type Detail Facility Start: 01-20-1991 End: 01-14-2025 Tobacco smoking status NHIS Smokes tobacco daily [facility] Work Phone: Start: 01-20-1991 History of tobacco use Cigarette Smo ker [facility] Work Phone: Start: 12-07-2021 End: 07-05-2025 Alcohol intake Current non-drinker of alcohol (finding) [facility] Start: 05-05-2020 End: 09-17-2020 History SDOH Alcohol Frequency 1 [facility] Start: 09-17-2020 History SDOH Alcohol Std Drinks 98 [facility] Start: 05-05-2020 End: 06-17-2020 History SDOH Social Connections Phone 2 [facility] Start: 05-05-2020 History SDOH Social Connections Living 5 [facility] Start: 05-05-2020 End: 06-17-2020 History SDOH Physical Activity DPW 3 [facility] Start: 05-05-2020 History SDOH Housing Places Lived 4 [facility] Start: 05-05-2020 Education 21 [facility] Start: 07-21-2020 End: 09-17-2022 Tobacco Comment Father smoked in childhood home, currently lives with a smoker who is willing to quit with patient. [facility] Start: 1975 Sex Assigned At Not on file [facility] Start: 10-15-2021 End: 10-08-2022 Exposure to SARS-CoV-2 (event) Not sure [facility] Start: 05-05-2022 End: 12-08-2023 Tobacco smoking status NHIS Unknown if ever smoked [facility] Start: 06-18-2020 None [facility] Start: 06-18-2020 Spouse/ Signif icant Other [facility] Start: 03-15-2021 Cigarettes [facility] Start: 1975 Sex Assigned At Female W [facility] Start: 07-21-2020 End: 06-18-2025 Cigarettes smoked current (pack per day) - Reported 1 [facility] Start: 07-21-2020 End: 01-14-2025 Tobacco use and exposure Smokeless tobacco non-user [facility] Work Phone: Start: 05-05-2020 End: 06-18-2025 Social connection and isolation panel [facility] Do you belong to any clubs or organizations such as restoration groups, unions, fraternal or athletic groups, or school groups? No [facility] Are you now , , , , never or living with a partner? [facility] How often to you hav e a drink containing alcohol? Never [facility] Work Phone: Start: 10-08-2012 How many standard drinks containing alcohol do you have on a typical day? Patient refused [facility] Work Phone: How hard is it for y ou to pay for the very basics like food, housing, medical care, and heating Somewhat hard [facility] Do you feel stress - tense, restless, nervous, or anxious, or unable to sleep at night because your mind is troubled all the time - these days [OSQ] Very much [facility] (I/We) worried wheth er (my/our) food would run out before (I/we) got money to buy more. Sometimes true [facility] In the past 12 month s, was there a time when you were not able to pay the mortgage or rent on time? Yes [facility] How hard is it for y ou to pay for the very basics like food, housing, medical care, and heating Very hard [facility] (I/We) worried wheth er (my/our) food would run out before (I/we) got money to buy more. Often true [facility] Start: 06-21-2025 Tobacco smoking stat us NHIS Current Heavy tobacco smoker [facility] Are you now , , , , never or living with a partner? Living with partner [facility] Start: 07-02-2025 Gender identity Identifies as female gender (finding) [facility] Start: 07-02-2025 Sexual orientation Bisexual (finding ) [facility] NEGATED: Highlighted row [facility] Functional Status Date Assessment Result Facility 11-29-2022 Are you deaf, or do you have serious difficulty hearing No 11/29/2022 9:41 AM Leon Nascimento RN No [facility] 11-29-2022 Are you blind, or do you have serious difficulty seeing, even when wearing glasses No 11/29/2022 9:41 AM Leon Nascimento RN No [facility] 11-29-2022 Do you have serious difficulty walking or climbing stairs Yes 11/29/2022 9:41 AM Leon Nascimento RN Yes [facility] 11-29-2022 Do you have difficul ty dressing or bathing No 11/29/2022 9:41 AM Leon Nascimento RN No [facility] 11-29-2022 Because of a physica l, mental, or emotional condition, do you have difficulty doing errands alone such as visiting a physician's office or shopping No 11/29/2022 9:41 AM Leon Nascimento RN No [facility] Mental Status Date Assessment Result Facility 08-01-2023 Cognitive function Level Of Cons ciousness Awake;Alert;Appropriate [facility] Work Phone: 11-29-2022 Because of a physica l, mental, or emotional condition, do you have serious difficulty concentrating, remembering, or making decisions No 11/29/2022 9:41 AM Leon Nascimento RN No [facility] 10-08-2022 Cognitive function Level Of Cons ciousness Awake;Alert;Appropriate;Fol lows Commands [facility] Work Phone: Clinical Notes 08-30-2018 to 08-30-2025 Patient InstructionsTelephone Encounter - Nayeli Prakash RN - 07/09/2025 3:19 PM EDTTelephone Encounter - Nayeli Prakash RN - 07/09/2025 3:19 PM Martinez Dubois MD - 07/03/2025 5:34 PM EDT Note Date & Type Note Facility 08-30-2025 Note HNO ID: [id number] Author: AUSTYN BIRD [employer] Service: ? Author Type: Checkout Supervisor Type: Progress Notes Filed: 08/30/2025 13:45 Note Text: Radiology Service Progress Note PATIENT NAME: Bev Webb DATE OF SERVICE: August 30, 2025 TIME: 1:45 PM PATIENT IDENTITY VERIFICATION COMPLETED USING TWO [...] PATIENT PRESENTS WITH AN IMPLANTABLE OR ATTACHED CLERICAL ADVISER: No RADIOLOGY DEPARTMENT: Mammography PERIPHERAL IV DATA: Not applicable SIGNED BY: Austyn Bird [employer] August 30, 2025 1:45 PM [facility] 08-30-2025 Note HNO ID: [id number] Author: JANELLE LEAHY APRN.CNM Service: ? Author Type: Coil Former Type: Progress Notes Filed: 08/30/2025 12:32 Note Text: Treater Helper offered: Patient declines. Bev is a 50 year old who presents for an annual gynecologic exam with complaints, menopausal symptoms. Still get period: No Last period was January 2025 Menopause symptoms: Hot flashes; Night sweats; Vaginal dryness- mood changes Time with current partner: 3yrs Number of lifetime partners: 15 control frequency: Never HPV vaccine: Unsure; HPV:N/A Last pap smear: 03/20/2020 History of abnormal pap: Yes, history of abnormal PAP smears Bothersome pelvic pain: Yes Last mammogram: 2015 - next schedule today after annual exam Patient concerns for STD exposure: Yes: Recent +Trich- treated and needs [facility] OB History Gravida2 Para1 Term1 Preterm0 AB1 Living1 SAB1 IAB0 Ectopic0 Multiple0 Live Births0 Comment: 1 vaginal delivery [place] History LMP: 01/10/2025, Having periods Age at Menarche: 14 Age at First : Age at Menopause: [place] History Comments: Sexual Activity: Yes; Male Contraception: Tubal Ligation, None PAST MEDICAL HISTORY Diagnosis Date Abnormal mammogram, unspecified LEFT BREAST Abnormal Pap smear and cervical HPV (human papillomavirus) CAD (coronary artery disease) 2103 diffuse moderate CAD in the left main and RCA-40-50%, seeing Dr. Chase Centrilobular emphysema (HCC) Chlamydia 1994 Chronic cholecystitis 08/24/2007 Chronic depressive personality disorder Chronic gastric ulcer without mention of hemorrhage, perforation, without mention of obstruction Coitus painful for female 2022 COPD with chronic bronchitis (HCC) Coronary artery disease involving [place] coronary artery of [place] heart with angina pectoris Endometriosis 1997 Generalized anxiety disorder Hemorrhoids History of methicillin resistant staphylococcus aureus (MRSA) HTN (hypertension) Hyperlipidemia Incisional hernia without mention of obstruction or gangrene Iron deficiency anemia, unspecified iron deficiency anemia type Irritable bowel syndrome Lumbago Mixed hyperlipidemia Ovarian cyst 1997 PONV (postoperative nausea and vomiting) Raynaud's phenomenon (by history or observed) Tobacco use disorder, continuous Daily smoker since age 16. Urogenital trichomoniasis 2024 PAST SURGICAL HISTORY Procedure Laterality Date APPENDECTOMY CERVIX UTERI CONIZA LP ELCTRO EXCI 1996 COLPOSCOPY CERVIX VAG LOOP ELTRD BX CERVIX 2019 ENDOMETRIAL BX W/WO ENDOCERVIX BX W/O DILAT [...] Other All through my father's family. SOCIAL HISTORY Social History Tobacco Use Smoking status: Every Day Current packs/day: 1.00 Average packs/day: 1 pack/day for 34.6 years (34.6 ttl pk-yrs) Types: Cigarettes Start date: 01/20/1991 Smokeless tobacco: Never Tobacco comments: Father smoked in childhood home, currently lives with a smoker who is willing to quit with patient. Vaping Use Vaping status: Never Used Substance Use Topics Alcohol use: No Drug use: Yes Types: Marijuana Comment: Smokes 2-3 times a week REVIEW OF SYSTEMS Abdomen: No abdominal pain, nausea, vomiting, diarrhea, or constipation. Positive for bloating and stomach upset all the time. Bladder: No dysuria, gross hematuria, urinary frequency, urinary urgency, or incontinence. Breast: No breast lumps, nipple d/c, overlying skin changes, redness or skin retraction and Positive for soreness. Allergies and current medication updated:Yes SENSITIVE EXAM: The sensitive examination was discussed with the Patient or Patient's Authorized Toddler Nanny. As applicable, any other physician, advance practice provider, medical student, or other health professional student that will be observing or involved in the sensitive examination for education (more content not included)... [facility] 07-25-2025 Note HNO ID: [id number] Author: ?, ?, ? Service: ? Author Type: ? Type: Progress Notes Filed: 07/25/2025 09:54 Note Text: POPULATION HEALTH NAVIGATION OUTREACH Action/FYI Sent my chart Reason for Outreach Care Gap/HCC or Scheduling Wellness Visits Care Gaps due: KAYLIE Patient Contacted: Unable or unnecessary to reach patient: Left message Navigation Signature: Austyn Michaud July 25, 2025 9:53 AM [facility] 07-25-2025 Note Patient Outreach (NE TNAV) CALL,BEV Gerardo ([id number]) 1975 F Date Time Provider Department 07/25/25 NO PCP (HIST) [facility] During your visit today, we recorded the following information about you: Austyn Brennan 07/25/2025 9:54 AM Signed POPULATION HEALTH NAVIGATION OUTREACH Action/FYI Sent my chart Reason for Outreach Care Gap/HCC or Scheduling Wellness Visits Care Gaps due: KAYLIE Patient Contacted: Unable or unnecessary to reach patient: Left message Navigation Signature: Austyn Michaud July 25, 2025 9:53 AM Allergies As of Date: 07/25/2025 Noted Allergy Reaction DOXYCYCLINE 08/16/2006 ENTEX (PHENYLEPHRINE-GUAIFENESIN) [...] HCL) 08/16/2006 2 - Rash Date Reviewed: 07/05/2025 Reviewed by: Ale Anderson MA - Fully Assessed Prescriptions as of 07/25/2025 - atorvastatin (LIPITOR) 40 mg tablet Take 1 tablet by mouth once daily. - pantoprazole DR (PROTONIX) 40 mg tablet TAKE 1 TABLET BY MOUTH ON AN EMPTY STOMACH 1/2 HOUR BEFORE A MEAL TWICE DAILY - venlafaxine (EFFEXOR) 50 mg tablet Take 1 tablet by mouth once daily. - venlafaxine ER (EFFEXOR XR) 150 mg 24 hr capsule Take 1 capsule by mouth once daily. in addition to Venlafaxine 50 mg tablet daily - gabapentin (NEURONTIN) 400 mg capsule Take 1 capsule by mouth three times a day for 180 days. - metroNIDAZOLE (METROGEL) 0.75 % Topical Gel Apply to affected area two times a day. - cetirizine (ZYRTEC) 10 mg tablet Take 1 tablet by mouth once daily. - ferrous sulfate 325 mg (65 mg iron) tablet Take 1 tablet by mouth once daily. - albuterol HFA (VENTOLIN HFA) 90 mcg/actuation inhaler Inhale 2 Puffs as instructed every 4 hours as needed for wheezing/shortness of breath. - nitroglycerin sublingual (NITROQUICK) 0.4 mg SL tablet Dissolve 1 tablet under the tongue every 5 minutes as needed for chest pain. - acetaminophen (TYLENOL) 500 mg tablet Take 2 tablets by mouth every 8 hours as needed for pain. - COMBIVENT RESPIMAT 20-100 mcg/actuation inhaler INHALE 1 PUFF INSTRUCTED FOUR TIMES DAILY NEEDED. Problem List As Of Date 07/25/2025 Noted Resolved Grief reaction [F43.20] 08/16/2006 Anxiety [...] 09/17/2009 04/27/2017 [facility]*01/15/2011 08/09/2012 Class: Chronic Routine gynecological examination [Z01.419] 01/15/2011 08/09/2012 Class: Chronic GERD (gastroesophageal reflux disease) [K21.9] 01/15/2011 PUD (peptic ulcer disease) [K27.9] 01/15/2011 Tinea versicolor [B36.0] 01/29/2011 09/24/2014 Post-inflammatory hyperpigmentation [L81.0] 01/29/2011 09/24/2014 Pruritus [L29.9] 01/29/2011 09/24/2014 Hyperlipidemia [E78.5] 05/22/2014 Coronary artery disease involving [place] benoit*06/06/2014 Lymphadenopathy [R59.1] 06/06/2014 04/27/2017 Herpes simplex infection [B00.9] 03/18/2016 04/27/2017 Marijuana use [F12.90] 06/08/2018 Mild intermittent asthma with acute exacerbatio*06/20/2018 Chest pain [R07.9] 08/30/2018 08/30/2018 Polysubstance abuse (HCC) [F19.10] 08/30/2018 07/03/2025 Primary hypertension [I10] 08/30/2018 Simple endometrial hyperplasia without atypia [*04/27/2019 Raynaud's phenomenon (by history or observed) [* COPD with chronic bronchitis (HCC) [J44.89] Emphysema (subcutaneous) (surgical) resulting f* Centrilobular emphysema (HCC) [J43.2] Tobacco use disorder, continuous [F17.209] Abscess of left hand [L02.512] 11/24/2022 Severe depression (HCC) [F32.2] 07/03/2025 History of substance abuse (HCC) [F19.11] 07/03/2025 Encounter Status:Closed by AUSTYN BRENNAN on 07/25/25 [facility] 07-09-2025 Instructions Nayeli Prakash RN - 07/09/2025 3:21 PM EDT Expedited Partner Treatment Trichomonas: Guide for Partners who Receive Metronidazole Why am I getting this prescription or medication? Trichomonas is a sexually transmitted infection (STI). Although some patients with trichomonas experience symptoms, many do not have any signs or symptoms. Symptoms of trichomonas can include: pain or burning when you pee, fluid/discharge from the vagina, penis, or rectum that smells or looks strange, or pain with sex. You can give trichomonas to others you have sex with; so, it is important to get treatment. Untreated trichomonas can lead to worsening symptoms and a higher chance of getting HIV. It is important to complete the entire treatment for this infection. What is the treatment for trichomonas? The prescription you are given today is for an oral antibiotic called metronidazole. Do NOT take this antibiotic if you have a severe allergy to metronidazole. This antibiotic can be taken with food to help prevent an upset stomach. Side effects can include nausea, vomiting, abdominal pain, diarrhea, metallic taste, and headache. If you experience any symptoms of an allergic reaction such as trouble breathing, chest tightness, closing of the throat, swelling of the lips or tongue, and itchy bumps on your skin, seek medical attention right away. What else should I do? Do not have sex for at least 7 days after you AND your sexual partner have been treated. See a healthcare provider for additional testing for other STIs, including HIV and syphilis. It is important to be tested for other STIs because this medication will only treat trichomonas. Using condoms correctly and consistently during sex is the best way to prevent other STIs. documented in this encounter [facility] 07-09-2025 Telephone encounter Note Please file partner treatment for trich. EPT orders pended. Nayeli Prakash RN Expedited Partner Therapy (EPT) EPT is being prescribed today to the patient s partner(s) as the following conditions have been met: The intended recipient is a sexual partner of Bev E Call. Bev E Call has been diagnosed with trichomoniasis. Bev E Call reports that sexual partner is unable or unlikely to be evaluated or treated by a health professional. EPT is being prescribed for no more than two sexual partners. [facility] 07-09-2025 Miscellaneous Notes Please file partner treatment for trich. EPT orders pended. Nayeli Prakash RN Expedited Partner Therapy (EPT) EPT is being prescribed today to the patient s partner(s) as the following conditions have been met: The intended recipient is a sexual partner of Bev E Call. Bev E Call has been diagnosed with trichomoniasis. Bev E Call reports that sexual partner is unable or unlikely to be evaluated or treated by a health professional. EPT is being prescribed for no more than two sexual partners. documented in this encounter [facility] 07-09-2025 Telephone encounter Note Mychart message sent and Rx. Lindsay Parks APRN.CNM [facility] 07-09-2025 Miscellaneous Notes Romina message sent and Rx. Lindsay Parks APRN.CNM Pt was seen in office on 07/05/25. Pt calling as she saw she was + for Trichomonas. Advised Pt that message would be sent to provider for review and we would be in contact with her. Pt uses [facility] in [place]. Cristiano glabrata RNA Not detected Detected Abnormal Trichomonas vaginalis RNA Not detected Detected Abnormal Please advise. Harmeet Kingsley RN documented in this encounter [facility] 07-09-2025 Telephone encounter Note Pt was seen in office on 07/05/25. Pt calling as she saw she was + for Trichomonas. Advised Pt that message would be sent to provider for review and we would be in contact with her. Pt uses [facility] in [place]. Cristiano glabrata RNA Not detected Detected Abnormal Trichomonas vaginalis RNA Not detected Detected Abnormal Please advise. Harmeet Kingsley RN [facility] 07-05-2025 Note HNO ID: [id number] Author: LINDSAY PARKS APRN.CNM Service: ? Author Type: Coil Former Type: Progress Notes Filed: 07/09/2025 09:31 Note Text: Treater Helper offered: Patient declines. Bev Webb is a 50 year old female who presents for problem visit for vaginal discharge HPI: Presents today with concerns of vaginal discharge and wondering if she has an infection. Also concerned about STDs and would like vaginal testings. 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 Chase Centrilobular emphysema (HCC) Chronic cholecystitis 08/24/2007 Chronic depressive personality disorder Chronic gastric ulcer without mention of hemorrhage, perforation, without mention of obstruction COPD with chronic bronchitis (HCC) Coronary artery disease involving [place] coronary artery of [place] heart with angina pectoris Generalized anxiety disorder Hemorrhoids History of methicillin resistant staphylococcus aureus (MRSA) HTN (hypertension) Hyperlipidemia Incisional hernia without mention of obstruction or gangrene Iron deficiency anemia, unspecified iron deficiency anemia type Irritable bowel syndrome Lumbago Mixed hyperlipidemia PONV (postoperative nausea and vomiting) Raynaud's phenomenon [...] All through my father's family. SOCIAL HISTORY[1] Current Outpatient Medications Medication Sig atorvastatin (LIPITOR) 40 mg tablet Take 1 tablet by mouth once daily. pantoprazole DR (PROTONIX) 40 mg tablet TAKE 1 TABLET BY MOUTH ON AN EMPTY STOMACH 1/2 HOUR BEFORE A MEAL TWICE DAILY venlafaxine (EFFEXOR) 50 mg tablet Take 1 tablet by mouth once daily. venlafaxine ER (EFFEXOR XR) 150 mg 24 hr capsule Take 1 capsule by mouth once daily. in addition to Venlafaxine 50 mg tablet daily gabapentin (NEURONTIN) 400 mg capsule Take 1 capsule by mouth three times a day for 180 days. metroNIDAZOLE (METROGEL) 0.75 % Topical Gel Apply to affected area two times a day. cetirizine (ZYRTEC) 10 mg tablet Take 1 tablet by mouth once daily. ferrous sulfate 325 mg (65 mg iron) tablet Take 1 tablet by mouth once daily. albuterol HFA (VENTOLIN HFA) 90 mcg/actuation inhaler Inhale 2 Puffs as instructed every 4 hours as needed for wheezing/shortness of breath. nitroglycerin sublingual (NITROQUICK) 0.4 mg SL tablet Dissolve 1 tablet under the tongue every 5 minutes as needed for chest pain. acetaminophen (TYLENOL) 500 mg tablet Take 2 tablets by mouth every 8 hours as needed for pain. COMBIVENT RESPIMAT 20-100 mcg/actuation inhaler INHALE 1 PUFF INSTRUCTED FOUR TIMES DAILY NEEDED. No current facility-administered medications for this visit. Allergies As of Date: 07/05/2025 Allergen Noted Reaction DOXYCYCLINE 08/16/2006 ENTEX [PHENYLEPHRINE-GUAIFENESIN] 10/20/2006 ERYTHROMYCIN 08/16/2006 Shortness of Breath FLEXERIL [CYCLOBENZAPRINE HCL] 10/08/2011 Cough OMNICEF [CEFDINIR] 07/11/2014 GI Upset PENICILLIN G 08/16/2006 Intolerance RISPERDAL [RISPERIDONE] 08/16/2006 Swelling ULTRAM [TRAMADOL HCL] 08/16/2006 Swelling VALTREX [VALACYCLOVIR HCL] 08/16/2006 Rash Fully Assessed 07/05/2025 REVIEW OF SYSTEMS Abdomen: (more content not included)... [facility] 07-05-2025 History of Present illness Narrative Treater Helper offered: Patient declines. Bev Webb is a 50 year old female who presents for problem visit for vaginal discharge HPI: Presents today with concerns of vaginal discharge and wondering if she has an infection. Also concerned about STDs and would like vaginal testings. 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 Chase Centrilobular emphysema (HCC) Chronic cholecystitis 08/24/2007 Chronic depressive personality disorder Chronic gastric ulcer without mention of hemorrhage, perforation, without mention of obstruction COPD with chronic bronchitis (HCC) Coronary artery disease involving [place] coronary artery of [place] heart with angina pectoris Generalized anxiety disorder Hemorrhoids History of methicillin resistant staphylococcus aureus (MRSA) HTN (hypertension) Hyperlipidemia Incisional hernia without mention of obstruction or gangrene Iron deficiency anemia, unspecified iron deficiency anemia type Irritable bowel syndrome Lumbago Mixed hyperlipidemia PONV (postoperative nausea and vomiting) Raynaud's phenomenon [...] All through my father's family. SOCIAL HISTORY[1] Current Outpatient Medications Medication Sig atorvastatin (LIPITOR) 40 mg tablet Take 1 tablet by mouth once daily. pantoprazole DR (PROTONIX) 40 mg tablet TAKE 1 TABLET BY MOUTH ON AN EMPTY STOMACH 1/2 HOUR BEFORE A MEAL TWICE DAILY venlafaxine (EFFEXOR) 50 mg tablet Take 1 tablet by mouth once daily. venlafaxine ER (EFFEXOR XR) 150 mg 24 hr capsule Take 1 capsule by mouth once daily. in addition to Venlafaxine 50 mg tablet daily gabapentin (NEURONTIN) 400 mg capsule Take 1 capsule by mouth three times a day for 180 days. metroNIDAZOLE (METROGEL) 0.75 % Topical Gel Apply to affected area two times a day. cetirizine (ZYRTEC) 10 mg tablet Take 1 tablet by mouth once daily. ferrous sulfate 325 mg (65 mg iron) tablet Take 1 tablet by mouth once daily. albuterol HFA (VENTOLIN HFA) 90 mcg/actuation inhaler Inhale 2 Puffs as instructed every 4 hours as needed for wheezing/shortness of breath. nitroglycerin sublingual (NITROQUICK) 0.4 mg SL tablet Dissolve 1 tablet under the tongue every 5 minutes as needed for chest pain. acetaminophen (TYLENOL) 500 mg tablet Take 2 tablets by mouth every 8 hours as needed for pain. COMBIVENT RESPIMAT 20-100 mcg/actuation inhaler INHALE 1 PUFF INSTRUCTED FOUR TIMES DAILY NEEDED. No current facility-administered medications for this visit. Allergies As of Date: 07/05/2025 Allergen Noted Reaction DOXYCYCLINE 08/16/2006 ENTEX [PHENYLEPHRINE-GUAIFENESIN] 10/20/2006 ERYTHROMYCIN 08/16/2006 Shortness of Breath FLEXERIL [CYCLOBENZAPRINE HCL] 10/08/2011 Cough OMNICEF [CEFDINIR] 07/11/2014 GI Upset PENICILLIN G 08/16/2006 Intolerance RISPERDAL [RISPERIDONE] 08/16/2006 Swelling ULTRAM [TRAMADOL HCL] 08/16/2006 Swelling VALTREX [VALACYCLOVIR HCL] 08/16/2006 Rash Fully Assessed 07/05/2025 REVIEW OF SYSTEMS Abdomen: No bloating, early satiety, indigestion, or increased flatulence. No abdominal pain, nausea, vomiting, diarrhea, or constipation. Bladder: No dysuria, gross hematuria, urinary frequency, urinary urgency, or incontinence. Breast: No breast lumps, nipple d/c, overlying skin changes, redness or skin retraction. Expanded ROS: N/A Allergies and current medication updated:Yes SENSITIVE EXAM: The sensitive examination was discussed with the Patient or Patient's Authorized Toddler Nanny. As applicable, any other physician, advance practice provider, medical student, or other health professional student that will be observing or involved in the sensitive examination for educational or training purposes was discussed with the Patient or Authorized Toddler Nanny. The Patient or Authorized Toddler Nanny has agreed to proceed with the sensitive examination. (Sensitive examination includes inspection and/or palpation of the breasts, pelvis, prostate and anorectal regions). EXAM: BP 148/84 Wt 167 lb (75.8kg) GENERAL: pleasant, female in no apparent distress HEENT: Normocephalic, atraumatic, mucus membranes moist, and no lesions NECK: Supple and full range of motion PELVIC: external genitalia normal, normal Bartholin's glands, urethra, [place]'s glands, no vulvar lesions, no cervical lesions, good vaginal support, normal appearing perineal body and perianal region, small amount of thin [place]/yellow discharge present, no odor. NEURO: alert and oriented x3,exam grossly non-focal EXTREMITIES: normal ASSESSMENT AND PLAN: Assessment & Plan Vaginal discharge Orders: CRISTIANO/TRICHOMONAS NAAT BACTERIAL VAGINOSIS NAAT GONORRHEA/CHLAMYDIA NAAT Screen for STD (sexually transmitted disease) Orders: CRISTIANO/TRICHOMONAS NAAT GONORRHEA/CHLAMYDIA NAAT Lindsay Parks APRN.CNM [1] Social History Tobacco Use Smoking status: Every Day Current packs/day: 1.00 Average packs/day: 1 pack/day for 34.5 years (34.5 ttl pk-yrs) Types: Cigarettes Start date: 01/20/1991 Smokeless tobacco: Never Tobacco comments: Father smoked in childhood home, currently lives with a smoker who is willing to quit with patient. Vaping Use Vaping status: Never Used Substance Use Topics Alcohol use: No Drug use: Yes Types: Marijuana Comment: Smokes 2-3 times a week documented in this encounter [facility] 07-04-2025 Telephone encounter Note Pt calls c/o Itching & very thick white discharge. Used 3 day monistat & 1 day monistat back to back days and did not help. Was on Z-Antony and prednisone, finished last week before starting Monistat. Last seen in office 08/04/23. Advised Pt she needs appt. Appt scheduled tomorrow with CP. Harmeet Kingsley RN [facility] 07-04-2025 Miscellaneous Notes Pt calls c/o Itching & very thick white discharge. Used 3 day monistat & 1 day monistat back to back days and did not help. Was on Z-Antony and prednisone, finished last week before starting Monistat. Last seen in office 08/04/23. Advised Pt she needs appt. Appt scheduled tomorrow with CP. Harmeet Kingsley RN documented in this encounter [facility] 07-03-2025 Note HNO ID: [id number] Author: MARTINEZ GARCIA MD Service: ? Author Type: Physician Type: Progress Notes Filed: 07/03/2025 17:38 Note Text: The patient is a 50-year-old female with emphysema, IBS, and colitis, presenting for evaluation of acute sore throat, cough, and congestion. HPI Upper Respiratory Infection Symptoms: - Onset of symptoms began on Tuesday, 5 days ago. - Sore throat, cough, ear pain, congestion, and mild dyspnea. - Bev denies wheezing. - No fevers or body aches until yesterday. - No known exposure to illness, but attended a family gathering on Tuesday. - Using OTC cold and flu medication at night. - Bev denies performing a home COVID test. - Continues to smoke. Abdominal Pain: - Chronic abdominal pain for years, worsening recently. - Pain described as steady, located from the epigastric region to the right upper quadrant. - Severe pain under the rib cage, sometimes requiring manual support. - History of cholecystectomy. - Chronic diarrhea, longstanding. - Diagnosed with IBS and colitis. - Recent blood work showed low iron and B12 levels; currently taking supplements. - No recent changes in bowel habits. Hyperlipidemia: - Recent lab work showed elevated cholesterol levels: total cholesterol 276 mg/dL, triglycerides 254 mg/dL, LDL 185 mg/dL, HDL 42 mg/dL. - Bev is non-adherent to atorvastatin; unsure of last dose. - No current cardiology follow-up; last seen by Dr. Chase. Depression: - Managed with Effexor; reports medication is effective. - Experiences anxiety, sadness, and periods of social withdrawal. - Bev denies suicidal ideation. - Chronic insomnia, difficulty falling asleep. Emphysema: - Continues to use inhalers. - No new cough or wheezing outside of current URI symptoms. - Reports occasional difficulty breathing. - No current pulmonary follow-up. MEDICATIONS: Current Outpatient Medications Medication Sig pantoprazole DR (PROTONIX) 40 mg tablet TAKE 1 TABLET BY MOUTH ON AN EMPTY STOMACH 1/2 HOUR BEFORE A MEAL TWICE DAILY venlafaxine (EFFEXOR) 50 mg tablet Take 1 tablet by mouth once daily. venlafaxine ER (EFFEXOR XR) 150 mg 24 hr capsule Take 1 capsule by mouth once daily. in addition to Venlafaxine 50 mg tablet daily gabapentin (NEURONTIN) 400 mg capsule Take 1 capsule by mouth three times a day for 180 days. metroNIDAZOLE (METROGEL) 0.75 % Topical Gel Apply to affected area two times a day. cetirizine (ZYRTEC) 10 mg tablet Take 1 tablet by mouth once daily. ferrous sulfate 325 mg (65 mg iron) tablet Take 1 tablet by mouth once daily. albuterol HFA (VENTOLIN HFA) 90 mcg/actuation inhaler Inhale 2 Puffs as instructed every 4 hours as needed for wheezing/shortness of breath. COMBIVENT RESPIMAT 20-100 mcg/actuation inhaler INHALE 1 PUFF INSTRUCTED FOUR TIMES DAILY NEEDED. atorvastatin (LIPITOR) 40 mg tablet Take 1 tablet by mouth once daily. nitroglycerin sublingual (NITROQUICK) 0.4 mg SL tablet Dissolve 1 tablet under the tongue every 5 minutes as needed for chest pain. acetaminophen (TYLENOL) 500 mg tablet Take 2 tablets by mouth every 8 hours as needed for pain. No current facility-administered medications for this visit. ALLERGIES: ALLERGIES Allergen Reactions Doxycycline Entex [Phenylephrin* Erythromycin Shortness of Breath Can take zpak Flexeril [Cyclobenz* Cough denies Omnicef [Cefdinir] GI Upset Penicillin G Intolerance unknown reaction during childhood Risperdal [Risperid* Swelling Ultram [Tramadol Hc* Swelling Valtrex [Valacyclov* Rash PAST MEDICAL HISTORY Diagnosis Date Abnormal mammogram, unspecified LEFT BREAST Abnormal Pap smear and cervical HPV (human papillomavirus) CAD (coronary artery disease) 2103 diffuse moderate CAD in the left main and RCA-40-50%, seeing Dr. Chase Centrilobular emphysema (HCC) Chronic cholecystitis 08/24/2007 Chronic depressive personality disorder Chronic gastric ulcer without mention of hemorrhage, perforation, without mention of obstruction COPD with chronic bronchitis (HCC) Coronary artery disease involving [place] coronary artery of [place] heart with angina pectoris Generalized anxiety disorder Hemorrhoids History of methicillin resistant staphylococcus aureus (MRSA) HTN (hypertension) Hyperlipidemia Incisional hernia without mention of obstruction or gangrene Iron deficiency anemia, unspecified iron deficiency anemia type Irritable bowel syndrome Lumbago Mixed hyperlipidemia PONV (postoperative nausea and vomiting) Raynaud's phenomenon (by history or observed) Tobacco use disorder, continuous Daily smoker since age 16. PAST SURGICAL HISTORY Procedure Laterality Date APPENDECTOMY ENDOMETRIAL BX W/WO ENDOCERVIX BX W/O DILAT SPX 01/01/2009 Menorrhagia ESOPHAGOGASTRODUODENOSCOPY TRANSORAL DIAGNOSTIC 09/26/2012 EGD EXC BREAST LES PREOP PLMT RAD MARKER OPEN 1 LES 08/29/2009 left breast HEART CATHETERIZA (more content not included)... [facility] 07-03-2025 History of Present illness Narrative The patient is a 50-year-old female with emphysema, IBS, and colitis, presenting for evaluation of acute sore throat, cough, and congestion. HPI Upper Respiratory Infection Symptoms: - Onset of symptoms began on Tuesday, 5 days ago. - Sore throat, cough, ear pain, congestion, and mild dyspnea. - Bev denies wheezing. - No fevers or body aches until yesterday. - No known exposure to illness, but attended a family gathering on Tuesday. - Using OTC cold and flu medication at night. - Bev denies performing a home COVID test. - Continues to smoke. Abdominal Pain: - Chronic abdominal pain for years, worsening recently. - Pain described as steady, located from the epigastric region to the right upper quadrant. - Severe pain under the rib cage, sometimes requiring manual support. - History of cholecystectomy. - Chronic diarrhea, longstanding. - Diagnosed with IBS and colitis. - Recent blood work showed low iron and B12 levels; currently taking supplements. - No recent changes in bowel habits. Hyperlipidemia: - Recent lab work showed elevated cholesterol levels: total cholesterol 276 mg/dL, triglycerides 254 mg/dL, LDL 185 mg/dL, HDL 42 mg/dL. - Bev is non-adherent to atorvastatin; unsure of last dose. - No current cardiology follow-up; last seen by Dr. Chase. Depression: - Managed with Effexor; reports medication is effective. - Experiences anxiety, sadness, and periods of social withdrawal. - Bev denies suicidal ideation. - Chronic insomnia, difficulty falling asleep. Emphysema: - Continues to use inhalers. - No new cough or wheezing outside of current URI symptoms. - Reports occasional difficulty breathing. - No current pulmonary follow-up. MEDICATIONS: Current Outpatient Medications Medication Sig pantoprazole DR (PROTONIX) 40 mg tablet TAKE 1 TABLET BY MOUTH ON AN EMPTY STOMACH 1/2 HOUR BEFORE A MEAL TWICE DAILY venlafaxine (EFFEXOR) 50 mg tablet Take 1 tablet by mouth once daily. venlafaxine ER (EFFEXOR XR) 150 mg 24 hr capsule Take 1 capsule by mouth once daily. in addition to Venlafaxine 50 mg tablet daily gabapentin (NEURONTIN) 400 mg capsule Take 1 capsule by mouth three times a day for 180 days. metroNIDAZOLE (METROGEL) 0.75 % Topical Gel Apply to affected area two times a day. cetirizine (ZYRTEC) 10 mg tablet Take 1 tablet by mouth once daily. ferrous sulfate 325 mg (65 mg iron) tablet Take 1 tablet by mouth once daily. albuterol HFA (VENTOLIN HFA) 90 mcg/actuation inhaler Inhale 2 Puffs as instructed every 4 hours as needed for wheezing/shortness of breath. COMBIVENT RESPIMAT 20-100 mcg/actuation inhaler INHALE 1 PUFF INSTRUCTED FOUR TIMES DAILY NEEDED. atorvastatin (LIPITOR) 40 mg tablet Take 1 tablet by mouth once daily. nitroglycerin sublingual (NITROQUICK) 0.4 mg SL tablet Dissolve 1 tablet under the tongue every 5 minutes as needed for chest pain. acetaminophen (TYLENOL) 500 mg tablet Take 2 tablets by mouth every 8 hours as needed for pain. No current facility-administered medications for this visit. ALLERGIES: ALLERGIES Allergen Reactions Doxycycline Entex [Phenylephrin* Erythromycin Shortness of Breath Can take zpak Flexeril [Cyclobenz* Cough denies Omnicef [Cefdinir] GI Upset Penicillin G Intolerance unknown reaction during childhood Risperdal [Risperid* Swelling Ultram [Tramadol Hc* Swelling Valtrex [Valacyclov* Rash PAST MEDICAL HISTORY Diagnosis Date Abnormal mammogram, unspecified LEFT BREAST Abnormal Pap smear and cervical HPV (human papillomavirus) CAD (coronary artery disease) 2103 diffuse moderate CAD in the left main and RCA-40-50%, seeing Dr. Chase Centrilobular emphysema (HCC) Chronic cholecystitis 08/24/2007 Chronic depressive personality disorder Chronic gastric ulcer without mention of hemorrhage, perforation, without mention of obstruction COPD with chronic bronchitis (HCC) Coronary artery disease involving [place] coronary artery of [place] heart with angina pectoris Generalized anxiety disorder Hemorrhoids History of methicillin resistant staphylococcus aureus (MRSA) HTN (hypertension) Hyperlipidemia Incisional hernia without mention of obstruction or gangrene Iron deficiency anemia, unspecified iron deficiency anemia type Irritable bowel syndrome Lumbago Mixed hyperlipidemia PONV (postoperative nausea and vomiting) Raynaud's phenomenon [...] All through my father's family. SOCIAL HISTORY[1] Reviewed current medications, allergies, past medical history, surgical history, family history and social history today. REVIEW OF SYSTEMS Constitutional: (-) fever Ears/Nose/Mouth/Throat: (+) sore throat, (+) ear pain, (+) rhinorrhea, (+) nasal congestion Cardiovascular: (-) chest pain, (-) palpitations, (-) peripheral edema Respiratory: (+) cough, (+) dyspnea, (-) wheezing Gastrointestinal: (+) abdominal pain, (+) nausea, (+) diarrhea, (-) heartburn Musculoskeletal: (+) myalgias Psychiatric: (+) anxiety, (+) depressed mood, (+) insomnia, (-) suicidal ideation HEALTH MAINTENANCE: Reviewed health maintenance issues today and recommended the following in detail. Mammogram Screening due on 03/18/2017 Cervical Cancer Screening due on 03/13/2024 LAB REVIEWED: Labs: (12/2024) - Serial enzymes: No results stated - Iron: Low - Vitamin B12: Low - A1C: 5.2 - TSH: Normal - Lipid Panel: - Cholesterol: 276 mg/dL - Triglycerides: 254 mg/dL - HDL: 42 mg/dL - LDL: 185 mg/dL - WBC: 13.26 times10 / microL - Platelets: 418 times10 / microL - Molecular testing: Negative Imaging: (12/2024) - CTA chest: No results stated - Echocardiogram: No results stated VITALS: BP 128/84 Pulse 75 Temp (!) 35.6 C (96 F) Wt 74.8 kg (165 lb) LMP 07/21/2023 (Within Days) SpO2 97% BMI 29.70 kg/m Last 4 Encounter Wt Readings: Date: Wt: 07/03/2025 74.8 kg (165 lb) 06/18/2025 74.8 kg (165 lb) 06/07/2025 74 kg (163 lb 2.3 oz) 01/29/2025 75.3 kg (166 lb) PHYSICAL EXAMINATION: GENERAL: NAD, alert and oriented. SKIN: Unremarkable, no rash or skin lesions. HEAD: Normocephalic. EYES: PERRLA, EOMI, conjunctiva clear. EARS: External ears normal, canals clear, TM's normal. NOSE/SINUSES: Nares normal. Septum midline. Mild tenderness over the sinuses bilaterally. OROPHARYNX: Lips, mucosa, and tongue normal, good dentition. No oral lesions noted. No exudate, no erythema. NECK: Supple, no lymphadenopathy, normal thyroid, no carotid bruits. LUNGS: Clear to auscultation bilaterally, no wheezes/rhonchi/rales. HEART: Regular rate and rhythm, no murmurs. No ectopy. EXTREMITIES: Normal, no deformities, no skin discoloration, no edema. NEURO: Awake, alert and oriented x3, cranial nerves II-XII grossly intact, normal gait, no involuntary motions. ASSESSMENT AND PLAN 1. URI, acute (J06.9) - Onset 5 days ago with sore throat, cough, ear pain, congestion, and mild shortness of breath; no fever or significant rhinorrhea; mild sinus tenderness bilaterally on exam; lungs clear to auscultation. - Differential includes viral URI (COVID-19, RSV, influenza); strep less likely given absence of isolated sore throat. - COVID-19, RSV, and influenza swabs ordered. - Advised supportive care with fluids and OTC medications; instructed to report worsening symptoms or lack of improvement within a week. - Holding off on antibiotics at this time. 2. Screening for depression (Z13.31) 3. Severe depression (HCC) (F32.2) - On Effexor; reports persistent anxiety, sadness, and social withdrawal, but denies suicidal ideation. - Continue current medication regimen. - Instructed to report any worsening of mood or new symptoms. 4. Primary hypertension (I10) - No acute issues discussed. 5. Mixed hyperlipidemia (E78.2) - Recent labs: total cholesterol 276 mg/dL, triglycerides 254 mg/dL, HDL 42 mg/dL, LDL 185 mg/dL. - Nonadherence to atorvastatin; advised to resume medication. - Discussed importance of lipid control for cardiovascular risk reduction. - Repeat lipid panel and liver function tests in 6 weeks. 6. Coronary artery disease involving [place] coronary artery of [place] heart with angina pectoris (I25.119) - No current angina or cardiac symptoms reported. - Emphasized importance of lipid management. 7. Raynaud's phenomenon without gangrene (I73.00) 8. COPD with chronic bronchitis (HCC) (J44.89) 9. Centrilobular emphysema (HCC) (J43.2) 10. Mild intermittent asthma with acute exacerbation ([facility]) (J45.21) - History of emphysema; continues to smoke; using inhalers as prescribed. - Advised to notify if respiratory symptoms worsen. - Discussed potential impact of smoking on blood counts. 11. Gastroesophageal reflux disease, unspecified whether esophagitis present (K21.9) 12. History of substance abuse ([facility]) (F19.11) - No current issues reported. 13. Generalized abdominal pain (R10.84) - Chronic, worsening abdominal pain with longstanding diarrhea; history of IBS and colitis. - Iron deficiency noted on labs; taking iron supplements. - GI evaluation with Dr. Lundberg scheduled for 07/15. - Advised to maintain follow-up and report any acute changes. 14. Syncope, unspecified syncope type (R55) - Reviewed ER visit in December 2024 for syncope with brief CPR; likely vasovagal etiology. - No recurrent episodes since hospitalization. - Refer to cardiology for follow-up. 15. Simple endometrial hyperplasia without atypia (N85.01) - Gynecology follow-up scheduled in August. 16. Thrombocytosis (D75.839) 17. Leukocytosis, unspecified type (D72.829) - Recent labs: WBC 13.26, platelets 418; consistent with prior values. - Reviewed prior hematology/oncology notes from Dr. Shaw; molecular testing negative. - Repeat CBC in 6 weeks. 18. Low iron (E61.1) 19. Vitamin B12 deficiency (E53.8) - Iron and B12 deficiencies identified on recent labs; taking supplements as prescribed. - Advised to continue supplementation. (See patient after visit summary for additional instructions to patient) Martinez Garcia MD Recording using [employer] software for draft documentation of the visit was discussed with the patient/authorized patient care representative; all questions welcomed and answered. Patient/authorized patient care representative agreed to proceed [1] Social History Tobacco Use Smoking status: [...] times a week documented in this encounter [facility] 07-03-2025 Note SARS-COV-2 (AGENT OF COVID-19) RNA: Not detected INFLUENZA A RNA: Not detected INFLUENZA B RNA: Not detected RESPIRATORY SYNCYTIAL VIRUS (RSV) RNA: Not detected [facility] Comment on above: Performed By: #### 9 [id number] ####[facility] [id number] [place] [address] [place] 07-03-2025 Instructions Martinez Garcia MD - 07/03/2025 2:13 PM EDT - Restart atorvastatin (Lipitor) to help lower your cholesterol; your refill will be sent to the pharmacy. - Continue taking the prescription iron supplement for your low iron levels. - Keep using your mpvw-owg-ctsuxld B12 supplement as before. - Continue Effexor at your current dose for mood support. - Use your prescribed inhalers as directed for emphysema. - Take dnop-nnt-ihedvrz cold and flu medicine at night as needed for throat and chest symptoms. - Drink plenty of fluids and rest to support recovery from your viral illness. - Return in 6 weeks for blood tests (CBC, liver function tests, and lipid panel) to monitor your response to atorvastatin and overall health. - A nasal swab for COVID-19, RSV, and influenza was performed today; we will contact you with results and discuss antiviral treatment if needed. - If your breathing worsens, you develop significant shortness of breath, or you see no improvement within one week, contact our office. - Attend your GI appointment on July [address] Lundberg for evaluation and potential scopes. - Schedule a cardiology follow-up (preferably with Dr. Chase or another manufacturing chief engineer) to review your syncopal episode and heart health. - Keep your gynecology appointment in August to address menopause symptoms and endometrial hyperplasia. - Consider reducing smoking to help improve your blood counts and lung function. - You may consider updating your tetanus booster if it s been 10 years and the hepatitis B vaccine series when convenient. documented in this encounter [facility] 06-26-2025 Telephone encounter Note Prescription Refill Information The patient has been identified by name and date of : Yes Caregiver verified no other encounters exist for this prescription request: Yes Caregiver confirmed with patient/requestor that no other refills are due, in the near future, with this provider at this time: Yes The last office visit in the department: 06-18-25 Does the patient have a future office visit with this provider/department: Yes Requested Prescriptions Pending Prescriptions Disp Refills pantoprazole DR (PROTONIX) 40 mg tablet 180 tablet 1 Sig: TAKE 1 TABLET BY MOUTH ON AN EMPTY STOMACH 1/2 HOUR BEFORE A MEAL TWICE DAILY venlafaxine (EFFEXOR) 50 mg tablet 90 tablet 1 Sig: Take 1 tablet by mouth once daily. venlafaxine ER (EFFEXOR XR) 150 mg 24 hr capsule 90 capsule 0 Sig: Take 1 capsule by mouth once daily. in addition to Venlafaxine 50 mg tablet daily gabapentin (NEURONTIN) 400 mg capsule 270 capsule 0 Sig: Take 1 capsule by mouth three times a day for 180 days. Lydia Horner June 26, 2025 1:40 PM [facility] 06-26-2025 Miscellaneous Notes Prescription Refill Information The patient has been identified by name and date of : Yes Caregiver verified no other encounters exist for this prescription request: Yes Caregiver confirmed with patient/requestor that no other refills are due, in the near future, with this provider at this time: Yes The last office visit in the department: 06-18-25 Does the patient have a future office visit with this provider/department: Yes Requested Prescriptions Pending Prescriptions Disp Refills pantoprazole DR (PROTONIX) 40 mg tablet 180 tablet 1 Sig: TAKE 1 TABLET BY MOUTH ON AN EMPTY STOMACH 1/2 HOUR BEFORE A MEAL TWICE DAILY venlafaxine (EFFEXOR) 50 mg tablet 90 tablet 1 Sig: Take 1 tablet by mouth once daily. venlafaxine ER (EFFEXOR XR) 150 mg 24 hr capsule 90 capsule 0 Sig: Take 1 capsule by mouth once daily. in addition to Venlafaxine 50 mg tablet daily gabapentin (NEURONTIN) 400 mg capsule 270 capsule 0 Sig: Take 1 capsule by mouth three times a day for 180 days. Lydia Horner June 26, 2025 1:40 PM documented in this encounter [facility] 06-25-2025 Telephone encounter Note Attempted to call pt, no answer, voicemail full. Debbie Nichols MA June 25, 2025 10:46 AM [facility] 06-25-2025 Miscellaneous Notes Attempted to call pt, no answer, voicemail full. Debbie Nichols MA June 25, 2025 10:46 AM No answer, no voicemail. Debbie Nichols MA June 18, 2025 4:07 PM Did the gel 2 x day- please let pt. know [facility] sends fax with suggested alternatives for Metro get 1% that was ordered. Metro topical 0.75% gel Metro 0.75% cream Metro 0.75% lotion documented in this encounter [facility] 06-21-2025 Radiology Diagnostic study note [facility] Imaging Services [address] [place], [place] [address] Abdomen/Pelvis W IV Cont ONLY MR#: [id number] Acct: [id number] Name: BEV WEBB Rep #: [id number] : 1975 F 50 From: Gómez Abernathy MD PCP: Dr. Martinez Garcia MD Status: REG E R Study:Abdomen/Pelvis W IV Cont ONLY Date of E xam: 06/21/25 Exam# [id number] Ordering Dr: Prosper Tomas MD PROCEDURE: CT ABDOMEN/PELVIS W IV CONT ONLY 06/21/2025 REASON FOR EXAM: RIGHT-SIDED ABDOMINAL PAIN. PRIOR CHOLECYSTECTOMY TECHNIQUE: CT ABDOMEN/PELVIS W IV CONT ONLY. Coronal and Sagittal reconstruction series were provided. CONTRAST: Isovue 370 VOLUME: 94 mL One or more dose reduction techniques were used (e.g., Automated exposure control, adjustment of the mA and/or kV according to patient size, use of iterative reconstruction technique. RADIATION DOSE SUMMARY: DLP: 842.29 mGycm COMPARISON: Abdominal CT 12/26/2024. FINDINGS: Lung bases: Clear. Liver: No significant abnormality. Gallbladder: Surgically absent. Presumed postoperative prominence of the CBD and intrahepatic biliary ducts, stable from prior exams. No dilatation of the pancreatic duct. Spleen: Normal size and morphology. Small anterior splenule. Pancreas: Unremarkable. Adrenals: Unremarkable. Kidneys: Unremarkable. No urolithiasis or hydronephrosis. Bladder: Unremarkable. Reproductive Organs: Mildly lobulated uterus with multiple small presumed uterine fibroids. Small bilateral ovarian functional follicles/cysts. No adnexal mass. Bowel: No evidence of obstruction or active inflammatory process. Appendix is surgically absent. Lymph nodes: No enlarged abdominopelvic lymph nodes. Vasculature: Normal caliber abdominal aorta and IVC. Mild atherosclerotic calcifications. Peritoneum / Retroperitoneum: No ascites or free air. Bones: Unremarkable. CT/Abdomen/Pelvis W IV Cont ONLY IMPRESSION: 1. No acute or active inflammatory intra-abdominal pathology. 2. Multiple small presumed uterine fibroids. Reading Location: [id number] CC: Dr. Joseph Tomas MD; Dr. Martinez Garcia MD ~ Stage Set Up Worker: Signed [facility] 06-20-2025 Telephone encounter Note Letter mailed to pt home of results. Arabella Reyes MA [facility] 06-20-2025 Miscellaneous Notes Letter mailed to pt [...] of B12 daily. You can purchase this hrpr-uey-kxhjlof. It is widely available in most stores and inexpensive. No diabetes, thyroid normal, glucose is actually on the lower side. Kidney function improved. ----- Message ----- From: Lab, Background User Sent: 06/18/2025 4:31 PM EDT To: Amita Pope APRN.INTERNATIONAL PROJECT MANAGER Please let patient know that LDL, bad [...] of B12 daily. You can purchase this nqzp-wzu-ulokses. It is widely available in most stores and inexpensive. No diabetes, thyroid normal, glucose is actually on the lower side. Kidney function improved. documented in this encounter [facility] 06-20-2025 Telephone encounter Note Attempted to contact patient, no answer, mailbox is full. Debbie Nichols MA June 20, 2025 1:35 PM [facility] 06-20-2025 Telephone encounter Note ----- Message from [...] of B12 daily. You can purchase this qidg-uly-wupggqk. It is widely available in most stores and inexpensive. No diabetes, thyroid normal, glucose is actually on the lower side. Kidney function improved. ----- Message ----- From: Lab, Background User Sent: 06/18/2025 4:31 PM EDT To: Amita Pope APRN.INTERNATIONAL PROJECT MANAGER T [facility] 06-20-2025 Progress note Formatting of t his [...] of B12 daily. You can purchase this itdr-ksb-uhdrann. It is widely available in most stores and inexpensive. No diabetes, thyroid normal, glucose is actually on the lower side. Kidney function improved. T [facility] 06-18-2025 Telephone encounter Note No answer, no voicemail. Debbie Nichols MA June 18, 2025 4:07 PM [facility] 06-18-2025 Telephone encounter Note Did the gel 2 x day- please let pt. know T [facility] 06-18-2025 Telephone encounter Note [facility] sends fax with suggested alternatives for Metro get 1% that was ordered. Metro topical 0.75% gel Metro 0.75% cream Metro 0.75% lotion [facility] 06-18-2025 History of Present illness Narrative Radiology [...] PATIENT PRESENTS WITH AN IMPLANTABLE OR ATTACHED CLERICAL ADVISER: No RADIOLOGY DEPARTMENT: General X-ray: Exam(s) Completed: Upper Extremity X-Ray(s): Hand, left PERIPHERAL IV DATA: Not applicable SIGNED BY: RT Josy(Joey) June 18, 2025 10:31 AM documented in this encounter [facility] 06-18-2025 Note HNO ID: [id number] Author: ADRIANNA CONNELLY RT(Joey) Service: ? Author Type: Checkout Supervisor Type: Progress Notes Filed: 06/18/2025 10:38 Note [...] PATIENT PRESENTS WITH AN IMPLANTABLE OR ATTACHED CLERICAL ADVISER: No RADIOLOGY DEPARTMENT: General X-ray: Exam(s) Completed: Upper Extremity X-Ray(s): Hand, left PERIPHERAL IV DATA: Not applicable SIGNED BY: RT Josy(R) June 18, 2025 10:31 AM [facility] 06-18-2025 Note Addended by: AMITA POPE on: 06/18/2025 10:12 AM Modules accepted: Orders [facility] 06-18-2025 Miscellaneous Notes Addended by: AMITA POPE on: 06/18/2025 10:12 AM Modules accepted: Orders documented in this encounter [facility] 06-18-2025 Instructions Amita Pope APRN.CNP - 06/18/2025 [...] you have been. documented in this encounter [facility] 06-18-2025 Note HNO ID: [id number] Author: AMITA POPE APRN.CNP Service: ? Author [...] once daily. ac (more content not included)... [facility] 06-18-2025 History of Present illness Narrative [...] PANEL, NONFASTING 5. Coronary artery disease involving [place] coronary artery of [place] heart with angina pectoris - ICD9: 414.01, [...] HAND GENERAL 3V PA/LAT/OBL LEFT Amita Pope APRN.INTERNATIONAL PROJECT MANAGER Discussed treatment plan and patient voices understanding. Patient's questions answered appropriately. Medications and potential side effects were discussed and patient voices understanding. Return to the office as scheduled or as needed for worsening/no improvement. Amita Pope, MARYBETH.INTERNATIONAL PROJECT MANAGER [1] Social History Tobacco Use Smoking status: [...] times a week documented in this encounter [facility] 06-17-2025 Telephone encounter Note Patient call in [...] ER if symptoms persist or gets worse. [facility] 06-17-2025 Miscellaneous Notes Patient call in for [...] or gets worse. documented in this encounter [facility] 06-07-2025 Note HNO ID: [id number] Author: KIM KEBEDE MD Service: ? Author Type: Physician Type: Progress Notes Filed: 06/07/2025 16:47 Note Text: [facility] Gerardo Call is a 50 year old [...] suggestive Disposition The patient was discharged. Procedures [facility] 06-07-2025 History of Present illness Narrative [facility] Webb is a 50 year old female. [...] was discharged. Procedures documented in this encounter [facility] 06-07-2025 Instructions Kim Kebede MD - 06/07/2025 [...] problems or concerns. documented in this encounter [facility] 04-25-2025 Telephone encounter Note Called and spoke with pt and confirmed that pt takes Venlafaxine ER 150 mg 24 hr capsule in addition to Venlafaxine 50 mg tablet daily. Next appt is 07/03/[address] Garcia. [facility] 04-25-2025 Miscellaneous Notes Called and spoke with pt and confirmed that pt takes Venlafaxine ER 150 mg 24 hr capsule in addition to Venlafaxine 50 mg tablet daily. Next appt is 07/03/[address] Garcia. Patient requesting the following medication venlafaxine XR (EFFEXOR XR) 150 mg ORAL Cp24 Patient last seen 01-03-25 Future appointment scheduled: yes PHARMACY: [facility] documented in this encounter [facility] 04-25-2025 Telephone encounter Note Patient requesting the following medication venlafaxine XR (EFFEXOR XR) 150 mg ORAL Cp24 Patient last seen 01-03-25 Future appointment scheduled: yes PHARMACY: [facility]. [facility] 02-12-2025 Note Patient Outreach (ZAIDA MPWS) CALLBEV ([id number]) 1975 F Date Time Provider Department 02/12/25 MARTINEZ GARCIA During your visit today, we recorded the following information about you: Allergies As of Date: 02/12/2025 Noted Allergy Reaction DOXYCYCLINE 08/16/2006 ENTEX (PHENYLEPHRINE-GUAIFENESIN) 10/20/2006 ERYTHROMYCIN 08/16/2006 12 - Shortness of Breath Comments: Can take zpak FLEXERIL (CYCLOBENZAPRINE HCL) 10/08/2011 3 - Cough Comments: dandre OMNICEF (CEFDINIR) 07/11/2014 8 - GI Upset PENICILLIN G 08/16/2006 5 - Intolerance Comments: unknown reaction during childhood RISPERDAL (RISPERIDONE) 08/16/2006 7 - Swelling ULTRAM (TRAMADOL HCL) 08/16/2006 7 - Swelling VALTREX (VALACYCLOVIR HCL) 08/16/2006 2 - Rash Date Reviewed: 01/29/2025 Reviewed by: Amita Pope APRN.INTERNATIONAL PROJECT MANAGER - Fully Assessed Visit Diagnosis:Encounter for screening mammogram for breast cancer [Z12.31] Order(s):[facility] SCREENING [facility] [[id number]] Order #: [id number] FUTURE Prescriptions as of 03/15/2025 - ferrous [...] 09/17/2009 04/27/2017 [facility]01/15/2011 08/09/2012 Class: Chronic Routine gynecological examination [Z01.419] 01/15/2011 08/09/2012 Class: Chronic GERD (gastroesophageal reflux disease) [K21.9] 01/15/2011 PUD (peptic ulcer disease) [K27.9] 01/15/2011 Tinea versicolor [B36.0] 01/29/2011 09/24/2014 Post-inflammatory hyperpigmentation [L81.0] 01/29/2011 09/24/2014 Pruritus [L29.9] 01/29/2011 09/24/2014 Hyperlipidemia [E78.5] 05/22/2014 Coronary artery disease involving [place] benoit*06/06/2014 Lymphadenopathy [R59.1] 06/06/2014 04/27/2017 Herpes simplex [...] left hand [L02.512] 11/24/2022 Encounter Status:Closed by [email or web address] on 03/15/25 [facility] 02-04-2025 Telephone encounter Note Patient is aware of all information/instructions. She is aware to begin OTC ferrous sulfate 325 mg 1 tablet every other day. She will follow up with her PCP for labs and colonoscopy. Anne Olsen LPN [facility] 02-04-2025 Miscellaneous Notes Patient is aware of [...] Devin Donald DO documented in this encounter [facility] 02-04-2025 Telephone encounter Note Can let her [...] of iron and CBC. Devin Donald DO [facility] Work Phone: 01-29-2025 Instructions Amita Pope APRN.CNP - 01/29/2025 1:25 PM EDT 1) See Dr. Garcia in June 2) Start ferrous sulfate 325 mg daily- take with something rich in Vit C documented in this encounter [facility] 01-29-2025 Note HNO ID: [id number] Author: AMITA POPE APRN.CNP Service: ? Author [...] canal and ext (more content not included)... [facility] 01-29-2025 History of Present illness Narrative [...] as needed for worsening/no improvement. Amita Pope APRN.HSERWIN documented in this encounter [facility] 01-25-2025 History of Present illness Narrative Patient [...] and night sweats. Normal appetite. Neuro: No LEBLANC, vertigo, dizziness and imbalance. No symptoms of [...] or hepatomegaly. SKIN: No jaundice. LABS: ASSESSMENT/PLAN: (D72.829) Leukocytosis, unspecified type (primary encounter diagnosis) (D75.629) Thrombocytosis Assessment: -Patient is a 50-year-old female [...] which included preparing to see the patient, lesy-fm-bkab patient care, completing clinical documentation, obtaining and/or reviewing separately obtained history, performing a medically appropriate examination, counseling and educating the patient/family/caregiver, ordering medications, tests, or procedures, communicating with other HCPs (not separately reported), and communicating results to the patient/family/caregiver. Devin Donald DO documented in this encounter [facility] 01-25-2025 Note HNO ID: [id number] Author: DEVIN DONALD DO Service: ? Author Type: Physician Type: Progress Notes Filed: 01/25/2025 14:13 Note Text: Patient referred by Amita Pope APRN.INTERNATIONAL PROJECT MANAGER for leukocytosis. HPI: The patient is a [...] and night sweats. Normal appetite. Neuro: No LEBLANC, vertigo, dizziness and imbalance. No symptoms of [...] rales, wheezes or (more content not included)... [facility] 01-15-2025 Telephone encounter Note Pt notified. Scheduled with Hem/Onc. Set up 2 week f/u with Jacki. Arabella Reyes MA [facility] 01-15-2025 Miscellaneous Notes Pt notified. Scheduled with [...] her preventative care. documented in this encounter [facility] 01-15-2025 Telephone encounter Note ----- Message from [...] and do some of her preventative care. [facility] 01-15-2025 Telephone encounter Note Spoke w pt and she is scheduled 01/25 available new pt. Elmira Paulino [facility] 01-15-2025 Miscellaneous Notes Spoke w pt and she is scheduled 01/25 available new pt. Elmira Paulino Offer apt with first available. Printed recent ER, admission note, ct reports from [facility]. Maritza Ron LPN Please review and advise CONSULT TO HEMATOLOGY Status: Needs Scheduling Requested appt date: Authorizing: Amita Pope APRN.CNP in [facility] Referral: [id number] (Authorized) Expires: 01/15/2026 Priority: Routine Diagnosis: Leukocytosis, unspecified type [D72.829] Comments Chronic leukocytosis. This has been going on for 2 years. Patient is returning with frequent viral infections. documented in this encounter [facility] 01-15-2025 Telephone encounter Note Offer apt with first available. Printed recent ER, admission note, ct reports from [facility]. Maritza Ron LPN [facility] 01-15-2025 Telephone encounter Note Please review and advise CONSULT TO HEMATOLOGY Status: Needs Scheduling Requested appt date: Authorizing: Amita Pope APRN.CNP in [facility] Referral: [id number] (Authorized) Expires: 01/15/2026 Priority: Routine Diagnosis: Leukocytosis, unspecified type [D72.829] Comments Chronic leukocytosis. This has been going on for 2 years. Patient is returning with frequent viral infections. [facility] Work Phone: 01-15-2025 Progress note Formatting of [...] and do some of her preventative care. [facility] 01-14-2025 Instructions Amita Pope APRN.CNP - 01/14/2025 2:50 PM EDT - FLUCONAZOLE 100 MG TABLET daily for 3 days - SULFAMETHOXAZOLE 800 MG-TRIMETHOPRIM 160 MG TABLET 2 x day for 14 days documented in this encounter [facility] 01-14-2025 Note HNO ID: [id number] Author: AMITA POPE APRN.CNP Service: ? Author [...] Whole body hurts Headache is back Eating citizen of [place] yogurt- doesn't like it but it helped [...] Use Smoking s (more content not included)... [facility] 01-14-2025 History of Present illness Narrative This is a 49 year old female who presents today with: Patient presents with: Mouth/Lip Problem: Thrush Sinusitis HISTORY OF PRESENT ILLNESS: Bev Webb is a 49 year old female. Patient presents with: Mouth/Lip Problem: Thrush Sinusitis Sore tongue with white plaque. Sinusitis returning and feels bad. Whole body hurts Headache is back Eating citizen of [place] yogurt- doesn't like it but it helped [...] as needed for worsening/no improvement. Amita Pope APRN.INTERNATIONAL PROJECT MANAGER documented in this encounter [facility] 01-14-2025 Telephone encounter Note Pt called in and reports she saw Izabel Pope ANESTHESIOLOGY FELLOW on 01/03/25. She said she told her to come back if symptoms got worse. Pt reports she has thrush, her tongue is completely coated in white. Pt also reports her sinus infection symptoms are coming back. Pt scheduled today with Izabel Pope at 240 pm. [facility] 01-14-2025 Miscellaneous Notes Pt called in and reports she saw Izabel Pope ANESTHESIOLOGY FELLOW on 01/03/25. She said she told her to come back if symptoms got worse. Pt reports she has thrush, her tongue is completely coated in white. Pt also reports her sinus infection symptoms are coming back. Pt scheduled today with Izabel Pope at 240 pm. documented in this encounter [facility] 01-04-2025 Telephone encounter Note Left a message for pt to call the office and ask to speak to a nurse. Camila Herzog LPN [facility] 01-04-2025 Miscellaneous Notes Left a message for pt to call the office and ask to speak to a nurse. Camila Herzog LPN ----- Message from Amita Pengaicha sent at 01/03/2025 5:44 PM EST ----- [...] blood count also. documented in this encounter [facility] 01-04-2025 Telephone encounter Note ----- Message from [...] will increase her white blood count also. [facility] 01-03-2025 Progress note Formatting of t his [...] will increase her white blood count also. [facility] 01-03-2025 Instructions Amita Pope APRN.CNP - 01/03/2025 2:05 PM EST - Medrol dose pack - TIZANIDINE 4 MG TABLET - Get labs work today - GUAIFENESIN ER 600 MG TABLET, EXTENDED RELEASE 12 HR documented in this encounter [facility] 01-03-2025 Note HNO ID: [id number] Author: AMITA POPE APRN.CNP Service: ? Author Type: Nurse Practitioner Type: Progress Notes Filed: 01/03/2025 14:06 Note Text: This is a 49 year old female who presents today with: Patient presents with: ER F/U: [facility] 12/26/24 [place] HISTORY OF PRESENT ILLNESS: Bev Webb is a 49 year old female. Patient presents with: ER F/U: [facility] 12/26/24 [place] [facility] follow up 2 weeks ago, she was treated in Urgent care for URI with Zpak Got worse. Went to ER @ [facility]- passed out in ER. Told she there Couldn't find a pulse. They work up noted low magnesium. Son told her to go ER @ [facility]. WBC high. They treated with Levaquin. [...] status: Every Day (more content not included)... [facility] 01-03-2025 History of Present illness Narrative This is a 49 year old female who presents today with: Patient presents with: ER F/U: [facility] 12/26/24 [place] HISTORY OF PRESENT ILLNESS: Bev Webb is a 49 year old female. Patient presents with: ER F/U: [facility] 12/26/24 [place] [facility] follow up 2 weeks ago, she was treated in Urgent care for URI with Zpak Got worse. Went to ER @ [facility]- passed out in ER. Told she there Couldn't find a pulse. They work up noted low magnesium. Son told her to go ER @ [facility]. WBC high. They treated with Levaquin. [...] Amita Pope APRN.SHERWIN documented in this encounter [facility] 01-02-2025 Telephone encounter Note Pt calling in to set up ER follow up appt. Pt states she was seen in on 12/17 and was given a Z pack. Pt did not get better and ended up going to [facility] ER on 12/26 where she proceeded to pass out and had no pulse and had to have chest compressions (records under scanned documents). She went in because she still felt so sick and felt like she was going to pass out and was very weak. Was admitted overnight. Then Tuesday, pt went to [facility] ER for a second opinion. They found her WBC was elevated and put her on Levaquin. She is now having a productive cough of yellow phlegm and is coughing a lot. Pt had a lot of testing done at [facility]. ER follow up appt made for tomorrow at 120 pm with Amita Pope. [facility] 01-02-2025 Miscellaneous Notes Pt calling in to set up ER follow up appt. Pt states she was seen in on 12/17 and was given a Z pack. Pt did not get better and ended up going to [facility] ER on 12/26 where she proceeded to pass out and had no pulse and had to have chest compressions (records under scanned documents). She went in because she still felt so sick and felt like she was going to pass out and was very weak. Was admitted overnight. Then Tuesday, pt went to [facility] ER for a second opinion. They found her WBC was elevated and put her on Levaquin. She is now having a productive cough of yellow phlegm and is coughing a lot. Pt had a lot of testing done at [facility]. ER follow up appt made for tomorrow at 120 pm with Amita Pope. documented in this encounter [facility] 12-31-2024 Telephone encounter Note PATIENT TREATED AT ED ON 12/28/24. SHE IS WANTING TO CALL BACK TO [facility] PCP ER F/U AFTER SHE CONFIRMS TRANSPORTATION. [...] Janene Rizvi December 31, 2024 8:49 AM [facility] 12-31-2024 Miscellaneous Notes PATIENT TREATED AT ED ON 12/28/24. SHE IS WANTING TO CALL BACK TO [facility] PCP ER F/U AFTER SHE CONFIRMS TRANSPORTATION. [...] 2024 8:49 AM documented in this encounter [facility] 12-28-2024 Note SARS-COV-2 (AGENT OF COVID-19) RNA: Not detected INFLUENZA A RNA: Not detected INFLUENZA B RNA: Not detected RESPIRATORY SYNCYTIAL VIRUS (RSV) RNA: Not detected [facility] Comment on above: Performed By: #### 9 [id number] ####[facility] LABORATORYCLIA [id number] [place] [address] [facility] 12-27-2024 Note [facility] Medical Records Department [address] [place] [address] Discharge Summary 12/27/24 1317 MR#: [id number] Acct: [id number] Name: BEV WEBB Rep #: [id number] : 1975 49 From: Singh Tenorio MD PCP: Dr. Martinez Garcia MD Status:ADM IN Location: ICU [id number] Providers Date of Admission: 12/26/24 Date of [...] of chest compressions she woke up. CODE BLUE was called. # Loss of consciousness most likely due to vasovagal syncope from hypotension and bradycardia: Patient is being admitted in ICU as PCU status. Serial troponins negative therefore ACS ruled out -2D echo was reviewed. Mild concentric LVH, stage I diastolic dysfunction. EF 60%. Trivial MR but no significant valvular abnormality. Discussed with manufacturing chief engineer. Patient is being discharged. Orthostatic vitals were [...] Cranial nerves II-XII (more content not included)... [facility] 12-17-2024 Note HNO ID: [id number] Author: LINDSAY ASHLEY APRN.INTERNATIONAL PROJECT MANAGER Service: ? Author Type: Nurse Practitioner Type: [...] Artery Disease Mater (more content not included)... [facility] 12-17-2024 History of Present illness Narrative [...] Sinus: Frontal sinus tenderness present. Mouth/Throat: Lips: [place]. Mouth: Mucous membranes are moist. Pharynx: Oropharynx [...] to treatment plan. Shahnaz Pastrana TEACHING PROVIDER (Physician/PA/THERAPEUTIC SALES SPECIALIST) NOTE OF PERSONAL INVOLVEMENT IN CARE: I have personally seen and examined the patient and performed the medical decision-making components. I have reviewed the Advanced Practice Registered Nurse (THERAPEUTIC SALES SPECIALIST) Student's documentation and verified the findings in the note as written. Any additions or changes are noted in bold/italics. Signature: Lindsay Ashley Date: 12/17/2024 Time: 2:54 PM documented in this encounter [facility] 10-26-2024 Telephone encounter Note Needs follow up. [facility] 10-26-2024 Miscellaneous Notes Needs follow up. Patient [...] Kat Cuba RN documented in this encounter [facility] 10-26-2024 Telephone encounter Note Patient requesting the [...] by mouth once daily. Kat Cuba RN [facility] 08-03-2024 Telephone encounter Note Prescription Refill Information [...] Sheeba Horner August 03, 2024 9:46 AM [facility] 08-03-2024 Miscellaneous Notes Prescription Refill Information [...] 2024 9:46 AM documented in this encounter [facility] 07-13-2024 Telephone encounter Note Patient has been [...] found Please advise. Thank you. Nisa Chavez. [facility] 07-13-2024 Miscellaneous Notes Patient has been identified [...] you. Nisa Chavez. documented in this encounter [facility] 04-19-2024 Telephone encounter Note The following approved [...] once daily. Authorizing Provider: Delores CHOWDHURY PA-C [facility] 04-19-2024 Miscellaneous Notes The following approved medication [...] Addis García RN documented in this encounter [facility] 04-19-2024 Telephone encounter Note Patient informed and verbalized understanding. Needs refills on the 150 mg also. Pended please send. Krista Guerrero MA [facility] 04-19-2024 Telephone encounter Note We discussed at [...] XL daily Authorizing Provider: Delores CHOWDHURY PA-C [facility] 04-19-2024 Telephone encounter Note Patient calls and [...] Please review and advise, Addis García RN [facility] 04-03-2024 Telephone encounter Note Patient notified. Verbalized understanding. [facility] 04-03-2024 Miscellaneous Notes Patient notified. Verbalized understanding. Images from the original note were not included. Delores Chowdhury PA-C [facility] Please advise I added additional labwork due to anemia, pleas have her complete it in next 4 weeks Danyel Diamond PA-C documented in this encounter [facility] 04-03-2024 Telephone encounter Note Images from the original note were not included. Delores Chowdhury PA-C [facility] Please advise I added additional labwork due to anemia, pleas have her complete it in next 4 weeks Danyel Diamond PA-C [facility] 03-27-2024 Instructions Delores Chowdhury PA-C - 03/27/2024 2:03 PM EDT Please schedule follow up with [facility] for follow up Increased venlafaxine to 150 mg by adding 50mg to 150mg F/u 4 weeks on progress documented in this encounter [facility] 03-27-2024 History of Present illness Narrative 49 year old female with c/o annual physical, wellness check Coronary artery disease involving [place] coronary artery of [place] heart with angina pectoris (hcc) (primary encounter diagnosis) Mixed hyperlipidemia Primary hypertension Raynaud's phenomenon without gangrene Cardiovascular interval hx Has not see cardiology since heart cath: 03/16/2021 cardiac catheterization for vasospasm, [facility], Dr. Chase: Conclusions: Moderate right coronary artery disease noted mid to distal segment equivocal coronary artery disease, not significant by FFR. LVEF 45%, LV SF WNL Mild anterior hypokinesis LM: WNL; LAD: Mild luminal irregularities, diagonal ostial-60% stenosis; CX: Mild luminal; RCA 60% distal 11/26/20 cardiolyte stress echo: EF 60%, no ischemia, good functional capacity 2014 initial sx angina: mid chest pain to left neck and left arm, dx: diffuse moderate CAD in the left main and RCA-40-50% Followed by [facility]: Dr. 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 Interval history: no episodes. [...] Last EGD and/or colonoscopy: [facility] FINAL DIAGNOSIS 1. 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 + HSV OB History T1 L1 SAB1 IAB0 Ectopic0 Multiple0 Live Births0 Comment: 1 vaginal deliv 11/14/2023 ER [facility] ER visit Low back pain Current [...] Ulcer Disease) Hyperlipidemia Coronary Artery Disease Involving [place] Coronary Artery of [place] Heart With Angina Pectoris (Hcc) Marijuana Use [...] done LDL Cholesterol due on 01/27/2023 Covid-19 Vaccine( - 2022- season) Never done Annual PCP Team Chronic [...] pulses. ASSESSMENT/PLAN: 1. Coronary artery disease involving [place] coronary artery of [place] heart with angina pectoris (HCC) - ICD9: 414.01, 413.9, ICD10: I25.119 (primary diagnosis) Has not not had cardiac follow up since MD, heart cath 2020 No ischemic equivalents Remains [...] Delores Chowdhury PA-C documented in this encounter [facility] 03-15-2024 Telephone encounter Note Called and set pt up with an appt on 03/27 at 1 pm with Danyel Chowdhury. Also will have link for [employer] sent to pt via confirmed email. [facility] 03-15-2024 Miscellaneous Notes Called and set pt up with an appt on 03/27 at 1 pm with Danyel Chowdhury. Also will have link for eCare[employer]iary[employer] sent to pt via confirmed email. Sent in one month states pt is cleared to schedule. Attempted to call pt x 3 to get her set up with an appt. full so unable to leave a msg. [...] financial clearance is set up. Uses [facility]. Per , She needs to be called not 100% FAS. will let nurse know when okay to schedule. documented in this encounter [facility] 03-14-2024 Telephone encounter Note Sent in one month [facility] 03-14-2024 Telephone encounter Note FC states pt is cleared to schedule. Attempted to call pt x 3 to get her set up with an appt. full so unable to leave a msg. [facility] 03-14-2024 Telephone encounter Note Pt calling in [...] financial clearance is set up. Uses [facility] [place]. Per FC, She needs to be called not 100% FAS. FC will let nurse know when okay to schedule. [facility] 12-19-2023 Miscellaneous Notes Patient has been identified [...] Grecia Pepe Pss documented in this encounter [facility] 12-08-2023 History of Present illness Narrative Images [...] she prefers to drive herself. Nicci Neal APRN.INTERNATIONAL PROJECT MANAGER documented in this encounter [facility] 12-08-2023 Discharge summary Note Date/Time December 08, 2023 7:05pm [facility] Medical Records Department [address] [place] [address] Emergency Department Summary 12/08/23 MR#: [id number] Acct: [id number] Name: BEV WEBB Rep #:[id number] : 1975 48 From: Sushma Arzola MD [...] pain. No chest pain. No trouble breathing. [facility] Medical History Arthritis Atherosclerotic heart disease of [place] coronary artery without angina pectoris Essential (primary) [...] your Primary Care Provider. Call [facility] ([phone]) or report to the closest Emergency Room. Call 911 if necessary. 12/08/231905 <Electronically signed by Sushma Arzola MD> Cosigner Signature (if applicable): CC: Dr. 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 Period stopped on Tuesday. [...] PAP Janelle Leahy APRN.CNM documented [facility] Miscellaneous Notes* Telephone Encounter - Grecia Donato MA - 08/01/2023 2:46 PM EDT JOSE E 10/12/22 NOV none scheduled. Grecia Donato MA * Telephone Encounter - Denise aTlbot - 08/01/2023 2:42 PM EDT Patient has [...] and advise. Denise Talbot documented in this encounter[facility]23 Miscellaneous Notes* Telephone Encounter - Zahira Renteria [...] notify patient. Lorrie Suresh documented in this encounterOhio[facility]01-31-2023 Miscellaneous Notes* Telephone Encounter - Bev Frey Ma - 12/07/2022 1:09 PM EST I called and spoke with patient. Message from Jamilah given and patient verbalized understanding. * Telephone Encounter - Jamilah Santizo PA-C - 12/07/2022 12:50 PM EST She should remain off work for now, we will reevaluate at her visit on 2/2/23. * Telephone Encounter - Camryn Mundo COBB [...] as well. Please review and advise. Camryn Flower LPN documented in this encounterOhio[facility] History of Present illness Narrative* Macy Guerrero RN - 12/01/2022 11:05 AM EST TRANSITIONAL CARE MANAGEMENT (TCM) COMMUNITY MONITORING PROGRAM Provider Action/FYI: Patient is TCM eligible through Second Attempt: Second attempt to outreach patient for initial hospital discharge. No answer. Left message to return call at [phone] Left message with appointment reminder with PCP today PCP 12/01/2022 Ortho 12/02/2022 SUMMARY: Pt discharged from [facility] on 11/29/2022. 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 No answer, left a voicemail to return my call at [phone]. Will attempt to outreach to patient again later today or tomorrrow if no return call from patient. SUMMARY: Pt discharged from [facility] on 11/29/2022. 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 [employer] [phone] TCM Home Visit Referral Source of Stratification: [facility] Admission Status: Discharged Readmission Risk Score: 15 TIMOTEO Score: 2 Patient meets program referral criteria: No Patient does not qualify for High Risk TCM Home Visit program due to: Discharged home, does not meet program criteria Macy Guerrero RN November 30, 2022 10:50 AM documented in this encounterOhio[facility]-23-2023 NoteHNO ID: [id number] Author: Sherif Lu PA-C Service: Orthopaedic Surgery Author Type: Physician Tracer Bullet Section Supervisor Type: Progress Notes Filed: 11/29/2022 7:35 AM [...] 11/24/222029 VTE RISK CATEGORY: SURGICAL MODERATE RISK ([place]) Active VTE Medication Orders: Anticoagulant AND Antiplatelet Medications (From admission, onward) Start Dose Route Frequency Last Action Ordered Stop 11/25/22 0900 aspirin, enteric coated 81 mg tab(s) 81 mg ORAL DAILY Given, 11/28 83711/24/222019 -- Active VTE Prophylaxis Orders: 11/24/222029 VTE CURRENT ANTICOAG THERAPY ([place]) 11/24/222029 ACTIVITY - MOBILIZE PATIENT ([place]) PHYSICAL EXAMINATION: Left hand: Dressing clean, dry, [...] Call DATE: November 29, 2022 TIME: 7:30 AMSelect [id number] NoteHNO ID: [id number] Author: Ernst Jones MD Service: Orthopaedic Surgery [...] 11/24/222029 VTE RISK CATEGORY: SURGICAL MODERATE RISK ([place]) Active VTE Medication Orders: Anticoagulant AND Antiplatelet Medications (From admission, onward) Start Dose Route Frequency Last Action Ordered Stop 11/25/22 0900 aspirin, enteric coated 81 mg tab(s) 81 mg ORAL DAILY Given, 11/27 0847 11/24/222019 -- Active VTE Prophylaxis Orders: 11/24/222029 VTE CURRENT ANTICOAG THERAPY ([place]) 11/24/222029 ACTIVITY - MOBILIZE PATIENT ([place]) PHYSICAL EXAMINATION: Left Hand Dressing clean, [...] recent labs and imaging results. Ernst [facility] [id number] NoteHNO ID: [id number] Author: Ernst Jones MD Service: Orthopaedic Surgery [...] 11/24/222029 VTE RISK CATEGORY: SURGICAL MODERATE RISK ([place]) Active VTE Medication Orders: Anticoagulant AND Antiplatelet Medications (From admission, onward) Start Dose Route Frequency Last Action Ordered Stop 11/25/22 0900 aspirin, enteric coated 81 mg tab(s) 81 mg ORAL DAILY Given, 11/26 0811/24/222019 -- Active VTE Prophylaxis Orders: 11/24/222029 VTE CURRENT ANTICOAG THERAPY ([place]) 11/24/222029 ACTIVITY - MOBILIZE PATIENT ([place]) PHYSICAL EXAMINATION: Left Hand Dressing clean, [...] Most recent labs and imaging results. Ernst Jones, [facility] [id number] NoteHNO ID: [id number] Author: Sherif Lu PA-C Service: Orthopaedic Surgery Author Type: Physician Tracer Bullet Section Supervisor Type: Progress Notes Filed: 11/26/2022 8:43 AM [...] 11/24/222029 VTE RISK CATEGORY: SURGICAL MODERATE RISK ([place]) Active VTE Medication Orders: Anticoagulant AND Antiplatelet Medications (From admission, onward) Start Dose Route Frequency Last Action Ordered Stop 11/25/22 0900 aspirin, enteric coated 81 mg tab(s) 81 mg ORAL DAILY Given, 11/26 82811/24/222019 -- Active VTE Prophylaxis Orders: 11/24/222029 VTE CURRENT ANTICOAG THERAPY ([place]) 11/24/222029 ACTIVITY - MOBILIZE PATIENT ([place]) PHYSICAL EXAMINATION: Left Hand Dressing clean, [...] Call DATE: November 26, 2022 TIME: 8:40 AMSelect [facility] [id number] NoteHNO ID: [id number] Author: Sherif Lu PA-C Service: Orthopaedic Surgery Author Type: Physician Tracer Bullet Section Supervisor Type: Progress Notes Filed: 11/25/2022 10:17 AM [...] 11/24/222029 VTE RISK CATEGORY: SURGICAL MODERATE RISK ([place], [place]) Active VTE Medication Orders: Anticoagulant AND Antiplatelet Medications (From admission, onward) Start Dose Route Frequency Last Action Ordered Stop 11/25/22 0900 aspirin, enteric coated 81 mg tab(s) 81 mg ORAL DAILY Ordered 11/24/222019 -- Active VTE Prophylaxis Orders: 11/24/222029 VTE CURRENT ANTICOAG THERAPY (MI,[place]) 11/24/222029 ACTIVITY - MOBILIZE PATIENT ([place]) PHYSICAL EXAMINATION: Left Upper Extremity Dressing [...] Call DATE: November 25, 2022 TIME: 6:50 AMSelect [facility] Hospital [facility] [id number] History of Present illness Narrative* Beata Carnes Pr - 11/22/2022 8:[address] Hernández, patient presents for suture removal. The wound is well healed without signs of infection. The sutures are removed. Patient tolerated well. Patient scheduled for 6 week post op on 12/20/22. PT ASSESSMENT - CASTING ROOM Bev presents for Application of brace. Applied Marianela and Ortega Gel wrist brace to Left hand. Patient tolerated well. Patient has been instructed in Care and proper application of brace. Patient verbalized understanding. Beata Carnes Ma * Angel Luis Hernández MD - 11/22/2022 7:53 AM EST Angel Luis Hernández MD Department of Orthopaedics Orthopaedics [address] [facility] [address] Dept: [phone] Dept November 22, 2022 CHIEF COMPLAINT: Post [...] Angel Luis Hernández MD documented in this encounterOhiohealth Grady [facility] Hospital12-23-2022 Miscellaneous Notes* Telephone Encounter - Bev Frey Ma - 10/29/2022 8:17 AM EST Surgery has been scheduled as requested. * Telephone Encounter - Bev Frey Ma - 10/28/2022 1:52 PM EST Surgical [facility]. Post op appointments have been scheduled and mailed to patient. documented in this encounterOhiohealth Grady Memorial Hospital12-22-2022 History of Present illness Narrative* Angel Luis Hernández MD - 10/28/2022 1:05 PM EST Angel Luis Hernández MD Department of Orthopaedics Orthopaedics [address] [place] [address] Dept: [phone] Dept October 28, 2022 CHIEF COMPLAINT: New and Numbness of the Left Hand HPI Patient here today for left hand numbness and tingling. She reports this has gotten worse over the last year. She has been wearing a cock up brace that she bought at the drug store. 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 ASSESSMENT: G56.02 Carpal tunnel syndrome, left PLAN: [...] physician via US mail. Francy Bernard [address] [facility] [id number] Martinez Garcia MD [address] [facility] [address] Angel Luis Hernández MD documented in this encounterOhiohealth Grady Memorial Hospital12-07-2022 Miscellaneous Notes* Telephone Encounter - Hyun Haas LPN - 10/13/2022 6:31 PM EST Patient notified of results, verbalizes understanding of instructions. Hyun Haas LPN * Telephone Encounter - Francy Bernard APRN.INTERNATIONAL PROJECT MANAGER - 10/13/2022 5:22 PM EST Can please let patient know that I received her labs. Her potassium and magnesium were okay. Her white count was still a little elevated and she was just a little anemic. I would like to have her repeat these labs in 1-2 weeks to ensure they have normalized. The order is in. Francy Bernard APRN.SHERWIN documented in this encounterOhiohealth Grady Memorial Hospital12-02-2022 History of Present illness Narrative* Kelley Ramos PA-C - 10/08/2022 10:58 AM EST Patient [facility] with a chief complaint of [...] Squad called for transport. documented in this encounterOhiohealth Grady Memorial Hospital10-04-2022 History of Present illness Narrative* Traci Celis APRN.SHERWIN - 08/10/2022 12:01 PM EDT CC: Patient [...] Patient agreeable to treatment plan. Traci Celis APRN.CNP documented in this encounterOhiohealth Grady Memorial Hospital08-01-2022 Instructions* Patient Instructions* Lindsay Jose APRN.CNP - [...] the health of your heart. Developed by [employer]. Published by [employer]. Copyright 2014 [employer] and/or one of its subsidiaries. All rights reserved. documented in this encounterOhiohealth Grady Memorial Hospital08-01-2022 History of Present illness Narrative* Lindsay Gerardo Rebeca, MARYBETH.INTERNATIONAL PROJECT MANAGER - 06/07/2022 8:24 AM EDT Images from [...] use. Most recent ischemic evaluation with a [facility] 03/2021 found to have moderate [...] LE swelling. She has a membership at [employer] and wants to start exercising. She does [...] factor modification Dyspnea on exertion -given recent LHC with non obstructive likely 2/2 to pulmonary [...] 07, 2022, 8:24 AM documented in this encounterOhiohealth Grady Memorial Hospital06-29-2022 Miscellaneous Notes* Telephone Encounter - Bety Noriega [...] care provider or schedule a visit with [facility]. A test is not recommended to return to work/school when meeting the above criteria. documented in this encounterOhiohealth Grady Memorial Hospital05-04-2022 Miscellaneous Notes* Telephone Encounter - Teagan Desai [...] accordingly. Teagan Desai MA documented in this encounterOhiohealth Grady Memorial Hospital05-02-2022 Miscellaneous Notes* Telephone Encounter - Wayne Solorio [...] LPN * Telephone Encounter - Francy Bernard APRN.SHERWIN - 03/05/2022 1:16 PM EDT Can please let patient know that I received her lab results. Everything looks okay except that she is now a little bit anemic. She needs some additional lab work. I went ahead and put the orders in. She also needs an ifob completed. documented in this encounterOhiohealth Grady Memorial Hospital04-29-2022 Miscellaneous Notes* Telephone Encounter - CISCO Montaño - 03/05/2022 1:10 PM EDT TC to patient who verbalizes understanding of providers message. CISCO Montaño * Telephone Encounter - Francy Bernard APRN.CNP - 03/05/2022 1:06 PM EDT Can please let patient know that I received her EMG results. The results are consistent with carpaltunnel. Recommend to follow-up with Ortho, as scheduled. Francy Bernard APRN.CNP documented in this encounterOhiohealth Grady Memorial Hospital04-29-2022 History of Present illness Narrative* Ward Bernard [...] applicable. Ryann Bernard DO documented in this encounterOhiohealth Grady Memorial Hospital04-27-2022 Instructions* Patient Instructions* Francy Bernard APRN.CNP - 03/03/2022 11:51 AM EDT 1. Schedule w/ general surg (scope). 2. Schedule w/ ortho for the elbow. 3. Schedule the EMG (nerve conduction). Francy Bernard APRN.CNP documented in this encounterOhiohealth Grady Memorial Hospital04-27-2022 History of Present illness Narrative* Francy Bernard [...] APRN.SHERWIN This note was partially generated using [employer]meet voice recognition system. Note was reviewed for accuracy. There may be minor misspellings or grammar miscues with [employer]meet voice recognition. documented in this encounterOhiohealth Grady Memorial Hospital04-11-2022 Miscellaneous Notes* Telephone Encounter - Addis García [...] you. Addis García RN documented in this encounterOhiohealth Grady Memorial Hospital03-28-2022 History of Present illness Narrative* Rhea Pardo [...] 01, 2022 9:14 AM documented in this encounterOhiohealth Grady Memorial Hospital03-28-2022 History of Present illness Narrative* Wm Rayo [...] Wt 69.9 kg (154 lb) LMP 11/07/2021 [id number]% BMI 28.34 kg/m PHYSICAL EXAM: GEN: pleasant, [...] induce symptoms. 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 2+/4 radial [...] persists. Wm Rayo MD documented in this encounterOhiohealth Grady Memorial Hospital03-23-2022 Miscellaneous Notes* Telephone Encounter - Wayne Solorio [...] The orders are in. documented in this encounterOhiohealth Grady Memorial Hospital03-23-2022 Instructions* Patient Instructions* Francy Bernard APRN.CNP - 01/27/2022 8:10 AM EDT 1. Continue the same medications. 2. Go get your labwork. documented in this encounterOhiohealth Grady Memorial Hospital03-23-2022 History of Present illness Narrative* Francy Bernard APRN.CNP - 01/27/2022 7:47 AM EDT This is a 47 year old female who presents today with: Patient presents with: Follow Up: ER HISTORY OF PRESENT ILLNESS: Bev Webb is a 47 year old female. Patient presents with: Follow Up: ER Pt presents today for ER follow-up. She was at [facility] on 01/23/22. Refers that she hadn't been [...] improvement. Francy Bernard APRN.SHERWIN documented in this encounterOhiohealth Grady Memorial Hospital01-08-2022 History of Present illness Narrative* Mariella Worthington RT(R) - 11/14/2021 9:30 AM EST Radiology [...] 14, 2021 9:23 AM documented in this encounterOhiohealth Grady Memorial Hospital10-24-2018 History of Past illness Narrative* Problem Noted [...] Alicia Routine gynecological examination 01/15/2011 08/09/2012 Overview: [facility], [facility] [place] Cellulitis 09/17/2009 04/27/2017 ABNORMAL XRAY ABDOMINAL 10/08/2008 09/24/20 14 NAUSEA 10/08/2008 08/09/2012 ABDOMINAL PAIN( Periumbilical) 10/08/2008 1 Fever and other physiologic disturbances of temperature regulation 07/04/2008 08/09/2012 PAIN ABDOMEN( Epigastric) 07/04/20082011 Unspecified gastritis and ga stroduodenitis without mention of hemorrhage 08/16/2006 04/27/2017 Allergic rhinitis, cause unspecified 08/16/2006 04/27/2017 documented as of this encounter (statuses as of 01/27/2022) [facility]10-24-2018 History of Past illness Narrative* Problem Noted [...] Routine gynecological examination 01/15/2011 08/09/2012 Overview: [facility], [facility] [place] Cellulitis 09/17/2009 04/27/2017 ABNORMAL XRAY ABDOMINAL 10/08/2008 09/24/20 14 NAUSEA 10/08/2008 08/09/2012 ABDOMINAL PAIN( Periumbilical) 10/08/2008 1 Fever and other physiologic disturbances of temperature regulation 07/04/2008 08/09/2012 PAIN ABDOMEN( Epigastric) 07/04/20082011 Unspecified gastritis and ga stroduodenitis without mention of hemorrhage 08/16/2006 04/27/2017 Allergic rhinitis, cause unspecified 08/16/2006 04/27/2017 documented as of this encounter (statuses as of 01/27/2022) [facility]10[facility] History of Past illness Narrative* Problem Noted Date Resolved Date Chest pain 08/30/2018 08/30/2018 Overview: 2 days of L sided chest pain radiating to L arm and L neck. Similar in quality as in 2013 when she reportedly had elevated enzymes, positive stress test, and found to have coronary vasopasms on [facility]. Hx of anxiety, significant social [...] examination 01/15/2011 08/09/2012 Overview: [facility], [facility] [place] Cellulitis 09/17/2009 04/27/2017 ABNORMAL XRAY ABDOMINAL 10/08/2008 09/24/20 14 NAUSEA 10/08/2008 08/09/2012 ABDOMINAL PAIN( Periumbilical) 10/08/2008 1 Fever and other physiologic disturbances of temperature regulation 07/04/2008 08/09/2012 PAIN ABDOMEN( Epigastric) 07/04/20082011 Unspecified gastritis and ga stroduodenitis without mention of hemorrhage 08/16/2006 04/27/2017 Allergic rhinitis, cause unspecified 08/16/2006 04/27/2017 documented as of this encounter (statuses as of 02/01/2022) [facility] History of Past illness Narrative* Problem Noted [...] Alicia Routine gynecological examination 01/15/2011 08/09/2012 Overview: [facility], [facility] [place] Cellulitis 09/17/2009 04/27/2017 ABNORMAL XRAY ABDOMINAL 10/08/2008 09/24/20 14 NAUSEA 10/08/2008 08/09/2012 ABDOMINAL PAIN( Periumbilical) 10/08/2008 1 Fever and other physiologic disturbances of temperature regulation 07/04/2008 08/09/2012 PAIN ABDOMEN( Epigastric) 07/04/20082011 Unspecified gastritis and ga stroduodenitis without mention of hemorrhage 08/16/2006 04/27/2017 Allergic rhinitis, cause unspecified 08/16/2006 04/27/2017 documented as of this encounter (statuses as of 02/15/2022) [facility] of Past illness Narrative* Problem Noted [...] Alicia Routine gynecological examination 01/15/2011 08/09/2012 Overview: [facility], [facility] [place] Cellulitis 09/17/2009 04/27/2017 ABNORMAL XRAY ABDOMINAL 10/08/2008 09/24/20 14 NAUSEA 10/08/2008 08/09/2012 ABDOMINAL PAIN( Periumbilical) 10/08/2008 1 Fever and other physiologic disturbances of temperature regulation 07/04/2008 08/09/2012 PAIN ABDOMEN( Epigastric) 07/04/20082011 Unspecified gastritis and ga stroduodenitis without mention of hemorrhage 08/16/2006 04/27/2017 Allergic rhinitis, cause unspecified 08/16/2006 04/27/2017 documented as of this encounter (statuses as of 03/03/2022) [facility] of Past illness Narrative* Problem Noted Date Resolved Date Chest pain 08/30/2018 08/30/2018 Overview: 2 days of L sided chest pain radiating to L arm and L neck. Similar in quality as in 2013 when she reportedly had elevated enzymes, positive stress test, and found to have coronary vasopasms on [facility]. Hx of anxiety, significant social [...] Alicia Routine gynecological examination 01/15/2011 08/09/2012 Overview: [facility], [facility] [place] Cellulitis 09/17/2009 04/27/2017 ABNORMAL XRAY ABDOMINAL 10/08/2008 09/24/20 14 NAUSEA 10/08/2008 08/09/2012 ABDOMINAL PAIN( Periumbilical) 10/08/2008 1 Fever and other physiologic disturbances of temperature regulation 07/04/2008 08/09/2012 PAIN ABDOMEN( Epigastric) 07/04/20082011 Unspecified gastritis and ga stroduodenitis without mention of hemorrhage 08/16/2006 04/27/2017 Allergic rhinitis, cause unspecified 08/16/2006 04/27/2017 documented as of this encounter (statuses as of 03/05/2022) [facility] of Past illness Narrative* Problem Noted Date Resolved Date Chest pain 08/30/2018 08/30/2018 Overview: 2 days of L sided chest pain radiating to L arm and L neck. Similar in quality as in 2013 when she reportedly had elevated enzymes, positive stress test, and found to have coronary vasopasms on [facility]. Hx of anxiety, significant social [...] Alicia Routine gynecological examination 01/15/2011 08/09/2012 Overview: [facility], [facility] [place] Cellulitis 09/17/2009 04/27/2017 ABNORMAL XRAY ABDOMINAL 10/08/2008 09/24/20 14 NAUSEA 10/08/2008 08/09/2012 ABDOMINAL PAIN( Periumbilical) 10/08/2008 1 Fever and other physiologic disturbances of temperature regulation 07/04/2008 08/09/2012 PAIN ABDOMEN( Epigastric) 07/04/20082011 Unspecified gastritis and ga stroduodenitis without mention of hemorrhage 08/16/2006 04/27/2017 Allergic rhinitis, cause unspecified 08/16/2006 04/27/2017 documented as of this encounter (statuses as of 03/05/2022) [facility] of [facility] illness Narrative* Problem Noted [...] Routine gynecological examination 01/15/2011 08/09/2012 Overview: [facility], [facility] [place] Cellulitis 09/17/2009 04/27/2017 ABNORMAL XRAY ABDOMINAL 10/08/2008 09/24/20 14 NAUSEA 10/08/2008 08/09/2012 ABDOMINAL PAIN( Periumbilical) 10/08/2008 1 Fever and other physiologic disturbances of temperature regulation 07/04/2008 08/09/2012 PAIN ABDOMEN( Epigastric) 07/04/20082011 Unspecified gastritis and ga stroduodenitis without mention of hemorrhage 08/16/2006 04/27/2017 Allergic rhinitis, cause unspecified 08/16/2006 04/27/2017 documented as of this encounter (statuses as of 03/08/2022) [facility] of [facility] illness Narrative* Problem Noted [...] Routine general medical exam ination at a [facility] care facility 01/15/2011 08/09/2012 Overview: 01/15/2011, from Dr. Alicia Routine gynecological examination 01/15/2011 08/09/2012 Overview: [facility], [facility] [place] Cellulitis 09/17/2009 04/27/2017 ABNORMAL XRAY ABDOMINAL 10/08/2008 09/24/20 14 NAUSEA 10/08/2008 08/09/2012 ABDOMINAL PAIN( Periumbilical) 10/08/2008 1 Fever and other physiologic disturbances of temperature regulation 07/04/2008 08/09/2012 PAIN ABDOMEN( Epigastric) 07/04/20082011 Unspecified gastritis and ga stroduodenitis without mention of hemorrhage 08/16/2006 04/27/2017 Allergic rhinitis, cause unspecified 08/16/2006 04/27/2017 documented as of this encounter (statuses as of 03/10/2022) [facility] illness Narrative* Problem Noted [...] Alicia Routine gynecological examination 01/15/2011 08/09/2012 Overview: [facility], [facility] [place] Cellulitis 09/17/2009 04/27/2017 ABNORMAL XRAY ABDOMINAL 10/08/2008 09/24/20 14 NAUSEA 10/08/2008 08/09/2012 ABDOMINAL PAIN( Periumbilical) 10/08/2008 1 Fever and other physiologic disturbances of temperature regulation 07/04/2008 08/09/2012 PAIN ABDOMEN( Epigastric) 07/04/20082011 Unspecified gastritis and ga stroduodenitis without mention of hemorrhage 08/16/2006 04/27/2017 Allergic rhinitis, cause unspecified 08/16/2006 04/27/2017 documented as of this encounter (statuses as of 05/05/2022) [facility] Narrative* Problem Noted Date Resolved Date Chest pain 08/30/2018 08/30/2018 Overview: 2 days of L sided chest pain radiating to L arm and L neck. Similar in quality as in 2013 when she reportedly had elevated enzymes, positive stress test, and found to have coronary vasopasms on [facility]. Hx of anxiety, significant social [...] positive stress test in 2013 with subsequent C showing 50% stenosis of LAD and 40-50% [...] Alicia Routine gynecological examination 01/15/2011 08/09/2012 Overview: [facility], [facility] [place] Cellulitis 09/17/2009 04/27/2017 ABNORMAL XRAY ABDOMINAL 10/08/2008 09/24/20 14 NAUSEA 10/08/2008 08/09/2012 ABDOMINAL PAIN( Periumbilical) 10/08/2008 1 Fever and other physiologic disturbances of temperature regulation 07/04/2008 08/09/2012 PAIN ABDOMEN( Epigastric) 07/04/20082011 Unspecified gastritis and ga stroduodenitis without mention of hemorrhage 08/16/2006 04/27/2017 Allergic rhinitis, cause unspecified 08/16/2006 04/27/2017 documented as of this encounter (statuses as of 05/10/2022) [facility] Narrative* Problem Noted [...] Alicia Routine gynecological examination 01/15/2011 08/09/2012 Overview: [facility], [facility] [place] Cellulitis 09/17/2009 04/27/2017 ABNORMAL XRAY ABDOMINAL 10/08/2008 09/24/20 14 NAUSEA 10/08/2008 08/09/2012 ABDOMINAL PAIN( Periumbilical) 10/08/2008 1 Fever and other physiologic disturbances of temperature regulation 07/04/2008 08/09/2012 PAIN ABDOMEN( Epigastric) 07/04/20082011 Unspecified gastritis and ga stroduodenitis without mention of hemorrhage 08/16/2006 04/27/2017 Allergic rhinitis, cause unspecified 08/16/2006 04/27/2017 documented as of this encounter (statuses as of 06/07/2022) [facility] Narrative* Problem Noted [...] Routine gynecological examination 01/15/2011 08/09/2012 Overview: [facility], [facility] [place] Cellulitis 09/17/2009 04/27/2017 ABNORMAL XRAY ABDOMINAL 10/08/2008 09/24/20 14 NAUSEA 10/08/2008 08/09/2012 ABDOMINAL PAIN( Periumbilical) 10/08/2008 1 Fever and other physiologic disturbances of temperature regulation 07/04/2008 08/09/2012 PAIN ABDOMEN( Epigastric) 07/04/20082011 Unspecified gastritis and ga stroduodenitis without mention of hemorrhage 08/16/2006 04/27/2017 Allergic rhinitis, cause unspecified 08/16/2006 04/27/2017 documented as of this encounter (statuses as of 08/10/2022) [facility] Narrative* Problem Noted [...] Alicia Routine gynecological examination 01/15/2011 08/09/2012 Overview: [facility], [facility] [place] Cellulitis 09/17/2009 04/27/2017 ABNORMAL XRAY ABDOMINAL 10/08/2008 09/24/20 14 NAUSEA 10/08/2008 08/09/2012 ABDOMINAL PAIN( Periumbilical) 10/08/2008 1 Fever and other physiologic disturbances of temperature regulation 07/04/2008 08/09/2012 PAIN ABDOMEN( Epigastric) 07/04/20082011 Unspecified gastritis and ga stroduodenitis without mention of hemorrhage 08/16/2006 04/27/2017 Allergic rhinitis, cause unspecified 08/16/2006 04/27/2017 documented as of this encounter (statuses as of 10/08/2022) [facility] Narrative* Problem Noted [...] Alicia Routine gynecological examination 01/15/2011 08/09/2012 Overview: [facility], [facility] [place] Cellulitis 09/17/2009 04/27/2017 ABNORMAL XRAY ABDOMINAL 10/08/2008 09/24/20 14 NAUSEA 10/08/2008 08/09/2012 ABDOMINAL PAIN( Periumbilical) 10/08/2008 1 Fever and other physiologic disturbances of temperature regulation 07/04/2008 08/09/2012 PAIN ABDOMEN( Epigastric) 07/04/20082011 Unspecified gastritis and ga stroduodenitis without mention of hemorrhage 08/16/2006 04/27/2017 Allergic rhinitis, cause unspecified 08/16/2006 04/27/2017 documented as of this encounter (statuses as of 10/29/2022) [facility] Narrative* Problem Noted [...] Routine gynecological examination 01/15/2011 08/09/2012 Overview: [facility], [facility] [place] Cellulitis 09/17/2009 04/27/2017 ABNORMAL XRAY ABDOMINAL 10/08/2008 09/24/20 14 NAUSEA 10/08/2008 08/09/2012 ABDOMINAL PAIN( Periumbilical) 10/08/2008 1 Fever and other physiologic disturbances of temperature regulation 07/04/2008 08/09/2012 PAIN ABDOMEN( Epigastric) 07/04/20082011 Unspecified gastritis and ga stroduodenitis without mention of hemorrhage 08/16/2006 04/27/2017 Allergic rhinitis, cause unspecified 08/16/2006 04/27/2017 documented as of this encounter (statuses as of 10/30/2022) [facility] Narrative* Problem Noted [...] Routine gynecological examination 01/15/2011 08/09/2012 Overview: [facility], [facility] [place] Cellulitis 09/17/2009 04/27/2017 ABNORMAL XRAY ABDOMINAL 10/08/2008 09/24/20 14 NAUSEA 10/08/2008 08/09/2012 ABDOMINAL PAIN( Periumbilical) 10/08/2008 1 Fever and other physiologic disturbances of temperature regulation 07/04/2008 08/09/2012 PAIN ABDOMEN( Epigastric) 07/04/20082011 Unspecified gastritis and ga stroduodenitis without mention of hemorrhage 08/16/2006 04/27/2017 Allergic rhinitis, cause unspecified 08/16/2006 04/27/2017 documented as of this encounter (statuses as of 11/10/2022) [facility] Narrative* Problem Noted Date Resolved Date Chest pain 08/30/2018 08/30/2018 Overview: 2 days of L sided chest pain radiating to L arm and L neck. Similar in quality as in 2013 when she reportedly had elevated enzymes, positive stress test, and found to have coronary vasopasms on [facility]. Hx of anxiety, significant social [...] IVF Cardiology consult Herpes simplex infection 03/18/2016 06/21/2 017 Lymphadenopathy 06/06/2014 04/27/2017 Tinea versicolor 01/29/2011 09/24/2014 Post-inflammatory hyperpigmentation 01/29/2011 09/24/2014 Pruritus 01/29/2011 09/24/2014 Routine general medical exam ination at a health care facility 01/15/2011 08/09/2012 Overview: 01/15/2011, from Dr. Alicia Routine gynecological examination 01/15/2011 08/09/2012 [facility]: [facility] [facility], [facility] [place] Cellulitis 09/17/2009 04/27/2017 ABNORMAL XRAY ABDOMINAL 10/08/2008 09/24/20 14 NAUSEA 10/08/2008 08/09/2012 ABDOMINAL PAIN( Periumbilical) 10/08/2008 1 Fever and other physiologic disturbances of temperature regulation 07/04/2008 08/09/2012 PAIN ABDOMEN( Epigastric) 07/04/20082011 Unspecified gastritis and ga stroduodenitis without mention of hemorrhage 08/16/2006 04/27/2017 Allergic rhinitis, cause unspecified 08/16/2006 04/27/2017 documented as of this encounter (statuses as of 11/22/2022) [facility] History of Past illness Narrative* Problem Noted [...] facility 01/15/2011 08/09/2012 Overview: 01/15/2011, from Dr. Alciia Routine gynecological examination 01/15/2011 08/09/2012 Overview: [facility], [facility] [place] Cellulitis 09/17/2009 04/27/2017 ABNORMAL XRAY ABDOMINAL 10/08/2008 09/24/20 14 NAUSEA 10/08/2008 08/09/2012 ABDOMINAL PAIN( Periumbilical) 10/08/2008 1 Fever and other physiologic disturbances of temperature regulation 07/04/2008 08/09/2012 PAIN ABDOMEN( Epigastric) 07/04/20082011 Unspecified gastritis and ga stroduodenitis without mention of hemorrhage 08/16/2006 04/27/2017 Allergic rhinitis, cause unspecified 08/16/2006 04/27/2017 documented as of this encounter (statuses as of 11/24/2022) [facility] History of Past illness Narrative* Problem Noted Date Resolved Date Chest pain 08/30/2018 08/30/2018 Overview: 2 days of L sided chest pain radiating to L arm and L neck. Similar in quality as in 2013 when she reportedly had elevated enzymes, positive stress test, and found to have coronary vasopasms on [facility]. Hx of anxiety, significant social [...] Routine gynecological examination 01/15/2011 08/09/2012 Overview: [facility], [facility] [place] Cellulitis 09/17/2009 04/27/2017 ABNORMAL XRAY ABDOMINAL 10/08/2008 09/24/20 14 NAUSEA 10/08/2008 08/09/2012 ABDOMINAL PAIN( Periumbilical) 10/08/2008 1 Fever and other physiologic disturbances of temperature regulation 07/04/2008 08/09/2012 PAIN ABDOMEN( Epigastric) 07/04/20082011 Unspecified gastritis and ga stroduodenitis without mention of hemorrhage 08/16/2006 04/27/2017 Allergic rhinitis, cause unspecified 08/16/2006 04/27/2017 documented as of this encounter (statuses as of 12/01/2022) [facility] History of Past illness Narrative* Problem Noted [...] Alicia Routine gynecological examination 01/15/2011 08/09/2012 Overview: [facility], [facility] [place] Cellulitis 09/17/2009 04/27/2017 ABNORMAL XRAY ABDOMINAL 10/08/2008 09/24/20 14 NAUSEA 10/08/2008 08/09/2012 ABDOMINAL PAIN( Periumbilical) 10/08/2008 1 Fever and other physiologic disturbances of temperature regulation 07/04/2008 08/09/2012 PAIN ABDOMEN( Epigastric) 07/04/20082011 Unspecified gastritis and ga stroduodenitis without mention of hemorrhage 08/16/2006 04/27/2017 Allergic rhinitis, cause unspecified 08/16/2006 04/27/2017 documented as of this encounter (statuses as of 12/07/2022) [facility] History of Past illness Narrative* Problem Noted [...] Alicia Routine gynecological examination 01/15/2011 08/09/2012 Overview: [facility], [facility] [place] Cellulitis 09/17/2009 04/27/2017 ABNORMAL XRAY ABDOMINAL 10/08/2008 09/24/20 14 NAUSEA 10/08/2008 08/09/2012 ABDOMINAL PAIN( Periumbilical) 10/08/2008 1 Fever and other physiologic disturbances of temperature regulation 07/04/2008 08/09/2012 PAIN ABDOMEN( Epigastric) 07/04/20082011 Unspecified gastritis and ga stroduodenitis without mention of hemorrhage 08/16/2006 04/27/2017 Allergic rhinitis, cause unspecified 08/16/2006 04/27/2017 documented as of this encounter (statuses as of 02/19/2023) [facility] History of Past illness Narrative* Problem Noted [...] Alicia Routine gynecological examination 01/15/2011 08/09/2012 Overview: [facility], [facility] [place] Cellulitis 09/17/2009 04/27/2017 ABNORMAL XRAY ABDOMINAL 10/08/200809/07 NAUSEA 10/08/2008 08/09/2012 ABDOMINAL PAIN( Periumbilical) 10/08/2008 08/09/2012 Fever and other physiologic disturbances of temperature regulation 07/04/2008 08/09/2012 PAIN ABDOMEN( Epigastric) 07/04/2008 Unspecified gastritis and ga stroduodenitis without mention of hemorrhage 08/16/2006 04/27/2017 Allergic rhinitis, cause unspecified 08/16/2006 04/27/2017 documented as of this encounter (statuses as of 08/02/2023) [facility] History of Past illness Narrative* Problem Noted Date Diagnosed Date Resolved Date Chest pain 08/30/2018 08/30/2018 Overview: 2 days of L sided chest pain radiating to L arm and L neck. Similar in quality as in 2013 when she reportedly had elevated enzymes, positive stress test, and found to have coronary vasopasms on [facility]. Hx of anxiety, significant social [...] Alicia Routine gynecological examination 01/15/2011 08/09/2012 Overview: [facility], [facility] [place] Cellulitis 09/17/2009 04/27/2017 ABNORMAL XRAY ABDOMINAL 10/08/200809/07 NAUSEA 10/08/2008 08/09/2012 ABDOMINAL PAIN( Periumbilical) 10/08/2008 08/09/2012 Fever and other physiologic disturbances of temperature regulation 07/04/2008 08/09/2012 PAIN ABDOMEN( Epigastric) 07/04/2008 Unspecified gastritis and ga stroduodenitis without mention of hemorrhage 08/16/2006 04/27/2017 Allergic rhinitis, cause unspecified 08/16/2006 04/27/2017 documented as of this encounter (statuses as of 08/05/2023) [facility] History of Past illness Narrative* Problem Noted [...] Alicia Routine gynecological examination 01/15/2011 08/09/2012 Overview: [facility], [facility] [place] Cellulitis 09/17/2009 04/27/2017 ABNORMAL XRAY ABDOMINAL 10/08/200809/07 NAUSEA 10/08/2008 08/09/2012 ABDOMINAL PAIN( Periumbilical) 10/08/2008 08/09/2012 Fever and other physiologic disturbances of temperature regulation 07/04/2008 08/09/2012 PAIN ABDOMEN( Epigastric) 07/04/2008 Unspecified gastritis and ga stroduodenitis without mention of hemorrhage 08/16/2006 04/27/2017 Allergic rhinitis, cause unspecified 08/16/2006 04/27/2017 documented as of this encounter (statuses as of 09/11/2023) [facility] History of Past illness Narrative* Problem Noted [...] Alicia Routine gynecological examination 01/15/2011 08/09/2012 Overview: [facility], [facility] [place] Cellulitis 09/17/2009 04/27/2017 ABNORMAL XRAY ABDOMINAL 10/08/200809/07 NAUSEA 10/08/2008 08/09/2012 ABDOMINAL PAIN( Periumbilical) 10/08/2008 08/09/2012 Fever and other physiologic disturbances of temperature regulation 07/04/2008 08/09/2012 PAIN ABDOMEN( Epigastric) 07/04/2008 Unspecified gastritis and ga stroduodenitis without mention of hemorrhage 08/16/2006 04/27/2017 Allergic rhinitis, cause unspecified 08/16/2006 04/27/2017 documented as of this encounter (statuses as of 12/09/2023) [facility] History of Past illness Narrative* Problem Noted [...] Alicia Routine gynecological examination 01/15/2011 08/09/2012 Overview: [facility], [facility] Cellulitis 09/17/2009 04/27/2017 ABNORMAL XRAY ABDOMINAL 10/08/200809/07 NAUSEA 10/08/2008 08/09/2012 ABDOMINAL PAIN( Periumbilical) 10/08/2008 08/09/2012 Fever and other physiologic disturbances of temperature regulation 07/04/2008 08/09/2012 PAIN ABDOMEN( Epigastric) 07/04/2008 Unspecified gastritis and ga stroduodenitis without mention of hemorrhage 08/16/2006 04/27/2017 Allergic rhinitis, cause unspecified 08/16/2006 04/27/2017 documented as of this encounter (statuses as of 12/19/2023) [facility] Ej Luther [facility] August 01, 2023 12:05pm Note Date/Time August 01, 2023 10:39am [facility] Medical Records Department [address] [place] [address] Emergency Department Summary 08/01/23 MR#: [id number] Acct: [id number] Name: BEV WEBB Rep #:[id number] : 1975 48 From: Ej Luther MD [...] lightheaded and weak. She was toldby her MANUFACTURING COORDINATOR to come to the emergency department to help rule out ectopic . She denies any pelvic pain however. Her main concern is that she islightheaded and tired, and she has been passing a large amount of large clots over the last few days. Her lightheadedness is not necessarily worse with standing or walking. She denies any chest pain or shortness of breath. [facility] Medical History Arthritis Atherosclerotic heart disease of [place] coronary artery without angina pectoris Essential (primary) [...] safely home with follow- up to her MANUFACTURING COORDINATOR as scheduled. She was given Toradol 15 [...] % (Auto) 65.1 Lymph % (Auto) 21.4 Mck[place] % (Auto) 7.7 Eos % (Auto) 4.5 [...] Clarity Clear Urine pH 6.5 Ur Specific [place] 1.010 Urine Protein Negative Urine Glucose (UA) [...] possible Activity Restrictions/Additional Instructions: Follow-up with your MANUFACTURING COORDINATOR as scheduled. Disposition Disposition: Home, Self Care What to do if you have Problems For any increased pain, shortness of breath, bleeding, nausea or vomiting, chestpain, or any unexpected problems, contact your Primary Care Provider. Call [facility] ([phone]) or report to the closest Emergency Room. Call 911 if necessary. 08/01/23 1205 <Electronically signed by jE Luther MD> Cosigner Signature (if applicable): CC: Dr. Martinez Garcia MD ~ Signed [facility] Work Phone: Evaluation note* Diagnosis Fatigue, unspecified type- Primary Leukocytosis, unspecified type Hypokalemia Hypopotassemia Primary hypertension Unspecified essential hypertension Hyperlipidemia, unspecified hyperlipidemia type Gastroesophageal reflux disease, unspecified whether esophagitis present documented in this encounter [facility] note* Diagnosis Leukocytosis, unspecified type- Primary Hypokalemia Hypopotassemia Hypomagnesemia Disorders of magnesium metabolism Abnormal urinalysis Other nonspecific finding on examination of urine [facility] Diagnosis Left elbow pain- Primary Pain in joint, upper arm Numbness of fingers Disturbance of skin sensation [facility] Diagnosis Adjustment disorder with anxiety Grief reaction with prolonged bereavement [facility] Diagnosis Left elbow pain- Primary Pain in joint, upper arm Skin sensation disturbance Disturbance of skin sensation [facility] Diagnosis Left elbow pain Pain in joint, upper arm Skin sensation disturbance Disturbance of skin sensation Carpal tunnel syndrome, left upper limb Pain in left arm [facility]* Diagnosis Anemia, unspecified type- Primary documented [facility] noteNo assessment information availableWMercy [facility] Work Phone: Evaluation note* Diagnosis Encounter for screening mammogram for breast cancer [facility]* Diagnosis Coronary artery disease involving [place] coronary artery of [place] heart without angina pectoris- Primary Primary hypertension Unspecified essential hypertension Hyperlipidemia, unspecified hyperlipidemia type Palpitations Tobacco use disorder, continuous Tobacco use disorder CARDOZA (dyspnea on exertion) Other dyspnea and respiratory abnormality [facility]* Diagnosis Sinus congestion- Primary Other diseases of nasal cavity and sinuses Acute cough [facility]* Diagnosis Syncope, unspecified syncope type- Primary [facility]* Diagnosis Carpal tunnel syndrome, left Carpal tunnel syndrome Carpal tunnel syndrome on left Carpal tunnel syndrome [facility]* Diagnosis Carpal tunnel syndrome on left- Primary Carpal tunnel syndrome Carpal tunnel syndrome on left Carpal tunnel syndrome [facility]* Diagnosis Leukocytosis, unspecified type- Primary [facility] Diagnosis Carpal tunnel syndrome of left wrist- Primary Carpal tunnel syndrome [facility]* Diagnosis Infection of hand- Primary Unspecified local infection of skin and subcutaneous tissue [facility]* Diagnosis Adjustment disorder with anxiety Grief reaction with prolonged bereavement [facility] Diagnosis Adjustment disorder with anxiety Grief reaction with prolonged bereavement [facility]* Diagnosis Dysmenorrhea- Primary Menorrhagia, premenopausal Premenopausal menorrhagia Pelvic pain in female Unspecified symptom associated with female genital organs [facility]* Diagnosis Dysmenorrhea Menorrhagia, premenopausal Premenopausal menorrhagia documented [facility] this [facility]* Diagnosis Pain in both lower legs- Primary Discoloration of skin of lower leg Dyschromia, unspecified [facility]* Diagnosis Adjustment disorder with anxiety Grief reaction with prolonged bereavement [facility]* Diagnosis Adjustment disorder with anxiety Grief reaction with prolonged bereavement documented in this encounter [facility] note* Diagnosis Encounter for screening mammogram for breast cancer documented in this encounter [facility] note* Diagnosis Coronary artery disease involving [place] coronary artery of [place] heart with angina pectoris (HCC)- Primary Mixed [...] unspecified Dysmenorrhea Metrorrhagia documented [facility]* Diagnosis Adjustment disorder with anxiety Grief reaction with prolonged bereavement documented in this encounter [facility] note* Diagnosis Chest pain, unspecified type- Primary Dyspnea, unspecified type Hypokalemia Hypopotassemia Leukocytosis, unspecified type Chest pain Chest pain, unspecified Tobacco use disorder Polysubstance abuse (HCC) Other, mixed, or unspecified nondependent drug abuse, unspecified Pre-operative examination- Primary Preoperative examination, unspecified Coronary artery disease involving [place] heart without angina pectoris, unspecified vessel or [...] with prolonged bereavement documented in this encounter [facility] note* Diagnosis Chest pain, unspecified type- Primary Dyspnea, unspecified type Hypokalemia Hypopotassemia Leukocytosis, unspecified type Chest pain Chest pain, unspecified Tobacco use disorder Hyperlipidemia Other and unspecified hyperlipidemia Polysubstance abuse (HCC) Other, mixed, or unspecified nondependent drug abuse, unspecified Hypertension Unspecified essential hypertension Left elbow pain Pain in joint, upper arm Pre-operative examination- Primary Preoperative examination, unspecified Coronary artery disease involving [place] heart without angina pectoris, unspecified vessel or lesion type Gastroesophageal reflux disease, unspecified whether esophagitis present Anxiety state Anxiety state, unspecified Polysubstance abuse (HCC) Other, mixed, or unspecified nondependent drug abuse, unspecified Hyperlipidemia, unspecified hyperlipidemia type Tobacco use disorder Subcutaneous emphysema resulting from a procedure, sequela Primary hypertension Unspecified essential hypertension documented in this encounter [facility] note* Diagnosis Chest pain, unspecified type- Primary Dyspnea, unspecified type Hypokalemia Hypopotassemia Leukocytosis, unspecified type Chest pain Chest pain, unspecified Tobacco use disorder Hyperlipidemia Other and unspecified hyperlipidemia Polysubstance abuse (HCC) Other, mixed, or unspecified nondependent drug abuse, unspecified Hypertension Unspecified essential hypertension Cough Pre-operative examination- Primary Preoperative examination, unspecified Coronary artery disease involving [place] heart without angina pectoris, unspecified vessel or lesion type Gastroesophageal reflux disease, unspecified whether esophagitis present Anxiety state Anxiety state, unspecified Polysubstance abuse (HCC) Other, mixed, or unspecified nondependent drug abuse, unspecified Hyperlipidemia, unspecified hyperlipidemia type Tobacco use disorder Subcutaneous emphysema resulting from a procedure, sequela Primary hypertension Unspecified essential hypertension documented in this encounter [facility] note* Diagnosis Chest pain, unspecified type- Primary Dyspnea, unspecified type Hypokalemia Hypopotassemia Leukocytosis, unspecified type Chest pain Chest pain, unspecified Tobacco use disorder Polysubstance abuse (HCC) Other, mixed, or unspecified nondependent drug abuse, unspecified Pre-operative examination- Primary Preoperative examination, unspecified Coronary artery disease involving [place] heart without angina pectoris, unspecified vessel or [...] with prolonged [facility]avement [facility] Chest pain, unspecified type- Primary Dyspnea, unspecified type Hypokalemia Hypopotassemia Leukocytosis, unspecified type Chest pain Chest pain, unspecified Tobacco use disorder Polysubstance abuse (HCC) Other, mixed, or unspecified nondependent drug abuse, unspecified Pre-operative examination- Primary Preoperative examination, unspecified Coronary artery disease involving [place] heart without angina pectoris, unspecified vessel or [...] bronchitis with exacerbation documented in this encounter [facility] note* Diagnosis Chest pain, unspecified type- Primary Dyspnea, unspecified type Hypokalemia Hypopotassemia Leukocytosis, unspecified type Chest pain Chest pain, unspecified Tobacco use disorder Polysubstance abuse (HCC) Other, mixed, or unspecified nondependent drug abuse, unspecified Pre-operative examination- Primary Preoperative examination, unspecified Coronary artery disease involving [place] heart without angina pectoris, unspecified vessel or [...] of magnesium metabolism documented in this encounter [facility] note* Diagnosis Chest pain, unspecified type- Primary Dyspnea, unspecified type Hypokalemia Hypopotassemia Leukocytosis, unspecified type Chest pain Chest pain, unspecified Tobacco use disorder Polysubstance abuse (HCC) Other, mixed, or unspecified nondependent drug abuse, unspecified Pre-operative examination- Primary Preoperative examination, unspecified Coronary artery disease involving [place] heart without angina pectoris, unspecified vessel or lesion type Gastroesophageal reflux disease, unspecified whether esophagitis present Anxiety state Anxiety state, unspecified Polysubstance abuse (HCC) Other, mixed, or unspecified nondependent drug abuse, unspecified Hyperlipidemia, unspecified hyperlipidemia type Tobacco use disorder Subcutaneous emphysema resulting from a procedure, sequela Primary hypertension Unspecified essential hypertension Leukocytosis, unspecified type- Primary documented in this encounter [facility] note* Diagnosis Chest pain, unspecified type- Primary Dyspnea, unspecified type Hypokalemia Hypopotassemia Leukocytosis, unspecified type Chest pain Chest pain, unspecified Tobacco use disorder Polysubstance abuse (HCC) Other, mixed, or unspecified nondependent drug abuse, unspecified Pre-operative examination- Primary Preoperative examination, unspecified Coronary artery disease involving [place] heart without angina pectoris, unspecified vessel or [...] acute recurrent sinusitis documented in this encounter [facility] note* Diagnosis Chest pain, unspecified type- Primary Dyspnea, unspecified type Hypokalemia Hypopotassemia Leukocytosis, unspecified type Chest pain Chest pain, unspecified Tobacco use disorder Polysubstance abuse (HCC) Other, mixed, or unspecified nondependent drug abuse, unspecified Pre-operative examination- Primary Preoperative examination, unspecified Coronary artery disease involving [place] heart without angina pectoris, unspecified vessel or lesion type Gastroesophageal reflux disease, unspecified whether esophagitis present Anxiety state Anxiety state, unspecified Polysubstance abuse (HCC) Other, mixed, or unspecified nondependent drug abuse, unspecified Hyperlipidemia, unspecified hyperlipidemia type Tobacco use disorder Subcutaneous emphysema resulting from a procedure, sequela Primary hypertension Unspecified essential hypertension Leukocytosis, unspecified type- Primary documented in this encounter [facility] note* Diagnosis Chest pain, unspecified type- Primary Dyspnea, unspecified type Hypokalemia Hypopotassemia Leukocytosis, unspecified type Chest pain Chest pain, unspecified Tobacco use disorder Polysubstance abuse (HCC) Other, mixed, or unspecified nondependent drug abuse, unspecified Pre-operative examination- Primary Preoperative examination, unspecified Coronary artery disease involving [place] heart without angina pectoris, unspecified vessel or lesion type Gastroesophageal reflux disease, unspecified whether esophagitis present Anxiety state Anxiety state, unspecified Polysubstance abuse (HCC) Other, mixed, or unspecified nondependent drug abuse, unspecified Hyperlipidemia, unspecified hyperlipidemia type Tobacco use disorder Subcutaneous emphysema resulting from a procedure, sequela Primary hypertension Unspecified essential hypertension Leukocytosis, unspecified type- Primary Thrombocytosis Essential thrombocythemia documented in this encounter [facility] note* Diagnosis Chest pain, unspecified type- Primary Dyspnea, unspecified type Hypokalemia Hypopotassemia Leukocytosis, unspecified type Chest pain Chest pain, unspecified Tobacco use disorder Polysubstance abuse (HCC) Other, mixed, or unspecified nondependent drug abuse, unspecified Pre-operative examination- Primary Preoperative examination, unspecified Coronary artery disease involving [place] heart without angina pectoris, unspecified vessel or [...] Unspecified essential hypertension documented in this encounter [facility] [facility] note* Diagnosis Chest pain, unspecified type- Primary Dyspnea, unspecified type Hypokalemia Hypopotassemia Leukocytosis, unspecified type Chest pain Chest pain, unspecified Tobacco use disorder Polysubstance abuse (HCC) Other, mixed, or unspecified nondependent drug abuse, unspecified Pre-operative examination- Primary Preoperative examination, unspecified Coronary artery disease involving [place] heart without angina pectoris, unspecified vessel or lesion type Gastroesophageal reflux disease, unspecified whether esophagitis present Anxiety state Anxiety state, unspecified Polysubstance abuse (HCC) Other, mixed, or unspecified nondependent drug abuse, unspecified Hyperlipidemia, unspecified hyperlipidemia type Tobacco use disorder Subcutaneous emphysema resulting from a procedure, sequela Primary hypertension Unspecified essential hypertension Encounter for screening mammogram for breast cancer documented in this encounter [facility] note* Diagnosis Chest pain, unspecified type- Primary Dyspnea, unspecified type Hypokalemia Hypopotassemia Leukocytosis, unspecified type Chest pain Chest pain, unspecified Tobacco use disorder Polysubstance abuse (HCC) Other, mixed, or unspecified nondependent drug abuse, unspecified Pre-operative examination- Primary Preoperative examination, unspecified Coronary artery disease involving [place] heart without angina pectoris, unspecified vessel or [...] with prolonged bereavement documented in this encounter [facility] note* Diagnosis Chest pain, unspecified type- Primary Dyspnea, unspecified type Hypokalemia Hypopotassemia Leukocytosis, unspecified type Chest pain Chest pain, unspecified Tobacco use disorder Polysubstance abuse (HCC) Other, mixed, or unspecified nondependent drug abuse, unspecified Pre-operative examination- Primary Preoperative examination, unspecified Coronary artery disease involving [place] heart without angina pectoris, unspecified vessel or [...] bronchitis with exacerbation documented in this encounter [facility] note* Diagnosis Chest pain, unspecified type- Primary Dyspnea, unspecified type Hypokalemia Hypopotassemia Leukocytosis, unspecified type Chest pain Chest pain, unspecified Tobacco use disorder Polysubstance abuse (HCC) Other, mixed, or unspecified nondependent drug abuse, unspecified Pre-operative examination- Primary Preoperative examination, unspecified Coronary artery disease involving [place] heart without angina pectoris, unspecified vessel or [...] Rosacea Mixed hyperlipidemia Coronary artery disease involving [place] coronary artery of [place] heart with angina pectoris Primary hypertension Unspecified essential hypertension COPD with chronic bronchitis (HCC) Obstructive chronic bronchitis without exacerbation Screening for diabetes mellitus Thumb pain, left documented in this encounter [facility] note* Diagnosis Chest pain, unspecified type- Primary Dyspnea, unspecified type Hypokalemia Hypopotassemia Leukocytosis, unspecified type Chest pain Chest pain, unspecified Tobacco use disorder Polysubstance abuse (HCC) Other, mixed, or unspecified nondependent drug abuse, unspecified Pre-operative examination- Primary Preoperative examination, unspecified Coronary artery disease involving [place] heart without angina pectoris, unspecified vessel or lesion type Gastroesophageal reflux disease, unspecified whether esophagitis present Anxiety state Anxiety state, unspecified Polysubstance abuse (HCC) Other, mixed, or unspecified nondependent drug abuse, unspecified Hyperlipidemia, unspecified hyperlipidemia type Tobacco use disorder Subcutaneous emphysema resulting from a procedure, sequela Primary hypertension Unspecified essential hypertension Thumb pain, left documented in this encounter [facility] note* Diagnosis Chest pain, unspecified type- Primary Dyspnea, unspecified type Hypokalemia Hypopotassemia Leukocytosis, unspecified type Chest pain Chest pain, unspecified Tobacco use disorder Polysubstance abuse (HCC) Other, mixed, or unspecified nondependent drug abuse, unspecified Pre-operative examination- Primary Preoperative examination, unspecified Coronary artery disease involving [place] heart without angina pectoris, unspecified vessel or [...] with prolonged bereavement documented in this encounter [facility] note* Diagnosis Chest pain, unspecified type- Primary Dyspnea, unspecified type Hypokalemia Hypopotassemia Leukocytosis, unspecified type Chest pain Chest pain, unspecified Tobacco use disorder Polysubstance abuse (HCC) Other, mixed, or unspecified nondependent drug abuse, unspecified Pre-operative examination- Primary Preoperative examination, unspecified Coronary artery disease involving [place] heart without angina pectoris, unspecified vessel or lesion type Gastroesophageal reflux disease, unspecified whether esophagitis present Anxiety state Anxiety state, unspecified Polysubstance abuse (HCC) Other, mixed, or unspecified nondependent drug abuse, unspecified Hyperlipidemia, unspecified hyperlipidemia type Tobacco use disorder Subcutaneous emphysema resulting from a procedure, sequela Primary hypertension Unspecified essential hypertension Rosacea- Primary documented in this encounter [facility] note* Diagnosis Chest pain, unspecified type- Primary Dyspnea, unspecified type Hypokalemia Hypopotassemia Leukocytosis, unspecified type Chest pain Chest pain, unspecified Tobacco use disorder Pre-operative examination- Primary Preoperative examination, unspecified Coronary artery disease involving [place] heart without angina pectoris, unspecified vessel or lesion type Gastroesophageal reflux disease, unspecified whether esophagitis present Anxiety state Anxiety state, unspecified Polysubstance abuse (HCC) Other, mixed, or unspecified nondependent drug abuse, unspecified Hyperlipidemia, unspecified hyperlipidemia type Tobacco use disorder Subcutaneous emphysema resulting from a procedure, sequela Primary hypertension Unspecified essential hypertension URI, acute- Primary Acute upper respiratory infections of unspecified site Screening for depression Severe depression (HCC) Depressive disorder, not elsewhere classified Primary hypertension Unspecified essential hypertension Mixed hyperlipidemia Coronary artery disease involving [place] coronary artery of [place] heart with angina pectoris Raynaud's phenomenon without gangrene COPD with chronic bronchitis (HCC) Obstructive chronic bronchitis without exacerbation Centrilobular emphysema (HCC) Other emphysema Mild intermittent asthma with acute exacerbation (HCC) Unspecified asthma, with exacerbation Gastroesophageal reflux disease, unspecified whether esophagitis present History of substance abuse (HCC) Other, mixed, or unspecified nondependent drug abuse, unspecified Generalized abdominal pain Abdominal pain, generalized Syncope, unspecified syncope type Simple endometrial hyperplasia without atypia Thrombocytosis Essential thrombocythemia Leukocytosis, unspecified type Low iron Iron deficiency anemia, unspecified Vitamin B12 deficiency Other B-complex deficiencies documented in this encounter [facility] note* Diagnosis Chest pain, unspecified type- Primary Dyspnea, unspecified type Hypokalemia Hypopotassemia Leukocytosis, unspecified type Chest pain Chest pain, unspecified Tobacco use disorder Pre-operative examination- Primary Preoperative examination, unspecified Coronary artery disease involving [place] heart without angina pectoris, unspecified vessel or lesion type Gastroesophageal reflux disease, unspecified whether esophagitis present Anxiety state Anxiety state, unspecified Polysubstance abuse (HCC) Other, mixed, or unspecified nondependent drug abuse, unspecified Hyperlipidemia, unspecified hyperlipidemia type Tobacco use disorder Subcutaneous emphysema resulting from a procedure, sequela Primary hypertension Unspecified essential hypertension Vaginal discharge- Primary Leukorrhea, not specified as infective Screen for STD (sexually transmitted disease) Screening examination for venereal disease [facility] Chest pain, unspecified type- Primary Dyspnea, unspecified type Hypokalemia Hypopotassemia Leukocytosis, unspecified type Chest pain Chest pain, unspecified Tobacco use disorder Pre-operative examination- Primary Preoperative examination, unspecified Coronary artery disease involving [place] heart without angina pectoris, unspecified vessel or lesion type Gastroesophageal reflux disease, unspecified whether esophagitis present Anxiety state Anxiety state, unspecified Polysubstance abuse (HCC) Other, mixed, or unspecified nondependent drug abuse, unspecified Hyperlipidemia, unspecified hyperlipidemia type Tobacco use disorder Subcutaneous emphysema resulting from a procedure, sequela Primary hypertension Unspecified essential hypertension Trichomonas infection- Primary Trichomoniasis, unspecified [facility] Additional Instructions No signs of kidney stone on your CT today. Is possibly already passed 1. Your lab work does show a mild anemia as well as mildly low potassium. Please follow-up with your primary care doctor about your anemia. Eat potassium rich foods to help with your potassium levels. Continue to alternate Tylenol and ibuprofen as needed for your pain.[facility] Work Phone: [facility] Work Phone: Hospital Discharge instructions Additional Instructions Your exam indicates you do not need blood transfusion and that your bleeding was most likely from a ruptured internal hemorrhoid. 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 Your labs and CAT scan look good. Follow-up with your doctor if not improving. Motrin and Tylenol for pain. Return if increasing pain or feeling worse.[facility] Work Phone: [facility] (narrative)* Diagnostic Procedure Only (Urgent) - Closed Specialty Diagnoses / Procedures Referred By Contac t Referred To Contact XR IMAGING Diagnoses Left elbow pain Procedures XR ELBOW SPECIAL VIEWS AP/LAT/OTHER LEFT RADEX ELBOW COMPLETE MINIMUM 3 VIEWS Wm Rayo MD [address] [place] [address] Xr Imaging Referral ID Status Reason Start Date Expiration Date V isits Requested Visits Authorized [id number] Closed Auto-Generate d Referral 02/01/2022 03/03/2023 1 1 [facility] for referral (narrative)* Diagnostic Procedure Only (Routine) - Pending Review Specialty Diagnoses / Procedures Referred By Contac t Referred To Contact BR IMAGING Diagnoses Encounter for screening mammogram for breast cancer Procedures ROB SCREENING SCREENING MAMMOGRAPHY BI 2-VIEW BREAST INC CAD Martinez Garcia MD [address] [place] [address] Br Imaging [address] [place] [address] Referral ID Status Reason Start Date Expiration Date Visits Requested Visits Authorized [id number] Pending Review Auto-Generat ed Referral 05/05/2022 06/04/2023 1 1 T [facility] for referral (narrative)* Diagnostic Procedure Only (Routine) - Authorized Specialty Diagnoses / Procedures Referred By Contac t Referred To Contact US IMAGING Diagnoses Dysmenorrhea Menorrhagia, premenopausal Procedures US FEMALE PELVIS TRANSVAG US TRANSVAGINAL Janelle Leahy APRN.CNM [address] [place] [address] [place] [address] Referral ID Status Reason Start Date Expiration Date Visits Requested Visits Authorized [id number] Authorized Auto-Generat ed Referral 08/04/2023 09/02/2024 1 1 [facility] for referral (narrative)* Diagnostic Procedure Only (Routine) - Closed Specialty Diagnoses / Procedures Referred By Contac t Referred To Contact US IMAGING Diagnoses Dysmenorrhea Menorrhagia, premenopausal Procedures US FEMALE PELVIS TRANSVAG US TRANSVAGINAL Janelle Leahy APRN.CNM [address] [place] [address] [place] [address] Referral ID Status Reason Start Date Expiration Date V isits Requested Visits Authorized [id number] Closed Auto-Generate d Referral 08/04/2023 09/02/2024 1 1 T [facility] for referral (narrative)* Diagnostic Procedure Only (Routine) - Pending Review Specialty Diagnoses / Procedures Referred By Contac t Referred To Contact BR IMAGING Diagnoses Encounter for screening mammogram for breast cancer Procedures ROB SCREENING SCREENING MAMMOGRAPHY BI 2-VIEW BREAST INC CAD Martinez Garcia MD [address] [place] [address] Br Imaging [address] [place] [address] Referral ID Status Reason Start Date Expiration Date Visits Requested Visits Authorized [id number] Pending Review Auto-Generat ed Referral 03/14/2024 04/13/2025 1 1 [facility] for referral (narrative)* Diagnostic Procedure Only (Urgent) - Closed Specialty Diagnoses / Procedures Referred By Contac t Referred To Contact XR IMAGING Diagnoses Left elbow pain Procedures XR ELBOW SPECIAL VIEWS AP/LAT/OTHER LEFT RADEX ELBOW COMPLETE MINIMUM 3 VIEWS Wm Rayo MD [address] [place] [address] [place] [address] Referral ID Status Reason Start Date Expiration Date V isits Requested Visits Authorized [id number] Closed Auto-Generate d Referral 02/01/2022 03/03/2023 1 1 [facility] for referral (narrative)No reason for referral information availableWMercy [facility] Work Phone: Reason for visit Narrative* Diagnostic Procedure Only (Urgent) - Closed Specialty Diagnoses / Procedures Referred By Contac t Referred To Contact XR IMAGING Diagnoses Left elbow pain Procedures XR ELBOW SPECIAL VIEWS AP/LAT/OTHER LEFT RADEX ELBOW COMPLETE MINIMUM 3 VIEWS Wm Rayo MD [address] [place] [address] [place] [address] Referral ID Status Reason Start Date Expiration Date V isits Requested Visits Authorized [id number] Closed Auto-Generate d Referral 02/01/2022 03/03/2023 1 1 [facility] for visit Narrative* Diagnostic Procedure Only (Routine) - Closed Specialty Diagnoses / Procedures Referred By Contac t Referred To Contact XR IMAGING Diagnoses Thumb pain, left Procedures XR HAND GENERAL 3V PA/LAT/OBL LEFT RADEX HAND MINIMUM 3 VIEWS Amita Pope APRN.CNP [address] [place] [address] Phone: tel: fax: [place] [address] Referral ID Status Reason Start Date Expiration Date V isits Requested Visits Authorized [id number] Closed Auto-Generate d Referral 06/18/2025 07/18/2026 1 1 [facility] Summary Purpose Family History No Family History Records Found Relationship Condition Age at Onset Recorded Date/T radha Not Specified Diabetes mellitus Unknown Arthritis Unknown Cardiac disease Unknown Gastric ulcer Unknown Malignant neoplasm Unknown Advance Directives No Advanced Directives Records FoundDocuments on File Type Date Recorded Patient Toddler Nanny Expl anation Advance Directive(s) 11/27/2020 10:53 AM Advance Directive(s) 08/29/2018 9:31 PM Advance Directive(s) 09/14/2017 8:13 PM Documents on File Type Date Recorded Patient Toddler Nanny Expl anation Advance Directive(s) 11/27/2020 10:53 AM Advance Directive(s) 08/29/2018 9:31 PM Advance Directive(s) 09/14/2017 8:13 PM Advance Directive Response Recorded Date/ Time Advance Directives No October 8:01pm Living Will No May 05, 2022 1:02am Power of Rand Maker No May 05 2 1:02am Advance Directive Response Recorded Date/ Time Advance Directives No October 8:01pm Living Will No June 25 2 8:37am Power of Rand Maker No June 25, 022 8:37am Advance Directive Response Recorded Date/ Time Advance Directives No October 7:01pm Living Will No October 08 11:29am Power of Rand Maker No October 08, 2022 11:29am Advance Directive Response Recorded Date/ Time Advance Directives No October 8:01pm Living Will No June 14, 2023 9:50pm Power of Rand Maker No June 14 9:50pm Advance Directive Response Recorded Date/ Time Advance Directives No October 8:01pm Living Will No August 01, 2023 10:24am Power of Rand Maker No July 10:24am Advance Directive Response Recorded Date/ Time Advance Directives No October 7:01pm Living Will No November 14 4 2:57pm Power of Rand Maker No November 14 024 2:57pm Advance Directive Response Recorded Date/ Time Advance Directives No October 7:01pm Living Will No December 08 6:47pm Power of Rand Maker No December 08, 2023 6:47pm Advance Directive Response Recorded Date/ Time Do you have a Healthcare Power of Rand Maker? No June 21, 2025 6:56pm Advance Directives No October 8:01pm Reason for Referral Specialty Diagnoses / Procedures Referred By Binta roberts Referred To Contact Orthopedics Diagnoses Left elbow pain Procedures CONSULT TO ORTHOPAEDICS OFFICE/OUTPATIENT [facility] 60-74 MINUTES Francy Bernard, MARYBETH.INTERNATIONAL PROJECT MANAGER [address] [place] [address] Referral ID Status Reason Start Date Expiration Date Visits Requested Visits Authorized [id number] Authorized PCP Requested Referral 03/03/2022 03/03/2023 1 1 Specialty Diagnoses / Procedures Referred By Binta roberts [facility] Diagnoses Left elbow pain Skin sensation disturbance Procedures EMG(NEURO/NI) NERVE CONDUCTION STUDIES 9-10 STUDIES Francy Bernard APRN.INTERNATIONAL PROJECT MANAGER [address] [place] [address] [facility] [address] [place] [id number] Referral ID Status Reason Start Date Expiration Date Visits Requested Visits Authorized [id number] Pending Review Auto-Generat ed Referral 03/03/2022 03/03/2023 1 1 Specialty Diagnoses / Procedures Referred By Contac t Referred To Contact [facility] [address] Diagnoses Raynaud's phenomenon without gangrene Procedures PVR ANK PRESS [facility] NON-INVAS PHYSIOLOGIC STD EXTREMITY ART 2 LEVEL Delores Chowdhury PA-C [address] [place] [address] [address] Referral ID Status Reason Start Date Expiration Date Visits Requested Visits Authorized [id number] Authorized Financial Clearance Required - Self Pay Patient Cleared - Qualified 100% FAS 03/27/2024 06/12/2024 1 1 Specialty Diagnoses / Procedures Referred By Contac t Referred To Contact [facility] Diagnoses Raynaud's phenomenon without gangrene Procedures PVR LEG [facility] NON-INVASIVE PHYSIOLOGIC STUDY EXTREMITY 3 LEVLS Delores Chowdhury PA-C [address] [place] [address] [address] Referral ID Status Reason Start Date Expiration Date Visits Requested Visits Authorized [id number] Authorized Financial Clearance Required - Self Pay [...] Chief Complaint FEMALE C/O b/l knee pain Chief Complaint Admit Date abd pain June 21, 2025 5: 07pm Health Concerns Infection Onset Date Last Indicated Resolved Time COVID-19 Confirmed 05/04/2022 05/04/2022 Infection Onset Date Last Indicated Resolved Time COVID-19 Confirmed 05/04/2022 05/04/2022 Additional Source Comments INFORMATION SOURCE (unrecogn ized section and content) DATE CREATED AUTHOR 05/02/2018 [facility] DATE CREATED AUTHOR AUTHOR'S ORGANIZ ATION 05/02/2018 [facility] DATE CREATED AUTHOR AUTHOR'S ORGANIZ ATION 05/08/2018 [facility] ([place]) DATE CREATED AUTHOR AUTHOR'S ORGANIZ ATION 10/16/2018 [facility] DATE CREATED AUTHOR AUTHOR'S ORGANIZ ATION 12/24/2022 [facility] DATE CREATED AUTHOR AUTHOR'S ORGANIZ ATION 01/14/2025 [facility] DATE CREATED AUTHOR AUTHOR'S ORGANIZ ATION 06/27/2025 [facility] DATE CREATED AUTHOR AUTHOR'S ORGANIZ ATION 09/06/2025 [facility] Source Comments (unrecognize d section and content) In the event this informatio n is protected by the Federal Confidentiality of Alcohol and Drug Abuse Patient Records regulations: The Federal rules restrict any use of the information to criminally investigate or prosecute any alcohol or drug abuse patient.[facility] the event this information is protected by the Federal Confidentiality of Alcohol and Drug Abuse Patient Records regulations: The Federal rules restrict any use of the information to criminally investigate or prosecute any alcohol or drug abuse patient.[facility] Hospital[facility] the event this information is protected by the Federal Confidentiality of Alcohol and Drug Abuse Patient Records regulations: The Federal rules restrict any use of the information to criminally investigate or prosecute any alcohol or drug abuse patient.[facility] Hospital[facility] the event this information is protected by the Federal Confidentiality of Alcohol and Drug Abuse Patient Records regulations: The Federal rules restrict any use of the information to criminally investigate or prosecute any alcohol or drug abuse patient.[facility] Hospital[facility] the event this information is protected by the Federal Confidentiality of Alcohol and Drug Abuse Patient Records regulations: The Federal rules restrict any use of the information to criminally investigate or prosecute any alcohol or drug abuse patient.[facility] Hospital[facility] the event this information is protected by the Federal Confidentiality of Alcohol and Drug Abuse Patient Records regulations: The Federal rules restrict any use of the information to criminally investigate or prosecute any alcohol or drug abuse patient.[facility] Hospital[facility] the event this information is protected by the Federal Confidentiality of Alcohol and Drug Abuse Patient Records regulations: The Federal rules restrict any use of the information to criminally investigate or prosecute any alcohol or drug abuse patient.[facility] HospitalIn the event this information is protected by the Federal Confidentiality of Alcohol and Drug Abuse Patient Records regulations: The Federal rules restrict any use of the information to criminally investigate or prosecute any alcohol or drug abuse patient.[facility] Hospital[facility] the event this information is protected by the Federal Confidentiality of Alcohol and Drug Abuse Patient Records regulations: The Federal rules restrict any use of the information to criminally investigate or prosecute any alcohol or drug abuse patient.[facility] Hospital[facility] the event this information is protected by the Federal Confidentiality of Alcohol and Drug Abuse Patient Records regulations: The Federal rules restrict any use of the information to criminally investigate or prosecute any alcohol or drug abuse patient.[facility] Hospital[facility] the event this information is protected by the Federal Confidentiality of Alcohol and Drug Abuse Patient Records regulations: The Federal rules restrict any use of the information to criminally investigate or prosecute any alcohol or drug abuse patient.[facility] Hospital[facility] the event this information is protected by the Federal Confidentiality of Alcohol and Drug Abuse Patient Records regulations: The Federal rules restrict any use of the information to criminally investigate or prosecute any alcohol or drug abuse patient.[facility] HospitalIn the event this information is protected by the Federal Confidentiality of Alcohol and Drug Abuse Patient Records regulations: The Federal rules restrict any use of the information to criminally investigate or prosecute any alcohol or drug abuse patient.[facility] HospitalIn the event this information is protected by the Federal Confidentiality of Alcohol and Drug Abuse Patient Records regulations: The Federal rules restrict any use of the information to criminally investigate or prosecute any alcohol or drug abuse patient.[facility] HospitalIn the event this information is protected by the Federal Confidentiality of Alcohol and Drug Abuse Patient Records regulations: The Federal rules restrict any use of the information to criminally investigate or prosecute any alcohol or drug abuse patient.[facility] HospitalIn the event this information is protected by the Federal Confidentiality of Alcohol and Drug Abuse Patient Records regulations: The Federal rules restrict any use of the information to criminally investigate or prosecute any alcohol or drug abuse patient.[facility] HospitalIn the event this information is protected by the Federal Confidentiality of Alcohol and Drug Abuse Patient Records regulations: The Federal rules restrict any use of the information to criminally investigate or prosecute any alcohol or drug abuse patient.[facility] HospitalIn the event this information is protected by the Federal Confidentiality of Alcohol and Drug Abuse Patient Records regulations: The Federal rules restrict any use of the information to criminally investigate or prosecute any alcohol or drug abuse patient.[facility] HospitalIn the event this information is protected by the Federal Confidentiality of Alcohol and Drug Abuse Patient Records regulations: The Federal rules restrict any use of the information to criminally investigate or prosecute any alcohol or drug abuse patient.[facility] HospitalIn the event this information is protected by the Federal Confidentiality of Alcohol and Drug Abuse Patient Records regulations: The Federal rules restrict any use of the information to criminally investigate or prosecute any alcohol or drug abuse patient.[facility] HospitalIn the event this information is protected by the Federal Confidentiality of Alcohol and Drug Abuse Patient Records regulations: The Federal rules restrict any use of the information to criminally investigate or prosecute any alcohol or drug abuse patient.[facility] HospitalIn the event this information is protected by the Federal Confidentiality of Alcohol and Drug Abuse Patient Records regulations: The Federal rules restrict any use of the information to criminally investigate or prosecute any alcohol or drug abuse patient.[facility] HospitalIn the event this information is protected by the Federal Confidentiality of Alcohol and Drug Abuse Patient Records regulations: The Federal rules restrict any use of the information to criminally investigate or prosecute any alcohol or drug abuse patient.[facility] HospitalIn the event this information is protected by the Federal Confidentiality of Alcohol and Drug Abuse Patient Records regulations: The Federal rules restrict any use of the information to criminally investigate or prosecute any alcohol or drug abuse patient.[facility] HospitalIn the event this information is protected by the Federal Confidentiality of Alcohol and Drug Abuse Patient Records regulations: The Federal rules restrict any use of the information to criminally investigate or prosecute any alcohol or drug abuse patient.[facility] HospitalIn the event this information is protected by the Federal Confidentiality of Alcohol and Drug Abuse Patient Records regulations: The Federal rules restrict any use of the information to criminally investigate or prosecute any alcohol or drug abuse patient.[facility] HospitalIn the event this information is protected by the Federal Confidentiality of Alcohol and Drug Abuse Patient Records regulations: The Federal rules restrict any use of the information to criminally investigate or prosecute any alcohol or drug abuse patient.[facility] HospitalIn the event this information is protected by the Federal Confidentiality of Alcohol and Drug Abuse Patient Records regulations: The Federal rules restrict any use of the information to criminally investigate or prosecute any alcohol or drug abuse patient.[facility] HospitalIn the event this information is protected by the Federal Confidentiality of Alcohol and Drug Abuse Patient Records regulations: The Federal rules restrict any use of the information to criminally investigate or prosecute any alcohol or drug abuse patient.[facility] HospitalIn the event this information is protected by the Federal Confidentiality of Alcohol and Drug Abuse Patient Records regulations: The Federal rules restrict any use of the information to criminally investigate or prosecute any alcohol or drug abuse patient.[facility] HospitalIn the event this information is protected by the Federal Confidentiality of Alcohol and Drug Abuse Patient Records regulations: The Federal rules restrict any use of the information to criminally investigate or prosecute any alcohol or drug abuse patient.[facility] HospitalIn the event this information is protected by the Federal Confidentiality of Alcohol and Drug Abuse Patient Records regulations: The Federal rules restrict any use of the information to criminally investigate or prosecute any alcohol or drug abuse patient.[facility] HospitalIn the event this information is protected by the Federal Confidentiality of Alcohol and Drug Abuse Patient Records regulations: The Federal rules restrict any use of the information to criminally investigate or prosecute any alcohol or drug abuse patient.[facility] HospitalIn the event this information is protected by the Federal Confidentiality of Alcohol and Drug Abuse Patient Records regulations: The Federal rules restrict any use of the information to criminally investigate or prosecute any alcohol or drug abuse patient.[facility] HospitalIn the event this information is protected by the Federal Confidentiality of Alcohol and Drug Abuse Patient Records regulations: The Federal rules restrict any use of the information to criminally investigate or prosecute any alcohol or drug abuse patient.[facility] HospitalIn the event this information is protected by the Federal Confidentiality of Alcohol and Drug Abuse Patient Records regulations: The Federal rules restrict any use of the information to criminally investigate or prosecute any alcohol or drug abuse patient.[facility] HospitalIn the event this information is protected by the Federal Confidentiality of Alcohol and Drug Abuse Patient Records regulations: The Federal rules restrict any use of the information to criminally investigate or prosecute any alcohol or drug abuse patient.[facility] HospitalIn the event this information is protected by the Federal Confidentiality of Alcohol and Drug Abuse Patient Records regulations: The Federal rules restrict any use of the information to criminally investigate or prosecute any alcohol or drug abuse patient.[facility] HospitalIn the event this information is protected by the Federal Confidentiality of Alcohol and Drug Abuse Patient Records regulations: The Federal rules restrict any use of the information to criminally investigate or prosecute any alcohol or drug abuse patient.[facility] HospitalIn the event this information is protected by the Federal Confidentiality of Alcohol and Drug Abuse Patient Records regulations: The Federal rules restrict any use of the information to criminally investigate or prosecute any alcohol or drug abuse patient.[facility] HospitalIn the event this information is protected by the Federal Confidentiality of Alcohol and Drug Abuse Patient Records regulations: The Federal rules restrict any use of the information to criminally investigate or prosecute any alcohol or drug abuse patient.[facility] HospitalIn the event this information is protected by the Federal Confidentiality of Alcohol and Drug Abuse Patient Records regulations: The Federal rules restrict any use of the information to criminally investigate or prosecute any alcohol or drug abuse patient.[facility] HospitalIn the event this information is protected by the Federal Confidentiality of Alcohol and Drug Abuse Patient Records regulations: The Federal rules restrict any use of the information to criminally investigate or prosecute any alcohol or drug abuse patient.[facility] HospitalIn the event this information is protected by the Federal Confidentiality of Alcohol and Drug Abuse Patient Records regulations: The Federal rules restrict any use of the information to criminally investigate or prosecute any alcohol or drug abuse patient.[facility] HospitalIn the event this information is protected by the Federal Confidentiality of Alcohol and Drug Abuse Patient Records regulations: The Federal rules restrict any use of the information to criminally investigate or prosecute any alcohol or drug abuse patient.[facility] HospitalIn the event this information is protected by the Federal Confidentiality of Alcohol and Drug Abuse Patient Records regulations: The Federal rules restrict any use of the information to criminally investigate or prosecute any alcohol or drug abuse patient.[facility] HospitalIn the event this information is protected by the Federal Confidentiality of Alcohol and Drug Abuse Patient Records regulations: The Federal rules restrict any use of the information to criminally investigate or prosecute any alcohol or drug abuse patient.[facility] HospitalIn the event this information is protected by the Federal Confidentiality of Alcohol and Drug Abuse Patient Records regulations: The Federal rules restrict any use of the information to criminally investigate or prosecute any alcohol or drug abuse patient.[facility] HospitalIn the event this information is protected by the Federal Confidentiality of Alcohol and Drug Abuse Patient Records regulations: The Federal rules restrict any use of the information to criminally investigate or prosecute any alcohol or drug abuse patient.[facility] HospitalIn the event this information is protected by the Federal Confidentiality of Alcohol and Drug Abuse Patient Records regulations: The Federal rules restrict any use of the information to criminally investigate or prosecute any alcohol or drug abuse patient.[facility] HospitalIn the event this information is protected by the Federal Confidentiality of Alcohol and Drug Abuse Patient Records regulations: The Federal rules restrict any use of the information to criminally investigate or prosecute any alcohol or drug abuse patient.[facility] HospitalIn the event this information is protected by the Federal Confidentiality of Alcohol and Drug Abuse Patient Records regulations: The Federal rules restrict any use of the information to criminally investigate or prosecute any alcohol or drug abuse patient.[facility] HospitalIn the event this information is protected by the Federal Confidentiality of Alcohol and Drug Abuse Patient Records regulations: The Federal rules restrict any use of the information to criminally investigate or prosecute any alcohol or drug abuse patient.[facility] HospitalIn the event this information is protected by the Federal Confidentiality of Alcohol and Drug Abuse Patient Records regulations: The Federal rules restrict any use of the information to criminally investigate or prosecute any alcohol or drug abuse patient.[facility] HospitalIn the event this information is protected by the Federal Confidentiality of Alcohol and Drug Abuse Patient Records regulations: The Federal rules restrict any use of the information to criminally investigate or prosecute any alcohol or drug abuse patient.[facility] HospitalIn the event this information is protected by the Federal Confidentiality of Alcohol and Drug Abuse Patient Records regulations: The Federal rules restrict any use of the information to criminally investigate or prosecute any alcohol or drug abuse patient.[facility] HospitalIn the event this information is protected by the Federal Confidentiality of Alcohol and Drug Abuse Patient Records regulations: The Federal rules restrict any use of the information to criminally investigate or prosecute any alcohol or drug abuse patient.[facility] HospitalIn the event this information is protected by the Federal Confidentiality of Alcohol and Drug Abuse Patient Records regulations: The Federal rules restrict any use of the information to criminally investigate or prosecute any alcohol or drug abuse patient.[facility] HospitalIn the event this information is protected by the Federal Confidentiality of Alcohol and Drug Abuse Patient Records regulations: The Federal rules restrict any use of the information to criminally investigate or prosecute any alcohol or drug abuse patient.[facility] HospitalIn the event this information is protected by the Federal Confidentiality of Alcohol and Drug Abuse Patient Records regulations: The Federal rules restrict any use of the information to criminally investigate or prosecute any alcohol or drug abuse patient.[facility] HospitalIn the event this information is protected by the Federal Confidentiality of Alcohol and Drug Abuse Patient Records regulations: The Federal rules restrict any use of the information to criminally investigate or prosecute any alcohol or drug abuse patient.[facility] HospitalIn the event this information is protected by the Federal Confidentiality of Alcohol and Drug Abuse Patient Records regulations: The Federal rules restrict any use of the information to criminally investigate or prosecute any alcohol or drug abuse patient.[facility] HospitalIn the event this information is protected by the Federal Confidentiality of Alcohol and Drug Abuse Patient Records regulations: The Federal rules restrict any use of the information to criminally investigate or prosecute any alcohol or drug abuse patient.[facility] Reason for Visit (unrecogniz ed section and content) Reason Comments Follow Up ER Reason Comments Results Reason Comments Pain (Elbow Pain) L elbow x1 week, no known cause Reason Onset Date Comments Refill Request 02/15/2022 Reason Comments Pain (Elbow Pain) LEFT elbow x 1 month Reason Onset Date Comments EMG 03/05/2022 Specialty Diagnoses / Procedures Referred By Binta t Referred To [facility] Diagnoses Left elbow pain Skin sensation disturbance Procedures EMG(NEURO/NI) NERVE CONDUCTION STUDIES 9-10 STUDIES Francy Bernard, MARYBETH.INTERNATIONAL PROJECT MANAGER [address] [place] [address] [facility] [address] [place] [address] Referral ID Status Reason Start Date Expiration Date V isits Requested Visits Authorized [id number] Closed Auto-Generate d Referral 03/04/2022 11/06/2022 1 [...] NEW HIGH MDM 60-74 MINUTES Francy Bernard, THERAPEUTIC SALES SPECIALIST.INTERNATIONAL PROJECT MANAGER [address] [place] [address] Referral ID Status Reason Start Date Expiration Date V isits Requested Visits Authorized [id number] Closed PCP Requested Referral 10/12/2022 10/12/2023 1 [...] FEMALE PELVIS TRANSVAG US TRANSVAGINAL Janelle Leahy, MARYBETH.C[address]elores [address] [address] [place] [address] Referral ID Status Reason Start Date Expiration Date V isits Requested Visits Authorized [id number] Closed Auto-Generate d Referral 08/04/2023 09/02/2024 1 [...] Comments ER F/U Reason Comments ER F/U WC 12/26/24 [place] 27/03 Reason Comments Patient Update Appointment Reason Comments Mouth/Lip Problem Thrush Sinusitis Reason Comments New Patient Reason Onset Date Comments Results 01/15/2025 Reason Comments New Patient Evaluation Specialty Diagnoses / Procedures Referred By Contac t Referred To Contact Hematology Diagnoses Leukocytosis, unspecified type Procedures CONSULT TO HEMATOLOGY OFFICE/OUTPATIENT NEW HIGH MDM 60 MINUTES Amita Pope APRN.INTERNATIONAL PROJECT MANAGER [address] [place] [address] Phone: tel: fax: Referral ID Status Reason Start Date Expiration Date V isits Requested Visits Authorized [id number] Closed PCP Requested Referral 01/15/2025 01/15/2026 1 1 Reason Onset Date Comments requesting medication that is 04/25/2025 Venlafaxine ER 150 mg 24 hr tablet Refill Request Reason Comments Ear Pain Bilateral ear pain, fever, cough, ST, and chest congestion x 2 days Reason Comments Rectal Bleeding Reason Comments Rectal Bleeding Hemorrhoids Reason Onset Date Comments Refill Request 06/26/2025 Reason Comments Insurance Authorization Metronidazole Reason Comments 6 Month Exam Cough Shortness of breath, felt cold yesterday, tired Reason Comments Vaginal Problem Care Teams (unrecognized sec tion and content) Manager Visual Relationship Specialty Start Date End Date Martinez Garcia MD [address] [place], [place] [id number] PCP - General Family Practice 08/09/12 Manager Visual Relationship Specialty Start Date End Date Martinez Garcia MD [address] [place] [address] PCP - General Family Practice 08/09/12 Manager Visual Relationship Specialty Start Date End Date Martinez Garcia MD [address] [place] [address] PCP - General Family Practice 08/09/12 Manager Visual Relationship Specialty Start Date End Date Martinez Garcia MD [address] [place] [address] PCP - General Family Practice 08/09/12 Manager Visual Relationship Specialty Start Date End Date Martinez Garcia MD [address] [place] [address] PCP - General Family Practice 08/09/12 Manager Visual Relationship Specialty Start Date End Date Martinez Garcia MD [address] [place] [address] PCP - General Family Practice 08/09/12 Manager Visual Relationship Specialty Start Date End Date Martinez Garcia MD [address] [place] [address] PCP - General Family Practice 08/09/12 Manager Visual Relationship Specialty Start Date End Date Martinez Garcia MD [address] [place] [address] PCP - General Family Practice 08/09/12 Manager Visual Relationship Specialty Start Date End Date Martinez Garcia MD [address] [place] [address] PCP - General Family Medicine 08/09/12 Manager Visual Relationship Specialty Start Date End Date Martinez Garcia MD [address] [place] [address] PCP - General Family Medicine 08/09/12 Manager Visual Relationship Specialty Start Date End Date Martinez Garcia MD [address] [place] [address] PCP - General Family Medicine 08/09/12 Manager Visual Relationship Specialty Start Date End Date Martinez Garcia MD [address] [place] [address] PCP - General Family Medicine 08/09/12 Manager Visual Relationship Specialty Start Date End Date Martinez Garcia MD [address] [place] [address] PCP - General Family Medicine 08/09/12 Manager Visual Relationship Specialty Start Date End Date Martinez Garcia MD [address] [place] [address] PCP - General Family Medicine 08/09/12 Team [...] Dr. Joseph Tomas MD Emergency Provider Active Manager Visual Relationship Specialty Start Date End Date Martinez Garcia MD [address] [place] [address] PCP - General Family Medicine 08/09/12 Team [...] Active Ej Luther MD Emergency Provider Active Manager Visual Relationship Specialty Start Date End Date Martniez Garcia MD [address] [place] [address] PCP - General Family Medicine 08/09/12 Manager Visual Relationship Specialty Start Date End Date Martinez Garcia MD [address] [place] [address] PCP - General Family Medicine 08/09/12 Manager Visual Relationship Specialty Start Date End Date Martinez Garcia MD [address] [place] [address] PCP - General Family Medicine 08/09/12 Team Status: Inactive Member Role Status Dates Dr. Martinez Garcia MD Primary Care Provider Active Ej Luther MD Attending Provider, Emergency Provid er Active Team Status: Inactive Member Role Status Dates Dr. Martinez Garcia MD Primary Care Provider Active Dr. Eduardo Lu DO Emergency Provider Active Manager Visual Relationship Specialty Start Date End Date Martinez Garcia MD [address] [place] [address] PCP - General Family Medicine 08/09/12 Team Status: Inactive Member Role Status Dates Dr. Martinez Garcia MD Primary Care Provider Active Dr. Sushma Arzola MD Emergency Provider Active Manager Visual Relationship Specialty Start Date End Date Martinez Garcia MD [address] [place] [address] PCP - General Family Medicine 08/09/12 Manager Visual Relationship Specialty Start Date End Date Martinez Garcia MD [address] [place], [place] [id number] PCP - General Family Medicine 08/09/12 Manager Visual Relationship Specialty Start Date End Date Martinez Garcia MD [address] [place] [address] PCP - General Family Medicine 08/09/12 Manager Visual Relationship Specialty Start Date End Date Martinez Garcia MD [address] [place], [place] [address] PCP - General Family Medicine 08/09/12 Manager Visual Relationship Specialty Start Date End Date Martinez Garcia MD [address] [place] [address] PCP - General Family Medicine 08/09/12 Manager Visual Relationship Specialty Start Date End Date Martinez Garcia MD [address] [facility] [place] [address] PCP - General Family Medicine 08/09/12 Manager Visual Relationship Specialty Start Date End Date Martinez Garcia MD [address] [place] [address] PCP - General Family Medicine 08/09/12 Manager Visual Relationship Specialty Start Date End Date Martinez Garcia MD [address] [place] [address] PCP - General Family Medicine 08/09/12 Manager Visual Relationship Specialty Start Date End Date Martinez Garcia MD [address] [place] [address] PCP - General Family Medicine 08/09/12 Manager Visual Relationship Specialty Start Date End Date Martinez Garcia MD [address] [place] [address] PCP - General Family Medicine 08/09/12 Francy Bernard, MARYBETH.INTERNATIONAL PROJECT MANAGER [address] [place] [address] Miniature Set Builder Family Medicine 10/15/24 Amita Pope THERAPEUTIC SALES SPECIALIST.INTERNATIONAL PROJECT MANAGER [address] [place] [address] Miniature Set Builder Family Medicine 10/15/24 Manager Visual Relationship Specialty Start Date End Date Martinez Garcia MD [address] [place] [address] PCP - General Family Medicine 08/09/12 Francy Bernard APRN.INTERNATIONAL PROJECT MANAGER [address] [place] [address] Miniature Set Builder Family Medicine 10/15/24 Amiat Pope APRN.INTERNATIONAL PROJECT MANAGER [address] [place] [address] Miniature Set Builder Family Medicine 10/15/24 Manager Visual Relationship Specialty Start Date End Date Martinez Garcia MD [address] [place] [address] PCP - General Family Medicine 08/09/12 Francy Bernard APRN.INTERNATIONAL PROJECT MANAGER [address] [place] [address] Miniature Set Builder Family Medicine 10/15/24 Amita Pope APRN.INTERNATIONAL PROJECT MANAGER [address] [place] [address] [facility]24 Manager Visual Relationship Specialty Start Date End Date Martinez Garcia MD [address] [place] [address] PCP - General Family Medicine 08/09/12 Francy Bernard APRN.INTERNATIONAL PROJECT MANAGER [address] [place] [address] Miniature Set Builder Family Medicine 10/15/24 Amita Pope APRN.INTERNATIONAL PROJECT MANAGER [address] [place] [address] Miniature Set Builder Family Medicine 10/15/24 Manager Visual Relationship Specialty Start Date End Date Martinez Garcia MD [address] [place] [address] PCP - General Family Medicine 08/09/12 Francy Bernard APRN.INTERNATIONAL PROJECT MANAGER [address] [place] [address] Miniature Set Builder Family Medicine 10/15/24 Amita Pope APRN.INTERNATIONAL PROJECT MANAGER [address] [place] [address] [facility] 10/15/24 Manager Visual Relationship Specialty Start Date End Date Martinez Garcia MD [address] [place] [address] PCP - General Family Medicine 08/09/12 Franyc Bernard APRN.INTERNATIONAL PROJECT MANAGER [address] [place] [address] Miniature Set BuilderUnitypoint [facility] Medicine 10/15/24 Amita Pope APRN.INTERNATIONAL PROJECT MANAGER [address] [place] [address] [facility] 10/15/24 Manager Visual Relationship Specialty Start Date End Date Martinez Garcia MD [address] [place] [address] PCP - General Family Medicine 08/09/12 Francy Bernard APRN.INTERNATIONAL PROJECT MANAGER [address] [place] [address] Miniature Set Builder Family Medicine 10/15/24 Amita Pope APRN.INTERNATIONAL PROJECT MANAGER [address] [facility] [place] [place] [address] [facility] 10/15/24 Manager Visual Relationship Specialty Start Date End Date Martinez Garcia MD [address] [facility] [place] [address] PCP - General Family Medicine 08/09/12 Francy Bernard APRN.INTERNATIONAL PROJECT MANAGER [address] [facility] [place] [address] Miniature Set Builder [facility] Medicine 10/15/24 Amita Pope APRN.INTERNATIONAL PROJECT MANAGER [address] [facility] [place] [address] [facility] 10/15/24 Manager Visual Relationship Specialty Start Date End Date Martinez Garcia MD [address] [facility] [place] [address] PCP - General Family Medicine 08/09/12 Francy Bernard APRN.INTERNATIONAL PROJECT MANAGER [address] [facility] [place] [address] Miniature Set Builder Family Medicine 10/15/24 Amita Pope APRN.INTERNATIONAL PROJECT MANAGER [address] [place] [address] Miniature Set BuilderUnitypoint [facility] Medicine 10/15/24 Manager Visual Relationship Specialty Start Date End Date Martinez Garcia MD [address] [facility] [place] [address] PCP - General Family Medicine 08/09/12 Francy Bernard APRN.INTERNATIONAL PROJECT MANAGER [address] [place] [address] Miniature Set Builder Family [facility] 10/15/24 Amita Pope APRN.INTERNATIONAL PROJECT MANAGER [address] [place] [address] [facility]Ad[facility] 10/15/24 Manager Visual Relationship Specialty Start Date End Date Martinez Garcia MD [address] [facility] [place] [address] PCP - General Family Medicine 08/09/12 Francy Bernard APRN.INTERNATIONAL PROJECT MANAGER [address] [facility] [place] [address] [facility] 10/15/24 Amita Pope APRN.INTERNATIONAL PROJECT MANAGER [address] [facility] [place] [address] [facility] 10/15/24 Manager Visual Relationship Specialty Start Date End Date Martinez Garcia MD [address] [place] [address] PCP - General Family Medicine 08/09/12 Francy Bernard APRN.INTERNATIONAL PROJECT MANAGER [address] [facility] [place] [address] [facility] 10/15/24 Amita Pope THERAPEUTIC SALES SPECIALIST.INTERNATIONAL PROJECT MANAGER [address] [facility] [place] [address] [facility] 10/15/24 Manager Visual Relationship Specialty Start Date End Date Martinez Garcia MD [address] [facility] [place] [address] PCP - General Family Medicine 08/09/12 Francy Bernard APRN.INTERNATIONAL PROJECT MANAGER [address] [place] [address] Miniature Set Builder Family [facility] 10/15/24 Amita Pope APRN.INTERNATIONAL PROJECT MANAGER [address] [place] [address] Mini[facility]Ad[facility] 10/15/24 Manager Visual Relationship Specialty Start Date End Date Martinez Garcia MD [address] [place] [address] PCP - General Family Medicine 08/09/12 Francy Bernard APRN.INTERNATIONAL PROJECT MANAGER [address] [place] [address] Mini[facility]Ad[facility] 10/15/24 Amita Pope THERAPEUTIC SALES SPECIALIST.INTERNATIONAL PROJECT MANAGER [address] [place] [address] [facility] 10/15/24 Manager Visual Relationship Specialty Start Date End Date Martinez Garcia MD [address] [place] [address] PCP - General Family Medicine 08/09/12 Francy Bernard THERAPEUTIC SALES SPECIALIST.INTERNATIONAL PROJECT MANAGER [address] [place] [address] [facility] 10/15/24 Amita Pope THERAPEUTIC SALES SPECIALIST.INTERNATIONAL PROJECT MANAGER [address] [place] [address] [facility] 10/15/24 Manager Visual Relationship Specialty Start Date End Date Martinez Garcia MD [address] [place], [place] [address] PCP - General Family Medicine 08/09/12 Francy Bernard, THERAPEUTIC SALES SPECIALIST.INTERNATIONAL PROJECT MANAGER [address] [place] [address] Miniature Set Builder Family Medicine 10/15/24 Amita Pope THERAPEUTIC SALES SPECIALIST.INTERNATIONAL PROJECT MANAGER [address] [facility] [place] [address] Miniature Set BuilderUnitypoint Health-[facility] Medicine 10/15/24 Team Status: Active Member Role/Relationship Status Dates Dr. Martinez Garcia MD Primary Care Provider Active Team Status: Inactive Member Role/Relationship Status Dates Dr. Martinez Garcia MD Primary Care Provider Active Start: June 21, 2025 End: June 21, 2025 Dr. Joseph Tomas MD Emergency Provider Active S tart: June 21, 2025 End: June 21, 2025 Manager Visual Relationship Specialty Start Date End Date Martinez Garcia MD [address] [place] [address] PCP - General Family Medicine 08/09/12 Francy Bernard, THERAPEUTIC SALES SPECIALIST.INTERNATIONAL PROJECT MANAGER [address] [place] [address] Miniature Set Builder Family Medicine 10/15/24 Amita Pope THERAPEUTIC SALES SPECIALIST.INTERNATIONAL PROJECT MANAGER [address] [place], [place] [address] [phone] Miniature Set BuilderUnitypoint Health-[facility] Medicine 10/15/24 Manager Visual Relationship Specialty Start Date End Date Martinez Garcia MD [address] [place], [place] [address] PCP - General Family Medicine 08/09/12 Francy Bernard APRN.INTERNATIONAL PROJECT MANAGER [address] [place] [address] Miniature Set Builder Family Medicine 10/15/24 Amita Pope APRN.INTERNATIONAL PROJECT MANAGER [address] [place] [address] Miniature Set Builder Family Medicine 10/15/24 Manager Visual Relationship Specialty Start Date End Date Martinez Garcia MD [address] [place] [address] PCP - General Family Medicine 08/09/12 Francy Bernard APRN.INTERNATIONAL PROJECT MANAGER [address] [place] [address] Miniature Set Builder Family Medicine 10/15/24 Amita Pope THERAPEUTIC SALES SPECIALIST.INTERNATIONAL PROJECT MANAGER [address] [place] [address] Miniature Set BuilderUnitypoint Health-[facility] Medicine 10/15/24 Manager Visual Relationship Specialty Start Date End Date Martinez Garcia MD [address] [place] [address] PCP - General Family Medicine 08/09/12 Francy Bernard THERAPEUTIC SALES SPECIALIST.INTERNATIONAL PROJECT MANAGER [address] [place] [address] Miniature Set Builder Family Medicine 10/15/24 Amita Pope APRN.INTERNATIONAL PROJECT MANAGER [address] [place] [address] Miniature Set Builder Family Medicine 10/15/24 Manager Visual Relationship Specialty Start Date End Date Martinez Garcia MD [address] [place], [place] [address] PCP - General Family Medicine 08/09/12 Francy Bernard APRN.INTERNATIONAL PROJECT MANAGER [address] [place], [place] [address] Miniature Set Builder [facility] 10/15/24 Amita Pope APRN.INTERNATIONAL PROJECT MANAGER [address] [place] [address] [facility] 10/15/24 Goals (unrecognized section and [...] BE BASED ON THE PRIMARY CLINICAL RECORDS. [facility]. provides no warranty or guarantee of the accuracy or completeness of information in this document.
[2025-10-25 19:48] VITALS: BP 118/60; PULSE 80; RESP 15; TEMP 36.8; O2SAT 100
== END 2025-10-25 19:48 | disposition home or self-care (01) ==
PROVIDERS: Emergency Provider Emergency Medicine; PCP Family Medicine; Visit Provider Emergency Medicine
DX: S60.221A Contusion of right hand, initial encounter (principal); I25.10 Atherosclerotic heart disease of native coronary artery without angina pectoris; I10 Essential (primary) hypertension; F32.A Depression, unspecified; Z98.51 Tubal ligation status; Z90.49 Acquired absence of other specified parts of digestive tract; F17.210 Nicotine dependence, cigarettes, uncomplicated; F12.90 Cannabis use, unspecified, uncomplicated; X50.9XXA Other and unspecified overexertion or strenuous movements or postures, initial encounter; Y93.K1 Activity, walking an animal; F41.9 Anxiety disorder, unspecified
CPT/HCPCS: 73130; 99282